=== PATIENT | female | born 1955 | race Caucasian/White ===

== ENCOUNTER → 2017-01-12 | Outpatient (CLI) | payer BC ==
[~2017-01-12] MED LIST: AC325T; ALPR.25T PO; ALPR1T PO; AMIT10TA6 PO; DICL100G18 TP; DICY10CA12 PO; ESTR0.9T PO; ESTR1.256 PO; FEXO180T PO; LEVO50TA6 PO; LEVO75TA6 PO; LORA10TA7 PO; METO-387 PO; METOPROLOL; NITR-65 PO; ONDA-42 SL; PNT40TEC; PNT40TEC PO; POTA10CA43 PO; PROM12.53 RC; SUMA1TAB PO; TRAM-42 PO; [UNRECOGNIZED DRUG - OTHER]
--- NOTE | 2017-01-16 19:01 | Diagnostic Imaging Report ---
EXAMINATION: Digital Mammogram bilateral screening with tomosynthesis. INDICATION: Screening. COMPARISON: This study was compared to the prior exams of 01/14/2016 01/06/2015, and 11/06/2007. At this time, there are no current complaints. The current study was also evaluated with a Computer Aided Detection (CAD) system. FINDINGS: The fibroglandular tissue in both breasts is heterogeneously dense. This does limit the sensitivity of this exam. Overall, there does not appear to have been any significant change when compared to the prior study. No primary or secondary sign of malignancy is noted. 3D tomographic images fail to show any sign of malignancy. IMPRESSION: There is no radiographic evidence for malignancy. ACR BI-RADS Category 1: Negative. Result letter will be mailed to the patient. Note: At least 10% of breast cancer is not imaged by mammography. Dictated by: Dictated on workstation # [id number]
== END ==
LOC: RAD 10:33
PROVIDERS: ATTEND Obstetrics & Gynecology Female Pelvic Medicine and Reconstructive Surgery
DX: Z12.31 Encounter for screening mammogram for malignant neoplasm of breast (principal)
CPT/HCPCS: 77067

== ENCOUNTER → 2017-01-19 | Outpatient (CLI) | payer BC ==
[~2017-01-19] MED LIST changes: +METO-270 PO; -METO-387 PO
--- NOTE | 2017-01-19 20:04 | Diagnostic Imaging Report ---
INDICATION: Screening for osteoporosis. EXAMINATION: DEXA scan. The bone mineral density of the hips and spine was measured. COMPARISON: There are no prior studies available for comparison. FINDINGS: The T-score for the spine is -0.7. The T-score for the left hip is -0.4 and for the right hip is -1.0. All of these T-scores are within normal limits although the T-score for the right hip is at the lowest end of normal. IMPRESSION: The bone mineral density of the hips and spine is within normal limits. Dictated by: Dictated on workstation # [id number]
== END ==
LOC: RAD 10:29
PROVIDERS: ATTEND Obstetrics & Gynecology Female Pelvic Medicine and Reconstructive Surgery
DX: Z13.820 Encounter for screening for osteoporosis (principal)
CPT/HCPCS: 77080

== ENCOUNTER → 2018-01-10 | Outpatient (CLI) | payer BC ==
[~2018-01-10] MED LIST changes: -METO-270 PO; +METO-387 PO
--- NOTE | 2018-01-10 11:40 | Diagnostic Imaging Report ---
INDICATION: Routine screening. Comparison is made with prior exam from 01/12/2017 and 01/14/2016. 2-D and 3-D bilateral screening mammography was performed with a Computer Aided Detection (CAD) system. FINDINGS: Both breasts remain heterogeneously dense, limiting the sensitivity of mammography. The parenchymal pattern is stable. There are benign calcifications bilaterally. No spiculated mass or malignant appearing microcalcifications are seen. Axillae are unremarkable. IMPRESSION: No mammographic features suspicious for malignancy are identified. ACR BI-RADS Category 2: Benign findings. Result letter will be mailed to the patient. Note: At least 10% of breast cancer is not imaged by mammography. Dictated by: Dictated on workstation # [id number]
== END ==
LOC: RAD 09:58
PROVIDERS: ATTEND Obstetrics & Gynecology Female Pelvic Medicine and Reconstructive Surgery
DX: Z12.31 Encounter for screening mammogram for malignant neoplasm of breast (principal)
CPT/HCPCS: 77067

== ENCOUNTER → 2019-02-19 | Outpatient (CLI) | payer MEDICARE, OTHER ==
[2019-02-19 09:18] VITALS: BP 127/88
--- NOTE | 2019-02-20 13:29 | STRESS TEST ---
DATE OF SERVICE: 02/19/2019 RESTING AND POST EXERCISE TECHNETIUM-99M TETROFOSMIN SPECT CT IMAGING ORDERING PHYSICIAN: Dr. Chase. PRIMARY PHYSICIAN: Dr. Johnson. CLINICAL DIAGNOSIS: Chest discomfort. Baseline images were carried out after injection of 10.4 mCi of technetium-99m Tetrofosmin. Subsequently, exercise was carried out on a treadmill. Terry protocol was employed. Heart rate response to exercise was normal. Blood pressure response to exercise was normal. At peak exercise, there was approximately 1.[address] segment depression. The test was stopped on account of fatigue. There was no significant arrhythmia. The patient did not report chest discomfort. After the patient had attained 85% of maximum predicted heart rate, 27.9 mCi of technetium-99m Tetrofosmin were injected and the exercise was continued for another minute. The patient exercised for 9 minutes in the Terry protocol and attained 96% of maximum predicted heart rate and 7.3 METS of workload. Review of images at rest and following stress does not indicate significant perfusion defect consistent with myocardial ischemia or infarction. Gated images show normal global left ventricular systolic function with normal regional wall motion. Left ventricular ejection fraction is calculated to be 71%. Left ventricular end diastolic volume is 25 mL. TID is absent (0.91). CONCLUSIONS: 1. No evidence of any significant myocardial ischemia or infarction is seen. 2. Normal regional wall motion. 3. Normal global left ventricular systolic function with a calculated ejection fraction of 71%. Job ID: [id number] DocumentID: [id number] Dictated Date: 02/20/2019 10:06:02 Production Intern Date: 02/20/2019 13:27:30 Dictated By: SONIA CHASE MD, MA, FACP, FACC,
== END ==
LOC: CARD 07:30
PROVIDERS: ATTEND Internal Medicine Cardiovascular Disease
DX: I10 Essential (primary) hypertension (principal); R73.03 Prediabetes; R07.89 Other chest pain; Z86.79 Personal history of other diseases of the circulatory system
CPT/HCPCS: 78452; 93017

== ENCOUNTER → 2019-02-20 | Outpatient (CLI) | payer MEDICARE, OTHER ==
[~2019-02-20] VITALS: Ht 160 cm; Wt 73.0 kg
[~2019-02-20] MED LIST changes: +CATHETER FLUSH 10 ML SYR IV PRN
== END ==
LOC: CARD 08:56
PROVIDERS: ATTEND Internal Medicine Cardiovascular Disease
DX: I07.1 Rheumatic tricuspid insufficiency (principal); I10 Essential (primary) hypertension; R73.03 Prediabetes; Z86.79 Personal history of other diseases of the circulatory system
CPT/HCPCS: 93306

== ENCOUNTER → 2019-04-01 | Outpatient (CLI) | payer MEDICARE, OTHER ==
[~2019-04-01] MED LIST changes: -CATHETER FLUSH 10 ML SYR IV PRN
--- NOTE | 2019-04-01 10:24 | Diagnostic Imaging Report ---
PATIENT HISTORY: DYSPNEA,UNSPECIFIED,OTHER ABNORMALITIES OF BREATHING. TECHNIQUE: Two views of the chest. COMPARISON: 06/30/2010. FINDINGS: Lung volumes are normal. No focal consolidation is seen. There is no pleural effusion or pneumothorax. The cardiac silhouette is normal in size. IMPRESSION: No acute pulmonary abnormality seen. Dictated by: Dictated on workstation # [id number]
== END ==
LOC: RAD 09:11
PROVIDERS: ATTEND Internal Medicine Critical Care Medicine
DX: R06.00 Dyspnea, unspecified (principal); R06.89 Other abnormalities of breathing
CPT/HCPCS: 71046

== ENCOUNTER 2019-04-22 14:28 | Outpatient (CLI) | payer MEDICARE, OTHER ==
[~2019-04-22 14:28] MED LIST changes: -RT-ALBUTEROL SULF 2.5 MG/3 ML PRE-MIX VIAL INH ONE
== END 2019-04-22 15:05 | disposition home or self-care (01) ==
LOC: SLEEP 14:28
PROVIDERS: ATTEND Internal Medicine Critical Care Medicine
DX: R06.89 Other abnormalities of breathing (principal); R06.83 Snoring; R06.00 Dyspnea, unspecified

== ENCOUNTER → 2019-04-22 | Outpatient (CLI) | payer MEDICARE, OTHER ==
[~2019-04-22] MED LIST changes: +RT-ALBUTEROL SULF 2.5 MG/3 ML PRE-MIX VIAL INH ONE
== END ==
LOC: RT 14:30
PROVIDERS: ATTEND Internal Medicine Critical Care Medicine
DX: R06.00 Dyspnea, unspecified (principal); R06.89 Other abnormalities of breathing
CPT/HCPCS: 94060; 94726; 94729

== ENCOUNTER → 2019-05-08 | Outpatient (CLI) | payer MEDICARE, OTHER ==
[~2019-05-08] MED LIST changes: +CATHETER FLUSH 10 ML SYR IV PRN; +HOLD METFORMIN - RECEIVED CONTRAST 20 ML VIAL IV SCH; +IOHEXOL 350 MG/ML 100 ML (OMNIPAQUE 350) VIAL IV ONE; +NS 100 ML (IVPB) BAG IV ONE
[2019-05-08 11:37] LABS: BUN/CREATININE RATIO 20; CREATININE SERUM 0.71 MG/DL (0.60-1.30); GFR ESTIMATED > 60
--- NOTE | 2019-05-08 12:45 | Diagnostic Imaging Report ---
PROCEDURE: CT angiography of the chest with contrast. TECHNIQUE: Multiple contiguous axial images were obtained through the chest after uneventful bolus administration of intravenous contrast. 3D reconstructed CTA MIP acquisitions were also performed. Auto Exposure Controls were utilized during the CT exam to meet ALARA standards for radiation dose reduction. INDICATION: Chest pain and dyspnea. COMPARISON: No prior studies are available for comparison. FINDINGS: Evaluation of the pulmonary arterial system is without evidence of thromboembolism. No filling defects are seen within central, lobar, or segmental branches. The thoracic aorta is normal caliber. No dissection is seen. No pericardial or pleural fluid is detected. No definite axillary lymphadenopathy is identified. No significant mediastinal lymphadenopathy is seen. There are mildly prominent lymph nodes in the [place] bilaterally, nonspecific, largest on the left measuring 8 mm. Minimal patchy density in the right upper lobe is identified consistent with minimal infiltrate. Dependent atelectasis in both lower lobes is noted. No mass is identified. The upper abdomen is unremarkable apart from low density within the right lobe of the liver measuring 11 mm, too small to characterize. IMPRESSION: 1. No evidence of pulmonary embolism or thoracic aortic dissection. 2. Minimal patchy right upper lobe infiltrate. Dictated by: Dictated on workstation # [id number]
--- NOTE | 2019-05-08 13:21 | Diagnostic Imaging Report ---
PROCEDURE: US Venous Lower Ext Crow. TECHNIQUE: Multiple real-time grayscale images were obtained over the lower extremities in various projections, bilaterally. Additional duplex Doppler and color Doppler images were also obtained. INDICATION: Leg swelling, dyspnea. TECHNIQUE: Grayscale with color-flow and Doppler waveform evaluation of the bilateral lower extremity deep venous systems. CORRELATION STUDY: None FINDINGS: Color and grayscale sonographic images demonstrate no intraluminal defect within the visualized portion of the common femoral, superficial femoral and/or popliteal veins to suggest thrombus formation. These vessels demonstrate normal response to compression and augmentation. No soft tissue fluid collection. IMPRESSION: 1. Negative for deep venous thrombosis of either leg. Dictated by: Dictated on workstation # [id number]
== END ==
LOC: RAD 11:08
PROVIDERS: ATTEND Nurse Practitioner Family
DX: M79.89 Other specified soft tissue disorders (principal); J45.909 Unspecified asthma, uncomplicated; Z86.79 Personal history of other diseases of the circulatory system
CPT/HCPCS: 36415; 71275; 82565; 84520; 93970

== ENCOUNTER → 2019-05-14 | Outpatient (CLI) | payer MEDICARE, OTHER ==
[~2019-05-14] MED LIST changes: -CATHETER FLUSH 10 ML SYR IV PRN; -HOLD METFORMIN - RECEIVED CONTRAST 20 ML VIAL IV SCH; -IOHEXOL 350 MG/ML 100 ML (OMNIPAQUE 350) VIAL IV ONE; -NS 100 ML (IVPB) BAG IV ONE
--- NOTE | 2019-05-14 13:18 | Diagnostic Imaging Report ---
INDICATION: Postmenopausal screening for osteoporosis. COMPARISON: 01/19/2017. FINDINGS: AP Spine L1-L4: [BMD (g/cm2): 1.101] [T-Score: -0.8] [Z-Score: 0.5] [BMD Previous: 1.121] [BMD % Change: -1.8] LT Hip Neck: [BMD (g/cm2): 0.812] [T-Score: -1.6] [Z-Score: -0.3] LT Hip Total: [BMD (g/cm2):0.943] [T-Score:-0.5] [Z-Score: 0.5] [BMD Previous: 0.953] [BMD % Change: -1.0] RT Hip Neck: [BMD (g/cm2):0.865] [T-Score:-1.2] [Z-Score:0.0] RT Hip Total: [BMD (g/cm2):0.880] [T-score:-1.0] [Z-Score:0.0] [BMD Previous:0.877] [BMD % Change:0.3] *Indicates significant change from prior examination based on 95% confidence level. World Health Organization criteria for BMD interpretation classify patients as Normal (T-score at or above -1.0), Osteopenic (T-score between -1.0 and -2.5) or Osteoporotic (T-score at or below -2.5). LIMITATIONS AND MODIFICATION: None. FRACTURE RISK (FRAX SCORE): The ten year probability of (%): Major Osteoporotic Fracture: [NA] Hip Fracture: [NA] IMPRESSION: 1. Normal bone mineral density. 2. No significant change in bone mineral density since prior examination. 3. See below National Osteoporosis Foundation guidelines on when to potentially initiate pharmacologic therapy. Based on the National Osteoporosis Foundation Guidelines, pharmacologic treatment should be initiated in any of the following, unless clinical conditions suggest otherwise: * Any patient with prior fragility fracture of the hip or vertebrae. A spine fracture indicates 5X risk for subsequent spine fracture and 2X risk for subsequent hip fracture. * Osteoporosis (T-score <-2.5). * Postmenopausal women and men age 50 and older with low bone mass/osteopenia (T-score between -1.0 and -2.5) by DXA and 10-year major osteoporotic fracture greater than 20% or a 10-year probability of hip fracture greater than 3%. These fracture risks are supplied above in the FRAX score, if applicable. * Clinician judgement and/or patient preferences may indicate treatment for people with 10-year fracture probabilities above or below these levels. Dictated by: Dictated on workstation # [id number]
== END ==
LOC: RAD 12:12
PROVIDERS: ATTEND Family Medicine
DX: Z13.820 Encounter for screening for osteoporosis (principal); M85.80 Other specified disorders of bone density and structure, unspecified site; Z78.0 Asymptomatic menopausal state
CPT/HCPCS: 77080

== ENCOUNTER 2019-08-12 23:12 | Emergency (ER) | payer MEDICARE, OTHER ==
[~2019-08-12] VITALS: Ht 160 cm; Wt 73.5 kg
[~2019-08-12 23:12] MED LIST changes: -METO-387 PO; +MTP25TSR PO
[2019-08-13 00:22] LABS: BASOPHILS % (AUTO) 1 % (0-10); EOSINOPHILS # (AUTO) 0.3 10^3/uL (0.0-0.3); EOSINOPHILS % (AUTO) 4 % (0-10); HEMATOCRIT 42 % (35-52); HEMOGLOBIN 13.6 G/DL (11.5-16.0); LYMPHOCYTES # (AUTO) 1.8 X 10^3 (1.0-4.0); LYMPHOCYTES % (AUTO) 32 % (12-44); MEAN CORPUSCULAR HEMOGLOBIN 27 PG (25-34); MEAN CORPUSCULAR HGB CONC 33 G/DL (32-36); MEAN CORPUSCULAR VOLUME 82 FL (80-99); MEAN PLATELET VOLUME 10.3 FL (7.4-10.4); MONOCYTES # (AUTO) 0.5 X 10^3 (0.0-1.0); MONOCYTES % (AUTO) 9 % (0-12); NEUTROPHILS # (AUTO) 3.1 X 10^3 (1.8-7.8); NEUTROPHILS % (AUTO) 54 % (42-75); PLATELET COUNT 223 10^3/uL (130-400); RED CELL DISTRIBUTION WIDTH 15.6 % (10.0-14.5); WHITE BLOOD COUNT 5.7 10^3/uL (4.3-11.0)
[2019-08-13 00:26] LABS: BILIRUBIN,URINE NEGATIVE (NEGATIVE); CLARITY,URINE CLEAR; COLOR,URINE YELLOW; GLUCOSE, URINE (UA) NEGATIVE (NEGATIVE); KETONES,URINE NEGATIVE (NEGATIVE); LEUKOCYTE ESTERASE ,URINE 1+ (NEGATIVE); NITRITE,URINE NEGATIVE (NEGATIVE); PH,URINE 5.5 (5-9); PROTEIN,URINE NEGATIVE (NEGATIVE)
[2019-08-13 00:39] LABS: AMORPHOUS SEDIMENT,UR RARE AMOR URATES /LPF; BACTERIA,URINE TRACE /HPF; RBC,URINE 0-2 /HPF
[2019-08-13 00:43] LABS: ALANINE AMINOTRANSFERASE 15 U/L (0-55); ALBUMIN 4.2 GM/DL (3.2-4.5); ALKALINE PHOSPHATASE 65 U/L (40-136); BILIRUBIN,TOTAL 0.2 MG/DL (0.1-1.0); BUN/CREATININE RATIO 22; CALCIUM 9.7 MG/DL (8.5-10.1); CARBON DIOXIDE 26 MMOL/L (21-32); CHLORIDE 105 MMOL/L (98-107); CREATININE SERUM 0.82 MG/DL (0.60-1.30); GFR ESTIMATED > 60; GLUCOSE 103 MG/DL (70-105); POTASSIUM 3.8 MMOL/L (3.6-5.0); SODIUM 142 MMOL/L (135-145); TOTAL PROTEIN 7.3 GM/DL (6.4-8.2)
--- NOTE | 2019-08-13 01:15 | ED Abdominal Pain ---
General Chief Complaint: Abdominal/GI Problems Stated Complaint: POSS ABD HERNIA Nursing Triage Note: Pt ambulates to RM 9 with c/o LLQ pain. Pt states she is aware she has a hernia but was told to seek care if she doesn't have relief. Sepsis Screen: No Definite Risk Source of Information: Patient Exam Limitations: No Limitations History of Present Illness Date Seen by Provider: Aug 12, 2019 Time Seen by Provider: 23:48 Initial Comments This 63-year-old woman presents to the emergency room with left lower quadrant pain that started around 20:00. She has had some less intense pain in the same area bothering her last week. She notes a hernia in this location identified on prior CT. She has been monitoring the hernia and is concerned about the increased pain today. Pain is mild now, especially with lying flat. However, it was worse earlier, especially with standing. She has had 3 soft bowel movements today. She has had some mild nausea without vomiting. She is afebrile. She denies melena or hematochezia. She does have history of colon r esection secondary to diverticulitis. Allergies and Home Medications Allergies Coded Allergies: latex (Unverified Allergy, Mild, HIVES, 05/26/06) Quinolones (Verified Allergy, Unknown, 10/05/06) Home Medications Levothyroxine Sodium 50 Mcg Tablet, 50 MCG PO DAILY, (Reported) Loratadine 10 Mg Tablet, 10 MG PO DAILY, (Reported) Metoprolol Succinate 25 Mg Tab.er.24h, 25 MG PO DAILY, (Reported) Pantoprazole Sod 40 Mg Tab, 40 MG PO DAILY, (Reported) Tramadol HCl 50 Mg Tablet, 50 MG PO Q6H PRN for PAIN Prescribed by: BRYAN TORRES on 04/21/15 1120 Patient Home Medication List Home Medication List Reviewed: Yes Review of Systems Review of Systems Constitutional: no symptoms reported EENTM: No Symptoms Reported Respiratory: No Symptoms Reported Cardiovascular: No Symptoms Reported Gastrointestinal: See HPI Genitourinary: No Symptoms Reported Musculoskeletal: no symptoms reported Skin: no symptoms reported Psychiatric/Neurological: No Symptoms Reported Endocrine: No Symptoms Reported Hematologic/Lymphatic: No Symptoms Reported Past Gzaycwp-Fdzbxo-Bfoetr Hx Past Med/Social Hx: Reviewed Nursing Past Med/Soc Hx Patient Social History Alcohol Use: Denies Use Recreational Drug Use: No Smoking Status: Never a Smoker Recent Foreign Travel: No Contact w/Someone Who Travel: No Recent Infectious Disease Expo: No Recent Hopitalizations: No Physical Abuse: No Sexual Abuse: No Mistreated: No Fear: No Immunizations Up To Date Date of Influenza Vaccine: Mar 09, 2015 Seasonal Allergies Seasonal Allergies: Yes Past Medical History Surgeries: Yes (pelvic repair after hyst) Abdominal, Adenoidectomy, Bowel Surgery (partial colon resection for treatment of diverticulitis), Breast, Cardiac, Gallbladder, Hysterectomy, Orthopedic, Tonsillectomy, Tubal Ligation Respiratory: No Cardiac: Yes (SVT--HAD ABLATION) Neurological: Yes Headaches /Migraines Reproductive Disorders: Yes Gastrointestinal: Yes (CYST ON LIVER AND A BLOOD SPOT ON LIVER) Abdominal Hernia, Gastroesophageal Reflux, Diverticulosis, Hiatal Hernia Musculoskeletal: Yes (spinal stenosis, sees Dr. Johnson) Arthritis Endocrine: Yes Hypothyroidsim Cancer: No Psychosocial: No Integumentary: No Blood Disorders: Yes Family Medical History Heart Disease, Cancer, Psychiatric Problems Physical Exam Vital Signs Vital Signs - First Documented 08/12/19 23:26 Temp 36.6 Pulse 75 Resp 20 B/P (MAP) 152/88 (109) Pulse Ox 99 O2 Delivery Room Air Capillary Refill : Less Than 3 Seconds Height/Weight/BMI Height: 5'3" Weight: 170lbs. oz. 77.435198ml; 28.00 BMI Method:Stated General Appearance: WD/WN, no apparent distress HEENT: PERRL/EOMI, normal ENT inspection Neck: normal inspection Respiratory: lungs clear, normal breath sounds, no respiratory distress, no accessory muscle use Cardiovascular: regular rate, rhythm, no edema Gastrointestinal: normal bowel sounds, soft, tenderness (left lower quadrant), hernia (suspected hernia in the left lower quadrant. Bulge is soft and mildly tender.) Extremities: normal inspection, no pedal edema Neurologic/Psychiatric: dividend clerk II-XII nml as tested, no motor/sensory deficits, alert, normal mood/affect, oriented x 3 Skin: normal color, warm/dry Progress/Results/Core Measures Results/Orders Lab Results Laboratory Tests Test 08/13/19 00:12 08/13/19 00:13 Range/Units Urine Color YELLOW Urine Clarity CLEAR Urine pH 5.5 5-9 Urine Specific [place] 1.015 L 1.016-1.022 Urine Protein NEGATIVE NEGATIVE Urine Glucose (UA) NEGATIVE NEGATIVE Urine Ketones NEGATIVE NEGATIVE Urine Nitrite NEGATIVE NEGATIVE Urine Bilirubin NEGATIVE NEGATIVE Urine Urobilinogen 0.2 < = 1.0 MG/DL Urine Leukocyte Esterase 1+ H NEGATIVE Urine RBC (Auto) TRACE-I NEGATIVE Urine RBC 0-2 /HPF Urine WBC 2-5 /HPF Urine Crystals PRESENT H /LPF Urine Amorphous Sediment RARE [place] URATES H /LPF Urine Bacteria TRACE /HPF Urine Casts NONE /LPF Urine Mucus NEGATIVE /LPF Urine Culture Indicated NO White Blood Count 5.7 4.3-11.0 10^3/uL Red Blood Count 5.14 4.35-5.85 10^6/uL Hemoglobin 13.6 11.5-16.0 G/DL Hematocrit 42 35-52 % Mean Corpuscular Volume 82 80-99 FL Mean Corpuscular Hemoglobin 27 25-34 PG Mean Corpuscular Hemoglobin Concent 33 32-36 G/DL Red Cell Distribution Width 15.6 H 10.0-14.5 % Platelet Count 223 130-400 10^3/uL Mean Platelet Volume 10.3 7.4-10.4 FL Neutrophils (%) (Auto) 54 42-75 % Lymphocytes (%) (Auto) 32 12-44 % Monocytes (%) (Auto) 9 0-12 % Eosinophils (%) (Auto) 4 0-10 % Basophils (%) (Auto) 1 0-10 % Neutrophils # (Auto) 3.1 1.8-7.8 X 10^3 Lymphocytes # (Auto) 1.8 1.0-4.0 X 10^3 Monocytes # (Auto) 0.5 0.0-1.0 X 10^3 Eosinophils # (Auto) 0.3 0.0-0.3 10^3/uL Basophils # (Auto) 0.0 0.0-0.1 10^3/uL Sodium Level 142 135-145 MMOL/L Potassium Level 3.8 3.6-5.0 MMOL/L Chloride Level 105 98-107 MMOL/L Carbon Dioxide Level 26 21-32 MMOL/L Anion Gap 11 5-14 MMOL/L Blood Urea Nitrogen 18 7-18 MG/DL Creatinine 0.82 0.60-1.30 MG/DL Estimat Glomerular Filtration Rate > 60 BUN/Creatinine Ratio 22 Glucose Level 103 70-105 MG/DL Calcium Level 9.7 8.5-10.1 MG/DL Corrected Calcium 9.5 8.5-10.1 MG/DL Total Bilirubin 0.2 0.1-1.0 MG/DL Aspartate Amino Transf (AST/SGOT) 17 5-34 U/L Alanine Aminotransferase (ALT/SGPT) 15 0-55 U/L Alkaline Phosphatase 65 40-136 U/L C-Reactive Protein High Sensitivity 0.52 H 0.00-0.50 MG/DL Total Protein 7.3 6.4-8.2 GM/DL Albumin 4.2 3.2-4.5 GM/DL My Orders Orders - BRYAN SANTIAGO MD Cbc With Automated Diff (08/13/19 00:00) Comprehensive Metabolic Panel (08/13/19 00:00) Hs C Reactive Protein (08/13/19 00:00) Ua Culture If Indicated (08/13/19 00:00) Ed Iv/Invasive Line Start (08/13/19 00:00) Vital Signs/I&O 08/12/19 08/13/19 23:26 01:26 Temp 36.6 36.6 Pulse 75 75 Resp 20 20 B/P (MAP) 152/88 (109) 145/85 (109) Pulse Ox 99 99 O2 Delivery Room Air Blood Pressure Mean: 109 Progress Progress Note : Progress Note Labs were unremarkable. Patient does not have any symptoms of obstruction. Arrangements were made for ultrasound to be obtained tomorrow morning. Departure Impression Primary Impression: Left lower quadrant pain Disposition: HOME, SELF-CARE Condition: Improved Departure-Patient Inst. Decision time for Depature: 01:13 Referrals: ARVIND MORROW DO (PCP/Family) Primary Care Physician Patient Instructions: Abdominal Hernia (DC), Acute Abdomen (Belly Pain), Adult (DC) Add. Discharge Instructions: Observe a clear liquid diet until your ultrasound is performed. Return to the hospital at 7:30 tomorrow morning. Bring your ultrasound order form. Stay at the hospital until you received further instructions after results are called to the ER doctor. Return to care if you have worsening symptoms including inability to produce gas or bowel movements, escalating pain, fever, firmness of your hernia that will not reduce, etc. You may continue taking Tylenol (acetaminophen) as needed for pain. If necessary, you may add ibuprofen up to 400 mg 2 or 3 times a day sparingly to better control your pain. All discharge instructions reviewed with patient and/or family. Voiced understanding. Copy Copies To 1: ARVIND MORROW JOSHUA T MD Aug 13, 2019 01:15
[2019-08-13 01:26] VITALS: BP 145/85
--- OUTSIDE RECORDS SUMMARY | 2019-08-15 06:03 | XMS REPORT | CCD ---
Author Author Fay Johnson D.O. 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 Name Role Phone Yaima Johnson D.O., PP Unavailable CCM Unavailable Summary Purpose Interface Exchange Insurance Providers Payer name Policy type / Coverage type Covered democrat ID Effective Begin Date Effective End Date WPS MEDIC[place] PART B [place] Medicare Part B [id number] 2018 Unknown [facility] Medicare Part B [id number] 2018 Unknown Family History Family History data not found Social History Social History Element Codes Description Effective Dates Marital status Unknown 05/16/[address]: [id number] Never smoker 04/05/2011 Allergies, Adverse Reactions, Alerts Substance Reaction Codes Entered Date Inactivated Date Status _ Unknown 11/23/2009 No Inactive Date Active * NO KNOWN FOOD ALLERGIES Unknown 11/23/2009 No Inactiv e Date Active _ Unknown 11/23/2009 No Inactive Date Active Problems Condition Codes Effective Dates Condition Status Asthma ICD-9: 493.90 ICD-10: J45.909 07/03/2019 Active Hilar lymphadenopathy ICD-9: 785.6 ICD-10: R59.0 07/03/2019 Active Hyperglycemia, unspecified ICD-9: 790.29 ICD-10: R73.9 02/17/2017 Active Hypothyroidism ICD-9: 244.9 ICD-10: E03.9 08/05/2014 Active PNEUMOCOCCAL VACCINE ICD-9: V03.82 ICD-10: Z23 07/03/2019 Active Essential (primary) hypertension ICD-9: 401.9 ICD-10: I10 03/28/2017 Active Osteopenia ICD-9: 733.90 ICD-10: M85.80 04/15/2019 Active Postmenopausal ICD-9: V49.81 ICD-10: Z78.0 04/15/2019 Active Low back pain ICD-9: 724.2 ICD-10: M54.5 01/14/2019 Active Muscle spasm of back ICD-9: 724.8 ICD-10: M62.830 01/16/2019 Active Pain in thoracic spine ICD-9: 724.1 ICD-10: M54.6 03/05/2014 Active Hematuria, unspecified ICD-9: 599.70 ICD-10: R31.9 11/01/2018 Active Left lower quadrant pain ICD-9: 789.04 ICD-10: R10.32 01/09/2019 Active Encounter for general adult medical examination withou t abnormal findings ICD-9: V70.9 ICD-10: Z00.00 11/21/2018 Active Other cervical disc degeneration, unspecified cervical region ICD-9: 722.4 ICD-10: M50.30 10/04/2018 Active Other fatigue ICD-9: 780.79 ICD-10: R53.83 11/22/2016 Active Cervicalgia ICD-9: 723.1 ICD-10: M54.2 03/28/2017 Active Impaired fasting glucose ICD-9: 790.29 ICD-10: R73.01 11/23/2016 Active Abrasion, left lower leg, sequela ICD-9: 906.2 ICD-10: S80.812S 06/21/2018 Active Radiculopathy, lumbosacral region ICD-9: 724.4 ICD-10: M54.17 04/25/2016 Active Urinary tract infection, site not specified ICD-9: 599 .0 ICD-10: N39.0 06/13/2018 Active Other dorsalgia ICD-9: 724.5 ICD-10: M54.89 05/31/2018 Active FLU VACCINE ICD-9: V04.81 ICD-10: Z23 04/21/2016 Active Other seasonal allergic rhinitis ICD-9: 477.9 ICD-10: J30.2 02/06/2018 Active Laceration of blood vessel of right index finger, init ial encounter ICD-9: 903.5 ICD-10: S65.510A 12/28/2017 Active VACCINE FOR TDAP ICD-9: V06.1 ICD-10: Z23 12/28/2017 Active Tinnitus, bilateral ICD-9: 388.31 ICD-10: H93.13 12/18/2017 Active Pulsatile tinnitus, bilateral ICD-9: 388.30 ICD-10: H93.A3 12/11/2017 Active VACCIN FOR DISEASE NEC (HPV or Zostavax) ICD-9: V05.8 ICD-10: Z23 10/04/2017 Active Gastro-esophageal reflux disease without esophagitis I CD-9: 530.81 ICD-10: K21.9 11/04/2014 Active Pain in right knee ICD-9: 719.46 ICD-10: M25.561 07/28/2016 Active Irritant contact dermatitis, unspecified cause ICD-9: 692.9 ICD-10: L24.9 03/28/2017 Active Nonscarring hair loss, unspecified ICD-9: 704.00 ICD-10: L65.9 09/26/2016 Active Other general symptoms and signs ICD-9: 780.99 ICD-10: R68.89 11/22/2016 Active 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 12/08/2015 Active Other specified diseases of liver ICD-9: 573.8 ICD-10: K76.89 12/08/2015 Active Influenza due to identified novel influenza A virus wi th other manifestations ICD-9: 488.09 ICD-10: J09.X9 09/12/2016 Active Dermatitis, unspecified ICD-9: 692.9 ICD-10: L30.9 07/28/2016 Active Incisional hernia without obstruction or gangrene ICD- 9: 553.21 ICD-10: K43.2 04/25/2016 Active Other fecal abnormalities ICD-9: 792.1 ICD-10: R19.5 01/03/2016 Active Irritant contact dermatitis due to detergents ICD-9: 6 92.0 ICD-10: L24.0 12/08/2015 Active Hepatomegaly, not elsewhere classified ICD-9: 789.1 ICD-10: R16.0 11/25/2015 Active Other specified disorders of kidney and ureter ICD-9: 591 ICD-10: N28.89 11/25/2015 Active Precordial pain ICD-9: 786.50 ICD-10: R07.2 09/10/2015 Active Nausea ICD-9: 787.02 ICD-10: R11.0 07/19/2015 Active Pain in left elbow ICD-9: 719.42 ICD-10: M25.522 05/03/2015 Active Contusion of left lower leg, sequela ICD-9: 906.3 ICD-10: S80.12XS 04/22/2015 Active Pleurodynia ICD-9: 786.50 ICD-10: R07.81 04/23/2015 Active Constipation, unspecified ICD-9: 564.00 ICD-10: K59.00 03/20/2013 Active Unspecified abdominal pain ICD-9: 789.00 ICD-10: R10.9 03/24/2015 Active Ventral hernia without obstruction or gangrene ICD-9: 553.20 ICD-10: K43.9 03/23/2015 Active Chondrocostal junction syndrome [Tietze] ICD-9: 733.6 ICD-10: M94.0 03/04/2015 Active Generalized abdominal pain ICD-9: 789.00 ICD-10: R10.84 03/05/2015 Active DISTURBANCE OF SKIN SENSATION (Paresthesia) ICD-9: 782.0 11/2011 Active DIVERTICULITIS, COLONIC ICD-9: 562.11 02/19/2015 Active Diaphoresis ICD-9: 780.8 12/24/2014 Active ABDOMINAL PAIN ICD-9: 789.00 11/26/2014 Active Contusion of leg ICD-9: 924.5 11/25/2014 Active GERD ICD-9: 530.81 11/04/2014 Active IBS ICD-9: 564.1 11/04/2014 Active Headache ICD-9: 784.0 09/01/2014 Active Leg pain ICD-9: 729.5 09/01/2014 Active HYPOTHYROIDISM ICD-9: 244.9 08/05/2014 Active DYSURIA ICD-9: 788.1 07/10/2014 Active Elevated liver enzymes ICD-9: 790.5 07/03/2014 Active SINUSITIS, ACUTE ICD-9: 461.9 06/02/2014 Active VAGINITIS ICD-9: 623.5 06/02/2014 Active Leg cramps ICD-9: 729.82 05/22/2014 Active ALLERGIC RHINITIS ICD-9: 477.9 04/08/2014 Active HYPERTENSION ICD-9: 401.9 04/08/2014 Active PAIN, LOWER BACK ICD-9: 724.2 04/08/2014 Active COUGH ICD-9: 786.2 ICD-10: R05 03/05/2014 Active Thoracic back pain ICD-9: 724.1 03/05/2014 Active Constipation ICD-9: 564.00 03/20/2013 Active Plantar fasciitis ICD-9: 728.71 02/12/2013 Active Muscle spasm ICD-9: 728.85 11/05/2012 Active Skin lesion ICD-9: 709.9 11/05/2012 Active Cervicalgia ICD-9: 723.1 10/04/2012 Active Hypertension Unknown 09/24/2012 Active Lateral epicondylitis ICD-9: 726.32 05/10/2012 Active Wrist pain ICD-9: 719.43 05/10/2012 Active DYSPHAGIA NEC ICD-9: 787.29 03/07/2012 Active Enthesopathy of the wrist and carpus ICD-9: 726.4 03/07/2012 Active MALAISE AND FATIGUE ICD-9: 780.79 12/20/2011 Active INSECT BITE HIP/LEG ICD-9: 916.4 11/22/2011 Active MIGRAINE NOS/NOT INTRCBL ICD-9: 346.90 07/06/2011 Active Rectal fissure ICD-9: 565.0 07/06/2011 Active TMJ arthritis ICD-9: 524.69 07/06/2011 Active Onychomycosis ICD-9: 110.1 05/05/2011 Active PALPITATIONS ICD-9: 785.1 03/02/2011 Active Pulmonary arterial hypertension ICD-9: 416.8 03/02/2011 Active Hyperglycemia ICD-9: 790.29 01/14/2011 Active Chest pain ICD-9: 786.50 01/05/2011 Active HEMATURIA NOS ICD-9: 599.70 11/16/2010 Active LIPOMA ICD-9: 214.9 11/16/2010 Active Greater trochanteric bursitis ICD-9: 726.5 11/04/2010 Ac tive Tachycardia ICD-9: 785.0 11/04/2010 Active BRONCHITIS, ACUTE ICD-9: 466.0 07/23/2010 Active HEMATURIA ICD-9: 599.7 06/28/2010 Active Hoarseness of voice ICD-9: 784.42 05/12/2010 Active ACUTE LARYNGITIS W/OBSTRUCT ICD-9: 464.01 04/19/2010 Acti ve URINARY TRACT INFECTION ICD-9: 599.0 04/08/2010 Active ATROPHIC VAGINITIS ICD-9: 627.3 03/09/2010 Active CYSTITIS ICD-9: 595.9 03/09/2010 Active COUGH ICD-9: 786.2 11/23/2009 Active Medications Medication Codes Instructions Start Date Stop Date Status Fill Instructions Probiotic 10 billion cell capsule RxNorm: 6529610 1 Capsule(s) O ral QD 07/03/2019 No Stop Date Active clotrimazole-betamethasone 1 %-0.05 % topical cream RxNorm: 280729 1 Application Topical two times a day to rash prn--was supposed to be cream not lotion 07/03/2019 07/03/2019 Inactive cetirizine 10 mg tablet RxNorm: 9229111 1 Tablet(s) Oral QD 020 No Stop Date Active levothyroxine 50 mcg tablet RxNorm: 234115 1 Tablet(s) Oral QD 06/0612/20/2019 Active Macrobid 100 mg capsule RxNorm: 419717 1 Capsule(s) Oral two ti mes a day 04/12/2019 04/19/2019 Inactive Toprol XL 25 mg tablet,extended release RxNorm: 565166 1 Tablet (s) PO QD 03/13/2019 09/08/2019 Active Generic For:TOPROL X L 25MG TAB SA 12/21/2015 9:08:41 AM Mobic 7.5 mg tablet RxNorm: 654467 1 Tablet(s) PO QOD opposite days as aleve 11/21/2018 11/21/2018 Inactive dicyclomine 10 mg capsule RxNorm: 563539 1 Capsule(s) P O TID as needed for abdominal pain 08/23/2018 No Stop Date Active alprazolam 0.25 mg tablet RxNorm: 554160 1 Tablet(s) PO Q8H as needed for anxiety 08/10/2018 11/20/2018 Inactive [AttnRPh: Saving apply/adjudicate RxGRP:SG20 RxBIN:[id number] RxPCN: ID#:[id number]] levothyroxine 25 mcg tablet RxNorm: 692214 1 Tablet(s) PO QD replaces 50mcg dose 08/06/2018 10/04/2018 Inactive levothyroxine 25 mcg tablet RxNorm: 615688 1 Tablet(s) PO QD replaces 50mcg dose 08/06/2018 08/05/2018 Inactive levothyroxine 50 mcg tablet RxNorm: 421275 1 Tablet(s) PO QD 201808/05/2018 Inactive Generic For:*SYNTHROID 0.05M G TAB 08/09/2016 8:59:33 AM Mobic 7.5 mg tablet RxNorm: 794624 1 Tablet(s) PO QOD opposite days as aleve 07/10/2018 09/07/2018 Inactive Mobic 7.5 mg tablet RxNorm: 352463 1 Tablet(s) PO QD 07/10/201807/09 Inactive Toprol XL 25 mg tablet,extended release RxNorm: 587490 1 Tablet (s) PO QD 06/18/2018 03/12/2019 Inactive Generic For:TOPROL X L 25MG TAB SA 12/21/2015 9:08:41 AM amoxicillin 500 mg capsule RxNorm: 180498 1 Capsule(s) PO TID 06/0406/10/2018 Inactive amoxicillin 500 mg capsule RxNorm: 249647 1 Capsule(s) PO TID 06/0406/03/2018 Inactive Skelaxin 800 mg tablet RxNorm: 145271 1 Tablet(s) PO BI D as needed for muscle spasm 05/31/2018 No Stop Date Active levothyroxine 50 mcg tablet RxNorm: 462444 1 Tablet(s) PO QD 201707/25/2018 Inactive Generic For:*SYNTHROID 0.05M G TAB 08/09/2016 8:59:33 AM Toprol XL 25 mg tablet,extended release RxNorm: 962950 1 Tablet (s) PO QD 12/19/2017 06/16/2018 Inactive Generic For:TOPROL X L 25MG TAB SA 12/21/2015 9:08:41 AM ranitidine 150 mg tablet RxNorm: 611649 1 Tablet(s) PO BID 12/12/19 05/31/2018 Inactive levothyroxine 50 mcg tablet RxNorm: 797614 1 Tablet(s) PO QD TAKE 1 TABLET BY MOUTH EVERY DAY 08/03/2017 02/02/2018 Inactive Generic For:*SYN THROID 0.05MG TAB 08/09/2016 8:59:33 AM Singulair 10 mg tablet RxNorm: 090782 1 Tablet(s) PO QHS 07/11/2017 0 09/10/2017 Inactive dicyclomine 10 mg capsule RxNorm: 036936 1 Capsule(s) P O TID as needed for abdominal pain 06/08/2017 08/22/2018 Inactive ranitidine 150 mg tablet RxNorm: 031935 1 Tablet(s) PO BID 06/08/19 18 09/05/2017 Inactive Toprol XL 25 mg tablet,extended release RxNorm: 164258 1 Tablet (s) PO QD 06/08/2017 12/19/2017 Inactive Generic For:TOPROL X L 25MG TAB SA 12/21/2015 9:08:41 AM betamethasone dipropionate 0.05 % topical cream RxNorm: 2389 20 1 Application TOP QHS 03/28/2017 10/03/2018 Inactive levothyroxine 50 mcg tablet RxNorm: 458081 1 Tablet(s) PO QD TAKE 1 TABLET BY MOUTH EVERY DAY 02/03/2017 08/01/2017 Inactive Generic For:*SYN THROID 0.05MG TAB 08/09/2016 8:59:33 AM ranitidine 150 mg tablet RxNorm: 963263 1 Tablet(s) PO BID 12/16/19 17 06/08/2017 Inactive Toprol XL 25 mg tablet,extended release RxNorm: 675378 1 Tablet (s) PO QD 12/15/2016 06/08/2017 Inactive Generic For:TOPROL X L 25MG TAB SA 12/21/2015 9:08:41 AM ranitidine 150 mg tablet RxNorm: 808717 1 Tablet(s) PO BID 11/12/19 17 12/10/2016 Inactive ranitidine 75 mg tablet RxNorm: 635516 1 Tablet(s) PO QD 10/21/2016 0 11/10/2016 Inactive ranitidine 75 mg tablet RxNorm: 420039 1 Tablet(s) PO QD 10/21/2016 0 10/20/2016 Inactive Tamiflu 75 mg capsule RxNorm: 022884 1 Capsule(s) PO BID 09/12/2016 0 09/16/2016 Inactive Promethegan 25 mg rectal suppository RxNorm: 240126 1 S uppository RTL Q4H as needed 09/12/2016 03/27/2017 Inactive levothyroxine 50 mcg tablet RxNorm: 049320 TAKE 1 TABLET BY GIDEON EVERY DAY 08/09/2016 02/03/2017 Inactive Generic For:*SYNTHRO ID 0.05MG TAB 08/09/2016 8:59:33 AM famotidine 40 mg tablet RxNorm: 406366 1 Tablet(s) PO BID 07/22/2016 10/20/2016 Inactive clotrimazole-betamethasone 1 %-0.05 % topical cream RxNorm: 833065 1 Application TOP BID to rash prn--was supposed to be cream not lotion 06/23/2016 Inactive famotidine 40 mg tablet RxNorm: 300870 1 Tablet(s) PO BID 06/23/2016 07/21/2016 Inactive Toprol XL 25 mg tablet,extended release RxNorm: 975779 1 Tablet (s) PO QD 06/14/2016 12/15/2016 Inactive Generic For:TOPROL X L 25MG TAB SA 12/21/2015 9:08:41 AM dicyclomine 10 mg capsule RxNorm: 782912 1 Capsule(s) P O TID as needed for abdominal pain 04/26/2016 06/07/2017 Inactive dicyclomine 10 mg capsule RxNorm: 584263 1 Capsule(s) P O TID as needed for abdominal pain 04/26/2016 06/08/2017 Inactive famotidine 40 mg tablet RxNorm: 360175 1 Tablet(s) PO QD 04/26/2016 0 06/22/2016 Inactive Protonix 40 mg tablet,delayed release RxNorm: 744334 1 Tablet(s ) PO QD 02/05/2016 03/27/2017 Inactive levothyroxine 50 mcg tablet RxNorm: 977524 1 Tablet(s) PO QD 201507/22/2016 Inactive Toprol XL 25 mg tablet,extended release RxNorm: 168648 TAKE ONE TABLET BY MOUTH EVERY DAY 12/21/2015 06/14/2016 Inactive Generic For:TOPR OL XL 25MG TAB SA 12/21/2015 9:08:41 AM Protonix 40 mg tablet,delayed release RxNorm: 246826 1 Tablet(s ) PO QD 07/27/2015 01/22/2016 Inactive levothyroxine 50 mcg tablet RxNorm: 239853 1 Tablet(s) PO QD 201501/17/2016 Inactive Phenergan 25 mg rectal suppository RxNorm: 443471 1 Sup pository RTL Q4H as needed for nausea and vomiting 07/20/2015 12/08/2015 Inactive Toprol XL 25 mg tablet,extended release RxNorm: 921916 1 Tablet (s) PO QD 06/15/2015 12/11/2015 Inactive clotrimazole-betamethasone 1 %-0.05 % topical cream RxNorm: 477171 1 Application TOP BID to rash prn--was supposed to be cream not lotion 05/20/2015 Inactive Protonix 40 mg tablet,delayed release RxNorm: 606108 1 Tablet(s) 1 Tablet(s) PO QD 04/23/2015 07/27/2015 Inactive levothyroxine 50 mcg tablet RxNorm: 334153 1 Tablet(s) PO QD 201407/21/2015 Inactive Lidoderm 5 % (700 mg/patch) adhesive patch RxNorm: 4746202 1-2 Unit Dose TOP QD on for 12hrs then off for 12hrs 04/23/2015 03/27/2016 Inactive Miralax 17 gram oral powder packet RxNorm: 515348 1/2 U nit Dose PO every other day 03/24/2015 03/29/2015 Inactive levothyroxine 50 mcg tablet RxNorm: 723739 1 Tablet(s) PO QD 201404/19/2015 Inactive dicyclomine 10 mg capsule RxNorm: 896886 1 Capsule(s) P O TID as needed for abdominal pain 02/19/2015 04/25/2016 Inactive dicyclomine 10 mg capsule RxNorm: 163364 1 Capsule(s) P O TID as needed for abdominal pain 12/25/2014 02/18/2015 Inactive Protonix 40 mg tablet,delayed release RxNorm: 790733 1 Tablet(s ) PO BID 12/25/2014 03/04/2015 Inactive levothyroxine 50 mcg tablet RxNorm: 526552 1 Tablet(s) PO QD 201402/18/2015 Inactive Flonase 50 mcg/actuation nasal spray,suspension RxNorm: 8963 23 2 [place] NASAL QHS 12/25/2014 10/03/2018 Inactive [SAVINGS FOR NON -COVERED DRUGS -- BIN:[id number], PCN: ASPROD1, Group: [id number], ID# [id number], Questions: . THIS IS NOT INSURANCE.] Toprol XL 25 mg tablet,extended release RxNorm: 369493 1 Tablet (s) PO QD 12/01/2014 05/29/2015 Inactive dicyclomine 10 mg capsule RxNorm: 361326 1 Capsule(s) P O TID as needed for abdominal pain 12/01/2014 12/24/2014 Inactive levothyroxine 75 mcg tablet RxNorm: 569627 1 Tablet(s) PO QD 201412/24/2014 Inactive [AttnRPh: Saving apply/adjud icate RxGRP:SG20 RxBIN:[id number] RxPCN: ID#:[id number]] Protonix 40 mg tablet,delayed release RxNorm: 653125 1 Tablet(s) BID 1 Tablet(s) PO QD 11/04/2014 12/24/2014 Inactive dicyclomine 10 mg capsule RxNorm: 433915 1 Capsule(s) P O TID as needed for abdominal pain 11/04/2014 11/30/2014 Inactive Protonix 40 mg tablet,delayed release RxNorm: 559485 Ta blet(s) 1 Tablet(s) PO QD 10/14/2014 11/03/2014 Inactive Flonase 50 mcg/actuation nasal spray,suspension RxNorm: 8963 23 2 [place] NASAL QHS 09/01/2014 12/24/2014 Inactive [SAVINGS FOR NON -COVERED DRUGS -- BIN:[id number], PCN: ASPROD1, Group: XXXXX, ID# [id number], Questions: . THIS IS NOT INSURANCE.] Toprol XL 25 mg tablet,extended release RxNorm: 139983 Tablet(s) 1/2 Tablet(s) PO QD 08/28/2014 11/25/2014 Inactive [SAVINGS FOR UNI NSURED PATIENTS -- BIN:116791, PCN: ASPROD1, Group: [id number], ID# [id number], Process claim through [employer], for questions: . THIS IS NOT INSURANCE.] estradiol 0.01% (0.1 mg/gram) vaginal cream RxNorm: 040988 1 Gram(s) VAG Insert vaginally at bedtime, Monday, Monday and Monday06/26/2014 5 Inactive Toprol XL 25 mg tablet,extended release RxNorm: 775378 1/2 Tabl et(s) PO QD 06/06/2014 08/27/2014 Inactive [SAVINGS FOR UNINSUR ED PATIENTS -- BIN:905094, PCN: [id number], Group: [id number], ID# [id number], Process claim through [employer], for questions: . THIS IS NOT INSURANCE.] estradiol 0.5 mg tablet RxNorm: 762778 1 Tablet(s) VAG Place one tablet in the vagina at bedtime three times a week 06/02/2014 06/25/2014 Inactive Estring 2 mg vaginal RxNorm: 076625 VAG Insert vaginall y and remove after 90 days 05/27/2014 06/01/2014 Inactive Toprol XL 25 mg tablet,extended release RxNorm: 941057 1/2 Tabl et(s) PO QD 04/15/2014 04/14/2014 Inactive Protonix 40 mg tablet,delayed release RxNorm: 809848 1 Tablet(s ) PO QD 04/15/2014 10/14/2014 Inactive estradiol 0.5 mg tablet RxNorm: 634464 1 Tablet(s) VAG Place one tablet in the vagina at bedtime twice a week 04/15/2014 06/01/2014 Inactive Toprol XL 25 mg tablet,extended release RxNorm: 079125 1/2 Tabl et(s) PO QD 04/15/2014 06/05/2014 Inactive [SAVINGS FOR UNINSUR ED PATIENTS -- BIN:915397, PCN: ASPROD1, Group: [id number], ID# [id number], Process claim through [employer], for questions: . THIS IS NOT INSURANCE.] levothyroxine 75 mcg tablet RxNorm: 087491 1 Tablet(s) PO QD 201304/07/2014 Inactive [AttnRPh: Saving apply/adjud icate RxGRP:SG20 RxBIN:[id number] RxPCN: ID#:[id number]] Flonase 50 mcg/actuation nasal spray,suspension RxNorm: 8963 23 1 [place] NASAL BID 04/08/2014 08/31/2014 Inactive levothyroxine 75 mcg tablet RxNorm: 227026 1 Tablet(s) PO QD 201310/04/2014 Inactive [AttnRPh: Saving apply/adjud icate RxGRP:SG20 RxBIN:[id number] RxPCN:HT ID#:[id number]] estradiol 0.5 mg tablet RxNorm: 371794 Tablet(s) PO Debra ce one tablet in the vagina at bedtime one time weekly 04/08/2014 04/07/2014 Inactive levothyroxine 75 mcg tablet RxNorm: 078080 1 Tablet(s) PO QD 201304/07/2014 Inactive [AttnRPh: Saving apply/adjud icate RxGRP:SG20 RxBIN:[id number] RxPCN: ID#:[id number]] Skelaxin 800 mg tablet RxNorm: 656428 1 Tablet(s) PO TI D as needed for muscle spasm 03/05/2014 11/03/2014 Inactive alprazolam 0.25 mg tablet RxNorm: 566655 1 Tablet(s) PO Q8H as needed for anxiety 02/27/2014 08/05/2018 Inactive [AttnRPh: Saving apply/adjudicate RxGRP:SG20 RxBIN:[id number] RxPCN:HT ID#:[id number]] Synthroid 75 mcg tablet RxNorm: 219557 1 Tablet(s) PO QD 11/29/2013 0 11/03/2014 Inactive levothyroxine 75 mcg tablet RxNorm: 102188 1 Tablet(s) PO QD -N eed labs 11/27/2013 03/19/2014 Inactive [AttnRPh: Saving jessica ly/adjudicate RxGRP:SG20 RxBIN:[id number] RxPCN: ID#:[id number]] Protonix 40 mg tablet,delayed release RxNorm: 498113 1 Tablet(s ) PO QD 10/07/2013 04/04/2014 Inactive Synthroid 75 mcg tablet RxNorm: 849967 1 Tablet(s) PO QD 09/02/2013 0 11/28/2013 Inactive Zithromax 500 mg tablet RxNorm: 823334 1 Tablet(s) PO QD 07/29/2013 0 08/04/2013 Inactive prednisone 20 mg tablet RxNorm: 665428 1 Tablet(s) PO QD 07/29/2013 0 08/02/2013 Inactive Synthroid 75 mcg tablet RxNorm: 994075 1 Tablet(s) PO Q D Patient wants it put on hold 05/14/2013 09/02/2013 Inactive Synthroid 75 mcg tablet RxNorm: 346440 1 Tablet(s) PO QD 05/01/2013 1 07/14/2012 Inactive Flagyl 500 mg tablet RxNorm: 522914 1 Tablet(s) PO BID 03/20/2013 Inactive Cipro 500 mg tablet RxNorm: 968499 1 Tablet(s) PO QD 03/20/201304/02 Inactive levothyroxine 75 mcg tablet RxNorm: 729301 1 Tablet(s) PO QD 201205/03/2013 Inactive Septra DS 800 mg-160 mg tablet RxNorm: 305283 1 Tablet(s) PO BI D antibiotic 11/05/2012 11/09/2012 Inactive Bystolic 5 mg tablet RxNorm: 873922 1 Tablet(s) PO QD 10/10/201208/2018 Inactive Bystolic 5 mg tablet RxNorm: 132241 1 Tablet(s) PO QD 10/10/20120 02/2013 Inactive Protonix 40 mg tablet,delayed release RxNorm: 718543 1 Tablet(s ) PO QD 09/24/2012 09/18/2013 Inactive Synthroid 75 mcg tablet RxNorm: 492130 1 Tablet(s) PO QD 08/01/2012 0 09/23/2012 Inactive Synthroid 75 mcg tablet RxNorm: 552517 1 Tablet(s) PO QD Brand name only 07/03/2012 07/31/2012 Inactive Skelaxin 800 mg tablet RxNorm: 664451 1 Tablet(s) PO TID prn spasm 05/02/2012 03/04/2014 Inactive Zithromax Z-Leonel 250 mg tablet RxNorm: 375227 Tablet(s) PO As Di rected 04/12/2012 05/01/2012 Inactive levothyroxine 75 mcg tablet RxNorm: 668116 1 Tablet(s) PO QD 201108/05/2018 Inactive levothyroxine 75 mcg tablet RxNorm: 087924 1 Tablet(s) PO QD 201107/01/2012 Inactive Ultram 50 mg tablet RxNorm: 338997 1-2 Tablet(s) PO TID as need ed for migraine 04/03/2012 11/03/2014 Inactive Vimovo 500 mg-20 mg tablets,immediate & delayed release RxNo rm: 163772 1 Tablet(s) PO BID for pain 03/28/2012 07/25/2012 Inactive levothyroxine 75 mcg tablet RxNorm: 740992 1 Tablet(s) PO QD 201104/02/2012 Inactive levothyroxine 50 mcg tablet RxNorm: 139114 1 Tablet(s) PO QD 201109/23/2012 Inactive levothyroxine 50 mcg tablet RxNorm: 404377 1 Tablet(s) PO QD 201101/31/2012 Inactive Septra DS 800 mg-160 mg Tab RxNorm: 705239 1 Tablet(s) PO BID 11/2111/26/2011 Inactive mupirocin 2 % Ointment RxNorm: 700751 1 Application TOP TID 012 11/28/2011 Inactive Protonix 40 mg tablet,delayed release RxNorm: 031360 1 Tablet(s ) PO QD 09/13/2011 09/24/2012 Inactive hydrocodone-acetaminophen 5 mg-500 mg Tab RxNorm: 786377 1 Tablet(s) PO Q4-6H as needed for pain 07/13/2011 11/21/2011 Inactive Skelaxin 800 mg tablet RxNorm: 951108 1 Tablet(s) PO TID prn spasm 06/30/2011 11/21/2011 Inactive Skelaxin 800 mg Tab RxNorm: 431428 1 Tablet(s) PO TID prn spasm No Stop Date Active potassium chloride ER 10 mEq Cap RxNorm: 6218639 2 Capsule(s) PO QD 12/30/2010 01/30/2011 Inactive potassium chloride ER 10 mEq Cap RxNorm: 5270656 1 Capsule(s) PO QD 12/29/2010 12/29/2010 Inactive Take 2 tablets by mouth on M , Monday, Monday and 1 tablet by mouth on Monday, , Monday and Monday Premarin 0.9 mg Tab RxNorm: 837711 1 Tablet(s) PO QD 12/09/201001/07 Inactive potassium chloride ER 10 mEq Cap RxNorm: 1213367 1 Capsule(s) PO QD 12/07/2010 No Stop Date Active Take 2 tablets by mouth on M , Monday, Monday and 1 tablet by mouth on Monday, , Monday and Monday promethazine 12.5 mg Rectal Suppository RxNorm: 781767 1 Applic ation RTL Q6-8H 12/07/2010 12/16/2010 Inactive prn nausea and vomit ing potassium chloride ER 10 mEq Cap RxNorm: 1732329 1 Capsule(s) PO QD 12/03/2010 No Stop Date Active MWF take 2 tablets daily. T nighat one tablet daily on other days. Protonix 40 mg Tab RxNorm: 539564 1 Tablet(s) PO QD 09/27/20102011 Inactive cefdinir 300 mg Cap RxNorm: 737104 2 Capsule(s) PO QD 08/05/201007/2010 Inactive cefdinir 300 mg Cap RxNorm: 292887 2 Capsule(s) PO QD 08/05/201008/03 Inactive Premarin 1.25 mg Tab RxNorm: 089573 1 Tablet(s) PO QD 06/14/201012/2010 Inactive lisinopril-hydrochlorothiazide 10 mg-12.5 mg Tab RxNorm: 753220 1 Tablet(s) PO 06/07/2010 11/04/2010 Inactive alprazolam 0.25 mg Tab RxNorm: 795191 1 Tablet(s) PO TI D written script provided to patient. 05/24/2010 06/22/2010 Inactive Treximet 85 mg-500 mg Tab RxNorm: 045196 1 Tablet(s) PO PRN 010 09/23/2012 Inactive lisinopril-hydrochlorothiazide 20 mg-12.5 mg Tab RxNorm: 197 886 1 Tablet(s) PO QD 05/12/2010 11/04/2010 Inactive alprazolam 0.25 mg Tab RxNorm: 616063 1 Tablet(s) PO TI D written script provided to patient. 04/19/2010 05/23/2010 Inactive Macrobid 100 mg Cap RxNorm: 3663406 1 Capsule(s) PO BID 04/08/2010 Inactive Premarin 1.25 mg Tab RxNorm: 475856 1 Tablet(s) PO QD 03/22/201002/2011 Inactive Amitriptyline 10 mg Tab RxNorm: 024369 1 Tablet(s) PO QD 03/22/2010 0 06/19/2010 Inactive Protonix 40 mg Tab RxNorm: 732553 1 Tablet(s) PO QD 03/22/20102010 Inactive alprazolam 0.25 mg Tab RxNorm: 432441 1 Tablet(s) PO TID 03/10/2010 1 06/08/2009 Inactive Macrobid 100 mg Cap RxNorm: 3675797 1 Capsule(s) PO QD 03/09/2010 Inactive Bystolic 5 mg Tab RxNorm: 650836 1 Tablet(s) PO QD Fi ll at 30 if insurance will not accept 03/01/2010 11/04/2010 Inactive Protonix 40 mg Tab RxNorm: 716968 1 Tablet(s) PO QD 11/23/20092009 Inactive Premarin 1.25 mg Tab RxNorm: 881528 1 Tablet(s) PO QD 11/23/200912/03 Inactive Bentyl 10 mg Cap RxNorm: 922504 1 Capsule(s) PO QID 11/23/20092010 Inactive Elavil 10 mg Tab RxNorm: 979875 1 Tablet(s) PO QPM 11/19/2009 011 Inactive Estrace 0.01% (0.1 mg/gram) vaginal cream RxNorm: 992601 1 Application VAG weekly No Start Date Active Protonix 40 mg tablet,delayed release RxNorm: 780907 1 Tablet(s ) PO QD No Start Date Active fluticasone propionate 50 mcg/actuation nasal spray,suspensi on RxNorm: 5322353 2 [place] NASAL QD No Start Date Active Vitamin D3 2,000 unit tablet RxNorm: 750630 1 Tablet(s) PO QD No Star t Date Active BIOFREEZE Top RxNorm: Topical No Start Date Active multivitamin chewable tablet RxNorm: 1 Tablet(s) PO QD No Start Date Active Estring 2 mg vaginal RxNorm: 012118 VAG Insert vaginall y and remove after 90 days No Start Date 05/26/2014 Inactive Premarin 0.625 mg tablet RxNorm: 611960 1 Tablet(s) PO QD No Start Date 04/07/2014 Inactive Miralax 17 gram/dose oral powder RxNorm: 887205 1 capful PO QD No S tart Date 08/05/2018 Inactive diazepam 5 mg tablet RxNorm: 213352 2 Tablet(s) PO before MRI No St art Date 10/03/2018 Inactive Protonix 40 mg tablet,delayed release RxNorm: 868819 1 Tablet(s ) PO QD No Start Date 07/26/2015 Inactive B12 sublingual RxNorm: 82331 sublingual No Start Date 03/27/2017 Inact adrian Treximet 85 mg-500 mg Tab RxNorm: 449776 Tablet(s) PO PRN No Start Date 05/11/2010 Inactive Gemma 180 mg Tab RxNorm: 090167 1 Tablet(s) PO QD No Start Date Inactive Cranberry Concentrate capsule RxNorm: 1 Capsule(s) PO QD No St art Date 07/02/2019 Inactive Gemma Allergy 180 mg tablet RxNorm: 283613 1 Tablet(s) PO QD No S tart Date 08/31/2014 Inactive estradiol 0.01% (0.1 mg/gram) vaginal cream RxNorm: 588616 1 Gram(s) VAG Insert vaginally at bedtime, Monday, Monday and Monday No Start Date 5 Inactive Tylenol Ex Str Arthritis Pain 500 mg tablet RxNorm: 008525 2 Ta blet(s) PO TID No Start Date 08/05/2018 Inactive Toprol XL 25 mg tablet,extended release RxNorm: 619093 1 Tablet (s) PO QD No Start Date 11/30/2014 Inactive Ultram 50 mg tablet RxNorm: 553434 1-2 Tablet(s) PO TID as need ed for migraine No Start Date 04/02/2012 Inactive Premarin 0.9 mg Tab RxNorm: 780010 1 Tablet(s) PO QD No Start Date Inactive Xyzal 5 mg tablet RxNorm: 457513 1 Tablet(s) PO QD No Start Date 06/06 Inactive Bystolic 5 mg Tab RxNorm: 087133 1/2 Tablet(s) PO QD No Start Date Inactive Ondansetron HCl 4 mg Tab RxNorm: 888574 1 Tablet(s) PO TID or every 8hrs as needed for nausea No Start Date 11/21/2011 Inactive Protonix 40 mg tablet,delayed release RxNorm: 197393 1 Tablet(s ) PO BID No Start Date 12/24/2014 Inactive potassium chloride ER 10 mEq Cap RxNorm: 4280554 1 Capsule(s) PO QD No Start Date 12/02/2010 Inactive Miralax 17 gram/dose oral powder RxNorm: 160808 1 capful PO QD No S tart Date 03/29/2015 Inactive levothyroxine 75 mcg tablet RxNorm: 318022 1 Tablet(s) PO QD si x days a week No Start Date 12/24/2014 Inactive Cenestin 1.25 mg Tab RxNorm: 836898 1 Tablet(s) PO QD No Start Date 0 01/03/2010 Inactive calcium-vitamin D3 500 mg oral wafer RxNorm: 1 Tablet(s) PO QD No Start Date 12/08/2015 Inactive Vimovo 500 mg-20 mg tablet,immediate & delayed release RxNor m: 978742 1 Tablet(s) PO QD No Start Date 11/03/2014 Inactive alprazolam 0.25 mg tablet RxNorm: 888970 1 Tablet(s) PO Q8H as needed for anxiety/stress No Start Date 12/24/2014 Inactive levothyroxine 50 mcg tablet RxNorm: 340224 1 Tablet(s) PO QD No Sta rt Date 06/23/2019 Inactive betamethasone dipropionate 0.05 % topical cream RxNorm: 2389 20 1 Application TOP QHS No Start Date 03/27/2017 Inactive meloxicam 15 mg tablet RxNorm: 960603 1 Tablet(s) PO QD as needed N o Start Date 04/11/2019 Inactive cetirizine 10 mg capsule RxNorm: 8311475 1 Capsule(s) PO QD No Star t Date 09/10/2017 Inactive Skelaxin 800 mg Tab RxNorm: 237600 Tablet(s) PO PRN No Start Date Inactive Zithromax Z-Leonel 250 mg tablet RxNorm: 646594 Tablet(s) PO As Di rected No Start Date 04/11/2012 Inactive Zithromax Z-Leonel 250 mg Tab RxNorm: 145828 Tablet(s) PO as direc sheridan No Start Date 11/15/2010 Inactive Gemma 180 mg tablet RxNorm: 466773 1 Tablet(s) PO QD No Start Date 12/24/2014 Inactive Anusol-HC 2.5 % Rectal Cream RxNorm: 586280 Application RTL BID for 1wk No Start Date 12/19/2011 Inactive metoprolol succinate ER 25 mg 24 hr Tab RxNorm: 184246 1/2 Tabl et(s) PO QD No Start Date 10/03/2012 Inactive clotrimazole-betamethasone 1 %-0.05 % Lotion RxNorm: 838307 Application TOP BID to rash No Start Date 05/15/2011 Inactive ranitidine 150 mg tablet RxNorm: 408098 1 Tablet(s) PO QD No Start Date 12/06/2018 Inactive ranitidine 150 mg tablet RxNorm: 243535 1 Tablet(s) PO BID No Start Date 11/10/2016 Inactive promethazine 12.5 mg Rectal Suppository RxNorm: 964801 1 Applic ation RTL Q6-8H No Start Date 12/06/2010 Inactive Maxalt-CLOTH DYER 10 mg disintegrating tablet RxNorm: 648768 1 Tablet(s) PO at headache onset--may repeat in 2hrs if needed No Start Date 12/24/2014 Inactive Benadryl 25 mg capsule RxNorm: 8973420 Capsule(s) PO as needed No S tart Date 12/24/2014 Inactive Cranberry Concentrate 500 mg capsule RxNorm: 998932 1 Capsule(s ) PO QD No Start Date 09/10/2017 Inactive Mobic 15 mg tablet RxNorm: 244313 1 Tablet(s) PO on opposite da ys of Victor Manuel No Start Date 11/20/2018 Inactive Bystolic 5 mg tablet RxNorm: 383992 1 Tablet(s) PO QD No Start Date 0 10/09/2012 Inactive Premarin 1.25 mg Tab RxNorm: 401767 1 Tablet(s) PO QD No Start Date 1 Inactive clotrimazole-betamethasone 1 %-0.05 % topical cream RxNorm: 468819 Application TOP BID to rash prn--was supposed to be cream not lotion No Start Date 12/19/2011 Inactive azithromycin 250 mg Tab RxNorm: 772359 2 Tablet(s) PO Q D take 2 tablets (500 mg) by oral route once daily for 1 day then 1 tablet (250 mg) by oral route once daily for 4 days No Start Date 06/06/2010 Inactive hydrocodone-acetaminophen 5 mg-500 mg Tab RxNorm: 172704 1 Tablet(s) PO Q4-6H as needed for pain No Start Date 07/12/2011 Inactive Levbid 0.375 mg 12 hr Tab RxNorm: 3438607 1 Tablet(s) PO BID as needed for stomach cramping No Start Date 11/21/2011 Inactive Phenergan 25 mg rectal suppository RxNorm: 504005 1 Sup pository RTL Q4H as needed for nausea and vomiting No Start Date 07/19/2015 Inactive baclofen 10 mg tablet RxNorm: 060473 1 Tablet(s) PO QHS No Start Da te 11/03/2014 Inactive loratadine 10 mg tablet RxNorm: 495355 1 Tablet(s) PO QD No Start D ate 10/03/2018 Inactive famotidine 40 mg tablet RxNorm: 081789 1 Tablet(s) PO BID No Start Date 06/22/2016 Inactive Zithromax Z-Leonel 250 mg Tab RxNorm: 557060 Tablet(s) PO as direc sheridan No Start Date 11/15/2010 Inactive Singulair 10 mg tablet RxNorm: 640231 1 Tablet(s) PO QHS No Start D ate 07/10/2017 Inactive Premarin 0.625 mg/g Vaginal Cream RxNorm: 587917 1 Gram (s) VAG QHS 2-3 times weekly No Start Date 01/05/2011 Inactive Alprazolam 0.25 mg Tab RxNorm: 115633 1 Tablet(s) PO TID No Start D ate 03/09/2010 Inactive Claritin 10 mg tablet RxNorm: 295477 1 Tablet(s) PO QD No Start Date 11/03/2014 Inactive Medication Administered No Medication Administered data Immunizations Vaccine Codes Date Status Pneumococcal CVX: 133 07/03/2019 Complete Influenza CVX: 141 03/22/2018 Complete Tetanus, Diptheria, Pertussis CVX: 115 12/28/2017 Co mplete Zoster Unknown 10/04/2017 Complete Influenza CVX: 141 03/28/2017 Complete Influenza CVX: 141 04/22/2016 Complete Influenza CVX: 141 03/09/2015 Influenza CVX: 141 06/29/2011 Pediatric Influenza CVX: 141 06/29/2011 Influenza (Adult) CVX: 141 03/09/2010 Results Observation Observation Code Item Item Code Result Date S ervice Location GFR CALC 4197765 GFR AA >60 ML/MIN 01/14/2011 Unknown GFR CALC 4068391 GFR NON-AA >60 ML/MIN 01/14/2011 Unknown COMPREHENSIVE METABOLIC 46879 AST 15 U/L 2010 Unknown COMPREHENSIVE METABOLIC 94750 ALT 17 IU/L 2010 Unknown COMPREHENSIVE METABOLIC 29655 BUN 12 MG/DL 2010 Unknown COMPREHENSIVE METABOLIC 55424 ALBUMIN 4.0 GM/DL 2010 Unknown COMPREHENSIVE METABOLIC 68013 CHLORIDE 101 MMOL/L 01/14 Unknown COMPREHENSIVE METABOLIC 38303 BILI TOT 0.3 MG/DL 2010 Unknown COMPREHENSIVE METABOLIC 34464 ALK PHOS 53 U/L 2010 Unknown COMPREHENSIVE METABOLIC 79900 SODIUM 136 MMOL/L 01/14 Unknown COMPREHENSIVE METABOLIC 52634 CREATININE 0.60 MG/DL 01/03 Unknown COMPREHENSIVE METABOLIC 65579 CALCIUM 9.3 MG/DL 2010 Unknown COMPREHENSIVE METABOLIC 02522 POTASSIUM 4.1 MMOL/L 01/14 Unknown COMPREHENSIVE METABOLIC 59836 PROT TOT 7.0 GM/DL 2010 Unknown COMPREHENSIVE METABOLIC 73648 Glucose 92 MG/DL 2010 Unknown COMPREHENSIVE METABOLIC 35827 BICARB 27 MMOL/L 2010 Unknown COMPREHENSIVE METABOLIC 35910 ANION GAP 8 MEQ/L 2010 Unknown ERYTHROCYTE SEDIMENTATION RATE 92590 ESR 39 MM/HR 01/05/2011 Unknown COMPREHENSIVE METABOLIC 83848 AST 16 U/L 2010 Unknown COMPREHENSIVE METABOLIC 84940 ALT 19 U/L 2010 Unknown COMPREHENSIVE METABOLIC 15494 BUN 15 MG/DL 2010 Unknown COMPREHENSIVE METABOLIC 37261 ALBUMIN 3.8 GM/DL 2010 Unknown COMPREHENSIVE METABOLIC 12569 CHLORIDE 101 MMOL/L 01/05 Unknown COMPREHENSIVE METABOLIC 03114 BILI TOT 0.3 MG/DL 2010 Unknown COMPREHENSIVE METABOLIC 67516 ALK PHOS 55 U/L 2010 Unknown COMPREHENSIVE METABOLIC 07408 SODIUM 139 MMOL/L 01/05 Unknown COMPREHENSIVE METABOLIC 02150 CREATININE 0.59 MG/DL 08/2010 Unknown COMPREHENSIVE METABOLIC 65888 CALCIUM 8.9 MG/DL 2010 Unknown COMPREHENSIVE METABOLIC 32904 POTASSIUM 3.8 MMOL/L 01/05 Unknown COMPREHENSIVE METABOLIC 94360 PROT TOT 6.7 GM/DL 2010 Unknown COMPREHENSIVE METABOLIC 37082 Glucose 121 MG/DL 2010 Unknown COMPREHENSIVE METABOLIC 17473 BICARB 28 MMOL/L 2010 Unknown COMPREHENSIVE METABOLIC 64381 ANION GAP 10 MMOL/L 2010 Unknown GFR CALC 5872499 GFR AA >60 ML/MIN 01/05/2011 Unknown GFR CALC 2623050 GFR NON-AA >60 ML/MIN 01/05/2011 Unknown COMPLETE BLOOD COUNT 73851 WBC 8.7 10e9/L 01/06/20 11 Unknown COMPLETE BLOOD COUNT 45515 RBC 4.78 10e12/L 2010 Unknown COMPLETE BLOOD COUNT 00177 HGB 13.3 g/dL 1 Unknown COMPLETE BLOOD COUNT 27363 HCT DET 40.6 % 1 Unknown COMPLETE BLOOD COUNT 72818 MCV 84.9 fL 1 Unknown COMPLETE BLOOD COUNT 59427 MCH 27.8 pg 1 Unknown COMPLETE BLOOD COUNT 58441 MCHC 32.8 g/dL 1 Unknown COMPLETE BLOOD COUNT 78227 PLT 273 10e9/L 01/06/20 11 Unknown COMPLETE BLOOD COUNT 13838 MPV 9.8 fL 1 Unknown COMPLETE BLOOD COUNT 84614 AMANDA % 65.9 % 1 Unknown COMPLETE BLOOD COUNT 38042 LY % 24.5 % 1 Unknown COMPLETE BLOOD COUNT 67509 MON % 6.9 % 1 Unknown COMPLETE BLOOD COUNT 71487 EOS % 2.1 % 1 Unknown COMPLETE BLOOD COUNT 24694 BASO % 0.6 % 1 Unknown COMPLETE BLOOD COUNT 92938 RDW 14.7 % 1 Unknown COMPLETE BLOOD COUNT 07397 ABS AMANDA 5.73 10e9/L 011 Unknown COMPLETE BLOOD COUNT 29821 ABS LYMPH 2.13 10e9/L 011 Unknown COMPLETE BLOOD COUNT 68594 ABS MONO 0.60 10e9/L 011 Unknown COMPLETE BLOOD COUNT 50667 ABS EOS 0.18 10e9/L 011 Unknown COMPLETE BLOOD COUNT 68986 ABS BASO 0.05 10e9/L 011 Unknown COMPLETE BLOOD COUNT 87897 RDW-SD 44.7 fL 1 Unknown NO UA [id number] NO UA CANCELED 07/08/2010 Unknown Procedures Procedure Codes Date PNEUMOCOCCAL VACC 13 JACKY IM CPT-4: 16000 07/03/2019 ADMIN PNEUMOCOCCAL VACCINE CPT-4: G0009 07/03/2019 URINALYSIS NONAUTO W/O SCOPE CPT-4: 84094 04/12/2019 URINE CULTURE/ COLONY COUNT CPT-4: 64647 04/12/2019 URINE CULTURE/ COLONY COUNT CPT-4: 83847 01/14/2019 URINALYSIS NONAUTO W/O SCOPE CPT-4: 57923 01/14/2019 INITIAL PREVENTIVE EXAM CPT-4: G0402 11/21/2018 URINALYSIS NONAUTO W/O SCOPE CPT-4: 18363 11/01/2018 URINE CULTURE/ COLONY COUNT CPT-4: 50561 11/01/2018 URINE CULTURE/ COLONY COUNT CPT-4: 51249 06/13/2018 URINALYSIS NONAUTO W/O SCOPE CPT-4: 35067 05/31/2018 URINE CULTURE/ COLONY COUNT CPT-4: 05853 05/31/2018 IIV4 VACCINE 3 YRS+ IM AND UP CPT-4: 24233 03/22/2018 IMMUNIZATION ADMIN CPT-4: 43720 03/22/2018 TDAP VACCINE 7 YRS/> IM CPT-4: 77687 12/28/2017 IMMUNIZATION ADMIN CPT-4: 25400 12/28/2017 SHINGRIX HZV VACC RECOMBINANT IM CPT-4: 35848 018 IMMUNIZATION ADMIN CPT-4: 12914 10/04/2017 IIV4 VACCINE 3 YRS+ IM AND UP CPT-4: 94447 03/28/2017 IMMUNIZATION ADMIN CPT-4: 48333 03/28/2017 INFLUENZA ASSAY W/OPTIC CPT-4: 56669 09/12/2016 FLU VACCINE 3 YRS & > IM UP 64 CPT-4: 17973 6 IMMUNIZATION ADMIN CPT-4: 82676 04/22/2016 OCCULT BLOOD FECES CPT-4: 53357 01/04/2016 THER/PROPH/DIAG INJ SC/IM CPT-4: 85549 07/20/2015 PROMETHAZINE HCL INJECTION CPT-4: J2550 07/20/2015 FLU VACCINE 3 YRS & > IM UP 64 CPT-4: 40901 5 IMMUNIZATION ADMIN CPT-4: 59065 03/09/2015 URINALYSIS NONAUTO W/O SCOPE CPT-4: 82652 07/10/2014 URINE CULTURE/ COLONY COUNT CPT-4: 37741 07/10/2014 URINE CULTURE/ COLONY COUNT CPT-4: 96553 07/14/2011 URINALYSIS NONAUTO W/O SCOPE CPT-4: 46692 07/14/2011 FLU VACCINE 3 YRS & > IM UP 64 CPT-4: 93528 2 IMMUNIZATION ADMIN CPT-4: 36479 06/28/2011 URINALYSIS NONAUTO W/O SCOPE CPT-4: 53919 03/23/2011 URINE CULTURE/ COLONY COUNT CPT-4: 93788 03/23/2011 ROUTINE VENIPUNCTURE CPT-4: 00294 01/14/2011 COMPREHEN METABOLIC PANEL CPT-4: 99994 01/14/2011 ROUTINE VENIPUNCTURE CPT-4: 44362 01/05/2011 COMPLETE CBC W/AUTO DIFF WBC CPT-4: 05563 01/05/2011 RBC SED RATE AUTOMATED CPT-4: 53831 01/05/2011 COMPREHEN METABOLIC PANEL CPT-4: 31708 01/05/2011 URINALYSIS NONAUTO W/O SCOPE CPT-4: 70729 11/16/2010 URINE CULTURE/ COLONY COUNT CPT-4: 78266 11/16/2010 DRAIN/INJECT JOINT/BURSA CPT-4: 82307 11/04/2010 TRIAMCINOLONE ACET INJ NOS CPT-4: J3301 11/04/2010 METHYLPREDNISOLONE 80 MG INJ CPT-4: J1040 11/04/2010 URINALYSIS NONAUTO W/O SCOPE CPT-4: 76869 07/05/2010 URINE CULTURE/ COLONY COUNT CPT-4: 66643 07/05/2010 URINALYSIS NONAUTO W/O SCOPE CPT-4: 27686 06/28/2010 URINE CULTURE/ COLONY COUNT CPT-4: 30402 06/28/2010 URINALYSIS NONAUTO W/O SCOPE CPT-4: 04131 06/14/2010 URINE CULTURE/ COLONY COUNT CPT-4: 25342 06/14/2010 URINE CULTURE/ COLONY COUNT CPT-4: 33971 04/19/2010 OCCULT BLOOD FECES CPT-4: 23568 04/12/2010 URINALYSIS NONAUTO W/O SCOPE CPT-4: 11507 04/08/2010 URINE CULTURE/ COLONY COUNT CPT-4: 31805 04/08/2010 ASSAY, GLUCOSE, BLOOD QUANT CPT-4: 95616 03/09/2010 URINALYSIS NONAUTO W/O SCOPE CPT-4: 15491 03/09/2010 FLU VACCINE 3 YRS & > IM UP 64 CPT-4: 46740 0 IMMUNIZATION ADMIN CPT-4: 79029 03/09/2010 URINALYSIS NONAUTO W/O SCOPE CPT-4: 37485 09/29/2009 URINALYSIS NONAUTO W/O SCOPE CPT-4: 96742 08/12/2009 Vital Signs Date Vital 07/03/2019 Blood Pressure 1: 122/68 Code: 8480-6 Heart Rate 1: 88 bpm Respiratory Rate: 20 bpm SpO2: 97% Temperature: 36.6 (C) / 97.9 (F) We ight: 169 lbs 04/12/2019 Blood Pressure 1: 130/84 Code: 8480-6 Heart Rate 1: 65 bpm SpO2: 99% Temperature: 36.2 (C) / 97.1 (F) Weight: 168 lbs 01/16/2019 Blood Pressure 1: 122/68 Code: 8480-6 Heart Rate 1: 76 bpm SpO2: 97% Temperature: 36.6 (C) / 97.8 (F) 01/09/2019 Heart Rate 1: 100 bpm Respiratory Rate: 20 bpm SpO2: 9 8% Temperature: 36.8 (C) / 98.2 (F) Weight: 162 lbs 11/21/2018 Blood Pressure 1: 130/70 Code: 8480-6 BMI: 29.6 Code: 28498-7 Heart Rate 1: 76 bpm Height: 5'2" Respiratory Rate: 20 bpm SpO2: 96% Tempera ture: 36.7 (C) / 98.0 (F) Weight: 162 lbs 10/04/2018 Blood Pressure 1: 124/68 Code: 8480-6 Heart Rate 1: 72 bpm Respiratory Rate: 20 bpm SpO2: 96% Temperature: 36.6 (C) / 97.8 (F) We ight: 168 lbs 08/06/2018 Blood Pressure 1: 128/82 Code: 8480-6 Heart Rate 1: 88 bpm Respiratory Rate: 20 bpm Temperature: 36.9 (C) / 98.4 (F) Weight: 164 lbs 06/21/2018 Blood Pressure 1: 126/62 Code: 8480-6 BMI: 29.6 Code: 78356-4 Heart Rate 1: 88 bpm Height: 5'3" Respiratory Rate: 20 bpm Temperature: 36 .8 (C) / 98.3 (F) Weight: 167 lbs 05/31/2018 Blood Pressure 1: 140/80 Code: 8480-6 Heart Rate 1: 74 bpm Respiratory Rate: 16 bpm SpO2: 97% Temperature: 36.3 (C) / 97.3 (F) We ight: 165 lbs 02/06/2018 Blood Pressure 1: 124/78 Code: 8480-6 BMI: 29.8 Code: 35774-7 Heart Rate 1: 84 bpm Height: 5'3" Respiratory Rate: 20 bpm SpO2: 97% Tempera ture: 36.6 (C) / 97.8 (F) Weight: 168 lbs 12/18/2017 Blood Pressure 1: 116/78 Code: 8480-6 BMI: 29.6 Code: 66055-1 Heart Rate 1: 88 bpm Height: 5'3" Respiratory Rate: 20 bpm Temperature: 36 .6 (C) / 97.9 (F) Weight: 167 lbs 12/11/2017 Blood Pressure 1: 122/76 Code: 8480-6 He art Rate 1: 78 bpm 09/11/2017 Blood Pressure 1: 126/82 Code: 8480-6 BMI: 29.1 Code: 99970-9 Heart Rate 1: 68 bpm Height: 5'3" Respiratory Rate: 20 bpm SpO2: 96% Tempera ture: 36.6 (C) / 97.9 (F) Weight: 164 lbs 03/28/2017 Blood Pressure 1: 114/64 Code: 8480-6 BMI: 27.8 Code: 07800-7 Heart Rate 1: 76 bpm Height: 5'3" Respiratory Rate: 20 bpm SpO2: 98% Tempera ture: 36.4 (C) / 97.6 (F) Weight: 157 lbs 09/12/2016 Blood Pressure 1: 126/70 Code: 8480-6 BMI: 29.9 Code: 84788-1 Heart Rate 1: 92 bpm Height: 5'3" Respiratory Rate: 20 bpm SpO2: 97% Tempera ture: 37.0 (C) / 98.6 (F) Weight: 168 lbs 9 oz 07/28/2016 Blood Pressure 1: 128/74 Code: 8480-6 Heart Rate 1: 92 bpm Respiratory Rate: 24 bpm SpO2: 96% Temperature: 36.4 (C) / 97.6 (F) We ight: 168 lbs 04/26/2016 Blood Pressure 1: 116/74 Code: 8480-6 BMI: 29.9 Code: 80152-9 Heart Rate 1: 92 bpm Height: 5'3" Respiratory Rate: 20 bpm Temperature: 36 .9 (C) / 98.4 (F) Weight: 169 lbs 12/09/2015 Blood Pressure 1: 116/72 Code: 8480-6 BMI: 31.7 Code: 74063-2 Heart Rate 1: 80 bpm Height: 5'3" Respiratory Rate: 20 bpm Temperature: 36 .6 (C) / 97.9 (F) Weight: 179 lbs 09/10/2015 Blood Pressure 1: 122/78 Code: 8480-6 BMI: 32.2 Code: 77333-1 Heart Rate 1: 88 bpm Height: 5'3" Respiratory Rate: 20 bpm Temperature: 37 .3 (C) / 99.1 (F) Weight: 182 lbs 04/23/2015 Blood Pressure 1: 126/70 Code: 8480-6 BMI: 31.2 Code: 70783-9 Heart Rate 1: 92 bpm Height: 5'3" Respiratory Rate: 20 bpm Temperature: 36 .8 (C) / 98.2 (F) Weight: 176 lbs 03/24/2015 Blood Pressure 1: 126/78 Code: 8480-6 BMI: 31.2 Code: 41624-4 Heart Rate 1: 80 bpm Height: 5'3" Respiratory Rate: 22 bpm Temperature: 36 .1 (C) / 96.9 (F) Weight: 176 lbs 03/05/2015 Blood Pressure 1: 132/80 Code: 8480-6 BMI: 31.5 Code: 11981-4 Heart Rate 1: 92 bpm Height: 5'2" Respiratory Rate: 20 bpm Temperature: 36 .4 (C) / 97.6 (F) Weight: 175 lbs 02/19/2015 Blood Pressure 1: 134/80 Code: 8480-6 BMI: 31.5 Code: 58351-7 Heart Rate 1: 88 bpm Height: 5'2" Respiratory Rate: 20 bpm Temperature: 36 .7 (C) / 98.0 (F) Weight: 175 lbs 12/25/2014 Blood Pressure 1: 122/80 Code: 8480-6 BMI: 31.0 Code: 82224-4 Heart Rate 1: 88 bpm Height: 5'2" Respiratory Rate: 20 bpm Temperature: 36 .6 (C) / 97.8 (F) Weight: 172 lbs 11/26/2014 Blood Pressure 1: 116/68 Code: 8480-6 BMI: 30.2 Code: 97561-1 Heart Rate 1: 76 bpm Height: 5'2" Respiratory Rate: 20 bpm Temperature: 36 .5 (C) / 97.7 (F) Weight: 168 lbs 11/04/2014 Blood Pressure 1: 116/64 Code: 8480-6 BMI: 30.8 Code: 13709-9 Heart Rate 1: 92 bpm Height: 5'2" Respiratory Rate: 20 bpm Temperature: 36 .7 (C) / 98.1 (F) Weight: 171 lbs 09/01/2014 Blood Pressure 1: 130/82 Code: 8480-6 BMI: 30.6 Code: 34816-4 Heart Rate 1: 92 bpm Height: 5'2" Respiratory Rate: 20 bpm Temperature: 36 .9 (C) / 98.4 (F) Weight: 170 lbs 06/02/2014 Blood Pressure 1: 126/80 Code: 8480-6 BMI: 30.2 Code: 60476-3 Heart Rate 1: 88 bpm Height: 5'2" Respiratory Rate: 20 bpm Temperature: 36 .7 (C) / 98.1 (F) Weight: 168 lbs 05/26/2014 Blood Pressure 1: 132/78 Code: 8480-6 He art Rate 1: 74 bpm 04/08/2014 Blood Pressure 1: 156/94 Code: 8480-6 BMI: 30.2 Code: 94011-8 Heart Rate 1: 96 bpm Height: 5'2" Respiratory Rate: 20 bpm Temperature: 37 .1 (C) / 98.7 (F) Weight: 168 lbs 03/05/2014 Blood Pressure 1: 144/86 Code: 8480-6 BMI: 29.9 Code: 72156-7 Heart Rate 1: 100 bpm Height: 5'2" Respiratory Rate: 20 bpm Temperature: 36 .7 (C) / 98.1 (F) Weight: 166 lbs 07/29/2013 Blood Pressure 1: 124/80 Code: 8480-6 Heart Rate 1: 92 bpm Respiratory Rate: 20 bpm Temperature: 36.2 (C) / 97.2 (F) Weight: 167 lbs 03/20/2013 Blood Pressure 1: 116/84 Code: 8480-6 BMI: 30.8 Code: 11993-7 Heart Rate 1: 96 bpm Height: 5'3" Respiratory Rate: 20 bpm Temperature: 36 .6 (C) / 97.8 (F) Weight: 174 lbs 02/12/2013 Blood Pressure 1: 122/80 Code: 8480-6 BMI: 30.5 Code: 58732-7 Heart Rate 1: 112 bpm Height: 5'3" Respiratory Rate: 20 bpm Temperature: 36 .9 (C) / 98.4 (F) Weight: 172 lbs 11/05/2012 BMI: 31.2 Code: 65430-9 Height: 5'3" Weight: 176 lbs 10/04/2012 Heart Rate 1: 84 bpm Height: 5'3" Respiratory Rate: 20 bpm Temperature: 36.8 (C) / 98.3 (F) Weight: 09/24/2012 Blood Pressure 1: 122/88 Code: 8480-6 BMI: 30.8 Code: 26806-3 Heart Rate 1: 80 bpm Height: 5'3" Respiratory Rate: 20 bpm Temperature: 36 .8 (C) / 98.2 (F) Weight: 174 lbs 05/10/2012 Blood Pressure 1: 124/68 Code: 8480-6 BMI: 30.1 Code: 21132-2 Heart Rate 1: 64 bpm Height: 5'3" Temperature: 36.6 (C) / 97.8 (F) Weight: 170 lbs 03/07/2012 Blood Pressure 1: 132/78 Code: 8480-6 BMI: 29.2 Code: 18526-6 Heart Rate 1: 92 bpm Height: 5'3" Respiratory Rate: 20 bpm Temperature: 36 .7 (C) / 98.1 (F) Weight: 165 lbs 02/01/2012 Blood Pressure 1: 116/78 Code: 8480-6 BMI: 29.1 Code: 00990-1 Heart Rate 1: 84 bpm Height: 5'3" Respiratory Rate: 20 bpm Temperature: 36 .8 (C) / 98.2 (F) Weight: 164 lbs 12/20/2011 Blood Pressure 1: 128/80 Code: 8480-6 BMI: 29.1 Code: 72134-9 Heart Rate 1: 88 bpm Height: 5'3" Respiratory Rate: 20 bpm Temperature: 36 .4 (C) / 97.6 (F) Weight: 164 lbs 11/22/2011 Blood Pressure 1: 104/60 Code: 8480-6 BMI: 28.5 Code: 31703-3 Heart Rate 1: 78 bpm Height: 5'3" Temperature: 36.6 (C) / 97.9 (F) Weight: 161 lbs 07/11/2011 Blood Pressure 1: 118/72 Code: 8480-6 BMI: 30.6 Code: 51374-7 Heart Rate 1: 92 bpm Height: 5'3" Respiratory Rate: 20 bpm Temperature: 36 .8 (C) / 98.2 (F) Weight: 173 lbs 07/06/2011 Blood Pressure 1: 126/80 Code: 8480-6 BMI: 31.0 Code: 05328-2 Heart Rate 1: 88 bpm Height: 5'3" Respiratory Rate: 20 bpm Temperature: 36 .7 (C) / 98.1 (F) Weight: 175 lbs 05/26/2011 Blood Pressure 1: 100/78 Code: 8480-6 BMI: 31.0 Code: 26381-2 Heart Rate 1: 74 bpm Height: 5'3" Temperature: 36.4 (C) / 97.6 (F) Weight: 175 lbs 05/16/2011 Blood Pressure 1: 116/80 Code: 8480-6 BMI: 31.0 Code: 74314-3 Heart Rate 1: 88 bpm Height: 5'3" Respiratory Rate: 20 bpm Temperature: 36 .8 (C) / 98.2 (F) Weight: 175 lbs 05/05/2011 Blood Pressure 1: 126/80 Code: 8480-6 BMI: 30.6 Code: 53178-8 Heart Rate 1: 96 bpm Height: 5'3" Respiratory Rate: 20 bpm Temperature: 36 .4 (C) / 97.6 (F) Weight: 173 lbs 04/05/2011 Blood Pressure 1: 144/90 Code: 8480-6 BMI: 30.1 Code: 07663-5 Heart Rate 1: 92 bpm Height: 5'3" Respiratory Rate: 20 bpm Temperature: 36 .6 (C) / 97.8 (F) Weight: 170 lbs 03/02/2011 Blood Pressure 1: 136/94 Code: 8480-6 Heart Rate 1: 92 bpm Temperature: 36.6 (C) / 97.8 (F) Weight: 171 lbs 01/05/2011 Blood Pressure 1: 132/86 Code: 8480-6 BMI: 30.6 Code: 07575-8 Heart Rate 1: 98 bpm Height: 5'3" Temperature: 36.3 (C) / 97.4 (F) Weight: 173 lbs 11/16/2010 Blood Pressure 1: 116/82 Code: 8480-6 Heart Rate 1: 100 bpm Temperature: 36.7 (C) / 98.0 (F) Weight: 169 lbs 11/04/2010 Blood Pressure 1: 122/74 Code: 8480-6 Heart Rate 1: 94 bpm Temperature: 36.8 (C) / 98.2 (F) Weight: 172 lbs 08/05/2010 Blood Pressure 1: 118/64 Code: 8480-6 Heart Rate 1: 74 bpm Temperature: 37.4 (C) / 99.4 (F) Weight: 168 lbs 07/23/2010 Blood Pressure 1: 122/68 Code: 8480-6 BMI: 29.8 Code: 99735-9 Height: 5'3" Temperature: 36.3 (C) / 97.4 (F) Weight: 168 lbs 06/28/2010 Blood Pressure 1: 122/68 Code: 8480-6 He art Rate 1: 76 bpm 06/14/2010 Blood Pressure 1: 120/80 Code: 8480-6 He art Rate 1: 96 bpm 06/07/2010 Blood Pressure 1: 106/72 Code: 8480-6 Heart Rate 1: 92 bpm Temperature: 36.2 (C) / 97.2 (F) Weight: 173 lbs 05/12/2010 Blood Pressure 1: 128/96 Code: 8480-6 Heart Rate 1: 84 bpm Temperature: 36.8 (C) / 98.2 (F) Weight: 171 lbs 04/27/2010 Blood Pressure 1: 126/80 Code: 8480-6 Heart Rate 1: 88 bpm Temperature: 36.7 (C) / 98.0 (F) Weight: 174 lbs 04/19/2010 Blood Pressure 1: 126/80 Code: 8480-6 Heart Rate 1: 76 bpm Temperature: 36.4 (C) / 97.5 (F) Weight: 170 lbs 03/09/2010 Blood Pressure 1: 114/80 Code: 8480-6 Heart Rate 1: 96 bpm Temperature: 36.6 (C) / 97.8 (F) Weight: 174 lbs 01/19/2010 Blood Pressure 1: 132/80 Code: 8480-6 He art Rate 1: 88 bpm 01/04/2010 Blood Pressure 1: 116/80 Code: 8480-6 Heart Rate 1: 104 bpm Temperature: 36.8 (C) / 98.2 (F) Weight: 170 lbs 12/21/2009 Blood Pressure 1: 128/90 Code: 8480-6 He art Rate 1: 92 bpm 12/14/2009 Blood Pressure 1: 126/90 Code: 8480-6 Heart Rate 1: 76 bpm Temperature: 36.6 (C) / 97.8 (F) Weight: 170 lbs 11/23/2009 Blood Pressure 1: 142/90 Code: 8480-6 BMI: 30.5 Code: 85744-2 Heart Rate 1: 96 bpm Height: 5'3" Temperature: 36.1 (C) / 97.0 (F) Weight: 172 lbs Functional Status No Functional Status data Reason For Visit Reason For Visit Effective Dates Notes follow up 07/03/2019 back pain 04/12/2019 back pain 01/16/2019 back pain 01/14/2019 abdominal pain 01/09/2019 well woman exam (65+ years) 11/21/2018 Welcome to [facility] Physical painful urination 11/01/2018 follow up 10/04/2018 follow up 08/06/2018 6mo fwup painful urination 06/21/2018 lab draw 06/13/2018 repeat urine culture flank pain 05/31/2018 under rib cage on guero th sides injection(s) 03/22/2018 requesting flu shot follow up 02/06/2018 injection(s) 12/28/2017 TDAP tinnitus 12/18/2017 blood pressure check 12/11/2017 follow up 09/11/2017 lymph node enlargement/mass 03/28/2017 Since patien t had right knee scope in August has had intermittent rash to site sinus pain 09/12/2016 rash 07/28/2016 MRI scheduled for is coming Monday - Currently on XS tylenol prn for pain hernia 04/26/2016 injection(s) 04/22/2016 Flu Vaccine follow up 01/04/2016 Hemoccult Stool follow up 12/09/2015 leg pain/sciatica 09/10/2015 nausea 07/20/2015 follow up 04/23/2015 ER fwup follow up 03/24/[address] injection(s) 03/09/2015 Influenza follow up 03/05/2015 Discuss EGD and poss ible need of CTscan follow up 02/19/2015 hypothyroid 12/25/2014 Patient had recent l abs and wonders if could adjust to help the sweating follow up 11/26/2014 fatigue 11/04/2014 headache 09/01/2014 Having reactions to allergy shots---instructed to take gemma and benadryl painful urination 07/10/2014 menopausal symptoms 06/02/2014 blood pressure check 05/26/2014 sinusitis 04/08/2014 back pain 03/05/2014 follow up 07/29/2013 Urgent care abdominal pain 03/20/2013 heel pain 02/12/2013 sores 11/05/2012 back pain 10/04/2012 ecchymosis 09/24/2012 Thinks may be relate d to metoprolol arm pain 05/10/2012 fatigue 03/07/2012 follow up 02/01/2012 6wk fwup follow up 12/20/2011 discuss labs arthropod bite 11/22/2011 painful urination 07/14/2011 abdominal pain 07/11/2011 started on augmentin 875mg/hydrocodone/flagyl 250/dicyclomine 20mg to cover UTI/diverticulitis skin lesion 07/06/2011 to left knee area wrist pain 05/26/2011 hip pain 05/16/2011 request OMT back pain 05/05/2011 S/P fall on 04/27/11 follow up 04/05/2011 Urgent Care fwup follow up 03/02/2011 Dr Rendon would like to proceed with [facility] [place] draw 01/14/2011 shortness of breath 01/05/2011 urinary urgency 11/16/2010 sore spot to upper l eft leg follow up 11/04/2010 F/U from appointment with Dr. Chase. Starting taking KCl after lab work showed hypokalemia. Pt having a lot of pain in legs, attributes that to starting KCl. ~generic 08/05/2010 F/U [facility] for co ugh, bronchitis, sinus congestions. Continues to have sinus congestion, pain and fullness. Secretions are yellow. Pt states cough is getting better. Finished ABX from [facility]. cough 07/23/2010 painful urination 06/14/2010 high blood pressure 06/07/2010 taking lisinopril HC T 20/12.5 follow up 05/12/2010 still having hoarsen ess and thinks is still related to the bystolic abdominal pain 04/27/2010 ~generic 04/19/2010 having problems with laryngitis, has concerns it may be related to Bystolic anxiety 03/09/2010 wanting a refill of alprazolam follow up 01/04/2010 2wk fwup on Bystolic follow up 12/14/2009 from [facility]/ER follow up 11/23/2009 Encounters Encounter Performer Location Codes Date ([id number]) OFFICE/OUTPATIENT VISIT EST Diagnosis: Hyperglycemia, unspecified[ICD10: R73.9] Diagnosis: Hypothyroidism[ICD10: E03.9] Diagnosis: Asthma[ICD10: J45.909] Diagnosis: Hilar lymphadenopathy[ICD10: R59.0] Diagnosis: PNEUMOCOCCAL VACCINE[ICD10: Z23] Yaima [facility]NSON [facility] CPT-4: 76108 07/03/2019 ([id number]) OFFICE/OUTPATIENT VISIT EST Diagnosis: Low back pain[ICD10: M54.5] Jane WOO [facility] CPT-4: 33645 04/12/2019 ([id number]) OFFICE/OUTPATIENT VISIT EST Diagnosis: Pain in thoracic spine[ICD10: M54.6] Diagnosis: Muscle spasm of back[ICD10: M62.830] [facility] 239[facility] 01/16/2019 ([id number]) NURSE/OUTPATIENT VISIT EST Diagnosis: Low back pain[ICD10: M54.5] Diagnosis: Hematuria, unspecified[ICD10: R31.9] [facility] 63998 01/14/2019 ([id number]) OFFICE/OUTPATIENT VISIT EST Diagnosis: Left lower quadrant pain[ICD10: R10.32] [facility] 58339 01/09/2019 ([id number]) NURSE/OUTPATIENT VISIT EST Diagnosis: Hematuria, unspecified[ICD10: R31.9] Yaima [facility] CPT-4: 97980 11/01/2018 ([id number]) OFFICE/OUTPATIENT VISIT EST Diagnosis: Hypothyroidism, unspecified[ICD10: E03.9] Diagnosis: Other fatigue[ICD10: R53.83] Diagnosis: Other cervical disc degeneration, unspecified cervical region[ICD10: M50.30] Yaima [facility] CPT-4: 98529 10/04/2018 ([id number]) OFFICE/OUTPATIENT VISIT EST Diagnosis: Hypothyroidism, unspecified[ICD10: E03.9] Diagnosis: Impaired fasting glucose[ICD10: R73.01] Diagnosis: Cervicalgia[ICD10: M54.2] Yaima [facility] CPT-4: 62142 08/06/2018 ([id number]) OFFICE/OUTPATIENT VISIT EST Diagnosis: Radiculopathy, lumbosacral region[ICD10: M54.17] Diagnosis: Abrasion, left lower leg, sequela[ICD10: S80.812S] Yaima [facility] CPT-4: 71133 06/21/2018 ([id number]) NURSE/OUTPATIENT VISIT EST Diagnosis: Urinary tract infection, site not specified[ICD10: N39.0] Yaima [facility] CPT-4: 57749 06/13/2018 ([id number]) OFFICE/OUTPATIENT VISIT EST Diagnosis: Other dorsalgia[ICD10: M54.89] [facility] 51203 05/31/2018 ([id number]) NURSE/OUTPATIENT VISIT EST Diagnosis: FLU VACCINE[ICD10: Z23] Yaima [facility] CPT-4: 89336 03/22/2018 ([id number]) OFFICE/OUTPATIENT VISIT EST Diagnosis: Hypothyroidism, unspecified[ICD10: E03.9] Diagnosis: Essential (primary) hypertension[ICD10: I10] Diagnosis: Other seasonal allergic rhinitis[ICD10: J30.2] Yaima [facility] CPT-4: 57024 02/06/2018 ([id number]) NURSE/OUTPATIENT VISIT EST Diagnosis: Laceration of blood vessel of right index finger, initial encounter[ICD10: S65.510A] Diagnosis: VACCINE FOR TDAP[ICD10: Z23] Yaima [facility] CPT-4: 48469 12/28/2017 ([id number]) OFFICE/OUTPATIENT VISIT EST Diagnosis: Tinnitus, bilateral[ICD10: H93.13] [facility]: 31055 12/18/2017 ([id number]) NURSE/OUTPATIENT VISIT EST Diagnosis: VACCIN FOR DISEASE NEC (HPV or Zostavax)[ICD10: Z23] Yaima [facility] [employer] [facility] CPT-4: 61035 10/04/2017 OFFICE/OUTPATIENT VISIT EST Diagnosis: Hypothyroidism, unspecified[ICD10: E03.9] Diagnosis: Essential (primary) hypertension[ICD10: I10] Diagnosis: Gastro-esophageal reflux disease without esophagitis[ICD10: K21.9] Diagnosis: Pain in right knee[ICD10: M25.561] Diagnosis: Hyperglycemia, unspecified[ICD10: R73.9] Yaima GAYTAN [employer] [facility] CPT-4: 15215 09/11/2017 ([id number]) OFFICE/OUTPATIENT VISIT EST Diagnosis: Cervicalgia[ICD10: M54.2] Diagnosis: Hypothyroidism, unspecified[ICD10: E03.9] Diagnosis: Essential (primary) hypertension[ICD10: I10] Diagnosis: Irritant contact dermatitis, unspecified cause[ICD10: L24.9] Diagnosis: FLU VACCINE[ICD10: Z23] Yaima MCCORMACKLINE Jw [facility] [employer] [facility] CPT-4: 52100 03/28/2017 ([id number]) OFFICE/OUTPATIENT VISIT EST Diagnosis: Influenza due to identified novel influenza A virus with other manifestations[ICD10: J09.X9] Yaima [facility]AY[facility]AN [employer] [facility] CPT-4: 61446 09/12/2016 ([id number]) OFFICE/OUTPATIENT VISIT EST Diagnosis: Dermatitis, unspecified[ICD10: L30.9] Diagnosis: Pain in right knee[ICD10: M25.561] Yaima Josuejuliannicole [facility] [employer] [facility] CPT-4: 91531 07/28/2016 ([id number]) OFFICE/OUTPATIENT VISIT EST Diagnosis: Incisional hernia without obstruction or gangrene[ICD10: K43.2] Diagnosis: Gastro-esophageal reflux disease without esophagitis[ICD10: K21.9] Diagnosis: Radiculopathy, lumbosacral region[ICD10: M54.17] Yaima Elizabeth MCCORMACKLINE Jw [facility] [employer] [facility] CPT-4: 82920 04/26/2016 ([id number]) OFFICE/OUTPATIENT VISIT EST Diagnosis: FLU VACCINE[ICD10: Z23] Yaima EUGENE DO [facility] CPT-4: 41597 04/22/2016 ([id number]) OFFICE/OUTPATIENT VISIT EST Diagnosis: Other fecal abnormalities[ICD10: R19.5] Yaima JOHNSON DO [facility] CPT-4: 04224 01/04/2016 ([id number]) OFFICE/OUTPATIENT VISIT EST 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] Diagnosis: Other specified diseases of liver[ICD10: K76.89] Diagnosis: Irritant contact dermatitis due to detergents[ICD10: L24.0] Yaima JOHNSON DO [facility] CPT-4: 96714 12/09/2015 ([id number]) OFFICE/OUTPATIENT VISIT EST Diagnosis: Pain in thoracic spine[ICD10: M54.6] Diagnosis: Radiculopathy, lumbosacral region[ICD10: M54.17] Diagnosis: Precordial pain[ICD10: R07.2] Yaima JOHNSON DO [facility] CPT-4: 58770 09/10/2015 ([id number]) OFFICE/OUTPATIENT VISIT EST Diagnosis: Nausea[ICD10: R11.0] Yaima JOHNSON DO [facility] CPT-4: 58876 07/20/2015 ([id number]) OFFICE/OUTPATIENT VISIT EST Diagnosis: Pain in left elbow[ICD10: M25.522] Diagnosis: Contusion of left lower leg, sequela[ICD10: S80.12XS] Diagnosis: Pleurodynia[ICD10: R07.81] Yaima HOWELL DO [facility] CPT-4: 85649 04/23/2015 ([id number]) OFFICE/OUTPATIENT VISIT EST Diagnosis: Unspecified abdominal pain[ICD10: R10.9] Diagnosis: Ventral hernia without obstruction or gangrene[ICD10: K43.9] Diagnosis: Constipation, unspecified[ICD10: K59.00] Yaima JOHNSON DO [facility] CPT-4: 93859 03/24/2015 ([id number]) OFFICE/OUTPATIENT VISIT EST Diagnosis: FLU VACCINE[ICD10: Z23] Yaima EUGENE DO [facility] CPT-4: 80043 03/09/2015 ([id number]) OFFICE/OUTPATIENT VISIT EST 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] Diagnosis: Generalized abdominal pain[ICD10: R10.84] Yaima JOHNSON DO [facility] CPT-4: 74736 03/05/2015 OFFICE/OUTPATIENT VISIT EST Diagnosis: ABDOMINAL PAIN[ICD9: 789.00] Diagnosis: HYPOTHYROIDISM[ICD9: 244.9] Diagnosis: HYPERTENSION[ICD9: 401.9] Diagnosis: DIVERTICULITIS, COLONIC[ICD9: 562.11] Diagnosis: DISTURBANCE OF SKIN SENSATION (Paresthesia)[ICD9: 782.0] Yaima JOHNSON DO [facility] CPT-4: 07912 02/19/2015 ([id number]) OFFICE/OUTPATIENT VISIT EST Diagnosis: HYPOTHYROIDISM[ICD9: 244.9] Diagnosis: Diaphoresis[ICD9: 780.8] Yaima DUMONT [facility] CPT-4: 24626 12/25/2014 ([id number]) OFFICE/OUTPATIENT VISIT EST Diagnosis: ABDOMINAL PAIN[ICD9: 789.00] Diagnosis: PAIN, LOWER BACK[ICD9: 724.2] Diagnosis: Contusion of leg[ICD9: 924.5] Yaima JOHNSON DO [facility] CPT-4: 72649 11/26/2014 ([id number]) OFFICE/OUTPATIENT VISIT EST Diagnosis: IBS[ICD9: 564.1] Diagnosis: GERD[ICD9: 530.81] Yaima JOHNSON DO [facility] CPT-4: 73115 11/04/2014 ([id number]) OFFICE/OUTPATIENT VISIT EST Diagnosis: Headache[ICD9: 784.0] Diagnosis: Leg pain[ICD9: 729.5] Yaima JOHNSON DO [facility] CPT-4: 31421 09/01/2014 ([id number]) OFFICE/OUTPATIENT VISIT EST Diagnosis: DYSURIA[ICD9: 788.1] Yaima JOHNSON DO [facility] CPT-4: 81109 07/10/2014 OFFICE/OUTPATIENT VISIT EST Diagnosis: VAGINITIS[ICD9: 623.5] Diagnosis: SINUSITIS, ACUTE[ICD9: 461.9] Yaima JOHNSON DO [facility] CPT-4: 36429 06/02/2014 ([id number]) OFFICE/OUTPATIENT VISIT EST Diagnosis: HYPERTENSION[ICD9: 401.9] Diagnosis: ALLERGIC RHINITIS[ICD9: 477.9] Diagnosis: PAIN, LOWER BACK[ICD9: 724.2] Yaima JOHNSON DO [facility] CPT-4: 22536 04/08/2014 ([id number]) OFFICE/OUTPATIENT VISIT EST Diagnosis: COUGH[ICD10: R05] Diagnosis: Thoracic back pain[ICD9: 724.1] Yaima JOHNSON DO [facility] CPT-4: 86741 03/05/2014 ([id number]) OFFICE/OUTPATIENT VISIT EST Diagnosis: SINUSITIS, ACUTE[ICD9: 461.9] Diagnosis: BRONCHITIS, ACUTE[ICD9: 466.0] Yaima JOHNSON DO [facility] CPT-4: 64045 07/29/2013 ([id number]) OFFICE/OUTPATIENT VISIT EST Diagnosis: ABDOMINAL PAIN[ICD9: 789.00] Diagnosis: Constipation[ICD9: 564.00] Diagnosis: DIVERTICULITIS, COLONIC[ICD9: 562.11] Yaima JOHNSON DO [facility] CPT-4: 62441 03/20/2013 ([id number]) OFFICE/OUTPATIENT VISIT EST Diagnosis: Plantar fasciitis[ICD9: 728.71] Diagnosis: ALLERGIC RHINITIS[ICD9: 477.9] Yaima JOHNSON DO [facility] CPT-4: 40664 02/12/2013 OFFICE/OUTPATIENT VISIT EST Diagnosis: Skin lesion[ICD9: 709.9] Diagnosis: Lumbar back pain[ICD9: 724.2] Diagnosis: Muscle spasm[ICD9: 728.85] Diagnosis: Hypothyroid[ICD9: 244.9] Yaima DUMONT DO [facility] CPT-4: 26949 11/05/2012 ([id number]) OFFICE/OUTPATIENT VISIT EST Diagnosis: Cervicalgia[ICD9: 723.1] Diagnosis: Thoracic back pain[ICD9: 724.1] Diagnosis: SPASM OF MUSCLE[ICD9: 728.85] Yaima JOHNSON DO [facility] CPT-4: 88280 10/04/2012 ([id number]) OFFICE/OUTPATIENT VISIT EST Diagnosis: MALAISE AND FATIGUE[ICD9: 780.79] Diagnosis: HYPOTHYROIDISM[ICD9: 244.9] Diagnosis: HYPERTENSION[ICD9: 401.9] Yaima MCWILLIAMS NDEJosr [facility] CPT-4: 12080 09/24/2012 ([id number]) OFFICE/OUTPATIENT VISIT EST Diagnosis: Lateral epicondylitis[ICD9: 726.32] Diagnosis: Wrist pain[ICD9: 719.43] Diagnosis: Numbness and tingling in right hand[ICD9: 782.0] Yaima JOHNSON DO [facility] CPT-4: 70529 05/10/2012 OFFICE/OUTPATIENT VISIT EST Diagnosis: MALAISE AND FATIGUE[ICD9: 780.79] Diagnosis: HYPOTHYROIDISM[ICD9: 244.9] Diagnosis: Enthesopathy of the wrist and carpus[ICD9: 726.4] Diagnosis: Foot pain[ICD9: 729.5] Diagnosis: DYSPHAGIA NEC[ICD9: 787.29] Yaima MCCORMACKLINE S. O RENDER DO [facility] CPT-4: 06988 03/07/2012 ([id number]) OFFICE/OUTPATIENT VISIT EST Diagnosis: HYPOTHYROIDISM[ICD9: 244.9] Yaima SAMUELS S. O RENDER DO [facility] CPT-4: 06265 02/01/2012 ([id number]) OFFICE/OUTPATIENT VISIT EST Diagnosis: MALAISE AND FATIGUE[ICD9: 780.79] Diagnosis: HYPOTHYROIDISM[ICD9: 244.9] Yaima SAMUELS S. O RENDER DO [facility] CPT-4: 41097 12/20/2011 OFFICE/OUTPATIENT VISIT EST Diagnosis: INSECT BITE HIP/LEG[ICD9: 916.4] Lizzette Lozano YAIMA Escalera [facility] CPT-4: 64992 11/22/2011 OFFICE/OUTPATIENT VISIT EST Diagnosis: HEMATURIA NOS[ICD9: 599.70] Yaima Ravi. O RENDER DO [facility] CPT-4: 58946 07/14/2011 OFFICE/OUTPATIENT VISIT EST Diagnosis: URINARY TRACT INFECTION[ICD9: 599.0] Diagnosis: DIVERTICULITIS, COLONIC[ICD9: 562.11] Yaima Escalera [facility] CPT-4: 09406 07/11/2011 OFFICE/OUTPATIENT VISIT EST Diagnosis: TMJ arthritis[ICD9: 524.69] Diagnosis: MIGRAINE NOS/NOT INTRCBL[ICD9: 346.90] Diagnosis: Rectal fissure[ICD9: 565.0] Yaima Escalera O RENDER [facility] CPT-4: 64036 07/06/2011 OFFICE/OUTPATIENT VISIT EST Diagnosis: SPASM OF MUSCLE[ICD9: 728.85] Diagnosis: PAIN, LOWER BACK[ICD9: 724.2] Yaima Escalera [facility] CPT-4: 89742 05/26/2011 OFFICE/OUTPATIENT VISIT EST Diagnosis: PAIN, LOWER BACK[ICD9: 724.2] Diagnosis: SPASM OF MUSCLE[ICD9: 728.85] Yaima JOHNSON [facility] CPT-4: 70998 05/16/2011 OFFICE/OUTPATIENT VISIT EST Diagnosis: PAIN, LOWER BACK[ICD9: 724.2] Diagnosis: ENTHESOPATHY OF HIP[ICD9: 726.5] Diagnosis: Onychomycosis[ICD9: 110.1] [facility]: 97489 05/05/2011 OFFICE/OUTPATIENT VISIT EST Diagnosis: Diverticulitis[ICD9: 562.11] Yaima Escalera [facility] CPT-4: 20943 04/05/2011 OFFICE/OUTPATIENT VISIT EST Diagnosis: CHEST PAIN NOS[ICD9: 786.50] Diagnosis: PALPITATIONS[ICD9: 785.1] Diagnosis: Pulmonary arterial hypertension[ICD9: 416.8] Yaima SAM[facility]ELS [facility] CPT-4: 76382 03/02/2011 OFFICE/OUTPATIENT VISIT EST Yaima SAMUELS [facility] CPT- 4: 70715 01/05/2011 ([id number]) OFFICE/OUTPATIENT VISIT EST Yaima AGUIRER [facility] CPT-4: 80243 11/16/2010 ([id number]) OFFICE/OUTPATIENT VISIT EST Yaima AGUIRRE [facility] CPT-4: 42596 11/04/2010 ([id number]) OFFICE/OUTPATIENT VISIT EST Yaima AGUIRRE [facility] CPT-4: 36554 08/05/2010 ([id number]) OFFICE/OUTPATIENT VISIT EST Yaima AGUIRRE [facility] CPT-4: 21942 07/23/2010 ([id number]) OFFICE/OUTPATIENT VISIT, EST Yaima ZUNIGA [facility] CPT-4: 35390 06/07/2010 ([id number]) OFFICE/OUTPATIENT VISIT, EST Yaima ZUNIGA [facility] CPT-4: 14851 05/12/2010 ([id number]) OFFICE/OUTPATIENT VISIT, EST Yaima ZUNIGA [facility] CPT-4: 19688 04/27/2010 ([id number]) OFFICE/OUTPATIENT VISIT, EST Yaimaperlita ZUNIGA [facility] CPT-4: 33780 04/19/2010 ([id number]) OFFICE/OUTPATIENT VISIT, EST Yaimaperlita ZUNIGA [facility] CPT-4: 16976 03/09/2010 ([id number]) OFFICE/OUTPATIENT VISIT, EST Yaimaperlita ZUNIGA [facility] CPT-4: 38267 01/04/2010 ([id number]) OFFICE/OUTPATIENT VISIT, ANGEL JOHNSON DO [employer] CPT-4: 34835 12/14/2009 ([id number]) OFFICE/OUTPATIENT VISIT, ANGEL Lozano YAIMA JOHNSON DO [employer] CPT-4: 81565 11/23/2009 Plan of Care Planned Activity Notes Codes Status Date Visit Diagnosis Plan: Hilar lymphadenopathy Discussion : Repeat CT scan of chest in August ICD-9 : 785.6 ICD-10 : R59.0 07/03/2019 Visit Diagnosis Plan: Hypothyroidism Discussion: Lab d iscussed ICD-9 : 244.9 ICD-10 : E03.9 07/03/2019 Visit Diagnosis Plan: Hyperglycemia, unspecified Discu ssion: Lifestyle change and repeat HbA1C in 3mos then fwup ICD-9 : 790.29 ICD-10 : R73.9 07/03/2019 Visit Diagnosis Plan: Asthma Discussion: Has proair to use prn Prevnar 13 given ICD-9 : 493.90 ICD-10 : J45.909 07/03/2019 Care Plan: COMPREH[place] : [address]-6 Pending 06/18/2019 Care Plan: LIPID PANEL LOINC : 09222-9 Pending 06/18/2019 Care Plan: A1C HPLC LOINC : 54790-7 Pending 06/18/2019 Care Plan: COMPLETE CBC W/AUTO DIFF WBC LOINC : 67851-6 Pending 06/18/2019 Care Plan: ASSAY THYROID STIM HORMONE Pen ding 06/17/2019 Care Plan: ASSAY OF FREE THYROXINE Pendin g 06/17/2019 Visit Diagnosis Plan: Low back pain Discussion: urine showed trace leukocytes and trace blood. instructed patient to start taking her skelaxin tid prn and to push fluids throughout the day. macrobid prescribed to take tomorrow if symptoms worsen despite fluids and medication. will call patient on monday with results of test. ICD-9 : 724.2 ICD-10 : M54.5 04/12/2019 Appointment: Jane Nettles [address] [place], [place] [id number] ACUTE ILLNESS 04/12/2019 Appointment: Yaima Jonhson WPtel: [facility]8 [id number] US CANCELED 02/05/2019 Visit Diagnosis Plan: Pain in thoracic spine Discussio n: Moist Heat Topical Muscle Rub Towel Stretch Skelaxin with Tylenol Arthritis TID Okay to use lidoderm patches Notify if persists ICD-9 : 724.1 ICD-10 : M54.6 01/16/2019 Appointment: Yaima Johnson WPtel: [address] [place] [address] ACUTE ILLNESS 01/16/2019 Appointment: Yaima Johnson WPtel: [address] [place] [address] UA 01/14/2019 Visit Diagnosis Plan: Left lower quadrant pain Discuss ion: Appears to have a hernia so did discuss surgical evaluation ICD-9 : 789.04 ICD-10 : R10.32 01/09/2019 Appointment: Yaima Johnson WPtel: [address] [place] [address] ACUTE ILLNESS 01/09/2019 Visit Diagnosis Plan: Encounter for [facility] adult medical examination without abnormal findings Discussion: Mediterranean diet Combinati on of cardio and weight bearing exercise Update colonoscopy Tdap up to date Had Shingrix Recommend Prevnar 13 this Fall with Influenza Vaccine Finish PT Mammogram due in January and will do lab then as well Had WWE done this year by Dr. Richards ICD-9 : V70.9 ICD-10 : Z00.00 11/21/2018 Appointment: Yaima Johnson WPtel: [address] [place] [address] WELCOME TO MEDICARE 11/21/2018 Care Plan: Referral Order SNOMED-CT : 30 [id number] Pending 11/21/2018 Appointment: Yaima Johnson WPtel: [address] [place] [address] UA 11/01/2018 Visit Diagnosis Plan: Hypothyroidism, unspecified Disc ussion: Restart synthroid at 50mcg daily and recheck lab in 3mos ICD-9 : 244.9 ICD-10 : E03.9 10/04/2018 Visit Diagnosis Plan: Other cervical dis c degeneration, unspecified cervical region Discussion: MRI results discussed fwup w ith Dr. Johnson ICD-9 : 722.4 ICD-10 : M50.30 10/04/2018 Appointment: Yaima Johnson WPtel: [phone] [id number] [facility] FOLLOW UP 10/04/2018 Care Plan: Referral Order SNOMED-CT : 30 [id number] Pending 10/04/2018 Visit Diagnosis Plan: Hypothyroidism, unspecified Disc ussion: Patient wants to try to come off meds so will decrease levothyroxine to 25mcg for 2mos then check lab and if levels stable then will try to DC levothyroxine ICD-9 : 244.9 ICD-10 : E03.9 08/06/2018 Visit Diagnosis Plan: Impaired fasting glucose Discuss ion: HbA1C has worsened so will focus on lifestyle change with getting back to diet/exercise and recheck in 6mos ICD-9 : 790.29 ICD-10 : R73.01 08/06/2018 Visit Diagnosis Plan: Cervicalgia Discussion: See neur osurgery for updated x-rays/exam--was told in past needed surgery Follow Up: 6 months ICD-9 : 723.1 ICD-10 : M54.2 08/06/2018 Appointment: Yaima Johnson WPtel: [phone] [id number] Schedule medicare annual! FOLLOW UP 2018 Patient Education: levothyroxine- [employer] Coupon [id number] [email or web address] Completed 08/06/2018 Visit Diagnosis Plan: Radiculopathy, lumbosacral regio n Discussion: Daily stretches and see if improves--low dose gabapentin trial q HS if does not improve Lab and fwup in 3mos ICD-9 : 724.4 ICD-10 : M54.17 06/21/2018 Visit Diagnosis Plan: Abrasion, left lower leg, sequel a Discussion: Vitamin E topically for scarring/dryness ICD-9 : 906.2 ICD-10 : S80.812S 06/21/2018 Appointment: Yaima Johnson WPtel: [address] [place] [address] ACUTE ILLNESS 06/21/2018 Appointment: Yaima Johnson WPtel: [address] [place] [address] UA 06/13/2018 Visit Diagnosis Plan: Other dorsalgia Discussion: urin e culture to be sent off to rule out infection as cause of symptoms. skelaxin to be sent to assist with muscle aches. will call monday with culture results. instructed to continue with mobic daily as needed and use heating pad to back. increase fluid intake as well with 6 glasses of water a day. if no improvement or worsening syptoms over the weekend, go to urgent care. ICD-9 : 724.5 ICD-10 : M54.89 05/31/2018 Appointment: Jane Nettles [address] [place] [address] ACUTE ILLNESS 05/31/2018 Appointment: Yaima Johnson WPtel: [address] [place] [address] US INJECTION 03/22/2018 Patient Education: Patient Medication Summary Completed 03/22/2018 Patient Education: INFLUENZA VACCINE CDC Completed 03/22/2018 Appointment: Yaima Johnsontel: [address] [place] [address] RESCHEDULED 02/14/2018 Visit Diagnosis Plan: Hypothyroidism, unspecified Disc ussion: Lab discussed Has had both Shingrix shots Follow Up: 6 months ICD-9 : 244.9 ICD-10 : E03.9 02/06/2018 Visit Diagnosis Plan: Essential (primary) hypertension Discussion: Stable Sees Dr. Chase later this month ICD-9 : 401.9 ICD-10 : I10 02/06/2018 Visit Diagnosis Plan: Other seasonal allergic rhinitis Discussion: Increase claritin to 10mg po BID for 1-2 weeks ICD-9 : 477.9 ICD-10 : J30.2 02/06/2018 Appointment: Yaima Johnson WPtel: [address] [place], [place] [phone] FOLLOW UP 02/06/2018 Patient Education: Patient Medication Summary Completed 02/06/2018 Appointment: Yaima Johnson WPtel: [address] [place], [place] [phone] [place] INJECTION 12/28/2017 Patient Education: Patient Medication Summary Completed 12/28/2017 Appointment: Yaima Johnson WPtel: [address] [place], [place] [phone] RESCHEDULED 12/25/2017 Visit Diagnosis Plan: Tinnitus, bilateral Discussion: See ENT for hearing eval and further workup ICD-9 : 388.31 ICD-10 : H93.13 12/18/2017 Appointment: Yaima Johnson WPtel: [address] [place], [place] [phone] ACUTE ILLNESS 12/18/2017 Patient Education: Patient Medication Summary Completed 12/18/2017 Patient Education: Tinnitus Completed 12/18/2017 Care Plan: Referral Order SNOMED-CT : [id number] Pending 12/18/2017 Appointment: Yaima Johnson WPtel: [address] [place] [address] BP CHECK 12/11/2017 Patient Education: Patient Medication Summary Completed 12/11/2017 Referral: Danyel Hernandez WPtel: [facility] [id number] Referral Initiated 10/11/2017 Appointment: Yaima Johnson WPtel: [address] [place], [place] [phone] [place] INJECTION 10/04/2017 Patient Education: Patient Medication Summary Completed 10/04/2017 Visit Diagnosis Plan: Gastro-esophageal reflux disease without esophagitis Discussion: Stable ICD-9 : 530.81 ICD-10 : K21.9 09/11/2017 Visit Diagnosis Plan: Pain in right knee Discussion: S ee orhto for injection--had surgery 1 year ago ICD-9 : 719.46 ICD-10 : M25.561 09/11/2017 Visit Diagnosis Plan: Essential (primary) hypertension Discussion: Stable Discussed Shingrix Follow Up: As needed ICD-9 : 401.9 ICD-10 : I10 09/11/2017 Visit Diagnosis Plan: Hyperglycemia, unspecified Discu ssion: Lifestyle change and recheck lab with HbA1C in 6mos Follow Up: 6 months ICD-9 : 790.29 ICD-10 : R73.9 09/11/2017 Visit Diagnosis Plan: Hypothyroidism, unspecified Disc ussion: Stable ICD-9 : 244.9 ICD-10 : E03.9 09/11/2017 Appointment: Yaima Johnson WPtel: [phone] [id number] FOLLOW UP 09/11/2017 Patient Education: Patient Medication Summary Completed 09/11/2017 Appointment: Jane Nettles [address] [place], [place] [phone] 08/28/17 1531---issue addressed in phone message (km) CANCELED 08/29/2017 Patient Education: Patient Medication Summary Completed 07/11/2017 Care Plan: A1C HPLC LOINC : 23903-0 Pending 07/11/2017 Care Plan: ASSAY OF FREE THYROXINE Pendin g 07/11/2017 Care Plan: ASSAY THYROID STIM HORMONE Pen ding 07/11/2017 Care Plan: COMPLETE CBC W/AUTO DIFF WBC LOINC : 70637-1 Pending 07/11/2017 Care Plan: COMPRE[place] : [address]-9 Pending 07/11/2017 Visit Diagnosis Plan: Irritant contact dermatitis, uns pecified cause Discussion: Topical Betamethasone ICD-9 : 692.9 ICD-10 : L24.9 03/28/2017 Visit Diagnosis Plan: Cervicalgia Discussion: Daily ne ck stretches Moist Heat ICD-9 : 723.1 ICD-10 : M54.2 03/28/2017 Visit Diagnosis Plan: Essential (primary) hypertension Discussion: Stable Flu shot given ICD-9 : 401.9 ICD-10 : I10 03/28/2017 Visit Diagnosis Plan: Hypothyroidism, unspecified Disc ussion: Lab done in February--will recheck in August and ICD-9 : 244.9 ICD-10 : E03.9 03/28/2017 Appointment: [facility]aim[facility] Johnson [facility]Ptel[facility] [phone] [id number] [facility] 03/28/2017 Patient Education: Patient Medication Summary Completed 03/28/2017 Patient Education: Patient Medication Summary Completed 02/17/2017 Care Plan: ASSAY OF FREE THYROXINE Pendin g 02/17/2017 Care Plan: ASSAY THYROID STIM HORMONE Pen ding 02/17/2017 Care Plan: A1C HPLC LOINC : 03591-6 Pending 02/17/2017 Patient Education: Patient Medication Summary Completed 11/23/2016 Care Plan: A1C HPLC LOINC : 29145-0 Pending 11/23/2016 Patient Education: Patient Medication Summary Completed 11/22/2016 Care Plan: [place] : [address]-4 Pending 11/22/2016 Care Plan: ASSAY THYROID STIM HORMONE Pen [facility] 11/22/2016 Care Plan: ASSAY OF FREE THYROXINE Pendin g 11/22/2016 Care Plan: CBC Pending 11/22/2016 Care Plan: ASSAY TRIIODOTHYRONINE (T3) Pe nding 11/22/2016 Care Plan: ASSAY OF IRON Pending Care Plan: VITAMIN B-12 Pending 11/04 Patient Education: Patient Medication Summary Completed 11/09/2016 Care Plan: US EXAM ABDO BACK WALL COMP L OINC : 49251-9 Pending 11/09/2016 Patient Education: Patient Medication Summary Completed 09/26/2016 Visit Diagnosis Plan: Influenza due to i dentified novel influenza A virus with other manifestations Discussion: Tamiflu for her and ICD-9 : 488.09 ICD-10 : J09.X9 09/12/2016 Visit NOS Plan: Plan Notes: Saline nasal flu shes prn. Tyle... 09/12/2016 Appointment: Yaima Johnson WPtel: [phone] [id number] ACUTE ILLNESS 09/12/2016 Patient Education: Patient Medication Summary Completed 09/12/2016 Visit Diagnosis Plan: Pain in right knee Discussion: M RI of right knee scheduled for this weekend by ortho ICD-9 : 719.46 ICD-10 : M25.561 07/28/2016 Visit Diagnosis Plan: Dermatitis, unspecified Discussi on: Use clotrimazole/betamethasone BID to hand rash ICD-9 : 692.9 ICD-10 : L30.9 07/28/2016 Appointment: Yaima Johnson WPtel: [address] [place], [place] [phone] 07/27 confirmed `sl ACUTE ILLNESS 07/28/2016 Patient Education: Patient Medication Summary Completed 07/28/2016 Visit Plan: Discussed core strengthening for both hernia and low back Keep stools soft so continue fiber and may add 1/4 dose of miralax 3 times a week Discussed incarceration or strangulation of hernia signs Will change protonix to pepcid 40mg daily next month and see how does 04/26/2016 Appointment: Yaima Johnson WPtel: [address] [place] [address] ACUTE ILLNESS 04/26/2016 Patient Education: Patient Medication Summary Completed 04/26/2016 Appointment: Yaima Johnson WPtel: [address] [place], [place] [phone] [place] INJECTION 04/22/2016 Patient Education: Patient Medication Summary Completed 04/22/2016 Appointment: Yaima Johnson WPtel: [address] [place] [address] Stool lab 01/04/2016 Patient Education: Patient Medication Summary Completed 01/04/2016 Visit Plan: Calmoseptine to irritated gr oin area Discussed that liver lesion and right kidney cyst are stable dating back to 2009 so likely benign and will recheck in 1year Check CMP and CBC 12/09/2015 Appointment: Yaima Johnson WPtel: [address] [place], [place] [phone] FOLLOW UP 12/09/2015 Patient Education: Patient Medication Summary Completed 12/09/2015 Patient Education: Patient Medication Summary Completed 11/26/2015 Care Plan: ECHO EXAM OF ABDOMEN LOINC : 98271-4 Pending 11/26/2015 Care Plan: US EXAM ABDO BACK WALL COMP L OINC : 19610-4 Pending 11/26/2015 Patient Education: Patient Medication Summary Completed 11/10/2015 Care Plan: ASSAY THYROID STIM HORMONE Pen ding 11/10/2015 Care Plan: ASSAY OF FREE THYROXINE Pendin g 11/10/2015 Visit Plan: Start PT for both right leg sciatica and thoracics for chest pain 09/10/2015 Appointment: Yiama Johnson WPtel: [address] [place], [place] [phone] ACUTE ILLNESS 09/10/2015 Patient Education: Patient Medication Summary Completed 09/10/2015 Appointment: Yaima Johnson WPtel: [address] [place], [place] [phone] [place] INJECTION 07/20/2015 Patient Education: Patient Medication Summary Completed 07/20/2015 Patient Education: Patient Medication Summary Completed 05/04/2015 Visit Plan: Observe left elbow for next 2 weeks and if not improving let us know Observe left leg bruising Can use voltaren gel to elbow Observe ribs Lidoderm patch for SI joint 04/23/2015 Appointment: Yaima Johnson WPtel: [address] [place], [place] [phone] FOLLOW UP 04/23/2015 Patient Education: Patient Medication Summary Completed 04/23/2015 Patient Education: Patient Medication Summary Completed 04/20/2015 Visit Plan: Discussed CT results Add Milton alax 1/2 cap every other day 03/24/2015 Appointment: Yaima Johnson WPtel: [address] [place], [place] [phone] 03/23 confirmed~sl FOLLOW UP 03/24/2015 Patient Education: Patient Medication Summary Completed 03/24/2015 Appointment: Yaima Johnson WPtel: [address] [place], [place] [phone] [place] INJECTION 03/09/2015 Patient Education: Patient Medication Summary Completed 03/09/2015 Visit Plan: Check CT scan of abdomen and pelvis with oral contrast Thoracic towel stretch 03/05/2015 Appointment: Yaima Johnson WPtel: [address] [place], [place] [phone] [place] FOLLOW UP 03/05/2015 Patient Education: Patient Medication Summary Completed 03/05/2015 Referral: Richmond Berger WPtel: [address] [id number] [place] Referral Initiated 02/23/2015 Visit Plan: Lab discussed--will keep thy roid dose the same Start back daily stretches Start carpal tunnel brace for left hand--for sleep, long drives and repetitive activities Increase protonix back up to BID and see Dr. Berger for EGD due to ongoing problems and history of esophageal stricture May use voltaren gel to right SI joint and left knee 02/19/2015 Appointment: Yaima Johnson WPtel: [address] [place], [place] [phone] 02/18/15 lm confirmed with cb FOLLOW UP Patient Education: Patient Medication Summary Completed 02/19/2015 Patient Education: Patient Medication Summary Completed 02/04/2015 Appointment: Yaima Johnson WPtel: [address] [place], [place] [phone] FOLLOW UP 01/06/2015 Visit Plan: Decrease levothyroxine to 50 mcg daily Recheck TSH and Free T4 in 2mos then fwup 12/25/2014 Appointment: Yaima Johnson WPtel: [address] [place], [place] [phone] ACUTE ILLNESS 12/25/2014 Patient Education: Patient Medication Summary Completed 12/25/2014 Patient Education: [facility] - [employer]aving [employer] - Levothyroxine - 18-64 - Dynamic Portal ID Completed 12/25/2014 Patient Education: Patient Medication Summary Completed 12/15/2014 Visit Plan: Observe left leg keep meds s robert Has scheduled for 2nd epidural Recheck 3-4weeks after next epidural 11/26/2014 Appointment: Yaima Johnson WPtel: [phone] [id number] 11/25 appt confirmed cn FOLLOW UP 11/27/19 15 Patient Education: Patient Medication Summary Completed 11/26/2014 Visit Plan: Increase Protonix to 40mg po BID Add Bentyl 10mg BID and up to TID prn Patient goes for back injection in 3 weeks Fwup 1 week after back injection 11/04/2014 Appointment: Yaima Johnsontel: [address] [place], [place] [phone] 11/03/ / 11/04 appt confirmed ACUTE ILLNESS 0 11/04/2014 Patient Education: Patient Medication Summary Completed 11/04/2014 Appointment: Yaima Johnsontel: [address] [place], [place] [phone] 10/14/14: doing better-canceled appt-lb ACUTE ILL NESS 10/15/2014 Visit Plan: hydration stop benadryl Obse rve and monitor Headaches Leg stretches, going to PT today-have them show stretches Notify if headaches, leg pain return/persist 09/01/2014 Appointment: Yaima Johnsontel: [address] [place] [address] ACUTE ILLNESS 09/01/2014 Patient Education: Patient Medication Summary Completed 09/01/2014 Patient Education: Patient Medication Summary Completed 08/05/2014 Care Plan: ASSAY OF FREE THYROXINE Ordere d 08/05/2014 Care Plan: ASSAY THYROID STIM HORMONE Ord ered 08/05/2014 Appointment: Yaima Johnsontel: [address] [place], [place] [phone] [place] [address] 07/10/2014 Patient Education: Patient Medication Summary Completed 07/10/2014 Patient Education: Patient Medication Summary Completed 07/03/2014 Care Plan: HEPATIC FUNCTION PANEL Ordered 07/03/2014 Visit Plan: Vaginal ring unable to be in serted do will have to stick with pill vaginally as prescribed for at least 6mo trial Saline nasal flushes and restart flonase 06/02/2014 Appointment: Yaima Johnsontel: [address] [place], [place] [phone] FOLLOW UP 06/02/2014 Patient Education: Patient Medication Summary Completed 06/02/2014 Appointment: Yaima Johnsonl: [address] [place] [address] BP CHECK 05/26/2014 Patient Education: Patient Medication Summary Completed 05/26/2014 Patient Education: Patient Medication Summary Completed 05/22/2014 Appointment: Yaima Johnson WPtel: [address] [place] [address] BP CHECK 05/07/2014 Patient Education: Patient Medication Summary Completed 05/07/2014 Referral: Nitesh Avalos WPtel: [address] [address] [id number] MRI Scheduled at [facility], 04/17 3pm Completed 04/30/2014 Appointment: Yaima Johnson WPtel: [address] [place] [address] BP CHECK 04/15/2014 Visit Plan: Decrease premarin to 0.3125m g for 1week then stop Restart estrogen vaginal tabs and Patient requests to see Dr. Restrepo for back but discussed at this time appears to need conservative management such as PT and epidurals Moniter BP 04/08/2014 Appointment: Yaima Johnson WPtel: [address] [place] [address] ACUTE ILLNESS 04/08/2014 Patient Education: Patient Medication Summary Completed 04/08/2014 Appointment: Yaima Johnson WPtel: [address] [place] [address] ACUTE ILLNESS 03/10/2014 Visit Plan: Thoracic stretches daily Ske laxin 800mg BID Use vimovo prn Use gemma prn 03/05/2014 Appointment: Yaima Johnson WPtel: [address] [place] [address] ACUTE ILLNESS 03/05/2014 Patient Education: Patient Medication Summary Completed 03/05/2014 Visit Plan: Saline nasal flushes prn. Ty lenol/Motrin prn headache. Notify if persists/symptoms worsening. Zithromax and Prednisone Supportive care. Rest, Fluids, Tylenol/Motrin prn fever or bodyaches. Notify if worsening symptoms. 07/29/2013 Appointment: Mimi Keenan WPtel: [address] [place], [place] [phone] FOLLOW UP 07/29/2013 Patient Education: Patient Medication Summary Completed 07/29/2013 Appointment: Mimi Keenan WPtel: [address] [place] [address] 05/22 patient called back and reschedule d 05/24 not set up yet ACUTE ILLNESS 05/27/20 13 Visit Plan: Add miralax Cipro/Flagyl Pt has appointment with GI in NOV 03/20/2013 Appointment: Yaima Johnson WPtel: [address] [place] [address] ACUTE ILLNESS 03/20/2013 Patient Education: Patient Medication Summary Completed 03/20/2013 Visit Plan: Tullicups Stretches, ice, vo ltaren gel TID 02/12/2013 Appointment: Yaima Johnson WPtel: [address] [place] [address] ACUTE ILLNESS 02/12/2013 Patient Education: Patient Medication Summary Completed 02/12/2013 Visit Plan: will notify if symtpoms wors en on finger. Septra DS and mupirocin (pt thinks has some from last year) Will keep covered with band aid. Pt to continue Vimovo, skelaxin and biofreeze. Pt. states was unaware she should be taking these despite instructions to do so at Dr. Johnson visit on 05 Oct 2012. 11/05/2012 Appointment: Lizzette Lozano WPtel: [address] [place], [place] [phone] ACUTE ILLNESS 11/05/2012 Patient Education: Patient Medication Summary Completed 11/05/2012 Appointment: Yaima Johnson WPtel: [address] [place], [place] [address] FOLLOW UP 10/04/2012 Patient Education: Patient Medication Summary Completed 10/04/2012 Visit Plan: Change toprol back to bystol ic BP check in 3wks Continue to observe hands--no observed bruising today 09/24/2012 Appointment: Yaima Johnsontel: [address] [place], [place] [id number] 09/21 left message ACUTE ILLNESS 09/24/2012 Patient Education: Patient Medication Summary Completed 09/24/2012 Visit Plan: Proceed with EMG of RUE Cont inue vimovo and skelaxin May use Voltaren gel TID to elbow and wrist 05/10/2012 Appointment: Yaima Johnsontel: [address] [place], [place] [phone] 05/09 left voicemail ACUTE ILLNESS 05/10/2012 Patient Education: Patient Medication Summary Completed 05/10/2012 Visit Plan: Vimovo every other day Spica wrist splint to right hand Increase levothyroxine to 75mcg daily Continue wide width shoes Will obtain most recent scope results and see if EGD was done in Jul of this year--pt has had to have esophageal dilation in past Salin spray to nares--bleeding is improving 03/07/2012 Appointment: Yaima Johnsontel: [address] [place], [place] [phone] FOLLOW UP 03/07/2012 Patient Education: Patient Medication Summary Completed 03/07/2012 Visit Plan: Continue current dose Check TSH, Free T4 in 2mos 02/01/2012 Appointment: Yaima Johnson WPtel: [address] [place], [place] [phone] [place] FOLLOW UP 02/01/2012 Patient Education: Patient Medication Summary Completed 02/01/2012 Visit Plan: Levothyroxine 50mcg po daily 12/20/2011 Appointment: Yamia Johnsontel: [address] [place], [place] [phone] [place] FOLLOW UP 12/20/2011 Patient Education: Patient Medication Summary Completed 12/20/2011 Appointment: Lizzette Lozanol: [address] [place], [place] [phone] ACUTE ILLNESS 11/22/2011 Patient Education: Patient Medication Summary Completed 11/22/2011 Appointment: Yaima Johnson WPtel: [address] [place], [place] [phone] UA 07/14/2011 Patient Education: Patient Medication Summary Completed 07/14/2011 Visit Plan: Finish current abx Clear liq uids to full liquids and then advance as tolerated If worsens will notify immediately Schedule with Dr. Berger for colonoscopy/EGD 07/11/2011 Appointment: Yaima Johnson WPtel: [address] [place] [address] ER Follow UP 07/11/2011 Patient Education: Patient Medication Summary Completed 07/11/2011 Visit Plan: Take treximet today and skel axin at bedtime Add anusol cream for 1wk Discussed if colon continues to flare-up over the next 6mos will repeat colonoscopy 07/06/2011 Appointment: Yaima Johnson WPtel: [address] [place] [address] ACUTE ILLNESS 07/06/2011 Patient Education: Patient Medication Summary Completed 07/06/2011 Appointment: Yaima Johnson WPtel: [address] [place], [place] [phone] INJECTION 06/28/2011 Patient Education: Patient Medication Summary Completed 06/28/2011 Visit Plan: OMT done Increase Skelaxin t o TID Start PT Daily stretches 05/26/2011 Appointment: Yaima Johnson WPtel: [address] [place] [address] ACUTE ILLNESS 05/26/2011 Patient Education: Patient Medication Summary Completed 05/26/2011 Visit Plan: OMT done Daily stretches, bi ofreeze Restart skelaxin 05/16/2011 Appointment: Yaima Johnson WPtel: [address] [place], [place] [address] [place] OMT 05/16/2011 Patient Education: Patient Medication Summary Completed 05/16/2011 Visit Plan: OMT done to back Stretches, moist heat and biofreeze Observe toenails 05/05/2011 Appointment: Yaima Johnson WPtel: [address] [place], [place] [phone] ACUTE ILLNESS 05/05/2011 Patient Education: Patient Medication Summary Completed 05/05/2011 Visit Plan: Finish Flagyl Continue Cultu relle and add Levbid for 1more week 04/05/2011 Appointment: Yaima Johnson WPtel: [address] [place] [address] ER Follow UP 04/05/2011 Patient Education: Patient Medication Summary Completed 04/05/2011 Appointment: Lizzette Lozano WPtel: [address] [place] [address] ACUTE ILLNESS 03/25/2011 Appointment: Yaima Johnson WPtel: [address] [place], [place] [phone] UA 03/23/2011 Patient Education: Patient Medication Summary Completed 03/23/2011 Visit Plan: Recommend proceed with heart cath Will check PFTs 03/02/2011 Appointment: Yaima Johnson WPtel: [address] [place], [place] [phone] [place] FOLLOW UP 03/02/2011 Patient Education: Patient Medication Summary Completed 03/02/2011 Appointment: Yaima Johnson WPtel: [address] [place], [place] [phone] [place] LAB 01/14/2011 Patient Education: Patient Medication Summary Completed 01/14/2011 Appointment: Lizzette Lozano WPtel: [address] [place], [place] [phone] ACUTE ILLNESS 01/05/2011 Patient Education: Patient Medication Summary Completed 01/05/2011 Visit Plan: Once again stressed importan ce of using premarin vaginal cream routinely to see if helps urinary symptoms Will culture urine Will observe lipomas--discussed may see surgery for removal 11/16/2010 Appointment: Yaima Johnson WPtel: [address] [place] [address] ACUTE ILLNESS 11/16/2010 Patient Education: Patient Medication Summary Completed 11/16/2010 Visit Plan: Injection to bursa as above Pt will continue to moniter BP and pulse off meds Repeat potassium level in 1wk 11/04/2010 Appointment: Yaima Johnson WPtel: [address] [place] [address] US FOLLOW UP 11/04/2010 Patient Education: Patient Medication Summary Completed 11/04/2010 Appointment: Yaima Johnson WPtel: [address] [place] [address] US FOLLOW UP 08/05/2010 Patient Education: Patient Medication Summary Completed 08/05/2010 Appointment: Yaima Johnson WPtel: [address] [place] [address] ACUTE ILLNESS 07/23/2010 Patient Education: Patient Medication Summary Completed 07/23/2010 Appointment: Yaima Johnson WPtel: [address] [place] [address] US UA 07/05/2010 Patient Education: Patient Medication Summary Completed 07/05/2010 Appointment: Yaima Johnson WPtel: [address] [place] [address] BP CHECK 06/28/2010 Patient Education: Patient Medication Summary Completed 06/28/2010 Appointment: Yaima Johnson WPtel: [address] [place] [address] US UA 06/14/2010 Appointment: Yaima Johnson WPtel: [address] [place] [address] BP CHECK 06/14/2010 Appointment: Yaima Johnson WPtel: [address] [place], [place] [phone] [place] BP CHECK 06/14/2010 Patient Education: Patient Medication Summary Completed 06/14/2010 Patient Education: Patient Medication Summary Completed 06/14/2010 Appointment: Yaima Johnson WPtel: [address] [place], [place] [phone] [place] BP CHECK 06/10/2010 Visit Plan: Decrease lisinopril hct to 1 0/12.5mg QD and moniter BP BP check in 2-3wks--if pulse is increasing will go back to bystolic See ENT to evaluate hoarseness 06/07/2010 Appointment: Yaima Johnson WPtel: [address] [place], [place] [phone] FOLLOW UP 06/07/2010 Patient Education: Patient Medication Summary Completed 06/07/2010 Visit Plan: BP re-check is 130/90. Will hold Bystolic and take Lisinopril/HCTZ for approx. one month. Pt. is advised to check her blood pressure at least twice weekly at home as she reports that she has a home monitor. Follow up in one month. Pt was just seen at [facility] today for back injury and given several medications for back injury. (See printoff) 05/12/2010 Appointment: Lizzette Lozano WPtel: [address] [place] [address] ACUTE ILLNESS 05/12/2010 Patient Education: Patient Medication Summary Completed 05/12/2010 Visit Plan: Continue Bentyl at QA and H S Continue protonix but increase to BID for 5-7 days If any fever or signs of divertuclitis develop notify 04/27/2010 Appointment: Yaima Johnson WPtel: [address] [place], [place] [address] ACUTE ILLNESS 04/27/2010 Patient Education: Patient Medication Summary Completed 04/27/2010 Visit Plan: flako note. Refils. Alp razolam #90, -written RX 04/19/2010 Appointment: Lizzette Lozano WPtel: [address] [place], [place] [address] ACUTE ILLNESS 04/19/2010 Patient Education: Patient Medication Summary Completed 04/19/2010 Appointment: Yaima Johnsontel: [address] [place] [address] 04/12/2010 Patient Education: Patient Medication Summary Completed 04/12/2010 Appointment: Yaima Johnson WPtel: [address] [place] [address] 04/08/2010 Patient Education: Patient Medication Summary Completed 04/08/2010 Appointment: Yaima Johnson WPtel: [address] [place] [address] FOLLOW UP 03/09/2010 Patient Education: Patient Medication Summary Completed 03/09/2010 Appointment: Yaima Johnson WPtel: [address] [place] [address] BP CHECK 01/19/2010 Patient Education: Patient Medication Summary Completed 01/19/2010 Visit Plan: Check CT head Increase Bysto lic to 5mg QD BP check in 2wks 01/04/2010 Appointment: Yaima Johnsontel: [address] [place] [address] ACUTE ILLNESS 01/04/2010 Patient Education: Patient Medication Summary Completed 01/04/2010 Appointment: Yaima Johnsontel: [address] [place] [address] BP CHECK 12/21/2009 Patient Education: Patient Medication Summary Completed 12/21/2009 Visit Plan: Change cenestin back to Liu emigdio Cont to moniter BP BP check in 1wk 12/14/2009 Appointment: Yaima Johnson WPtel: [address] [place] [address] FOLLOW UP 12/14/2009 Patient Education: Patient Medication Summary Completed 12/14/2009 Appointment: Lizzette Lozano WPtel: [address] [place], [place] [id number] [place] FOLLOW UP 11/23/2009 Patient Education: Patient Medication Summary Completed 11/23/2009 Appointment: Elizabeth Yaima BreonnaRobin WPtel: [phone] [id number] [place] LAB 09/29/2009 Patient Education: Patient Medication Summary Completed 09/29/2009 Appointment: Yaima Johnson BreonnaRobin WPtel: [phone] [id number] [place] LAB 08/12/2009 Patient Education: Patient Medication Summary Completed 08/12/2009 Referral: Richmond Berger WPtel: [phone] [id number] [place] Referral Appointment Requested Referral: Jayce Boyce WPtel: [address] [id number] [place] Referral Appointment Requested Referral: Naldo Johnson WPtel: [address] [id number] [place] Referral Initiated Referral: Naldo Johnson WPtel: [address] [id number] [place] Referral Appointment Requested Instructions Comment . Discussed core strengthening for both hernia and low back Keep stools soft so continue fiber and may add 1/4 dose of miralax 3 times a week Discussed incarceration or strangulation of hernia signs Will change protonix to pepcid 40mg daily next month and see how does . Calmoseptine to irritated groin area Discussed that liver lesion and right kidney cyst are stable dating back to 2009 so likely benign and will recheck in 1year Check CMP and CBC . Start PT for both right leg sciatica a nd thoracics for chest pain . Observe left elbow for next 2 weeks an d if not improving let us know Observe left leg bruising Can use voltaren gel to elbow Observe ribs Lidoderm patch for SI joint . Discussed CT results Add Miralax 1/2 cap every other day . Check CT scan of abdomen and pelvis wi th oral contrast Thoracic towel stretch . Lab discussed--will keep thyroid dose the same Start back daily stretches Start carpal tunnel brace for left hand--for sleep, long drives and repetitive activities Increase protonix back up to BID and see Dr. Berger for EGD due to ongoing problems and history of esophageal stricture May use voltaren gel to right SI joint and left knee . Decrease levothyroxine to 50mcg daily Recheck TSH and Free T4 in 2mos then fwup . Observe left leg keep meds same Has scheduled for 2nd epidural Recheck 3-4weeks after next epidural . Increase Protonix to 40mg po BID Add Bentyl 10mg BID and up to TID prn Patient goes for back injection in 3 weeks Fwup 1 week after back injection . hydration stop benadryl Observe and monitor Headaches Leg stretches, going to PT today-have them show stretches Notify if headaches, leg pain return/persist . Vaginal ring unable to be inserted do will have to stick with pill vaginally as prescribed for at least 6mo trial Saline nasal flushes and restart flonase . Decrease premarin to 0.3125mg for 1wee k then stop Restart estrogen vaginal tabs and Patient requests to see Dr. Restrepo for back but discussed at this time appears to need conservative management such as PT and epidurals Moniter BP . Thoracic stretches daily Skelaxin 800mg BID Use vimovo prn Use gemma prn . Saline nasal flushes prn. Tylenol/Mot rin prn headache. Notify if persists/symptoms worsening. Zithromax and Prednisone Supportive care. Rest, Fluids, Tylenol/Motrin prn fever or bodyaches. Notify if worsening symptoms. . Add miralax Cipro/Flagyl Pt has appointment with GI in APR . ups Stretches, ice, voltaren gel TID . will notify if symtpoms worsen on fing er. Septra DS and mupirocin (pt thinks has some from last year) Will keep covered with band aid. Pt to continue Vimovo, skelaxin and biofreeze. Pt. states was unaware she should be taking these despite instructions to do so at Dr. Johnson visit on 05 Oct 2012. . Change toprol back to bystolic BP check in 3wks Continue to observe hands--no observed bruising today . Proceed with EMG of RUE Continue vimovo and skelaxin May use Voltaren gel TID to elbow and wrist . Vimovo every other day Spica wrist splint to right hand Increase levothyroxine to 75mcg daily Continue wide width shoes Will obtain most recent scope results and see if EGD was done in Jul of this year--pt has had to have esophageal dilation in past Salin spray to nares--bleeding is improving . Continue current dose Check TSH, Free T4 in 2mos . Levothyroxine 50mcg po daily . Finish current abx Clear liquids to full liquids and then advance as tolerated If worsens will notify immediately Schedule with Dr. Berger for colonoscopy/EGD . Take treximet today and skelaxin at be dtime Add anusol cream for 1wk Discussed if colon continues to flare-up over the next 6mos will repeat colonoscopy . OMT done Increase Skelaxin to TID Start PT Daily stretches . OMT done Daily stretches, biofreeze Restart skelaxin . OMT done to back Stretches, moist heat and biofreeze Observe toenails . Finish Flagyl Continue Culturelle and add Levbid for 1more week . Recommend proceed with heart cath Will check PFTs . Once again stressed importance of usin g premarin vaginal cream routinely to see if helps urinary symptoms Will culture urine Will observe lipomas--discussed may see surgery for removal . Injection to bursa as above Pt will continue to moniter BP and pulse off meds Repeat potassium level in 1wk . Decrease lisinopril hct to 10/12.5mg Q D and moniter BP BP check in 2-3wks--if pulse is increasing will go back to bystolic See ENT to evaluate hoarseness . BP re-check is 130/90. Will hold Byst olic and take Lisinopril/HCTZ for approx. one month. Pt. is advised to check her blood pressure at least twice weekly at home as she reports that she has a home monitor. Follow up in one month. Pt was just seen at [facility] today for back injury and given several medications for back injury. (See printoff) . Continue Bentyl at QAC and HS Continue protonix but increase to BID for 5-7 days If any fever or signs of divertuclitis develop notify . culturelle note. Refils. Alprazolam # 90, -written RX . Check CT head Increase Bystolic to 5mg QD BP check in 2wks . Change cenestin back to Premarin Cont to moniter BP BP check in 1wk Medical Equipment No Medical Equipment data Health Concerns Section Health Concerns data not found Goals Section Goals data not found Interventions Section Interventions data not found Health Status Evaluations/Outcomes Section Health Status Evaluations/Outcomes data not found Advance Directives No Advance Directive data
--- OUTSIDE RECORDS SUMMARY | 2019-08-15 06:04 | XMS REPORT | CCD ---
Author Author Fay Johnson D.O. Organization [facility] Address [address] [place] [address] Phone Care Team Providers Care Mental Health Associate Name Role Phone Yaima Johnson D.O., PP Unavailable CCM Unavailable Summary Purpose Interface Exchange Insurance Providers Payer name Policy type / Coverage type Covered alliance party ID Effective Begin Date Effective End Date WPS MEDICARE PART B [place] Medicare Part B [id number] 2018 Unknown [employer] [facility] Medicare Part B [id number] 2018 Unknown Family History Family History data not found Social History Social History Element Codes Description Effective Dates Marital status Unknown 05/16/[address]: 733912641 Never smoker 04/05/2011 Allergies, Adverse Reactions, Alerts [...] Instructions Probiotic 10 billion cell capsule RxNorm: 4856508 1 Capsule(s) O ral QD 07/03/2019 No Stop Date Active cetirizine 10 mg tablet RxNorm: 9816494 1 Tablet(s) Oral QD 020 No Stop Date Active levothyroxine 50 mcg tablet RxNorm: 396064 1 Tablet(s) Oral QD 06/0612/20/2019 Active Macrobid 100 mg capsule RxNorm: 149465 1 Capsule(s) Oral two ti mes a day 04/12/2019 04/19/2019 Inactive Toprol XL 25 mg tablet,extended release RxNorm: 374839 1 Tablet (s) PO QD 03/13/2019 09/08/2019 Active Generic For:TOPROL X L 25MG TAB SA 12/21/2015 9:08:41 AM Mobic 7.5 mg tablet RxNorm: 245155 1 Tablet(s) PO QOD opposite days as aleve 11/21/2018 11/21/2018 Inactive dicyclomine 10 mg capsule RxNorm: 181659 1 Capsule(s) P O TID as needed for abdominal pain 08/23/2018 No Stop Date Active alprazolam 0.25 mg tablet RxNorm: 857063 1 Tablet(s) PO Q8H as needed for anxiety 08/10/2018 11/20/2018 Inactive [AttnRPh: Saving apply/adjudicate RxGRP:SG20 RxBIN:[id number] RxPCN: ID#:[id number]] levothyroxine 25 mcg tablet RxNorm: 451166 1 Tablet(s) PO QD replaces 50mcg dose 08/06/2018 10/04/2018 Inactive levothyroxine 25 mcg tablet RxNorm: 284934 1 Tablet(s) PO QD replaces 50mcg dose 08/06/2018 08/05/2018 Inactive levothyroxine 50 mcg tablet RxNorm: 621595 1 Tablet(s) PO QD 201808/05/2018 Inactive Generic For:*SYNTHROID 0.05M G TAB 08/09/2016 8:59:33 AM Mobic 7.5 mg tablet RxNorm: 545038 1 Tablet(s) PO QOD opposite days as aleve 07/10/2018 09/07/2018 Inactive Mobic 7.5 mg tablet RxNorm: 261938 1 Tablet(s) PO QD 07/10/201807/09 Inactive Toprol XL 25 mg tablet,extended release RxNorm: 616664 1 Tablet (s) PO QD 06/18/2018 03/12/2019 Inactive Generic For:TOPROL X L 25MG TAB SA 12/21/2015 9:08:41 AM amoxicillin 500 mg capsule RxNorm: 272512 1 Capsule(s) PO TID 06/0406/10/2018 Inactive amoxicillin 500 mg capsule RxNorm: 774581 1 Capsule(s) PO TID 06/0406/03/2018 Inactive Skelaxin 800 mg tablet RxNorm: 784175 1 Tablet(s) PO BI D as needed for muscle spasm 05/31/2018 No Stop Date Active levothyroxine 50 mcg tablet RxNorm: 102119 1 Tablet(s) PO QD 201707/25/2018 Inactive Generic For:*SYNTHROID 0.05M G TAB 08/09/2016 8:59:33 AM Toprol XL 25 mg tablet,extended release RxNorm: 958386 1 Tablet (s) PO QD 12/19/2017 06/16/2018 Inactive Generic For:TOPROL X L 25MG TAB SA 12/21/2015 9:08:41 AM ranitidine 150 mg tablet RxNorm: 252560 1 Tablet(s) PO BID 12/12/19 18 05/31/2018 Inactive levothyroxine 50 mcg tablet RxNorm: 948189 1 Tablet(s) PO QD TAKE 1 TABLET BY MOUTH EVERY DAY 08/03/2017 02/02/2018 Inactive Generic For:*SYN THROID 0.05MG TAB 08/09/2016 8:59:33 AM Singulair 10 mg tablet RxNorm: 924443 1 Tablet(s) PO QHS 07/11/2017 0 09/10/2017 Inactive dicyclomine 10 mg capsule RxNorm: 099127 1 Capsule(s) P O TID as needed for abdominal pain 06/08/2017 08/22/2018 Inactive ranitidine 150 mg tablet RxNorm: 613967 1 Tablet(s) PO BID 06/08/19 18 09/05/2017 Inactive Toprol XL 25 mg tablet,extended release RxNorm: 717545 1 Tablet (s) PO QD 06/08/2017 12/19/2017 Inactive Generic For:TOPROL X L 25MG TAB SA 12/21/2015 9:08:41 AM betamethasone dipropionate 0.05 % topical cream RxNorm: 2389 20 1 Application TOP QHS 03/28/2017 10/03/2018 Inactive levothyroxine 50 mcg tablet RxNorm: 148030 1 Tablet(s) PO QD TAKE 1 TABLET BY MOUTH EVERY DAY 02/03/2017 08/01/2017 Inactive Generic For:*SYN THROID 0.05MG TAB 08/09/2016 8:59:33 AM ranitidine 150 mg tablet RxNorm: 248474 1 Tablet(s) PO BID 12/16/19 17 06/08/2017 Inactive Toprol XL 25 mg tablet,extended release RxNorm: 709120 1 Tablet (s) PO QD 12/15/2016 06/08/2017 Inactive Generic For:TOPROL X L 25MG TAB SA 12/21/2015 9:08:41 AM ranitidine 150 mg tablet RxNorm: 173320 1 Tablet(s) PO BID 11/12/19 17 12/10/2016 Inactive ranitidine 75 mg tablet RxNorm: 134292 1 Tablet(s) PO QD 10/21/2016 0 11/10/2016 Inactive ranitidine 75 mg tablet RxNorm: 493325 1 Tablet(s) PO QD 10/21/2016 0 10/20/2016 Inactive Tamiflu 75 mg capsule RxNorm: 790462 1 Capsule(s) PO BID 09/12/2016 0 09/16/2016 Inactive Promethegan 25 mg rectal suppository RxNorm: 705802 1 S uppository RTL Q4H as needed 09/12/2016 03/27/2017 Inactive levothyroxine 50 mcg tablet RxNorm: 024383 TAKE 1 TABLET BY GIDEON TH EVERY DAY 08/09/2016 02/03/2017 Inactive Generic For:*SYNTHRO ID 0.05MG TAB 08/09/2016 8:59:33 AM famotidine 40 mg tablet RxNorm: 639826 1 Tablet(s) PO BID 07/22/2016 10/20/2016 Inactive clotrimazole-betamethasone 1 %-0.05 % topical cream RxNorm: 978414 1 Application TOP BID to rash prn--was supposed to be cream not lotion 06/23/2016 Inactive famotidine 40 mg tablet RxNorm: 002284 1 Tablet(s) PO BID 06/23/2016 07/21/2016 Inactive Toprol XL 25 mg tablet,extended release RxNorm: 019123 1 Tablet (s) PO QD 06/14/2016 12/15/2016 Inactive Generic For:TOPROL X L 25MG TAB SA 12/21/2015 9:08:41 AM dicyclomine 10 mg capsule RxNorm: 351928 1 Capsule(s) P O TID as needed for abdominal pain 04/26/2016 06/07/2017 Inactive dicyclomine 10 mg capsule RxNorm: 011199 1 Capsule(s) P O TID as needed for abdominal pain 04/26/2016 06/08/2017 Inactive famotidine 40 mg tablet RxNorm: 056934 1 Tablet(s) PO QD 04/26/2016 0 06/22/2016 Inactive Protonix 40 mg tablet,delayed release RxNorm: 868526 1 Tablet(s ) PO QD 02/05/2016 03/27/2017 Inactive levothyroxine 50 mcg tablet RxNorm: 069826 1 Tablet(s) PO QD 201507/22/2016 Inactive Toprol XL 25 mg tablet,extended release RxNorm: 801487 TAKE ONE TABLET BY MOUTH EVERY DAY 12/21/2015 06/14/2016 Inactive Generic For:TOPR OL XL 25MG TAB SA 12/21/2015 9:08:41 AM Protonix 40 mg tablet,delayed release RxNorm: 820030 1 Tablet(s ) PO QD 07/27/2015 01/22/2016 Inactive levothyroxine 50 mcg tablet RxNorm: 355787 1 Tablet(s) PO QD 201501/17/2016 Inactive Phenergan 25 mg rectal suppository RxNorm: 346421 1 Sup pository RTL Q4H as needed for nausea and vomiting 07/20/2015 12/08/2015 Inactive Toprol XL 25 mg tablet,extended release RxNorm: 024384 1 Tablet (s) PO QD 06/15/2015 12/11/2015 Inactive clotrimazole-betamethasone 1 %-0.05 % topical cream RxNorm: 019015 1 Application TOP BID to rash prn--was supposed to be cream not lotion 05/20/2015 Inactive Protonix 40 mg tablet,delayed release RxNorm: 762460 1 Tablet(s) 1 Tablet(s) PO QD 04/23/2015 07/27/2015 Inactive levothyroxine 50 mcg tablet RxNorm: 747345 1 Tablet(s) PO QD 201407/21/2015 Inactive Lidoderm 5 % (700 mg/patch) adhesive patch RxNorm: 4888680 1-2 Unit Dose TOP QD on for 12hrs then off for 12hrs 04/23/2015 03/27/2016 Inactive Miralax 17 gram oral powder packet RxNorm: 850426 1/2 U nit Dose PO every other day 03/24/2015 03/29/2015 Inactive levothyroxine 50 mcg tablet RxNorm: 806226 1 Tablet(s) PO QD 201404/19/2015 Inactive dicyclomine 10 mg capsule RxNorm: 757422 1 Capsule(s) P O TID as needed for abdominal pain 02/19/2015 04/25/2016 Inactive dicyclomine 10 mg capsule RxNorm: 278394 1 Capsule(s) P O TID as needed for abdominal pain 12/25/2014 02/18/2015 Inactive Protonix 40 mg tablet,delayed release RxNorm: 473911 1 Tablet(s ) PO BID 12/25/2014 03/04/2015 Inactive levothyroxine 50 mcg tablet RxNorm: 933645 1 Tablet(s) PO QD 201402/18/2015 Inactive Flonase 50 mcg/actuation nasal spray,suspension RxNorm: 8963 23 2 [place] NASAL QHS 12/25/2014 10/03/2018 Inactive [SAVINGS FOR NON -COVERED DRUGS -- BIN:027595, PCN: ASPROD1, Group: XXXXX, ID# [id number], Questions: . THIS IS NOT INSURANCE.] Toprol XL 25 mg tablet,extended release RxNorm: 776681 1 Tablet (s) PO QD 12/01/2014 05/29/2015 Inactive dicyclomine 10 mg capsule RxNorm: 891308 1 Capsule(s) P O TID as needed for abdominal pain 12/01/2014 12/24/2014 Inactive levothyroxine 75 mcg tablet RxNorm: 433596 1 Tablet(s) PO QD 201412/24/2014 Inactive [AttnRPh: Saving apply/adjud icate RxGRP:SG20 RxBIN:[id number] RxPCN: ID#:[id number]] Protonix 40 mg tablet,delayed release RxNorm: 579160 1 Tablet(s) BID 1 Tablet(s) PO QD 11/04/2014 12/24/2014 Inactive dicyclomine 10 mg capsule RxNorm: 750707 1 Capsule(s) P O TID as needed for abdominal pain 11/04/2014 11/30/2014 Inactive Protonix 40 mg tablet,delayed release RxNorm: 794906 Ta blet(s) 1 Tablet(s) PO QD 10/14/2014 11/03/2014 Inactive Flonase 50 mcg/actuation nasal spray,suspension RxNorm: 8963 23 2 [place] NASAL QHS 09/01/2014 12/24/2014 Inactive [SAVINGS FOR NON -COVERED DRUGS -- BIN:095362, PCN: ASPROD1, Group: XXXXX, ID# [id number], Questions: . THIS IS NOT INSURANCE.] Toprol XL 25 mg tablet,extended release RxNorm: 037323 Tablet(s) 1/2 Tablet(s) PO QD 08/28/2014 11/25/2014 Inactive [SAVINGS FOR UNI NSURED PATIENTS -- BIN:617668, PCN: ASPROD1, Group: [id number], ID# [id number], Process claim through [email or web address], for questions: . THIS IS NOT INSURANCE.] estradiol 0.01% (0.1 mg/gram) vaginal cream RxNorm: 167420 1 Gram(s) VAG Insert vaginally at bedtime, Monday, Monday and Monday06/26/2014 5 Inactive Toprol XL 25 mg tablet,extended release RxNorm: 736469 1/2 Tabl et(s) PO QD 06/06/2014 08/27/2014 Inactive [SAVINGS FOR UNINSUR ED PATIENTS -- BIN:440464, PCN: ASPROD1, Group: [id number], ID# [id number], Process claim through [email or web address], for questions: . THIS IS NOT INSURANCE.] estradiol 0.5 mg tablet RxNorm: 374574 1 Tablet(s) VAG Place one tablet in the vagina at bedtime three times a week 06/02/2014 06/25/2014 Inactive Estring 2 mg vaginal RxNorm: 993735 VAG Insert vaginall y and remove after 90 days 05/27/2014 06/01/2014 Inactive Toprol XL 25 mg tablet,extended release RxNorm: 919351 1/2 Tabl et(s) PO QD 04/15/2014 04/14/2014 Inactive Protonix 40 mg tablet,delayed release RxNorm: 126652 1 Tablet(s ) PO QD 04/15/2014 10/14/2014 Inactive estradiol 0.5 mg tablet RxNorm: 730947 1 Tablet(s) VAG Place one tablet in the vagina at bedtime twice a week 04/15/2014 06/01/2014 Inactive Toprol XL 25 mg tablet,extended release RxNorm: 466062 1/2 Tabl et(s) PO QD 04/15/2014 06/05/2014 Inactive [SAVINGS FOR UNINSUR ED PATIENTS -- BIN:633391, PCN: ASPROD1, Group: [id number], ID# [id number], Process claim through [email or web address], for questions: . THIS IS NOT INSURANCE.] levothyroxine 75 mcg tablet RxNorm: 700874 1 Tablet(s) PO QD 201304/07/2014 Inactive [AttnRPh: Saving apply/adjud icate RxGRP:SG20 RxBIN:[id number] RxPCN:HT ID#:[id number]] Flonase 50 mcg/actuation nasal spray,suspension RxNorm: 8963 23 1 [place] NASAL BID 04/08/2014 08/31/2014 Inactive levothyroxine 75 mcg tablet RxNorm: 865584 1 Tablet(s) PO QD 201310/04/2014 Inactive [AttnRPh: Saving apply/adjud icate RxGRP:SG20 RxBIN:[id number] RxPCN:HT ID#:[id number]] estradiol 0.5 mg tablet RxNorm: 617053 Tablet(s) PO Debra ce one tablet in the vagina at bedtime one time weekly 04/08/2014 04/07/2014 Inactive levothyroxine 75 mcg tablet RxNorm: 245302 1 Tablet(s) PO QD 201304/07/2014 Inactive [AttnRPh: Saving apply/adjud icate RxGRP:SG20 RxBIN:[id number] RxPCN:HT ID#:[id number]] Skelaxin 800 mg tablet RxNorm: 193079 1 Tablet(s) PO TI D as needed for muscle spasm 03/05/2014 11/03/2014 Inactive alprazolam 0.25 mg tablet RxNorm: 508952 1 Tablet(s) PO Q8H as needed for anxiety 02/27/2014 08/05/2018 Inactive [AttnRPh: Saving apply/adjudicate RxGRP:SG20 RxBIN:[id number] RxPCN:HT ID#:[id number]] Synthroid 75 mcg tablet RxNorm: 245833 1 Tablet(s) PO QD 11/29/2013 0 11/03/2014 Inactive levothyroxine 75 mcg tablet RxNorm: 858635 1 Tablet(s) PO QD -N eed labs 11/27/2013 03/19/2014 Inactive [AttnRPh: Saving jessica ly/adjudicate RxGRP:SG20 RxBIN:[id number] RxPCN:HT ID#:[id number]] Protonix 40 mg tablet,delayed release RxNorm: 361001 1 Tablet(s ) PO QD 10/07/2013 04/04/2014 Inactive Synthroid 75 mcg tablet RxNorm: 745445 1 Tablet(s) PO QD 09/02/2013 0 11/28/2013 Inactive Zithromax 500 mg tablet RxNorm: 075646 1 Tablet(s) PO QD 07/29/2013 0 08/04/2013 Inactive prednisone 20 mg tablet RxNorm: 780177 1 Tablet(s) PO QD 07/29/2013 0 08/02/2013 Inactive Synthroid 75 mcg tablet RxNorm: 002749 1 Tablet(s) PO Q D Patient wants it put on hold 05/14/2013 09/02/2013 Inactive Synthroid 75 mcg tablet RxNorm: 126908 1 Tablet(s) PO QD 05/01/2013 1 07/14/2012 Inactive Flagyl 500 mg tablet RxNorm: 007421 1 Tablet(s) PO BID 03/20/2013 Inactive Cipro 500 mg tablet RxNorm: 455413 1 Tablet(s) PO QD 03/20/201304/02 Inactive levothyroxine 75 mcg tablet RxNorm: 566946 1 Tablet(s) PO QD 201205/03/2013 Inactive Septra DS 800 mg-160 mg tablet RxNorm: 531116 1 Tablet(s) PO BI D antibiotic 11/05/2012 11/09/2012 Inactive Bystolic 5 mg tablet RxNorm: 796940 1 Tablet(s) PO QD 10/10/201208/2018 Inactive Bystolic 5 mg tablet RxNorm: 348468 1 Tablet(s) PO QD 10/10/20120 02/2013 Inactive Protonix 40 mg tablet,delayed release RxNorm: 606840 1 Tablet(s ) PO QD 09/24/2012 09/18/2013 Inactive Synthroid 75 mcg tablet RxNorm: 008087 1 Tablet(s) PO QD 08/01/2012 0 09/23/2012 Inactive Synthroid 75 mcg tablet RxNorm: 217499 1 Tablet(s) PO QD Brand name only 07/03/2012 07/31/2012 Inactive Skelaxin 800 mg tablet RxNorm: 808110 1 Tablet(s) PO TID prn spasm 05/02/2012 03/04/2014 Inactive Zithromax Z-Leonel 250 mg tablet RxNorm: 400359 Tablet(s) PO As Di rected 04/12/2012 05/01/2012 Inactive levothyroxine 75 mcg tablet RxNorm: 546575 1 Tablet(s) PO QD 201108/05/2018 Inactive levothyroxine 75 mcg tablet RxNorm: 829573 1 Tablet(s) PO QD 201107/01/2012 Inactive Ultram 50 mg tablet RxNorm: 051553 1-2 Tablet(s) PO TID as need ed for migraine 04/03/2012 11/03/2014 Inactive Vimovo 500 mg-20 mg tablets,immediate & delayed release RxNo rm: 749274 1 Tablet(s) PO BID for pain 03/28/2012 07/25/2012 Inactive levothyroxine 75 mcg tablet RxNorm: 428999 1 Tablet(s) PO QD 201104/02/2012 Inactive levothyroxine 50 mcg tablet RxNorm: 999384 1 Tablet(s) PO QD 201109/23/2012 Inactive levothyroxine 50 mcg tablet RxNorm: 019911 1 Tablet(s) PO QD 201101/31/2012 Inactive Septra DS 800 mg-160 mg Tab RxNorm: 978980 1 Tablet(s) PO BID 11/2111/26/2011 Inactive mupirocin 2 % Ointment RxNorm: 837423 1 Application TOP TID 012 11/28/2011 Inactive Protonix 40 mg tablet,delayed release RxNorm: 424534 1 Tablet(s ) PO QD 09/13/2011 09/24/2012 Inactive hydrocodone-acetaminophen 5 mg-500 mg Tab RxNorm: 390159 1 Tablet(s) PO Q4-6H as needed for pain 07/13/2011 11/21/2011 Inactive Skelaxin 800 mg tablet RxNorm: 248069 1 Tablet(s) PO TID prn spasm 06/30/2011 11/21/2011 Inactive Skelaxin 800 mg Tab RxNorm: 225118 1 Tablet(s) PO TID prn spasm No Stop Date Active potassium chloride ER 10 mEq Cap RxNorm: 8132267 2 Capsule(s) PO QD 12/30/2010 01/30/2011 Inactive potassium chloride ER 10 mEq Cap RxNorm: 0422074 1 Capsule(s) PO QD 12/29/2010 12/29/2010 Inactive Take 2 tablets by mouth on M , Monday, Monday and 1 tablet by mouth on Monday, , Monday and Monday Premarin 0.9 mg Tab RxNorm: 996944 1 Tablet(s) PO QD 12/09/201001/07 Inactive potassium chloride ER 10 mEq Cap RxNorm: 2576240 1 Capsule(s) PO QD 12/07/2010 No Stop Date Active Take 2 tablets by mouth on M on, Monday, Monday and 1 tablet by mouth on Monday, , Monday and Monday promethazine 12.5 mg Rectal Suppository RxNorm: 112678 1 Applic ation RTL Q6-8H 12/07/2010 12/16/2010 Inactive prn nausea and vomit ing potassium chloride ER 10 mEq Cap RxNorm: 2925420 1 Capsule(s) PO QD 12/03/2010 No Stop Date Active MWF take 2 tablets daily. T nig[place] one tablet daily on other days. Protonix 40 mg Tab RxNorm: 600407 1 Tablet(s) PO QD 09/27/20102011 Inactive cefdinir 300 mg Cap RxNorm: 306496 2 Capsule(s) PO QD 08/05/201007/2010 Inactive cefdinir 300 mg Cap RxNorm: 030391 2 Capsule(s) PO QD 08/05/201008/03 Inactive Premarin 1.25 mg Tab RxNorm: 192302 1 Tablet(s) PO QD 06/14/201012/2010 Inactive lisinopril-hydrochlorothiazide 10 mg-12.5 mg Tab RxNorm: 042123 1 Tablet(s) PO 06/07/2010 11/04/2010 Inactive alprazolam 0.25 mg Tab RxNorm: 112696 1 Tablet(s) PO TI D written script provided to patient. 05/24/2010 06/22/2010 Inactive Treximet 85 mg-500 mg Tab RxNorm: 900489 1 Tablet(s) PO PRN 010 09/23/2012 Inactive lisinopril-hydrochlorothiazide 20 mg-12.5 mg Tab RxNorm: 197 886 1 Tablet(s) PO QD 05/12/2010 11/04/2010 Inactive alprazolam 0.25 mg Tab RxNorm: 684440 1 Tablet(s) PO TI D written script provided to patient. 04/19/2010 05/23/2010 Inactive Macrobid 100 mg Cap RxNorm: 9627799 1 Capsule(s) PO BID 04/08/2010 Inactive Premarin 1.25 mg Tab RxNorm: 325178 1 Tablet(s) PO QD 03/22/201002/2011 Inactive Amitriptyline 10 mg Tab RxNorm: 334644 1 Tablet(s) PO QD 03/22/2010 0 06/19/2010 Inactive Protonix 40 mg Tab RxNorm: 158486 1 Tablet(s) PO QD 03/22/20102010 Inactive alprazolam 0.25 mg Tab RxNorm: 571408 1 Tablet(s) PO TID 03/10/2010 1 06/08/2009 Inactive Macrobid 100 mg Cap RxNorm: 9894561 1 Capsule(s) PO QD 03/09/2010 Inactive Bystolic 5 mg Tab RxNorm: 052570 1 Tablet(s) PO QD Fi ll at 30 if insurance will not accept 03/01/2010 11/04/2010 Inactive Protonix 40 mg Tab RxNorm: 001574 1 Tablet(s) PO QD 11/23/20092009 Inactive Premarin 1.25 mg Tab RxNorm: 014153 1 Tablet(s) PO QD 11/23/200912/03 Inactive Bentyl 10 mg Cap RxNorm: 118982 1 Capsule(s) PO QID 11/23/20092010 Inactive Elavil 10 mg Tab RxNorm: 109265 1 Tablet(s) PO QPM 11/19/2009 011 Inactive Estrace 0.01% (0.1 mg/gram) vaginal cream RxNorm: 693956 1 Application VAG weekly No Start Date Active Protonix 40 mg tablet,delayed release RxNorm: 100135 1 Tablet(s ) PO QD No Start Date Active fluticasone propionate 50 mcg/actuation nasal spray,suspensi on RxNorm: 0572154 2 [place] NASAL QD No Start Date Active Vitamin D3 2,000 unit tablet RxNorm: 014013 1 Tablet(s) PO QD No t Date Active BIOFREEZE Top RxNorm: Topical No Start Date Active multivitamin chewable tablet RxNorm: 1 Tablet(s) PO QD No Start Date Active Estring 2 mg vaginal RxNorm: 347825 VAG Insert vaginall y and remove after 90 days No Start Date 05/26/2014 Inactive Premarin 0.625 mg tablet RxNorm: 376189 1 Tablet(s) PO QD No Start Date 04/07/2014 Inactive Miralax 17 gram/dose oral powder RxNorm: 657487 1 capful PO QD No S tart Date 08/05/2018 Inactive diazepam 5 mg tablet RxNorm: 089608 2 Tablet(s) PO before MRI No art Date 10/03/2018 Inactive Protonix 40 mg tablet,delayed release RxNorm: 034161 1 Tablet(s ) PO QD No Start Date 07/26/2015 Inactive B12 sublingual RxNorm: 79340 sublingual No Start Date 03/27/2017 Inact adrian Treximet 85 mg-500 mg Tab RxNorm: 674093 Tablet(s) PO PRN No Start Date 05/11/2010 Inactive Gemma 180 mg Tab RxNorm: 924509 1 Tablet(s) PO QD No Start Date Inactive Cranberry Concentrate capsule RxNorm: 1 Capsule(s) PO QD No art Date 07/02/2019 Inactive Gemma Allergy 180 mg tablet RxNorm: 533485 1 Tablet(s) PO QD No S tart Date 08/31/2014 Inactive estradiol 0.01% (0.1 mg/gram) vaginal cream RxNorm: 759811 1 Gram(s) VAG Insert vaginally at bedtime, Monday, Monday and Monday No Start Date 5 Inactive Tylenol Ex Str Arthritis Pain 500 mg tablet RxNorm: 750077 2 Ta blet(s) PO TID No Start Date 08/05/2018 Inactive Toprol XL 25 mg tablet,extended release RxNorm: 540816 1 Tablet (s) PO QD No Start Date 11/30/2014 Inactive Ultram 50 mg tablet RxNorm: 876123 1-2 Tablet(s) PO TID as need ed for migraine No Start Date 04/02/2012 Inactive Premarin 0.9 mg Tab RxNorm: 648939 1 Tablet(s) PO QD No Start Date Inactive Xyzal 5 mg tablet RxNorm: 672149 1 Tablet(s) PO QD No Start Date 06/06 Inactive Bystolic 5 mg Tab RxNorm: 872032 1/2 Tablet(s) PO QD No Start Date Inactive Ondansetron HCl 4 mg Tab RxNorm: 298746 1 Tablet(s) PO TID or every 8hrs as needed for nausea No Start Date 11/21/2011 Inactive Protonix 40 mg tablet,delayed release RxNorm: 364726 1 Tablet(s ) PO BID No Start Date 12/24/2014 Inactive potassium chloride ER 10 mEq Cap RxNorm: 9997555 1 Capsule(s) PO QD No Start Date 12/02/2010 Inactive Miralax 17 gram/dose oral powder RxNorm: 485143 1 capful PO QD No S tart Date 03/29/2015 Inactive levothyroxine 75 mcg tablet RxNorm: 664525 1 Tablet(s) PO QD si x days a week No Start Date 12/24/2014 Inactive Cenestin 1.25 mg Tab RxNorm: 350699 1 Tablet(s) PO QD No Start Date 0 01/03/2010 Inactive calcium-vitamin D3 500 mg oral wafer RxNorm: 1 Tablet(s) PO QD No Start Date 12/08/2015 Inactive Vimovo 500 mg-20 mg tablet,immediate & delayed release RxNor m: 286766 1 Tablet(s) PO QD No Start Date 11/03/2014 Inactive alprazolam 0.25 mg tablet RxNorm: 429703 1 Tablet(s) PO Q8H as needed for anxiety/stress No Start Date 12/24/2014 Inactive levothyroxine 50 mcg tablet RxNorm: 362094 1 Tablet(s) PO QD No Sta rt Date 06/23/2019 Inactive betamethasone dipropionate 0.05 % topical cream RxNorm: 2389 20 1 Application TOP QHS No Start Date 03/27/2017 Inactive meloxicam 15 mg tablet RxNorm: 895256 1 Tablet(s) PO QD as needed N o Start Date 04/11/2019 Inactive cetirizine 10 mg capsule RxNorm: 6734285 1 Capsule(s) PO QD No Star t Date 09/10/2017 Inactive Skelaxin 800 mg Tab RxNorm: 165923 Tablet(s) PO PRN No Start Date Inactive Zithromax Z-Leonel 250 mg tablet RxNorm: 059224 Tablet(s) PO As Di rected No Start Date 04/11/2012 Inactive Zithromax Z-Leonel 250 mg Tab RxNorm: 701223 Tablet(s) PO as direc sheridan No Start Date 11/15/2010 Inactive Gemma 180 mg tablet RxNorm: 266368 1 Tablet(s) PO QD No Start Date 12/24/2014 Inactive Anusol-HC 2.5 % Rectal Cream RxNorm: 857227 Application RTL BID for 1wk No Start Date 12/19/2011 Inactive metoprolol succinate ER 25 mg 24 hr Tab RxNorm: 222772 1/2 Tabl et(s) PO QD No Start Date 10/03/2012 Inactive clotrimazole-betamethasone 1 %-0.05 % Lotion RxNorm: 861253 Application TOP BID to rash No Start Date 05/15/2011 Inactive ranitidine 150 mg tablet RxNorm: 794536 1 Tablet(s) PO QD No Start Date 12/06/2018 Inactive ranitidine 150 mg tablet RxNorm: 529584 1 Tablet(s) PO BID No Start Date 11/10/2016 Inactive promethazine 12.5 mg Rectal Suppository RxNorm: 484950 1 Applic ation RTL Q6-8H No Start Date 12/06/2010 Inactive Maxalt-COPYRIGHT EXPERT 10 mg disintegrating tablet RxNorm: 407397 1 Tablet(s) PO at headache onset--may repeat in 2hrs if needed No Start Date 12/24/2014 Inactive Benadryl 25 mg capsule RxNorm: 3374316 Capsule(s) PO as needed No S tart Date 12/24/2014 Inactive Cranberry Concentrate 500 mg capsule RxNorm: 463350 1 Capsule(s ) PO QD No Start Date 09/10/2017 Inactive Mobic 15 mg tablet RxNorm: 968231 1 Tablet(s) PO on opposite da ys of Aleve No Start Date 11/20/2018 Inactive Bystolic 5 mg tablet RxNorm: 267485 1 Tablet(s) PO QD No Start Date 0 10/09/2012 Inactive Premarin 1.25 mg Tab RxNorm: 541117 1 Tablet(s) PO QD No Start Date 1 Inactive clotrimazole-betamethasone 1 %-0.05 % topical cream RxNorm: 426954 Application TOP BID to rash prn--was supposed to be cream not lotion No Start Date 12/19/2011 Inactive azithromycin 250 mg Tab RxNorm: 273065 2 Tablet(s) PO Q D take 2 tablets (500 mg) by oral route once daily for 1 day then 1 tablet (250 mg) by oral route once daily for 4 days No Start Date 06/06/2010 Inactive hydrocodone-acetaminophen 5 mg-500 mg Tab RxNorm: 442448 1 Tablet(s) PO Q4-6H as needed for pain No Start Date 07/12/2011 Inactive Levbid 0.375 mg 12 hr Tab RxNorm: 4583431 1 Tablet(s) PO BID as needed for stomach cramping No Start Date 11/21/2011 Inactive Phenergan 25 mg rectal suppository RxNorm: 788677 1 Sup pository RTL Q4H as needed for nausea and vomiting No Start Date 07/19/2015 Inactive baclofen 10 mg tablet RxNorm: 929824 1 Tablet(s) PO QHS No Start Da te 11/03/2014 Inactive loratadine 10 mg tablet RxNorm: 098374 1 Tablet(s) PO QD No Start D ate 10/03/2018 Inactive famotidine 40 mg tablet RxNorm: 471621 1 Tablet(s) PO BID No Start Date 06/22/2016 Inactive Zithromax Z-Leonel 250 mg Tab RxNorm: 186028 Tablet(s) PO as direc sheridan No Start Date 11/15/2010 Inactive Singulair 10 mg tablet RxNorm: 354012 1 Tablet(s) PO QHS No Start D ate 07/10/2017 Inactive Premarin 0.625 mg/g Vaginal Cream RxNorm: 211113 1 Gram (s) VAG QHS 2-3 times weekly No Start Date 01/05/2011 Inactive Alprazolam 0.25 mg Tab RxNorm: 324242 1 Tablet(s) PO TID No Start D ate 03/09/2010 Inactive Claritin 10 mg tablet RxNorm: 901869 1 Tablet(s) PO QD No Start Date [...] Code Item Item Code Result Date S vic Location GFR CALC 1666629 GFR AA >60 ML/MIN 01/14/2011 Unknown GFR CALC 1068524 GFR NON-AA >60 ML/MIN 01/14/2011 Unknown COMPREHENSIVE METABOLIC 03990 AST 15 U/L 2010 Unknown COMPREHENSIVE METABOLIC 48707 ALT 17 IU/L 2010 Unknown COMPREHENSIVE METABOLIC 21055 BUN 12 MG/DL 2010 Unknown COMPREHENSIVE METABOLIC 86065 ALBUMIN 4.0 GM/DL 2010 Unknown COMPREHENSIVE METABOLIC 62839 CHLORIDE 101 MMOL/L 01/14 Unknown COMPREHENSIVE METABOLIC 66731 BILI TOT 0.3 MG/DL 2010 Unknown COMPREHENSIVE METABOLIC 47260 ALK PHOS 53 U/L 2010 Unknown COMPREHENSIVE METABOLIC 43623 SODIUM 136 MMOL/L 01/14 Unknown COMPREHENSIVE METABOLIC 34286 CREATININE 0.60 MG/DL 01/03 Unknown COMPREHENSIVE METABOLIC 83724 CALCIUM 9.3 MG/DL 2010 Unknown COMPREHENSIVE METABOLIC 77521 POTASSIUM 4.1 MMOL/L 01/14 Unknown COMPREHENSIVE METABOLIC 47586 PROT TOT 7.0 GM/DL 2010 Unknown COMPREHENSIVE METABOLIC 90217 Glucose 92 MG/DL 2010 Unknown COMPREHENSIVE METABOLIC 68263 BICARB 27 MMOL/L 2010 Unknown COMPREHENSIVE METABOLIC 82484 ANION GAP 8 MEQ/L 2010 Unknown ERYTHROCYTE SEDIMENTATION RATE 14862 ESR 39 MM/HR 01/05/2011 Unknown COMPREHENSIVE METABOLIC 68552 AST 16 U/L 2010 Unknown COMPREHENSIVE METABOLIC 95514 ALT 19 U/L 2010 Unknown COMPREHENSIVE METABOLIC 01492 BUN 15 MG/DL 2010 Unknown COMPREHENSIVE METABOLIC 25070 ALBUMIN 3.8 GM/DL 2010 Unknown COMPREHENSIVE METABOLIC 71614 CHLORIDE 101 MMOL/L 01/05 Unknown COMPREHENSIVE METABOLIC 84391 BILI TOT 0.3 MG/DL 2010 Unknown COMPREHENSIVE METABOLIC 57507 ALK PHOS 55 U/L 2010 Unknown COMPREHENSIVE METABOLIC 44855 SODIUM 139 MMOL/L 01/05 Unknown COMPREHENSIVE METABOLIC 88030 CREATININE 0.59 MG/DL 08/2010 Unknown COMPREHENSIVE METABOLIC 78208 CALCIUM 8.9 MG/DL 2010 Unknown COMPREHENSIVE METABOLIC 00309 POTASSIUM 3.8 MMOL/L 01/05 Unknown COMPREHENSIVE METABOLIC 84343 PROT TOT 6.7 GM/DL 2010 Unknown COMPREHENSIVE METABOLIC 79863 Glucose 121 MG/DL 2010 Unknown COMPREHENSIVE METABOLIC 93735 BICARB 28 MMOL/L 2010 Unknown COMPREHENSIVE METABOLIC 52377 ANION GAP 10 MMOL/L 2010 Unknown GFR CALC 2831763 GFR AA >60 ML/MIN 01/05/2011 Unknown GFR CALC 9872495 GFR NON-AA >60 ML/MIN 01/05/2011 Unknown COMPLETE BLOOD COUNT 62217 WBC 8.7 10e9/L 01/06/20 11 Unknown COMPLETE BLOOD COUNT 42277 RBC 4.78 10e12/L 2010 Unknown COMPLETE BLOOD COUNT 24962 HGB 13.3 g/dL 1 Unknown COMPLETE BLOOD COUNT 36632 HCT DET 40.6 % 1 Unknown COMPLETE BLOOD COUNT 59773 MCV 84.9 fL 1 Unknown COMPLETE BLOOD COUNT 93630 MCH 27.8 pg 1 Unknown COMPLETE BLOOD COUNT 49234 MCHC 32.8 g/dL 1 Unknown COMPLETE BLOOD COUNT 54737 PLT 273 10e9/L 01/06/20 11 Unknown COMPLETE BLOOD COUNT 75205 MPV 9.8 fL 1 Unknown COMPLETE BLOOD COUNT 73317 AMANDA % 65.9 % 1 Unknown COMPLETE BLOOD COUNT 77555 LY % 24.5 % 1 Unknown COMPLETE BLOOD COUNT 65142 MON % 6.9 % 1 Unknown COMPLETE BLOOD COUNT 54571 EOS % 2.1 % 1 Unknown COMPLETE BLOOD COUNT 96697 BASO % 0.6 % 1 Unknown COMPLETE BLOOD COUNT 46107 RDW 14.7 % 1 Unknown COMPLETE BLOOD COUNT 15044 ABS AMANDA 5.73 10e9/L 011 Unknown COMPLETE BLOOD COUNT 46596 ABS LYMPH 2.13 10e9/L 011 Unknown COMPLETE BLOOD COUNT 85580 ABS MONO 0.60 10e9/L 011 Unknown COMPLETE BLOOD COUNT 58904 ABS EOS 0.18 10e9/L 011 Unknown COMPLETE BLOOD COUNT 72390 ABS BASO 0.05 10e9/L 011 Unknown COMPLETE BLOOD COUNT 47088 RDW-SD 44.7 fL 1 Unknown NO UA [id number] NO UA CANCELED 07/08/2010 Unknown Procedures Procedure Codes Date PNEUMOCOCCAL VACC 13 JACKY IM CPT-4: 27751 07/03/2019 ADMIN PNEUMOCOCCAL VACCINE CPT-4: G0009 07/03/2019 URINALYSIS NONAUTO W/O SCOPE CPT-4: 52954 04/12/2019 URINE CULTURE/ COLONY COUNT CPT-4: 57226 04/12/2019 URINE CULTURE/ COLONY COUNT CPT-4: 28711 01/14/2019 URINALYSIS NONAUTO W/O SCOPE CPT-4: 65368 01/14/2019 INITIAL PREVENTIVE EXAM CPT-4: G0402 11/21/2018 URINALYSIS NONAUTO W/O SCOPE CPT-4: 27851 11/01/2018 URINE CULTURE/ COLONY COUNT CPT-4: 49540 11/01/2018 URINE CULTURE/ COLONY COUNT CPT-4: 38631 06/13/2018 URINALYSIS NONAUTO W/O SCOPE CPT-4: 95305 05/31/2018 URINE CULTURE/ COLONY COUNT CPT-4: 19569 05/31/2018 IIV4 VACCINE 3 YRS+ IM AND UP CPT-4: 98099 03/22/2018 IMMUNIZATION ADMIN CPT-4: 23188 03/22/2018 TDAP VACCINE 7 YRS/> IM CPT-4: 00537 12/28/2017 IMMUNIZATION ADMIN CPT-4: 99779 12/28/2017 SHINGRIX HZV VACC RECOMBINANT IM CPT-4: 43268 018 IMMUNIZATION ADMIN CPT-4: 99918 10/04/2017 IIV4 VACCINE 3 YRS+ IM AND UP CPT-4: 31003 03/28/2017 IMMUNIZATION ADMIN CPT-4: 79169 03/28/2017 INFLUENZA ASSAY W/OPTIC CPT-4: 94551 09/12/2016 FLU VACCINE 3 YRS & > IM UP 64 CPT-4: 05182 6 IMMUNIZATION ADMIN CPT-4: 27565 04/22/2016 OCCULT BLOOD FECES CPT-4: 66553 01/04/2016 THER/PROPH/DIAG INJ SC/IM CPT-4: 75861 07/20/2015 PROMETHAZINE HCL INJECTION CPT-4: J2550 07/20/2015 FLU VACCINE 3 YRS & > IM UP 64 CPT-4: 78449 5 IMMUNIZATION ADMIN CPT-4: 17439 03/09/2015 URINALYSIS NONAUTO W/O SCOPE CPT-4: 20916 07/10/2014 URINE CULTURE/ COLONY COUNT CPT-4: 66070 07/10/2014 URINE CULTURE/ COLONY COUNT CPT-4: 94120 07/14/2011 URINALYSIS NONAUTO W/O SCOPE CPT-4: 90247 07/14/2011 FLU VACCINE 3 YRS & > IM UP 64 CPT-4: 86603 2 IMMUNIZATION ADMIN CPT-4: 22964 06/28/2011 URINALYSIS NONAUTO W/O SCOPE CPT-4: 71233 03/23/2011 URINE CULTURE/ COLONY COUNT CPT-4: 48655 03/23/2011 ROUTINE VENIPUNCTURE CPT-4: 56547 01/14/2011 COMPREHEN METABOLIC PANEL CPT-4: 91940 01/14/2011 ROUTINE VENIPUNCTURE CPT-4: 54918 01/05/2011 COMPLETE CBC W/AUTO DIFF WBC CPT-4: 68336 01/05/2011 RBC SED RATE AUTOMATED CPT-4: 64834 01/05/2011 COMPREHEN METABOLIC PANEL CPT-4: 14942 01/05/2011 URINALYSIS NONAUTO W/O SCOPE CPT-4: 33968 11/16/2010 URINE CULTURE/ COLONY COUNT CPT-4: 24898 11/16/2010 DRAIN/INJECT JOINT/BURSA CPT-4: 91972 11/04/2010 TRIAMCINOLONE ACET INJ NOS CPT-4: J3301 11/04/2010 METHYLPREDNISOLONE 80 MG INJ CPT-4: J1040 11/04/2010 URINALYSIS NONAUTO W/O SCOPE CPT-4: 46207 07/05/2010 URINE CULTURE/ COLONY COUNT CPT-4: 86801 07/05/2010 URINALYSIS NONAUTO W/O SCOPE CPT-4: 11993 06/28/2010 URINE CULTURE/ COLONY COUNT CPT-4: 14851 06/28/2010 URINALYSIS NONAUTO W/O SCOPE CPT-4: 58371 06/14/2010 URINE CULTURE/ COLONY COUNT CPT-4: 67617 06/14/2010 URINE CULTURE/ COLONY COUNT CPT-4: 09931 04/19/2010 OCCULT BLOOD FECES CPT-4: 84312 04/12/2010 URINALYSIS NONAUTO W/O SCOPE CPT-4: 11572 04/08/2010 URINE CULTURE/ COLONY COUNT CPT-4: 24930 04/08/2010 ASSAY, GLUCOSE, BLOOD QUANT CPT-4: 87618 03/09/2010 URINALYSIS NONAUTO W/O SCOPE CPT-4: 00424 03/09/2010 FLU VACCINE 3 YRS & > IM UP 64 CPT-4: 33985 0 IMMUNIZATION ADMIN CPT-4: 57744 03/09/2010 URINALYSIS NONAUTO W/O SCOPE CPT-4: 02728 09/29/2009 URINALYSIS NONAUTO W/O SCOPE CPT-4: 05148 08/12/2009 Vital Signs Date Vital 07/03/2019 Blood [...] 1: 130/70 Code: 8480-6 BMI: 29.6 Code: 75463-2 Heart Rate 1: 76 bpm Height: 5'2" [...] 1: 126/62 Code: 8480-6 BMI: 29.6 Code: 87054-7 Heart Rate 1: 88 bpm Height: 5'3" Respiratory Rate: 20 bpm Temperature: 36 .8 (C) / 98.3 (F) Weight: 167 lbs 05/31/2018 Blood Pressure 1: 140/80 Code: 8480-6 Heart Rate 1: 74 bpm Respiratory Rate: 16 bpm SpO2: 97% Temperature: 36.3 (C) / 97.3 (F) We ight: 165 lbs 02/06/2018 Blood Pressure 1: 124/78 Code: 8480-6 BMI: 29.8 Code: 12155-9 Heart Rate 1: 84 bpm Height: 5'3" Respiratory Rate: 20 bpm SpO2: 97% Tempera ture: 36.6 (C) / 97.8 (F) Weight: 168 lbs 12/18/2017 Blood Pressure 1: 116/78 Code: 8480-6 BMI: 29.6 Code: 12992-6 Heart Rate 1: 88 bpm Height: 5'3" Respiratory Rate: 20 bpm Temperature: 36 .6 (C) / 97.9 (F) Weight: 167 lbs 12/11/2017 Blood Pressure 1: 122/76 Code: 8480-6 He art Rate 1: 78 bpm 09/11/2017 Blood Pressure 1: 126/82 Code: 8480-6 BMI: 29.1 Code: 59085-1 Heart Rate 1: 68 bpm Height: 5'3" Respiratory Rate: 20 bpm SpO2: 96% Tempera ture: 36.6 (C) / 97.9 (F) Weight: 164 lbs 03/28/2017 Blood Pressure 1: 114/64 Code: 8480-6 BMI: 27.8 Code: 50700-3 Heart Rate 1: 76 bpm Height: 5'3" Respiratory Rate: 20 bpm SpO2: 98% Tempera ture: 36.4 (C) / 97.6 (F) Weight: 157 lbs 09/12/2016 Blood Pressure 1: 126/70 Code: 8480-6 BMI: 29.9 Code: 49349-0 Heart Rate 1: 92 bpm Height: 5'3" Respiratory Rate: 20 bpm SpO2: 97% Tempera ture: 37.0 (C) / 98.6 (F) Weight: 168 lbs 9 oz 07/28/2016 Blood Pressure 1: 128/74 Code: 8480-6 Heart Rate 1: 92 bpm Respiratory Rate: 24 bpm SpO2: 96% Temperature: 36.4 (C) / 97.6 (F) We ight: 168 lbs 04/26/2016 Blood Pressure 1: 116/74 Code: 8480-6 BMI: 29.9 Code: 18252-4 Heart Rate 1: 92 bpm Height: 5'3" Respiratory Rate: 20 bpm Temperature: 36 .9 (C) / 98.4 (F) Weight: 169 lbs 12/09/2015 Blood Pressure 1: 116/72 Code: 8480-6 BMI: 31.7 Code: 24775-7 Heart Rate 1: 80 bpm Height: 5'3" Respiratory Rate: 20 bpm Temperature: 36 .6 (C) / 97.9 (F) Weight: 179 lbs 09/10/2015 Blood Pressure 1: 122/78 Code: 8480-6 BMI: 32.2 Code: 13486-2 Heart Rate 1: 88 bpm Height: 5'3" Respiratory Rate: 20 bpm Temperature: 37 .3 (C) / 99.1 (F) Weight: 182 lbs 04/23/2015 Blood Pressure 1: 126/70 Code: 8480-6 BMI: 31.2 Code: 13899-8 Heart Rate 1: 92 bpm Height: 5'3" Respiratory Rate: 20 bpm Temperature: 36 .8 (C) / 98.2 (F) Weight: 176 lbs 03/24/2015 Blood Pressure 1: 126/78 Code: 8480-6 BMI: 31.2 Code: 41660-0 Heart Rate 1: 80 bpm Height: 5'3" Respiratory Rate: 22 bpm Temperature: 36 .1 (C) / 96.9 (F) Weight: 176 lbs 03/05/2015 Blood Pressure 1: 132/80 Code: 8480-6 BMI: 31.5 Code: 41417-0 Heart Rate 1: 92 bpm Height: 5'2" Respiratory Rate: 20 bpm Temperature: 36 .4 (C) / 97.6 (F) Weight: 175 lbs 02/19/2015 Blood Pressure 1: 134/80 Code: 8480-6 BMI: 31.5 Code: 56966-1 Heart Rate 1: 88 bpm Height: 5'2" Respiratory Rate: 20 bpm Temperature: 36 .7 (C) / 98.0 (F) Weight: 175 lbs 12/25/2014 Blood Pressure 1: 122/80 Code: 8480-6 BMI: 31.0 Code: 15890-1 Heart Rate 1: 88 bpm Height: 5'2" Respiratory Rate: 20 bpm Temperature: 36 .6 (C) / 97.8 (F) Weight: 172 lbs 11/26/2014 Blood Pressure 1: 116/68 Code: 8480-6 BMI: 30.2 Code: 97170-2 Heart Rate 1: 76 bpm Height: 5'2" Respiratory Rate: 20 bpm Temperature: 36 .5 (C) / 97.7 (F) Weight: 168 lbs 11/04/2014 Blood Pressure 1: 116/64 Code: 8480-6 BMI: 30.8 Code: 55208-7 Heart Rate 1: 92 bpm Height: 5'2" Respiratory Rate: 20 bpm Temperature: 36 .7 (C) / 98.1 (F) Weight: 171 lbs 09/01/2014 Blood Pressure 1: 130/82 Code: 8480-6 BMI: 30.6 Code: 08009-4 Heart Rate 1: 92 bpm Height: 5'2" Respiratory Rate: 20 bpm Temperature: 36 .9 (C) / 98.4 (F) Weight: 170 lbs 06/02/2014 Blood Pressure 1: 126/80 Code: 8480-6 BMI: 30.2 Code: 80785-0 Heart Rate 1: 88 bpm Height: 5'2" Respiratory Rate: 20 bpm Temperature: 36 .7 (C) / 98.1 (F) Weight: 168 lbs 05/26/2014 Blood Pressure 1: 132/78 Code: 8480-6 He art Rate 1: 74 bpm 04/08/2014 Blood Pressure 1: 156/94 Code: 8480-6 BMI: 30.2 Code: 35270-2 Heart Rate 1: 96 bpm Height: 5'2" Respiratory Rate: 20 bpm Temperature: 37 .1 (C) / 98.7 (F) Weight: 168 lbs 03/05/2014 Blood Pressure 1: 144/86 Code: 8480-6 BMI: 29.9 Code: 85328-8 Heart Rate 1: 100 bpm Height: 5'2" Respiratory Rate: 20 bpm Temperature: 36 .7 (C) / 98.1 (F) Weight: 166 lbs 07/29/2013 Blood Pressure 1: 124/80 Code: 8480-6 Heart Rate 1: 92 bpm Respiratory Rate: 20 bpm Temperature: 36.2 (C) / 97.2 (F) Weight: 167 lbs 03/20/2013 Blood Pressure 1: 116/84 Code: 8480-6 BMI: 30.8 Code: 30192-8 Heart Rate 1: 96 bpm Height: 5'3" Respiratory Rate: 20 bpm Temperature: 36 .6 (C) / 97.8 (F) Weight: 174 lbs 02/12/2013 Blood Pressure 1: 122/80 Code: 8480-6 BMI: 30.5 Code: 01489-8 Heart Rate 1: 112 bpm Height: 5'3" Respiratory Rate: 20 bpm Temperature: 36 .9 (C) / 98.4 (F) Weight: 172 lbs 11/05/2012 BMI: 31.2 Code: 97692-9 Height: 5'3" Weight: 176 lbs 10/04/2012 Heart Rate 1: 84 bpm Height: 5'3" Respiratory Rate: 20 bpm Temperature: 36.8 (C) / 98.3 (F) Weight: 09/24/2012 Blood Pressure 1: 122/88 Code: 8480-6 BMI: 30.8 Code: 34452-9 Heart Rate 1: 80 bpm Height: 5'3" Respiratory Rate: 20 bpm Temperature: 36 .8 (C) / 98.2 (F) Weight: 174 lbs 05/10/2012 Blood Pressure 1: 124/68 Code: 8480-6 BMI: 30.1 Code: 79077-2 Heart Rate 1: 64 bpm Height: 5'3" Temperature: 36.6 (C) / 97.8 (F) Weight: 170 lbs 03/07/2012 Blood Pressure 1: 132/78 Code: 8480-6 BMI: 29.2 Code: 28164-0 Heart Rate 1: 92 bpm Height: 5'3" Respiratory Rate: 20 bpm Temperature: 36 .7 (C) / 98.1 (F) Weight: 165 lbs 02/01/2012 Blood Pressure 1: 116/78 Code: 8480-6 BMI: 29.1 Code: 86541-4 Heart Rate 1: 84 bpm Height: 5'3" Respiratory Rate: 20 bpm Temperature: 36 .8 (C) / 98.2 (F) Weight: 164 lbs 12/20/2011 Blood Pressure 1: 128/80 Code: 8480-6 BMI: 29.1 Code: 05698-6 Heart Rate 1: 88 bpm Height: 5'3" Respiratory Rate: 20 bpm Temperature: 36 .4 (C) / 97.6 (F) Weight: 164 lbs 11/22/2011 Blood Pressure 1: 104/60 Code: 8480-6 BMI: 28.5 Code: 13529-6 Heart Rate 1: 78 bpm Height: 5'3" Temperature: 36.6 (C) / 97.9 (F) Weight: 161 lbs 07/11/2011 Blood Pressure 1: 118/72 Code: 8480-6 BMI: 30.6 Code: 83673-5 Heart Rate 1: 92 bpm Height: 5'3" Respiratory Rate: 20 bpm Temperature: 36 .8 (C) / 98.2 (F) Weight: 173 lbs 07/06/2011 Blood Pressure 1: 126/80 Code: 8480-6 BMI: 31.0 Code: 74254-2 Heart Rate 1: 88 bpm Height: 5'3" Respiratory Rate: 20 bpm Temperature: 36 .7 (C) / 98.1 (F) Weight: 175 lbs 05/26/2011 Blood Pressure 1: 100/78 Code: 8480-6 BMI: 31.0 Code: 11571-2 Heart Rate 1: 74 bpm Height: 5'3" Temperature: 36.4 (C) / 97.6 (F) Weight: 175 lbs 05/16/2011 Blood Pressure 1: 116/80 Code: 8480-6 BMI: 31.0 Code: 32330-9 Heart Rate 1: 88 bpm Height: 5'3" Respiratory Rate: 20 bpm Temperature: 36 .8 (C) / 98.2 (F) Weight: 175 lbs 05/05/2011 Blood Pressure 1: 126/80 Code: 8480-6 BMI: 30.6 Code: 89493-8 Heart Rate 1: 96 bpm Height: 5'3" Respiratory Rate: 20 bpm Temperature: 36 .4 (C) / 97.6 (F) Weight: 173 lbs 04/05/2011 Blood Pressure 1: 144/90 Code: 8480-6 BMI: 30.1 Code: 23560-8 Heart Rate 1: 92 bpm Height: 5'3" Respiratory Rate: 20 bpm Temperature: 36 .6 (C) / 97.8 (F) Weight: 170 lbs 03/02/2011 Blood Pressure 1: 136/94 Code: 8480-6 Heart Rate 1: 92 bpm Temperature: 36.6 (C) / 97.8 (F) Weight: 171 lbs 01/05/2011 Blood Pressure 1: 132/86 Code: 8480-6 BMI: 30.6 Code: 23293-9 Heart Rate 1: 98 bpm Height: 5'3" [...] 1: 122/68 Code: 8480-6 BMI: 29.8 Code: 62467-0 Height: 5'3" Temperature: 36.3 (C) / 97.4 [...] 1: 142/90 Code: 8480-6 BMI: 30.5 Code: 78993-5 Heart Rate 1: 96 bpm Height: 5'3" [...] up 09/11/2017 lymph node enlargement/mass 03/28/2017 Since lisbeth linder had right knee scope in August has had intermittent rash to site sinus pain 09/12/2016 rash 07/28/2016 MRI scheduled for th is coming Monday - Currently on XS [...] 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 01/14/2011 shortness of breath 01/05/2011 urinary [...] blood pressure 06/07/2010 taking lisinopril HC T /.5 follow up 05/12/2010 still having hoarsen ess and thinks is still related to the bystolic abdominal pain 04/27/2010 ~generic 04/19/2010 having problems with laryngitis, has concerns it may be related to Bystolic anxiety 03/09/2010 wanting a refill of alprazolam follow up 01/04/2010 2wk fwup on Bystolic follow up 12/14/2009 from [facility] follow up 11/23/2009 Encounters Encounter Performer Location Codes Date ([id number]) OFFICE/OUTPATIENT VISIT EST Diagnosis: Hyperglycemia, unspecified[ICD10: R73.9] Diagnosis: Hypothyroidism[ICD10: E03.9] Diagnosis: Asthma[ICD10: J45.909] Diagnosis: Hilar lymphadenopathy[ICD10: R59.0] Diagnosis: PNEUMOCOCCAL VACCINE[ICD10: Z23] Yaima JOHNSON [facility] CPT-4: 53377 07/03/2019 ([id number]) OFFICE/OUTPATIENT VISIT EST Diagnosis: Low back pain[ICD10: M54.5] Jane WOO DO [facility] CPT-4: 21255 04/12/2019 ([id number]) OFFICE/OUTPATIENT VISIT EST Diagnosis: Pain in thoracic spine[ICD10: M54.6] Diagnosis: Muscle spasm of back[ICD10: M62.830] Yaima JOHNSON [facility] CPT-4: 95640 01/16/2019 ([id number]) NURSE/OUTPATIENT VISIT EST Diagnosis: Low back pain[ICD10: M54.5] Diagnosis: Hematuria, unspecified[ICD10: R31.9] Yaima JOHNSON [facility] CPT-4: 66941 01/14/2019 ([id number]) OFFICE/OUTPATIENT VISIT EST Diagnosis: Left lower quadrant pain[ICD10: R10.32] Yaima JOHNSON [facility] CPT-4: 50968 01/09/2019 ([id number]) NURSE/OUTPATIENT VISIT EST Diagnosis: Hematuria, unspecified[ICD10: R31.9] Yaima JOHNSON [facility] CPT-4: 19545 11/01/2018 ([id number]) OFFICE/OUTPATIENT VISIT EST Diagnosis: Hypothyroidism, unspecified[ICD10: E03.9] Diagnosis: Other fatigue[ICD10: R53.83] Diagnosis: Other cervical disc degeneration, unspecified cervical region[ICD10: M50.30] Yaima JOHNSON [facility] CPT-4: 81716 10/04/2018 ([id number]) OFFICE/OUTPATIENT VISIT EST Diagnosis: Hypothyroidism, unspecified[ICD10: E03.9] Diagnosis: Impaired fasting glucose[ICD10: R73.01] Diagnosis: Cervicalgia[ICD10: M54.2] Yaima SALAS NDER [facility] CPT-4: 34118 08/06/2018 ([id number]) OFFICE/OUTPATIENT VISIT EST Diagnosis: Radiculopathy, lumbosacral region[ICD10: M54.17] Diagnosis: Abrasion, left lower leg, sequela[ICD10: S80.812S] Yaima JOHNSON DO [facility] CPT-4: 54205 06/21/2018 ([id number]) NURSE/OUTPATIENT VISIT EST Diagnosis: Urinary tract infection, site not specified[ICD10: N39.0] Yaima MCCORMACKLINE BreonnaRobin [facility] SM[facility] CPT-4: 87568 06/13/2018 ([id number]) OFFICE/OUTPATIENT VISIT EST Diagnosis: Other dorsalgia[ICD10: M54.89] Jane JOHNSON [facility] CPT-4: 37593 05/31/2018 ([id number]) NURSE/OUTPATIENT VISIT EST Diagnosis: FLU VACCINE[ICD10: Z23] Yaima MCCORMACKLINE Jw EUGENE [facility] CPT-4: 53846 03/22/2018 ([id number]) OFFICE/OUTPATIENT VISIT EST Diagnosis: Hypothyroidism, unspecified[ICD10: E03.9] Diagnosis: Essential (primary) hypertension[ICD10: I10] Diagnosis: Other seasonal allergic rhinitis[ICD10: J30.2] Yaima JOHNSON [facility] CPT-4: 13399 02/06/2018 ([id number]) NURSE/OUTPATIENT VISIT EST Diagnosis: Laceration of blood vessel of right index finger, initial encounter[ICD10: S65.510A] Diagnosis: VACCINE FOR TDAP[ICD10: Z23] Yaima Elizabeth MCCORMACKLINE Jw JOHNSON [facility] CPT-4: 52259 12/28/2017 ([id number]) OFFICE/OUTPATIENT VISIT EST Diagnosis: Tinnitus, bilateral[ICD10: H93.13] Yaima Josueyvesvalorie FEROZ SANDERS [facility]: 10786 12/18/2017 ([id number]) NURSE/OUTPATIENT VISIT EST Diagnosis: VACCIN FOR DISEASE NEC (HPV or Zostavax)[ICD10: Z23] Yaima Josuesara SAMUELS BreonnaRobin [facility] CPT-4: 09403 10/04/2017 OFFICE/OUTPATIENT VISIT EST Diagnosis: Hypothyroidism, unspecified[ICD10: E03.9] Diagnosis: Essential (primary) hypertension[ICD10: I10] Diagnosis: Gastro-esophageal reflux disease without esophagitis[ICD10: K21.9] Diagnosis: Pain in right knee[ICD10: M25.561] Diagnosis: Hyperglycemia, unspecified[ICD10: R73.9] Yaima JOHNSON [facility] CPT-4: 36443 09/11/2017 ([id number]) OFFICE/OUTPATIENT VISIT EST Diagnosis: Cervicalgia[ICD10: M54.2] Diagnosis: Hypothyroidism, unspecified[ICD10: E03.9] Diagnosis: Essential (primary) hypertension[ICD10: I10] Diagnosis: Irritant contact dermatitis, unspecified cause[ICD10: L24.9] Diagnosis: FLU VACCINE[ICD10: Z23] [facility]a [facility] CPT-4: 68249 03/28/2017 ([id number]) OFFICE/OUTPATIENT VISIT EST Diagnosis: Influenza due to identified novel influenza A virus with other manifestations[ICD10: J09.X9] [facility]: 40585 09/12/2016 ([id number]) OFFICE/OUTPATIENT VISIT EST Diagnosis: Dermatitis, unspecified[ICD10: L30.9] Diagnosis: Pain in right knee[ICD10: M25.561] Yaima REDMAN MARILYN [facility] CPT-[facility]: 72313 07/28/2016 ([id number]) OFFICE/OUTPATIENT VISIT EST Diagnosis: Incisional hernia without obstruction or gangrene[ICD10: K43.2] Diagnosis: Gastro-esophageal reflux disease without esophagitis[ICD10: K21.9] Diagnosis: Radiculopathy, lumbosacral region[ICD10: M54.17] Yaima Elizabeth MCCORMACKLINE [facility]w [facility] CPT-[facility]: 43402 04/26/2016 ([id number]) OFFICE/OUTPATIENT VISIT EST Diagnosis: FLU VACCINE[ICD10: Z23] Yaimaperlita MCCORMACKLINE [facility] CPT-4: 92730 04/22/2016 ([id number]) OFFICE/OUTPATIENT VISIT EST Diagnosis: Other fecal abnormalities[ICD10: R19.5] Yaima JOHNSON DO [facility] CPT-4: 72966 01/04/2016 ([id number]) OFFICE/OUTPATIENT VISIT EST 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] Diagnosis: Other specified diseases of liver[ICD10: K76.89] Diagnosis: Irritant contact dermatitis due to detergents[ICD10: L24.0] Yaima JOHNSON DO [facility] CPT-4: 19496 12/09/2015 ([id number]) OFFICE/OUTPATIENT VISIT EST Diagnosis: Pain in thoracic spine[ICD10: M54.6] Diagnosis: Radiculopathy, lumbosacral region[ICD10: M54.17] Diagnosis: Precordial pain[ICD10: R07.2] Yaima JOHNSON DO [facility] CPT-4: 58181 09/10/2015 ([id number]) OFFICE/OUTPATIENT VISIT EST Diagnosis: Nausea[ICD10: R11.0] Yaiam JOHNSON DO [facility] CPT-4: 12474 07/20/2015 ([id number]) OFFICE/OUTPATIENT VISIT EST Diagnosis: Pain in left elbow[ICD10: M25.522] Diagnosis: Contusion of left lower leg, sequela[ICD10: S80.12XS] Diagnosis: Pleurodynia[ICD10: R07.81] Yaima HOWELL DO [facility] CPT-4: 99640 04/23/2015 ([id number]) OFFICE/OUTPATIENT VISIT EST Diagnosis: Unspecified abdominal pain[ICD10: R10.9] Diagnosis: Ventral hernia without obstruction or gangrene[ICD10: K43.9] Diagnosis: Constipation, unspecified[ICD10: K59.00] Yaima JOHNSON DO [facility] CPT-4: 83659 03/24/2015 ([id number]) OFFICE/OUTPATIENT VISIT EST Diagnosis: FLU VACCINE[ICD10: Z23] Yaima EUGENE DO [facility] CPT-4: 88268 03/09/2015 ([id number]) OFFICE/OUTPATIENT VISIT EST 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] Diagnosis: Generalized abdominal pain[ICD10: R10.84] Yaima JOHNSON DO [facility] CPT-4: 45338 03/05/2015 OFFICE/OUTPATIENT VISIT EST Diagnosis: ABDOMINAL PAIN[ICD9: 789.00] Diagnosis: HYPOTHYROIDISM[ICD9: 244.9] Diagnosis: HYPERTENSION[ICD9: 401.9] Diagnosis: DIVERTICULITIS, COLONIC[ICD9: 562.11] Diagnosis: DISTURBANCE OF SKIN SENSATION (Paresthesia)[ICD9: 782.0] Yaima JOHNSON [facility] CPT-4: 00472 02/19/2015 ([id number]) OFFICE/OUTPATIENT VISIT EST Diagnosis: HYPOTHYROIDISM[ICD9: 244.9] Diagnosis: Diaphoresis[ICD9: 780.8] Yaima DUMONT [facility] CPT-4: 77890 12/25/2014 ([id number]) OFFICE/OUTPATIENT VISIT EST Diagnosis: ABDOMINAL PAIN[ICD9: 789.00] Diagnosis: PAIN, LOWER BACK[ICD9: 724.2] Diagnosis: Contusion of leg[ICD9: 924.5] Yaima JOHNSON DO [facility] CPT-4: 87699 11/26/2014 ([id number]) OFFICE/OUTPATIENT VISIT EST Diagnosis: IBS[ICD9: 564.1] Diagnosis: GERD[ICD9: 530.81] Yaima JOHNSON DO [facility] CPT-4: 75168 11/04/2014 ([id number]) OFFICE/OUTPATIENT VISIT EST Diagnosis: Headache[ICD9: 784.0] Diagnosis: Leg pain[ICD9: 729.5] Yaima JOHNSON DO [facility] CPT-4: 46123 09/01/2014 ([id number]) OFFICE/OUTPATIENT VISIT EST Diagnosis: DYSURIA[ICD9: 788.1] Yaima JOHNSON DO [facility] CPT-4: 63091 07/10/2014 OFFICE/OUTPATIENT VISIT EST Diagnosis: VAGINITIS[ICD9: 623.5] Diagnosis: SINUSITIS, ACUTE[ICD9: 461.9] Yaima JOHNSON DO [facility] CPT-4: 42768 06/02/2014 ([id number]) OFFICE/OUTPATIENT VISIT EST Diagnosis: HYPERTENSION[ICD9: 401.9] Diagnosis: ALLERGIC RHINITIS[ICD9: 477.9] Diagnosis: PAIN, LOWER BACK[ICD9: 724.2] Yaima JOHNSON [facility] CPT-4: 82752 04/08/2014 ([id number]) OFFICE/OUTPATIENT VISIT EST Diagnosis: COUGH[ICD10: R05] Diagnosis: Thoracic back pain[ICD9: 724.1] Yaima JOHNSON [facility] CPT-4: 87950 03/05/2014 ([id number]) OFFICE/OUTPATIENT VISIT EST Diagnosis: SINUSITIS, ACUTE[ICD9: 461.9] Diagnosis: BRONCHITIS, ACUTE[ICD9: 466.0] Yaima JOHNSON [facility] CPT-4: 94742 07/29/2013 ([id number]) OFFICE/OUTPATIENT VISIT EST Diagnosis: ABDOMINAL PAIN[ICD9: 789.00] Diagnosis: Constipation[ICD9: 564.00] Diagnosis: DIVERTICULITIS, COLONIC[ICD9: 562.11] [facility] 40263 03/20/2013 ([id number]) OFFICE/OUTPATIENT VISIT EST Diagnosis: Plantar fasciitis[ICD9: 728.71] Diagnosis: ALLERGIC RHINITIS[ICD9: 477.9] [facility] [facility] CPT-[facility] 81069 02/12/2013 OFFICE/OUTPATIENT VISIT EST Diagnosis: Skin lesion[ICD9: 709.9] Diagnosis: Lumbar back pain[ICD9: 724.2] Diagnosis: Muscle spasm[ICD9: 728.85] Diagnosis: Hypothyroid[ICD9: 244.9] Yaima DUMONT [facility] CPT-4: 66764 11/05/2012 ([id number]) OFFICE/OUTPATIENT VISIT EST Diagnosis: Cervicalgia[ICD9: 723.1] Diagnosis: Thoracic back pain[ICD9: 724.1] Diagnosis: SPASM OF MUSCLE[ICD9: 728.85] Yaima JOHNSON [facility] CPT-4: 71042 10/04/2012 ([id number]) OFFICE/OUTPATIENT VISIT EST Diagnosis: MALAISE AND FATIGUE[ICD9: 780.79] Diagnosis: HYPOTHYROIDISM[ICD9: 244.9] Diagnosis: HYPERTENSION[ICD9: 401.9] Yaima [facility] CPT-4: 42699 09/24/2012 ([id number]) OFFICE/OUTPATIENT VISIT EST Diagnosis: Lateral epicondylitis[ICD9: 726.32] Diagnosis: Wrist pain[ICD9: 719.43] Diagnosis: Numbness and tingling in right hand[ICD9: 782.0] Yaima RaviRobin [facility] CPT-4: 59269 05/10/2012 OFFICE/OUTPATIENT VISIT EST Diagnosis: MALAISE AND FATIGUE[ICD9: 780.79] Diagnosis: HYPOTHYROIDISM[ICD9: 244.9] Diagnosis: Enthesopathy of the wrist and carpus[ICD9: 726.4] Diagnosis: Foot pain[ICD9: 729.5] Diagnosis: DYSPHAGIA NEC[ICD9: 787.29] Yaima MCCORMACKLINE S. O RENDER DO [facility] CPT-4: 38982 03/07/2012 ([id number]) OFFICE/OUTPATIENT VISIT EST Diagnosis: HYPOTHYROIDISM[ICD9: 244.9] Yaima Johnson YAIMA S. O RENDER DO [facility] CPT-4: 77690 02/01/2012 ([id number]) OFFICE/OUTPATIENT VISIT EST Diagnosis: MALAISE AND FATIGUE[ICD9: 780.79] Diagnosis: HYPOTHYROIDISM[ICD9: 244.9] Yaima Johnson YAIMA S. O RENDER [facility] CPT-4: 99292 12/20/2011 OFFICE/OUTPATIENT VISIT EST Diagnosis: INSECT BITE HIP/LEG[ICD9: 916.4] Lizzette Escalera [facility] CPT-4: 27345 11/22/2011 OFFICE/OUTPATIENT VISIT EST Diagnosis: HEMATURIA NOS[ICD9: 599.70] Yaima Johnson YAIMA S. O RENDER DO [facility] CPT-4: 96538 07/14/2011 OFFICE/OUTPATIENT VISIT EST Diagnosis: URINARY TRACT INFECTION[ICD9: 599.0] Diagnosis: DIVERTICULITIS, COLONIC[ICD9: 562.11] Yaima BRIGHTMARILYN Escalera [facility] CPT-4: 57501 07/11/2011 OFFICE/OUTPATIENT VISIT EST Diagnosis: TMJ arthritis[ICD9: 524.69] Diagnosis: MIGRAINE NOS/NOT INTRCBL[ICD9: 346.90] Diagnosis: Rectal fissure[ICD9: 565.0] Yaima Oreyvesvalorie YAIMA Ravi. O RENDER [facility] CPT-4: 53958 07/06/2011 OFFICE/OUTPATIENT VISIT EST Diagnosis: SPASM OF MUSCLE[ICD9: 728.85] Diagnosis: PAIN, LOWER BACK[ICD9: 724.2] Yaima Josueyvesvalorie YAMIA Escalera [facility] CPT-4: 14881 05/26/2011 OFFICE/OUTPATIENT VISIT EST Diagnosis: PAIN, LOWER BACK[ICD9: 724.2] Diagnosis: SPASM OF MUSCLE[ICD9: 728.85] Yaima Josueyvesvalorie YAIMA Escalera [facility] CPT-4: 74837 05/16/2011 OFFICE/OUTPATIENT VISIT EST Diagnosis: PAIN, LOWER BACK[ICD9: 724.2] Diagnosis: ENTHESOPATHY OF HIP[ICD9: 726.5] Diagnosis: Onychomycosis[ICD9: 110.1] Yaima Josuesara Escalera [facility] CPT-4: 34704 05/05/2011 OFFICE/OUTPATIENT VISIT EST Diagnosis: Diverticulitis[ICD9: 562.11] Yaima Josueyvesvalorie YAIMA Escalera [facility] CPT-4: 97570 04/05/2011 OFFICE/OUTPATIENT VISIT EST Diagnosis: CHEST PAIN NOS[ICD9: 786.50] Diagnosis: PALPITATIONS[ICD9: 785.1] Diagnosis: Pulmonary arterial hypertension[ICD9: 416.8] Yaima Josuesara Escalera [facility] CPT-4: 71069 03/02/2011 OFFICE/OUTPATIENT VISIT EST Yaimaperlita Gaytaner [facility] CPT- 4: 57501 01/05/2011 ([id number]) OFFICE/OUTPATIENT VISIT EST Yaimaperlita Gaytaner [facility] CPT-4: 78672 11/16/2010 ([id number]) OFFICE/OUTPATIENT VISIT EST Yaimaperlita Salasnder [facility] CPT-4: 76922 11/04/2010 ([id number]) OFFICE/OUTPATIENT VISIT EST Yaimaperlita Gaytaner [facility] CPT-4: 98896 08/05/2010 ([id number]) OFFICE/OUTPATIENT VISIT EST Yaimaperlita Gaytaner [facility] CPT-4: 21793 07/23/2010 ([id number]) OFFICE/OUTPATIENT VISIT, EST Yaimaperlita Gaytaner NADIA [facility] CPT-4: 84076 06/07/2010 ([id number]) OFFICE/OUTPATIENT VISIT, EST Yiamaperlita Gaytaner [facility] CPT-4: 36980 05/12/2010 ([id number]) OFFICE/OUTPATIENT VISIT, EST Yaima Gaytaner [facility] CPT-4: 84605 04/27/2010 ([id number]) OFFICE/OUTPATIENT VISIT, EST Yaimaperlita Gaytaner [facility] CPT-4: 17569 04/19/2010 ([id number]) OFFICE/OUTPATIENT VISIT, EST Yaimaperlita Gaytaner [facility] CPT-4: 16153 03/09/2010 ([id number]) OFFICE/OUTPATIENT VISIT, EST Yaima Lukaser [facility] CPT-4: 00307 01/04/2010 ([id number]) OFFICE/OUTPATIENT VISIT, EST Yaima Lukaser [facility] CPT-4: 04155 12/14/2009 ([id number]) OFFICE/OUTPATIENT VISIT, EST Lizzette Lozano [facility] CPT-4: 89651 11/23/2009 Plan of Care Planned Activity Notes Codes Status Date Visit Diagnosis Plan: Asthma Discussion: Has proair to use prn Prevnar 13 given ICD-9 : 493.90 ICD-10 : J45.909 07/03/2019 Visit Diagnosis Plan: Hyperglycemia, unspecified Discu ssion: Lifestyle change and repeat HbA1C in 3mos then fwup ICD-9 : 790.29 ICD-10 : R73.9 07/03/2019 Visit Diagnosis Plan: Hilar lymphadenopathy Discussion : Repeat CT scan of chest in August ICD-9 : 785.6 ICD-10 : R59.0 07/03/2019 Visit Diagnosis Plan: Hypothyroidism Discussion: Lab d iscussed ICD-9 : 244.9 ICD-10 : E03.9 07/03/2019 Care Plan: COMPREH[place] : [address]-0 Pending 06/18/2019 Care Plan: LIPID PANEL LOINC : 40731-2 Pending 06/18/2019 Care Plan: A1C HPLC LOINC : 69927-6 Pending 06/18/2019 Care Plan: COMPLETE CBC W/AUTO DIFF WBC LOINC : 18072-0 Pending 06/18/2019 Care Plan: ASSAY THYROID STIM [...] ICD-10 : M54.5 04/12/2019 Appointment: Jane Nettles [address] [place], [place] [phone] ACUTE ILLNESS 04/12/2019 Appointment: Yaima Johnson WPtel: [facility] US CANCELED 02/05/2019 Visit Diagnosis Plan: Pain in thoracic spine Discussio n: Moist Heat Topical Muscle Rub Towel Stretch Skelaxin with Tylenol Arthritis TID Okay to use lidoderm patches Notify if persists ICD-9 : 724.1 ICD-10 : M54.6 01/16/2019 Appointment: Yaima Johnson WPtel: [address] [place] [address] ACUTE ILLNESS 01/16/2019 Appointment: Yaima Johnson WPtel: [address] [place] [address] UA 01/14/2019 Visit Diagnosis Plan: Left lower quadrant pain Discuss ion: Appears to have a hernia so did discuss surgical evaluation ICD-9 : 789.04 ICD-10 : R10.32 01/09/2019 Appointment: Yaima Johnson WPtel: [address] [place] [address] ACUTE ILLNESS 01/09/2019 Visit Diagnosis Plan: Encounter for [facility] adult medical examination without abnormal findings Discussion: [...] : Z00.00 11/21/2018 Appointment: Yaima Johnson WPtel: [address] [place] [address] WELCOME TO MEDICARE 11/21/2018 Care Plan: Referral Order SNOMED-CT : 30 [id number] Pending 11/21/2018 Appointment: Yaima Johnson WPtel: [address] [place] [address] 11/01/2018 Visit Diagnosis Plan: Other cervical dis c degeneration, unspecified cervical region Discussion: MRI results discussed fw w [facility] Dr. Johnson ICD-9 : 722.4 ICD-10 : M50.30 10/04/2018 Visit Diagnosis Plan: Hypothyroidism, unspecified Disc ussion: Restart synthroid at 50mcg daily and recheck lab in 3mos ICD-9 : 244.9 ICD-10 : E03.9 10/04/2018 Appointment: Yaima Johnson WPtel: [address] [place], [place] [address] FOLLOW UP 10/04/2018 Care Plan: Referral Order SNOMED-CT : 30 4843131 Pending 10/04/2018 Visit Diagnosis Plan: Hypothyroidism, unspecified [...] : M54.2 08/06/2018 Appointment: Yaima Johnson WPtel: [facility] [facility]are annual! FOLLOW UP 2018 Patient Education: levothyroxine- Optimize[employer] Coupon [phone] [id number] [email or web address]/[email or web address] Completed 08/06/2018 Visit Diagnosis Plan: Radiculopathy, lumbosacral regio n Discussion: Daily stretches and see if improves--low dose gabapentin trial q HS if does not improve Lab and fwup in 3mos ICD-9 : 724.4 ICD-10 : M54.17 06/21/2018 Visit Diagnosis Plan: Abrasion, left lower leg, sequel a Discussion: Vitamin E topically for scarring/dryness ICD-9 : 906.2 ICD-10 : S80.812S 06/21/2018 Appointment: Yaima Johnson WPtel: [facility] [place] [facility] 06/21/2018 Appointment: Yaima Johnsontewilson: [facility] UA 06/13/2018 Visit Diagnosis Plan: Other dorsalgia [...] ICD-10 : M54.89 05/31/2018 Appointment: Jane Nettles [address] [place] [address] ACUTE ILLNESS 05/31/2018 Appointment: Yaima Johnson WPtel: [address] [place] [address] INJECTION 03/22/2018 Patient Education: Patient Medication Summary Completed 03/22/2018 Patient Education: INFLUENZA VACCINE CDC Completed 03/22/2018 Appointment: Yaima Johnson WPtel: [address] [place] [address] RESCHEDULED 02/14/2018 Visit Diagnosis Plan: Hypothyroidism, unspecified Disc ussion: Lab discussed Has had both Shingrix shots Follow Up: 6 months ICD-9 : 244.9 ICD-10 : E03.9 02/06/2018 Visit Diagnosis Plan: Other seasonal allergic rhinitis Discussion: Increase claritin to 10mg po BID for 1-2 weeks ICD-9 : 477.9 ICD-10 : J30.2 02/06/2018 Visit Diagnosis Plan: Essential (primary) hypertension Discussion: Stable Sees Dr. Chase later this month ICD-9 : 401.9 ICD-10 : I10 02/06/2018 Appointment: Yaima Johnson WPtel: [address] FOLLOW UP 02/06/2018 Patient Education: Patient Medication Summary Completed 02/06/2018 Appointment: Yaima Johnson WPtel: [address] [place], [place] [phone] [place] INJECTION 12/28/2017 Patient Education: Patient Medication Summary Completed 12/28/2017 Appointment: Yaima Johnson WPtel: [address] [place], [place] [phone] RESCHEDULED 12/25/2017 Visit Diagnosis Plan: Tinnitus, bilateral Discussion: See ENT for hearing eval and further workup ICD-9 : 388.31 ICD-10 : H93.13 12/18/2017 Appointment: Yaima Johnson WPtel: [address] [place], [place] [address] ACUTE ILLNESS 12/18/2017 Patient Education: Patient Medication Summary Completed 12/18/2017 Patient Education: Tinnitus Completed 12/18/2017 Care Plan: Referral Order SNOMED-CT : 30 [id number] Pending 12/18/2017 Appointment: Yaima Johnson WPtel: [address] [place] [address] BP CHECK 12/11/2017 Patient Education: Patient Medication Summary Completed 12/11/2017 Referral: Danyel Hernandez WPtel: [facility] [address] Referral Initiated 10/11/2017 Appointment: Yaima Johnson WPtel: [address] [place], [place] [phone] [place] INJECTION 10/04/2017 Patient Education: Patient Medication Summary Completed 10/04/2017 Visit Diagnosis Plan: Gastro-esophageal reflux disease without esophagitis Discussion: Stable ICD-9 : 530.81 ICD-10 : K21.9 09/11/2017 Visit Diagnosis Plan: Essential (primary) hypertension [...] ICD-9 : 244.9 ICD-10 : E03.9 09/11/2017 Visit Diagnosis Plan: Pain in right knee Discussion: S thelma rocha for injection--had surgery 1 year ago ICD-9 : 719.46 ICD-10 : M25.561 09/11/2017 Appointment: Yaima Johnson WPtel: [phone] [phone] FOLLOW UP 09/11/2017 Patient Education: Patient Medication Summary Completed 09/11/2017 Appointment: Jane Nettles [address] 08/28/17 [phone]---issue addressed in phone message (km) CANCELED 08/29/2017 Patient Education: Patient Medication Summary Completed 07/11/2017 Care Plan: A1C HPLC LOINC : 40088-9 Pending 07/11/2017 Care Plan: ASSAY OF FREE THYROXINE Pendin g 07/11/2017 Care Plan: ASSAY THYROID STIM HORMONE Pen ding 07/11/2017 Care Plan: COMPLETE CBC W/AUTO DIFF WBC LOINC : 95122-0 Pending 07/11/2017 Care Plan: COMPREH[place] : [address]-4 Pending 07/11/2017 Visit Diagnosis Plan: Cervicalgia Discussion: Daily ne ck stretches Moist Heat ICD-9 : 723.1 ICD-10 : M54.2 03/28/2017 Visit Diagnosis Plan: Hypothyroidism, unspecified Disc ussion: Lab done in February--will recheck in August and ICD-9 : 244.9 ICD-10 : E03.9 03/28/2017 Visit Diagnosis Plan: Essential (primary) hypertension Discussion: Stable Flu shot given ICD-9 : 401.9 ICD-10 : I10 03/28/2017 Visit Diagnosis Plan: Irritant contact dermatitis, uns pecified cause Discussion: Topical Betamethasone ICD-9 : 692.9 ICD-10 : L24.9 03/28/2017 Appointment: Yaima Johnson WPtel: [address] [facility] ACUTE ILLNESS 03/28/2017 Patient Education: Patient Medication Summary Completed 03/28/2017 Patient Education: Patient Medication Summary Completed 02/17/2017 Care Plan: ASSAY OF FREE THYROXINE Pendin g 02/17/2017 Care Plan: ASSAY THYROID STIM HORMONE Pen ding 02/17/2017 Care Plan: A1C HPLC LOINC : 45478-4 Pending 02/17/2017 Patient Education: Patient Medication Summary Completed 11/23/2016 Care Plan: A1C HPLC LOINC : 38808-0 Pending 11/23/2016 Patient Education: Patient Medication Summary Completed 11/22/2016 Care Plan: COMPREH[place] : [address]-0 Pending 11/22/2016 Care Plan: ASSAY THYROID STIM HORMONE Pen ding 11/22/2016 Care Plan: ASSAY OF FREE THYROXINE Pendin g 11/22/2016 Care Plan: CBC Pending 11/22/2016 Care Plan: ASSAY TRIIODOTHYRONINE (T3) Pe nding 11/22/2016 Care Plan: ASSAY OF IRON Pending Care Plan: VITAMIN B-12 Pending 11/04 Patient Education: Patient Medication Summary Completed 11/09/2016 Care Plan: US EXAM ABDO BACK WALL COMP L OINC : 62589-8 Pending 11/09/2016 Patient Education: Patient Medication Summary Completed 09/26/2016 Visit Diagnosis Plan: Influenza due to i dentified novel influenza A virus with other manifestations Discussion: Tamiflu for her and ICD-9 : 488.09 ICD-10 : J09.X9 09/12/2016 Visit NOS Plan: Plan Notes: Saline nasal flu shes prn. Tyle... 09/12/2016 Appointment: Yaima Johnson WPtel: [address] [place], [place] [address] ACUTE ILLNESS 09/12/2016 Patient Education: Patient Medication Summary Completed 09/12/2016 Visit Diagnosis Plan: Pain in right knee Discussion: M RI of right knee scheduled for this weekend by ortho ICD-9 : 719.46 ICD-10 : M25.561 07/28/2016 Visit Diagnosis Plan: Dermatitis, unspecified Discussi on: Use clotrimazole/betamethasone BID to hand rash ICD-9 : 692.9 ICD-10 : L30.9 07/28/2016 Appointment: Yaima Johnson WPtel: [address] [facility] [place] 07/27 confirmed `sl ACUTE ILLNESS 07/28/2016 Patient [...] how does 04/26/2016 Appointment: Yaima Johnson WPtel: [address] [place], [place] [address] ACUTE ILLNESS 04/26/2016 Patient Education: Patient Medication Summary Completed 04/26/2016 Appointment: Yaima Johnson WPtel: [address] [place], [place] [phone] [place] INJECTION 04/22/2016 Patient Education: Patient Medication Summary Completed 04/22/2016 Appointment: Yaima Johnson WPtel: [address] [place], [place] [phone] Stool lab 01/04/2016 Patient Education: Patient Medication Summary Completed 01/04/2016 Visit Plan: Calmoseptine to irritated gr oin area Discussed that liver lesion and right kidney cyst are stable dating back to 2009 so likely benign and will recheck in 1year Check CMP and CBC 12/09/2015 Appointment: Yaima Johnson WPtel: [address] [place], [place] [phone] [place] FOLLOW UP 12/09/2015 Patient Education: Patient Medication Summary Completed 12/09/2015 Patient Education: Patient Medication Summary Completed 11/26/2015 Care Plan: ECHO EXAM OF ABDOMEN LOINC : 45545-7 Pending 11/26/2015 Care Plan: US EXAM ABDO BACK WALL COMP L OINC : 95169-4 Pending 11/26/2015 Patient Education: Patient Medication Summary Completed 11/10/2015 Care Plan: ASSAY THYROID STIM HORMONE Pen ding 11/10/2015 Care Plan: ASSAY OF FREE THYROXINE Pendin g 11/10/2015 Visit Plan: Start PT for both right leg sciatica and thoracics for chest pain 09/10/2015 Appointment: Yaima Johnson WPtel: [address] [place], [place] [phone] ACUTE ILLNESS 09/10/2015 Patient Education: Patient Medication Summary Completed 09/10/2015 Appointment: Yaima Johnson WPtel: [address] [place] [address] [place] INJECTION 07/20/2015 Patient Education: Patient Medication Summary Completed 07/20/2015 Patient Education: Patient Medication Summary Completed 05/04/2015 Visit Plan: Observe left elbow for next 2 weeks and if not improving let us know Observe left leg bruising Can use voltaren gel to elbow Observe ribs Lidoderm patch for SI joint 04/23/2015 Appointment: Yaima Johnson WPtel: [address] [place] [address] FOLLOW UP 04/23/2015 Patient Education: Patient Medication Summary Completed 04/23/2015 Patient Education: Patient Medication Summary Completed 04/20/2015 Visit Plan: Discussed CT results Add Milton alax 1/2 cap every other day 03/24/2015 Appointment: Yaima Johnson WPtel: [address] [place] [address] 03/23 confirmed~sl FOLLOW UP 03/24/2015 Patient Education: Patient Medication Summary Completed 03/24/2015 Appointment: Yaima Johnson WPtel: [address] [place], [place] [phone] [place] INJECTION 03/09/2015 Patient Education: Patient Medication Summary Completed 03/09/2015 Visit Plan: Check CT scan of abdomen and pelvis with oral contrast Thoracic towel stretch 03/05/2015 Appointment: Yaima Johnson WPtel: [address] [place] [address] [place] FOLLOW UP 03/05/2015 Patient Education: Patient Medication Summary Completed 03/05/2015 Referral: Richmond Berger WPtel: [address] [id number] [place] Referral Initiated 02/23/2015 Visit Plan: Lab [...] joint and left knee 02/19/2015 Appointment: Yaima Johnsontel: [address] [place], [place] [phone] 02/18/15 lm confirmed with cb FOLLOW UP Patient Education: Patient Medication Summary Completed 02/19/2015 Patient Education: Patient Medication Summary Completed 02/04/2015 Appointment: Yaima Johnsontel: [address] [facility] FOLLOW UP 01/06/2015 Visit Plan: Decrease levothyroxine to 50 mcg daily Recheck TSH and Free T4 in 2mos then fwup 12/25/2014 Appointment: Yaima Johnson WPtel: [phone] [facility] ACUTE ILLNESS 12/25/2014 Patient Education: Patient Medication Summary Completed 12/25/2014 Patient Education: [facility] - Saving [employer] - Levothyroxine - 18-64 - Dynamic Portal ID Completed 12/25/2014 Patient Education: Patient Medication Summary Completed 12/15/2014 Visit Plan: Observe left leg keep meds s robert Has scheduled for 2nd epidural Recheck 3-4weeks after next epidural 11/26/2014 Appointment: Yaima Johnson WPtel: [facility] 11/25 appt confirmed cn FOLLOW UP 11/27/19 15 Patient Education: Patient Medication Summary Completed 11/26/2014 Visit Plan: Increase Protonix to 40mg po BID Add Bentyl 10mg BID and up to TID prn Patient goes for back injection in 3 weeks Fwup 1 week after back injection 11/04/2014 Appointment: Yaima Johnson WPtel: [phone] [facility] 11/03/ / 11/04 appt confirmed ACUTE ILLNESS 0 11/04/2014 Patient Education: Patient Medication Summary Completed 11/04/2014 Appointment: Yaima Johnson WPtel: [address] [place], [place] [phone] 10/14/14: doing better-canceled appt-lb ACUTE ILL NESS 10/15/2014 Visit Plan: hydration stop benadryl Obse rve and monitor Headaches Leg stretches, going to PT today-have them show stretches Notify if headaches, leg pain return/persist 09/01/2014 Appointment: Yaima Johnson WPtel: [address] [place], [place] [phone] ACUTE ILLNESS 09/01/2014 Patient Education: Patient Medication Summary Completed 09/01/2014 Patient Education: Patient Medication Summary Completed 08/05/2014 Care Plan: ASSAY OF FREE THYROXINE Ordere d 08/05/2014 Care Plan: ASSAY THYROID STIM HORMONE Ord ered 08/05/2014 Appointment: Yaima Johnson WPtel: [address] [place], [place] [phone] [place] [address] 07/10/2014 Patient Education: Patient Medication Summary Completed 07/10/2014 Patient Education: Patient Medication Summary Completed 07/03/2014 Care Plan: HEPATIC FUNCTION PANEL Ordered 07/03/2014 Visit Plan: Vaginal ring unable to be in serted do will have to stick with pill vaginally as prescribed for at least 6mo trial Saline nasal flushes and restart flonase 06/02/2014 Appointment: Yaima Johnson WPtel: [address] [place], [place] [phone] FOLLOW UP 06/02/2014 Patient Education: Patient Medication Summary Completed 06/02/2014 Appointment: Yaima Johnson WPtel: [address] [place], [place] [phone] BP CHECK 05/26/2014 Patient Education: Patient Medication Summary Completed 05/26/2014 Patient Education: Patient Medication Summary Completed 05/22/2014 Appointment: Yaima Johnson WPtel: [address] [place], [place] [phone] BP CHECK 05/07/2014 Patient Education: Patient Medication Summary Completed 05/07/2014 Referral: Nitesh Avalos WPtel: [address] 403 [id number] MRI Scheduled at [place], 04/17 3pm Completed 04/30/2014 Appointment: Yaima Johnson WPtel: [address] [place], [place] [phone] BP CHECK 04/15/2014 Visit Plan: Decrease premarin to 0.3125m g for 1week then stop Restart estrogen vaginal tabs and Patient requests to see Dr. Restrepo for back but discussed at this time appears to need conservative management such as PT and epidurals Moniter BP 04/08/2014 Appointment: Yaima Johnson WPtel: [address] [place], [place] [phone] ACUTE ILLNESS 04/08/2014 Patient Education: Patient Medication Summary Completed 04/08/2014 Appointment: Yaima Johnson WPtel: [address] [place] [address] ACUTE ILLNESS 03/10/2014 Visit Plan: Thoracic stretches daily Ske laxin 800mg BID Use vimovo prn Use gemma prn 03/05/2014 Appointment: Yaima Johnson WPtel: [address] [place] [address] ACUTE ILLNESS 03/05/2014 Patient Education: Patient Medication Summary Completed 03/05/2014 Visit Plan: Saline nasal flushes prn. Ty lenol/Motrin prn headache. Notify if persists/symptoms worsening. Zithromax and Prednisone Supportive care. Rest, Fluids, Tylenol/Motrin prn fever or bodyaches. Notify if worsening symptoms. 07/29/2013 Appointment: Mimi Keenan WPtel: [address] [place], [place] [phone] FOLLOW UP 07/29/2013 Patient Education: Patient Medication Summary Completed 07/29/2013 Appointment: Mimi Keenan WPtel: [address] [place] [address] 05/22 patient called back and reschedule d 05/24 vm not set up yet ACUTE ILLNESS 05/27/20 13 Visit Plan: Add miralax Cipro/Flagyl Pt has appointment with GI in NOV 03/20/2013 Appointment: Yaima Johnson WPtel: [address] [place] [address] ACUTE ILLNESS 03/20/2013 Patient Education: Patient Medication Summary Completed 03/20/2013 Visit Plan: Tullicups Stretches, ice, vo ltaren gel TID 02/12/2013 Appointment: Yaima Johnson WPtel: [address] [place] [address] ACUTE ILLNESS 02/12/2013 Patient Education: Patient Medication [...] Oct 2012. 11/05/2012 Appointment: Lizzette Lozano WPtel: [address] [place], [place] [phone] ACUTE ILLNESS 11/05/2012 Patient Education: Patient Medication Summary Completed 11/05/2012 Appointment: Yaima Johnson WPtel: [address] [place], [place] [address] FOLLOW UP 10/04/2012 Patient Education: Patient Medication Summary Completed 10/04/2012 Visit Plan: Change toprol back to bystol ic BP check in 3wks Continue to observe hands--no observed bruising today 09/24/2012 Appointment: Yaima Johnsontel: [address] [place], [place] [phone] 09/21 left message ACUTE ILLNESS 09/24/2012 Patient Education: Patient Medication Summary Completed 09/24/2012 Visit Plan: Proceed with EMG of RUE Cont inue vimovo and skelaxin May use Voltaren gel TID to elbow and wrist 05/10/2012 Appointment: Yaima Johnson WPtel: [address] [place], [place] [phone] 05/09 left voicemail ACUTE ILLNESS 05/10/2012 Patient [...] to nares--bleeding is improving 03/07/2012 Appointment: Yaima Johnson WPtel: [address] [place] [address] FOLLOW UP 03/07/2012 Patient Education: Patient Medication Summary Completed 03/07/2012 Visit Plan: Continue current dose Check TSH, Free T4 in 2mos 02/01/2012 Appointment: Yaima Johnsontel: [address] [place], [place] [phone] FOLLOW UP 02/01/2012 Patient Education: Patient Medication Summary Completed 02/01/2012 Visit Plan: Levothyroxine 50mcg po daily 12/20/2011 Appointment: Yaima Johnson WPtel: [address] [place], [place] [id number] FOLLOW UP 12/20/2011 Patient Education: Patient Medication Summary Completed 12/20/2011 Appointment: Lizzette Lozano WPtel: [address] [place], [place] [phone] ACUTE ILLNESS 11/22/2011 Patient Education: Patient Medication Summary Completed 11/22/2011 Appointment: Yaima Johnsonl: [address] [place] [address] UA 07/14/2011 Patient Education: Patient Medication Summary Completed 07/14/2011 Visit Plan: Finish current abx Clear liq uids to full liquids and then advance as tolerated If worsens will notify immediately Schedule with Dr. Berger for colonoscopy/EGD 07/11/2011 Appointment: Yaima Johnson WPtel: [address] [place] [address] ER Follow UP 07/11/2011 Patient Education: Patient Medication Summary Completed 07/11/2011 Visit Plan: Take treximet today and skel axin at bedtime Add anusol cream for 1wk Discussed if colon continues to flare-up over the next 6mos will repeat colonoscopy 07/06/2011 Appointment: Yaima Johnson WPtel: [address] [place] [address] ACUTE ILLNESS 07/06/2011 Patient Education: Patient Medication Summary Completed 07/06/2011 Appointment: Yaima Johnson WPtel: [address] [place] [address] INJECTION 06/28/2011 Patient Education: Patient Medication Summary Completed 06/28/2011 Visit Plan: OMT done Increase Skelaxin t o TID Start PT Daily stretches 05/26/2011 Appointment: Yaima Johnson WPtel: [address] [place] [address] ACUTE ILLNESS 05/26/2011 Patient Education: Patient Medication Summary Completed 05/26/2011 Visit Plan: OMT done Daily stretches, bi ofreeze Restart skelaxin 05/16/2011 Appointment: Yaima Johnson WPtel: [address] [place] [address] OMT 05/16/2011 Patient Education: Patient Medication Summary Completed 05/16/2011 Visit Plan: OMT done to back Stretches, moist heat and biofreeze Observe toenails 05/05/2011 Appointment: Yaima Johnson WPtel: [address] [place], [place] [phone] ACUTE ILLNESS 05/05/2011 Patient Education: Patient Medication Summary Completed 05/05/2011 Visit Plan: Finish Flagyl Continue Cultu relle and add Levbid for 1more week 04/05/2011 Appointment: Yaima Johnson WPtel: [address] [place], [place] [address] ER Follow UP 04/05/2011 Patient Education: Patient Medication Summary Completed 04/05/2011 Appointment: Lizzette Lozano WPtel: [address] [place] [address] ACUTE ILLNESS 03/25/2011 Appointment: Yaima Johnson WPtel: [address] [place], [place] [address] UA 03/23/2011 Patient Education: Patient Medication Summary Completed 03/23/2011 Visit Plan: Recommend proceed with heart cath Will check PFTs 03/02/2011 Appointment: Yaima Johnson WPtel: [address] [place] [address] FOLLOW UP 03/02/2011 Patient Education: Patient Medication Summary Completed 03/02/2011 Appointment: Yaima Johnson WPtel: [address] [place], [place] [phone] LAB 01/14/2011 Patient Education: Patient Medication Summary Completed 01/14/2011 Appointment: Lizzette Lozano WPtel: [address] [place], [place] [phone] ACUTE ILLNESS 01/05/2011 Patient Education: Patient Medication Summary Completed 01/05/2011 Visit Plan: Once again stressed importan ce of using premarin vaginal cream routinely to see if helps urinary symptoms Will culture urine Will observe lipomas--discussed may see surgery for removal 11/16/2010 Appointment: Yaima Johnson WPtel: [address] [place], [place] [address] ACUTE ILLNESS 11/16/2010 Patient Education: Patient Medication Summary Completed 11/16/2010 Visit Plan: Injection to bursa as above Pt will continue to moniter BP and pulse off meds Repeat potassium level in 1wk 11/04/2010 Appointment: Yaima Johnsontel: [address] [place], [place] [phone] [place] FOLLOW UP 11/04/2010 Patient Education: Patient Medication Summary Completed 11/04/2010 Appointment: Yaima Johnson WPtel: [address] [place] [address] [place] FOLLOW UP 08/05/2010 Patient Education: Patient Medication Summary Completed 08/05/2010 Appointment: Yaima Johnsontel: [address] [place] [address] ACUTE ILLNESS 07/23/2010 Patient Education: Patient Medication Summary Completed 07/23/2010 Appointment: Yaima Johnson WPtel: [address] [place] [address] [place] UA 07/05/2010 Patient Education: Patient Medication Summary Completed 07/05/2010 Appointment: Yaima Johnsontel: [address] [place] [address] [place] BP CHECK 06/28/2010 Patient Education: Patient Medication Summary Completed 06/28/2010 Appointment: Yaima Johnson WPtel: [address] [place], [place] [phone] [place] UA 06/14/2010 Appointment: Yaima Johnson WPtel: [address] [place] [address] [place] BP CHECK 06/14/2010 Appointment: Yaima Johnson WPtel: [address] [place] [address] [place] BP CHECK 06/14/2010 Patient Education: Patient Medication Summary Completed 06/14/2010 Patient Education: Patient Medication Summary Completed 06/14/2010 Appointment: Yaima Johnson WPtel: [address] [place] [address] [place] BP CHECK 06/10/2010 Visit Plan: Decrease lisinopril hct to 1 0/12.5mg QD and moniter BP BP check in 2-3wks--if pulse is increasing will go back to bystolic See ENT to evaluate hoarseness 06/07/2010 Appointment: Yaima Johnson WPtel: [address] [place] [address] [place] FOLLOW UP 06/07/2010 Patient Education: Patient Medication [...] (See printoff) 05/12/2010 Appointment: Lizzette Lozano WPtel: [address] [place] [address] ACUTE ILLNESS 05/12/2010 Patient Education: Patient Medication Summary Completed 05/12/2010 Visit Plan: Continue Bentyl at QAC and H S Continue protonix but increase to BID for 5-7 days If any fever or signs of divertuclitis develop notify 04/27/2010 Appointment: Yaima Johnson WPtel: [address] [place] [address] ACUTE ILLNESS 04/27/2010 Patient Education: Patient Medication Summary Completed 04/27/2010 Visit Plan: flako barajas. Refils. Kaden razolam #90, -written RX 04/19/2010 Appointment: Lizzette Lozano WPtel: [address] [place] [address] ACUTE ILLNESS 04/19/2010 Patient Education: Patient Medication Summary Completed 04/19/2010 Appointment: Yaima Johnson WPtel: [address] [place] [address] LAB 04/12/2010 Patient Education: Patient Medication Summary Completed 04/12/2010 Appointment: Yaima Johnsontel: [address] [place] [address] UA 04/08/2010 Patient Education: Patient Medication Summary Completed 04/08/2010 Appointment: Yaima Johnson WPtel: [address] [place] [address] FOLLOW UP 03/09/2010 Patient Education: Patient Medication Summary Completed 03/09/2010 Appointment: Yaima Johnson WPtel: [address] [place] [address] BP CHECK 01/19/2010 Patient Education: Patient Medication Summary Completed 01/19/2010 Visit Plan: Check CT head Increase Bysto lic to 5mg QD BP check in 2wks 01/04/2010 Appointment: Yaima Johnsontel: [address] [place] [address] ACUTE ILLNESS 01/04/2010 Patient Education: Patient Medication Summary Completed 01/04/2010 Appointment: Yaima Johnsontel: [address] [place] [address] BP CHECK 12/21/2009 Patient Education: Patient Medication Summary Completed 12/21/2009 Visit Plan: Change cenestin back to Liu emigdio Cont to moniter BP BP check in 1wk 12/14/2009 Appointment: Yaima Johnson WPtel: [address] [place] [address] FOLLOW UP 12/14/2009 Patient Education: Patient Medication Summary Completed 12/14/2009 Appointment: Lizzette Lozano WPtel: [address] [place] [address] FOLLOW UP 11/23/2009 Patient Education: Patient Medication Summary Completed 11/23/2009 Appointment: Yaima Johnson WPtel: [address] [place], [place] [phone] [place] LAB 09/29/2009 Patient Education: Patient Medication Summary Completed 09/29/2009 Appointment: [facility]aim[facility] Johnson [facility]el[facility] [address] [facility] [id number] [place] 08/12/2009 Patient Education: Patient Medication Summary Completed 08/12/2009 Referral: Richmond Berger WPtel: [address] [id number] [place] Referral Appointment Requested Referral: Jayce Boyce WPtel: [address] [id number] [place] Referral Appointment Requested Referral: Naldo Johnson WPtel: [address] [id number] [place] Referral Initiated Referral: Naldo Johnson WPtel: [address] [id number] [place] Referral Appointment Requested Instructions Comment . [...] has appointment with GI in [place] . Tullicups Stretches, ice, voltaren gel TID . will [...]
--- OUTSIDE RECORDS SUMMARY | 2019-08-15 06:05 | XMS REPORT | CCD ---
Author Author Fay Johnson D.O. Organization [facility] Address [address] [place] [address] Phone Care Team Providers Care Oracle Fusion Consultant Name Role Phone Yaima Johnson D.O., PP Unavailable CCM Unavailable Summary Purpose Interface Exchange Insurance Providers Payer name Policy type / Coverage type Covered republican ID Effective Begin Date Effective End Date WPS MEDICARE PART B [place] Medicare Part B [id number] 2018 Unknown [facility] [facility] Medicare Part B [id number] 2018 Unknown Family History Family History data not found Social History Social History Element Codes Description Effective Dates Marital status Unknown 05/16/[address]: [id number] Never smoker 04/05/2011 Allergies, Adverse Reactions, Alerts [...] Instructions Probiotic 10 billion cell capsule RxNorm: 8379662 1 Capsule(s) O ral QD 07/03/2019 No Stop Date Active cetirizine 10 mg tablet RxNorm: 0755493 1 Tablet(s) Oral QD 020 No Stop Date Active levothyroxine 50 mcg tablet RxNorm: 612089 1 Tablet(s) Oral QD 06/0612/20/2019 Active Macrobid 100 mg capsule RxNorm: 075836 1 Capsule(s) Oral two ti mes a day 04/12/2019 04/19/2019 Inactive Toprol XL 25 mg tablet,extended release RxNorm: 401356 1 Tablet (s) PO QD 03/13/2019 09/08/2019 Active Generic For:TOPROL X L 25MG TAB SA 12/21/2015 9:08:41 AM Mobic 7.5 mg tablet RxNorm: 574174 1 Tablet(s) PO QOD opposite days as aleve 11/21/2018 11/21/2018 Inactive dicyclomine 10 mg capsule RxNorm: 516981 1 Capsule(s) P O TID as needed for abdominal pain 08/23/2018 No Stop Date Active alprazolam 0.25 mg tablet RxNorm: 245648 1 Tablet(s) PO Q8H as needed for anxiety 08/10/2018 11/20/2018 Inactive [AttnRPh: Saving apply/adjudicate RxGRP:SG20 RxBIN:[id number] RxPCN: ID#:[id number]] levothyroxine 25 mcg tablet RxNorm: 738665 1 Tablet(s) PO QD replaces 50mcg dose 08/06/2018 10/04/2018 Inactive levothyroxine 25 mcg tablet RxNorm: 519722 1 Tablet(s) PO QD replaces 50mcg dose 08/06/2018 08/05/2018 Inactive levothyroxine 50 mcg tablet RxNorm: 443911 1 Tablet(s) PO QD 201808/05/2018 Inactive Generic For:*SYNTHROID 0.05M G TAB 08/09/2016 8:59:33 AM Mobic 7.5 mg tablet RxNorm: 634472 1 Tablet(s) PO QOD opposite days as aleve 07/10/2018 09/07/2018 Inactive Mobic 7.5 mg tablet RxNorm: 516183 1 Tablet(s) PO QD 07/10/201807/09 Inactive Toprol XL 25 mg tablet,extended release RxNorm: 124006 1 Tablet (s) PO QD 06/18/2018 03/12/2019 Inactive Generic For:TOPROL X L 25MG TAB SA 12/21/2015 9:08:41 AM amoxicillin 500 mg capsule RxNorm: 226191 1 Capsule(s) PO TID 06/0406/10/2018 Inactive amoxicillin 500 mg capsule RxNorm: 205468 1 Capsule(s) PO TID 06/0406/03/2018 Inactive Skelaxin 800 mg tablet RxNorm: 700074 1 Tablet(s) PO BI D as needed for muscle spasm 05/31/2018 No Stop Date Active levothyroxine 50 mcg tablet RxNorm: 469222 1 Tablet(s) PO QD 201707/25/2018 Inactive Generic For:*SYNTHROID 0.05M G TAB 08/09/2016 8:59:33 AM Toprol XL 25 mg tablet,extended release RxNorm: 853875 1 Tablet (s) PO QD 12/19/2017 06/16/2018 Inactive Generic For:TOPROL X L 25MG TAB SA 12/21/2015 9:08:41 AM ranitidine 150 mg tablet RxNorm: 964319 1 Tablet(s) PO BID 12/12/19 18 05/31/2018 Inactive levothyroxine 50 mcg tablet RxNorm: 006809 1 Tablet(s) PO QD TAKE 1 TABLET BY MOUTH EVERY DAY 08/03/2017 02/02/2018 Inactive Generic For:*SYN THROID 0.05MG TAB 08/09/2016 8:59:33 AM Singulair 10 mg tablet RxNorm: 640663 1 Tablet(s) PO QHS 07/11/2017 0 09/10/2017 Inactive dicyclomine 10 mg capsule RxNorm: 358947 1 Capsule(s) P O TID as needed for abdominal pain 06/08/2017 08/22/2018 Inactive ranitidine 150 mg tablet RxNorm: 299655 1 Tablet(s) PO BID 06/08/19 18 09/05/2017 Inactive Toprol XL 25 mg tablet,extended release RxNorm: 423889 1 Tablet (s) PO QD 06/08/2017 12/19/2017 Inactive Generic For:TOPROL X L 25MG TAB SA 12/21/2015 9:08:41 AM betamethasone dipropionate 0.05 % topical cream RxNorm: 2389 20 1 Application TOP QHS 03/28/2017 10/03/2018 Inactive levothyroxine 50 mcg tablet RxNorm: 707096 1 Tablet(s) PO QD TAKE 1 TABLET BY MOUTH EVERY DAY 02/03/2017 08/01/2017 Inactive Generic For:*SYN THROID 0.05MG TAB 08/09/2016 8:59:33 AM ranitidine 150 mg tablet RxNorm: 539306 1 Tablet(s) PO BID 12/16/19 17 06/08/2017 Inactive Toprol XL 25 mg tablet,extended release RxNorm: 054382 1 Tablet (s) PO QD 12/15/2016 06/08/2017 Inactive Generic For:TOPROL X L 25MG TAB SA 12/21/2015 9:08:41 AM ranitidine 150 mg tablet RxNorm: 462917 1 Tablet(s) PO BID 11/12/19 17 12/10/2016 Inactive ranitidine 75 mg tablet RxNorm: 739426 1 Tablet(s) PO QD 10/21/2016 0 11/10/2016 Inactive ranitidine 75 mg tablet RxNorm: 544459 1 Tablet(s) PO QD 10/21/2016 0 10/20/2016 Inactive Tamiflu 75 mg capsule RxNorm: 543825 1 Capsule(s) PO BID 09/12/2016 0 09/16/2016 Inactive Promethegan 25 mg rectal suppository RxNorm: 035490 1 S uppository RTL Q4H as needed 09/12/2016 03/27/2017 Inactive levothyroxine 50 mcg tablet RxNorm: 806611 TAKE 1 TABLET BY GIDEON TH EVERY DAY 08/09/2016 02/03/2017 Inactive Generic For:*SYNTHRO ID 0.05MG TAB 08/09/2016 8:59:33 AM famotidine 40 mg tablet RxNorm: 359106 1 Tablet(s) PO BID 07/22/2016 10/20/2016 Inactive clotrimazole-betamethasone 1 %-0.05 % topical cream RxNorm: 553638 1 Application TOP BID to rash prn--was supposed to be cream not lotion 06/23/2016 Inactive famotidine 40 mg tablet RxNorm: 373782 1 Tablet(s) PO BID 06/23/2016 07/21/2016 Inactive Toprol XL 25 mg tablet,extended release RxNorm: 237515 1 Tablet (s) PO QD 06/14/2016 12/15/2016 Inactive Generic For:TOPROL X L 25MG TAB SA 12/21/2015 9:08:41 AM dicyclomine 10 mg capsule RxNorm: 683175 1 Capsule(s) P O TID as needed for abdominal pain 04/26/2016 06/07/2017 Inactive dicyclomine 10 mg capsule RxNorm: 591510 1 Capsule(s) P O TID as needed for abdominal pain 04/26/2016 06/08/2017 Inactive famotidine 40 mg tablet RxNorm: 603012 1 Tablet(s) PO QD 04/26/2016 0 06/22/2016 Inactive Protonix 40 mg tablet,delayed release RxNorm: 408080 1 Tablet(s ) PO QD 02/05/2016 03/27/2017 Inactive levothyroxine 50 mcg tablet RxNorm: 481053 1 Tablet(s) PO QD 201507/22/2016 Inactive Toprol XL 25 mg tablet,extended release RxNorm: 524354 TAKE ONE TABLET BY MOUTH EVERY DAY 12/21/2015 06/14/2016 Inactive Generic For:TOPR OL XL 25MG TAB SA 12/21/2015 9:08:41 AM Protonix 40 mg tablet,delayed release RxNorm: 466285 1 Tablet(s ) PO QD 07/27/2015 01/22/2016 Inactive levothyroxine 50 mcg tablet RxNorm: 658408 1 Tablet(s) PO QD 201501/17/2016 Inactive Phenergan 25 mg rectal suppository RxNorm: 903636 1 Sup pository RTL Q4H as needed for nausea and vomiting 07/20/2015 12/08/2015 Inactive Toprol XL 25 mg tablet,extended release RxNorm: 154901 1 Tablet (s) PO QD 06/15/2015 12/11/2015 Inactive clotrimazole-betamethasone 1 %-0.05 % topical cream RxNorm: 301617 1 Application TOP BID to rash prn--was supposed to be cream not lotion 05/20/2015 Inactive Protonix 40 mg tablet,delayed release RxNorm: 899253 1 Tablet(s) 1 Tablet(s) PO QD 04/23/2015 07/27/2015 Inactive levothyroxine 50 mcg tablet RxNorm: 888953 1 Tablet(s) PO QD 201407/21/2015 Inactive Lidoderm 5 % (700 mg/patch) adhesive patch RxNorm: 6348251 1-2 Unit Dose TOP QD on for 12hrs then off for 12hrs 04/23/2015 03/27/2016 Inactive Miralax 17 gram oral powder packet RxNorm: 290112 1/2 U nit Dose PO every other day 03/24/2015 03/29/2015 Inactive levothyroxine 50 mcg tablet RxNorm: 532638 1 Tablet(s) PO QD 201404/19/2015 Inactive dicyclomine 10 mg capsule RxNorm: 172654 1 Capsule(s) P O TID as needed for abdominal pain 02/19/2015 04/25/2016 Inactive dicyclomine 10 mg capsule RxNorm: 410733 1 Capsule(s) P O TID as needed for abdominal pain 12/25/2014 02/18/2015 Inactive Protonix 40 mg tablet,delayed release RxNorm: 141380 1 Tablet(s ) PO BID 12/25/2014 03/04/2015 Inactive levothyroxine 50 mcg tablet RxNorm: 248063 1 Tablet(s) PO QD 201402/18/2015 Inactive Flonase 50 mcg/actuation nasal spray,suspension RxNorm: 8963 23 2 [place] NASAL QHS 12/25/2014 10/03/2018 Inactive [SAVINGS FOR NON -COVERED DRUGS -- BIN:[id number], PCN: ASPROD1, Group: XXXXX, ID# [id number], Questions: . THIS IS NOT INSURANCE.] Toprol XL 25 mg tablet,extended release RxNorm: 288151 1 Tablet (s) PO QD 12/01/2014 05/29/2015 Inactive dicyclomine 10 mg capsule RxNorm: 840709 1 Capsule(s) P O TID as needed for abdominal pain 12/01/2014 12/24/2014 Inactive levothyroxine 75 mcg tablet RxNorm: 363302 1 Tablet(s) PO QD 201412/24/2014 Inactive [AttnRPh: Saving apply/adjud icate RxGRP:SG20 RxBIN:[id number] RxPCN: ID#:[id number]] Protonix 40 mg tablet,delayed release RxNorm: 088990 1 Tablet(s) BID 1 Tablet(s) PO QD 11/04/2014 12/24/2014 Inactive dicyclomine 10 mg capsule RxNorm: 850831 1 Capsule(s) P O TID as needed for abdominal pain 11/04/2014 11/30/2014 Inactive Protonix 40 mg tablet,delayed release RxNorm: 219141 Ta blet(s) 1 Tablet(s) PO QD 10/14/2014 11/03/2014 Inactive Flonase 50 mcg/actuation nasal spray,suspension RxNorm: 8963 23 2 [place] NASAL QHS 09/01/2014 12/24/2014 Inactive [SAVINGS FOR NON -COVERED DRUGS -- BIN:281653, PCN: ASPROD1, Group: XXXXX, ID# [id number], Questions: . THIS IS NOT INSURANCE.] Toprol XL 25 mg tablet,extended release RxNorm: 747792 Tablet(s) 1/2 Tablet(s) PO QD 08/28/2014 11/25/2014 Inactive [SAVINGS FOR UNI NSURED PATIENTS -- BIN:403096, PCN: ASPROD1, Group: [id number], ID# [id number], Process claim through [employer], for questions: . THIS IS NOT INSURANCE.] estradiol 0.01% (0.1 mg/gram) vaginal cream RxNorm: 893777 1 Gram(s) VAG Insert vaginally at bedtime, Monday, Monday and Monday06/26/2014 5 Inactive Toprol XL 25 mg tablet,extended release RxNorm: 092079 1/2 Tabl et(s) PO QD 06/06/2014 08/27/2014 Inactive [SAVINGS FOR UNINSUR ED PATIENTS -- BIN:844980, PCN: ASPROD1, Group: [id number], ID# [id number], Process claim through [employer], for questions: . THIS IS NOT INSURANCE.] estradiol 0.5 mg tablet RxNorm: 005431 1 Tablet(s) VAG Place one tablet in the vagina at bedtime three times a week 06/02/2014 06/25/2014 Inactive Estring 2 mg vaginal RxNorm: 924037 VAG Insert vaginall y and remove after 90 days 05/27/2014 06/01/2014 Inactive Toprol XL 25 mg tablet,extended release RxNorm: 759059 1/2 Tabl et(s) PO QD 04/15/2014 04/14/2014 Inactive Protonix 40 mg tablet,delayed release RxNorm: 965565 1 Tablet(s ) PO QD 04/15/2014 10/14/2014 Inactive estradiol 0.5 mg tablet RxNorm: 319424 1 Tablet(s) VAG Place one tablet in the vagina at bedtime twice a week 04/15/2014 06/01/2014 Inactive Toprol XL 25 mg tablet,extended release RxNorm: 453262 1/2 Tabl et(s) PO QD 04/15/2014 06/05/2014 Inactive [SAVINGS FOR UNINSUR ED PATIENTS -- BIN:380100, PCN: ASPROD1, Group: [id number], ID# [id number], Process claim through [employer], for questions: . THIS IS NOT INSURANCE.] levothyroxine 75 mcg tablet RxNorm: 902924 1 Tablet(s) PO QD 201304/07/2014 Inactive [AttnRPh: Saving apply/adjud icate RxGRP:SG20 RxBIN:[id number] RxPCN:HT ID#:[id number]] Flonase 50 mcg/actuation nasal spray,suspension RxNorm: 8963 23 1 [place] NASAL BID 04/08/2014 08/31/2014 Inactive levothyroxine 75 mcg tablet RxNorm: 679717 1 Tablet(s) PO QD 201310/04/2014 Inactive [AttnRPh: Saving apply/adjud icate RxGRP:SG20 RxBIN:[id number] RxPCN:HT ID#:[id number]] estradiol 0.5 mg tablet RxNorm: 393313 Tablet(s) PO Debra ce one tablet in the vagina at bedtime one time weekly 04/08/2014 04/07/2014 Inactive levothyroxine 75 mcg tablet RxNorm: 342250 1 Tablet(s) PO QD 201304/07/2014 Inactive [AttnRPh: Saving apply/adjud icate RxGRP:SG20 RxBIN:[id number] RxPCN:HT ID#:[id number]] Skelaxin 800 mg tablet RxNorm: 899628 1 Tablet(s) PO TI D as needed for muscle spasm 03/05/2014 11/03/2014 Inactive alprazolam 0.25 mg tablet RxNorm: 691093 1 Tablet(s) PO Q8H as needed for anxiety 02/27/2014 08/05/2018 Inactive [AttnRPh: Saving apply/adjudicate RxGRP:SG20 RxBIN:[id number] RxPCN:HT ID#:[id number]] Synthroid 75 mcg tablet RxNorm: 912190 1 Tablet(s) PO QD 11/29/2013 0 11/03/2014 Inactive levothyroxine 75 mcg tablet RxNorm: 843207 1 Tablet(s) PO QD -N eed labs 11/27/2013 03/19/2014 Inactive [AttnRPh: Saving jessica ly/adjudicate RxGRP:SG20 RxBIN:[id number] RxPCN:HT ID#:[id number]] Protonix 40 mg tablet,delayed release RxNorm: 120766 1 Tablet(s ) PO QD 10/07/2013 04/04/2014 Inactive Synthroid 75 mcg tablet RxNorm: 432153 1 Tablet(s) PO QD 09/02/2013 0 11/28/2013 Inactive Zithromax 500 mg tablet RxNorm: 892814 1 Tablet(s) PO QD 07/29/2013 0 08/04/2013 Inactive prednisone 20 mg tablet RxNorm: 282488 1 Tablet(s) PO QD 07/29/2013 0 08/02/2013 Inactive Synthroid 75 mcg tablet RxNorm: 091476 1 Tablet(s) PO Q D Patient wants it put on hold 05/14/2013 09/02/2013 Inactive Synthroid 75 mcg tablet RxNorm: 783923 1 Tablet(s) PO QD 05/01/2013 1 07/14/2012 Inactive Flagyl 500 mg tablet RxNorm: 198837 1 Tablet(s) PO BID 03/20/2013 Inactive Cipro 500 mg tablet RxNorm: 576461 1 Tablet(s) PO QD 03/20/201304/02 Inactive levothyroxine 75 mcg tablet RxNorm: 829919 1 Tablet(s) PO QD 201205/03/2013 Inactive Septra DS 800 mg-160 mg tablet RxNorm: 209798 1 Tablet(s) PO BI D antibiotic 11/05/2012 11/09/2012 Inactive Bystolic 5 mg tablet RxNorm: 091610 1 Tablet(s) PO QD 10/10/201208/2018 Inactive Bystolic 5 mg tablet RxNorm: 164120 1 Tablet(s) PO QD 10/10/20120 02/2013 Inactive Protonix 40 mg tablet,delayed release RxNorm: 251317 1 Tablet(s ) PO QD 09/24/2012 09/18/2013 Inactive Synthroid 75 mcg tablet RxNorm: 862700 1 Tablet(s) PO QD 08/01/2012 0 09/23/2012 Inactive Synthroid 75 mcg tablet RxNorm: 046307 1 Tablet(s) PO QD Brand name only 07/03/2012 07/31/2012 Inactive Skelaxin 800 mg tablet RxNorm: 243962 1 Tablet(s) PO TID prn spasm 05/02/2012 03/04/2014 Inactive Zithromax Z-Leonel 250 mg tablet RxNorm: 199805 Tablet(s) PO As Di rected 04/12/2012 05/01/2012 Inactive levothyroxine 75 mcg tablet RxNorm: 214612 1 Tablet(s) PO QD 201108/05/2018 Inactive levothyroxine 75 mcg tablet RxNorm: 617944 1 Tablet(s) PO QD 201107/01/2012 Inactive Ultram 50 mg tablet RxNorm: 656175 1-2 Tablet(s) PO TID as need ed for migraine 04/03/2012 11/03/2014 Inactive Vimovo 500 mg-20 mg tablets,immediate & delayed release RxNo rm: 536973 1 Tablet(s) PO BID for pain 03/28/2012 07/25/2012 Inactive levothyroxine 75 mcg tablet RxNorm: 969487 1 Tablet(s) PO QD 201104/02/2012 Inactive levothyroxine 50 mcg tablet RxNorm: 765625 1 Tablet(s) PO QD 201109/23/2012 Inactive levothyroxine 50 mcg tablet RxNorm: 715995 1 Tablet(s) PO QD 201101/31/2012 Inactive Septra DS 800 mg-160 mg Tab RxNorm: 970352 1 Tablet(s) PO BID 11/2111/26/2011 Inactive mupirocin 2 % Ointment RxNorm: 668011 1 Application TOP TID 012 11/28/2011 Inactive Protonix 40 mg tablet,delayed release RxNorm: 974309 1 Tablet(s ) PO QD 09/13/2011 09/24/2012 Inactive hydrocodone-acetaminophen 5 mg-500 mg Tab RxNorm: 515994 1 Tablet(s) PO Q4-6H as needed for pain 07/13/2011 11/21/2011 Inactive Skelaxin 800 mg tablet RxNorm: 972770 1 Tablet(s) PO TID prn spasm 06/30/2011 11/21/2011 Inactive Skelaxin 800 mg Tab RxNorm: 833449 1 Tablet(s) PO TID prn spasm No Stop Date Active potassium chloride ER 10 mEq Cap RxNorm: 7532126 2 Capsule(s) PO QD 12/30/2010 01/30/2011 Inactive potassium chloride ER 10 mEq Cap RxNorm: 5770474 1 Capsule(s) PO QD 12/29/2010 12/29/2010 Inactive Take 2 tablets by mouth on M , Monday, Monday and 1 tablet by mouth on Monday, , Monday and Monday Premarin 0.9 mg Tab RxNorm: 539712 1 Tablet(s) PO QD 12/09/201001/07 Inactive potassium chloride ER 10 mEq Cap RxNorm: 9028980 1 Capsule(s) PO QD 12/07/2010 No Stop Date Active Take 2 tablets by mouth on M on, Monday, Monday and 1 tablet by mouth on Monday, , Monday and Monday promethazine 12.5 mg Rectal Suppository RxNorm: 476031 1 Applic ation RTL Q6-8H 12/07/2010 12/16/2010 Inactive prn nausea and vomit ing potassium chloride ER 10 mEq Cap RxNorm: 8847594 1 Capsule(s) PO QD 12/03/2010 No Stop Date Active MWF take 2 tablets daily. T nighat one tablet daily on other days. Protonix 40 mg Tab RxNorm: 342413 1 Tablet(s) PO QD 09/27/20102011 Inactive cefdinir 300 mg Cap RxNorm: 077106 2 Capsule(s) PO QD 08/05/201007/2010 Inactive cefdinir 300 mg Cap RxNorm: 686351 2 Capsule(s) PO QD 08/05/201008/03 Inactive Premarin 1.25 mg Tab RxNorm: 997987 1 Tablet(s) PO QD 06/14/201012/2010 Inactive lisinopril-hydrochlorothiazide 10 mg-12.5 mg Tab RxNorm: 881383 1 Tablet(s) PO 06/07/2010 11/04/2010 Inactive alprazolam 0.25 mg Tab RxNorm: 217485 1 Tablet(s) PO TI D written script provided to patient. 05/24/2010 06/22/2010 Inactive Treximet 85 mg-500 mg Tab RxNorm: 909696 1 Tablet(s) PO PRN 010 09/23/2012 Inactive lisinopril-hydrochlorothiazide 20 mg-12.5 mg Tab RxNorm: 197 886 1 Tablet(s) PO QD 05/12/2010 11/04/2010 Inactive alprazolam 0.25 mg Tab RxNorm: 570219 1 Tablet(s) PO TI D written script provided to patient. 04/19/2010 05/23/2010 Inactive Macrobid 100 mg Cap RxNorm: 6702284 1 Capsule(s) PO BID 04/08/2010 Inactive Premarin 1.25 mg Tab RxNorm: 666200 1 Tablet(s) PO QD 03/22/201002/2011 Inactive Amitriptyline 10 mg Tab RxNorm: 836358 1 Tablet(s) PO QD 03/22/2010 0 06/19/2010 Inactive Protonix 40 mg Tab RxNorm: 727221 1 Tablet(s) PO QD 03/22/20102010 Inactive alprazolam 0.25 mg Tab RxNorm: 061934 1 Tablet(s) PO TID 03/10/2010 1 06/08/2009 Inactive Macrobid 100 mg Cap RxNorm: 5363991 1 Capsule(s) PO QD 03/09/2010 Inactive Bystolic 5 mg Tab RxNorm: 324217 1 Tablet(s) PO QD Fi ll at 30 if insurance will not accept 03/01/2010 11/04/2010 Inactive Protonix 40 mg Tab RxNorm: 167776 1 Tablet(s) PO QD 11/23/20092009 Inactive Premarin 1.25 mg Tab RxNorm: 497757 1 Tablet(s) PO QD 11/23/200912/03 Inactive Bentyl 10 mg Cap RxNorm: 476522 1 Capsule(s) PO QID 11/23/20092010 Inactive Elavil 10 mg Tab RxNorm: 679452 1 Tablet(s) PO QPM 11/19/2009 011 Inactive Estrace 0.01% (0.1 mg/gram) vaginal cream RxNorm: 090169 1 Application VAG weekly No Start Date Active Protonix 40 mg tablet,delayed release RxNorm: 659950 1 Tablet(s ) PO QD No Start Date Active fluticasone propionate 50 mcg/actuation nasal spray,suspensi on RxNorm: 7141339 2 [place] NASAL QD No Start Date Active Vitamin D3 2,000 unit tablet RxNorm: 113766 1 Tablet(s) PO QD No t Date Active BIOFREEZE Top RxNorm: Topical No Start Date Active multivitamin chewable tablet RxNorm: 1 Tablet(s) PO QD No Start Date Active Estring 2 mg vaginal RxNorm: 723704 VAG Insert vaginall y and remove after 90 days No Start Date 05/26/2014 Inactive Premarin 0.625 mg tablet RxNorm: 330964 1 Tablet(s) PO QD No Start Date 04/07/2014 Inactive Miralax 17 gram/dose oral powder RxNorm: 604004 1 capful PO QD No S tart Date 08/05/2018 Inactive diazepam 5 mg tablet RxNorm: 037631 2 Tablet(s) PO before MRI No art Date 10/03/2018 Inactive Protonix 40 mg tablet,delayed release RxNorm: 022103 1 Tablet(s ) PO QD No Start Date 07/26/2015 Inactive B12 sublingual RxNorm: 76931 sublingual No Start Date 03/27/2017 Inact adrian Treximet 85 mg-500 mg Tab RxNorm: 906334 Tablet(s) PO PRN No Start Date 05/11/2010 Inactive Gemma 180 mg Tab RxNorm: 031558 1 Tablet(s) PO QD No Start Date Inactive Cranberry Concentrate capsule RxNorm: 1 Capsule(s) PO QD No art Date 07/02/2019 Inactive Gemma Allergy 180 mg tablet RxNorm: 469706 1 Tablet(s) PO QD No S tart Date 08/31/2014 Inactive estradiol 0.01% (0.1 mg/gram) vaginal cream RxNorm: 212110 1 Gram(s) VAG Insert vaginally at bedtime, Monday, Monday and Monday No Start Date 5 Inactive Tylenol Ex Str Arthritis Pain 500 mg tablet RxNorm: 905320 2 Ta blet(s) PO TID No Start Date 08/05/2018 Inactive Toprol XL 25 mg tablet,extended release RxNorm: 738895 1 Tablet (s) PO QD No Start Date 11/30/2014 Inactive Ultram 50 mg tablet RxNorm: 713330 1-2 Tablet(s) PO TID as need ed for migraine No Start Date 04/02/2012 Inactive Premarin 0.9 mg Tab RxNorm: 602697 1 Tablet(s) PO QD No Start Date Inactive Xyzal 5 mg tablet RxNorm: 640605 1 Tablet(s) PO QD No Start Date 06/06 Inactive Bystolic 5 mg Tab RxNorm: 253181 1/2 Tablet(s) PO QD No Start Date Inactive Ondansetron HCl 4 mg Tab RxNorm: 548368 1 Tablet(s) PO TID or every 8hrs as needed for nausea No Start Date 11/21/2011 Inactive Protonix 40 mg tablet,delayed release RxNorm: 313867 1 Tablet(s ) PO BID No Start Date 12/24/2014 Inactive potassium chloride ER 10 mEq Cap RxNorm: 6759788 1 Capsule(s) PO QD No Start Date 12/02/2010 Inactive Miralax 17 gram/dose oral powder RxNorm: 470382 1 capful PO QD No S tart Date 03/29/2015 Inactive levothyroxine 75 mcg tablet RxNorm: 872999 1 Tablet(s) PO QD si x days a week No Start Date 12/24/2014 Inactive Cenestin 1.25 mg Tab RxNorm: 294746 1 Tablet(s) PO QD No Start Date 0 01/03/2010 Inactive calcium-vitamin D3 500 mg oral wafer RxNorm: 1 Tablet(s) PO QD No Start Date 12/08/2015 Inactive Vimovo 500 mg-20 mg tablet,immediate & delayed release RxNor m: 291716 1 Tablet(s) PO QD No Start Date 11/03/2014 Inactive alprazolam 0.25 mg tablet RxNorm: 272295 1 Tablet(s) PO Q8H as needed for anxiety/stress No Start Date 12/24/2014 Inactive levothyroxine 50 mcg tablet RxNorm: 821234 1 Tablet(s) PO QD No Sta rt Date 06/23/2019 Inactive betamethasone dipropionate 0.05 % topical cream RxNorm: 2389 20 1 Application TOP QHS No Start Date 03/27/2017 Inactive meloxicam 15 mg tablet RxNorm: 748831 1 Tablet(s) PO QD as needed N o Start Date 04/11/2019 Inactive cetirizine 10 mg capsule RxNorm: 0337255 1 Capsule(s) PO QD No Star t Date 09/10/2017 Inactive Skelaxin 800 mg Tab RxNorm: 154930 Tablet(s) PO PRN No Start Date Inactive Zithromax Z-Leonel 250 mg tablet RxNorm: 042718 Tablet(s) PO As Di rected No Start Date 04/11/2012 Inactive Zithromax Z-Leonel 250 mg Tab RxNorm: 085230 Tablet(s) PO as direc sheridan No Start Date 11/15/2010 Inactive Gemma 180 mg tablet RxNorm: 750911 1 Tablet(s) PO QD No Start Date 12/24/2014 Inactive Anusol-HC 2.5 % Rectal Cream RxNorm: 180012 Application RTL BID for 1wk No Start Date 12/19/2011 Inactive metoprolol succinate ER 25 mg 24 hr Tab RxNorm: 876196 1/2 Tabl et(s) PO QD No Start Date 10/03/2012 Inactive clotrimazole-betamethasone 1 %-0.05 % Lotion RxNorm: 990522 Application TOP BID to rash No Start Date 05/15/2011 Inactive ranitidine 150 mg tablet RxNorm: 307565 1 Tablet(s) PO QD No Start Date 12/06/2018 Inactive ranitidine 150 mg tablet RxNorm: 105310 1 Tablet(s) PO BID No Start Date 11/10/2016 Inactive promethazine 12.5 mg Rectal Suppository RxNorm: 692343 1 Applic ation RTL Q6-8H No Start Date 12/06/2010 Inactive Maxalt-[employer] 10 mg disintegrating tablet RxNorm: 964616 1 Tablet(s) PO at headache onset--may repeat in 2hrs if needed No Start Date 12/24/2014 Inactive Benadryl 25 mg capsule RxNorm: 7382536 Capsule(s) PO as needed No S tart Date 12/24/2014 Inactive Cranberry Concentrate 500 mg capsule RxNorm: 516546 1 Capsule(s ) PO QD No Start Date 09/10/2017 Inactive Mobic 15 mg tablet RxNorm: 533284 1 Tablet(s) PO on opposite da ys of Aleve No Start Date 11/20/2018 Inactive Bystolic 5 mg tablet RxNorm: 877454 1 Tablet(s) PO QD No Start Date 0 10/09/2012 Inactive Premarin 1.25 mg Tab RxNorm: 988268 1 Tablet(s) PO QD No Start Date 1 Inactive clotrimazole-betamethasone 1 %-0.05 % topical cream RxNorm: 473839 Application TOP BID to rash prn--was supposed to be cream not lotion No Start Date 12/19/2011 Inactive azithromycin 250 mg Tab RxNorm: 503524 2 Tablet(s) PO Q D take 2 tablets (500 mg) by oral route once daily for 1 day then 1 tablet (250 mg) by oral route once daily for 4 days No Start Date 06/06/2010 Inactive hydrocodone-acetaminophen 5 mg-500 mg Tab RxNorm: 525576 1 Tablet(s) PO Q4-6H as needed for pain No Start Date 07/12/2011 Inactive Levbid 0.375 mg 12 hr Tab RxNorm: 5333967 1 Tablet(s) PO BID as needed for stomach cramping No Start Date 11/21/2011 Inactive Phenergan 25 mg rectal suppository RxNorm: 729563 1 Sup pository RTL Q4H as needed for nausea and vomiting No Start Date 07/19/2015 Inactive baclofen 10 mg tablet RxNorm: 627186 1 Tablet(s) PO QHS No Start Da te 11/03/2014 Inactive loratadine 10 mg tablet RxNorm: 206318 1 Tablet(s) PO QD No Start D ate 10/03/2018 Inactive famotidine 40 mg tablet RxNorm: 799408 1 Tablet(s) PO BID No Start Date 06/22/2016 Inactive Zithromax Z-Leonel 250 mg Tab RxNorm: 323663 Tablet(s) PO as direc sheridan No Start Date 11/15/2010 Inactive Singulair 10 mg tablet RxNorm: 278403 1 Tablet(s) PO QHS No Start D ate 07/10/2017 Inactive Premarin 0.625 mg/g Vaginal Cream RxNorm: 897680 1 Gram (s) VAG QHS 2-3 times weekly No Start Date 01/05/2011 Inactive Alprazolam 0.25 mg Tab RxNorm: 651368 1 Tablet(s) PO TID No Start D ate 03/09/2010 Inactive Claritin 10 mg tablet RxNorm: 581647 1 Tablet(s) PO QD No Start Date [...] Result Date S vic Location GFR CALC 6748016 GFR AA >60 ML/MIN 01/14/2011 Unknown GFR CALC 6351574 GFR NON-AA >60 ML/MIN 01/14/2011 Unknown COMPREHENSIVE METABOLIC 74975 AST 15 U/L 2010 Unknown COMPREHENSIVE METABOLIC 33338 ALT 17 IU/L 2010 Unknown COMPREHENSIVE METABOLIC 71159 BUN 12 MG/DL 2010 Unknown COMPREHENSIVE METABOLIC 43815 ALBUMIN 4.0 GM/DL 2010 Unknown COMPREHENSIVE METABOLIC 87686 CHLORIDE 101 MMOL/L 01/14 Unknown COMPREHENSIVE METABOLIC 75896 BILI TOT 0.3 MG/DL 2010 Unknown COMPREHENSIVE METABOLIC 38104 ALK PHOS 53 U/L 2010 Unknown COMPREHENSIVE METABOLIC 51281 SODIUM 136 MMOL/L 01/14 Unknown COMPREHENSIVE METABOLIC 63217 CREATININE 0.60 MG/DL 01/03 Unknown COMPREHENSIVE METABOLIC 07594 CALCIUM 9.3 MG/DL 2010 Unknown COMPREHENSIVE METABOLIC 15763 POTASSIUM 4.1 MMOL/L 01/14 Unknown COMPREHENSIVE METABOLIC 78200 PROT TOT 7.0 GM/DL 2010 Unknown COMPREHENSIVE METABOLIC 83300 Glucose 92 MG/DL 2010 Unknown COMPREHENSIVE METABOLIC 71349 BICARB 27 MMOL/L 2010 Unknown COMPREHENSIVE METABOLIC 38491 ANION GAP 8 MEQ/L 2010 Unknown ERYTHROCYTE SEDIMENTATION RATE 34557 ESR 39 MM/HR 01/05/2011 Unknown COMPREHENSIVE METABOLIC 18988 AST 16 U/L 2010 Unknown COMPREHENSIVE METABOLIC 48045 ALT 19 U/L 2010 Unknown COMPREHENSIVE METABOLIC 92030 BUN 15 MG/DL 2010 Unknown COMPREHENSIVE METABOLIC 83140 ALBUMIN 3.8 GM/DL 2010 Unknown COMPREHENSIVE METABOLIC 04539 CHLORIDE 101 MMOL/L 01/05 Unknown COMPREHENSIVE METABOLIC 69382 BILI TOT 0.3 MG/DL 2010 Unknown COMPREHENSIVE METABOLIC 36728 ALK PHOS 55 U/L 2010 Unknown COMPREHENSIVE METABOLIC 45909 SODIUM 139 MMOL/L 01/05 Unknown COMPREHENSIVE METABOLIC 93115 CREATININE 0.59 MG/DL 08/2010 Unknown COMPREHENSIVE METABOLIC 48279 CALCIUM 8.9 MG/DL 2010 Unknown COMPREHENSIVE METABOLIC 21988 POTASSIUM 3.8 MMOL/L 01/05 Unknown COMPREHENSIVE METABOLIC 67094 PROT TOT 6.7 GM/DL 2010 Unknown COMPREHENSIVE METABOLIC 53367 Glucose 121 MG/DL 2010 Unknown COMPREHENSIVE METABOLIC 68496 BICARB 28 MMOL/L 2010 Unknown COMPREHENSIVE METABOLIC 26604 ANION GAP 10 MMOL/L 2010 Unknown GFR CALC 9036859 GFR AA >60 ML/MIN 01/05/2011 Unknown GFR CALC 9005827 GFR NON-AA >60 ML/MIN 01/05/2011 Unknown COMPLETE BLOOD COUNT 09676 WBC 8.7 10e9/L 01/06/20 11 Unknown COMPLETE BLOOD COUNT 41414 RBC 4.78 10e12/L 2010 Unknown COMPLETE BLOOD COUNT 50155 HGB 13.3 g/dL 1 Unknown COMPLETE BLOOD COUNT 00256 HCT DET 40.6 % 1 Unknown COMPLETE BLOOD COUNT 00307 MCV 84.9 fL 1 Unknown COMPLETE BLOOD COUNT 19885 MCH 27.8 pg 1 Unknown COMPLETE BLOOD COUNT 13526 MCHC 32.8 g/dL 1 Unknown COMPLETE BLOOD COUNT 94519 PLT 273 10e9/L 01/06/20 11 Unknown COMPLETE BLOOD COUNT 23562 MPV 9.8 fL 1 Unknown COMPLETE BLOOD COUNT 90654 AMANDA % 65.9 % 1 Unknown COMPLETE BLOOD COUNT 88712 LY % 24.5 % 1 Unknown COMPLETE BLOOD COUNT 13601 MON % 6.9 % 1 Unknown COMPLETE BLOOD COUNT 65551 EOS % 2.1 % 1 Unknown COMPLETE BLOOD COUNT 56522 BASO % 0.6 % 1 Unknown COMPLETE BLOOD COUNT 68554 RDW 14.7 % 1 Unknown COMPLETE BLOOD COUNT 02887 ABS AMANDA 5.73 10e9/L 011 Unknown COMPLETE BLOOD COUNT 21742 ABS LYMPH 2.13 10e9/L 011 Unknown COMPLETE BLOOD COUNT 68900 ABS MONO 0.60 10e9/L 011 Unknown COMPLETE BLOOD COUNT 65313 ABS EOS 0.18 10e9/L 011 Unknown COMPLETE BLOOD COUNT 06519 ABS BASO 0.05 10e9/L 011 Unknown COMPLETE BLOOD COUNT 38211 RDW-SD 44.7 fL 1 Unknown NO UA [id number] NO UA CANCELED 07/08/2010 Unknown Procedures Procedure Codes Date PNEUMOCOCCAL VACC 13 JACKY IM CPT-4: 39329 07/03/2019 ADMIN PNEUMOCOCCAL VACCINE CPT-4: G0009 07/03/2019 URINALYSIS NONAUTO W/O SCOPE CPT-4: 78079 04/12/2019 URINE CULTURE/ COLONY COUNT CPT-4: 85741 04/12/2019 URINE CULTURE/ COLONY COUNT CPT-4: 55208 01/14/2019 URINALYSIS NONAUTO W/O SCOPE CPT-4: 70770 01/14/2019 INITIAL PREVENTIVE EXAM CPT-4: G0402 11/21/2018 URINALYSIS NONAUTO W/O SCOPE CPT-4: 89788 11/01/2018 URINE CULTURE/ COLONY COUNT CPT-4: 34939 11/01/2018 URINE CULTURE/ COLONY COUNT CPT-4: 05674 06/13/2018 URINALYSIS NONAUTO W/O SCOPE CPT-4: 43031 05/31/2018 URINE CULTURE/ COLONY COUNT CPT-4: 82928 05/31/2018 IIV4 VACCINE 3 YRS+ IM AND UP CPT-4: 88691 03/22/2018 IMMUNIZATION ADMIN CPT-4: 06011 03/22/2018 TDAP VACCINE 7 YRS/> IM CPT-4: 22817 12/28/2017 IMMUNIZATION ADMIN CPT-4: 23466 12/28/2017 SHINGRIX HZV VACC RECOMBINANT IM CPT-4: 01746 018 IMMUNIZATION ADMIN CPT-4: 49408 10/04/2017 IIV4 VACCINE 3 YRS+ IM AND UP CPT-4: 72513 03/28/2017 IMMUNIZATION ADMIN CPT-4: 64122 03/28/2017 INFLUENZA ASSAY W/OPTIC CPT-4: 95553 09/12/2016 FLU VACCINE 3 YRS & > IM UP 64 CPT-4: 41635 6 IMMUNIZATION ADMIN CPT-4: 28551 04/22/2016 OCCULT BLOOD FECES CPT-4: 68802 01/04/2016 THER/PROPH/DIAG INJ SC/IM CPT-4: 38796 07/20/2015 PROMETHAZINE HCL INJECTION CPT-4: J2550 07/20/2015 FLU VACCINE 3 YRS & > IM UP 64 CPT-4: 97781 5 IMMUNIZATION ADMIN CPT-4: 72392 03/09/2015 URINALYSIS NONAUTO W/O SCOPE CPT-4: 65297 07/10/2014 URINE CULTURE/ COLONY COUNT CPT-4: 75180 07/10/2014 URINE CULTURE/ COLONY COUNT CPT-4: 27697 07/14/2011 URINALYSIS NONAUTO W/O SCOPE CPT-4: 37724 07/14/2011 FLU VACCINE 3 YRS & > IM UP 64 CPT-4: 53989 2 IMMUNIZATION ADMIN CPT-4: 41665 06/28/2011 URINALYSIS NONAUTO W/O SCOPE CPT-4: 10142 03/23/2011 URINE CULTURE/ COLONY COUNT CPT-4: 39593 03/23/2011 ROUTINE VENIPUNCTURE CPT-4: 69580 01/14/2011 COMPREHEN METABOLIC PANEL CPT-4: 42201 01/14/2011 ROUTINE VENIPUNCTURE CPT-4: 66549 01/05/2011 COMPLETE CBC W/AUTO DIFF WBC CPT-4: 40221 01/05/2011 RBC SED RATE AUTOMATED CPT-4: 43724 01/05/2011 COMPREHEN METABOLIC PANEL CPT-4: 66125 01/05/2011 URINALYSIS NONAUTO W/O SCOPE CPT-4: 58918 11/16/2010 URINE CULTURE/ COLONY COUNT CPT-4: 54506 11/16/2010 DRAIN/INJECT JOINT/BURSA CPT-4: 89755 11/04/2010 TRIAMCINOLONE ACET INJ NOS CPT-4: J3301 11/04/2010 METHYLPREDNISOLONE 80 MG INJ CPT-4: J1040 11/04/2010 URINALYSIS NONAUTO W/O SCOPE CPT-4: 79742 07/05/2010 URINE CULTURE/ COLONY COUNT CPT-4: 45784 07/05/2010 URINALYSIS NONAUTO W/O SCOPE CPT-4: 35569 06/28/2010 URINE CULTURE/ COLONY COUNT CPT-4: 22681 06/28/2010 URINALYSIS NONAUTO W/O SCOPE CPT-4: 79082 06/14/2010 URINE CULTURE/ COLONY COUNT CPT-4: 83200 06/14/2010 URINE CULTURE/ COLONY COUNT CPT-4: 17031 04/19/2010 OCCULT BLOOD FECES CPT-4: 66320 04/12/2010 URINALYSIS NONAUTO W/O SCOPE CPT-4: 48458 04/08/2010 URINE CULTURE/ COLONY COUNT CPT-4: 40124 04/08/2010 ASSAY, GLUCOSE, BLOOD QUANT CPT-4: 23413 03/09/2010 URINALYSIS NONAUTO W/O SCOPE CPT-4: 80402 03/09/2010 FLU VACCINE 3 YRS & > IM UP 64 CPT-4: 20064 0 IMMUNIZATION ADMIN CPT-4: 73456 03/09/2010 URINALYSIS NONAUTO W/O SCOPE CPT-4: 60893 09/29/2009 URINALYSIS NONAUTO W/O SCOPE CPT-4: 67368 08/12/2009 Vital Signs Date Vital 07/03/2019 Blood [...] 1: 130/70 Code: 8480-6 BMI: 29.6 Code: 78542-7 Heart Rate 1: 76 bpm Height: 5'2" [...] 1: 126/62 Code: 8480-6 BMI: 29.6 Code: 41005-0 Heart Rate 1: 88 bpm Height: 5'3" Respiratory Rate: 20 bpm Temperature: 36 .8 (C) / 98.3 (F) Weight: 167 lbs 05/31/2018 Blood Pressure 1: 140/80 Code: 8480-6 Heart Rate 1: 74 bpm Respiratory Rate: 16 bpm SpO2: 97% Temperature: 36.3 (C) / 97.3 (F) We ight: 165 lbs 02/06/2018 Blood Pressure 1: 124/78 Code: 8480-6 BMI: 29.8 Code: 49929-0 Heart Rate 1: 84 bpm Height: 5'3" Respiratory Rate: 20 bpm SpO2: 97% Tempera ture: 36.6 (C) / 97.8 (F) Weight: 168 lbs 12/18/2017 Blood Pressure 1: 116/78 Code: 8480-6 BMI: 29.6 Code: 92512-7 Heart Rate 1: 88 bpm Height: 5'3" Respiratory Rate: 20 bpm Temperature: 36 .6 (C) / 97.9 (F) Weight: 167 lbs 12/11/2017 Blood Pressure 1: 122/76 Code: 8480-6 He art Rate 1: 78 bpm 09/11/2017 Blood Pressure 1: 126/82 Code: 8480-6 BMI: 29.1 Code: 50278-6 Heart Rate 1: 68 bpm Height: 5'3" Respiratory Rate: 20 bpm SpO2: 96% Tempera ture: 36.6 (C) / 97.9 (F) Weight: 164 lbs 03/28/2017 Blood Pressure 1: 114/64 Code: 8480-6 BMI: 27.8 Code: 00713-4 Heart Rate 1: 76 bpm Height: 5'3" Respiratory Rate: 20 bpm SpO2: 98% Tempera ture: 36.4 (C) / 97.6 (F) Weight: 157 lbs 09/12/2016 Blood Pressure 1: 126/70 Code: 8480-6 BMI: 29.9 Code: 27452-8 Heart Rate 1: 92 bpm Height: 5'3" Respiratory Rate: 20 bpm SpO2: 97% Tempera ture: 37.0 (C) / 98.6 (F) Weight: 168 lbs 9 oz 07/28/2016 Blood Pressure 1: 128/74 Code: 8480-6 Heart Rate 1: 92 bpm Respiratory Rate: 24 bpm SpO2: 96% Temperature: 36.4 (C) / 97.6 (F) We ight: 168 lbs 04/26/2016 Blood Pressure 1: 116/74 Code: 8480-6 BMI: 29.9 Code: 99191-6 Heart Rate 1: 92 bpm Height: 5'3" Respiratory Rate: 20 bpm Temperature: 36 .9 (C) / 98.4 (F) Weight: 169 lbs 12/09/2015 Blood Pressure 1: 116/72 Code: 8480-6 BMI: 31.7 Code: 39989-8 Heart Rate 1: 80 bpm Height: 5'3" Respiratory Rate: 20 bpm Temperature: 36 .6 (C) / 97.9 (F) Weight: 179 lbs 09/10/2015 Blood Pressure 1: 122/78 Code: 8480-6 BMI: 32.2 Code: 86277-9 Heart Rate 1: 88 bpm Height: 5'3" Respiratory Rate: 20 bpm Temperature: 37 .3 (C) / 99.1 (F) Weight: 182 lbs 04/23/2015 Blood Pressure 1: 126/70 Code: 8480-6 BMI: 31.2 Code: 34998-3 Heart Rate 1: 92 bpm Height: 5'3" Respiratory Rate: 20 bpm Temperature: 36 .8 (C) / 98.2 (F) Weight: 176 lbs 03/24/2015 Blood Pressure 1: 126/78 Code: 8480-6 BMI: 31.2 Code: 59255-3 Heart Rate 1: 80 bpm Height: 5'3" Respiratory Rate: 22 bpm Temperature: 36 .1 (C) / 96.9 (F) Weight: 176 lbs 03/05/2015 Blood Pressure 1: 132/80 Code: 8480-6 BMI: 31.5 Code: 77303-1 Heart Rate 1: 92 bpm Height: 5'2" Respiratory Rate: 20 bpm Temperature: 36 .4 (C) / 97.6 (F) Weight: 175 lbs 02/19/2015 Blood Pressure 1: 134/80 Code: 8480-6 BMI: 31.5 Code: 09460-9 Heart Rate 1: 88 bpm Height: 5'2" Respiratory Rate: 20 bpm Temperature: 36 .7 (C) / 98.0 (F) Weight: 175 lbs 12/25/2014 Blood Pressure 1: 122/80 Code: 8480-6 BMI: 31.0 Code: 48930-9 Heart Rate 1: 88 bpm Height: 5'2" Respiratory Rate: 20 bpm Temperature: 36 .6 (C) / 97.8 (F) Weight: 172 lbs 11/26/2014 Blood Pressure 1: 116/68 Code: 8480-6 BMI: 30.2 Code: 88262-5 Heart Rate 1: 76 bpm Height: 5'2" Respiratory Rate: 20 bpm Temperature: 36 .5 (C) / 97.7 (F) Weight: 168 lbs 11/04/2014 Blood Pressure 1: 116/64 Code: 8480-6 BMI: 30.8 Code: 87857-8 Heart Rate 1: 92 bpm Height: 5'2" Respiratory Rate: 20 bpm Temperature: 36 .7 (C) / 98.1 (F) Weight: 171 lbs 09/01/2014 Blood Pressure 1: 130/82 Code: 8480-6 BMI: 30.6 Code: 18920-0 Heart Rate 1: 92 bpm Height: 5'2" Respiratory Rate: 20 bpm Temperature: 36 .9 (C) / 98.4 (F) Weight: 170 lbs 06/02/2014 Blood Pressure 1: 126/80 Code: 8480-6 BMI: 30.2 Code: 27440-6 Heart Rate 1: 88 bpm Height: 5'2" Respiratory Rate: 20 bpm Temperature: 36 .7 (C) / 98.1 (F) Weight: 168 lbs 05/26/2014 Blood Pressure 1: 132/78 Code: 8480-6 He art Rate 1: 74 bpm 04/08/2014 Blood Pressure 1: 156/94 Code: 8480-6 BMI: 30.2 Code: 25694-2 Heart Rate 1: 96 bpm Height: 5'2" Respiratory Rate: 20 bpm Temperature: 37 .1 (C) / 98.7 (F) Weight: 168 lbs 03/05/2014 Blood Pressure 1: 144/86 Code: 8480-6 BMI: 29.9 Code: 87958-6 Heart Rate 1: 100 bpm Height: 5'2" Respiratory Rate: 20 bpm Temperature: 36 .7 (C) / 98.1 (F) Weight: 166 lbs 07/29/2013 Blood Pressure 1: 124/80 Code: 8480-6 Heart Rate 1: 92 bpm Respiratory Rate: 20 bpm Temperature: 36.2 (C) / 97.2 (F) Weight: 167 lbs 03/20/2013 Blood Pressure 1: 116/84 Code: 8480-6 BMI: 30.8 Code: 37104-5 Heart Rate 1: 96 bpm Height: 5'3" Respiratory Rate: 20 bpm Temperature: 36 .6 (C) / 97.8 (F) Weight: 174 lbs 02/12/2013 Blood Pressure 1: 122/80 Code: 8480-6 BMI: 30.5 Code: 99727-9 Heart Rate 1: 112 bpm Height: 5'3" Respiratory Rate: 20 bpm Temperature: 36 .9 (C) / 98.4 (F) Weight: 172 lbs 11/05/2012 BMI: 31.2 Code: 80714-8 Height: 5'3" Weight: 176 lbs 10/04/2012 Heart Rate 1: 84 bpm Height: 5'3" Respiratory Rate: 20 bpm Temperature: 36.8 (C) / 98.3 (F) Weight: 09/24/2012 Blood Pressure 1: 122/88 Code: 8480-6 BMI: 30.8 Code: 31979-6 Heart Rate 1: 80 bpm Height: 5'3" Respiratory Rate: 20 bpm Temperature: 36 .8 (C) / 98.2 (F) Weight: 174 lbs 05/10/2012 Blood Pressure 1: 124/68 Code: 8480-6 BMI: 30.1 Code: 26312-1 Heart Rate 1: 64 bpm Height: 5'3" Temperature: 36.6 (C) / 97.8 (F) Weight: 170 lbs 03/07/2012 Blood Pressure 1: 132/78 Code: 8480-6 BMI: 29.2 Code: 51858-1 Heart Rate 1: 92 bpm Height: 5'3" Respiratory Rate: 20 bpm Temperature: 36 .7 (C) / 98.1 (F) Weight: 165 lbs 02/01/2012 Blood Pressure 1: 116/78 Code: 8480-6 BMI: 29.1 Code: 57433-9 Heart Rate 1: 84 bpm Height: 5'3" Respiratory Rate: 20 bpm Temperature: 36 .8 (C) / 98.2 (F) Weight: 164 lbs 12/20/2011 Blood Pressure 1: 128/80 Code: 8480-6 BMI: 29.1 Code: 57443-9 Heart Rate 1: 88 bpm Height: 5'3" Respiratory Rate: 20 bpm Temperature: 36 .4 (C) / 97.6 (F) Weight: 164 lbs 11/22/2011 Blood Pressure 1: 104/60 Code: 8480-6 BMI: 28.5 Code: 45860-1 Heart Rate 1: 78 bpm Height: 5'3" Temperature: 36.6 (C) / 97.9 (F) Weight: 161 lbs 07/11/2011 Blood Pressure 1: 118/72 Code: 8480-6 BMI: 30.6 Code: 73247-2 Heart Rate 1: 92 bpm Height: 5'3" Respiratory Rate: 20 bpm Temperature: 36 .8 (C) / 98.2 (F) Weight: 173 lbs 07/06/2011 Blood Pressure 1: 126/80 Code: 8480-6 BMI: 31.0 Code: 96737-2 Heart Rate 1: 88 bpm Height: 5'3" Respiratory Rate: 20 bpm Temperature: 36 .7 (C) / 98.1 (F) Weight: 175 lbs 05/26/2011 Blood Pressure 1: 100/78 Code: 8480-6 BMI: 31.0 Code: 41026-7 Heart Rate 1: 74 bpm Height: 5'3" Temperature: 36.4 (C) / 97.6 (F) Weight: 175 lbs 05/16/2011 Blood Pressure 1: 116/80 Code: 8480-6 BMI: 31.0 Code: 20555-5 Heart Rate 1: 88 bpm Height: 5'3" Respiratory Rate: 20 bpm Temperature: 36 .8 (C) / 98.2 (F) Weight: 175 lbs 05/05/2011 Blood Pressure 1: 126/80 Code: 8480-6 BMI: 30.6 Code: 17016-1 Heart Rate 1: 96 bpm Height: 5'3" Respiratory Rate: 20 bpm Temperature: 36 .4 (C) / 97.6 (F) Weight: 173 lbs 04/05/2011 Blood Pressure 1: 144/90 Code: 8480-6 BMI: 30.1 Code: 01438-4 Heart Rate 1: 92 bpm Height: 5'3" Respiratory Rate: 20 bpm Temperature: 36 .6 (C) / 97.8 (F) Weight: 170 lbs 03/02/2011 Blood Pressure 1: 136/94 Code: 8480-6 Heart Rate 1: 92 bpm Temperature: 36.6 (C) / 97.8 (F) Weight: 171 lbs 01/05/2011 Blood Pressure 1: 132/86 Code: 8480-6 BMI: 30.6 Code: 69387-2 Heart Rate 1: 98 bpm Height: 5'3" [...] 1: 122/68 Code: 8480-6 BMI: 29.8 Code: 91235-1 Height: 5'3" Temperature: 36.3 (C) / 97.4 [...] 1: 142/90 Code: 8480-6 BMI: 30.5 Code: 00573-3 Heart Rate 1: 96 bpm Height: 5'3" [...] Rendon would like to proceed with heart pathology laboratory aide draw 01/14/2011 shortness of breath 01/05/2011 urinary [...] 11/23/2009 Encounters Encounter Performer Location Codes Date ([id number]) OFFICE/OUTPATIENT VISIT EST Diagnosis: Hyperglycemia, unspecified[ICD10: R73.9] Diagnosis: Hypothyroidism[ICD10: E03.9] Diagnosis: Asthma[ICD10: J45.909] Diagnosis: Hilar lymphadenopathy[ICD10: R59.0] Diagnosis: PNEUMOCOCCAL VACCINE[ICD10: Z23] Yaima JOHNSON [facility] CPT-4: 46732 07/03/2019 ([id number]) OFFICE/OUTPATIENT VISIT EST Diagnosis: Low back pain[ICD10: M54.5] Jane WOO DO [facility] CPT-4: 57131 04/12/2019 ([id number]) OFFICE/OUTPATIENT VISIT EST Diagnosis: Pain in thoracic spine[ICD10: M54.6] Diagnosis: Muscle spasm of back[ICD10: M62.830] Yaima JOHNSON [facility] CPT-4: 80991 01/16/2019 ([id number]) NURSE/OUTPATIENT VISIT EST Diagnosis: Low back pain[ICD10: M54.5] Diagnosis: Hematuria, unspecified[ICD10: R31.9] Yaima JOHNSON [facility] CPT-4: 68276 01/14/2019 ([id number]) OFFICE/OUTPATIENT VISIT EST Diagnosis: Left lower quadrant pain[ICD10: R10.32] Yaima JOHNSON [facility] CPT-4: 94748 01/09/2019 ([id number]) NURSE/OUTPATIENT VISIT EST Diagnosis: Hematuria, unspecified[ICD10: R31.9] Yaima JOHNSON [facility] CPT-4: 79610 11/01/2018 ([id number]) OFFICE/OUTPATIENT VISIT EST Diagnosis: Hypothyroidism, unspecified[ICD10: E03.9] Diagnosis: Other fatigue[ICD10: R53.83] Diagnosis: Other cervical disc degeneration, unspecified cervical region[ICD10: M50.30] Yaima JOHNSON [facility] CPT-4: 34437 10/04/2018 ([id number]) OFFICE/OUTPATIENT VISIT EST Diagnosis: Hypothyroidism, unspecified[ICD10: E03.9] Diagnosis: Impaired fasting glucose[ICD10: R73.01] Diagnosis: Cervicalgia[ICD10: M54.2] Yaima SALAS NDER [facility] CPT-4: 37213 08/06/2018 ([id number]) OFFICE/OUTPATIENT VISIT EST Diagnosis: Radiculopathy, lumbosacral region[ICD10: M54.17] Diagnosis: Abrasion, left lower leg, sequela[ICD10: S80.812S] Yaima JOHNSON DO [facility] CPT-4: 81368 06/21/2018 ([id number]) NURSE/OUTPATIENT VISIT EST Diagnosis: Urinary tract infection, site not specified[ICD10: N39.0] Yaima MCCORMACKLINE BreonnaRobin [facility] CPT-4: 46483 06/13/2018 ([id number]) OFFICE/OUTPATIENT VISIT EST Diagnosis: Other dorsalgia[ICD10: M54.89] Jane JOHNSON [facility] CPT-4: 09741 05/31/2018 ([id number]) NURSE/OUTPATIENT VISIT EST Diagnosis: FLU VACCINE[ICD10: Z23] Yaima MCCORMACKLINE Jw [facility] CPT-4: 98761 03/22/2018 ([id number]) OFFICE/OUTPATIENT VISIT EST Diagnosis: Hypothyroidism, unspecified[ICD10: E03.9] Diagnosis: Essential (primary) hypertension[ICD10: I10] Diagnosis: Other seasonal allergic rhinitis[ICD10: J30.2] Yaima JOHNSON [facility] CPT-4: 65952 02/06/2018 ([id number]) NURSE/OUTPATIENT VISIT EST Diagnosis: Laceration of blood vessel of right index finger, initial encounter[ICD10: S65.510A] Diagnosis: VACCINE FOR TDAP[ICD10: Z23] Yaima Elizabeth MCCORMACKLINE Jw JOHNSON [facility] CPT-4: 94238 12/28/2017 ([id number]) OFFICE/OUTPATIENT VISIT EST Diagnosis: Tinnitus, bilateral[ICD10: H93.13] Yaima Josueyvesvalorie FEROZ SANDERS [facility] CPT-4: 34267 12/18/2017 ([id number]) NURSE/OUTPATIENT VISIT EST Diagnosis: VACCIN FOR DISEASE NEC (HPV or Zostavax)[ICD10: Z23] Yaima Josuesara SAMUELS BreonnaRobin [facility] CPT-4: 78509 10/04/2017 OFFICE/OUTPATIENT VISIT EST Diagnosis: Hypothyroidism, unspecified[ICD10: E03.9] Diagnosis: Essential (primary) hypertension[ICD10: I10] Diagnosis: Gastro-esophageal reflux disease without esophagitis[ICD10: K21.9] Diagnosis: Pain in right knee[ICD10: M25.561] Diagnosis: Hyperglycemia, unspecified[ICD10: R73.9] Yaima JOHNSON [facility] CPT-4: 84425 09/11/2017 ([id number]) OFFICE/OUTPATIENT VISIT EST Diagnosis: Cervicalgia[ICD10: M54.2] Diagnosis: Hypothyroidism, unspecified[ICD10: E03.9] Diagnosis: Essential (primary) hypertension[ICD10: I10] Diagnosis: Irritant contact dermatitis, unspecified cause[ICD10: L24.9] Diagnosis: FLU VACCINE[ICD10: Z23] [facility]: 78566 03/28/2017 ([id number]) OFFICE/OUTPATIENT VISIT EST Diagnosis: Influenza due to identified novel influenza A virus with other manifestations[ICD10: J09.X9] [facility] CPT-4: 67896 09/12/2016 ([id number]) OFFICE/OUTPATIENT VISIT EST Diagnosis: Dermatitis, unspecified[ICD10: L30.9] Diagnosis: Pain in right knee[ICD10: M25.561] Yaima REDMAN MARILYN [facility] CPT-4: 30572 07/28/2016 ([id number]) OFFICE/OUTPATIENT VISIT EST Diagnosis: Incisional hernia without obstruction or gangrene[ICD10: K43.2] Diagnosis: Gastro-esophageal reflux disease without esophagitis[ICD10: K21.9] Diagnosis: Radiculopathy, lumbosacral region[ICD10: M54.17] Yaima Elizabeth MCCORMACKLINE Jw [facility] CPT-4: 33826 04/26/2016 ([id number]) OFFICE/OUTPATIENT VISIT EST Diagnosis: FLU VACCINE[ICD10: Z23] Yaimaperlita MCCORMACKLINE [facility] CPT-4: 50550 04/22/2016 ([id number]) OFFICE/OUTPATIENT VISIT EST Diagnosis: Other fecal abnormalities[ICD10: R19.5] Yaima JOHNSON DO [facility] CPT-4: 30764 01/04/2016 ([id number]) OFFICE/OUTPATIENT VISIT EST 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] Diagnosis: Other specified diseases of liver[ICD10: K76.89] Diagnosis: Irritant contact dermatitis due to detergents[ICD10: L24.0] Yaima JOHNSON DO [facility] CPT-4: 28145 12/09/2015 ([id number]) OFFICE/OUTPATIENT VISIT EST Diagnosis: Pain in thoracic spine[ICD10: M54.6] Diagnosis: Radiculopathy, lumbosacral region[ICD10: M54.17] Diagnosis: Precordial pain[ICD10: R07.2] Yaima JOHNSON DO [facility] CPT-4: 99918 09/10/2015 ([id number]) OFFICE/OUTPATIENT VISIT EST Diagnosis: Nausea[ICD10: R11.0] Yaima JOHNSON DO [facility] CPT-4: 97623 07/20/2015 ([id number]) OFFICE/OUTPATIENT VISIT EST Diagnosis: Pain in left elbow[ICD10: M25.522] Diagnosis: Contusion of left lower leg, sequela[ICD10: S80.12XS] Diagnosis: Pleurodynia[ICD10: R07.81] Yaima HOWELL DO [facility] CPT-4: 01851 04/23/2015 ([id number]) OFFICE/OUTPATIENT VISIT EST Diagnosis: Unspecified abdominal pain[ICD10: R10.9] Diagnosis: Ventral hernia without obstruction or gangrene[ICD10: K43.9] Diagnosis: Constipation, unspecified[ICD10: K59.00] Yaima JOHNSON DO [facility] CPT-4: 85081 03/24/2015 ([id number]) OFFICE/OUTPATIENT VISIT EST Diagnosis: FLU VACCINE[ICD10: Z23] Yaima EUGENE DO [facility] CPT-4: 02510 03/09/2015 ([id number]) OFFICE/OUTPATIENT VISIT EST 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] Diagnosis: Generalized abdominal pain[ICD10: R10.84] Yaima JOHNSON DO [facility] CPT-4: 80094 03/05/2015 OFFICE/OUTPATIENT VISIT EST Diagnosis: ABDOMINAL PAIN[ICD9: 789.00] Diagnosis: HYPOTHYROIDISM[ICD9: 244.9] Diagnosis: HYPERTENSION[ICD9: 401.9] Diagnosis: DIVERTICULITIS, COLONIC[ICD9: 562.11] Diagnosis: DISTURBANCE OF SKIN SENSATION (Paresthesia)[ICD9: 782.0] Yaima JOHNSON [facility] CPT-4: 23012 02/19/2015 ([id number]) OFFICE/OUTPATIENT VISIT EST Diagnosis: HYPOTHYROIDISM[ICD9: 244.9] Diagnosis: Diaphoresis[ICD9: 780.8] Yaima [facility] CPT-4: 34557 12/25/2014 ([id number]) OFFICE/OUTPATIENT VISIT EST Diagnosis: ABDOMINAL PAIN[ICD9: 789.00] Diagnosis: PAIN, LOWER BACK[ICD9: 724.2] Diagnosis: Contusion of leg[ICD9: 924.5] Yaima JOHNSON DO [facility] CPT-4: 73374 11/26/2014 ([id number]) OFFICE/OUTPATIENT VISIT EST Diagnosis: IBS[ICD9: 564.1] Diagnosis: GERD[ICD9: 530.81] Yaima JOHNSON DO [facility] CPT-4: 28075 11/04/2014 ([id number]) OFFICE/OUTPATIENT VISIT EST Diagnosis: Headache[ICD9: 784.0] Diagnosis: Leg pain[ICD9: 729.5] Yaima JOHNSON DO [facility] CPT-4: 89421 09/01/2014 ([id number]) OFFICE/OUTPATIENT VISIT EST Diagnosis: DYSURIA[ICD9: 788.1] Yaima JOHNSON DO [facility] CPT-4: 62947 07/10/2014 OFFICE/OUTPATIENT VISIT EST Diagnosis: VAGINITIS[ICD9: 623.5] Diagnosis: SINUSITIS, ACUTE[ICD9: 461.9] Yaima JOHNSON DO [facility] CPT-4: 91437 06/02/2014 ([id number]) OFFICE/OUTPATIENT VISIT EST Diagnosis: HYPERTENSION[ICD9: 401.9] Diagnosis: ALLERGIC RHINITIS[ICD9: 477.9] Diagnosis: PAIN, LOWER BACK[ICD9: 724.2] Yaima JOHNSON [facility] CPT-4: 18933 04/08/2014 ([id number]) OFFICE/OUTPATIENT VISIT EST Diagnosis: COUGH[ICD10: R05] Diagnosis: Thoracic back pain[ICD9: 724.1] Yaima JOHNSON [facility] CPT-4: 24339 03/05/2014 ([id number]) OFFICE/OUTPATIENT VISIT EST Diagnosis: SINUSITIS, ACUTE[ICD9: 461.9] Diagnosis: BRONCHITIS, ACUTE[ICD9: 466.0] Yaima JOHNSON [facility] CPT-4: 57505 07/29/2013 ([id number]) OFFICE/OUTPATIENT VISIT EST Diagnosis: ABDOMINAL PAIN[ICD9: 789.00] Diagnosis: Constipation[ICD9: 564.00] Diagnosis: DIVERTICULITIS, COLONIC[ICD9: 562.11] [facility] CPT-[facility]: 59622 03/20/2013 ([id number]) OFFICE/OUTPATIENT VISIT EST Diagnosis: Plantar fasciitis[ICD9: 728.71] Diagnosis: ALLERGIC RHINITIS[ICD9: 477.9] Yaima JOHNSON [facility] CPT-4: 23781 02/12/2013 OFFICE/OUTPATIENT VISIT EST Diagnosis: Skin lesion[ICD9: 709.9] Diagnosis: Lumbar back pain[ICD9: 724.2] Diagnosis: Muscle spasm[ICD9: 728.85] Diagnosis: Hypothyroid[ICD9: 244.9] Yaima [facility] CPT-4: 67529 11/05/2012 ([id number]) OFFICE/OUTPATIENT VISIT EST Diagnosis: Cervicalgia[ICD9: 723.1] Diagnosis: Thoracic back pain[ICD9: 724.1] Diagnosis: SPASM OF MUSCLE[ICD9: 728.85] Yaima JOHNSON [facility] CPT-4: 41572 10/04/2012 ([id number]) OFFICE/OUTPATIENT VISIT EST Diagnosis: MALAISE AND FATIGUE[ICD9: 780.79] Diagnosis: HYPOTHYROIDISM[ICD9: 244.9] Diagnosis: HYPERTENSION[ICD9: 401.9] Yaima TAYLOR [facility] CPT-4: 33878 09/24/2012 ([id number]) OFFICE/OUTPATIENT VISIT EST Diagnosis: Lateral epicondylitis[ICD9: 726.32] Diagnosis: Wrist pain[ICD9: 719.43] Diagnosis: Numbness and tingling in right hand[ICD9: 782.0] Yaima RaviRobin [facility] CPT-4: 09120 05/10/2012 OFFICE/OUTPATIENT VISIT EST Diagnosis: MALAISE AND FATIGUE[ICD9: 780.79] Diagnosis: HYPOTHYROIDISM[ICD9: 244.9] Diagnosis: Enthesopathy of the wrist and carpus[ICD9: 726.4] Diagnosis: Foot pain[ICD9: 729.5] Diagnosis: DYSPHAGIA NEC[ICD9: 787.29] Yaima MCCORMACKLINE S. O RENDER DO [facility] CPT-4: 20270 03/07/2012 ([id number]) OFFICE/OUTPATIENT VISIT EST Diagnosis: HYPOTHYROIDISM[ICD9: 244.9] Yaima Johnson YAIMA S. O RENDER DO [facility] CPT-4: 63115 02/01/2012 ([id number]) OFFICE/OUTPATIENT VISIT EST Diagnosis: MALAISE AND FATIGUE[ICD9: 780.79] Diagnosis: HYPOTHYROIDISM[ICD9: 244.9] Yaima Johnson YAIMA S. O RENDER [facility] CPT-4: 96698 12/20/2011 OFFICE/OUTPATIENT VISIT EST Diagnosis: INSECT BITE HIP/LEG[ICD9: 916.4] Lizzette Escalera L[facility]VALORIE [facility] CPT-4: 15908 11/22/2011 OFFICE/OUTPATIENT VISIT EST Diagnosis: HEMATURIA NOS[ICD9: 599.70] Yaima Johnson YAIMA S. O RENDER DO [facility] CPT-4: 75037 07/14/2011 OFFICE/OUTPATIENT VISIT EST Diagnosis: URINARY TRACT INFECTION[ICD9: 599.0] Diagnosis: DIVERTICULITIS, COLONIC[ICD9: 562.11] Yaima BRIGHTMARILYN Escalera [facility] CPT-4: 58969 07/11/2011 OFFICE/OUTPATIENT VISIT EST Diagnosis: TMJ arthritis[ICD9: 524.69] Diagnosis: MIGRAINE NOS/NOT INTRCBL[ICD9: 346.90] Diagnosis: Rectal fissure[ICD9: 565.0] Yaima Oreyvesvalorie YAIMA Ravi. O RENDER [facility] CPT-4: 22798 07/06/2011 OFFICE/OUTPATIENT VISIT EST Diagnosis: SPASM OF MUSCLE[ICD9: 728.85] Diagnosis: PAIN, LOWER BACK[ICD9: 724.2] Yaima Josueyvesvalorie YAIMA Escalera [facility] CPT-4: 58383 05/26/2011 OFFICE/OUTPATIENT VISIT EST Diagnosis: PAIN, LOWER BACK[ICD9: 724.2] Diagnosis: SPASM OF MUSCLE[ICD9: 728.85] Yaima Josueyvesvalorie YAIMA Escalera [facility] CPT-4: 69437 05/16/2011 OFFICE/OUTPATIENT VISIT EST Diagnosis: PAIN, LOWER BACK[ICD9: 724.2] Diagnosis: ENTHESOPATHY OF HIP[ICD9: 726.5] Diagnosis: Onychomycosis[ICD9: 110.1] Yaima Josuesara Escalera OR [facility] CPT-4: 36960 05/05/2011 OFFICE/OUTPATIENT VISIT EST Diagnosis: Diverticulitis[ICD9: 562.11] Yaima Josueyvesvalorie YAIMA Escalera [facility] CPT-4: 21011 04/05/2011 OFFICE/OUTPATIENT VISIT EST Diagnosis: CHEST PAIN NOS[ICD9: 786.50] Diagnosis: PALPITATIONS[ICD9: 785.1] Diagnosis: Pulmonary arterial hypertension[ICD9: 416.8] Yaima Josuesara Escalera [facility] CPT-4: 08724 03/02/2011 OFFICE/OUTPATIENT VISIT EST Yaimaperlita Gaytaner [facility] CPT- 4: 29481 01/05/2011 ([id number]) OFFICE/OUTPATIENT VISIT EST Yaimaperlita Gaytaner [facility] CPT-4: 48790 11/16/2010 ([id number]) OFFICE/OUTPATIENT VISIT EST Yaimaperlita Salasnder [facility] CPT-4: 43392 11/04/2010 ([id number]) OFFICE/OUTPATIENT VISIT EST Yaimaperlita Gaytaner [facility] CPT-4: 26122 08/05/2010 ([id number]) OFFICE/OUTPATIENT VISIT EST Yaimaperlita Gaytaner [facility] CPT-4: 52614 07/23/2010 ([id number]) OFFICE/OUTPATIENT VISIT, EST Yaimaperlita Gaytaner NADIA [facility] CPT-4: 15039 06/07/2010 ([id number]) OFFICE/OUTPATIENT VISIT, EST Yaimaperlita Gaytaner [facility] CPT-4: 30326 05/12/2010 ([id number]) OFFICE/OUTPATIENT VISIT, EST Yaima Gaytaner [facility] CPT-4: 16838 04/27/2010 ([id number]) OFFICE/OUTPATIENT VISIT, EST Yaimaperlita Gaytaner [facility] CPT-4: 90822 04/19/2010 ([id number]) OFFICE/OUTPATIENT VISIT, EST Yaimaperlita Gaytaner [facility] CPT-4: 21607 03/09/2010 ([id number]) OFFICE/OUTPATIENT VISIT, EST Yaima Lukaser [facility] CPT-4: 74734 01/04/2010 ([id number]) OFFICE/OUTPATIENT VISIT, EST Yaima Lukaser [facility] CPT-4: 43593 12/14/2009 ([id number]) OFFICE/OUTPATIENT VISIT, EST Lizzette Lozano [facility] CPT-4: 50803 11/23/2009 Plan of Care Planned Activity Notes [...] Plan: COMPREH[place] : [address]-9 Pending 06/18/2019 Care Plan: LIPID PANEL LOINC : 30878-1 Pending 06/18/2019 Care Plan: A1C HPLC LOINC : 51749-9 Pending 06/18/2019 Care Plan: COMPLETE CBC W/AUTO DIFF WBC LOINC : 76497-3 Pending 06/18/2019 Care Plan: ASSAY THYROID STIM [...] ICD-10 : M54.5 04/12/2019 Appointment: Jane Nettles [address] [place], [place] [phone] ACUTE ILLNESS 04/12/2019 Appointment: Yaima Johnson WPtel: [facility] US CANCELED 02/05/2019 Visit Diagnosis Plan: Pain in thoracic spine Discussio n: Moist Heat Topical Muscle Rub Towel Stretch Skelaxin with Tylenol Arthritis TID Okay to use lidoderm patches Notify if persists ICD-9 : 724.1 ICD-10 : M54.6 01/16/2019 Appointment: Yaima Johnson WPtel: [address] [place] [address] ACUTE ILLNESS 01/16/2019 Appointment: Yaima Johnson WPtel: [address] [place] [address] UA 01/14/2019 Visit Diagnosis Plan: Left lower quadrant pain Discuss ion: Appears to have a hernia so did discuss surgical evaluation ICD-9 : 789.04 ICD-10 : R10.32 01/09/2019 Appointment: Yaima Johnson WPtel: [address] [place] [address] ACUTE ILLNESS 01/09/2019 Visit Diagnosis Plan: Encounter for [facility] adult medical examination without abnormal findings [...] : Z00.00 11/21/2018 Appointment: Yaima Johnson WPtel: [address] [place] [address] WELCOME TO MEDICARE 11/21/2018 Care Plan: Referral Order SNOMED-CT : 30 [id number] Pending 11/21/2018 Appointment: Yaima Johnson WPtel: [address] [place] [address] UA 11/01/2018 Visit Diagnosis Plan: Hypothyroidism, unspecified Disc ussion: Restart synthroid at 50mcg daily and recheck lab in 3mos ICD-9 : 244.9 ICD-10 : E03.9 10/04/2018 Visit Diagnosis Plan: Other cervical dis c degeneration, unspecified cervical region Discussion: MRI results discussed fw w [facility] Dr. Johnson ICD-9 : 722.4 ICD-10 : M50.30 10/04/2018 Appointment: Yaima Johnson WPtel: [address] [place], [place] [id number] FOLLOW UP 10/04/2018 Care Plan: Referral Order SNOMED-CT : 30 [id number] Pending 10/04/2018 Visit Diagnosis Plan: Hypothyroidism, unspecified [...] : M54.2 08/06/2018 Appointment: Yaima Johnson WPtel: [facility] [place] Schedule medicare annual! FOLLOW UP 2018 Patient Education: levothyroxine- OptimizeRX Coupon [phone] [id number] [email or web address] Completed 08/06/2018 Visit Diagnosis Plan: Radiculopathy, lumbosacral regio n Discussion: Daily stretches and see if improves--low dose gabapentin trial q HS if does not improve Lab and fwup in 3mos ICD-9 : 724.4 ICD-10 : M54.17 06/21/2018 Visit Diagnosis Plan: Abrasion, left lower leg, sequel a Discussion: Vitamin E topically for scarring/dryness ICD-9 : 906.2 ICD-10 : S80.812S 06/21/2018 Appointment: Yaima Johnson WPtel: [facility] ACUTE ILLNESS 06/21/2018 Appointment: Yaima Johnsontewilson: [facility] [address] UA 06/13/2018 Visit Diagnosis Plan: Other [...] ICD-10 : M54.89 05/31/2018 Appointment: Jane Nettles [address] [place] [address] ACUTE ILLNESS 05/31/2018 Appointment: Yaima Johnson WPtel: [address] [place] [address] INJECTION 03/22/2018 Patient Education: Patient Medication Summary Completed 03/22/2018 Patient Education: INFLUENZA VACCINE CDC Completed 03/22/2018 Appointment: Yaima Johnson WPtel: [address] [place] [address] RESCHEDULED 02/14/2018 Visit Diagnosis Plan: Hypothyroidism, unspecified [...] : J30.2 02/06/2018 Appointment: Yaima Johnson WPtel: [phone] FOLLOW UP 02/06/2018 Patient Education: Patient Medication Summary Completed 02/06/2018 Appointment: Yaima Johnson WPtel: [address] [place], [place] [phone] [place] INJECTION 12/28/2017 Patient Education: Patient Medication Summary Completed 12/28/2017 Appointment: Yaima Johnson WPtel: [address] [place], [place] [phone] RESCHEDULED 12/25/2017 Visit Diagnosis Plan: Tinnitus, bilateral Discussion: See ENT for hearing eval and further workup ICD-9 : 388.31 ICD-10 : H93.13 12/18/2017 Appointment: Yaima Johnson WPtel: [address] [place], [place] [address] ACUTE ILLNESS 12/18/2017 Patient Education: Patient Medication Summary Completed 12/18/2017 Patient Education: Tinnitus Completed 12/18/2017 Care Plan: Referral Order SNOMED-CT : 30 8967416 Pending 12/18/2017 Appointment: Yaima Johnson WPtel: [address] [place] [address] BP CHECK 12/11/2017 Patient Education: Patient Medication Summary Completed 12/11/2017 Referral: Danyel Hernandez WPtel: [facility] [address] Referral Initiated 10/11/2017 Appointment: Yaima Johnson WPtel: [address] [place], [place] [phone] INJECTION 10/04/2017 Patient Education: Patient Medication Summary [...] E03.9 09/11/2017 Appointment: Yaima Johnson WPtel: [phone] FOLLOW UP 09/11/2017 Patient Education: Patient Medication Summary Completed 09/11/2017 Appointment: Jane Nettles [address] [place] [address] 08/28/17 [phone]---issue addressed in phone message (km) CANCELED 08/29/2017 Patient Education: Patient Medication Summary Completed 07/11/2017 Care Plan: A1C HPLC LOINC : 56105-5 Pending 07/11/2017 Care Plan: ASSAY OF FREE THYROXINE Pendin g 07/11/2017 Care Plan: ASSAY THYROID STIM HORMONE Pen ding 07/11/2017 Care Plan: COMPLETE CBC W/AUTO DIFF WBC LOINC : 77154-8 Pending 07/11/2017 Care Plan: COMPREH[place] : [address]-4 Pending 07/11/2017 Visit Diagnosis Plan: Irritant contact [...] E03.9 03/28/2017 Appointment: Yaima Johnson WPtel: [phone] [facility] ACUTE ILLNESS 03/28/2017 Patient Education: Patient Medication Summary Completed 03/28/2017 Patient Education: Patient Medication Summary Completed 02/17/2017 Care Plan: ASSAY OF FREE THYROXINE Pendin g 02/17/2017 Care Plan: ASSAY THYROID STIM HORMONE Pen ding 02/17/2017 Care Plan: A1C HPLC LOINC : 84750-6 Pending 02/17/2017 Patient Education: Patient Medication Summary Completed 11/23/2016 Care Plan: A1C HPLC LOINC : 62021-1 Pending 11/23/2016 Patient Education: Patient Medication Summary Completed 11/22/2016 Care Plan: [place] : [address]-4 Pending 11/22/2016 Care Plan: ASSAY THYROID STIM HORMONE Pen ding 11/22/2016 Care Plan: ASSAY OF FREE THYROXINE Pendin g 11/22/2016 Care Plan: CBC Pending 11/22/2016 Care Plan: ASSAY TRIIODOTHYRONINE (T3) Pe nding 11/22/2016 Care Plan: ASSAY OF IRON Pending Care Plan: VITAMIN B-12 Pending 11/04 Patient Education: Patient Medication Summary Completed 11/09/2016 Care Plan: US EXAM ABDO BACK WALL COMP L OINC : 39566-8 Pending 11/09/2016 Patient Education: Patient Medication Summary Completed 09/26/2016 Visit Diagnosis Plan: Influenza due to i dentified novel influenza A virus with other manifestations Discussion: Tamiflu for her and ICD-9 : 488.09 ICD-10 : J09.X9 09/12/2016 Visit NOS Plan: Plan Notes: Saline nasal flu shes prn. Tyle... 09/12/2016 Appointment: Yaima Johnson WPtel: [address] [place], [place] [id number] ACUTE ILLNESS 09/12/2016 Patient Education: Patient Medication Summary Completed 09/12/2016 Visit Diagnosis Plan: Pain in right knee Discussion: M RI of right knee scheduled for this weekend by ortho ICD-9 : 719.46 ICD-10 : M25.561 07/28/2016 Visit Diagnosis Plan: Dermatitis, unspecified Discussi on: Use clotrimazole/betamethasone BID to hand rash ICD-9 : 692.9 ICD-10 : L30.9 07/28/2016 Appointment: Yaima Johnson WPtel: [phone] [facility] [place] 07/27 confirmed `sl ACUTE ILLNESS 07/28/2016 [...] how does 04/26/2016 Appointment: Yaima Johnson WPtel: [address] [place], [place] [phone] ACUTE ILLNESS 04/26/2016 Patient Education: Patient Medication Summary Completed 04/26/2016 Appointment: Yaima Johnson WPtel: [address] [place], [place] [phone] [place] INJECTION 04/22/2016 Patient Education: Patient Medication Summary Completed 04/22/2016 Appointment: Yaima Johnson WPtel: [address] [place], [place] [phone] Stool lab 01/04/2016 Patient Education: Patient Medication Summary Completed 01/04/2016 Visit Plan: Calmoseptine to irritated gr oin area Discussed that liver lesion and right kidney cyst are stable dating back to 2009 so likely benign and will recheck in 1year Check CMP and CBC 12/09/2015 Appointment: Yaima Johnson WPtel: [address] [place], [place] [phone] [place] FOLLOW UP 12/09/2015 Patient Education: Patient Medication Summary Completed 12/09/2015 Patient Education: Patient Medication Summary Completed 11/26/2015 Care Plan: ECHO EXAM OF ABDOMEN LOINC : 28319-9 Pending 11/26/2015 Care Plan: US EXAM ABDO BACK WALL COMP L OINC : 56198-4 Pending 11/26/2015 Patient Education: Patient Medication Summary Completed 11/10/2015 Care Plan: ASSAY THYROID STIM HORMONE Pen ding 11/10/2015 Care Plan: ASSAY OF FREE THYROXINE Pendin g 11/10/2015 Visit Plan: Start PT for both right leg sciatica and thoracics for chest pain 09/10/2015 Appointment: Yaima Johnson WPtel: [address] [place], [place] [address] ACUTE ILLNESS 09/10/2015 Patient Education: Patient Medication Summary Completed 09/10/2015 Appointment: Yaima Johnson WPtel: [address] [place] [address] [place] INJECTION 07/20/2015 Patient Education: Patient Medication Summary Completed 07/20/2015 Patient Education: Patient Medication Summary Completed 05/04/2015 Visit Plan: Observe left elbow for next 2 weeks and if not improving let us know Observe left leg bruising Can use voltaren gel to elbow Observe ribs Lidoderm patch for SI joint 04/23/2015 Appointment: Yaima Johnson WPtel: [address] [place] [address] FOLLOW UP 04/23/2015 Patient Education: Patient Medication Summary Completed 04/23/2015 Patient Education: Patient Medication Summary Completed 04/20/2015 Visit Plan: Discussed CT results Add Milton alax 1/2 cap every other day 03/24/2015 Appointment: Yaima Johnson WPtel: [address] [place] [address] 03/23 confirmed~sl FOLLOW UP 03/24/2015 Patient Education: Patient Medication Summary Completed 03/24/2015 Appointment: Yaima Johnson WPtel: [address] [place], [place] [phone] [place] INJECTION 03/09/2015 Patient Education: Patient Medication Summary Completed 03/09/2015 Visit Plan: Check CT scan of abdomen and pelvis with oral contrast Thoracic towel stretch 03/05/2015 Appointment: Yaima Johnson WPtel: [address] [place] [address] US FOLLOW UP 03/05/2015 Patient Education: Patient Medication Summary Completed 03/05/2015 Referral: Richmond Berger WPtel: [address] [id number] [place] Referral Initiated 02/23/2015 Visit Plan: Lab [...] and left knee 02/19/2015 Appointment: Yaima Johnsontel: [address] [place], [place] [phone] 02/18/15 lm confirmed with cb FOLLOW UP Patient Education: Patient Medication Summary Completed 02/19/2015 Patient Education: Patient Medication Summary Completed 02/04/2015 Appointment: Yaima Johnsontel: [phone] [facility] FOLLOW UP 01/06/2015 Visit Plan: Decrease levothyroxine to 50 mcg daily Recheck TSH and Free T4 in 2mos then fwup 12/25/2014 Appointment: Yaima Johnson WPtel: [phone] [facility] ACUTE ILLNESS 12/25/2014 Patient Education: Patient Medication Summary Completed 12/25/2014 Patient Education: [facility] - Saving [employer] - Levothyroxine - 18-64 - Dynamic Portal ID Completed 12/25/2014 Patient Education: Patient Medication Summary Completed 12/15/2014 Visit Plan: Observe left leg keep meds s robert Has scheduled for 2nd epidural Recheck 3-4weeks after next epidural 11/26/2014 Appointment: Yaima Johnson WPtel: [facility]8 [facility] 11/25 appt confirmed cn FOLLOW UP 11/27/19 15 Patient Education: Patient Medication Summary Completed 11/26/2014 Visit Plan: Increase Protonix to 40mg po BID Add Bentyl 10mg BID and up to TID prn Patient goes for back injection in 3 weeks Fwup 1 week after back injection 11/04/2014 Appointment: Yaima Johnson WPtel: [phone] [facility] 11/03/ / 11/04 appt confirmed ACUTE ILLNESS 0 11/04/2014 Patient Education: Patient Medication Summary Completed 11/04/2014 Appointment: Yaima Johnson WPtel: [address] [place], [place] [phone] 10/14/14: doing better-canceled appt-lb ACUTE ILL NESS 10/15/2014 Visit Plan: hydration stop benadryl Obse rve and monitor Headaches Leg stretches, going to PT today-have them show stretches Notify if headaches, leg pain return/persist 09/01/2014 Appointment: Yaima Johnson WPtel: [address] [place], [place] [address] ACUTE ILLNESS 09/01/2014 Patient Education: Patient Medication Summary Completed 09/01/2014 Patient Education: Patient Medication Summary Completed 08/05/2014 Care Plan: ASSAY OF FREE THYROXINE Ordere d 08/05/2014 Care Plan: ASSAY THYROID STIM HORMONE Ord ered 08/05/2014 Appointment: Yaima Johnson WPtel: [address] [place], [place] [phone] [place] [address] 07/10/2014 Patient Education: Patient Medication Summary Completed 07/10/2014 Patient Education: Patient Medication Summary Completed 07/03/2014 Care Plan: HEPATIC FUNCTION PANEL Ordered 07/03/2014 Visit Plan: Vaginal ring unable to be in serted do will have to stick with pill vaginally as prescribed for at least 6mo trial Saline nasal flushes and restart flonase 06/02/2014 Appointment: Yaima Johnson WPtel: [address] [place], [place] [phone] FOLLOW UP 06/02/2014 Patient Education: Patient Medication Summary Completed 06/02/2014 Appointment: Yaima Johnson WPtel: [address] [place], [place] [phone] BP CHECK 05/26/2014 Patient Education: Patient Medication Summary Completed 05/26/2014 Patient Education: Patient Medication Summary Completed 05/22/2014 Appointment: Yaima Johnson WPtel: [address] [place], [place] [address] BP CHECK 05/07/2014 Patient Education: Patient Medication Summary Completed 05/07/2014 Referral: Nitesh Avalos WPtel: [address] [address] [id number] MRI Scheduled at [place], 04/17 3pm Completed 04/30/2014 Appointment: Yaima Johnson WPtel: [address] [place], [place] [address] BP CHECK 04/15/2014 Visit Plan: Decrease premarin to 0.3125m g for 1week then stop Restart estrogen vaginal tabs and Patient requests to see Dr. Restrepo for back but discussed at this time appears to need conservative management such as PT and epidurals Moniter BP 04/08/2014 Appointment: Yaima Johnson WPtel: [address] [place], [place] [address] ACUTE ILLNESS 04/08/2014 Patient Education: Patient Medication Summary Completed 04/08/2014 Appointment: Yaima Johnson WPtel: [address] [place] [address] ACUTE ILLNESS 03/10/2014 Visit Plan: Thoracic stretches daily Ske laxin 800mg BID Use vimovo prn Use gemma prn 03/05/2014 Appointment: Yaima Johnson WPtel: [address] [place] [address] ACUTE ILLNESS 03/05/2014 Patient Education: Patient Medication Summary Completed 03/05/2014 Visit Plan: Saline nasal flushes prn. Ty lenol/Motrin prn headache. Notify if persists/symptoms worsening. Zithromax and Prednisone Supportive care. Rest, Fluids, Tylenol/Motrin prn fever or bodyaches. Notify if worsening symptoms. 07/29/2013 Appointment: Mimi Keenan WPtel: [address] [place], [place] [phone] FOLLOW UP 07/29/2013 Patient Education: Patient Medication Summary Completed 07/29/2013 Appointment: Mimi Keenan WPtel: [address] [place] [address] 05/22 patient called back and reschedule d 05/24 vm not set up yet ACUTE ILLNESS 05/27/20 13 Visit Plan: Add miralax Cipro/Flagyl Pt has appointment with GI in NOV 03/20/2013 Appointment: Yaima Johnson WPtel: [address] [place] [address] ACUTE ILLNESS 03/20/2013 Patient Education: Patient Medication Summary Completed 03/20/2013 Visit Plan: Tullicups Stretches, ice, vo ltaren gel TID 02/12/2013 Appointment: Yaima Johnson WPtel: [address] [place] [address] ACUTE ILLNESS 02/12/2013 Patient Education: Patient Medication [...] Oct 2012. 11/05/2012 Appointment: Lizzette Lozano WPtel: [address] [place], [place] [phone] ACUTE ILLNESS 11/05/2012 Patient Education: Patient Medication Summary Completed 11/05/2012 Appointment: Yaima Johnson WPtel: [address] [place], [place] [phone] FOLLOW UP 10/04/2012 Patient Education: Patient Medication Summary Completed 10/04/2012 Visit Plan: Change toprol back to bystol ic BP check in 3wks Continue to observe hands--no observed bruising today 09/24/2012 Appointment: Yaima Johnsontel: [address] [place], [place] [phone] 09/21 left message ACUTE ILLNESS 09/24/2012 Patient Education: Patient Medication Summary Completed 09/24/2012 Visit Plan: Proceed with EMG of RUE Cont inue vimovo and skelaxin May use Voltaren gel TID to elbow and wrist 05/10/2012 Appointment: Yaima Johnson WPtel: [address] [place], [place] [phone] 05/09 left voicemail ACUTE ILLNESS 05/10/2012 Patient [...] is improving 03/07/2012 Appointment: Yaima Johnson WPtel: [address] [place] [address] FOLLOW UP 03/07/2012 Patient Education: Patient Medication Summary Completed 03/07/2012 Visit Plan: Continue current dose Check TSH, Free T4 in 2mos 02/01/2012 Appointment: Yaima Johnsontel: [address] [place], [place] [phone] FOLLOW UP 02/01/2012 Patient Education: Patient Medication Summary Completed 02/01/2012 Visit Plan: Levothyroxine 50mcg po daily 12/20/2011 Appointment: Yaima Johnson WPtel: [address] [place], [place] [address] FOLLOW UP 12/20/2011 Patient Education: Patient Medication Summary Completed 12/20/2011 Appointment: Lizzette Lozano WPtel: [address] [place], [place] [phone] ACUTE ILLNESS 11/22/2011 Patient Education: Patient Medication Summary Completed 11/22/2011 Appointment: Yaima Johnsonl: [address] [place] [address] UA 07/14/2011 Patient Education: Patient Medication Summary Completed 07/14/2011 Visit Plan: Finish current abx Clear liq uids to full liquids and then advance as tolerated If worsens will notify immediately Schedule with Dr. Berger for colonoscopy/EGD 07/11/2011 Appointment: Yaima Johnson WPtel: [address] [place] [address] ER Follow UP 07/11/2011 Patient Education: Patient Medication Summary Completed 07/11/2011 Visit Plan: Take treximet today and skel axin at bedtime Add anusol cream for 1wk Discussed if colon continues to flare-up over the next 6mos will repeat colonoscopy 07/06/2011 Appointment: Yaima Johnson WPtel: [address] [place] [address] ACUTE ILLNESS 07/06/2011 Patient Education: Patient Medication Summary Completed 07/06/2011 Appointment: Yaima Johnson WPtel: [address] [place] [address] INJECTION 06/28/2011 Patient Education: Patient Medication Summary Completed 06/28/2011 Visit Plan: OMT done Increase Skelaxin t o TID Start PT Daily stretches 05/26/2011 Appointment: Yaima Johnson WPtel: [address] [place] [address] ACUTE ILLNESS 05/26/2011 Patient Education: Patient Medication Summary Completed 05/26/2011 Visit Plan: OMT done Daily stretches, bi ofreeze Restart skelaxin 05/16/2011 Appointment: Yaima Johnson WPtel: [address] [place] [address] OMT 05/16/2011 Patient Education: Patient Medication Summary Completed 05/16/2011 Visit Plan: OMT done to back Stretches, moist heat and biofreeze Observe toenails 05/05/2011 Appointment: Yaima Johnson WPtel: [address] [place], [place] [phone] ACUTE ILLNESS 05/05/2011 Patient Education: Patient Medication Summary Completed 05/05/2011 Visit Plan: Finish Flagyl Continue Cultu relle and add Levbid for 1more week 04/05/2011 Appointment: Yaima Johnson WPtel: [address] [place], [place] [address] ER Follow UP 04/05/2011 Patient Education: Patient Medication Summary Completed 04/05/2011 Appointment: Lizzette Lozano WPtel: [address] [place] [address] ACUTE ILLNESS 03/25/2011 Appointment: Yaima Johnson WPtel: [address] [place], [place] [phone] UA 03/23/2011 Patient Education: Patient Medication Summary Completed 03/23/2011 Visit Plan: Recommend proceed with heart cath Will check PFTs 03/02/2011 Appointment: Yaima Johnson WPtel: [address] [place] [address] FOLLOW UP 03/02/2011 Patient Education: Patient Medication Summary Completed 03/02/2011 Appointment: Yaima Johnson WPtel: [address] [place], [place] [phone] LAB 01/14/2011 Patient Education: Patient Medication Summary Completed 01/14/2011 Appointment: Lizzette Lozano WPtel: [address] [place], [place] [id number] ACUTE ILLNESS 01/05/2011 Patient Education: Patient Medication Summary Completed 01/05/2011 Visit Plan: Once again stressed importan ce of using premarin vaginal cream routinely to see if helps urinary symptoms Will culture urine Will observe lipomas--discussed may see surgery for removal 11/16/2010 Appointment: Yaima Johnson WPtel: [address] [place], [place] [phone] ACUTE ILLNESS 11/16/2010 Patient Education: Patient Medication Summary Completed 11/16/2010 Visit Plan: Injection to bursa as above Pt will continue to moniter BP and pulse off meds Repeat potassium level in 1wk 11/04/2010 Appointment: Yaima Johnsontel: [address] [place], [place] [phone] [place] FOLLOW UP 11/04/2010 Patient Education: Patient Medication Summary Completed 11/04/2010 Appointment: Yaima Johnson WPtel: [address] [place] [address] [place] FOLLOW UP 08/05/2010 Patient Education: Patient Medication Summary Completed 08/05/2010 Appointment: Yaima Johnsontel: [address] [place] [address] ACUTE ILLNESS 07/23/2010 Patient Education: Patient Medication Summary Completed 07/23/2010 Appointment: Yaima Johnson WPtel: [address] [place] [address] [place] UA 07/05/2010 Patient Education: Patient Medication Summary Completed 07/05/2010 Appointment: Yaima Johnsontel: [address] [place] [address] [place] BP CHECK 06/28/2010 Patient Education: Patient Medication Summary Completed 06/28/2010 Appointment: Yaima Johnson WPtel: [address] [place], [place] [phone] [place] UA 06/14/2010 Appointment: Yaima Johnson WPtel: [address] [place] [address] US BP CHECK 06/14/2010 Appointment: Yaima Johnson WPtel: [address] [place] [address] US BP CHECK 06/14/2010 Patient Education: Patient Medication Summary Completed 06/14/2010 Patient Education: Patient Medication Summary Completed 06/14/2010 Appointment: Yaima Johnson WPtel: [address] [place] [address] [place] BP CHECK 06/10/2010 Visit Plan: Decrease lisinopril hct to 1 0/12.5mg QD and moniter BP BP check in 2-3wks--if pulse is increasing will go back to bystolic See ENT to evaluate hoarseness 06/07/2010 Appointment: Yaima Johnson WPtel: [address] [place] [address] [place] FOLLOW UP 06/07/2010 Patient Education: Patient [...] (See printoff) 05/12/2010 Appointment: Lizzette Lozano WPtel: [address] [place] [address] ACUTE ILLNESS 05/12/2010 Patient Education: Patient Medication Summary Completed 05/12/2010 Visit Plan: Continue Bentyl at QAC and H S Continue protonix but increase to BID for 5-7 days If any fever or signs of divertuclitis develop notify 04/27/2010 Appointment: Yaima Johnson WPtel: [address] [place] [address] ACUTE ILLNESS 04/27/2010 Patient Education: Patient Medication Summary Completed 04/27/2010 Visit Plan: flako barajas. Refils. Kaden razolam #90, -written RX 04/19/2010 Appointment: Lizzette Lozano WPtel: [address] [place] [address] ACUTE ILLNESS 04/19/2010 Patient Education: Patient Medication Summary Completed 04/19/2010 Appointment: Yaima Johnson WPtel: [address] [place] [address] LAB 04/12/2010 Patient Education: Patient Medication Summary Completed 04/12/2010 Appointment: Yaima Johnsontel: [address] [place] [address] UA 04/08/2010 Patient Education: Patient Medication Summary Completed 04/08/2010 Appointment: Yaima Johnson WPtel: [address] [place] [address] FOLLOW UP 03/09/2010 Patient Education: Patient Medication Summary Completed 03/09/2010 Appointment: Yaima Johnson WPtel: [address] [place] [address] BP CHECK 01/19/2010 Patient Education: Patient Medication Summary Completed 01/19/2010 Visit Plan: Check CT head Increase Bysto lic to 5mg QD BP check in 2wks 01/04/2010 Appointment: Yaima Johnsontel: [address] [place] [address] ACUTE ILLNESS 01/04/2010 Patient Education: Patient Medication Summary Completed 01/04/2010 Appointment: Yaima Johnsontel: [address] [place] [address] BP CHECK 12/21/2009 Patient Education: Patient Medication Summary Completed 12/21/2009 Visit Plan: Change cenestin back to Liu emigdio Cont to moniter BP BP check in 1wk 12/14/2009 Appointment: Yaima Johnson WPtel: [address] [place] [address] FOLLOW UP 12/14/2009 Patient Education: Patient Medication Summary Completed 12/14/2009 Appointment: Lizzette Lozano WPtel: [address] [place] [address] FOLLOW UP 11/23/2009 Patient Education: Patient Medication Summary Completed 11/23/2009 Appointment: Yaima Johnson WPtel: [address] [place], [place] [phone] [place] LAB 09/29/2009 Patient Education: Patient Medication Summary Completed 09/29/2009 Appointment: Yaim[facility] Johnson [facility]Ptel[facility] [phone] [id number] [place] 08/12/2009 Patient Education: Patient Medication Summary Completed 08/12/2009 Referral: Richmond Berger WPtel: [address] [id number] [place] Referral Appointment Requested Referral: Jayce Boyce WPtel: [address] [id number] [place] Referral Appointment Requested Referral: Naldo Johnson WPtel: [address] [id number] [place] Referral Initiated Referral: Naldo Johnson WPtel: [address] [id number] [place] Referral Appointment Requested Instructions Comment . [...]
--- OUTSIDE RECORDS SUMMARY | 2019-08-15 06:06 | XMS REPORT | CCD ---
Author Author Fay Johnson D.O. Organization 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 Name Role Phone Yaima Johnson D.O., PP Unavailable CCM Unavailable Summary Purpose Interface Exchange Insurance Providers Payer name Policy type / Coverage type Covered democrat ID Effective Begin Date Effective End Date WPS [place]IC[place] Part B [id number] 2018 Unknown [facility] Medicare Part B [id number] 2018 Unknown Family History Family History data not found Social History Social History Element Codes Description Effective Dates Marital status Unknown 05/16/[address]: [id number] Never smoker 04/05/2011 Allergies, Adverse Reactions, Alerts [...] Hypothyroidism ICD-9: 244.9 ICD-10: E03.9 08/05/2014 Active Essential (primary) hypertension ICD-9: 401.9 ICD-10: [...] Instructions Probiotic 10 billion cell capsule RxNorm: 2252513 1 Capsule(s) O ral QD 07/03/2019 No Stop Date Active cetirizine 10 mg tablet RxNorm: 2451533 1 Tablet(s) Oral QD 020 No Stop Date Active levothyroxine 50 mcg tablet RxNorm: 255779 1 Tablet(s) Oral QD 06/0612/20/2019 Active Macrobid 100 mg capsule RxNorm: 432312 1 Capsule(s) Oral two ti mes a day 04/12/2019 04/19/2019 Inactive Toprol XL 25 mg tablet,extended release RxNorm: 976610 1 Tablet (s) PO QD 03/13/2019 09/08/2019 Active Generic For:TOPROL X L 25MG TAB SA 12/21/2015 9:08:41 AM Mobic 7.5 mg tablet RxNorm: 983882 1 Tablet(s) PO QOD opposite days as aleve 11/21/2018 11/21/2018 Inactive dicyclomine 10 mg capsule RxNorm: 337538 1 Capsule(s) P O TID as needed for abdominal pain 08/23/2018 No Stop Date Active alprazolam 0.25 mg tablet RxNorm: 623100 1 Tablet(s) PO Q8H as needed for anxiety 08/10/2018 11/20/2018 Inactive [AttnRPh: Saving apply/adjudicate RxGRP:SG20 RxBIN:[id number] RxPCN: ID#:[id number]] levothyroxine 25 mcg tablet RxNorm: 307402 1 Tablet(s) PO QD replaces 50mcg dose 08/06/2018 10/04/2018 Inactive levothyroxine 25 mcg tablet RxNorm: 185915 1 Tablet(s) PO QD replaces 50mcg dose 08/06/2018 08/05/2018 Inactive levothyroxine 50 mcg tablet RxNorm: 295858 1 Tablet(s) PO QD 201808/05/2018 Inactive Generic For:*SYNTHROID 0.05M G TAB 08/09/2016 8:59:33 AM Mobic 7.5 mg tablet RxNorm: 437212 1 Tablet(s) PO QOD opposite days as aleve 07/10/2018 09/07/2018 Inactive Mobic 7.5 mg tablet RxNorm: 973080 1 Tablet(s) PO QD 07/10/201807/09 Inactive Toprol XL 25 mg tablet,extended release RxNorm: 306608 1 Tablet (s) PO QD 06/18/2018 03/12/2019 Inactive Generic For:TOPROL X L 25MG TAB SA 12/21/2015 9:08:41 AM amoxicillin 500 mg capsule RxNorm: 422790 1 Capsule(s) PO TID 06/0406/10/2018 Inactive amoxicillin 500 mg capsule RxNorm: 601371 1 Capsule(s) PO TID 06/0406/03/2018 Inactive Skelaxin 800 mg tablet RxNorm: 229501 1 Tablet(s) PO BI D as needed for muscle spasm 05/31/2018 No Stop Date Active levothyroxine 50 mcg tablet RxNorm: 253116 1 Tablet(s) PO QD 201707/25/2018 Inactive Generic For:*SYNTHROID 0.05M G TAB 08/09/2016 8:59:33 AM Toprol XL 25 mg tablet,extended release RxNorm: 204089 1 Tablet (s) PO QD 12/19/2017 06/16/2018 Inactive Generic For:TOPROL X L 25MG TAB SA 12/21/2015 9:08:41 AM ranitidine 150 mg tablet RxNorm: 514950 1 Tablet(s) PO BID 12/12/19 18 05/31/2018 Inactive levothyroxine 50 mcg tablet RxNorm: 895062 1 Tablet(s) PO QD TAKE 1 TABLET BY MOUTH EVERY DAY 08/03/2017 02/02/2018 Inactive Generic For:*SYN THROID 0.05MG TAB 08/09/2016 8:59:33 AM Singulair 10 mg tablet RxNorm: 534308 1 Tablet(s) PO QHS 07/11/2017 0 09/10/2017 Inactive dicyclomine 10 mg capsule RxNorm: 327870 1 Capsule(s) P O TID as needed for abdominal pain 06/08/2017 08/22/2018 Inactive ranitidine 150 mg tablet RxNorm: 340293 1 Tablet(s) PO BID 06/08/19 18 09/05/2017 Inactive Toprol XL 25 mg tablet,extended release RxNorm: 439018 1 Tablet (s) PO QD 06/08/2017 12/19/2017 Inactive Generic For:TOPROL X L 25MG TAB SA 12/21/2015 9:08:41 AM betamethasone dipropionate 0.05 % topical cream RxNorm: 2389 20 1 Application TOP QHS 03/28/2017 10/03/2018 Inactive levothyroxine 50 mcg tablet RxNorm: 422418 1 Tablet(s) PO QD TAKE 1 TABLET BY MOUTH EVERY DAY 02/03/2017 08/01/2017 Inactive Generic For:*SYN THROID 0.05MG TAB 08/09/2016 8:59:33 AM ranitidine 150 mg tablet RxNorm: 846222 1 Tablet(s) PO BID 12/16/19 17 06/08/2017 Inactive Toprol XL 25 mg tablet,extended release RxNorm: 147683 1 Tablet (s) PO QD 12/15/2016 06/08/2017 Inactive Generic For:TOPROL X L 25MG TAB SA 12/21/2015 9:08:41 AM ranitidine 150 mg tablet RxNorm: 393845 1 Tablet(s) PO BID 11/12/19 17 12/10/2016 Inactive ranitidine 75 mg tablet RxNorm: 951567 1 Tablet(s) PO QD 10/21/2016 0 11/10/2016 Inactive ranitidine 75 mg tablet RxNorm: 163370 1 Tablet(s) PO QD 10/21/2016 0 10/20/2016 Inactive Tamiflu 75 mg capsule RxNorm: 649816 1 Capsule(s) PO BID 09/12/2016 0 09/16/2016 Inactive Promethegan 25 mg rectal suppository RxNorm: 130689 1 S uppository RTL Q4H as needed 09/12/2016 03/27/2017 Inactive levothyroxine 50 mcg tablet RxNorm: 998311 TAKE 1 TABLET BY GIDEON TH EVERY DAY 08/09/2016 02/03/2017 Inactive Generic For:*SYNTHRO ID 0.05MG TAB 08/09/2016 8:59:33 AM famotidine 40 mg tablet RxNorm: 283793 1 Tablet(s) PO BID 07/22/2016 10/20/2016 Inactive clotrimazole-betamethasone 1 %-0.05 % topical cream RxNorm: 251179 1 Application TOP BID to rash prn--was supposed to be cream not lotion 06/23/2016 Inactive famotidine 40 mg tablet RxNorm: 283595 1 Tablet(s) PO BID 06/23/2016 07/21/2016 Inactive Toprol XL 25 mg tablet,extended release RxNorm: 674098 1 Tablet (s) PO QD 06/14/2016 12/15/2016 Inactive Generic For:TOPROL X L 25MG TAB SA 12/21/2015 9:08:41 AM dicyclomine 10 mg capsule RxNorm: 907425 1 Capsule(s) P O TID as needed for abdominal pain 04/26/2016 06/07/2017 Inactive dicyclomine 10 mg capsule RxNorm: 610433 1 Capsule(s) P O TID as needed for abdominal pain 04/26/2016 06/08/2017 Inactive famotidine 40 mg tablet RxNorm: 007080 1 Tablet(s) PO QD 04/26/2016 0 06/22/2016 Inactive Protonix 40 mg tablet,delayed release RxNorm: 101854 1 Tablet(s ) PO QD 02/05/2016 03/27/2017 Inactive levothyroxine 50 mcg tablet RxNorm: 237002 1 Tablet(s) PO QD 201507/22/2016 Inactive Toprol XL 25 mg tablet,extended release RxNorm: 286571 TAKE ONE TABLET BY MOUTH EVERY DAY 12/21/2015 06/14/2016 Inactive Generic For:TOPR OL XL 25MG TAB SA 12/21/2015 9:08:41 AM Protonix 40 mg tablet,delayed release RxNorm: 017502 1 Tablet(s ) PO QD 07/27/2015 01/22/2016 Inactive levothyroxine 50 mcg tablet RxNorm: 869091 1 Tablet(s) PO QD 201501/17/2016 Inactive Phenergan 25 mg rectal suppository RxNorm: 558221 1 Sup pository RTL Q4H as needed for nausea and vomiting 07/20/2015 12/08/2015 Inactive Toprol XL 25 mg tablet,extended release RxNorm: 953930 1 Tablet (s) PO QD 06/15/2015 12/11/2015 Inactive clotrimazole-betamethasone 1 %-0.05 % topical cream RxNorm: 877512 1 Application TOP BID to rash prn--was supposed to be cream not lotion 05/20/2015 Inactive Protonix 40 mg tablet,delayed release RxNorm: 402615 1 Tablet(s) 1 Tablet(s) PO QD 04/23/2015 07/27/2015 Inactive levothyroxine 50 mcg tablet RxNorm: 314570 1 Tablet(s) PO QD 201407/21/2015 Inactive Lidoderm 5 % (700 mg/patch) adhesive patch RxNorm: 5275440 1-2 Unit Dose TOP QD on for 12hrs then off for 12hrs 04/23/2015 03/27/2016 Inactive Miralax 17 gram oral powder packet RxNorm: 871276 1/2 U nit Dose PO every other day 03/24/2015 03/29/2015 Inactive levothyroxine 50 mcg tablet RxNorm: 477421 1 Tablet(s) PO QD 201404/19/2015 Inactive dicyclomine 10 mg capsule RxNorm: 685784 1 Capsule(s) P O TID as needed for abdominal pain 02/19/2015 04/25/2016 Inactive dicyclomine 10 mg capsule RxNorm: 356913 1 Capsule(s) P O TID as needed for abdominal pain 12/25/2014 02/18/2015 Inactive Protonix 40 mg tablet,delayed release RxNorm: 358021 1 Tablet(s ) PO BID 12/25/2014 03/04/2015 Inactive levothyroxine 50 mcg tablet RxNorm: 285267 1 Tablet(s) PO QD 201402/18/2015 Inactive Flonase 50 mcg/actuation nasal spray,suspension RxNorm: 8963 23 2 Broad Top NASAL QHS 12/25/2014 10/03/2018 Inactive [SAVINGS FOR NON -COVERED DRUGS -- BIN:[id number], PCN: ASPROD1, Group: XXXXX, ID# [id number], Questions: . THIS IS NOT INSURANCE.] Toprol XL 25 mg tablet,extended release RxNorm: 522099 1 Tablet (s) PO QD 12/01/2014 05/29/2015 Inactive dicyclomine 10 mg capsule RxNorm: 305222 1 Capsule(s) P O TID as needed for abdominal pain 12/01/2014 12/24/2014 Inactive levothyroxine 75 mcg tablet RxNorm: 865389 1 Tablet(s) PO QD 201412/24/2014 Inactive [AttnRPh: Saving apply/adjud icate RxGRP:SG20 RxBIN:[id number] RxPCN: ID#:[id number]] Protonix 40 mg tablet,delayed release RxNorm: 860419 1 Tablet(s) BID 1 Tablet(s) PO QD 11/04/2014 12/24/2014 Inactive dicyclomine 10 mg capsule RxNorm: 721204 1 Capsule(s) P O TID as needed for abdominal pain 11/04/2014 11/30/2014 Inactive Protonix 40 mg tablet,delayed release RxNorm: 349755 Ta blet(s) 1 Tablet(s) PO QD 10/14/2014 11/03/2014 Inactive Flonase 50 mcg/actuation nasal spray,suspension RxNorm: 8963 23 2 Broad Top NASAL QHS 09/01/2014 12/24/2014 Inactive [SAVINGS FOR NON -COVERED DRUGS -- BIN:[id number], PCN: ASPROD1, Group: XXXXX, ID# [id number], Questions: . THIS IS NOT INSURANCE.] Toprol XL 25 mg tablet,extended release RxNorm: 474799 Tablet(s) 1/2 Tablet(s) PO QD 08/28/2014 11/25/2014 Inactive [SAVINGS FOR UNI NSURED PATIENTS -- BIN:327987, PCN: ASPROD1, Group: [id number], ID# [id number], Process claim through [employer], for questions: . THIS IS NOT INSURANCE.] estradiol 0.01% (0.1 mg/gram) vaginal cream RxNorm: 367419 1 Gram(s) VAG Insert vaginally at bedtime, Monday, Monday and Monday06/26/2014 5 Inactive Toprol XL 25 mg tablet,extended release RxNorm: 029573 1/2 Tabl et(s) PO QD 06/06/2014 08/27/2014 Inactive [SAVINGS FOR UNINSUR ED PATIENTS -- BIN:586690, PCN: ASPROD1, Group: [id number], ID# [id number], Process claim through [employer], for questions: . THIS IS NOT INSURANCE.] estradiol 0.5 mg tablet RxNorm: 977893 1 Tablet(s) VAG Place one tablet in the vagina at bedtime three times a week 06/02/2014 06/25/2014 Inactive Estring 2 mg vaginal RxNorm: 402256 VAG Insert vaginall y and remove after 90 days 05/27/2014 06/01/2014 Inactive Toprol XL 25 mg tablet,extended release RxNorm: 353988 1/2 Tabl et(s) PO QD 04/15/2014 04/14/2014 Inactive Protonix 40 mg tablet,delayed release RxNorm: 944261 1 Tablet(s ) PO QD 04/15/2014 10/14/2014 Inactive estradiol 0.5 mg tablet RxNorm: 509568 1 Tablet(s) VAG Place one tablet in the vagina at bedtime twice a week 04/15/2014 06/01/2014 Inactive Toprol XL 25 mg tablet,extended release RxNorm: 459989 1/2 Tabl et(s) PO QD 04/15/2014 06/05/2014 Inactive [SAVINGS FOR UNINSUR ED PATIENTS -- BIN:445776, PCN: ASPROD1, Group: [id number], ID# [id number], Process claim through [employer], for questions: . THIS IS NOT INSURANCE.] levothyroxine 75 mcg tablet RxNorm: 061070 1 Tablet(s) PO QD 201304/07/2014 Inactive [AttnRPh: Saving apply/adjud icate RxGRP:SG20 RxBIN:[id number] RxPCN:HT ID#:[id number]] Flonase 50 mcg/actuation nasal spray,suspension RxNorm: 8963 23 1 Broad Top NASAL BID 04/08/2014 08/31/2014 Inactive levothyroxine 75 mcg tablet RxNorm: 789067 1 Tablet(s) PO QD 201310/04/2014 Inactive [AttnRPh: Saving apply/adjud icate RxGRP:SG20 RxBIN:[id number] RxPCN:HT ID#:[id number]] estradiol 0.5 mg tablet RxNorm: 539578 Tablet(s) PO Debra ce one tablet in the vagina at bedtime one time weekly 04/08/2014 04/07/2014 Inactive levothyroxine 75 mcg tablet RxNorm: 624210 1 Tablet(s) PO QD 201304/07/2014 Inactive [AttnRPh: Saving apply/adjud icate RxGRP:SG20 RxBIN:[id number] RxPCN:HT ID#:[id number]] Skelaxin 800 mg tablet RxNorm: 140089 1 Tablet(s) PO TI D as needed for muscle spasm 03/05/2014 11/03/2014 Inactive alprazolam 0.25 mg tablet RxNorm: 817137 1 Tablet(s) PO Q8H as needed for anxiety 02/27/2014 08/05/2018 Inactive [AttnRPh: Saving apply/adjudicate RxGRP:SG20 RxBIN:[id number] RxPCN:HT ID#:[id number]] Synthroid 75 mcg tablet RxNorm: 683365 1 Tablet(s) PO QD 11/29/2013 0 11/03/2014 Inactive levothyroxine 75 mcg tablet RxNorm: 744814 1 Tablet(s) PO QD -N eed labs 11/27/2013 03/19/2014 Inactive [AttnRPh: Saving jessica ly/adjudicate RxGRP:SG20 RxBIN:[id number] RxPCN:HT ID#:[id number]] Protonix 40 mg tablet,delayed release RxNorm: 740190 1 Tablet(s ) PO QD 10/07/2013 04/04/2014 Inactive Synthroid 75 mcg tablet RxNorm: 518017 1 Tablet(s) PO QD 09/02/2013 0 11/28/2013 Inactive Zithromax 500 mg tablet RxNorm: 265542 1 Tablet(s) PO QD 07/29/2013 0 08/04/2013 Inactive prednisone 20 mg tablet RxNorm: 744613 1 Tablet(s) PO QD 07/29/2013 0 08/02/2013 Inactive Synthroid 75 mcg tablet RxNorm: 370130 1 Tablet(s) PO Q D Patient wants it put on hold 05/14/2013 09/02/2013 Inactive Synthroid 75 mcg tablet RxNorm: 337704 1 Tablet(s) PO QD 05/01/2013 1 07/14/2012 Inactive Flagyl 500 mg tablet RxNorm: 495599 1 Tablet(s) PO BID 03/20/2013 Inactive Cipro 500 mg tablet RxNorm: 280332 1 Tablet(s) PO QD 03/20/201304/02 Inactive levothyroxine 75 mcg tablet RxNorm: 161271 1 Tablet(s) PO QD 201205/03/2013 Inactive Septra DS 800 mg-160 mg tablet RxNorm: 920495 1 Tablet(s) PO BI D antibiotic 11/05/2012 11/09/2012 Inactive Bystolic 5 mg tablet RxNorm: 055341 1 Tablet(s) PO QD 10/10/20120 08/2018 Inactive Bystolic 5 mg tablet RxNorm: 436078 1 Tablet(s) PO QD 10/10/20120 02/2013 Inactive Protonix 40 mg tablet,delayed release RxNorm: 369389 1 Tablet(s ) PO QD 09/24/2012 09/18/2013 Inactive Synthroid 75 mcg tablet RxNorm: 483991 1 Tablet(s) PO QD 08/01/2012 0 09/23/2012 Inactive Synthroid 75 mcg tablet RxNorm: 956414 1 Tablet(s) PO QD Brand name only 07/03/2012 07/31/2012 Inactive Skelaxin 800 mg tablet RxNorm: 768508 1 Tablet(s) PO TID prn spasm 05/02/2012 03/04/2014 Inactive Zithromax Z-Leonel 250 mg tablet RxNorm: 326079 Tablet(s) PO As Di rected 04/12/2012 05/01/2012 Inactive levothyroxine 75 mcg tablet RxNorm: 237983 1 Tablet(s) PO QD 201108/05/2018 Inactive levothyroxine 75 mcg tablet RxNorm: 534660 1 Tablet(s) PO QD 201107/01/2012 Inactive Ultram 50 mg tablet RxNorm: 940233 1-2 Tablet(s) PO TID as need ed for migraine 04/03/2012 11/03/2014 Inactive Vimovo 500 mg-20 mg tablets,immediate & delayed release RxNo rm: 666711 1 Tablet(s) PO BID for pain 03/28/2012 07/25/2012 Inactive levothyroxine 75 mcg tablet RxNorm: 810675 1 Tablet(s) PO QD 201104/02/2012 Inactive levothyroxine 50 mcg tablet RxNorm: 084268 1 Tablet(s) PO QD 201109/23/2012 Inactive levothyroxine 50 mcg tablet RxNorm: 974877 1 Tablet(s) PO QD 201101/31/2012 Inactive Septra DS 800 mg-160 mg Tab RxNorm: 658086 1 Tablet(s) PO BID 11/2111/26/2011 Inactive mupirocin 2 % Ointment RxNorm: 314682 1 Application TOP TID 012 11/28/2011 Inactive Protonix 40 mg tablet,delayed release RxNorm: 469426 1 Tablet(s ) PO QD 09/13/2011 09/24/2012 Inactive hydrocodone-acetaminophen 5 mg-500 mg Tab RxNorm: 778061 1 Tablet(s) PO Q4-6H as needed for pain 07/13/2011 11/21/2011 Inactive Skelaxin 800 mg tablet RxNorm: 879198 1 Tablet(s) PO TID prn spasm 06/30/2011 11/21/2011 Inactive Skelaxin 800 mg Tab RxNorm: 977142 1 Tablet(s) PO TID prn spasm No Stop Date Active potassium chloride ER 10 mEq Cap RxNorm: 3767856 2 Capsule(s) PO QD 12/30/2010 01/30/2011 Inactive potassium chloride ER 10 mEq Cap RxNorm: 3637515 1 Capsule(s) PO QD 12/29/2010 12/29/2010 Inactive Take 2 tablets by mouth on M , Monday, Monday and 1 tablet by mouth on Monday, , Monday and Monday Premarin 0.9 mg Tab RxNorm: 811913 1 Tablet(s) PO QD 12/09/201001/07 Inactive potassium chloride ER 10 mEq Cap RxNorm: 3378171 1 Capsule(s) PO QD 12/07/2010 No Stop Date Active Take 2 tablets by mouth on M , Monday, Monday and 1 tablet by mouth on Monday, , Monday and Monday promethazine 12.5 mg Rectal Suppository RxNorm: 058001 1 Applic ation RTL Q6-8H 12/07/2010 12/16/2010 Inactive prn nausea and vomit ing potassium chloride ER 10 mEq Cap RxNorm: 8039975 1 Capsule(s) PO QD 12/03/2010 No Stop Date Active MWF take 2 tablets daily. T nighat one tablet daily on other days. Protonix 40 mg Tab RxNorm: 677895 1 Tablet(s) PO QD 09/27/20102011 Inactive cefdinir 300 mg Cap RxNorm: 251127 2 Capsule(s) PO QD 08/05/201007/2010 Inactive cefdinir 300 mg Cap RxNorm: 806391 2 Capsule(s) PO QD 08/05/201008/03 Inactive Premarin 1.25 mg Tab RxNorm: 879124 1 Tablet(s) PO QD 06/14/201012/2010 Inactive lisinopril-hydrochlorothiazide 10 mg-12.5 mg Tab RxNorm: 072354 1 Tablet(s) PO 06/07/2010 11/04/2010 Inactive alprazolam 0.25 mg Tab RxNorm: 476010 1 Tablet(s) PO TI D written script provided to patient. 05/24/2010 06/22/2010 Inactive Treximet 85 mg-500 mg Tab RxNorm: 753500 1 Tablet(s) PO PRN 010 09/23/2012 Inactive lisinopril-hydrochlorothiazide 20 mg-12.5 mg Tab RxNorm: 197 886 1 Tablet(s) PO QD 05/12/2010 11/04/2010 Inactive alprazolam 0.25 mg Tab RxNorm: 940489 1 Tablet(s) PO TI D written script provided to patient. 04/19/2010 05/23/2010 Inactive Macrobid 100 mg Cap RxNorm: 1223824 1 Capsule(s) PO BID 04/08/2010 Inactive Premarin 1.25 mg Tab RxNorm: 620403 1 Tablet(s) PO QD 03/22/201002/2011 Inactive Amitriptyline 10 mg Tab RxNorm: 720736 1 Tablet(s) PO QD 03/22/2010 0 06/19/2010 Inactive Protonix 40 mg Tab RxNorm: 022462 1 Tablet(s) PO QD 03/22/20102010 Inactive alprazolam 0.25 mg Tab RxNorm: 506636 1 Tablet(s) PO TID 03/10/2010 1 06/08/2009 Inactive Macrobid 100 mg Cap RxNorm: 6261693 1 Capsule(s) PO QD 03/09/2010 Inactive Bystolic 5 mg Tab RxNorm: 520070 1 Tablet(s) PO QD Fi ll at 30 if insurance will not accept 03/01/2010 11/04/2010 Inactive Protonix 40 mg Tab RxNorm: 133571 1 Tablet(s) PO QD 11/23/20092009 Inactive Premarin 1.25 mg Tab RxNorm: 271845 1 Tablet(s) PO QD 11/23/200912/03 Inactive Bentyl 10 mg Cap RxNorm: 550946 1 Capsule(s) PO QID 11/23/20092010 Inactive Elavil 10 mg Tab RxNorm: 433648 1 Tablet(s) PO QPM 11/19/2009 011 Inactive Estrace 0.01% (0.1 mg/gram) vaginal cream RxNorm: 649154 1 Application VAG weekly No Start Date Active Protonix 40 mg tablet,delayed release RxNorm: 371674 1 Tablet(s ) PO QD No Start Date Active fluticasone propionate 50 mcg/actuation nasal spray,suspensi on RxNorm: 2810702 2 Broad Top NASAL QD No Start Date Active Vitamin D3 2,000 unit tablet RxNorm: 329757 1 Tablet(s) PO QD No Star t Date Active BIOFREEZE Top RxNorm: Topical No Start Date Active multivitamin chewable tablet RxNorm: 1 Tablet(s) PO QD No Start Date Active Estring 2 mg vaginal RxNorm: 624407 VAG Insert vaginall y and remove after 90 days No Start Date 05/26/2014 Inactive Premarin 0.625 mg tablet RxNorm: 212444 1 Tablet(s) PO QD No Start Date 04/07/2014 Inactive Miralax 17 gram/dose oral powder RxNorm: 935973 1 capful PO QD No S tart Date 08/05/2018 Inactive diazepam 5 mg tablet RxNorm: 960416 2 Tablet(s) PO before MRI No St art Date 10/03/2018 Inactive Protonix 40 mg tablet,delayed release RxNorm: 274938 1 Tablet(s ) PO QD No Start Date 07/26/2015 Inactive B12 sublingual RxNorm: 14756 sublingual No Start Date 03/27/2017 Inact adrian Treximet 85 mg-500 mg Tab RxNorm: 090946 Tablet(s) PO PRN No Start Date 05/11/2010 Inactive Gemma 180 mg Tab RxNorm: 865950 1 Tablet(s) PO QD No Start Date Inactive Cranberry Concentrate capsule RxNorm: 1 Capsule(s) PO QD No St art Date 07/02/2019 Inactive Gemma Allergy 180 mg tablet RxNorm: 506378 1 Tablet(s) PO QD No S tart Date 08/31/2014 Inactive estradiol 0.01% (0.1 mg/gram) vaginal cream RxNorm: 673381 1 Gram(s) VAG Insert vaginally at bedtime, Monday, Monday and Monday No Start Date 5 Inactive Tylenol Ex Str Arthritis Pain 500 mg tablet RxNorm: 821285 2 Ta blet(s) PO TID No Start Date 08/05/2018 Inactive Toprol XL 25 mg tablet,extended release RxNorm: 822816 1 Tablet (s) PO QD No Start Date 11/30/2014 Inactive Ultram 50 mg tablet RxNorm: 963775 1-2 Tablet(s) PO TID as need ed for migraine No Start Date 04/02/2012 Inactive Premarin 0.9 mg Tab RxNorm: 740008 1 Tablet(s) PO QD No Start Date Inactive Xyzal 5 mg tablet RxNorm: 197753 1 Tablet(s) PO QD No Start Date 06/06 Inactive Bystolic 5 mg Tab RxNorm: 246113 1/2 Tablet(s) PO QD No Start Date Inactive Ondansetron HCl 4 mg Tab RxNorm: 355731 1 Tablet(s) PO TID or every 8hrs as needed for nausea No Start Date 11/21/2011 Inactive Protonix 40 mg tablet,delayed release RxNorm: 959414 1 Tablet(s ) PO BID No Start Date 12/24/2014 Inactive potassium chloride ER 10 mEq Cap RxNorm: 6651737 1 Capsule(s) PO QD No Start Date 12/02/2010 Inactive Miralax 17 gram/dose oral powder RxNorm: 680331 1 capful PO QD No S tart Date 03/29/2015 Inactive levothyroxine 75 mcg tablet RxNorm: 691866 1 Tablet(s) PO QD si x days a week No Start Date 12/24/2014 Inactive Cenestin 1.25 mg Tab RxNorm: 326356 1 Tablet(s) PO QD No Start Date 0 01/03/2010 Inactive calcium-vitamin D3 500 mg oral wafer RxNorm: 1 Tablet(s) PO QD No Start Date 12/08/2015 Inactive Vimovo 500 mg-20 mg tablet,immediate & delayed release RxNor m: 238578 1 Tablet(s) PO QD No Start Date 11/03/2014 Inactive alprazolam 0.25 mg tablet RxNorm: 754722 1 Tablet(s) PO Q8H as needed for anxiety/stress No Start Date 12/24/2014 Inactive levothyroxine 50 mcg tablet RxNorm: 241817 1 Tablet(s) PO QD No Sta rt Date 06/23/2019 Inactive betamethasone dipropionate 0.05 % topical cream RxNorm: 2389 20 1 Application TOP QHS No Start Date 03/27/2017 Inactive meloxicam 15 mg tablet RxNorm: 223956 1 Tablet(s) PO QD as needed N o Start Date 04/11/2019 Inactive cetirizine 10 mg capsule RxNorm: 7600972 1 Capsule(s) PO QD No Star t Date 09/10/2017 Inactive Skelaxin 800 mg Tab RxNorm: 649906 Tablet(s) PO PRN No Start Date Inactive Zithromax Z-Leonel 250 mg tablet RxNorm: 383181 Tablet(s) PO As Di rected No Start Date 04/11/2012 Inactive Zithromax Z-Leonel 250 mg Tab RxNorm: 714584 Tablet(s) PO as direc sheridan No Start Date 11/15/2010 Inactive Gemma 180 mg tablet RxNorm: 781169 1 Tablet(s) PO QD No Start Date 12/24/2014 Inactive Anusol-HC 2.5 % Rectal Cream RxNorm: 799161 Application RTL BID for 1wk No Start Date 12/19/2011 Inactive metoprolol succinate ER 25 mg 24 hr Tab RxNorm: 144973 1/2 Tabl et(s) PO QD No Start Date 10/03/2012 Inactive clotrimazole-betamethasone 1 %-0.05 % Lotion RxNorm: 247719 Application TOP BID to rash No Start Date 05/15/2011 Inactive ranitidine 150 mg tablet RxNorm: 793301 1 Tablet(s) PO QD No Start Date 12/06/2018 Inactive ranitidine 150 mg tablet RxNorm: 132543 1 Tablet(s) PO BID No Start Date 11/10/2016 Inactive promethazine 12.5 mg Rectal Suppository RxNorm: 449426 1 Applic ation RTL Q6-8H No Start Date 12/06/2010 Inactive Maxalt-[employer] 10 mg disintegrating tablet RxNorm: 836897 1 Tablet(s) PO at headache onset--may repeat in 2hrs if needed No Start Date 12/24/2014 Inactive Benadryl 25 mg capsule RxNorm: 1575778 Capsule(s) PO as needed No S tart Date 12/24/2014 Inactive Cranberry Concentrate 500 mg capsule RxNorm: 723338 1 Capsule(s ) PO QD No Start Date 09/10/2017 Inactive Mobic 15 mg tablet RxNorm: 960653 1 Tablet(s) PO on opposite da ys of Aleve No Start Date 11/20/2018 Inactive Bystolic 5 mg tablet RxNorm: 896493 1 Tablet(s) PO QD No Start Date 0 10/09/2012 Inactive Premarin 1.25 mg Tab RxNorm: 768205 1 Tablet(s) PO QD No Start Date 1 Inactive clotrimazole-betamethasone 1 %-0.05 % topical cream RxNorm: 269285 Application TOP BID to rash prn--was supposed to be cream not lotion No Start Date 12/19/2011 Inactive azithromycin 250 mg Tab RxNorm: 501789 2 Tablet(s) PO Q D take 2 tablets (500 mg) by oral route once daily for 1 day then 1 tablet (250 mg) by oral route once daily for 4 days No Start Date 06/06/2010 Inactive hydrocodone-acetaminophen 5 mg-500 mg Tab RxNorm: 734408 1 Tablet(s) PO Q4-6H as needed for pain No Start Date 07/12/2011 Inactive Levbid 0.375 mg 12 hr Tab RxNorm: 4694241 1 Tablet(s) PO BID as needed for stomach cramping No Start Date 11/21/2011 Inactive Phenergan 25 mg rectal suppository RxNorm: 044857 1 Sup pository RTL Q4H as needed for nausea and vomiting No Start Date 07/19/2015 Inactive baclofen 10 mg tablet RxNorm: 103789 1 Tablet(s) PO QHS No Start Da te 11/03/2014 Inactive loratadine 10 mg tablet RxNorm: 951057 1 Tablet(s) PO QD No Start D ate 10/03/2018 Inactive famotidine 40 mg tablet RxNorm: 276565 1 Tablet(s) PO BID No Start Date 06/22/2016 Inactive Zithromax Z-Leonel 250 mg Tab RxNorm: 850355 Tablet(s) PO as direc sheridan No Start Date 11/15/2010 Inactive Singulair 10 mg tablet RxNorm: 963857 1 Tablet(s) PO QHS No Start D ate 07/10/2017 Inactive Premarin 0.625 mg/g Vaginal Cream RxNorm: 660411 1 Gram (s) VAG QHS 2-3 times weekly No Start Date 01/05/2011 Inactive Alprazolam 0.25 mg Tab RxNorm: 350978 1 Tablet(s) PO TID No Start D ate 03/09/2010 Inactive Claritin 10 mg tablet RxNorm: 733626 1 Tablet(s) PO QD No Start Date 11/03/2014 Inactive Medication Administered No Medication Administered data Immunizations Vaccine Codes Date Status Influenza CVX: 141 03/22/2018 Complete Tetanus, Diptheria, Pertussis CVX: 115 12/28/2017 Co mplete Zoster Unknown 10/04/2017 Complete Influenza CVX: 141 03/28/2017 Complete Influenza CVX: 141 04/22/2016 Complete Influenza CVX: 141 03/09/2015 Influenza CVX: 141 06/29/2011 Pediatric Influenza CVX: 141 06/29/2011 Influenza (Adult) CVX: 141 03/09/2010 Results Observation Observation Code Item Item Code Result Date S ervice Location GFR CALC 6762135 GFR AA >60 ML/MIN 01/14/2011 Unknown GFR CALC 1118797 GFR NON-AA >60 ML/MIN 01/14/2011 Unknown COMPREHENSIVE METABOLIC 54358 AST 15 U/L 2010 Unknown COMPREHENSIVE METABOLIC 01917 ALT 17 IU/L 2010 Unknown COMPREHENSIVE METABOLIC 68818 BUN 12 MG/DL 2010 Unknown COMPREHENSIVE METABOLIC 06279 ALBUMIN 4.0 GM/DL 2010 Unknown COMPREHENSIVE METABOLIC 59916 CHLORIDE 101 MMOL/L 01/14 Unknown COMPREHENSIVE METABOLIC 67713 BILI TOT 0.3 MG/DL 2010 Unknown COMPREHENSIVE METABOLIC 11737 ALK PHOS 53 U/L 2010 Unknown COMPREHENSIVE METABOLIC 56187 SODIUM 136 MMOL/L 01/14 Unknown COMPREHENSIVE METABOLIC 16496 CREATININE 0.60 MG/DL 01/03 Unknown COMPREHENSIVE METABOLIC 72562 CALCIUM 9.3 MG/DL 2010 Unknown COMPREHENSIVE METABOLIC 07714 POTASSIUM 4.1 MMOL/L 01/14 Unknown COMPREHENSIVE METABOLIC 22836 PROT TOT 7.0 GM/DL 2010 Unknown COMPREHENSIVE METABOLIC 91881 Glucose 92 MG/DL 2010 Unknown COMPREHENSIVE METABOLIC 69455 BICARB 27 MMOL/L 2010 Unknown COMPREHENSIVE METABOLIC 55426 ANION GAP 8 MEQ/L 2010 Unknown ERYTHROCYTE SEDIMENTATION RATE 61479 ESR 39 MM/HR 01/05/2011 Unknown COMPREHENSIVE METABOLIC 60306 AST 16 U/L 2010 Unknown COMPREHENSIVE METABOLIC 46341 ALT 19 U/L 2010 Unknown COMPREHENSIVE METABOLIC 92563 BUN 15 MG/DL 2010 Unknown COMPREHENSIVE METABOLIC 25442 ALBUMIN 3.8 GM/DL 2010 Unknown COMPREHENSIVE METABOLIC 99699 CHLORIDE 101 MMOL/L 01/05 Unknown COMPREHENSIVE METABOLIC 96582 BILI TOT 0.3 MG/DL 2010 Unknown COMPREHENSIVE METABOLIC 83002 ALK PHOS 55 U/L 2010 Unknown COMPREHENSIVE METABOLIC 67947 SODIUM 139 MMOL/L 01/05 Unknown COMPREHENSIVE METABOLIC 29032 CREATININE 0.59 MG/DL 08/2010 Unknown COMPREHENSIVE METABOLIC 64970 CALCIUM 8.9 MG/DL 2010 Unknown COMPREHENSIVE METABOLIC 36146 POTASSIUM 3.8 MMOL/L 01/05 Unknown COMPREHENSIVE METABOLIC 80825 PROT TOT 6.7 GM/DL 2010 Unknown COMPREHENSIVE METABOLIC 18996 Glucose 121 MG/DL 2010 Unknown COMPREHENSIVE METABOLIC 14807 BICARB 28 MMOL/L 2010 Unknown COMPREHENSIVE METABOLIC 58264 ANION GAP 10 MMOL/L 2010 Unknown GFR CALC 9538003 GFR AA >60 ML/MIN 01/05/2011 Unknown GFR CALC 6329169 GFR NON-AA >60 ML/MIN 01/05/2011 Unknown COMPLETE BLOOD COUNT 76504 WBC 8.7 10e9/L 01/06/20 11 Unknown COMPLETE BLOOD COUNT 15699 RBC 4.78 10e12/L 2010 Unknown COMPLETE BLOOD COUNT 54102 HGB 13.3 g/dL 1 Unknown COMPLETE BLOOD COUNT 93077 HCT DET 40.6 % 1 Unknown COMPLETE BLOOD COUNT 10285 MCV 84.9 fL 1 Unknown COMPLETE BLOOD COUNT 36058 MCH 27.8 pg 1 Unknown COMPLETE BLOOD COUNT 56896 MCHC 32.8 g/dL 1 Unknown COMPLETE BLOOD COUNT 75373 PLT 273 10e9/L 01/06/20 11 Unknown COMPLETE BLOOD COUNT 60479 MPV 9.8 fL 1 Unknown COMPLETE BLOOD COUNT 61324 AMANDA % 65.9 % 1 Unknown COMPLETE BLOOD COUNT 74558 LY % 24.5 % 1 Unknown COMPLETE BLOOD COUNT 24954 MON % 6.9 % 1 Unknown COMPLETE BLOOD COUNT 39039 EOS % 2.1 % 1 Unknown COMPLETE BLOOD COUNT 68804 BASO % 0.6 % 1 Unknown COMPLETE BLOOD COUNT 56596 RDW 14.7 % 1 Unknown COMPLETE BLOOD COUNT 57297 ABS AMANDA 5.73 10e9/L 011 Unknown COMPLETE BLOOD COUNT 34077 ABS LYMPH 2.13 10e9/L 011 Unknown COMPLETE BLOOD COUNT 99924 ABS MONO 0.60 10e9/L 011 Unknown COMPLETE BLOOD COUNT 07712 ABS EOS 0.18 10e9/L 011 Unknown COMPLETE BLOOD COUNT 93596 ABS BASO 0.05 10e9/L 011 Unknown COMPLETE BLOOD COUNT 06492 RDW-SD 44.7 fL 1 Unknown NO UA [id number] NO UA CANCELED 07/08/2010 Unknown Procedures Procedure Codes Date URINALYSIS NONAUTO W/O SCOPE CPT-4: 26841 04/12/2019 URINE CULTURE/ COLONY COUNT CPT-4: 05087 04/12/2019 URINE CULTURE/ COLONY COUNT CPT-4: 11893 01/14/2019 URINALYSIS NONAUTO W/O SCOPE CPT-4: 03385 01/14/2019 INITIAL PREVENTIVE EXAM CPT-4: G0402 11/21/2018 URINALYSIS NONAUTO W/O SCOPE CPT-4: 87176 11/01/2018 URINE CULTURE/ COLONY COUNT CPT-4: 47439 11/01/2018 URINE CULTURE/ COLONY COUNT CPT-4: 48664 06/13/2018 URINALYSIS NONAUTO W/O SCOPE CPT-4: 08467 05/31/2018 URINE CULTURE/ COLONY COUNT CPT-4: 27204 05/31/2018 IIV4 VACCINE 3 YRS+ IM AND UP CPT-4: 73264 03/22/2018 IMMUNIZATION ADMIN CPT-4: 89827 03/22/2018 TDAP VACCINE 7 YRS/> IM CPT-4: 74022 12/28/2017 IMMUNIZATION ADMIN CPT-4: 87544 12/28/2017 SHINGRIX HZV VACC RECOMBINANT IM CPT-4: 84766 018 IMMUNIZATION ADMIN CPT-4: 80635 10/04/2017 IIV4 VACCINE 3 YRS+ IM AND UP CPT-4: 65742 03/28/2017 IMMUNIZATION ADMIN CPT-4: 11648 03/28/2017 INFLUENZA ASSAY W/OPTIC CPT-4: 98570 09/12/2016 FLU VACCINE 3 YRS & > IM UP 64 CPT-4: 61341 6 IMMUNIZATION ADMIN CPT-4: 47808 04/22/2016 OCCULT BLOOD FECES CPT-4: 48539 01/04/2016 THER/PROPH/DIAG INJ SC/IM CPT-4: 03245 07/20/2015 PROMETHAZINE HCL INJECTION CPT-4: J2550 07/20/2015 FLU VACCINE 3 YRS & > IM UP 64 CPT-4: 38941 5 IMMUNIZATION ADMIN CPT-4: 85134 03/09/2015 URINALYSIS NONAUTO W/O SCOPE CPT-4: 08450 07/10/2014 URINE CULTURE/ COLONY COUNT CPT-4: 20074 07/10/2014 URINE CULTURE/ COLONY COUNT CPT-4: 07809 07/14/2011 URINALYSIS NONAUTO W/O SCOPE CPT-4: 49563 07/14/2011 FLU VACCINE 3 YRS & > IM UP 64 CPT-4: 23363 2 IMMUNIZATION ADMIN CPT-4: 59621 06/28/2011 URINALYSIS NONAUTO W/O SCOPE CPT-4: 76825 03/23/2011 URINE CULTURE/ COLONY COUNT CPT-4: 39180 03/23/2011 ROUTINE VENIPUNCTURE CPT-4: 81413 01/14/2011 COMPREHEN METABOLIC PANEL CPT-4: 01326 01/14/2011 ROUTINE VENIPUNCTURE CPT-4: 73615 01/05/2011 COMPLETE CBC W/AUTO DIFF WBC CPT-4: 92180 01/05/2011 RBC SED RATE AUTOMATED CPT-4: 94999 01/05/2011 COMPREHEN METABOLIC PANEL CPT-4: 60469 01/05/2011 URINALYSIS NONAUTO W/O SCOPE CPT-4: 16233 11/16/2010 URINE CULTURE/ COLONY COUNT CPT-4: 56564 11/16/2010 DRAIN/INJECT JOINT/BURSA CPT-4: 46420 11/04/2010 TRIAMCINOLONE ACET INJ NOS CPT-4: J3301 11/04/2010 METHYLPREDNISOLONE 80 MG INJ CPT-4: J1040 11/04/2010 URINALYSIS NONAUTO W/O SCOPE CPT-4: 15589 07/05/2010 URINE CULTURE/ COLONY COUNT CPT-4: 09979 07/05/2010 URINALYSIS NONAUTO W/O SCOPE CPT-4: 18759 06/28/2010 URINE CULTURE/ COLONY COUNT CPT-4: 34977 06/28/2010 URINALYSIS NONAUTO W/O SCOPE CPT-4: 50279 06/14/2010 URINE CULTURE/ COLONY COUNT CPT-4: 71387 06/14/2010 URINE CULTURE/ COLONY COUNT CPT-4: 55678 04/19/2010 OCCULT BLOOD FECES CPT-4: 45061 04/12/2010 URINALYSIS NONAUTO W/O SCOPE CPT-4: 04039 04/08/2010 URINE CULTURE/ COLONY COUNT CPT-4: 29463 04/08/2010 ASSAY, GLUCOSE, BLOOD QUANT CPT-4: 89437 03/09/2010 URINALYSIS NONAUTO W/O SCOPE CPT-4: 70215 03/09/2010 FLU VACCINE 3 YRS & > IM UP 64 CPT-4: 11592 0 IMMUNIZATION ADMIN CPT-4: 72740 03/09/2010 URINALYSIS NONAUTO W/O SCOPE CPT-4: 99124 09/29/2009 URINALYSIS NONAUTO W/O SCOPE CPT-4: 41603 08/12/2009 Vital Signs Date Vital 07/03/2019 Blood [...] 1: 130/70 Code: 8480-6 BMI: 29.6 Code: 97264-2 Heart Rate 1: 76 bpm Height: 5'2" [...] 1: 126/62 Code: 8480-6 BMI: 29.6 Code: 52019-8 Heart Rate 1: 88 bpm Height: 5'3" Respiratory Rate: 20 bpm Temperature: 36 .8 (C) / 98.3 (F) Weight: 167 lbs 05/31/2018 Blood Pressure 1: 140/80 Code: 8480-6 Heart Rate 1: 74 bpm Respiratory Rate: 16 bpm SpO2: 97% Temperature: 36.3 (C) / 97.3 (F) We ight: 165 lbs 02/06/2018 Blood Pressure 1: 124/78 Code: 8480-6 BMI: 29.8 Code: 83783-6 Heart Rate 1: 84 bpm Height: 5'3" Respiratory Rate: 20 bpm SpO2: 97% Tempera ture: 36.6 (C) / 97.8 (F) Weight: 168 lbs 12/18/2017 Blood Pressure 1: 116/78 Code: 8480-6 BMI: 29.6 Code: 35695-0 Heart Rate 1: 88 bpm Height: 5'3" Respiratory Rate: 20 bpm Temperature: 36 .6 (C) / 97.9 (F) Weight: 167 lbs 12/11/2017 Blood Pressure 1: 122/76 Code: 8480-6 He art Rate 1: 78 bpm 09/11/2017 Blood Pressure 1: 126/82 Code: 8480-6 BMI: 29.1 Code: 46415-0 Heart Rate 1: 68 bpm Height: 5'3" Respiratory Rate: 20 bpm SpO2: 96% Tempera ture: 36.6 (C) / 97.9 (F) Weight: 164 lbs 03/28/2017 Blood Pressure 1: 114/64 Code: 8480-6 BMI: 27.8 Code: 15592-8 Heart Rate 1: 76 bpm Height: 5'3" Respiratory Rate: 20 bpm SpO2: 98% Tempera ture: 36.4 (C) / 97.6 (F) Weight: 157 lbs 09/12/2016 Blood Pressure 1: 126/70 Code: 8480-6 BMI: 29.9 Code: 40070-5 Heart Rate 1: 92 bpm Height: 5'3" Respiratory Rate: 20 bpm SpO2: 97% Tempera ture: 37.0 (C) / 98.6 (F) Weight: 168 lbs 9 oz 07/28/2016 Blood Pressure 1: 128/74 Code: 8480-6 Heart Rate 1: 92 bpm Respiratory Rate: 24 bpm SpO2: 96% Temperature: 36.4 (C) / 97.6 (F) We ight: 168 lbs 04/26/2016 Blood Pressure 1: 116/74 Code: 8480-6 BMI: 29.9 Code: 96657-6 Heart Rate 1: 92 bpm Height: 5'3" Respiratory Rate: 20 bpm Temperature: 36 .9 (C) / 98.4 (F) Weight: 169 lbs 12/09/2015 Blood Pressure 1: 116/72 Code: 8480-6 BMI: 31.7 Code: 97312-2 Heart Rate 1: 80 bpm Height: 5'3" Respiratory Rate: 20 bpm Temperature: 36 .6 (C) / 97.9 (F) Weight: 179 lbs 09/10/2015 Blood Pressure 1: 122/78 Code: 8480-6 BMI: 32.2 Code: 97667-0 Heart Rate 1: 88 bpm Height: 5'3" Respiratory Rate: 20 bpm Temperature: 37 .3 (C) / 99.1 (F) Weight: 182 lbs 04/23/2015 Blood Pressure 1: 126/70 Code: 8480-6 BMI: 31.2 Code: 34384-1 Heart Rate 1: 92 bpm Height: 5'3" Respiratory Rate: 20 bpm Temperature: 36 .8 (C) / 98.2 (F) Weight: 176 lbs 03/24/2015 Blood Pressure 1: 126/78 Code: 8480-6 BMI: 31.2 Code: 22422-4 Heart Rate 1: 80 bpm Height: 5'3" Respiratory Rate: 22 bpm Temperature: 36 .1 (C) / 96.9 (F) Weight: 176 lbs 03/05/2015 Blood Pressure 1: 132/80 Code: 8480-6 BMI: 31.5 Code: 17495-2 Heart Rate 1: 92 bpm Height: 5'2" Respiratory Rate: 20 bpm Temperature: 36 .4 (C) / 97.6 (F) Weight: 175 lbs 02/19/2015 Blood Pressure 1: 134/80 Code: 8480-6 BMI: 31.5 Code: 11450-1 Heart Rate 1: 88 bpm Height: 5'2" Respiratory Rate: 20 bpm Temperature: 36 .7 (C) / 98.0 (F) Weight: 175 lbs 12/25/2014 Blood Pressure 1: 122/80 Code: 8480-6 BMI: 31.0 Code: 20212-3 Heart Rate 1: 88 bpm Height: 5'2" Respiratory Rate: 20 bpm Temperature: 36 .6 (C) / 97.8 (F) Weight: 172 lbs 11/26/2014 Blood Pressure 1: 116/68 Code: 8480-6 BMI: 30.2 Code: 77642-0 Heart Rate 1: 76 bpm Height: 5'2" Respiratory Rate: 20 bpm Temperature: 36 .5 (C) / 97.7 (F) Weight: 168 lbs 11/04/2014 Blood Pressure 1: 116/64 Code: 8480-6 BMI: 30.8 Code: 62588-1 Heart Rate 1: 92 bpm Height: 5'2" Respiratory Rate: 20 bpm Temperature: 36 .7 (C) / 98.1 (F) Weight: 171 lbs 09/01/2014 Blood Pressure 1: 130/82 Code: 8480-6 BMI: 30.6 Code: 30856-8 Heart Rate 1: 92 bpm Height: 5'2" Respiratory Rate: 20 bpm Temperature: 36 .9 (C) / 98.4 (F) Weight: 170 lbs 06/02/2014 Blood Pressure 1: 126/80 Code: 8480-6 BMI: 30.2 Code: 81026-1 Heart Rate 1: 88 bpm Height: 5'2" Respiratory Rate: 20 bpm Temperature: 36 .7 (C) / 98.1 (F) Weight: 168 lbs 05/26/2014 Blood Pressure 1: 132/78 Code: 8480-6 He art Rate 1: 74 bpm 04/08/2014 Blood Pressure 1: 156/94 Code: 8480-6 BMI: 30.2 Code: 38746-9 Heart Rate 1: 96 bpm Height: 5'2" Respiratory Rate: 20 bpm Temperature: 37 .1 (C) / 98.7 (F) Weight: 168 lbs 03/05/2014 Blood Pressure 1: 144/86 Code: 8480-6 BMI: 29.9 Code: 12371-3 Heart Rate 1: 100 bpm Height: 5'2" Respiratory Rate: 20 bpm Temperature: 36 .7 (C) / 98.1 (F) Weight: 166 lbs 07/29/2013 Blood Pressure 1: 124/80 Code: 8480-6 Heart Rate 1: 92 bpm Respiratory Rate: 20 bpm Temperature: 36.2 (C) / 97.2 (F) Weight: 167 lbs 03/20/2013 Blood Pressure 1: 116/84 Code: 8480-6 BMI: 30.8 Code: 46502-7 Heart Rate 1: 96 bpm Height: 5'3" Respiratory Rate: 20 bpm Temperature: 36 .6 (C) / 97.8 (F) Weight: 174 lbs 02/12/2013 Blood Pressure 1: 122/80 Code: 8480-6 BMI: 30.5 Code: 31070-4 Heart Rate 1: 112 bpm Height: 5'3" Respiratory Rate: 20 bpm Temperature: 36 .9 (C) / 98.4 (F) Weight: 172 lbs 11/05/2012 BMI: 31.2 Code: 51098-3 Height: 5'3" Weight: 176 lbs 10/04/2012 Heart Rate 1: 84 bpm Height: 5'3" Respiratory Rate: 20 bpm Temperature: 36.8 (C) / 98.3 (F) Weight: 09/24/2012 Blood Pressure 1: 122/88 Code: 8480-6 BMI: 30.8 Code: 91378-6 Heart Rate 1: 80 bpm Height: 5'3" Respiratory Rate: 20 bpm Temperature: 36 .8 (C) / 98.2 (F) Weight: 174 lbs 05/10/2012 Blood Pressure 1: 124/68 Code: 8480-6 BMI: 30.1 Code: 76152-8 Heart Rate 1: 64 bpm Height: 5'3" Temperature: 36.6 (C) / 97.8 (F) Weight: 170 lbs 03/07/2012 Blood Pressure 1: 132/78 Code: 8480-6 BMI: 29.2 Code: 22106-5 Heart Rate 1: 92 bpm Height: 5'3" Respiratory Rate: 20 bpm Temperature: 36 .7 (C) / 98.1 (F) Weight: 165 lbs 02/01/2012 Blood Pressure 1: 116/78 Code: 8480-6 BMI: 29.1 Code: 35169-5 Heart Rate 1: 84 bpm Height: 5'3" Respiratory Rate: 20 bpm Temperature: 36 .8 (C) / 98.2 (F) Weight: 164 lbs 12/20/2011 Blood Pressure 1: 128/80 Code: 8480-6 BMI: 29.1 Code: 20456-3 Heart Rate 1: 88 bpm Height: 5'3" Respiratory Rate: 20 bpm Temperature: 36 .4 (C) / 97.6 (F) Weight: 164 lbs 11/22/2011 Blood Pressure 1: 104/60 Code: 8480-6 BMI: 28.5 Code: 45777-2 Heart Rate 1: 78 bpm Height: 5'3" Temperature: 36.6 (C) / 97.9 (F) Weight: 161 lbs 07/11/2011 Blood Pressure 1: 118/72 Code: 8480-6 BMI: 30.6 Code: 62571-3 Heart Rate 1: 92 bpm Height: 5'3" Respiratory Rate: 20 bpm Temperature: 36 .8 (C) / 98.2 (F) Weight: 173 lbs 07/06/2011 Blood Pressure 1: 126/80 Code: 8480-6 BMI: 31.0 Code: 89472-8 Heart Rate 1: 88 bpm Height: 5'3" Respiratory Rate: 20 bpm Temperature: 36 .7 (C) / 98.1 (F) Weight: 175 lbs 05/26/2011 Blood Pressure 1: 100/78 Code: 8480-6 BMI: 31.0 Code: 33125-4 Heart Rate 1: 74 bpm Height: 5'3" Temperature: 36.4 (C) / 97.6 (F) Weight: 175 lbs 05/16/2011 Blood Pressure 1: 116/80 Code: 8480-6 BMI: 31.0 Code: 32364-9 Heart Rate 1: 88 bpm Height: 5'3" Respiratory Rate: 20 bpm Temperature: 36 .8 (C) / 98.2 (F) Weight: 175 lbs 05/05/2011 Blood Pressure 1: 126/80 Code: 8480-6 BMI: 30.6 Code: 11101-8 Heart Rate 1: 96 bpm Height: 5'3" Respiratory Rate: 20 bpm Temperature: 36 .4 (C) / 97.6 (F) Weight: 173 lbs 04/05/2011 Blood Pressure 1: 144/90 Code: 8480-6 BMI: 30.1 Code: 76628-6 Heart Rate 1: 92 bpm Height: 5'3" Respiratory Rate: 20 bpm Temperature: 36 .6 (C) / 97.8 (F) Weight: 170 lbs 03/02/2011 Blood Pressure 1: 136/94 Code: 8480-6 Heart Rate 1: 92 bpm Temperature: 36.6 (C) / 97.8 (F) Weight: 171 lbs 01/05/2011 Blood Pressure 1: 132/86 Code: 8480-6 BMI: 30.6 Code: 60861-4 Heart Rate 1: 98 bpm Height: 5'3" [...] 1: 122/68 Code: 8480-6 BMI: 29.8 Code: 65147-9 Height: 5'3" Temperature: 36.3 (C) / 97.4 [...] 1: 142/90 Code: 8480-6 BMI: 30.5 Code: 51632-8 Heart Rate 1: 96 bpm Height: 5'3" [...] 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 01/14/2011 shortness of breath 01/05/2011 urinary [...] blood pressure 06/07/2010 taking lisinopril HC T 24/05.5 follow up 05/12/2010 still having hoarsen ess and thinks is still related to the bystolic abdominal pain 04/27/2010 ~generic 04/19/2010 having problems with laryngitis, has concerns it may be related to Bystolic anxiety 03/09/2010 wanting a refill of alprazolam follow up 01/04/2010 2wk fwup on Bystolic follow up 12/14/2009 from [facility] follow up 11/23/2009 Encounters Encounter Performer Location Codes Date () OFFICE/OUTPATIENT VISIT EST Diagnosis: Hyperglycemia, unspecified[ICD10: R73.9] Diagnosis: Hypothyroidism[ICD10: E03.9] Diagnosis: Asthma[ICD10: J45.909] Diagnosis: Hilar lymphadenopathy[ICD10: R59.0] Yaima JOHNSON DO [facility] CPT-4: 49625 07/03/2019 ([id number]) OFFICE/OUTPATIENT VISIT EST Diagnosis: Low back pain[ICD10: M54.5] Jane SAMUELS S. Jaqui WOO [facility] CPT-4: 95378 04/12/2019 ([id number]) OFFICE/OUTPATIENT VISIT EST Diagnosis: Pain in thoracic spine[ICD10: M54.6] Diagnosis: Muscle spasm of back[ICD10: M62.830] Yaima JOHNSON DO [facility] CPT-4: 18129 01/16/2019 ([id number]) NURSE/OUTPATIENT VISIT EST Diagnosis: Low back pain[ICD10: M54.5] Diagnosis: Hematuria, unspecified[ICD10: R31.9] Yaima JOHNSON [facility] CPT-4: 54629 01/14/2019 ([id number]) OFFICE/OUTPATIENT VISIT EST Diagnosis: Left lower quadrant pain[ICD10: R10.32] Yaima JOHNSON [facility] CPT-4: 26864 01/09/2019 ([id number]) NURSE/OUTPATIENT VISIT EST Diagnosis: Hematuria, unspecified[ICD10: R31.9] Yaima JOHNSON [facility] CPT-4: 09824 11/01/2018 ([id number]) OFFICE/OUTPATIENT VISIT EST Diagnosis: Hypothyroidism, unspecified[ICD10: E03.9] Diagnosis: Other fatigue[ICD10: R53.83] Diagnosis: Other cervical disc degeneration, unspecified cervical region[ICD10: M50.30] Yaima JOHNSON [facility] CPT-4: 99140 10/04/2018 ([id number]) OFFICE/OUTPATIENT VISIT EST Diagnosis: Hypothyroidism, unspecified[ICD10: E03.9] Diagnosis: Impaired fasting glucose[ICD10: R73.01] Diagnosis: Cervicalgia[ICD10: M54.2] [facility]: 86375 08/06/2018 ([id number]) OFFICE/OUTPATIENT VISIT EST Diagnosis: Radiculopathy, lumbosacral region[ICD10: M54.17] Diagnosis: Abrasion, left lower leg, sequela[ICD10: S80.812S] Yaima JOHNSON [facility] CPT-4: 11978 06/21/2018 ([id number]) NURSE/OUTPATIENT VISIT EST Diagnosis: Urinary tract infection, site not specified[ICD10: N39.0] Yaima JOHNSON [facility] CPT-4: 52458 06/13/2018 ([id number]) OFFICE/OUTPATIENT VISIT EST Diagnosis: Other dorsalgia[ICD10: M54.89] [facility]: 23027 05/31/2018 ([id number]) NURSE/OUTPATIENT VISIT EST Diagnosis: FLU VACCINE[ICD10: Z23] Yaima [facility] CPT-4: 76435 03/22/2018 ([id number]) OFFICE/OUTPATIENT VISIT EST Diagnosis: Hypothyroidism, unspecified[ICD10: E03.9] Diagnosis: Essential (primary) hypertension[ICD10: I10] Diagnosis: Other seasonal allergic rhinitis[ICD10: J30.2] [facility] CPT-4: 32099 02/06/2018 ([id number]) NURSE/OUTPATIENT VISIT EST Diagnosis: Laceration of blood vessel of right index finger, initial encounter[ICD10: S65.510A] Diagnosis: VACCINE FOR TDAP[ICD10: Z23] Yaima JOHNSON [facility] CPT-4: 68827 12/28/2017 ([id number]) OFFICE/OUTPATIENT VISIT EST Diagnosis: Tinnitus, bilateral[ICD10: H93.13] Yaima [facility] CPT-4: 85914 12/18/2017 ([id number]) NURSE/OUTPATIENT VISIT EST Diagnosis: VACCIN FOR DISEASE NEC (HPV or Zostavax)[ICD10: Z23] Yaima JOHNSON [facility] CPT-4: 28381 10/04/2017 OFFICE/OUTPATIENT VISIT EST Diagnosis: Hypothyroidism, unspecified[ICD10: E03.9] Diagnosis: Essential (primary) hypertension[ICD10: I10] Diagnosis: Gastro-esophageal reflux disease without esophagitis[ICD10: K21.9] Diagnosis: Pain in right knee[ICD10: M25.561] Diagnosis: Hyperglycemia, unspecified[ICD10: R73.9] Yaima JOHNSON [facility] CPT-4: 27733 09/11/2017 ([id number]) OFFICE/OUTPATIENT VISIT EST Diagnosis: Cervicalgia[ICD10: M54.2] Diagnosis: Hypothyroidism, unspecified[ICD10: E03.9] Diagnosis: Essential (primary) hypertension[ICD10: I10] Diagnosis: Irritant contact dermatitis, unspecified cause[ICD10: L24.9] Diagnosis: FLU VACCINE[ICD10: Z23] [facility] CPT-4: 85762 03/28/2017 ([id number]) OFFICE/OUTPATIENT VISIT EST Diagnosis: Influenza due to identified novel influenza A virus with other manifestations[ICD10: J09.X9] Yaima JOHNSON [facility] CPT-4: 63218 09/12/2016 ([id number]) OFFICE/OUTPATIENT VISIT EST Diagnosis: Dermatitis, unspecified[ICD10: L30.9] Diagnosis: Pain in right knee[ICD10: M25.561] [facility] CPT-[facility]: 51462 07/28/2016 ([id number]) OFFICE/OUTPATIENT VISIT EST Diagnosis: Incisional hernia without obstruction or gangrene[ICD10: K43.2] Diagnosis: Gastro-esophageal reflux disease without esophagitis[ICD10: K21.9] Diagnosis: Radiculopathy, lumbosacral region[ICD10: M54.17] Yaima JOHNSON [facility] CPT-4: 20605 04/26/2016 ([id number]) OFFICE/OUTPATIENT VISIT EST Diagnosis: FLU VACCINE[ICD10: Z23] Yaima [facility] CPT-4: 92456 04/22/2016 ([id number]) OFFICE/OUTPATIENT VISIT EST Diagnosis: Other fecal abnormalities[ICD10: R19.5] [facility] CPT-[facility]: 19273 01/04/2016 ([id number]) OFFICE/OUTPATIENT VISIT EST 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 CPT-4: 30787 12/09/2015 ([id number]) OFFICE/OUTPATIENT VISIT EST Diagnosis: Pain in thoracic spine[ICD10: M54.6] Diagnosis: Radiculopathy, lumbosacral region[ICD10: M54.17] Diagnosis: Precordial pain[ICD10: R07.2] Yaima JOHNSON DO [facility] CPT-4: 05287 09/10/2015 ([id number]) OFFICE/OUTPATIENT VISIT EST Diagnosis: Nausea[ICD10: R11.0] Yaima JOHNSON DO [facility] CPT-4: 16135 07/20/2015 ([id number]) OFFICE/OUTPATIENT VISIT EST Diagnosis: Pain in left elbow[ICD10: M25.522] Diagnosis: Contusion of left lower leg, sequela[ICD10: S80.12XS] Diagnosis: Pleurodynia[ICD10: R07.81] Yaima HOWELL [employer] CPT-4: 82574 04/23/2015 ([id number]) OFFICE/OUTPATIENT VISIT EST Diagnosis: Unspecified abdominal pain[ICD10: R10.9] Diagnosis: Ventral hernia without obstruction or gangrene[ICD10: K43.9] Diagnosis: Constipation, unspecified[ICD10: K59.00] Yaima JOHNSON DO [employer] CPT-4: 92130 03/24/2015 ([id number]) OFFICE/OUTPATIENT VISIT EST Diagnosis: FLU VACCINE[ICD10: Z23] Yaima EUGENE [employer] CPT-4: 15307 03/09/2015 ([id number]) OFFICE/OUTPATIENT VISIT EST 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 CPT-4: 84483 03/05/2015 OFFICE/OUTPATIENT VISIT EST Diagnosis: ABDOMINAL PAIN[ICD9: 789.00] Diagnosis: HYPOTHYROIDISM[ICD9: 244.9] Diagnosis: HYPERTENSION[ICD9: 401.9] Diagnosis: DIVERTICULITIS, COLONIC[ICD9: 562.11] Diagnosis: DISTURBANCE OF SKIN SENSATION (Paresthesia)[ICD9: 782.0] Yaima JOHNSON DO [facility] CPT-4: 06841 02/19/2015 ([id number]) OFFICE/OUTPATIENT VISIT EST Diagnosis: HYPOTHYROIDISM[ICD9: 244.9] Diagnosis: Diaphoresis[ICD9: 780.8] Yaima DUMONT [facility] CPT-4: 80453 12/25/2014 ([id number]) OFFICE/OUTPATIENT VISIT EST Diagnosis: ABDOMINAL PAIN[ICD9: 789.00] Diagnosis: PAIN, LOWER BACK[ICD9: 724.2] Diagnosis: Contusion of leg[ICD9: 924.5] Yaima JOHNSON [facility] CPT-4: 41185 11/26/2014 ([id number]) OFFICE/OUTPATIENT VISIT EST Diagnosis: IBS[ICD9: 564.1] Diagnosis: GERD[ICD9: 530.81] Yaima JOHNSON [facility] CPT-4: 09782 11/04/2014 ([id number]) OFFICE/OUTPATIENT VISIT EST Diagnosis: Headache[ICD9: 784.0] Diagnosis: Leg pain[ICD9: 729.5] Yaima JOHNSON [facility] CPT-4: 36796 09/01/2014 ([id number]) OFFICE/OUTPATIENT VISIT EST Diagnosis: DYSURIA[ICD9: 788.1] Yaima JOHNSON DO [facility] CPT-4: 19619 07/10/2014 OFFICE/OUTPATIENT VISIT EST Diagnosis: VAGINITIS[ICD9: 623.5] Diagnosis: SINUSITIS, ACUTE[ICD9: 461.9] Yaima JOHNSON DO [facility] CPT-4: 07502 06/02/2014 ([id number]) OFFICE/OUTPATIENT VISIT EST Diagnosis: HYPERTENSION[ICD9: 401.9] Diagnosis: ALLERGIC RHINITIS[ICD9: 477.9] Diagnosis: PAIN, LOWER BACK[ICD9: 724.2] Yaima JOHNSON [facility] CPT-4: 14836 04/08/2014 ([id number]) OFFICE/OUTPATIENT VISIT EST Diagnosis: COUGH[ICD10: R05] Diagnosis: Thoracic back pain[ICD9: 724.1] Yaima JOHNSON [facility] CPT-4: 81697 03/05/2014 ([id number]) OFFICE/OUTPATIENT VISIT EST Diagnosis: SINUSITIS, ACUTE[ICD9: 461.9] Diagnosis: BRONCHITIS, ACUTE[ICD9: 466.0] Yaima JOHNSON [facility] CPT-4: 31421 07/29/2013 ([id number]) OFFICE/OUTPATIENT VISIT EST Diagnosis: ABDOMINAL PAIN[ICD9: 789.00] Diagnosis: Constipation[ICD9: 564.00] Diagnosis: DIVERTICULITIS, COLONIC[ICD9: 562.11] Yaima JOHNSON [facility] CPT-4: 45106 03/20/2013 ([id number]) OFFICE/OUTPATIENT VISIT EST Diagnosis: Plantar fasciitis[ICD9: 728.71] Diagnosis: ALLERGIC RHINITIS[ICD9: 477.9] Yaima J[facility]NSON [facility] CPT-4: 75427 02/12/2013 OFFICE/OUTPATIENT VISIT EST Diagnosis: Skin lesion[ICD9: 709.9] Diagnosis: Lumbar back pain[ICD9: 724.2] Diagnosis: Muscle spasm[ICD9: 728.85] Diagnosis: Hypothyroid[ICD9: 244.9] Yaima DUMONT [facility] CPT-4: 81306 11/05/2012 ([id number]) OFFICE/OUTPATIENT VISIT EST Diagnosis: Cervicalgia[ICD9: 723.1] Diagnosis: Thoracic back pain[ICD9: 724.1] Diagnosis: SPASM OF MUSCLE[ICD9: 728.85] Yaima JOHNSON [facility] CPT-4: 69776 10/04/2012 ([id number]) OFFICE/OUTPATIENT VISIT EST Diagnosis: MALAISE AND FATIGUE[ICD9: 780.79] Diagnosis: HYPOTHYROIDISM[ICD9: 244.9] Diagnosis: HYPERTENSION[ICD9: 401.9] Yaima MCCORMACKPAOLA Ravi. ORE NDER DO [facility] CPT-4: 70328 09/24/2012 ([id number]) OFFICE/OUTPATIENT VISIT EST Diagnosis: Lateral epicondylitis[ICD9: 726.32] Diagnosis: Wrist pain[ICD9: 719.43] Diagnosis: Numbness and tingling in right hand[ICD9: 782.0] Yaima Johnson YAIMA BreonnaRobin JOSUENDVALORIE DO [facility] CPT-4: 86291 05/10/2012 OFFICE/OUTPATIENT VISIT EST Diagnosis: MALAISE AND FATIGUE[ICD9: 780.79] Diagnosis: HYPOTHYROIDISM[ICD9: 244.9] Diagnosis: Enthesopathy of the wrist and carpus[ICD9: 726.4] Diagnosis: Foot pain[ICD9: 729.5] Diagnosis: DYSPHAGIA NEC[ICD9: 787.29] Yaima Gaytanvalorie SAMUELS S. O RENDER DO [facility] CPT-4: 20470 03/07/2012 ([id number]) OFFICE/OUTPATIENT VISIT EST Diagnosis: HYPOTHYROIDISM[ICD9: 244.9] Yaima Johnson YAIMA S. O RENDER DO [facility] CPT-4: 63651 02/01/2012 ([id number]) OFFICE/OUTPATIENT VISIT EST Diagnosis: MALAISE AND FATIGUE[ICD9: 780.79] Diagnosis: HYPOTHYROIDISM[ICD9: 244.9] Yaima Josuebrandon SAMUELS S. O RENDER DO [facility] CPT-4: 31911 12/20/2011 OFFICE/OUTPATIENT VISIT EST Diagnosis: INSECT BITE HIP/LEG[ICD9: 916.4] Lizzette JOHNSON DO [facility] CPT-4: 67713 11/22/2011 OFFICE/OUTPATIENT VISIT EST Diagnosis: HEMATURIA NOS[ICD9: 599.70] Yaima Josuejulianvalorie YAIMA S. O RENDER DO [facility] CPT-4: 69686 07/14/2011 OFFICE/OUTPATIENT VISIT EST Diagnosis: URINARY TRACT INFECTION[ICD9: 599.0] Diagnosis: DIVERTICULITIS, COLONIC[ICD9: 562.11] Yaima Josuebrandon CHAY RaviRobin LUKASVALORIE [facility] CPT-4: 75158 07/11/2011 OFFICE/OUTPATIENT VISIT EST Diagnosis: TMJ arthritis[ICD9: 524.69] Diagnosis: MIGRAINE NOS/NOT INTRCBL[ICD9: 346.90] Diagnosis: Rectal fissure[ICD9: 565.0] Yaima Josuebrandon WOO [facility] CPT-4: 33678 07/06/2011 OFFICE/OUTPATIENT VISIT EST Diagnosis: SPASM OF MUSCLE[ICD9: 728.85] Diagnosis: PAIN, LOWER BACK[ICD9: 724.2] Yaima Josuebrandon SAMUELS BreonnaRobin JOSUEBRANDON [facility] CPT-4: 93062 05/26/2011 OFFICE/OUTPATIENT VISIT EST Diagnosis: PAIN, LOWER BACK[ICD9: 724.2] Diagnosis: SPASM OF MUSCLE[ICD9: 728.85] Yaima Josuebrandon SAMUELS BreonnaRobin JOSUEBRANDON [facility] CPT-4: 84588 05/16/2011 OFFICE/OUTPATIENT VISIT EST Diagnosis: PAIN, LOWER BACK[ICD9: 724.2] Diagnosis: ENTHESOPATHY OF HIP[ICD9: 726.5] Diagnosis: Onychomycosis[ICD9: 110.1] Yaima Josuebrandon [facility]WELL [facility] CPT-4: 30093 05/05/2011 OFFICE/OUTPATIENT VISIT EST Diagnosis: Diverticulitis[ICD9: 562.11] Yaima Josuebrandon Escalera JOSUEBRANDON [facility] CPT-4: 36475 04/05/2011 OFFICE/OUTPATIENT VISIT EST Diagnosis: CHEST PAIN NOS[ICD9: 786.50] Diagnosis: PALPITATIONS[ICD9: 785.1] Diagnosis: Pulmonary arterial hypertension[ICD9: 416.8] Yaima Josuebrandon SAMUELS BreonnaRobin JOSUEBRANDON [facility] CPT-4: 58393 03/02/2011 OFFICE/OUTPATIENT VISIT EST Yaima Josuebrandon SAMUELS BreonnaRobin JOSUE BRANDON [facility] CPT- 4: 79545 01/05/2011 ([id number]) OFFICE/OUTPATIENT VISIT EST Yaima Josuebrandon Escalera [facility] CPT-4: 76305 11/16/2010 ([id number]) OFFICE/OUTPATIENT VISIT EST Yaima AGUIRRE [facility] CPT-4: 01881 11/04/2010 ([id number]) OFFICE/OUTPATIENT VISIT EST Yaima AGUIRRE [facility] CPT-4: 15771 08/05/2010 ([id number]) OFFICE/OUTPATIENT VISIT EST Yaima [facility]ON[facility] CPT-4: 63498 07/23/2010 ([id number]) OFFICE/OUTPATIENT VISIT, EST Yaima ENG[facility]LINE [facility] CPT-4: 33606 06/07/2010 ([id number]) OFFICE/OUTPATIENT VISIT, EST Yaima ZUNIGA [facility] CPT-4: 71979 05/12/2010 ([id number]) OFFICE/OUTPATIENT VISIT, EST Yaima ZUNIGA [facility] CPT-4: 37480 04/27/2010 ([id number]) OFFICE/OUTPATIENT VISIT, EST Yaima ZUNIGA [facility] CPT-4: 37789 04/19/2010 ([id number]) OFFICE/OUTPATIENT VISIT, EST Yaima ZUNIGA [facility] CPT-4: 36551 03/09/2010 ([id number]) OFFICE/OUTPATIENT VISIT, EST Yaima ENG[facility]LINE [facility] CPT-4: 17857 01/04/2010 ([id number]) OFFICE/OUTPATIENT VISIT, EST Yaima ZUNIGA [facility] CPT-4: 50508 12/14/2009 ([id number]) OFFICE/OUTPATIENT VISIT, EST Lizzette Lozano [facility] CPT-4: 33509 11/23/2009 Plan of Care Planned Activity Notes [...] Plan: COMPREH[place] : [address]-0 Pending 06/18/2019 Care Plan: LIPID PANEL LOINC : 77113-6 Pending 06/18/2019 Care Plan: A1C HPLC LOINC : 30405-8 Pending 06/18/2019 Care Plan: COMPLETE CBC W/AUTO DIFF WBC LOINC : 89168-5 Pending 06/18/2019 Care Plan: ASSAY THYROID STIM [...] ICD-10 : M54.5 04/12/2019 Appointment: Jane Nettles [address] [place] [address] ACUTE ILLNESS 04/12/2019 Appointment: Yaima Johnson WPtel: [address] [place] [address] US CANCELED 02/05/2019 Visit Diagnosis Plan: Pain in thoracic spine Discussio n: Moist Heat Topical Muscle Rub Towel Stretch Skelaxin with Tylenol Arthritis TID Okay to use lidoderm patches Notify if persists ICD-9 : 724.1 ICD-10 : M54.6 01/16/2019 Appointment: Yaima Johnson WPtel: [address] [place] [address] ACUTE ILLNESS 01/16/2019 Appointment: Yaima Johnson WPtel: [address] [place], [place] [phone] UA 01/14/2019 Visit Diagnosis Plan: Left lower quadrant pain Discuss ion: Appears to have a hernia so did discuss surgical evaluation ICD-9 : 789.04 ICD-10 : R10.32 01/09/2019 Appointment: Yaima Johnson WPtel: [address] [place] [address] ACUTE ILLNESS 01/09/2019 Visit Diagnosis Plan: Encounter for [facility] adult medical examination without abnormal findings Discussion: Mediterranean diet Combinati on of cardio and weight bearing exercise Update colonoscopy Tdap up to date Had Shingrix Recommend Prevnar 13 this Fall with Influenza Vaccine Finish PT Mammogram due in January and will do lab then as well Had WWE done this year by Dr. Richards ICD-9 : V70.9 ICD-10 : Z00.00 11/21/2018 Appointment: Yaima Johnosn WPtel: [address] [place] [address] WELCOME TO MEDICARE 11/21/2018 Care Plan: Referral Order SNOMED-CT : 30 [id number] Pending 11/21/2018 Appointment: Yaima Johnson WPtel: [address] [place] [address] 11/01/2018 Visit Diagnosis Plan: Hypothyroidism, unspecified Disc ussion: Restart synthroid at 50mcg daily and recheck lab in 3mos ICD-9 : 244.9 ICD-10 : E03.9 10/04/2018 Visit Diagnosis Plan: Other cervical dis c degeneration, unspecified cervical region Discussion: MRI results discussed fw w [facility] Dr. Johnson ICD-9 : 722.4 ICD-10 : M50.30 10/04/2018 Appointment: Yaima Johnson WPtel: [address] [place] [address] FOLLOW UP 10/04/2018 Care Plan: Referral Order SNOMED-CT : 30 [id number] Pending 10/04/2018 Visit Diagnosis Plan: Hypothyroidism, unspecified [...] 723.1 ICD-10 : M54.2 08/06/2018 Appointment: Yaima Johnsontel: [address] [place] [address] Schedule medicare annual! FOLLOW UP 2018 Patient Education: levothyroxine- Optimize[employer] Coupon [id number] [email or web address]/[email or web address] Completed 08/06/2018 Visit Diagnosis Plan: Radiculopathy, lumbosacral regio n Discussion: Daily stretches and see if improves--low dose gabapentin trial q HS if does not improve Lab and fwup in 3mos ICD-9 : 724.4 ICD-10 : M54.17 06/21/2018 Visit Diagnosis Plan: Abrasion, left lower leg, sequel a Discussion: Vitamin E topically for scarring/dryness ICD-9 : 906.2 ICD-10 : S80.812S 06/21/2018 Appointment: Yaima Johnsontel: [address] [place], [place] [phone] ACUTE ILLNESS 06/21/2018 Appointment: Yaima Johnsontel: [address] [place], [place] [phone] UA 06/13/2018 Visit Diagnosis Plan: Other dorsalgia [...] ICD-10 : M54.89 05/31/2018 Appointment: Jane Nettles [address] [place] [address] ACUTE ILLNESS 05/31/2018 Appointment: Yaima Johnson WPtel: [address] [place] [address] US INJECTION 03/22/2018 Patient Education: Patient Medication Summary Completed 03/22/2018 Patient Education: INFLUENZA VACCINE CDC Completed 03/22/2018 Appointment: Yaima Johnson WPtel: [address] [place] [address] US RESCHEDULED 02/14/2018 Visit Diagnosis Plan: Hypothyroidism, unspecified [...] 477.9 ICD-10 : J30.2 02/06/2018 Appointment: Yaima Johnsontel: [address] [place], [place] [phone] US FOLLOW UP 02/06/2018 Patient Education: Patient Medication Summary Completed 02/06/2018 Appointment: Yaima Johnson WPtel: [address] [place], [place] [phone] US INJECTION 12/28/2017 Patient Education: Patient Medication Summary Completed 12/28/2017 Appointment: Yaima Johnsontel: [address] [place], [place] [phone] US RESCHEDULED 12/25/2017 Visit Diagnosis Plan: Tinnitus, bilateral Discussion: See ENT for hearing eval and further workup ICD-9 : 388.31 ICD-10 : H93.13 12/18/2017 Appointment: Yaima Johnson WPtel: [address] [place], [place] [phone] ACUTE ILLNESS 12/18/2017 Patient Education: Patient Medication Summary Completed 12/18/2017 Patient Education: Tinnitus Completed 12/18/2017 Care Plan: Referral Order SNOMED-CT : 30 [id number] Pending 12/18/2017 Appointment: Yaima Johnson WPtel: [address] [place], [place] [id number] BP CHECK 12/11/2017 Patient Education: Patient Medication Summary Completed 12/11/2017 Referral: Danyel Hernandez WPtel: [facility] [address] Referral Initiated 10/11/2017 Appointment: Yaima Johnson WPtel: [address] [place], [place] [phone] INJECTION 10/04/2017 Patient Education: Patient Medication Summary Completed 10/04/2017 Visit Diagnosis Plan: Gastro-esophageal reflux disease without esophagitis Discussion: Stable ICD-9 : 530.81 ICD-10 : K21.9 09/11/2017 Visit Diagnosis Plan: Pain in right knee Discussion: S orhto for injection--had surgery 1 year ago [...] E03.9 09/11/2017 Appointment: Yaima Johnson WPtel: [phone] [phone] FOLLOW UP 09/11/2017 Patient Education: Patient Medication Summary Completed 09/11/2017 Appointment: Jane Nettles [address] [place] [address] 08/28/17 1715---issue addressed in phone message (km) CANCELED 08/29/2017 Patient Education: Patient Medication Summary Completed 07/11/2017 Care Plan: A1C HPLC LOINC : 18739-2 Pending 07/11/2017 Care Plan: ASSAY OF FREE THYROXINE Pendin g 07/11/2017 Care Plan: ASSAY THYROID STIM HORMONE Pen ding 07/11/2017 Care Plan: COMPLETE CBC W/AUTO DIFF WBC LOINC : 38644-9 Pending 07/11/2017 Care Plan: [place] : [address]-9 Pending 07/11/2017 Visit Diagnosis Plan: Irritant contact [...] E03.9 03/28/2017 Appointment: Yaima Johnson WPtel: [phone] [facility] ACUTE ILLNESS 03/28/2017 Patient Education: Patient Medication Summary Completed 03/28/2017 Patient Education: Patient Medication Summary Completed 02/17/2017 Care Plan: ASSAY OF FREE THYROXINE Pendin g 02/17/2017 Care Plan: ASSAY THYROID STIM HORMONE Pen ding 02/17/2017 Care Plan: A1C HPLC LOINC : 22957-4 Pending 02/17/2017 Patient Education: Patient Medication Summary Completed 11/23/2016 Care Plan: A1C HPLC LOINC : 25365-9 Pending 11/23/2016 Patient Education: Patient Medication Summary Completed 11/22/2016 Care Plan: [place] : [address]-7 Pending 11/22/2016 Care Plan: ASSAY THYROID STIM HORMONE Pen ding 11/22/2016 Care Plan: ASSAY OF FREE THYROXINE Pendin g 11/22/2016 Care Plan: CBC Pending 11/22/2016 Care Plan: ASSAY TRIIODOTHYRONINE (T3) Pe nding 11/22/2016 Care Plan: ASSAY OF IRON Pending Care Plan: VITAMIN B-12 Pending 11/04 Patient Education: Patient Medication Summary Completed 11/09/2016 Care Plan: US EXAM ABDO BACK WALL COMP L OINC : 65908-0 Pending 11/09/2016 Patient Education: Patient Medication Summary Completed 09/26/2016 Visit Diagnosis Plan: Influenza due to i dentified novel influenza A virus with other manifestations Discussion: Tamiflu for her and ICD-9 : 488.09 ICD-10 : J09.X9 09/12/2016 Visit NOS Plan: Plan Notes: Saline nasal flu shes prn. Tyle... 09/12/2016 Appointment: Yaima Johnson WPtel: [address] [place], [place] [phone] ACUTE ILLNESS 09/12/2016 Patient Education: Patient Medication Summary Completed 09/12/2016 Visit Diagnosis Plan: Pain in right knee Discussion: M RI of right knee scheduled for this weekend by ortho ICD-9 : 719.46 ICD-10 : M25.561 07/28/2016 Visit Diagnosis Plan: Dermatitis, unspecified Discussi on: Use clotrimazole/betamethasone BID to hand rash ICD-9 : 692.9 ICD-10 : L30.9 07/28/2016 Appointment: Yaima Johnson WPtel: [phone] [facility] 07/27 confirmed `sl ACUTE ILLNESS 07/28/2016 Patient [...] and see how does 04/26/2016 Appointment: Yaima Johnsontel: [address] [place] [address] ACUTE ILLNESS 04/26/2016 Patient Education: Patient Medication Summary Completed 04/26/2016 Appointment: Yaima Johnson WPtel: [address] [place] [address] US INJECTION 04/22/2016 Patient Education: Patient Medication Summary Completed 04/22/2016 Appointment: Yaima Johnson WPtel: [address] [place] [address] Stool lab 01/04/2016 Patient Education: Patient Medication Summary Completed 01/04/2016 Visit Plan: Calmoseptine to irritated gr oin area Discussed that liver lesion and right kidney cyst are stable dating back to 2009 so likely benign and will recheck in 1year Check CMP and CBC 12/09/2015 Appointment: Yaima Johnson WPtel: [address] [place] [address] FOLLOW UP 12/09/2015 Patient Education: Patient Medication Summary Completed 12/09/2015 Patient Education: Patient Medication Summary Completed 11/26/2015 Care Plan: ECHO EXAM OF ABDOMEN LOINC : 36661-3 Pending 11/26/2015 Care Plan: US EXAM ABDO BACK WALL COMP L OINC : 33665-4 Pending 11/26/2015 Patient Education: Patient Medication Summary Completed 11/10/2015 Care Plan: ASSAY THYROID STIM HORMONE Pen ding 11/10/2015 Care Plan: ASSAY OF FREE THYROXINE Pendin g 11/10/2015 Visit Plan: Start PT for both right leg sciatica and thoracics for chest pain 09/10/2015 Appointment: Yaima Johnson WPtel: [address] [place] [address] ACUTE ILLNESS 09/10/2015 Patient Education: Patient Medication Summary Completed 09/10/2015 Appointment: Yaima Johnson WPtel: [address] [place], [place] [phone] [place] INJECTION 07/20/2015 Patient Education: Patient Medication Summary Completed 07/20/2015 Patient Education: Patient Medication Summary Completed 05/04/2015 Visit Plan: Observe left elbow for next 2 weeks and if not improving let us know Observe left leg bruising Can use voltaren gel to elbow Observe ribs Lidoderm patch for SI joint 04/23/2015 Appointment: Yaima Johnson WPtel: [address] [place], [place] [phone] [place] FOLLOW UP 04/23/2015 Patient Education: Patient Medication Summary Completed 04/23/2015 Patient Education: Patient Medication Summary Completed 04/20/2015 Visit Plan: Discussed CT results Add Milton alax 1/2 cap every other day 03/24/2015 Appointment: Yaima Johnson WPtel: [address] [place], [place] [id number] [place] 03/23 confirmed~sl FOLLOW UP 03/24/2015 Patient Education: Patient Medication Summary Completed 03/24/2015 Appointment: Yaima Johnson WPtel: [address] [place], [place] [phone] [place] INJECTION 03/09/2015 Patient Education: Patient Medication Summary Completed 03/09/2015 Visit Plan: Check CT scan of abdomen and pelvis with oral contrast Thoracic towel stretch 03/05/2015 Appointment: Yaima Johnson WPtel: [address] [place], [place] [phone] [place] FOLLOW UP 03/05/2015 Patient Education: Patient Medication Summary Completed 03/05/2015 Referral: Richmond Berger WPtel: [address] [id number] [place] Referral Initiated 02/23/2015 Visit Plan: Lab [...] and left knee 02/19/2015 Appointment: Yaima Johnsontel: [address] [place] [address] 02/18/15 lm confirmed with cb FOLLOW UP Patient Education: Patient Medication Summary Completed 02/19/2015 Patient Education: Patient Medication Summary Completed 02/04/2015 Appointment: Yaima Johnson WPtel: [address] [place] [address] US FOLLOW UP 01/06/2015 Visit Plan: Decrease levothyroxine to 50 mcg daily Recheck TSH and Free T4 in 2mos then fwup 12/25/2014 Appointment: Yaima Johnson WPtel: [address] [place] [address] ACUTE ILLNESS 12/25/2014 Patient Education: Patient Medication Summary Completed 12/25/2014 Patient Education: [facility] - [employer] - Levothyroxine - 18-64 - Dynamic Portal ID Completed 12/25/2014 Patient Education: Patient Medication Summary Completed 12/15/2014 Visit Plan: Observe left leg keep meds s robert Has scheduled for 2nd epidural Recheck 3-4weeks after next epidural 11/26/2014 Appointment: Yaima Johnson WPtel: [address] [place] [address] 11/25 appt confirmed cn FOLLOW UP 11/27/19 15 Patient Education: Patient Medication Summary Completed 11/26/2014 Visit Plan: Increase Protonix to 40mg po BID Add Bentyl 10mg BID and up to TID prn Patient goes for back injection in 3 weeks Fwup 1 week after back injection 11/04/2014 Appointment: Yaima Johnsontel: [address] [place] [address] 11/03/ 11/04 appt confirmed ACUTE ILLNESS 0 11/04/2014 Patient Education: Patient Medication Summary Completed 11/04/2014 Appointment: Yaima Johnson WPtel: [address] [place], [place] [phone] 10/14/14: doing better-canceled appt-lb ACUTE ILL NESS 10/15/2014 Visit Plan: hydration stop benadryl Obse rve and monitor Headaches Leg stretches, going to PT today-have them show stretches Notify if headaches, leg pain return/persist 09/01/2014 Appointment: Yaima Johnson WPtel: [address] [place], [place] [phone] ACUTE ILLNESS 09/01/2014 Patient Education: Patient Medication Summary Completed 09/01/2014 Patient Education: Patient Medication Summary Completed 08/05/2014 Care Plan: ASSAY OF FREE THYROXINE Ordere d 08/05/2014 Care Plan: ASSAY THYROID STIM HORMONE Ord ered 08/05/2014 Appointment: Yaima Johnson WPtel: [address] [place], [place] [phone] UA 07/10/2014 Patient Education: Patient Medication Summary Completed 07/10/2014 Patient Education: Patient Medication Summary Completed 07/03/2014 Care Plan: HEPATIC FUNCTION PANEL Ordered 07/03/2014 Visit Plan: Vaginal ring unable to be in serted do will have to stick with pill vaginally as prescribed for at least 6mo trial Saline nasal flushes and restart flonase 06/02/2014 Appointment: Yaima Johnson WPtel: [address] [place], [place] [phone] FOLLOW UP 06/02/2014 Patient Education: Patient Medication Summary Completed 06/02/2014 Appointment: Yaima Johnson WPtel: [address] [place], [place] [phone] BP CHECK 05/26/2014 Patient Education: Patient Medication Summary Completed 05/26/2014 Patient Education: Patient Medication Summary Completed 05/22/2014 Appointment: Yaima Johnson WPtel: [address] [place], [place] [phone] BP CHECK 05/07/2014 Patient Education: Patient Medication Summary Completed 05/07/2014 Referral: Nitesh Avalos WPtel: [address] [place] 403 [id number] MRI Scheduled at [place], 04/17 3pm Completed 04/30/2014 Appointment: Yaima Johnson WPtel: [address] [place] [address] BP CHECK 04/15/2014 Visit Plan: Decrease premarin to 0.3125m g for 1week then stop Restart estrogen vaginal tabs and Patient requests to see Dr. Restrepo for back but discussed at this time appears to need conservative management such as PT and epidurals Moniter BP 04/08/2014 Appointment: Yaima Johnson WPtel: [address] [place] [address] ACUTE ILLNESS 04/08/2014 Patient Education: Patient Medication Summary Completed 04/08/2014 Appointment: Yaima Johnson WPtel: [address] [place] [address] ACUTE ILLNESS 03/10/2014 Visit Plan: Thoracic stretches daily Ske laxin 800mg BID Use vimovo prn Use gemma prn 03/05/2014 Appointment: Yaima Johnson WPtel: [address] [place] [address] ACUTE ILLNESS 03/05/2014 Patient Education: Patient Medication Summary Completed 03/05/2014 Visit Plan: Saline nasal flushes prn. Ty lenol/Motrin prn headache. Notify if persists/symptoms worsening. Zithromax and Prednisone Supportive care. Rest, Fluids, Tylenol/Motrin prn fever or bodyaches. Notify if worsening symptoms. 07/29/2013 Appointment: Mimi Keenan WPtel: [address] [place] [address] FOLLOW UP 07/29/2013 Patient Education: Patient Medication Summary Completed 07/29/2013 Appointment: Mimi Keenan WPtel: [address] [place] [address] 05/22 patient called back and reschedule d 05/24 vm not set up yet ACUTE ILLNESS 05/27/20 13 Visit Plan: Add miralax Cipro/Flagyl Pt has appointment with GI in NOV 03/20/2013 Appointment: Yaima Johnson WPtel: [address] [place] [address] ACUTE ILLNESS 03/20/2013 Patient Education: Patient Medication Summary Completed 03/20/2013 Visit Plan: Tullicups Stretches, ice, vo ltaren gel TID 02/12/2013 Appointment: Yaima Johnson WPtel: [address] [place] [address] ACUTE ILLNESS 02/12/2013 Patient Education: Patient Medication [...] Oct 2012. 11/05/2012 Appointment: Lizzette Lozano WPtel: [address] [place] [address] ACUTE ILLNESS 11/05/2012 Patient Education: Patient Medication Summary Completed 11/05/2012 Appointment: Yaima Johnson WPtel: [address] [place] [address] FOLLOW UP 10/04/2012 Patient Education: Patient Medication Summary Completed 10/04/2012 Visit Plan: Change toprol back to bystol ic BP check in 3wks Continue to observe hands--no observed bruising today 09/24/2012 Appointment: Yaima Johnson WPtel: [address] [place] [address] 09/21 left message ACUTE ILLNESS 09/24/2012 Patient Education: Patient Medication Summary Completed 09/24/2012 Visit Plan: Proceed with EMG of RUE Cont inue vimovo and skelaxin May use Voltaren gel TID to elbow and wrist 05/10/2012 Appointment: Yaima Johnson WPtel: [address] [place], [place] [address] 05/09 left voicemail ACUTE ILLNESS 05/10/2012 Patient [...] is improving 03/07/2012 Appointment: Yaima Johnson WPtel: [address] [place] [address] FOLLOW UP 03/07/2012 Patient Education: Patient Medication Summary Completed 03/07/2012 Visit Plan: Continue current dose Check TSH, Free T4 in 2mos 02/01/2012 Appointment: Yaima Johnson WPtel: [address] [place] [address] FOLLOW UP 02/01/2012 Patient Education: Patient Medication Summary Completed 02/01/2012 Visit Plan: Levothyroxine 50mcg po daily 12/20/2011 Appointment: Yaima Johnson WPtel: [address] [place], [place] [phone] FOLLOW UP 12/20/2011 Patient Education: Patient Medication Summary Completed 12/20/2011 Appointment: Lizzette Lozano WPtel: [address] [place], [place] [phone] ACUTE ILLNESS 11/22/2011 Patient Education: Patient Medication Summary Completed 11/22/2011 Appointment: Yaima Johnson WPtel: [address] [place], [place] [phone] UA 07/14/2011 Patient Education: Patient Medication Summary Completed 07/14/2011 Visit Plan: Finish current abx Clear liq uids to full liquids and then advance as tolerated If worsens will notify immediately Schedule with Dr. Berger for colonoscopy/EGD 07/11/2011 Appointment: Yaima Johnson WPtel: [address] [place] [address] ER Follow UP 07/11/2011 Patient Education: Patient Medication Summary Completed 07/11/2011 Visit Plan: Take treximet today and skel axin at bedtime Add anusol cream for 1wk Discussed if colon continues to flare-up over the next 6mos will repeat colonoscopy 07/06/2011 Appointment: Yaima Johnson WPtel: [address] [place] [address] ACUTE ILLNESS 07/06/2011 Patient Education: Patient Medication Summary Completed 07/06/2011 Appointment: Yaima Johnson WPtel: [address] [place] [address] INJECTION 06/28/2011 Patient Education: Patient Medication Summary Completed 06/28/2011 Visit Plan: OMT done Increase Skelaxin t o TID Start PT Daily stretches 05/26/2011 Appointment: Yaima Johnson WPtel: [address] [place] [address] ACUTE ILLNESS 05/26/2011 Patient Education: Patient Medication Summary Completed 05/26/2011 Visit Plan: OMT done Daily stretches, bi ofreeze Restart skelaxin 05/16/2011 Appointment: Yaima Johnson WPtel: [address] [place] [address] OMT 05/16/2011 Patient Education: Patient Medication Summary Completed 05/16/2011 Visit Plan: OMT done to back Stretches, moist heat and biofreeze Observe toenails 05/05/2011 Appointment: Yaima Johnson WPtel: [address] [place] [address] ACUTE ILLNESS 05/05/2011 Patient Education: Patient Medication Summary Completed 05/05/2011 Visit Plan: Finish Flagyl Continue Cultu relle and add Levbid for 1more week 04/05/2011 Appointment: Yaima Johnson WPtel: [address] [place], [place] [id number] ER Follow UP 04/05/2011 Patient Education: Patient Medication Summary Completed 04/05/2011 Appointment: Lizzette Lozano WPtel: [address] [place], [place] [id number] ACUTE ILLNESS 03/25/2011 Appointment: Yaima Johnson WPtel: [address] [place], [place] [phone] UA 03/23/2011 Patient Education: Patient Medication Summary Completed 03/23/2011 Visit Plan: Recommend proceed with heart cath Will check PFTs 03/02/2011 Appointment: Yaima Johnson WPtel: [address] [place] [address] FOLLOW UP 03/02/2011 Patient Education: Patient Medication Summary Completed 03/02/2011 Appointment: Yaima Johnson WPtel: [address] [place], [place] [phone] LAB 01/14/2011 Patient Education: Patient Medication Summary Completed 01/14/2011 Appointment: Lizzette Lozano WPtel: [address] [place], [place] [id number] ACUTE ILLNESS 01/05/2011 Patient Education: Patient Medication Summary Completed 01/05/2011 Visit Plan: Once again stressed jcarlosan ce of using premarin vaginal cream routinely to see if helps urinary symptoms Will culture urine Will observe lipomas--discussed may see surgery for removal 11/16/2010 Appointment: Yaima Johnson WPtel: [address] [place] [address] ACUTE ILLNESS 11/16/2010 Patient Education: Patient Medication Summary Completed 11/16/2010 Visit Plan: Injection to bursa as above Pt will continue to moniter BP and pulse off meds Repeat potassium level in 1wk 11/04/2010 Appointment: Yaima Johnson WPtel: [address] [place], [place] [id number] FOLLOW UP 11/04/2010 Patient Education: Patient Medication Summary Completed 11/04/2010 Appointment: Yaima Johsnontel: [address] [place], [place] [id number] FOLLOW UP 08/05/2010 Patient Education: Patient Medication Summary Completed 08/05/2010 Appointment: Yaima Johnson WPtel: [address] [place] [address] ACUTE ILLNESS 07/23/2010 Patient Education: Patient Medication Summary Completed 07/23/2010 Appointment: Yaima Johnsontel: [address] [place] [address] UA 07/05/2010 Patient Education: Patient Medication Summary Completed 07/05/2010 Appointment: Yaima Johnson WPtel: [address] [place] [address] BP CHECK 06/28/2010 Patient Education: Patient Medication Summary Completed 06/28/2010 Appointment: Yaima Johnsontel: [address] [place] [address] UA 06/14/2010 Appointment: Yaima Johnson WPtel: [address] [place] [address] BP CHECK 06/14/2010 Appointment: Yaima Johnson WPtel: [address] [place] [address] BP CHECK 06/14/2010 Patient Education: Patient Medication Summary Completed 06/14/2010 Patient Education: Patient Medication Summary Completed 06/14/2010 Appointment: Yaima Johnsontel: [address] [place] [address] US BP CHECK 06/10/2010 Visit Plan: Decrease lisinopril hct to 1 0/12.5mg QD and moniter BP BP check in 2-3wks--if pulse is increasing will go back to bystolic See ENT to evaluate hoarseness 06/07/2010 Appointment: Yaima Johnson WPtel: [address] [place] [address] FOLLOW UP 06/07/2010 Patient Education: Patient Medication [...] (See printoff) 05/12/2010 Appointment: Lizzette Lozano WPtel: [address] [place] [address] ACUTE ILLNESS 05/12/2010 Patient Education: Patient Medication Summary Completed 05/12/2010 Visit Plan: Continue Bentyl at QA and H S Continue protonix but increase to BID for 5-7 days If any fever or signs of divertuclitis develop notify 04/27/2010 Appointment: Yaima Johnson WPtel: [address] [place] [address] ACUTE ILLNESS 04/27/2010 Patient Education: Patient Medication Summary Completed 04/27/2010 Visit Plan: flako barajas. Refils. Kaden hernandez #90, -written RX 04/19/2010 Appointment: Lizzette Lozano WPtel: [address] [place] [address] ACUTE ILLNESS 04/19/2010 Patient Education: Patient Medication Summary Completed 04/19/2010 Appointment: Yaima Johnson WPtel: [address] [place] [address] 04/12/2010 Patient Education: Patient Medication Summary Completed 04/12/2010 Appointment: Yaima Johnson WPtel: [address] [place], [place] [address] UA 04/08/2010 Patient Education: Patient Medication Summary Completed 04/08/2010 Appointment: Yaima Johnson WPtel: [address] [place] [address] FOLLOW UP 03/09/2010 Patient Education: Patient Medication Summary Completed 03/09/2010 Appointment: Yaima Johnson WPtel: [address] [place] [address] BP CHECK 01/19/2010 Patient Education: Patient Medication Summary Completed 01/19/2010 Visit Plan: Check CT head Increase Bysto lic to 5mg QD BP check in 2wks 01/04/2010 Appointment: Yaima Johnson WPtel: [address] [place] [address] ACUTE ILLNESS 01/04/2010 Patient Education: Patient Medication Summary Completed 01/04/2010 Appointment: Yaima Johnson WPtel: [address] [place] [address] BP CHECK 12/21/2009 Patient Education: Patient Medication Summary Completed 12/21/2009 Visit Plan: Change cenestin back to Liu emigdio Cont to moniter BP BP check in 1wk 12/14/2009 Appointment: Yaima Johnson WPtel: [address] [place] [address] FOLLOW UP 12/14/2009 Patient Education: Patient Medication Summary Completed 12/14/2009 Appointment: Lizzette Lozano WPtel: [address] [place] [address] FOLLOW UP 11/23/2009 Patient Education: Patient Medication Summary Completed 11/23/2009 Appointment: Yaima Johnson WPtel: [address] [place] [address] US LAB 09/29/2009 Patient Education: Patient Medication Summary Completed 09/29/2009 Appointment: Yaima Johnson WPtel: [address] [place] [address] LAB 08/12/2009 Patient Education: Patient Medication Summary Completed 08/12/2009 Referral: Richmond Berger WPtel: [address] [id number] [place] Referral Appointment Requested Referral: Jayce Boyce WPtel: [address] [id number] [place] Referral Appointment Requested Referral: Naldo Johnson WPtel: [address] [id number] [place] Referral Initiated Referral: Naldo Johnson WPtel: [address] [id number] [place] Referral Appointment Requested Instructions Comment . [...] or signs of divertuclitis develop notify . flako note. Refils. Alprazolam # 90, -written RX [...]
--- OUTSIDE RECORDS SUMMARY | 2019-08-15 06:07 | XMS REPORT | CCD ---
Author Author Fay Johnson D.O. 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 Name Role Phone Yaima Johnson D.O., PP Unavailable CCM Unavailable Summary Purpose Interface Exchange Insurance Providers Payer name Policy type / Coverage type Covered democrat ID Effective Begin Date Effective End Date [employer] MEDICARE [place] B [place] Medicare Part B [id number] 2018 Unknown [facility] Medicare Part B [id number] 2018 Unknown Family History Family History data not found Social History Social History Element Codes Description Effective Dates Marital status Unknown 05/16/[address]: [id number] Never smoker 04/05/2011 Allergies, Adverse Reactions, Alerts [...] Instructions Probiotic 10 billion cell capsule RxNorm: 5844354 1 Capsule(s) O ral QD 07/03/2019 No Stop Date Active cetirizine 10 mg tablet RxNorm: 0441127 1 Tablet(s) Oral QD 020 No Stop Date Active levothyroxine 50 mcg tablet RxNorm: 718811 1 Tablet(s) Oral QD 06/0612/20/2019 Active Macrobid 100 mg capsule RxNorm: 621471 1 Capsule(s) Oral two ti mes a day 04/12/2019 04/19/2019 Inactive Toprol XL 25 mg tablet,extended release RxNorm: 698544 1 Tablet (s) PO QD 03/13/2019 09/08/2019 Active Generic For:TOPROL X L 25MG TAB SA 12/21/2015 9:08:41 AM Mobic 7.5 mg tablet RxNorm: 030308 1 Tablet(s) PO QOD opposite days as aleve 11/21/2018 11/21/2018 Inactive dicyclomine 10 mg capsule RxNorm: 980627 1 Capsule(s) P O TID as needed for abdominal pain 08/23/2018 No Stop Date Active alprazolam 0.25 mg tablet RxNorm: 481036 1 Tablet(s) PO Q8H as needed for anxiety 08/10/2018 11/20/2018 Inactive [AttnRPh: Saving apply/adjudicate RxGRP:SG20 RxBIN:[id number] RxPCN: ID#:[id number]] levothyroxine 25 mcg tablet RxNorm: 592062 1 Tablet(s) PO QD replaces 50mcg dose 08/06/2018 10/04/2018 Inactive levothyroxine 25 mcg tablet RxNorm: 911613 1 Tablet(s) PO QD replaces 50mcg dose 08/06/2018 08/05/2018 Inactive levothyroxine 50 mcg tablet RxNorm: 787237 1 Tablet(s) PO QD 201808/05/2018 Inactive Generic For:*SYNTHROID 0.05M G TAB 08/09/2016 8:59:33 AM Mobic 7.5 mg tablet RxNorm: 173938 1 Tablet(s) PO QOD opposite days as aleve 07/10/2018 09/07/2018 Inactive Mobic 7.5 mg tablet RxNorm: 865362 1 Tablet(s) PO QD 07/10/201807/09 Inactive Toprol XL 25 mg tablet,extended release RxNorm: 365032 1 Tablet (s) PO QD 06/18/2018 03/12/2019 Inactive Generic For:TOPROL X L 25MG TAB SA 12/21/2015 9:08:41 AM amoxicillin 500 mg capsule RxNorm: 452454 1 Capsule(s) PO TID 06/0406/10/2018 Inactive amoxicillin 500 mg capsule RxNorm: 498235 1 Capsule(s) PO TID 06/0406/03/2018 Inactive Skelaxin 800 mg tablet RxNorm: 954406 1 Tablet(s) PO BI D as needed for muscle spasm 05/31/2018 No Stop Date Active levothyroxine 50 mcg tablet RxNorm: 446944 1 Tablet(s) PO QD 201707/25/2018 Inactive Generic For:*SYNTHROID 0.05M G TAB 08/09/2016 8:59:33 AM Toprol XL 25 mg tablet,extended release RxNorm: 433303 1 Tablet (s) PO QD 12/19/2017 06/16/2018 Inactive Generic For:TOPROL X L 25MG TAB SA 12/21/2015 9:08:41 AM ranitidine 150 mg tablet RxNorm: 809846 1 Tablet(s) PO BID 12/12/19 18 05/31/2018 Inactive levothyroxine 50 mcg tablet RxNorm: 899549 1 Tablet(s) PO QD TAKE 1 TABLET BY MOUTH EVERY DAY 08/03/2017 02/02/2018 Inactive Generic For:*SYN THROID 0.05MG TAB 08/09/2016 8:59:33 AM Singulair 10 mg tablet RxNorm: 049580 1 Tablet(s) PO QHS 07/11/2017 0 09/10/2017 Inactive dicyclomine 10 mg capsule RxNorm: 835533 1 Capsule(s) P O TID as needed for abdominal pain 06/08/2017 08/22/2018 Inactive ranitidine 150 mg tablet RxNorm: 959522 1 Tablet(s) PO BID 06/08/19 18 09/05/2017 Inactive Toprol XL 25 mg tablet,extended release RxNorm: 384828 1 Tablet (s) PO QD 06/08/2017 12/19/2017 Inactive Generic For:TOPROL X L 25MG TAB SA 12/21/2015 9:08:41 AM betamethasone dipropionate 0.05 % topical cream RxNorm: 2389 20 1 Application TOP QHS 03/28/2017 10/03/2018 Inactive levothyroxine 50 mcg tablet RxNorm: 849957 1 Tablet(s) PO QD TAKE 1 TABLET BY MOUTH EVERY DAY 02/03/2017 08/01/2017 Inactive Generic For:*SYN THROID 0.05MG TAB 08/09/2016 8:59:33 AM ranitidine 150 mg tablet RxNorm: 301099 1 Tablet(s) PO BID 12/16/19 17 06/08/2017 Inactive Toprol XL 25 mg tablet,extended release RxNorm: 840128 1 Tablet (s) PO QD 12/15/2016 06/08/2017 Inactive Generic For:TOPROL X L 25MG TAB SA 12/21/2015 9:08:41 AM ranitidine 150 mg tablet RxNorm: 805452 1 Tablet(s) PO BID 11/12/19 17 12/10/2016 Inactive ranitidine 75 mg tablet RxNorm: 533688 1 Tablet(s) PO QD 10/21/2016 0 11/10/2016 Inactive ranitidine 75 mg tablet RxNorm: 909582 1 Tablet(s) PO QD 10/21/2016 0 10/20/2016 Inactive Tamiflu 75 mg capsule RxNorm: 365089 1 Capsule(s) PO BID 09/12/2016 0 09/16/2016 Inactive Promethegan 25 mg rectal suppository RxNorm: 372801 1 S uppository RTL Q4H as needed 09/12/2016 03/27/2017 Inactive levothyroxine 50 mcg tablet RxNorm: 393823 TAKE 1 TABLET BY GIDEON TH EVERY DAY 08/09/2016 02/03/2017 Inactive Generic For:*SYNTHRO ID 0.05MG TAB 08/09/2016 8:59:33 AM famotidine 40 mg tablet RxNorm: 971207 1 Tablet(s) PO BID 07/22/2016 10/20/2016 Inactive clotrimazole-betamethasone 1 %-0.05 % topical cream RxNorm: 874626 1 Application TOP BID to rash prn--was supposed to be cream not lotion 06/23/2016 Inactive famotidine 40 mg tablet RxNorm: 110366 1 Tablet(s) PO BID 06/23/2016 07/21/2016 Inactive Toprol XL 25 mg tablet,extended release RxNorm: 400814 1 Tablet (s) PO QD 06/14/2016 12/15/2016 Inactive Generic For:TOPROL X L 25MG TAB SA 12/21/2015 9:08:41 AM dicyclomine 10 mg capsule RxNorm: 493926 1 Capsule(s) P O TID as needed for abdominal pain 04/26/2016 06/07/2017 Inactive dicyclomine 10 mg capsule RxNorm: 220850 1 Capsule(s) P O TID as needed for abdominal pain 04/26/2016 06/08/2017 Inactive famotidine 40 mg tablet RxNorm: 587627 1 Tablet(s) PO QD 04/26/2016 0 06/22/2016 Inactive Protonix 40 mg tablet,delayed release RxNorm: 447947 1 Tablet(s ) PO QD 02/05/2016 03/27/2017 Inactive levothyroxine 50 mcg tablet RxNorm: 530470 1 Tablet(s) PO QD 201507/22/2016 Inactive Toprol XL 25 mg tablet,extended release RxNorm: 271600 TAKE ONE TABLET BY MOUTH EVERY DAY 12/21/2015 06/14/2016 Inactive Generic For:TOPR OL XL 25MG TAB SA 12/21/2015 9:08:41 AM Protonix 40 mg tablet,delayed release RxNorm: 080801 1 Tablet(s ) PO QD 07/27/2015 01/22/2016 Inactive levothyroxine 50 mcg tablet RxNorm: 631489 1 Tablet(s) PO QD 201501/17/2016 Inactive Phenergan 25 mg rectal suppository RxNorm: 674241 1 Sup pository RTL Q4H as needed for nausea and vomiting 07/20/2015 12/08/2015 Inactive Toprol XL 25 mg tablet,extended release RxNorm: 758314 1 Tablet (s) PO QD 06/15/2015 12/11/2015 Inactive clotrimazole-betamethasone 1 %-0.05 % topical cream RxNorm: 514493 1 Application TOP BID to rash prn--was supposed to be cream not lotion 05/20/2015 Inactive Protonix 40 mg tablet,delayed release RxNorm: 999178 1 Tablet(s) 1 Tablet(s) PO QD 04/23/2015 07/27/2015 Inactive levothyroxine 50 mcg tablet RxNorm: 990718 1 Tablet(s) PO QD 201407/21/2015 Inactive Lidoderm 5 % (700 mg/patch) adhesive patch RxNorm: 9853938 1-2 Unit Dose TOP QD on for 12hrs then off for 12hrs 04/23/2015 03/27/2016 Inactive Miralax 17 gram oral powder packet RxNorm: 308392 1/2 U nit Dose PO every other day 03/24/2015 03/29/2015 Inactive levothyroxine 50 mcg tablet RxNorm: 824740 1 Tablet(s) PO QD 201404/19/2015 Inactive dicyclomine 10 mg capsule RxNorm: 409879 1 Capsule(s) P O TID as needed for abdominal pain 02/19/2015 04/25/2016 Inactive dicyclomine 10 mg capsule RxNorm: 054858 1 Capsule(s) P O TID as needed for abdominal pain 12/25/2014 02/18/2015 Inactive Protonix 40 mg tablet,delayed release RxNorm: 027449 1 Tablet(s ) PO BID 12/25/2014 03/04/2015 Inactive levothyroxine 50 mcg tablet RxNorm: 284797 1 Tablet(s) PO QD 201402/18/2015 Inactive Flonase 50 mcg/actuation nasal spray,suspension RxNorm: 8963 23 2 [place] NASAL QHS 12/25/2014 10/03/2018 Inactive [SAVINGS FOR NON -COVERED DRUGS -- BIN:[id number], PCN: ASPROD1, Group: XXXXX, ID# [id number], Questions: . THIS IS NOT INSURANCE.] Toprol XL 25 mg tablet,extended release RxNorm: 371509 1 Tablet (s) PO QD 12/01/2014 05/29/2015 Inactive dicyclomine 10 mg capsule RxNorm: 819274 1 Capsule(s) P O TID as needed for abdominal pain 12/01/2014 12/24/2014 Inactive levothyroxine 75 mcg tablet RxNorm: 420012 1 Tablet(s) PO QD 201412/24/2014 Inactive [AttnRPh: Saving apply/adjud icate RxGRP:SG20 RxBIN:[id number] RxPCN: ID#:[id number]] Protonix 40 mg tablet,delayed release RxNorm: 448375 1 Tablet(s) BID 1 Tablet(s) PO QD 11/04/2014 12/24/2014 Inactive dicyclomine 10 mg capsule RxNorm: 523781 1 Capsule(s) P O TID as needed for abdominal pain 11/04/2014 11/30/2014 Inactive Protonix 40 mg tablet,delayed release RxNorm: 416720 Ta blet(s) 1 Tablet(s) PO QD 10/14/2014 11/03/2014 Inactive Flonase 50 mcg/actuation nasal spray,suspension RxNorm: 8963 23 2 [place] NASAL QHS 09/01/2014 12/24/2014 Inactive [SAVINGS FOR NON -COVERED DRUGS -- BIN:[id number], PCN: ASPROD1, Group: XXXXX, ID# [id number], Questions: . THIS IS NOT INSURANCE.] Toprol XL 25 mg tablet,extended release RxNorm: 931885 Tablet(s) 1/2 Tablet(s) PO QD 08/28/2014 11/25/2014 Inactive [SAVINGS FOR UNI NSURED PATIENTS -- BIN:814799, PCN: ASPROD1, Group: [id number], ID# [id number], Process claim through [facility], for questions: . THIS IS NOT INSURANCE.] estradiol 0.01% (0.1 mg/gram) vaginal cream RxNorm: 764019 1 Gram(s) VAG Insert vaginally at bedtime, Monday, Monday and Monday06/26/2014 5 Inactive Toprol XL 25 mg tablet,extended release RxNorm: 638902 1/2 Tabl et(s) PO QD 06/06/2014 08/27/2014 Inactive [SAVINGS FOR UNINSUR ED PATIENTS -- BIN:322057, PCN: ASPROD1, Group: [id number], ID# [id number], Process claim through [employer], for questions: . THIS IS NOT INSURANCE.] estradiol 0.5 mg tablet RxNorm: 646914 1 Tablet(s) VAG Place one tablet in the vagina at bedtime three times a week 06/02/2014 06/25/2014 Inactive Estring 2 mg vaginal RxNorm: 628446 VAG Insert vaginall y and remove after 90 days 05/27/2014 06/01/2014 Inactive Toprol XL 25 mg tablet,extended release RxNorm: 824651 1/2 Tabl et(s) PO QD 04/15/2014 04/14/2014 Inactive Protonix 40 mg tablet,delayed release RxNorm: 731805 1 Tablet(s ) PO QD 04/15/2014 10/14/2014 Inactive estradiol 0.5 mg tablet RxNorm: 365373 1 Tablet(s) VAG Place one tablet in the vagina at bedtime twice a week 04/15/2014 06/01/2014 Inactive Toprol XL 25 mg tablet,extended release RxNorm: 379473 1/2 Tabl et(s) PO QD 04/15/2014 06/05/2014 Inactive [SAVINGS FOR UNINSUR ED PATIENTS -- BIN:686624, PCN: ASPROD1, Group: [id number], ID# [id number], Process claim through [facility], for questions: . THIS IS NOT INSURANCE.] levothyroxine 75 mcg tablet RxNorm: 741223 1 Tablet(s) PO QD 201304/07/2014 Inactive [AttnRPh: Saving apply/adjud icate RxGRP:SG20 RxBIN:[id number] RxPCN:HT ID#:[id number]] Flonase 50 mcg/actuation nasal spray,suspension RxNorm: 8963 23 1 [place] NASAL BID 04/08/2014 08/31/2014 Inactive levothyroxine 75 mcg tablet RxNorm: 351217 1 Tablet(s) PO QD 201310/04/2014 Inactive [AttnRPh: Saving apply/adjud icate RxGRP:SG20 RxBIN:[id number] RxPCN:HT ID#:[id number]] estradiol 0.5 mg tablet RxNorm: 334822 Tablet(s) PO Debra ce one tablet in the vagina at bedtime one time weekly 04/08/2014 04/07/2014 Inactive levothyroxine 75 mcg tablet RxNorm: 538083 1 Tablet(s) PO QD 201304/07/2014 Inactive [AttnRPh: Saving apply/adjud icate RxGRP:SG20 RxBIN:[id number] RxPCN:HT ID#:[id number]] Skelaxin 800 mg tablet RxNorm: 102655 1 Tablet(s) PO TI D as needed for muscle spasm 03/05/2014 11/03/2014 Inactive alprazolam 0.25 mg tablet RxNorm: 766034 1 Tablet(s) PO Q8H as needed for anxiety 02/27/2014 08/05/2018 Inactive [AttnRPh: Saving apply/adjudicate RxGRP:SG20 RxBIN:[id number] RxPCN:HT ID#:[id number]] Synthroid 75 mcg tablet RxNorm: 487656 1 Tablet(s) PO QD 11/29/2013 0 11/03/2014 Inactive levothyroxine 75 mcg tablet RxNorm: 046421 1 Tablet(s) PO QD -N eed labs 11/27/2013 03/19/2014 Inactive [AttnRPh: Saving jessica ly/adjudicate RxGRP:SG20 RxBIN:[id number] RxPCN:HT ID#:[id number]] Protonix 40 mg tablet,delayed release RxNorm: 497617 1 Tablet(s ) PO QD 10/07/2013 04/04/2014 Inactive Synthroid 75 mcg tablet RxNorm: 208849 1 Tablet(s) PO QD 09/02/2013 0 11/28/2013 Inactive Zithromax 500 mg tablet RxNorm: 068712 1 Tablet(s) PO QD 07/29/2013 0 08/04/2013 Inactive prednisone 20 mg tablet RxNorm: 428988 1 Tablet(s) PO QD 07/29/2013 0 08/02/2013 Inactive Synthroid 75 mcg tablet RxNorm: 691954 1 Tablet(s) PO Q D Patient wants it put on hold 05/14/2013 09/02/2013 Inactive Synthroid 75 mcg tablet RxNorm: 001718 1 Tablet(s) PO QD 05/01/2013 1 07/14/2012 Inactive Flagyl 500 mg tablet RxNorm: 402826 1 Tablet(s) PO BID 03/20/2013 Inactive Cipro 500 mg tablet RxNorm: 818039 1 Tablet(s) PO QD 03/20/201304/02 Inactive levothyroxine 75 mcg tablet RxNorm: 731169 1 Tablet(s) PO QD 201205/03/2013 Inactive Septra DS 800 mg-160 mg tablet RxNorm: 185189 1 Tablet(s) PO BI D antibiotic 11/05/2012 11/09/2012 Inactive Bystolic 5 mg tablet RxNorm: 890925 1 Tablet(s) PO QD 10/10/20120 08/2018 Inactive Bystolic 5 mg tablet RxNorm: 455596 1 Tablet(s) PO QD 10/10/20120 02/2013 Inactive Protonix 40 mg tablet,delayed release RxNorm: 385041 1 Tablet(s ) PO QD 09/24/2012 09/18/2013 Inactive Synthroid 75 mcg tablet RxNorm: 150990 1 Tablet(s) PO QD 08/01/2012 0 09/23/2012 Inactive Synthroid 75 mcg tablet RxNorm: 958998 1 Tablet(s) PO QD Brand name only 07/03/2012 07/31/2012 Inactive Skelaxin 800 mg tablet RxNorm: 115876 1 Tablet(s) PO TID prn spasm 05/02/2012 03/04/2014 Inactive Zithromax Z-Leonel 250 mg tablet RxNorm: 560693 Tablet(s) PO As Di rected 04/12/2012 05/01/2012 Inactive levothyroxine 75 mcg tablet RxNorm: 907450 1 Tablet(s) PO QD 201108/05/2018 Inactive levothyroxine 75 mcg tablet RxNorm: 499290 1 Tablet(s) PO QD 201107/01/2012 Inactive Ultram 50 mg tablet RxNorm: 922904 1-2 Tablet(s) PO TID as need ed for migraine 04/03/2012 11/03/2014 Inactive Vimovo 500 mg-20 mg tablets,immediate & delayed release RxNo rm: 902625 1 Tablet(s) PO BID for pain 03/28/2012 07/25/2012 Inactive levothyroxine 75 mcg tablet RxNorm: 518533 1 Tablet(s) PO QD 201104/02/2012 Inactive levothyroxine 50 mcg tablet RxNorm: 467751 1 Tablet(s) PO QD 201109/23/2012 Inactive levothyroxine 50 mcg tablet RxNorm: 954292 1 Tablet(s) PO QD 201101/31/2012 Inactive Septra DS 800 mg-160 mg Tab RxNorm: 642790 1 Tablet(s) PO BID 11/2111/26/2011 Inactive mupirocin 2 % Ointment RxNorm: 031971 1 Application TOP TID 012 11/28/2011 Inactive Protonix 40 mg tablet,delayed release RxNorm: 238044 1 Tablet(s ) PO QD 09/13/2011 09/24/2012 Inactive hydrocodone-acetaminophen 5 mg-500 mg Tab RxNorm: 891093 1 Tablet(s) PO Q4-6H as needed for pain 07/13/2011 11/21/2011 Inactive Skelaxin 800 mg tablet RxNorm: 945908 1 Tablet(s) PO TID prn spasm 06/30/2011 11/21/2011 Inactive Skelaxin 800 mg Tab RxNorm: 015391 1 Tablet(s) PO TID prn spasm No Stop Date Active potassium chloride ER 10 mEq Cap RxNorm: 2563199 2 Capsule(s) PO QD 12/30/2010 01/30/2011 Inactive potassium chloride ER 10 mEq Cap RxNorm: 7806148 1 Capsule(s) PO QD 12/29/2010 12/29/2010 Inactive Take 2 tablets by mouth on M , Monday, Monday and 1 tablet by mouth on Monday, , Monday and Monday Premarin 0.9 mg Tab RxNorm: 226146 1 Tablet(s) PO QD 12/09/201001/07 Inactive potassium chloride ER 10 mEq Cap RxNorm: 7996424 1 Capsule(s) PO QD 12/07/2010 No Stop Date Active Take 2 tablets by mouth on M , Monday, Monday and 1 tablet by mouth on Monday, , Monday and Monday promethazine 12.5 mg Rectal Suppository RxNorm: 423935 1 Applic ation RTL Q6-8H 12/07/2010 12/16/2010 Inactive prn nausea and vomit ing potassium chloride ER 10 mEq Cap RxNorm: 4033053 1 Capsule(s) PO QD 12/03/2010 No Stop Date Active MWF take 2 tablets daily. T nighat one tablet daily on other days. Protonix 40 mg Tab RxNorm: 516458 1 Tablet(s) PO QD 09/27/20102011 Inactive cefdinir 300 mg Cap RxNorm: 849692 2 Capsule(s) PO QD 08/05/201007/2010 Inactive cefdinir 300 mg Cap RxNorm: 988263 2 Capsule(s) PO QD 08/05/201008/03 Inactive Premarin 1.25 mg Tab RxNorm: 835110 1 Tablet(s) PO QD 06/14/201012/2010 Inactive lisinopril-hydrochlorothiazide 10 mg-12.5 mg Tab RxNorm: 707740 1 Tablet(s) PO 06/07/2010 11/04/2010 Inactive alprazolam 0.25 mg Tab RxNorm: 450577 1 Tablet(s) PO TI D written script provided to patient. 05/24/2010 06/22/2010 Inactive Treximet 85 mg-500 mg Tab RxNorm: 966530 1 Tablet(s) PO PRN 010 09/23/2012 Inactive lisinopril-hydrochlorothiazide 20 mg-12.5 mg Tab RxNorm: 197 886 1 Tablet(s) PO QD 05/12/2010 11/04/2010 Inactive alprazolam 0.25 mg Tab RxNorm: 507283 1 Tablet(s) PO TI D written script provided to patient. 04/19/2010 05/23/2010 Inactive Macrobid 100 mg Cap RxNorm: 1031316 1 Capsule(s) PO BID 04/08/2010 Inactive Premarin 1.25 mg Tab RxNorm: 137144 1 Tablet(s) PO QD 03/22/201002/2011 Inactive Amitriptyline 10 mg Tab RxNorm: 074244 1 Tablet(s) PO QD 03/22/2010 0 06/19/2010 Inactive Protonix 40 mg Tab RxNorm: 498499 1 Tablet(s) PO QD 03/22/20102010 Inactive alprazolam 0.25 mg Tab RxNorm: 624315 1 Tablet(s) PO TID 03/10/2010 1 06/08/2009 Inactive Macrobid 100 mg Cap RxNorm: 1377368 1 Capsule(s) PO QD 03/09/2010 Inactive Bystolic 5 mg Tab RxNorm: 905811 1 Tablet(s) PO QD Fi ll at 30 if insurance will not accept 03/01/2010 11/04/2010 Inactive Protonix 40 mg Tab RxNorm: 362024 1 Tablet(s) PO QD 11/23/20092009 Inactive Premarin 1.25 mg Tab RxNorm: 134122 1 Tablet(s) PO QD 11/23/200912/03 Inactive Bentyl 10 mg Cap RxNorm: 564724 1 Capsule(s) PO QID 11/23/20092010 Inactive Elavil 10 mg Tab RxNorm: 585085 1 Tablet(s) PO QPM 11/19/2009 011 Inactive Estrace 0.01% (0.1 mg/gram) vaginal cream RxNorm: 133076 1 Application VAG weekly No Start Date Active Protonix 40 mg tablet,delayed release RxNorm: 935485 1 Tablet(s ) PO QD No Start Date Active fluticasone propionate 50 mcg/actuation nasal spray,suspensi on RxNorm: 5415251 2 [place] NASAL QD No Start Date Active Vitamin D3 2,000 unit tablet RxNorm: 992710 1 Tablet(s) PO QD No Star t Date Active BIOFREEZE Top RxNorm: Topical No Start Date Active multivitamin chewable tablet RxNorm: 1 Tablet(s) PO QD No Start Date Active Estring 2 mg vaginal RxNorm: 679271 VAG Insert vaginall y and remove after 90 days No Start Date 05/26/2014 Inactive Premarin 0.625 mg tablet RxNorm: 657345 1 Tablet(s) PO QD No Start Date 04/07/2014 Inactive Miralax 17 gram/dose oral powder RxNorm: 861861 1 capful PO QD No S tart Date 08/05/2018 Inactive diazepam 5 mg tablet RxNorm: 078681 2 Tablet(s) PO before MRI No St art Date 10/03/2018 Inactive Protonix 40 mg tablet,delayed release RxNorm: 219638 1 Tablet(s ) PO QD No Start Date 07/26/2015 Inactive B12 sublingual RxNorm: 26998 sublingual No Start Date 03/27/2017 Inact adrian Treximet 85 mg-500 mg Tab RxNorm: 485211 Tablet(s) PO PRN No Start Date 05/11/2010 Inactive Gemma 180 mg Tab RxNorm: 518638 1 Tablet(s) PO QD No Start Date Inactive Cranberry Concentrate capsule RxNorm: 1 Capsule(s) PO QD No St art Date 07/02/2019 Inactive Gemma Allergy 180 mg tablet RxNorm: 520624 1 Tablet(s) PO QD No S tart Date 08/31/2014 Inactive estradiol 0.01% (0.1 mg/gram) vaginal cream RxNorm: 021982 1 Gram(s) VAG Insert vaginally at bedtime, Monday, Monday and Monday No Start Date 5 Inactive Tylenol Ex Str Arthritis Pain 500 mg tablet RxNorm: 481561 2 Ta blet(s) PO TID No Start Date 08/05/2018 Inactive Toprol XL 25 mg tablet,extended release RxNorm: 549743 1 Tablet (s) PO QD No Start Date 11/30/2014 Inactive Ultram 50 mg tablet RxNorm: 646705 1-2 Tablet(s) PO TID as need ed for migraine No Start Date 04/02/2012 Inactive Premarin 0.9 mg Tab RxNorm: 809082 1 Tablet(s) PO QD No Start Date Inactive Xyzal 5 mg tablet RxNorm: 129321 1 Tablet(s) PO QD No Start Date 06/06 Inactive Bystolic 5 mg Tab RxNorm: 248099 1/2 Tablet(s) PO QD No Start Date Inactive Ondansetron HCl 4 mg Tab RxNorm: 896050 1 Tablet(s) PO TID or every 8hrs as needed for nausea No Start Date 11/21/2011 Inactive Protonix 40 mg tablet,delayed release RxNorm: 277961 1 Tablet(s ) PO BID No Start Date 12/24/2014 Inactive potassium chloride ER 10 mEq Cap RxNorm: 7380020 1 Capsule(s) PO QD No Start Date 12/02/2010 Inactive Miralax 17 gram/dose oral powder RxNorm: 929058 1 capful PO QD No S tart Date 03/29/2015 Inactive levothyroxine 75 mcg tablet RxNorm: 837989 1 Tablet(s) PO QD si x days a week No Start Date 12/24/2014 Inactive Cenestin 1.25 mg Tab RxNorm: 263547 1 Tablet(s) PO QD No Start Date 0 01/03/2010 Inactive calcium-vitamin D3 500 mg oral wafer RxNorm: 1 Tablet(s) PO QD No Start Date 12/08/2015 Inactive Vimovo 500 mg-20 mg tablet,immediate & delayed release RxNor m: 254943 1 Tablet(s) PO QD No Start Date 11/03/2014 Inactive alprazolam 0.25 mg tablet RxNorm: 559699 1 Tablet(s) PO Q8H as needed for anxiety/stress No Start Date 12/24/2014 Inactive levothyroxine 50 mcg tablet RxNorm: 763542 1 Tablet(s) PO QD No Sta rt Date 06/23/2019 Inactive betamethasone dipropionate 0.05 % topical cream RxNorm: 2389 20 1 Application TOP QHS No Start Date 03/27/2017 Inactive meloxicam 15 mg tablet RxNorm: 791568 1 Tablet(s) PO QD as needed N o Start Date 04/11/2019 Inactive cetirizine 10 mg capsule RxNorm: 3760553 1 Capsule(s) PO QD No Star t Date 09/10/2017 Inactive Skelaxin 800 mg Tab RxNorm: 325373 Tablet(s) PO PRN No Start Date Inactive Zithromax Z-Leonel 250 mg tablet RxNorm: 344270 Tablet(s) PO As Di rected No Start Date 04/11/2012 Inactive Zithromax Z-Leonel 250 mg Tab RxNorm: 917392 Tablet(s) PO as direc sheridan No Start Date 11/15/2010 Inactive Gemma 180 mg tablet RxNorm: 855883 1 Tablet(s) PO QD No Start Date 12/24/2014 Inactive Anusol-HC 2.5 % Rectal Cream RxNorm: 349795 Application RTL BID for 1wk No Start Date 12/19/2011 Inactive metoprolol succinate ER 25 mg 24 hr Tab RxNorm: 872568 1/2 Tabl et(s) PO QD No Start Date 10/03/2012 Inactive clotrimazole-betamethasone 1 %-0.05 % Lotion RxNorm: 625223 Application TOP BID to rash No Start Date 05/15/2011 Inactive ranitidine 150 mg tablet RxNorm: 090074 1 Tablet(s) PO QD No Start Date 12/06/2018 Inactive ranitidine 150 mg tablet RxNorm: 855876 1 Tablet(s) PO BID No Start Date 11/10/2016 Inactive promethazine 12.5 mg Rectal Suppository RxNorm: 233537 1 Applic ation RTL Q6-8H No Start Date 12/06/2010 Inactive Maxalt-[facility] NURSE 10 mg disintegrating tablet RxNorm: 522623 1 Tablet(s) PO at headache onset--may repeat in 2hrs if needed No Start Date 12/24/2014 Inactive Benadryl 25 mg capsule RxNorm: 3795694 Capsule(s) PO as needed No S tart Date 12/24/2014 Inactive Cranberry Concentrate 500 mg capsule RxNorm: 586848 1 Capsule(s ) PO QD No Start Date 09/10/2017 Inactive Mobic 15 mg tablet RxNorm: 880906 1 Tablet(s) PO on opposite da ys of Aleve No Start Date 11/20/2018 Inactive Bystolic 5 mg tablet RxNorm: 803354 1 Tablet(s) PO QD No Start Date 0 10/09/2012 Inactive Premarin 1.25 mg Tab RxNorm: 553415 1 Tablet(s) PO QD No Start Date 1 Inactive clotrimazole-betamethasone 1 %-0.05 % topical cream RxNorm: 860630 Application TOP BID to rash prn--was supposed to be cream not lotion No Start Date 12/19/2011 Inactive azithromycin 250 mg Tab RxNorm: 336445 2 Tablet(s) PO Q D take 2 tablets (500 mg) by oral route once daily for 1 day then 1 tablet (250 mg) by oral route once daily for 4 days No Start Date 06/06/2010 Inactive hydrocodone-acetaminophen 5 mg-500 mg Tab RxNorm: 586853 1 Tablet(s) PO Q4-6H as needed for pain No Start Date 07/12/2011 Inactive Levbid 0.375 mg 12 hr Tab RxNorm: 8928450 1 Tablet(s) PO BID as needed for stomach cramping No Start Date 11/21/2011 Inactive Phenergan 25 mg rectal suppository RxNorm: 207879 1 Sup pository RTL Q4H as needed for nausea and vomiting No Start Date 07/19/2015 Inactive baclofen 10 mg tablet RxNorm: 819043 1 Tablet(s) PO QHS No Start Da te 11/03/2014 Inactive loratadine 10 mg tablet RxNorm: 815218 1 Tablet(s) PO QD No Start D ate 10/03/2018 Inactive famotidine 40 mg tablet RxNorm: 545491 1 Tablet(s) PO BID No Start Date 06/22/2016 Inactive Zithromax Z-Leonel 250 mg Tab RxNorm: 207282 Tablet(s) PO as direc sheridan No Start Date 11/15/2010 Inactive Singulair 10 mg tablet RxNorm: 725296 1 Tablet(s) PO QHS No Start D ate 07/10/2017 Inactive Premarin 0.625 mg/g Vaginal Cream RxNorm: 203752 1 Gram (s) VAG QHS 2-3 times weekly No Start Date 01/05/2011 Inactive Alprazolam 0.25 mg Tab RxNorm: 292628 1 Tablet(s) PO TID No Start D ate 03/09/2010 Inactive Claritin 10 mg tablet RxNorm: 758448 1 Tablet(s) PO QD No Start Date [...] Result Date S ervice Location GFR CALC 5580199 GFR AA >60 ML/MIN 01/14/2011 Unknown GFR CALC 4341692 GFR NON-AA >60 ML/MIN 01/14/2011 Unknown COMPREHENSIVE METABOLIC 38849 AST 15 U/L 2010 Unknown COMPREHENSIVE METABOLIC 64983 ALT 17 IU/L 2010 Unknown COMPREHENSIVE METABOLIC 99973 BUN 12 MG/DL 2010 Unknown COMPREHENSIVE METABOLIC 30571 ALBUMIN 4.0 GM/DL 2010 Unknown COMPREHENSIVE METABOLIC 73106 CHLORIDE 101 MMOL/L 01/14 Unknown COMPREHENSIVE METABOLIC 52490 BILI TOT 0.3 MG/DL 2010 Unknown COMPREHENSIVE METABOLIC 01430 ALK PHOS 53 U/L 2010 Unknown COMPREHENSIVE METABOLIC 27826 SODIUM 136 MMOL/L 01/14 Unknown COMPREHENSIVE METABOLIC 99353 CREATININE 0.60 MG/DL 01/03 Unknown COMPREHENSIVE METABOLIC 37790 CALCIUM 9.3 MG/DL 2010 Unknown COMPREHENSIVE METABOLIC 13363 POTASSIUM 4.1 MMOL/L 01/14 Unknown COMPREHENSIVE METABOLIC 17889 PROT TOT 7.0 GM/DL 2010 Unknown COMPREHENSIVE METABOLIC 85472 Glucose 92 MG/DL 2010 Unknown COMPREHENSIVE METABOLIC 74975 BICARB 27 MMOL/L 2010 Unknown COMPREHENSIVE METABOLIC 87457 ANION GAP 8 MEQ/L 2010 Unknown ERYTHROCYTE SEDIMENTATION RATE 37443 ESR 39 MM/HR 01/05/2011 Unknown COMPREHENSIVE METABOLIC 05994 AST 16 U/L 2010 Unknown COMPREHENSIVE METABOLIC 33090 ALT 19 U/L 2010 Unknown COMPREHENSIVE METABOLIC 70603 BUN 15 MG/DL 2010 Unknown COMPREHENSIVE METABOLIC 86565 ALBUMIN 3.8 GM/DL 2010 Unknown COMPREHENSIVE METABOLIC 17653 CHLORIDE 101 MMOL/L 01/05 Unknown COMPREHENSIVE METABOLIC 14097 BILI TOT 0.3 MG/DL 2010 Unknown COMPREHENSIVE METABOLIC 60024 ALK PHOS 55 U/L 2010 Unknown COMPREHENSIVE METABOLIC 64632 SODIUM 139 MMOL/L 01/05 Unknown COMPREHENSIVE METABOLIC 17210 CREATININE 0.59 MG/DL 08/2010 Unknown COMPREHENSIVE METABOLIC 47313 CALCIUM 8.9 MG/DL 2010 Unknown COMPREHENSIVE METABOLIC 46803 POTASSIUM 3.8 MMOL/L 01/05 Unknown COMPREHENSIVE METABOLIC 92946 PROT TOT 6.7 GM/DL 2010 Unknown COMPREHENSIVE METABOLIC 27056 Glucose 121 MG/DL 2010 Unknown COMPREHENSIVE METABOLIC 28627 BICARB 28 MMOL/L 2010 Unknown COMPREHENSIVE METABOLIC 95933 ANION GAP 10 MMOL/L 2010 Unknown GFR CALC 5157772 GFR AA >60 ML/MIN 01/05/2011 Unknown GFR CALC 4512952 GFR NON-AA >60 ML/MIN 01/05/2011 Unknown COMPLETE BLOOD COUNT 16075 WBC 8.7 10e9/L 01/06/20 11 Unknown COMPLETE BLOOD COUNT 59223 RBC 4.78 10e12/L 2010 Unknown COMPLETE BLOOD COUNT 22323 HGB 13.3 g/dL 1 Unknown COMPLETE BLOOD COUNT 71393 HCT DET 40.6 % 1 Unknown COMPLETE BLOOD COUNT 23957 MCV 84.9 fL 1 Unknown COMPLETE BLOOD COUNT 96576 MCH 27.8 pg 1 Unknown COMPLETE BLOOD COUNT 58882 MCHC 32.8 g/dL 1 Unknown COMPLETE BLOOD COUNT 01673 PLT 273 10e9/L 01/06/20 11 Unknown COMPLETE BLOOD COUNT 65189 MPV 9.8 fL 1 Unknown COMPLETE BLOOD COUNT 21311 AMANDA % 65.9 % 1 Unknown COMPLETE BLOOD COUNT 97159 LY % 24.5 % 1 Unknown COMPLETE BLOOD COUNT 92184 MON % 6.9 % 1 Unknown COMPLETE BLOOD COUNT 86747 EOS % 2.1 % 1 Unknown COMPLETE BLOOD COUNT 34412 BASO % 0.6 % 1 Unknown COMPLETE BLOOD COUNT 52244 RDW 14.7 % 1 Unknown COMPLETE BLOOD COUNT 11446 ABS AMANDA 5.73 10e9/L 011 Unknown COMPLETE BLOOD COUNT 15043 ABS LYMPH 2.13 10e9/L 011 Unknown COMPLETE BLOOD COUNT 87520 ABS MONO 0.60 10e9/L 011 Unknown COMPLETE BLOOD COUNT 45125 ABS EOS 0.18 10e9/L 011 Unknown COMPLETE BLOOD COUNT 11102 ABS BASO 0.05 10e9/L 011 Unknown COMPLETE BLOOD COUNT 76605 RDW-SD 44.7 fL 1 Unknown NO UA [id number] NO UA CANCELED 07/08/2010 Unknown Procedures Procedure Codes Date URINALYSIS NONAUTO W/O SCOPE CPT-4: 85991 04/12/2019 URINE CULTURE/ COLONY COUNT CPT-4: 07038 04/12/2019 URINE CULTURE/ COLONY COUNT CPT-4: 02390 01/14/2019 URINALYSIS NONAUTO W/O SCOPE CPT-4: 30244 01/14/2019 INITIAL PREVENTIVE EXAM CPT-4: G0402 11/21/2018 URINALYSIS NONAUTO W/O SCOPE CPT-4: 31975 11/01/2018 URINE CULTURE/ COLONY COUNT CPT-4: 96919 11/01/2018 URINE CULTURE/ COLONY COUNT CPT-4: 11033 06/13/2018 URINALYSIS NONAUTO W/O SCOPE CPT-4: 15389 05/31/2018 URINE CULTURE/ COLONY COUNT CPT-4: 49070 05/31/2018 IIV4 VACCINE 3 YRS+ IM AND UP CPT-4: 15925 03/22/2018 IMMUNIZATION ADMIN CPT-4: 30543 03/22/2018 TDAP VACCINE 7 YRS/> IM CPT-4: 71162 12/28/2017 IMMUNIZATION ADMIN CPT-4: 29838 12/28/2017 SHINGRIX HZV VACC RECOMBINANT IM CPT-4: 69509 018 IMMUNIZATION ADMIN CPT-4: 69989 10/04/2017 IIV4 VACCINE 3 YRS+ IM AND UP CPT-4: 12766 03/28/2017 IMMUNIZATION ADMIN CPT-4: 24018 03/28/2017 INFLUENZA ASSAY W/OPTIC CPT-4: 36867 09/12/2016 FLU VACCINE 3 YRS & > IM UP 64 CPT-4: 53606 6 IMMUNIZATION ADMIN CPT-4: 10880 04/22/2016 OCCULT BLOOD FECES CPT-4: 87577 01/04/2016 THER/PROPH/DIAG INJ SC/IM CPT-4: 10107 07/20/2015 PROMETHAZINE HCL INJECTION CPT-4: J2550 07/20/2015 FLU VACCINE 3 YRS & > IM UP 64 CPT-4: 44674 5 IMMUNIZATION ADMIN CPT-4: 88146 03/09/2015 URINALYSIS NONAUTO W/O SCOPE CPT-4: 01624 07/10/2014 URINE CULTURE/ COLONY COUNT CPT-4: 01866 07/10/2014 URINE CULTURE/ COLONY COUNT CPT-4: 78403 07/14/2011 URINALYSIS NONAUTO W/O SCOPE CPT-4: 39713 07/14/2011 FLU VACCINE 3 YRS & > IM UP 64 CPT-4: 65769 2 IMMUNIZATION ADMIN CPT-4: 38058 06/28/2011 URINALYSIS NONAUTO W/O SCOPE CPT-4: 44060 03/23/2011 URINE CULTURE/ COLONY COUNT CPT-4: 95065 03/23/2011 ROUTINE VENIPUNCTURE CPT-4: 79237 01/14/2011 COMPREHEN METABOLIC PANEL CPT-4: 52920 01/14/2011 ROUTINE VENIPUNCTURE CPT-4: 38860 01/05/2011 COMPLETE CBC W/AUTO DIFF WBC CPT-4: 34947 01/05/2011 RBC SED RATE AUTOMATED CPT-4: 78958 01/05/2011 COMPREHEN METABOLIC PANEL CPT-4: 72451 01/05/2011 URINALYSIS NONAUTO W/O SCOPE CPT-4: 70726 11/16/2010 URINE CULTURE/ COLONY COUNT CPT-4: 07441 11/16/2010 DRAIN/INJECT JOINT/BURSA CPT-4: 13661 11/04/2010 TRIAMCINOLONE ACET INJ NOS CPT-4: J3301 11/04/2010 METHYLPREDNISOLONE 80 MG INJ CPT-4: J1040 11/04/2010 URINALYSIS NONAUTO W/O SCOPE CPT-4: 77452 07/05/2010 URINE CULTURE/ COLONY COUNT CPT-4: 90092 07/05/2010 URINALYSIS NONAUTO W/O SCOPE CPT-4: 24483 06/28/2010 URINE CULTURE/ COLONY COUNT CPT-4: 32473 06/28/2010 URINALYSIS NONAUTO W/O SCOPE CPT-4: 35417 06/14/2010 URINE CULTURE/ COLONY COUNT CPT-4: 98245 06/14/2010 URINE CULTURE/ COLONY COUNT CPT-4: 23928 04/19/2010 OCCULT BLOOD FECES CPT-4: 93800 04/12/2010 URINALYSIS NONAUTO W/O SCOPE CPT-4: 91921 04/08/2010 URINE CULTURE/ COLONY COUNT CPT-4: 90978 04/08/2010 ASSAY, GLUCOSE, BLOOD QUANT CPT-4: 54249 03/09/2010 URINALYSIS NONAUTO W/O SCOPE CPT-4: 56756 03/09/2010 FLU VACCINE 3 YRS & > IM UP 64 CPT-4: 48457 0 IMMUNIZATION ADMIN CPT-4: 25207 03/09/2010 URINALYSIS NONAUTO W/O SCOPE CPT-4: 38671 09/29/2009 URINALYSIS NONAUTO W/O SCOPE CPT-4: 82637 08/12/2009 Vital Signs Date Vital 07/03/2019 Blood [...] 1: 130/70 Code: 8480-6 BMI: 29.6 Code: 40181-0 Heart Rate 1: 76 bpm Height: 5'2" [...] 1: 126/62 Code: 8480-6 BMI: 29.6 Code: 01844-0 Heart Rate 1: 88 bpm Height: 5'3" Respiratory Rate: 20 bpm Temperature: 36 .8 (C) / 98.3 (F) Weight: 167 lbs 05/31/2018 Blood Pressure 1: 140/80 Code: 8480-6 Heart Rate 1: 74 bpm Respiratory Rate: 16 bpm SpO2: 97% Temperature: 36.3 (C) / 97.3 (F) We ight: 165 lbs 02/06/2018 Blood Pressure 1: 124/78 Code: 8480-6 BMI: 29.8 Code: 99780-5 Heart Rate 1: 84 bpm Height: 5'3" Respiratory Rate: 20 bpm SpO2: 97% Tempera ture: 36.6 (C) / 97.8 (F) Weight: 168 lbs 12/18/2017 Blood Pressure 1: 116/78 Code: 8480-6 BMI: 29.6 Code: 22348-7 Heart Rate 1: 88 bpm Height: 5'3" Respiratory Rate: 20 bpm Temperature: 36 .6 (C) / 97.9 (F) Weight: 167 lbs 12/11/2017 Blood Pressure 1: 122/76 Code: 8480-6 He art Rate 1: 78 bpm 09/11/2017 Blood Pressure 1: 126/82 Code: 8480-6 BMI: 29.1 Code: 53110-1 Heart Rate 1: 68 bpm Height: 5'3" Respiratory Rate: 20 bpm SpO2: 96% Tempera ture: 36.6 (C) / 97.9 (F) Weight: 164 lbs 03/28/2017 Blood Pressure 1: 114/64 Code: 8480-6 BMI: 27.8 Code: 64453-0 Heart Rate 1: 76 bpm Height: 5'3" Respiratory Rate: 20 bpm SpO2: 98% Tempera ture: 36.4 (C) / 97.6 (F) Weight: 157 lbs 09/12/2016 Blood Pressure 1: 126/70 Code: 8480-6 BMI: 29.9 Code: 23085-2 Heart Rate 1: 92 bpm Height: 5'3" Respiratory Rate: 20 bpm SpO2: 97% Tempera ture: 37.0 (C) / 98.6 (F) Weight: 168 lbs 9 oz 07/28/2016 Blood Pressure 1: 128/74 Code: 8480-6 Heart Rate 1: 92 bpm Respiratory Rate: 24 bpm SpO2: 96% Temperature: 36.4 (C) / 97.6 (F) We ight: 168 lbs 04/26/2016 Blood Pressure 1: 116/74 Code: 8480-6 BMI: 29.9 Code: 81627-2 Heart Rate 1: 92 bpm Height: 5'3" Respiratory Rate: 20 bpm Temperature: 36 .9 (C) / 98.4 (F) Weight: 169 lbs 12/09/2015 Blood Pressure 1: 116/72 Code: 8480-6 BMI: 31.7 Code: 24397-1 Heart Rate 1: 80 bpm Height: 5'3" Respiratory Rate: 20 bpm Temperature: 36 .6 (C) / 97.9 (F) Weight: 179 lbs 09/10/2015 Blood Pressure 1: 122/78 Code: 8480-6 BMI: 32.2 Code: 07089-8 Heart Rate 1: 88 bpm Height: 5'3" Respiratory Rate: 20 bpm Temperature: 37 .3 (C) / 99.1 (F) Weight: 182 lbs 04/23/2015 Blood Pressure 1: 126/70 Code: 8480-6 BMI: 31.2 Code: 49234-4 Heart Rate 1: 92 bpm Height: 5'3" Respiratory Rate: 20 bpm Temperature: 36 .8 (C) / 98.2 (F) Weight: 176 lbs 03/24/2015 Blood Pressure 1: 126/78 Code: 8480-6 BMI: 31.2 Code: 58626-2 Heart Rate 1: 80 bpm Height: 5'3" Respiratory Rate: 22 bpm Temperature: 36 .1 (C) / 96.9 (F) Weight: 176 lbs 03/05/2015 Blood Pressure 1: 132/80 Code: 8480-6 BMI: 31.5 Code: 39535-3 Heart Rate 1: 92 bpm Height: 5'2" Respiratory Rate: 20 bpm Temperature: 36 .4 (C) / 97.6 (F) Weight: 175 lbs 02/19/2015 Blood Pressure 1: 134/80 Code: 8480-6 BMI: 31.5 Code: 78973-5 Heart Rate 1: 88 bpm Height: 5'2" Respiratory Rate: 20 bpm Temperature: 36 .7 (C) / 98.0 (F) Weight: 175 lbs 12/25/2014 Blood Pressure 1: 122/80 Code: 8480-6 BMI: 31.0 Code: 12369-1 Heart Rate 1: 88 bpm Height: 5'2" Respiratory Rate: 20 bpm Temperature: 36 .6 (C) / 97.8 (F) Weight: 172 lbs 11/26/2014 Blood Pressure 1: 116/68 Code: 8480-6 BMI: 30.2 Code: 16463-5 Heart Rate 1: 76 bpm Height: 5'2" Respiratory Rate: 20 bpm Temperature: 36 .5 (C) / 97.7 (F) Weight: 168 lbs 11/04/2014 Blood Pressure 1: 116/64 Code: 8480-6 BMI: 30.8 Code: 03843-8 Heart Rate 1: 92 bpm Height: 5'2" Respiratory Rate: 20 bpm Temperature: 36 .7 (C) / 98.1 (F) Weight: 171 lbs 09/01/2014 Blood Pressure 1: 130/82 Code: 8480-6 BMI: 30.6 Code: 88059-4 Heart Rate 1: 92 bpm Height: 5'2" Respiratory Rate: 20 bpm Temperature: 36 .9 (C) / 98.4 (F) Weight: 170 lbs 06/02/2014 Blood Pressure 1: 126/80 Code: 8480-6 BMI: 30.2 Code: 45951-5 Heart Rate 1: 88 bpm Height: 5'2" Respiratory Rate: 20 bpm Temperature: 36 .7 (C) / 98.1 (F) Weight: 168 lbs 05/26/2014 Blood Pressure 1: 132/78 Code: 8480-6 He art Rate 1: 74 bpm 04/08/2014 Blood Pressure 1: 156/94 Code: 8480-6 BMI: 30.2 Code: 07054-9 Heart Rate 1: 96 bpm Height: 5'2" Respiratory Rate: 20 bpm Temperature: 37 .1 (C) / 98.7 (F) Weight: 168 lbs 03/05/2014 Blood Pressure 1: 144/86 Code: 8480-6 BMI: 29.9 Code: 27848-5 Heart Rate 1: 100 bpm Height: 5'2" Respiratory Rate: 20 bpm Temperature: 36 .7 (C) / 98.1 (F) Weight: 166 lbs 07/29/2013 Blood Pressure 1: 124/80 Code: 8480-6 Heart Rate 1: 92 bpm Respiratory Rate: 20 bpm Temperature: 36.2 (C) / 97.2 (F) Weight: 167 lbs 03/20/2013 Blood Pressure 1: 116/84 Code: 8480-6 BMI: 30.8 Code: 39300-5 Heart Rate 1: 96 bpm Height: 5'3" Respiratory Rate: 20 bpm Temperature: 36 .6 (C) / 97.8 (F) Weight: 174 lbs 02/12/2013 Blood Pressure 1: 122/80 Code: 8480-6 BMI: 30.5 Code: 46000-8 Heart Rate 1: 112 bpm Height: 5'3" Respiratory Rate: 20 bpm Temperature: 36 .9 (C) / 98.4 (F) Weight: 172 lbs 11/05/2012 BMI: 31.2 Code: 47476-8 Height: 5'3" Weight: 176 lbs 10/04/2012 Heart Rate 1: 84 bpm Height: 5'3" Respiratory Rate: 20 bpm Temperature: 36.8 (C) / 98.3 (F) Weight: 09/24/2012 Blood Pressure 1: 122/88 Code: 8480-6 BMI: 30.8 Code: 41607-7 Heart Rate 1: 80 bpm Height: 5'3" Respiratory Rate: 20 bpm Temperature: 36 .8 (C) / 98.2 (F) Weight: 174 lbs 05/10/2012 Blood Pressure 1: 124/68 Code: 8480-6 BMI: 30.1 Code: 29095-5 Heart Rate 1: 64 bpm Height: 5'3" Temperature: 36.6 (C) / 97.8 (F) Weight: 170 lbs 03/07/2012 Blood Pressure 1: 132/78 Code: 8480-6 BMI: 29.2 Code: 58990-2 Heart Rate 1: 92 bpm Height: 5'3" Respiratory Rate: 20 bpm Temperature: 36 .7 (C) / 98.1 (F) Weight: 165 lbs 02/01/2012 Blood Pressure 1: 116/78 Code: 8480-6 BMI: 29.1 Code: 76423-8 Heart Rate 1: 84 bpm Height: 5'3" Respiratory Rate: 20 bpm Temperature: 36 .8 (C) / 98.2 (F) Weight: 164 lbs 12/20/2011 Blood Pressure 1: 128/80 Code: 8480-6 BMI: 29.1 Code: 11350-8 Heart Rate 1: 88 bpm Height: 5'3" Respiratory Rate: 20 bpm Temperature: 36 .4 (C) / 97.6 (F) Weight: 164 lbs 11/22/2011 Blood Pressure 1: 104/60 Code: 8480-6 BMI: 28.5 Code: 18491-7 Heart Rate 1: 78 bpm Height: 5'3" Temperature: 36.6 (C) / 97.9 (F) Weight: 161 lbs 07/11/2011 Blood Pressure 1: 118/72 Code: 8480-6 BMI: 30.6 Code: 12769-5 Heart Rate 1: 92 bpm Height: 5'3" Respiratory Rate: 20 bpm Temperature: 36 .8 (C) / 98.2 (F) Weight: 173 lbs 07/06/2011 Blood Pressure 1: 126/80 Code: 8480-6 BMI: 31.0 Code: 57228-3 Heart Rate 1: 88 bpm Height: 5'3" Respiratory Rate: 20 bpm Temperature: 36 .7 (C) / 98.1 (F) Weight: 175 lbs 05/26/2011 Blood Pressure 1: 100/78 Code: 8480-6 BMI: 31.0 Code: 15563-2 Heart Rate 1: 74 bpm Height: 5'3" Temperature: 36.4 (C) / 97.6 (F) Weight: 175 lbs 05/16/2011 Blood Pressure 1: 116/80 Code: 8480-6 BMI: 31.0 Code: 88070-5 Heart Rate 1: 88 bpm Height: 5'3" Respiratory Rate: 20 bpm Temperature: 36 .8 (C) / 98.2 (F) Weight: 175 lbs 05/05/2011 Blood Pressure 1: 126/80 Code: 8480-6 BMI: 30.6 Code: 09098-7 Heart Rate 1: 96 bpm Height: 5'3" Respiratory Rate: 20 bpm Temperature: 36 .4 (C) / 97.6 (F) Weight: 173 lbs 04/05/2011 Blood Pressure 1: 144/90 Code: 8480-6 BMI: 30.1 Code: 91365-7 Heart Rate 1: 92 bpm Height: 5'3" Respiratory Rate: 20 bpm Temperature: 36 .6 (C) / 97.8 (F) Weight: 170 lbs 03/02/2011 Blood Pressure 1: 136/94 Code: 8480-6 Heart Rate 1: 92 bpm Temperature: 36.6 (C) / 97.8 (F) Weight: 171 lbs 01/05/2011 Blood Pressure 1: 132/86 Code: 8480-6 BMI: 30.6 Code: 72554-6 Heart Rate 1: 98 bpm Height: 5'3" [...] 1: 122/68 Code: 8480-6 BMI: 29.8 Code: 87403-9 Height: 5'3" Temperature: 36.3 (C) / 97.4 [...] 1: 142/90 Code: 8480-6 BMI: 30.5 Code: 87490-3 Heart Rate 1: 96 bpm Height: 5'3" [...] Rendon would like to proceed with heart director of cath lab draw 01/14/2011 shortness of breath 01/05/2011 urinary [...] Diagnosis: Hilar lymphadenopathy[ICD10: R59.0] Yaima JOHNSON DO [employer] CPT-4: 05258 07/03/2019 ([id number]) OFFICE/OUTPATIENT VISIT EST Diagnosis: Low back pain[ICD10: M54.5] Jane SAMUELS S. Jaqui WOO [facility] CPT-4: 66811 04/12/2019 ([id number]) OFFICE/OUTPATIENT VISIT EST Diagnosis: Pain in thoracic spine[ICD10: M54.6] Diagnosis: Muscle spasm of back[ICD10: M62.830] Yaima JOHNSON DO [facility] CPT-4: 54880 01/16/2019 ([id number]) NURSE/OUTPATIENT VISIT EST Diagnosis: Low back pain[ICD10: M54.5] Diagnosis: Hematuria, unspecified[ICD10: R31.9] Yaima JOHNSON [facility] CPT-4: 81017 01/14/2019 ([id number]) OFFICE/OUTPATIENT VISIT EST Diagnosis: Left lower quadrant pain[ICD10: R10.32] Yaima JOHNSON [facility] CPT-4: 45261 01/09/2019 ([id number]) NURSE/OUTPATIENT VISIT EST Diagnosis: Hematuria, unspecified[ICD10: R31.9] Yaima JOHNSON [facility] CPT-4: 48795 11/01/2018 ([id number]) OFFICE/OUTPATIENT VISIT EST Diagnosis: Hypothyroidism, unspecified[ICD10: E03.9] Diagnosis: Other fatigue[ICD10: R53.83] Diagnosis: Other cervical disc degeneration, unspecified cervical region[ICD10: M50.30] Yaima JOHNSON [facility] CPT-4: 97977 10/04/2018 ([id number]) OFFICE/OUTPATIENT VISIT EST Diagnosis: Hypothyroidism, unspecified[ICD10: E03.9] Diagnosis: Impaired fasting glucose[ICD10: R73.01] Diagnosis: Cervicalgia[ICD10: M54.2] [facility]: 69609 08/06/2018 ([id number]) OFFICE/OUTPATIENT VISIT EST Diagnosis: Radiculopathy, lumbosacral region[ICD10: M54.17] Diagnosis: Abrasion, left lower leg, sequela[ICD10: S80.812S] Yaima JOHNSON [facility] CPT-4: 58976 06/21/2018 ([id number]) NURSE/OUTPATIENT VISIT EST Diagnosis: Urinary tract infection, site not specified[ICD10: N39.0] Yaima JOHNSON [facility] CPT-4: 50827 06/13/2018 ([id number]) OFFICE/OUTPATIENT VISIT EST Diagnosis: Other dorsalgia[ICD10: M54.89] [facility]: 41874 05/31/2018 ([id number]) NURSE/OUTPATIENT VISIT EST Diagnosis: FLU VACCINE[ICD10: Z23] Y[facility]a [facility] CPT-4: 74904 03/22/2018 ([id number]) OFFICE/OUTPATIENT VISIT EST Diagnosis: Hypothyroidism, unspecified[ICD10: E03.9] Diagnosis: Essential (primary) hypertension[ICD10: I10] Diagnosis: Other seasonal allergic rhinitis[ICD10: J30.2] [facility]: 90938 02/06/2018 ([id number]) NURSE/OUTPATIENT VISIT EST Diagnosis: Laceration of blood vessel of right index finger, initial encounter[ICD10: S65.510A] Diagnosis: VACCINE FOR TDAP[ICD10: Z23] Yaima JOHNSON [facility] CPT-4: 51201 12/28/2017 ([id number]) OFFICE/OUTPATIENT VISIT EST Diagnosis: Tinnitus, bilateral[ICD10: H93.13] [facility]: 95421 12/18/2017 ([id number]) NURSE/OUTPATIENT VISIT EST Diagnosis: VACCIN FOR DISEASE NEC (HPV or Zostavax)[ICD10: Z23] Yaima JOHNSON [facility] CPT-4: 00863 10/04/2017 OFFICE/OUTPATIENT VISIT EST Diagnosis: Hypothyroidism, unspecified[ICD10: E03.9] Diagnosis: Essential (primary) hypertension[ICD10: I10] Diagnosis: Gastro-esophageal reflux disease without esophagitis[ICD10: K21.9] Diagnosis: Pain in right knee[ICD10: M25.561] Diagnosis: Hyperglycemia, unspecified[ICD10: R73.9] Yaima JOHNSON [facility] CPT-4: 58031 09/11/2017 ([id number]) OFFICE/OUTPATIENT VISIT EST Diagnosis: Cervicalgia[ICD10: M54.2] Diagnosis: Hypothyroidism, unspecified[ICD10: E03.9] Diagnosis: Essential (primary) hypertension[ICD10: I10] Diagnosis: Irritant contact dermatitis, unspecified cause[ICD10: L24.9] Diagnosis: FLU VACCINE[ICD10: Z23] Yaima [facility] CPT-4: 62462 03/28/2017 ([id number]) OFFICE/OUTPATIENT VISIT EST Diagnosis: Influenza due to identified novel influenza A virus with other manifestations[ICD10: J09.X9] Yaima JOHNSON [facility] CPT-4: 30971 09/12/2016 ([id number]) OFFICE/OUTPATIENT VISIT EST Diagnosis: Dermatitis, unspecified[ICD10: L30.9] Diagnosis: Pain in right knee[ICD10: M25.561] [facility] CPT[facility]: 32890 07/28/2016 ([id number]) OFFICE/OUTPATIENT VISIT EST Diagnosis: Incisional hernia without obstruction or gangrene[ICD10: K43.2] Diagnosis: Gastro-esophageal reflux disease without esophagitis[ICD10: K21.9] Diagnosis: Radiculopathy, lumbosacral region[ICD10: M54.17] Yaima JOHNSON [facility] CPT-4: 80406 04/26/2016 ([id number]) OFFICE/OUTPATIENT VISIT EST Diagnosis: FLU VACCINE[ICD10: Z23] Yaima [facility] CPT-4: 58777 04/22/2016 ([id number]) OFFICE/OUTPATIENT VISIT EST Diagnosis: Other fecal abnormalities[ICD10: R19.5] [facility]: 80254 01/04/2016 ([id number]) OFFICE/OUTPATIENT VISIT EST 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] Diagnosis: Other specified diseases of liver[ICD10: K76.89] Diagnosis: Irritant contact dermatitis due to detergents[ICD10: L24.0] Yaima JOHNSON DO [facility] CPT-4: 91370 12/09/2015 ([id number]) OFFICE/OUTPATIENT VISIT EST Diagnosis: Pain in thoracic spine[ICD10: M54.6] Diagnosis: Radiculopathy, lumbosacral region[ICD10: M54.17] Diagnosis: Precordial pain[ICD10: R07.2] Yaima JOHNSON DO [facility] CPT-4: 67122 09/10/2015 ([id number]) OFFICE/OUTPATIENT VISIT EST Diagnosis: Nausea[ICD10: R11.0] Yaima JOHNSON DO [employer] CPT-4: 66481 07/20/2015 ([id number]) OFFICE/OUTPATIENT VISIT EST Diagnosis: Pain in left elbow[ICD10: M25.522] Diagnosis: Contusion of left lower leg, sequela[ICD10: S80.12XS] Diagnosis: Pleurodynia[ICD10: R07.81] Yaima HOWELL [employer] CPT-4: 17306 04/23/2015 ([id number]) OFFICE/OUTPATIENT VISIT EST Diagnosis: Unspecified abdominal pain[ICD10: R10.9] Diagnosis: Ventral hernia without obstruction or gangrene[ICD10: K43.9] Diagnosis: Constipation, unspecified[ICD10: K59.00] Yaima JOHNSON DO [employer] CPT-4: 79548 03/24/2015 ([id number]) OFFICE/OUTPATIENT VISIT EST Diagnosis: FLU VACCINE[ICD10: Z23] Yaima EUGENE [employer] CPT-4: 61824 03/09/2015 ([id number]) OFFICE/OUTPATIENT VISIT EST 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] Diagnosis: Generalized abdominal pain[ICD10: R10.84] Yaima JOHNSON DO [facility] CPT-4: 88075 03/05/2015 OFFICE/OUTPATIENT VISIT EST Diagnosis: ABDOMINAL PAIN[ICD9: 789.00] Diagnosis: HYPOTHYROIDISM[ICD9: 244.9] Diagnosis: HYPERTENSION[ICD9: 401.9] Diagnosis: DIVERTICULITIS, COLONIC[ICD9: 562.11] Diagnosis: DISTURBANCE OF SKIN SENSATION (Paresthesia)[ICD9: 782.0] Yaima JOHNSON DO [facility] CPT-4: 95046 02/19/2015 ([id number]) OFFICE/OUTPATIENT VISIT EST Diagnosis: HYPOTHYROIDISM[ICD9: 244.9] Diagnosis: Diaphoresis[ICD9: 780.8] Yaima DUMONT [facility] CPT-4: 24196 12/25/2014 ([id number]) OFFICE/OUTPATIENT VISIT EST Diagnosis: ABDOMINAL PAIN[ICD9: 789.00] Diagnosis: PAIN, LOWER BACK[ICD9: 724.2] Diagnosis: Contusion of leg[ICD9: 924.5] Yaima JOHNSON [facility] CPT-4: 74434 11/26/2014 ([id number]) OFFICE/OUTPATIENT VISIT EST Diagnosis: IBS[ICD9: 564.1] Diagnosis: GERD[ICD9: 530.81] Yaima JOHNSON [facility] CPT-4: 20787 11/04/2014 ([id number]) OFFICE/OUTPATIENT VISIT EST Diagnosis: Headache[ICD9: 784.0] Diagnosis: Leg pain[ICD9: 729.5] Yaima JOHNSON [facility] CPT-4: 44736 09/01/2014 ([id number]) OFFICE/OUTPATIENT VISIT EST Diagnosis: DYSURIA[ICD9: 788.1] Yaima JOHNSON DO [facility] CPT-4: 84890 07/10/2014 OFFICE/OUTPATIENT VISIT EST Diagnosis: VAGINITIS[ICD9: 623.5] Diagnosis: SINUSITIS, ACUTE[ICD9: 461.9] Yaima JOHNSON DO [facility] CPT-4: 96214 06/02/2014 ([id number]) OFFICE/OUTPATIENT VISIT EST Diagnosis: HYPERTENSION[ICD9: 401.9] Diagnosis: ALLERGIC RHINITIS[ICD9: 477.9] Diagnosis: PAIN, LOWER BACK[ICD9: 724.2] Yaima JOHNSON [facility] CPT-4: 36281 04/08/2014 ([id number]) OFFICE/OUTPATIENT VISIT EST Diagnosis: COUGH[ICD10: R05] Diagnosis: Thoracic back pain[ICD9: 724.1] Yaima JOHNSON [facility] CPT-4: 14437 03/05/2014 ([id number]) OFFICE/OUTPATIENT VISIT EST Diagnosis: SINUSITIS, ACUTE[ICD9: 461.9] Diagnosis: BRONCHITIS, ACUTE[ICD9: 466.0] Yaima JOHNSON [facility] CPT-4: 66675 07/29/2013 ([id number]) OFFICE/OUTPATIENT VISIT EST Diagnosis: ABDOMINAL PAIN[ICD9: 789.00] Diagnosis: Constipation[ICD9: 564.00] Diagnosis: DIVERTICULITIS, COLONIC[ICD9: 562.11] Yaima JOHNSON [facility] CPT-4: 39005 03/20/2013 ([id number]) OFFICE/OUTPATIENT VISIT EST Diagnosis: Plantar fasciitis[ICD9: 728.71] Diagnosis: ALLERGIC RHINITIS[ICD9: 477.9] Yaima JOHNSON [facility] CPT-4: 91579 02/12/2013 OFFICE/OUTPATIENT VISIT EST Diagnosis: Skin lesion[ICD9: 709.9] Diagnosis: Lumbar back pain[ICD9: 724.2] Diagnosis: Muscle spasm[ICD9: 728.85] Diagnosis: Hypothyroid[ICD9: 244.9] Yaima DUMONT [facility] CPT-4: 11477 11/05/2012 ([id number]) OFFICE/OUTPATIENT VISIT EST Diagnosis: Cervicalgia[ICD9: 723.1] Diagnosis: Thoracic back pain[ICD9: 724.1] Diagnosis: SPASM OF MUSCLE[ICD9: 728.85] Yaima JOHNSON [facility] CPT-4: 21980 10/04/2012 ([id number]) OFFICE/OUTPATIENT VISIT EST Diagnosis: MALAISE AND FATIGUE[ICD9: 780.79] Diagnosis: HYPOTHYROIDISM[ICD9: 244.9] Diagnosis: HYPERTENSION[ICD9: 401.9] Yaima MCCORMACKPAOLA Ravi. ORE NDER DO [facility] CPT-4: 05671 09/24/2012 ([id number]) OFFICE/OUTPATIENT VISIT EST Diagnosis: Lateral epicondylitis[ICD9: 726.32] Diagnosis: Wrist pain[ICD9: 719.43] Diagnosis: Numbness and tingling in right hand[ICD9: 782.0] Yaima Johnson YAIMA BreonnaRobin JOSUENDVALORIE DO [facility] CPT-4: 90578 05/10/2012 OFFICE/OUTPATIENT VISIT EST Diagnosis: MALAISE AND FATIGUE[ICD9: 780.79] Diagnosis: HYPOTHYROIDISM[ICD9: 244.9] Diagnosis: Enthesopathy of the wrist and carpus[ICD9: 726.4] Diagnosis: Foot pain[ICD9: 729.5] Diagnosis: DYSPHAGIA NEC[ICD9: 787.29] Yaima Gaytanvalorie SAMUELS S. O RENDER DO [facility] CPT-4: [address] 03/07/2012 ([id number]) OFFICE/OUTPATIENT VISIT EST Diagnosis: HYPOTHYROIDISM[ICD9: 244.9] Yaima Johnson YAIMA S. O RENDER DO [facility] CPT-4: 15661 02/01/2012 ([id number]) OFFICE/OUTPATIENT VISIT EST Diagnosis: MALAISE AND FATIGUE[ICD9: 780.79] Diagnosis: HYPOTHYROIDISM[ICD9: 244.9] Yaima Josuebrandon SAMUELS S. O RENDER DO [facility] CPT-4: 36541 12/20/2011 OFFICE/OUTPATIENT VISIT EST Diagnosis: INSECT BITE HIP/LEG[ICD9: 916.4] Lizzette JOHNSON DO [facility] CPT-4: 00178 11/22/2011 OFFICE/OUTPATIENT VISIT EST Diagnosis: HEMATURIA NOS[ICD9: 599.70] Yaima Josuejulianvalorie YAIMA S. O RENDER DO [facility] CPT-4: 58426 07/14/2011 OFFICE/OUTPATIENT VISIT EST Diagnosis: URINARY TRACT INFECTION[ICD9: 599.0] Diagnosis: DIVERTICULITIS, COLONIC[ICD9: 562.11] Yaima Josuebrandon CHAY RaviRobin [facility] CPT-4: 21554 07/11/2011 OFFICE/OUTPATIENT VISIT EST Diagnosis: TMJ arthritis[ICD9: 524.69] Diagnosis: MIGRAINE NOS/NOT INTRCBL[ICD9: 346.90] Diagnosis: Rectal fissure[ICD9: 565.0] Yaima Josuebrandon WOO [facility] CPT-4: 91844 07/06/2011 OFFICE/OUTPATIENT VISIT EST Diagnosis: SPASM OF MUSCLE[ICD9: 728.85] Diagnosis: PAIN, LOWER BACK[ICD9: 724.2] Yaima Josuebrandon SAMUELS BreonnaRobin [facility] CPT-4: 16331 05/26/2011 OFFICE/OUTPATIENT VISIT EST Diagnosis: PAIN, LOWER BACK[ICD9: 724.2] Diagnosis: SPASM OF MUSCLE[ICD9: 728.85] Yaima Josuebrandon SAMUELS BreonnaRobin [facility] CPT-4: 65535 05/16/2011 OFFICE/OUTPATIENT VISIT EST Diagnosis: PAIN, LOWER BACK[ICD9: 724.2] Diagnosis: ENTHESOPATHY OF HIP[ICD9: 726.5] Diagnosis: Onychomycosis[ICD9: 110.1] Yaima Josuebrandon HOWELL [facility] CPT-4: 37137 05/05/2011 OFFICE/OUTPATIENT VISIT EST Diagnosis: Diverticulitis[ICD9: 562.11] Yaima Josuebrandon Escalera [facility] CPT-4: 32507 04/05/2011 OFFICE/OUTPATIENT VISIT EST Diagnosis: CHEST PAIN NOS[ICD9: 786.50] Diagnosis: PALPITATIONS[ICD9: 785.1] Diagnosis: Pulmonary arterial hypertension[ICD9: 416.8] Yaima Josuebrandon SAMUELS BreonnaRobin [facility] CPT-4: 90384 03/02/2011 OFFICE/OUTPATIENT VISIT EST Yaima Josuebrandon SAMUELS BreonnaRobin JOSUE [facility] CPT- 4: 72615 01/05/2011 ([id number]) OFFICE/OUTPATIENT VISIT EST Yaima Josuebrandon Escalera [facility] CPT-4: 14423 11/16/2010 ([id number]) OFFICE/OUTPATIENT VISIT EST Yaima [facility] CPT-4: 88818 11/04/2010 ([id number]) OFFICE/OUTPATIENT VISIT EST Yaima [facility]RE [facility] CPT-4: 36240 08/05/2010 ([id number]) OFFICE/OUTPATIENT VISIT EST Yaima [facility] CPT-4: 70737 07/23/2010 ([id number]) OFFICE/OUTPATIENT VISIT, EST [facility] CPT-4: 15641 06/07/2010 ([id number]) OFFICE/OUTPATIENT VISIT, EST Yaima ZUNIGA [facility] CPT-4: 91232 05/12/2010 ([id number]) OFFICE/OUTPATIENT VISIT, EST Yaima [facility]UN[facility]A [facility] CPT-4: 72693 04/27/2010 ([id number]) OFFICE/OUTPATIENT VISIT, EST Yaima [facility]A [facility] CPT-4: 25772 04/19/2010 ([id number]) OFFICE/OUTPATIENT VISIT, EST Yaima [facility]UNIGA [facility] CPT-4: 88618 03/09/2010 ([id number]) OFFICE/OUTPATIENT VISIT, EST Yaima [facility]LINE [facility] CPT-4: 87434 01/04/2010 ([id number]) OFFICE/OUTPATIENT VISIT, EST Yaima ZUNIGA [facility] CPT-4: 80600 12/14/2009 ([id number]) OFFICE/OUTPATIENT VISIT, EST Lizzette Lozano [facility] CPT-4: 61303 11/23/2009 Plan of Care Planned Activity Notes [...] Plan: COMPREH[place]AB[place] : [address]-9 Pending 06/18/2019 Care Plan: LIPID PANEL LOINC : 11203-4 Pending 06/18/2019 Care Plan: A1C HPLC LOINC : 88870-0 Pending 06/18/2019 Care Plan: COMPLETE CBC W/AUTO DIFF WBC LOINC : 99880-8 Pending 06/18/2019 Care Plan: ASSAY THYROID STIM [...] ICD-10 : M54.5 04/12/2019 Appointment: Jane Nettles [address] [place] [address] ACUTE ILLNESS 04/12/2019 Appointment: Yaima Johnson WPtel: [address] [place] [address] US CANCELED 02/05/2019 Visit Diagnosis Plan: Pain in thoracic spine Discussio n: Moist Heat Topical Muscle Rub Towel Stretch Skelaxin with Tylenol Arthritis TID Okay to use lidoderm patches Notify if persists ICD-9 : 724.1 ICD-10 : M54.6 01/16/2019 Appointment: Yaima Johnson WPtel: [address] [place] [address] ACUTE ILLNESS 01/16/2019 Appointment: Yaima Johnson WPtel: [address] [place], [place] [phone] UA 01/14/2019 Visit Diagnosis Plan: Left lower quadrant pain Discuss ion: Appears to have a hernia so did discuss surgical evaluation ICD-9 : 789.04 ICD-10 : R10.32 01/09/2019 Appointment: Yaima Johnson WPtel: [address] [place] [address] ACUTE ILLNESS 01/09/2019 Visit Diagnosis Plan: Encounter for [facility] adult medical examination without abnormal findings Discussion: [...] : Z00.00 11/21/2018 Appointment: Yaima Johnson WPtel: [address] [place] [address] WELCOME TO MEDICARE 11/21/2018 Care Plan: Referral Order SNOMED-CT : 30 [id number] Pending 11/21/2018 Appointment: Yaima Johnson WPtel: [address] [place] [address] 11/01/2018 Visit Diagnosis Plan: Hypothyroidism, unspecified Disc ussion: Restart synthroid at 50mcg daily and recheck lab in 3mos ICD-9 : 244.9 ICD-10 : E03.9 10/04/2018 Visit Diagnosis Plan: Other cervical dis c degeneration, unspecified cervical region Discussion: MRI results discussed fw w [facility] Dr. Johnson ICD-9 : 722.4 ICD-10 : M50.30 10/04/2018 Appointment: Yaima Johnson WPtel: [address] [place] [address] FOLLOW UP 10/04/2018 Care Plan: Referral Order SNOMED-CT : 30 [id number] Pending 10/04/2018 Visit Diagnosis Plan: Hypothyroidism, unspecified [...] ICD-10 : M54.2 08/06/2018 Appointment: Yaima Johnsontel: [address] [place] [address] Schedule medicare annual! FOLLOW UP 2018 Patient Education: levothyroxine- [employer] Coupon [phone] [id number] [email or web address]/resources/getResource/[email or web address]-[email or web address] Completed 08/06/2018 Visit Diagnosis Plan: Radiculopathy, lumbosacral regio n Discussion: Daily stretches and see if improves--low dose gabapentin trial q HS if does not improve Lab and fwup in 3mos ICD-9 : 724.4 ICD-10 : M54.17 06/21/2018 Visit Diagnosis Plan: Abrasion, left lower leg, sequel a Discussion: Vitamin E topically for scarring/dryness ICD-9 : 906.2 ICD-10 : S80.812S 06/21/2018 Appointment: Yaima Johnsontel: [address] [place], [place] [phone] ACUTE ILLNESS 06/21/2018 Appointment: Yaima Johnsontel: [address] [place], [place] [phone] UA 06/13/2018 Visit Diagnosis Plan: Other dorsalgia [...] ICD-10 : M54.89 05/31/2018 Appointment: Jane Nettles [address] [place] [address] ACUTE ILLNESS 05/31/2018 Appointment: Yaima Johnson WPtel: [address] [place] [address] US INJECTION 03/22/2018 Patient Education: Patient Medication Summary Completed 03/22/2018 Patient Education: INFLUENZA VACCINE CDC Completed 03/22/2018 Appointment: Yaima Johnson WPtel: [address] [place] [address] US RESCHEDULED 02/14/2018 Visit Diagnosis Plan: Hypothyroidism, [...] ICD-10 : J30.2 02/06/2018 Appointment: Yaima Johnsontel: [address] [place], [place] [phone] [place] FOLLOW UP 02/06/2018 Patient Education: Patient Medication Summary Completed 02/06/2018 Appointment: Yaima Johnson WPtel: [address] [place], [place] [phone] [place] INJECTION 12/28/2017 Patient Education: Patient Medication Summary Completed 12/28/2017 Appointment: Yaima Johnsontel: [address] [place], [place] [phone] US RESCHEDULED 12/25/2017 Visit Diagnosis Plan: Tinnitus, bilateral Discussion: See ENT for hearing eval and further workup ICD-9 : 388.31 ICD-10 : H93.13 12/18/2017 Appointment: Yaima Johnson WPtel: [address] [place], [place] [phone] ACUTE ILLNESS 12/18/2017 Patient Education: Patient Medication Summary Completed 12/18/2017 Patient Education: Tinnitus Completed 12/18/2017 Care Plan: Referral Order SNOMED-CT : 30 [id number] Pending 12/18/2017 Appointment: Yaima Johnson WPtel: [address] [place], [place] [phone] BP CHECK 12/11/2017 Patient Education: Patient Medication Summary Completed 12/11/2017 Referral: Danyel Hernandez WPtel: [facility] [address] Referral Initiated 10/11/2017 Appointment: Yaima Johnson WPtel: [address] [place], [place] [phone] INJECTION 10/04/2017 Patient Education: Patient Medication Summary [...] E03.9 09/11/2017 Appointment: Yaima Johnson WPtel: [phone] [phone] FOLLOW UP 09/11/2017 Patient Education: Patient Medication Summary Completed 09/11/2017 Appointment: Jane Nettles [address] [place] [address] 08/28/17 1715---issue addressed in phone message (km) CANCELED 08/29/2017 Patient Education: Patient Medication Summary Completed 07/11/2017 Care Plan: A1C HPLC LOINC : 56782-2 Pending 07/11/2017 Care Plan: ASSAY OF FREE THYROXINE Pendin g 07/11/2017 Care Plan: ASSAY THYROID STIM HORMONE Pen ding 07/11/2017 Care Plan: COMPLETE CBC W/AUTO DIFF WBC LOINC : 07086-5 Pending 07/11/2017 Care Plan: COMPREH[place] : [address]-4 Pending 07/11/2017 Visit Diagnosis Plan: Irritant contact [...] E03.9 03/28/2017 Appointment: Yaima Johnson WPtel: [phone] [facility] ACUTE ILLNESS 03/28/2017 Patient Education: Patient Medication Summary Completed 03/28/2017 Patient Education: Patient Medication Summary Completed 02/17/2017 Care Plan: ASSAY OF FREE THYROXINE Pendin g 02/17/2017 Care Plan: ASSAY THYROID STIM HORMONE Pen ding 02/17/2017 Care Plan: A1C HPLC LOINC : 23381-7 Pending 02/17/2017 Patient Education: Patient Medication Summary Completed 11/23/2016 Care Plan: A1C HPLC LOINC : 51763-8 Pending 11/23/2016 Patient Education: Patient Medication Summary Completed 11/22/2016 Care Plan: COMPREH[place] : [address]-4 Pending 11/22/2016 Care Plan: ASSAY THYROID STIM HORMONE Pen ding 11/22/2016 Care Plan: ASSAY OF FREE THYROXINE Pendin g 11/22/2016 Care Plan: CBC Pending 11/22/2016 Care Plan: ASSAY TRIIODOTHYRONINE (T3) Pe nding 11/22/2016 Care Plan: ASSAY OF IRON Pending Care Plan: VITAMIN B-12 Pending 11/04 Patient Education: Patient Medication Summary Completed 11/09/2016 Care Plan: US EXAM ABDO BACK WALL COMP L OINC : 45068-9 Pending 11/09/2016 Patient Education: Patient Medication Summary Completed 09/26/2016 Visit Diagnosis Plan: Influenza due to i dentified novel influenza A virus with other manifestations Discussion: Tamiflu for her and ICD-9 : 488.09 ICD-10 : J09.X9 09/12/2016 Visit NOS Plan: Plan Notes: Saline nasal flu shes prn. Tyle... 09/12/2016 Appointment: Yaima Johnson WPtel: [address] [place], [place] [phone] ACUTE ILLNESS 09/12/2016 Patient Education: Patient Medication Summary Completed 09/12/2016 Visit Diagnosis Plan: Pain in right knee Discussion: M RI of right knee scheduled for this weekend by ortho ICD-9 : 719.46 ICD-10 : M25.561 07/28/2016 Visit Diagnosis Plan: Dermatitis, unspecified Discussi on: Use clotrimazole/betamethasone BID to hand rash ICD-9 : 692.9 ICD-10 : L30.9 07/28/2016 Appointment: Yaima Johnson WPtel: [phone] [facility] 07/27 confirmed `sl ACUTE ILLNESS 07/28/2016 Patient [...] see how does 04/26/2016 Appointment: Yaima Johnsontel: [address] [place] [address] ACUTE ILLNESS 04/26/2016 Patient Education: Patient Medication Summary Completed 04/26/2016 Appointment: Yaima Johnson WPtel: [address] [place] [address] US INJECTION 04/22/2016 Patient Education: Patient Medication Summary Completed 04/22/2016 Appointment: Yaima Johnson WPtel: [address] [place] [address] Stool lab 01/04/2016 Patient Education: Patient Medication Summary Completed 01/04/2016 Visit Plan: Calmoseptine to irritated gr oin area Discussed that liver lesion and right kidney cyst are stable dating back to 2009 so likely benign and will recheck in 1year Check CMP and CBC 12/09/2015 Appointment: Yaima Johnson WPtel: [address] [place] [address] FOLLOW UP 12/09/2015 Patient Education: Patient Medication Summary Completed 12/09/2015 Patient Education: Patient Medication Summary Completed 11/26/2015 Care Plan: ECHO EXAM OF ABDOMEN LOINC : 69259-0 Pending 11/26/2015 Care Plan: US EXAM ABDO BACK WALL COMP L OINC : 29447-0 Pending 11/26/2015 Patient Education: Patient Medication Summary Completed 11/10/2015 Care Plan: ASSAY THYROID STIM HORMONE Pen ding 11/10/2015 Care Plan: ASSAY OF FREE THYROXINE Pendin g 11/10/2015 Visit Plan: Start PT for both right leg sciatica and thoracics for chest pain 09/10/2015 Appointment: Yaima Johnson WPtel: [address] [place] [address] ACUTE ILLNESS 09/10/2015 Patient Education: Patient Medication Summary Completed 09/10/2015 Appointment: Yaima Johnson WPtel: [address] [place], [place] [phone] [place] INJECTION 07/20/2015 Patient Education: Patient Medication Summary Completed 07/20/2015 Patient Education: Patient Medication Summary Completed 05/04/2015 Visit Plan: Observe left elbow for next 2 weeks and if not improving let us know Observe left leg bruising Can use voltaren gel to elbow Observe ribs Lidoderm patch for SI joint 04/23/2015 Appointment: Yaima Johnson WPtel: [address] [place], [place] [phone] [place] FOLLOW UP 04/23/2015 Patient Education: Patient Medication Summary Completed 04/23/2015 Patient Education: Patient Medication Summary Completed 04/20/2015 Visit Plan: Discussed CT results Add Milton alax 1/2 cap every other day 03/24/2015 Appointment: Yaima Johnson WPtel: [address] [place], [place] [phone] [place] 03/23 confirmed~sl FOLLOW UP 03/24/2015 Patient Education: Patient Medication Summary Completed 03/24/2015 Appointment: Yaima Johnson WPtel: [address] [place], [place] [phone] [place] INJECTION 03/09/2015 Patient Education: Patient Medication Summary Completed 03/09/2015 Visit Plan: Check CT scan of abdomen and pelvis with oral contrast Thoracic towel stretch 03/05/2015 Appointment: Yaima Johnson WPtel: [address] [place], [place] [phone] [place] FOLLOW UP 03/05/2015 Patient Education: Patient Medication Summary Completed 03/05/2015 Referral: Richmond Berger WPtel: [address] [id number] [place] Referral Initiated 02/23/2015 Visit Plan: Lab [...] and left knee 02/19/2015 Appointment: Yaima Johnsontel: [address] [place] [address] 02/18/15 lm confirmed with cb FOLLOW UP Patient Education: Patient Medication Summary Completed 02/19/2015 Patient Education: Patient Medication Summary Completed 02/04/2015 Appointment: Yaima Johnson WPtel: [address] [place] [address] [place] FOLLOW UP 01/06/2015 Visit Plan: Decrease levothyroxine to 50 mcg daily Recheck TSH and Free T4 in 2mos then fwup 12/25/2014 Appointment: Yaima Johnson WPtel: [address] [place] [address] ACUTE ILLNESS 12/25/2014 Patient Education: Patient Medication Summary Completed 12/25/2014 Patient Education: [facility] - Saving [employer] - Levothyroxine - 18-64 - Dynamic Portal ID Completed 12/25/2014 Patient Education: Patient Medication Summary Completed 12/15/2014 Visit Plan: Observe left leg keep meds s robert Has scheduled for 2nd epidural Recheck 3-4weeks after next epidural 11/26/2014 Appointment: Yaima Johnson WPtel: [address] [place] [address] 11/25 appt confirmed cn FOLLOW UP 11/27/19 15 Patient Education: Patient Medication Summary Completed 11/26/2014 Visit Plan: Increase Protonix to 40mg po BID Add Bentyl 10mg BID and up to TID prn Patient goes for back injection in 3 weeks Fwup 1 week after back injection 11/04/2014 Appointment: Yaima Johnsontel: [address] [place] [address] 11/03/ 11/04 appt confirmed ACUTE ILLNESS 0 11/04/2014 Patient Education: Patient Medication Summary Completed 11/04/2014 Appointment: Yaima Johnson WPtel: [address] [place], [place] [phone] 10/14/14: doing better-canceled appt-lb ACUTE ILL NESS 10/15/2014 Visit Plan: hydration stop benadryl Obse rve and monitor Headaches Leg stretches, going to PT today-have them show stretches Notify if headaches, leg pain return/persist 09/01/2014 Appointment: Yaima Johnson WPtel: [address] [place], [place] [phone] ACUTE ILLNESS 09/01/2014 Patient Education: Patient Medication Summary Completed 09/01/2014 Patient Education: Patient Medication Summary Completed 08/05/2014 Care Plan: ASSAY OF FREE THYROXINE Ordere d 08/05/2014 Care Plan: ASSAY THYROID STIM HORMONE Ord ered 08/05/2014 Appointment: Yaima Johnson WPtel: [address] [place], [place] [phone] UA 07/10/2014 Patient Education: Patient Medication Summary Completed 07/10/2014 Patient Education: Patient Medication Summary Completed 07/03/2014 Care Plan: HEPATIC FUNCTION PANEL Ordered 07/03/2014 Visit Plan: Vaginal ring unable to be in serted do will have to stick with pill vaginally as prescribed for at least 6mo trial Saline nasal flushes and restart flonase 06/02/2014 Appointment: Yaima Johnson WPtel: [address] [place], [place] [phone] FOLLOW UP 06/02/2014 Patient Education: Patient Medication Summary Completed 06/02/2014 Appointment: Yaima Johnson WPtel: [address] [place], [place] [phone] BP CHECK 05/26/2014 Patient Education: Patient Medication Summary Completed 05/26/2014 Patient Education: Patient Medication Summary Completed 05/22/2014 Appointment: Yaima Johnson WPtel: [address] [place], [place] [phone] BP CHECK 05/07/2014 Patient Education: Patient Medication Summary Completed 05/07/2014 Referral: iNtesh Avalos WPtel: [address] Dhiraj 403 [id number] MRI Scheduled at [place], 04/17 3pm Completed 04/30/2014 Appointment: Yaima Johnson WPtel: [address] [place] [address] BP CHECK 04/15/2014 Visit Plan: Decrease premarin to 0.3125m g for 1week then stop Restart estrogen vaginal tabs and Patient requests to see Dr. Restrepo for back but discussed at this time appears to need conservative management such as PT and epidurals Moniter BP 04/08/2014 Appointment: Yaima Johnson WPtel: [address] [place] [address] ACUTE ILLNESS 04/08/2014 Patient Education: Patient Medication Summary Completed 04/08/2014 Appointment: Yaima Johnson WPtel: [address] [place] [address] ACUTE ILLNESS 03/10/2014 Visit Plan: Thoracic stretches daily Ske laxin 800mg BID Use vimovo prn Use gemma prn 03/05/2014 Appointment: Yaima Johnson WPtel: [address] [place] [address] ACUTE ILLNESS 03/05/2014 Patient Education: Patient Medication Summary Completed 03/05/2014 Visit Plan: Saline nasal flushes prn. Ty lenol/Motrin prn headache. Notify if persists/symptoms worsening. Zithromax and Prednisone Supportive care. Rest, Fluids, Tylenol/Motrin prn fever or bodyaches. Notify if worsening symptoms. 07/29/2013 Appointment: Mimi Keenan WPtel: [address] [place] [address] FOLLOW UP 07/29/2013 Patient Education: Patient Medication Summary Completed 07/29/2013 Appointment: Mimi Keenan WPtel: [address] [place] [address] 05/22 patient called back and reschedule d 05/24 vm not set up yet ACUTE ILLNESS 05/27/20 13 Visit Plan: Add miralax Cipro/Flagyl Pt has appointment with GI in NOV 03/20/2013 Appointment: Yaima Johnson WPtel: [address] [place] [address] ACUTE ILLNESS 03/20/2013 Patient Education: Patient Medication Summary Completed 03/20/2013 Visit Plan: Tullicups Stretches, ice, vo ltaren gel TID 02/12/2013 Appointment: Yaima Johnson WPtel: [address] [place] [address] ACUTE ILLNESS 02/12/2013 Patient Education: Patient Medication [...] Oct 2012. 11/05/2012 Appointment: Lizzette Lozano WPtel: [address] [place] [address] ACUTE ILLNESS 11/05/2012 Patient Education: Patient Medication Summary Completed 11/05/2012 Appointment: Yaima Johnson WPtel: [address] [place] [address] FOLLOW UP 10/04/2012 Patient Education: Patient Medication Summary Completed 10/04/2012 Visit Plan: Change toprol back to bystol ic BP check in 3wks Continue to observe hands--no observed bruising today 09/24/2012 Appointment: Yaima Johnson WPtel: [address] [place] [address] 09/21 left message ACUTE ILLNESS 09/24/2012 Patient Education: Patient Medication Summary Completed 09/24/2012 Visit Plan: Proceed with EMG of RUE Cont inue vimovo and skelaxin May use Voltaren gel TID to elbow and wrist 05/10/2012 Appointment: Yaima Johnson WPtel: [address] [place], [place] [address] 05/09 left voicemail ACUTE ILLNESS 05/10/2012 Patient [...] is improving 03/07/2012 Appointment: Yaima Johnson WPtel: [address] [place] [address] FOLLOW UP 03/07/2012 Patient Education: Patient Medication Summary Completed 03/07/2012 Visit Plan: Continue current dose Check TSH, Free T4 in 2mos 02/01/2012 Appointment: Yaima Johnson WPtel: [address] [place] [address] FOLLOW UP 02/01/2012 Patient Education: Patient Medication Summary Completed 02/01/2012 Visit Plan: Levothyroxine 50mcg po daily 12/20/2011 Appointment: Yaima Johnson WPtel: [address] [place], [place] [phone] FOLLOW UP 12/20/2011 Patient Education: Patient Medication Summary Completed 12/20/2011 Appointment: Lizzette Lozano WPtel: [address] [place], [place] [phone] ACUTE ILLNESS 11/22/2011 Patient Education: Patient Medication Summary Completed 11/22/2011 Appointment: Yaima Johnson WPtel: [address] [place], [place] [phone] UA 07/14/2011 Patient Education: Patient Medication Summary Completed 07/14/2011 Visit Plan: Finish current abx Clear liq uids to full liquids and then advance as tolerated If worsens will notify immediately Schedule with Dr. Berger for colonoscopy/EGD 07/11/2011 Appointment: Yaima Johnson WPtel: [address] [place] [address] ER Follow UP 07/11/2011 Patient Education: Patient Medication Summary Completed 07/11/2011 Visit Plan: Take treximet today and skel axin at bedtime Add anusol cream for 1wk Discussed if colon continues to flare-up over the next 6mos will repeat colonoscopy 07/06/2011 Appointment: Yaima Johnson WPtel: [address] [place] [address] ACUTE ILLNESS 07/06/2011 Patient Education: Patient Medication Summary Completed 07/06/2011 Appointment: Yaima Johnson WPtel: [address] [place] [address] INJECTION 06/28/2011 Patient Education: Patient Medication Summary Completed 06/28/2011 Visit Plan: OMT done Increase Skelaxin t o TID Start PT Daily stretches 05/26/2011 Appointment: Yaima Johnson WPtel: [address] [place] [address] ACUTE ILLNESS 05/26/2011 Patient Education: Patient Medication Summary Completed 05/26/2011 Visit Plan: OMT done Daily stretches, bi ofreeze Restart skelaxin 05/16/2011 Appointment: Yaima Johnson WPtel: [address] [place] [address] OMT 05/16/2011 Patient Education: Patient Medication Summary Completed 05/16/2011 Visit Plan: OMT done to back Stretches, moist heat and biofreeze Observe toenails 05/05/2011 Appointment: Yaima Johnson WPtel: [address] [place] [address] ACUTE ILLNESS 05/05/2011 Patient Education: Patient Medication Summary Completed 05/05/2011 Visit Plan: Finish Flagyl Continue Cultu relle and add Levbid for 1more week 04/05/2011 Appointment: Yaima Johnson WPtel: [address] [place], [place] [phone] ER Follow UP 04/05/2011 Patient Education: Patient Medication Summary Completed 04/05/2011 Appointment: Lizzette Lozano WPtel: [address] [place], [place] [phone] ACUTE ILLNESS 03/25/2011 Appointment: Yaima Johnson WPtel: [address] [place], [place] [phone] UA 03/23/2011 Patient Education: Patient Medication Summary Completed 03/23/2011 Visit Plan: Recommend proceed with heart cath Will check PFTs 03/02/2011 Appointment: Yaima Johnson WPtel: [address] [place] [address] FOLLOW UP 03/02/2011 Patient Education: Patient Medication Summary Completed 03/02/2011 Appointment: Yaima Johnson WPtel: [address] [place], [place] [id number] LAB 01/14/2011 Patient Education: Patient Medication Summary Completed 01/14/2011 Appointment: Lizzette Lozano WPtel: [address] [place], [place] [id number] ACUTE ILLNESS 01/05/2011 Patient Education: Patient Medication Summary Completed 01/05/2011 Visit Plan: Once again stressed jcarlosan ce of using premarin vaginal cream routinely to see if helps urinary symptoms Will culture urine Will observe lipomas--discussed may see surgery for removal 11/16/2010 Appointment: Yaima Johnson WPtel: [address] [place] [address] ACUTE ILLNESS 11/16/2010 Patient Education: Patient Medication Summary Completed 11/16/2010 Visit Plan: Injection to bursa as above Pt will continue to moniter BP and pulse off meds Repeat potassium level in 1wk 11/04/2010 Appointment: Yaima Johnson WPtel: [address] [place], [place] [id number] FOLLOW UP 11/04/2010 Patient Education: Patient Medication Summary Completed 11/04/2010 Appointment: Yaima Johnsontel: [address] [place], [place] [phone] FOLLOW UP 08/05/2010 Patient Education: Patient Medication Summary Completed 08/05/2010 Appointment: Yaima Johnson WPtel: [address] [place] [address] ACUTE ILLNESS 07/23/2010 Patient Education: Patient Medication Summary Completed 07/23/2010 Appointment: Yaima Johnsontel: [address] [place] [address] UA 07/05/2010 Patient Education: Patient Medication Summary Completed 07/05/2010 Appointment: Yaima Johnson WPtel: [address] [place] [address] BP CHECK 06/28/2010 Patient Education: Patient Medication Summary Completed 06/28/2010 Appointment: Yaima Johnsontel: [address] [place] [address] UA 06/14/2010 Appointment: Yaima Johnson WPtel: [address] [place] [address] BP CHECK 06/14/2010 Appointment: Yaima Johnson WPtel: [address] [place] [address] BP CHECK 06/14/2010 Patient Education: Patient Medication Summary Completed 06/14/2010 Patient Education: Patient Medication Summary Completed 06/14/2010 Appointment: Yaima Johnsontel: [address] [place] [address] [place] BP CHECK 06/10/2010 Visit Plan: Decrease lisinopril hct to 1 0/12.5mg QD and moniter BP BP check in 2-3wks--if pulse is increasing will go back to bystolic See ENT to evaluate hoarseness 06/07/2010 Appointment: Yaima Johnson WPtel: [address] [place] [address] FOLLOW UP 06/07/2010 Patient Education: Patient Medication [...] (See printoff) 05/12/2010 Appointment: Lizzette Lozano WPtel: [address] [place] [address] ACUTE ILLNESS 05/12/2010 Patient Education: Patient Medication Summary Completed 05/12/2010 Visit Plan: Continue Bentyl at QA and H S Continue protonix but increase to BID for 5-7 days If any fever or signs of divertuclitis develop notify 04/27/2010 Appointment: Yaima Johnson WPtel: [address] [place] [address] ACUTE ILLNESS 04/27/2010 Patient Education: Patient Medication Summary Completed 04/27/2010 Visit Plan: flako barajas. Refils. Kaden hernandez #90, -written RX 04/19/2010 Appointment: Lizzette Lozano WPtel: [address] [place] [address] ACUTE ILLNESS 04/19/2010 Patient Education: Patient Medication Summary Completed 04/19/2010 Appointment: Yaima Johnson WPtel: [address] [place] [address] 04/12/2010 Patient Education: Patient Medication Summary Completed 04/12/2010 Appointment: Yaima Johnson WPtel: [address] [place], [place] [address] UA 04/08/2010 Patient Education: Patient Medication Summary Completed 04/08/2010 Appointment: Yaima Johnson WPtel: [address] [place] [address] FOLLOW UP 03/09/2010 Patient Education: Patient Medication Summary Completed 03/09/2010 Appointment: Yaima Johnson WPtel: [address] [place] [address] BP CHECK 01/19/2010 Patient Education: Patient Medication Summary Completed 01/19/2010 Visit Plan: Check CT head Increase Bysto lic to 5mg QD BP check in 2wks 01/04/2010 Appointment: Yaima Johnson WPtel: [address] [place] [address] ACUTE ILLNESS 01/04/2010 Patient Education: Patient Medication Summary Completed 01/04/2010 Appointment: Yaima Johnson WPtel: [address] [place] [address] BP CHECK 12/21/2009 Patient Education: Patient Medication Summary Completed 12/21/2009 Visit Plan: Change cenestin back to Liu emigdio Cont to moniter BP BP check in 1wk 12/14/2009 Appointment: Yaima Johnson WPtel: [address] [place] [address] FOLLOW UP 12/14/2009 Patient Education: Patient Medication Summary Completed 12/14/2009 Appointment: Lizzette Lozano WPtel: [address] [place] [address] FOLLOW UP 11/23/2009 Patient Education: Patient Medication Summary Completed 11/23/2009 Appointment: Yaima Johnson WPtel: [address] [place] [address] [place] LAB 09/29/2009 Patient Education: Patient Medication Summary Completed 09/29/2009 Appointment: Yaima Johnson WPtel: [address] [place] [address] LAB 08/12/2009 Patient Education: Patient Medication Summary Completed 08/12/2009 Referral: Richmond Berger WPtel: [address] [id number] [place] Referral Appointment Requested Referral: Jayce Boyce WPtel: [address] [id number] [place] Referral Appointment Requested Referral: Naldo Johnson WPtel: [address] [id number] [place] Referral Initiated Referral: Naldo Johnson WPtel: [address] [id number] [place] Referral Appointment Requested Instructions Comment . [...]
--- OUTSIDE RECORDS SUMMARY | 2019-08-15 06:09 | XMS REPORT | CCD ---
Author Author Fay Johnson D.O. Organization [facility] Address [address] [place] [address] Phone Care Team Providers Care Crime Scene Investigator Name Role Phone Yaima Johnson D.O., PP Unavailable CCM Unavailable Summary Purpose Interface Exchange Insurance Providers Payer name Policy type / Coverage type Covered constitution party ID Effective Begin Date Effective End Date [place]IC[place] Medicare Part B [id number] 2018 Unknown [facility] Medicare Part B [id number] 2018 Unknown Family History Family History data not found Social History Social History Element Codes Description Effective Dates Marital status Unknown 05/16/[address]: [id number] Never smoker 04/05/2011 Allergies, Adverse Reactions, Alerts [...] Instructions Probiotic 10 billion cell capsule RxNorm: 3410548 1 Capsule(s) O ral QD 07/03/2019 No Stop Date Active cetirizine 10 mg tablet RxNorm: 9246981 1 Tablet(s) Oral QD 020 No Stop Date Active levothyroxine 50 mcg tablet RxNorm: 190496 1 Tablet(s) Oral QD 06/0612/20/2019 Active Macrobid 100 mg capsule RxNorm: 427838 1 Capsule(s) Oral two ti mes a day 04/12/2019 04/19/2019 Inactive Toprol XL 25 mg tablet,extended release RxNorm: 514308 1 Tablet (s) PO QD 03/13/2019 09/08/2019 Active Generic For:TOPROL X L 25MG TAB SA 12/21/2015 9:08:41 AM Mobic 7.5 mg tablet RxNorm: 407726 1 Tablet(s) PO QOD opposite days as aleve 11/21/2018 11/21/2018 Inactive dicyclomine 10 mg capsule RxNorm: 376731 1 Capsule(s) P O TID as needed for abdominal pain 08/23/2018 No Stop Date Active alprazolam 0.25 mg tablet RxNorm: 426727 1 Tablet(s) PO Q8H as needed for anxiety 08/10/2018 11/20/2018 Inactive [AttnRPh: Saving apply/adjudicate RxGRP:SG20 RxBIN:[id number] RxPCN: ID#:[id number]] levothyroxine 25 mcg tablet RxNorm: 595347 1 Tablet(s) PO QD replaces 50mcg dose 08/06/2018 10/04/2018 Inactive levothyroxine 25 mcg tablet RxNorm: 829119 1 Tablet(s) PO QD replaces 50mcg dose 08/06/2018 08/05/2018 Inactive levothyroxine 50 mcg tablet RxNorm: 744711 1 Tablet(s) PO QD 201808/05/2018 Inactive Generic For:*SYNTHROID 0.05M G TAB 08/09/2016 8:59:33 AM Mobic 7.5 mg tablet RxNorm: 906183 1 Tablet(s) PO QOD opposite days as aleve 07/10/2018 09/07/2018 Inactive Mobic 7.5 mg tablet RxNorm: 839491 1 Tablet(s) PO QD 07/10/201807/09 Inactive Toprol XL 25 mg tablet,extended release RxNorm: 134369 1 Tablet (s) PO QD 06/18/2018 03/12/2019 Inactive Generic For:TOPROL X L 25MG TAB SA 12/21/2015 9:08:41 AM amoxicillin 500 mg capsule RxNorm: 881077 1 Capsule(s) PO TID 06/0406/10/2018 Inactive amoxicillin 500 mg capsule RxNorm: 456840 1 Capsule(s) PO TID 06/0406/03/2018 Inactive Skelaxin 800 mg tablet RxNorm: 884602 1 Tablet(s) PO BI D as needed for muscle spasm 05/31/2018 No Stop Date Active levothyroxine 50 mcg tablet RxNorm: 524683 1 Tablet(s) PO QD 201707/25/2018 Inactive Generic For:*SYNTHROID 0.05M G TAB 08/09/2016 8:59:33 AM Toprol XL 25 mg tablet,extended release RxNorm: 121779 1 Tablet (s) PO QD 12/19/2017 06/16/2018 Inactive Generic For:TOPROL X L 25MG TAB SA 12/21/2015 9:08:41 AM ranitidine 150 mg tablet RxNorm: 519647 1 Tablet(s) PO BID 12/12/19 18 05/31/2018 Inactive levothyroxine 50 mcg tablet RxNorm: 306362 1 Tablet(s) PO QD TAKE 1 TABLET BY MOUTH EVERY DAY 08/03/2017 02/02/2018 Inactive Generic For:*SYN THROID 0.05MG TAB 08/09/2016 8:59:33 AM Singulair 10 mg tablet RxNorm: 830910 1 Tablet(s) PO QHS 07/11/2017 0 09/10/2017 Inactive dicyclomine 10 mg capsule RxNorm: 801764 1 Capsule(s) P O TID as needed for abdominal pain 06/08/2017 08/22/2018 Inactive ranitidine 150 mg tablet RxNorm: 321322 1 Tablet(s) PO BID 06/08/19 18 09/05/2017 Inactive Toprol XL 25 mg tablet,extended release RxNorm: 387367 1 Tablet (s) PO QD 06/08/2017 12/19/2017 Inactive Generic For:TOPROL X L 25MG TAB SA 12/21/2015 9:08:41 AM betamethasone dipropionate 0.05 % topical cream RxNorm: 2389 20 1 Application TOP QHS 03/28/2017 10/03/2018 Inactive levothyroxine 50 mcg tablet RxNorm: 954441 1 Tablet(s) PO QD TAKE 1 TABLET BY MOUTH EVERY DAY 02/03/2017 08/01/2017 Inactive Generic For:*SYN THROID 0.05MG TAB 08/09/2016 8:59:33 AM ranitidine 150 mg tablet RxNorm: 896496 1 Tablet(s) PO BID 12/16/19 17 06/08/2017 Inactive Toprol XL 25 mg tablet,extended release RxNorm: 831119 1 Tablet (s) PO QD 12/15/2016 06/08/2017 Inactive Generic For:TOPROL X L 25MG TAB SA 12/21/2015 9:08:41 AM ranitidine 150 mg tablet RxNorm: 997886 1 Tablet(s) PO BID 11/12/19 17 12/10/2016 Inactive ranitidine 75 mg tablet RxNorm: 720281 1 Tablet(s) PO QD 10/21/2016 0 11/10/2016 Inactive ranitidine 75 mg tablet RxNorm: 288537 1 Tablet(s) PO QD 10/21/2016 0 10/20/2016 Inactive Tamiflu 75 mg capsule RxNorm: 278283 1 Capsule(s) PO BID 09/12/2016 0 09/16/2016 Inactive Promethegan 25 mg rectal suppository RxNorm: 282997 1 S uppository RTL Q4H as needed 09/12/2016 03/27/2017 Inactive levothyroxine 50 mcg tablet RxNorm: 569756 TAKE 1 TABLET BY GIDEON TH EVERY DAY 08/09/2016 02/03/2017 Inactive Generic For:*SYNTHRO ID 0.05MG TAB 08/09/2016 8:59:33 AM famotidine 40 mg tablet RxNorm: 303929 1 Tablet(s) PO BID 07/22/2016 10/20/2016 Inactive clotrimazole-betamethasone 1 %-0.05 % topical cream RxNorm: 025700 1 Application TOP BID to rash prn--was supposed to be cream not lotion 06/23/2016 Inactive famotidine 40 mg tablet RxNorm: 359080 1 Tablet(s) PO BID 06/23/2016 07/21/2016 Inactive Toprol XL 25 mg tablet,extended release RxNorm: 204059 1 Tablet (s) PO QD 06/14/2016 12/15/2016 Inactive Generic For:TOPROL X L 25MG TAB SA 12/21/2015 9:08:41 AM dicyclomine 10 mg capsule RxNorm: 441488 1 Capsule(s) P O TID as needed for abdominal pain 04/26/2016 06/07/2017 Inactive dicyclomine 10 mg capsule RxNorm: 957309 1 Capsule(s) P O TID as needed for abdominal pain 04/26/2016 06/08/2017 Inactive famotidine 40 mg tablet RxNorm: 196597 1 Tablet(s) PO QD 04/26/2016 0 06/22/2016 Inactive Protonix 40 mg tablet,delayed release RxNorm: 214758 1 Tablet(s ) PO QD 02/05/2016 03/27/2017 Inactive levothyroxine 50 mcg tablet RxNorm: 345560 1 Tablet(s) PO QD 201507/22/2016 Inactive Toprol XL 25 mg tablet,extended release RxNorm: 061550 TAKE ONE TABLET BY MOUTH EVERY DAY 12/21/2015 06/14/2016 Inactive Generic For:TOPR OL XL 25MG TAB SA 12/21/2015 9:08:41 AM Protonix 40 mg tablet,delayed release RxNorm: 759712 1 Tablet(s ) PO QD 07/27/2015 01/22/2016 Inactive levothyroxine 50 mcg tablet RxNorm: 583076 1 Tablet(s) PO QD 201501/17/2016 Inactive Phenergan 25 mg rectal suppository RxNorm: 084848 1 Sup pository RTL Q4H as needed for nausea and vomiting 07/20/2015 12/08/2015 Inactive Toprol XL 25 mg tablet,extended release RxNorm: 905008 1 Tablet (s) PO QD 06/15/2015 12/11/2015 Inactive clotrimazole-betamethasone 1 %-0.05 % topical cream RxNorm: 284530 1 Application TOP BID to rash prn--was supposed to be cream not lotion 05/20/2015 Inactive Protonix 40 mg tablet,delayed release RxNorm: 992395 1 Tablet(s) 1 Tablet(s) PO QD 04/23/2015 07/27/2015 Inactive levothyroxine 50 mcg tablet RxNorm: 066959 1 Tablet(s) PO QD 201407/21/2015 Inactive Lidoderm 5 % (700 mg/patch) adhesive patch RxNorm: 5344869 1-2 Unit Dose TOP QD on for 12hrs then off for 12hrs 04/23/2015 03/27/2016 Inactive Miralax 17 gram oral powder packet RxNorm: 334212 1/2 U nit Dose PO every other day 03/24/2015 03/29/2015 Inactive levothyroxine 50 mcg tablet RxNorm: 066625 1 Tablet(s) PO QD 201404/19/2015 Inactive dicyclomine 10 mg capsule RxNorm: 204584 1 Capsule(s) P O TID as needed for abdominal pain 02/19/2015 04/25/2016 Inactive dicyclomine 10 mg capsule RxNorm: 445504 1 Capsule(s) P O TID as needed for abdominal pain 12/25/2014 02/18/2015 Inactive Protonix 40 mg tablet,delayed release RxNorm: 162753 1 Tablet(s ) PO BID 12/25/2014 03/04/2015 Inactive levothyroxine 50 mcg tablet RxNorm: 611662 1 Tablet(s) PO QD 201402/18/2015 Inactive Flonase 50 mcg/actuation nasal spray,suspension RxNorm: 8963 23 2 [place] NASAL QHS 12/25/2014 10/03/2018 Inactive [SAVINGS FOR NON -COVERED DRUGS -- BIN:[id number], PCN: ASPROD1, Group: XXXXX, ID# [id number], Questions: . THIS IS NOT INSURANCE.] Toprol XL 25 mg tablet,extended release RxNorm: 696058 1 Tablet (s) PO QD 12/01/2014 05/29/2015 Inactive dicyclomine 10 mg capsule RxNorm: 862833 1 Capsule(s) P O TID as needed for abdominal pain 12/01/2014 12/24/2014 Inactive levothyroxine 75 mcg tablet RxNorm: 199836 1 Tablet(s) PO QD 201412/24/2014 Inactive [AttnRPh: Saving apply/adjud icate RxGRP:SG20 RxBIN:[id number] RxPCN: ID#:[id number]] Protonix 40 mg tablet,delayed release RxNorm: 177337 1 Tablet(s) BID 1 Tablet(s) PO QD 11/04/2014 12/24/2014 Inactive dicyclomine 10 mg capsule RxNorm: 952690 1 Capsule(s) P O TID as needed for abdominal pain 11/04/2014 11/30/2014 Inactive Protonix 40 mg tablet,delayed release RxNorm: 751413 Ta blet(s) 1 Tablet(s) PO QD 10/14/2014 11/03/2014 Inactive Flonase 50 mcg/actuation nasal spray,suspension RxNorm: 8963 23 2 [place] NASAL QHS 09/01/2014 12/24/2014 Inactive [SAVINGS FOR NON -COVERED DRUGS -- BIN:[id number], PCN: ASPROD1, Group: XXXXX, ID# [id number], Questions: . THIS IS NOT INSURANCE.] Toprol XL 25 mg tablet,extended release RxNorm: 716886 Tablet(s) 1/2 Tablet(s) PO QD 08/28/2014 11/25/2014 Inactive [SAVINGS FOR UNI NSURED PATIENTS -- BIN:292014, PCN: ASPROD1, Group: [id number], ID# [id number], Process claim through [employer], for questions: . THIS IS NOT INSURANCE.] estradiol 0.01% (0.1 mg/gram) vaginal cream RxNorm: 965183 1 Gram(s) VAG Insert vaginally at bedtime, Monday, Monday and Monday06/26/2014 5 Inactive Toprol XL 25 mg tablet,extended release RxNorm: 045128 1/2 Tabl et(s) PO QD 06/06/2014 08/27/2014 Inactive [SAVINGS FOR UNINSUR ED PATIENTS -- BIN:875804, PCN: ASPROD1, Group: [id number], ID# [id number], Process claim through [employer], for questions: . THIS IS NOT INSURANCE.] estradiol 0.5 mg tablet RxNorm: 114701 1 Tablet(s) VAG Place one tablet in the vagina at bedtime three times a week 06/02/2014 06/25/2014 Inactive Estring 2 mg vaginal RxNorm: 422148 VAG Insert vaginall y and remove after 90 days 05/27/2014 06/01/2014 Inactive Toprol XL 25 mg tablet,extended release RxNorm: 483039 1/2 Tabl et(s) PO QD 04/15/2014 04/14/2014 Inactive Protonix 40 mg tablet,delayed release RxNorm: 696642 1 Tablet(s ) PO QD 04/15/2014 10/14/2014 Inactive estradiol 0.5 mg tablet RxNorm: 171054 1 Tablet(s) VAG Place one tablet in the vagina at bedtime twice a week 04/15/2014 06/01/2014 Inactive Toprol XL 25 mg tablet,extended release RxNorm: 116369 1/2 Tabl et(s) PO QD 04/15/2014 06/05/2014 Inactive [SAVINGS FOR UNINSUR ED PATIENTS -- BIN:793503, PCN: ASPROD1, Group: [id number], ID# [id number], Process claim through [employer], for questions: . THIS IS NOT INSURANCE.] levothyroxine 75 mcg tablet RxNorm: 155884 1 Tablet(s) PO QD 201304/07/2014 Inactive [AttnRPh: Saving apply/adjud icate RxGRP:SG20 RxBIN:[id number] RxPCN:HT ID#:[id number]] Flonase 50 mcg/actuation nasal spray,suspension RxNorm: 8963 23 1 [place] NASAL BID 04/08/2014 08/31/2014 Inactive levothyroxine 75 mcg tablet RxNorm: 717036 1 Tablet(s) PO QD 201310/04/2014 Inactive [AttnRPh: Saving apply/adjud icate RxGRP:SG20 RxBIN:[id number] RxPCN:HT ID#:[id number]] estradiol 0.5 mg tablet RxNorm: 972880 Tablet(s) PO Debra ce one tablet in the vagina at bedtime one time weekly 04/08/2014 04/07/2014 Inactive levothyroxine 75 mcg tablet RxNorm: 350358 1 Tablet(s) PO QD 201304/07/2014 Inactive [AttnRPh: Saving apply/adjud icate RxGRP:SG20 RxBIN:[id number] RxPCN:HT ID#:[id number]] Skelaxin 800 mg tablet RxNorm: 084168 1 Tablet(s) PO TI D as needed for muscle spasm 03/05/2014 11/03/2014 Inactive alprazolam 0.25 mg tablet RxNorm: 008199 1 Tablet(s) PO Q8H as needed for anxiety 02/27/2014 08/05/2018 Inactive [AttnRPh: Saving apply/adjudicate RxGRP:SG20 RxBIN:[id number] RxPCN:HT ID#:[id number]] Synthroid 75 mcg tablet RxNorm: 883008 1 Tablet(s) PO QD 11/29/2013 0 11/03/2014 Inactive levothyroxine 75 mcg tablet RxNorm: 503754 1 Tablet(s) PO QD -N eed labs 11/27/2013 03/19/2014 Inactive [AttnRPh: Saving jessica ly/adjudicate RxGRP:SG20 RxBIN:[id number] RxPCN:HT ID#:[id number]] Protonix 40 mg tablet,delayed release RxNorm: 308808 1 Tablet(s ) PO QD 10/07/2013 04/04/2014 Inactive Synthroid 75 mcg tablet RxNorm: 039287 1 Tablet(s) PO QD 09/02/2013 0 11/28/2013 Inactive Zithromax 500 mg tablet RxNorm: 832358 1 Tablet(s) PO QD 07/29/2013 0 08/04/2013 Inactive prednisone 20 mg tablet RxNorm: 463593 1 Tablet(s) PO QD 07/29/2013 0 08/02/2013 Inactive Synthroid 75 mcg tablet RxNorm: 401318 1 Tablet(s) PO Q D Patient wants it put on hold 05/14/2013 09/02/2013 Inactive Synthroid 75 mcg tablet RxNorm: 137024 1 Tablet(s) PO QD 05/01/2013 1 07/14/2012 Inactive Flagyl 500 mg tablet RxNorm: 488098 1 Tablet(s) PO BID 03/20/2013 Inactive Cipro 500 mg tablet RxNorm: 339180 1 Tablet(s) PO QD 03/20/201304/02 Inactive levothyroxine 75 mcg tablet RxNorm: 524006 1 Tablet(s) PO QD 201205/03/2013 Inactive Septra DS 800 mg-160 mg tablet RxNorm: 834728 1 Tablet(s) PO BI D antibiotic 11/05/2012 11/09/2012 Inactive Bystolic 5 mg tablet RxNorm: 960537 1 Tablet(s) PO QD 10/10/20120 08/2018 Inactive Bystolic 5 mg tablet RxNorm: 271172 1 Tablet(s) PO QD 10/10/20120 02/2013 Inactive Protonix 40 mg tablet,delayed release RxNorm: 150520 1 Tablet(s ) PO QD 09/24/2012 09/18/2013 Inactive Synthroid 75 mcg tablet RxNorm: 311544 1 Tablet(s) PO QD 08/01/2012 0 09/23/2012 Inactive Synthroid 75 mcg tablet RxNorm: 189087 1 Tablet(s) PO QD Brand name only 07/03/2012 07/31/2012 Inactive Skelaxin 800 mg tablet RxNorm: 325194 1 Tablet(s) PO TID prn spasm 05/02/2012 03/04/2014 Inactive Zithromax Z-Leonel 250 mg tablet RxNorm: 478903 Tablet(s) PO As Di rected 04/12/2012 05/01/2012 Inactive levothyroxine 75 mcg tablet RxNorm: 948205 1 Tablet(s) PO QD 201108/05/2018 Inactive levothyroxine 75 mcg tablet RxNorm: 668409 1 Tablet(s) PO QD 201107/01/2012 Inactive Ultram 50 mg tablet RxNorm: 020589 1-2 Tablet(s) PO TID as need ed for migraine 04/03/2012 11/03/2014 Inactive Vimovo 500 mg-20 mg tablets,immediate & delayed release RxNo rm: 376954 1 Tablet(s) PO BID for pain 03/28/2012 07/25/2012 Inactive levothyroxine 75 mcg tablet RxNorm: 307882 1 Tablet(s) PO QD 201104/02/2012 Inactive levothyroxine 50 mcg tablet RxNorm: 616077 1 Tablet(s) PO QD 201109/23/2012 Inactive levothyroxine 50 mcg tablet RxNorm: 195541 1 Tablet(s) PO QD 201101/31/2012 Inactive Septra DS 800 mg-160 mg Tab RxNorm: 841535 1 Tablet(s) PO BID 11/2111/26/2011 Inactive mupirocin 2 % Ointment RxNorm: 453832 1 Application TOP TID 012 11/28/2011 Inactive Protonix 40 mg tablet,delayed release RxNorm: 120838 1 Tablet(s ) PO QD 09/13/2011 09/24/2012 Inactive hydrocodone-acetaminophen 5 mg-500 mg Tab RxNorm: 802976 1 Tablet(s) PO Q4-6H as needed for pain 07/13/2011 11/21/2011 Inactive Skelaxin 800 mg tablet RxNorm: 554328 1 Tablet(s) PO TID prn spasm 06/30/2011 11/21/2011 Inactive Skelaxin 800 mg Tab RxNorm: 169521 1 Tablet(s) PO TID prn spasm No Stop Date Active potassium chloride ER 10 mEq Cap RxNorm: 3218141 2 Capsule(s) PO QD 12/30/2010 01/30/2011 Inactive potassium chloride ER 10 mEq Cap RxNorm: 6827062 1 Capsule(s) PO QD 12/29/2010 12/29/2010 Inactive Take 2 tablets by mouth on M , Monday, Monday and 1 tablet by mouth on Monday, , Monday and Monday Premarin 0.9 mg Tab RxNorm: 857454 1 Tablet(s) PO QD 12/09/201001/07 Inactive potassium chloride ER 10 mEq Cap RxNorm: 8441300 1 Capsule(s) PO QD 12/07/2010 No Stop Date Active Take 2 tablets by mouth on M , Monday, Monday and 1 tablet by mouth on Monday, , Monday and Monday promethazine 12.5 mg Rectal Suppository RxNorm: 712306 1 Applic ation RTL Q6-8H 12/07/2010 12/16/2010 Inactive prn nausea and vomit ing potassium chloride ER 10 mEq Cap RxNorm: 4971175 1 Capsule(s) PO QD 12/03/2010 No Stop Date Active MWF take 2 tablets daily. T nighat one tablet daily on other days. Protonix 40 mg Tab RxNorm: 440675 1 Tablet(s) PO QD 09/27/20102011 Inactive cefdinir 300 mg Cap RxNorm: 296076 2 Capsule(s) PO QD 08/05/201007/2010 Inactive cefdinir 300 mg Cap RxNorm: 523736 2 Capsule(s) PO QD 08/05/201008/03 Inactive Premarin 1.25 mg Tab RxNorm: 537193 1 Tablet(s) PO QD 06/14/201012/2010 Inactive lisinopril-hydrochlorothiazide 10 mg-12.5 mg Tab RxNorm: 096578 1 Tablet(s) PO 06/07/2010 11/04/2010 Inactive alprazolam 0.25 mg Tab RxNorm: 983135 1 Tablet(s) PO TI D written script provided to patient. 05/24/2010 06/22/2010 Inactive Treximet 85 mg-500 mg Tab RxNorm: 497772 1 Tablet(s) PO PRN 010 09/23/2012 Inactive lisinopril-hydrochlorothiazide 20 mg-12.5 mg Tab RxNorm: 197 886 1 Tablet(s) PO QD 05/12/2010 11/04/2010 Inactive alprazolam 0.25 mg Tab RxNorm: 161472 1 Tablet(s) PO TI D written script provided to patient. 04/19/2010 05/23/2010 Inactive Macrobid 100 mg Cap RxNorm: 2898575 1 Capsule(s) PO BID 04/08/2010 Inactive Premarin 1.25 mg Tab RxNorm: 666215 1 Tablet(s) PO QD 03/22/201002/2011 Inactive Amitriptyline 10 mg Tab RxNorm: 286883 1 Tablet(s) PO QD 03/22/2010 0 06/19/2010 Inactive Protonix 40 mg Tab RxNorm: 771740 1 Tablet(s) PO QD 03/22/20102010 Inactive alprazolam 0.25 mg Tab RxNorm: 361346 1 Tablet(s) PO TID 03/10/2010 1 06/08/2009 Inactive Macrobid 100 mg Cap RxNorm: 9447314 1 Capsule(s) PO QD 03/09/2010 Inactive Bystolic 5 mg Tab RxNorm: 498219 1 Tablet(s) PO QD Fi ll at 30 if insurance will not accept 03/01/2010 11/04/2010 Inactive Protonix 40 mg Tab RxNorm: 860996 1 Tablet(s) PO QD 11/23/20092009 Inactive Premarin 1.25 mg Tab RxNorm: 532991 1 Tablet(s) PO QD 11/23/200912/03 Inactive Bentyl 10 mg Cap RxNorm: 491585 1 Capsule(s) PO QID 11/23/20092010 Inactive Elavil 10 mg Tab RxNorm: 912444 1 Tablet(s) PO QPM 11/19/2009 011 Inactive Estrace 0.01% (0.1 mg/gram) vaginal cream RxNorm: 703304 1 Application VAG weekly No Start Date Active Protonix 40 mg tablet,delayed release RxNorm: 758931 1 Tablet(s ) PO QD No Start Date Active fluticasone propionate 50 mcg/actuation nasal spray,suspensi on RxNorm: 8625120 2 [place] NASAL QD No Start Date Active Vitamin D3 2,000 unit tablet RxNorm: 557443 1 Tablet(s) PO QD No Star t Date Active BIOFREEZE Top RxNorm: Topical No Start Date Active multivitamin chewable tablet RxNorm: 1 Tablet(s) PO QD No Start Date Active Estring 2 mg vaginal RxNorm: 841995 VAG Insert vaginall y and remove after 90 days No Start Date 05/26/2014 Inactive Premarin 0.625 mg tablet RxNorm: 273868 1 Tablet(s) PO QD No Start Date 04/07/2014 Inactive Miralax 17 gram/dose oral powder RxNorm: 868898 1 capful PO QD No S tart Date 08/05/2018 Inactive diazepam 5 mg tablet RxNorm: 715718 2 Tablet(s) PO before MRI No St art Date 10/03/2018 Inactive Protonix 40 mg tablet,delayed release RxNorm: 174256 1 Tablet(s ) PO QD No Start Date 07/26/2015 Inactive B12 sublingual RxNorm: 14963 sublingual No Start Date 03/27/2017 Inact adrian Treximet 85 mg-500 mg Tab RxNorm: 343768 Tablet(s) PO PRN No Start Date 05/11/2010 Inactive Gemma 180 mg Tab RxNorm: 258579 1 Tablet(s) PO QD No Start Date Inactive Cranberry Concentrate capsule RxNorm: 1 Capsule(s) PO QD No St art Date 07/02/2019 Inactive Gemma Allergy 180 mg tablet RxNorm: 599766 1 Tablet(s) PO QD No S tart Date 08/31/2014 Inactive estradiol 0.01% (0.1 mg/gram) vaginal cream RxNorm: 691332 1 Gram(s) VAG Insert vaginally at bedtime, Monday, Monday and Monday No Start Date 5 Inactive Tylenol Ex Str Arthritis Pain 500 mg tablet RxNorm: 070437 2 Ta blet(s) PO TID No Start Date 08/05/2018 Inactive Toprol XL 25 mg tablet,extended release RxNorm: 178749 1 Tablet (s) PO QD No Start Date 11/30/2014 Inactive Ultram 50 mg tablet RxNorm: 319469 1-2 Tablet(s) PO TID as need ed for migraine No Start Date 04/02/2012 Inactive Premarin 0.9 mg Tab RxNorm: 140159 1 Tablet(s) PO QD No Start Date Inactive Xyzal 5 mg tablet RxNorm: 844227 1 Tablet(s) PO QD No Start Date 06/06 Inactive Bystolic 5 mg Tab RxNorm: 318527 1/2 Tablet(s) PO QD No Start Date Inactive Ondansetron HCl 4 mg Tab RxNorm: 903790 1 Tablet(s) PO TID or every 8hrs as needed for nausea No Start Date 11/21/2011 Inactive Protonix 40 mg tablet,delayed release RxNorm: 869542 1 Tablet(s ) PO BID No Start Date 12/24/2014 Inactive potassium chloride ER 10 mEq Cap RxNorm: 4393286 1 Capsule(s) PO QD No Start Date 12/02/2010 Inactive Miralax 17 gram/dose oral powder RxNorm: 027782 1 capful PO QD No S tart Date 03/29/2015 Inactive levothyroxine 75 mcg tablet RxNorm: 614191 1 Tablet(s) PO QD si x days a week No Start Date 12/24/2014 Inactive Cenestin 1.25 mg Tab RxNorm: 627606 1 Tablet(s) PO QD No Start Date 0 01/03/2010 Inactive calcium-vitamin D3 500 mg oral wafer RxNorm: 1 Tablet(s) PO QD No Start Date 12/08/2015 Inactive Vimovo 500 mg-20 mg tablet,immediate & delayed release RxNor m: 676731 1 Tablet(s) PO QD No Start Date 11/03/2014 Inactive alprazolam 0.25 mg tablet RxNorm: 079354 1 Tablet(s) PO Q8H as needed for anxiety/stress No Start Date 12/24/2014 Inactive levothyroxine 50 mcg tablet RxNorm: 273451 1 Tablet(s) PO QD No Sta rt Date 06/23/2019 Inactive betamethasone dipropionate 0.05 % topical cream RxNorm: 2389 20 1 Application TOP QHS No Start Date 03/27/2017 Inactive meloxicam 15 mg tablet RxNorm: 769062 1 Tablet(s) PO QD as needed N o Start Date 04/11/2019 Inactive cetirizine 10 mg capsule RxNorm: 4470184 1 Capsule(s) PO QD No Star t Date 09/10/2017 Inactive Skelaxin 800 mg Tab RxNorm: 941091 Tablet(s) PO PRN No Start Date Inactive Zithromax Z-Leonel 250 mg tablet RxNorm: 363507 Tablet(s) PO As Di rected No Start Date 04/11/2012 Inactive Zithromax Z-Leonel 250 mg Tab RxNorm: 195464 Tablet(s) PO as direc sheridan No Start Date 11/15/2010 Inactive Gemma 180 mg tablet RxNorm: 918473 1 Tablet(s) PO QD No Start Date 12/24/2014 Inactive Anusol-HC 2.5 % Rectal Cream RxNorm: 019931 Application RTL BID for 1wk No Start Date 12/19/2011 Inactive metoprolol succinate ER 25 mg 24 hr Tab RxNorm: 521385 1/2 Tabl et(s) PO QD No Start Date 10/03/2012 Inactive clotrimazole-betamethasone 1 %-0.05 % Lotion RxNorm: 644236 Application TOP BID to rash No Start Date 05/15/2011 Inactive ranitidine 150 mg tablet RxNorm: 467450 1 Tablet(s) PO QD No Start Date 12/06/2018 Inactive ranitidine 150 mg tablet RxNorm: 351792 1 Tablet(s) PO BID No Start Date 11/10/2016 Inactive promethazine 12.5 mg Rectal Suppository RxNorm: 247965 1 Applic ation RTL Q6-8H No Start Date 12/06/2010 Inactive Maxalt-HYDRAULIC DREDGE OPERATOR 10 mg disintegrating tablet RxNorm: 073266 1 Tablet(s) PO at headache onset--may repeat in 2hrs if needed No Start Date 12/24/2014 Inactive Benadryl 25 mg capsule RxNorm: 7129953 Capsule(s) PO as needed No S tart Date 12/24/2014 Inactive Cranberry Concentrate 500 mg capsule RxNorm: 138006 1 Capsule(s ) PO QD No Start Date 09/10/2017 Inactive Mobic 15 mg tablet RxNorm: 880313 1 Tablet(s) PO on opposite da ys of Aleve No Start Date 11/20/2018 Inactive Bystolic 5 mg tablet RxNorm: 000759 1 Tablet(s) PO QD No Start Date 0 10/09/2012 Inactive Premarin 1.25 mg Tab RxNorm: 375325 1 Tablet(s) PO QD No Start Date 1 Inactive clotrimazole-betamethasone 1 %-0.05 % topical cream RxNorm: 953269 Application TOP BID to rash prn--was supposed to be cream not lotion No Start Date 12/19/2011 Inactive azithromycin 250 mg Tab RxNorm: 448957 2 Tablet(s) PO Q D take 2 tablets (500 mg) by oral route once daily for 1 day then 1 tablet (250 mg) by oral route once daily for 4 days No Start Date 06/06/2010 Inactive hydrocodone-acetaminophen 5 mg-500 mg Tab RxNorm: 286363 1 Tablet(s) PO Q4-6H as needed for pain No Start Date 07/12/2011 Inactive Levbid 0.375 mg 12 hr Tab RxNorm: 1280118 1 Tablet(s) PO BID as needed for stomach cramping No Start Date 11/21/2011 Inactive Phenergan 25 mg rectal suppository RxNorm: 556889 1 Sup pository RTL Q4H as needed for nausea and vomiting No Start Date 07/19/2015 Inactive baclofen 10 mg tablet RxNorm: 390326 1 Tablet(s) PO QHS No Start Da te 11/03/2014 Inactive loratadine 10 mg tablet RxNorm: 052771 1 Tablet(s) PO QD No Start D ate 10/03/2018 Inactive famotidine 40 mg tablet RxNorm: 239821 1 Tablet(s) PO BID No Start Date 06/22/2016 Inactive Zithromax Z-Leonel 250 mg Tab RxNorm: 149830 Tablet(s) PO as direc sheridan No Start Date 11/15/2010 Inactive Singulair 10 mg tablet RxNorm: [id number] 1 Tablet(s) PO QHS No Start D ate 07/10/2017 Inactive Premarin 0.625 mg/g Vaginal Cream RxNorm: 428292 1 Gram (s) VAG QHS 2-3 times weekly No Start Date 01/05/2011 Inactive Alprazolam 0.25 mg Tab RxNorm: 101036 1 Tablet(s) PO TID No Start D ate 03/09/2010 Inactive Claritin 10 mg tablet RxNorm: 498734 1 Tablet(s) PO QD No Start Date [...] Result Date S ervice Location GFR CALC 8354596 GFR AA >60 ML/MIN 01/14/2011 Unknown GFR CALC 1898099 GFR NON-AA >60 ML/MIN 01/14/2011 Unknown COMPREHENSIVE METABOLIC 96434 AST 15 U/L 2010 Unknown COMPREHENSIVE METABOLIC 74054 ALT 17 IU/L 2010 Unknown COMPREHENSIVE METABOLIC 68545 BUN 12 MG/DL 2010 Unknown COMPREHENSIVE METABOLIC 88816 ALBUMIN 4.0 GM/DL 2010 Unknown COMPREHENSIVE METABOLIC 99687 CHLORIDE 101 MMOL/L 01/14 Unknown COMPREHENSIVE METABOLIC 08116 BILI TOT 0.3 MG/DL 2010 Unknown COMPREHENSIVE METABOLIC 54849 ALK PHOS 53 U/L 2010 Unknown COMPREHENSIVE METABOLIC 97034 SODIUM 136 MMOL/L 01/14 Unknown COMPREHENSIVE METABOLIC 75401 CREATININE 0.60 MG/DL 01/03 Unknown COMPREHENSIVE METABOLIC 88245 CALCIUM 9.3 MG/DL 2010 Unknown COMPREHENSIVE METABOLIC 80975 POTASSIUM 4.1 MMOL/L 01/14 Unknown COMPREHENSIVE METABOLIC 91045 PROT TOT 7.0 GM/DL 2010 Unknown COMPREHENSIVE METABOLIC 65071 Glucose 92 MG/DL 2010 Unknown COMPREHENSIVE METABOLIC 75007 BICARB 27 MMOL/L 2010 Unknown COMPREHENSIVE METABOLIC 30588 ANION GAP 8 MEQ/L 2010 Unknown ERYTHROCYTE SEDIMENTATION RATE 91105 ESR 39 MM/HR 01/05/2011 Unknown COMPREHENSIVE METABOLIC 25909 AST 16 U/L 2010 Unknown COMPREHENSIVE METABOLIC 64085 ALT 19 U/L 2010 Unknown COMPREHENSIVE METABOLIC 11121 BUN 15 MG/DL 2010 Unknown COMPREHENSIVE METABOLIC 50820 ALBUMIN 3.8 GM/DL 2010 Unknown COMPREHENSIVE METABOLIC 49033 CHLORIDE 101 MMOL/L 01/05 Unknown COMPREHENSIVE METABOLIC 97326 BILI TOT 0.3 MG/DL 2010 Unknown COMPREHENSIVE METABOLIC 58393 ALK PHOS 55 U/L 2010 Unknown COMPREHENSIVE METABOLIC 80726 SODIUM 139 MMOL/L 01/05 Unknown COMPREHENSIVE METABOLIC 53183 CREATININE 0.59 MG/DL 08/2010 Unknown COMPREHENSIVE METABOLIC 77150 CALCIUM 8.9 MG/DL 2010 Unknown COMPREHENSIVE METABOLIC 15525 POTASSIUM 3.8 MMOL/L 01/05 Unknown COMPREHENSIVE METABOLIC 31424 PROT TOT 6.7 GM/DL 2010 Unknown COMPREHENSIVE METABOLIC 03314 Glucose 121 MG/DL 2010 Unknown COMPREHENSIVE METABOLIC 50977 BICARB 28 MMOL/L 2010 Unknown COMPREHENSIVE METABOLIC 19219 ANION GAP 10 MMOL/L 2010 Unknown GFR CALC 1490666 GFR AA >60 ML/MIN 01/05/2011 Unknown GFR CALC 5536408 GFR NON-AA >60 ML/MIN 01/05/2011 Unknown COMPLETE BLOOD COUNT 62371 WBC 8.7 10e9/L 01/06/20 11 Unknown COMPLETE BLOOD COUNT 53050 RBC 4.78 10e12/L 2010 Unknown COMPLETE BLOOD COUNT 92172 HGB 13.3 g/dL 1 Unknown COMPLETE BLOOD COUNT 46276 HCT DET 40.6 % 1 Unknown COMPLETE BLOOD COUNT 34066 MCV 84.9 fL 1 Unknown COMPLETE BLOOD COUNT 67819 MCH 27.8 pg 1 Unknown COMPLETE BLOOD COUNT 92808 MCHC 32.8 g/dL 1 Unknown COMPLETE BLOOD COUNT 60741 PLT 273 10e9/L 01/06/20 11 Unknown COMPLETE BLOOD COUNT 15776 MPV 9.8 fL 1 Unknown COMPLETE BLOOD COUNT 68117 AMANDA % 65.9 % 1 Unknown COMPLETE BLOOD COUNT 75450 LY % 24.5 % 1 Unknown COMPLETE BLOOD COUNT 20223 MON % 6.9 % 1 Unknown COMPLETE BLOOD COUNT 33233 EOS % 2.1 % 1 Unknown COMPLETE BLOOD COUNT 98962 BASO % 0.6 % 1 Unknown COMPLETE BLOOD COUNT 35409 RDW 14.7 % 1 Unknown COMPLETE BLOOD COUNT 14969 ABS AMANDA 5.73 10e9/L 011 Unknown COMPLETE BLOOD COUNT 59886 ABS LYMPH 2.13 10e9/L 011 Unknown COMPLETE BLOOD COUNT 00280 ABS MONO 0.60 10e9/L 011 Unknown COMPLETE BLOOD COUNT 36851 ABS EOS 0.18 10e9/L 011 Unknown COMPLETE BLOOD COUNT 77989 ABS BASO 0.05 10e9/L 011 Unknown COMPLETE BLOOD COUNT 80822 RDW-SD 44.7 fL 1 Unknown NO UA [id number] NO UA CANCELED 07/08/2010 Unknown Procedures Procedure Codes Date URINALYSIS NONAUTO W/O SCOPE CPT-4: 27840 04/12/2019 URINE CULTURE/ COLONY COUNT CPT-4: 36886 04/12/2019 URINE CULTURE/ COLONY COUNT CPT-4: 46167 01/14/2019 URINALYSIS NONAUTO W/O SCOPE CPT-4: 13223 01/14/2019 INITIAL PREVENTIVE EXAM CPT-4: G0402 11/21/2018 URINALYSIS NONAUTO W/O SCOPE CPT-4: 25602 11/01/2018 URINE CULTURE/ COLONY COUNT CPT-4: 57551 11/01/2018 URINE CULTURE/ COLONY COUNT CPT-4: 88584 06/13/2018 URINALYSIS NONAUTO W/O SCOPE CPT-4: 57813 05/31/2018 URINE CULTURE/ COLONY COUNT CPT-4: 75555 05/31/2018 IIV4 VACCINE 3 YRS+ IM AND UP CPT-4: 51952 03/22/2018 IMMUNIZATION ADMIN CPT-4: 91372 03/22/2018 TDAP VACCINE 7 YRS/> IM CPT-4: 93058 12/28/2017 IMMUNIZATION ADMIN CPT-4: 12173 12/28/2017 SHINGRIX HZV VACC RECOMBINANT IM CPT-4: 09804 018 IMMUNIZATION ADMIN CPT-4: 10563 10/04/2017 IIV4 VACCINE 3 YRS+ IM AND UP CPT-4: 33928 03/28/2017 IMMUNIZATION ADMIN CPT-4: 93716 03/28/2017 INFLUENZA ASSAY W/OPTIC CPT-4: 35371 09/12/2016 FLU VACCINE 3 YRS & > IM UP 64 CPT-4: 08527 6 IMMUNIZATION ADMIN CPT-4: 57402 04/22/2016 OCCULT BLOOD FECES CPT-4: 57815 01/04/2016 THER/PROPH/DIAG INJ SC/IM CPT-4: 12094 07/20/2015 PROMETHAZINE HCL INJECTION CPT-4: J2550 07/20/2015 FLU VACCINE 3 YRS & > IM UP 64 CPT-4: 42110 5 IMMUNIZATION ADMIN CPT-4: 50803 03/09/2015 URINALYSIS NONAUTO W/O SCOPE CPT-4: 75347 07/10/2014 URINE CULTURE/ COLONY COUNT CPT-4: 39969 07/10/2014 URINE CULTURE/ COLONY COUNT CPT-4: 92739 07/14/2011 URINALYSIS NONAUTO W/O SCOPE CPT-4: 09438 07/14/2011 FLU VACCINE 3 YRS & > IM UP 64 CPT-4: 62206 2 IMMUNIZATION ADMIN CPT-4: 20642 06/28/2011 URINALYSIS NONAUTO W/O SCOPE CPT-4: 01534 03/23/2011 URINE CULTURE/ COLONY COUNT CPT-4: 19859 03/23/2011 ROUTINE VENIPUNCTURE CPT-4: 39605 01/14/2011 COMPREHEN METABOLIC PANEL CPT-4: 54341 01/14/2011 ROUTINE VENIPUNCTURE CPT-4: 27105 01/05/2011 COMPLETE CBC W/AUTO DIFF WBC CPT-4: 97467 01/05/2011 RBC SED RATE AUTOMATED CPT-4: 36918 01/05/2011 COMPREHEN METABOLIC PANEL CPT-4: 21623 01/05/2011 URINALYSIS NONAUTO W/O SCOPE CPT-4: 58654 11/16/2010 URINE CULTURE/ COLONY COUNT CPT-4: 18008 11/16/2010 DRAIN/INJECT JOINT/BURSA CPT-4: 94742 11/04/2010 TRIAMCINOLONE ACET INJ NOS CPT-4: J3301 11/04/2010 METHYLPREDNISOLONE 80 MG INJ CPT-4: J1040 11/04/2010 URINALYSIS NONAUTO W/O SCOPE CPT-4: 30478 07/05/2010 URINE CULTURE/ COLONY COUNT CPT-4: 04633 07/05/2010 URINALYSIS NONAUTO W/O SCOPE CPT-4: 46820 06/28/2010 URINE CULTURE/ COLONY COUNT CPT-4: 30865 06/28/2010 URINALYSIS NONAUTO W/O SCOPE CPT-4: 22130 06/14/2010 URINE CULTURE/ COLONY COUNT CPT-4: 23926 06/14/2010 URINE CULTURE/ COLONY COUNT CPT-4: 23380 04/19/2010 OCCULT BLOOD FECES CPT-4: 59052 04/12/2010 URINALYSIS NONAUTO W/O SCOPE CPT-4: 73751 04/08/2010 URINE CULTURE/ COLONY COUNT CPT-4: 65343 04/08/2010 ASSAY, GLUCOSE, BLOOD QUANT CPT-4: 90666 03/09/2010 URINALYSIS NONAUTO W/O SCOPE CPT-4: 20112 03/09/2010 FLU VACCINE 3 YRS & > IM UP 64 CPT-4: 03610 0 IMMUNIZATION ADMIN CPT-4: 60910 03/09/2010 URINALYSIS NONAUTO W/O SCOPE CPT-4: 51229 09/29/2009 URINALYSIS NONAUTO W/O SCOPE CPT-4: 72539 08/12/2009 Vital Signs Date Vital 07/03/2019 Blood [...] 1: 130/70 Code: 8480-6 BMI: 29.6 Code: 55203-3 Heart Rate 1: 76 bpm Height: 5'2" [...] 1: 126/62 Code: 8480-6 BMI: 29.6 Code: 74021-3 Heart Rate 1: 88 bpm Height: 5'3" Respiratory Rate: 20 bpm Temperature: 36 .8 (C) / 98.3 (F) Weight: 167 lbs 05/31/2018 Blood Pressure 1: 140/80 Code: 8480-6 Heart Rate 1: 74 bpm Respiratory Rate: 16 bpm SpO2: 97% Temperature: 36.3 (C) / 97.3 (F) We ight: 165 lbs 02/06/2018 Blood Pressure 1: 124/78 Code: 8480-6 BMI: 29.8 Code: 88731-0 Heart Rate 1: 84 bpm Height: 5'3" Respiratory Rate: 20 bpm SpO2: 97% Tempera ture: 36.6 (C) / 97.8 (F) Weight: 168 lbs 12/18/2017 Blood Pressure 1: 116/78 Code: 8480-6 BMI: 29.6 Code: 17923-8 Heart Rate 1: 88 bpm Height: 5'3" Respiratory Rate: 20 bpm Temperature: 36 .6 (C) / 97.9 (F) Weight: 167 lbs 12/11/2017 Blood Pressure 1: 122/76 Code: 8480-6 He art Rate 1: 78 bpm 09/11/2017 Blood Pressure 1: 126/82 Code: 8480-6 BMI: 29.1 Code: 86393-7 Heart Rate 1: 68 bpm Height: 5'3" Respiratory Rate: 20 bpm SpO2: 96% Tempera ture: 36.6 (C) / 97.9 (F) Weight: 164 lbs 03/28/2017 Blood Pressure 1: 114/64 Code: 8480-6 BMI: 27.8 Code: 93564-7 Heart Rate 1: 76 bpm Height: 5'3" Respiratory Rate: 20 bpm SpO2: 98% Tempera ture: 36.4 (C) / 97.6 (F) Weight: 157 lbs 09/12/2016 Blood Pressure 1: 126/70 Code: 8480-6 BMI: 29.9 Code: 39833-0 Heart Rate 1: 92 bpm Height: 5'3" Respiratory Rate: 20 bpm SpO2: 97% Tempera ture: 37.0 (C) / 98.6 (F) Weight: 168 lbs 9 oz 07/28/2016 Blood Pressure 1: 128/74 Code: 8480-6 Heart Rate 1: 92 bpm Respiratory Rate: 24 bpm SpO2: 96% Temperature: 36.4 (C) / 97.6 (F) We ight: 168 lbs 04/26/2016 Blood Pressure 1: 116/74 Code: 8480-6 BMI: 29.9 Code: 38589-3 Heart Rate 1: 92 bpm Height: 5'3" Respiratory Rate: 20 bpm Temperature: 36 .9 (C) / 98.4 (F) Weight: 169 lbs 12/09/2015 Blood Pressure 1: 116/72 Code: 8480-6 BMI: 31.7 Code: 76740-2 Heart Rate 1: 80 bpm Height: 5'3" Respiratory Rate: 20 bpm Temperature: 36 .6 (C) / 97.9 (F) Weight: 179 lbs 09/10/2015 Blood Pressure 1: 122/78 Code: 8480-6 BMI: 32.2 Code: 09053-1 Heart Rate 1: 88 bpm Height: 5'3" Respiratory Rate: 20 bpm Temperature: 37 .3 (C) / 99.1 (F) Weight: 182 lbs 04/23/2015 Blood Pressure 1: 126/70 Code: 8480-6 BMI: 31.2 Code: 53633-2 Heart Rate 1: 92 bpm Height: 5'3" Respiratory Rate: 20 bpm Temperature: 36 .8 (C) / 98.2 (F) Weight: 176 lbs 03/24/2015 Blood Pressure 1: 126/78 Code: 8480-6 BMI: 31.2 Code: 34305-6 Heart Rate 1: 80 bpm Height: 5'3" Respiratory Rate: 22 bpm Temperature: 36 .1 (C) / 96.9 (F) Weight: 176 lbs 03/05/2015 Blood Pressure 1: 132/80 Code: 8480-6 BMI: 31.5 Code: 12771-8 Heart Rate 1: 92 bpm Height: 5'2" Respiratory Rate: 20 bpm Temperature: 36 .4 (C) / 97.6 (F) Weight: 175 lbs 02/19/2015 Blood Pressure 1: 134/80 Code: 8480-6 BMI: 31.5 Code: 44505-5 Heart Rate 1: 88 bpm Height: 5'2" Respiratory Rate: 20 bpm Temperature: 36 .7 (C) / 98.0 (F) Weight: 175 lbs 12/25/2014 Blood Pressure 1: 122/80 Code: 8480-6 BMI: 31.0 Code: 56730-5 Heart Rate 1: 88 bpm Height: 5'2" Respiratory Rate: 20 bpm Temperature: 36 .6 (C) / 97.8 (F) Weight: 172 lbs 11/26/2014 Blood Pressure 1: 116/68 Code: 8480-6 BMI: 30.2 Code: 61045-3 Heart Rate 1: 76 bpm Height: 5'2" Respiratory Rate: 20 bpm Temperature: 36 .5 (C) / 97.7 (F) Weight: 168 lbs 11/04/2014 Blood Pressure 1: 116/64 Code: 8480-6 BMI: 30.8 Code: 76320-2 Heart Rate 1: 92 bpm Height: 5'2" Respiratory Rate: 20 bpm Temperature: 36 .7 (C) / 98.1 (F) Weight: 171 lbs 09/01/2014 Blood Pressure 1: 130/82 Code: 8480-6 BMI: 30.6 Code: 35876-0 Heart Rate 1: 92 bpm Height: 5'2" Respiratory Rate: 20 bpm Temperature: 36 .9 (C) / 98.4 (F) Weight: 170 lbs 06/02/2014 Blood Pressure 1: 126/80 Code: 8480-6 BMI: 30.2 Code: 05390-2 Heart Rate 1: 88 bpm Height: 5'2" Respiratory Rate: 20 bpm Temperature: 36 .7 (C) / 98.1 (F) Weight: 168 lbs 05/26/2014 Blood Pressure 1: 132/78 Code: 8480-6 He art Rate 1: 74 bpm 04/08/2014 Blood Pressure 1: 156/94 Code: 8480-6 BMI: 30.2 Code: 25999-7 Heart Rate 1: 96 bpm Height: 5'2" Respiratory Rate: 20 bpm Temperature: 37 .1 (C) / 98.7 (F) Weight: 168 lbs 03/05/2014 Blood Pressure 1: 144/86 Code: 8480-6 BMI: 29.9 Code: 47162-3 Heart Rate 1: 100 bpm Height: 5'2" Respiratory Rate: 20 bpm Temperature: 36 .7 (C) / 98.1 (F) Weight: 166 lbs 07/29/2013 Blood Pressure 1: 124/80 Code: 8480-6 Heart Rate 1: 92 bpm Respiratory Rate: 20 bpm Temperature: 36.2 (C) / 97.2 (F) Weight: 167 lbs 03/20/2013 Blood Pressure 1: 116/84 Code: 8480-6 BMI: 30.8 Code: 67702-0 Heart Rate 1: 96 bpm Height: 5'3" Respiratory Rate: 20 bpm Temperature: 36 .6 (C) / 97.8 (F) Weight: 174 lbs 02/12/2013 Blood Pressure 1: 122/80 Code: 8480-6 BMI: 30.5 Code: 33387-9 Heart Rate 1: 112 bpm Height: 5'3" Respiratory Rate: 20 bpm Temperature: 36 .9 (C) / 98.4 (F) Weight: 172 lbs 11/05/2012 BMI: 31.2 Code: 79299-7 Height: 5'3" Weight: 176 lbs 10/04/2012 Heart Rate 1: 84 bpm Height: 5'3" Respiratory Rate: 20 bpm Temperature: 36.8 (C) / 98.3 (F) Weight: 09/24/2012 Blood Pressure 1: 122/88 Code: 8480-6 BMI: 30.8 Code: 43253-1 Heart Rate 1: 80 bpm Height: 5'3" Respiratory Rate: 20 bpm Temperature: 36 .8 (C) / 98.2 (F) Weight: 174 lbs 05/10/2012 Blood Pressure 1: 124/68 Code: 8480-6 BMI: 30.1 Code: 31136-1 Heart Rate 1: 64 bpm Height: 5'3" Temperature: 36.6 (C) / 97.8 (F) Weight: 170 lbs 03/07/2012 Blood Pressure 1: 132/78 Code: 8480-6 BMI: 29.2 Code: 57938-7 Heart Rate 1: 92 bpm Height: 5'3" Respiratory Rate: 20 bpm Temperature: 36 .7 (C) / 98.1 (F) Weight: 165 lbs 02/01/2012 Blood Pressure 1: 116/78 Code: 8480-6 BMI: 29.1 Code: 58703-4 Heart Rate 1: 84 bpm Height: 5'3" Respiratory Rate: 20 bpm Temperature: 36 .8 (C) / 98.2 (F) Weight: 164 lbs 12/20/2011 Blood Pressure 1: 128/80 Code: 8480-6 BMI: 29.1 Code: 93732-0 Heart Rate 1: 88 bpm Height: 5'3" Respiratory Rate: 20 bpm Temperature: 36 .4 (C) / 97.6 (F) Weight: 164 lbs 11/22/2011 Blood Pressure 1: 104/60 Code: 8480-6 BMI: 28.5 Code: 41935-9 Heart Rate 1: 78 bpm Height: 5'3" Temperature: 36.6 (C) / 97.9 (F) Weight: 161 lbs 07/11/2011 Blood Pressure 1: 118/72 Code: 8480-6 BMI: 30.6 Code: 20427-3 Heart Rate 1: 92 bpm Height: 5'3" Respiratory Rate: 20 bpm Temperature: 36 .8 (C) / 98.2 (F) Weight: 173 lbs 07/06/2011 Blood Pressure 1: 126/80 Code: 8480-6 BMI: 31.0 Code: 05589-4 Heart Rate 1: 88 bpm Height: 5'3" Respiratory Rate: 20 bpm Temperature: 36 .7 (C) / 98.1 (F) Weight: 175 lbs 05/26/2011 Blood Pressure 1: 100/78 Code: 8480-6 BMI: 31.0 Code: 47767-8 Heart Rate 1: 74 bpm Height: 5'3" Temperature: 36.4 (C) / 97.6 (F) Weight: 175 lbs 05/16/2011 Blood Pressure 1: 116/80 Code: 8480-6 BMI: 31.0 Code: 74048-1 Heart Rate 1: 88 bpm Height: 5'3" Respiratory Rate: 20 bpm Temperature: 36 .8 (C) / 98.2 (F) Weight: 175 lbs 05/05/2011 Blood Pressure 1: 126/80 Code: 8480-6 BMI: 30.6 Code: 82976-2 Heart Rate 1: 96 bpm Height: 5'3" Respiratory Rate: 20 bpm Temperature: 36 .4 (C) / 97.6 (F) Weight: 173 lbs 04/05/2011 Blood Pressure 1: 144/90 Code: 8480-6 BMI: 30.1 Code: 84633-0 Heart Rate 1: 92 bpm Height: 5'3" Respiratory Rate: 20 bpm Temperature: 36 .6 (C) / 97.8 (F) Weight: 170 lbs 03/02/2011 Blood Pressure 1: 136/94 Code: 8480-6 Heart Rate 1: 92 bpm Temperature: 36.6 (C) / 97.8 (F) Weight: 171 lbs 01/05/2011 Blood Pressure 1: 132/86 Code: 8480-6 BMI: 30.6 Code: 00402-1 Heart Rate 1: 98 bpm Height: 5'3" [...] 1: 122/68 Code: 8480-6 BMI: 29.8 Code: 86383-9 Height: 5'3" Temperature: 36.3 (C) / 97.4 [...] 1: 142/90 Code: 8480-6 BMI: 30.5 Code: 45638-5 Heart Rate 1: 96 bpm Height: 5'3" [...] Rendon would like to proceed with heart seed analysis laboratory assistant draw 01/14/2011 shortness of breath 01/05/2011 urinary [...] Diagnosis: Hilar lymphadenopathy[ICD10: R59.0] Yaima JOHNSON DO [facility] CPT-4: 70265 07/03/2019 ([id number]) OFFICE/OUTPATIENT VISIT EST Diagnosis: Low back pain[ICD10: M54.5] Jane SAMUELS S. Jaqui [facility] CPT-4: 44271 04/12/2019 ([id number]) OFFICE/OUTPATIENT VISIT EST Diagnosis: Pain in thoracic spine[ICD10: M54.6] Diagnosis: Muscle spasm of back[ICD10: M62.830] Yaima JOHNSON DO [facility] CPT-4: 42134 01/16/2019 ([id number]) NURSE/OUTPATIENT VISIT EST Diagnosis: Low back pain[ICD10: M54.5] Diagnosis: Hematuria, unspecified[ICD10: R31.9] Yaima [facility]OHNSON [facility] CPT-4: 63255 01/14/2019 ([id number]) OFFICE/OUTPATIENT VISIT EST Diagnosis: Left lower quadrant pain[ICD10: R10.32] Yaima JOHNSON [facility] CPT-4: 30835 01/09/2019 ([id number]) NURSE/OUTPATIENT VISIT EST Diagnosis: Hematuria, unspecified[ICD10: R31.9] Yaima [facility]NSON [facility] CPT-4: 10260 11/01/2018 ([id number]) OFFICE/OUTPATIENT VISIT EST Diagnosis: Hypothyroidism, unspecified[ICD10: E03.9] Diagnosis: Other fatigue[ICD10: R53.83] Diagnosis: Other cervical disc degeneration, unspecified cervical region[ICD10: M50.30] Yaima [facility]OHNSON [facility] CPT-4: 20172 10/04/2018 ([id number]) OFFICE/OUTPATIENT VISIT EST Diagnosis: Hypothyroidism, unspecified[ICD10: E03.9] Diagnosis: Impaired fasting glucose[ICD10: R73.01] Diagnosis: Cervicalgia[ICD10: M54.2] [facility]: 04210 08/06/2018 ([id number]) OFFICE/OUTPATIENT VISIT EST Diagnosis: Radiculopathy, lumbosacral region[ICD10: M54.17] Diagnosis: Abrasion, left lower leg, sequela[ICD10: S80.812S] Yaima [facility]NSON [facility] CPT-4: 45946 06/21/2018 ([id number]) NURSE/OUTPATIENT VISIT EST Diagnosis: Urinary tract infection, site not specified[ICD10: N39.0] Yaima [facility]ON [facility] CPT-4: 50844 06/13/2018 ([id number]) OFFICE/OUTPATIENT VISIT EST Diagnosis: Other dorsalgia[ICD10: M54.89] [facility]: 85016 05/31/2018 ([id number]) NURSE/OUTPATIENT VISIT EST Diagnosis: FLU VACCINE[ICD10: Z23] Yaima [facility] CPT-4: 16067 03/22/2018 ([id number]) OFFICE/OUTPATIENT VISIT EST Diagnosis: Hypothyroidism, unspecified[ICD10: E03.9] Diagnosis: Essential (primary) hypertension[ICD10: I10] Diagnosis: Other seasonal allergic rhinitis[ICD10: J30.2] [facility] C[facility]: 90909 02/06/2018 ([id number]) NURSE/OUTPATIENT VISIT EST Diagnosis: Laceration of blood vessel of right index finger, initial encounter[ICD10: S65.510A] Diagnosis: VACCINE FOR TDAP[ICD10: Z23] Yaima [facility]NSON [facility] CPT-4: 48373 12/28/2017 ([id number]) OFFICE/OUTPATIENT VISIT EST Diagnosis: Tinnitus, bilateral[ICD10: H93.13] [facility] CPT-[facility]: 19200 12/18/2017 ([id number]) NURSE/OUTPATIENT VISIT EST Diagnosis: VACCIN FOR DISEASE NEC (HPV or Zostavax)[ICD10: Z23] Yaima [facility]ON [facility] CPT-4: 60484 10/04/2017 OFFICE/OUTPATIENT VISIT EST Diagnosis: Hypothyroidism, unspecified[ICD10: E03.9] Diagnosis: Essential (primary) hypertension[ICD10: I10] Diagnosis: Gastro-esophageal reflux disease without esophagitis[ICD10: K21.9] Diagnosis: Pain in right knee[ICD10: M25.561] Diagnosis: Hyperglycemia, unspecified[ICD10: R73.9] Yaima [facility]ON [facility] CPT-4: 98008 09/11/2017 ([id number]) OFFICE/OUTPATIENT VISIT EST Diagnosis: Cervicalgia[ICD10: M54.2] Diagnosis: Hypothyroidism, unspecified[ICD10: E03.9] Diagnosis: Essential (primary) hypertension[ICD10: I10] Diagnosis: Irritant contact dermatitis, unspecified cause[ICD10: L24.9] Diagnosis: FLU VACCINE[ICD10: Z23] Yaima [facility] CPT-4: 14574 03/28/2017 ([id number]) OFFICE/OUTPATIENT VISIT EST Diagnosis: Influenza due to identified novel influenza A virus with other manifestations[ICD10: J09.X9] Yaima [facility] CPT-4: 48826 09/12/2016 ([id number]) OFFICE/OUTPATIENT VISIT EST Diagnosis: Dermatitis, unspecified[ICD10: L30.9] Diagnosis: Pain in right knee[ICD10: M25.561] [facility] CPT[facility]: 51589 07/28/2016 ([id number]) OFFICE/OUTPATIENT VISIT EST Diagnosis: Incisional hernia without obstruction or gangrene[ICD10: K43.2] Diagnosis: Gastro-esophageal reflux disease without esophagitis[ICD10: K21.9] Diagnosis: Radiculopathy, lumbosacral region[ICD10: M54.17] Yaima 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] Diagnosis: Other specified diseases of liver[ICD10: K76.89] Diagnosis: Irritant contact dermatitis due to detergents[ICD10: L24.0] Yaima JOHNSON DO [facility] CPT-4: 34287 12/09/2015 ([id number]) OFFICE/OUTPATIENT VISIT EST Diagnosis: Pain in thoracic spine[ICD10: M54.6] Diagnosis: Radiculopathy, lumbosacral region[ICD10: M54.17] Diagnosis: Precordial pain[ICD10: R07.2] Yaima JOHNSON DO [facility] CPT-4: 75507 09/10/2015 ([id number]) OFFICE/OUTPATIENT VISIT EST Diagnosis: Nausea[ICD10: R11.0] Yaima JOHNSON DO [employer] [facility] CPT-4: 14022 07/20/2015 ([id number]) OFFICE/OUTPATIENT VISIT EST Diagnosis: Pain in left elbow[ICD10: M25.522] Diagnosis: Contusion of left lower leg, sequela[ICD10: S80.12XS] Diagnosis: Pleurodynia[ICD10: R07.81] Yaima HOWELL [facility] CPT-4: 85782 04/23/2015 ([id number]) OFFICE/OUTPATIENT VISIT EST Diagnosis: Unspecified abdominal pain[ICD10: R10.9] Diagnosis: Ventral hernia without obstruction or gangrene[ICD10: K43.9] Diagnosis: Constipation, unspecified[ICD10: K59.00] Yaima JOHNSON DO [facility] CPT-4: 53051 03/24/2015 ([id number]) OFFICE/OUTPATIENT VISIT EST Diagnosis: FLU VACCINE[ICD10: Z23] Yaima EUGENE [facility] CPT-4: 52499 03/09/2015 ([id number]) OFFICE/OUTPATIENT VISIT EST 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 CPT-4: 94090 12/25/2014 ([id number]) OFFICE/OUTPATIENT VISIT EST Diagnosis: ABDOMINAL PAIN[ICD9: 789.00] Diagnosis: PAIN, LOWER BACK[ICD9: 724.2] Diagnosis: Contusion of leg[ICD9: 924.5] Yaima [facility] CPT-4: 60159 11/26/2014 ([id number]) OFFICE/OUTPATIENT VISIT EST Diagnosis: IBS[ICD9: 564.1] Diagnosis: GERD[ICD9: 530.81] Yaima [facility] CPT-4: 25605 11/04/2014 ([id number]) OFFICE/OUTPATIENT VISIT EST Diagnosis: Headache[ICD9: 784.0] Diagnosis: Leg pain[ICD9: 729.5] Yiama [facility] CPT-4: 06663 09/01/2014 ([id number]) OFFICE/OUTPATIENT VISIT EST Diagnosis: DYSURIA[ICD9: 788.1] Yaima JOHNSON DO [facility] CPT-4: 71409 07/10/2014 OFFICE/OUTPATIENT VISIT EST Diagnosis: VAGINITIS[ICD9: 623.5] Diagnosis: SINUSITIS, ACUTE[ICD9: 461.9] Yaima JOHNSON DO [facility] CPT-4: 43444 06/02/2014 ([id number]) OFFICE/OUTPATIENT VISIT EST Diagnosis: HYPERTENSION[ICD9: 401.9] Diagnosis: ALLERGIC RHINITIS[ICD9: 477.9] Diagnosis: PAIN, LOWER BACK[ICD9: 724.2] Yaima [facility] CPT-4: 13082 04/08/2014 ([id number]) OFFICE/OUTPATIENT VISIT EST Diagnosis: COUGH[ICD10: R05] Diagnosis: Thoracic back pain[ICD9: 724.1] Yaima [facility] CPT-4: 20874 03/05/2014 ([id number]) OFFICE/OUTPATIENT VISIT EST Diagnosis: SINUSITIS, ACUTE[ICD9: 461.9] Diagnosis: BRONCHITIS, ACUTE[ICD9: 466.0] Yaima [facility] CPT-4: 26224 07/29/2013 ([id number]) OFFICE/OUTPATIENT VISIT EST Diagnosis: ABDOMINAL PAIN[ICD9: 789.00] Diagnosis: Constipation[ICD9: 564.00] Diagnosis: DIVERTICULITIS, COLONIC[ICD9: 562.11] Yaima [facility] CPT-4: 81521 03/20/2013 ([id number]) OFFICE/OUTPATIENT VISIT EST Diagnosis: Plantar fasciitis[ICD9: 728.71] Diagnosis: ALLERGIC RHINITIS[ICD9: 477.9] Yaima [facility] CPT-4: 99136 02/12/2013 OFFICE/OUTPATIENT VISIT EST Diagnosis: Skin lesion[ICD9: 709.9] Diagnosis: Lumbar back pain[ICD9: 724.2] Diagnosis: Muscle spasm[ICD9: 728.85] Diagnosis: Hypothyroid[ICD9: 244.9] Yaima [facility] CPT-4: 92410 11/05/2012 ([id number]) OFFICE/OUTPATIENT VISIT EST Diagnosis: Cervicalgia[ICD9: 723.1] Diagnosis: Thoracic back pain[ICD9: 724.1] Diagnosis: SPASM OF MUSCLE[ICD9: 728.85] Yaima [facility] CPT-4: 72669 10/04/2012 ([id number]) OFFICE/OUTPATIENT VISIT EST Diagnosis: MALAISE AND FATIGUE[ICD9: 780.79] Diagnosis: HYPOTHYROIDISM[ICD9: 244.9] Diagnosis: HYPERTENSION[ICD9: 401.9] Yaima MCCORMACKPAOLA Ravi. ORE NDER DO [facility] CPT-4: 43442 09/24/2012 ([id number]) OFFICE/OUTPATIENT VISIT EST Diagnosis: Lateral epicondylitis[ICD9: 726.32] Diagnosis: Wrist pain[ICD9: 719.43] Diagnosis: Numbness and tingling in right hand[ICD9: 782.0] Yaima Johnson YAIMA BreonnaRobin JOSUENDVALORIE DO [facility] CPT-4: 74699 05/10/2012 OFFICE/OUTPATIENT VISIT EST Diagnosis: MALAISE AND FATIGUE[ICD9: 780.79] Diagnosis: HYPOTHYROIDISM[ICD9: 244.9] Diagnosis: Enthesopathy of the wrist and carpus[ICD9: 726.4] Diagnosis: Foot pain[ICD9: 729.5] Diagnosis: DYSPHAGIA NEC[ICD9: 787.29] Yaima Gaytanvalorie SAMUELS S. O RENDER DO [facility] CPT-4: 48476 03/07/2012 ([id number]) OFFICE/OUTPATIENT VISIT EST Diagnosis: HYPOTHYROIDISM[ICD9: 244.9] Yaima Johnson YAIMA S. O RENDER DO [facility] CPT-4: 17899 02/01/2012 ([id number]) OFFICE/OUTPATIENT VISIT EST Diagnosis: MALAISE AND FATIGUE[ICD9: 780.79] Diagnosis: HYPOTHYROIDISM[ICD9: 244.9] Yaima Josuebrandon SAMUELS S. O RENDER DO [facility] CPT-4: 44891 12/20/2011 OFFICE/OUTPATIENT VISIT EST Diagnosis: INSECT BITE HIP/LEG[ICD9: 916.4] Lizzette JOHNSON DO [facility] CPT-4: 23355 11/22/2011 OFFICE/OUTPATIENT VISIT EST Diagnosis: HEMATURIA NOS[ICD9: 599.70] Yaima Josuejulianvalorie YAIMA S. O RENDER DO [facility] CPT-4: 62146 07/14/2011 OFFICE/OUTPATIENT VISIT EST Diagnosis: URINARY TRACT INFECTION[ICD9: 599.0] Diagnosis: DIVERTICULITIS, COLONIC[ICD9: 562.11] Yaima Josuebrandon CHAY RaviRobin [facility] CPT-4: 90954 07/11/2011 OFFICE/OUTPATIENT VISIT EST Diagnosis: TMJ arthritis[ICD9: 524.69] Diagnosis: MIGRAINE NOS/NOT INTRCBL[ICD9: 346.90] Diagnosis: Rectal fissure[ICD9: 565.0] Yaima Josuebrandon [facility] CPT-4: 64217 07/06/2011 OFFICE/OUTPATIENT VISIT EST Diagnosis: SPASM OF MUSCLE[ICD9: 728.85] Diagnosis: PAIN, LOWER BACK[ICD9: 724.2] Yaima Josuebrandon SAMUELS BreonnaRobin [facility] CPT-4: 35307 05/26/2011 OFFICE/OUTPATIENT VISIT EST Diagnosis: PAIN, LOWER BACK[ICD9: 724.2] Diagnosis: SPASM OF MUSCLE[ICD9: 728.85] Yaima Josuebrandon SAMUELS BreonnaRobin [facility] CPT-4: 76655 05/16/2011 OFFICE/OUTPATIENT VISIT EST Diagnosis: PAIN, LOWER BACK[ICD9: 724.2] Diagnosis: ENTHESOPATHY OF HIP[ICD9: 726.5] Diagnosis: Onychomycosis[ICD9: 110.1] Yaima Josuebrandon [facility] CPT-4: 53000 05/05/2011 OFFICE/OUTPATIENT VISIT EST Diagnosis: Diverticulitis[ICD9: 562.11] Yaima Josuebrandon Escalera [facility] CPT-4: 61644 04/05/2011 OFFICE/OUTPATIENT VISIT EST Diagnosis: CHEST PAIN NOS[ICD9: 786.50] Diagnosis: PALPITATIONS[ICD9: 785.1] Diagnosis: Pulmonary arterial hypertension[ICD9: 416.8] Yaima Josuebrandon SAMUELS BreonnaRobin [facility] CPT-4: 54002 03/02/2011 OFFICE/OUTPATIENT VISIT EST Yaima Josuebrandon SAMUELS BreonnaRobin [facility]UE [facility] CPT- 4: 16592 01/05/2011 ([id number]) OFFICE/OUTPATIENT VISIT EST Yaima Josuebrandon [facility] CPT-4: 88466 11/16/2010 ([id number]) OFFICE/OUTPATIENT VISIT EST Yaima AGUIRRE [facility] CPT-4: 25142 11/04/2010 ([id number]) OFFICE/OUTPATIENT VISIT EST Yaima AGUIRRE [facility] CPT-4: 91390 08/05/2010 ([id number]) OFFICE/OUTPATIENT VISIT EST Yaima AGUIRRE [facility] CPT-4: 16398 07/23/2010 ([id number]) OFFICE/OUTPATIENT VISIT, EST [facility] CPT-4: 71273 06/07/2010 ([id number]) OFFICE/OUTPATIENT VISIT, EST Yaima ZUNIGA [facility] CPT-4: 13321 05/12/2010 ([id number]) OFFICE/OUTPATIENT VISIT, EST Yaima [facility]UNIGA [facility] CPT-4: 88237 04/27/2010 ([id number]) OFFICE/OUTPATIENT VISIT, EST Yaima [facility]UNIGA [facility] CPT-4: 79724 04/19/2010 ([id number]) OFFICE/OUTPATIENT VISIT, EST Yaima [facility]UNIGA [facility] CPT-4: 28653 03/09/2010 ([id number]) OFFICE/OUTPATIENT VISIT, EST Yaima ZUNIGA [facility] CPT-4: 63652 01/04/2010 ([id number]) OFFICE/OUTPATIENT VISIT, EST Yaima [facility]UNIGA [facility] CPT-4: 16865 12/14/2009 ([id number]) OFFICE/OUTPATIENT VISIT, EST Lizzette Lozano [facility] CPT-4: 58741 11/23/2009 Plan of Care Planned Activity Notes [...] Plan: COMPREH[place] : [address]-4 Pending 06/18/2019 Care Plan: LIPID PANEL LOINC : 60255-9 Pending 06/18/2019 Care Plan: A1C HPLC LOINC : 04246-5 Pending 06/18/2019 Care Plan: COMPLETE CBC W/AUTO DIFF WBC LOINC : 89918-3 Pending 06/18/2019 Care Plan: ASSAY THYROID STIM [...] ICD-10 : M54.5 04/12/2019 Appointment: Jane Nettles [address] [place] [address] ACUTE ILLNESS 04/12/2019 Appointment: Yaima Johnson WPtel: [address] [place] [address] US CANCELED 02/05/2019 Visit Diagnosis Plan: Pain in thoracic spine Discussio n: Moist Heat Topical Muscle Rub Towel Stretch Skelaxin with Tylenol Arthritis TID Okay to use lidoderm patches Notify if persists ICD-9 : 724.1 ICD-10 : M54.6 01/16/2019 Appointment: Yaima Johnson WPtel: [address] [place] [address] ACUTE ILLNESS 01/16/2019 Appointment: Yaima Johnson WPtel: [address] [place], [place] [phone] UA 01/14/2019 Visit Diagnosis Plan: Left lower quadrant pain Discuss ion: Appears to have a hernia so did discuss surgical evaluation ICD-9 : 789.04 ICD-10 : R10.32 01/09/2019 Appointment: Yaima Johnson WPtel: [address] [place] [address] ACUTE ILLNESS 01/09/2019 Visit Diagnosis Plan: Encounter for [facility] adult medical examination without abnormal [...] : Z00.00 11/21/2018 Appointment: Yaima Johnson WPtel: [address] [place] [address] WELCOME TO MEDICARE 11/21/2018 Care Plan: Referral Order SNOMED-CT : 30 [id number] Pending 11/21/2018 Appointment: Yaima Johnson WPtel: [address] [place] [address] 11/01/2018 Visit Diagnosis Plan: Hypothyroidism, unspecified Disc ussion: Restart synthroid at 50mcg daily and recheck lab in 3mos ICD-9 : 244.9 ICD-10 : E03.9 10/04/2018 Visit Diagnosis Plan: Other cervical dis c degeneration, unspecified cervical region Discussion: MRI results discussed fw w [facility] [place] [facility] Johnson ICD-9 : 722.4 ICD-10 : M50.30 10/04/2018 Appointment: Yaima Johnson WPtel: [address] [place] [address] FOLLOW UP 10/04/2018 Care Plan: Referral Order SNOMED-CT : 30 [id number] Pending 10/04/2018 Visit Diagnosis Plan: Hypothyroidism, unspecified [...] ICD-10 : M54.2 08/06/2018 Appointment: Yaima Johnsontel: [address] [place] [address] Schedule medicare annual! FOLLOW UP 2018 Patient Education: levothyroxine- [employer] Coupon [phone] [id number] [email or web address] Completed 08/06/2018 Visit Diagnosis Plan: Radiculopathy, lumbosacral regio n Discussion: Daily stretches and see if improves--low dose gabapentin trial q HS if does not improve Lab and fwup in 3mos ICD-9 : 724.4 ICD-10 : M54.17 06/21/2018 Visit Diagnosis Plan: Abrasion, left lower leg, sequel a Discussion: Vitamin E topically for scarring/dryness ICD-9 : 906.2 ICD-10 : S80.812S 06/21/2018 Appointment: Yaima Johnsontel: [address] [place], [place] [phone] ACUTE ILLNESS 06/21/2018 Appointment: Yaima Johnsontel: [address] [place], [place] [phone] UA 06/13/2018 Visit Diagnosis Plan: Other dorsalgia [...] ICD-10 : M54.89 05/31/2018 Appointment: Jane Nettles [address] [place] [address] ACUTE ILLNESS 05/31/2018 Appointment: Yaima Johnson WPtel: [address] [place] [address] US INJECTION 03/22/2018 Patient Education: Patient Medication Summary Completed 03/22/2018 Patient Education: INFLUENZA VACCINE CDC Completed 03/22/2018 Appointment: Yaima Johnson WPtel: [address] [place] [address] US RESCHEDULED 02/14/2018 Visit Diagnosis Plan: Hypothyroidism, [...] ICD-10 : J30.2 02/06/2018 Appointment: Yaima Johnsontel: [address] [place], [place] [phone] US FOLLOW UP 02/06/2018 Patient Education: Patient Medication Summary Completed 02/06/2018 Appointment: Yaima Johnson WPtel: [address] [place], [place] [phone] US INJECTION 12/28/2017 Patient Education: Patient Medication Summary Completed 12/28/2017 Appointment: Yaima Johnsontel: [address] [place], [place] [phone] US RESCHEDULED 12/25/2017 Visit Diagnosis Plan: Tinnitus, bilateral Discussion: See ENT for hearing eval and further workup ICD-9 : 388.31 ICD-10 : H93.13 12/18/2017 Appointment: Yaima Johnson WPtel: [address] [place], [place] [phone] ACUTE ILLNESS 12/18/2017 Patient Education: Patient Medication Summary Completed 12/18/2017 Patient Education: Tinnitus Completed 12/18/2017 Care Plan: Referral Order SNOMED-CT : 30 [id number] Pending 12/18/2017 Appointment: Yaima Johnson WPtel: [address] [place], [place] [phone] BP CHECK 12/11/2017 Patient Education: Patient Medication Summary Completed 12/11/2017 Referral: Danyel Hernandez WPtel: [facility] [address] Referral Initiated 10/11/2017 Appointment: Yaima Johnson WPtel: [address] [place], [place] [phone] INJECTION 10/04/2017 Patient Education: Patient Medication Summary [...] E03.9 09/11/2017 Appointment: Yaima Johnson WPtel: [phone] [phone] FOLLOW UP 09/11/2017 Patient Education: Patient Medication Summary Completed 09/11/2017 Appointment: Jane Nettles [address] [place] [address] 08/28/17 1715---issue addressed in phone message (km) CANCELED 08/29/2017 Patient Education: Patient Medication Summary Completed 07/11/2017 Care Plan: A1C HPLC LOINC : 70502-0 Pending 07/11/2017 Care Plan: ASSAY OF FREE THYROXINE Pendin g 07/11/2017 Care Plan: ASSAY THYROID STIM HORMONE Pen ding 07/11/2017 Care Plan: COMPLETE CBC W/AUTO DIFF WBC LOINC : 74127-6 Pending 07/11/2017 Care Plan: [place] : [address]-6 Pending 07/11/2017 Visit Diagnosis Plan: Irritant contact [...] E03.9 03/28/2017 Appointment: Yaima Johnson WPtel: [phone] [facility] ACUTE ILLNESS 03/28/2017 Patient Education: Patient Medication Summary Completed 03/28/2017 Patient Education: Patient Medication Summary Completed 02/17/2017 Care Plan: ASSAY OF FREE THYROXINE Pendin g 02/17/2017 Care Plan: ASSAY THYROID STIM HORMONE Pen ding 02/17/2017 Care Plan: A1C HPLC LOINC : 05617-4 Pending 02/17/2017 Patient Education: Patient Medication Summary Completed 11/23/2016 Care Plan: A1C HPLC LOINC : 10424-7 Pending 11/23/2016 Patient Education: Patient Medication Summary Completed 11/22/2016 Care Plan: COMPREH[place] : [address]-1 Pending 11/22/2016 Care Plan: ASSAY THYROID STIM HORMONE Pen ding 11/22/2016 Care Plan: ASSAY OF FREE THYROXINE Pendin g 11/22/2016 Care Plan: CBC Pending 11/22/2016 Care Plan: ASSAY TRIIODOTHYRONINE (T3) Pe nding 11/22/2016 Care Plan: ASSAY OF IRON Pending Care Plan: VITAMIN B-12 Pending 11/04 Patient Education: Patient Medication Summary Completed 11/09/2016 Care Plan: US EXAM ABDO BACK WALL COMP L OINC : 69428-8 Pending 11/09/2016 Patient Education: Patient Medication Summary Completed 09/26/2016 Visit Diagnosis Plan: Influenza due to i dentified novel influenza A virus with other manifestations Discussion: Tamiflu for her and ICD-9 : 488.09 ICD-10 : J09.X9 09/12/2016 Visit NOS Plan: Plan Notes: Saline nasal flu shes prn. Tyle... 09/12/2016 Appointment: Yaima Johnson WPtel: [address] [place], [place] [phone] ACUTE ILLNESS 09/12/2016 Patient Education: Patient Medication [...] Johnson WPtel: [phone] [facility] 07/27 confirmed `sl ACUTE ILLNESS 07/28/2016 Patient [...] see how does 04/26/2016 Appointment: Yaima Johnsontel: [address] [place] [address] ACUTE ILLNESS 04/26/2016 Patient Education: Patient Medication Summary Completed 04/26/2016 Appointment: Yaima Johnson WPtel: [address] [place] [address] US INJECTION 04/22/2016 Patient Education: Patient Medication Summary Completed 04/22/2016 Appointment: Yaima Johnson WPtel: [address] [place] [address] Stool lab 01/04/2016 Patient Education: Patient Medication Summary Completed 01/04/2016 Visit Plan: Calmoseptine to irritated gr oin area Discussed that liver lesion and right kidney cyst are stable dating back to 2009 so likely benign and will recheck in 1year Check CMP and CBC 12/09/2015 Appointment: Yaima Johnson WPtel: [address] [place] [address] FOLLOW UP 12/09/2015 Patient Education: Patient Medication Summary Completed 12/09/2015 Patient Education: Patient Medication Summary Completed 11/26/2015 Care Plan: ECHO EXAM OF ABDOMEN LOINC : 46025-8 Pending 11/26/2015 Care Plan: US EXAM ABDO BACK WALL COMP L OINC : 00130-6 Pending 11/26/2015 Patient Education: Patient Medication Summary Completed 11/10/2015 Care Plan: ASSAY THYROID STIM HORMONE Pen ding 11/10/2015 Care Plan: ASSAY OF FREE THYROXINE Pendin g 11/10/2015 Visit Plan: Start PT for both right leg sciatica and thoracics for chest pain 09/10/2015 Appointment: Yaima Johnson WPtel: [address] [place] [address] ACUTE ILLNESS 09/10/2015 Patient Education: Patient Medication Summary Completed 09/10/2015 Appointment: Yaima Johnson WPtel: [address] [place], [place] [id number] [place] INJECTION 07/20/2015 Patient Education: Patient Medication Summary Completed 07/20/2015 Patient Education: Patient Medication Summary Completed 05/04/2015 Visit Plan: Observe left elbow for next 2 weeks and if not improving let us know Observe left leg bruising Can use voltaren gel to elbow Observe ribs Lidoderm patch for SI joint 04/23/2015 Appointment: Yaima Johnson WPtel: [address] [place], [place] [phone] [place] FOLLOW UP 04/23/2015 Patient Education: Patient Medication Summary Completed 04/23/2015 Patient Education: Patient Medication Summary Completed 04/20/2015 Visit Plan: Discussed CT results Add [place] alax 1/2 cap every other day 03/24/2015 Appointment: Yaima Johnson WPtel: [address] [place], [place] [phone] [place] 03/23 confirmed~sl FOLLOW UP 03/24/2015 Patient Education: Patient Medication Summary Completed 03/24/2015 Appointment: Yaima Johnson WPtel: [address] [place], [place] [phone] [place] INJECTION 03/09/2015 Patient Education: Patient Medication Summary Completed 03/09/2015 Visit Plan: Check CT scan of abdomen and pelvis with oral contrast Thoracic towel stretch 03/05/2015 Appointment: Yaima Johnson WPtel: [address] [place], [place] [phone] [place] FOLLOW UP 03/05/2015 Patient Education: Patient Medication Summary Completed 03/05/2015 Referral: Richmond Berger WPtel: [address] [id number] [place] Referral Initiated 02/23/2015 Visit Plan: Lab [...] and left knee 02/19/2015 Appointment: Yaima Johnsontel: [address] [place] [address] 02/18/15 lm confirmed with cb FOLLOW UP Patient Education: Patient Medication Summary Completed 02/19/2015 Patient Education: Patient Medication Summary Completed 02/04/2015 Appointment: Yaima Johnson WPtel: [address] [place] [address] US FOLLOW UP 01/06/2015 Visit Plan: Decrease levothyroxine to 50 mcg daily Recheck TSH and Free T4 in 2mos then fwup 12/25/2014 Appointment: Yaima Johnson WPtel: [address] [place] [address] ACUTE ILLNESS 12/25/2014 Patient Education: Patient Medication Summary Completed 12/25/2014 Patient Education: [facility] - Saving [employer] - Levothyroxine - 18-64 - Dynamic Portal ID Completed 12/25/2014 Patient Education: Patient Medication Summary Completed 12/15/2014 Visit Plan: Observe left leg keep meds s robert Has scheduled for 2nd epidural Recheck 3-4weeks after next epidural 11/26/2014 Appointment: Yaima Johnson WPtel: [address] [place] [address] 11/25 appt confirmed cn FOLLOW UP 11/27/19 15 Patient Education: Patient Medication Summary Completed 11/26/2014 Visit Plan: Increase Protonix to 40mg po BID Add Bentyl 10mg BID and up to TID prn Patient goes for back injection in 3 weeks Fwup 1 week after back injection 11/04/2014 Appointment: Yaima Johnsontel: [address] [place] [address] 11/03/ 11/04 appt confirmed ACUTE ILLNESS 0 11/04/2014 Patient Education: Patient Medication Summary Completed 11/04/2014 Appointment: Yaima Johnson WPtel: [address] [place], [place] [phone] 10/14/14: doing better-canceled appt-lb ACUTE ILL NESS 10/15/2014 Visit Plan: hydration stop benadryl Obse rve and monitor Headaches Leg stretches, going to PT today-have them show stretches Notify if headaches, leg pain return/persist 09/01/2014 Appointment: Yaima Johnson WPtel: [address] [place], [place] [phone] ACUTE ILLNESS 09/01/2014 Patient Education: Patient Medication Summary Completed 09/01/2014 Patient Education: Patient Medication Summary Completed 08/05/2014 Care Plan: ASSAY OF FREE THYROXINE Ordere d 08/05/2014 Care Plan: ASSAY THYROID STIM HORMONE Ord ered 08/05/2014 Appointment: Yaima Johnson WPtel: [address] [place], [place] [phone] UA 07/10/2014 Patient Education: Patient Medication Summary Completed 07/10/2014 Patient Education: Patient Medication Summary Completed 07/03/2014 Care Plan: HEPATIC FUNCTION PANEL Ordered 07/03/2014 Visit Plan: Vaginal ring unable to be in serted do will have to stick with pill vaginally as prescribed for at least 6mo trial Saline nasal flushes and restart flonase 06/02/2014 Appointment: Yaima Johnson WPtel: [address] [place], [place] [phone] FOLLOW UP 06/02/2014 Patient Education: Patient Medication Summary Completed 06/02/2014 Appointment: Yaima Johnson WPtel: [address] [place], [place] [phone] BP CHECK 05/26/2014 Patient Education: Patient Medication Summary Completed 05/26/2014 Patient Education: Patient Medication Summary Completed 05/22/2014 Appointment: Yaima Johnson WPtel: [address] [place], [place] [phone] BP CHECK 05/07/2014 Patient Education: Patient Medication Summary Completed 05/07/2014 Referral: Nitesh Avalos WPtel: [address] [place]aj 403 [id number] MRI Scheduled at [place], 04/17 3pm Completed 04/30/2014 Appointment: Yaima Johnson WPtel: [address] [place] [address] BP CHECK 04/15/2014 Visit Plan: Decrease premarin to 0.3125m g for 1week then stop Restart estrogen vaginal tabs and Patient requests to see Dr. Restrepo for back but discussed at this time appears to need conservative management such as PT and epidurals Moniter BP 04/08/2014 Appointment: Yaima Johnson WPtel: [address] [place] [address] ACUTE ILLNESS 04/08/2014 Patient Education: Patient Medication Summary Completed 04/08/2014 Appointment: Yaima Johnson WPtel: [address] [place] [address] ACUTE ILLNESS 03/10/2014 Visit Plan: Thoracic stretches daily Ske laxin 800mg BID Use vimovo prn Use gemma prn 03/05/2014 Appointment: Yaima Johnson WPtel: [address] [place] [address] ACUTE ILLNESS 03/05/2014 Patient Education: Patient Medication Summary Completed 03/05/2014 Visit Plan: Saline nasal flushes prn. Ty lenol/Motrin prn headache. Notify if persists/symptoms worsening. Zithromax and Prednisone Supportive care. Rest, Fluids, Tylenol/Motrin prn fever or bodyaches. Notify if worsening symptoms. 07/29/2013 Appointment: Mimi Keenan WPtel: [address] [place] [address] FOLLOW UP 07/29/2013 Patient Education: Patient Medication Summary Completed 07/29/2013 Appointment: Mimi Keenan WPtel: [address] [place] [address] 05/22 patient called back and reschedule d 05/24 vm not set up yet ACUTE ILLNESS 05/27/20 13 Visit Plan: Add miralax Cipro/Flagyl Pt has appointment with GI in NOV 03/20/2013 Appointment: Yaima Johnson WPtel: [address] [place] [address] ACUTE ILLNESS 03/20/2013 Patient Education: Patient Medication Summary Completed 03/20/2013 Visit Plan: Tullicups Stretches, ice, vo ltaren gel TID 02/12/2013 Appointment: Yaima Johnson WPtel: [address] [place] [address] ACUTE ILLNESS 02/12/2013 Patient Education: Patient Medication [...] Oct 2012. 11/05/2012 Appointment: Lizzette Lozano WPtel: [address] [place] [address] ACUTE ILLNESS 11/05/2012 Patient Education: Patient Medication Summary Completed 11/05/2012 Appointment: Yaima Johnson WPtel: [address] [place] [address] FOLLOW UP 10/04/2012 Patient Education: Patient Medication Summary Completed 10/04/2012 Visit Plan: Change toprol back to bystol ic BP check in 3wks Continue to observe hands--no observed bruising today 09/24/2012 Appointment: Yaima Johnson WPtel: [address] [place] [address] 09/21 left message ACUTE ILLNESS 09/24/2012 Patient Education: Patient Medication Summary Completed 09/24/2012 Visit Plan: Proceed with EMG of RUE Cont inue vimovo and skelaxin May use Voltaren gel TID to elbow and wrist 05/10/2012 Appointment: Yaima Johnson WPtel: [address] [place], [place] [phone] 05/09 left voicemail ACUTE ILLNESS 05/10/2012 Patient [...] is improving 03/07/2012 Appointment: Yaima Johnson WPtel: [address] [place] [address] FOLLOW UP 03/07/2012 Patient Education: Patient Medication Summary Completed 03/07/2012 Visit Plan: Continue current dose Check TSH, Free T4 in 2mos 02/01/2012 Appointment: Yaima Johnson WPtel: [address] [place] [address] FOLLOW UP 02/01/2012 Patient Education: Patient Medication Summary Completed 02/01/2012 Visit Plan: Levothyroxine 50mcg po daily 12/20/2011 Appointment: Yaima Johnson WPtel: [address] [place], [place] [phone] FOLLOW UP 12/20/2011 Patient Education: Patient Medication Summary Completed 12/20/2011 Appointment: Lizzette Lozano WPtel: [address] [place], [place] [phone] ACUTE ILLNESS 11/22/2011 Patient Education: Patient Medication Summary Completed 11/22/2011 Appointment: Yaima Johnson WPtel: [address] [place], [place] [phone] UA 07/14/2011 Patient Education: Patient Medication Summary Completed 07/14/2011 Visit Plan: Finish current abx Clear liq uids to full liquids and then advance as tolerated If worsens will notify immediately Schedule with Dr. Berger for colonoscopy/EGD 07/11/2011 Appointment: Yaima Johnson WPtel: [address] [place] [address] ER Follow UP 07/11/2011 Patient Education: Patient Medication Summary Completed 07/11/2011 Visit Plan: Take treximet today and skel axin at bedtime Add anusol cream for 1wk Discussed if colon continues to flare-up over the next 6mos will repeat colonoscopy 07/06/2011 Appointment: Yaima Johnson WPtel: [address] [place] [address] ACUTE ILLNESS 07/06/2011 Patient Education: Patient Medication Summary Completed 07/06/2011 Appointment: Yaima Johnson WPtel: [address] [place] [address] INJECTION 06/28/2011 Patient Education: Patient Medication Summary Completed 06/28/2011 Visit Plan: OMT done Increase Skelaxin t o TID Start PT Daily stretches 05/26/2011 Appointment: Yaima Johnson WPtel: [address] [place] [address] ACUTE ILLNESS 05/26/2011 Patient Education: Patient Medication Summary Completed 05/26/2011 Visit Plan: OMT done Daily stretches, bi ofreeze Restart skelaxin 05/16/2011 Appointment: Yaima Johnson WPtel: [address] [place] [address] OMT 05/16/2011 Patient Education: Patient Medication Summary Completed 05/16/2011 Visit Plan: OMT done to back Stretches, moist heat and biofreeze Observe toenails 05/05/2011 Appointment: Yaima Johnson WPtel: [address] [place] [address] ACUTE ILLNESS 05/05/2011 Patient Education: Patient Medication Summary Completed 05/05/2011 Visit Plan: Finish Flagyl Continue Cultu relle and add Levbid for 1more week 04/05/2011 Appointment: Yaima Johnson WPtel: [address] [place], [place] [phone] ER Follow UP 04/05/2011 Patient Education: Patient Medication Summary Completed 04/05/2011 Appointment: Lizzette Lozano WPtel: [address] [place], [place] [phone] ACUTE ILLNESS 03/25/2011 Appointment: Yaima Johnson WPtel: [address] [place], [place] [phone] UA 03/23/2011 Patient Education: Patient Medication Summary Completed 03/23/2011 Visit Plan: Recommend proceed with heart cath Will check PFTs 03/02/2011 Appointment: Yaima Johnson WPtel: [address] [place] [address] FOLLOW UP 03/02/2011 Patient Education: Patient Medication Summary Completed 03/02/2011 Appointment: Yaima Johnson WPtel: [address] [place] [id number] 01/14/2011 Patient Education: Patient Medication Summary Completed 01/14/2011 Appointment: Lizzette Lozano WPtel: [address] [place], [place] [id number] ACUTE ILLNESS 01/05/2011 Patient Education: Patient Medication Summary Completed 01/05/2011 Visit Plan: Once again stressed jcarlosan ce of using premarin vaginal cream routinely to see if helps urinary symptoms Will culture urine Will observe lipomas--discussed may see surgery for removal 11/16/2010 Appointment: Yaima Johnson WPtel: [address] [place] [address] ACUTE ILLNESS 11/16/2010 Patient Education: Patient Medication Summary Completed 11/16/2010 Visit Plan: Injection to bursa as above Pt will continue to moniter BP and pulse off meds Repeat potassium level in 1wk 11/04/2010 Appointment: Yaima Johnson WPtel: [address] [place], [place] [id number] FOLLOW UP 11/04/2010 Patient Education: Patient Medication Summary Completed 11/04/2010 Appointment: Yaima Johnsontel: [address] [place], [place] [id number] FOLLOW [facility] 08/05/2010 Patient Education: Patient Medication Summary Completed 08/05/2010 Appointment: Yaima Johnson WPtel: [address] [place] [address] ACUTE ILLNESS 07/23/2010 Patient Education: Patient Medication Summary Completed 07/23/2010 Appointment: Yaima Johnsontel: [address] [place] [address] UA 07/05/2010 Patient Education: Patient Medication Summary Completed 07/05/2010 Appointment: Yaima Johnson WPtel: [address] [place] [address] BP CHECK 06/28/2010 Patient Education: Patient Medication Summary Completed 06/28/2010 Appointment: Yaima Johnsontel: [address] [place] [address] UA 06/14/2010 Appointment: Yaima Johnson WPtel: [address] [place] [address] BP CHECK 06/14/2010 Appointment: Yaima Johnson WPtel: [address] [place] [address] BP CHECK 06/14/2010 Patient Education: Patient Medication Summary Completed 06/14/2010 Patient Education: Patient Medication Summary Completed 06/14/2010 Appointment: Yaima Johnsontel: [address] [place] [address] [place] BP CHECK 06/10/2010 Visit Plan: Decrease lisinopril hct to 1 0/12.5mg QD and moniter BP BP check in 2-3wks--if pulse is increasing will go back to bystolic See ENT to evaluate hoarseness 06/07/2010 Appointment: Yaima Johnson WPtel: [address] [place] [address] FOLLOW UP 06/07/2010 Patient Education: Patient Medication [...] (See printoff) 05/12/2010 Appointment: Lizzette Lozano WPtel: [address] [place] [address] ACUTE ILLNESS 05/12/2010 Patient Education: Patient Medication Summary Completed 05/12/2010 Visit Plan: Continue Bentyl at QA and H S Continue protonix but increase to BID for 5-7 days If any fever or signs of divertuclitis develop notify 04/27/2010 Appointment: Yaima Johnson WPtel: [address] [place] [address] ACUTE ILLNESS 04/27/2010 Patient Education: Patient Medication Summary Completed 04/27/2010 Visit Plan: flako barajas. Refils. Kaden hernandez #90, -written RX 04/19/2010 Appointment: Lizzette Lozano WPtel: [address] [place] [address] ACUTE ILLNESS 04/19/2010 Patient Education: Patient Medication Summary Completed 04/19/2010 Appointment: Yaima Johnson WPtel: [address] [place] [address] 04/12/2010 Patient Education: Patient Medication Summary Completed 04/12/2010 Appointment: Yaima Johnson WPtel: [address] [place], [place] [id number] UA 04/08/2010 Patient Education: Patient Medication Summary Completed 04/08/2010 Appointment: Yaima Johnson WPtel: [address] [place] [address] FOLLOW UP 03/09/2010 Patient Education: Patient Medication Summary Completed 03/09/2010 Appointment: Yaima Johnson WPtel: [address] [place] [address] BP CHECK 01/19/2010 Patient Education: Patient Medication Summary Completed 01/19/2010 Visit Plan: Check CT head Increase Bysto lic to 5mg QD BP check in 2wks 01/04/2010 Appointment: Yaima Johnson WPtel: [address] [place] [address] ACUTE ILLNESS 01/04/2010 Patient Education: Patient Medication Summary Completed 01/04/2010 Appointment: Yaima Johnson WPtel: [address] [place] [address] BP CHECK 12/21/2009 Patient Education: Patient Medication Summary Completed 12/21/2009 Visit Plan: Change cenestin back to Liu emigdio Cont to moniter BP BP check in 1wk 12/14/2009 Appointment: Yaima Johnson WPtel: [address] [place] [address] FOLLOW UP 12/14/2009 Patient Education: Patient Medication Summary Completed 12/14/2009 Appointment: Lizzette Lozano WPtel: [address] [place] [address] FOLLOW UP 11/23/2009 Patient Education: Patient Medication Summary Completed 11/23/2009 Appointment: Yaima Johnson WPtel: [address] [place] [address] [place] LAB 09/29/2009 Patient Education: Patient Medication Summary Completed 09/29/2009 Appointment: Yaima Johnson WPtel: [address] [place] [address] LAB 08/12/2009 Patient Education: Patient Medication Summary Completed 08/12/2009 Referral: Richmond Berger WPtel: [address] [id number] [place] Referral Appointment Requested Referral: Jayce Boyce WPtel: [address] [id number] [place] Referral Appointment Requested Referral: Naldo Johnson WPtel: [address] [id number] [place] Referral Initiated Referral: Naldo Johnson WPtel: [address] [id number] [place] Referral Appointment Requested Instructions Comment . [...]
--- OUTSIDE RECORDS SUMMARY | 2019-08-15 06:10 | XMS REPORT | CCD ---
Author Author Fay Johnson D.O. 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 Name Role Phone Yaima Johnson D.O., PP Unavailable CCM Unavailable Summary Purpose Interface Exchange Insurance Providers Payer name Policy type / Coverage type Covered green party ID Effective Begin Date Effective End Date WPS MEDICARE PART B [place] Medicare Part B [id number] 2018 Unknown [facility] Medicare Part B [id number] 2018 Unknown Family History Family History data not found Social History Social History Element Codes Description Effective Dates Marital status Unknown 05/16/[address]: [id number] Never smoker 04/05/2011 Allergies, Adverse Reactions, Alerts Substance Reaction Codes Entered Date Inactivated Date Status _ Unknown 11/23/2009 No Inactive Date Active * NO KNOWN FOOD ALLERGIES Unknown 11/23/2009 No Inactiv e Date Active _ Unknown 11/23/2009 No Inactive Date Active Problems Condition Codes Effective Dates Condition Status Essential (primary) hypertension ICD-9: 401.9 ICD-10: I10 03/28/2017 Active Hyperglycemia, unspecified ICD-9: 790.29 ICD-10: R73.9 02/17/2017 Active Hypothyroidism ICD-9: 244.9 ICD-10: E03.9 08/05/2014 Active Osteopenia ICD-9: 733.90 ICD-10: M85.80 04/15/2019 [...] Start Date Stop Date Status Fill Instructions levothyroxine 50 mcg tablet RxNorm: 910945 1 Tablet(s) Oral QD 06/0612/20/2019 Active Macrobid 100 mg capsule RxNorm: 342759 1 Capsule(s) Oral two ti mes a day 04/12/2019 04/19/2019 Inactive Toprol XL 25 mg tablet,extended release RxNorm: 730779 1 Tablet (s) PO QD 03/13/2019 09/08/2019 Active Generic For:TOPROL X L 25MG TAB SA 12/21/2015 9:08:41 AM Mobic 7.5 mg tablet RxNorm: 560771 1 Tablet(s) PO QOD opposite days as aleve 11/21/2018 11/21/2018 Inactive dicyclomine 10 mg capsule RxNorm: 074823 1 Capsule(s) P O TID as needed for abdominal pain 08/23/2018 No Stop Date Active alprazolam 0.25 mg tablet RxNorm: 465797 1 Tablet(s) PO Q8H as needed for anxiety 08/10/2018 11/20/2018 Inactive [AttnRPh: Saving apply/adjudicate RxGRP:SG20 RxBIN:[id number] RxPCN: ID#:[id number]] levothyroxine 25 mcg tablet RxNorm: 879463 1 Tablet(s) PO QD replaces 50mcg dose 08/06/2018 10/04/2018 Inactive levothyroxine 25 mcg tablet RxNorm: 331988 1 Tablet(s) PO QD replaces 50mcg dose 08/06/2018 08/05/2018 Inactive levothyroxine 50 mcg tablet RxNorm: 795128 1 Tablet(s) PO QD 201808/05/2018 Inactive Generic For:*SYNTHROID 0.05M G TAB 08/09/2016 8:59:33 AM Mobic 7.5 mg tablet RxNorm: 786008 1 Tablet(s) PO QOD opposite days as aleve 07/10/2018 09/07/2018 Inactive Mobic 7.5 mg tablet RxNorm: 090460 1 Tablet(s) PO QD 07/10/201807/09 Inactive Toprol XL 25 mg tablet,extended release RxNorm: 821569 1 Tablet (s) PO QD 06/18/2018 03/12/2019 Inactive Generic For:TOPROL X L 25MG TAB SA 12/21/2015 9:08:41 AM amoxicillin 500 mg capsule RxNorm: 370559 1 Capsule(s) PO TID 06/0406/10/2018 Inactive amoxicillin 500 mg capsule RxNorm: 784981 1 Capsule(s) PO TID 06/0406/03/2018 Inactive Skelaxin 800 mg tablet RxNorm: 406911 1 Tablet(s) PO BI D as needed for muscle spasm 05/31/2018 No Stop Date Active levothyroxine 50 mcg tablet RxNorm: 995489 1 Tablet(s) PO QD 201707/25/2018 Inactive Generic For:*SYNTHROID 0.05M G TAB 08/09/2016 8:59:33 AM Toprol XL 25 mg tablet,extended release RxNorm: 700019 1 Tablet (s) PO QD 12/19/2017 06/16/2018 Inactive Generic For:TOPROL X L 25MG TAB SA 12/21/2015 9:08:41 AM ranitidine 150 mg tablet RxNorm: 725209 1 Tablet(s) PO BID 12/12/19 18 05/31/2018 Inactive levothyroxine 50 mcg tablet RxNorm: 406655 1 Tablet(s) PO QD TAKE 1 TABLET BY MOUTH EVERY DAY 08/03/2017 02/02/2018 Inactive Generic For:*SYN THROID 0.05MG TAB 08/09/2016 8:59:33 AM Singulair 10 mg tablet RxNorm: 771623 1 Tablet(s) PO QHS 07/11/2017 0 09/10/2017 Inactive dicyclomine 10 mg capsule RxNorm: 884212 1 Capsule(s) P O TID as needed for abdominal pain 06/08/2017 08/22/2018 Inactive ranitidine 150 mg tablet RxNorm: 790329 1 Tablet(s) PO BID 06/08/19 18 09/05/2017 Inactive Toprol XL 25 mg tablet,extended release RxNorm: 289577 1 Tablet (s) PO QD 06/08/2017 12/19/2017 Inactive Generic For:TOPROL X L 25MG TAB SA 12/21/2015 9:08:41 AM betamethasone dipropionate 0.05 % topical cream RxNorm: 2389 20 1 Application TOP QHS 03/28/2017 10/03/2018 Inactive levothyroxine 50 mcg tablet RxNorm: 175915 1 Tablet(s) PO QD TAKE 1 TABLET BY MOUTH EVERY DAY 02/03/2017 08/01/2017 Inactive Generic For:*SYN THROID 0.05MG TAB 08/09/2016 8:59:33 AM ranitidine 150 mg tablet RxNorm: 657834 1 Tablet(s) PO BID 12/16/19 17 06/08/2017 Inactive Toprol XL 25 mg tablet,extended release RxNorm: 232361 1 Tablet (s) PO QD 12/15/2016 06/08/2017 Inactive Generic For:TOPROL X L 25MG TAB SA 12/21/2015 9:08:41 AM ranitidine 150 mg tablet RxNorm: 309342 1 Tablet(s) PO BID 11/12/19 17 12/10/2016 Inactive ranitidine 75 mg tablet RxNorm: 524991 1 Tablet(s) PO QD 10/21/2016 0 11/10/2016 Inactive ranitidine 75 mg tablet RxNorm: 668781 1 Tablet(s) PO QD 10/21/2016 0 10/20/2016 Inactive Tamiflu 75 mg capsule RxNorm: 160349 1 Capsule(s) PO BID 09/12/2016 0 09/16/2016 Inactive Promethegan 25 mg rectal suppository RxNorm: 440360 1 S uppository RTL Q4H as needed 09/12/2016 03/27/2017 Inactive levothyroxine 50 mcg tablet RxNorm: 610837 TAKE 1 TABLET BY GIDEON TH EVERY DAY 08/09/2016 02/03/2017 Inactive Generic For:*SYNTHRO ID 0.05MG TAB 08/09/2016 8:59:33 AM famotidine 40 mg tablet RxNorm: 229494 1 Tablet(s) PO BID 07/22/2016 10/20/2016 Inactive clotrimazole-betamethasone 1 %-0.05 % topical cream RxNorm: 048016 1 Application TOP BID to rash prn--was supposed to be cream not lotion 06/23/2016 Inactive famotidine 40 mg tablet RxNorm: 565175 1 Tablet(s) PO BID 06/23/2016 07/21/2016 Inactive Toprol XL 25 mg tablet,extended release RxNorm: 326419 1 Tablet (s) PO QD 06/14/2016 12/15/2016 Inactive Generic For:TOPROL X L 25MG TAB SA 12/21/2015 9:08:41 AM dicyclomine 10 mg capsule RxNorm: 771760 1 Capsule(s) P O TID as needed for abdominal pain 04/26/2016 06/07/2017 Inactive dicyclomine 10 mg capsule RxNorm: 325314 1 Capsule(s) P O TID as needed for abdominal pain 04/26/2016 06/08/2017 Inactive famotidine 40 mg tablet RxNorm: 174669 1 Tablet(s) PO QD 04/26/2016 0 06/22/2016 Inactive Protonix 40 mg tablet,delayed release RxNorm: 290870 1 Tablet(s ) PO QD 02/05/2016 03/27/2017 Inactive levothyroxine 50 mcg tablet RxNorm: 459814 1 Tablet(s) PO QD 201507/22/2016 Inactive Toprol XL 25 mg tablet,extended release RxNorm: 720481 TAKE ONE TABLET BY MOUTH EVERY DAY 12/21/2015 06/14/2016 Inactive Generic For:TOPR OL XL 25MG TAB SA 12/21/2015 9:08:41 AM Protonix 40 mg tablet,delayed release RxNorm: 440145 1 Tablet(s ) PO QD 07/27/2015 01/22/2016 Inactive levothyroxine 50 mcg tablet RxNorm: 728277 1 Tablet(s) PO QD 201501/17/2016 Inactive Phenergan 25 mg rectal suppository RxNorm: 495423 1 Sup pository RTL Q4H as needed for nausea and vomiting 07/20/2015 12/08/2015 Inactive Toprol XL 25 mg tablet,extended release RxNorm: 609544 1 Tablet (s) PO QD 06/15/2015 12/11/2015 Inactive clotrimazole-betamethasone 1 %-0.05 % topical cream RxNorm: 046459 1 Application TOP BID to rash prn--was supposed to be cream not lotion 05/20/2015 Inactive Protonix 40 mg tablet,delayed release RxNorm: 850921 1 Tablet(s) 1 Tablet(s) PO QD 04/23/2015 07/27/2015 Inactive levothyroxine 50 mcg tablet RxNorm: 312422 1 Tablet(s) PO QD 201407/21/2015 Inactive Lidoderm 5 % (700 mg/patch) adhesive patch RxNorm: 3522164 1-2 Unit Dose TOP QD on for 12hrs then off for 12hrs 04/23/2015 03/27/2016 Inactive Miralax 17 gram oral powder packet RxNorm: 179127 1/2 U nit Dose PO every other day 03/24/2015 03/29/2015 Inactive levothyroxine 50 mcg tablet RxNorm: 192090 1 Tablet(s) PO QD 201404/19/2015 Inactive dicyclomine 10 mg capsule RxNorm: 331221 1 Capsule(s) P O TID as needed for abdominal pain 02/19/2015 04/25/2016 Inactive dicyclomine 10 mg capsule RxNorm: 556698 1 Capsule(s) P O TID as needed for abdominal pain 12/25/2014 02/18/2015 Inactive Protonix 40 mg tablet,delayed release RxNorm: 767540 1 Tablet(s ) PO BID 12/25/2014 03/04/2015 Inactive levothyroxine 50 mcg tablet RxNorm: 895103 1 Tablet(s) PO QD 201402/18/2015 Inactive Flonase 50 mcg/actuation nasal spray,suspension RxNorm: 8963 23 2 Nicasio NASAL QHS 12/25/2014 10/03/2018 Inactive [SAVINGS FOR NON -COVERED DRUGS -- BIN:[id number], PCN: ASPROD1, Group: XXXXX, ID# [id number], Questions: . THIS IS NOT INSURANCE.] Toprol XL 25 mg tablet,extended release RxNorm: 856181 1 Tablet (s) PO QD 12/01/2014 05/29/2015 Inactive dicyclomine 10 mg capsule RxNorm: 699465 1 Capsule(s) P O TID as needed for abdominal pain 12/01/2014 12/24/2014 Inactive levothyroxine 75 mcg tablet RxNorm: 565282 1 Tablet(s) PO QD 201412/24/2014 Inactive [AttnRPh: Saving apply/adjud icate RxGRP:SG20 RxBIN:[id number] RxPCN: ID#:[id number]] Protonix 40 mg tablet,delayed release RxNorm: 885064 1 Tablet(s) BID 1 Tablet(s) PO QD 11/04/2014 12/24/2014 Inactive dicyclomine 10 mg capsule RxNorm: 000014 1 Capsule(s) P O TID as needed for abdominal pain 11/04/2014 11/30/2014 Inactive Protonix 40 mg tablet,delayed release RxNorm: 145053 Ta blet(s) 1 Tablet(s) PO QD 10/14/2014 11/03/2014 Inactive Flonase 50 mcg/actuation nasal spray,suspension RxNorm: 8963 23 2 Nicasio NASAL QHS 09/01/2014 12/24/2014 Inactive [SAVINGS FOR NON -COVERED DRUGS -- BIN:[id number], PCN: ASPROD1, Group: XXXXX, ID# [id number], Questions: . THIS IS NOT INSURANCE.] Toprol XL 25 mg tablet,extended release RxNorm: 514329 Tablet(s) 1/2 Tablet(s) PO QD 08/28/2014 11/25/2014 Inactive [SAVINGS FOR UNI NSURED PATIENTS -- BIN:063319, PCN: ASPROD1, Group: [id number], ID# [id number], Process claim through [employer], for questions: . THIS IS NOT INSURANCE.] estradiol 0.01% (0.1 mg/gram) vaginal cream RxNorm: 477262 1 Gram(s) VAG Insert vaginally at bedtime, Monday, Monday and Monday06/26/2014 5 Inactive Toprol XL 25 mg tablet,extended release RxNorm: 551040 1/2 Tabl et(s) PO QD 06/06/2014 08/27/2014 Inactive [SAVINGS FOR UNINSUR ED PATIENTS -- BIN:916349, PCN: ASPROD1, Group: [id number], ID# [id number], Process claim through [employer], for questions: . THIS IS NOT INSURANCE.] estradiol 0.5 mg tablet RxNorm: 303000 1 Tablet(s) VAG Place one tablet in the vagina at bedtime three times a week 06/02/2014 06/25/2014 Inactive Estring 2 mg vaginal RxNorm: 061030 VAG Insert vaginall y and remove after 90 days 05/27/2014 06/01/2014 Inactive Toprol XL 25 mg tablet,extended release RxNorm: 753912 1/2 Tabl et(s) PO QD 04/15/2014 04/14/2014 Inactive Protonix 40 mg tablet,delayed release RxNorm: 786889 1 Tablet(s ) PO QD 04/15/2014 10/14/2014 Inactive estradiol 0.5 mg tablet RxNorm: 628138 1 Tablet(s) VAG Place one tablet in the vagina at bedtime twice a week 04/15/2014 06/01/2014 Inactive Toprol XL 25 mg tablet,extended release RxNorm: 857970 1/2 Tabl et(s) PO QD 04/15/2014 06/05/2014 Inactive [SAVINGS FOR UNINSUR ED PATIENTS -- BIN:[id number], PCN: ASPROD1, Group: [id number], ID# [id number], Process claim through [employer], for questions: . THIS IS NOT INSURANCE.] levothyroxine 75 mcg tablet RxNorm: 222185 1 Tablet(s) PO QD 201304/07/2014 Inactive [AttnRPh: Saving apply/adjud icate RxGRP:SG20 RxBIN:[id number] RxPCN: ID#:[id number]] Flonase 50 mcg/actuation nasal spray,suspension RxNorm: 8963 23 1 Nicasio NASAL BID 04/08/2014 08/31/2014 Inactive levothyroxine 75 mcg tablet RxNorm: 321686 1 Tablet(s) PO QD 201310/04/2014 Inactive [AttnRPh: Saving apply/adjud icate RxGRP:SG20 RxBIN:[id number] RxPCN:HT ID#:[id number]] estradiol 0.5 mg tablet RxNorm: 331105 Tablet(s) PO Debra ce one tablet in the vagina at bedtime one time weekly 04/08/2014 04/07/2014 Inactive levothyroxine 75 mcg tablet RxNorm: 948866 1 Tablet(s) PO QD 201304/07/2014 Inactive [AttnRPh: Saving apply/adjud icate RxGRP:SG20 RxBIN:[id number] RxPCN: ID#:[id number]] Skelaxin 800 mg tablet RxNorm: 464105 1 Tablet(s) PO TI D as needed for muscle spasm 03/05/2014 11/03/2014 Inactive alprazolam 0.25 mg tablet RxNorm: 103273 1 Tablet(s) PO Q8H as needed for anxiety 02/27/2014 08/05/2018 Inactive [AttnRPh: Saving apply/adjudicate RxGRP:SG20 RxBIN:[id number] RxPCN: ID#:[id number]] Synthroid 75 mcg tablet RxNorm: 435849 1 Tablet(s) PO QD 11/29/2013 0 11/03/2014 Inactive levothyroxine 75 mcg tablet RxNorm: 918219 1 Tablet(s) PO QD -N eed labs 11/27/2013 03/19/2014 Inactive [AttnRPh: Saving jessica ly/adjudicate RxGRP:SG20 RxBIN:[id number] RxPCN: ID#:[id number]] Protonix 40 mg tablet,delayed release RxNorm: 292304 1 Tablet(s ) PO QD 10/07/2013 04/04/2014 Inactive Synthroid 75 mcg tablet RxNorm: 296347 1 Tablet(s) PO QD 09/02/2013 0 11/28/2013 Inactive Zithromax 500 mg tablet RxNorm: 084486 1 Tablet(s) PO QD 07/29/2013 0 08/04/2013 Inactive prednisone 20 mg tablet RxNorm: 396516 1 Tablet(s) PO QD 07/29/2013 0 08/02/2013 Inactive Synthroid 75 mcg tablet RxNorm: 671632 1 Tablet(s) PO Q D Patient wants it put on hold 05/14/2013 09/02/2013 Inactive Synthroid 75 mcg tablet RxNorm: 075018 1 Tablet(s) PO QD 05/01/2013 1 07/14/2012 Inactive Flagyl 500 mg tablet RxNorm: 998102 1 Tablet(s) PO BID 03/20/2013 Inactive Cipro 500 mg tablet RxNorm: 028483 1 Tablet(s) PO QD 03/20/201304/02 Inactive levothyroxine 75 mcg tablet RxNorm: 846772 1 Tablet(s) PO QD 201205/03/2013 Inactive Septra DS 800 mg-160 mg tablet RxNorm: 176478 1 Tablet(s) PO BI D antibiotic 11/05/2012 11/09/2012 Inactive Bystolic 5 mg tablet RxNorm: 082553 1 Tablet(s) PO QD 10/10/201208/2018 Inactive Bystolic 5 mg tablet RxNorm: 516706 1 Tablet(s) PO QD 10/10/201202/2013 Inactive Protonix 40 mg tablet,delayed release RxNorm: 319930 1 Tablet(s ) PO QD 09/24/2012 09/18/2013 Inactive Synthroid 75 mcg tablet RxNorm: 046107 1 Tablet(s) PO QD 08/01/2012 0 09/23/2012 Inactive Synthroid 75 mcg tablet RxNorm: 845980 1 Tablet(s) PO QD Brand name only 07/03/2012 07/31/2012 Inactive Skelaxin 800 mg tablet RxNorm: 050085 1 Tablet(s) PO TID prn spasm 05/02/2012 03/04/2014 Inactive Zithromax Z-Leonel 250 mg tablet RxNorm: 957179 Tablet(s) PO As Di rected 04/12/2012 05/01/2012 Inactive levothyroxine 75 mcg tablet RxNorm: 349183 1 Tablet(s) PO QD 201108/05/2018 Inactive levothyroxine 75 mcg tablet RxNorm: 305554 1 Tablet(s) PO QD 201107/01/2012 Inactive Ultram 50 mg tablet RxNorm: 712602 1-2 Tablet(s) PO TID as need ed for migraine 04/03/2012 11/03/2014 Inactive Vimovo 500 mg-20 mg tablets,immediate & delayed release RxNo rm: 070070 1 Tablet(s) PO BID for pain 03/28/2012 07/25/2012 Inactive levothyroxine 75 mcg tablet RxNorm: 946507 1 Tablet(s) PO QD 201104/02/2012 Inactive levothyroxine 50 mcg tablet RxNorm: 844824 1 Tablet(s) PO QD 201109/23/2012 Inactive levothyroxine 50 mcg tablet RxNorm: 280588 1 Tablet(s) PO QD 201101/31/2012 Inactive Septra DS 800 mg-160 mg Tab RxNorm: 725464 1 Tablet(s) PO BID 11/2111/26/2011 Inactive mupirocin 2 % Ointment RxNorm: 234268 1 Application TOP TID 012 11/28/2011 Inactive Protonix 40 mg tablet,delayed release RxNorm: 516872 1 Tablet(s ) PO QD 09/13/2011 09/24/2012 Inactive hydrocodone-acetaminophen 5 mg-500 mg Tab RxNorm: 732914 1 Tablet(s) PO Q4-6H as needed for pain 07/13/2011 11/21/2011 Inactive Skelaxin 800 mg tablet RxNorm: 896698 1 Tablet(s) PO TID prn spasm 06/30/2011 11/21/2011 Inactive Skelaxin 800 mg Tab RxNorm: 007812 1 Tablet(s) PO TID prn spasm No Stop Date Active potassium chloride ER 10 mEq Cap RxNorm: 5835129 2 Capsule(s) PO QD 12/30/2010 01/30/2011 Inactive potassium chloride ER 10 mEq Cap RxNorm: 2101178 1 Capsule(s) PO QD 12/29/2010 12/29/2010 Inactive Take 2 tablets by mouth on M , Monday, Monday and 1 tablet by mouth on Monday, , Monday and Monday Premarin 0.9 mg Tab RxNorm: 297863 1 Tablet(s) PO QD 12/09/201001/07 Inactive potassium chloride ER 10 mEq Cap RxNorm: 5400463 1 Capsule(s) PO QD 12/07/2010 No Stop Date Active Take 2 tablets by mouth on M on, Monday, Monday and 1 tablet by mouth on Monday, , Monday and Monday promethazine 12.5 mg Rectal Suppository RxNorm: 838942 1 Applic ation RTL Q6-8H 12/07/2010 12/16/2010 Inactive prn nausea and vomit ing potassium chloride ER 10 mEq Cap RxNorm: 3973414 1 Capsule(s) PO QD 12/03/2010 No Stop Date Active MWF take 2 tablets daily. T nighat one tablet daily on other days. Protonix 40 mg Tab RxNorm: 253733 1 Tablet(s) PO QD 09/27/20102011 Inactive cefdinir 300 mg Cap RxNorm: 669954 2 Capsule(s) PO QD 08/05/201007/2010 Inactive cefdinir 300 mg Cap RxNorm: 660348 2 Capsule(s) PO QD 08/05/201008/03 Inactive Premarin 1.25 mg Tab RxNorm: 160046 1 Tablet(s) PO QD 06/14/201012/2010 Inactive lisinopril-hydrochlorothiazide 10 mg-12.5 mg Tab RxNorm: 383157 1 Tablet(s) PO 06/07/2010 11/04/2010 Inactive alprazolam 0.25 mg Tab RxNorm: 613180 1 Tablet(s) PO TI D written script provided to patient. 05/24/2010 06/22/2010 Inactive Treximet 85 mg-500 mg Tab RxNorm: 574559 1 Tablet(s) PO PRN 010 09/23/2012 Inactive lisinopril-hydrochlorothiazide 20 mg-12.5 mg Tab RxNorm: 197 886 1 Tablet(s) PO QD 05/12/2010 11/04/2010 Inactive alprazolam 0.25 mg Tab RxNorm: 759325 1 Tablet(s) PO TI D written script provided to patient. 04/19/2010 05/23/2010 Inactive Macrobid 100 mg Cap RxNorm: 1321899 1 Capsule(s) PO BID 04/08/2010 Inactive Premarin 1.25 mg Tab RxNorm: 023960 1 Tablet(s) PO QD 03/22/201002/2011 Inactive Amitriptyline 10 mg Tab RxNorm: 266676 1 Tablet(s) PO QD 03/22/2010 0 06/19/2010 Inactive Protonix 40 mg Tab RxNorm: 346224 1 Tablet(s) PO QD 03/22/20102010 Inactive alprazolam 0.25 mg Tab RxNorm: 863245 1 Tablet(s) PO TID 03/10/201006/08/2009 Inactive Macrobid 100 mg Cap RxNorm: 6975271 1 Capsule(s) PO QD 03/09/2010 Inactive Bystolic 5 mg Tab RxNorm: 432723 1 Tablet(s) PO QD Fi ll at 30 if insurance will not accept 03/01/2010 11/04/2010 Inactive Protonix 40 mg Tab RxNorm: 969451 1 Tablet(s) PO QD 11/23/20092009 Inactive Premarin 1.25 mg Tab RxNorm: 215734 1 Tablet(s) PO QD 11/23/200912/03 Inactive Bentyl 10 mg Cap RxNorm: 764355 1 Capsule(s) PO QID 11/23/20092010 Inactive Elavil 10 mg Tab RxNorm: 592682 1 Tablet(s) PO QPM 11/19/2009 011 Inactive Cranberry Concentrate capsule RxNorm: 1 Capsule(s) PO QD No Start Date Active Estrace 0.01% (0.1 mg/gram) vaginal cream RxNorm: 609137 1 Application VAG weekly No Start Date Active Xyzal 5 mg tablet RxNorm: 493977 1 Tablet(s) PO QD No Start Date Active Protonix 40 mg tablet,delayed release RxNorm: 333558 1 Tablet(s ) PO QD No Start Date Active fluticasone propionate 50 mcg/actuation nasal spray,suspensi on RxNorm: 4478315 2 Nicasio NASAL QD No Start Date Active Vitamin D3 2,000 unit tablet RxNorm: 761771 1 Tablet(s) PO QD No Star t Date Active BIOFREEZE Top RxNorm: Topical No Start Date Active multivitamin chewable tablet RxNorm: 1 Tablet(s) PO QD No Start Date Active Estring 2 mg vaginal RxNorm: 530863 VAG Insert vaginall y and remove after 90 days No Start Date 05/26/2014 Inactive Premarin 0.625 mg tablet RxNorm: 521510 1 Tablet(s) PO QD No Start Date 04/07/2014 Inactive Miralax 17 gram/dose oral powder RxNorm: 608692 1 capful PO QD No S tart Date 08/05/2018 Inactive diazepam 5 mg tablet RxNorm: 969509 2 Tablet(s) PO before MRI No St art Date 10/03/2018 Inactive Protonix 40 mg tablet,delayed release RxNorm: 433779 1 Tablet(s ) PO QD No Start Date 07/26/2015 Inactive B12 sublingual RxNorm: 93543 sublingual No Start Date 03/27/2017 Inact adrian Treximet 85 mg-500 mg Tab RxNorm: 913347 Tablet(s) PO PRN No Start Date 05/11/2010 Inactive Gemma 180 mg Tab RxNorm: 041577 1 Tablet(s) PO QD No Start Date Inactive Gemma Allergy 180 mg tablet RxNorm: 593456 1 Tablet(s) PO QD No S tart Date 08/31/2014 Inactive estradiol 0.01% (0.1 mg/gram) vaginal cream RxNorm: 942472 1 Gram(s) VAG Insert vaginally at bedtime, Monday, Monday and Monday No Start Date 5 Inactive Tylenol Ex Str Arthritis Pain 500 mg tablet RxNorm: 871237 2 Ta blet(s) PO TID No Start Date 08/05/2018 Inactive Toprol XL 25 mg tablet,extended release RxNorm: 944402 1 Tablet (s) PO QD No Start Date 11/30/2014 Inactive Ultram 50 mg tablet RxNorm: 442249 1-2 Tablet(s) PO TID as need ed for migraine No Start Date 04/02/2012 Inactive Premarin 0.9 mg Tab RxNorm: 267350 1 Tablet(s) PO QD No Start Date Inactive Bystolic 5 mg Tab RxNorm: 225216 1/2 Tablet(s) PO QD No Start Date Inactive Ondansetron HCl 4 mg Tab RxNorm: 740259 1 Tablet(s) PO TID or every 8hrs as needed for nausea No Start Date 11/21/2011 Inactive Protonix 40 mg tablet,delayed release RxNorm: 515163 1 Tablet(s ) PO BID No Start Date 12/24/2014 Inactive potassium chloride ER 10 mEq Cap RxNorm: 5480449 1 Capsule(s) PO QD No Start Date 12/02/2010 Inactive Miralax 17 gram/dose oral powder RxNorm: 444425 1 capful PO QD No S tart Date 03/29/2015 Inactive levothyroxine 75 mcg tablet RxNorm: 930916 1 Tablet(s) PO QD si x days a week No Start Date 12/24/2014 Inactive Cenestin 1.25 mg Tab RxNorm: 707857 1 Tablet(s) PO QD No Start Date 0 01/03/2010 Inactive calcium-vitamin D3 500 mg oral wafer RxNorm: 1 Tablet(s) PO QD No Start Date 12/08/2015 Inactive Vimovo 500 mg-20 mg tablet,immediate & delayed release RxNor m: 100881 1 Tablet(s) PO QD No Start Date 11/03/2014 Inactive alprazolam 0.25 mg tablet RxNorm: 033813 1 Tablet(s) PO Q8H as needed for anxiety/stress No Start Date 12/24/2014 Inactive levothyroxine 50 mcg tablet RxNorm: 171608 1 Tablet(s) PO QD No Sta rt Date 06/23/2019 Inactive betamethasone dipropionate 0.05 % topical cream RxNorm: 2389 20 1 Application TOP QHS No Start Date 03/27/2017 Inactive meloxicam 15 mg tablet RxNorm: 264926 1 Tablet(s) PO QD as needed N o Start Date 04/11/2019 Inactive cetirizine 10 mg capsule RxNorm: 7330173 1 Capsule(s) PO QD No Star t Date 09/10/2017 Inactive Skelaxin 800 mg Tab RxNorm: 386127 Tablet(s) PO PRN No Start Date Inactive Zithromax Z-Leonel 250 mg tablet RxNorm: 727785 Tablet(s) PO As Di rected No Start Date 04/11/2012 Inactive Zithromax Z-Leonel 250 mg Tab RxNorm: 259197 Tablet(s) PO as direc sheridan No Start Date 11/15/2010 Inactive Gemma 180 mg tablet RxNorm: 563218 1 Tablet(s) PO QD No Start Date 12/24/2014 Inactive Anusol-HC 2.5 % Rectal Cream RxNorm: 177885 Application RTL BID for 1wk No Start Date 12/19/2011 Inactive metoprolol succinate ER 25 mg 24 hr Tab RxNorm: 596533 1/2 Tabl et(s) PO QD No Start Date 10/03/2012 Inactive clotrimazole-betamethasone 1 %-0.05 % Lotion RxNorm: 644015 Application TOP BID to rash No Start Date 05/15/2011 Inactive ranitidine 150 mg tablet RxNorm: 022444 1 Tablet(s) PO QD No Start Date 12/06/2018 Inactive ranitidine 150 mg tablet RxNorm: 345466 1 Tablet(s) PO BID No Start Date 11/10/2016 Inactive promethazine 12.5 mg Rectal Suppository RxNorm: 476303 1 Applic ation RTL Q6-8H No Start Date 12/06/2010 Inactive Maxalt-ANALYTICAL MANAGER 10 mg disintegrating tablet RxNorm: 518505 1 Tablet(s) PO at headache onset--may repeat in 2hrs if needed No Start Date 12/24/2014 Inactive Benadryl 25 mg capsule RxNorm: 8473651 Capsule(s) PO as needed No S tart Date 12/24/2014 Inactive Cranberry Concentrate 500 mg capsule RxNorm: 769222 1 Capsule(s ) PO QD No Start Date 09/10/2017 Inactive Mobic 15 mg tablet RxNorm: 931271 1 Tablet(s) PO on opposite da ys of Aleve No Start Date 11/20/2018 Inactive Bystolic 5 mg tablet RxNorm: 720063 1 Tablet(s) PO QD No Start Date 0 10/09/2012 Inactive Premarin 1.25 mg Tab RxNorm: 802555 1 Tablet(s) PO QD No Start Date 1 Inactive clotrimazole-betamethasone 1 %-0.05 % topical cream RxNorm: 412361 Application TOP BID to rash prn--was supposed to be cream not lotion No Start Date 12/19/2011 Inactive azithromycin 250 mg Tab RxNorm: 730233 2 Tablet(s) PO Q D take 2 tablets (500 mg) by oral route once daily for 1 day then 1 tablet (250 mg) by oral route once daily for 4 days No Start Date 06/06/2010 Inactive hydrocodone-acetaminophen 5 mg-500 mg Tab RxNorm: 019055 1 Tablet(s) PO Q4-6H as needed for pain No Start Date 07/12/2011 Inactive Levbid 0.375 mg 12 hr Tab RxNorm: 1756280 1 Tablet(s) PO BID as needed for stomach cramping No Start Date 11/21/2011 Inactive Phenergan 25 mg rectal suppository RxNorm: 288933 1 Sup pository RTL Q4H as needed for nausea and vomiting No Start Date 07/19/2015 Inactive baclofen 10 mg tablet RxNorm: 781079 1 Tablet(s) PO QHS No Start Da te 11/03/2014 Inactive loratadine 10 mg tablet RxNorm: 134930 1 Tablet(s) PO QD No Start D ate 10/03/2018 Inactive famotidine 40 mg tablet RxNorm: 339378 1 Tablet(s) PO BID No Start Date 06/22/2016 Inactive Zithromax Z-Leonel 250 mg Tab RxNorm: 545182 Tablet(s) PO as direc sheridan No Start Date 11/15/2010 Inactive Singulair 10 mg tablet RxNorm: 272599 1 Tablet(s) PO QHS No Start D ate 07/10/2017 Inactive Premarin 0.625 mg/g Vaginal Cream RxNorm: 135514 1 Gram (s) VAG QHS 2-3 times weekly No Start Date 01/05/2011 Inactive Alprazolam 0.25 mg Tab RxNorm: 368345 1 Tablet(s) PO TID No Start D ate 03/09/2010 Inactive Claritin 10 mg tablet RxNorm: 816296 1 Tablet(s) PO QD No Start Date [...] Result Date S ervice Location GFR CALC 8943852 GFR AA >60 ML/MIN 01/14/2011 Unknown GFR CALC 1533698 GFR NON-AA >60 ML/MIN 01/14/2011 Unknown COMPREHENSIVE METABOLIC 11894 AST 15 U/L 2010 Unknown COMPREHENSIVE METABOLIC 89878 ALT 17 IU/L 2010 Unknown COMPREHENSIVE METABOLIC 71608 BUN 12 MG/DL 2010 Unknown COMPREHENSIVE METABOLIC 09496 ALBUMIN 4.0 GM/DL 2010 Unknown COMPREHENSIVE METABOLIC 79757 CHLORIDE 101 MMOL/L 01/14 Unknown COMPREHENSIVE METABOLIC 67277 BILI TOT 0.3 MG/DL 2010 Unknown COMPREHENSIVE METABOLIC 32756 ALK PHOS 53 U/L 2010 Unknown COMPREHENSIVE METABOLIC 46893 SODIUM 136 MMOL/L 01/14 Unknown COMPREHENSIVE METABOLIC 61309 CREATININE 0.60 MG/DL 01/03 Unknown COMPREHENSIVE METABOLIC 80176 CALCIUM 9.3 MG/DL 2010 Unknown COMPREHENSIVE METABOLIC 19586 POTASSIUM 4.1 MMOL/L 01/14 Unknown COMPREHENSIVE METABOLIC 61581 PROT TOT 7.0 GM/DL 2010 Unknown COMPREHENSIVE METABOLIC 46346 Glucose 92 MG/DL 2010 Unknown COMPREHENSIVE METABOLIC 29327 BICARB 27 MMOL/L 2010 Unknown COMPREHENSIVE METABOLIC 69986 ANION GAP 8 MEQ/L 2010 Unknown ERYTHROCYTE SEDIMENTATION RATE 47709 ESR 39 MM/HR 01/05/2011 Unknown COMPREHENSIVE METABOLIC 82802 AST 16 U/L 2010 Unknown COMPREHENSIVE METABOLIC 82544 ALT 19 U/L 2010 Unknown COMPREHENSIVE METABOLIC 86066 BUN 15 MG/DL 2010 Unknown COMPREHENSIVE METABOLIC 71743 ALBUMIN 3.8 GM/DL 2010 Unknown COMPREHENSIVE METABOLIC 23524 CHLORIDE 101 MMOL/L 01/05 Unknown COMPREHENSIVE METABOLIC 77891 BILI TOT 0.3 MG/DL 2010 Unknown COMPREHENSIVE METABOLIC 63422 ALK PHOS 55 U/L 2010 Unknown COMPREHENSIVE METABOLIC 42774 SODIUM 139 MMOL/L 01/05 Unknown COMPREHENSIVE METABOLIC 17754 CREATININE 0.59 MG/DL 08/2010 Unknown COMPREHENSIVE METABOLIC 72852 CALCIUM 8.9 MG/DL 2010 Unknown COMPREHENSIVE METABOLIC 49918 POTASSIUM 3.8 MMOL/L 01/05 Unknown COMPREHENSIVE METABOLIC 18613 PROT TOT 6.7 GM/DL 2010 Unknown COMPREHENSIVE METABOLIC 02167 Glucose 121 MG/DL 2010 Unknown COMPREHENSIVE METABOLIC 37300 BICARB 28 MMOL/L 2010 Unknown COMPREHENSIVE METABOLIC 02626 ANION GAP 10 MMOL/L 2010 Unknown GFR CALC 7693219 GFR AA >60 ML/MIN 01/05/2011 Unknown GFR CALC 6831549 GFR NON-AA >60 ML/MIN 01/05/2011 Unknown COMPLETE BLOOD COUNT 40379 WBC 8.7 10e9/L 01/06/20 11 Unknown COMPLETE BLOOD COUNT 19116 RBC 4.78 10e12/L 2010 Unknown COMPLETE BLOOD COUNT 70979 HGB 13.3 g/dL 1 Unknown COMPLETE BLOOD COUNT 30616 HCT DET 40.6 % 1 Unknown COMPLETE BLOOD COUNT 45722 MCV 84.9 fL 1 Unknown COMPLETE BLOOD COUNT 08383 MCH 27.8 pg 1 Unknown COMPLETE BLOOD COUNT 53352 MCHC 32.8 g/dL 1 Unknown COMPLETE BLOOD COUNT 16909 PLT 273 10e9/L 01/06/20 11 Unknown COMPLETE BLOOD COUNT 15623 MPV 9.8 fL 1 Unknown COMPLETE BLOOD COUNT 44613 AMANDA % 65.9 % 1 Unknown COMPLETE BLOOD COUNT 42665 LY % 24.5 % 1 Unknown COMPLETE BLOOD COUNT 61389 MON % 6.9 % 1 Unknown COMPLETE BLOOD COUNT 10500 EOS % 2.1 % 1 Unknown COMPLETE BLOOD COUNT 78048 BASO % 0.6 % 1 Unknown COMPLETE BLOOD COUNT 43344 RDW 14.7 % 1 Unknown COMPLETE BLOOD COUNT 12478 ABS AMANDA 5.73 10e9/L 011 Unknown COMPLETE BLOOD COUNT 76850 ABS LYMPH 2.13 10e9/L 011 Unknown COMPLETE BLOOD COUNT 83383 ABS MONO 0.60 10e9/L 011 Unknown COMPLETE BLOOD COUNT 49479 ABS EOS 0.18 10e9/L 011 Unknown COMPLETE BLOOD COUNT 58433 ABS BASO 0.05 10e9/L 011 Unknown COMPLETE BLOOD COUNT 00809 RDW-SD 44.7 fL 1 Unknown NO UA [id number] NO UA CANCELED 07/08/2010 Unknown Procedures Procedure Codes Date URINALYSIS NONAUTO W/O SCOPE CPT-4: 49621 04/12/2019 URINE CULTURE/ COLONY COUNT CPT-4: 66109 04/12/2019 URINE CULTURE/ COLONY COUNT CPT-4: 50716 01/14/2019 URINALYSIS NONAUTO W/O SCOPE CPT-4: 05092 01/14/2019 INITIAL PREVENTIVE EXAM CPT-4: G0402 11/21/2018 URINALYSIS NONAUTO W/O SCOPE CPT-4: 87285 11/01/2018 URINE CULTURE/ COLONY COUNT CPT-4: 19810 11/01/2018 URINE CULTURE/ COLONY COUNT CPT-4: 73658 06/13/2018 URINALYSIS NONAUTO W/O SCOPE CPT-4: 86036 05/31/2018 URINE CULTURE/ COLONY COUNT CPT-4: 14032 05/31/2018 IIV4 VACCINE 3 YRS+ IM AND UP CPT-4: 43281 03/22/2018 IMMUNIZATION ADMIN CPT-4: 97097 03/22/2018 TDAP VACCINE 7 YRS/> IM CPT-4: 93815 12/28/2017 IMMUNIZATION ADMIN CPT-4: 64077 12/28/2017 SHINGRIX HZV VACC RECOMBINANT IM CPT-4: 59962 018 IMMUNIZATION ADMIN CPT-4: 03225 10/04/2017 IIV4 VACCINE 3 YRS+ IM AND UP CPT-4: 80218 03/28/2017 IMMUNIZATION ADMIN CPT-4: 96748 03/28/2017 INFLUENZA ASSAY W/OPTIC CPT-4: 14186 09/12/2016 FLU VACCINE 3 YRS & > IM UP 64 CPT-4: 76035 6 IMMUNIZATION ADMIN CPT-4: 69897 04/22/2016 OCCULT BLOOD FECES CPT-4: 45664 01/04/2016 THER/PROPH/DIAG INJ SC/IM CPT-4: 80106 07/20/2015 PROMETHAZINE HCL INJECTION CPT-4: J2550 07/20/2015 FLU VACCINE 3 YRS & > IM UP 64 CPT-4: 94158 5 IMMUNIZATION ADMIN CPT-4: 09879 03/09/2015 URINALYSIS NONAUTO W/O SCOPE CPT-4: 86938 07/10/2014 URINE CULTURE/ COLONY COUNT CPT-4: 14649 07/10/2014 URINE CULTURE/ COLONY COUNT CPT-4: 91768 07/14/2011 URINALYSIS NONAUTO W/O SCOPE CPT-4: 76573 07/14/2011 FLU VACCINE 3 YRS & > IM UP 64 CPT-4: 02844 2 IMMUNIZATION ADMIN CPT-4: 31494 06/28/2011 URINALYSIS NONAUTO W/O SCOPE CPT-4: 35198 03/23/2011 URINE CULTURE/ COLONY COUNT CPT-4: 62269 03/23/2011 ROUTINE VENIPUNCTURE CPT-4: 06521 01/14/2011 COMPREHEN METABOLIC PANEL CPT-4: 46966 01/14/2011 ROUTINE VENIPUNCTURE CPT-4: 78956 01/05/2011 COMPLETE CBC W/AUTO DIFF WBC CPT-4: 93880 01/05/2011 RBC SED RATE AUTOMATED CPT-4: 40119 01/05/2011 COMPREHEN METABOLIC PANEL CPT-4: 32696 01/05/2011 URINALYSIS NONAUTO W/O SCOPE CPT-4: 66964 11/16/2010 URINE CULTURE/ COLONY COUNT CPT-4: 55023 11/16/2010 DRAIN/INJECT JOINT/BURSA CPT-4: 06757 11/04/2010 TRIAMCINOLONE ACET INJ NOS CPT-4: J3301 11/04/2010 METHYLPREDNISOLONE 80 MG INJ CPT-4: J1040 11/04/2010 URINALYSIS NONAUTO W/O SCOPE CPT-4: 74961 07/05/2010 URINE CULTURE/ COLONY COUNT CPT-4: 17084 07/05/2010 URINALYSIS NONAUTO W/O SCOPE CPT-4: 42578 06/28/2010 URINE CULTURE/ COLONY COUNT CPT-4: 17429 06/28/2010 URINALYSIS NONAUTO W/O SCOPE CPT-4: 05172 06/14/2010 URINE CULTURE/ COLONY COUNT CPT-4: 56081 06/14/2010 URINE CULTURE/ COLONY COUNT CPT-4: 79402 04/19/2010 OCCULT BLOOD FECES CPT-4: 61111 04/12/2010 URINALYSIS NONAUTO W/O SCOPE CPT-4: 39701 04/08/2010 URINE CULTURE/ COLONY COUNT CPT-4: 39295 04/08/2010 ASSAY, GLUCOSE, BLOOD QUANT CPT-4: 47121 03/09/2010 URINALYSIS NONAUTO W/O SCOPE CPT-4: 62001 03/09/2010 FLU VACCINE 3 YRS & > IM UP 64 CPT-4: 28133 0 IMMUNIZATION ADMIN CPT-4: 48669 03/09/2010 URINALYSIS NONAUTO W/O SCOPE CPT-4: 36502 09/29/2009 URINALYSIS NONAUTO W/O SCOPE CPT-4: 61991 08/12/2009 Vital Signs Date Vital 04/12/2019 Blood Pressure 1: 130/84 Code: 8480-6 [...] 1: 130/70 Code: 8480-6 BMI: 29.6 Code: 43266-5 Heart Rate 1: 76 bpm Height: 5'2" [...] 1: 126/62 Code: 8480-6 BMI: 29.6 Code: 41076-0 Heart Rate 1: 88 bpm Height: 5'3" Respiratory Rate: 20 bpm Temperature: 36 .8 (C) / 98.3 (F) Weight: 167 lbs 05/31/2018 Blood Pressure 1: 140/80 Code: 8480-6 Heart Rate 1: 74 bpm Respiratory Rate: 16 bpm SpO2: 97% Temperature: 36.3 (C) / 97.3 (F) We ight: 165 lbs 02/06/2018 Blood Pressure 1: 124/78 Code: 8480-6 BMI: 29.8 Code: 68933-3 Heart Rate 1: 84 bpm Height: 5'3" Respiratory Rate: 20 bpm SpO2: 97% Tempera ture: 36.6 (C) / 97.8 (F) Weight: 168 lbs 12/18/2017 Blood Pressure 1: 116/78 Code: 8480-6 BMI: 29.6 Code: 97080-0 Heart Rate 1: 88 bpm Height: 5'3" Respiratory Rate: 20 bpm Temperature: 36 .6 (C) / 97.9 (F) Weight: 167 lbs 12/11/2017 Blood Pressure 1: 122/76 Code: 8480-6 He art Rate 1: 78 bpm 09/11/2017 Blood Pressure 1: 126/82 Code: 8480-6 BMI: 29.1 Code: 47932-5 Heart Rate 1: 68 bpm Height: 5'3" Respiratory Rate: 20 bpm SpO2: 96% Tempera ture: 36.6 (C) / 97.9 (F) Weight: 164 lbs 03/28/2017 Blood Pressure 1: 114/64 Code: 8480-6 BMI: 27.8 Code: 24509-3 Heart Rate 1: 76 bpm Height: 5'3" Respiratory Rate: 20 bpm SpO2: 98% Tempera ture: 36.4 (C) / 97.6 (F) Weight: 157 lbs 09/12/2016 Blood Pressure 1: 126/70 Code: 8480-6 BMI: 29.9 Code: 75928-2 Heart Rate 1: 92 bpm Height: 5'3" Respiratory Rate: 20 bpm SpO2: 97% Tempera ture: 37.0 (C) / 98.6 (F) Weight: 168 lbs 9 oz 07/28/2016 Blood Pressure 1: 128/74 Code: 8480-6 Heart Rate 1: 92 bpm Respiratory Rate: 24 bpm SpO2: 96% Temperature: 36.4 (C) / 97.6 (F) We ight: 168 lbs 04/26/2016 Blood Pressure 1: 116/ Code: 8480-6 BMI: 29.9 Code: 50699-9 Heart Rate 1: 92 bpm Height: 5'3" Respiratory Rate: 20 bpm Temperature: 36 .9 (C) / 98.4 (F) Weight: 169 lbs 12/09/2015 Blood Pressure 1: 116/72 Code: 8480-6 BMI: 31.7 Code: 93835-3 Heart Rate 1: 80 bpm Height: 5'3" Respiratory Rate: 20 bpm Temperature: 36 .6 (C) / 97.9 (F) Weight: 179 lbs 09/10/2015 Blood Pressure 1: 122/78 Code: 8480-6 BMI: 32.2 Code: 94284-5 Heart Rate 1: 88 bpm Height: 5'3" Respiratory Rate: 20 bpm Temperature: 37 .3 (C) / 99.1 (F) Weight: 182 lbs 04/23/2015 Blood Pressure 1: 126/70 Code: 8480-6 BMI: 31.2 Code: 19731-7 Heart Rate 1: 92 bpm Height: 5'3" Respiratory Rate: 20 bpm Temperature: 36 .8 (C) / 98.2 (F) Weight: 176 lbs 03/24/2015 Blood Pressure 1: 126/78 Code: 8480-6 BMI: 31.2 Code: 70181-0 Heart Rate 1: 80 bpm Height: 5'3" Respiratory Rate: 22 bpm Temperature: 36 .1 (C) / 96.9 (F) Weight: 176 lbs 03/05/2015 Blood Pressure 1: 132/80 Code: 8480-6 BMI: 31.5 Code: 36647-7 Heart Rate 1: 92 bpm Height: 5'2" Respiratory Rate: 20 bpm Temperature: 36 .4 (C) / 97.6 (F) Weight: 175 lbs 02/19/2015 Blood Pressure 1: 134/80 Code: 8480-6 BMI: 31.5 Code: 66901-1 Heart Rate 1: 88 bpm Height: 5'2" Respiratory Rate: 20 bpm Temperature: 36 .7 (C) / 98.0 (F) Weight: 175 lbs 12/25/2014 Blood Pressure 1: 122/80 Code: 8480-6 BMI: 31.0 Code: 82352-3 Heart Rate 1: 88 bpm Height: 5'2" Respiratory Rate: 20 bpm Temperature: 36 .6 (C) / 97.8 (F) Weight: 172 lbs 11/26/2014 Blood Pressure 1: 116/68 Code: 8480-6 BMI: 30.2 Code: 11814-8 Heart Rate 1: 76 bpm Height: 5'2" Respiratory Rate: 20 bpm Temperature: 36 .5 (C) / 97.7 (F) Weight: 168 lbs 11/04/2014 Blood Pressure 1: 116/64 Code: 8480-6 BMI: 30.8 Code: 30262-7 Heart Rate 1: 92 bpm Height: 5'2" Respiratory Rate: 20 bpm Temperature: 36 .7 (C) / 98.1 (F) Weight: 171 lbs 09/01/2014 Blood Pressure 1: 130/82 Code: 8480-6 BMI: 30.6 Code: 00635-3 Heart Rate 1: 92 bpm Height: 5'2" Respiratory Rate: 20 bpm Temperature: 36 .9 (C) / 98.4 (F) Weight: 170 lbs 06/02/2014 Blood Pressure 1: 126/80 Code: 8480-6 BMI: 30.2 Code: 35611-5 Heart Rate 1: 88 bpm Height: 5'2" Respiratory Rate: 20 bpm Temperature: 36 .7 (C) / 98.1 (F) Weight: 168 lbs 05/26/2014 Blood Pressure 1: 132/78 Code: 8480-6 He art Rate 1: 74 bpm 04/08/2014 Blood Pressure 1: 156/94 Code: 8480-6 BMI: 30.2 Code: 84869-6 Heart Rate 1: 96 bpm Height: 5'2" Respiratory Rate: 20 bpm Temperature: 37 .1 (C) / 98.7 (F) Weight: 168 lbs 03/05/2014 Blood Pressure 1: 144/86 Code: 8480-6 BMI: 29.9 Code: 28567-2 Heart Rate 1: 100 bpm Height: 5'2" Respiratory Rate: 20 bpm Temperature: 36 .7 (C) / 98.1 (F) Weight: 166 lbs 07/29/2013 Blood Pressure 1: 124/80 Code: 8480-6 Heart Rate 1: 92 bpm Respiratory Rate: 20 bpm Temperature: 36.2 (C) / 97.2 (F) Weight: 167 lbs 03/20/2013 Blood Pressure 1: 116/84 Code: 8480-6 BMI: 30.8 Code: 73085-7 Heart Rate 1: 96 bpm Height: 5'3" Respiratory Rate: 20 bpm Temperature: 36 .6 (C) / 97.8 (F) Weight: 174 lbs 02/12/2013 Blood Pressure 1: 122/80 Code: 8480-6 BMI: 30.5 Code: 36799-7 Heart Rate 1: 112 bpm Height: 5'3" Respiratory Rate: 20 bpm Temperature: 36 .9 (C) / 98.4 (F) Weight: 172 lbs 11/05/2012 BMI: 31.2 Code: 67867-9 Height: 5'3" Weight: 176 lbs 10/04/2012 Heart Rate 1: 84 bpm Height: 5'3" Respiratory Rate: 20 bpm Temperature: 36.8 (C) / 98.3 (F) Weight: 09/24/2012 Blood Pressure 1: 122/88 Code: 8480-6 BMI: 30.8 Code: 78242-7 Heart Rate 1: 80 bpm Height: 5'3" Respiratory Rate: 20 bpm Temperature: 36 .8 (C) / 98.2 (F) Weight: 174 lbs 05/10/2012 Blood Pressure 1: 124/68 Code: 8480-6 BMI: 30.1 Code: 10659-5 Heart Rate 1: 64 bpm Height: 5'3" Temperature: 36.6 (C) / 97.8 (F) Weight: 170 lbs 03/07/2012 Blood Pressure 1: 132/78 Code: 8480-6 BMI: 29.2 Code: 90365-2 Heart Rate 1: 92 bpm Height: 5'3" Respiratory Rate: 20 bpm Temperature: 36 .7 (C) / 98.1 (F) Weight: 165 lbs 02/01/2012 Blood Pressure 1: 116/78 Code: 8480-6 BMI: 29.1 Code: 61490-6 Heart Rate 1: 84 bpm Height: 5'3" Respiratory Rate: 20 bpm Temperature: 36 .8 (C) / 98.2 (F) Weight: 164 lbs 12/20/2011 Blood Pressure 1: 128/80 Code: 8480-6 BMI: 29.1 Code: 26845-5 Heart Rate 1: 88 bpm Height: 5'3" Respiratory Rate: 20 bpm Temperature: 36 .4 (C) / 97.6 (F) Weight: 164 lbs 11/22/2011 Blood Pressure 1: 104/60 Code: 8480-6 BMI: 28.5 Code: 04442-3 Heart Rate 1: 78 bpm Height: 5'3" Temperature: 36.6 (C) / 97.9 (F) Weight: 161 lbs 07/11/2011 Blood Pressure 1: 118/72 Code: 8480-6 BMI: 30.6 Code: 42379-0 Heart Rate 1: 92 bpm Height: 5'3" Respiratory Rate: 20 bpm Temperature: 36 .8 (C) / 98.2 (F) Weight: 173 lbs 07/06/2011 Blood Pressure 1: 126/80 Code: 8480-6 BMI: 31.0 Code: 20376-9 Heart Rate 1: 88 bpm Height: 5'3" Respiratory Rate: 20 bpm Temperature: 36 .7 (C) / 98.1 (F) Weight: 175 lbs 05/26/2011 Blood Pressure 1: 100/78 Code: 8480-6 BMI: 31.0 Code: 95730-3 Heart Rate 1: 74 bpm Height: 5'3" Temperature: 36.4 (C) / 97.6 (F) Weight: 175 lbs 05/16/2011 Blood Pressure 1: 116/80 Code: 8480-6 BMI: 31.0 Code: 67939-1 Heart Rate 1: 88 bpm Height: 5'3" Respiratory Rate: 20 bpm Temperature: 36 .8 (C) / 98.2 (F) Weight: 175 lbs 05/05/2011 Blood Pressure 1: 126/80 Code: 8480-6 BMI: 30.6 Code: 10427-3 Heart Rate 1: 96 bpm Height: 5'3" Respiratory Rate: 20 bpm Temperature: 36 .4 (C) / 97.6 (F) Weight: 173 lbs 04/05/2011 Blood Pressure 1: 144/90 Code: 8480-6 BMI: 30.1 Code: 08609-5 Heart Rate 1: 92 bpm Height: 5'3" Respiratory Rate: 20 bpm Temperature: 36 .6 (C) / 97.8 (F) Weight: 170 lbs 03/02/2011 Blood Pressure 1: 136/94 Code: 8480-6 Heart Rate 1: 92 bpm Temperature: 36.6 (C) / 97.8 (F) Weight: 171 lbs 01/05/2011 Blood Pressure 1: 132/86 Code: 8480-6 BMI: 30.6 Code: 98483-2 Heart Rate 1: 98 bpm Height: 5'3" [...] 1: 122/68 Code: 8480-6 BMI: 29.8 Code: 44263-7 Height: 5'3" Temperature: 36.3 (C) / 97.4 [...] 1: 142/90 Code: 8480-6 BMI: 30.5 Code: 58852-1 Heart Rate 1: 96 bpm Height: 5'3" Temperature: 36.1 (C) / 97.0 (F) Weight: 172 lbs Functional Status No Functional Status data Reason For Visit Reason For Visit Effective Dates Notes back pain 04/12/2019 back pain 01/16/2019 back [...] 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 Finished ABX from [facility]. cough 07/23/2010 painful urination 06/14/2010 high blood [...] 11/23/2009 Encounters Encounter Performer Location Codes Date ([id number]) OFFICE/OUTPATIENT VISIT EST Diagnosis: Low back pain[ICD10: M54.5] Jane Nettles YAIMA S. O AMNA DO [employer] CPT-4: 43021 04/12/2019 ([id number]) OFFICE/OUTPATIENT VISIT EST Diagnosis: Pain in thoracic spine[ICD10: M54.6] Diagnosis: Muscle spasm of back[ICD10: M62.830] Yaima GUEVARA [employer] [employer] CPT-4: 49806 01/16/2019 ([id number]) NURSE/OUTPATIENT VISIT EST Diagnosis: Low back pain[ICD10: M54.5] Diagnosis: Hematuria, unspecified[ICD10: R31.9] Yaima GUEVARA [facility] [employer] CPT-4: 84665 01/14/2019 ([id number]) OFFICE/OUTPATIENT VISIT EST Diagnosis: Left lower quadrant pain[ICD10: R10.32] Yaima CAMP [facility] CPT-4: 83181 01/09/2019 ([id number]) NURSE/OUTPATIENT VISIT EST Diagnosis: Hematuria, unspecified[ICD10: R31.9] Yaima GUEVARA [facility] [employer] CPT-4: 89394 11/01/2018 ([id number]) OFFICE/OUTPATIENT VISIT EST Diagnosis: Hypothyroidism, unspecified[ICD10: E03.9] Diagnosis: Other fatigue[ICD10: R53.83] Diagnosis: Other cervical disc degeneration, unspecified cervical region[ICD10: M50.30] Yaima [facility] CPT-4: 84915 10/04/2018 ([id number]) OFFICE/OUTPATIENT VISIT EST Diagnosis: Hypothyroidism, unspecified[ICD10: E03.9] Diagnosis: Impaired fasting glucose[ICD10: R73.01] Diagnosis: Cervicalgia[ICD10: M54.2] Yaima [facility] CPT-4: 04062 08/06/2018 ([id number]) OFFICE/OUTPATIENT VISIT EST Diagnosis: Radiculopathy, lumbosacral region[ICD10: M54.17] Diagnosis: Abrasion, left lower leg, sequela[ICD10: S80.812S] [facility]: 58615 06/21/2018 ([id number]) NURSE/OUTPATIENT VISIT EST Diagnosis: Urinary tract infection, site not specified[ICD10: N39.0] Yaima [facility] CPT-4: 54516 06/13/2018 ([id number]) OFFICE/OUTPATIENT VISIT EST Diagnosis: Other dorsalgia[ICD10: M54.89] [facility] CPT-[facility]: 95179 05/31/2018 ([id number]) NURSE/OUTPATIENT VISIT EST Diagnosis: FLU VACCINE[ICD10: Z23] Yaima [facility] CPT-4: 74980 03/22/2018 ([id number]) OFFICE/OUTPATIENT VISIT EST Diagnosis: Hypothyroidism, unspecified[ICD10: E03.9] Diagnosis: Essential (primary) hypertension[ICD10: I10] Diagnosis: Other seasonal allergic rhinitis[ICD10: J30.2] Yaima [facility] CPT-4: 96497 02/06/2018 ([id number]) NURSE/OUTPATIENT VISIT EST Diagnosis: Laceration of blood vessel of right index finger, initial encounter[ICD10: S65.510A] Diagnosis: VACCINE FOR TDAP[ICD10: Z23] Yaima [facility] CPT-4: 57024 12/28/2017 ([id number]) OFFICE/OUTPATIENT VISIT EST Diagnosis: Tinnitus, bilateral[ICD10: H93.13] Yaima [facility]ON DO [facility] CPT-4: 39610 12/18/2017 ([id number]) NURSE/OUTPATIENT VISIT EST Diagnosis: VACCIN FOR DISEASE NEC (HPV or Zostavax)[ICD10: Z23] Yaima JOHNSON DO [facility] CPT-4: 07667 10/04/2017 OFFICE/OUTPATIENT VISIT EST Diagnosis: Hypothyroidism, unspecified[ICD10: E03.9] Diagnosis: Essential (primary) hypertension[ICD10: I10] Diagnosis: Gastro-esophageal reflux disease without esophagitis[ICD10: K21.9] Diagnosis: Pain in right knee[ICD10: M25.561] Diagnosis: Hyperglycemia, unspecified[ICD10: R73.9] [facility] CPT-[facility]: 77459 09/11/2017 ([id number]) OFFICE/OUTPATIENT VISIT EST Diagnosis: Cervicalgia[ICD10: M54.2] Diagnosis: Hypothyroidism, unspecified[ICD10: E03.9] Diagnosis: Essential (primary) hypertension[ICD10: I10] Diagnosis: Irritant contact dermatitis, unspecified cause[ICD10: L24.9] Diagnosis: FLU VACCINE[ICD10: Z23] Yaima [facility] CPT-4: 92846 03/28/2017 ([id number]) OFFICE/OUTPATIENT VISIT EST Diagnosis: Influenza due to identified novel influenza A virus with other manifestations[ICD10: J09.X9] [facility] CPT-[facility]: 72808 09/12/2016 ([id number]) OFFICE/OUTPATIENT VISIT EST Diagnosis: Dermatitis, unspecified[ICD10: L30.9] Diagnosis: Pain in right knee[ICD10: M25.561] aYima JOHNSON [facility] CPT-4: 03290 07/28/2016 ([id number]) OFFICE/OUTPATIENT VISIT EST Diagnosis: Incisional hernia without obstruction or gangrene[ICD10: K43.2] Diagnosis: Gastro-esophageal reflux disease without esophagitis[ICD10: K21.9] Diagnosis: Radiculopathy, lumbosacral region[ICD10: M54.17] Yaima JOHNSON DO [facility] CPT-4: 11370 04/26/2016 ([id number]) OFFICE/OUTPATIENT VISIT EST Diagnosis: FLU VACCINE[ICD10: Z23] Yaima EUGENE DO [facility] CPT-4: 75768 04/22/2016 ([id number]) OFFICE/OUTPATIENT VISIT EST Diagnosis: Other fecal abnormalities[ICD10: R19.5] Yaima JOHNSON DO [facility] CPT-4: 08305 01/04/2016 ([id number]) OFFICE/OUTPATIENT VISIT EST 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] Diagnosis: Other specified diseases of liver[ICD10: K76.89] Diagnosis: Irritant contact dermatitis due to detergents[ICD10: L24.0] Yaima JOHNSON DO [facility] CPT-4: 24386 12/09/2015 ([id number]) OFFICE/OUTPATIENT VISIT EST Diagnosis: Pain in thoracic spine[ICD10: M54.6] Diagnosis: Radiculopathy, lumbosacral region[ICD10: M54.17] Diagnosis: Precordial pain[ICD10: R07.2] Yaima JOHNSON DO [facility] CPT-4: 03609 09/10/2015 ([id number]) OFFICE/OUTPATIENT VISIT EST Diagnosis: Nausea[ICD10: R11.0] Yaima JOHNSON DO [facility] CPT-4: 80264 07/20/2015 ([id number]) OFFICE/OUTPATIENT VISIT EST Diagnosis: Pain in left elbow[ICD10: M25.522] Diagnosis: Contusion of left lower leg, sequela[ICD10: S80.12XS] Diagnosis: Pleurodynia[ICD10: R07.81] Yaima [facility] CPT-4: 34967 04/23/2015 ([id number]) OFFICE/OUTPATIENT VISIT EST Diagnosis: Unspecified abdominal pain[ICD10: R10.9] Diagnosis: Ventral hernia without obstruction or gangrene[ICD10: K43.9] Diagnosis: Constipation, unspecified[ICD10: K59.00] Yaima JOHNSON DO [facility] CPT-4: 33044 03/24/2015 ([id number]) OFFICE/OUTPATIENT VISIT EST Diagnosis: FLU VACCINE[ICD10: Z23] Yaima EUGENE DO [facility] CPT-4: 86446 03/09/2015 ([id number]) OFFICE/OUTPATIENT VISIT EST 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] Diagnosis: Generalized abdominal pain[ICD10: R10.84] Yaima JOHNSON [facility] CPT-4: 30321 03/05/2015 OFFICE/OUTPATIENT VISIT EST Diagnosis: ABDOMINAL PAIN[ICD9: 789.00] Diagnosis: HYPOTHYROIDISM[ICD9: 244.9] Diagnosis: HYPERTENSION[ICD9: 401.9] Diagnosis: DIVERTICULITIS, COLONIC[ICD9: 562.11] Diagnosis: DISTURBANCE OF SKIN SENSATION (Paresthesia)[ICD9: 782.0] Yaima JOHNSON DO [facility] CPT-4: 67552 02/19/2015 ([id number]) OFFICE/OUTPATIENT VISIT EST Diagnosis: HYPOTHYROIDISM[ICD9: 244.9] Diagnosis: Diaphoresis[ICD9: 780.8] Yaima DUMONT [facility] CPT-4: 53913 12/25/2014 ([id number]) OFFICE/OUTPATIENT VISIT EST Diagnosis: ABDOMINAL PAIN[ICD9: 789.00] Diagnosis: PAIN, LOWER BACK[ICD9: 724.2] Diagnosis: Contusion of leg[ICD9: 924.5] Yaima JOHNSON [facility] CPT-4: 28227 11/26/2014 ([id number]) OFFICE/OUTPATIENT VISIT EST Diagnosis: IBS[ICD9: 564.1] Diagnosis: GERD[ICD9: 530.81] Yaima JOHNSON DO [facility] CPT-4: 50661 11/04/2014 ([id number]) OFFICE/OUTPATIENT VISIT EST Diagnosis: Headache[ICD9: 784.0] Diagnosis: Leg pain[ICD9: 729.5] Yaima JOHNSON DO [facility] CPT-4: 39134 09/01/2014 ([id number]) OFFICE/OUTPATIENT VISIT EST Diagnosis: DYSURIA[ICD9: 788.1] Yaima JOHNSON DO [facility] CPT-4: 63854 07/10/2014 OFFICE/OUTPATIENT VISIT EST Diagnosis: VAGINITIS[ICD9: 623.5] Diagnosis: SINUSITIS, ACUTE[ICD9: 461.9] Yaima JOHNSON DO [facility] CPT-4: 31807 06/02/2014 ([id number]) OFFICE/OUTPATIENT VISIT EST Diagnosis: HYPERTENSION[ICD9: 401.9] Diagnosis: ALLERGIC RHINITIS[ICD9: 477.9] Diagnosis: PAIN, LOWER BACK[ICD9: 724.2] Yaima JOHNSON DO [facility] CPT-4: 71041 04/08/2014 ([id number]) OFFICE/OUTPATIENT VISIT EST Diagnosis: COUGH[ICD10: R05] Diagnosis: Thoracic back pain[ICD9: 724.1] Yaima JOHNSON DO [facility] CPT-4: 06211 03/05/2014 ([id number]) OFFICE/OUTPATIENT VISIT EST Diagnosis: SINUSITIS, ACUTE[ICD9: 461.9] Diagnosis: BRONCHITIS, ACUTE[ICD9: 466.0] Yaima JOHNSON DO [facility] CPT-4: 20825 07/29/2013 ([id number]) OFFICE/OUTPATIENT VISIT EST Diagnosis: ABDOMINAL PAIN[ICD9: 789.00] Diagnosis: Constipation[ICD9: 564.00] Diagnosis: DIVERTICULITIS, COLONIC[ICD9: 562.11] Yaima JOHNSON DO [facility] CPT-4: 78106 03/20/2013 ([id number]) OFFICE/OUTPATIENT VISIT EST Diagnosis: Plantar fasciitis[ICD9: 728.71] Diagnosis: ALLERGIC RHINITIS[ICD9: 477.9] Yaima JOHNSON [facility] CPT-4: 36276 02/12/2013 OFFICE/OUTPATIENT VISIT EST Diagnosis: Skin lesion[ICD9: 709.9] Diagnosis: Lumbar back pain[ICD9: 724.2] Diagnosis: Muscle spasm[ICD9: 728.85] Diagnosis: Hypothyroid[ICD9: 244.9] Yaima DUMONT [facility] CPT-4: 30904 11/05/2012 ([id number]) OFFICE/OUTPATIENT VISIT EST Diagnosis: Cervicalgia[ICD9: 723.1] Diagnosis: Thoracic back pain[ICD9: 724.1] Diagnosis: SPASM OF MUSCLE[ICD9: 728.85] Yaima [facility]NSON [facility] CPT-4: 42518 10/04/2012 ([id number]) OFFICE/OUTPATIENT VISIT EST Diagnosis: MALAISE AND FATIGUE[ICD9: 780.79] Diagnosis: HYPOTHYROIDISM[ICD9: 244.9] Diagnosis: HYPERTENSION[ICD9: 401.9] Yaima TAYLOR [facility] CPT-4: 72352 09/24/2012 ([id number]) OFFICE/OUTPATIENT VISIT EST Diagnosis: Lateral epicondylitis[ICD9: 726.32] Diagnosis: Wrist pain[ICD9: 719.43] Diagnosis: Numbness and tingling in right hand[ICD9: 782.0] Yaima JOHNSON [facility] CPT-4: 93575 05/10/2012 OFFICE/OUTPATIENT VISIT EST Diagnosis: MALAISE AND FATIGUE[ICD9: 780.79] Diagnosis: HYPOTHYROIDISM[ICD9: 244.9] Diagnosis: Enthesopathy of the wrist and carpus[ICD9: 726.4] Diagnosis: Foot pain[ICD9: 729.5] Diagnosis: DYSPHAGIA NEC[ICD9: 787.29] Yaima Nails AMNA [facility] CPT-4: 32282 03/07/2012 ([id number]) OFFICE/OUTPATIENT VISIT EST Diagnosis: HYPOTHYROIDISM[ICD9: 244.9] Yaima SAMUELS S. [facility] CPT-4: 70886 02/01/2012 ([id number]) OFFICE/OUTPATIENT VISIT EST Diagnosis: MALAISE AND FATIGUE[ICD9: 780.79] Diagnosis: HYPOTHYROIDISM[ICD9: 244.9] Yaima SAMUELS S. [facility] R[facility]ER [facility] CPT-4: 20898 12/20/2011 OFFICE/OUTPATIENT VISIT EST Diagnosis: INSECT BITE HIP/LEG[ICD9: 916.4] Lizzette [facility]AMSNDER [facility] CPT-4: 15704 11/22/2011 OFFICE/OUTPATIENT VISIT EST Diagnosis: HEMATURIA NOS[ICD9: 599.70] Yaima SAMUELS S. O RENDER [facility] CPT-4: 81201 07/14/2011 OFFICE/OUTPATIENT VISIT EST Diagnosis: URINARY TRACT INFECTION[ICD9: 599.0] Diagnosis: DIVERTICULITIS, COLONIC[ICD9: 562.11] [facility]: 78527 07/11/2011 OFFICE/OUTPATIENT VISIT EST Diagnosis: TMJ arthritis[ICD9: 524.69] Diagnosis: MIGRAINE NOS/NOT INTRCBL[ICD9: 346.90] Diagnosis: Rectal fissure[ICD9: 565.0] Yaima SAMUELS S. O RENDER [facility] CPT-4: 60141 07/06/2011 OFFICE/OUTPATIENT VISIT EST Diagnosis: SPASM OF MUSCLE[ICD9: 728.85] Diagnosis: PAIN, LOWER BACK[ICD9: 724.2] Yaima JOHNSON [facility] CPT-4: 60922 05/26/2011 OFFICE/OUTPATIENT VISIT EST Diagnosis: PAIN, LOWER BACK[ICD9: 724.2] Diagnosis: SPASM OF MUSCLE[ICD9: 728.85] Yaima [facility] CPT-4: 27264 05/16/2011 OFFICE/OUTPATIENT VISIT EST Diagnosis: PAIN, LOWER BACK[ICD9: 724.2] Diagnosis: ENTHESOPATHY OF HIP[ICD9: 726.5] Diagnosis: Onychomycosis[ICD9: 110.1] Yaima [facility] CPT-4: 37479 05/05/2011 OFFICE/OUTPATIENT VISIT EST Diagnosis: Diverticulitis[ICD9: 562.11] Yaima [facility]S [facility] CPT-4: 88364 04/05/2011 OFFICE/OUTPATIENT VISIT EST Diagnosis: CHEST PAIN NOS[ICD9: 786.50] Diagnosis: PALPITATIONS[ICD9: 785.1] Diagnosis: Pulmonary arterial hypertension[ICD9: 416.8] Yaima [facility] CPT-4: 97326 03/02/2011 OFFICE/OUTPATIENT VISIT EST Yaima SAMUELS S. ORE NDER [facility] CPT- 4: 42005 01/05/2011 ([id number]) OFFICE/OUTPATIENT VISIT EST Yaima AGUIRRE UJUAN CARLOS S. [facility] CPT-4: 69414 11/16/2010 ([id number]) OFFICE/OUTPATIENT VISIT EST Yaima AGUIRRE [facility]ELINE [facility] CPT-4: 69698 11/04/2010 ([id number]) OFFICE/OUTPATIENT VISIT EST Yaima AGUIRRE [facility] CPT-4: 32557 08/05/2010 ([id number]) OFFICE/OUTPATIENT VISIT EST Yaima AGUIRRE [facility]INE [facility] CPT-4: 22181 07/23/2010 ([id number]) OFFICE/OUTPATIENT VISIT, EST Yaima [facility]AMP [facility] CPT-4: 12968 06/07/2010 ([id number]) OFFICE/OUTPATIENT VISIT, EST Yaima [facility]AMP [facility] CPT-4: 06424 05/12/2010 ([id number]) OFFICE/OUTPATIENT VISIT, EST Yaima [facility]AMP [facility] CPT-4: 55083 04/27/2010 ([id number]) OFFICE/OUTPATIENT VISIT, EST Yaima [facility]AMP [facility] CPT-4: 37509 04/19/2010 ([id number]) OFFICE/OUTPATIENT VISIT, [facility] CPT-4: 96781 03/09/2010 ([id number]) OFFICE/OUTPATIENT VISIT, [facility] CPT-4: 78906 01/04/2010 ([id number]) OFFICE/OUTPATIENT VISIT, [facility] CPT-4: 98271 12/14/2009 ([id number]) OFFICE/OUTPATIENT VISIT, [facility] CPT-4: 25097 11/23/2009 Plan of Care Planned Activity Notes Codes Status Date Care Plan: COMPREH[place] : [address]-9 Pending 06/18/2019 Care Plan: LIPID PANEL LOINC : 48597-4 Pending 06/18/2019 Care Plan: A1C HPLC LOINC : 17167-6 Pending 06/18/2019 Care Plan: COMPLETE CBC W/AUTO DIFF WBC LOINC : 57778-2 Pending 06/18/2019 Care Plan: ASSAY THYROID STIM [...] ICD-10 : M54.5 04/12/2019 Appointment: Jane Nettles [address] [place], [place] [phone] ACUTE ILLNESS 04/12/2019 Appointment: Yaima Johnson WPtel: [phone] [facility] US CANCELED 02/05/2019 Visit Diagnosis Plan: Pain in thoracic spine Discussio n: Moist Heat Topical Muscle Rub Towel Stretch Skelaxin with Tylenol Arthritis TID Okay to use lidoderm patches Notify if persists ICD-9 : 724.1 ICD-10 : M54.6 01/16/2019 Appointment: Yaima Johnsontel: [address] [place] [address] ACUTE ILLNESS 01/16/2019 Appointment: Yaima Johnson WPtel: [address] [place], [place] [phone] UA 01/14/2019 Visit Diagnosis Plan: Left lower quadrant pain Discuss ion: Appears to have a hernia so did discuss surgical evaluation ICD-9 : 789.04 ICD-10 : R10.32 01/09/2019 Appointment: Yaima Johnson WPtel: [address] [place] [address] ACUTE ILLNESS 01/09/2019 Visit Diagnosis Plan: [facility] adult medical examination without abnormal findings Discussion: Mediterranean diet Combinati on of cardio and weight bearing exercise Update colonoscopy Tdap up to date Had Shingrix Recommend Prevnar 13 this Fall with Influenza Vaccine Finish PT Mammogram due in January and will do lab then as well Had WWE done this year by Dr. Richards ICD-9 : V70.9 ICD-10 : Z00.00 11/21/2018 Appointment: Yaima Johnsontel: [address] [place] [address] WELCOME TO MEDICARE 11/21/2018 Care Plan: Referral Order SNOMED-CT : 30 [id number] Pending 11/21/2018 Appointment: Yaima Johnson WPtel: [address] [place] [address] 11/01/2018 Visit Diagnosis Plan: Other cervical dis c degeneration, unspecified cervical region Discussion: MRI results discussed fw w [facility] Dr. Johnson ICD-9 : 722.4 ICD-10 : M50.30 10/04/2018 Visit Diagnosis Plan: Hypothyroidism, unspecified Disc ussion: Restart synthroid at 50mcg daily and recheck lab in 3mos ICD-9 : 244.9 ICD-10 : E03.9 10/04/2018 Appointment: Yaima Johnson WPtel: [facility] [facility] FOLLOW UP 10/04/2018 Care Plan: Referral Order SNOMED-CT : 30 [id number] Pending 10/04/2018 Visit Diagnosis Plan: Hypothyroidism, unspecified [...] : M54.2 08/06/2018 Appointment: Yaima Johnson WPtel: [address] [place], [place] [phone] Schedule medicare annual! FOLLOW UP 2018 Patient Education: levothyroxine- Optimize[employer] Coupon [phone] [phone] [email or web address] Completed 08/06/2018 Visit Diagnosis Plan: Radiculopathy, lumbosacral regio n Discussion: Daily stretches and see if improves--low dose gabapentin trial q HS if does not improve Lab and fwup in 3mos ICD-9 : 724.4 ICD-10 : M54.17 06/21/2018 Visit Diagnosis Plan: Abrasion, left lower leg, sequel a Discussion: Vitamin E topically for scarring/dryness ICD-9 : 906.2 ICD-10 : S80.812S 06/21/2018 Appointment: Yaima Johnson WPtel: [facility] ACUTE ILLNESS 06/21/2018 Appointment: Yaima Johnson WPtel: [address] [place] [address] UA 06/13/2018 Visit Diagnosis Plan: Other dorsalgia [...] ICD-10 : M54.89 05/31/2018 Appointment: Jane Nettles [address] [place] [address] ACUTE ILLNESS 05/31/2018 Appointment: Yaima Johnson WPtel: [address] [place] [address] INJECTION 03/22/2018 Patient Education: Patient Medication Summary Completed 03/22/2018 Patient Education: INFLUENZA VACCINE CDC Completed 03/22/2018 Appointment: Yaima Johnson WPtel: [address] [place] [address] RESCHEDULED 02/14/2018 Visit Diagnosis Plan: Hypothyroidism, unspecified [...] : I10 02/06/2018 Appointment: Yaima Johnson WPtel: [address] [place] [address] FOLLOW UP 02/06/2018 Patient Education: Patient Medication Summary Completed 02/06/2018 Appointment: Yaima Johnson WPtel: [address] [place], [place] [phone] [place] INJECTION 12/28/2017 Patient Education: Patient Medication Summary Completed 12/28/2017 Appointment: Yaima Johnson WPtel: [address] [place], [place] [phone] RESCHEDULED 12/25/2017 Visit Diagnosis Plan: Tinnitus, bilateral Discussion: See ENT for hearing eval and further workup ICD-9 : 388.31 ICD-10 : H93.13 12/18/2017 Appointment: Yaima Johnson WPtel: [address] [place], [place] [phone] ACUTE ILLNESS 12/18/2017 Patient Education: Patient Medication Summary Completed 12/18/2017 Patient Education: Tinnitus Completed 12/18/2017 Care Plan: Referral Order SNOMED-CT : 30 [id number] Pending 12/18/2017 Appointment: Yaima Johnson WPtel: [address] [place], [place] [phone] BP CHECK 12/11/2017 Patient Education: Patient Medication Summary Completed 12/11/2017 Referral: Danyel Hernandez WPtel: [facility] [address] Referral Initiated 10/11/2017 Appointment: Yaima Johnson WPtel: [address] [place], [place] [phone] [place] INJECTION 10/04/2017 Patient Education: Patient Medication [...] Pain in right knee Discussion: S thelma hernandezo for injection--had surgery 1 year ago ICD-9 : 719.46 ICD-10 : M25.561 09/11/2017 Appointment: Yaima Johnson WPtel: [phone] [phone] FOLLOW UP 09/11/2017 Patient Education: Patient Medication Summary Completed 09/11/2017 Appointment: Jane Nettles [address] 08/28/17 [phone]---issue addressed in phone message (km) CANCELED 08/29/2017 Patient Education: Patient Medication Summary Completed 07/11/2017 Care Plan: A1C HPLC LOINC : 51454-0 Pending 07/11/2017 Care Plan: ASSAY OF FREE THYROXINE Pendin g 07/11/2017 Care Plan: ASSAY THYROID STIM HORMONE Pen ding 07/11/2017 Care Plan: COMPLETE CBC W/AUTO DIFF WBC LOINC : 67878-5 Pending 07/11/2017 Care Plan: COMPREH[place] : [address]-3 Pending 07/11/2017 Visit Diagnosis Plan: Cervicalgia Discussion: [...] L24.9 03/28/2017 Appointment: Yaima Johnson WPtel: [phone] [facility] ACUTE ILLNESS 03/28/2017 Patient Education: Patient Medication Summary Completed 03/28/2017 Patient Education: Patient Medication Summary Completed 02/17/2017 Care Plan: ASSAY OF FREE THYROXINE Pendin g 02/17/2017 Care Plan: ASSAY THYROID STIM HORMONE Pen ding 02/17/2017 Care Plan: A1C HPLC LOINC : 69938-2 Pending 02/17/2017 Patient Education: Patient Medication Summary Completed 11/23/2016 Care Plan: A1C HPLC LOINC : 25849-5 Pending 11/23/2016 Patient Education: Patient Medication Summary Completed 11/22/2016 Care Plan: COMPREH[place] : [address]-2 Pending 11/22/2016 Care Plan: ASSAY THYROID STIM HORMONE Pen ding 11/22/2016 Care Plan: ASSAY OF FREE THYROXINE Pendin g 11/22/2016 Care Plan: CBC Pending 11/22/2016 Care Plan: ASSAY TRIIODOTHYRONINE (T3) Pe nding 11/22/2016 Care Plan: ASSAY OF IRON Pending Care Plan: VITAMIN B-12 Pending 11/04 Patient Education: Patient Medication Summary Completed 11/09/2016 Care Plan: US EXAM ABDO BACK WALL COMP L OINC : 10186-9 Pending 11/09/2016 Patient Education: Patient Medication Summary Completed 09/26/2016 Visit Diagnosis Plan: Influenza due to i dentified novel influenza A virus with other manifestations Discussion: Tamiflu for her and ICD-9 : 488.09 ICD-10 : J09.X9 09/12/2016 Visit NOS Plan: Plan Notes: Saline nasal flu shes prn. Tyle... 09/12/2016 Appointment: Yaima Johnson WPtel: [address] [place], [place] [phone] ACUTE ILLNESS 09/12/2016 Patient Education: Patient Medication Summary Completed 09/12/2016 Visit Diagnosis Plan: Pain in right knee Discussion: M RI of right knee scheduled for this weekend by ortho ICD-9 : 719.46 ICD-10 : M25.561 07/28/2016 Visit Diagnosis Plan: Dermatitis, unspecified Discussi on: Use clotrimazole/betamethasone BID to hand rash ICD-9 : 692.9 ICD-10 : L30.9 07/28/2016 Appointment: Yaima Johnson WPtel: [address] [place] [id number] [place] 07/27 confirmed `sl ACUTE ILLNESS 07/28/2016 [...] how does 04/26/2016 Appointment: Yaima Johnson WPtel: [address] [place] [phone] ACUTE ILLNESS 04/26/2016 Patient Education: Patient Medication Summary Completed 04/26/2016 Appointment: Yaima Johnson WPtel: [address] [place], [place] [phone] [place] INJECTION 04/22/2016 Patient Education: Patient Medication Summary Completed 04/22/2016 Appointment: Yaima Johnson WPtel: [address] [place], [place] [phone] Stool lab 01/04/2016 Patient Education: Patient Medication Summary Completed 01/04/2016 Visit Plan: Calmoseptine to irritated gr oin area Discussed that liver lesion and right kidney cyst are stable dating back to 2009 so likely benign and will recheck in 1year Check CMP and CBC 12/09/2015 Appointment: Yaima Johnson WPtel: [address] [place] [id number] [place] FOLLOW UP 12/09/2015 Patient Education: Patient Medication Summary Completed 12/09/2015 Patient Education: Patient Medication Summary Completed 11/26/2015 Care Plan: ECHO EXAM OF ABDOMEN LOINC : 74095-6 Pending 11/26/2015 Care Plan: US EXAM ABDO BACK WALL COMP L OINC : 56693-8 Pending 11/26/2015 Patient Education: Patient Medication Summary Completed 11/10/2015 Care Plan: ASSAY THYROID STIM HORMONE Pen ding 11/10/2015 Care Plan: ASSAY OF FREE THYROXINE Pendin g 11/10/2015 Visit Plan: Start PT for both right leg sciatica and thoracics for chest pain 09/10/2015 Appointment: Yaima Johnson WPtel: [address] [place], [place] [phone] ACUTE ILLNESS 09/10/2015 Patient Education: Patient Medication Summary Completed 09/10/2015 Appointment: Yaima Johnson WPtel: [address] [place], [place] [phone] [place] INJECTION 07/20/2015 Patient Education: Patient Medication Summary Completed 07/20/2015 Patient Education: Patient Medication Summary Completed 05/04/2015 Visit Plan: Observe left elbow for next 2 weeks and if not improving let us know Observe left leg bruising Can use voltaren gel to elbow Observe ribs Lidoderm patch for SI joint 04/23/2015 Appointment: Yaima Johnson WPtel: [address] [place] [address] FOLLOW UP 04/23/2015 Patient Education: Patient Medication Summary Completed 04/23/2015 Patient Education: Patient Medication Summary Completed 04/20/2015 Visit Plan: Discussed CT results Add Mliton alax 1/2 cap every other day 03/24/2015 Appointment: Yaima Johnson WPtel: [address] [place] [address] 03/23 confirmed~sl FOLLOW UP 03/24/2015 Patient Education: Patient Medication Summary Completed 03/24/2015 Appointment: Yaiam Johnson WPtel: [address] [place], [place] [phone] [place] INJECTION 03/09/2015 Patient Education: Patient Medication Summary Completed 03/09/2015 Visit Plan: Check CT scan of abdomen and pelvis with oral contrast Thoracic towel stretch 03/05/2015 Appointment: Yaima Johnson WPtel: [address] [place] [address] [place] FOLLOW UP 03/05/2015 Patient Education: Patient Medication Summary Completed 03/05/2015 Referral: [place] Berger WPtel: [address] [id number] [place] Referral Initiated 02/23/2015 Visit Plan: Lab [...] left knee 02/19/2015 Appointment: Yaima Johnson WPtel: [address] [place], [place] [phone] 02/18/15 lm confirmed with cb FOLLOW UP Patient Education: Patient Medication Summary Completed 02/19/2015 Patient Education: Patient Medication Summary Completed 02/04/2015 Appointment: Yaima Johnson WPtel: [address] [place], [place] [phone] FOLLOW UP 01/06/2015 Visit Plan: Decrease levothyroxine to 50 mcg daily Recheck TSH and Free T4 in 2mos then fwup 12/25/2014 Appointment: Yaima Johnson WPtel: [address] [place], [place] [phone] ACUTE ILLNESS 12/25/2014 Patient Education: Patient Medication Summary Completed 12/25/2014 Patient Education: [facility] [place] [facility] [employer] [employer] - Levothyroxine - 18-64 - Dynamic Portal ID Completed 12/25/2014 Patient Education: Patient Medication Summary Completed 12/15/2014 Visit Plan: Observe left leg keep meds s robert Has scheduled for 2nd epidural Recheck 3-4weeks after next epidural 11/26/2014 Appointment: Yaima Johnson WPtel: [address] [place], [place] [phone] 11/25 appt confirmed cn FOLLOW UP 11/27/19 15 Patient Education: Patient Medication Summary Completed 11/26/2014 Visit Plan: Increase Protonix to 40mg po BID Add Bentyl 10mg BID and up to TID prn Patient goes for back injection in 3 weeks Fwup 1 week after back injection 11/04/2014 Appointment: Yaima Johnson WPtel: [address] [place] [phone] 11/03/ / 11/04 appt confirmed ACUTE ILLNESS 0 11/04/2014 Patient Education: Patient Medication Summary Completed 11/04/2014 Appointment: Yaima Johnson WPtel: [address] [place] [phone] 10/14/14: doing better-canceled appt-lb ACUTE ILL NESS 10/15/2014 Visit Plan: hydration stop benadryl Obse rve and monitor Headaches Leg stretches, going to PT today-have them show stretches Notify if headaches, leg pain return/persist 09/01/2014 Appointment: Yaima Johnson WPtel: [address] [place], [place] [phone] ACUTE ILLNESS 09/01/2014 Patient Education: Patient Medication Summary Completed 09/01/2014 Patient Education: Patient Medication Summary Completed 08/05/2014 Care Plan: ASSAY OF FREE THYROXINE Ordere d 08/05/2014 Care Plan: ASSAY THYROID STIM HORMONE Ord ered 08/05/2014 Appointment: Yaima Johnson WPtel: [address] [place], [place] [phone] [place] [address] 07/10/2014 Patient Education: Patient Medication Summary Completed 07/10/2014 Patient Education: Patient Medication Summary Completed 07/03/2014 Care Plan: HEPATIC FUNCTION PANEL Ordered 07/03/2014 Visit Plan: Vaginal ring unable to be in serted do will have to stick with pill vaginally as prescribed for at least 6mo trial Saline nasal flushes and restart flonase 06/02/2014 Appointment: Yaima Johnson WPtel: [address] [place], [place] [phone] FOLLOW UP 06/02/2014 Patient Education: Patient Medication Summary Completed 06/02/2014 Appointment: Yaima Johnson WPtel: [address] [place], [place] [phone] BP CHECK 05/26/2014 Patient Education: Patient Medication Summary Completed 05/26/2014 Patient Education: Patient Medication Summary Completed 05/22/2014 Appointment: Yaima Johnson WPtel: [address] [place] [address] BP CHECK 05/07/2014 Patient Education: Patient Medication Summary Completed 05/07/2014 Referral: Nitesh Avalos WPtel: [address] [place] 403 [id number] MRI Scheduled at [place], 04/17 3pm Completed 04/30/2014 Appointment: Yaima Johnson WPtel: [address] [place], [place] [phone] BP CHECK 04/15/2014 Visit Plan: Decrease premarin to 0.3125m g for 1week then stop Restart estrogen vaginal tabs and Patient requests to see Dr. Restrepo for back but discussed at this time appears to need conservative management such as PT and epidurals Moniter BP 04/08/2014 Appointment: Yaima Johnson WPtel: [address] [place] [address] ACUTE ILLNESS 04/08/2014 Patient Education: Patient Medication Summary Completed 04/08/2014 Appointment: Yaima Johnson WPtel: [address] [place] [address] ACUTE ILLNESS 03/10/2014 Visit Plan: Thoracic stretches daily Ske laxin 800mg BID Use vimovo prn Use gemma prn 03/05/2014 Appointment: Yaima Johnson WPtel: [address] [place] [address] ACUTE ILLNESS 03/05/2014 Patient Education: Patient Medication Summary Completed 03/05/2014 Visit Plan: Saline nasal flushes prn. Ty lenol/Motrin prn headache. Notify if persists/symptoms worsening. Zithromax and Prednisone Supportive care. Rest, Fluids, Tylenol/Motrin prn fever or bodyaches. Notify if worsening symptoms. 07/29/2013 Appointment: Mimi Keenan WPtel: [address] [place], [place] [phone] FOLLOW UP 07/29/2013 Patient Education: Patient Medication Summary Completed 07/29/2013 Appointment: Mimi Keenan WPtel: [address] [place] [address] 05/22 patient called back and reschedule d 05/24 vm not set up yet ACUTE ILLNESS 05/27/20 13 Visit Plan: Add miralax Cipro/Flagyl Pt has appointment with GI in NOV 03/20/2013 Appointment: Yaima Johnson WPtel: [address] [place] [address] ACUTE ILLNESS 03/20/2013 Patient Education: Patient Medication Summary Completed 03/20/2013 Visit Plan: Tullicups Stretches, ice, vo ltaren gel TID 02/12/2013 Appointment: Yaima Johnson WPtel: [address] [place] [address] ACUTE ILLNESS 02/12/2013 Patient Education: Patient Medication [...] Oct 2012. 11/05/2012 Appointment: Lizzette Lozano WPtel: [address] [place], [place] [phone] ACUTE ILLNESS 11/05/2012 Patient Education: Patient Medication Summary Completed 11/05/2012 Appointment: Yaima Johnson WPtel: [address] [place], [place] [address] FOLLOW UP 10/04/2012 Patient Education: Patient Medication Summary Completed 10/04/2012 Visit Plan: Change toprol back to bystol ic BP check in 3wks Continue to observe hands--no observed bruising today 09/24/2012 Appointment: Yaima Johnson: [address] [place] [phone] 09/21 left message ACUTE ILLNESS 09/24/2012 Patient Education: Patient Medication Summary Completed 09/24/2012 Visit Plan: Proceed with EMG of RUE Cont inue vimovo and skelaxin May use Voltaren gel TID to elbow and wrist 05/10/2012 Appointment: Yaima Johnson WPtel: [address] [place], [place] [phone] 05/09 left voicemail ACUTE ILLNESS 05/10/2012 Patient [...] is improving 03/07/2012 Appointment: Yaima Johnson WPtel: [address] [place], [place] [phone] FOLLOW UP 03/07/2012 Patient Education: Patient Medication Summary Completed 03/07/2012 Visit Plan: Continue current dose Check TSH, Free T4 in 2mos 02/01/2012 Appointment: Yaima Johnson WPtel: [address] [place], [place] [phone] FOLLOW UP 02/01/2012 Patient Education: Patient Medication Summary Completed 02/01/2012 Visit Plan: Levothyroxine 50mcg po daily 12/20/2011 Appointment: Yaima Johnson WPtel: [address] [place], [place] [phone] FOLLOW UP 12/20/2011 Patient Education: Patient Medication Summary Completed 12/20/2011 Appointment: Lizzette Lozano WPtel: [address] [place], [place] [phone] ACUTE ILLNESS 11/22/2011 Patient Education: Patient Medication Summary Completed 11/22/2011 Appointment: Yaima Johnson WPtel: [address] [place] [address] UA 07/14/2011 Patient Education: Patient Medication Summary Completed 07/14/2011 Visit Plan: Finish current abx Clear liq uids to full liquids and then advance as tolerated If worsens will notify immediately Schedule with Dr. Berger for colonoscopy/EGD 07/11/2011 Appointment: Yaima Johnson WPtel: [address] [place] [address] ER Follow UP 07/11/2011 Patient Education: Patient Medication Summary Completed 07/11/2011 Visit Plan: Take treximet today and skel axin at bedtime Add anusol cream for 1wk Discussed if colon continues to flare-up over the next 6mos will repeat colonoscopy 07/06/2011 Appointment: Yaima Johnson WPtel: [address] [place] [address] ACUTE ILLNESS 07/06/2011 Patient Education: Patient Medication Summary Completed 07/06/2011 Appointment: Yaima Johnson WPtel: [address] [place] [address] INJECTION 06/28/2011 Patient Education: Patient Medication Summary Completed 06/28/2011 Visit Plan: OMT done Increase Skelaxin t o TID Start PT Daily stretches 05/26/2011 Appointment: Yaima Johnson WPtel: [address] [place] [address] ACUTE ILLNESS 05/26/2011 Patient Education: Patient Medication Summary Completed 05/26/2011 Visit Plan: OMT done Daily stretches, bi ofreeze Restart skelaxin 05/16/2011 Appointment: Yaima Johnson WPtel: [address] [place] [address] OMT 05/16/2011 Patient Education: Patient Medication Summary Completed 05/16/2011 Visit Plan: OMT done to back Stretches, moist heat and biofreeze Observe toenails 05/05/2011 Appointment: Yaima Johnsontel: [address] [place], [place] [id number] ACUTE ILLNESS 05/05/2011 Patient Education: Patient Medication Summary Completed 05/05/2011 Visit Plan: Finish Flagyl Continue Cultu relle and add Levbid for 1more week 04/05/2011 Appointment: Yaima Johnson WPtel: [address] [place], [place] [phone] ER Follow UP 04/05/2011 Patient Education: Patient Medication Summary Completed 04/05/2011 Appointment: Lizzette Lozano WPtel: [address] [place] [address] ACUTE ILLNESS 03/25/2011 Appointment: Yaima Johnson WPtel: [address] [place], [place] [phone] UA 03/23/2011 Patient Education: Patient Medication Summary Completed 03/23/2011 Visit Plan: Recommend proceed with heart cath Will check PFTs 03/02/2011 Appointment: Yaima Johnson WPtel: [address] [place] [address] FOLLOW UP 03/02/2011 Patient Education: Patient Medication Summary Completed 03/02/2011 Appointment: Yaima Johnson WPtel: [address] [place], [place] [phone] LAB 01/14/2011 Patient Education: Patient Medication Summary Completed 01/14/2011 Appointment: Lizzette Lozano WPtel: [address] [place], [place] [phone] ACUTE ILLNESS 01/05/2011 Patient Education: Patient Medication Summary Completed 01/05/2011 Visit Plan: Once again stressed jcarlosan ce of using premarin vaginal cream routinely to see if helps urinary symptoms Will culture urine Will observe lipomas--discussed may see surgery for removal 11/16/2010 Appointment: Yaima Johnson WPtel: [address] [place], [place] [phone] ACUTE ILLNESS 11/16/2010 Patient Education: Patient Medication Summary Completed 11/16/2010 Visit Plan: Injection to bursa as above Pt will continue to moniter BP and pulse off meds Repeat potassium level in 1wk 11/04/2010 Appointment: Yaima Johnsontel: [address] [place] [address] [place] FOLLOW UP 11/04/2010 Patient Education: Patient Medication Summary Completed 11/04/2010 Appointment: Yaima Johnson WPtel: [address] [place] [address] FOLLOW UP 08/05/2010 Patient Education: Patient Medication Summary Completed 08/05/2010 Appointment: Yaima Johnsontel: [address] [place] [address] ACUTE ILLNESS 07/23/2010 Patient Education: Patient Medication Summary Completed 07/23/2010 Appointment: Yaima Johnson WPtel: [address] [place] [address] [place] UA 07/05/2010 Patient Education: Patient Medication Summary Completed 07/05/2010 Appointment: Yaima Johnsontel: [address] [place] [address] [place] BP CHECK 06/28/2010 Patient Education: Patient Medication Summary Completed 06/28/2010 Appointment: Yaima Johnsontel: [address] [place] [address] [place] UA 06/14/2010 Appointment: Yaima Johnson WPtel: [address] [place] [address] [place] BP CHECK 06/14/2010 Appointment: Yaima Johnsontel: [address] [place] [address] [place] BP CHECK 06/14/2010 Patient Education: Patient Medication Summary Completed 06/14/2010 Patient Education: Patient Medication Summary Completed 06/14/2010 Appointment: Yaima Johnson WPtel: [address] [place], [place] [phone] [place] BP CHECK 06/10/2010 Visit Plan: Decrease lisinopril hct to 1 0/12.5mg QD and moniter BP BP check in 2-3wks--if pulse is increasing will go back to bystolic See ENT to evaluate hoarseness 06/07/2010 Appointment: Yaima Johnson WPtel: [address] [place] [address] [place], [place] [address] [place] FOLLOW UP 06/07/2010 Patient Education: Patient [...] printoff) 05/12/2010 Appointment: Lizzette Lozano WPtel: [address] [place] [address] ACUTE ILLNESS 05/12/2010 Patient Education: Patient Medication Summary Completed 05/12/2010 Visit Plan: Continue Bentyl at QAC and H S Continue protonix but increase to BID for 5-7 days If any fever or signs of divertuclitis develop notify 04/27/2010 Appointment: Yaima Johnson WPtel: [address] [place], [place] [phone] ACUTE ILLNESS 04/27/2010 Patient Education: Patient Medication Summary Completed 04/27/2010 Visit Plan: flako barajas. Refils. Alp razolam #90, -written RX 04/19/2010 Appointment: Lizzette Lozano WPtel: [address] [place] [address] ACUTE ILLNESS 04/19/2010 Patient Education: Patient Medication Summary Completed 04/19/2010 Appointment: Yaima Johnson WPtel: [address] [place] [address] LAB 04/12/2010 Patient Education: Patient Medication Summary Completed 04/12/2010 Appointment: Yaima Johnsontel: [address] [place] [address] UA 04/08/2010 Patient Education: Patient Medication Summary Completed 04/08/2010 Appointment: Yaima Johnson WPtel: [address] [place] [address] FOLLOW UP 03/09/2010 Patient Education: Patient Medication Summary Completed 03/09/2010 Appointment: Yaima Johnson WPtel: [address] [place] [address] BP CHECK 01/19/2010 Patient Education: Patient Medication Summary Completed 01/19/2010 Visit Plan: Check CT head Increase Bysto lic to 5mg QD BP check in 2wks 01/04/2010 Appointment: Yaima Johnson WPtel: [address] [place] [address] ACUTE ILLNESS 01/04/2010 Patient Education: Patient Medication Summary Completed 01/04/2010 Appointment: Yaima Johnsontel: [address] [place] [address] BP CHECK 12/21/2009 Patient Education: Patient Medication Summary Completed 12/21/2009 Visit Plan: Change cenestin back to Liu emigdio Cont to moniter BP BP check in 1wk 12/14/2009 Appointment: Yaima Johnson WPtel: [address] [place] [address] FOLLOW UP 12/14/2009 Patient Education: Patient Medication Summary Completed 12/14/2009 Appointment: Lizzette Lozano WPtel: [address] [place] [address] FOLLOW UP 11/23/2009 Patient Education: Patient Medication Summary Completed 11/23/2009 Appointment: Yaima Johnson WPtel: [address] [place] [address] [place] LAB 09/29/2009 Patient Education: Patient Medication Summary Completed 09/29/2009 App[facility]ment: [facility] Johnson [facility]el[facility] [phone] [id number] [place] [facility] 08/12/2009 Patient Education: Patient Medication Summary Completed 08/12/2009 Referral: [place] Berger WPtel: [address] [id number] [place] Referral Appointment Requested Referral: Jayce Boyce WPtel: [address] [id number] [place] Referral Appointment Requested Referral: Naldo Johnson WPtel: [address] [id number] [place] Referral Initiated Referral: Naldo Johnson WPtel: [address] [id number] [place] Referral Appointment Requested Instructions Comment . [...]
--- OUTSIDE RECORDS SUMMARY | 2019-08-15 06:11 | XMS REPORT | CCD ---
Author Author Fay Johnson D.O. Organization [facility] Address [address] [place] [address] Phone Care Team Providers Care Brusher And Shearer Name Role Phone Yaima Johnson D.O., PP Unavailable CCM Unavailable Summary Purpose Interface Exchange Insurance Providers Payer name Policy type / Coverage type Covered libertarian ID Effective Begin Date Effective End Date WPS MEDICARE PART B [place] Medicare Part B [id number] 2018 Unknown [employer] [facility] [employer] Medicare Part B [id number] 2018 Unknown Family History Family History data not found Social History Social History Element Codes Description Effective Dates Marital status Unknown 05/16/[address]: 320496902 Never smoker 04/05/2011 Allergies, Adverse Reactions, Alerts Substance Reaction Codes Entered Date Inactivated Date Status _ Unknown 11/23/2009 No Inactive Date Active * NO KNOWN FOOD ALLERGIES Unknown 11/23/2009 No Inactiv e Date Active _ Unknown 11/23/2009 No Inactive Date Active Problems Condition Codes Effective Dates Condition Status Hypothyroidism ICD-9: 244.9 ICD-10: E03.9 08/05/2014 Active [...] VACCINE ICD-9: V04.81 ICD-10: Z23 04/21/2016 Active Essential (primary) hypertension ICD-9: 401.9 ICD-10: I10 03/28/2017 Active Other seasonal allergic rhinitis ICD-9: 477.9 [...] I CD-9: 530.81 ICD-10: K21.9 11/04/2014 Active Hyperglycemia, unspecified ICD-9: 790.29 ICD-10: R73.9 02/17/2017 Active Pain in right knee ICD-9: 719.46 [...] Start Date Stop Date Status Fill Instructions Macrobid 100 mg capsule RxNorm: 213887 1 Capsule(s) Oral two ti mes a day 04/12/2019 04/19/2019 Inactive Toprol XL 25 mg tablet,extended release RxNorm: 286742 1 Tablet (s) PO QD 03/13/2019 09/08/2019 Active Generic For:TOPROL X L 25MG TAB SA 12/21/2015 9:08:41 AM Mobic 7.5 mg tablet RxNorm: 964951 1 Tablet(s) PO QOD opposite days as aleve 11/21/2018 11/21/2018 Inactive dicyclomine 10 mg capsule RxNorm: 771748 1 Capsule(s) P O TID as needed for abdominal pain 08/23/2018 No Stop Date Active alprazolam 0.25 mg tablet RxNorm: 879869 1 Tablet(s) PO Q8H as needed for anxiety 08/10/2018 11/20/2018 Inactive [AttnRPh: Saving apply/adjudicate RxGRP:SG20 RxBIN:[id number] RxPCN: ID#:[id number]] levothyroxine 25 mcg tablet RxNorm: 724633 1 Tablet(s) PO QD replaces 50mcg dose 08/06/2018 10/04/2018 Inactive levothyroxine 25 mcg tablet RxNorm: 030882 1 Tablet(s) PO QD replaces 50mcg dose 08/06/2018 08/05/2018 Inactive levothyroxine 50 mcg tablet RxNorm: 845269 1 Tablet(s) PO QD 201808/05/2018 Inactive Generic For:*SYNTHROID 0.05M G TAB 08/09/2016 8:59:33 AM Mobic 7.5 mg tablet RxNorm: 563082 1 Tablet(s) PO QOD opposite days as aleve 07/10/2018 09/07/2018 Inactive Mobic 7.5 mg tablet RxNorm: 796322 1 Tablet(s) PO QD 07/10/201807/09 Inactive Toprol XL 25 mg tablet,extended release RxNorm: 343598 1 Tablet (s) PO QD 06/18/2018 03/12/2019 Inactive Generic For:TOPROL X L 25MG TAB SA 12/21/2015 9:08:41 AM amoxicillin 500 mg capsule RxNorm: 775711 1 Capsule(s) PO TID 06/0406/10/2018 Inactive amoxicillin 500 mg capsule RxNorm: 893874 1 Capsule(s) PO TID 06/0406/03/2018 Inactive Skelaxin 800 mg tablet RxNorm: 924030 1 Tablet(s) PO BI D as needed for muscle spasm 05/31/2018 No Stop Date Active levothyroxine 50 mcg tablet RxNorm: 054955 1 Tablet(s) PO QD 201707/25/2018 Inactive Generic For:*SYNTHROID 0.05M G TAB 08/09/2016 8:59:33 AM Toprol XL 25 mg tablet,extended release RxNorm: 694448 1 Tablet (s) PO QD 12/19/2017 06/16/2018 Inactive Generic For:TOPROL X L 25MG TAB SA 12/21/2015 9:08:41 AM ranitidine 150 mg tablet RxNorm: 356316 1 Tablet(s) PO BID 12/12/19 18 05/31/2018 Inactive levothyroxine 50 mcg tablet RxNorm: 749467 1 Tablet(s) PO QD TAKE 1 TABLET BY MOUTH EVERY DAY 08/03/2017 02/02/2018 Inactive Generic For:*SYN THROID 0.05MG TAB 08/09/2016 8:59:33 AM Singulair 10 mg tablet RxNorm: 777158 1 Tablet(s) PO QHS 07/11/2017 0 09/10/2017 Inactive dicyclomine 10 mg capsule RxNorm: 696619 1 Capsule(s) P O TID as needed for abdominal pain 06/08/2017 08/22/2018 Inactive ranitidine 150 mg tablet RxNorm: 618973 1 Tablet(s) PO BID 06/08/19 18 09/05/2017 Inactive Toprol XL 25 mg tablet,extended release RxNorm: 038079 1 Tablet (s) PO QD 06/08/2017 12/19/2017 Inactive Generic For:TOPROL X L 25MG TAB SA 12/21/2015 9:08:41 AM betamethasone dipropionate 0.05 % topical cream RxNorm: 2389 20 1 Application TOP QHS 03/28/2017 10/03/2018 Inactive levothyroxine 50 mcg tablet RxNorm: 803914 1 Tablet(s) PO QD TAKE 1 TABLET BY MOUTH EVERY DAY 02/03/2017 08/01/2017 Inactive Generic For:*SYN THROID 0.05MG TAB 08/09/2016 8:59:33 AM ranitidine 150 mg tablet RxNorm: 814719 1 Tablet(s) PO BID 12/16/19 17 06/08/2017 Inactive Toprol XL 25 mg tablet,extended release RxNorm: 288608 1 Tablet (s) PO QD 12/15/2016 06/08/2017 Inactive Generic For:TOPROL X L 25MG TAB SA 12/21/2015 9:08:41 AM ranitidine 150 mg tablet RxNorm: 501791 1 Tablet(s) PO BID 11/12/19 17 12/10/2016 Inactive ranitidine 75 mg tablet RxNorm: 403413 1 Tablet(s) PO QD 10/21/2016 0 11/10/2016 Inactive ranitidine 75 mg tablet RxNorm: 669661 1 Tablet(s) PO QD 10/21/2016 0 10/20/2016 Inactive Tamiflu 75 mg capsule RxNorm: 798018 1 Capsule(s) PO BID 09/12/2016 0 09/16/2016 Inactive Promethegan 25 mg rectal suppository RxNorm: 911966 1 S uppository RTL Q4H as needed 09/12/2016 03/27/2017 Inactive levothyroxine 50 mcg tablet RxNorm: 614608 TAKE 1 TABLET BY GIDEON TH EVERY DAY 08/09/2016 02/03/2017 Inactive Generic For:*SYNTHRO ID 0.05MG TAB 08/09/2016 8:59:33 AM famotidine 40 mg tablet RxNorm: 205360 1 Tablet(s) PO BID 07/22/2016 10/20/2016 Inactive clotrimazole-betamethasone 1 %-0.05 % topical cream RxNorm: 121837 1 Application TOP BID to rash prn--was supposed to be cream not lotion 06/23/2016 Inactive famotidine 40 mg tablet RxNorm: 100024 1 Tablet(s) PO BID 06/23/2016 07/21/2016 Inactive Toprol XL 25 mg tablet,extended release RxNorm: 858432 1 Tablet (s) PO QD 06/14/2016 12/15/2016 Inactive Generic For:TOPROL X L 25MG TAB SA 12/21/2015 9:08:41 AM dicyclomine 10 mg capsule RxNorm: 719485 1 Capsule(s) P O TID as needed for abdominal pain 04/26/2016 06/07/2017 Inactive dicyclomine 10 mg capsule RxNorm: 732298 1 Capsule(s) P O TID as needed for abdominal pain 04/26/2016 06/08/2017 Inactive famotidine 40 mg tablet RxNorm: 409753 1 Tablet(s) PO QD 04/26/2016 0 06/22/2016 Inactive Protonix 40 mg tablet,delayed release RxNorm: 072090 1 Tablet(s ) PO QD 02/05/2016 03/27/2017 Inactive levothyroxine 50 mcg tablet RxNorm: 495584 1 Tablet(s) PO QD 201507/22/2016 Inactive Toprol XL 25 mg tablet,extended release RxNorm: 093178 TAKE ONE TABLET BY MOUTH EVERY DAY 12/21/2015 06/14/2016 Inactive Generic For:TOPR OL XL 25MG TAB SA 12/21/2015 9:08:41 AM Protonix 40 mg tablet,delayed release RxNorm: 095062 1 Tablet(s ) PO QD 07/27/2015 01/22/2016 Inactive levothyroxine 50 mcg tablet RxNorm: 826121 1 Tablet(s) PO QD 201501/17/2016 Inactive Phenergan 25 mg rectal suppository RxNorm: 123096 1 Sup pository RTL Q4H as needed for nausea and vomiting 07/20/2015 12/08/2015 Inactive Toprol XL 25 mg tablet,extended release RxNorm: 076404 1 Tablet (s) PO QD 06/15/2015 12/11/2015 Inactive clotrimazole-betamethasone 1 %-0.05 % topical cream RxNorm: 156585 1 Application TOP BID to rash prn--was supposed to be cream not lotion 05/20/2015 12/ Inactive Protonix 40 mg tablet,delayed release RxNorm: 784463 1 Tablet(s) 1 Tablet(s) PO QD 04/23/2015 07/27/2015 Inactive levothyroxine 50 mcg tablet RxNorm: 387910 1 Tablet(s) PO QD 201407/21/2015 Inactive Lidoderm 5 % (700 mg/patch) adhesive patch RxNorm: 1118073 1-2 Unit Dose TOP QD on for 12hrs then off for 12hrs 04/23/2015 03/27/2016 Inactive Miralax 17 gram oral powder packet RxNorm: 179728 1/2 U nit Dose PO every other day 03/24/2015 03/29/2015 Inactive levothyroxine 50 mcg tablet RxNorm: 943496 1 Tablet(s) PO QD 201404/19/2015 Inactive dicyclomine 10 mg capsule RxNorm: 038223 1 Capsule(s) P O TID as needed for abdominal pain 02/19/2015 04/25/2016 Inactive dicyclomine 10 mg capsule RxNorm: 730344 1 Capsule(s) P O TID as needed for abdominal pain 12/25/2014 02/18/2015 Inactive Protonix 40 mg tablet,delayed release RxNorm: 051839 1 Tablet(s ) PO BID 12/25/2014 03/04/2015 Inactive levothyroxine 50 mcg tablet RxNorm: 797860 1 Tablet(s) PO QD 201402/18/2015 Inactive Flonase 50 mcg/actuation nasal spray,suspension RxNorm: 8963 23 2 [place] NASAL QHS 12/25/2014 10/03/2018 Inactive [SAVINGS FOR NON -COVERED DRUGS -- BIN:[id number], PCN: ASPROD1, Group: XXXXX, ID# [id number], Questions: . THIS IS NOT INSURANCE.] Toprol XL 25 mg tablet,extended release RxNorm: 645510 1 Tablet (s) PO QD 12/01/2014 05/29/2015 Inactive dicyclomine 10 mg capsule RxNorm: 399021 1 Capsule(s) P O TID as needed for abdominal pain 12/01/2014 12/24/2014 Inactive levothyroxine 75 mcg tablet RxNorm: 309518 1 Tablet(s) PO QD 201412/24/2014 Inactive [AttnRPh: Saving apply/adjud icate RxGRP:SG20 RxBIN:[id number] RxPCN:HT ID#:[id number]] Protonix 40 mg tablet,delayed release RxNorm: 525163 1 Tablet(s) BID 1 Tablet(s) PO QD 11/04/2014 12/24/2014 Inactive dicyclomine 10 mg capsule RxNorm: 769457 1 Capsule(s) P O TID as needed for abdominal pain 11/04/2014 11/30/2014 Inactive Protonix 40 mg tablet,delayed release RxNorm: 559312 Ta blet(s) 1 Tablet(s) PO QD 10/14/2014 11/03/2014 Inactive Flonase 50 mcg/actuation nasal spray,suspension RxNorm: 8963 23 2 [place] NASAL QHS 09/01/2014 12/24/2014 Inactive [SAVINGS FOR NON -COVERED DRUGS -- BIN:[id number], PCN: ASPROD1, Group: XXXXX, ID# [id number], Questions: . THIS IS NOT INSURANCE.] Toprol XL 25 mg tablet,extended release RxNorm: 319772 Tablet(s) 1/2 Tablet(s) PO QD 08/28/2014 11/25/2014 Inactive [SAVINGS FOR UNI NSURED PATIENTS -- BIN:938104, PCN: ASPROD1, Group: [id number], ID# [id number], Process claim through [employer], for questions: . THIS IS NOT INSURANCE.] estradiol 0.01% (0.1 mg/gram) vaginal cream RxNorm: 771628 1 Gram(s) VAG Insert vaginally at bedtime, Monday, Monday and Monday06/26/2014 5 Inactive Toprol XL 25 mg tablet,extended release RxNorm: 673933 1/2 Tabl et(s) PO QD 06/06/2014 08/27/2014 Inactive [SAVINGS FOR UNINSUR ED PATIENTS -- BIN:730960, PCN: ASPROD1, Group: [id number], ID# [id number], Process claim through Media[employer], for questions: . THIS IS NOT INSURANCE.] estradiol 0.5 mg tablet RxNorm: 035820 1 Tablet(s) VAG Place one tablet in the vagina at bedtime three times a week 06/02/2014 06/25/2014 Inactive Estring 2 mg vaginal RxNorm: 340519 VAG Insert vaginall y and remove after 90 days 05/27/2014 06/01/2014 Inactive Toprol XL 25 mg tablet,extended release RxNorm: 042083 1/2 Tabl et(s) PO QD 04/15/2014 04/14/2014 Inactive Protonix 40 mg tablet,delayed release RxNorm: 524935 1 Tablet(s ) PO QD 04/15/2014 10/14/2014 Inactive estradiol 0.5 mg tablet RxNorm: 236590 1 Tablet(s) VAG Place one tablet in the vagina at bedtime twice a week 04/15/2014 06/01/2014 Inactive Toprol XL 25 mg tablet,extended release RxNorm: 065780 1/2 Tabl et(s) PO QD 04/15/2014 06/05/2014 Inactive [SAVINGS FOR UNINSUR ED PATIENTS -- BIN:544812, PCN: ASPROD1, Group: [id number], ID# [id number], Process claim through [employer], for questions: . THIS IS NOT INSURANCE.] levothyroxine 75 mcg tablet RxNorm: 312628 1 Tablet(s) PO QD 201304/07/2014 Inactive [AttnRPh: Saving apply/adjud icate RxGRP:SG20 RxBIN:[id number] RxPCN: ID#:[id number]] Flonase 50 mcg/actuation nasal spray,suspension RxNorm: 8963 23 1 [place] NASAL BID 04/08/2014 08/31/2014 Inactive levothyroxine 75 mcg tablet RxNorm: 845892 1 Tablet(s) PO QD 201310/04/2014 Inactive [AttnRPh: Saving apply/adjud icate RxGRP:SG20 RxBIN:[id number] RxPCN:HT ID#:[id number]] estradiol 0.5 mg tablet RxNorm: 370657 Tablet(s) PO Debra ce one tablet in the vagina at bedtime one time weekly 04/08/2014 04/07/2014 Inactive levothyroxine 75 mcg tablet RxNorm: 655692 1 Tablet(s) PO QD 201304/07/2014 Inactive [AttnRPh: Saving apply/adjud icate RxGRP:SG20 RxBIN:[id number] RxPCN:HT ID#:[id number]] Skelaxin 800 mg tablet RxNorm: 434556 1 Tablet(s) PO TI D as needed for muscle spasm 03/05/2014 11/03/2014 Inactive alprazolam 0.25 mg tablet RxNorm: 005981 1 Tablet(s) PO Q8H as needed for anxiety 02/27/2014 08/05/2018 Inactive [AttnRPh: Saving apply/adjudicate RxGRP:SG20 RxBIN:[id number] RxPCN: ID#:[id number]] Synthroid 75 mcg tablet RxNorm: 426607 1 Tablet(s) PO QD 11/29/2013 0 11/03/2014 Inactive levothyroxine 75 mcg tablet RxNorm: 854902 1 Tablet(s) PO QD -N eed labs 11/27/2013 03/19/2014 Inactive [AttnRPh: Saving jessica ly/adjudicate RxGRP:SG20 RxBIN:[id number] RxPCN: ID#:[id number]] Protonix 40 mg tablet,delayed release RxNorm: 602446 1 Tablet(s ) PO QD 10/07/2013 04/04/2014 Inactive Synthroid 75 mcg tablet RxNorm: 613073 1 Tablet(s) PO QD 09/02/2013 0 11/28/2013 Inactive Zithromax 500 mg tablet RxNorm: 485877 1 Tablet(s) PO QD 07/29/2013 0 08/04/2013 Inactive prednisone 20 mg tablet RxNorm: 068336 1 Tablet(s) PO QD 07/29/2013 0 08/02/2013 Inactive Synthroid 75 mcg tablet RxNorm: 129409 1 Tablet(s) PO Q D Patient wants it put on hold 05/14/2013 09/02/2013 Inactive Synthroid 75 mcg tablet RxNorm: 955450 1 Tablet(s) PO QD 05/01/2013 1 07/14/2012 Inactive Flagyl 500 mg tablet RxNorm: 210429 1 Tablet(s) PO BID 03/20/2013 Inactive Cipro 500 mg tablet RxNorm: 806266 1 Tablet(s) PO QD 03/20/201304/02 Inactive levothyroxine 75 mcg tablet RxNorm: 795384 1 Tablet(s) PO QD 201205/03/2013 Inactive Septra DS 800 mg-160 mg tablet RxNorm: 554605 1 Tablet(s) PO BI D antibiotic 11/05/2012 11/09/2012 Inactive Bystolic 5 mg tablet RxNorm: 852240 1 Tablet(s) PO QD 10/10/201208/2018 Inactive Bystolic 5 mg tablet RxNorm: 065420 1 Tablet(s) PO QD 10/10/201202/2013 Inactive Protonix 40 mg tablet,delayed release RxNorm: 506016 1 Tablet(s ) PO QD 09/24/2012 09/18/2013 Inactive Synthroid 75 mcg tablet RxNorm: 969100 1 Tablet(s) PO QD 08/01/2012 0 09/23/2012 Inactive Synthroid 75 mcg tablet RxNorm: 661406 1 Tablet(s) PO QD Brand name only 07/03/2012 07/31/2012 Inactive Skelaxin 800 mg tablet RxNorm: 349027 1 Tablet(s) PO TID prn spasm 05/02/2012 03/04/2014 Inactive Zithromax Z-Leonel 250 mg tablet RxNorm: 285990 Tablet(s) PO As Di rected 04/12/2012 05/01/2012 Inactive levothyroxine 75 mcg tablet RxNorm: 461535 1 Tablet(s) PO QD 201108/05/2018 Inactive levothyroxine 75 mcg tablet RxNorm: 935558 1 Tablet(s) PO QD 201107/01/2012 Inactive Ultram 50 mg tablet RxNorm: 485936 1-2 Tablet(s) PO TID as need ed for migraine 04/03/2012 11/03/2014 Inactive Vimovo 500 mg-20 mg tablets,immediate & delayed release RxNo rm: 034882 1 Tablet(s) PO BID for pain 03/28/2012 07/25/2012 Inactive levothyroxine 75 mcg tablet RxNorm: 347041 1 Tablet(s) PO QD 201104/02/2012 Inactive levothyroxine 50 mcg tablet RxNorm: 104119 1 Tablet(s) PO QD 201109/23/2012 Inactive levothyroxine 50 mcg tablet RxNorm: 762730 1 Tablet(s) PO QD 201101/31/2012 Inactive Septra DS 800 mg-160 mg Tab RxNorm: 698247 1 Tablet(s) PO BID 11/2111/26/2011 Inactive mupirocin 2 % Ointment RxNorm: 974764 1 Application TOP TID 012 11/28/2011 Inactive Protonix 40 mg tablet,delayed release RxNorm: 129363 1 Tablet(s ) PO QD 09/13/2011 09/24/2012 Inactive hydrocodone-acetaminophen 5 mg-500 mg Tab RxNorm: 891698 1 Tablet(s) PO Q4-6H as needed for pain 07/13/2011 11/21/2011 Inactive Skelaxin 800 mg tablet RxNorm: 958289 1 Tablet(s) PO TID prn spasm 06/30/2011 11/21/2011 Inactive Skelaxin 800 mg Tab RxNorm: 906902 1 Tablet(s) PO TID prn spasm No Stop Date Active potassium chloride ER 10 mEq Cap RxNorm: 3255661 2 Capsule(s) PO QD 12/30/2010 01/30/2011 Inactive potassium chloride ER 10 mEq Cap RxNorm: 2866953 1 Capsule(s) PO QD 12/29/2010 12/29/2010 Inactive Take 2 tablets by mouth on M on, Monday, Monday and 1 tablet by mouth on Monday, , Monday and Monday Premarin 0.9 mg Tab RxNorm: 210093 1 Tablet(s) PO QD 12/09/201001/07 Inactive potassium chloride ER 10 mEq Cap RxNorm: 1841877 1 Capsule(s) PO QD 12/07/2010 No Stop Date Active Take 2 tablets by mouth on M on, Monday, Monday and 1 tablet by mouth on Monday, , Monday and Matt promethazine 12.5 mg Rectal Suppository RxNorm: 645154 1 Applic ation RTL Q6-8H 12/07/2010 12/16/2010 Inactive prn nausea and vomit ing potassium chloride ER 10 mEq Cap RxNorm: 5383878 1 Capsule(s) PO QD 12/03/2010 No Stop Date Active MWF take 2 tablets daily. T nighat one tablet daily on other days. Protonix 40 mg Tab RxNorm: 711662 1 Tablet(s) PO QD 09/27/20102011 Inactive cefdinir 300 mg Cap RxNorm: 820589 2 Capsule(s) PO QD 08/05/201007/2010 Inactive cefdinir 300 mg Cap RxNorm: 323397 2 Capsule(s) PO QD 08/05/201008/03 Inactive Premarin 1.25 mg Tab RxNorm: 237481 1 Tablet(s) PO QD 06/14/201012/2010 Inactive lisinopril-hydrochlorothiazide 10 mg-12.5 mg Tab RxNorm: 284709 1 Tablet(s) PO 06/07/2010 11/04/2010 Inactive alprazolam 0.25 mg Tab RxNorm: 531840 1 Tablet(s) PO TI D written script provided to patient. 05/24/2010 06/22/2010 Inactive Treximet 85 mg-500 mg Tab RxNorm: 329056 1 Tablet(s) PO PRN 010 09/23/2012 Inactive lisinopril-hydrochlorothiazide 20 mg-12.5 mg Tab RxNorm: 197 886 1 Tablet(s) PO QD 05/12/2010 11/04/2010 Inactive alprazolam 0.25 mg Tab RxNorm: 726519 1 Tablet(s) PO TI D written script provided to patient. 04/19/2010 05/23/2010 Inactive Macrobid 100 mg Cap RxNorm: 2075071 1 Capsule(s) PO BID 04/08/2010 Inactive Premarin 1.25 mg Tab RxNorm: 774984 1 Tablet(s) PO QD 03/22/201002/2011 Inactive Amitriptyline 10 mg Tab RxNorm: 526667 1 Tablet(s) PO QD 03/22/2010 0 06/19/2010 Inactive Protonix 40 mg Tab RxNorm: 572019 1 Tablet(s) PO QD 03/22/20102010 Inactive alprazolam 0.25 mg Tab RxNorm: 523106 1 Tablet(s) PO TID 03/10/2010 1 06/08/2009 Inactive Macrobid 100 mg Cap RxNorm: 2997486 1 Capsule(s) PO QD 03/09/2010 Inactive Bystolic 5 mg Tab RxNorm: 269885 1 Tablet(s) PO QD Fi ll at 30 if insurance will not accept 03/01/2010 11/04/2010 Inactive Protonix 40 mg Tab RxNorm: 225269 1 Tablet(s) PO QD 11/23/20092009 Inactive Premarin 1.25 mg Tab RxNorm: 181598 1 Tablet(s) PO QD 11/23/200912/03 Inactive Bentyl 10 mg Cap RxNorm: 441375 1 Capsule(s) PO QID 11/23/20092010 Inactive Elavil 10 mg Tab RxNorm: 004578 1 Tablet(s) PO QPM 11/19/2009 011 Inactive Cranberry Concentrate capsule RxNorm: 1 Capsule(s) PO QD No Start Date Active Estrace 0.01% (0.1 mg/gram) vaginal cream RxNorm: 508495 1 Application VAG weekly No Start Date Active Xyzal 5 mg tablet RxNorm: 284774 1 Tablet(s) PO QD No Start Date Active Protonix 40 mg tablet,delayed release RxNorm: 335855 1 Tablet(s ) PO QD No Start Date Active fluticasone propionate 50 mcg/actuation nasal spray,suspensi on RxNorm: 2747019 2 [place] NASAL QD No Start Date Active Vitamin D3 2,000 unit tablet RxNorm: 604299 1 Tablet(s) PO QD No Star t Date Active levothyroxine 50 mcg tablet RxNorm: 049660 1 Tablet(s) PO QD No Start Date Active BIOFREEZE Top RxNorm: Topical No Start Date Active multivitamin chewable tablet RxNorm: 1 Tablet(s) PO QD No Start Date Active Estring 2 mg vaginal RxNorm: 127560 VAG Insert vaginall y and remove after 90 days No Start Date 05/26/2014 Inactive Premarin 0.625 mg tablet RxNorm: 558413 1 Tablet(s) PO QD No Start Date 04/07/2014 Inactive Miralax 17 gram/dose oral powder RxNorm: 453915 1 capful PO QD No S tart Date 08/05/2018 Inactive diazepam 5 mg tablet RxNorm: 409798 2 Tablet(s) PO before MRI No St art Date 10/03/2018 Inactive Protonix 40 mg tablet,delayed release RxNorm: 671728 1 Tablet(s ) PO QD No Start Date 07/26/2015 Inactive B12 sublingual RxNorm: 77450 sublingual No Start Date 03/27/2017 Inact adrian Treximet 85 mg-500 mg Tab RxNorm: 072344 Tablet(s) PO PRN No Start Date 05/11/2010 Inactive Gemma 180 mg Tab RxNorm: 673202 1 Tablet(s) PO QD No Start Date Inactive Gemma Allergy 180 mg tablet RxNorm: 592693 1 Tablet(s) PO QD No S tart Date 08/31/2014 Inactive estradiol 0.01% (0.1 mg/gram) vaginal cream RxNorm: 862096 1 Gram(s) VAG Insert vaginally at bedtime, Monday, Monday and Monday No Start Date 5 Inactive Tylenol Ex Str Arthritis Pain 500 mg tablet RxNorm: 929215 2 Ta blet(s) PO TID No Start Date 08/05/2018 Inactive Toprol XL 25 mg tablet,extended release RxNorm: 731435 1 Tablet (s) PO QD No Start Date 11/30/2014 Inactive Ultram 50 mg tablet RxNorm: 113172 1-2 Tablet(s) PO TID as need ed for migraine No Start Date 04/02/2012 Inactive Premarin 0.9 mg Tab RxNorm: 972610 1 Tablet(s) PO QD No Start Date Inactive Bystolic 5 mg Tab RxNorm: 185058 1/2 Tablet(s) PO QD No Start Date Inactive Ondansetron HCl 4 mg Tab RxNorm: 802011 1 Tablet(s) PO TID or every 8hrs as needed for nausea No Start Date 11/21/2011 Inactive Protonix 40 mg tablet,delayed release RxNorm: 364180 1 Tablet(s ) PO BID No Start Date 12/24/2014 Inactive potassium chloride ER 10 mEq Cap RxNorm: 4626135 1 Capsule(s) PO QD No Start Date 12/02/2010 Inactive Miralax 17 gram/dose oral powder RxNorm: 039585 1 capful PO QD No S tart Date 03/29/2015 Inactive levothyroxine 75 mcg tablet RxNorm: 383480 1 Tablet(s) PO QD si x days a week No Start Date 12/24/2014 Inactive Cenestin 1.25 mg Tab RxNorm: 958988 1 Tablet(s) PO QD No Start Date 0 01/03/2010 Inactive calcium-vitamin D3 500 mg oral wafer RxNorm: 1 Tablet(s) PO QD No Start Date 12/08/2015 Inactive Vimovo 500 mg-20 mg tablet,immediate & delayed release RxNor m: 585290 1 Tablet(s) PO QD No Start Date 11/03/2014 Inactive alprazolam 0.25 mg tablet RxNorm: 714094 1 Tablet(s) PO Q8H as needed for anxiety/stress No Start Date 12/24/2014 Inactive betamethasone dipropionate 0.05 % topical cream RxNorm: 2389 20 1 Application TOP QHS No Start Date 03/27/2017 Inactive meloxicam 15 mg tablet RxNorm: 732896 1 Tablet(s) PO QD as needed N o Start Date 04/11/2019 Inactive cetirizine 10 mg capsule RxNorm: 4064831 1 Capsule(s) PO QD No Star t Date 09/10/2017 Inactive Skelaxin 800 mg Tab RxNorm: 475227 Tablet(s) PO PRN No Start Date Inactive Zithromax Z-Leonel 250 mg tablet RxNorm: 295474 Tablet(s) PO As Di rected No Start Date 04/11/2012 Inactive Zithromax Z-Leonel 250 mg Tab RxNorm: 763943 Tablet(s) PO as direc sheridan No Start Date 11/15/2010 Inactive Gemma 180 mg tablet RxNorm: 107851 1 Tablet(s) PO QD No Start Date 12/24/2014 Inactive Anusol-HC 2.5 % Rectal Cream RxNorm: 625132 Application RTL BID for 1wk No Start Date 12/19/2011 Inactive metoprolol succinate ER 25 mg 24 hr Tab RxNorm: 883897 1/2 Tabl et(s) PO QD No Start Date 10/03/2012 Inactive clotrimazole-betamethasone 1 %-0.05 % Lotion RxNorm: 897111 Application TOP BID to rash No Start Date 05/15/2011 Inactive ranitidine 150 mg tablet RxNorm: 297885 1 Tablet(s) PO QD No Start Date 12/06/2018 Inactive ranitidine 150 mg tablet RxNorm: 592758 1 Tablet(s) PO BID No Start Date 11/10/2016 Inactive promethazine 12.5 mg Rectal Suppository RxNorm: 757767 1 Applic ation RTL Q6-8H No Start Date 12/06/2010 Inactive Maxalt-UNIT LEADER 10 mg disintegrating tablet RxNorm: 432946 1 Tablet(s) PO at headache onset--may repeat in 2hrs if needed No Start Date 12/24/2014 Inactive Benadryl 25 mg capsule RxNorm: 1411838 Capsule(s) PO as needed No S tart Date 12/24/2014 Inactive Cranberry Concentrate 500 mg capsule RxNorm: 236825 1 Capsule(s ) PO QD No Start Date 09/10/2017 Inactive Mobic 15 mg tablet RxNorm: 036634 1 Tablet(s) PO on opposite da ys of Aleve No Start Date 11/20/2018 Inactive Bystolic 5 mg tablet RxNorm: 312971 1 Tablet(s) PO QD No Start Date 0 10/09/2012 Inactive Premarin 1.25 mg Tab RxNorm: 723039 1 Tablet(s) PO QD No Start Date 1 Inactive clotrimazole-betamethasone 1 %-0.05 % topical cream RxNorm: 172126 Application TOP BID to rash prn--was supposed to be cream not lotion No Start Date 12/19/2011 Inactive azithromycin 250 mg Tab RxNorm: 699172 2 Tablet(s) PO Q D take 2 tablets (500 mg) by oral route once daily for 1 day then 1 tablet (250 mg) by oral route once daily for 4 days No Start Date 06/06/2010 Inactive hydrocodone-acetaminophen 5 mg-500 mg Tab RxNorm: 805915 1 Tablet(s) PO Q4-6H as needed for pain No Start Date 07/12/2011 Inactive Levbid 0.375 mg 12 hr Tab RxNorm: 8433561 1 Tablet(s) PO BID as needed for stomach cramping No Start Date 11/21/2011 Inactive Phenergan 25 mg rectal suppository RxNorm: 311797 1 Sup pository RTL Q4H as needed for nausea and vomiting No Start Date 07/19/2015 Inactive baclofen 10 mg tablet RxNorm: 157479 1 Tablet(s) PO QHS No Start Da te 11/03/2014 Inactive loratadine 10 mg tablet RxNorm: 617548 1 Tablet(s) PO QD No Start D ate 10/03/2018 Inactive famotidine 40 mg tablet RxNorm: 936698 1 Tablet(s) PO BID No Start Date 06/22/2016 Inactive Zithromax Z-Leonel 250 mg Tab RxNorm: 440973 Tablet(s) PO as direc sheridan No Start Date 11/15/2010 Inactive Singulair 10 mg tablet RxNorm: 656122 1 Tablet(s) PO QHS No Start D ate 07/10/2017 Inactive Premarin 0.625 mg/g Vaginal Cream RxNorm: 374770 1 Gram (s) VAG QHS 2-3 times weekly No Start Date 01/05/2011 Inactive Alprazolam 0.25 mg Tab RxNorm: 809428 1 Tablet(s) PO TID No Start D ate 03/09/2010 Inactive Claritin 10 mg tablet RxNorm: 345281 1 Tablet(s) PO QD No Start Date [...] Result Date S ervice Location GFR CALC 9021394 GFR AA >60 ML/MIN 01/14/2011 Unknown GFR CALC 1013347 GFR NON-AA >60 ML/MIN 01/14/2011 Unknown COMPREHENSIVE METABOLIC 87996 AST 15 U/L 2010 Unknown COMPREHENSIVE METABOLIC 52661 ALT 17 IU/L 2010 Unknown COMPREHENSIVE METABOLIC 23086 BUN 12 MG/DL 2010 Unknown COMPREHENSIVE METABOLIC 86280 ALBUMIN 4.0 GM/DL 2010 Unknown COMPREHENSIVE METABOLIC 34582 CHLORIDE 101 MMOL/L 01/14 Unknown COMPREHENSIVE METABOLIC 61117 BILI TOT 0.3 MG/DL 2010 Unknown COMPREHENSIVE METABOLIC 73693 ALK PHOS 53 U/L 2010 Unknown COMPREHENSIVE METABOLIC 23535 SODIUM 136 MMOL/L 01/14 Unknown COMPREHENSIVE METABOLIC 16071 CREATININE 0.60 MG/DL 01/03 Unknown COMPREHENSIVE METABOLIC 78320 CALCIUM 9.3 MG/DL 2010 Unknown COMPREHENSIVE METABOLIC 67345 POTASSIUM 4.1 MMOL/L 01/14 Unknown COMPREHENSIVE METABOLIC 91014 PROT TOT 7.0 GM/DL 2010 Unknown COMPREHENSIVE METABOLIC 87431 Glucose 92 MG/DL 2010 Unknown COMPREHENSIVE METABOLIC 58862 BICARB 27 MMOL/L 2010 Unknown COMPREHENSIVE METABOLIC 93384 ANION GAP 8 MEQ/L 2010 Unknown ERYTHROCYTE SEDIMENTATION RATE 50503 ESR 39 MM/HR 01/05/2011 Unknown COMPREHENSIVE METABOLIC 63216 AST 16 U/L 2010 Unknown COMPREHENSIVE METABOLIC 06331 ALT 19 U/L 2010 Unknown COMPREHENSIVE METABOLIC 91442 BUN 15 MG/DL 2010 Unknown COMPREHENSIVE METABOLIC 54153 ALBUMIN 3.8 GM/DL 2010 Unknown COMPREHENSIVE METABOLIC 18668 CHLORIDE 101 MMOL/L 01/05 Unknown COMPREHENSIVE METABOLIC 68449 BILI TOT 0.3 MG/DL 2010 Unknown COMPREHENSIVE METABOLIC 74981 ALK PHOS 55 U/L 2010 Unknown COMPREHENSIVE METABOLIC 95027 SODIUM 139 MMOL/L 01/05 Unknown COMPREHENSIVE METABOLIC 29930 CREATININE 0.59 MG/DL 08/2010 Unknown COMPREHENSIVE METABOLIC 56237 CALCIUM 8.9 MG/DL 2010 Unknown COMPREHENSIVE METABOLIC 22175 POTASSIUM 3.8 MMOL/L 01/05 Unknown COMPREHENSIVE METABOLIC 21507 PROT TOT 6.7 GM/DL 2010 Unknown COMPREHENSIVE METABOLIC 50551 Glucose 121 MG/DL 2010 Unknown COMPREHENSIVE METABOLIC 41371 BICARB 28 MMOL/L 2010 Unknown COMPREHENSIVE METABOLIC 22331 ANION GAP 10 MMOL/L 2010 Unknown GFR CALC 7407989 GFR AA >60 ML/MIN 01/05/2011 Unknown GFR CALC 5164638 GFR NON-AA >60 ML/MIN 01/05/2011 Unknown COMPLETE BLOOD COUNT 04279 WBC 8.7 10e9/L 01/06/20 11 Unknown COMPLETE BLOOD COUNT 98889 RBC 4.78 10e12/L 2010 Unknown COMPLETE BLOOD COUNT 66869 HGB 13.3 g/dL 1 Unknown COMPLETE BLOOD COUNT 40670 HCT DET 40.6 % 1 Unknown COMPLETE BLOOD COUNT 77260 MCV 84.9 fL 1 Unknown COMPLETE BLOOD COUNT 33804 MCH 27.8 pg 1 Unknown COMPLETE BLOOD COUNT 91040 MCHC 32.8 g/dL 1 Unknown COMPLETE BLOOD COUNT 61495 PLT 273 10e9/L 01/06/20 11 Unknown COMPLETE BLOOD COUNT 58333 MPV 9.8 fL 1 Unknown COMPLETE BLOOD COUNT 89440 AMANDA % 65.9 % 1 Unknown COMPLETE BLOOD COUNT 74636 LY % 24.5 % 1 Unknown COMPLETE BLOOD COUNT 25132 MON % 6.9 % 1 Unknown COMPLETE BLOOD COUNT 05281 EOS % 2.1 % 1 Unknown COMPLETE BLOOD COUNT 19372 BASO % 0.6 % 1 Unknown COMPLETE BLOOD COUNT 50114 RDW 14.7 % 1 Unknown COMPLETE BLOOD COUNT 60264 ABS AMANDA 5.73 10e9/L 011 Unknown COMPLETE BLOOD COUNT 64487 ABS LYMPH 2.13 10e9/L 011 Unknown COMPLETE BLOOD COUNT 76162 ABS MONO 0.60 10e9/L 011 Unknown COMPLETE BLOOD COUNT 79257 ABS EOS 0.18 10e9/L 011 Unknown COMPLETE BLOOD COUNT 33665 ABS BASO 0.05 10e9/L 011 Unknown COMPLETE BLOOD COUNT 44334 RDW-SD 44.7 fL 1 Unknown NO UA [id number] NO UA CANCELED 07/08/2010 Unknown Procedures Procedure Codes Date URINALYSIS NONAUTO W/O SCOPE CPT-4: 02671 04/12/2019 URINE CULTURE/ COLONY COUNT CPT-4: 34345 04/12/2019 URINE CULTURE/ COLONY COUNT CPT-4: 84926 01/14/2019 URINALYSIS NONAUTO W/O SCOPE CPT-4: 84111 01/14/2019 INITIAL PREVENTIVE EXAM CPT-4: G0402 11/21/2018 URINALYSIS NONAUTO W/O SCOPE CPT-4: 27975 11/01/2018 URINE CULTURE/ COLONY COUNT CPT-4: 26644 11/01/2018 URINE CULTURE/ COLONY COUNT CPT-4: 83908 06/13/2018 URINALYSIS NONAUTO W/O SCOPE CPT-4: 18655 05/31/2018 URINE CULTURE/ COLONY COUNT CPT-4: 30942 05/31/2018 IIV4 VACCINE 3 YRS+ IM AND UP CPT-4: 36048 03/22/2018 IMMUNIZATION ADMIN CPT-4: 40005 03/22/2018 TDAP VACCINE 7 YRS/> IM CPT-4: 18208 12/28/2017 IMMUNIZATION ADMIN CPT-4: 81453 12/28/2017 SHINGRIX HZV VACC RECOMBINANT IM CPT-4: 20196 018 IMMUNIZATION ADMIN CPT-4: 90563 10/04/2017 IIV4 VACCINE 3 YRS+ IM AND UP CPT-4: 84376 03/28/2017 IMMUNIZATION ADMIN CPT-4: 25131 03/28/2017 INFLUENZA ASSAY W/OPTIC CPT-4: 04697 09/12/2016 FLU VACCINE 3 YRS & > IM UP 64 CPT-4: 83482 6 IMMUNIZATION ADMIN CPT-4: 46918 04/22/2016 OCCULT BLOOD FECES CPT-4: 43014 01/04/2016 THER/PROPH/DIAG INJ SC/IM CPT-4: 47931 07/20/2015 PROMETHAZINE HCL INJECTION CPT-4: J2550 07/20/2015 FLU VACCINE 3 YRS & > IM UP 64 CPT-4: 91421 5 IMMUNIZATION ADMIN CPT-4: 93085 03/09/2015 URINALYSIS NONAUTO W/O SCOPE CPT-4: 67225 07/10/2014 URINE CULTURE/ COLONY COUNT CPT-4: 43701 07/10/2014 URINE CULTURE/ COLONY COUNT CPT-4: 42739 07/14/2011 URINALYSIS NONAUTO W/O SCOPE CPT-4: 86320 07/14/2011 FLU VACCINE 3 YRS & > IM UP 64 CPT-4: 25375 2 IMMUNIZATION ADMIN CPT-4: 99400 06/28/2011 URINALYSIS NONAUTO W/O SCOPE CPT-4: 98414 03/23/2011 URINE CULTURE/ COLONY COUNT CPT-4: 53508 03/23/2011 ROUTINE VENIPUNCTURE CPT-4: 01164 01/14/2011 COMPREHEN METABOLIC PANEL CPT-4: 41695 01/14/2011 ROUTINE VENIPUNCTURE CPT-4: 61871 01/05/2011 COMPLETE CBC W/AUTO DIFF WBC CPT-4: 80712 01/05/2011 RBC SED RATE AUTOMATED CPT-4: 60392 01/05/2011 COMPREHEN METABOLIC PANEL CPT-4: 00481 01/05/2011 URINALYSIS NONAUTO W/O SCOPE CPT-4: 89276 11/16/2010 URINE CULTURE/ COLONY COUNT CPT-4: 33777 11/16/2010 DRAIN/INJECT JOINT/BURSA CPT-4: 06969 11/04/2010 TRIAMCINOLONE ACET INJ NOS CPT-4: J3301 11/04/2010 METHYLPREDNISOLONE 80 MG INJ CPT-4: J1040 11/04/2010 URINALYSIS NONAUTO W/O SCOPE CPT-4: 00935 07/05/2010 URINE CULTURE/ COLONY COUNT CPT-4: 54153 07/05/2010 URINALYSIS NONAUTO W/O SCOPE CPT-4: 97568 06/28/2010 URINE CULTURE/ COLONY COUNT CPT-4: 72112 06/28/2010 URINALYSIS NONAUTO W/O SCOPE CPT-4: 95849 06/14/2010 URINE CULTURE/ COLONY COUNT CPT-4: 88936 06/14/2010 URINE CULTURE/ COLONY COUNT CPT-4: 61130 04/19/2010 OCCULT BLOOD FECES CPT-4: 89980 04/12/2010 URINALYSIS NONAUTO W/O SCOPE CPT-4: 02491 04/08/2010 URINE CULTURE/ COLONY COUNT CPT-4: 43264 04/08/2010 ASSAY, GLUCOSE, BLOOD QUANT CPT-4: 48363 03/09/2010 URINALYSIS NONAUTO W/O SCOPE CPT-4: 52769 03/09/2010 FLU VACCINE 3 YRS & > IM UP 64 CPT-4: 79377 0 IMMUNIZATION ADMIN CPT-4: 90348 03/09/2010 URINALYSIS NONAUTO W/O SCOPE CPT-4: 20047 09/29/2009 URINALYSIS NONAUTO W/O SCOPE CPT-4: 90454 08/12/2009 Vital Signs Date Vital 04/12/2019 Blood [...] 1: 130/70 Code: 8480-6 BMI: 29.6 Code: 59841-1 Heart Rate 1: 76 bpm Height: 5'2" [...] 1: 126/62 Code: 8480-6 BMI: 29.6 Code: 72178-4 Heart Rate 1: 88 bpm Height: 5'3" Respiratory Rate: 20 bpm Temperature: 36 .8 (C) / 98.3 (F) Weight: 167 lbs 05/31/2018 Blood Pressure 1: 140/80 Code: 8480-6 Heart Rate 1: 74 bpm Respiratory Rate: 16 bpm SpO2: 97% Temperature: 36.3 (C) / 97.3 (F) We ight: 165 lbs 02/06/2018 Blood Pressure 1: 124/78 Code: 8480-6 BMI: 29.8 Code: 48041-8 Heart Rate 1: 84 bpm Height: 5'3" Respiratory Rate: 20 bpm SpO2: 97% Tempera ture: 36.6 (C) / 97.8 (F) Weight: 168 lbs 12/18/2017 Blood Pressure 1: 116/78 Code: 8480-6 BMI: 29.6 Code: 51951-4 Heart Rate 1: 88 bpm Height: 5'3" Respiratory Rate: 20 bpm Temperature: 36 .6 (C) / 97.9 (F) Weight: 167 lbs 12/11/2017 Blood Pressure 1: 122/76 Code: 8480-6 He art Rate 1: 78 bpm 09/11/2017 Blood Pressure 1: 126/82 Code: 8480-6 BMI: 29.1 Code: 12168-2 Heart Rate 1: 68 bpm Height: 5'3" Respiratory Rate: 20 bpm SpO2: 96% Tempera ture: 36.6 (C) / 97.9 (F) Weight: 164 lbs 03/28/2017 Blood Pressure 1: 114/64 Code: 8480-6 BMI: 27.8 Code: 71873-4 Heart Rate 1: 76 bpm Height: 5'3" Respiratory Rate: 20 bpm SpO2: 98% Tempera ture: 36.4 (C) / 97.6 (F) Weight: 157 lbs 09/12/2016 Blood Pressure 1: 126/70 Code: 8480-6 BMI: 29.9 Code: 79540-3 Heart Rate 1: 92 bpm Height: 5'3" Respiratory Rate: 20 bpm SpO2: 97% Tempera ture: 37.0 (C) / 98.6 (F) Weight: 168 lbs 9 oz 07/28/2016 Blood Pressure 1: 128/74 Code: 8480-6 Heart Rate 1: 92 bpm Respiratory Rate: 24 bpm SpO2: 96% Temperature: 36.4 (C) / 97.6 (F) We ight: 168 lbs 04/26/2016 Blood Pressure 1: 116/74 Code: 8480-6 BMI: 29.9 Code: 23422-5 Heart Rate 1: 92 bpm Height: 5'3" Respiratory Rate: 20 bpm Temperature: 36 .9 (C) / 98.4 (F) Weight: 169 lbs 12/09/2015 Blood Pressure 1: 116/72 Code: 8480-6 BMI: 31.7 Code: 18931-5 Heart Rate 1: 80 bpm Height: 5'3" Respiratory Rate: 20 bpm Temperature: 36 .6 (C) / 97.9 (F) Weight: 179 lbs 09/10/2015 Blood Pressure 1: 122/78 Code: 8480-6 BMI: 32.2 Code: 52218-2 Heart Rate 1: 88 bpm Height: 5'3" Respiratory Rate: 20 bpm Temperature: 37 .3 (C) / 99.1 (F) Weight: 182 lbs 04/23/2015 Blood Pressure 1: 126/70 Code: 8480-6 BMI: 31.2 Code: 55040-1 Heart Rate 1: 92 bpm Height: 5'3" Respiratory Rate: 20 bpm Temperature: 36 .8 (C) / 98.2 (F) Weight: 176 lbs 03/24/2015 Blood Pressure 1: 126/78 Code: 8480-6 BMI: 31.2 Code: 82743-0 Heart Rate 1: 80 bpm Height: 5'3" Respiratory Rate: 22 bpm Temperature: 36 .1 (C) / 96.9 (F) Weight: 176 lbs 03/05/2015 Blood Pressure 1: 132/80 Code: 8480-6 BMI: 31.5 Code: 82405-2 Heart Rate 1: 92 bpm Height: 5'2" Respiratory Rate: 20 bpm Temperature: 36 .4 (C) / 97.6 (F) Weight: 175 lbs 02/19/2015 Blood Pressure 1: 134/80 Code: 8480-6 BMI: 31.5 Code: 24260-6 Heart Rate 1: 88 bpm Height: 5'2" Respiratory Rate: 20 bpm Temperature: 36 .7 (C) / 98.0 (F) Weight: 175 lbs 12/25/2014 Blood Pressure 1: 122/80 Code: 8480-6 BMI: 31.0 Code: 21934-7 Heart Rate 1: 88 bpm Height: 5'2" Respiratory Rate: 20 bpm Temperature: 36 .6 (C) / 97.8 (F) Weight: 172 lbs 11/26/2014 Blood Pressure 1: 116/68 Code: 8480-6 BMI: 30.2 Code: 23843-9 Heart Rate 1: 76 bpm Height: 5'2" Respiratory Rate: 20 bpm Temperature: 36 .5 (C) / 97.7 (F) Weight: 168 lbs 11/04/2014 Blood Pressure 1: 116/64 Code: 8480-6 BMI: 30.8 Code: 42299-0 Heart Rate 1: 92 bpm Height: 5'2" Respiratory Rate: 20 bpm Temperature: 36 .7 (C) / 98.1 (F) Weight: 171 lbs 09/01/2014 Blood Pressure 1: 130/82 Code: 8480-6 BMI: 30.6 Code: 90930-4 Heart Rate 1: 92 bpm Height: 5'2" Respiratory Rate: 20 bpm Temperature: 36 .9 (C) / 98.4 (F) Weight: 170 lbs 06/02/2014 Blood Pressure 1: 126/80 Code: 8480-6 BMI: 30.2 Code: 17941-9 Heart Rate 1: 88 bpm Height: 5'2" Respiratory Rate: 20 bpm Temperature: 36 .7 (C) / 98.1 (F) Weight: 168 lbs 05/26/2014 Blood Pressure 1: 132/78 Code: 8480-6 He art Rate 1: 74 bpm 04/08/2014 Blood Pressure 1: 156/94 Code: 8480-6 BMI: 30.2 Code: 16816-6 Heart Rate 1: 96 bpm Height: 5'2" Respiratory Rate: 20 bpm Temperature: 37 .1 (C) / 98.7 (F) Weight: 168 lbs 03/05/2014 Blood Pressure 1: 144/86 Code: 8480-6 BMI: 29.9 Code: 84926-9 Heart Rate 1: 100 bpm Height: 5'2" Respiratory Rate: 20 bpm Temperature: 36 .7 (C) / 98.1 (F) Weight: 166 lbs 07/29/2013 Blood Pressure 1: 124/80 Code: 8480-6 Heart Rate 1: 92 bpm Respiratory Rate: 20 bpm Temperature: 36.2 (C) / 97.2 (F) Weight: 167 lbs 03/20/2013 Blood Pressure 1: 116/84 Code: 8480-6 BMI: 30.8 Code: 22199-0 Heart Rate 1: 96 bpm Height: 5'3" Respiratory Rate: 20 bpm Temperature: 36 .6 (C) / 97.8 (F) Weight: 174 lbs 02/12/2013 Blood Pressure 1: 122/80 Code: 8480-6 BMI: 30.5 Code: 55713-1 Heart Rate 1: 112 bpm Height: 5'3" Respiratory Rate: 20 bpm Temperature: 36 .9 (C) / 98.4 (F) Weight: 172 lbs 11/05/2012 BMI: 31.2 Code: 36122-8 Height: 5'3" Weight: 176 lbs 10/04/2012 Heart Rate 1: 84 bpm Height: 5'3" Respiratory Rate: 20 bpm Temperature: 36.8 (C) / 98.3 (F) Weight: 09/24/2012 Blood Pressure 1: 122/88 Code: 8480-6 BMI: 30.8 Code: 17097-4 Heart Rate 1: 80 bpm Height: 5'3" Respiratory Rate: 20 bpm Temperature: 36 .8 (C) / 98.2 (F) Weight: 174 lbs 05/10/2012 Blood Pressure 1: 124/68 Code: 8480-6 BMI: 30.1 Code: 78172-1 Heart Rate 1: 64 bpm Height: 5'3" Temperature: 36.6 (C) / 97.8 (F) Weight: 170 lbs 03/07/2012 Blood Pressure 1: 132/78 Code: 8480-6 BMI: 29.2 Code: 60555-2 Heart Rate 1: 92 bpm Height: 5'3" Respiratory Rate: 20 bpm Temperature: 36 .7 (C) / 98.1 (F) Weight: 165 lbs 02/01/2012 Blood Pressure 1: 116/78 Code: 8480-6 BMI: 29.1 Code: 19239-5 Heart Rate 1: 84 bpm Height: 5'3" Respiratory Rate: 20 bpm Temperature: 36 .8 (C) / 98.2 (F) Weight: 164 lbs 12/20/2011 Blood Pressure 1: 128/80 Code: 8480-6 BMI: 29.1 Code: 09270-2 Heart Rate 1: 88 bpm Height: 5'3" Respiratory Rate: 20 bpm Temperature: 36 .4 (C) / 97.6 (F) Weight: 164 lbs 11/22/2011 Blood Pressure 1: 104/60 Code: 8480-6 BMI: 28.5 Code: 80673-6 Heart Rate 1: 78 bpm Height: 5'3" Temperature: 36.6 (C) / 97.9 (F) Weight: 161 lbs 07/11/2011 Blood Pressure 1: 118/72 Code: 8480-6 BMI: 30.6 Code: 47228-6 Heart Rate 1: 92 bpm Height: 5'3" Respiratory Rate: 20 bpm Temperature: 36 .8 (C) / 98.2 (F) Weight: 173 lbs 07/06/2011 Blood Pressure 1: 126/80 Code: 8480-6 BMI: 31.0 Code: 16157-9 Heart Rate 1: 88 bpm Height: 5'3" Respiratory Rate: 20 bpm Temperature: 36 .7 (C) / 98.1 (F) Weight: 175 lbs 05/26/2011 Blood Pressure 1: 100/78 Code: 8480-6 BMI: 31.0 Code: 03144-4 Heart Rate 1: 74 bpm Height: 5'3" Temperature: 36.4 (C) / 97.6 (F) Weight: 175 lbs 05/16/2011 Blood Pressure 1: 116/80 Code: 8480-6 BMI: 31.0 Code: 23303-3 Heart Rate 1: 88 bpm Height: 5'3" Respiratory Rate: 20 bpm Temperature: 36 .8 (C) / 98.2 (F) Weight: 175 lbs 05/05/2011 Blood Pressure 1: 126/80 Code: 8480-6 BMI: 30.6 Code: 44798-1 Heart Rate 1: 96 bpm Height: 5'3" Respiratory Rate: 20 bpm Temperature: 36 .4 (C) / 97.6 (F) Weight: 173 lbs 04/05/2011 Blood Pressure 1: 144/90 Code: 8480-6 BMI: 30.1 Code: 91241-3 Heart Rate 1: 92 bpm Height: 5'3" Respiratory Rate: 20 bpm Temperature: 36 .6 (C) / 97.8 (F) Weight: 170 lbs 03/02/2011 Blood Pressure 1: 136/94 Code: 8480-6 Heart Rate 1: 92 bpm Temperature: 36.6 (C) / 97.8 (F) Weight: 171 lbs 01/05/2011 Blood Pressure 1: 132/86 Code: 8480-6 BMI: 30.6 Code: 24379-0 Heart Rate 1: 98 bpm Height: 5'3" [...] 1: 122/68 Code: 8480-6 BMI: 29.8 Code: 64056-0 Height: 5'3" Temperature: 36.3 (C) / 97.4 [...] 1: 142/90 Code: 8480-6 BMI: 30.5 Code: 81328-0 Heart Rate 1: 96 bpm Height: 5'3" [...] 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 O AMNA [employer] CPT-4: 29249 04/12/2019 ([id number]) OFFICE/OUTPATIENT VISIT EST Diagnosis: Pain in thoracic spine[ICD10: M54.6] Diagnosis: Muscle spasm of back[ICD10: M62.830] Yaima GUEVARA [employer] CPT-4: 52490 01/16/2019 ([id number]) NURSE/OUTPATIENT VISIT EST Diagnosis: Low back pain[ICD10: M54.5] Diagnosis: Hematuria, unspecified[ICD10: R31.9] Yaima GUEVARA [employer] CPT-4: 39080 01/14/2019 ([id number]) OFFICE/OUTPATIENT VISIT EST Diagnosis: Left lower quadrant pain[ICD10: R10.32] Yaima CAMP SRobin [employer]OSUEND [employer] CPT-4: 04321 01/09/2019 ([id number]) NURSE/OUTPATIENT VISIT EST Diagnosis: Hematuria, unspecified[ICD10: R31.9] Yaima G[employer]VARA [employer] CPT-4: 82975 11/01/2018 ([id number]) OFFICE/OUTPATIENT VISIT EST Diagnosis: Hypothyroidism, unspecified[ICD10: E03.9] Diagnosis: Other fatigue[ICD10: R53.83] Diagnosis: Other cervical disc degeneration, unspecified cervical region[ICD10: M50.30] Yaima JOHNSON DO [facility] CPT-4: 73850 10/04/2018 ([id number]) OFFICE/OUTPATIENT VISIT EST Diagnosis: Hypothyroidism, unspecified[ICD10: E03.9] Diagnosis: Impaired fasting glucose[ICD10: R73.01] Diagnosis: Cervicalgia[ICD10: M54.2] Yaima TAYLOR [facility] CPT-4: 54006 08/06/2018 ([id number]) OFFICE/OUTPATIENT VISIT EST Diagnosis: Radiculopathy, lumbosacral region[ICD10: M54.17] Diagnosis: Abrasion, left lower leg, sequela[ICD10: S80.812S] Yaima JOHNSON DO [facility] CPT-4: 48609 06/21/2018 ([id number]) NURSE/OUTPATIENT VISIT EST Diagnosis: Urinary tract infection, site not specified[ICD10: N39.0] Yaima JOHNSON DO [facility] CPT-4: 92904 06/13/2018 ([id number]) OFFICE/OUTPATIENT VISIT EST Diagnosis: Other dorsalgia[ICD10: M54.89] Jane JOHNSON DO [facility] CPT-4: 55132 05/31/2018 ([id number]) NURSE/OUTPATIENT VISIT EST Diagnosis: FLU VACCINE[ICD10: Z23] Yaima EUGENE [facility] CPT-4: 67048 03/22/2018 ([id number]) OFFICE/OUTPATIENT VISIT EST Diagnosis: Hypothyroidism, unspecified[ICD10: E03.9] Diagnosis: Essential (primary) hypertension[ICD10: I10] Diagnosis: Other seasonal allergic rhinitis[ICD10: J30.2] Yaima JOHNSON DO [facility] CPT-4: 41935 02/06/2018 ([id number]) NURSE/OUTPATIENT VISIT EST Diagnosis: Laceration of blood vessel of right index finger, initial encounter[ICD10: S65.510A] Diagnosis: VACCINE FOR TDAP[ICD10: Z23] Yaima JOHNSON [facility] CPT-4: 62021 12/28/2017 ([id number]) OFFICE/OUTPATIENT VISIT EST Diagnosis: Tinnitus, bilateral[ICD10: H93.13] Yaima GAYTAN [facility] CPT-4: 93774 12/18/2017 ([id number]) NURSE/OUTPATIENT VISIT EST Diagnosis: VACCIN FOR DISEASE NEC (HPV or Zostavax)[ICD10: Z23] [facility] 51359 10/04/2017 OFFICE/OUTPATIENT VISIT EST Diagnosis: Hypothyroidism, unspecified[ICD10: E03.9] Diagnosis: Essential (primary) hypertension[ICD10: I10] Diagnosis: Gastro-esophageal reflux disease without esophagitis[ICD10: K21.9] Diagnosis: Pain in right knee[ICD10: M25.561] Diagnosis: Hyperglycemia, unspecified[ICD10: R73.9] [facility]: 85937 09/11/2017 ([id number]) OFFICE/OUTPATIENT VISIT EST Diagnosis: Cervicalgia[ICD10: M54.2] Diagnosis: Hypothyroidism, unspecified[ICD10: E03.9] Diagnosis: Essential (primary) hypertension[ICD10: I10] Diagnosis: Irritant contact dermatitis, unspecified cause[ICD10: L24.9] Diagnosis: FLU VACCINE[ICD10: Z23] Yaima EUGENE [facility] CPT-4: 96593 03/28/2017 ([id number]) OFFICE/OUTPATIENT VISIT EST Diagnosis: Influenza due to identified novel influenza A virus with other manifestations[ICD10: J09.X9] [facility]: 31820 09/12/2016 ([id number]) OFFICE/OUTPATIENT VISIT EST Diagnosis: Dermatitis, unspecified[ICD10: L30.9] Diagnosis: Pain in right knee[ICD10: M25.561] Yaima GAYTAN [employer] [facility] CPT-4: 70980 07/28/2016 ([id number]) OFFICE/OUTPATIENT VISIT EST Diagnosis: Incisional hernia without obstruction or gangrene[ICD10: K43.2] Diagnosis: Gastro-esophageal reflux disease without esophagitis[ICD10: K21.9] Diagnosis: Radiculopathy, lumbosacral region[ICD10: M54.17] Yaima JOHNSON DO [facility] CPT-4: 65584 04/26/2016 ([id number]) OFFICE/OUTPATIENT VISIT EST Diagnosis: FLU VACCINE[ICD10: Z23] Yaima EUGENE DO [facility] CPT-4: 10800 04/22/2016 ([id number]) OFFICE/OUTPATIENT VISIT EST Diagnosis: Other fecal abnormalities[ICD10: R19.5] Yaima JOHNSON DO [facility] CPT-4: 76196 01/04/2016 ([id number]) OFFICE/OUTPATIENT VISIT EST 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] Diagnosis: Other specified diseases of liver[ICD10: K76.89] Diagnosis: Irritant contact dermatitis due to detergents[ICD10: L24.0] Yaima JOHNSON DO [facility] CPT-4: 37674 12/09/2015 ([id number]) OFFICE/OUTPATIENT VISIT EST Diagnosis: Pain in thoracic spine[ICD10: M54.6] Diagnosis: Radiculopathy, lumbosacral region[ICD10: M54.17] Diagnosis: Precordial pain[ICD10: R07.2] Yaima JOHNSON DO [facility] CPT-4: 64239 09/10/2015 ([id number]) OFFICE/OUTPATIENT VISIT EST Diagnosis: Nausea[ICD10: R11.0] Yaima JOHNSON DO [facility] CPT-4: 59658 07/20/2015 ([id number]) OFFICE/OUTPATIENT VISIT EST Diagnosis: Pain in left elbow[ICD10: M25.522] Diagnosis: Contusion of left lower leg, sequela[ICD10: S80.12XS] Diagnosis: Pleurodynia[ICD10: R07.81] Yaima HOWELL [facility] CPT-4: 04569 04/23/2015 ([id number]) OFFICE/OUTPATIENT VISIT EST Diagnosis: Unspecified abdominal pain[ICD10: R10.9] Diagnosis: Ventral hernia without obstruction or gangrene[ICD10: K43.9] Diagnosis: Constipation, unspecified[ICD10: K59.00] Yaima JOHNSON DO [facility] CPT-4: 45264 03/24/2015 ([id number]) OFFICE/OUTPATIENT VISIT EST Diagnosis: FLU VACCINE[ICD10: Z23] Yaima EUGENE [facility] CPT-4: 94129 03/09/2015 ([id number]) OFFICE/OUTPATIENT VISIT EST 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] Diagnosis: Generalized abdominal pain[ICD10: R10.84] Yaima JOHSNON [facility] CPT-4: 75253 03/05/2015 OFFICE/OUTPATIENT VISIT EST Diagnosis: ABDOMINAL PAIN[ICD9: 789.00] Diagnosis: HYPOTHYROIDISM[ICD9: 244.9] Diagnosis: HYPERTENSION[ICD9: 401.9] Diagnosis: DIVERTICULITIS, COLONIC[ICD9: 562.11] Diagnosis: DISTURBANCE OF SKIN SENSATION (Paresthesia)[ICD9: 782.0] Yaima JOHNSON [facility] CPT-4: 07662 02/19/2015 ([id number]) OFFICE/OUTPATIENT VISIT EST Diagnosis: HYPOTHYROIDISM[ICD9: 244.9] Diagnosis: Diaphoresis[ICD9: 780.8] Yaima DUMONT [facility] CPT-4: 34014 12/25/2014 ([id number]) OFFICE/OUTPATIENT VISIT EST Diagnosis: ABDOMINAL PAIN[ICD9: 789.00] Diagnosis: PAIN, LOWER BACK[ICD9: 724.2] Diagnosis: Contusion of leg[ICD9: 924.5] Yaima JOHNSON [facility] CPT-4: 44424 11/26/2014 ([id number]) OFFICE/OUTPATIENT VISIT EST Diagnosis: IBS[ICD9: 564.1] Diagnosis: GERD[ICD9: 530.81] Yaima JOHNSON [facility] CPT-4: 10689 11/04/2014 ([id number]) OFFICE/OUTPATIENT VISIT EST Diagnosis: Headache[ICD9: 784.0] Diagnosis: Leg pain[ICD9: 729.5] Yaima JOHNSON DO [facility] CPT-4: 20900 09/01/2014 ([id number]) OFFICE/OUTPATIENT VISIT EST Diagnosis: DYSURIA[ICD9: 788.1] Yaima JOHNSON DO [facility] CPT-4: 79457 07/10/2014 OFFICE/OUTPATIENT VISIT EST Diagnosis: VAGINITIS[ICD9: 623.5] Diagnosis: SINUSITIS, ACUTE[ICD9: 461.9] Yaima JOHNSON DO [facility] CPT-4: 61254 06/02/2014 ([id number]) OFFICE/OUTPATIENT VISIT EST Diagnosis: HYPERTENSION[ICD9: 401.9] Diagnosis: ALLERGIC RHINITIS[ICD9: 477.9] Diagnosis: PAIN, LOWER BACK[ICD9: 724.2] Yaima JOHNSON DO [facility] CPT-4: 60007 04/08/2014 ([id number]) OFFICE/OUTPATIENT VISIT EST Diagnosis: COUGH[ICD10: R05] Diagnosis: Thoracic back pain[ICD9: 724.1] Yaima JOHNSON DO [facility] CPT-4: 59976 03/05/2014 ([id number]) OFFICE/OUTPATIENT VISIT EST Diagnosis: SINUSITIS, ACUTE[ICD9: 461.9] Diagnosis: BRONCHITIS, ACUTE[ICD9: 466.0] Yaima JOHNSON DO [facility] CPT-4: 51430 07/29/2013 ([id number]) OFFICE/OUTPATIENT VISIT EST Diagnosis: ABDOMINAL PAIN[ICD9: 789.00] Diagnosis: Constipation[ICD9: 564.00] Diagnosis: DIVERTICULITIS, COLONIC[ICD9: 562.11] Yaima JOHNSON [facility] CPT-4: 68665 03/20/2013 ([id number]) OFFICE/OUTPATIENT VISIT EST Diagnosis: Plantar fasciitis[ICD9: 728.71] Diagnosis: ALLERGIC RHINITIS[ICD9: 477.9] Yaima JOHNSON DO [facility] CPT-4: 10117 02/12/2013 OFFICE/OUTPATIENT VISIT EST Diagnosis: Skin lesion[ICD9: 709.9] Diagnosis: Lumbar back pain[ICD9: 724.2] Diagnosis: Muscle spasm[ICD9: 728.85] Diagnosis: Hypothyroid[ICD9: 244.9] Yaima DUMONT [facility] CPT-4: 87394 11/05/2012 ([id number]) OFFICE/OUTPATIENT VISIT EST Diagnosis: Cervicalgia[ICD9: 723.1] Diagnosis: Thoracic back pain[ICD9: 724.1] Diagnosis: SPASM OF MUSCLE[ICD9: 728.85] Yaima JOHNSON [facility] CPT-4: 60363 10/04/2012 ([id number]) OFFICE/OUTPATIENT VISIT EST Diagnosis: MALAISE AND FATIGUE[ICD9: 780.79] Diagnosis: HYPOTHYROIDISM[ICD9: 244.9] Diagnosis: HYPERTENSION[ICD9: 401.9] Yaima TAYLOR [facility] CPT-4: 39803 09/24/2012 ([id number]) OFFICE/OUTPATIENT VISIT EST Diagnosis: Lateral epicondylitis[ICD9: 726.32] Diagnosis: Wrist pain[ICD9: 719.43] Diagnosis: Numbness and tingling in right hand[ICD9: 782.0] Yaima JOHNSON [facility] CPT-4: 56609 05/10/2012 OFFICE/OUTPATIENT VISIT EST Diagnosis: MALAISE AND FATIGUE[ICD9: 780.79] Diagnosis: HYPOTHYROIDISM[ICD9: 244.9] Diagnosis: Enthesopathy of the wrist and carpus[ICD9: 726.4] Diagnosis: Foot pain[ICD9: 729.5] Diagnosis: DYSPHAGIA NEC[ICD9: 787.29] Yaima SAMUELS S. O RENDER [facility] CPT-4: 30648 03/07/2012 ([id number]) OFFICE/OUTPATIENT VISIT EST Diagnosis: HYPOTHYROIDISM[ICD9: 244.9] Yaima SAMUELS S. O RENDER DO [facility] CPT-4: 24368 02/01/2012 ([id number]) OFFICE/OUTPATIENT VISIT EST Diagnosis: MALAISE AND FATIGUE[ICD9: 780.79] Diagnosis: HYPOTHYROIDISM[ICD9: 244.9] Yaimatee Johnson YAIMA S. O RENDER DO [facility] CPT-4: 36364 12/20/2011 OFFICE/OUTPATIENT VISIT EST Diagnosis: INSECT BITE HIP/LEG[ICD9: 916.4] Lizzette Blake Escalera JOSUENDVALORIE DO [facility] CPT-4: 05600 11/22/2011 OFFICE/OUTPATIENT VISIT EST Diagnosis: HEMATURIA NOS[ICD9: 599.70] Yaima Josuebrandon Ravi. O RENDER DO [facility] CPT-4: 73872 07/14/2011 OFFICE/OUTPATIENT VISIT EST Diagnosis: URINARY TRACT INFECTION[ICD9: 599.0] Diagnosis: DIVERTICULITIS, COLONIC[ICD9: 562.11] Yaima Josuebrandon Escalera JOSUEBRANDON [facility] CPT-4: 67908 07/11/2011 OFFICE/OUTPATIENT VISIT EST Diagnosis: TMJ arthritis[ICD9: 524.69] Diagnosis: MIGRAINE NOS/NOT INTRCBL[ICD9: 346.90] Diagnosis: Rectal fissure[ICD9: 565.0] Yaima SAMUELS SRobin O RENDER DO [facility] CPT-4: 27874 07/06/2011 OFFICE/OUTPATIENT VISIT EST Diagnosis: SPASM OF MUSCLE[ICD9: 728.85] Diagnosis: PAIN, LOWER BACK[ICD9: 724.2] Yaima Josuebrandon Escalera JOSUEYVESVALORIE [facility] CPT-4: 32798 05/26/2011 OFFICE/OUTPATIENT VISIT EST Diagnosis: PAIN, LOWER BACK[ICD9: 724.2] Diagnosis: SPASM OF MUSCLE[ICD9: 728.85] Yaima Josuebrandon Escalera JOSUEYVESVALORIE [facility] CPT-4: 01567 05/16/2011 OFFICE/OUTPATIENT VISIT EST Diagnosis: PAIN, LOWER BACK[ICD9: 724.2] Diagnosis: ENTHESOPATHY OF HIP[ICD9: 726.5] Diagnosis: Onychomycosis[ICD9: 110.1] Yaima SAMUELS SRobin OR DANTE [facility] CPT-4: 18914 05/05/2011 OFFICE/OUTPATIENT VISIT EST Diagnosis: Diverticulitis[ICD9: 562.11] [facility] CPT-4: 89941 04/05/2011 OFFICE/OUTPATIENT VISIT EST Diagnosis: CHEST PAIN NOS[ICD9: 786.50] Diagnosis: PALPITATIONS[ICD9: 785.1] Diagnosis: Pulmonary arterial hypertension[ICD9: 416.8] [facility] CPT-4: 22916 03/02/2011 OFFICE/OUTPATIENT VISIT EST Yaima [facility]S [facility] CPT- 4: 36199 01/05/2011 ([id number]) OFFICE/OUTPATIENT VISIT EST Yaima AGUIRRE [facility] CPT-4: 30515 11/16/2010 ([id number]) OFFICE/OUTPATIENT VISIT EST Yaima AGUIRRE [facility] CPT-4: 00211 11/04/2010 ([id number]) OFFICE/OUTPATIENT VISIT EST Yaima AGUIRRE [facility] CPT-4: 94626 08/05/2010 ([id number]) OFFICE/OUTPATIENT VISIT EST Yaima AGUIRRE [facility] CPT-4: 85913 07/23/2010 ([id number]) OFFICE/OUTPATIENT VISIT, EST Yaima [facility] CPT-4: 87047 06/07/2010 ([id number]) OFFICE/OUTPATIENT VISIT, EST Yaima ZUNIGA QUELINE [facility] CPT-4: 52335 05/12/2010 ([id number]) OFFICE/OUTPATIENT VISIT, EST Yaima ZUNIGA [facility] CPT-4: 44673 04/27/2010 ([id number]) OFFICE/OUTPATIENT VISIT, EST Yaima ZUNIGA [facility] CPT-4: 01486 04/19/2010 ([id number]) OFFICE/OUTPATIENT VISIT, EST Yaima ZUNIGA [facility] CPT-4: 70327 03/09/2010 ([id number]) OFFICE/OUTPATIENT VISIT, EST Yaima JOHNSON DO [facility] CPT-4: 61391 01/04/2010 ([id number]) OFFICE/OUTPATIENT VISIT, EST [facility] CPT-4: 28755 12/14/2009 ([id number]) OFFICE/OUTPATIENT VISIT, ANGEL JOHNSON DO [facility] CPT-4: 43318 11/23/2009 Plan of Care Planned Activity Notes Codes Status Date Care Plan: ASSAY THYROID STIM HORMONE Pen [...] : M54.5 04/12/2019 Appointment: Jane Nettles [address] [place] [address] ACUTE ILLNESS 04/12/2019 Appointment: Yaima Johnson WPtel: [address] [place] [address] US CANCELED 02/05/2019 Visit Diagnosis Plan: Pain in thoracic spine Discussio n: Moist Heat Topical Muscle Rub Towel Stretch Skelaxin with Tylenol Arthritis TID Okay to use lidoderm patches Notify if persists ICD-9 : 724.1 ICD-10 : M54.6 01/16/2019 Appointment: Yaima Johnson WPtel: [address] [place] [address] ACUTE ILLNESS 01/16/2019 Appointment: Yaima Johnson WPtel: [address] [place] [address] UA 01/14/2019 Visit Diagnosis Plan: Left lower quadrant pain Discuss ion: Appears to have a hernia so did discuss surgical evaluation ICD-9 : 789.04 ICD-10 : R10.32 01/09/2019 Appointment: Yaima Johnson WPtel: [address] [place] [address] ACUTE ILLNESS 01/09/2019 Visit Diagnosis Plan: Encounter for [facility] medical examination without abnormal findings [...] : Z00.00 11/21/2018 Appointment: Yaima Johnson WPtel: [address] [place] [address] WELCOME TO MEDICARE 11/21/2018 Care Plan: Referral Order SNOMED-CT : 30 [id number] Pending 11/21/2018 Appointment: Yaima Johnson WPtel: [address] [place] [address] 11/01/2018 Visit Diagnosis Plan: Other cervical dis c degeneration, unspecified cervical region Discussion: MRI results discussed fw w [facility] Dr. Johnson ICD-9 : 722.4 ICD-10 : M50.30 10/04/2018 Visit Diagnosis Plan: Hypothyroidism, unspecified Disc ussion: Restart synthroid at 50mcg daily and recheck lab in 3mos ICD-9 : 244.9 ICD-10 : E03.9 10/04/2018 Appointment: Yaima Johnson WPtel: [address] [place], [place] [address] FOLLOW UP 10/04/2018 Care Plan: Referral Order SNOMED-CT : 30 [id number] Pending 10/04/2018 Visit Diagnosis Plan: Hypothyroidism, unspecified [...] : M54.2 08/06/2018 Appointment: Yaima Johnson WPtel: [address] [place], [place] [phone] Schedule medicare annual! FOLLOW UP 2018 Patient Education: levothyroxine- [employer] Coupon [phone] [email or web address] Completed 08/06/2018 Visit Diagnosis Plan: Radiculopathy, lumbosacral regio n Discussion: Daily stretches and see if improves--low dose gabapentin trial q HS if does not improve Lab and fwup in 3mos ICD-9 : 724.4 ICD-10 : M54.17 06/21/2018 Visit Diagnosis Plan: Abrasion, left lower leg, sequel a Discussion: Vitamin E topically for scarring/dryness ICD-9 : 906.2 ICD-10 : S80.812S 06/21/2018 Appointment: Yaima Johnsontel: [address] [place], [place] [phone] ACUTE ILLNESS 06/21/2018 Appointment: Yaima Johnson WPtel: [address] [place], [place] [phone] UA 06/13/2018 Visit Diagnosis Plan: Other dorsalgia [...] ICD-10 : M54.89 05/31/2018 Appointment: Jane Nettles [address] [place] [address] ACUTE ILLNESS 05/31/2018 Appointment: Yaima Johnson WPtel: [address] [place], [place] [phone] [place] INJECTION 03/22/2018 Patient Education: Patient Medication Summary Completed 03/22/2018 Patient Education: INFLUENZA VACCINE CDC Completed 03/22/2018 Appointment: Yaima Johnson WPtel: [address] [place] [address] US RESCHEDULED 02/14/2018 Visit Diagnosis Plan: Hypothyroidism, [...] : I10 02/06/2018 Appointment: Yaima Johnson WPtel: [address] [place] [address] US FOLLOW UP 02/06/2018 Patient Education: Patient Medication Summary Completed 02/06/2018 Appointment: Yaima Johnson WPtel: [address] [place], [place] [phone] [place] INJECTION 12/28/2017 Patient Education: Patient Medication Summary Completed 12/28/2017 Appointment: Yaima Johnson WPtel: [address] [place], [place] [address] US RESCHEDULED 12/25/2017 Visit Diagnosis Plan: Tinnitus, bilateral Discussion: See ENT for hearing eval and further workup ICD-9 : 388.31 ICD-10 : H93.13 12/18/2017 Appointment: Yaima Johnson WPtel: [address] [place], [place] [phone] ACUTE ILLNESS 12/18/2017 Patient Education: Patient Medication Summary Completed 12/18/2017 Patient Education: Tinnitus Completed 12/18/2017 Care Plan: Referral Order SNOMED-CT : 30 [id number] Pending 12/18/2017 Appointment: Yaima Johnson WPtel: [address] [place], [place] [phone] BP CHECK 12/11/2017 Patient Education: Patient Medication Summary Completed 12/11/2017 Referral: Danyel Hernandez WPtel: [facility] [address] Referral Initiated 10/11/2017 Appointment: Yaima Johnson WPtel: [address] [place], [place] [phone] INJECTION 10/04/2017 Patient Education: Patient Medication Summary Completed 10/04/2017 Visit Diagnosis Plan: Essential (primary) hypertension Discussion: [...] ICD-10 : M25.561 09/11/2017 Visit Diagnosis Plan: Gastro-esophageal reflux disease without esophagitis Discussion: Stable ICD-9 : 530.81 ICD-10 : K21.9 09/11/2017 Appointment: Yaima Johnson WPtel: [address] [place], [place] [phone] FOLLOW UP 09/11/2017 Patient Education: Patient Medication Summary Completed 09/11/2017 Appointment: Jane Nettles [address] [id number] 08/28/17 1715---issue addressed in phone message (km) CANCELED 08/29/2017 Patient Education: Patient Medication Summary Completed 07/11/2017 Care Plan: A1C HPLC LOINC : 46736-9 Pending 07/11/2017 Care Plan: ASSAY OF FREE THYROXINE Pendin g 07/11/2017 Care Plan: ASSAY THYROID STIM HORMONE Pen ding 07/11/2017 Care Plan: COMPLETE CBC W/AUTO DIFF WBC LOINC : 03079-4 Pending 07/11/2017 Care Plan: COMPREH[place] : [address]-6 Pending 07/11/2017 Visit Diagnosis Plan: Cervicalgia Discussion: [...] L24.9 03/28/2017 Appointment: Yaima Johnson WPtel: [phone] [facility] ACUTE ILLNESS 03/28/2017 Patient Education: Patient Medication Summary Completed 03/28/2017 Patient Education: Patient Medication Summary Completed 02/17/2017 Care Plan: ASSAY OF FREE THYROXINE Pendin g 02/17/2017 Care Plan: ASSAY THYROID STIM HORMONE Pen ding 02/17/2017 Care Plan: A1C HPLC LOINC : 18065-2 Pending 02/17/2017 Patient Education: Patient Medication Summary Completed 11/23/2016 Care Plan: A1C HPLC LOINC : 09914-1 Pending 11/23/2016 Patient Education: Patient Medication Summary Completed 11/22/2016 Care Plan: COMPREH[place] : [address]-5 Pending 11/22/2016 Care Plan: ASSAY THYROID STIM HORMONE Pen ding 11/22/2016 Care Plan: ASSAY OF FREE THYROXINE Pendin g 11/22/2016 Care Plan: CBC Pending 11/22/2016 Care Plan: ASSAY TRIIODOTHYRONINE (T3) Pe nding 11/22/2016 Care Plan: ASSAY OF IRON Pending Care Plan: VITAMIN B-12 Pending 11/04 Patient Education: Patient Medication Summary Completed 11/09/2016 Care Plan: US EXAM ABDO BACK WALL COMP L OINC : 30764-5 Pending 11/09/2016 Patient Education: Patient Medication Summary Completed 09/26/2016 Visit Diagnosis Plan: Influenza due to i dentified novel influenza A virus with other manifestations Discussion: Tamiflu for her and ICD-9 : 488.09 ICD-10 : J09.X9 09/12/2016 Visit NOS Plan: Plan Notes: Saline nasal flu shes prn. Tyle... 09/12/2016 Appointment: Yaima Johnson WPtel: [phone] [facility] ACUTE ILLNESS 09/12/2016 Patient Education: Patient Medication Summary Completed 09/12/2016 Visit Diagnosis Plan: Pain in right knee Discussion: M RI of right knee scheduled for this weekend by ortho ICD-9 : 719.46 ICD-10 : M25.561 07/28/2016 Visit Diagnosis Plan: Dermatitis, unspecified Discussi on: Use clotrimazole/betamethasone BID to hand rash ICD-9 : 692.9 ICD-10 : L30.9 07/28/2016 Appointment: Yaima Johnson WPtel: [phone] [facility] 07/27 confirmed `sl ACUTE ILLNESS 07/28/2016 [...] how does 04/26/2016 Appointment: Yaima Johnson WPtel: [address] [place], [place] [id number] [place] ACUTE ILLNESS 04/26/2016 Patient Education: Patient Medication Summary Completed 04/26/2016 Appointment: Yaima Johnson WPtel: [address] [place], [place] [phone] [place] INJECTION 04/22/2016 Patient Education: Patient Medication Summary Completed 04/22/2016 Appointment: Yaima Johnson WPtel: [address] [place], [place] [phone] [place] Stool lab 01/04/2016 Patient Education: Patient Medication Summary Completed 01/04/2016 Visit Plan: Calmoseptine to irritated gr oin area Discussed that liver lesion and right kidney cyst are stable dating back to 2009 so likely benign and will recheck in 1year Check CMP and CBC 12/09/2015 Appointment: Yaima Johnson WPtel: [address] [place], [place] [phone] [place] FOLLOW UP 12/09/2015 Patient Education: Patient Medication Summary Completed 12/09/2015 Patient Education: Patient Medication Summary Completed 11/26/2015 Care Plan: ECHO EXAM OF ABDOMEN LOINC : 75874-6 Pending 11/26/2015 Care Plan: US EXAM ABDO BACK WALL COMP L OINC : 11630-8 Pending 11/26/2015 Patient Education: Patient Medication Summary Completed 11/10/2015 Care Plan: ASSAY THYROID STIM HORMONE Pen ding 11/10/2015 Care Plan: ASSAY OF FREE THYROXINE Pendin g 11/10/2015 Visit Plan: Start PT for both right leg sciatica and thoracics for chest pain 09/10/2015 Appointment: Yaima Johnson WPtel: [address] [place], [place] [phone] [place] ACUTE ILLNESS 09/10/2015 Patient Education: Patient Medication Summary Completed 09/10/2015 Appointment: Yaima Johnson WPtel: [address] [place], [place] [phone] [place] INJECTION 07/20/2015 Patient Education: Patient Medication Summary Completed 07/20/2015 Patient Education: Patient Medication Summary Completed 05/04/2015 Visit Plan: Observe left elbow for next 2 weeks and if not improving let us know Observe left leg bruising Can use voltaren gel to elbow Observe ribs Lidoderm patch for SI joint 04/23/2015 Appointment: Yaima Johnson WPtel: [address] [place], [place] [phone] FOLLOW UP 04/23/2015 Patient Education: Patient Medication Summary Completed 04/23/2015 Patient Education: Patient Medication Summary Completed 04/20/2015 Visit Plan: Discussed CT results Add Milton alax 1/2 cap every other day 03/24/2015 Appointment: Yaima Johnson WPtel: [address] [place] [address] 03/23 confirmed~sl FOLLOW UP 03/24/2015 Patient Education: Patient Medication Summary Completed 03/24/2015 Appointment: Yaima Johnson WPtel: [address] [place] [address] US INJECTION 03/09/2015 Patient Education: Patient Medication Summary Completed 03/09/2015 Visit Plan: Check CT scan of abdomen and pelvis with oral contrast Thoracic towel stretch 03/05/2015 Appointment: Yaima Johnson WPtel: [address] [place] [address] FOLLOW UP 03/05/2015 Patient Education: Patient Medication Summary Completed 03/05/2015 Referral: Richmond Berger WPtel: [address] [place], [place] [id number] [place] Referral Initiated 02/23/2015 Visit Plan: Lab [...] left knee 02/19/2015 Appointment: Yaima Johnson WPtel: [address] [place], [place] [phone] 02/18/15 lm confirmed with cb FOLLOW UP Patient Education: Patient Medication Summary Completed 02/19/2015 Patient Education: Patient Medication Summary Completed 02/04/2015 Appointment: Yaima Johnsontel: [address] [place], [place] [phone] [place] FOLLOW UP 01/06/2015 Visit Plan: Decrease levothyroxine to 50 mcg daily Recheck TSH and Free T4 in 2mos then fwup 12/25/2014 Appointment: Yaima Johnson WPtel: [address] [place], [place] [phone] ACUTE ILLNESS 12/25/2014 Patient Education: Patient Medication Summary Completed 12/25/2014 Patient Education: [facility] - [employer]aving [employer] - Levothyroxine - 18-64 - Dynamic Portal ID Completed 12/25/2014 Patient Education: Patient Medication Summary Completed 12/15/2014 Visit Plan: Observe left leg keep meds s robert Has scheduled for 2nd epidural Recheck 3-4weeks after next epidural 11/26/2014 Appointment: Yaima Johnson WPtel: [address] [place], [place] [phone] 11/25 appt confirmed cn FOLLOW UP 11/27/19 Patient Education: Patient Medication Summary Completed 11/26/2014 Visit Plan: Increase Protonix to 40mg po BID Add Bentyl 10mg BID and up to TID prn Patient goes for back injection in 3 weeks Fwup 1 week after back injection 11/04/2014 Appointment: Yaima Johnson WPtel: [address] [place], [place] [phone] 11/03/ / 11/04 appt confirmed ACUTE ILLNESS 0 11/04/2014 Patient Education: Patient Medication Summary Completed 11/04/2014 Appointment: Yaima Johnson WPtel: [address] [place], [place] [phone] 10/14/14: doing better-canceled appt-lb ACUTE ILL NESS 10/15/2014 Visit Plan: hydration stop benadryl Obse rve and monitor Headaches Leg stretches, going to PT today-have them show stretches Notify if headaches, leg pain return/persist 09/01/2014 Appointment: Yaima Johnson WPtel: [address] [place] [address] ACUTE ILLNESS 09/01/2014 Patient Education: Patient Medication Summary Completed 09/01/2014 Patient Education: Patient Medication Summary Completed 08/05/2014 Care Plan: ASSAY OF FREE THYROXINE Ordere d 08/05/2014 Care Plan: ASSAY THYROID STIM HORMONE Ord ered 08/05/2014 Appointment: Yaima Johnson WPtel: [address] [place], [place] [phone] UA 07/10/2014 Patient Education: Patient Medication Summary Completed 07/10/2014 Patient Education: Patient Medication Summary Completed 07/03/2014 Care Plan: HEPATIC FUNCTION PANEL Ordered 07/03/2014 Visit Plan: Vaginal ring unable to be in serted do will have to stick with pill vaginally as prescribed for at least 6mo trial Saline nasal flushes and restart flonase 06/02/2014 Appointment: Yaima Johnson WPtel: [address] [place] [address] FOLLOW UP 06/02/2014 Patient Education: Patient Medication Summary Completed 06/02/2014 Appointment: Yaima Johnson WPtel: [address] [place] [address] BP CHECK 05/26/2014 Patient Education: Patient Medication Summary Completed 05/26/2014 Patient Education: Patient Medication Summary Completed 05/22/2014 Appointment: Yaima Johnson WPtel: [address] [place] [address] BP CHECK 05/07/2014 Patient Education: Patient Medication Summary Completed 05/07/2014 Referral: Nitesh Avalos WPtel: [id number] MRI Scheduled at [facility] 04/17 3pm Completed 04/30/2014 Appointment: Yaima Johnsonl: [address] [place], [place] [phone] BP CHECK 04/15/2014 Visit Plan: Decrease premarin to 0.3125m g for 1week then stop Restart estrogen vaginal tabs and Patient requests to see Dr. Restrepo for back but discussed at this time appears to need conservative management such as PT and epidurals Moniter BP 04/08/2014 Appointment: Yaima Johnson WPtel: [address] [place], [place] [phone] ACUTE ILLNESS 04/08/2014 Patient Education: Patient Medication Summary Completed 04/08/2014 Appointment: Yaima Johnson WPtel: [address] [place] [address] ACUTE ILLNESS 03/10/2014 Visit Plan: Thoracic stretches daily Ske laxin 800mg BID Use vimovo prn Use gemma prn 03/05/2014 Appointment: Yaima Johnson WPtel: [address] [place] [address] ACUTE ILLNESS 03/05/2014 Patient Education: Patient Medication Summary Completed 03/05/2014 Visit Plan: Saline nasal flushes prn. Ty lenol/Motrin prn headache. Notify if persists/symptoms worsening. Zithromax and Prednisone Supportive care. Rest, Fluids, Tylenol/Motrin prn fever or bodyaches. Notify if worsening symptoms. 07/29/2013 Appointment: Mimi Keenan WPtel: [address] [place], [place] [phone] FOLLOW UP 07/29/2013 Patient Education: Patient Medication Summary Completed 07/29/2013 Appointment: Mimi Keenan WPtel: [address] [place], [place] [phone] 05/22 patient called back and reschedule d 05/24 not set up yet ACUTE ILLNESS 05/27/20 13 Visit Plan: Add miralax Cipro/Flagyl Pt has appointment with GI in 03/20/2013 Appointment: Yaima Johnson WPtel: [address] [place] [address] ACUTE ILLNESS 03/20/2013 Patient Education: Patient Medication Summary Completed 03/20/2013 Visit Plan: Tullicups Stretches, ice, vo ltaren gel TID 02/12/2013 Appointment: Yaima Johnson WPtel: [address] [place] [address] ACUTE ILLNESS 02/12/2013 Patient Education: Patient Medication [...] Oct 2012. 11/05/2012 Appointment: Lizzette Lozano WPtel: [address] [place] [address] ACUTE ILLNESS 11/05/2012 Patient Education: Patient Medication Summary Completed 11/05/2012 Appointment: Yaima Johnson WPtel: [address] [place] [address] FOLLOW UP 10/04/2012 Patient Education: Patient Medication Summary Completed 10/04/2012 Visit Plan: Change toprol back to bystol ic BP check in 3wks Continue to observe hands--no observed bruising today 09/24/2012 Appointment: Yaima Johnson WPtel: [address] [place] [address] 09/21 left message ACUTE ILLNESS 09/24/2012 Patient Education: Patient Medication Summary Completed 09/24/2012 Visit Plan: Proceed with EMG of RUE Cont inue vimovo and skelaxin May use Voltaren gel TID to elbow and wrist 05/10/2012 Appointment: Yaima Johnson WPtel: [address] [place] [address] 05/09 left voicemail ACUTE ILLNESS 05/10/2012 Patient [...] is improving 03/07/2012 Appointment: Yaima Johnson WPtel: [address] [place], [place] [phone] FOLLOW UP 03/07/2012 Patient Education: Patient Medication Summary Completed 03/07/2012 Visit Plan: Continue current dose Check TSH, Free T4 in 2mos 02/01/2012 Appointment: Yaima Johnson WPtel: [address] [place], [place] [phone] FOLLOW UP 02/01/2012 Patient Education: Patient Medication Summary Completed 02/01/2012 Visit Plan: Levothyroxine 50mcg po daily 12/20/2011 Appointment: Yaima Johnson WPtel: [address] [place], [place] [phone] FOLLOW UP 12/20/2011 Patient Education: Patient Medication Summary Completed 12/20/2011 Appointment: Lizzette Lozano WPtel: [address] [place], [place] [phone] ACUTE ILLNESS 11/22/2011 Patient Education: Patient Medication Summary Completed 11/22/2011 Appointment: Yaima Johnson WPtel: [address] [place], [place] [phone] [facility] 07/14/2011 Patient Education: Patient Medication Summary Completed 07/14/2011 Visit Plan: Finish current abx Clear liq uids to full liquids and then advance as tolerated If worsens will notify immediately Schedule with Dr. Berger for colonoscopy/EGD 07/11/2011 Appointment: Yaima Johnson WPtel: [address] [place], [place] [phone] ER Follow UP 07/11/2011 Patient Education: Patient Medication Summary Completed 07/11/2011 Visit Plan: Take treximet today and skel axin at bedtime Add anusol cream for 1wk Discussed if colon continues to flare-up over the next 6mos will repeat colonoscopy 07/06/2011 Appointment: Yaima Johnson WPtel: [address] [place] [address] ACUTE ILLNESS 07/06/2011 Patient Education: Patient Medication Summary Completed 07/06/2011 Appointment: Yaima Johnson WPtel: [address] [place] [address] US INJECTION 06/28/2011 Patient Education: Patient Medication Summary Completed 06/28/2011 Visit Plan: OMT done Increase Skelaxin t o TID Start PT Daily stretches 05/26/2011 Appointment: Yaima Johnson WPtel: [address] [place] [address] ACUTE ILLNESS 05/26/2011 Patient Education: Patient Medication Summary Completed 05/26/2011 Visit Plan: OMT done Daily stretches, bi ofreeze Restart skelaxin 05/16/2011 Appointment: Yaima Johnson WPtel: [address] [place] [address] OMT 05/16/2011 Patient Education: Patient Medication Summary Completed 05/16/2011 Visit Plan: OMT done to back Stretches, moist heat and biofreeze Observe toenails 05/05/2011 Appointment: Yaima Johnson WPtel: [address] [place] [address] ACUTE ILLNESS 05/05/2011 Patient Education: Patient Medication Summary Completed 05/05/2011 Visit Plan: Finish Flagyl Continue Cultu relle and add Levbid for 1more week 04/05/2011 Appointment: Yaima Johnson WPtel: [address] [place] [address] ER Follow UP 04/05/2011 Patient Education: Patient Medication Summary Completed 04/05/2011 Appointment: Lizzette Lozano WPtel: [address] [place] [address] ACUTE ILLNESS 03/25/2011 Appointment: Yaima Johnson WPtel: [address] [place], [place] [phone] UA 03/23/2011 Patient Education: Patient Medication Summary Completed 03/23/2011 Visit Plan: Recommend proceed with heart cath Will check PFTs 03/02/2011 Appointment: Yaima Johnson WPtel: [address] [place] [address] FOLLOW UP 03/02/2011 Patient Education: Patient Medication Summary Completed 03/02/2011 Appointment: Yaima Johnson WPtel: [address] [place] [address] LAB 01/14/2011 Patient Education: Patient Medication Summary Completed 01/14/2011 Appointment: Lizzette Lozano WPtel: [address] [place] [address] ACUTE ILLNESS 01/05/2011 Patient Education: Patient Medication Summary Completed 01/05/2011 Visit Plan: Once again stressed jcarlosan ce of using premarin vaginal cream routinely to see if helps urinary symptoms Will culture urine Will observe lipomas--discussed may see surgery for removal 11/16/2010 Appointment: Yaima Johnson WPtel: [address] [place] [address] ACUTE ILLNESS 11/16/2010 Patient Education: Patient Medication Summary Completed 11/16/2010 Visit Plan: Injection to bursa as above Pt will continue to moniter BP and pulse off meds Repeat potassium level in 1wk 11/04/2010 Appointment: Yaima Johnson WPtel: [address] [place] [address] FOLLOW UP 11/04/2010 Patient Education: Patient Medication Summary Completed 11/04/2010 Appointment: Yaima Johnson WPtel: [address] [place], [place] [phone] [place] FOLLOW UP 08/05/2010 Patient Education: Patient Medication Summary Completed 08/05/2010 Appointment: Yaima Johnsontel: [address] [place], [place] [phone] ACUTE ILLNESS 07/23/2010 Patient Education: Patient Medication Summary Completed 07/23/2010 Appointment: Yaima Johnson WPtel: [address] [place], [place] [phone] UA 07/05/2010 Patient Education: Patient Medication Summary Completed 07/05/2010 Appointment: Yaima Johnson WPtel: [address] [place], [place] [phone] BP CHECK 06/28/2010 Patient Education: Patient Medication Summary Completed 06/28/2010 Appointment: Yaima Johnson WPtel: [address] [place], [place] [phone] UA 06/14/2010 Appointment: Yaima Johnson WPtel: [address] [place], [place] [phone] [place] BP CHECK 06/14/2010 Appointment: Yaima Johnson WPtel: [address] [place], [place] [phone] BP CHECK 06/14/2010 Patient Education: Patient Medication Summary Completed 06/14/2010 Patient Education: Patient Medication Summary Completed 06/14/2010 Appointment: Yaima Johnson WPtel: [address] [place], [place] [phone] [place] BP CHECK 06/10/2010 Visit Plan: Decrease lisinopril hct to 1 0/12.5mg QD and moniter BP BP check in 2-3wks--if pulse is increasing will go back to bystolic See ENT to evaluate hoarseness 06/07/2010 Appointment: Yaima Johnsontel: [address] [place], [place] [phone] [place] FOLLOW UP 06/07/2010 Patient Education: Patient [...] (See printoff) 05/12/2010 Appointment: Lizzette Lozano WPtel: [address] [place], [place] [phone] ACUTE ILLNESS 05/12/2010 Patient Education: Patient Medication Summary Completed 05/12/2010 Visit Plan: Continue Bentyl at QAC and H S Continue protonix but increase to BID for 5-7 days If any fever or signs of divertuclitis develop notify 04/27/2010 Appointment: Yaima Johnson WPtel: [address] [place] [address] ACUTE ILLNESS 04/27/2010 Patient Education: Patient Medication Summary Completed 04/27/2010 Visit Plan: flako barajas. Refils. Kaden hernandez #90, -written RX 04/19/2010 Appointment: Lizzette Lozano WPtel: [address] [place], [place] [phone] ACUTE ILLNESS 04/19/2010 Patient Education: Patient Medication Summary Completed 04/19/2010 Appointment: Yaima Johnson WPtel: [address] [place], [place] [phone] [facility] 04/12/2010 Patient Education: Patient Medication Summary Completed 04/12/2010 Appointment: Yaima Johnson WPtel: [address] [place], [place] [phone] [facility] 04/08/2010 Patient Education: Patient Medication Summary Completed 04/08/2010 Appointment: Yaima Johnson WPtel: [address] [place], [place] [phone] FOLLOW UP 03/09/2010 Patient Education: Patient Medication Summary Completed 03/09/2010 Appointment: Yaima Johnson WPtel: [address] [place] [address] BP CHECK 01/19/2010 Patient Education: Patient Medication Summary Completed 01/19/2010 Visit Plan: Check CT head Increase Bysto lic to 5mg QD BP check in 2wks 01/04/2010 Appointment: Yaima Johnson WPtel: [address] [place] [address] ACUTE ILLNESS 01/04/2010 Patient Education: Patient Medication Summary Completed 01/04/2010 Appointment: Yaima Johnson WPtel: [address] [place] [address] BP CHECK 12/21/2009 Patient Education: Patient Medication Summary Completed 12/21/2009 Visit Plan: Change cenestin back to Liu emigdio Cont to moniter BP BP check in 1wk 12/14/2009 Appointment: Yaima Johnson WPtel: [address] [place] [address] [place] FOLLOW UP 12/14/2009 Patient Education: Patient Medication Summary Completed 12/14/2009 Appointment: Lizzette Lozano WPtel: [address] [place] [address] FOLLOW UP 11/23/2009 Patient Education: Patient Medication Summary Completed 11/23/2009 Appointment: Yaima Johnson WPtel: [address] [place], [place] [phone] [place] LAB 09/29/2009 Patient Education: Patient Medication Summary Completed 09/29/2009 Appointment: Yaima Johnson WPtel: [address] [place], [place] [phone] [place] LAB 08/12/2009 Patient Education: Patient Medication Summary Completed 08/12/2009 Referral: Richmond Berger WPtel: [address] [id number] [place] Referral Appointment Requested Referral: Jayce Boyce WPtel: [address] [id number] [place] Referral Appointment Requested Referral: Naldo Johnson WPtel: [address] [id number] [place] Referral Initiated Referral: Naldo Johnson WPtel: [address] [id number] [place] Referral Appointment Requested Instructions Comment . [...]
--- OUTSIDE RECORDS SUMMARY | 2019-08-15 06:14 | XMS REPORT | CCD ---
Author Author Fay Johnson D.O. Organization [facility] Address [address] [place] [address] Phone Care Team Providers Care Measurement Advisor Name Role Phone Yaima Johnson D.O., PP Unavailable CCM Unavailable Summary Purpose Interface Exchange Insurance Providers Payer name Policy type / Coverage type Covered democrat ID Effective Begin Date Effective End Date WPS MEDICARE PART B [place] Medicare Part B [id number] 2018 Unknown [facility] [facility] Medicare Part B [id number] 2018 Unknown Family History Family History data not found Social History Social History Element Codes Description Effective Dates Marital status Unknown M arried 05/16/[address]: 878707314 Never smoker 04/05/2011 Allergies, Adverse Reactions, Alerts Substance Reaction Codes Entered Date Inactivated Date Status * NO KNOWN FOOD ARMANDO RGIES Unknown 11/23/2009 No Inactive Date Active _ Unknown 11/23/2009 No Inactive Date Active _ Unknown 11/23/2009 No Inactive Date Active Past Medical History Illness Codes Condition Status Onset Date Resolved Date Muscle spasm of back ICD-9: 724.8 ICD-10: M62.830 Active 01/16/2019 Unknown Pain in thoracic spine ICD-9: 724.1 ICD-10: M54.6 Active 03/05/2014 Unknown Hematuria, unspecified ICD-9: 599.70 ICD-10: R31.9 Active 11/01/2018 Unknown Low back pain ICD-9: 724.2 ICD-10: M54.5 Active 01/14/2019 Unknown Left lower quadrant pain ICD-9: 789.04 ICD-10: R10.32 Active 01/09/2019 Unknown Encounter for genera l adult medical examination without abnormal findings ICD-9: V70.9 ICD-10: Z00.00 Active 11/21/2018 Unknown Hypothyroidism, unsp ecified ICD-9: 244.9 ICD-10: E03.9 Active 08/05/2014 Unknown Other cervical disc degeneration, unspecified cervical region ICD-9: 722.4 ICD-10: M50.30 Active 10/04/2018 Unknown Other fatigue ICD-9: 780.79 ICD-10: R53.83 Active 11/22/2016 Unknown Cervicalgia ICD-9: 723.1 ICD-10: M54.2 Active 03/28/2017 Unknown Impaired fasting glu cose ICD-9: 790.29 ICD-10: R73.01 Active 11/23/2016 Unknown Abrasion, left lower leg, sequela ICD-9: 906.2 ICD-10: S80.812S Active 06/21/2018 Unknown Radiculopathy, lumbo sacral region ICD-9: 724.4 ICD-10: M54.17 Active 04/25/2016 Unknown Urinary tract infect ion, site not specified ICD-9: 599.0 ICD-10: N39.0 Active 06/13/2018 Unknown Other dorsalgia ICD-9: 724.5 ICD-10: M54.89 Active 05/31/2018 Unknown FLU VACCINE ICD-9: V04.81 ICD-10: Z23 Active 04/21/2016 Unknown Essential (primary) hypertension ICD-9: 401.9 ICD-10: I10 Active 03/28/2017 Unknown Other seasonal aller gic rhinitis ICD-9: 477.9 ICD-10: J30.2 Active 02/06/2018 Unknown Laceration of blood vessel of right index finger, initial encounter ICD-9: 903.5 ICD-10: S65.510A Active 12/28/2017 Unknown VACCINE FOR TDAP ICD-9: V06.1 ICD-10: Z23 Active 12/28/2017 Unknown Tinnitus, bilateral ICD- 9: 388.31 ICD-10: H93.13 Active 12/18/2017 Unknown Pulsatile tinnitus, bilateral ICD-9: 388.30 ICD-10: H93.A3 Active 12/11/2017 Unknown VACCIN FOR DISEASE N EC (HPV or Zostavax) ICD-9: V05.8 ICD-10: Z23 Active 10/04/2017 Unknown Gastro-esophageal re flux disease without esophagitis ICD-9: 530.81 ICD-10: K21.9 Active 11/04/2014 Unknown Hyperglycemia, unspe cified ICD-9: 790.29 ICD-10: R73.9 Active 02/17/2017 Unknown Pain in right knee ICD- 9: 719.46 ICD-10: M25.561 Active 07/28/2016 Unknown Irritant contact sharon matitis, unspecified cause ICD-9: 692.9 ICD-10: L24.9 Active 03/28/2017 Unknown Nonscarring hair los s, unspecified ICD-9: 704.00 ICD-10: L65.9 Active 09/26/2016 Unknown Other general sympto ms and signs ICD-9: 780.99 ICD-10: R68.89 Active 11/22/2016 Unknown 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.01 Active 12/08/2015 Unknown Other specified dise ases of liver ICD-9: 573.8 ICD-10: K76.89 Active 12/08/2015 Unknown Influenza due to robbin ntified novel influenza A virus with other manifestations ICD-9: 488.09 ICD-10: J09.X9 Active 09/12/2016 Unknown Dermatitis, unspecified ICD-9: 692.9 ICD-10: L30.9 Active 07/28/2016 Unknown Incisional hernia wi thout obstruction or gangrene ICD-9: 553.21 ICD-10: K43.2 Active 04/25/2016 Unknown Other fecal abnormal ities ICD-9: 792.1 ICD-10: R19.5 Active 01/03/2016 Unknown Irritant contact sharon matitis due to detergents ICD-9: 692.0 ICD-10: L24.0 Active 12/08/2015 Unknown Hepatomegaly, not el sewhere classified ICD-9: 789.1 ICD-10: R16.0 Active 11/25/2015 Unknown Other specified diso rders of kidney and ureter ICD-9: 591 ICD-10: N28.89 Active 11/25/2015 Unknown Precordial pain ICD-9: 786.50 ICD-10: R07.2 Active 09/10/2015 Unknown Nausea ICD-9: 787.02 ICD-10: R11.0 Active 07/19/2015 Unknown Pain in left elbow ICD- 9: 719.42 ICD-10: M25.522 Active 05/03/2015 Unknown Contusion of left lo wer leg, sequela ICD-9: 906.3 ICD-10: S80.12XS Active 04/22/2015 Unknown Pleurodynia ICD-9: 786.50 ICD-10: R07.81 Active 04/23/2015 Unknown Constipation, unspec ified ICD-9: 564.00 ICD-10: K59.00 Active 03/20/2013 Unknown Unspecified abdomina l pain ICD-9: 789.00 ICD-10: R10.9 Active 03/24/2015 Unknown Ventral hernia witho ut obstruction or gangrene ICD-9: 553.20 ICD-10: K43.9 Active 03/23/2015 Unknown Chondrocostal juncti on syndrome [Tietze] ICD-9: 733.6 ICD-10: M94.0 Active 03/04/2015 Unknown Generalized abdomina l pain ICD-9: 789.00 ICD-10: R10.84 Active 03/05/2015 Unknown DISTURBANCE OF SKIN SENSATION (Paresthesia) ICD-9: 782.0 Active 05/10/2012 Unknown DIVERTICULITIS, COLONIC ICD-9: 562.11 Active 02/19/2015 Unknown Diaphoresis ICD-9: 780.8 Active 12/24/2014 Unknow n ABDOMINAL PAIN ICD-9: 789.00 Active 11/26/2014 Unknown Contusion of leg ICD-9: 924.5 Active 11/25/2014 Unknown GERD ICD-9: 530.81 Active 11/04/2014 Unknow n IBS ICD-9: 564.1 Active 11/04/2014 Unknow n Headache ICD-9: 784.0 Active 09/01/2014 Unknow n Leg pain ICD-9: 729.5 Active 09/01/2014 Unknow n HYPOTHYROIDISM ICD-9: 244.9 Active 08/05/2014 Unknown DYSURIA ICD-9: 788.1 Active 07/10/2014 Unknow n Elevated liver enzymes ICD-9: 790.5 Active 07/03/2014 Unknown SINUSITIS, ACUTE ICD-9: 461.9 Active 06/02/2014 Unknown VAGINITIS ICD-9: 623.5 Active 06/02/2014 Unknow n Leg cramps ICD-9: 729.82 Active 05/22/2014 Unknow n ALLERGIC RHINITIS ICD-9: 477.9 Active 04/08/2014 Unknown HYPERTENSION ICD-9: 401.9 Active 04/08/2014 Unknown PAIN, LOWER BACK ICD-9: 724.2 Active 04/08/2014 Unknown COUGH ICD-9: 786.2 ICD-10: R05 Active 03/05/2014 Unknown Thoracic back pain ICD- 9: 724.1 Active 03/05/2014 Unknown Constipation ICD-9: 564.00 Active 03/20/2013 Unknown Plantar fasciitis ICD-9: 728.71 Active 02/12/2013 Unknown Muscle spasm ICD-9: 728.85 Active 11/05/2012 Unknown Skin lesion ICD-9: 709.9 Active 11/05/2012 Unknow n Cervicalgia ICD-9: 723.1 Active 10/04/2012 Unknow n Hypertension Unknown Active 09/24/2012 Unknow n Lateral epicondylitis ICD-9: 726.32 Active 05/10/2012 Unknown Wrist pain ICD-9: 719.43 Active 05/10/2012 Unknow n DYSPHAGIA NEC ICD-9: 787.29 Active 03/07/2012 Unknown Enthesopathy of the wrist and carpus ICD-9: 726.4 Active 08/2011 Unknown MALAISE AND FATIGUE ICD- 9: 780.79 Active 12/20/2011 Unknown INSECT BITE HIP/LEG ICD- 9: 916.4 Active 11/22/2011 Unknown MIGRAINE NOS/NOT INT RCBL ICD-9: 346.90 Active 06/2011 Unknown Rectal fissure ICD-9: 565.0 Active 07/06/2011 Unknown TMJ arthritis ICD-9: 524.69 Active 07/06/2011 Unknown Onychomycosis ICD-9: 110.1 Active 05/05/2011 Unknown PALPITATIONS ICD-9: 785.1 Active 03/02/2011 Unknown Pulmonary arterial h ypertension ICD-9: 416.8 Active 02/04 Unknown Hyperglycemia ICD-9: 790.29 Active 01/14/2011 Unknown Chest pain ICD-9: 786.50 Active 01/05/2011 Unknow n HEMATURIA NOS ICD-9: 599.70 Active 11/16/2010 Unknown LIPOMA ICD-9: 214.9 Active 11/16/2010 Unknow n Greater trochanteric bursitis ICD-9: 726.5 Active 07/2010 Unknown Tachycardia ICD-9: 785.0 Active 11/04/2010 Unknow n BRONCHITIS, ACUTE ICD-9: 466.0 Active 07/23/2010 Unknown HEMATURIA ICD-9: 599.7 Active 06/28/2010 Unknow n Hoarseness of voice ICD- 9: 784.42 Active 05/12/2010 Unknown ACUTE LARYNGITIS W/O BSTRUCT ICD-9: 464.01 Active Unknown URINARY TRACT INFECTION ICD-9: 599.0 Active 04/08/2010 Unknown ATROPHIC VAGINITIS ICD- 9: 627.3 Active 03/09/2010 Unknown CYSTITIS ICD-9: 595.9 Active 03/09/2010 Unknow n COUGH ICD-9: 786.2 Active 11/23/2009 Unknow n Problems Condition Codes Effectiv e Dates Condition Status Muscle spasm of back ICD-9: 724.8 ICD-10: M62.830 01/16/2019 Active Pain in thoracic spine ICD-9: 724.1 ICD-10: M54.6 03/05/2014 Active Hematuria, unspecified ICD-9: 599.70 ICD-10: R31.9 11/01/2018 Active Low back pain ICD-9: 724.2 ICD-10: M54.5 01/14/2019 Active Left lower quadrant pain ICD-9: 789.04 ICD-10: R10.32 01/09/2019 Active Encounter for genera l adult medical examination without abnormal findings ICD-9: V70.9 ICD-10: Z00.00 11/21/2018 Active Hypothyroidism, unsp ecified ICD-9: 244.9 ICD-10: E03.9 08/05/2014 Active Other cervical disc degeneration, unspecified cervical region ICD-9: 722.4 ICD-10: M50.30 10/04/2018 Active Other fatigue ICD-9: 780.79 ICD-10: R53.83 11/22/2016 Active Cervicalgia ICD-9: 723.1 ICD-10: M54.2 03/28/2017 Active Impaired fasting glu cose ICD-9: 790.29 ICD-10: R73.01 11/23/2016 Active Abrasion, left lower leg, sequela ICD-9: 906.2 ICD-10: S80.812S 06/21/2018 Active Radiculopathy, lumbo sacral region ICD-9: 724.4 ICD-10: M54.17 04/25/2016 Active Urinary tract infect ion, site not specified ICD-9: 599.0 ICD-10: N39.0 06/13/2018 Active Other dorsalgia ICD-9: 724.5 ICD-10: M54.89 05/31/2018 Active FLU VACCINE ICD-9: V04.81 ICD-10: Z23 04/21/2016 Active Essential (primary) hypertension ICD-9: 401.9 ICD-10: I10 03/28/2017 Active Other seasonal aller gic rhinitis ICD-9: 477.9 ICD-10: J30.2 02/06/2018 Active Laceration of blood vessel of right index finger, initial encounter ICD-9: 903.5 ICD-10: S65.510A 12/28/2017 Active VACCINE FOR TDAP ICD-9: V06.1 ICD-10: Z23 12/28/2017 Active Tinnitus, bilateral ICD- 9: 388.31 ICD-10: H93.13 12/18/2017 Active Pulsatile tinnitus, bilateral ICD-9: 388.30 ICD-10: H93.A3 12/11/2017 Active VACCIN FOR DISEASE N EC (HPV or Zostavax) ICD-9: V05.8 ICD-10: Z23 10/04/2017 Active Gastro-esophageal re flux disease without esophagitis ICD-9: 530.81 ICD-10: K21.9 11/04/2014 Active Hyperglycemia, unspe cified ICD-9: 790.29 ICD-10: R73.9 02/17/2017 Active Pain in right knee ICD- 9: 719.46 ICD-10: M25.561 07/28/2016 Active Irritant contact sharon matitis, unspecified cause ICD-9: 692.9 ICD-10: L24.9 03/28/2017 Active Nonscarring hair los s, unspecified ICD-9: 704.00 ICD-10: L65.9 09/26/2016 Active Other general sympto ms and signs ICD-9: 780.99 ICD-10: R68.89 11/22/2016 Active 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.01 12/08/2015 Active Other specified dise ases of liver ICD-9: 573.8 ICD-10: K76.89 12/08/2015 Active Influenza due to robbin ntified novel influenza A virus with other manifestations ICD-9: 488.09 ICD-10: J09.X9 09/12/2016 Active Dermatitis, unspecified ICD-9: 692.9 ICD-10: L30.9 07/28/2016 Active Incisional hernia wi thout obstruction or gangrene ICD-9: 553.21 ICD-10: K43.2 04/25/2016 Active Other fecal abnormal ities ICD-9: 792.1 ICD-10: R19.5 01/03/2016 Active Irritant contact sharon matitis due to detergents ICD-9: 692.0 ICD-10: L24.0 12/08/2015 Active Hepatomegaly, not el sewhere classified ICD-9: 789.1 ICD-10: R16.0 11/25/2015 Active Other specified diso rders of kidney and ureter ICD-9: 591 ICD-10: N28.89 11/25/2015 Active Precordial pain ICD-9: 786.50 ICD-10: R07.2 09/10/2015 Active Nausea ICD-9: 787.02 ICD-10: R11.0 07/19/2015 Active Pain in left elbow ICD- 9: 719.42 ICD-10: M25.522 05/03/2015 Active Contusion of left lo wer leg, sequela ICD-9: 906.3 ICD-10: S80.12XS 04/22/2015 Active Pleurodynia ICD-9: 786.50 ICD-10: R07.81 04/23/2015 Active Constipation, unspec ified ICD-9: 564.00 ICD-10: K59.00 03/20/2013 Active Unspecified abdomina l pain ICD-9: 789.00 ICD-10: R10.9 03/24/2015 Active Ventral hernia witho ut obstruction or gangrene ICD-9: 553.20 ICD-10: K43.9 03/23/2015 Active Chondrocostal juncti on syndrome [Tietze] ICD-9: 733.6 ICD-10: M94.0 03/04/2015 Active Generalized abdomina l pain ICD-9: 789.00 ICD-10: R10.84 03/05/2015 Active DISTURBANCE OF SKIN SENSATION (Paresthesia) ICD-9: 782.0 05/10/2012 Active DIVERTICULITIS, COLONIC ICD-9: 562.11 02/19/2015 Active [...] ICD-10: R05 03/05/2014 Active Thoracic back pain ICD- 9: 724.1 03/05/2014 Active Constipation ICD-9: 564.00 03/20/2013 [...] ICD-9: 726.4 03/07/2012 Active MALAISE AND FATIGUE ICD- 9: 780.79 12/20/2011 Active INSECT BITE HIP/LEG ICD- 9: 916.4 11/22/2011 Active MIGRAINE NOS/NOT INT RCBL ICD-9: 346.90 07/06/2011 Active Rectal fissure ICD-9: 565.0 07/06/2011 Active TMJ arthritis ICD-9: 524.69 07/06/2011 Active Onychomycosis ICD-9: 110.1 05/05/2011 Active PALPITATIONS ICD-9: 785.1 03/02/2011 Active Pulmonary arterial h ypertension ICD-9: 416.8 03/02/2011 Active Hyperglycemia ICD-9: 790.29 01/14/2011 Active Chest pain ICD-9: 786.50 01/05/2011 Active HEMATURIA NOS ICD-9: 599.70 11/16/2010 Active LIPOMA ICD-9: 214.9 11/16/2010 Active Greater trochanteric bursitis ICD-9: 726.5 11/04/2010 Active Tachycardia ICD-9: 785.0 11/04/2010 Active BRONCHITIS, ACUTE ICD-9: 466.0 07/23/2010 Active HEMATURIA ICD-9: 599.7 06/28/2010 Active Hoarseness of voice ICD- 9: 784.42 05/12/2010 Active ACUTE LARYNGITIS W/O BSTRUCT ICD-9: 464.01 04/19/2010 Active URINARY TRACT INFECTION ICD-9: 599.0 04/08/2010 Active ATROPHIC VAGINITIS ICD- 9: 627.3 03/09/2010 Active CYSTITIS ICD-9: 595.9 03/09/2010 Active COUGH ICD-9: 786.2 11/23/2009 Active Medications Medication Codes Instruc tions Start Date Stop Date Sta tus Fill Instructions Mobic 7.5 mg tablet RxNorm: 636499 1 Tablet(s) PO QOD opposite days as alev e 11/21/2018 11/21/2018 In active dicyclomine 10 mg ca psule RxNorm: 989989 1 Capsule(s) PO TID a s needed for abdominal pain 08/23/2018 No Stop Date Active alprazolam 0.25 mg t ablet RxNorm: 673515 1 Tablet(s) PO Q8H as needed for anxiety 08/10/2018 11/20/2018 In active [AttnRPh: Saving apply/adjudicate RxGRP: SG20 RxBIN:[id number] RxPCN: ID#:[id number]] levothyroxine 25 mcg tablet RxNorm: 112287 1 Tablet(s) PO QD rep laces 50mcg dose 08/06/2018 10/04/2018 In active levothyroxine 25 mcg tablet RxNorm: 012971 1 Tablet(s) PO QD rep laces 50mcg dose 08/06/2018 08/05/2018 In active levothyroxine 50 mcg tablet RxNorm: 179333 1 Tablet(s) PO QD 07/26/2018 08/05/2018 Inactive Generic For:*SYNTHROID 0.05MG TAB 08/09 8:59:33 AM Mobic 7.5 mg tablet RxNorm: 448582 1 Tablet(s) PO QOD opposite days as alev e 07/10/2018 09/07/2018 In active Mobic 7.5 mg tablet RxNorm: 413192 1 Tablet(s) PO QD 07/10/2018 07/09/2018 Inactive Toprol XL 25 mg tabl et,extended release RxNorm: 414020 1 Tablet(s) PO QD 06/18/2018 03/14/2019 Ac tive Generic For:TOPROL XL 25MG TAB SA 2015 9:08:41 AM amoxicillin 500 mg c apsule RxNorm: 797861 1 Capsule(s) PO TID 06/04/2018 06/10/2018 Inactive amoxicillin 500 mg c apsule RxNorm: 030169 1 Capsule(s) PO TID 06/04/2018 06/03/2018 Inactive Skelaxin 800 mg tablet RxNorm: 522925 1 Tablet(s) PO BID as needed for muscle spasm 05/31/2018 No Stop Date Active levothyroxine 50 mcg tablet RxNorm: 975020 1 Tablet(s) PO QD 02/02/2018 07/25/2018 Inactive Generic For:*SYNTHROID 0.05MG TAB 08/09 8:59:33 AM Toprol XL 25 mg tabl et,extended release RxNorm: 505524 1 Tablet(s) PO QD 12/19/2017 06/16/2018 In active Generic For:TOPROL XL 25MG TAB SA 12/20 9:08:41 AM ranitidine 150 mg ta blet RxNorm: 592459 1 Tablet(s) PO BID 12/11/2017 05/31/2018 Inactive levothyroxine 50 mcg tablet RxNorm: 216854 1 Tablet(s) PO QD SHIMON E 1 TABLET BY MOUTH EVERY DAY 08/03/2017 02/02/2018 Inactive Generic For:*SYNTHROID 0.05 MG TAB 08/09/2016 8:59:33 AM Singulair 10 mg tablet RxNorm: 983748 1 Tablet(s) PO QHS 07/11/2017 09/10/2017 Inactive dicyclomine 10 mg ca psule RxNorm: 289162 1 Capsule(s) PO TID a s needed for abdominal pain 06/08/2017 08/22/2018 Inactive ranitidine 150 mg ta blet RxNorm: 929312 1 Tablet(s) PO BID 06/08/2017 09/05/2017 Inactive Toprol XL 25 mg tabl et,extended release RxNorm: 464006 1 Tablet(s) PO QD 06/08/2017 12/19/2017 In active Generic For:TOPROL XL 25MG TAB SA 12/20 9:08:41 AM betamethasone diprop ionate 0.05 % topical cream RxNorm: 143692 1 Application TOP QHS 03/28/2017 10/03/2018 Inactive levothyroxine 50 mcg tablet RxNorm: 386808 1 Tablet(s) PO QD SHIMON E 1 TABLET BY MOUTH EVERY DAY 02/03/2017 08/01/2017 Inactive Generic For:*SYNTHROID 0.05 MG TAB 08/09/2016 8:59:33 AM ranitidine 150 mg ta blet RxNorm: 778772 1 Tablet(s) PO BID 12/15/2016 06/08/2017 Inactive Toprol XL 25 mg tabl et,extended release RxNorm: 222843 1 Tablet(s) PO QD 12/15/2016 06/08/2017 In active Generic For:TOPROL XL 25MG TAB SA 12/20 9:08:41 AM ranitidine 150 mg ta blet RxNorm: 793052 1 Tablet(s) PO BID 11/11/2016 12/10/2016 Inactive ranitidine 75 mg tablet RxNorm: 887771 1 Tablet(s) PO QD 10/21/2016 11/10/2016 Inactive ranitidine 75 mg tablet RxNorm: 076521 1 Tablet(s) PO QD 10/21/2016 10/20/2016 Inactive Tamiflu 75 mg capsule RxNorm: 043530 1 Capsule(s) PO BID 09/12/2016 09/16/2016 Inactive Promethegan 25 mg re ctal suppository RxNorm: 652133 1 Suppository RTL Q4H as needed 09/12/2016 03/27/2017 In active levothyroxine 50 mcg tablet RxNorm: 931651 TAKE 1 TABLET BY MOUT H EVERY DAY 08/09/2016 02/03/2017 In active Generic For:*SYNTHROID 0.05MG TAB 08/09 8:59:33 AM famotidine 40 mg tablet RxNorm: 166034 1 Tablet(s) PO BID 07/22/2016 10/20/2016 Inactive clotrimazole-betamet hasone 1 %-0.05 % topical cream RxNorm: 808767 1 Application TOP BID to rash prn--was supposed to be cream not lotion 06/23/2016 03/27/2017 Inactive famotidine 40 mg tablet RxNorm: 320492 1 Tablet(s) PO BID 06/23/2016 07/21/2016 Inactive Toprol XL 25 mg tabl et,extended release RxNorm: 240923 1 Tablet(s) PO QD 06/14/2016 12/15/2016 In active Generic For:TOPROL XL 25MG TAB SA 12/20 9:08:41 AM dicyclomine 10 mg ca psule RxNorm: 162289 1 Capsule(s) PO TID a s needed for abdominal pain 04/26/2016 06/07/2017 Inactive dicyclomine 10 mg ca psule RxNorm: 877894 1 Capsule(s) PO TID a s needed for abdominal pain 04/26/2016 06/08/2017 Inactive famotidine 40 mg tablet RxNorm: 811672 1 Tablet(s) PO QD 04/26/2016 06/22/2016 Inactive Protonix 40 mg table t,delayed release RxNorm: 990800 1 Tablet(s) PO QD 02/05/2016 03/27/2017 In active levothyroxine 50 mcg tablet RxNorm: 664764 1 Tablet(s) PO QD 01/25/2016 07/22/2016 Inactive Toprol XL 25 mg tabl et,extended release RxNorm: 555157 TAKE ONE TABLET BY [facility] EVERY DAY 12/21/2015 06/14/2016 Inactive Generic For:TOPROL XL 25MG TAB SA 12/20 9:08:41 AM Protonix 40 mg table t,delayed release RxNorm: 606006 1 Tablet(s) PO QD 07/27/2015 01/22/2016 In active levothyroxine 50 mcg tablet RxNorm: 097795 1 Tablet(s) PO QD 07/22/2015 01/17/2016 Inactive Phenergan 25 mg rect al suppository RxNorm: 096184 1 Suppository RTL Q4H as needed for nausea and vomiting 07/20/2015 12/08/2015 Inactive Toprol XL 25 mg tabl et,extended release RxNorm: 381837 1 Tablet(s) PO QD 06/15/2015 12/11/2015 In active clotrimazole-betamet hasone 1 %-0.05 % topical cream RxNorm: 621469 1 Application TOP BID to rash prn--was supposed to be cream not lotion 05/20/2015 05/19/2015 Inactive Protonix 40 mg table t,delayed release RxNorm: 016708 1 Tablet(s) 1 Tablet( s) PO QD 04/23/2015 07/27/2015 In active levothyroxine 50 mcg tablet RxNorm: 817150 1 Tablet(s) PO QD 04/23/2015 07/21/2015 Inactive Lidoderm 5 % (700 mg /patch) adhesive patch RxNorm: 3478397 1-2 Unit Dose TOP QD on for 12hrs then off for 12hrs 04/23/2015 03/27/2016 Inactive Miralax 17 gram oral powder packet RxNorm: 193868 1/2 Unit Dose PO ever y other day 03/24/201503/29/2015 In active levothyroxine 50 mcg tablet RxNorm: 234181 1 Tablet(s) PO QD 02/19/2015 04/19/2015 Inactive dicyclomine 10 mg ca psule RxNorm: 271592 1 Capsule(s) PO TID a s needed for abdominal pain 02/19/2015 04/25/2016 Inactive dicyclomine 10 mg ca psule RxNorm: 668442 1 Capsule(s) PO TID a s needed for abdominal pain 12/25/2014 02/18/2015 Inactive Protonix 40 mg table t,delayed release RxNorm: 553582 1 Tablet(s) PO BID 12/25/2014 03/04/2015 In active levothyroxine 50 mcg tablet RxNorm: 660564 1 Tablet(s) PO QD 12/25/2014 02/18/2015 Inactive Flonase 50 mcg/actua tion nasal spray,suspension RxNorm: 769944 2 Agar NASAL QHS 12/25/2014 10/03/2018 In active [SAVINGS FOR NON-COVERED DRUGS -- BIN:00 3585, PCN: [id number], Group: XXXXX, ID# [id number], Questions: . THIS IS NOT INSURANCE.] Toprol XL 25 mg tabl et,extended release RxNorm: 508685 1 Tablet(s) PO QD 12/01/2014 05/29/2015 In active dicyclomine 10 mg ca psule RxNorm: 381362 1 Capsule(s) PO TID a s needed for abdominal pain 12/01/2014 12/24/2014 Inactive levothyroxine 75 mcg tablet RxNorm: 622535 1 Tablet(s) PO QD 11/10/2014 12/24/2014 Inactive [AttnRPh: Saving apply/adjudicate RxGRP: SG20 RxBIN:[id number] RxPCN: ID#:[id number]] Protonix 40 mg table t,delayed release RxNorm: 592988 1 Tablet(s) BID 1 Tab let(s) PO QD 11/04/2014 12/24/2014 Inactive dicyclomine 10 mg ca psule RxNorm: 307511 1 Capsule(s) PO TID a s needed for abdominal pain 11/04/2014 11/30/2014 Inactive Protonix 40 mg table t,delayed release RxNorm: 543079 Tablet(s) 1 Tablet(s) PO QD 10/14/2014 11/03/2014 In active Flonase 50 mcg/actua tion nasal spray,suspension RxNorm: 935444 2 Agar NASAL QHS 09/01/2014 12/24/2014 In active [SAVINGS FOR NON-COVERED DRUGS -- BIN:00 3585, PCN: [id number], Group: XXXXX, ID# [id number], Questions: . THIS IS NOT INSURANCE.] Toprol XL 25 mg tabl et,extended release RxNorm: 918766 Tablet(s) 1/2 Tablet( s) PO QD 08/28/2014 11/25/2014 Inactive [SAVINGS FOR UNINSURED PATIENTS -- BIN:0 66325, PCN: [id number], Group: [id number], ID# [id number], Process claim through [employer], for questions: . THIS IS NOT INSURANCE.] estradiol 0.01% (0.1 mg/gram) vaginal cream RxNorm: 931765 1 Gram(s) VAG Insert vaginally at bedtime, Monday, Monday and Monday06/26/2014 12/24/2014 Inactive Toprol XL 25 mg tabl et,extended release RxNorm: 518400 1/2 Tablet(s) PO QD 06/06/2014 08/27/2014 In active [SAVINGS FOR UNINSURED PATIENTS -- BIN:0 29270, PCN: [id number], Group: [id number], ID# [id number], Process claim through [employer], for questions: . THIS IS NOT INSURANCE.] estradiol 0.5 mg tablet RxNorm: 627042 1 Tablet(s) VAG Place one tablet in the vagina at bedtime three times a week 06/02/2014 06/25/2014 Inactive Estring 2 mg vaginal RxNorm: 387400 VAG Insert vaginally and remove after 90 days 05/27/2014 06/01/2014 Inactive Toprol XL 25 mg tabl et,extended release RxNorm: 726182 1/2 Tablet(s) PO QD 04/15/2014 04/14/2014 In active Protonix 40 mg table t,delayed release RxNorm: 818061 1 Tablet(s) PO QD 04/15/2014 10/14/2014 In active estradiol 0.5 mg tablet RxNorm: 604312 1 Tablet(s) VAG Place one tablet in the vagina at bedtime twice a week 04/15/2014 06/01/2014 Inactive Toprol XL 25 mg tabl et,extended release RxNorm: 216027 1/2 Tablet(s) PO QD 04/15/2014 06/05/2014 In active [SAVINGS FOR UNINSURED PATIENTS -- BIN:[id number], PCN: [id number], Group: [id number], ID# [id number], Process claim through [employer], for questions: . THIS IS NOT INSURANCE.] levothyroxine 75 mcg tablet RxNorm: 077337 1 Tablet(s) PO QD 04/08/2014 04/07/2014 Inactive [AttnRPh: Saving apply/adjudicate RxGRP: SG20 RxBIN:[id number] RxPCN: ID#:[id number]] Flonase 50 mcg/actua tion nasal spray,suspension RxNorm: 786311 1 Agar NASAL BID 04/08/2014 08/31/2014 In active levothyroxine 75 mcg tablet RxNorm: 165557 1 Tablet(s) PO QD 04/08/2014 10/04/2014 Inactive [AttnRPh: Saving apply/adjudicate RxGRP: SG20 RxBIN:[id number] RxPCN: ID#:[id number]] estradiol 0.5 mg tablet RxNorm: 207999 Tablet(s) PO Place one tablet in the vag bent[place] at bedtime one time weekly 04/08/2014 04/07/2014 Inactive levothyroxine 75 mcg tablet RxNorm: 904510 1 Tablet(s) PO QD 03/20/2014 04/07/2014 Inactive [AttnRPh: Saving apply/adjudicate RxGRP: SG20 RxBIN:[id number] RxPCN: ID#:[id number]] Skelaxin 800 mg tablet RxNorm: 721793 1 Tablet(s) PO TID as needed for muscle spasm 03/05/2014 11/03/2014 Inactive alprazolam 0.25 mg t ablet RxNorm: 440779 1 Tablet(s) PO Q8H as needed for anxiety 02/27/2014 08/05/2018 In active [AttnRPh: Saving apply/adjudicate RxGRP: SG20 RxBIN:[id number] RxPCN: ID#:[id number]] Synthroid 75 mcg tablet RxNorm: 883472 1 Tablet(s) PO QD 11/29/2013 11/03/2014 Inactive levothyroxine 75 mcg tablet RxNorm: 430469 1 Tablet(s) PO QD -Ne ed labs 11/27/2013 03/19/2014 In active [AttnRPh: Saving apply/adjudicate RxGRP: SG20 RxBIN:[id number] RxPCN: ID#:[id number]] Protonix 40 mg table t,delayed release RxNorm: 652891 1 Tablet(s) PO QD 10/07/2013 04/04/2014 In active Synthroid 75 mcg tablet RxNorm: 375680 1 Tablet(s) PO QD 09/02/2013 11/28/2013 Inactive Zithromax 500 mg tablet RxNorm: 257780 1 Tablet(s) PO QD 07/29/2013 08/04/2013 Inactive prednisone 20 mg tablet RxNorm: 906720 1 Tablet(s) PO QD 07/29/2013 08/02/2013 Inactive Synthroid 75 mcg tablet RxNorm: 788330 1 Tablet(s) PO QD Patient wants it put o n hold 05/14/2013 09/02/2013 Inactive Synthroid 75 mcg tablet RxNorm: 294645 1 Tablet(s) PO QD 05/01/2013 05/13/2013 Inactive Flagyl 500 mg tablet RxNorm: 323103 1 Tablet(s) PO BID 03/20/2013 04/02/2013 Inactive Cipro 500 mg tablet RxNorm: 963422 1 Tablet(s) PO QD 03/20/2013 04/02/2013 Inactive levothyroxine 75 mcg tablet RxNorm: 759429 1 Tablet(s) PO QD 11/05/2012 05/03/2013 Inactive Septra DS 800 mg-160 mg tablet RxNorm: 571342 1 Tablet(s) PO BID an tibiotic 11/05/2012 11/09/2012 In active Bystolic 5 mg tablet RxNorm: 370042 1 Tablet(s) PO QD 10/10/2012 08/05/2018 Inactive Bystolic 5 mg tablet RxNorm: 975893 1 Tablet(s) PO QD 10/10/2012 02/11/2013 Inactive Protonix 40 mg table t,delayed release RxNorm: 520384 1 Tablet(s) PO QD 09/24/2012 09/18/2013 In active Synthroid 75 mcg tablet RxNorm: 896173 1 Tablet(s) PO QD 08/01/2012 09/23/2012 Inactive Synthroid 75 mcg tablet RxNorm: 715962 1 Tablet(s) PO QD Brand name only 07/03/2012 07/31/2012 In active Skelaxin 800 mg tablet RxNorm: 242118 1 Tablet(s) PO TID prn spasm 05/02/2012 03/04/2014 Inactive Zithromax Z-Leonel 250 mg tablet RxNorm: 565748 Tablet(s) PO As Direc sheridan 04/12/2012 05/01/2012 In active levothyroxine 75 mcg tablet RxNorm: 653670 1 Tablet(s) PO QD 04/03/2012 08/05/2018 Inactive levothyroxine 75 mcg tablet RxNorm: 949415 1 Tablet(s) PO QD 04/03/2012 07/01/2012 Inactive Ultram 50 mg tablet RxNorm: 444519 1-2 Tablet(s) PO TID as needed for migra ine 04/03/2012 11/03/2014 In active Vimovo 500 mg-20 mg tablets,immediate & delayed release RxNorm: 874236 1 Tablet(s) PO BID for pain 03/28/2012 07/25/2012 Inactive levothyroxine 75 mcg tablet RxNorm: 861991 1 Tablet(s) PO QD 03/07/2012 04/02/2012 Inactive levothyroxine 50 mcg tablet RxNorm: 103000 1 Tablet(s) PO QD 02/01/2012 09/23/2012 Inactive levothyroxine 50 mcg tablet RxNorm: 409523 1 Tablet(s) PO QD 12/20/2011 01/31/2012 Inactive Septra DS 800 mg-160 mg Tab RxNorm: 014048 1 Tablet(s) PO BID 11/22/2011 11/26/2011 Inactive mupirocin 2 % Ointment RxNorm: 483866 1 Application TOP TID 11/22/2011 11/28/2011 Inactive Protonix 40 mg table t,delayed release RxNorm: 290403 1 Tablet(s) PO QD 09/13/2011 09/24/2012 In active hydrocodone-acetamin ophen 5 mg-500 mg Tab RxNorm: 786331 1 Tablet(s) PO Q4-6H as needed for pain 07/13/2011 11/21/2011 Inactive Skelaxin 800 mg tablet RxNorm: 013144 1 Tablet(s) PO TID prn spasm 06/30/2011 11/21/2011 Inactive Skelaxin 800 mg Tab RxNorm: 823794 1 Tablet(s) PO TID prn spasm 05/23/2011 No Stop Date Active potassium chloride E R 10 mEq Cap RxNorm: 0569787 2 Capsule(s) PO QD 12/30/2010 01/30/2011 Inactive potassium chloride E R 10 mEq Cap RxNorm: 3808264 1 Capsule(s) PO QD 12/29/2010 12/29/2010 Inactive Take 2 tablets by mouth on Monday, , Monday and 1 tablet by mouth on Monday, , Monday and Monday Premarin 0.9 mg Tab RxNorm: 686022 1 Tablet(s) PO QD 12/09/2010 01/07/2011 Inactive potassium chloride E R 10 mEq Cap RxNorm: 4311557 1 Capsule(s) PO QD 12/07/2010 No Stop Date Active Take 2 tablets by mouth on Monday, , Monday and 1 tablet by mouth on Monday, , Monday and Monday promethazine 12.5 mg Rectal Suppository RxNorm: 866382 1 Application RTL Q6- 8H 12/07/2010 12/16/2010 In active prn nausea and vomiting potassium chloride E R 10 mEq Cap RxNorm: 4846946 1 Capsule(s) PO QD 12/03/2010 No Stop Date Active MWF take 2 tablets daily. Take one tabl et daily on other days. Protonix 40 mg Tab RxNorm: 875349 1 Tablet(s) PO QD 09/27/2010 09/13/2011 Inactive cefdinir 300 mg Cap RxNorm: 139766 2 Capsule(s) PO QD 08/05/2010 08/04/2010 Inactive cefdinir 300 mg Cap RxNorm: 203151 2 Capsule(s) PO QD 08/05/2010 08/14/2010 Inactive Premarin 1.25 mg Tab RxNorm: 494306 1 Tablet(s) PO QD 06/14/2010 12/09/2010 Inactive lisinopril-hydrochlo rothiazide 10 mg-12.5 mg Tab RxNorm: 133307 1 Tablet(s) PO 06/07/2010 11/04/2010 In active alprazolam 0.25 mg Tab RxNorm: 512470 1 Tablet(s) PO TID written script provid ed to patient. 05/24/2010 06/22/2010 Inactive Treximet 85 mg-500 m g Tab RxNorm: 777513 1 Tablet(s) PO PRN 05/12/2010 09/23/2012 Inactive lisinopril-hydrochlo rothiazide 20 mg-12.5 mg Tab RxNorm: 765508 1 Tablet(s) PO QD 05/12/2010 11/04/2010 In active alprazolam 0.25 mg Tab RxNorm: 373625 1 Tablet(s) PO TID written script provid ed to patient. 04/19/2010 05/23/2010 Inactive Macrobid 100 mg Cap RxNorm: 1304617 1 Capsule(s) PO BID 04/08/2010 04/17/2010 Inactive Premarin 1.25 mg Tab RxNorm: 442981 1 Tablet(s) PO QD 03/22/2010 06/13/2010 Inactive Amitriptyline 10 mg Tab RxNorm: 633652 1 Tablet(s) PO QD 03/22/2010 06/19/2010 Inactive Protonix 40 mg Tab RxNorm: 507538 1 Tablet(s) PO QD 03/22/2010 06/19/2010 Inactive alprazolam 0.25 mg Tab RxNorm: 385581 1 Tablet(s) PO TID 03/10/2010 04/08/2010 Inactive Macrobid 100 mg Cap RxNorm: 6534109 1 Capsule(s) PO QD 03/09/2010 04/26/2010 Inactive Bystolic 5 mg Tab RxNorm: 743994 1 Tablet(s) PO QD Fill at 30 if insuranc e will not accept 03/01/2010 11/04/2010 Inactive Protonix 40 mg Tab RxNorm: 882887 1 Tablet(s) PO QD 11/23/2009 12/22/2009 Inactive Premarin 1.25 mg Tab RxNorm: 085033 1 Tablet(s) PO QD 11/23/2009 12/13/2009 Inactive Bentyl 10 mg Cap RxNorm: 647915 1 Capsule(s) PO QID 11/23/2009 11/15/2010 Inactive Elavil 10 mg Tab RxNorm: 477004 1 Tablet(s) PO QPM 11/19/2009 11/15/2010 Inactive Cranberry Concentrat e capsule RxNorm: 1 Capsule(s) PO QD No Start Date Active Estrace 0.01% (0.1 m g/gram) vaginal cream RxNorm: 532866 1 Application VAG wee kly No Start Date Active Xyzal 5 mg tablet RxNorm: 136824 1 Tablet(s) PO QD No Start Date Active Protonix 40 mg table t,delayed release RxNorm: 998474 1 Tablet(s) PO QD No Start Date Active fluticasone propiona te 50 mcg/actuation nasal spray,suspension RxNorm: 8713709 2 Agar NASAL QD No Start Date Active Vitamin D3 2,000 uni t tablet RxNorm: 967957 1 Tablet(s) PO QD No Start Date Active levothyroxine 50 mcg tablet RxNorm: 659829 1 Tablet(s) PO QD No Start Date Active BIOFREEZE Top RxNorm: Topical No Start Date Active meloxicam 15 mg tablet RxNorm: 122733 1 Tablet(s) PO QD as needed No Start Date Active multivitamin chewabl e tablet RxNorm: 1 Tablet(s) PO QD No Start Date Active Estring 2 mg vaginal RxNorm: 651652 VAG Insert vaginally and remove after 90 days No Start Date 05/26/2014 Inactive Premarin 0.625 mg ta blet RxNorm: 571889 1 Tablet(s) PO QD No Start Date 04/07/2014 Inactive Miralax 17 gram/dose oral powder RxNorm: 438207 1 capful PO QD No Start Date 08/05/2018 Inactive diazepam 5 mg tablet RxNorm: 521307 2 Tablet(s) PO before MRI No Start Date 10/03/2018 Inactive Protonix 40 mg table t,delayed release RxNorm: 605793 1 Tablet(s) PO QD No Start Date 07/26/2015 Inactive B12 sublingual RxNorm: 10316 sublingual No Start Date 03/27/2017 Inactive Treximet 85 mg-500 m g Tab RxNorm: 161906 Tablet(s) PO PRN No Start Date 05/11/2010 Inactive Gemma 180 mg Tab RxNorm: 028234 1 Tablet(s) PO QD No Start Date 12/19/2011 Inactive Gemma Allergy 180 mg tablet RxNorm: 209066 1 Tablet(s) PO QD No Start Date 08/31/2014 Inactive estradiol 0.01% (0.1 mg/gram) vaginal cream RxNorm: 362982 1 Gram(s) VAG Insert vaginally at bedtime, Monday, Monday and Monday No Start Date 06/25/2014 Inactive Tylenol Ex Str Arthr itis Pain 500 mg tablet RxNorm: 133582 2 Tablet(s) PO TID No Start Date 08/05/2018 Inactive Toprol XL 25 mg tabl et,extended release RxNorm: 627617 1 Tablet(s) PO QD No Start Date 11/30/2014 Inactive Ultram 50 mg tablet RxNorm: 117252 1-2 Tablet(s) PO TID as needed for migra ine No Start Date 04/02/2012 Inactive Premarin 0.9 mg Tab RxNorm: 238635 1 Tablet(s) PO QD No Start Date 12/19/2011 Inactive Bystolic 5 mg Tab RxNorm: 850924 1/2 Tablet(s) PO QD No Start Date 02/28/2010 Inactive Ondansetron HCl 4 mg Tab RxNorm: 876248 1 Tablet(s) PO TID or every 8hrs as needed for nausea No Start Date 11/21/2011 Inactive Protonix 40 mg table t,delayed release RxNorm: 281452 1 Tablet(s) PO BID No Start Date 12/24/2014 Inactive potassium chloride E R 10 mEq Cap RxNorm: 7759382 1 Capsule(s) PO QD No Start Date 12/02/2010 Inactive Miralax 17 gram/dose oral powder RxNorm: 927290 1 capful PO QD No Start Date 03/29/2015 Inactive levothyroxine 75 mcg tablet RxNorm: 046453 1 Tablet(s) PO QD six days a week No Start Date 12/24/2014 Inactive Cenestin 1.25 mg Tab RxNorm: 697241 1 Tablet(s) PO QD No Start Date 01/03/2010 Inactive calcium-vitamin D3 5 00 mg oral wafer RxNorm: 1 Tablet(s) PO QD No Start Date 12/08/2015 Inactive Vimovo 500 mg-20 mg tablet,immediate & delayed release RxNorm: 162323 1 Tablet(s) PO QD No Start Date 11/03/2014 Inactive alprazolam 0.25 mg t ablet RxNorm: 032656 1 Tablet(s) PO Q8H as needed for anxiety/stress No Start Date 12/24/2014 Inactive betamethasone diprop ionate 0.05 % topical cream RxNorm: 142689 1 Application TOP QHS No Start Date 03/27/2017 Inactive cetirizine 10 mg cap verito RxNorm: 5351321 1 Capsule(s) PO QD No Start Date 09/10/2017 Inactive Skelaxin 800 mg Tab RxNorm: 832444 Tablet(s) PO PRN No Start Date 11/15/2010 Inactive Zithromax Z-Leonel 250 mg tablet RxNorm: 490705 Tablet(s) PO As Direc sheridan No Start Date 04/11/2012 Inactive Zithromax Z-Leonel 250 mg Tab RxNorm: 257410 Tablet(s) PO as directed No Start Date 11/15/2010 Inactive Gemma 180 mg tablet RxNorm: 305579 1 Tablet(s) PO QD No Start Date 12/24/2014 Inactive Anusol-HC 2.5 % Rect al Cream RxNorm: 832178 Application RTL BID f or 1wk No Start Date 12/19/2011 Inactive metoprolol succinate ER 25 mg 24 hr Tab RxNorm: 231913 1/2 Tablet(s) PO QD No Start Date 10/03/2012 Inactive clotrimazole-betamet hasone 1 %-0.05 % Lotion RxNorm: 002303 Application TOP BID t o rash No Start Date 05/15/2011 Inactive ranitidine 150 mg ta blet RxNorm: 410611 1 Tablet(s) PO QD No Start Date 12/06/2018 Inactive ranitidine 150 mg ta blet RxNorm: 460392 1 Tablet(s) PO BID No Start Date 11/10/2016 Inactive promethazine 12.5 mg Rectal Suppository RxNorm: 463641 1 Application RTL Q6- 8H No Start Date 12/06/2010 Inactive Maxalt-CAMPGROUND CARETAKER 10 mg dis integrating tablet RxNorm: 172992 1 Tablet(s) PO at a dache onset--may repeat in 2hrs if needed No Start Date 12/24/2014 Inactive Benadryl 25 mg capsule RxNorm: 9075965 Capsule(s) PO as needed No Start Date 12/24/2014 Inactive Cranberry Concentrat e 500 mg capsule RxNorm: 032590 1 Capsule(s) PO QD No Start Date 09/10/2017 Inactive Mobic 15 mg tablet RxNorm: 583667 1 Tablet(s) PO on opposite days of Aleve No Start Date 11/20/2018 Inactive Bystolic 5 mg tablet RxNorm: 566722 1 Tablet(s) PO QD No Start Date 10/09/2012 Inactive Premarin 1.25 mg Tab RxNorm: 388429 1 Tablet(s) PO QD No Start Date 03/21/2010 Inactive clotrimazole-betamet hasone 1 %-0.05 % topical cream RxNorm: 814913 Application TOP BID to rash prn--was supposed to be cream not lotion No Start Date 12/19/2011 Inactive azithromycin 250 mg Tab RxNorm: 275226 2 Tablet(s) PO QD take 2 tablets (500 mg ) by oral route once daily for 1 day then 1 tablet (250 mg) by oral route once daily for 4 days No Start Date 06/06/2010 Inactive hydrocodone-acetamin ophen 5 mg-500 mg Tab RxNorm: 687290 1 Tablet(s) PO Q4-6H as needed for pain No Start Date 07/12/2011 Inactive Levbid 0.375 mg 12 h r Tab RxNorm: 8077958 1 Tablet(s) PO BID a s needed for stomach cramping No Start Date 11/21/2011 Inactive Phenergan 25 mg rect al suppository RxNorm: 877980 1 Suppository RTL Q4H as needed for nausea and vomiting No Start Date 07/19/2015 Inactive baclofen 10 mg tablet RxNorm: 986238 1 Tablet(s) PO QHS No Start Date 11/03/2014 Inactive loratadine 10 mg tablet RxNorm: 719396 1 Tablet(s) PO QD No Start Date 10/03/2018 Inactive famotidine 40 mg tablet RxNorm: 094253 1 Tablet(s) PO BID No Start Date 06/22/2016 Inactive Zithromax Z-Leonel 250 mg Tab RxNorm: 303430 Tablet(s) PO as directed No Start Date 11/15/2010 Inactive Singulair 10 mg tablet RxNorm: 912821 1 Tablet(s) PO QHS No Start Date 07/10/2017 Inactive Premarin 0.625 mg/g Vaginal Cream RxNorm: 909496 1 Gram(s) VAG QHS 2-3 times weekly No Start Date 01/05/2011 Inactive Alprazolam 0.25 mg Tab RxNorm: 866938 1 Tablet(s) PO TID No Start Date 03/09/2010 Inactive Claritin 10 mg tablet RxNorm: 360914 1 Tablet(s) PO QD No Start Date 11/03/2014 Inactive Medication Administered No Medication Administered data Immunizations Vaccine Codes Date Status Influenza CVX: 141 03/22 completed Tetanus, Diptheria, Pertussis CVX: 115 12/28/2017 completed Zoster Unknown 10/04/2017 completed Influenza CVX: 141 03/28 completed Influenza CVX: 141 04/22 completed Influenza CVX: 141 03/09 completed Influenza CVX: 141 06/29 completed Pediatric Influenza CVX: 141 06/29/2011 completed Influenza (Adult) CVX: 141 03/09/2010 completed Assessments Condition Codes Effectiv e Dates Pain in thoracic spine ICD-10: M54.6 ICD-9: 724.1 01/16/2019 Muscle spasm of back ICD-10: M62.830 ICD-9: 724.8 01/16/2019 Hematuria, unspecified ICD-10: R31.9 ICD-9: 599.70 01/14/2019 Low back pain ICD-10: M54.5 ICD-9: 724.2 01/14/2019 Left lower quadrant pain ICD-10: R10 .32 ICD-9: 789.04 01/09/2019 Encounter for general adult medical exam ination without abnormal findings ICD-10: Z00.00 ICD-9: V70.9 11/21/2018 Hypothyroidism, unspecified ICD-10: E03.9 ICD-9: 244.9 10/04/2018 Other fatigue ICD-10: R53.83 ICD-9: 780.79 10/04/2018 Other cervical disc degeneration, unspecified cervical region ICD-10: M50.30 ICD-9: 722.4 10/04/2018 Cervicalgia ICD-10: M54.2 ICD-9: 723.1 08/06/2018 Impaired fasting glucose ICD-10: R73 .01 ICD-9: 790.29 08/06/2018 Radiculopathy, lumbosacral region IC D-10: M54.17 ICD-9: 724.4 06/21/2018 Abrasion, left lower leg, sequela IC D-10: S80.812S ICD-9: 906.2 06/21/2018 Urinary tract infection, site not specified ICD-10: N39.0 ICD-9: 599.0 06/13/2018 Other dorsalgia ICD-10: M54.89 ICD-9: 724.5 05/31/2018 FLU VACCINE ICD-10: Z23 ICD-9: V04.81 03/22/2018 Essential (primary) hypertension ICD -10: I10 ICD-9: 401.9 02/06/2018 Other seasonal allergic rhinitis ICD -10: J30.2 ICD-9: 477.9 02/06/2018 VACCINE FOR TDAP ICD-10: Z23 ICD-9: V06.1 12/28/2017 Laceration of blood vessel of right inde x finger, initial encounter ICD-10: S65.510A ICD-9: 903.5 12/28/2017 Tinnitus, bilateral ICD-10: H93.13 ICD-9: 388.31 12/18/2017 Pulsatile tinnitus, bilateral ICD-10 : H93.A3 ICD-9: 388.30 12/11/2017 VACCIN FOR DISEASE NEC (HPV or Zostavax) ICD-10: Z23 ICD-9: V05.8 10/04/2017 Gastro-esophageal reflux disease without esophagitis ICD-10: K21.9 ICD-9: 530.81 09/11/2017 Hyperglycemia, unspecified ICD-10: R 73.9 ICD-9: 790.29 09/11/2017 Pain in right knee ICD-10: M25.561 ICD-9: 719.46 09/11/2017 Irritant contact dermatitis, unspecified cause ICD-10: L24.9 ICD-9: 692.9 03/28/2017 Nonscarring hair loss, unspecified I CD-10: L65.9 ICD-9: 704.00 11/22/2016 Other general symptoms and signs ICD -10: R68.89 ICD-9: 780.99 11/22/2016 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 9 ICD-9: 692.9 07/28/2016 Incisional hernia without obstruction or gangrene ICD-10: K43.2 ICD-9: 553.21 04/26/2016 Other fecal abnormalities ICD-10: R1 9.5 ICD-9: 792.1 01/04/2016 Irritant contact dermatitis due to detergents ICD-10: L24.0 ICD-9: 692.0 12/09/2015 Other specified disorders of kidney and ureter ICD-10: N28.89 ICD-9: 591 11/26/2015 Hepatomegaly, not elsewhere classified ICD-10: R16.0 ICD-9: 789.1 11/26/2015 Precordial pain ICD-10: R07.2 ICD-9: 786.50 09/10/2015 Nausea ICD-10: R11.0 ICD-9: 787.02 07/20/2015 Pain in left elbow ICD-10: M25.522 ICD-9: 719.42 05/04/2015 Pleurodynia ICD-10: R07.81 ICD-9: 786.50 04/23/2015 Contusion of left lower leg, sequela ICD-10: S80.12XS ICD-9: 906.3 04/23/2015 Unspecified abdominal pain ICD-10: R 10.9 ICD-9: 789.00 03/24/2015 Ventral hernia without obstruction or gangrene ICD-10: K43.9 ICD-9: 553.20 03/24/2015 Constipation, unspecified ICD-10: K5 9.00 ICD-9: 564.00 03/24/2015 Chondrocostal junction syndrome [[place]ietze] ICD-10: M94.0 ICD-9: 733.6 03/05/2015 Generalized abdominal pain ICD-10: R 10.84 ICD-9: 789.00 03/05/2015 ABDOMINAL PAIN ICD-9: 789.00 02/19/2015 DISTURBANCE OF SKIN SENSATION (Paresthesia) ICD-9: 782.0 02/19/2015 HYPOTHYROIDISM ICD-9: 244.9 02/19/2015 DIVERTICULITIS, COLONIC ICD-9: 562.11 02/19/2015 HYPERTENSION ICD-9: 401.9 02/19/2015 Diaphoresis ICD-9: 780.8 12/25/2014 PAIN, LOWER BACK ICD-9: 724.2 11/26/2014 Contusion of leg ICD-9: 924.5 11/26/2014 IBS ICD-9: 564.1 015 GERD ICD-9: 530.81 11/04 Leg pain ICD-9: 729.5 Headache ICD-9: 784.0 DYSURIA ICD-9: 788.1 10/2014 Elevated liver enzymes ICD-9: 790.5 07/03/2014 SINUSITIS, ACUTE ICD-9: 461.9 06/02/2014 VAGINITIS ICD-9: 623.5 1 Leg cramps ICD-9: 729.82 05/22/2014 ALLERGIC RHINITIS ICD-9: 477.9 04/08/2014 Thoracic back pain ICD-9: 724.1 03/05/2014 COUGH ICD-10: R05 ICD-9: 786.2 03/05/2014 BRONCHITIS, ACUTE ICD-9: 466.0 07/29/2013 Constipation ICD-9: 564.00 03/20/2013 Plantar fasciitis ICD-9: 728.71 02/12/2013 Muscle spasm ICD-9: 728.85 11/05/2012 Skin lesion ICD-9: 709.9 11/05/2012 Cervicalgia ICD-9: 723.1 10/04/2012 MALAISE AND FATIGUE ICD-9: 780.79 09/24/2012 Wrist pain ICD-9: 719.43 05/10/2012 Lateral epicondylitis ICD-9: 726.32 05/10/2012 Enthesopathy of the wrist and carpus ICD-9: 726.4 03/07/2012 DYSPHAGIA NEC ICD-9: 787.29 03/07/2012 INSECT BITE HIP/LEG ICD-9: 916.4 11/22/2011 HEMATURIA NOS ICD-9: 599.70 07/14/2011 URINARY TRACT INFECTION ICD-9: 599.0 07/11/2011 TMJ arthritis ICD-9: 524.69 07/06/2011 Rectal fissure ICD-9: 565.0 07/06/2011 MIGRAINE NOS/NOT INTRCBL ICD-9: 346.90 07/06/2011 Onychomycosis ICD-9: 110.1 05/05/2011 ENTHESOPATHY OF HIP ICD-9: 726.5 05/05/2011 Pulmonary arterial hypertension ICD- 9: 416.8 03/02/2011 PALPITATIONS ICD-9: 785.1 03/02/2011 CHEST PAIN NOS ICD-9: 786.50 03/02/2011 Hyperglycemia ICD-9: 790.29 01/14/2011 LIPOMA ICD-9: 214.9 11/03 ATROPHIC VAGINITIS ICD-9: 627.3 11/16/2010 Tachycardia ICD-9: 785.0 11/04/2010 HEMATURIA ICD-9: 599.7 0 06/28/2010 Hoarseness ICD-9: 784.42 06/07/2010 COUGH ICD-9: 786.2 04/19 ACUTE LARYNGITIS W/OBSTRUCT ICD-9: 464.01 04/19/2010 CYSTITIS ICD-9: 595.9 Reason For Visit Reason For Visit Effective Dates Notes back pain 01/16/2019 back pain 01/14/2019 abdominal pain 01/09/2019 well woman exam (65+ years) 11/21/2018 Welcome to Medicare Physical painful urination 11/01/2018 follow up 10/04/2018 follow up 08/06/2018 6mo fwup painful urination 06/21/2018 lab draw 06/13/2018 repe at urine culture flank pain 05/31/2018 un sharon rib cage on both sides injection(s) 03/22/2018 requesting flu shot follow up 02/06/2018 injection(s) 12/28/2017 TDAP tinnitus 12/18/2017 blood pressure check 12/11/2017 follow up 09/11/2017 lymph node enlargement/mass 03/28/2017 Since patient had right knee scope in August has had intermittent rash to site sinus pain 09/12/2016 rash 07/28/2016 MRI sche duled for this coming Monday - Currently on XS tylenol prn for pain hernia 04/26/2016 injection(s) 04/22/2016 Flu Vaccine follow up 01/04/2016 Hem occult Stool follow up 12/09/2015 leg pain/sciatica 09/10/2015 nausea 07/20/2015 follow up 04/23/2015 ER fwup follow up 03/24/[address] injection(s) 03/09/2015 Influenza follow up 03/05/2015 Dis cuss EGD and possible need of CTscan follow up 02/19/2015 hypothyroid 12/25/2014 P atient had recent labs and wonders if could adjust to help the sweating follow up 11/26/2014 fatigue 11/04/2014 headache 09/01/2014 Havi dinora reactions to allergy shots---instructed to take gemma and benadryl painful urination 07/10/2014 menopausal symptoms 06/02/2014 blood pressure check 05/26/2014 sinusitis 04/08/2014 back pain 03/05/2014 follow up 07/29/2013 Urg ent care abdominal pain 03/20/2013 heel pain 02/12/2013 sores 11/05/2012 back pain 10/04/2012 ecchymosis 09/24/2012 Th inks may be related to metoprolol arm pain 05/10/2012 fatigue 03/07/2012 follow up 02/01/2012 6wk fwup follow up 12/20/2011 dis cuss labs arthropod bite 11/22/2011 painful urination 07/14/2011 abdominal pain 07/11/2011 started on augmentin 875mg/hydrocodone/flagyl 250/dicyclomine 20mg to cover UTI/diverticulitis skin lesion 07/06/2011 t o left knee area wrist pain 05/26/2011 hip pain 05/16/2011 requ est OMT back pain 05/05/2011 S/P fall on 04/27/11 follow up 04/05/2011 Urg ent Care fwup follow up 03/02/2011 Dr Rendon would 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 Chase. Starting taking KCl after lab work showed hypokalemia. Pt having a lot of pain in legs, attributes that to starting KCl. ~generic 08/05/2010 F/U [facility] for cough, bronchitis, sinus congestions. Continues to have sinus congestion, pain and fullness. Secretions are yellow. Pt states cough is getting better. Finished ABX from [facility]. cough 07/23/2010 painful urination 06/14/2010 high blood pressure 06/07/2010 taking lisinopril HCT 20/12.5 follow up 05/12/2010 sti [address] having hoarseness and thinks is still related to the bystolic abdominal pain 04/27/2010 ~generic 04/19/2010 goldy farias problems with laryngitis, has concerns it may be related to Bystolic anxiety 03/09/2010 tessy farias a refill of alprazolam follow up 01/04/2010 2wk fwup on Bystolic follow up 12/14/2009 fro m [facility]/ER follow up 11/23/2009 Results Observation Observation Code Item Item Code Result Date GFR CALC 8834977 GFR AA >60 ML/MIN 01/14/2011 GFR CALC [id number] GFR NON -AA >60 ML/MIN 01/14/2011 COMPREHENSIVE METABOLIC 06834 AST 15 U/L 01/14/2011 COMPREHENSIVE METABOLIC 18295 ALT 17 IU/L 01/14/2011 COMPREHENSIVE METABOLIC 08444 BUN 12 MG/DL 01/14/2011 COMPREHENSIVE METABOLIC 94413 ALBUMIN 4.0 GM/DL 01/14/2011 COMPREHENSIVE METABOLIC 12504 CHLORIDE 101 MMOL/L 01/14/2011 COMPREHENSIVE METABOLIC 14060 BILI TOT 0.3 MG/DL 01/14/2011 COMPREHENSIVE METABOLIC 55949 ALK PHOS 53 U/L 01/14/2011 COMPREHENSIVE METABOLIC 03058 SODIUM 136 MMOL/L 01/14/2011 COMPREHENSIVE METABOLIC 82913 CREATININE 0.60 MG/DL 01/14/2011 COMPREHENSIVE METABOLIC 03867 CALCIUM 9.3 MG/DL 01/14/2011 COMPREHENSIVE METABOLIC 07890 POTASSIUM 4.1 MMOL/L 01/14/2011 COMPREHENSIVE METABOLIC 68026 PROT TOT 7.0 GM/DL 01/14/2011 COMPREHENSIVE METABOLIC 07896 Glucose 92 MG/DL 01/14/2011 COMPREHENSIVE METABOLIC 06297 BICARB 27 MMOL/L 01/14/2011 COMPREHENSIVE METABOLIC 14325 ANION GAP 8 MEQ/L 01/14/2011 ERYTHROCYTE SEDIMENTATION RATE 05009 ESR 39 MM/HR 01/05/2011 COMPREHENSIVE METABOLIC 25959 AST 16 U/L 01/05/2011 COMPREHENSIVE METABOLIC 09443 ALT 19 U/L 01/05/2011 COMPREHENSIVE METABOLIC 53586 BUN 15 MG/DL 01/05/2011 COMPREHENSIVE METABOLIC 50786 ALBUMIN 3.8 GM/DL 01/05/2011 COMPREHENSIVE METABOLIC 54594 CHLORIDE 101 MMOL/L 01/05/2011 COMPREHENSIVE METABOLIC 38210 BILI TOT 0.3 MG/DL 01/05/2011 COMPREHENSIVE METABOLIC 17565 ALK PHOS 55 U/L 01/05/2011 COMPREHENSIVE METABOLIC 75488 SODIUM 139 MMOL/L 01/05/2011 COMPREHENSIVE METABOLIC 95169 CREATININE 0.59 MG/DL 01/05/2011 COMPREHENSIVE METABOLIC 47863 CALCIUM 8.9 MG/DL 01/05/2011 COMPREHENSIVE METABOLIC 20203 POTASSIUM 3.8 MMOL/L 01/05/2011 COMPREHENSIVE METABOLIC 39703 PROT TOT 6.7 GM/DL 01/05/2011 COMPREHENSIVE METABOLIC 45948 Glucose 121 MG/DL 01/05/2011 COMPREHENSIVE METABOLIC 27496 BICARB 28 MMOL/L 01/05/2011 COMPREHENSIVE METABOLIC 04064 ANION GAP 10 MMOL/L 01/05/2011 GFR CALC 0107333 GFR AA >60 ML/MIN 01/05/2011 GFR CALC [id number] GFR NON -AA >60 ML/MIN 01/05/2011 COMPLETE BLOOD COUNT 63730 WBC 8.7 10e9/L 01/05/2011 COMPLETE BLOOD COUNT [id number] RBC 4.78 10e12/L 1 COMPLETE BLOOD COUNT [id number] HGB 13.3 g/dL 01/05/2011 COMPLETE BLOOD COUNT [id number] HCT DET 40.6 % 01/05/2011 COMPLETE BLOOD COUNT 85121 MCV 84.9 fL 01/05/2011 COMPLETE BLOOD COUNT 16511 MCH 27.8 pg 01/05/2011 COMPLETE BLOOD COUNT 91824 MCHC 32.8 g/dL 01/05/2011 COMPLETE BLOOD COUNT 70362 PLT 273 10e9/L 01/05/2011 COMPLETE BLOOD COUNT 90475 MPV 9.8 fL 01/05/2011 COMPLETE BLOOD COUNT 79512 AMANDA % 65.9 % 01/05/2011 COMPLETE BLOOD COUNT 61596 LY % 24.5 % 01/05/2011 COMPLETE BLOOD COUNT 37666 MON % 6.9 % 01/05/2011 COMPLETE BLOOD COUNT 59567 EOS % 2.1 % 01/05/2011 COMPLETE BLOOD COUNT 64147 BASO % 0.6 % 01/05/2011 COMPLETE BLOOD COUNT 69977 RDW 14.7 % 01/05/2011 COMPLETE BLOOD COUNT 82189 ABS AMANDA 5.73 10e9/L 01/05/2011 COMPLETE BLOOD COUNT 91167 ABS LYMPH 2.13 10e9/L 01/05/2011 COMPLETE BLOOD COUNT 17308 ABS MONO 0.60 10e9/L 01/05/2011 COMPLETE BLOOD COUNT [id number] ABS EOS 0.18 10e9/L 01/05/2011 COMPLETE BLOOD COUNT 95792 ABS BASO 0.05 10e9/L 01/05/2011 COMPLETE BLOOD COUNT 61516 RDW-SD 44.7 fL 01/05/2011 NO UA [id number] NO UA CANCELED 07/08/2010 Review of Systems System Result Effective Dates Musculoskeletal back pain 01/16/2019 Gastrointestinal abdominal pain 01/09/2019 Gastrointestinal No constipation 01/09/2019 Gastrointestinal nausea 01/09/2019 Constitutional No night sweats 11/21/2018 Constitutional No fatigue 11/21/2018 Constitutional No fever 11/21/2018 Constitutional No insomnia 11/21/2018 Constitutional No weight loss 11/21/2018 Eyes No eye pain 019 Eyes No photophobia 11/03 Eyes No vision change Eyes No visual disturbance 11/21/2018 Ears/Nose/Throat/Neck No hearing loss 11/21/2018 Ears/Nose/Throat/Neck No nasal discharge 11/21/2018 Ears/Nose/Throat/Neck No sinus congestion 11/21/2018 Ears/Nose/Throat/Neck No sore throat 11/21/2018 Cardiovascular No arrhythmia 11/21/2018 Cardiovascular No chest pain/pressure 11/21/2018 Cardiovascular No edema 11/21/2018 Cardiovascular No exercise intolerance 11/21/2018 Cardiovascular No orthopnea 11/21/2018 Cardiovascular No palpitations 11/21/2018 Respiratory No asthma Respiratory No cough Respiratory No dyspnea 0 11/21/2018 Respiratory No pleuritic pain 11/21/2018 Respiratory No productive sputum 11/21/2018 Respiratory No wheezing 11/21/2018 Gastrointestinal No hemorrhoids 11/21/2018 Gastrointestinal No hepatitis 11/21/2018 Gastrointestinal No abdominal pain 11/21/2018 Gastrointestinal No constipation 11/21/2018 Gastrointestinal No diarrhea 11/21/2018 Gastrointestinal No gastroesophageal reflu x 11/21/2018 Gastrointestinal No melena 11/21/2018 Gastrointestinal No nausea 11/21/2018 Gastrointestinal No vomiting 11/21/2018 Genitourinary/Nephrology No dysuria 11/21/2018 Genitourinary/Nephrology No nocturia 11/21/2018 Genitourinary/Nephrology No urinary incontinence 11/21/2018 Musculoskeletal No muscle weakness 11/21/2018 Musculoskeletal No myalgias 11/21/2018 Musculoskeletal No stiffness 11/21/2018 Musculoskeletal No swelling 11/21/2018 Dermatologic No rash Dermatologic No scar Neurologic No dizziness 11/21/2018 Neurologic No headache 0 11/21/2018 Neurologic No neck pain 11/21/2018 Neurologic No syncope Psychiatric No anxiety 0 11/21/2018 Psychiatric No depression 11/21/2018 Endocrine No goiter 11/03 Endocrine No hyperglycemia 11/21/2018 Endocrine No hypoglycemia 11/21/2018 Hematologic/Lymphatic No abnormal ec chymoses 11/21/2018 Hematologic/Lymphatic No petechiae 11/21/2018 Hematologic/Lymphatic No abnormal bl eeding and bruising 11/21/2018 Hematologic/Lymphatic No anemia 11/21/2018 Hematologic/Lymphatic No lymph node enlargement/mass 11/21/2018 Allergy/Immunology No food allergy 11/21/2018 Gastrointestinal constipation 10/04/2018 Gastrointestinal abdominal pain 10/04/2018 Constitutional fatigue 0 10/04/2018 Musculoskeletal low back pain 10/04/2018 Musculoskeletal neck pain 10/04/2018 Constitutional No night sweats 08/06/2018 Constitutional No fatigue 08/06/2018 Constitutional No fever 08/06/2018 Constitutional No insomnia 08/06/2018 Constitutional No weight loss 08/06/2018 Eyes No eye pain 019 Eyes No photophobia 09/2018 Eyes No vision change Eyes No visual disturbance 08/06/2018 Ears/Nose/Throat/Neck No hearing loss 08/06/2018 Ears/Nose/Throat/Neck No nasal discharge 08/06/2018 Ears/Nose/Throat/Neck No sinus congestion 08/06/2018 Ears/Nose/Throat/Neck No sore throat 08/06/2018 Cardiovascular No arrhythmia 08/06/2018 Cardiovascular No chest pain/pressure 08/06/2018 Cardiovascular No edema 08/06/2018 Cardiovascular No exercise intolerance 08/06/2018 Cardiovascular No orthopnea 08/06/2018 Cardiovascular No palpitations 08/06/2018 Respiratory No asthma Respiratory No cough 09/2018 Respiratory No dyspnea 0 08/06/2018 Respiratory No pleuritic pain 08/06/2018 Respiratory No productive sputum 08/06/2018 Respiratory No wheezing 08/06/2018 Gastrointestinal No hemorrhoids 08/06/2018 Gastrointestinal No hepatitis 08/06/2018 Gastrointestinal No abdominal pain 08/06/2018 Gastrointestinal No constipation 08/06/2018 Gastrointestinal No diarrhea 08/06/2018 Gastrointestinal No gastroesophageal reflu x 08/06/2018 Gastrointestinal No melena 08/06/2018 Gastrointestinal No nausea 08/06/2018 Gastrointestinal No vomiting 08/06/2018 Genitourinary/Nephrology No dysuria 08/06/2018 Genitourinary/Nephrology No nocturia 08/06/2018 Genitourinary/Nephrology No urinary incontinence 08/06/2018 Musculoskeletal No muscle weakness 08/06/2018 Musculoskeletal No myalgias 08/06/2018 Musculoskeletal No stiffness 08/06/2018 Musculoskeletal No swelling 08/06/2018 Dermatologic No rash 09/2018 Dermatologic No scar 09/2018 Neurologic No dizziness 08/06/2018 Neurologic No headache 0 08/06/2018 Neurologic No neck pain 08/06/2018 Neurologic No syncope Psychiatric No anxiety 0 08/06/2018 Psychiatric No depression 08/06/2018 Endocrine No goiter 03/0 09/2018 Endocrine No hyperglycemia 08/06/2018 Endocrine No hypoglycemia 08/06/2018 Hematologic/Lymphatic No abnormal ec chymoses 08/06/2018 Hematologic/Lymphatic No petechiae 08/06/2018 Hematologic/Lymphatic No abnormal bl eeding and bruising 08/06/2018 Hematologic/Lymphatic No anemia 08/06/2018 Hematologic/Lymphatic No lymph node enlargement/mass 08/06/2018 Allergy/Immunology No food allergy 08/06/2018 Musculoskeletal back pain 08/06/2018 Musculoskeletal neck pain 08/06/2018 Endocrine hypothyroid Musculoskeletal low back pain 06/21/2018 Neurologic pain, limb Musculoskeletal thoracic back pain 06/21/2018 Gastrointestinal No hemorrhoids 06/21/2018 Gastrointestinal No hepatitis 06/21/2018 Gastrointestinal No abdominal pain 06/21/2018 Gastrointestinal No constipation 06/21/2018 Gastrointestinal No diarrhea 06/21/2018 Gastrointestinal No gastroesophageal reflu x 06/21/2018 Gastrointestinal No melena 06/21/2018 Gastrointestinal No nausea 06/21/2018 Gastrointestinal No vomiting 06/21/2018 Dermatologic skin lesion 06/21/2018 Constitutional No fatigue 05/31/2018 Constitutional No fever 05/31/2018 Constitutional No chills 05/31/2018 Respiratory No cough Respiratory No chest congestion 05/31/2018 Respiratory No chest tightness 05/31/2018 Gastrointestinal No abdominal pain 05/31/2018 Gastrointestinal No constipation 05/31/2018 Gastrointestinal No diarrhea 05/31/2018 Musculoskeletal back pain 05/31/2018 Cardiovascular hypertension 02/06/2018 Cardiovascular chest pain/pressure 02/06/2018 Respiratory No asthma Respiratory No cough 09/2017 Respiratory No dyspnea 0 02/06/2018 Respiratory No pleuritic pain 02/06/2018 Respiratory No productive sputum 02/06/2018 Respiratory No wheezing 02/06/2018 Gastrointestinal No hemorrhoids 02/06/2018 Gastrointestinal No hepatitis 02/06/2018 Gastrointestinal No abdominal pain 02/06/2018 Gastrointestinal No constipation 02/06/2018 Gastrointestinal No diarrhea 02/06/2018 Gastrointestinal No gastroesophageal reflu x 02/06/2018 Gastrointestinal No melena 02/06/2018 Gastrointestinal No nausea 02/06/2018 Gastrointestinal No vomiting 02/06/2018 Genitourinary/Nephrology No dysuria 02/06/2018 Genitourinary/Nephrology No nocturia 02/06/2018 Genitourinary/Nephrology No urinary incontinence 02/06/2018 Musculoskeletal No muscle weakness 02/06/2018 Musculoskeletal No myalgias 02/06/2018 Musculoskeletal No stiffness 02/06/2018 Musculoskeletal No swelling 02/06/2018 Dermatologic No rash 09/2017 Dermatologic No scar 09/2017 Neurologic No dizziness 02/06/2018 Neurologic No headache 0 02/06/2018 Neurologic No neck pain 02/06/2018 Neurologic No syncope Psychiatric No anxiety 0 02/06/2018 Psychiatric No depression 02/06/2018 Endocrine No goiter 09/0 09/2017 Endocrine No hyperglycemia 02/06/2018 Endocrine No hypoglycemia 02/06/2018 Endocrine hypothyroid Endocrine hyperlipidemia 02/06/2018 Ears/Nose/Throat/Neck No hearing loss 12/18/2017 Ears/Nose/Throat/Neck No nasal discharge 12/18/2017 Ears/Nose/Throat/Neck No sinus congestion 12/18/2017 Ears/Nose/Throat/Neck No sore throat 12/18/2017 Ears/Nose/Throat/Neck No dizziness 12/18/2017 Ears/Nose/Throat/Neck tinnitus 12/18/2017 Musculoskeletal No muscle weakness 09/11/2017 Musculoskeletal No myalgias 09/11/2017 Musculoskeletal No stiffness 09/11/2017 Musculoskeletal No swelling 09/11/2017 Musculoskeletal joint complaint 09/11/2017 Cardiovascular No arrhythmia 09/11/2017 Cardiovascular No chest pain/pressure 09/11/2017 Cardiovascular No edema 09/11/2017 Cardiovascular No exercise intolerance 09/11/2017 Cardiovascular No orthopnea 09/11/2017 Cardiovascular No palpitations 09/11/2017 Cardiovascular hypertension 09/11/2017 Respiratory No asthma Respiratory No cough 02/2018 Respiratory No dyspnea 0 09/11/2017 Respiratory No pleuritic pain 09/11/2017 Respiratory No productive sputum 09/11/2017 Respiratory No wheezing 09/11/2017 Gastrointestinal No hemorrhoids 09/11/2017 Gastrointestinal No hepatitis 09/11/2017 Gastrointestinal No abdominal pain 09/11/2017 Gastrointestinal No constipation 09/11/2017 Gastrointestinal No diarrhea 09/11/2017 Gastrointestinal No gastroesophageal reflu x 09/11/2017 Gastrointestinal No melena 09/11/2017 Gastrointestinal No nausea 09/11/2017 Gastrointestinal No vomiting 09/11/2017 Genitourinary/Nephrology No dysuria 09/11/2017 Genitourinary/Nephrology No nocturia 09/11/2017 Genitourinary/Nephrology No urinary incontinence 09/11/2017 Dermatologic No rash 02/2018 Dermatologic No scar 02/2018 Neurologic No dizziness 09/11/2017 Neurologic No headache 0 09/11/2017 Neurologic No neck pain 09/11/2017 Neurologic No syncope Psychiatric No anxiety 0 09/11/2017 Psychiatric No depression 09/11/2017 Endocrine No goiter 04/0 02/2018 Endocrine No hyperglycemia 09/11/2017 Endocrine No hypoglycemia 09/11/2017 Endocrine hypothyroid Ears/Nose/Throat/Neck No hearing loss 09/11/2017 Ears/Nose/Throat/Neck No nasal discharge 09/11/2017 Ears/Nose/Throat/Neck No sinus congestion 09/11/2017 Ears/Nose/Throat/Neck No sore throat 09/11/2017 Constitutional No night sweats 09/11/2017 Constitutional No fatigue 09/11/2017 Constitutional No fever 09/11/2017 Constitutional No insomnia 09/11/2017 Constitutional No weight loss 09/11/2017 Constitutional weight gain/obesity 09/11/2017 Genitourinary/Nephrology dysuria 03/28/2017 Cardiovascular No arrhythmia 03/28/2017 Cardiovascular No chest pain/pressure 03/28/2017 Cardiovascular No edema 03/28/2017 Cardiovascular No exercise intolerance 03/28/2017 Cardiovascular No orthopnea 03/28/2017 Cardiovascular No palpitations 03/28/2017 Respiratory No asthma Respiratory No cough Respiratory No dyspnea 1 Respiratory No pleuritic pain 03/28/2017 Respiratory No productive sputum 03/28/2017 Respiratory No wheezing 03/28/2017 Gastrointestinal gastroesophageal reflux 03/28/2017 Ears/Nose/Throat/Neck No hearing loss 03/28/2017 Ears/Nose/Throat/Neck No nasal discharge 03/28/2017 Ears/Nose/Throat/Neck No sinus congestion 03/28/2017 Ears/Nose/Throat/Neck No sore throat 03/28/2017 Musculoskeletal No muscle weakness 03/28/2017 Musculoskeletal No myalgias 03/28/2017 Musculoskeletal No stiffness 03/28/2017 Musculoskeletal No swelling 03/28/2017 Musculoskeletal neck pain 03/28/2017 Endocrine hypothyroid Constitutional fatigue 0 09/12/2016 Ears/Nose/Throat/Neck sinus congestion 09/12/2016 Ears/Nose/Throat/Neck sinusitis 09/12/2016 Respiratory No asthma Respiratory No cough 03/2017 Respiratory No dyspnea 0 09/12/2016 Respiratory No pleuritic pain 09/12/2016 Respiratory No productive sputum 09/12/2016 Respiratory No wheezing 09/12/2016 Neurologic headache 09/03 Constitutional fever 03/2017 Musculoskeletal joint complaint 07/28/2016 Dermatologic rash 2016 Gastrointestinal No hemorrhoids 12/09/2015 Gastrointestinal No hepatitis 12/09/2015 Gastrointestinal abdominal pain 12/09/2015 Gastrointestinal No constipation 12/09/2015 Gastrointestinal No diarrhea 12/09/2015 Gastrointestinal No gastroesophageal reflu x 12/09/2015 Gastrointestinal No melena 12/09/2015 Gastrointestinal No nausea 12/09/2015 Gastrointestinal No vomiting 12/09/2015 Dermatologic rash 2015 Cardiovascular chest pain/pressure 09/10/2015 Musculoskeletal back pain 09/10/2015 Musculoskeletal low back pain 09/10/2015 Musculoskeletal joint complaint 04/23/2015 Dermatologic ecchymosis 04/23/2015 Gastrointestinal abdominal pain 03/24/2015 Gastrointestinal No constipation 03/24/2015 Gastrointestinal No gas and bloating 03/24/2015 Gastrointestinal abdominal pain 03/05/2015 Gastrointestinal gastroesophageal reflux 03/05/2015 Gastrointestinal constipation 03/05/2015 Gastrointestinal diarrhea 03/05/2015 Musculoskeletal back pain 03/05/2015 Endocrine hypothyroid Ears/Nose/Throat/Neck No hearing loss 02/19/2015 Ears/Nose/Throat/Neck No nasal discharge 02/19/2015 Ears/Nose/Throat/Neck No sinus congestion 02/19/2015 Ears/Nose/Throat/Neck No sore throat 02/19/2015 Cardiovascular No arrhythmia 02/19/2015 Cardiovascular No chest pain/pressure 02/19/2015 Cardiovascular No edema 02/19/2015 Cardiovascular No exercise intolerance 02/19/2015 Cardiovascular No orthopnea 02/19/2015 Cardiovascular No palpitations 02/19/2015 Respiratory No asthma Respiratory No cough Respiratory No dyspnea 0 02/19/2015 Respiratory No pleuritic pain 02/19/2015 Respiratory No productive sputum 02/19/2015 Respiratory No wheezing 02/19/2015 Gastrointestinal abdominal pain 02/19/2015 Genitourinary/Nephrology No dysuria 02/19/2015 Genitourinary/Nephrology No nocturia 02/19/2015 Genitourinary/Nephrology No urinary incontinence 02/19/2015 Musculoskeletal No muscle weakness 02/19/2015 Musculoskeletal No myalgias 02/19/2015 Musculoskeletal No stiffness 02/19/2015 Musculoskeletal No swelling 02/19/2015 Dermatologic No rash Dermatologic No scar Neurologic No dizziness 02/19/2015 Neurologic No headache 0 02/19/2015 Neurologic neck pain Neurologic No syncope Psychiatric No anxiety 0 02/19/2015 Psychiatric No depression 02/19/2015 Musculoskeletal low back pain 02/19/2015 Musculoskeletal arthralgia(s) 02/19/2015 Neurologic paresthesia 0 02/19/2015 Hematologic/Lymphatic No abnormal ec chymoses 02/19/2015 Hematologic/Lymphatic No petechiae 02/19/2015 Hematologic/Lymphatic No abnormal bl eeding and bruising 02/19/2015 Hematologic/Lymphatic No anemia 02/19/2015 Hematologic/Lymphatic No lymph node enlargement/mass 02/19/2015 Musculoskeletal back pain 02/19/2015 Gastrointestinal gastroesophageal reflux 02/19/2015 Gastrointestinal gas and bloating 02/19/2015 Eyes No eye pain 015 Eyes No photophobia 02/03 Eyes No vision change Eyes No visual disturbance 02/19/2015 Constitutional diaphoresis 12/25/2014 Gastrointestinal abdominal pain 12/25/2014 Cardiovascular hypertension 11/26/2014 Gastrointestinal abdominal pain 11/26/2014 Gastrointestinal dyspepsia 11/26/2014 Dermatologic ecchymosis 11/26/2014 Constitutional No night sweats 11/04/2014 Constitutional No fatigue 11/04/2014 Constitutional No fever 11/04/2014 Constitutional No insomnia 11/04/2014 Constitutional No weight loss 11/04/2014 Eyes No eye pain 015 Eyes No photophobia 07/2014 Eyes No vision change Eyes No visual disturbance 11/04/2014 Ears/Nose/Throat/Neck No hearing loss 11/04/2014 Ears/Nose/Throat/Neck No nasal discharge 11/04/2014 Ears/Nose/Throat/Neck No sinus congestion 11/04/2014 Ears/Nose/Throat/Neck No sore throat 11/04/2014 Cardiovascular chest pain/pressure 11/04/2014 Cardiovascular fatigue 0 11/04/2014 Respiratory No asthma Respiratory No cough 07/2014 Respiratory No dyspnea 0 11/04/2014 Respiratory No pleuritic pain 11/04/2014 Respiratory No productive sputum 11/04/2014 Respiratory No wheezing 11/04/2014 Gastrointestinal abdominal pain 11/04/2014 Gastrointestinal diarrhea 11/04/2014 Gastrointestinal dyspepsia 11/04/2014 Gastrointestinal gastroesophageal reflux 11/04/2014 Genitourinary/Nephrology No dysuria 11/04/2014 Genitourinary/Nephrology No nocturia 11/04/2014 Genitourinary/Nephrology No urinary incontinence 11/04/2014 Musculoskeletal back pain 11/04/2014 Psychiatric No anxiety 0 11/04/2014 Psychiatric No depression 11/04/2014 Neurologic No dizziness 11/04/2014 Neurologic No headache 0 11/04/2014 Neurologic No neck pain 11/04/2014 Neurologic No syncope Endocrine hypothyroid Hematologic/Lymphatic No abnormal ec chymoses 11/04/2014 Hematologic/Lymphatic No petechiae 11/04/2014 Hematologic/Lymphatic No abnormal bl eeding and bruising 11/04/2014 Hematologic/Lymphatic No anemia 11/04/2014 Hematologic/Lymphatic No lymph node enlargement/mass 11/04/2014 Allergy/Immunology No food allergy 11/04/2014 Constitutional No night sweats 09/01/2014 Constitutional No fatigue 09/01/2014 Constitutional No fever 09/01/2014 Constitutional No insomnia 09/01/2014 Constitutional No weight loss 09/01/2014 Ears/Nose/Throat/Neck No hearing loss 09/01/2014 Ears/Nose/Throat/Neck No nasal discharge 09/01/2014 Ears/Nose/Throat/Neck No sinus congestion 09/01/2014 Ears/Nose/Throat/Neck No sore throat 09/01/2014 Cardiovascular No arrhythmia 09/01/2014 Cardiovascular No chest pain/pressure 09/01/2014 Cardiovascular No edema 09/01/2014 Cardiovascular No exercise intolerance 09/01/2014 Cardiovascular No orthopnea 09/01/2014 Cardiovascular No palpitations 09/01/2014 Respiratory No asthma Respiratory No cough Respiratory No dyspnea 0 09/01/2014 Respiratory No pleuritic pain 09/01/2014 Respiratory No productive sputum 09/01/2014 Respiratory No wheezing 09/01/2014 Musculoskeletal arthralgia(s) 09/01/2014 Neurologic headache 08/05 Psychiatric No anxiety 0 09/01/2014 Psychiatric No depression 09/01/2014 Endocrine No goiter 08/05 Endocrine No hyperglycemia 09/01/2014 Endocrine No hypoglycemia 09/01/2014 Genitourinary/Nephrology vaginal discharge 06/02/2014 Genitourinary/Nephrology vaginal dryness 06/02/2014 Ears/Nose/Throat/Neck sinus congestion 06/02/2014 Ears/Nose/Throat/Neck sinusitis 06/02/2014 Cardiovascular hypertension 04/08/2014 Constitutional fatigue 1 06/08/2013 Musculoskeletal back pain 03/05/2014 Respiratory cough 2013 Constitutional fatigue 0 07/29/2013 Constitutional diaphoresis 07/29/2013 Respiratory cough 2013 Ears/Nose/Throat/Neck sinusitis 07/29/2013 Ears/Nose/Throat/Neck sinus congestion 07/29/2013 Musculoskeletal bone pain 02/12/2013 Musculoskeletal joint complaint 02/12/2013 Ears/Nose/Throat/Neck sinus congestion 02/12/2013 Ears/Nose/Throat/Neck sinusitis 02/12/2013 Dermatologic sores 11/05 Musculoskeletal low back pain 11/05/2012 Musculoskeletal back pain 11/05/2012 Musculoskeletal myalgias 11/05/2012 Constitutional No fever 11/05/2012 Respiratory No cough 08/2012 Ears/Nose/Throat/Neck No nasal discharge 11/05/2012 Ears/Nose/Throat/Neck No sore throat 11/05/2012 Musculoskeletal back pain 10/04/2012 Neurologic pain, limb Cardiovascular fatigue 0 09/24/2012 Cardiovascular hypertension 09/24/2012 Constitutional fatigue 0 09/24/2012 Respiratory No asthma Respiratory No cough Respiratory No dyspnea 0 09/24/2012 Respiratory No pleuritic pain 09/24/2012 Respiratory No productive sputum 09/24/2012 Respiratory No wheezing 09/24/2012 Musculoskeletal arthralgia(s) 05/10/2012 Musculoskeletal joint complaint 05/10/2012 Neurologic paresthesia 1 07/11/2011 Constitutional fatigue 1 Ears/Nose/Throat/Neck sinusitis 03/07/2012 Ears/Nose/Throat/Neck sinus congestion 03/07/2012 Cardiovascular No arrhythmia 03/07/2012 Neurologic No dizziness 03/07/2012 Neurologic No headache 1 Neurologic No neck pain 03/07/2012 Neurologic No syncope Psychiatric No anxiety 1 Psychiatric depression 1 Endocrine No goiter 08/2011 Endocrine No hyperglycemia 03/07/2012 Endocrine No hypoglycemia 03/07/2012 Endocrine hypothyroid Hematologic/Lymphatic No abnormal ec chymoses 03/07/2012 Hematologic/Lymphatic No petechiae 03/07/2012 Hematologic/Lymphatic No abnormal bl eeding and bruising 03/07/2012 Hematologic/Lymphatic No anemia 03/07/2012 Hematologic/Lymphatic No lymph node enlargement/mass 03/07/2012 Cardiovascular No chest pain/pressure 03/07/2012 Cardiovascular No edema 03/07/2012 Cardiovascular No exercise intolerance 03/07/2012 Cardiovascular No orthopnea 03/07/2012 Cardiovascular No palpitations 03/07/2012 Respiratory No asthma Respiratory No cough 08/2011 Respiratory No dyspnea 1 Respiratory No pleuritic pain 03/07/2012 Respiratory No productive sputum 03/07/2012 Respiratory No wheezing 03/07/2012 Gastrointestinal No hemorrhoids 03/07/2012 Gastrointestinal No hepatitis 03/07/2012 Gastrointestinal No abdominal pain 03/07/2012 Gastrointestinal No constipation 03/07/2012 Gastrointestinal No diarrhea 03/07/2012 Gastrointestinal No gastroesophageal reflu x 03/07/2012 Gastrointestinal No melena 03/07/2012 Gastrointestinal No nausea 03/07/2012 Gastrointestinal No vomiting 03/07/2012 Genitourinary/Nephrology No dysuria 03/07/2012 Genitourinary/Nephrology No nocturia 03/07/2012 Genitourinary/Nephrology No urinary incontinence 03/07/2012 Gastrointestinal dysphagia 03/07/2012 Musculoskeletal joint complaint 03/07/2012 Dermatologic No rash 08/2011 Dermatologic No scar 08/2011 Endocrine hypothyroid Constitutional fatigue 0 02/01/2012 Constitutional fatigue 0 12/20/2011 Musculoskeletal arthralgia(s) 12/20/2011 Musculoskeletal joint complaint 12/20/2011 Constitutional No fever 11/22/2011 Ears/Nose/Throat/Neck No nasal discharge 11/22/2011 Ears/Nose/Throat/Neck No otalgia 11/22/2011 Ears/Nose/Throat/Neck No sore throat 11/22/2011 Respiratory No cough Dermatologic rash 2011 Gastrointestinal abdominal pain 07/11/2011 Gastrointestinal nausea 07/11/2011 Ears/Nose/Throat/Neck otalgia 07/06/2011 Cardiovascular No arrhythmia 07/06/2011 Dermatologic No rash 06/2011 Dermatologic No scar 06/2011 Neurologic No dizziness 07/06/2011 Neurologic headache 06/2011 Neurologic No neck pain 07/06/2011 Neurologic No syncope Psychiatric No anxiety 0 07/06/2011 Psychiatric No depression 07/06/2011 Endocrine No goiter 06/2011 Endocrine No hyperglycemia 07/06/2011 Endocrine No hypoglycemia 07/06/2011 Gastrointestinal hematochezia 07/06/2011 Musculoskeletal joint complaint 07/06/2011 Cardiovascular No chest pain/pressure 07/06/2011 Cardiovascular No edema 07/06/2011 Cardiovascular No exercise intolerance 07/06/2011 Cardiovascular No orthopnea 07/06/2011 Cardiovascular No palpitations 07/06/2011 Respiratory No asthma Respiratory No pleuritic pain 07/06/2011 Respiratory No productive sputum 07/06/2011 Respiratory No cough 06/2011 Respiratory No dyspnea 0 07/06/2011 Respiratory No wheezing 07/06/2011 Gastrointestinal No hemorrhoids 07/06/2011 Gastrointestinal No hepatitis 07/06/2011 Gastrointestinal No abdominal pain 07/06/2011 Gastrointestinal No constipation 07/06/2011 Gastrointestinal No diarrhea 07/06/2011 Gastrointestinal No gastroesophageal reflu x 07/06/2011 Gastrointestinal No melena 07/06/2011 Gastrointestinal No nausea 07/06/2011 Gastrointestinal No vomiting 07/06/2011 Genitourinary/Nephrology No dysuria 07/06/2011 Genitourinary/Nephrology No nocturia 07/06/2011 Genitourinary/Nephrology No urinary incontinence 07/06/2011 Musculoskeletal No muscle weakness 07/06/2011 Musculoskeletal No myalgias 07/06/2011 Musculoskeletal No stiffness 07/06/2011 Musculoskeletal No swelling 07/06/2011 Musculoskeletal back pain 05/26/2011 Musculoskeletal low back pain 05/26/2011 Musculoskeletal muscle spasm 05/26/2011 Musculoskeletal joint complaint 05/26/2011 Musculoskeletal joint complaint 05/16/2011 Musculoskeletal low back pain 05/16/2011 Musculoskeletal back pain 05/05/2011 Musculoskeletal joint complaint 05/05/2011 Musculoskeletal No bone fracture 05/05/2011 Gastrointestinal abdominal pain 04/05/2011 Gastrointestinal diarrhea 04/05/2011 Cardiovascular arrhythmia 03/02/2011 Cardiovascular chest pain/pressure 03/02/2011 Cardiovascular palpitations 03/02/2011 Gastrointestinal abdominal pain 03/02/2011 Respiratory No dyspnea on exertion 03/02/2011 Respiratory No dyspnea 0 03/02/2011 Constitutional No fever 01/05/2011 Cardiovascular dyspnea 0 01/05/2011 Cardiovascular No claudication 01/05/2011 Cardiovascular palpitations 01/05/2011 Cardiovascular chest pain/pressure 01/05/2011 Gastrointestinal abdominal pain 01/05/2011 Gastrointestinal No hematochezia 01/05/2011 Gastrointestinal diarrhea 01/05/2011 Gastrointestinal No constipation 01/05/2011 Gastrointestinal No odynophagia 01/05/2011 Gastrointestinal No vomiting 01/05/2011 Gastrointestinal No nausea 01/05/2011 Cardiovascular hypertension 01/05/2011 Musculoskeletal muscle spasm 01/05/2011 Genitourinary/Nephrology urinary urgency 11/16/2010 Musculoskeletal No muscle weakness 11/16/2010 Musculoskeletal No myalgias 11/16/2010 Musculoskeletal No stiffness 11/16/2010 Musculoskeletal No swelling 11/16/2010 Cardiovascular No arrhythmia 11/16/2010 Cardiovascular No chest pain/pressure 11/16/2010 Cardiovascular No edema 11/16/2010 Cardiovascular No exercise intolerance 11/16/2010 Cardiovascular No orthopnea 11/16/2010 Cardiovascular No palpitations 11/16/2010 Musculoskeletal joint complaint 11/04/2010 Musculoskeletal low back pain 11/04/2010 Cardiovascular hypertension 11/04/2010 Cardiovascular palpitations 11/04/2010 Respiratory No asthma Respiratory No pleuritic pain 11/04/2010 Respiratory No productive sputum 11/04/2010 Respiratory No cough 07/2010 Respiratory No dyspnea 0 11/04/2010 Respiratory No wheezing 11/04/2010 Gastrointestinal No hemorrhoids 11/04/2010 Gastrointestinal No hepatitis 11/04/2010 Gastrointestinal No abdominal pain 11/04/2010 Gastrointestinal No constipation 11/04/2010 Gastrointestinal No diarrhea 11/04/2010 Gastrointestinal No gastroesophageal reflu x 11/04/2010 Gastrointestinal No melena 11/04/2010 Gastrointestinal No nausea 11/04/2010 Gastrointestinal No vomiting 11/04/2010 Genitourinary/Nephrology No dysuria 11/04/2010 Genitourinary/Nephrology No nocturia 11/04/2010 Genitourinary/Nephrology No urinary incontinence 11/04/2010 Musculoskeletal back pain 11/04/2010 Ears/Nose/Throat/Neck No hearing loss 11/04/2010 Ears/Nose/Throat/Neck No nasal discharge 11/04/2010 Ears/Nose/Throat/Neck No sinus congestion 11/04/2010 Ears/Nose/Throat/Neck No sore throat 11/04/2010 Dermatologic No rash 07/2010 Dermatologic No scar 07/2010 Constitutional No night sweats 08/05/2010 Constitutional No fatigue 08/05/2010 Constitutional No fever 08/05/2010 Constitutional No insomnia 08/05/2010 Constitutional No weight loss 08/05/2010 Ears/Nose/Throat/Neck sinus congestion 08/05/2010 Respiratory cough 2010 Ears/Nose/Throat/Neck sinus congestion 07/23/2010 Respiratory cough 2010 Respiratory chest tightness 07/23/2010 Constitutional fatigue 0 06/07/2010 Cardiovascular hypertension 06/07/2010 Ears/Nose/Throat/Neck hoarseness 06/07/2010 Respiratory No asthma Respiratory No pleuritic pain 06/07/2010 Respiratory No productive sputum 06/07/2010 Respiratory No cough 08/2010 Respiratory No dyspnea 0 06/07/2010 Respiratory No wheezing 06/07/2010 Gastrointestinal No hemorrhoids 06/07/2010 Gastrointestinal No hepatitis 06/07/2010 Gastrointestinal No abdominal pain 06/07/2010 Gastrointestinal No constipation 06/07/2010 Gastrointestinal No diarrhea 06/07/2010 Gastrointestinal No gastroesophageal reflu x 06/07/2010 Gastrointestinal No melena 06/07/2010 Gastrointestinal No nausea 06/07/2010 Gastrointestinal No vomiting 06/07/2010 Genitourinary/Nephrology No dysuria 06/07/2010 Genitourinary/Nephrology No nocturia 06/07/2010 Genitourinary/Nephrology No urinary incontinence 06/07/2010 Musculoskeletal No muscle weakness 06/07/2010 Musculoskeletal No myalgias 06/07/2010 Musculoskeletal No stiffness 06/07/2010 Musculoskeletal No swelling 06/07/2010 Neurologic No dizziness 06/07/2010 Ears/Nose/Throat/Neck hoarseness 05/12/2010 Ears/Nose/Throat/Neck No otalgia 05/12/2010 Ears/Nose/Throat/Neck No sinusitis 05/12/2010 Ears/Nose/Throat/Neck No sore throat 05/12/2010 Respiratory No cough 01/2010 Dermatologic No rash 01/2010 Dermatologic No sores Constitutional No fever 05/12/2010 Cardiovascular hypertension 05/12/2010 Cardiovascular No chest pain/pressure 05/12/2010 Cardiovascular No arrhythmia 05/12/2010 Cardiovascular No syncope 05/12/2010 Gastrointestinal abdominal pain 04/27/2010 Gastrointestinal No diarrhea 04/27/2010 Gastrointestinal No constipation 04/27/2010 Gastrointestinal nausea 04/27/2010 Gastrointestinal No vomiting 04/27/2010 Musculoskeletal arthralgia(s) 04/27/2010 Constitutional No fever 04/19/2010 Ears/Nose/Throat/Neck No sore throat 04/19/2010 Ears/Nose/Throat/Neck taste change 04/19/2010 Ears/Nose/Throat/Neck No tonsillitis 04/19/2010 Ears/Nose/Throat/Neck sinus congestion 04/19/2010 Ears/Nose/Throat/Neck sinusitis 04/19/2010 Respiratory cough 2009 Gastrointestinal No diarrhea 04/19/2010 Gastrointestinal No constipation 04/19/2010 Gastrointestinal No vomiting 04/19/2010 Dermatologic No rash Dermatologic No sores Neurologic headache 1010/2009 Genitourinary/Nephrology urinary urgency 03/09/2010 Neurologic headache 08/07/2009 Gastrointestinal vomiting 01/04/2010 Cardiovascular hypertension 01/04/2010 Neurologic headache 12/03 Gastrointestinal nausea 12/14/2009 Cardiovascular hypertension 12/14/2009 Constitutional No fever 11/23/2009 Constitutional recent illness 11/23/2009 Ears/Nose/Throat/Neck headache 11/23/2009 Ears/Nose/Throat/Neck No nasal discharge 11/23/2009 Ears/Nose/Throat/Neck No nasal allergies 11/23/2009 Ears/Nose/Throat/Neck otalgia 11/23/2009 Ears/Nose/Throat/Neck sore throat 11/23/2009 Respiratory cough 2009 Respiratory No dyspnea on exertion 11/23/2009 Respiratory No dyspnea 0 11/23/2009 Respiratory No stridor 0 11/23/2009 Respiratory No wheezing 11/23/2009 Gastrointestinal No anorexia 11/23/2009 Gastrointestinal No constipation 11/23/2009 Gastrointestinal No diarrhea 11/23/2009 Gastrointestinal No vomiting 11/23/2009 Dermatologic No rash Dermatologic No sores Physical Exam Exam Name System Name It em Name Status Result Effective Dates Notes Full Exam - General Constitutional general appearance Overall: well nourished 01/16/2019 None Full Exam - General Constitutional general appearance Overall: well developed 01/16/2019 None Full Exam - General Constitutional general appearance Overall: in no acute distress 01/16/2019 None Full Exam - General Neurologic mental status Overall: alert 9 None Full Exam - General Neurologic mental status Overall: oriented 01/16/2019 None Full Exam - General Psychiatric mood and affect Overall: normal mood and affect 01/16/2019 None Full Exam - General Musculoskeletal spine, ribs and pelvis Spine: tender @ thoracic spine 01/16/2019 paraspinal thoracolumbar Full Exam - General Constitutional general appearance Overall: well nourished 01/09/2019 None Full Exam - General Constitutional general appearance Overall: well developed 01/09/2019 None Full Exam - General Constitutional general appearance Overall: in no acute distress 01/09/2019 None Full Exam - General Neurologic mental status Overall: alert 9 None Full Exam - General Neurologic mental status Overall: oriented 01/09/2019 None Full Exam - General Psychiatric mood and affect Overall: normal mood and affect 01/09/2019 None Full Exam - General Abdomen abdominal exam Overall: no masses 01/09/2019 None Full Exam - General Abdomen abdominal exam Overall: normal bowel sounds 01/09/2019 None Full Exam - General Abdomen abdominal exam Overall: soft 01/09/2019 None Full Exam - General Constitutional general appearance Overall: well nourished 11/21/2018 None Full Exam - General Constitutional general appearance Overall: well developed 11/21/2018 None Full Exam - General Constitutional general appearance Overall: in no acute distress 11/21/2018 None Full Exam - General Neurologic mental status Overall: alert 9 None Full Exam - General Neurologic mental status Overall: oriented 11/21/2018 None Full Exam - General Psychiatric mood and affect Overall: normal mood and affect 11/21/2018 None Full Exam - General Abdomen abdominal exam Overall: no masses 11/21/2018 None Full Exam - General Abdomen abdominal exam Overall: no tenderness 11/21/2018 None Full Exam - General Abdomen abdominal exam Overall: normal bowel sounds 11/21/2018 None Full Exam - General Abdomen abdominal exam Overall: soft 11/21/2018 None Full Exam - General Cardiovascular auscultation of heart Overall: regular rate 11/21/2018 None Full Exam - General Cardiovascular auscultation of heart Overall: normal heart sounds 11/21/2018 None Full Exam - General Cardiovascular auscultation of heart S4 (atrial gallop): present 11/21/2018 None Full Exam - General Respiratory auscultation Overall: breath sounds clear bilater ally 11/21/2018 None Full Exam - General Neck inspection of neck Overall: normal size 11/21/2018 None Full Exam - General Neck inspection of neck Overall: no masses 11/21/2018 None Full Exam - General Ears/Nose/Throat otoscopic exam Overall: tympanic membranes clear 11/21/2018 None Full Exam - General Ears/Nose/Throat otoscopic exam Overall: external auditory canals clear 11/21/2018 None Full Exam - General Ears/Nose/Throat internal nose Overall: bilateral nasal cavities clear 11/21/2018 None Full Exam - General Ears/Nose/Throat oral cavity/pharynx/larynx Overall: oral mucosa clear 11/21/2018 None Full Exam - General Musculoskeletal gait and station Station: kyphosis 11/21/2018 None Full Exam - General Cardiovascular extremities Overall: no clubbing 11/21/2018 None Full Exam - General Cardiovascular extremities Overall: No cyanosis 11/21/2018 None Full Exam - General Cardiovascular extremities Edema present: non-pitting 11/21/2018 None Full Exam - General Constitutional general appearance Overall: well nourished 10/04/2018 None Full Exam - General Constitutional general appearance Overall: well developed 10/04/2018 None Full Exam - General Constitutional general appearance Overall: in no acute distress 10/04/2018 None Full Exam - General Neurologic mental status Overall: alert 9 None Full Exam - General Neurologic mental status Overall: oriented 10/04/2018 None Full Exam - General Psychiatric mood and affect Overall: normal mood and affect 10/04/2018 None Full Exam - General Respiratory auscultation Overall: breath sounds clear bilater ally 10/04/2018 None Full Exam - General Cardiovascular auscultation of heart Overall: regular rate 10/04/2018 None Full Exam - General Cardiovascular auscultation of heart Overall: normal heart sounds 10/04/2018 None Full Exam - General Cardiovascular auscultation of heart S4 (atrial gallop): present 10/04/2018 None Full Exam - General Abdomen abdominal exam Overall: no masses 10/04/2018 None Full Exam - General Abdomen abdominal exam Overall: soft 10/04/2018 None Full Exam - General Abdomen abdominal exam Overall: normal bowel sounds 10/04/2018 None Full Exam - General Abdomen abdominal exam Left lower quadrant: tender to palpa tion 10/04/2018 None Full Exam - General Constitutional general appearance Overall: well nourished 08/06/2018 None Full Exam - General Constitutional general appearance Overall: well developed 08/06/2018 None Full Exam - General Constitutional general appearance Overall: in no acute distress 08/06/2018 None Full Exam - General Neurologic mental status Overall: alert 9 None Full Exam - General Neurologic mental status Overall: oriented 08/06/2018 None Full Exam - General Psychiatric mood and affect Overall: normal mood and affect 08/06/2018 None Full Exam - General Abdomen abdominal exam Overall: no masses 08/06/2018 None Full Exam - General Abdomen abdominal exam Overall: no tenderness 08/06/2018 None Full Exam - General Abdomen abdominal exam Overall: normal bowel sounds 08/06/2018 None Full Exam - General Abdomen abdominal exam Overall: soft 08/06/2018 None Full Exam - General Cardiovascular auscultation of heart Overall: regular rate 08/06/2018 None Full Exam - General Cardiovascular auscultation of heart Overall: normal heart sounds 08/06/2018 None Full Exam - General Cardiovascular auscultation of heart Overall: no murmurs 08/06/2018 None Full Exam - General Cardiovascular extremities Overall: no clubbing 08/06/2018 None Full Exam - General Cardiovascular extremities Overall: No edema 08/06/2018 None Full Exam - General Cardiovascular extremities Overall: No cyanosis 08/06/2018 None Full Exam - General Respiratory auscultation Overall: breath sounds clear bilater ally 08/06/2018 None Full Exam - General Neck inspection of neck Overall: normal size 08/06/2018 None Full Exam - General Neck inspection of neck Overall: no masses 08/06/2018 None Full Exam - General Ears/Nose/Throat otoscopic exam Overall: external auditory canals clear 08/06/2018 None Full Exam - General Ears/Nose/Throat otoscopic exam Overall: tympanic membranes clear 08/06/2018 None Full Exam - General Ears/Nose/Throat internal nose Overall: bilateral nasal cavities clear 08/06/2018 None Full Exam - General Ears/Nose/Throat oral cavity/pharynx/larynx Overall: oral mucosa clear 08/06/2018 None Full Exam - General Musculoskeletal gait and station Station: kyphosis 08/06/2018 None Full Exam - General Musculoskeletal spine, ribs and pelvis Spine: tender @ cervical spine 08/06/2018 lateral Full Exam - General Constitutional general appearance Overall: well nourished 06/21/2018 None Full Exam - General Constitutional general appearance Overall: well developed 06/21/2018 None Full Exam - General Constitutional general appearance Overall: in no acute distress 06/21/2018 None Full Exam - General Neurologic mental status Overall: alert 9 None Full Exam - General Neurologic mental status Overall: oriented 06/21/2018 None Full Exam - General Psychiatric mood and affect Overall: normal mood and affect 06/21/2018 None Full Exam - General Respiratory auscultation Overall: breath sounds clear bilater ally 06/21/2018 None Full Exam - General Cardiovascular auscultation of heart Overall: regular rate 06/21/2018 None Full Exam - General Cardiovascular auscultation of heart Overall: normal heart sounds 06/21/2018 None Full Exam - General Neck inspection of neck Overall: normal size 06/21/2018 None Full Exam - General Neck inspection of neck Overall: no masses 06/21/2018 None Full Exam - General Musculoskeletal spine, ribs and pelvis Spine: tender @ lumbar spin e 06/21/2018 None Full Exam - General Constitutional general appearance Overall: well nourished 05/31/2018 None Full Exam - General Constitutional general appearance Overall: in no acute distress 05/31/2018 None Full Exam - General Respiratory respiratory effort/rhythm Overall: no retractions 05/31/2018 None Full Exam - General Respiratory respiratory effort/rhythm Overall: normal rate 05/31/2018 None Full Exam - General Respiratory auscultation Overall: breath sounds clear bilater ally 05/31/2018 None Full Exam - General Cardiovascular auscultation of heart Overall: regular rate 05/31/2018 None Full Exam - General Cardiovascular auscultation of heart Overall: no murmurs 05/31/2018 None Full Exam - General Lymphatic neck nodes Overall: anterior cervical chain chanelle ign 05/31/2018 None Full Exam - General Lymphatic neck nodes Overall: posterior cervical chain be nign 05/31/2018 None Full Exam - General Neurologic mental status Overall: alert 8 None Full Exam - General Constitutional general appearance Overall: well nourished 02/06/2018 None Full Exam - General Constitutional general appearance Overall: well developed 02/06/2018 None Full Exam - General Constitutional general appearance Overall: in no acute distress 02/06/2018 None Full Exam - General Neurologic mental status Overall: alert 8 None Full Exam - General Neurologic mental status Overall: oriented 02/06/2018 None Full Exam - General Psychiatric mood and affect Overall: normal mood and affect 02/06/2018 None Full Exam - General Respiratory auscultation Overall: breath sounds clear bilater ally 02/06/2018 None Full Exam - General Cardiovascular auscultation of heart Overall: regular rate 02/06/2018 None Full Exam - General Cardiovascular auscultation of heart Overall: normal heart sounds 02/06/2018 None Full Exam - General Cardiovascular auscultation of heart S4 (atrial gallop): present 02/06/2018 None Full Exam - General Cardiovascular auscultation of heart Murmur: previously known murmur unchanged 02/06/2018 None Full Exam - General Cardiovascular extremities Overall: no clubbing 02/06/2018 None Full Exam - General Cardiovascular extremities Overall: No cyanosis 02/06/2018 None Full Exam - General Cardiovascular extremities Overall: No edema 02/06/2018 None Full Exam - General Abdomen abdominal exam Overall: no masses 02/06/2018 None Full Exam - General Abdomen abdominal exam Overall: no tenderness 02/06/2018 None Full Exam - General Abdomen abdominal exam Overall: normal bowel sounds 02/06/2018 None Full Exam - General Abdomen abdominal exam Overall: soft 02/06/2018 None Full Exam - General Constitutional general appearance Overall: well nourished 12/18/2017 None Full Exam - General Constitutional general appearance Overall: well developed 12/18/2017 None Full Exam - General Constitutional general appearance Overall: in no acute distress 12/18/2017 None Full Exam - General Neurologic mental status Overall: alert 8 None Full Exam - General Neurologic mental status Overall: oriented 12/18/2017 None Full Exam - General Psychiatric mood and affect Overall: normal mood and affect 12/18/2017 None Full Exam - General Respiratory auscultation Overall: breath sounds clear bilater ally 12/18/2017 None Full Exam - General Cardiovascular auscultation of heart Overall: regular rate 12/18/2017 None Full Exam - General Cardiovascular auscultation of heart Overall: normal heart sounds 12/18/2017 None Full Exam - General Cardiovascular auscultation of heart S4 (atrial gallop): present 12/18/2017 None Full Exam - General Cardiovascular extremities Overall: no clubbing 12/18/2017 None Full Exam - General Cardiovascular extremities Overall: No edema 12/18/2017 None Full Exam - General Cardiovascular extremities Overall: No cyanosis 12/18/2017 None Full Exam - General Neck inspection of neck Overall: normal size 12/18/2017 None Full Exam - General Neck inspection of neck Overall: no masses 12/18/2017 None Full Exam - General Neck inspection of neck Carotid arteries: a normal exam 12/18/2017 None Full Exam - General Constitutional general appearance Overall: well nourished 09/11/2017 None Full Exam - General Constitutional general appearance Overall: well developed 09/11/2017 None Full Exam - General Constitutional general appearance Overall: in no acute distress 09/11/2017 None Full Exam - General Neurologic mental status Overall: alert 8 None Full Exam - General Neurologic mental status Overall: oriented 09/11/2017 None Full Exam - General Psychiatric mood and affect Overall: normal mood and affect 09/11/2017 None Full Exam - General Respiratory auscultation Overall: breath sounds clear bilater ally 09/11/2017 None Full Exam - General Cardiovascular auscultation of heart Overall: regular rate 09/11/2017 None Full Exam - General Cardiovascular auscultation of heart Overall: normal heart sounds 09/11/2017 None Full Exam - General Cardiovascular auscultation of heart S4 (atrial gallop): present 09/11/2017 None Full Exam - General Cardiovascular extremities Overall: no clubbing 09/11/2017 None Full Exam - General Cardiovascular extremities Overall: No edema 09/11/2017 None Full Exam - General Cardiovascular extremities Overall: No cyanosis 09/11/2017 None Full Exam - General Abdomen abdominal exam Overall: no masses 09/11/2017 None Full Exam - General Abdomen abdominal exam Overall: no tenderness 09/11/2017 None Full Exam - General Abdomen abdominal exam Overall: normal bowel sounds 09/11/2017 None Full Exam - General Abdomen abdominal exam Overall: soft 09/11/2017 None Full Exam - General Neck inspection of neck Overall: normal size 09/11/2017 None Full Exam - General Neck inspection of neck Overall: no masses 09/11/2017 None Full Exam - General Musculoskeletal right lower extremity Palpation - right knee: crepitus 09/11/2017 None Full Exam - General Musculoskeletal digits and nails Left First CMC: tender 09/11/2017 with crepitus Full Exam - General Musculoskeletal digits and nails Right First CMC: tender 09/11/2017 with crepitus Full Exam - General Constitutional general appearance Overall: well nourished 03/28/2017 None Full Exam - General Constitutional general appearance Overall: well developed 03/28/2017 None Full Exam - General Constitutional general appearance Overall: in no acute distress 03/28/2017 None Full Exam - General Neurologic mental status Overall: alert 7 None Full Exam - General Neurologic mental status Overall: oriented 03/28/2017 None Full Exam - General Psychiatric mood and affect Overall: normal mood and affect 03/28/2017 None Full Exam - General Abdomen abdominal exam Overall: no masses 03/28/2017 None Full Exam - General Abdomen abdominal exam Overall: no tenderness 03/28/2017 None Full Exam - General Abdomen abdominal exam Overall: normal bowel sounds 03/28/2017 None Full Exam - General Abdomen abdominal exam Overall: soft 03/28/2017 None Full Exam - General Respiratory auscultation Overall: breath sounds clear bilater ally 03/28/2017 None Full Exam - General Cardiovascular auscultation of heart Overall: regular rate 03/28/2017 None Full Exam - General Cardiovascular auscultation of heart Overall: normal heart sounds 03/28/2017 None Full Exam - General Cardiovascular extremities Overall: no clubbing 03/28/2017 None Full Exam - General Cardiovascular extremities Overall: No edema 03/28/2017 None Full Exam - General Cardiovascular extremities Overall: No cyanosis 03/28/2017 None Full Exam - General Neck inspection of neck Overall: normal size 03/28/2017 None Full Exam - General Neck inspection of neck Overall: no masses 03/28/2017 None Full Exam - General Integument inspection of skin Location: right leg 03/28/2017 infrapatellar area with brownish scaling rash Full Exam - General Constitutional general appearance Overall: well nourished 09/12/2016 None Full Exam - General Constitutional general appearance Overall: well developed 09/12/2016 None Full Exam - General Constitutional general appearance Overall: in no acute distress 09/12/2016 None Full Exam - General Ears/Nose/Throat otoscopic exam Overall: external auditory canals clear 09/12/2016 None Full Exam - General Ears/Nose/Throat otoscopic exam Left tympanic membrane: air- fluid level 09/12/2016 None Full Exam - General Ears/Nose/Throat otoscopic exam Right tympanic membrane: air- fluid level 09/12/2016 None Full Exam - General Ears/Nose/Throat internal nose Turbinates: erythema 09/12/2016 None Full Exam - General Ears/Nose/Throat internal nose Turbinates: hypertrophy 09/12/2016 None Full Exam - General Ears/Nose/Throat internal nose Drainage: cloudy 09/12/2016 None Full Exam - General Ears/Nose/Throat oral cavity/pharynx/larynx Oropharynx: postnasal drainage 09/12/2016 None Full Exam - General Neck inspection of neck Overall: normal size 09/12/2016 None Full Exam - General Neck inspection of neck Overall: no masses 09/12/2016 None Full Exam - General Respiratory auscultation Overall: breath sounds clear bilater ally 09/12/2016 None Full Exam - General Cardiovascular auscultation of heart Overall: regular rate 09/12/2016 None Full Exam - General Cardiovascular auscultation of heart Overall: normal heart sounds 09/12/2016 None Full Exam - General Cardiovascular auscultation of heart Overall: no murmurs 09/12/2016 None Full Exam - General Lymphatic neck nodes Left anterior cervical chain: shotty 09/12/2016 None Full Exam - General Lymphatic neck nodes Left anterior cervical chain: tender 09/12/2016 None Full Exam - General Lymphatic neck nodes Right anterior cervical chain: shott y 09/12/2016 None Full Exam - General Lymphatic neck nodes Right anterior cervical chain: tende r 09/12/2016 None Full Exam - General Neurologic mental status Overall: alert 7 None Full Exam - General Neurologic mental status Overall: oriented 09/12/2016 None Full Exam - General Psychiatric mood and affect Overall: normal mood and affect 09/12/2016 None Full Exam - General Constitutional general appearance Overall: well nourished 07/28/2016 None Full Exam - General Constitutional general appearance Overall: well developed 07/28/2016 None Full Exam - General Constitutional general appearance Overall: in no acute distress 07/28/2016 None Full Exam - General Neurologic mental status Overall: alert 7 None Full Exam - General Neurologic mental status Overall: oriented 07/28/2016 None Full Exam - General Psychiatric mood and affect Overall: normal mood and affect 07/28/2016 None Full Exam - General Integument inspection of skin Dermatitis: erythema 07/28/2016 mild to lateral left and right wrist Full Exam - General Constitutional general appearance Overall: well nourished 04/26/2016 None Full Exam - General Constitutional general appearance Overall: well developed 04/26/2016 None Full Exam - General Constitutional general appearance Overall: in no acute distress 04/26/2016 None Full Exam - General Neurologic mental status Overall: alert 6 None Full Exam - General Neurologic mental status Overall: oriented 04/26/2016 None Full Exam - General Psychiatric mood and affect Overall: normal mood and affect 04/26/2016 None Full Exam - General Abdomen abdominal exam Overall: no masses 04/26/2016 None Full Exam - General Abdomen abdominal exam Overall: normal bowel sounds 04/26/2016 None Full Exam - General Abdomen abdominal exam Overall: soft 04/26/2016 None Full Exam - General Abdomen abdominal exam Left lower quadrant: tender to palpa tion 04/26/2016 None Full Exam - General Abdomen hernia exam Abdominal hernia present: reducible 04/26/2016 None Full Exam - General Abdomen hernia exam Abdominal hernia present: tender 04/26/2016 left lower quadrant area Full Exam - General Musculoskeletal spine, ribs and pelvis Spine: tender @ lumbar spin e 04/26/2016 None Full Exam - General Integument inspection of skin Location: face 04/26/2016 right cheek with solar lentigo Full Exam - General Constitutional general appearance Overall: well nourished 12/09/2015 None Full Exam - General Constitutional general appearance Overall: well developed 12/09/2015 None Full Exam - General Constitutional general appearance Overall: in no acute distress 12/09/2015 None Full Exam - General Neurologic mental status Overall: alert 6 None Full Exam - General Neurologic mental status Overall: oriented 12/09/2015 None Full Exam - General Psychiatric mood and affect Overall: normal mood and affect 12/09/2015 None Full Exam - General Abdomen abdominal exam Overall: no masses 12/09/2015 None Full Exam - General Abdomen abdominal exam Overall: normal bowel sounds 12/09/2015 None Full Exam - General Abdomen abdominal exam Overall: soft 12/09/2015 None Full Exam - General Abdomen abdominal exam Left lower quadrant: tender to palpa tion 12/09/2015 None Full Exam - General Integument inspection of skin Location: inguinal area 12/09/2015 erythema Full Exam - General Constitutional general appearance Overall: well nourished 09/10/2015 None Full Exam - General Constitutional general appearance Overall: well developed 09/10/2015 None Full Exam - General Constitutional general appearance Overall: in no acute distress 09/10/2015 None Full Exam - General Neurologic mental status Overall: alert 6 None Full Exam - General Neurologic mental status Overall: oriented 09/10/2015 None Full Exam - General Psychiatric mood and affect Overall: normal mood and affect 09/10/2015 None Full Exam - General Respiratory auscultation Overall: breath sounds clear bilater ally 09/10/2015 None Full Exam - General Cardiovascular auscultation of heart Overall: regular rate 09/10/2015 None Full Exam - General Cardiovascular auscultation of heart Overall: normal heart sounds 09/10/2015 None Full Exam - General Cardiovascular auscultation of heart S3 (ventricular gallop): present 09/10/2015 None Full Exam - General Cardiovascular auscultation of heart Murmur: previously known murmur unchanged 09/10/2015 None Full Exam - General Abdomen abdominal exam Overall: no masses 09/10/2015 None Full Exam - General Abdomen abdominal exam Overall: no tenderness 09/10/2015 None Full Exam - General Abdomen abdominal exam Overall: normal bowel sounds 09/10/2015 None Full Exam - General Abdomen abdominal exam Overall: soft 09/10/2015 None Full Exam - General Musculoskeletal gait and station Station: pelvic tilt 09/10/2015 None Full Exam - General Musculoskeletal spine, ribs and pelvis Spine: tender @ thoracic spine 09/10/2015 None Full Exam - General Musculoskeletal spine, ribs and pelvis Spine: tender @ lumbar spin e 09/10/2015 None Full Exam - General Musculoskeletal spine, ribs and pelvis Sacroiliac joints: tender right sacroiliac joint 09/10/2015 None Full Exam - General Musculoskeletal spine, ribs and pelvis Posture: pelvic tilt 09/10/2015 None Full Exam - General Musculoskeletal spine, ribs and pelvis Ribs: asymmetric 09/10/2015 left sided Full Exam - General Constitutional general appearance Overall: well nourished 03/24/2015 None Full Exam - General Constitutional general appearance Overall: well developed 03/24/2015 None Full Exam - General Constitutional general appearance Overall: in no acute distress 03/24/2015 None Full Exam - General Neurologic mental status Overall: alert 5 None Full Exam - General Neurologic mental status Overall: oriented 03/24/2015 None Full Exam - General Psychiatric mood and affect Overall: normal mood and affect 03/24/2015 None Full Exam - General Abdomen abdominal exam Overall: no masses 03/24/2015 None Full Exam - General Abdomen abdominal exam Left upper quadrant: tender to palpa tion 03/24/2015 None Full Exam - General Constitutional general appearance Overall: in no acute distress 03/05/2015 None Full Exam - General Constitutional general appearance Overall: well developed 03/05/2015 None Full Exam - General Constitutional general appearance Overall: well nourished 03/05/2015 None Full Exam - General Neurologic mental status Overall: alert 5 None Full Exam - General Neurologic mental status Overall: oriented 03/05/2015 None Full Exam - General Psychiatric mood and affect Overall: normal mood and affect 03/05/2015 None Full Exam - General Abdomen abdominal exam Overall: no masses 03/05/2015 None Full Exam - General Abdomen abdominal exam Overall: normal bowel sounds 03/05/2015 None Full Exam - General Abdomen abdominal exam Overall: soft 03/05/2015 None Full Exam - General Abdomen abdominal exam Left upper quadrant: tender to palpa tion 03/05/2015 None Full Exam - General Constitutional general appearance Overall: well nourished 02/19/2015 None Full Exam - General Constitutional general appearance Overall: well developed 02/19/2015 None Full Exam - General Constitutional general appearance Overall: in no acute distress 02/19/2015 None Full Exam - General Neurologic mental status Overall: alert 5 None Full Exam - General Neurologic mental status Overall: oriented 02/19/2015 None Full Exam - General Psychiatric mood and affect Overall: normal mood and affect 02/19/2015 None Full Exam - General Abdomen abdominal exam Overall: no masses 02/19/2015 None Full Exam - General Abdomen abdominal exam Overall: normal bowel sounds 02/19/2015 None Full Exam - General Abdomen abdominal exam Overall: soft 02/19/2015 None Full Exam - General Abdomen abdominal exam Left upper quadrant: tender to palpa tion 02/19/2015 None Full Exam - General Respiratory auscultation Overall: breath sounds clear bilater ally 02/19/2015 None Full Exam - General Cardiovascular auscultation of heart Overall: regular rate 02/19/2015 None Full Exam - General Cardiovascular auscultation of heart Overall: normal heart sounds 02/19/2015 None Full Exam - General Cardiovascular auscultation of heart S3 (ventricular gallop): present 02/19/2015 None Full Exam - General Cardiovascular extremities Overall: no clubbing 02/19/2015 None Full Exam - General Cardiovascular extremities Overall: No edema 02/19/2015 None Full Exam - General Cardiovascular extremities Overall: No cyanosis 02/19/2015 None Full Exam - General Neck inspection of neck Overall: normal size 02/19/2015 None Full Exam - General Neck inspection of neck Overall: no masses 02/19/2015 None Full Exam - General Musculoskeletal gait and station Station: kyphosis 02/19/2015 None Full Exam - General Musculoskeletal spine, ribs and pelvis Spine: tender @ cervical spine 02/19/2015 None Full Exam - General Musculoskeletal spine, ribs and pelvis Spine: tender @ thoracic spine 02/19/2015 None Full Exam - General Musculoskeletal spine, ribs and pelvis Spine: tender @ lumbar spin e 02/19/2015 None Full Exam - General Ears/Nose/Throat otoscopic exam Overall: external auditory canals clear 02/19/2015 None Full Exam - General Ears/Nose/Throat otoscopic exam Overall: tympanic membranes clear 02/19/2015 None Full Exam - General Ears/Nose/Throat internal nose Overall: bilateral nasal cavities clear 02/19/2015 None Full Exam - General Ears/Nose/Throat oral cavity/pharynx/larynx Overall: oral mucosa clear 02/19/2015 None Full Exam - General Constitutional general appearance Overall: well nourished 12/25/2014 None Full Exam - General Constitutional general appearance Overall: well developed 12/25/2014 None Full Exam - General Constitutional general appearance Overall: in no acute distress 12/25/2014 None Full Exam - General Neurologic mental status Overall: alert 5 None Full Exam - General Neurologic mental status Overall: oriented 12/25/2014 None Full Exam - General Psychiatric mood and affect Overall: normal mood and affect 12/25/2014 None Full Exam - General Respiratory auscultation Overall: breath sounds clear bilater ally 12/25/2014 None Full Exam - General Cardiovascular auscultation of heart Overall: regular rate 12/25/2014 None Full Exam - General Cardiovascular auscultation of heart Overall: normal heart sounds 12/25/2014 None Full Exam - General Cardiovascular auscultation of heart S3 (ventricular gallop): present 12/25/2014 None Full Exam - General Cardiovascular auscultation of heart Murmur: previously known murmur unchanged 12/25/2014 None Full Exam - General Cardiovascular extremities Overall: no clubbing 12/25/2014 None Full Exam - General Cardiovascular extremities Overall: No cyanosis 12/25/2014 None Full Exam - General Cardiovascular extremities Edema present: non-pitting 12/25/2014 None Full Exam - General Abdomen abdominal exam Overall: no masses 12/25/2014 None Full Exam - General Abdomen abdominal exam Overall: normal bowel sounds 12/25/2014 None Full Exam - General Abdomen abdominal exam Overall: soft 12/25/2014 None Full Exam - General Abdomen abdominal exam Epigastric: tender to palpation 12/25/2014 None Full Exam - General Abdomen abdominal exam Suprapubic: tender to palpation 12/25/2014 None Full Exam - General Constitutional general appearance Overall: well nourished 11/26/2014 None Full Exam - General Constitutional general appearance Overall: well developed 11/26/2014 None Full Exam - General Constitutional general appearance Overall: in no acute distress 11/26/2014 None Full Exam - General Neurologic mental status Overall: alert 5 None Full Exam - General Neurologic mental status Overall: oriented 11/26/2014 None Full Exam - General Psychiatric mood and affect Overall: normal mood and affect 11/26/2014 None Full Exam - General Respiratory auscultation Overall: breath sounds clear bilater ally 11/26/2014 None Full Exam - General Cardiovascular auscultation of heart Overall: normal heart sounds 11/26/2014 None Full Exam - General Cardiovascular auscultation of heart Overall: regular rate 11/26/2014 None Full Exam - General Cardiovascular auscultation of heart S3 (ventricular gallop): present 11/26/2014 None Full Exam - General Cardiovascular extremities Overall: no clubbing 11/26/2014 None Full Exam - General Cardiovascular extremities Overall: No edema 11/26/2014 None Full Exam - General Cardiovascular extremities Overall: No cyanosis 11/26/2014 None Full Exam - General Abdomen abdominal exam Overall: no masses 11/26/2014 None Full Exam - General Abdomen abdominal exam Overall: normal bowel sounds 11/26/2014 None Full Exam - General Abdomen abdominal exam Overall: soft 11/26/2014 None Full Exam - General Abdomen abdominal exam Epigastric: tender to palpation 11/26/2014 None Full Exam - General Abdomen abdominal exam Left upper quadrant: tender to palpa tion 11/26/2014 None Full Exam - General Integument inspection of skin Location: right leg 11/26/2014 medial softball sized bruise in mid-calf Full Exam - General Constitutional general appearance Overall: well nourished 11/04/2014 None Full Exam - General Constitutional general appearance Overall: well developed 11/04/2014 None Full Exam - General Constitutional general appearance Overall: in no acute distress 11/04/2014 None Full Exam - General Respiratory respiratory effort/rhythm Overall: normal rate 11/04/2014 None Full Exam - General Respiratory respiratory effort/rhythm Overall: no retractions 11/04/2014 None Full Exam - General Respiratory auscultation Overall: breath sounds clear bilater ally 11/04/2014 None Full Exam - General Cardiovascular auscultation of heart Overall: regular rate 11/04/2014 None Full Exam - General Cardiovascular auscultation of heart Overall: normal heart sounds 11/04/2014 None Full Exam - General Cardiovascular auscultation of heart Overall: no murmurs 11/04/2014 None Full Exam - General Cardiovascular extremities Overall: No edema 11/04/2014 None Full Exam - General Cardiovascular extremities Overall: No cyanosis 11/04/2014 None Full Exam - General Cardiovascular inspection of pedal pulses Overall: strong, equal bilaterally 11/04/2014 None Full Exam - General Abdomen abdominal exam Overall: no masses 11/04/2014 None Full Exam - General Abdomen abdominal exam Overall: soft 11/04/2014 None Full Exam - General Abdomen abdominal exam Bowel sounds: hypoactive 11/04/2014 None Full Exam - General Abdomen abdominal exam Right lower quadrant: tender to palp ation 11/04/2014 None Full Exam - General Abdomen abdominal exam Epigastric: tender to palpation 11/04/2014 None Full Exam - General Abdomen abdominal exam Left upper quadrant: non-tender to p alpation 11/04/2014 None Full Exam - General Abdomen abdominal exam Right upper quadrant: non-tender to palpation 11/04/2014 None Full Exam - General Abdomen abdominal exam Left lower quadrant: tender to palpa tion 11/04/2014 None Full Exam - General Neurologic mental status Overall: oriented 11/04/2014 None Full Exam - General Neurologic mental status Overall: alert 5 None Full Exam - General Psychiatric mood and affect Overall: normal mood and affect 11/04/2014 None Full Exam - General Constitutional general appearance Overall: well nourished 09/01/2014 None Full Exam - General Constitutional general appearance Overall: well developed 09/01/2014 None Full Exam - General Constitutional general appearance Overall: in no acute distress 09/01/2014 None Full Exam - General Ears/Nose/Throat otoscopic exam Right tympanic membrane: loss of landmarks 09/01/2014 None Full Exam - General Ears/Nose/Throat otoscopic exam Left tympanic membrane: a normal exam 09/01/2014 None Full Exam - General Ears/Nose/Throat oral cavity/pharynx/larynx Posterior Pharynx: clear post nasal drainage 09/01/2014 None Full Exam - General Respiratory auscultation Overall: breath sounds clear bilater ally 09/01/2014 None Full Exam - General Cardiovascular auscultation of heart Overall: regular rate 09/01/2014 None Full Exam - General Cardiovascular auscultation of heart Overall: normal heart sounds 09/01/2014 None Full Exam - General Cardiovascular auscultation of heart Overall: no murmurs 09/01/2014 None Full Exam - General Musculoskeletal left lower extremity Inspection - left thigh: normal appearance 09/01/2014 None Full Exam - General Musculoskeletal left lower extremity Palpation - left thigh: tenderness 09/01/2014 lateral-posterior aspect Full Exam - General Musculoskeletal left lower extremity ROM - left knee: a normal exam 09/01/2014 None Full Exam - General Neurologic mental status Overall: alert 5 None Full Exam - General Neurologic mental status Overall: oriented 09/01/2014 None Full Exam - General Neurologic gait Overall: no ataxia, no unsteadiness 09/01/2014 None Full Exam - General Psychiatric mood and affect Overall: normal mood and affect 09/01/2014 None Full Exam - General Constitutional general appearance Overall: well developed 06/02/2014 None Full Exam - General Constitutional general appearance Overall: well nourished 06/02/2014 None Full Exam - General Constitutional general appearance Overall: in no acute distress 06/02/2014 None Full Exam - General Neurologic mental status Overall: alert 4 None Full Exam - General Neurologic mental status Overall: oriented 06/02/2014 None Full Exam - General Psychiatric mood and affect Overall: normal mood and affect 06/02/2014 None Full Exam - General Genitourinary labia and vagina Vagina: erythematous 06/02/2014 with very short vaginal c anal Full Exam - General Genitourinary labia and vagina Vaginal discharge: absent 06/02/2014 None Full Exam - General Ears/Nose/Throat otoscopic exam Overall: external auditory canals clear 06/02/2014 None Full Exam - General Ears/Nose/Throat otoscopic exam Left tympanic membrane: air- fluid level 06/02/2014 None Full Exam - General Ears/Nose/Throat otoscopic exam Right tympanic membrane: air- fluid level 06/02/2014 None Full Exam - General Ears/Nose/Throat internal nose Turbinates: hypertrophy 06/02/2014 None Full Exam - General Ears/Nose/Throat internal nose Turbinates: pale 06/02/2014 None Full Exam - General Ears/Nose/Throat oral cavity/pharynx/larynx Overall: oral mucosa clear 06/02/2014 None Full Exam - General Constitutional general appearance Overall: well nourished 04/08/2014 None Full Exam - General Constitutional general appearance Overall: well developed 04/08/2014 None Full Exam - General Constitutional general appearance Overall: in no acute distress 04/08/2014 None Full Exam - General Neurologic mental status Overall: alert 4 None Full Exam - General Neurologic mental status Overall: oriented 04/08/2014 None Full Exam - General Psychiatric mood and affect Overall: normal mood and affect 04/08/2014 None Full Exam - General Respiratory auscultation Overall: breath sounds clear bilater ally 04/08/2014 None Full Exam - General Cardiovascular auscultation of heart Overall: regular rate 04/08/2014 None Full Exam - General Cardiovascular auscultation of heart Overall: normal heart sounds 04/08/2014 None Full Exam - General Cardiovascular auscultation of heart S3 (ventricular gallop): present 04/08/2014 None Full Exam - General Cardiovascular auscultation of heart Murmur: previously known murmur unchanged 04/08/2014 None Full Exam - General Cardiovascular extremities Overall: no clubbing 04/08/2014 None Full Exam - General Cardiovascular extremities Overall: No edema 04/08/2014 None Full Exam - General Cardiovascular extremities Overall: No cyanosis 04/08/2014 None Full Exam - General Abdomen abdominal exam Overall: no masses 04/08/2014 None Full Exam - General Abdomen abdominal exam Overall: no tenderness 04/08/2014 None Full Exam - General Abdomen abdominal exam Overall: normal bowel sounds 04/08/2014 None Full Exam - General Abdomen abdominal exam Overall: soft 04/08/2014 None Full Exam - General Ears/Nose/Throat otoscopic exam Overall: external auditory canals clear 04/08/2014 None Full Exam - General Ears/Nose/Throat otoscopic exam Left tympanic membrane: air- fluid level 04/08/2014 None Full Exam - General Ears/Nose/Throat otoscopic exam Right tympanic membrane: air- fluid level 04/08/2014 None Full Exam - General Ears/Nose/Throat internal nose Turbinates: hypertrophy 04/08/2014 None Full Exam - General Ears/Nose/Throat internal nose Turbinates: pale 04/08/2014 None Full Exam - General Ears/Nose/Throat internal nose Drainage: clear 04/08/2014 None Full Exam - General Ears/Nose/Throat oral cavity/pharynx/larynx Overall: oral mucosa clear 04/08/2014 None Full Exam - General Constitutional general appearance Overall: well nourished 03/05/2014 None Full Exam - General Constitutional general appearance Overall: well developed 03/05/2014 None Full Exam - General Constitutional general appearance Overall: in no acute distress 03/05/2014 None Full Exam - General Neurologic mental status Overall: alert 4 None Full Exam - General Neurologic mental status Overall: oriented 03/05/2014 None Full Exam - General Psychiatric mood and affect Overall: normal mood and affect 03/05/2014 None Full Exam - General Respiratory auscultation Overall: breath sounds clear bilater ally 03/05/2014 None Full Exam - General Cardiovascular auscultation of heart Overall: regular rate 03/05/2014 None Full Exam - General Cardiovascular auscultation of heart Overall: normal heart sounds 03/05/2014 None Full Exam - General Cardiovascular auscultation of heart S3 (ventricular gallop): present 03/05/2014 None Full Exam - General Cardiovascular auscultation of heart Murmur: previously known murmur unchanged 03/05/2014 None Full Exam - General Cardiovascular extremities Overall: no clubbing 03/05/2014 None Full Exam - General Cardiovascular extremities Overall: No edema 03/05/2014 None Full Exam - General Cardiovascular extremities Overall: No cyanosis 03/05/2014 None Full Exam - General Musculoskeletal spine, ribs and pelvis Spine: tender @ thoracic spine 03/05/2014 None Full Exam - General Musculoskeletal spine, ribs and pelvis Spine: tender @ lumbar spin e 03/05/2014 None Full Exam - General Constitutional general appearance Overall: well nourished 07/29/2013 None Full Exam - General Constitutional general appearance Overall: well developed 07/29/2013 None Full Exam - General Constitutional general appearance Overall: in no acute distress 07/29/2013 None Full Exam - General Neurologic mental status Overall: alert 4 None Full Exam - General Neurologic mental status Overall: oriented 07/29/2013 None Full Exam - General Psychiatric mood and affect Overall: normal mood and affect 07/29/2013 None Full Exam - General Respiratory auscultation Overall: breath sounds clear bilater ally 07/29/2013 None Full Exam - General Cardiovascular auscultation of heart Overall: regular rate 07/29/2013 None Full Exam - General Cardiovascular auscultation of heart Overall: normal heart sounds 07/29/2013 None Full Exam - General Cardiovascular auscultation of heart S3 (ventricular gallop): present 07/29/2013 None Full Exam - General Ears/Nose/Throat otoscopic exam Overall: external auditory canals clear 07/29/2013 None Full Exam - General Ears/Nose/Throat otoscopic exam Overall: tympanic membranes clear 07/29/2013 None Full Exam - General Ears/Nose/Throat internal nose Turbinates: hypertrophy 07/29/2013 None Full Exam - General Ears/Nose/Throat internal nose Turbinates: erythema 07/29/2013 None Full Exam - General Ears/Nose/Throat oral cavity/pharynx/larynx Oropharynx: erythema 07/29/2013 None Full Exam - General Constitutional general appearance Overall: well nourished 02/12/2013 None Full Exam - General Constitutional general appearance Overall: well developed 02/12/2013 None Full Exam - General Constitutional general appearance Overall: in no acute distress 02/12/2013 None Full Exam - General Neurologic mental status Overall: alert 3 None Full Exam - General Neurologic mental status Overall: oriented 02/12/2013 None Full Exam - General Psychiatric mood and affect Overall: normal mood and affect 02/12/2013 None Full Exam - General Musculoskeletal spine, ribs and pelvis Overall: good posture 02/12/2013 None Full Exam - General Musculoskeletal spine, ribs and pelvis Overall: ribs benign 02/12/2013 None Full Exam - General Musculoskeletal spine, ribs and pelvis Overall: spine benign 02/12/2013 None Full Exam - General Musculoskeletal right lower extremity Inspection - right foot: a normal exam 02/12/2013 None Full Exam - General Musculoskeletal right lower extremity Palpation - right foot: tender 02/12/2013 heal Full Exam - General Ears/Nose/Throat otoscopic exam Overall: external auditory canals clear 02/12/2013 None Full Exam - General Ears/Nose/Throat otoscopic exam Overall: tympanic membranes clear 02/12/2013 None Full Exam - General Ears/Nose/Throat internal nose Turbinates: hypertrophy 02/12/2013 None Full Exam - General Ears/Nose/Throat internal nose Turbinates: pale 02/12/2013 None Full Exam - General Ears/Nose/Throat oral cavity/pharynx/larynx Overall: oral mucosa clear 02/12/2013 None Full Exam - General Constitutional general appearance Nourishment: obese 11/05/2012 None Full Exam - General Respiratory auscultation Overall: breath sounds clear bilater ally 11/05/2012 None Full Exam - General Respiratory respiratory effort/rhythm Overall: no retractions 11/05/2012 None Full Exam - General Respiratory respiratory effort/rhythm Overall: normal rate 11/05/2012 None Full Exam - General Cardiovascular auscultation of heart Overall: regular rate 11/05/2012 None Full Exam - General Cardiovascular auscultation of heart Overall: normal heart sounds 11/05/2012 None Full Exam - General Musculoskeletal head and neck Overall: head atraumatic 11/05/2012 None Full Exam - General Musculoskeletal head and neck Overall: cervical spine benign 11/05/2012 None Full Exam - General Musculoskeletal spine, ribs and pelvis Spine: tender @ thoracic spine 11/05/2012 None Full Exam - General Musculoskeletal spine, ribs and pelvis Spine: tender @ lumbar spin e 11/05/2012 None Full Exam - General Musculoskeletal spine, ribs and pelvis Spine: normal Camille's ines t 11/05/2012 None Full Exam - General Musculoskeletal spine, ribs and pelvis Spine: normal straight leg raise 11/05/2012 None Full Exam - General Musculoskeletal gait and station Overall: normal gait 11/05/2012 None Full Exam - General Musculoskeletal gait and station Overall: normal station 11/05/2012 None Full Exam - General Psychiatric orientation/consciousness Overall: oriented to person, place and time 11/05/2012 None Full Exam - General Integument inspection of skin Rash/Lesions: papule 11/05/2012 two small papules on left 3rd finger. Denies known bite or trauma. States was pulling weeds yesterday. Pain not itch at site Full Exam - General Constitutional general appearance Overall: well nourished 10/04/2012 None Full Exam - General Constitutional general appearance Overall: well developed 10/04/2012 None Full Exam - General Constitutional general appearance Overall: in no acute distress 10/04/2012 None Full Exam - General Neurologic mental status Overall: alert 3 None Full Exam - General Neurologic mental status Overall: oriented 10/04/2012 None Full Exam - General Psychiatric mood and affect Overall: normal mood and affect 10/04/2012 None Full Exam - General Musculoskeletal spine, ribs and pelvis Spine: tender @ cervical spine 10/04/2012 on right Full Exam - General Musculoskeletal spine, ribs and pelvis Spine: tender @ thoracic spine 10/04/2012 on right Full Exam - General Musculoskeletal gait and station Overall: normal gait 10/04/2012 None Full Exam - General Musculoskeletal gait and station Overall: normal station 10/04/2012 None Full Exam - General Constitutional general appearance Overall: well nourished 09/24/2012 None Full Exam - General Constitutional general appearance Overall: well developed 09/24/2012 None Full Exam - General Constitutional general appearance Overall: in no acute distress 09/24/2012 None Full Exam - General Neurologic mental status Overall: alert 3 None Full Exam - General Neurologic mental status Overall: oriented 09/24/2012 None Full Exam - General Psychiatric mood and affect Overall: normal mood and affect 09/24/2012 None Full Exam - General Respiratory auscultation Overall: breath sounds clear bilater ally 09/24/2012 None Full Exam - General Cardiovascular auscultation of heart Overall: regular rate 09/24/2012 None Full Exam - General Cardiovascular auscultation of heart Overall: normal heart sounds 09/24/2012 None Full Exam - General Cardiovascular auscultation of heart S3 (ventricular gallop): present 09/24/2012 None Full Exam - General Cardiovascular auscultation of heart Murmur: previously known murmur unchanged 09/24/2012 None Full Exam - General Constitutional general appearance Overall: well nourished 05/10/2012 None Full Exam - General Constitutional general appearance Overall: well developed 05/10/2012 None Full Exam - General Constitutional general appearance Overall: in no acute distress 05/10/2012 None Full Exam - General Neurologic mental status Overall: alert 2 None Full Exam - General Neurologic mental status Overall: oriented 05/10/2012 None Full Exam - General Psychiatric mood and affect Overall: normal mood and affect 05/10/2012 None Full Exam - General Musculoskeletal right upper extremity Palpation - right elbow: tender lateral epicondyle 05/10/2012 None Full Exam - General Musculoskeletal right upper extremity Palpation - right wrist: a normal exam 05/10/2012 None Full Exam - General Constitutional general appearance Overall: well nourished 03/07/2012 None Full Exam - General Constitutional general appearance Overall: well developed 03/07/2012 None Full Exam - General Constitutional general appearance Overall: in no acute distress 03/07/2012 None Full Exam - General Neurologic mental status Overall: alert 2 None Full Exam - General Neurologic mental status Overall: oriented 03/07/2012 None Full Exam - General Psychiatric mood and affect Overall: normal mood and affect 03/07/2012 None Full Exam - General Respiratory auscultation Overall: breath sounds clear bilater ally 03/07/2012 None Full Exam - General Cardiovascular auscultation of heart Overall: regular rate 03/07/2012 None Full Exam - General Cardiovascular auscultation of heart Overall: normal heart sounds 03/07/2012 None Full Exam - General Cardiovascular auscultation of heart Overall: no murmurs 03/07/2012 None Full Exam - General Neck inspection of neck Overall: normal size 03/07/2012 None Full Exam - General Neck inspection of neck Overall: no masses 03/07/2012 None Full Exam - General Abdomen abdominal exam Overall: no masses 03/07/2012 None Full Exam - General Abdomen abdominal exam Overall: no tenderness 03/07/2012 None Full Exam - General Abdomen abdominal exam Overall: normal bowel sounds 03/07/2012 None Full Exam - General Abdomen abdominal exam Overall: soft 03/07/2012 None Full Exam - General Ears/Nose/Throat otoscopic exam Overall: external auditory canals clear 03/07/2012 None Full Exam - General Ears/Nose/Throat otoscopic exam Overall: tympanic membranes clear 03/07/2012 None Full Exam - General Ears/Nose/Throat internal nose Turbinates: hypertrophy 03/07/2012 None Full Exam - General Ears/Nose/Throat oral cavity/pharynx/larynx Overall: oral mucosa clear 03/07/2012 None Full Exam - General Musculoskeletal right upper extremity Palpation - right wrist: positive Yayo's test 03/07/2012 None Full Exam - General Musculoskeletal right upper extremity Palpation - right wrist: tender 03/07/2012 None Full Exam - General Musculoskeletal left lower extremity Inspection - left foot: nodule 03/07/2012 left lateral foot at base of 5th tarsal Full Exam - General Musculoskeletal left lower extremity Palpation - left foot: tender 03/07/2012 base of 5th tarsal Full Exam - General Constitutional general appearance Overall: well nourished 02/01/2012 None Full Exam - General Constitutional general appearance Overall: well developed 02/01/2012 None Full Exam - General Constitutional general appearance Overall: in no acute distress 02/01/2012 None Full Exam - General Neurologic mental status Overall: alert 2 None Full Exam - General Neurologic mental status Overall: oriented 02/01/2012 None Full Exam - General Psychiatric mood and affect Overall: normal mood and affect 02/01/2012 None Full Exam - General Abdomen abdominal exam Overall: no masses 02/01/2012 None Full Exam - General Abdomen abdominal exam Overall: no tenderness 02/01/2012 None Full Exam - General Abdomen abdominal exam Overall: normal bowel sounds 02/01/2012 None Full Exam - General Abdomen abdominal exam Overall: soft 02/01/2012 None Full Exam - General Cardiovascular auscultation of heart Overall: regular rate 02/01/2012 None Full Exam - General Cardiovascular auscultation of heart Overall: normal heart sounds 02/01/2012 None Full Exam - General Cardiovascular auscultation of heart Overall: no murmurs 02/01/2012 None Full Exam - General Respiratory auscultation Overall: breath sounds clear bilater ally 02/01/2012 None Full Exam - General Constitutional general appearance Overall: in no acute distress 12/20/2011 None Full Exam - General Neurologic mental status Overall: alert 2 None Full Exam - General Neurologic mental status Overall: oriented 12/20/2011 None Full Exam - General Psychiatric mood and affect Overall: normal mood and affect 12/20/2011 None Full Exam - General Respiratory auscultation Overall: breath sounds clear bilater ally 12/20/2011 None Full Exam - General Cardiovascular auscultation of heart Overall: regular rate 12/20/2011 None Full Exam - General Cardiovascular auscultation of heart Overall: normal heart sounds 12/20/2011 None Full Exam - General Cardiovascular auscultation of heart S3 (ventricular gallop): present 12/20/2011 None Full Exam - General Cardiovascular auscultation of heart Murmur: previously known murmur unchanged 12/20/2011 None Full Exam - General Cardiovascular extremities Overall: no clubbing 12/20/2011 None Full Exam - General Cardiovascular extremities Overall: No cyanosis 12/20/2011 None Full Exam - General Cardiovascular extremities Edema present: severity 1+ - 4+: trace 12/20/2011 None Full Exam - General Musculoskeletal left lower extremity Palpation - left knee: crepitus 12/20/2011 None Full Exam - General Constitutional general appearance Overall: well nourished 12/20/2011 None Full Exam - General Constitutional general appearance Overall: well developed 12/20/2011 None Full Exam - General Constitutional general appearance Overall: well nourished 11/22/2011 None Full Exam - General Constitutional general appearance Overall: well developed 11/22/2011 None Full Exam - General Constitutional general appearance Overall: in no acute distress 11/22/2011 None Full Exam - General Integument inspection of skin Rash/Lesions: papule 11/22/2011 nickel sized area of redn ess. No warmth or streaking. Full Exam - General Psychiatric orientation/consciousness Overall: oriented to person, place and time 11/22/2011 None Full Exam - General Neurologic mental status Overall: alert 2 None Full Exam - General Neurologic mental status Overall: oriented 11/22/2011 None Full Exam - General Constitutional general appearance Overall: well nourished 07/11/2011 None Full Exam - General Constitutional general appearance Overall: well developed 07/11/2011 None Full Exam - General Constitutional general appearance Overall: in no acute distress 07/11/2011 None Full Exam - General Respiratory auscultation Right upper lung field: a normal exa m 07/11/2011 None Full Exam - General Respiratory auscultation Right middle lung field: a normal ex am 07/11/2011 None Full Exam - General Respiratory auscultation Right lower lung field: a normal exa m 07/11/2011 None Full Exam - General Respiratory auscultation Left lower lung field: a normal exam 07/11/2011 None Full Exam - General Respiratory auscultation Overall: breath sounds clear bilater ally 07/11/2011 None Full Exam - General Respiratory auscultation Left upper lung field: a normal exam 07/11/2011 None Full Exam - General Respiratory auscultation Diffuse: a normal exam 07/11/2011 None Full Exam - General Cardiovascular auscultation of heart Overall: regular rate 07/11/2011 None Full Exam - General Cardiovascular auscultation of heart Overall: normal heart sounds 07/11/2011 None Full Exam - General Cardiovascular auscultation of heart Overall: no murmurs 07/11/2011 None Full Exam - General Cardiovascular extremities Overall: no clubbing 07/11/2011 None Full Exam - General Cardiovascular extremities Overall: No edema 07/11/2011 None Full Exam - General Cardiovascular extremities Overall: No cyanosis 07/11/2011 None Full Exam - General Abdomen abdominal exam Overall: no masses 07/11/2011 None Full Exam - General Abdomen abdominal exam Overall: normal bowel sounds 07/11/2011 None Full Exam - General Abdomen abdominal exam Overall: soft 07/11/2011 None Full Exam - General Abdomen abdominal exam Left lower quadrant: tender to palpa tion 07/11/2011 None Full Exam - General Abdomen abdominal exam Suprapubic: tender to palpation 07/11/2011 None Full Exam - General Abdomen abdominal exam Right lower quadrant: tender to palp ation 07/11/2011 None Full Exam - General Neurologic mental status Overall: alert 2 None Full Exam - General Neurologic mental status Overall: oriented 07/11/2011 None Full Exam - General Psychiatric mood and affect Overall: normal mood and affect 07/11/2011 None Full Exam - General Constitutional general appearance Overall: in no acute distress 07/06/2011 None Full Exam - General Constitutional general appearance Overall: well developed 07/06/2011 None Full Exam - General Constitutional general appearance Overall: well nourished 07/06/2011 None Full Exam - General Neurologic mental status Overall: alert 2 None Full Exam - General Neurologic mental status Overall: oriented 07/06/2011 None Full Exam - General Psychiatric mood and affect Overall: normal mood and affect 07/06/2011 None Full Exam - General Respiratory auscultation Right upper lung field: a normal exa m 07/06/2011 None Full Exam - General Respiratory auscultation Right middle lung field: a normal ex am 07/06/2011 None Full Exam - General Respiratory auscultation Right lower lung field: a normal exa m 07/06/2011 None Full Exam - General Respiratory auscultation Left lower lung field: a normal exam 07/06/2011 None Full Exam - General Respiratory auscultation Overall: breath sounds clear bilater ally 07/06/2011 None Full Exam - General Respiratory auscultation Left upper lung field: a normal exam 07/06/2011 None Full Exam - General Respiratory auscultation Diffuse: a normal exam 07/06/2011 None Full Exam - General Cardiovascular auscultation of heart Overall: no murmurs 07/06/2011 None Full Exam - General Cardiovascular auscultation of heart Overall: regular rate 07/06/2011 None Full Exam - General Cardiovascular auscultation of heart Overall: normal heart sounds 07/06/2011 None Full Exam - General Cardiovascular auscultation of heart S1: a normal exam 07/06/2011 None Full Exam - General Cardiovascular auscultation of heart S2: a normal exam 07/06/2011 None Full Exam - General Cardiovascular auscultation of heart Rhythm: regular rhythm 07/06/2011 None Full Exam - General Cardiovascular auscultation of heart Rate: regular rate 07/06/2011 None Full Exam - General Cardiovascular auscultation of heart S3 (ventricular gallop): present 07/06/2011 None Full Exam - General Cardiovascular extremities Overall: no clubbing 07/06/2011 None Full Exam - General Cardiovascular extremities Overall: No edema 07/06/2011 None Full Exam - General Cardiovascular extremities Overall: No cyanosis 07/06/2011 None Full Exam - General Abdomen abdominal exam Overall: no masses 07/06/2011 None Full Exam - General Abdomen abdominal exam Overall: no tenderness 07/06/2011 None Full Exam - General Abdomen abdominal exam Overall: normal bowel sounds 07/06/2011 None Full Exam - General Abdomen abdominal exam Overall: soft 07/06/2011 None Full Exam - General Ears/Nose/Throat otoscopic exam Overall: external auditory canals clear 07/06/2011 None Full Exam - General Ears/Nose/Throat otoscopic exam Overall: tympanic membranes clear 07/06/2011 None Full Exam - General Musculoskeletal head and neck Left TMJ: tender 07/06/2011 None Full Exam - General Constitutional general appearance Overall: in no acute distress 05/26/2011 None Full Exam - General Constitutional general appearance Overall: well developed 05/26/2011 None Full Exam - General Constitutional general appearance Overall: well nourished 05/26/2011 None Full Exam - General Neurologic mental status Overall: alert 1 None Full Exam - General Neurologic mental status Overall: oriented 05/26/2011 None Full Exam - General Psychiatric mood and affect Overall: normal mood and affect 05/26/2011 None Full Exam - General Musculoskeletal spine, ribs and pelvis Spine: tender @ thoracic spine 05/26/2011 None Full Exam - General Musculoskeletal spine, ribs and pelvis Spine: tender @ lumbar spin e 05/26/2011 None Full Exam - General Constitutional general appearance Overall: in no acute distress 05/16/2011 None Full Exam - General Constitutional general appearance Overall: well developed 05/16/2011 None Full Exam - General Constitutional general appearance Overall: well nourished 05/16/2011 None Full Exam - General Neurologic mental status Overall: alert 1 None Full Exam - General Neurologic mental status Overall: oriented 05/16/2011 None Full Exam - General Psychiatric mood and affect Overall: normal mood and affect 05/16/2011 None Full Exam - General Musculoskeletal spine, ribs and pelvis Spine: tender @ thoracic spine 05/16/2011 None Full Exam - General Musculoskeletal spine, ribs and pelvis Spine: tender @ lumbar spin e 05/16/2011 None Full Exam - General Musculoskeletal spine, ribs and pelvis Sacroiliac joints: tender left sacroiliac joint 05/16/2011 None Full Exam - General Constitutional general appearance Overall: in no acute distress 05/05/2011 None Full Exam - General Constitutional general appearance Overall: well developed 05/05/2011 None Full Exam - General Constitutional general appearance Overall: well nourished 05/05/2011 None Full Exam - General Neurologic mental status Overall: alert 1 None Full Exam - General Neurologic mental status Overall: oriented 05/05/2011 None Full Exam - General Psychiatric mood and affect Overall: normal mood and affect 05/05/2011 None Full Exam - General Musculoskeletal spine, ribs and pelvis Spine: tender @ thoracic spine 05/05/2011 None Full Exam - General Musculoskeletal spine, ribs and pelvis Spine: tender @ lumbar spin e 05/05/2011 None Full Exam - General Musculoskeletal right lower extremity ROM - right knee: crepitus 05/05/2011 None Full Exam - General Musculoskeletal left lower extremity ROM - left knee: crepitus 05/05/2011 None Full Exam - General Constitutional general appearance Overall: in no acute distress 04/05/2011 None Full Exam - General Constitutional general appearance Overall: well developed 04/05/2011 None Full Exam - General Constitutional general appearance Overall: well nourished 04/05/2011 None Full Exam - General Respiratory auscultation Right upper lung field: a normal exa m 04/05/2011 None Full Exam - General Respiratory auscultation Right middle lung field: a normal ex am 04/05/2011 None Full Exam - General Respiratory auscultation Right lower lung field: a normal exa m 04/05/2011 None Full Exam - General Respiratory auscultation Left lower lung field: a normal exam 04/05/2011 None Full Exam - General Respiratory auscultation Overall: breath sounds clear bilater ally 04/05/2011 None Full Exam - General Respiratory auscultation Left upper lung field: a normal exam 04/05/2011 None Full Exam - General Respiratory auscultation Diffuse: a normal exam 04/05/2011 None Full Exam - General Cardiovascular auscultation of heart Overall: no murmurs 04/05/2011 None Full Exam - General Cardiovascular auscultation of heart Overall: regular rate 04/05/2011 None Full Exam - General Cardiovascular auscultation of heart Overall: normal heart sounds 04/05/2011 None Full Exam - General Cardiovascular auscultation of heart S1: a normal exam 04/05/2011 None Full Exam - General Cardiovascular auscultation of heart S2: a normal exam 04/05/2011 None Full Exam - General Cardiovascular auscultation of heart Rhythm: regular rhythm 04/05/2011 None Full Exam - General Cardiovascular auscultation of heart Rate: regular rate 04/05/2011 None Full Exam - General Cardiovascular auscultation of heart S3 (ventricular gallop): present 04/05/2011 None Full Exam - General Cardiovascular extremities Overall: no clubbing 04/05/2011 None Full Exam - General Cardiovascular extremities Overall: No edema 04/05/2011 None Full Exam - General Cardiovascular extremities Overall: No cyanosis 04/05/2011 None Full Exam - General Abdomen abdominal exam Overall: no masses 04/05/2011 None Full Exam - General Abdomen abdominal exam Overall: normal bowel sounds 04/05/2011 None Full Exam - General Abdomen abdominal exam Overall: soft 04/05/2011 None Full Exam - General Abdomen abdominal exam Left lower quadrant: tender to palpa tion 04/05/2011 None Full Exam - General Neurologic mental status Overall: alert 1 None Full Exam - General Neurologic mental status Overall: oriented 04/05/2011 None Full Exam - General Psychiatric mood and affect Overall: normal mood and affect 04/05/2011 None Full Exam - General Cardiovascular auscultation of heart Overall: regular rate 03/02/2011 None Full Exam - General Cardiovascular auscultation of heart Overall: normal heart sounds 03/02/2011 None Full Exam - General Cardiovascular auscultation of heart S1: a normal exam 03/02/2011 None Full Exam - General Cardiovascular auscultation of heart S2: a normal exam 03/02/2011 None Full Exam - General Cardiovascular auscultation of heart Rhythm: regular rhythm 03/02/2011 None Full Exam - General Cardiovascular auscultation of heart Rate: regular rate 03/02/2011 None Full Exam - General Cardiovascular auscultation of heart S3 (ventricular gallop): present 03/02/2011 None Full Exam - General Cardiovascular extremities Overall: no clubbing 03/02/2011 None Full Exam - General Cardiovascular extremities Overall: No edema 03/02/2011 None Full Exam - General Cardiovascular extremities Overall: No cyanosis 03/02/2011 None Full Exam - General Constitutional general appearance Overall: in no acute distress 03/02/2011 None Full Exam - General Constitutional general appearance Overall: well developed 03/02/2011 None Full Exam - General Constitutional general appearance Overall: well nourished 03/02/2011 None Full Exam - General Neurologic mental status Overall: alert 1 None Full Exam - General Neurologic mental status Overall: oriented 03/02/2011 None Full Exam - General Psychiatric mood and affect Overall: normal mood and affect 03/02/2011 None Full Exam - General Respiratory auscultation Right upper lung field: a normal exa m 03/02/2011 None Full Exam - General Respiratory auscultation Right middle lung field: a normal ex am 03/02/2011 None Full Exam - General Respiratory auscultation Right lower lung field: a normal exa m 03/02/2011 None Full Exam - General Respiratory auscultation Left lower lung field: a normal exam 03/02/2011 None Full Exam - General Respiratory auscultation Overall: breath sounds clear bilater ally 03/02/2011 None Full Exam - General Respiratory auscultation Left upper lung field: a normal exam 03/02/2011 None Full Exam - General Respiratory auscultation Diffuse: a normal exam 03/02/2011 None Full Exam - General Cardiovascular auscultation of heart Overall: no murmurs 03/02/2011 None Full Exam - General Constitutional general appearance Overall: well nourished 01/05/2011 None Full Exam - General Constitutional general appearance Overall: well developed 01/05/2011 None Full Exam - General Constitutional general appearance Overall: in no acute distress 01/05/2011 sits and calmly relays sy mptoms of chest pain and pressure Full Exam - General Ears/Nose/Throat otoscopic exam Overall: external auditory canals clear 01/05/2011 None Full Exam - General Ears/Nose/Throat otoscopic exam Overall: tympanic membranes clear 01/05/2011 None Full Exam - General Ears/Nose/Throat lips/teeth/gingiva Overall: benign lips 01/05/2011 None Full Exam - General Ears/Nose/Throat lips/teeth/gingiva Overall: normal dentition 01/05/2011 None Full Exam - General Ears/Nose/Throat lips/teeth/gingiva Overall: benign gingiva 01/05/2011 None Full Exam - General Ears/Nose/Throat oral cavity/pharynx/larynx Overall: oral mucosa clear 01/05/2011 None Full Exam - General Ears/Nose/Throat oral cavity/pharynx/larynx Overall: tonsils benign 01/05/2011 None Full Exam - General Ears/Nose/Throat oral cavity/pharynx/larynx Overall: oropharyngeal mucosa clear 01/05/2011 None Full Exam - General Respiratory auscultation Overall: breath sounds clear bilater ally 01/05/2011 None Full Exam - General Respiratory respiratory effort/rhythm Overall: no retractions 01/05/2011 None Full Exam - General Respiratory respiratory effort/rhythm Overall: normal rate 01/05/2011 None Full Exam - General Cardiovascular auscultation of heart Rate: tachycardia 01/05/2011 None Full Exam - General Cardiovascular auscultation of heart Rhythm: regular rhythm 01/05/2011 None Full Exam - General Cardiovascular auscultation of heart Overall: normal heart sounds 01/05/2011 None Full Exam - General Cardiovascular auscultation of heart Overall: no murmurs 01/05/2011 None Full Exam - General Abdomen abdominal exam Left lower quadrant: dull pain 01/05/2011 None Full Exam - General Abdomen abdominal exam Left lower quadrant: no rebound tend erness 01/05/2011 None Full Exam - General Abdomen abdominal exam Left lower quadrant: no mass lesions 01/05/2011 None Full Exam - General Lymphatic neck nodes Overall: anterior cervical chain chanelle ign 01/05/2011 None Full Exam - General Lymphatic neck nodes Overall: posterior cervical chain be nign 01/05/2011 None Full Exam - General Integument inspection of skin Overall: no rash, lesions 01/05/2011 None Full Exam - General Psychiatric orientation/consciousness Overall: oriented to person, place and time 01/05/2011 None Full Exam - General Integument inspection of skin Location: left leg 11/16/2010 posterior thigh with lipoma laterally ap prox 2cm Full Exam - General Cardiovascular auscultation of heart Overall: regular rate 11/16/2010 None Full Exam - General Cardiovascular auscultation of heart Overall: normal heart sounds 11/16/2010 None Full Exam - General Cardiovascular auscultation of heart Overall: no murmurs 11/16/2010 None Full Exam - General Cardiovascular auscultation of heart Rate: regular rate 11/16/2010 None Full Exam - General Neurologic mental status Overall: oriented 11/16/2010 None Full Exam - General Psychiatric mood and affect Overall: normal mood and affect 11/16/2010 None Full Exam - General Respiratory auscultation Overall: breath sounds clear bilater ally 11/16/2010 None Full Exam - General Respiratory auscultation Diffuse: a normal exam 11/16/2010 None Full Exam - General Respiratory auscultation Left upper lung field: a normal exam 11/16/2010 None Full Exam - General Respiratory auscultation Left lower lung field: a normal exam 11/16/2010 None Full Exam - General Respiratory auscultation Right upper lung field: a normal exa m 11/16/2010 None Full Exam - General Respiratory auscultation Right middle lung field: a normal ex am 11/16/2010 None Full Exam - General Respiratory auscultation Right lower lung field: a normal exa m 11/16/2010 None Full Exam - General Cardiovascular auscultation of heart Rhythm: regular rhythm 11/16/2010 None Full Exam - General Cardiovascular auscultation of heart S1: a normal exam 11/16/2010 None Full Exam - General Cardiovascular auscultation of heart S2: a normal exam 11/16/2010 None Full Exam - General Cardiovascular auscultation of heart S3 (ventricular gallop): present 11/16/2010 None Full Exam - General Cardiovascular extremities Overall: no clubbing 11/16/2010 None Full Exam - General Cardiovascular extremities Overall: No edema 11/16/2010 None Full Exam - General Cardiovascular extremities Overall: No cyanosis 11/16/2010 None Full Exam - General Abdomen abdominal exam Overall: no masses 11/16/2010 None Full Exam - General Abdomen abdominal exam Overall: no tenderness 11/16/2010 None Full Exam - General Abdomen abdominal exam Overall: normal bowel sounds 11/16/2010 None Full Exam - General Abdomen abdominal exam Overall: soft 11/16/2010 None Full Exam - General Constitutional general appearance Overall: well nourished 11/16/2010 None Full Exam - General Constitutional general appearance Overall: well developed 11/16/2010 None Full Exam - General Constitutional general appearance Overall: in no acute distress 11/16/2010 None Full Exam - General Neurologic mental status Overall: alert 1 None Full Exam - General Constitutional general appearance Overall: well nourished 11/04/2010 None Full Exam - General Constitutional general appearance Overall: well developed 11/04/2010 None Full Exam - General Constitutional general appearance Overall: in no acute distress 11/04/2010 None Full Exam - General Neurologic mental status Overall: alert 1 None Full Exam - General Neurologic mental status Overall: oriented 11/04/2010 None Full Exam - General Psychiatric mood and affect Overall: normal mood and affect 11/04/2010 None Full Exam - General Abdomen abdominal exam Overall: no masses 11/04/2010 None Full Exam - General Abdomen abdominal exam Overall: no tenderness 11/04/2010 None Full Exam - General Abdomen abdominal exam Overall: normal bowel sounds 11/04/2010 None Full Exam - General Abdomen abdominal exam Overall: soft 11/04/2010 None Full Exam - General Respiratory auscultation Overall: breath sounds clear bilater ally 11/04/2010 None Full Exam - General Respiratory auscultation Diffuse: a normal exam 11/04/2010 None Full Exam - General Respiratory auscultation Left upper lung field: a normal exam 11/04/2010 None Full Exam - General Respiratory auscultation Left lower lung field: a normal exam 11/04/2010 None Full Exam - General Respiratory auscultation Right upper lung field: a normal exa m 11/04/2010 None Full Exam - General Respiratory auscultation Right middle lung field: a normal ex am 11/04/2010 None Full Exam - General Respiratory auscultation Right lower lung field: a normal exa m 11/04/2010 None Full Exam - General Cardiovascular auscultation of heart Overall: regular rate 11/04/2010 None Full Exam - General Cardiovascular auscultation of heart Overall: normal heart sounds 11/04/2010 None Full Exam - General Cardiovascular auscultation of heart Overall: no murmurs 11/04/2010 None Full Exam - General Cardiovascular auscultation of heart Rhythm: regular rhythm 11/04/2010 None Full Exam - General Cardiovascular auscultation of heart S1: a normal exam 11/04/2010 None Full Exam - General Cardiovascular auscultation of heart S2: a normal exam 11/04/2010 None Full Exam - General Cardiovascular auscultation of heart S3 (ventricular gallop): present 11/04/2010 None Full Exam - General Cardiovascular auscultation of heart Rate: tachycardia 11/04/2010 None Full Exam - General Cardiovascular extremities Overall: no clubbing 11/04/2010 None Full Exam - General Cardiovascular extremities Overall: No edema 11/04/2010 None Full Exam - General Cardiovascular extremities Overall: No cyanosis 11/04/2010 None Full Exam - General Constitutional general appearance Overall: well nourished 08/05/2010 None Full Exam - General Constitutional general appearance Overall: well developed 08/05/2010 None Full Exam - General Constitutional general appearance Overall: in no acute distress 08/05/2010 None Full Exam - General Ears/Nose/Throat otoscopic exam Overall: external auditory canals clear 08/05/2010 None Full Exam - General Ears/Nose/Throat otoscopic exam Overall: tympanic membranes clear 08/05/2010 None Full Exam - General Ears/Nose/Throat internal nose Turbinates: hypertrophy 08/05/2010 None Full Exam - General Ears/Nose/Throat internal nose Turbinates: erythema 08/05/2010 None Full Exam - General Ears/Nose/Throat oral cavity/pharynx/larynx Overall: oral mucosa clear 08/05/2010 None Full Exam - General Respiratory auscultation Overall: breath sounds clear bilater ally 08/05/2010 None Full Exam - General Respiratory auscultation Diffuse: a normal exam 08/05/2010 None Full Exam - General Respiratory auscultation Left upper lung field: a normal exam 08/05/2010 None Full Exam - General Respiratory auscultation Left lower lung field: a normal exam 08/05/2010 None Full Exam - General Respiratory auscultation Right upper lung field: a normal exa m 08/05/2010 None Full Exam - General Respiratory auscultation Right middle lung field: a normal ex am 08/05/2010 None Full Exam - General Respiratory auscultation Right lower lung field: a normal exa m 08/05/2010 None Full Exam - General Cardiovascular auscultation of heart Overall: regular rate 08/05/2010 None Full Exam - General Cardiovascular auscultation of heart Overall: normal heart sounds 08/05/2010 None Full Exam - General Cardiovascular auscultation of heart Overall: no murmurs 08/05/2010 None Full Exam - General Cardiovascular auscultation of heart Rate: regular rate 08/05/2010 None Full Exam - General Cardiovascular auscultation of heart Rhythm: regular rhythm 08/05/2010 None Full Exam - General Cardiovascular auscultation of heart S1: a normal exam 08/05/2010 None Full Exam - General Cardiovascular auscultation of heart S2: a normal exam 08/05/2010 None Full Exam - General Cardiovascular auscultation of heart S3 (ventricular gallop): present 08/05/2010 None Full Exam - General Neurologic mental status Overall: alert 1 None Full Exam - General Neurologic mental status Overall: oriented 08/05/2010 None Full Exam - General Psychiatric mood and affect Overall: normal mood and affect 08/05/2010 None Full Exam - General Constitutional general appearance Overall: well nourished 07/23/2010 None Full Exam - General Constitutional general appearance Overall: well developed 07/23/2010 None Full Exam - General Constitutional general appearance Overall: in no acute distress 07/23/2010 None Full Exam - General Neurologic mental status Overall: alert 1 None Full Exam - General Neurologic mental status Overall: oriented 07/23/2010 None Full Exam - General Psychiatric mood and affect Overall: normal mood and affect 07/23/2010 None Full Exam - General Abdomen abdominal exam Overall: no masses 07/23/2010 None Full Exam - General Abdomen abdominal exam Overall: no tenderness 07/23/2010 None Full Exam - General Abdomen abdominal exam Overall: normal bowel sounds 07/23/2010 None Full Exam - General Abdomen abdominal exam Overall: soft 07/23/2010 None Full Exam - General Respiratory auscultation Basilar: crackles 07/23/2010 None Full Exam - General Respiratory auscultation Apical: clear 07/23/2010 None Full Exam - General Cardiovascular auscultation of heart Overall: regular rate 07/23/2010 None Full Exam - General Cardiovascular auscultation of heart Overall: normal heart sounds 07/23/2010 None Full Exam - General Cardiovascular auscultation of heart Overall: no murmurs 07/23/2010 None Full Exam - General Cardiovascular auscultation of heart Rate: regular rate 07/23/2010 None Full Exam - General Cardiovascular auscultation of heart Rhythm: regular rhythm 07/23/2010 None Full Exam - General Cardiovascular auscultation of heart S1: a normal exam 07/23/2010 None Full Exam - General Cardiovascular auscultation of heart S2: a normal exam 07/23/2010 None Full Exam - General Cardiovascular auscultation of heart S3 (ventricular gallop): present 07/23/2010 None Full Exam - General Ears/Nose/Throat otoscopic exam Overall: external auditory canals clear 07/23/2010 None Full Exam - General Ears/Nose/Throat otoscopic exam Overall: tympanic membranes clear 07/23/2010 None Full Exam - General Ears/Nose/Throat internal nose Turbinates: hypertrophy 07/23/2010 None Full Exam - General Ears/Nose/Throat oral cavity/pharynx/larynx Overall: oral mucosa clear 07/23/2010 None Full Exam - General Constitutional general appearance Overall: well nourished 06/07/2010 None Full Exam - General Constitutional general appearance Overall: well developed 06/07/2010 None Full Exam - General Constitutional general appearance Overall: in no acute distress 06/07/2010 None Full Exam - General Neurologic mental status Overall: alert 1 None Full Exam - General Neurologic mental status Overall: oriented 06/07/2010 None Full Exam - General Psychiatric mood and affect Overall: normal mood and affect 06/07/2010 None Full Exam - General Cardiovascular auscultation of heart Overall: regular rate 06/07/2010 None Full Exam - General Cardiovascular auscultation of heart Overall: normal heart sounds 06/07/2010 None Full Exam - General Cardiovascular auscultation of heart Overall: no murmurs 06/07/2010 None Full Exam - General Cardiovascular auscultation of heart Rate: regular rate 06/07/2010 None Full Exam - General Cardiovascular auscultation of heart Rhythm: regular rhythm 06/07/2010 None Full Exam - General Cardiovascular auscultation of heart S1: a normal exam 06/07/2010 None Full Exam - General Cardiovascular auscultation of heart S2: a normal exam 06/07/2010 None Full Exam - General Cardiovascular auscultation of heart S3 (ventricular gallop): present 06/07/2010 None Full Exam - General Cardiovascular extremities Overall: no clubbing 06/07/2010 None Full Exam - General Cardiovascular extremities Overall: No edema 06/07/2010 None Full Exam - General Cardiovascular extremities Overall: No cyanosis 06/07/2010 None Full Exam - General Respiratory auscultation Overall: breath sounds clear bilater ally 06/07/2010 None Full Exam - General Respiratory auscultation Diffuse: a normal exam 06/07/2010 None Full Exam - General Respiratory auscultation Left upper lung field: a normal exam 06/07/2010 None Full Exam - General Respiratory auscultation Left lower lung field: a normal exam 06/07/2010 None Full Exam - General Respiratory auscultation Right upper lung field: a normal exa m 06/07/2010 None Full Exam - General Respiratory auscultation Right middle lung field: a normal ex am 06/07/2010 None Full Exam - General Respiratory auscultation Right lower lung field: a normal exa m 06/07/2010 None Full Exam - General Constitutional general appearance Overall: well nourished 05/12/2010 None Full Exam - General Constitutional general appearance Overall: well developed 05/12/2010 None Full Exam - General Constitutional general appearance Overall: in no acute distress 05/12/2010 None Full Exam - General Eyes conjunctiva/eyelids Overall: conjunctiva clear 05/12/2010 None Full Exam - General Eyes pupils and irises Overall: pupils equal, round, reacti ve to light and accomodation 05/12/2010 None Full Exam - General Ears/Nose/Throat otoscopic exam Overall: external auditory canals clear 05/12/2010 None Full Exam - General Ears/Nose/Throat otoscopic exam Overall: tympanic membranes clear 05/12/2010 None Full Exam - General Ears/Nose/Throat lips/teeth/gingiva Overall: benign lips 05/12/2010 None Full Exam - General Ears/Nose/Throat lips/teeth/gingiva Overall: normal dentition 05/12/2010 None Full Exam - General Ears/Nose/Throat oral cavity/pharynx/larynx Overall: oral mucosa clear 05/12/2010 None Full Exam - General Ears/Nose/Throat oral cavity/pharynx/larynx Overall: tonsils benign 05/12/2010 None Full Exam - General Ears/Nose/Throat oral cavity/pharynx/larynx Overall: oropharyngeal mucosa clear 05/12/2010 None Full Exam - General Respiratory auscultation Overall: breath sounds clear bilater ally 05/12/2010 None Full Exam - General Respiratory respiratory effort/rhythm Overall: no retractions 05/12/2010 None Full Exam - General Respiratory respiratory effort/rhythm Overall: normal rate 05/12/2010 None Full Exam - General Cardiovascular auscultation of heart Overall: regular rate 05/12/2010 None Full Exam - General Cardiovascular auscultation of heart Overall: normal heart sounds 05/12/2010 None Full Exam - General Psychiatric orientation/consciousness Overall: oriented to person, place and time 05/12/2010 None Full Exam - General Abdomen abdominal exam Overall: no masses 04/27/2010 None Full Exam - General Abdomen abdominal exam Overall: normal bowel sounds 04/27/2010 None Full Exam - General Abdomen abdominal exam Overall: soft 04/27/2010 None Full Exam - General Abdomen abdominal exam Right upper quadrant: tender to palp ation 04/27/2010 None Full Exam - General Abdomen abdominal exam Periumbilical: tender to palpation 04/27/2010 None Full Exam - General Constitutional general appearance Overall: well nourished 04/27/2010 None Full Exam - General Constitutional general appearance Overall: well developed 04/27/2010 None Full Exam - General Constitutional general appearance Overall: in no acute distress 04/27/2010 None Full Exam - General Neurologic mental status Overall: alert 0 None Full Exam - General Neurologic mental status Overall: oriented 04/27/2010 None Full Exam - General Psychiatric mood and affect Overall: normal mood and affect 04/27/2010 None Full Exam - General Constitutional general appearance Overall: well nourished 04/19/2010 None Full Exam - General Constitutional general appearance Overall: well developed 04/19/2010 None Full Exam - General Constitutional general appearance Overall: in no acute distress 04/19/2010 None Full Exam - General Eyes conjunctiva/eyelids Overall: conjunctiva clear 04/19/2010 None Full Exam - General Eyes conjunctiva/eyelids Overall: cornea clear 04/19/2010 None Full Exam - General Eyes conjunctiva/eyelids Overall: eyelids normal 04/19/2010 None Full Exam - General Eyes pupils and irises Overall: pupils equal, round, reacti ve to light and accomodation 04/19/2010 None Full Exam - General Ears/Nose/Throat external ear Overall: normal appearance 04/19/2010 None Full Exam - General Ears/Nose/Throat external ear Overall: no masses 04/19/2010 None Full Exam - General Ears/Nose/Throat otoscopic exam Overall: external auditory canals clear 04/19/2010 None Full Exam - General Ears/Nose/Throat otoscopic exam Overall: tympanic membranes clear 04/19/2010 None Full Exam - General Ears/Nose/Throat lips/teeth/gingiva Overall: benign lips 04/19/2010 None Full Exam - General Ears/Nose/Throat lips/teeth/gingiva Overall: normal dentition 04/19/2010 None Full Exam - General Ears/Nose/Throat lips/teeth/gingiva Overall: benign gingiva 04/19/2010 None Full Exam - General Ears/Nose/Throat oral cavity/pharynx/larynx Overall: oral mucosa clear 04/19/2010 None Full Exam - General Ears/Nose/Throat oral cavity/pharynx/larynx Overall: tonsils benign 04/19/2010 None Full Exam - General Ears/Nose/Throat oral cavity/pharynx/larynx Overall: oropharyngeal mucosa clear 04/19/2010 None Full Exam - General Respiratory auscultation Overall: breath sounds clear bilater ally 04/19/2010 None Full Exam - General Respiratory respiratory effort/rhythm Overall: no retractions 04/19/2010 None Full Exam - General Respiratory respiratory effort/rhythm Overall: normal rate 04/19/2010 None Full Exam - General Cardiovascular auscultation of heart Overall: regular rate 04/19/2010 None Full Exam - General Cardiovascular auscultation of heart Overall: normal heart sounds 04/19/2010 None Full Exam - General Psychiatric orientation/consciousness Overall: oriented to person, place and time 04/19/2010 None Full Exam - General Psychiatric mood and affect Overall: normal mood and affect 03/09/2010 None Full Exam - General Respiratory auscultation Overall: breath sounds clear bilater ally 03/09/2010 None Full Exam - General Respiratory auscultation Diffuse: a normal exam 03/09/2010 None Full Exam - General Neurologic mental status Overall: alert 0 None Full Exam - General Neurologic mental status Overall: oriented 03/09/2010 None Full Exam - General Cardiovascular auscultation of heart S3 (ventricular gallop): present 03/09/2010 None Full Exam - General Abdomen abdominal exam Suprapubic: tender to palpation 03/09/2010 None Full Exam - General Abdomen abdominal exam Overall: no masses 03/09/2010 None Full Exam - General Abdomen abdominal exam Overall: normal bowel sounds 03/09/2010 None Full Exam - General Abdomen abdominal exam Overall: soft 03/09/2010 None Full Exam - General Cardiovascular extremities Overall: no clubbing 03/09/2010 None Full Exam - General Cardiovascular extremities Overall: No edema 03/09/2010 None Full Exam - General Cardiovascular extremities Overall: No cyanosis 03/09/2010 None Full Exam - General Respiratory auscultation Left upper lung field: a normal exam 03/09/2010 None Full Exam - General Respiratory auscultation Left lower lung field: a normal exam 03/09/2010 None Full Exam - General Respiratory auscultation Right upper lung field: a normal exa m 03/09/2010 None Full Exam - General Respiratory auscultation Right middle lung field: a normal ex am 03/09/2010 None Full Exam - General Respiratory auscultation Right lower lung field: a normal exa m 03/09/2010 None Full Exam - General Cardiovascular auscultation of heart Overall: regular rate 03/09/2010 None Full Exam - General Cardiovascular auscultation of heart Overall: normal heart sounds 03/09/2010 None Full Exam - General Cardiovascular auscultation of heart Overall: no murmurs 03/09/2010 None Full Exam - General Cardiovascular auscultation of heart Rate: regular rate 03/09/2010 None Full Exam - General Cardiovascular auscultation of heart Rhythm: regular rhythm 03/09/2010 None Full Exam - General Cardiovascular auscultation of heart S1: a normal exam 03/09/2010 None Full Exam - General Cardiovascular auscultation of heart S2: a normal exam 03/09/2010 None Full Exam - General Constitutional general appearance Overall: well nourished 03/09/2010 None Full Exam - General Constitutional general appearance Overall: well developed 03/09/2010 None Full Exam - General Constitutional general appearance Overall: in no acute distress 03/09/2010 None Full Exam - General Constitutional general appearance Overall: well nourished 01/04/2010 None Full Exam - General Constitutional general appearance Overall: well developed 01/04/2010 None Full Exam - General Constitutional general appearance Overall: in no acute distress 01/04/2010 None Full Exam - General Respiratory auscultation Overall: breath sounds clear bilater ally 01/04/2010 None Full Exam - General Respiratory auscultation Diffuse: a normal exam 01/04/2010 None Full Exam - General Respiratory auscultation Left upper lung field: a normal exam 01/04/2010 None Full Exam - General Respiratory auscultation Left lower lung field: a normal exam 01/04/2010 None Full Exam - General Respiratory auscultation Right upper lung field: a normal exa m 01/04/2010 None Full Exam - General Respiratory auscultation Right middle lung field: a normal ex am 01/04/2010 None Full Exam - General Respiratory auscultation Right lower lung field: a normal exa m 01/04/2010 None Full Exam - General Cardiovascular auscultation of heart Overall: regular rate 01/04/2010 None Full Exam - General Cardiovascular auscultation of heart Overall: normal heart sounds 01/04/2010 None Full Exam - General Cardiovascular auscultation of heart Overall: no murmurs 01/04/2010 None Full Exam - General Cardiovascular auscultation of heart Rate: regular rate 01/04/2010 None Full Exam - General Cardiovascular auscultation of heart Rhythm: regular rhythm 01/04/2010 None Full Exam - General Cardiovascular auscultation of heart S1: a normal exam 01/04/2010 None Full Exam - General Cardiovascular auscultation of heart S2: a normal exam 01/04/2010 None Full Exam - General Cardiovascular auscultation of heart S3 (ventricular gallop): present 01/04/2010 None Full Exam - General Neurologic mental status Overall: alert 0 None Full Exam - General Neurologic mental status Overall: oriented 01/04/2010 None Full Exam - General Psychiatric mood and affect Overall: normal mood and affect 01/04/2010 None Full Exam - General Musculoskeletal spine, ribs and pelvis Spine: tender @ cervical spine 01/04/2010 None Full Exam - General Musculoskeletal spine, ribs and pelvis Spine: tender @ thoracic spine 01/04/2010 None Full Exam - General Constitutional general appearance Overall: well nourished 12/14/2009 None Full Exam - General Constitutional general appearance Overall: well developed 12/14/2009 None Full Exam - General Constitutional general appearance Overall: in no acute distress 12/14/2009 None Full Exam - General Cardiovascular auscultation of heart Overall: regular rate 12/14/2009 None Full Exam - General Cardiovascular auscultation of heart Overall: normal heart sounds 12/14/2009 None Full Exam - General Cardiovascular auscultation of heart Overall: no murmurs 12/14/2009 None Full Exam - General Cardiovascular auscultation of heart Rate: regular rate 12/14/2009 None Full Exam - General Cardiovascular auscultation of heart Rhythm: regular rhythm 12/14/2009 None Full Exam - General Cardiovascular auscultation of heart S1: a normal exam 12/14/2009 None Full Exam - General Cardiovascular auscultation of heart S2: a normal exam 12/14/2009 None Full Exam - General Cardiovascular auscultation of heart S3 (ventricular gallop): present 12/14/2009 None Full Exam - General Cardiovascular extremities Overall: no clubbing 12/14/2009 None Full Exam - General Cardiovascular extremities Overall: No edema 12/14/2009 None Full Exam - General Cardiovascular extremities Overall: No cyanosis 12/14/2009 None Full Exam - General Respiratory auscultation Overall: breath sounds clear bilater ally 12/14/2009 None Full Exam - General Respiratory auscultation Diffuse: a normal exam 12/14/2009 None Full Exam - General Respiratory auscultation Left upper lung field: a normal exam 12/14/2009 None Full Exam - General Respiratory auscultation Left lower lung field: a normal exam 12/14/2009 None Full Exam - General Respiratory auscultation Right upper lung field: a normal exa m 12/14/2009 None Full Exam - General Respiratory auscultation Right middle lung field: a normal ex am 12/14/2009 None Full Exam - General Respiratory auscultation Right lower lung field: a normal exa m 12/14/2009 None Full Exam - General Neurologic mental status Overall: alert 0 None Full Exam - General Neurologic mental status Overall: oriented 12/14/2009 None Full Exam - General Psychiatric mood and affect Overall: normal mood and affect 12/14/2009 None Full Exam - General Musculoskeletal spine, ribs and pelvis Spine: tender @ cervical spine 12/14/2009 None Full Exam - General Musculoskeletal spine, ribs and pelvis Spine: tender @ thoracic spine 12/14/2009 None Full Exam - General Constitutional general appearance Overall: well nourished 11/23/2009 None Full Exam - General Constitutional general appearance Overall: well developed 11/23/2009 None Full Exam - General Constitutional general appearance Overall: in no acute distress 11/23/2009 None Full Exam - General Ears/Nose/Throat external ear Overall: normal appearance 11/23/2009 None Full Exam - General Ears/Nose/Throat otoscopic exam Overall: external auditory canals clear 11/23/2009 None Full Exam - General Ears/Nose/Throat otoscopic exam Overall: tympanic membranes clear 11/23/2009 None Full Exam - General Ears/Nose/Throat lips/teeth/gingiva Overall: benign lips 11/23/2009 None Full Exam - General Ears/Nose/Throat lips/teeth/gingiva Overall: normal dentition 11/23/2009 None Full Exam - General Ears/Nose/Throat lips/teeth/gingiva Overall: benign gingiva 11/23/2009 None Full Exam - General Ears/Nose/Throat oral cavity/pharynx/larynx Overall: tonsils benign 11/23/2009 None Full Exam - General Ears/Nose/Throat oral cavity/pharynx/larynx Overall: oropharyngeal mucosa clear 11/23/2009 None Full Exam - General Ears/Nose/Throat oral cavity/pharynx/larynx Overall: oral mucosa clear 11/23/2009 None Full Exam - General Ears/Nose/Throat oral cavity/pharynx/larynx Overall: mobile tongue benign 11/23/2009 None Full Exam - General Ears/Nose/Throat oral cavity/pharynx/larynx Overall: no masses 11/23/2009 None Full Exam - General Respiratory auscultation Overall: breath sounds clear bilater ally 11/23/2009 None Full Exam - General Respiratory respiratory effort/rhythm Overall: no retractions 11/23/2009 None Full Exam - General Respiratory respiratory effort/rhythm Overall: normal rate 11/23/2009 pt reports she is still e xperiencing coughing Full Exam - General Integument inspection of skin Overall: no rash, lesions 11/23/2009 None Full Exam - General Psychiatric orientation/consciousness Overall: oriented to person, place and time 11/23/2009 None Procedures Procedure Codes Date URINE CULTURE/ COLON Y COUNT CPT-4: 93568 01/14/2019 URINALYSIS NONAUTO W /O SCOPE CPT-4: 95954 01/14/2019 INITIAL PREVENTIVE EXAM CPT-4: G0402 11/21/2018 URINALYSIS NONAUTO W /O SCOPE CPT-4: 43785 11/01/2018 URINE CULTURE/ COLON Y COUNT CPT-4: 09509 11/01/2018 URINE CULTURE/ COLON Y COUNT CPT-4: 20762 06/13/2018 URINALYSIS NONAUTO W /O SCOPE CPT-4: 94372 05/31/2018 URINE CULTURE/ COLON Y COUNT CPT-4: 49117 05/31/2018 IIV4 VACCINE 3 YRS+ IM AND UP CPT-4: 37611 03/22/2018 IMMUNIZATION ADMIN CPT- 4: 56240 03/22/2018 TDAP VACCINE 7 YRS/> IM CPT-4: 44575 12/28/2017 IMMUNIZATION ADMIN CPT- 4: 00462 12/28/2017 SHINGRIX HZV VACC RE COMBINANT IM CPT-4: 12441 10/04/2017 IMMUNIZATION ADMIN CPT- 4: 83931 10/04/2017 IIV4 VACCINE 3 YRS+ IM AND UP CPT-4: 76805 03/28/2017 IMMUNIZATION ADMIN CPT- 4: 33880 03/28/2017 INFLUENZA ASSAY W/OPTIC CPT-4: 24210 09/12/2016 FLU VACCINE 3 YRS & > IM UP 64 CPT-4: 90868 04/22/2016 IMMUNIZATION ADMIN CPT- 4: 93438 04/22/2016 OCCULT BLOOD FECES CPT- 4: 55667 01/04/2016 THER/PROPH/DIAG INJ SC/IM CPT-4: 19521 07/20/2015 PROMETHAZINE HCL INJ ECTION CPT-4: J2550 07/20/2015 FLU VACCINE 3 YRS & > IM UP 64 CPT-4: 99937 03/09/2015 IMMUNIZATION ADMIN CPT- 4: 46703 03/09/2015 URINALYSIS NONAUTO W /O SCOPE CPT-4: 37877 07/10/2014 URINE CULTURE/ COLON Y COUNT CPT-4: 69862 07/10/2014 URINE CULTURE/ COLON Y COUNT CPT-4: 62863 07/14/2011 URINALYSIS NONAUTO W /O SCOPE CPT-4: 82221 07/14/2011 FLU VACCINE 3 YRS & > IM UP 64 CPT-4: 78728 06/28/2011 IMMUNIZATION ADMIN CPT- 4: 91544 06/28/2011 URINALYSIS NONAUTO W /O SCOPE CPT-4: 53076 03/23/2011 URINE CULTURE/ COLON Y COUNT CPT-4: 33854 03/23/2011 ROUTINE VENIPUNCTURE CPT-4: 81559 01/14/2011 COMPREHEN METABOLIC PANEL CPT-4: 80099 01/14/2011 ROUTINE VENIPUNCTURE CPT-4: 54819 01/05/2011 COMPLETE CBC W/AUTO DIFF WBC CPT-4: 42202 01/05/2011 RBC SED RATE AUTOMATED CPT-4: 35766 01/05/2011 COMPREHEN METABOLIC PANEL CPT-4: 06912 01/05/2011 URINALYSIS NONAUTO W /O SCOPE CPT-4: 20306 11/16/2010 URINE CULTURE/ COLON Y COUNT CPT-4: 79323 11/16/2010 DRAIN/INJECT JOINT/B URSA CPT-4: 21262 11/04/2010 TRIAMCINOLONE ACET I [place] NOS CPT-4: J3301 11/04/2010 METHYLPREDNISOLONE 8 0 MG INJ CPT-4: J1040 11/04/2010 URINALYSIS NONAUTO W /O SCOPE CPT-4: 69525 07/05/2010 URINE CULTURE/ COLON Y COUNT CPT-4: 41328 07/05/2010 URINALYSIS NONAUTO W /O SCOPE CPT-4: 77070 06/28/2010 URINE CULTURE/ COLON Y COUNT CPT-4: 61942 06/28/2010 URINALYSIS NONAUTO W /O SCOPE CPT-4: 19001 06/14/2010 URINE CULTURE/ COLON Y COUNT CPT-4: 78853 06/14/2010 URINE CULTURE/ COLON Y COUNT CPT-4: 69901 04/19/2010 OCCULT BLOOD FECES CPT- 4: 99758 04/12/2010 URINALYSIS NONAUTO W /O SCOPE CPT-4: 13842 04/08/2010 URINE CULTURE/ COLON Y COUNT CPT-4: 14666 04/08/2010 ASSAY, GLUCOSE, BLOO D QUANT CPT-4: 85676 03/09/2010 URINALYSIS NONAUTO W /O SCOPE CPT-4: 12520 03/09/2010 FLU VACCINE 3 YRS & > IM UP 64 CPT-4: 82419 03/09/2010 IMMUNIZATION ADMIN CPT- 4: 52250 03/09/2010 URINALYSIS NONAUTO W /O SCOPE CPT-4: 70678 09/29/2009 URINALYSIS NONAUTO W /O SCOPE CPT-4: 73337 08/12/2009 Vital Signs Date Vital 01/16/2019 Blood Pressure 1: 122/68 Code: 8480-6 Heart Rate 1: 76 bpm SpO2: 97% Temperature: 36.6 (C ) / 97.8 (F) 01/09/2019 Heart Rate 1: 100 bpm Respiratory Rate: 20 bpm SpO2: 98% Temperature: 36.8 (C ) / 98.2 (F) Weight: 162 lbs 11/21/2018 Blood Pressure 1: 130/70 Code: 8480-6 BMI: 29.6 Code: 80147-2 Heart Rate 1: 76 bpm Height: 5'2" Respiratory Rate: 20 bpm SpO2: 96% Temperature: 36.7 (C ) / 98.0 (F) Weight: 162 lbs 10/04/2018 Blood Pressure 1: 124/68 Code: 8480-6 Heart Rate 1: 72 bpm Respiratory Rate: 20 bpm SpO2: 96% Temperature: 36.6 (C ) / 97.8 (F) Weight: 168 lbs 08/06/2018 Blood Pressure 1: 128/82 Code: 8480-6 Heart Rate 1: 88 bpm Respiratory Rate: 20 bpm Temperature: 36.9 (C) / 98.4 (F) Weight: 164 lbs 06/21/2018 Blood Pressure 1: 126/62 Code: 8480-6 BMI: 29.6 Code: 59059-3 Heart Rate 1: 88 bpm Height: 5'3" Respiratory Rate: 20 bpm Temperature: 36.8 (C ) / 98.3 (F) Weight: 167 lbs 05/31/2018 Blood Pressure 1: 140/80 Code: 8480-6 Heart Rate 1: 74 bpm Respiratory Rate: 16 bpm SpO2: 97% Temperature: 36.3 (C ) / 97.3 (F) Weight: 165 lbs 02/06/2018 Blood Pressure 1: 124/78 Code: 8480-6 BMI: 29.8 Code: 39432-1 Heart Rate 1: 84 bpm Height: 5'3" Respiratory Rate: 20 bpm SpO2: 97% Temperature: 36.6 (C ) / 97.8 (F) Weight: 168 lbs 12/18/2017 Blood Pressure 1: 116/78 Code: 8480-6 BMI: 29.6 Code: 70649-7 Heart Rate 1: 88 bpm Height: 5'3" Respiratory Rate: 20 bpm Temperature: 36.6 (C ) / 97.9 (F) Weight: 167 lbs 12/11/2017 Blood Pressure 1: 122/76 Code: 8480-6 Heart Rate 1: 78 bpm 09/11/2017 Blood Pressure 1: 126/82 Code: 8480-6 BMI: 29.1 Code: 03991-0 Heart Rate 1: 68 bpm Height: 5'3" Respiratory Rate: 20 bpm SpO2: 96% Temperature: 36.6 (C ) / 97.9 (F) Weight: 164 lbs 03/28/2017 Blood Pressure 1: 114/64 Code: 8480-6 BMI: 27.8 Code: 21479-7 Heart Rate 1: 76 bpm Height: 5'3" Respiratory Rate: 20 bpm SpO2: 98% Temperature: 36.4 (C ) / 97.6 (F) Weight: 157 lbs 09/12/2016 Blood Pressure 1: 126/70 Code: 8480-6 BMI: 29.9 Code: 87238-4 Heart Rate 1: 92 bpm Height: 5'3" Respiratory Rate: 20 bpm SpO2: 97% Temperature: 37.0 (C ) / 98.6 (F) Weight: 168 lbs 9 oz 07/28/2016 Blood Pressure 1: 128/74 Code: 8480-6 Heart Rate 1: 92 bpm Respiratory Rate: 24 bpm SpO2: 96% Temperature: 36.4 (C ) / 97.6 (F) Weight: 168 lbs 04/26/2016 Blood Pressure 1: 11674 Code: 8480-6 BMI: 29.9 Code: 74836-5 Heart Rate 1: 92 bpm Height: 5'3" Respiratory Rate: 20 bpm Temperature: 36.9 (C ) / 98.4 (F) Weight: 169 lbs 12/09/2015 Blood Pressure 1: 116/72 Code: 8480-6 BMI: 31.7 Code: 34924-9 Heart Rate 1: 80 bpm Height: 5'3" Respiratory Rate: 20 bpm Temperature: 36.6 (C ) / 97.9 (F) Weight: 179 lbs 09/10/2015 Blood Pressure 1: 122/78 Code: 8480-6 BMI: 32.2 Code: 80527-8 Heart Rate 1: 88 bpm Height: 5'3" Respiratory Rate: 20 bpm Temperature: 37.3 (C ) / 99.1 (F) Weight: 182 lbs 04/23/2015 Blood Pressure 1: 126/70 Code: 8480-6 BMI: 31.2 Code: 17528-1 Heart Rate 1: 92 bpm Height: 5'3" Respiratory Rate: 20 bpm Temperature: 36.8 (C ) / 98.2 (F) Weight: 176 lbs 03/24/2015 Blood Pressure 1: 126/78 Code: 8480-6 BMI: 31.2 Code: 69298-3 Heart Rate 1: 80 bpm Height: 5'3" Respiratory Rate: 22 bpm Temperature: 36.1 (C ) / 96.9 (F) Weight: 176 lbs 03/05/2015 Blood Pressure 1: 132/80 Code: 8480-6 BMI: 31.5 Code: 21447-2 Heart Rate 1: 92 bpm Height: 5'2" Respiratory Rate: 20 bpm Temperature: 36.4 (C ) / 97.6 (F) Weight: 175 lbs 02/19/2015 Blood Pressure 1: 134/80 Code: 8480-6 BMI: 31.5 Code: 55583-1 Heart Rate 1: 88 bpm Height: 5'2" Respiratory Rate: 20 bpm Temperature: 36.7 (C ) / 98.0 (F) Weight: 175 lbs 12/25/2014 Blood Pressure 1: 122/80 Code: 8480-6 BMI: 31.0 Code: 00179-7 Heart Rate 1: 88 bpm Height: 5'2" Respiratory Rate: 20 bpm Temperature: 36.6 (C ) / 97.8 (F) Weight: 172 lbs 11/26/2014 Blood Pressure 1: 116/68 Code: 8480-6 BMI: 30.2 Code: 17830-8 Heart Rate 1: 76 bpm Height: 5'2" Respiratory Rate: 20 bpm Temperature: 36.5 (C ) / 97.7 (F) Weight: 168 lbs 11/04/2014 Blood Pressure 1: 116/64 Code: 8480-6 BMI: 30.8 Code: 86381-0 Heart Rate 1: 92 bpm Height: 5'2" Respiratory Rate: 20 bpm Temperature: 36.7 (C ) / 98.1 (F) Weight: 171 lbs 09/01/2014 Blood Pressure 1: 130/82 Code: 8480-6 BMI: 30.6 Code: 12284-8 Heart Rate 1: 92 bpm Height: 5'2" Respiratory Rate: 20 bpm Temperature: 36.9 (C ) / 98.4 (F) Weight: 170 lbs 06/02/2014 Blood Pressure 1: 126/80 Code: 8480-6 BMI: 30.2 Code: 97066-6 Heart Rate 1: 88 bpm Height: 5'2" Respiratory Rate: 20 bpm Temperature: 36.7 (C ) / 98.1 (F) Weight: 168 lbs 05/26/2014 Blood Pressure 1: 132/78 Code: 8480-6 Heart Rate 1: 74 bpm 04/08/2014 Blood Pressure 1: 156/94 Code: 8480-6 BMI: 30.2 Code: 00000-1 Heart Rate 1: 96 bpm Height: 5'2" Respiratory Rate: 20 bpm Temperature: 37.1 (C ) / 98.7 (F) Weight: 168 lbs 03/05/2014 Blood Pressure 1: 144/86 Code: 8480-6 BMI: 29.9 Code: 16334-5 Heart Rate 1: 100 bpm Height: 5'2" Respiratory Rate: 20 bpm Temperature: 36.7 (C ) / 98.1 (F) Weight: 166 lbs 07/29/2013 Blood Pressure 1: 124/80 Code: 8480-6 Heart Rate 1: 92 bpm Respiratory Rate: 20 bpm Temperature: 36.2 (C) / 97.2 (F) Weight: 167 lbs 03/20/2013 Blood Pressure 1: 116/84 Code: 8480-6 BMI: 30.8 Code: 39349-8 Heart Rate 1: 96 bpm Height: 5'3" Respiratory Rate: 20 bpm Temperature: 36.6 (C ) / 97.8 (F) Weight: 174 lbs 02/12/2013 Blood Pressure 1: 122/80 Code: 8480-6 BMI: 30.5 Code: 53213-3 Heart Rate 1: 112 bpm Height: 5'3" Respiratory Rate: 20 bpm Temperature: 36.9 (C ) / 98.4 (F) Weight: 172 lbs 11/05/2012 BMI: 31.2 Code: 25603-6 Height: 5'3" Weight: 176 lbs 10/04/2012 Heart Rate 1: 84 bpm Height: 5'3" Respiratory Rate: 20 bpm Temperature: 36.8 (C ) / 98.3 (F) Weight: 09/24/2012 Blood Pressure 1: 122/88 Code: 8480-6 BMI: 30.8 Code: 54890-6 Heart Rate 1: 80 bpm Height: 5'3" Respiratory Rate: 20 bpm Temperature: 36.8 (C ) / 98.2 (F) Weight: 174 lbs 05/10/2012 Blood Pressure 1: 124/68 Code: 8480-6 BMI: 30.1 Code: 88001-1 Heart Rate 1: 64 bpm Height: 5'3" Temperature: 36.6 (C ) / 97.8 (F) Weight: 170 lbs 03/07/2012 Blood Pressure 1: 132/78 Code: 8480-6 BMI: 29.2 Code: 52979-1 Heart Rate 1: 92 bpm Height: 5'3" Respiratory Rate: 20 bpm Temperature: 36.7 (C ) / 98.1 (F) Weight: 165 lbs 02/01/2012 Blood Pressure 1: 116/78 Code: 8480-6 BMI: 29.1 Code: 12617-3 Heart Rate 1: 84 bpm Height: 5'3" Respiratory Rate: 20 bpm Temperature: 36.8 (C ) / 98.2 (F) Weight: 164 lbs 12/20/2011 Blood Pressure 1: 128/80 Code: 8480-6 BMI: 29.1 Code: 23044-4 Heart Rate 1: 88 bpm Height: 5'3" Respiratory Rate: 20 bpm Temperature: 36.4 (C ) / 97.6 (F) Weight: 164 lbs 11/22/2011 Blood Pressure 1: 104/60 Code: 8480-6 BMI: 28.5 Code: 30694-9 Heart Rate 1: 78 bpm Height: 5'3" Temperature: 36.6 (C ) / 97.9 (F) Weight: 161 lbs 07/11/2011 Blood Pressure 1: 118/72 Code: 8480-6 BMI: 30.6 Code: 36275-0 Heart Rate 1: 92 bpm Height: 5'3" Respiratory Rate: 20 bpm Temperature: 36.8 (C ) / 98.2 (F) Weight: 173 lbs 07/06/2011 Blood Pressure 1: 126/80 Code: 8480-6 BMI: 31.0 Code: 65517-3 Heart Rate 1: 88 bpm Height: 5'3" Respiratory Rate: 20 bpm Temperature: 36.7 (C ) / 98.1 (F) Weight: 175 lbs 05/26/2011 Blood Pressure 1: 100/78 Code: 8480-6 BMI: 31.0 Code: 29004-9 Heart Rate 1: 74 bpm Height: 5'3" Temperature: 36.4 (C ) / 97.6 (F) Weight: 175 lbs 05/16/2011 Blood Pressure 1: 116/80 Code: 8480-6 BMI: 31.0 Code: 58877-3 Heart Rate 1: 88 bpm Height: 5'3" Respiratory Rate: 20 bpm Temperature: 36.8 (C ) / 98.2 (F) Weight: 175 lbs 05/05/2011 Blood Pressure 1: 126/80 Code: 8480-6 BMI: 30.6 Code: 56322-5 Heart Rate 1: 96 bpm Height: 5'3" Respiratory Rate: 20 bpm Temperature: 36.4 (C ) / 97.6 (F) Weight: 173 lbs 04/05/2011 Blood Pressure 1: 144/90 Code: 8480-6 BMI: 30.1 Code: 37170-2 Heart Rate 1: 92 bpm Height: 5'3" Respiratory Rate: 20 bpm Temperature: 36.6 (C ) / 97.8 (F) Weight: 170 lbs 03/02/2011 Blood Pressure 1: 136/94 Code: 8480-6 Heart Rate 1: 92 bpm Temperature: 36.6 (C) / 97.8 (F) Weight: 171 lbs 01/05/2011 Blood Pressure 1: 132/86 Code: 8480-6 BMI: 30.6 Code: 32863-2 Heart Rate 1: 98 bpm Height: 5'3" Temperature: 36.3 (C ) / 97.4 (F) Weight: 173 lbs 11/16/2010 [...] 1: 122/68 Code: 8480-6 BMI: 29.8 Code: 65633-4 Height: 5'3" Temperature: 36.3 (C ) / 97.4 (F) Weight: 168 lbs 06/28/2010 Blood Pressure 1: 122/68 Code: 8480-6 Heart Rate 1: 76 bpm 06/14/2010 Blood Pressure 1: 120/80 Code: 8480-6 Heart Rate 1: 96 bpm 06/07/2010 Blood Pressure [...] 01/19/2010 Blood Pressure 1: 132/80 Code: 8480-6 Heart Rate 1: 88 bpm 01/04/2010 Blood Pressure 1: 116/80 Code: 8480-6 Heart Rate 1: 104 bpm Temperature: 36.8 (C) / 98.2 (F) Weight: 170 lbs 12/21/2009 Blood Pressure 1: 128/90 Code: 8480-6 Heart Rate 1: 92 bpm 12/14/2009 Blood Pressure 1: 126/90 Code: 8480-6 Heart Rate 1: 76 bpm Temperature: 36.6 (C) / 97.8 (F) Weight: 170 lbs 11/23/2009 Blood Pressure 1: 142/90 Code: 8480-6 BMI: 30.5 Code: 90948-3 Heart Rate 1: 96 bpm Height: 5'3" Temperature: 36.1 (C ) / 97.0 (F) Weight: 172 lbs Functional Status No Functional Status data History of Present Illness Symptom Name Status Resu lt Effective Date Notes Location in the left m iddle back area 01/16/2019 None Location in the right middle back area 01/16/2019 None Quality discomfort. 01/16/2019 Patient has taken tylenol arthritis and skelaxin today with minimal relief Quality acute 01/16/2019 None Onset and Resolution s udden in onset this morning 01/16/2019 None Quality aching 01/16/2019 None Location in the midlin e of in the lower back area 01/14/2019 None Quality discomfort 01/14/2019 None Location in the LLQ 01/09/2019 None Quality dull 01/09/2019 Patient has concerns of it being related to hernia Quality tenderness 01/09/2019 None Quality acute 01/09/2019 None Quality intermittent 01/09/2019 None Quality acute 01/09/2019 None Temperature 100.6 degr ees. 01/09/2019 Patient states she only r an this 4 days ago Lifestyle no history o f physical abuse 11/21/2018 None Lifestyle no history o f sexual abuse 11/21/2018 None Lifestyle no history o f verbal abuse 11/21/2018 None Lifestyle regular seat belt use 11/21/2018 None Lifestyle satisfactory work/long term experience 11/21/2018 None Lifestyle normal sleep patterns 11/21/2018 None Lifestyle normal amoun t of stress 11/21/2018 None Lifestyle satisfactory marriage/partner relationship 11/21/2018 None Sexual Activity is sex ually active 11/21/2018 None Sexual Activity is mon ogamous 11/21/2018 None Nutrition and Exercise overweight 11/21/2018 None Nutrition and Exercise balanced nutrition 11/21/2018 None Nutrition and Exercise minimal exercise 11/21/2018 None Health Guidance fall r isk 11/21/2018 None Health Guidance self-b reast exam 11/21/2018 None Health Guidance regula r mammogram 11/21/2018 None Health Guidance HIV pr ecautions 11/21/2018 None Health Guidance STD pr ecautions 11/21/2018 None Health Guidance tobacc o, drugs and alcohol avoidance 11/21/2018 None Health Guidance nutrit ion counseling 11/21/2018 None Health Guidance regula r exercise 11/21/2018 None Health Guidance safety belt use 11/21/2018 None Health Guidance depres jaclyn symptoms 11/21/2018 None Health Guidance fecal occult blood testing 11/21/2018 None Health Guidance fastin g glucose every 3 years 11/21/2018 None Health Guidance colono scopy/sigmoidoscopy 11/21/2018 has been 6 years Health Guidance hormon e replacement therapy 11/21/2018 None 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 10/04/2018 Patient would like to increase back to 5 0mcg dose Location diffusely 10/04/2018 None Quality discomfort 10/04/2018 None Quality intermittent 10/04/2018 None Location diffusely 10/04/2018 None Quality chronic. 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 08/06/2018 Current A1c is 5.8 Quality dull 06/21/2018 None Onset and Resolution o ngoing 06/21/2018 None Location in the midlin e of in the middle back area 06/21/2018 None Quality discomfort 06/21/2018 None Location-Major on the left lower leg 06/21/2018 None Color pink 06/21/2018 None Quality pruritic 06/21/2018 None Onset and Resolution o ngoing 06/21/2018 Patient has tried both an ti-fungal and antibiotic ointment Location on the left leg 06/21/2018 None Location on the right leg 06/21/2018 None Quality aching 06/21/2018 None Onset and Resolution D enies ongoing 06/21/2018 None Quality intermittent 06/21/2018 None Triggers rest 06/21/2018 comes on at night when lies down Onset of Symptom 1 wee ks ago 05/31/2018 None Onset of Symptom 1 wee ks ago 05/31/2018 None hyperglycemia Quality gl ucose intolerance 02/06/[address] able 02/06/2018 Current A1c is 5.5 hypothyroid 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 02/06/2018 None hypertension Quality chr onic 02/06/2018 None chest pain/pressure Location on the left side of on the chest 02/06/2018 None chest pain/pressure Quality dull 02/06/2018 None chest pain/pressure Quality aching 02/06/2018 None chest pain/pressure Quality intermittent 02/06/2018 Patient does have appoint ment with Dr Chase on 02-22-18 laceration of the finger Location on the index finger 12/28/2017 None laceration of the finger Mechanism o f injury blunt trauma 12/28/2017 None laceration of the finger Onset of Symptom 4- 6 hours ago 12/28/2017 None tinnitus Location in bot h ears 12/18/2017 None tinnitus Quality ringing 12/18/2017 None tinnitus Onset and Resolution ongoing 12/18/2017 None tinnitus Onset of Symptom 7-8 months ago 12/18/2017 None hypertension Quality chr onic 09/11/2017 None hypertension Quality maninder lizzette hypertension 09/11/2017 None hypertension Quality sta ble 09/11/2017 None hypothyroid 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 09/11/2017 None hypothyroid Quality stab le 09/11/2017 None knee pain Location on th e right 09/11/2017 None hypertension Onset of Symptom during adulthood 09/11/2017 None knee pain Severity moder ate 09/11/2017 None knee pain Significant Medical Conditions degenerative joint disease 09/11/2017 None lymph node enlargement/mass Location Bilateral Anterior Cervical Chain 03/28/2017 None lymph node enlargement/mass Quality acute 03/28/2017 None lymph node enlargement/mass Quality tender 03/28/2017 None lymph node enlargement/mass Quality worsening 03/28/2017 None lymph node enlargement/mass Onset an d Resolution ongoing 03/28/2017 None lymph node enlargement/mass Onset of Symptom 2-3 weeks ago 03/28/2017 None rash Quality acute 03/28/2017 None rash Quality dry 03/28/2017 None rash Quality erythematous 03/28/2017 None knee pain Location on th e right 03/28/2017 None knee pain Location super ior to the patella 03/28/2017 None knee pain Quality tender ness 03/28/2017 None knee pain Quality catchi ng 03/28/2017 None knee pain Quality acute 03/28/2017 None knee pain Quality popping 03/28/2017 None knee pain Onset and Resolution gradual in onset 03/28/2017 None knee pain Frequency of Episodes unchanged 03/28/2017 None dysuria Quality acute 03/28/2017 None dysuria Quality aching 03/28/2017 None dysuria Onset and Resolution ongoing 03/28/2017 None sinus pain Location diff usely 09/12/2016 None sinus pain Quality burni ng 09/12/2016 None headache Location diffus litzy 09/12/2016 None headache Quality dull 09/12/2016 None headache Quality constant 09/12/2016 None headache Onset of Symptom 1 days ago 09/12/2016 None sinus pain Quality fulln ess 09/12/2016 None sinus pain Onset and Resolution sudden in onset 09/12/2016 None sinus pain Onset of Symptom 1 days ago 09/12/2016 None fever Quality intermitte nt 09/12/2016 None fever Temperature 101 de grees 09/12/2016 None sinus congestion Location on both sides 09/12/2016 None sinus congestion Quality acute 09/12/2016 None sinus congestion Quality pressure 09/12/2016 None sinus pain Quality acute 09/12/2016 None rash Quality acute 07/28/2016 None rash Location-Extremities Dorsal part of hands 07/28/2016 None rash Color erythematous 07/28/2016 None rash Quality pruritic 07/28/2016 None rash Quality uncomfortab le 07/28/2016 None rash Onset of Symptom 1 month ago 07/28/2016 None knee pain Location on th e right 07/28/2016 None knee pain Location media l to the patella 07/28/2016 None knee pain Quality tender ness 07/28/2016 None knee pain Quality acute 07/28/2016 None knee pain Quality popping 07/28/2016 None hernia Location umbilical 04/26/2016 None hernia Onset and Resolution ongoing 04/26/2016 None hernia Quality non-reduc ible 04/26/2016 None hernia Quality tenderness 04/26/2016 None rash Location-Major on t he right cheek 04/26/2016 None rash Quality chronic 04/26/2016 None rash Color brown 04/26/2016 None rash Onset and Resolution ongoing 04/26/2016 None gastroesophageal reflux Quality chronic 04/26/2016 None gastroesophageal reflux Quality stable. 04/26/2016 [facility] recommended stopping pantoprazole due to side effect of dementia abdominal pain Quality i ntermittent 12/09/2015 Discuss recent abdominal ultrasound rash Location-Extremities on both legs 12/09/2015 None rash Quality pruritic 12/09/2015 None rash Color pink 12/09/2015 None rash Onset of Symptom wh ile wearing certain clothes 12/09/2015 None leg pain/sciatica Location right paralumbar 09/10/2015 None leg pain/sciatica Quality pinching 09/10/2015 None leg pain/sciatica Onset and Resolution ongoing 09/10/2015 None leg pain/sciatica Quality chronic 09/10/2015 None pain, limb Location on t he right leg 09/10/2015 None pain, limb Quality cramp ing 09/10/2015 None pain, limb Exacerbating Factors standing 09/10/2015 None leg pain/sciatica Quality constant. 09/10/2015 Had injection Jul 09 chest pain/pressure Location on the left side of on the chest 09/10/2015 None chest pain/pressure Quality sharp 09/10/2015 None chest pain/pressure Quality intermittent 09/10/2015 None leg pain/sciatica Severity severe 09/10/2015 None nausea Quality constant 07/20/2015 None elbow pain Location on t he left 04/23/2015 None elbow pain Onset and Resolution sudden in onset. 04/23/2015 Fall at home on 04/21/15. She slipped on a towel lying on the floor elbow pain Quality aching 04/23/2015 None rib pain Exacerbating Factors movement 04/23/2015 None rib pain Quality dull 04/23/2015 None rib pain Location Left 04/23/2015 None abdominal pain Location in the epigastric area 03/24/2015 None abdominal pain Location in the RUQ 03/24/2015 None abdominal pain Quality a cute 03/24/2015 None abdominal pain Quality a flores 03/24/2015 None abdominal pain Quality d ull 03/24/2015 None abdominal pain Quality i ntermittent 03/24/2015 None abdominal pain Onset and Resolution ongoing 03/24/2015 None abdominal pain Location in the LUQ 03/05/2015 None abdominal pain Quality i ntermittent 03/05/2015 None abdominal pain Quality s harp 03/05/2015 None abdominal pain Quality a flores 03/05/2015 None hypothyroid Quality stab le 02/19/2015 Discuss decreasing dose back pain Location low b ack/SI joint 02/19/2015 None back pain Onset and Resolution ongoing 02/19/2015 None paresthesia Location on the left hand 02/19/2015 None paresthesia Quality numb ness 02/19/2015 None paresthesia Quality ting ling 02/19/2015 None abdominal pain Location in the LUQ 02/19/2015 None abdominal pain Quality a flores 02/19/2015 None abdominal pain Quality i ntermittent 02/19/2015 None abdominal pain Onset and Resolution ongoing 02/19/2015 None hypothyroid Onset and Resolution ongoing 02/19/2015 None paresthesia Quality inte rmittent 02/19/2015 None abdominal pain Triggers no known associated factors 02/19/2015 None paresthesia Onset and Resolution ongoing 02/19/2015 None paresthesia Triggers rest 02/19/2015 sleeping paresthesia Triggers act ivity 02/19/2015 driving paresthesia Exacerbating Factors activity 02/19/2015 driving back pain Quality chronic 02/19/2015 None back pain Quality consta nt 02/19/2015 None back pain Alleviating Factors stretching 02/19/2015 admits has not been doing her stretches routinely back pain Triggers activ ity 02/19/2015 walking but has been bett er since put orthotics back in shoes diaphoresis Onset and Resolution ongoing 12/25/2014 None diaphoresis Onset of Symptom few weeks ago 12/25/2014 None abdominal pain Location in the LUQ 12/25/2014 None abdominal pain Quality i mproving 12/25/2014 Taking the protonix BID diaphoresis Quality inte rmittent 12/25/2014 None back pain Location sacra l spine 11/26/2014 None back pain Quality improv ing 11/26/2014 Injection helped some back pain Quality pinchi ng 11/26/2014 None ecchymosis Location on t he right leg 11/26/2014 None ecchymosis Onset and Resolution gradual in onset 11/26/2014 Had pipe roll onto leg abdominal pain Location in the RUQ 11/26/2014 None abdominal pain Onset and Resolution resolved 11/26/2014 None hypertension Quality sta ble 11/26/2014 Currently taking Toprol X L 25mg daily fatigue Quality chronic 11/04/2014 None fatigue Onset and Resolution ongoing 11/04/2014 None chest tightness Location on the left 11/04/2014 None chest tightness Quality shooting 11/04/2014 None chest tightness Quality intermittent 11/04/2014 None diarrhea Quality loose 11/04/2014 None diarrhea Onset and Resolution ongoing 11/04/2014 Having up to 10 stools pe r day. Taking probiotics 2 daily diarrhea Onset of Symptom 1 weeks ago 11/04/2014 None skin lesion Location on the chest 11/04/2014 None skin lesion Location in the right armpit 11/04/2014 None skin lesion Onset and Resolution ongoing 11/04/2014 None hoarseness Quality raspy 11/04/2014 None hoarseness Onset and Resolution ongoing 11/04/2014 None headache Quality sharp 09/01/2014 None headache Quality intermi ttent 09/01/2014 Episodes would only last a few seconds headache Location on the right side 09/01/2014 None pain, limb Location on t he left leg 09/01/2014 None pain, limb Quality cramp ing 09/01/2014 None pain, limb Quality inter mittent 09/01/2014 Patients thinks may be re lated to benadryl back pain Location low b ack 09/01/2014 None back pain Quality aching 09/01/2014 None back pain Quality chronic 09/01/2014 Still going to PT dysuria Quality burning 07/10/2014 None dysuria Quality intermit tent 07/10/2014 None menopausal symptoms Quality chronic vaginitis 06/02/2014 None menopausal symptoms Onset and Resolution ongoing 06/02/2014 Having problems with estring vaginal sinusitis Location diffu sely 06/02/2014 None sinusitis Quality fullne ss 06/02/2014 None sinusitis Quality pressu re 06/02/2014 None sinusitis Quality purule nt 06/02/2014 None sinusitis Onset and Resolution ongoing 06/02/2014 Using flonase nose spray and saline mist sinusitis Quality purule nt 04/08/2014 None sinusitis Quality pressu re 04/08/2014 None sinusitis Quality pain 04/08/2014 None sinusitis Quality fullne ss 04/08/2014 None sinusitis Quality green 04/08/2014 None sinusitis Onset and Resolution ongoing 04/08/2014 None sinusitis Onset of Symptom 3 days ago 04/08/2014 None cough Quality productive 04/08/2014 None back pain Location diffu sely 04/08/2014 None back pain Onset and Resolution ongoing 04/08/2014 Still seeing chiropractor back pain Quality dull 04/08/2014 None back pain Quality aching 04/08/2014 None back pain Quality popping 04/08/2014 None hypertension Onset and Resolution ongoing 04/08/[address] Delaney's 1 60/100 and 150/100 sinusitis Location diffu sely 04/08/2014 None chest congestion Quality acute 04/08/2014 None back pain Location diffu sely 03/05/2014 None back pain Onset and Resolution ongoing 03/05/2014 Helped moved mother a lot during the summer back pain Quality aching 03/05/2014 None back pain Quality popping 03/05/2014 None cough Quality dry 03/05/2014 None cough Quality deep 03/05/2014 None sinusitis Location diffu sely 07/29/2013 None sinusitis Quality acute 07/29/2013 None sinusitis Quality pain 07/29/2013 None sinusitis Quality pressu re 07/29/2013 None sinusitis Quality fullne ss 07/29/2013 None sinusitis Quality thick 07/29/2013 None sinusitis Quality yellow 07/29/2013 None sinusitis Onset of Symptom 2 weeks ago 07/29/2013 None cough Location in the th roat 07/29/2013 None cough Quality acute 07/29/2013 None cough Quality productive 07/29/2013 Yellow sputum cough Onset of Symptom 1 week ago 07/29/2013 None chest congestion Quality acute 07/29/2013 None chest congestion Quality thick secretions 07/29/2013 None chest congestion Quality painful 07/29/2013 None chest congestion Onset of Symptom weeks ago 07/29/2013 None otalgia Location on both sides 07/29/2013 None otalgia Quality acute 07/29/2013 None otalgia Quality intermit tent 07/29/2013 None otalgia Quality pressure 07/29/2013 None otalgia Onset of Symptom 1 week ago 07/29/2013 None cough Onset and Resolution ongoing 07/29/2013 None abdominal pain Location in the LLQ 03/20/2013 Thinks she is having a di verticulitis flare up foot pain Location on th e right 03/20/2013 None foot pain Onset and Resolution ongoing 03/20/2013 Doing PT hip pain Location on the right 03/20/2013 None heel pain Location on th e right 02/12/2013 None heel pain Quality worse in morning and after sitting 02/12/2013 None heel pain Onset of Symptom 2 weeks ago 02/12/2013 Diagnosed in past with pl marcello facitis sinus congestion Location on the left 02/12/2013 None sinus congestion Quality pain 02/12/2013 None sinus congestion Quality pressure 02/12/2013 Has blown out yellow phle gm sinus congestion Onset of Symptom 2 weeks ago 02/12/2013 Using mucinex diaphoresis Quality wors e in mornings 02/12/2013 None heel pain Timing of Episodes after sleeping 02/12/2013 None heel pain Timing of Episodes after sitting 02/12/2013 None heel pain Timing of Episodes after rest 02/12/2013 None sores Location-Extremities on the left (middle) finger 11/05/2012 None sores Quality new 11/05/2012 None sores Color pink 11/05/2012 None sores Onset and Resolution sudden in onset 11/05/2012 None sores Onset of Symptom 1 days ago 11/05/2012 None leg pain/sciatica Quality sharp pain 11/05/2012 None leg pain/sciatica Quality constant 11/05/2012 None leg pain/sciatica Onset and Resolution sudden in onset 11/05/2012 None leg pain/sciatica Onset of Symptom 1 weeks ago 11/05/2012 None leg pain/sciatica Limitation on Activities restricts weight bearing activity 11/05/2012 None leg pain/sciatica Limitation on Activities moderately limits activities 11/05/2012 None lower leg pain Location on the right 11/05/2012 None leg pain/sciatica Radiating the right lateral thigh 11/05/2012 None leg pain/sciatica Radiating the right anterior thigh 11/05/2012 None leg pain/sciatica Radiating the right lateral calf 11/05/2012 None leg pain/sciatica Radiating the right medial calf 11/05/2012 None leg pain/sciatica Radiating the right lateral foot 11/05/2012 None leg pain/sciatica Location right leg sciatica 11/05/2012 None lower leg pain Quality d ull pain 11/05/2012 None lower leg pain Quality c onstant 11/05/2012 None back pain Location thora cic spine 10/04/2012 None back pain Location Cervi tripp spine 10/04/2012 None arm pain Location right arm 10/04/2012 None arm pain Onset and Resolution ongoing 10/04/2012 Has seen chiropractor starla dailey very little relief, still using skelaxin/biofreeze/vimovo back pain Onset and Resolution ongoing 10/04/2012 has seen chiropracter kiko stephens arm pain Radiating Left Shoulder 10/04/2012 None arm pain Radiating left trapezius 10/04/2012 None ecchymosis Location on b oth hands 09/24/2012 None ecchymosis Quality inter mittent 09/24/2012 Thinks tiny blood vessels are popping, wonders if related to medications arm pain Location right arm 09/24/2012 None arm pain Quality aching 09/24/2012 None arm pain Onset of Symptom 4-5 days ago 09/24/2012 None fatigue Quality chronic 09/24/2012 None fatigue Quality constant 09/24/2012 None fatigue Onset and Resolution ongoing 09/24/2012 None arm pain Quality numbness 09/24/2012 improving neck pain Quality acute 09/24/2012 None arm pain Location right arm 05/10/2012 None arm pain Radiating to th e elbow 05/10/2012 None arm pain Quality sharp p ain 05/10/2012 None arm pain Quality constant 05/10/2012 None arm pain Quality numbness 05/10/2012 None arm pain Quality tingling 05/10/2012 None arm pain Onset and Resolution ongoing 05/10/2012 None arm pain Onset of Symptom 2 weeks ago 05/10/2012 None arm pain Limitation on Activities moderately limits activities 05/10/2012 None elbow pain Location on t he right 05/10/2012 None elbow pain Radiating savanna jaye 05/10/2012 None elbow pain Radiating rad ial 05/10/2012 None elbow pain Radiating for arm 05/10/2012 None elbow pain Quality dull pain 05/10/2012 None elbow pain Quality numbn ess 05/10/2012 None elbow pain Quality tingl ing 05/10/2012 None elbow pain Quality const ant 05/10/2012 None elbow pain Onset and Resolution sudden in onset 05/10/2012 None elbow pain Onset of Symptom 2 weeks ago 05/10/2012 None elbow pain Frequency of Episodes increasing 05/10/2012 None constipation Quality int ermittent 05/10/2012 None constipation Quality hard 05/10/2012 None constipation Quality bryant ly stools 05/10/2012 None constipation Onset and Resolution ongoing 05/10/2012 None constipation Onset of Symptom 1 months ago 05/10/2012 None fatigue Onset and Resolution ongoing 03/07/2012 None foot pain Location on guero th feet 03/07/2012 None wrist pain Location on t he right 03/07/2012 None dysphagia Quality diffic ulty with thin liquids 03/07/2012 None wrist pain Quality burni ng sensation 03/07/2012 None wrist stiffness Location on the right 03/07/2012 None sinusitis Location diffu sely 03/07/2012 None fatigue Quality improving 02/01/2012 None hypothyroid Quality impr oving 02/01/2012 None joint complaint Location on both hands 12/20/2011 None joint complaint Quality sharp pain 12/20/2011 None knee pain Location on th e left 12/20/2011 None fatigue Onset and Resolution ongoing 12/20/2011 None joint complaint Quality intermittent 12/20/2011 None arthropod bite Location on the left leg 11/22/2011 inner thigh arthropod bite Quality c onstant 11/22/2011 None arthropod bite Quality s wollen 11/22/2011 None arthropod bite Quality w orsening 11/22/2011 None arthropod bite Onset and Resolution ongoing 11/22/2011 None arthropod bite Onset of Symptom 4 days ago 11/22/2011 None abdominal pain Location in the suprapubic area 07/11/2011 None nausea Quality intermitt ent 07/11/2011 None nausea Quality acute 07/11/2011 None abdominal pain Location in the LLQ 07/11/2011 None abdominal pain Location in the RLQ 07/11/2011 None hematochezia Quality valentin ght red blood per rectum 07/06/2011 None hematochezia Quality int ermittent 07/06/2011 None otalgia Location on the left 07/06/2011 None otalgia Quality pressure 07/06/2011 None hematochezia Quality blo od-streaked stool 07/06/2011 generally when constipate d skin lesion Quality acute 07/06/2011 bruising to spider vein headache Quality intermi ttent 07/06/2011 None wrist pain Location on t he left 05/26/2011 None wrist pain Location on t he right 05/26/2011 None wrist pain Quality numbn ess 05/26/2011 None wrist pain Quality dull pain 05/26/2011 None wrist pain Onset and Resolution ongoing 05/26/2011 None back pain Onset and Resolution ongoing 05/26/2011 None back pain Quality consta nt 05/26/2011 None back pain Quality pinchi ng 05/26/2011 None back pain Quality discom fort 05/26/2011 None back pain Quality aching 05/26/2011 None back pain Onset of Symptom 1 months ago 05/26/2011 None back pain Location thora cic spine 05/26/2011 None back pain Location lumba r-sacral spine 05/26/2011 None hip pain Location to bot h hips 05/16/2011 left hip has been worse back pain Onset and Resolution ongoing 05/16/2011 None back pain Onset and Resolution gradual in onset 05/16/2011 None knee pain Location both knees 05/05/2011 None hip pain Location on the right--landed on this side after fall 05/05/2011 None back pain Location lumba r spine 05/05/2011 on right side abdominal pain Location in the LLQ 04/05/2011 None abdominal pain Quality i mproved some 04/05/2011 None diarrhea Quality loose 04/05/2011 None follow up Reason on stre ss test 03/02/2011 None chest pain/pressure Location in the epigastric area 03/02/2011 None chest pain/pressure Location in the substernal area 03/02/2011 None arrhythmia Quality inter mittent 03/02/2011 None shortness of breath Quality acute 01/05/2011 None shortness of breath Quality chest tightness 01/05/2011 None shortness of breath Onset of Symptom 2 days ago 01/05/2011 None varicose veins Location on the left lower leg 01/05/2011 None varicose veins Onset of Symptom 2-3 weeks ago 01/05/2011 None varicose veins Quality a flores/cramping 01/05/2011 None myalgias Quality acute 11/16/2010 knot to leg past couple months urinary urgency Onset and Resolution ongoing 11/16/2010 has not been using premar in vaginal cream high blood pressure Quality stable 11/16/2010 None myalgias Onset and Resolution ongoing 11/04/2010 pains in legs since start ing potassium arrhythmia Quality tachy cardia 11/04/2010 None arrhythmia Quality inter mittent 11/04/2010 None high blood pressure Quality stable 11/04/2010 since been off meds joint complaint Quality worsening 11/04/2010 in right hip and down leg cough Location in the sammy ng 08/05/2010 None chest congestion Onset and Resolution ongoing 08/05/2010 None sinus congestion Quality worsening 08/05/2010 None sinus congestion Location on both sides 07/23/2010 None cough Location in the sammy ng 07/23/2010 None hypertension Quality con stant 06/07/2010 None low blood pressure Quality intermittent 06/07/2010 None hoarseness Onset and Resolution ongoing 06/07/2010 thought was due to Bystol ic but has not resolved since changed BP med abdominal pain Location in the periumbilical area 04/27/2010 None abdominal pain Quality i mproving 04/27/2010 since started taking Bent yl arthralgia(s) Quality in termittent 04/27/2010 to right ankle and bilate ral wrists urinary urgency Quality intermittent 03/09/2010 None headache Quality intermi ttent 03/09/2010 None hypoglycemia Quality hea dache 03/09/2010 None anxiety Quality intermit tent 03/09/2010 None headache Quality aching 01/04/2010 start in back of head and radiate around vomiting Onset and Resolution resolved 01/04/2010 only happens with headach es headache Onset and Resolution sudden in onset 01/04/[address] scan high blood pressure Quality improving 01/04/2010 with bystolic hypertension Quality int ermittent 12/14/2009 None headache Quality intermi ttent 12/14/2009 None menopausal symptoms Frequency of Episodes unchanged 12/14/2009 only changed premarin due to it being made from mare's urine follow up Illness sympto ms improved 11/23/2009 None follow up Illness Contin ues to cough 11/23/2009 Cough is productive in th e morning, has dark greenish sputum. Advance Directives No Advance Directive data Encounters Encounter Performer Loca tion Codes Date ([id number]) OFFICE/OUTPA TIENT VISIT EST Diagnosis: Pain in thoracic spine[ICD10: M54.6] Diagnosis: Muscle spasm of back[ICD10: M62.830] Yaima SAMUELS SRobin MCWILLIAMS NDER [employer] CPT-4: 66234 01/16/2019 ([id number]) NURSE/OUTPAT IENT VISIT EST Diagnosis: Low back pain[ICD10: M54.5] Diagnosis: Hematuria, unspecified[ICD10: R31.9] Yaima Escalera ORE NDER DO [facility] CPT-4: 63857 01/14/2019 ([id number]) OFFICE/OUTPA TIENT VISIT EST Diagnosis: Left lower quadrant pain[ICD10: R10.32] Yaima SAMUELS SRobin ORE NDER DO [facility] CPT-4: 18198 01/09/2019 ([id number]) NURSE/OUTPAT IENT VISIT EST Diagnosis: Hematuria, unspecified[ICD10: R31.9] Yaima TAYLOR [facility] CPT-4: 37686 11/01/2018 ([id number]) OFFICE/OUTPA TIENT VISIT EST Diagnosis: Hypothyroidism, unspecified[ICD10: E03.9] Diagnosis: Other fatigue[ICD10: R53.83] Diagnosis: Other cervical disc degeneration, unspecified cervical region[ICD10: M50.30] Yaima JOHNSON DO [facility] CPT-4: 64310 10/04/2018 ([id number]) OFFICE/OUTPA TIENT VISIT EST Diagnosis: Hypothyroidism, unspecified[ICD10: E03.9] Diagnosis: Impaired fasting glucose[ICD10: R73.01] Diagnosis: Cervicalgia[ICD10: M54.2] Yaima JOHNSON DO [facility] CPT-4: 03407 08/06/2018 ([id number]) OFFICE/OUTPA TIENT VISIT EST Diagnosis: Radiculopathy, lumbosacral region[ICD10: M54.17] Diagnosis: Abrasion, left lower leg, sequela[ICD10: S80.812S] Yaima TAYLOR [facility] CPT-4: 37479 06/21/2018 ([id number]) NURSE/OUTPAT IENT VISIT EST Diagnosis: Urinary tract infection, site not specified[ICD10: N39.0] Yaima JOHNSON [facility] CPT-4: 29555 06/13/2018 ([id number]) OFFICE/OUTPA TIENT VISIT EST Diagnosis: Other dorsalgia[ICD10: M54.89] Jane JOHNSON [facility] CPT-4: 04501 05/31/2018 ([id number]) NURSE/OUTPAT IENT VISIT EST Diagnosis: FLU VACCINE[ICD10: Z23] Yaima JOHNSON [facility] CPT-4: 69085 03/22/2018 ([id number]) OFFICE/OUTPA TIENT VISIT EST Diagnosis: Hypothyroidism, unspecified[ICD10: E03.9] Diagnosis: Essential (primary) hypertension[ICD10: I10] Diagnosis: Other seasonal allergic rhinitis[ICD10: J30.2] Yaima MCWILLIAMS [facility] CPT-4: 27326 02/06/2018 ([id number]) NURSE/OUTPAT IENT VISIT EST Diagnosis: Laceration of blood vessel of right index finger, initial encounter[ICD10: S65.510A] Diagnosis: VACCINE FOR TDAP[ICD10: Z23] Yaima JOHNSON [facility] CPT-4: 97989 12/28/2017 ([id number]) OFFICE/OUTPA TIENT VISIT EST Diagnosis: Tinnitus, bilateral[ICD10: H93.13] [facility] CPT-4: 18641 12/18/2017 ([id number]) NURSE/OUTPAT IENT VISIT EST Diagnosis: VACCIN FOR DISEASE NEC (HPV or Zostavax)[ICD10: Z23] Yaima MCWILLIAMS [facility] CPT-4: 78284 10/04/2017 OFFICE/OUTPATIENT SIT EST Diagnosis: Hypothyroidism, unspecified[ICD10: E03.9] Diagnosis: Essential (primary) hypertension[ICD10: I10] Diagnosis: Gastro-esophageal reflux disease without esophagitis[ICD10: K21.9] Diagnosis: Pain in right knee[ICD10: M25.561] Diagnosis: Hyperglycemia, unspecified[ICD10: R73.9] Yaima MCWILLIAMS [facility] CPT-4: 41902 09/11/2017 ([id number]) OFFICE/OUTPA TIENT VISIT EST Diagnosis: Cervicalgia[ICD10: M54.2] Diagnosis: Hypothyroidism, unspecified[ICD10: E03.9] Diagnosis: Essential (primary) hypertension[ICD10: I10] Diagnosis: Irritant contact dermatitis, unspecified cause[ICD10: L24.9] Diagnosis: FLU VACCINE[ICD10: Z23] [facility] CPT-[facility]: 40108 03/28/2017 ([id number]) OFFICE/OUTPA TIENT VISIT EST Diagnosis: Influenza due to identified novel influenza A virus with other manifestations[ICD10: J09.X9] Yaima MCWILLIAMSNDER [facility] CPT-4: 25852 09/12/2016 ([id number]) OFFICE/OUTPA TIENT VISIT EST Diagnosis: Dermatitis, unspecified[ICD10: L30.9] Diagnosis: Pain in right knee[ICD10: M25.561] Yaima TAYLOR [facility] CPT-4: 76432 07/28/2016 ([id number]) OFFICE/OUTPA TIENT VISIT EST Diagnosis: Incisional hernia without obstruction or gangrene[ICD10: K43.2] Diagnosis: Gastro-esophageal reflux disease without esophagitis[ICD10: K21.9] Diagnosis: Radiculopathy, lumbosacral region[ICD10: M54.17] Yaima TAYLOR [facility] CPT-4: 13323 04/26/2016 ([id number]) OFFICE/OUTPA TIENT VISIT EST Diagnosis: FLU VACCINE[ICD10: Z23] Yaima JOHNSON [facility] CPT-4: 70203 04/22/2016 ([id number]) OFFICE/OUTPA TIENT VISIT EST Diagnosis: Other fecal abnormalities[ICD10: R19.5] Yaima TAYLOR [facility] CPT-4: 98623 01/04/2016 ([id number]) OFFICE/OUTPA TIENT VISIT EST 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] Diagnosis: Other specified diseases of liver[ICD10: K76.89] Diagnosis: Irritant contact dermatitis due to detergents[ICD10: L24.0] Yaima JOHNSON [facility] CPT-4: 80815 12/09/2015 ([id number]) OFFICE/OUTPA TIENT VISIT EST Diagnosis: Pain in thoracic spine[ICD10: M54.6] Diagnosis: Radiculopathy, lumbosacral region[ICD10: M54.17] Diagnosis: Precordial pain[ICD10: R07.2] Yaima JOHNSON [facility] CPT-4: 46273 09/10/2015 ([id number]) OFFICE/OUTPA TIENT VISIT EST Diagnosis: Nausea[ICD10: R11.0] Yaima JOHNSON [facility] CPT-4: 26106 07/20/2015 ([id number]) OFFICE/OUTPA TIENT VISIT EST Diagnosis: Pain in left elbow[ICD10: M25.522] Diagnosis: Contusion of left lower leg, sequela[ICD10: S80.12XS] Diagnosis: Pleurodynia[ICD10: R07.81] Yaima JOHNSON [facility] CPT-4: 86718 04/23/2015 ([id number]) OFFICE/OUTPA TIENT VISIT EST Diagnosis: Unspecified abdominal pain[ICD10: R10.9] Diagnosis: Ventral hernia without obstruction or gangrene[ICD10: K43.9] Diagnosis: Constipation, unspecified[ICD10: K59.00] Yaima TAY[facility]OR [facility] CPT-4: 99060 03/24/2015 ([id number]) OFFICE/OUTPA TIENT VISIT EST Diagnosis: FLU VACCINE[ICD10: Z23] Yaima JOHNSON [facility] CPT-4: 63185 03/09/2015 ([id number]) OFFICE/OUTPA TIENT VISIT EST 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] Diagnosis: Generalized abdominal pain[ICD10: R10.84] Yaima [facility] CPT-4: 82239 03/05/2015 OFFICE/OUTPATIENT SIT EST Diagnosis: ABDOMINAL PAIN[ICD9: 789.00] Diagnosis: HYPOTHYROIDISM[ICD9: 244.9] Diagnosis: HYPERTENSION[ICD9: 401.9] Diagnosis: DIVERTICULITIS, COLONIC[ICD9: 562.11] Diagnosis: DISTURBANCE OF SKIN SENSATION (Paresthesia)[ICD9: 782.0] Yaima JOHNSON DO [facility] CPT-4: 09246 02/19/2015 ([id number]) OFFICE/OUTPA TIENT VISIT EST Diagnosis: HYPOTHYROIDISM[ICD9: 244.9] Diagnosis: Diaphoresis[ICD9: 780.8] Yaima JOHNSON DO [facility] CPT-4: 56608 12/25/2014 ([id number]) OFFICE/OUTPA TIENT VISIT EST Diagnosis: ABDOMINAL PAIN[ICD9: 789.00] Diagnosis: PAIN, LOWER BACK[ICD9: 724.2] Diagnosis: Contusion of leg[ICD9: 924.5] Yaima JOHNSON DO [facility] CPT-4: 31775 11/26/2014 ([id number]) OFFICE/OUTPA TIENT VISIT EST Diagnosis: IBS[ICD9: 564.1] Diagnosis: GERD[ICD9: 530.81] Yaima JOHNSON DO [facility] CPT-4: 11806 11/04/2014 ([id number]) OFFICE/OUTPA TIENT VISIT EST Diagnosis: Headache[ICD9: 784.0] Diagnosis: Leg pain[ICD9: 729.5] Yaima JOHNSON DO [facility] CPT-4: 04993 09/01/2014 ([id number]) OFFICE/OUTPA TIENT VISIT EST Diagnosis: DYSURIA[ICD9: 788.1] Yaima JOHNSON DO [facility] CPT-4: 80365 07/10/2014 OFFICE/OUTPATIENT SIT EST Diagnosis: VAGINITIS[ICD9: 623.5] Diagnosis: SINUSITIS, ACUTE[ICD9: 461.9] Yaima JOHNSON DO [facility] CPT-4: 83023 06/02/2014 ([id number]) OFFICE/OUTPA TIENT VISIT EST Diagnosis: HYPERTENSION[ICD9: 401.9] Diagnosis: ALLERGIC RHINITIS[ICD9: 477.9] Diagnosis: PAIN, LOWER BACK[ICD9: 724.2] Yaima JOHNSON DO [facility] CPT-4: 69735 04/08/2014 ([id number]) OFFICE/OUTPA TIENT VISIT EST Diagnosis: COUGH[ICD10: R05] Diagnosis: Thoracic back pain[ICD9: 724.1] Yaima JOHNSON DO [facility] CPT-4: 04853 03/05/2014 ([id number]) OFFICE/OUTPA TIENT VISIT EST Diagnosis: SINUSITIS, ACUTE[ICD9: 461.9] Diagnosis: BRONCHITIS, ACUTE[ICD9: 466.0] Yaima JOHNSON [facility] CPT-4: 44821 07/29/2013 ([id number]) OFFICE/OUTPA TIENT VISIT EST Diagnosis: ABDOMINAL PAIN[ICD9: 789.00] Diagnosis: Constipation[ICD9: 564.00] Diagnosis: DIVERTICULITIS, COLONIC[ICD9: 562.11] Yaima T[facility]OR [facility] CPT-4: 40087 03/20/2013 ([id number]) OFFICE/OUTPA TIENT VISIT EST Diagnosis: Plantar fasciitis[ICD9: 728.71] Diagnosis: ALLERGIC RHINITIS[ICD9: 477.9] Yaima JOHNSON DO [facility] CPT-4: 89548 02/12/2013 OFFICE/OUTPATIENT SIT EST Diagnosis: Skin lesion[ICD9: 709.9] Diagnosis: Lumbar back pain[ICD9: 724.2] Diagnosis: Muscle spasm[ICD9: 728.85] Diagnosis: Hypothyroid[ICD9: 244.9] Yaima JOHNSON [facility] CPT-4: 56745 11/05/2012 ([id number]) OFFICE/OUTPA TIENT VISIT EST Diagnosis: Cervicalgia[ICD9: 723.1] Diagnosis: Thoracic back pain[ICD9: 724.1] Diagnosis: SPASM OF MUSCLE[ICD9: 728.85] Yaima JOHNSON [facility] CPT-4: 23798 10/04/2012 ([id number]) OFFICE/OUTPA TIENT VISIT EST Diagnosis: MALAISE AND FATIGUE[ICD9: 780.79] Diagnosis: HYPOTHYROIDISM[ICD9: 244.9] Diagnosis: HYPERTENSION[ICD9: 401.9] Yaima JOHNSON DO [facility] CPT-4: 87866 09/24/2012 ([id number]) OFFICE/OUTPA TIENT VISIT EST Diagnosis: Lateral epicondylitis[ICD9: 726.32] Diagnosis: Wrist pain[ICD9: 719.43] Diagnosis: Numbness and tingling in right hand[ICD9: 782.0] Yaima T[facility]OR [facility] CPT-4: 89669 05/10/2012 OFFICE/OUTPATIENT SIT EST Diagnosis: MALAISE AND FATIGUE[ICD9: 780.79] Diagnosis: HYPOTHYROIDISM[ICD9: 244.9] Diagnosis: Enthesopathy of the wrist and carpus[ICD9: 726.4] Diagnosis: Foot pain[ICD9: 729.5] Diagnosis: DYSPHAGIA NEC[ICD9: 787.29] Yaima JOHNSON [facility] CPT-4: 03237 03/07/2012 ([id number]) OFFICE/OUTPA TIENT VISIT EST Diagnosis: HYPOTHYROIDISM[ICD9: 244.9] Yaima RaviRobin [facility] CPT-4: 13142 02/01/2012 ([id number]) OFFICE/OUTPA TIENT VISIT EST Diagnosis: MALAISE AND FATIGUE[ICD9: 780.79] Diagnosis: HYPOTHYROIDISM[ICD9: 244.9] Yaima MCCORMACKLINE BreonnaRobin [facility] CPT-4: 00375 12/20/2011 OFFICE/OUTPATIENT SIT EST Diagnosis: INSECT BITE HIP/LEG[ICD9: 916.4] Lizzette Lozano YAIMA Bre[facility]Robin [facility] CPT-4: 53504 11/22/2011 OFFICE/OUTPATIENT SIT EST Diagnosis: HEMATURIA NOS[ICD9: 599.70] Yaima MCCORMACKLINE BreonnaRobin [facility] CPT-4: 40748 07/14/2011 OFFICE/OUTPATIENT SIT EST Diagnosis: URINARY TRACT INFECTION[ICD9: 599.0] Diagnosis: DIVERTICULITIS, COLONIC[ICD9: 562.11] Yaima Elizabeth MCCORMACKLINE BreonnaRobin JOSUE TAYLOR [facility] CPT-4: 38990 07/11/2011 OFFICE/OUTPATIENT SIT EST Diagnosis: TMJ arthritis[ICD9: 524.69] Diagnosis: MIGRAINE NOS/NOT INTRCBL[ICD9: 346.90] Diagnosis: Rectal fissure[ICD9: 565.0] Yaima Josuejuliannicole MCCORMACKYAIMA BreonnaRobin [facility] CPT-4: 44267 07/06/2011 OFFICE/OUTPATIENT SIT EST Diagnosis: SPASM OF MUSCLE[ICD9: 728.85] Diagnosis: PAIN, LOWER BACK[ICD9: 724.2] Yaima JOHNSON [facility] CPT-4: 63100 05/26/2011 OFFICE/OUTPATIENT SIT EST Diagnosis: PAIN, LOWER BACK[ICD9: 724.2] Diagnosis: SPASM OF MUSCLE[ICD9: 728.85] Yaima JOHNSON [facility] CPT-4: 23435 05/16/2011 OFFICE/OUTPATIENT SIT EST Diagnosis: PAIN, LOWER BACK[ICD9: 724.2] Diagnosis: ENTHESOPATHY OF HIP[ICD9: 726.5] Diagnosis: Onychomycosis[ICD9: 110.1] Yaima JOHNSON [facility] CPT-4: 92278 05/05/2011 OFFICE/OUTPATIENT SIT EST Diagnosis: Diverticulitis[ICD9: 562.11] Yaima JOHNSON [facility] CPT-4: 82451 04/05/2011 OFFICE/OUTPATIENT SIT EST Diagnosis: CHEST PAIN NOS[ICD9: 786.50] Diagnosis: PALPITATIONS[ICD9: 785.1] Diagnosis: Pulmonary arterial hypertension[ICD9: 416.8] Yaima MCWILLIAMS NDER [facility] CPT-4: 84155 03/02/2011 OFFICE/OUTPATIENT SIT EST Yaima MCWILLIAMS NDER DO [facility] CPT-4: 17237 01/05/2011 ([id number]) OFFICE/OUTPA TIENT VISIT EST Yaima MCWILLIAMS NDER DO [facility] CPT-4: 25789 11/16/2010 ([id number]) OFFICE/OUTPA TIENT VISIT EST Yaima MCWILLIAMS NDER DO [facility] CPT-4: 96378 11/04/2010 ([id number]) OFFICE/OUTPA TIENT VISIT EST Yaima MCWILLIAMS NDER DO [facility] CPT-4: 60991 08/05/2010 ([id number]) OFFICE/OUTPA TIENT VISIT EST [facility] CPT-4: 31614 07/23/2010 ([id number]) OFFICE/OUTPA TIENT VISIT, EST Yaima [facility] CPT-4: 62893 06/07/2010 ([id number]) OFFICE/OUTPA TIENT VISIT, EST Yaima [facility] CPT-4: 14472 05/12/2010 ([id number]) OFFICE/OUTPA TIENT VISIT, EST Yaima [facility] CPT-4: 97416 04/27/2010 ([id number]) OFFICE/OUTPA TIENT VISIT, EST Yaima [facility] CPT-4: 99351 04/19/2010 ([id number]) OFFICE/OUTPA TIENT VISIT, EST Yaima [facility] CPT-4: 21001 03/09/2010 ([id number]) OFFICE/OUTPA TIENT VISIT, EST Yaima [facility] CPT-4: 42183 01/04/2010 ([id number]) OFFICE/OUTPA TIENT VISIT, EST Yaiam [facility] CPT-4: 73418 12/14/2009 ([id number]) OFFICE/OUTPA TIENT VISIT, EST [facility]izzette [facility] CPT-4: 84611 11/23/2009 Plan of Care Planned Activity Notes C odes Status Date Visit Diagnosis Plan: Pain in thoracic spine Discussion: Moist Heat Topical Muscle Rub Towel Stretch Skelaxin with Tylenol Arthritis TID Okay to use lidoderm patches Notify if persists ICD-9 : 724.1 ICD-10 : M54.6 01/16/2019 Appointment: [facility] [phone] [facility] [facility] 01/14/2019 Visit Diagnosis Plan: Left lower quadrant pain Discussion: Appears to have a hernia so did discuss surgical evaluation ICD-9 : 789.04 ICD-10 : R10.32 01/09/2019 Appointment: Yaima Johnson WPtel: [address] [place] [address] ACUTE ILLNESS 01/09/2019 Visit Diagnosis Plan: Encounter for gene [facility] adult medical examination without abnormal findings Discussion: Mediterranean diet Combinati on of cardio and weight bearing exercise Update colonoscopy Tdap up to date Had Shingrix Recommend Prevnar 13 this Fall with Influenza Vaccine Finish PT Mammog alessandra due in January and will do lab then as well Had WWE done this year by Dr. Richards ICD-9 : V70.9 ICD-10 : Z00.00 11/21/2018 Appointment: Yaima Johnson WPtel: [address] [place] [address] WELCOME TO MEDICARE 11/21/2018 Care Plan: Referral Order SNOMED-CT : 682218858 Pending 11/21/2018 Appointment: Yaima Johnson WPtel: [address] [place], [place] [phone] UA 11/01/2018 Visit Diagnosis Plan: Hypothyroidism, unspecified Discussion: Restart synthroid at 50mcg daily and recheck lab in 3mos ICD-9 : 244.9 ICD-10 : E03.9 10/04/2018 Visit Diagnosis Plan: Other cervical dis c degeneration, unspecified cervical region Discussion: MRI results discussed [facility] Dr. Johnson ICD-9 : 722.4 ICD-10 : M50.30 10/04/2018 Appointment: Yaima Johnson WPtel: [address] [place], [place] [phone] [place] FOLLOW UP 10/04/2018 Care Plan: Referral Order SNOMED-CT : [id number] Pending 10/04/2018 Visit Diagnosis Plan: Hypothyroidism, unspecified Discussion: Patient wants to try to come off meds so will decrease levothyroxine to 25mcg for 2mos then check lab and if levels stable then will try to DC levothyroxine ICD-9 : 244.9 ICD-10 : E03.9 08/06/2018 Visit Diagnosis Plan: Impaired fasting glucose Discussion: HbA1C has worsened so will focus on lifestyle change with getting back to diet/exercise and recheck in 6mos ICD-9 : 790.29 ICD-10 : R73.01 08/06/2018 Visit Diagnosis Plan: Cervicalgia Di scussion: See neurosurgery for updated x-rays/exam--was told in past needed surgery Follow Up: 6 months ICD-9 : 723.1 ICD-10 : M54.2 08/06/2018 Appointment: Yaima Johnson WPtel: [address] [place], [place] [id number] Schedule medicare annual! FOLLOW UP 08/06/2018 Patient Education: levothyroxine- [employer] Coupon [id number] [email or web address] Completed 08/06/2018 Visit Diagnosis Plan: Radiculopathy, lumbosacral regio n Discussion: Daily stretches and see if improves--low dose gabapentin trial q HS if does not improve Lab and fwup in 3mos ICD-9 : 724.4 ICD-10 : M54.17 06/21/2018 Visit Diagnosis Plan: Abrasion, left lower leg, sequel a Discussion: Vitamin E topically for scarring/dryness ICD-9 : 906.2 ICD-10 : S80.812S 06/21/2018 Appointment: Yaima Johnsontel: [address] [place], [place] [id number] ACUTE ILLNESS 06/21/2018 Appointment: Yaima Johnson WPtel: [address] [place], [place] [id number] UA 06/13/2018 Visit Diagnosis Plan: Other dorsalgia Discussion: urine culture to be sent off to rule [...] ICD-10 : M54.89 05/31/2018 Appointment: Jane Nettles [address] [place] [address] ACUTE ILLNESS 05/31/2018 Appointment: Yaima Johnson WPtel: [address] [place] [address] [place] INJECTION 03/22/2018 Patient Education: Patient Medication Summary Completed 03/22/2018 Patient Education: INFLUENZA VACCINE CDC Completed 03/22/2018 Appointment: Yaima Johnson WPtel: [address] [place] [address] [place] RESCHEDULED 02/14/2018 Visit Diagnosis Plan: Hypothyroidism, unspecified Discussion: Lab discussed Has had both Shingrix shots [...] : J30.2 02/06/2018 Appointment: Yaima Johnson WPtel: [address] [place] [address] [place] FOLLOW UP 02/06/2018 Patient Education: Patient Medication Summary Completed 02/06/2018 Appointment: Yaima Johnson WPtel: [address] [place], [place] [phone] [place] INJECTION 12/28/2017 Patient Education: Patient Medication Summary Completed 12/28/2017 Appointment: Yaima Johnson WPtel: [address] [place], [place] [phone] US RESCHEDULED 12/25/2017 Visit Diagnosis Plan: Tinnitus, bilateral Discussion: See ENT for hearing eval and further workup ICD-9 : 388.31 ICD-10 : H93.13 12/18/2017 Appointment: Yaima Johnson WPtel: [address] [place], [place] [phone] ACUTE ILLNESS 12/18/2017 Patient Education: Patient Medication Summary Completed 12/18/2017 Patient Education: Tinnitus Completed 12/18/2017 Care Plan: Referral Order SNOMED-CT : [id number] Pending 12/18/2017 Appointment: Yaima Johnson WPtel: [address] [place], [place] [phone] BP CHECK 12/11/2017 Patient Education: Patient Medication Summary Completed 12/11/2017 Referral: Danyel Hernandez WPtel: [facility] [address] Referral Initiated 10/11/2017 Appointment: Yaima Johnson WPtel: [address] [place], [place] [phone] INJECTION 10/04/2017 Patient Education: Patient Medication Summary Completed 10/04/2017 Visit Diagnosis Plan: Gastro-esophageal reflux disease without esophagitis Discussion: Stable ICD-9 : 530.81 ICD-10 : K21.9 09/11/2017 Visit Diagnosis Plan: Pain in right knee Discussion: See orhto for injection--had surgery 1 year ago ICD-9 : 719.46 ICD-10 : M25.561 09/11/2017 Visit Diagnosis Plan: Essential (primary) hypertension Discussion: Stable Discussed Shingrix Follow Up: As needed ICD-9 : 401.9 ICD-10 : I10 09/11/2017 Visit Diagnosis Plan: Hyperglycemia, unspecified Discussion: Lifestyle change and recheck lab with HbA1C in 6mos Follow Up: 6 months ICD-9 : 790.29 ICD-10 : R73.9 09/11/2017 Visit Diagnosis Plan: Hypothyroidism, unspecified Discussion: Stable ICD-9 : 244.9 ICD-10 : E03.9 09/11/2017 Appointment: Yaima Johnson WPtel: [address] [place] [id number] FOLLOW UP 09/11/2017 Patient Education: Patient Medication Summary Completed 09/11/2017 Appointment: [facility] [address] [facility] 08/28/17 1239---issue addressed in phone message (km) CANCELED 08/29/2017 Patient Education: Patient Medication Summary Completed 07/11/2017 Care Plan: A1C HPLC LO INC : 27816-5 Pending 07/11/2017 Care Plan: ASSAY OF FREE THYROXINE Pending 07/11/2017 Care Plan: ASSAY THYROID STIM HORMONE Pending 07/11/2017 Care Plan: COMPLETE CBC W/AUTO DIFF WBC LOINC : 29117-4 Pending 07/11/2017 Care Plan: COMPREHEN METABOLIC PANEL LOINC : 89084-6 Pending 07/11/2017 Visit Diagnosis Plan: Irritant contact d ermatitis, unspecified cause Discussion: Topical Betamethasone ICD-9 : 692.9 ICD-10 : L24.9 03/28/2017 Visit Diagnosis Plan: Cervicalgia Di scussion: Daily neck stretches Moist Heat ICD-9 : 723.1 ICD-10 : M54.2 03/28/2017 Visit Diagnosis Plan: Essential (primary) hypertension Discussion: Stable Flu shot given ICD-9 : 401.9 ICD-10 : I10 03/28/2017 Visit Diagnosis Plan: Hypothyroidism, unspecified Discussion: Lab done in February--will recheck in August and fwup ICD-9 : 244.9 ICD-10 : E03.9 03/28/2017 Appointment: [facility] Johnson [facility]el[facility] [phone] [facility] [facility] 03/28/2017 Patient Education: Patient Medication Summary Completed 03/28/2017 Patient Education: Patient Medication Summary Completed 02/17/2017 Care Plan: ASSAY OF FREE THYROXINE Pending 02/17/2017 Care Plan: ASSAY THYROID STIM HORMONE Pending 02/17/2017 Care Plan: A1C HPLC LO INC : 28192-5 Pending 02/17/2017 Patient Education: Patient Medication Summary Completed 11/23/2016 Care Plan: A1C HPLC LO INC : 59058-4 Pending 11/23/2016 Patient Education: Patient Medication Summary Completed 11/22/2016 Care Plan: COMPREHEN METABOLIC PANEL LOINC : 48745-1 Pending 11/22/2016 Care Plan: ASSAY THYROID STIM HORMONE Pending 11/22/2016 Care Plan: ASSAY OF FREE THYROXINE Pending 11/22/2016 Care Plan: CBC Pending 11/22/2016 Care Plan: ASSAY TRIIODOTHYRONINE (T3) Pending 11/22/2016 Care Plan: ASSAY OF IRON Pending 11/22/2016 Care Plan: VITAMIN B-12 Pending 11/22/2016 Patient Education: Patient Medication Summary Completed 11/09/2016 Care Plan: US EXAM ABDO BACK WALL COMP Pending 11/09/2016 Patient Education: Patient Medication Summary Completed 09/26/2016 Visit Plan: Saline nasal flushes pr n. Tylenol/Motrin prn headache. Notify if persists/symptoms worsening. 09/12/2016 Visit Plan: Saline nasal flushes pr n. Tylenol/Motrin prn headache. Notify if persists/symptoms worsening. 09/12/2016 Visit Diagnosis Plan: Influenza due to i dentified novel influenza A virus with other manifestations Discussion: Tamiflu for her and ICD-9 : 488.09 ICD-10 : J09.X9 09/12/2016 Visit NOS Plan: Plan Notes: Saline nasal flushes prn. Tyle... 09/12/2016 Appointment: Yaima Johnson WPtel: [phone] [facility] ACUTE ILLNESS 09/12/2016 Patient Education: Patient Medication Summary Completed 09/12/2016 Visit Diagnosis Plan: Pain in right knee Discussion: MRI of right knee scheduled for this weekend by ortho ICD-9 : 719.46 ICD-10 : M25.561 07/28/2016 Visit Diagnosis Plan: Dermatitis, unspecified Discussion: Use clotrimazole/betamethasone BID to hand rash ICD-9 : 692.9 ICD-10 : L30.9 07/28/2016 Appointment: Yaima Johnson WPtel: [phone] [facility] 07/27 confirmed `sl ACUTE ILLNESS 07/28/2016 Patient Education: Patient Medication Summary Completed 07/28/2016 Visit Plan: Discussed core strength ening for both hernia and low back Keep stools soft so continue fiber and may add 1/4 dose of miralax 3 times a week Discussed incarceration or strangulation of hernia signs Will change protonix to pepcid 40mg daily next month and see how does 04/26/2016 Appointment: Yaima Johnson WPtel: [address] [place], [place] [phone] ACUTE ILLNESS 04/26/2016 Patient Education: Patient Medication Summary Completed 04/26/2016 Appointment: Yaima Johnson WPtel: [address] [place], [place] [phone] [place] INJECTION 04/22/2016 Patient Education: Patient Medication Summary Completed 04/22/2016 Appointment: Yaima Johnson WPtel: [address] [place] [address] Stool lab 01/04/2016 Patient Education: Patient Medication Summary Completed 01/04/2016 Visit Plan: [facility] Discussed that liver lesion and right kidney cyst are stable dating back to 2009 so likely benign and will recheck in 1year Check CMP and CBC 12/09/2015 Visit Plan: [facility] Discussed that liver lesion and right kidney cyst are stable dating back to 2009 so likely benign and will recheck in 1year 12/09/2015 Appointment: Yaima Johnson WPtel: [address] [place], [place] [phone] FOLLOW UP 12/09/2015 Patient Education: Patient Medication Summary Completed 12/09/2015 Patient Education: Patient Medication Summary Completed 11/26/2015 Care Plan: ECHO EXAM OF ABDOMEN Pending 11/26/2015 Care Plan: US EXAM ABDO BACK WALL COMP Pending 11/26/2015 Patient Education: Patient Medication Summary Completed 11/10/2015 Care Plan: ASSAY THYROID STIM HORMONE Pending 11/10/2015 Care Plan: ASSAY OF FREE THYROXINE Pending 11/10/2015 Visit Plan: Start PT for both right leg sciatica and thoracics for chest pain 09/10/2015 Appointment: Yaima Johnson WPtel: [address] [place], [place] [phone] ACUTE ILLNESS 09/10/2015 Patient Education: Patient Medication Summary Completed 09/10/2015 Appointment: Yaima Johnson WPtel: [phone] [facility] US INJECTION 07/20/2015 Patient Education: Patient Medication Summary Completed 07/20/2015 Patient Education: Patient Medication Summary Completed 05/04/2015 Visit Plan: Observe left elbow for next 2 weeks and if not improving let us know Observe left leg bruising Can use voltaren gel to elbow Observe ribs Lidoderm patch for SI joint 04/23/2015 Appointment: Yaima Johnson WPtel: [phone] [facility] US FOLLOW UP 04/23/2015 Patient Education: Patient Medication Summary Completed 04/23/2015 Patient Education: Patient Medication Summary Completed 04/20/2015 Visit Plan: Discussed CT results Ad d Miralax 1/2 cap every other day 03/24/2015 Visit Plan: Discussed CT results Ad d Miralax 1/2 cap every other day 03/24/2015 Appointment: Yaima Johnson WPtel: [phone] [facility] [place] 03/23 confirmed~sl FOLLOW UP 03/24/2015 Patient Education: Patient Medication Summary Completed 03/24/2015 Appointment: Yaima Johnson WPtel: [address] [place], [place] [phone] [place] INJECTION 03/09/2015 Patient Education: Patient Medication Summary Completed 03/09/2015 Visit Plan: Check CT scan of abdome n and pelvis with oral contrast Thoracic towel stretch 03/05/2015 Appointment: [facility] Johnson [facility]Ptel: [phone] [facility] [facility] FOLLOW UP 03/05/2015 Patient Education: Patient Medication Summary Completed 03/05/2015 Referral: Richmond Berger WPtel: [phone] [id number] [place] Referral Initiated 02/23/2015 Visit Plan: Lab discussed--will tonio p thyroid dose the same Start back daily stretches Start carpal tunnel brace for left hand--for sleep, long drives and repetitive activities Increase protonix back up to BID and see Dr. Berger for EGD due to ongoing problems and history of esophageal stricture May use voltaren gel to right SI joint and left knee 02/19/2015 Appointment: Yaima Johnsontel: [address] [place], [place] [phone] 02/18/15 lm confirmed with cb FOLLOW UP 02/19/2015 Patient Education: Patient Medication Summary Completed 02/19/2015 Patient Education: Patient Medication Summary Completed 02/04/2015 Appointment: Yaima Johnson WPtel: [address] [place], [place] [phone] FOLLOW UP 01/06/2015 Visit Plan: Decrease levothyroxine to 50mcg daily Recheck TSH and Free T4 in 2mos then fwup 12/25/2014 Appointment: Yaima Johnson WPtel: [address] [place], [place] [phone] ACUTE ILLNESS 12/25/2014 Patient Education: Patient Medication Summary Completed 12/25/2014 Patient Education: [facility] - [employer] - Levothyroxine - 18-64 - Dynamic Portal ID Completed 12/25/2014 Patient Education: Patient Medication Summary Completed 12/15/2014 Visit Plan: Observe left leg keep m eds same Has scheduled for 2nd epidural Recheck 3-4weeks after next epidural 11/26/2014 Appointment: Yaima Johnson WPtel: [address] [place], [place] [phone] 11/25 appt confirmed cn FOLLOW UP 11/26/2014 Patient Education: Patient Medication Summary Completed 11/26/2014 Visit Plan: Increase Protonix to 40 mg po BID Add Bentyl 10mg BID and up to TID prn Patient goes for back injection in 3 weeks Fwup 1 week after back injection 11/04/2014 Appointment: Yaima Johnson WPtel: [address] [place], [place] [phone] 11/03/ Vm/ 11/04 appt confirmed ACUTE ILLNESS 11/04/2014 Patient Education: Patient Medication Summary Completed 11/04/2014 Appointment: Yaima Johnson WPtel: [address] [place], [place] [phone] 10/14/14: doing better-canceled appt-lb ACUTE ILLNESS 10/15/2014 Visit Plan: hydration stop benadryl Observe and monitor Headaches Leg stretches, going to PT today-have them show stretches Notify if headaches, leg pain return/persist 09/01/2014 Appointment: Yaima Johnson WPtel: [address] [place], [place] [phone] ACUTE ILLNESS 09/01/2014 Patient Education: Patient Medication Summary Completed 09/01/2014 Patient Education: Patient Medication Summary Completed 08/05/2014 Care Plan: ASSAY OF FREE THYROXINE Ordered 08/05/2014 Care Plan: ASSAY THYROID STIM HORMONE Ordered 08/05/2014 Appointment: Yaima Johnson WPtel: [address] [place], [place] [phone] UA 07/10/2014 Patient Education: Patient Medication Summary Completed 07/10/2014 Patient Education: Patient Medication Summary Completed 07/03/2014 Care Plan: HEPATIC FUNCTION PANEL Ordered 07/03/2014 Visit Plan: Vaginal ring unable to be inserted do will have to stick with pill vaginally as prescribed for at least 6mo trial Saline nasal flushes and restart flonase 06/02/2014 Appointment: Yaima Johnson WPtel: [address] [place], [place] [phone] FOLLOW UP 06/02/2014 Patient Education: Patient Medication Summary Completed 06/02/2014 Appointment: Yaima Johnson WPtel: [address] [place], [place] [id number] BP CHECK 05/26/2014 Patient Education: Patient Medication Summary Completed 05/26/2014 Patient Education: Patient Medication Summary Completed 05/22/2014 Appointment: Yaima Johnson WPtel: [address] [place], [place] [phone] BP CHECK 05/07/2014 Patient Education: Patient Medication Summary Completed 05/07/2014 Referral: Nitesh Avalos WPtel: [address] [place] [address] 403 [id number] MRI Scheduled at [place], 04/17 3pm Completed 04/30/2014 Appointment: Yaima Johnson WPtel: [address] [place], [place] [id number] BP CHECK 04/15/2014 Visit Plan: Decrease premarin to 0. 3125mg for 1week then stop Restart estrogen vaginal s and Patient requests to see Dr. Restrepo for back but discussed at this time appears to need conservative management such as PT and epidurals Moniter BP 04/08/2014 Appointment: Yaima Johnson WPtel: [address] [place], [place] [phone] ACUTE ILLNESS 04/08/2014 Patient Education: Patient Medication Summary Completed 04/08/2014 Appointment: Yaima Johnson WPtel: [address] [place], [place] [phone] ACUTE ILLNESS 03/10/2014 Visit Plan: Thoracic stretches get y Skelaxin 800mg BID Use vimovo prn Use gemma prn 03/05/2014 Appointment: Yaima Johnson WPtel: [address] [place], [place] [id number] ACUTE ILLNESS 03/05/2014 Patient Education: Patient Medication Summary Completed 03/05/2014 Visit Plan: Saline nasal flushes pr n. Tylenol/Motrin prn headache. Notify if persists/symptoms worsening. Zithromax and Prednisone Supportive care. Rest, Fluids, Tylenol/Motrin prn fever or bodyaches. Notify if worsening symptoms. 07/29/2013 Appointment: Mimi Keenan WPtel: [address] [place], [place] [phone] FOLLOW UP 07/29/2013 Patient Education: Patient Medication Summary Completed 07/29/2013 Appointment: Mimi Keenan WPtel: [address] [place] [address] 05/22 patient called back and reschedule d 05/24 vm not set up yet ACUTE ILLNESS 05/27/2013 Visit Plan: Add miralax Cipro/Flagy l Pt has appointment with GI in NOV 03/20/2013 Appointment: Yaima Johnson WPtel: [address] [place] [address] ACUTE ILLNESS 03/20/2013 Patient Education: Patient Medication Summary Completed 03/20/2013 Visit Plan: [place] Stretches, ic e, voltaren gel TID 02/12/2013 Appointment: Yaima Johnson WPtel: [address] [place] [address] ACUTE ILLNESS 02/12/2013 Patient Education: Patient Medication Summary Completed 02/12/2013 Visit Plan: will notify if symtpoms worsen on finger. Septra DS and mupirocin (pt thinks has some from last year) Will keep covered with band aid. Pt to continue Vimovo, skelaxin and biofreeze. Pt. states was unaware she should be taking these despite instructions to do so at Dr. Johnson visit on 05 Oct 2012. 11/05/2012 Appointment: Lizzette Lozano WPtel: [address] [place] [address] ACUTE ILLNESS 11/05/2012 Patient Education: Patient Medication Summary Completed 11/05/2012 Visit Plan: Continue vimovo and Ske laxin and topical biofreeze Start PT May need MRI 10/04/2012 Appointment: Yaima Johnson WPtel: [address] [place] [address] FOLLOW UP 10/04/2012 Patient Education: Patient Medication Summary Completed 10/04/2012 Visit Plan: Change toprol back to b ystolic BP check in 3wks Continue to observe hands--no observed bruising today 09/24/2012 Appointment: Yaima Johnson WPtel: [address] [place], [place] [id number] 09/21 left message ACUTE ILLNESS 09/24/2012 Patient Education: Patient Medication Summary Completed 09/24/2012 Visit Plan: Proceed with EMG of RUE Continue vimovo and skelaxin May use Voltaren gel TID to elbow and wrist 05/10/2012 Appointment: Yaima Johnson WPtel: [address] [place], [place] [phone] 05/09 left voicemail ACUTE ILLNESS 05/10/2012 Patient [...] is improving 03/07/2012 Appointment: Yaima Johnson WPtel: [address] [place], [place] [phone] FOLLOW UP 03/07/2012 Patient Education: Patient Medication Summary Completed 03/07/2012 Visit Plan: Continue current dose C heck TSH, Free T4 in 2mos 02/01/2012 Appointment: Yaima Johnson WPtel: [address] [place], [place] [phone] [place] FOLLOW UP 02/01/2012 Patient Education: Patient Medication Summary Completed 02/01/2012 Visit Plan: Levothyroxine 50mcg po daily 12/20/2011 Appointment: Yaima Johnson WPtel: [address] [place], [place] [phone] [place] FOLLOW UP 12/20/2011 Patient Education: Patient Medication Summary Completed 12/20/2011 Visit Plan: Mupirocin topical and S eptra DS. 11/22/2011 Appointment: Lizzette Lozano WPtel: [address] [place], [place] [phone] ACUTE ILLNESS 11/22/2011 Patient Education: Patient Medication Summary Completed 11/22/2011 Appointment: Yaima Johnson WPtel: [address] [place] [address] UA 07/14/2011 Patient Education: Patient Medication Summary Completed 07/14/2011 Visit Plan: Finish current abx Greta r liquids to full liquids and then advance as tolerated If worsens will notify immediately Schedule with Dr. Berger for colonoscopy/EGD 07/11/2011 Appointment: Yaima Johnson WPtel: [address] [place] [address] ER Follow UP 07/11/2011 Patient Education: Patient Medication Summary Completed 07/11/2011 Visit Plan: Take treximet today and skelaxin at bedtime Add anusol cream for 1wk Discussed if colon continues to flare-up over the next 6mos will repeat colonoscopy 07/06/2011 Appointment: Yaima Johnson WPtel: [address] [place] [address] ACUTE ILLNESS 07/06/2011 Patient Education: Patient Medication Summary Completed 07/06/2011 Appointment: Yaima Johnson WPtel: [address] [place] [address] INJECTION 06/28/2011 Patient Education: Patient Medication Summary Completed 06/28/2011 Visit Plan: OMT done Increase Skela johann to TID Start PT Daily stretches 05/26/2011 Appointment: Yaima Johnson WPtel: [address] [place] [address] ACUTE ILLNESS 05/26/2011 Patient Education: Patient Medication Summary Completed 05/26/2011 Visit Plan: OMT done Daily stretche s, biofreeze Restart skelaxin 05/16/2011 Appointment: Yaima Johnson WPtel: [address] [place] [address] OMT 05/16/2011 Patient Education: Patient Medication Summary Completed 05/16/2011 Visit Plan: OMT done to back Stretc hes, moist heat and biofreeze Observe toenails 05/05/2011 Appointment: Yaima Johnson WPtel: [address] [place] [address] ACUTE ILLNESS 05/05/2011 Patient Education: Patient Medication Summary Completed 05/05/2011 Visit Plan: Finish Flagyl Continue Culturelle and add Levbid for 1more week 04/05/2011 Appointment: Yaima Johnson WPtel: [address] [place] [address] ER Follow UP 04/05/2011 Patient Education: Patient Medication Summary Completed 04/05/2011 Appointment: Lizzette Lozano WPtel: [address] [place] [address] ACUTE ILLNESS 03/25/2011 Appointment: Yaima Johnson WPtel: [address] [place] [address] UA 03/23/2011 Patient Education: Patient Medication Summary Completed 03/23/2011 Visit Plan: Recommend proceed with heart cath Will check PFTs 03/02/2011 Appointment: Yaima Johnson WPtel: [address] [place] [address] FOLLOW UP 03/02/2011 Patient Education: Patient Medication Summary Completed 03/02/2011 Appointment: Yaima Johnson WPtel: [address] [place] [address] LAB 01/14/2011 Patient Education: Patient Medication Summary Completed 01/14/2011 Visit Plan: Spoke with Dr. Chase's office and have arranged for an earlier appnt. on Jan 20 at 3:20. Pt. is sent for venous doppler and EKG. Discussed that if her chest pain or abdominal pain worsens she may need to seek re-eval. Pt. should monitor for fever as she reports that she has past history of diverticulitis and has been told she should have surgery because of the condition. Pt. notififed of earlier cardiology appnt. 01/05/2011 Appointment: Lizzette Lozano WPtel: [address] [place], [place] [id number] ACUTE ILLNESS 01/05/2011 Patient Education: Patient Medication Summary Completed 01/05/2011 Visit Plan: Once again stressed imp ortance of using premarin vaginal cream routinely to see if helps urinary symptoms Will culture urine Will observe lipomas--discussed may see surgery for removal 11/16/2010 Appointment: Yaima Johnsontel: [address] [place] [address] ACUTE ILLNESS 11/16/2010 Patient Education: Patient Medication Summary Completed 11/16/2010 Visit Plan: Injection to bursa as a escobar Pt will continue to moniter BP and pulse off meds Repeat potassium level in 1wk 11/04/2010 Appointment: Yaima Johnsontel: [address] [place] [address] FOLLOW UP 11/04/2010 Patient Education: Patient Medication Summary Completed 11/04/2010 Visit Plan: Saline nasal flushes pr n. Tylenol/Motrin prn headache. Notify if persists/symptoms worsening. 08/05/2010 Appointment: Yaima Johnsontel: [address] [place] [address] FOLLOW UP 08/05/2010 Patient Education: Patient Medication Summary Completed 08/05/2010 Visit Plan: Saline nasal flushes pr n. Tylenol/Motrin prn headache. Notify if persists/symptoms worsening. Nasacort AQ 1 spray each nostril BID 07/23/2010 Appointment: Yaiam Johnson WPtel: [address] [place], [place] [phone] ACUTE ILLNESS 07/23/2010 Patient Education: Patient Medication Summary Completed 07/23/2010 Appointment: Yaima Johnsontel: [address] [place], [place] [id number] UA 07/05/2010 Patient Education: Patient Medication Summary Completed 07/05/2010 Appointment: Yaima Johnson WPtel: [address] [place], [place] [id number] [place] BP CHECK 06/28/2010 Patient Education: Patient Medication Summary Completed 06/28/2010 Appointment: Yaima Johnson WPtel: [address] [place], [place] [phone] [place] UA 06/14/2010 Appointment: Yaima Johnson WPtel: [address] [place], [place] [phone] [place] BP CHECK 06/14/2010 Appointment: Yaima Johnson WPtel: [address] [place], [place] [phone] [place] BP CHECK 06/14/2010 Patient Education: Patient Medication Summary Completed 06/14/2010 Patient Education: Patient Medication Summary Completed 06/14/2010 Appointment: Yaima Johnson WPtel: [address] [place], [place] [phone] BP CHECK 06/10/2010 Visit Plan: Decrease lisinopril hct to 10/12.5mg QD and moniter BP BP check in 2-3wks--if pulse is increasing will go back to bystolic See ENT to evaluate hoarseness 06/07/2010 Appointment: Yaima Johnson WPtel: [address] [place], [place] [phone] FOLLOW UP 06/07/2010 Patient Education: Patient Medication Summary Completed 06/07/2010 Visit Plan: BP re-check is 130/90. Will hold Bystolic and take Lisinopril/HCTZ for approx. one month. Pt. 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 Follow up in one month. Pt [facility] just [facility] for [facility] and given several medications for back injury. (See printoff) 05/12/2010 Appointment: Lizzette Lozano WPtel: [address] [place], [place] [phone] ACUTE ILLNESS 05/12/2010 Patient Education: Patient Medication Summary Completed 05/12/2010 Visit Plan: Continue Bentyl at QAC and HS Continue protonix but increase to BID for 5-7 days If any fever or signs of divertuclitis develop notify 04/27/2010 Appointment: Yaima Johnson WPtel: [address] [place] [address] ACUTE ILLNESS 04/27/2010 Patient Education: Patient Medication Summary Completed 04/27/2010 Visit Plan: flako note. Refils . Alprazolam #90, -written RX 04/19/2010 Appointment: Lizzette Lozano WPtel: [address] [place] [address] ACUTE ILLNESS 04/19/2010 Patient Education: Patient Medication Summary Completed 04/19/2010 Appointment: Yaima Johnson WPtel: [address] [place] [address] LAB 04/12/2010 Patient Education: Patient Medication Summary Completed 04/12/2010 Appointment: Yaima Johnson WPtel: [address] [place] [address] UA 04/08/2010 Patient Education: Patient Medication Summary Completed 04/08/2010 Visit Plan: Use Treximet prn Start daily Macrobid Restart premarin vaginal cream Flu shot given 03/09/2010 Appointment: Yaima Johnson WPtel: [address] [place] [address] FOLLOW UP 03/09/2010 Patient Education: Patient Medication Summary Completed 03/09/2010 Appointment: Yaima Johnson WPtel: [address] [place] [address] BP CHECK 01/19/2010 Patient Education: Patient Medication Summary Completed 01/19/2010 Visit Plan: Check CT head Increase Bystolic to 5mg QD BP check in 2wks 01/04/2010 Appointment: Yaima Johnson WPtel: [address] [place] [address] ACUTE ILLNESS 01/04/2010 Patient Education: Patient Medication Summary Completed 01/04/2010 Appointment: Yaima Johnson WPtel: [address] [place], [place] [id number] BP CHECK 12/21/2009 Patient Education: Patient Medication Summary Completed 12/21/2009 Visit Plan: Change cenestin back to Premarin Cont to moniter BP BP check in 1wk 12/14/2009 Appointment: Yaima Johnson WPtel: [address] [place], [place] [phone] FOLLOW UP 12/14/2009 Patient Education: Patient Medication Summary Completed 12/14/2009 Visit Plan: Pt. was given Amoxicill in 500 mg TID for 10 days at the Urgent Care and a Steroid shot. Pt. reports moderate improvement in her ears and throat but that the cough is relatively unchanged. Discussed with the pt. that we should give the antibiotics 3-5 days to work and see if she experiences improvement in her symptoms. Pt. will phone on Monday if her symptoms have not improved or earlier if worsening symptoms. Will most likely try a cephalosporin or Macrolyde if no improvement. Possibly a Z-pack. 11/23/2009 Visit Plan: Pt. was given Amoxicill in 500 mg TID for 10 days at the Urgent Care and a Steroid shot. Pt. reports moderate improvement in her ears and throat but that the cough is relatively unchanged. Discussed with the pt. that we should give the antibiotics 3-5 days to work and see if she experiences improvement in her symptoms. Pt. will phone on Monday if her symptoms have not improved or earlier if worsening symptoms. Will most likely try a cephalosporing or Macrolyde if no improvement. Possibly a Z-pack. 11/23/2009 Appointment: Lizzette Lozano WPtel: [address] [place], [place] [id number] [place] FOLLOW UP 11/23/2009 Patient Education: Patient Medication Summary Completed 11/23/2009 Appointment: Yaima Johnson WPtel: [address] [place], [place] [id number] [place] LAB 09/29/2009 Patient Education: Patient Medication Summary Completed 09/29/2009 Appointment: Yaima Johnson WPtel: [address] [id number] [place] LAB 08/12/2009 Patient Education: Patient Medication Summary Completed 08/12/2009 Referral: Richmond Berger WPtel: [address] [id number] [place] Referral Appointment Requested Referral: Jayce Boyce WPtel: [address] [id number] [place] Referral Appointment Requested Referral: Naldo Johnson WPtel: [address] [id number] [place] Referral Initiated Referral: Naldo Johnson WPtel: [address] [id number] [place] Referral Appointment Requested Instructions Comment . hydration stop benadryl Observe and monitor Headaches Leg stretches, going to PT today-have them show stretches Notify if headaches, leg pain return/persist . Pt. was given Amox icillin 500 mg TID for 10 days at the Urgent Care and a Steroid shot. Pt. reports moderate improvement in her ears and throat but that the cough is relatively unchanged. Discussed with the pt. that we should give the antibiotics 3-5 days to work and see if she experiences improvement in her symptoms. Pt. will phone on Monday if her symptoms have not improved or earlier if worsening symptoms. Will most likely try a cephalosporin or Macrolyde if no improvement. Possibly a Z-pack. . Pt. was given Amox icillin 500 mg TID for 10 days at the Urgent Care and a Steroid shot. Pt. reports moderate improvement in her ears and throat but that the cough is relatively unchanged. Discussed with the pt. that we should give the antibiotics 3-5 days to work and see if she experiences improvement in her symptoms. Pt. will phone on Monday if her symptoms have not improved or earlier if worsening symptoms. Will most likely try a cephalosporing or Macrolyde if no improvement. Possibly a Z-pack. . Observe left elbow for next 2 weeks and if not improving let us know Observe left leg bruising Can use voltaren gel to elbow Observe ribs Lidoderm patch for SI joint . Start PT for both right leg sciatica and thoracics for chest pain . will notify if sym tpoms worsen on finger. Septra DS and mupirocin (pt thinks has some from last year) Will keep covered with band aid. Pt to continue Vimovo, skelaxin and biofreeze. Pt. states was unaware she should be taking these despite instructions to do so at Dr. Johnson visit on 05 Oct 2012. . OMT done Daily stretches, biofreeze Restart skelaxin . Saline nasal flush es prn. Tylenol/Motrin prn headache. Notify if persists/symptoms worsening. Nasacort AQ 1 spray each nostril BID . Saline nasal flush es prn. Tylenol/Motrin prn headache. Notify if persists/symptoms worsening. . Saline nasal flush es prn. Tylenol/Motrin prn headache. Notify if persists/symptoms worsening. . BP re-check is 130 /90. Will hold Bystolic and take Lisinopril/HCTZ for approx. one month. Pt. is advised to check her blood pressure at least twice weekly at home as she reports that she has a home m onitor. Follow up in one month. Pt was just seen [facility] today for [facility] and given several medications for back injury. (See printoff) . Discussed CT resul ts Add Miralax 1/2 cap every other day . Discussed CT resul ts Add Miralax 1/2 cap every other day . Injection to bursa as above Pt will continue to moniter BP and pulse off meds Repeat potassium level in 1wk . Decrease premarin to 0.3125mg for 1week then stop Restart estrogen vaginal tabs and Patient requests to see Dr. Restrepo for back but discussed at this time appears to need conservative management such as PT and epidurals Moniter BP . Decrease levothyro xine to 50mcg daily Recheck TSH and Free T4 in 2mos then fwup . Saline nasal flus hes prn. Tylenol/Motrin prn headache. Notify if persists/symptoms worsening. Zithromax and Prednisone Supportive care. Rest, Fluids, Tylenol/Motrin prn fever or bodyaches. Notify if worsening symptoms. . Calmoseptine to ir ritated groin area Discussed that liver lesion and right kidney cyst are stable dating back to 2009 so likely benign and will recheck in 1year Check CMP and CBC . Calmoseptine to ir ritated groin area Discussed that liver lesion and right kidney cyst are stable dating back to 2009 so likely benign and will recheck in 1year . Continue Bentyl at QAC and HS Continue protonix but increase to BID for 5-7 days If any fever or signs of divertuclitis develop notify . Change cenestin ba ck to Premarin Cont to moniter BP BP check in 1wk . Increase Protonix to 40mg po BID Add Bentyl 10mg BID and up to TID prn Patient goes for back injection in 3 weeks Fwup 1 week after back injection . Spoke with Dr. Sacha banerjee's office and have arranged for an earlier appnt. on Jan 20 at 3:20. Pt. is sent for venous doppler and EKG. Discussed that if her chest pain or abdominal pain worsens she may need to seek re-eval. Pt. should monitor for fever as she reports that she has past history of diverticulitis and has been told she should have surgery because of the condition. Pt. notififed of earlier cardiology appnt. . Discussed core str engthening for both hernia and low back Keep stools soft so continue fiber and may add 1/4 dose of miralax 3 times a week Discussed incarceration or strangulation of hernia signs Will change protonix to pepcid 40mg daily next month and see how does . Once again stresse d importance of using premarin vaginal cream routinely to see if helps urinary symptoms Will culture urine Will observe lipomas--discussed may see surgery for removal . OMT done Increase Skelaxin to TID Start PT Daily stretches . Thoracic stretches daily Skelaxin 800mg BID Use vimovo prn Use gemma prn . Decrease lisinopri l hct to 10/12.5mg QD and moniter BP BP check in 2-3wks--if pulse is increasing will go back to bystolic See ENT to evaluate hoarseness . Add miralax Cipro/Flagyl Pt has appointment with GI in NOV . Recommend proceed with heart cath Will check PFTs . culturelle note. Refils. Alprazolam #90, -written RX . OMT done to back Stretches, moist heat and biofreeze Observe toenails . Levothyroxine 50mc g po daily . Finish current abx Clear liquids to full liquids and then advance as tolerated If worsens will notify immediately Schedule with Dr. Berger for colonoscopy/EGD . Vaginal ring unabl e to be inserted do will have to stick with pill vaginally as prescribed for at least 6mo trial Saline nasal flushes and restart flonase . [place] Stretches, ice, voltaren gel TID . Check CT head Increase Bystolic to 5mg QD BP check in 2wks . Observe left leg keep meds same Has scheduled for 2nd epidural Recheck 3-4weeks after next epidural . Check CT scan of a bdomen and pelvis with oral contrast Thoracic towel stretch . Change toprol back to bystolic BP check in 3wks Continue to observe hands--no observed bruising today . Lab discussed--jens l keep thyroid dose the same Start back daily stretches Start carpal tunnel brace for left hand--for sleep, long drives and repetitive activities Increase protonix back up to BID and see Dr. Berger for EGD due to ongoing problems and history of esophageal stricture May use voltaren gel to right SI joint and left knee . Vimovo every other day Spica wrist splint to right hand Increase levothyroxine to 75mcg daily Continue wide width shoes Will obtain most recent scope results and see if EGD was done in Jul of this year--pt has had to have esophageal dilation in past Salin spray to nares--bleeding is improving . Continue current d ose Check TSH, Free T4 in 2mos . Proceed with EMG o f RUE Continue vimovo and skelaxin May use Voltaren gel TID to elbow and wrist . Mupirocin topical and Septra DS. . Saline nasal flush es prn. Tylenol/Motrin prn headache. Notify if persists/symptoms worsening. . Continue vimovo an d Skelaxin and topical biofreeze Start PT May need MRI . Take treximet toda y and skelaxin at bedtime Add anusol cream for 1wk Discussed if colon continues to flare-up over the next 6mos will repeat colonoscopy . Finish Flagyl Continue Culturelle and add Levbid for 1more week . Use Treximet prn Start daily Macrobid Restart premarin vaginal cream Flu shot given
--- OUTSIDE RECORDS SUMMARY | 2019-08-15 06:17 | XMS REPORT | CCD ---
Author Author Fay Johnson D.O. 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 Name Role Phone Yiama Johnson D.O., PP Unavailable CCM Unavailable Summary Purpose Interface Exchange Insurance Providers Payer name Policy type / Coverage type Covered libertarian ID Effective Begin Date Effective End Date WPS MEDIC[place] Medicare Part B [id number] 2018 Unknown [facility] Medicare Part B [id number] 2018 Unknown Family History Family History data not found Social History Social History Element Codes Description Effective Dates Marital status Unknown M arried 05/16/[address]: 572859402 Never smoker 04/05/2011 Allergies, Adverse Reactions, Alerts Substance Reaction Codes Entered Date Inactivated Date Status * NO KNOWN FOOD ARMANDO RGIES Unknown 11/23/2009 No Inactive Date Active _ Unknown 11/23/2009 No Inactive Date Active _ Unknown 11/23/2009 No Inactive Date Active Past Medical History Illness Codes Condition Status Onset Date Resolved Date Hematuria, unspecified ICD-9: 599.70 ICD-10: R31.9 Active [...] ICD-9: 591 ICD-10: N28.89 Active 11/25/2015 Unknown Pain in thoracic spine ICD-9: 724.1 ICD-10: M54.6 Active 03/05/2014 Unknown Precordial pain ICD-9: 786.50 ICD-10: R07.2 [...] Condition Codes Effectiv e Dates Condition Status Hematuria, unspecified ICD-9: 599.70 ICD-10: R31.9 11/01/2018 [...] ureter ICD-9: 591 ICD-10: N28.89 11/25/2015 Active Pain in thoracic spine ICD-9: 724.1 ICD-10: M54.6 03/05/2014 Active Precordial pain ICD-9: 786.50 ICD-10: R07.2 [...] Fill Instructions Mobic 7.5 mg tablet RxNorm: 015741 1 Tablet(s) PO QOD opposite days as alev e 11/21/2018 11/21/2018 In active dicyclomine 10 mg ca psule RxNorm: 594463 1 Capsule(s) PO TID a s needed for abdominal pain 08/23/2018 No Stop Date Active alprazolam 0.25 mg t ablet RxNorm: 330673 1 Tablet(s) PO Q8H as needed for anxiety 08/10/2018 11/20/2018 In active [AttnRPh: Saving apply/adjudicate RxGRP: SG20 RxBIN:[id number] RxPCN: ID#:[id number]] levothyroxine 25 mcg tablet RxNorm: 335299 1 Tablet(s) PO QD rep laces 50mcg dose 08/06/2018 10/04/2018 In active levothyroxine 25 mcg tablet RxNorm: 025227 1 Tablet(s) PO QD rep laces 50mcg dose 08/06/2018 08/05/2018 In active levothyroxine 50 mcg tablet RxNorm: 897897 1 Tablet(s) PO QD 07/26/2018 08/05/2018 Inactive Generic For:*SYNTHROID 0.05MG TAB 08/09 8:59:33 AM Mobic 7.5 mg tablet RxNorm: 560272 1 Tablet(s) PO QOD opposite days as alev e 07/10/2018 09/07/2018 In active Mobic 7.5 mg tablet RxNorm: 803163 1 Tablet(s) PO QD 07/10/2018 07/09/2018 Inactive Toprol XL 25 mg tabl et,extended release RxNorm: 521704 1 Tablet(s) PO QD 06/18/2018 03/14/2019 Ac tive Generic For:TOPROL XL 25MG TAB SA 2015 9:08:41 AM amoxicillin 500 mg c apsule RxNorm: 043918 1 Capsule(s) PO TID 06/04/2018 06/10/2018 Inactive amoxicillin 500 mg c apsule RxNorm: 500765 1 Capsule(s) PO TID 06/04/2018 06/03/2018 Inactive Skelaxin 800 mg tablet RxNorm: 948925 1 Tablet(s) PO BID as needed for muscle spasm 05/31/2018 No Stop Date Active levothyroxine 50 mcg tablet RxNorm: 980344 1 Tablet(s) PO QD 02/02/2018 07/25/2018 Inactive Generic For:*SYNTHROID 0.05MG TAB 08/09 8:59:33 AM Toprol XL 25 mg tabl et,extended release RxNorm: 807928 1 Tablet(s) PO QD 12/19/2017 06/16/2018 In active Generic For:TOPROL XL 25MG TAB SA 12/20 9:08:41 AM ranitidine 150 mg ta blet RxNorm: 789248 1 Tablet(s) PO BID 12/11/2017 05/31/2018 Inactive levothyroxine 50 mcg tablet RxNorm: 481496 1 Tablet(s) PO QD SHIMON E 1 TABLET BY MOUTH EVERY DAY 08/03/2017 02/02/2018 Inactive Generic For:*SYNTHROID 0.05 MG TAB 08/09/2016 8:59:33 AM Singulair 10 mg tablet RxNorm: 261389 1 Tablet(s) PO QHS 07/11/2017 09/10/2017 Inactive dicyclomine 10 mg ca psule RxNorm: 158170 1 Capsule(s) PO TID a s needed for abdominal pain 06/08/2017 08/22/2018 Inactive ranitidine 150 mg ta blet RxNorm: 530193 1 Tablet(s) PO BID 06/08/2017 09/05/2017 Inactive Toprol XL 25 mg tabl et,extended release RxNorm: 217338 1 Tablet(s) PO QD 06/08/2017 12/19/2017 In active Generic For:TOPROL XL 25MG TAB SA 12/20 9:08:41 AM betamethasone diprop ionate 0.05 % topical cream RxNorm: 726783 1 Application TOP QHS 03/28/2017 10/03/2018 Inactive levothyroxine 50 mcg tablet RxNorm: 319658 1 Tablet(s) PO QD SHIMON E 1 TABLET BY MOUTH EVERY DAY 02/03/2017 08/01/2017 Inactive Generic For:*SYNTHROID 0.05 MG TAB 08/09/2016 8:59:33 AM ranitidine 150 mg ta blet RxNorm: 630402 1 Tablet(s) PO BID 12/15/2016 06/08/2017 Inactive Toprol XL 25 mg tabl et,extended release RxNorm: 510716 1 Tablet(s) PO QD 12/15/2016 06/08/2017 In active Generic For:TOPROL XL 25MG TAB SA 12/20 9:08:41 AM ranitidine 150 mg ta blet RxNorm: 739210 1 Tablet(s) PO BID 11/11/2016 12/10/2016 Inactive ranitidine 75 mg tablet RxNorm: 800812 1 Tablet(s) PO QD 10/21/2016 11/10/2016 Inactive ranitidine 75 mg tablet RxNorm: 677917 1 Tablet(s) PO QD 10/21/2016 10/20/2016 Inactive Tamiflu 75 mg capsule RxNorm: 118673 1 Capsule(s) PO BID 09/12/2016 09/16/2016 Inactive Promethegan 25 mg re ctal suppository RxNorm: 491163 1 Suppository RTL Q4H as needed 09/12/2016 03/27/2017 In active levothyroxine 50 mcg tablet RxNorm: 122264 TAKE 1 TABLET BY MOUT H EVERY DAY 08/09/2016 02/03/2017 In active Generic For:*SYNTHROID 0.05MG TAB 08/09 8:59:33 AM famotidine 40 mg tablet RxNorm: 060553 1 Tablet(s) PO BID 07/22/2016 10/20/2016 Inactive clotrimazole-betamet hasone 1 %-0.05 % topical cream RxNorm: 861687 1 Application TOP BID to rash prn--was supposed to be cream not lotion 06/23/2016 03/27/2017 Inactive famotidine 40 mg tablet RxNorm: 300772 1 Tablet(s) PO BID 06/23/2016 07/21/2016 Inactive Toprol XL 25 mg tabl et,extended release RxNorm: 997574 1 Tablet(s) PO QD 06/14/2016 12/15/2016 In active Generic For:TOPROL XL 25MG TAB SA 12/20 9:08:41 AM dicyclomine 10 mg ca psule RxNorm: 689453 1 Capsule(s) PO TID a s needed for abdominal pain 04/26/2016 06/07/2017 Inactive dicyclomine 10 mg ca psule RxNorm: 727387 1 Capsule(s) PO TID a s needed for abdominal pain 04/26/2016 06/08/2017 Inactive famotidine 40 mg tablet RxNorm: 245320 1 Tablet(s) PO QD 04/26/2016 06/22/2016 Inactive Protonix 40 mg table t,delayed release RxNorm: 862787 1 Tablet(s) PO QD 02/05/2016 03/27/2017 In active levothyroxine 50 mcg tablet RxNorm: 057687 1 Tablet(s) PO QD 01/25/2016 07/22/2016 Inactive Toprol XL 25 mg tabl et,extended release RxNorm: 630768 TAKE ONE TABLET BY [facility] EVERY DAY 12/21/2015 06/14/2016 Inactive Generic For:TOPROL XL 25MG TAB SA 12/20 9:08:41 AM Protonix 40 mg table t,delayed release RxNorm: 418146 1 Tablet(s) PO QD 07/27/2015 01/22/2016 In active levothyroxine 50 mcg tablet RxNorm: 691734 1 Tablet(s) PO QD 07/22/2015 01/17/2016 Inactive Phenergan 25 mg rect al suppository RxNorm: 366752 1 Suppository RTL Q4H as needed for nausea and vomiting 07/20/2015 12/08/2015 Inactive Toprol XL 25 mg tabl et,extended release RxNorm: 064249 1 Tablet(s) PO QD 06/15/2015 12/11/2015 In active clotrimazole-betamet hasone 1 %-0.05 % topical cream RxNorm: 983985 1 Application TOP BID to rash prn--was supposed to be cream not lotion 05/20/2015 05/19/2015 Inactive Protonix 40 mg table t,delayed release RxNorm: 573642 1 Tablet(s) 1 Tablet( s) PO QD 04/23/2015 07/27/2015 In active levothyroxine 50 mcg tablet RxNorm: 645747 1 Tablet(s) PO QD 04/23/2015 07/21/2015 Inactive Lidoderm 5 % (700 mg /patch) adhesive patch RxNorm: 7573476 1-2 Unit Dose TOP QD on for 12hrs then off for 12hrs 04/23/2015 03/27/2016 Inactive Miralax 17 gram oral powder packet RxNorm: 807970 1/2 Unit Dose PO ever y other day 03/24/2015 03/29/2015 In active levothyroxine 50 mcg tablet RxNorm: 571904 1 Tablet(s) PO QD 02/19/2015 04/19/2015 Inactive dicyclomine 10 mg ca psule RxNorm: 321289 1 Capsule(s) PO TID a s needed for abdominal pain 02/19/2015 04/25/2016 Inactive dicyclomine 10 mg ca psule RxNorm: 132734 1 Capsule(s) PO TID a s needed for abdominal pain 12/25/2014 02/18/2015 Inactive Protonix 40 mg table t,delayed release RxNorm: 219051 1 Tablet(s) PO BID 12/25/2014 03/04/2015 In active levothyroxine 50 mcg tablet RxNorm: 198742 1 Tablet(s) PO QD 12/25/2014 02/18/2015 Inactive Flonase 50 mcg/actua tion nasal spray,suspension RxNorm: 246395 2 [place] NASAL QHS 12/25/2014 10/03/2018 In active [SAVINGS FOR NON-COVERED DRUGS -- BIN:00 3585, PCN: ASPROD1, Group: XXXXX, ID# [id number], Questions: . THIS IS NOT INSURANCE.] Toprol XL 25 mg tabl et,extended release RxNorm: 855016 1 Tablet(s) PO QD 12/01/2014 05/29/2015 In active dicyclomine 10 mg ca psule RxNorm: 855152 1 Capsule(s) PO TID a s needed for abdominal pain 12/01/2014 12/24/2014 Inactive levothyroxine 75 mcg tablet RxNorm: 578152 1 Tablet(s) PO QD 11/10/2014 12/24/2014 Inactive [AttnRPh: Saving apply/adjudicate RxGRP: SG20 RxBIN:[id number] RxPCN: ID#:[id number]] Protonix 40 mg table t,delayed release RxNorm: 209442 1 Tablet(s) BID 1 Tab let(s) PO QD 11/04/2014 12/24/2014 Inactive dicyclomine 10 mg ca psule RxNorm: 194348 1 Capsule(s) PO TID a s needed for abdominal pain 11/04/2014 11/30/2014 Inactive Protonix 40 mg table t,delayed release RxNorm: 962449 Tablet(s) 1 Tablet(s) PO QD 10/14/2014 11/03/2014 In active Flonase 50 mcg/actua tion nasal spray,suspension RxNorm: 821407 2 [place] NASAL QHS 09/01/2014 12/24/2014 In active [SAVINGS FOR NON-COVERED DRUGS -- BIN:00 3585, PCN: ASPROD1, Group: XXXXX, ID# [id number], Questions: . THIS IS NOT INSURANCE.] Toprol XL 25 mg tabl et,extended release RxNorm: 163823 Tablet(s) 1/2 Tablet( s) PO QD 08/28/2014 11/25/2014 Inactive [SAVINGS FOR UNINSURED PATIENTS -- BIN:0 53731, PCN: ASPROD1, Group: [id number], ID# [id number], Process claim through [email or web address], for questions: . THIS IS NOT INSURANCE.] estradiol 0.01% (0.1 mg/gram) vaginal cream RxNorm: 175545 1 Gram(s) VAG Insert vaginally at bedtime, Monday, Monday and Monday06/26/2014 12/24/2014 Inactive Toprol XL 25 mg tabl et,extended release RxNorm: 570204 1/2 Tablet(s) PO QD 06/06/2014 08/27/2014 In active [SAVINGS FOR UNINSURED PATIENTS -- BIN:0 34109, PCN: ASPROD1, Group: [id number], ID# [id number], Process claim through [employer] for questions: . THIS IS NOT INSURANCE.] estradiol 0.5 mg tablet RxNorm: 289508 1 Tablet(s) VAG Place one tablet in the vagina at bedtime three times a week 06/02/2014 06/25/2014 Inactive Estring 2 mg vaginal RxNorm: 591670 VAG Insert vaginally and remove after 90 days 05/27/2014 06/01/2014 Inactive Toprol XL 25 mg tabl et,extended release RxNorm: 961255 1/2 Tablet(s) PO QD 04/15/2014 04/14/2014 In active Protonix 40 mg table t,delayed release RxNorm: 157749 1 Tablet(s) PO QD 04/15/2014 10/14/2014 In active estradiol 0.5 mg tablet RxNorm: 856240 1 Tablet(s) VAG Place one tablet in the vagina at bedtime twice a week 04/15/2014 06/01/2014 Inactive Toprol XL 25 mg tabl et,extended release RxNorm: 390416 1/2 Tablet(s) PO QD 04/15/2014 06/05/2014 In active [SAVINGS FOR UNINSURED PATIENTS -- BIN:0 84493, PCN: ASPROD1, Group: [id number], ID# [id number], Process claim through [employer] for questions: . THIS IS NOT INSURANCE.] levothyroxine 75 mcg tablet RxNorm: 733030 1 Tablet(s) PO QD 04/08/2014 04/07/2014 Inactive [AttnRPh: Saving apply/adjudicate RxGRP: SG20 RxBIN:[id number] RxPCN: ID#:[id number]] Flonase 50 mcg/actua tion nasal spray,suspension RxNorm: 175540 1 [place] NASAL BID 04/08/2014 08/31/2014 In active levothyroxine 75 mcg tablet RxNorm: 221769 1 Tablet(s) PO QD 04/08/2014 10/04/2014 Inactive [AttnRPh: Saving apply/adjudicate RxGRP: SG20 RxBIN:[id number] RxPCN: ID#:[id number]] estradiol 0.5 mg tablet RxNorm: 201606 Tablet(s) PO Place one tablet in the vag [place] at bedtime one time weekly 04/08/2014 04/07/2014 Inactive levothyroxine 75 mcg tablet RxNorm: 642091 1 Tablet(s) PO QD 03/20/2014 04/07/2014 Inactive [AttnRPh: Saving apply/adjudicate RxGRP: SG20 RxBIN:[id number] RxPCN: ID#:[id number]] Skelaxin 800 mg tablet RxNorm: 757728 1 Tablet(s) PO TID as needed for muscle spasm 03/05/2014 11/03/2014 Inactive alprazolam 0.25 mg t ablet RxNorm: 309847 1 Tablet(s) PO Q8H as needed for anxiety 02/27/2014 08/05/2018 In active [AttnRPh: Saving apply/adjudicate RxGRP: SG20 RxBIN:[id number] RxPCN:HT ID#:[id number]] Synthroid 75 mcg tablet RxNorm: 580358 1 Tablet(s) PO QD 11/29/2013 11/03/2014 Inactive levothyroxine 75 mcg tablet RxNorm: 874971 1 Tablet(s) PO QD -Ne ed labs 11/27/2013 03/19/2014 In active [AttnRPh: Saving apply/adjudicate RxGRP: SG20 RxBIN:[id number] RxPCN: ID#:[id number]] Protonix 40 mg table t,delayed release RxNorm: 305905 1 Tablet(s) PO QD 10/07/2013 04/04/2014 In active Synthroid 75 mcg tablet RxNorm: 711248 1 Tablet(s) PO QD 09/02/2013 11/28/2013 Inactive Zithromax 500 mg tablet RxNorm: 183104 1 Tablet(s) PO QD 07/29/2013 08/04/2013 Inactive prednisone 20 mg tablet RxNorm: 218966 1 Tablet(s) PO QD 07/29/2013 08/02/2013 Inactive Synthroid 75 mcg tablet RxNorm: 521542 1 Tablet(s) PO QD Patient wants it put o n hold 05/14/2013 09/02/2013 Inactive Synthroid 75 mcg tablet RxNorm: 566154 1 Tablet(s) PO QD 05/01/2013 05/13/2013 Inactive Flagyl 500 mg tablet RxNorm: 592088 1 Tablet(s) PO BID 03/20/2013 04/02/2013 Inactive Cipro 500 mg tablet RxNorm: 972094 1 Tablet(s) PO QD 03/20/2013 04/02/2013 Inactive levothyroxine 75 mcg tablet RxNorm: 115596 1 Tablet(s) PO QD 11/05/2012 05/03/2013 Inactive Septra DS 800 mg-160 mg tablet RxNorm: 099124 1 Tablet(s) PO BID an tibiotic 11/05/2012 11/09/2012 In active Bystolic 5 mg tablet RxNorm: 275430 1 Tablet(s) PO QD 10/10/2012 08/05/2018 Inactive Bystolic 5 mg tablet RxNorm: 524442 1 Tablet(s) PO QD 10/10/2012 02/11/2013 Inactive Protonix 40 mg table t,delayed release RxNorm: 226898 1 Tablet(s) PO QD 09/24/2012 09/18/2013 In active Synthroid 75 mcg tablet RxNorm: 587546 1 Tablet(s) PO QD 08/01/2012 09/23/2012 Inactive Synthroid 75 mcg tablet RxNorm: 131199 1 Tablet(s) PO QD Brand name only 07/03/2012 07/31/2012 In active Skelaxin 800 mg tablet RxNorm: 485763 1 Tablet(s) PO TID prn spasm 05/02/2012 03/04/2014 Inactive Zithromax Z-Leonel 250 mg tablet RxNorm: 635032 Tablet(s) PO As Direc sheridan 04/12/2012 05/01/2012 In active levothyroxine 75 mcg tablet RxNorm: 180342 1 Tablet(s) PO QD 04/03/2012 08/05/2018 Inactive levothyroxine 75 mcg tablet RxNorm: 940813 1 Tablet(s) PO QD 04/03/2012 07/01/2012 Inactive Ultram 50 mg tablet RxNorm: 965769 1-2 Tablet(s) PO TID as needed for migra ine 04/03/2012 11/03/2014 In active Vimovo 500 mg-20 mg tablets,immediate & delayed release RxNorm: 702829 1 Tablet(s) PO BID for pain 03/28/2012 07/25/2012 Inactive levothyroxine 75 mcg tablet RxNorm: 868321 1 Tablet(s) PO QD 03/07/2012 04/02/2012 Inactive levothyroxine 50 mcg tablet RxNorm: 844922 1 Tablet(s) PO QD 02/01/2012 09/23/2012 Inactive levothyroxine 50 mcg tablet RxNorm: 703850 1 Tablet(s) PO QD 12/20/2011 01/31/2012 Inactive Septra DS 800 mg-160 mg Tab RxNorm: 563479 1 Tablet(s) PO BID 11/22/2011 11/26/2011 Inactive mupirocin 2 % Ointment RxNorm: 872521 1 Application TOP TID 11/22/2011 11/28/2011 Inactive Protonix 40 mg table t,delayed release RxNorm: 601333 1 Tablet(s) PO QD 09/13/2011 09/24/2012 In active hydrocodone-acetamin ophen 5 mg-500 mg Tab RxNorm: 820993 1 Tablet(s) PO Q4-6H as needed for pain 07/13/2011 11/21/2011 Inactive Skelaxin 800 mg tablet RxNorm: 519520 1 Tablet(s) PO TID prn spasm 06/30/2011 11/21/2011 Inactive Skelaxin 800 mg Tab RxNorm: 229955 1 Tablet(s) PO TID prn spasm 05/23/2011 No Stop Date Active potassium chloride E R 10 mEq Cap RxNorm: 6756341 2 Capsule(s) PO QD 12/30/2010 01/30/2011 Inactive potassium chloride E R 10 mEq Cap RxNorm: 1354582 1 Capsule(s) PO QD 12/29/2010 12/29/2010 Inactive Take 2 tablets by mouth on Monday, , Monday and 1 tablet by mouth on Monday, , Monday and Monday Premarin 0.9 mg Tab RxNorm: 805876 1 Tablet(s) PO QD 12/09/2010 01/07/2011 Inactive potassium chloride E R 10 mEq Cap RxNorm: 9454151 1 Capsule(s) PO QD 12/07/2010 No Stop Date Active Take 2 tablets by mouth on Monday, , Monday and 1 tablet by mouth on Monday, , Monday and Monday promethazine 12.5 mg Rectal Suppository RxNorm: 100291 1 Application RTL Q6- 8H 12/07/2010 12/16/2010 In active prn nausea and vomiting potassium chloride E R 10 mEq Cap RxNorm: 5832165 1 Capsule(s) PO QD 12/03/2010 No Stop Date Active MWF take 2 tablets daily. Take one tabl et daily on other days. Protonix 40 mg Tab RxNorm: 408042 1 Tablet(s) PO QD 09/27/2010 09/13/2011 Inactive cefdinir 300 mg Cap RxNorm: 747660 2 Capsule(s) PO QD 08/05/2010 08/04/2010 Inactive cefdinir 300 mg Cap RxNorm: 391151 2 Capsule(s) PO QD 08/05/2010 08/14/2010 Inactive Premarin 1.25 mg Tab RxNorm: 642247 1 Tablet(s) PO QD 06/14/2010 12/09/2010 Inactive lisinopril-hydrochlo rothiazide 10 mg-12.5 mg Tab RxNorm: 075142 1 Tablet(s) PO 06/07/2010 11/04/2010 In active alprazolam 0.25 mg Tab RxNorm: 216065 1 Tablet(s) PO TID written script provid ed to patient. 05/24/2010 06/22/2010 Inactive Treximet 85 mg-500 m g Tab RxNorm: 235014 1 Tablet(s) PO PRN 05/12/2010 09/23/2012 Inactive lisinopril-hydrochlo rothiazide 20 mg-12.5 mg Tab RxNorm: 254484 1 Tablet(s) PO QD 05/12/2010 11/04/2010 In active alprazolam 0.25 mg Tab RxNorm: 113762 1 Tablet(s) PO TID written script provid ed to patient. 04/19/2010 05/23/2010 Inactive Macrobid 100 mg Cap RxNorm: 4175928 1 Capsule(s) PO BID 04/08/2010 04/17/2010 Inactive Premarin 1.25 mg Tab RxNorm: 937003 1 Tablet(s) PO QD 03/22/2010 06/13/2010 Inactive Amitriptyline 10 mg Tab RxNorm: 202188 1 Tablet(s) PO QD 03/22/2010 06/19/2010 Inactive Protonix 40 mg Tab RxNorm: 929589 1 Tablet(s) PO QD 03/22/2010 06/19/2010 Inactive alprazolam 0.25 mg Tab RxNorm: 963187 1 Tablet(s) PO TID 03/10/2010 04/08/2010 Inactive Macrobid 100 mg Cap RxNorm: 8636728 1 Capsule(s) PO QD 03/09/2010 04/26/2010 Inactive Bystolic 5 mg Tab RxNorm: 709570 1 Tablet(s) PO QD Fill at 30 if insuranc e will not accept 03/01/2010 11/04/2010 Inactive Protonix 40 mg Tab RxNorm: 219329 1 Tablet(s) PO QD 11/23/2009 12/22/2009 Inactive Premarin 1.25 mg Tab RxNorm: 315101 1 Tablet(s) PO QD 11/23/2009 12/13/2009 Inactive Bentyl 10 mg Cap RxNorm: 578334 1 Capsule(s) PO QID 11/23/2009 11/15/2010 Inactive Elavil 10 mg Tab RxNorm: 583268 1 Tablet(s) PO QPM 11/19/2009 11/15/2010 Inactive Cranberry Concentrat e capsule RxNorm: 1 Capsule(s) PO QD No Start Date Active Estrace 0.01% (0.1 m g/gram) vaginal cream RxNorm: 785678 1 Application VAG wee kly No Start Date Active Xyzal 5 mg tablet RxNorm: 501940 1 Tablet(s) PO QD No Start Date Active Protonix 40 mg table t,delayed release RxNorm: 112569 1 Tablet(s) PO QD No Start Date Active fluticasone propiona te 50 mcg/actuation nasal spray,suspension RxNorm: 7213425 2 [place] NASAL QD No Start Date Active Vitamin D3 2,000 uni t tablet RxNorm: 634589 1 Tablet(s) PO QD No Start Date Active levothyroxine 50 mcg tablet RxNorm: 274587 1 Tablet(s) PO QD No Start Date Active BIOFREEZE Top RxNorm: Topical No Start Date Active meloxicam 15 mg tablet RxNorm: 224495 1 Tablet(s) PO QD as needed No Start Date Active multivitamin chewabl e tablet RxNorm: 1 Tablet(s) PO QD No Start Date Active Estring 2 mg vaginal RxNorm: 911462 VAG Insert vaginally and remove after 90 days No Start Date 05/26/2014 Inactive Premarin 0.625 mg ta blet RxNorm: 135765 1 Tablet(s) PO QD No Start Date 04/07/2014 Inactive Miralax 17 gram/dose oral powder RxNorm: 680680 1 capful PO QD No Start Date 08/05/2018 Inactive diazepam 5 mg tablet RxNorm: 265185 2 Tablet(s) PO before MRI No Start Date 10/03/2018 Inactive Protonix 40 mg table t,delayed release RxNorm: 783843 1 Tablet(s) PO QD No Start Date 07/26/2015 Inactive B12 sublingual RxNorm: 81867 sublingual No Start Date 03/27/2017 Inactive Treximet 85 mg-500 m g Tab RxNorm: 366022 Tablet(s) PO PRN No Start Date 05/11/2010 Inactive Gemma 180 mg Tab RxNorm: 798176 1 Tablet(s) PO QD No Start Date 12/19/2011 Inactive Gemma Allergy 180 mg tablet RxNorm: 200808 1 Tablet(s) PO QD No Start Date 08/31/2014 Inactive estradiol 0.01% (0.1 mg/gram) vaginal cream RxNorm: 591878 1 Gram(s) VAG Insert vaginally at bedtime, Monday, Monday and Monday No Start Date 06/25/2014 Inactive Tylenol Ex Str Arthr itis Pain 500 mg tablet RxNorm: 517782 2 Tablet(s) PO TID No Start Date 08/05/2018 Inactive Toprol XL 25 mg tabl et,extended release RxNorm: 170554 1 Tablet(s) PO QD No Start Date 11/30/2014 Inactive Ultram 50 mg tablet RxNorm: 215025 1-2 Tablet(s) PO TID as needed for migra ine No Start Date 04/02/2012 Inactive Premarin 0.9 mg Tab RxNorm: 296194 1 Tablet(s) PO QD No Start Date 12/19/2011 Inactive Bystolic 5 mg Tab RxNorm: 622105 1/2 Tablet(s) PO QD No Start Date 02/28/2010 Inactive Ondansetron HCl 4 mg Tab RxNorm: 402394 1 Tablet(s) PO TID or every 8hrs as needed for nausea No Start Date 11/21/2011 Inactive Protonix 40 mg table t,delayed release RxNorm: 495976 1 Tablet(s) PO BID No Start Date 12/24/2014 Inactive potassium chloride E R 10 mEq Cap RxNorm: 9469910 1 Capsule(s) PO QD No Start Date 12/02/2010 Inactive Miralax 17 gram/dose oral powder RxNorm: 170645 1 capful PO QD No Start Date 03/29/2015 Inactive levothyroxine 75 mcg tablet RxNorm: 494377 1 Tablet(s) PO QD six days a week No Start Date 12/24/2014 Inactive Cenestin 1.25 mg Tab RxNorm: 734273 1 Tablet(s) PO QD No Start Date 01/03/2010 Inactive calcium-vitamin D3 5 00 mg oral wafer RxNorm: 1 Tablet(s) PO QD No Start Date 12/08/2015 Inactive Vimovo 500 mg-20 mg tablet,immediate & delayed release RxNorm: 676555 1 Tablet(s) PO QD No Start Date 11/03/2014 Inactive alprazolam 0.25 mg t ablet RxNorm: 393543 1 Tablet(s) PO Q8H as needed for anxiety/stress No Start Date 12/24/2014 Inactive betamethasone diprop ionate 0.05 % topical cream RxNorm: 402105 1 Application TOP QHS No Start Date 03/27/2017 Inactive cetirizine 10 mg cap verito RxNorm: 9018374 1 Capsule(s) PO QD No Start Date 09/10/2017 Inactive Skelaxin 800 mg Tab RxNorm: 769562 Tablet(s) PO PRN No Start Date 11/15/2010 Inactive Zithromax Z-Leonel 250 mg tablet RxNorm: 601089 Tablet(s) PO As Direc sheridan No Start Date 04/11/2012 Inactive Zithromax Z-Leonel 250 mg Tab RxNorm: 023668 Tablet(s) PO as directed No Start Date 11/15/2010 Inactive Gemma 180 mg tablet RxNorm: 368816 1 Tablet(s) PO QD No Start Date 12/24/2014 Inactive Anusol-HC 2.5 % Rect al Cream RxNorm: 916431 Application RTL BID f or 1wk No Start Date 12/19/2011 Inactive metoprolol succinate ER 25 mg 24 hr Tab RxNorm: 455698 1/2 Tablet(s) PO QD No Start Date 10/03/2012 Inactive clotrimazole-betamet hasone 1 %-0.05 % Lotion RxNorm: 519331 Application TOP BID t o rash No Start Date 05/15/2011 Inactive ranitidine 150 mg ta blet RxNorm: 010858 1 Tablet(s) PO QD No Start Date 12/06/2018 Inactive ranitidine 150 mg ta blet RxNorm: 948520 1 Tablet(s) PO BID No Start Date 11/10/2016 Inactive promethazine 12.5 mg Rectal Suppository RxNorm: 699008 1 Application RTL Q6- 8H No Start Date 12/06/2010 Inactive Maxalt-TRANSMISSION 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 SUPERVISOR 10 mg dis integrating tablet RxNorm: 209359 1 Tablet(s) PO at [facility] onset--may repeat in 2hrs if needed No Start Date 12/24/2014 Inactive Benadryl 25 mg capsule RxNorm: 8924854 Capsule(s) PO as needed No Start Date 12/24/2014 Inactive Cranberry Concentrat e 500 mg capsule RxNorm: 027359 1 Capsule(s) PO QD No Start Date 09/10/2017 Inactive Mobic 15 mg tablet RxNorm: 547773 1 Tablet(s) PO on opposite days of Aleve No Start Date 11/20/2018 Inactive Bystolic 5 mg tablet RxNorm: 759375 1 Tablet(s) PO QD No Start Date 10/09/2012 Inactive Premarin 1.25 mg Tab RxNorm: 588473 1 Tablet(s) PO QD No Start Date 03/21/2010 Inactive clotrimazole-betamet hasone 1 %-0.05 % topical cream RxNorm: 625384 Application TOP BID to rash prn--was supposed to be cream not lotion No Start Date 12/19/2011 Inactive azithromycin 250 mg Tab RxNorm: 921902 2 Tablet(s) PO QD take 2 tablets (500 mg ) by oral route once daily for 1 day then 1 tablet (250 mg) by oral route once daily for 4 days No Start Date 06/06/2010 Inactive hydrocodone-acetamin ophen 5 mg-500 mg Tab RxNorm: 174251 1 Tablet(s) PO Q4-6H as needed for pain No Start Date 07/12/2011 Inactive Levbid 0.375 mg 12 h r Tab RxNorm: 4478578 1 Tablet(s) PO BID a s needed for stomach cramping No Start Date 11/21/2011 Inactive Phenergan 25 mg rect al suppository RxNorm: 319610 1 Suppository RTL Q4H as needed for nausea and vomiting No Start Date 07/19/2015 Inactive baclofen 10 mg tablet RxNorm: 322249 1 Tablet(s) PO QHS No Start Date 11/03/2014 Inactive loratadine 10 mg tablet RxNorm: 427673 1 Tablet(s) PO QD No Start Date 10/03/2018 Inactive famotidine 40 mg tablet RxNorm: 750112 1 Tablet(s) PO BID No Start Date 06/22/2016 Inactive Zithromax Z-Leonel 250 mg Tab RxNorm: 072130 Tablet(s) PO as directed No Start Date 11/15/2010 Inactive Singulair 10 mg tablet RxNorm: 051154 1 Tablet(s) PO QHS No Start Date 07/10/2017 Inactive Premarin 0.625 mg/g Vaginal Cream RxNorm: 364595 1 Gram(s) VAG QHS 2-3 times weekly No Start Date 01/05/2011 Inactive Alprazolam 0.25 mg Tab RxNorm: 836917 1 Tablet(s) PO TID No Start Date 03/09/2010 Inactive Claritin 10 mg tablet RxNorm: 269086 1 Tablet(s) PO QD No Start Date [...] completed Assessments Condition Codes Effectiv e Dates Hematuria, unspecified ICD-10: R31.9 ICD-9: 599.70 01/14/2019 [...] elsewhere classified ICD-10: R16.0 ICD-9: 789.1 11/26/2015 Pain in thoracic spine ICD-10: M54.6 ICD-9: 724.1 09/10/2015 Precordial pain ICD-10: R07.2 ICD-9: 786.50 09/10/2015 [...] For Visit Effective Dates Notes back pain 01/14/2019 abdominal pain 01/09/2019 well [...] up 11/26/2014 fatigue 11/04/2014 headache 09/01/2014 Havi ng reactions to allergy shots---instructed to take gemma [...] Rendon would like to proceed with heart cardiac cath lab radiology technologist draw 01/14/2011 shortness of breath 01/05/2011 urinary [...] high blood pressure 06/07/2010 taking lisinopril HCT 24/05.5 follow up 05/12/2010 sti [address] having hoarseness [...] Item Item Code Result Date GFR CALC 6390556 GFR AA >60 ML/MIN 01/14/2011 GFR CALC 0880495 GFR NON -AA >60 ML/MIN 01/14/2011 COMPREHENSIVE METABOLIC 93876 AST 15 U/L 01/14/2011 COMPREHENSIVE METABOLIC 24415 ALT 17 IU/L 01/14/2011 COMPREHENSIVE METABOLIC 44037 BUN 12 MG/DL 01/14/2011 COMPREHENSIVE METABOLIC 43077 ALBUMIN 4.0 GM/DL 01/14/2011 COMPREHENSIVE METABOLIC 38584 CHLORIDE 101 MMOL/L 01/14/2011 COMPREHENSIVE METABOLIC 89290 BILI TOT 0.3 MG/DL 01/14/2011 COMPREHENSIVE METABOLIC 79270 ALK PHOS 53 U/L 01/14/2011 COMPREHENSIVE METABOLIC 82028 SODIUM 136 MMOL/L 01/14/2011 COMPREHENSIVE METABOLIC 59164 CREATININE 0.60 MG/DL 01/14/2011 COMPREHENSIVE METABOLIC 94803 CALCIUM 9.3 MG/DL 01/14/2011 COMPREHENSIVE METABOLIC 46368 POTASSIUM 4.1 MMOL/L 01/14/2011 COMPREHENSIVE METABOLIC 87827 PROT TOT 7.0 GM/DL 01/14/2011 COMPREHENSIVE METABOLIC 46203 Glucose 92 MG/DL 01/14/2011 COMPREHENSIVE METABOLIC 62912 BICARB 27 MMOL/L 01/14/2011 COMPREHENSIVE METABOLIC 99720 ANION GAP 8 MEQ/L 01/14/2011 ERYTHROCYTE SEDIMENTATION RATE 42003 ESR 39 MM/HR 01/05/2011 COMPREHENSIVE METABOLIC 33702 AST 16 U/L 01/05/2011 COMPREHENSIVE METABOLIC 18495 ALT 19 U/L 01/05/2011 COMPREHENSIVE METABOLIC 41572 BUN 15 MG/DL 01/05/2011 COMPREHENSIVE METABOLIC 48933 ALBUMIN 3.8 GM/DL 01/05/2011 COMPREHENSIVE METABOLIC 16790 CHLORIDE 101 MMOL/L 01/05/2011 COMPREHENSIVE METABOLIC 51068 BILI TOT 0.3 MG/DL 01/05/2011 COMPREHENSIVE METABOLIC 40654 ALK PHOS 55 U/L 01/05/2011 COMPREHENSIVE METABOLIC 29652 SODIUM 139 MMOL/L 01/05/2011 COMPREHENSIVE METABOLIC 38855 CREATININE 0.59 MG/DL 01/05/2011 COMPREHENSIVE METABOLIC 67166 CALCIUM 8.9 MG/DL 01/05/2011 COMPREHENSIVE METABOLIC 37349 POTASSIUM 3.8 MMOL/L 01/05/2011 COMPREHENSIVE METABOLIC 17124 PROT TOT 6.7 GM/DL 01/05/2011 COMPREHENSIVE METABOLIC 94301 Glucose 121 MG/DL 01/05/2011 COMPREHENSIVE METABOLIC 72365 BICARB 28 MMOL/L 01/05/2011 COMPREHENSIVE METABOLIC 98182 ANION GAP 10 MMOL/L 01/05/2011 GFR CALC 7870920 GFR AA >60 ML/MIN 01/05/2011 GFR CALC 0983689 GFR NON -AA >60 ML/MIN 01/05/2011 COMPLETE BLOOD COUNT 04838 WBC 8.7 10e9/L 01/05/2011 COMPLETE BLOOD COUNT 51209 RBC 4.78 10e12/L 1 COMPLETE BLOOD COUNT 92959 HGB 13.3 g/dL 01/05/2011 COMPLETE BLOOD COUNT 83500 HCT DET 40.6 % 01/05/2011 COMPLETE BLOOD COUNT 95863 MCV 84.9 fL 01/05/2011 COMPLETE BLOOD COUNT 59742 MCH 27.8 pg 01/05/2011 COMPLETE BLOOD COUNT 59215 MCHC 32.8 g/dL 01/05/2011 COMPLETE BLOOD COUNT 07090 PLT 273 10e9/L 01/05/2011 COMPLETE BLOOD COUNT 81714 MPV 9.8 fL 01/05/2011 COMPLETE BLOOD COUNT 55436 AMANDA % 65.9 % 01/05/2011 COMPLETE BLOOD COUNT 34197 LY % 24.5 % 01/05/2011 COMPLETE BLOOD COUNT 23102 MON % 6.9 % 01/05/2011 COMPLETE BLOOD COUNT 82774 EOS % 2.1 % 01/05/2011 COMPLETE BLOOD COUNT 57593 BASO % 0.6 % 01/05/2011 COMPLETE BLOOD COUNT 46826 RDW 14.7 % 01/05/2011 COMPLETE BLOOD COUNT 49043 ABS AMANDA 5.73 10e9/L 01/05/2011 COMPLETE BLOOD COUNT 09070 ABS LYMPH 2.13 10e9/L 01/05/2011 COMPLETE BLOOD COUNT 89913 ABS MONO 0.60 10e9/L 01/05/2011 COMPLETE BLOOD COUNT 73648 ABS EOS 0.18 10e9/L 01/05/2011 COMPLETE BLOOD COUNT 94611 ABS BASO 0.05 10e9/L 01/05/2011 COMPLETE BLOOD COUNT 29969 RDW-SD 44.7 fL 01/05/2011 NO UA [id number] NO UA CANCELED 07/08/2010 Review of Systems System Result Effective Dates Gastrointestinal abdominal pain 01/09/2019 Gastrointestinal No constipation [...] Psychiatric No depression 02/06/2018 Endocrine No goiter 09/09/2017 Endocrine No hyperglycemia 02/06/2018 Endocrine No hypoglycemia [...] 09/12/2016 Respiratory No wheezing 09/12/2016 Neurologic headache 04/1 Constitutional fever 03/2017 Musculoskeletal joint complaint 07/28/2016 [...] 1 Psychiatric depression 1 Endocrine No goiter 1008/2011 Endocrine No hyperglycemia 03/07/2012 Endocrine No hypoglycemia [...] 06/2011 Neurologic No dizziness 07/06/2011 Neurologic headache 02/0 06/2011 Neurologic No neck pain 07/06/2011 Neurologic No syncope Psychiatric No anxiety 0 07/06/2011 Psychiatric No depression 07/06/2011 Endocrine No goiter 02/0 06/2011 Endocrine No hyperglycemia 07/06/2011 Endocrine No [...] No rash Dermatologic No sores Neurologic headache 10/2009 Genitourinary/Nephrology urinary urgency 03/09/2010 Neurologic headache 07/2009 Gastrointestinal vomiting 01/04/2010 Cardiovascular hypertension 01/04/2010 Neurologic [...] - General Neurologic mental status Overall: alert 201 2 None Full Exam - General Neurologic [...] Date URINE CULTURE/ COLON Y COUNT CPT-4: 89274 01/14/2019 URINALYSIS NONAUTO W /O SCOPE CPT-4: 99118 01/14/2019 INITIAL PREVENTIVE EXAM CPT-4: G0402 11/21/2018 URINALYSIS NONAUTO W /O SCOPE CPT-4: 03606 11/01/2018 URINE CULTURE/ COLON Y COUNT CPT-4: 48493 11/01/2018 URINE CULTURE/ COLON Y COUNT CPT-4: 25395 06/13/2018 URINALYSIS NONAUTO W /O SCOPE CPT-4: 72515 05/31/2018 URINE CULTURE/ COLON Y COUNT CPT-4: 66794 05/31/2018 IIV4 VACCINE 3 YRS+ IM AND UP CPT-4: 23114 03/22/2018 IMMUNIZATION ADMIN CPT- 4: 93209 03/22/2018 TDAP VACCINE 7 YRS/> IM CPT-4: 90810 12/28/2017 IMMUNIZATION ADMIN CPT- 4: 07488 12/28/2017 SHINGRIX HZV VACC RE COMBINANT IM CPT-4: 96399 10/04/2017 IMMUNIZATION ADMIN CPT- 4: 93862 10/04/2017 IIV4 VACCINE 3 YRS+ IM AND UP CPT-4: 18745 03/28/2017 IMMUNIZATION ADMIN CPT- 4: 93357 03/28/2017 INFLUENZA ASSAY W/OPTIC CPT-4: 84695 09/12/2016 FLU VACCINE 3 YRS & > IM UP 64 CPT-4: 35244 04/22/2016 IMMUNIZATION ADMIN CPT- 4: 48066 04/22/2016 OCCULT BLOOD FECES CPT- 4: 23826 01/04/2016 THER/PROPH/DIAG INJ SC/IM CPT-4: 15794 07/20/2015 PROMETHAZINE HCL INJ ECTION CPT-4: J2550 07/20/2015 FLU VACCINE 3 YRS & > IM UP 64 CPT-4: 00162 03/09/2015 IMMUNIZATION ADMIN CPT- 4: 29146 03/09/2015 URINALYSIS NONAUTO W /O SCOPE CPT-4: 36046 07/10/2014 URINE CULTURE/ COLON Y COUNT CPT-4: 66942 07/10/2014 URINE CULTURE/ COLON Y COUNT CPT-4: 64653 07/14/2011 URINALYSIS NONAUTO W /O SCOPE CPT-4: 67029 07/14/2011 FLU VACCINE 3 YRS & > IM UP 64 CPT-4: 22192 06/28/2011 IMMUNIZATION ADMIN CPT- 4: 72910 06/28/2011 URINALYSIS NONAUTO W /O SCOPE CPT-4: 12381 03/23/2011 URINE CULTURE/ COLON Y COUNT CPT-4: 56292 03/23/2011 ROUTINE VENIPUNCTURE CPT-4: 22971 01/14/2011 COMPREHEN METABOLIC PANEL CPT-4: 47897 01/14/2011 ROUTINE VENIPUNCTURE CPT-4: 38051 01/05/2011 COMPLETE CBC W/AUTO DIFF WBC CPT-4: 60904 01/05/2011 RBC SED RATE AUTOMATED CPT-4: 86072 01/05/2011 COMPREHEN METABOLIC PANEL CPT-4: 34516 01/05/2011 URINALYSIS NONAUTO W /O SCOPE CPT-4: 86060 11/16/2010 URINE CULTURE/ COLON Y COUNT CPT-4: 94352 11/16/2010 DRAIN/INJECT JOINT/B URSA CPT-4: 96537 11/04/2010 TRIAMCINOLONE ACET I [place] NOS CPT-4: J3301 11/04/2010 METHYLPREDNISOLONE 8 0 MG INJ CPT-4: J1040 11/04/2010 URINALYSIS NONAUTO W /O SCOPE CPT-4: 57356 07/05/2010 URINE CULTURE/ COLON Y COUNT CPT-4: 83540 07/05/2010 URINALYSIS NONAUTO W /O SCOPE CPT-4: 70345 06/28/2010 URINE CULTURE/ COLON Y COUNT CPT-4: 80164 06/28/2010 URINALYSIS NONAUTO W /O SCOPE CPT-4: 45524 06/14/2010 URINE CULTURE/ COLON Y COUNT CPT-4: 33893 06/14/2010 URINE CULTURE/ COLON Y COUNT CPT-4: 21949 04/19/2010 OCCULT BLOOD FECES CPT- 4: 94324 04/12/2010 URINALYSIS NONAUTO W /O SCOPE CPT-4: 68265 04/08/2010 URINE CULTURE/ COLON Y COUNT CPT-4: 41435 04/08/2010 ASSAY, GLUCOSE, BLOO D QUANT CPT-4: 58264 03/09/2010 URINALYSIS NONAUTO W /O SCOPE CPT-4: 93492 03/09/2010 FLU VACCINE 3 YRS & > IM UP 64 CPT-4: 08106 03/09/2010 IMMUNIZATION ADMIN CPT- 4: 47567 03/09/2010 URINALYSIS NONAUTO W /O SCOPE CPT-4: 68666 09/29/2009 URINALYSIS NONAUTO W /O SCOPE CPT-4: 36578 08/12/2009 Vital Signs Date Vital 01/09/2019 Heart Rate 1: 100 bpm Respiratory Rate: 20 bpm SpO2: 98% Temperature: 36.8 (C ) / 98.2 (F) Weight: 162 lbs 11/21/2018 Blood Pressure 1: 130/70 Code: 8480-6 BMI: 29.6 Code: 82739-5 Heart Rate 1: 76 bpm Height: 5'2" [...] 1: 126/62 Code: 8480-6 BMI: 29.6 Code: 52558-6 Heart Rate 1: 88 bpm Height: 5'3" Respiratory Rate: 20 bpm Temperature: 36.8 (C ) / 98.3 (F) Weight: 167 lbs 05/31/2018 Blood Pressure 1: 140/80 Code: 8480-6 Heart Rate 1: 74 bpm Respiratory Rate: 16 bpm SpO2: 97% Temperature: 36.3 (C ) / 97.3 (F) Weight: 165 lbs 02/06/2018 Blood Pressure 1: 124/78 Code: 8480-6 BMI: 29.8 Code: 52725-1 Heart Rate 1: 84 bpm Height: 5'3" Respiratory Rate: 20 bpm SpO2: 97% Temperature: 36.6 (C ) / 97.8 (F) Weight: 168 lbs 12/18/2017 Blood Pressure 1: 116/78 Code: 8480-6 BMI: 29.6 Code: 92217-2 Heart Rate 1: 88 bpm Height: 5'3" Respiratory Rate: 20 bpm Temperature: 36.6 (C ) / 97.9 (F) Weight: 167 lbs 12/11/2017 Blood Pressure 1: 122/76 Code: 8480-6 Heart Rate 1: 78 bpm 09/11/2017 Blood Pressure 1: 126/82 Code: 8480-6 BMI: 29.1 Code: 01418-5 Heart Rate 1: 68 bpm Height: 5'3" Respiratory Rate: 20 bpm SpO2: 96% Temperature: 36.6 (C ) / 97.9 (F) Weight: 164 lbs 03/28/2017 Blood Pressure 1: 114/64 Code: 8480-6 BMI: 27.8 Code: 87630-0 Heart Rate 1: 76 bpm Height: 5'3" Respiratory Rate: 20 bpm SpO2: 98% Temperature: 36.4 (C ) / 97.6 (F) Weight: 157 lbs 09/12/2016 Blood Pressure 1: 126/70 Code: 8480-6 BMI: 29.9 Code: 14997-2 Heart Rate 1: 92 bpm Height: 5'3" Respiratory Rate: 20 bpm SpO2: 97% Temperature: 37.0 (C ) / 98.6 (F) Weight: 168 lbs 9 oz 07/28/2016 Blood Pressure 1: 128/74 Code: 8480-6 Heart Rate 1: 92 bpm Respiratory Rate: 24 bpm SpO2: 96% Temperature: 36.4 (C ) / 97.6 (F) Weight: 168 lbs 04/26/2016 Blood Pressure 1: 116/74 Code: 8480-6 BMI: 29.9 Code: 41906-3 Heart Rate 1: 92 bpm Height: 5'3" Respiratory Rate: 20 bpm Temperature: 36.9 (C ) / 98.4 (F) Weight: 169 lbs 12/09/2015 Blood Pressure 1: 116/72 Code: 8480-6 BMI: 31.7 Code: 21861-5 Heart Rate 1: 80 bpm Height: 5'3" Respiratory Rate: 20 bpm Temperature: 36.6 (C ) / 97.9 (F) Weight: 179 lbs 09/10/2015 Blood Pressure 1: 122/78 Code: 8480-6 BMI: 32.2 Code: 06914-1 Heart Rate 1: 88 bpm Height: 5'3" Respiratory Rate: 20 bpm Temperature: 37.3 (C ) / 99.1 (F) Weight: 182 lbs 04/23/2015 Blood Pressure 1: 126/70 Code: 8480-6 BMI: 31.2 Code: 70491-6 Heart Rate 1: 92 bpm Height: 5'3" Respiratory Rate: 20 bpm Temperature: 36.8 (C ) / 98.2 (F) Weight: 176 lbs 03/24/2015 Blood Pressure 1: 126/78 Code: 8480-6 BMI: 31.2 Code: 48665-9 Heart Rate 1: 80 bpm Height: 5'3" Respiratory Rate: 22 bpm Temperature: 36.1 (C ) / 96.9 (F) Weight: 176 lbs 03/05/2015 Blood Pressure 1: 132/80 Code: 8480-6 BMI: 31.5 Code: 08104-0 Heart Rate 1: 92 bpm Height: 5'2" Respiratory Rate: 20 bpm Temperature: 36.4 (C ) / 97.6 (F) Weight: 175 lbs 02/19/2015 Blood Pressure 1: 134/80 Code: 8480-6 BMI: 31.5 Code: 61118-3 Heart Rate 1: 88 bpm Height: 5'2" Respiratory Rate: 20 bpm Temperature: 36.7 (C ) / 98.0 (F) Weight: 175 lbs 12/25/2014 Blood Pressure 1: 122/80 Code: 8480-6 BMI: 31.0 Code: 08752-6 Heart Rate 1: 88 bpm Height: 5'2" Respiratory Rate: 20 bpm Temperature: 36.6 (C ) / 97.8 (F) Weight: 172 lbs 11/26/2014 Blood Pressure 1: 116/68 Code: 8480-6 BMI: 30.2 Code: 92753-4 Heart Rate 1: 76 bpm Height: 5'2" Respiratory Rate: 20 bpm Temperature: 36.5 (C ) / 97.7 (F) Weight: 168 lbs 11/04/2014 Blood Pressure 1: 116/64 Code: 8480-6 BMI: 30.8 Code: 44960-7 Heart Rate 1: 92 bpm Height: 5'2" Respiratory Rate: 20 bpm Temperature: 36.7 (C ) / 98.1 (F) Weight: 171 lbs 09/01/2014 Blood Pressure 1: 130/82 Code: 8480-6 BMI: 30.6 Code: 53873-5 Heart Rate 1: 92 bpm Height: 5'2" Respiratory Rate: 20 bpm Temperature: 36.9 (C ) / 98.4 (F) Weight: 170 lbs 06/02/2014 Blood Pressure 1: 126/80 Code: 8480-6 BMI: 30.2 Code: 82924-5 Heart Rate 1: 88 bpm Height: 5'2" Respiratory Rate: 20 bpm Temperature: 36.7 (C ) / 98.1 (F) Weight: 168 lbs 05/26/2014 Blood Pressure 1: 132/78 Code: 8480-6 Heart Rate 1: 74 bpm 04/08/2014 Blood Pressure 1: 156/94 Code: 8480-6 BMI: 30.2 Code: 16151-7 Heart Rate 1: 96 bpm Height: 5'2" Respiratory Rate: 20 bpm Temperature: 37.1 (C ) / 98.7 (F) Weight: 168 lbs 03/05/2014 Blood Pressure 1: 144/86 Code: 8480-6 BMI: 29.9 Code: 24545-0 Heart Rate 1: 100 bpm Height: 5'2" Respiratory Rate: 20 bpm Temperature: 36.7 (C ) / 98.1 (F) Weight: 166 lbs 07/29/2013 Blood Pressure 1: 124/80 Code: 8480-6 Heart Rate 1: 92 bpm Respiratory Rate: 20 bpm Temperature: 36.2 (C) / 97.2 (F) Weight: 167 lbs 03/20/2013 Blood Pressure 1: 116/84 Code: 8480-6 BMI: 30.8 Code: 75490-7 Heart Rate 1: 96 bpm Height: 5'3" Respiratory Rate: 20 bpm Temperature: 36.6 (C ) / 97.8 (F) Weight: 174 lbs 02/12/2013 Blood Pressure 1: 122/80 Code: 8480-6 BMI: 30.5 Code: 39234-4 Heart Rate 1: 112 bpm Height: 5'3" Respiratory Rate: 20 bpm Temperature: 36.9 (C ) / 98.4 (F) Weight: 172 lbs 11/05/2012 BMI: 31.2 Code: 31570-6 Height: 5'3" Weight: 176 lbs 10/04/2012 Heart Rate 1: 84 bpm Height: 5'3" Respiratory Rate: 20 bpm Temperature: 36.8 (C ) / 98.3 (F) Weight: 09/24/2012 Blood Pressure 1: 122/88 Code: 8480-6 BMI: 30.8 Code: 32023-0 Heart Rate 1: 80 bpm Height: 5'3" Respiratory Rate: 20 bpm Temperature: 36.8 (C ) / 98.2 (F) Weight: 174 lbs 05/10/2012 Blood Pressure 1: 124/68 Code: 8480-6 BMI: 30.1 Code: 14269-3 Heart Rate 1: 64 bpm Height: 5'3" Temperature: 36.6 (C ) / 97.8 (F) Weight: 170 lbs 03/07/2012 Blood Pressure 1: 132/78 Code: 8480-6 BMI: 29.2 Code: 52248-8 Heart Rate 1: 92 bpm Height: 5'3" Respiratory Rate: 20 bpm Temperature: 36.7 (C ) / 98.1 (F) Weight: 165 lbs 02/01/2012 Blood Pressure 1: 116/78 Code: 8480-6 BMI: 29.1 Code: 66158-6 Heart Rate 1: 84 bpm Height: 5'3" Respiratory Rate: 20 bpm Temperature: 36.8 (C ) / 98.2 (F) Weight: 164 lbs 12/20/2011 Blood Pressure 1: 128/80 Code: 8480-6 BMI: 29.1 Code: 01304-9 Heart Rate 1: 88 bpm Height: 5'3" Respiratory Rate: 20 bpm Temperature: 36.4 (C ) / 97.6 (F) Weight: 164 lbs 11/22/2011 Blood Pressure 1: 104/60 Code: 8480-6 BMI: 28.5 Code: 67692-9 Heart Rate 1: 78 bpm Height: 5'3" Temperature: 36.6 (C ) / 97.9 (F) Weight: 161 lbs 07/11/2011 Blood Pressure 1: 118/72 Code: 8480-6 BMI: 30.6 Code: 41127-4 Heart Rate 1: 92 bpm Height: 5'3" Respiratory Rate: 20 bpm Temperature: 36.8 (C ) / 98.2 (F) Weight: 173 lbs 07/06/2011 Blood Pressure 1: 126/80 Code: 8480-6 BMI: 31.0 Code: 51929-0 Heart Rate 1: 88 bpm Height: 5'3" Respiratory Rate: 20 bpm Temperature: 36.7 (C ) / 98.1 (F) Weight: 175 lbs 05/26/2011 Blood Pressure 1: 100/78 Code: 8480-6 BMI: 31.0 Code: 17763-6 Heart Rate 1: 74 bpm Height: 5'3" Temperature: 36.4 (C ) / 97.6 (F) Weight: 175 lbs 05/16/2011 Blood Pressure 1: 116/80 Code: 8480-6 BMI: 31.0 Code: 71092-6 Heart Rate 1: 88 bpm Height: 5'3" Respiratory Rate: 20 bpm Temperature: 36.8 (C ) / 98.2 (F) Weight: 175 lbs 05/05/2011 Blood Pressure 1: 126/80 Code: 8480-6 BMI: 30.6 Code: 24697-0 Heart Rate 1: 96 bpm Height: 5'3" Respiratory Rate: 20 bpm Temperature: 36.4 (C ) / 97.6 (F) Weight: 173 lbs 04/05/2011 Blood Pressure 1: 144/90 Code: 8480-6 BMI: 30.1 Code: 70967-2 Heart Rate 1: 92 bpm Height: 5'3" Respiratory Rate: 20 bpm Temperature: 36.6 (C ) / 97.8 (F) Weight: 170 lbs 03/02/2011 Blood Pressure 1: 136/94 Code: 8480-6 Heart Rate 1: 92 bpm Temperature: 36.6 (C) / 97.8 (F) Weight: 171 lbs 01/05/2011 Blood Pressure 1: 132/86 Code: 8480-6 BMI: 30.6 Code: 62671-8 Heart Rate 1: 98 bpm Height: 5'3" [...] 1: 122/68 Code: 8480-6 BMI: 29.8 Code: 65384-9 Height: 5'3" Temperature: 36.3 (C ) / [...] 1: 142/90 Code: 8480-6 BMI: 30.5 Code: 06269-6 Heart Rate 1: 96 bpm Height: 5'3" Temperature: 36.1 (C ) / 97.0 (F) Weight: 172 lbs Functional Status No Functional Status data History of Present Illness Symptom Name Status Resu lt Effective Date Notes Location in the midlin e of in [...] Guidance hormon e replacement therapy 11/21/2018 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 due to side effect [...] Patients thinks may be re lated to [facility] back pain Location low b ack 09/01/2014 [...] Encounters Encounter Performer Loca tion Codes Date ([id number]) NURSE/OUTPAT IENT VISIT EST Diagnosis: Low back pain[ICD10: M54.5] Diagnosis: Hematuria, unspecified[ICD10: R31.9] Yaima [facility] CPT-4: 59184 01/14/2019 ([id number]) OFFICE/OUTPA TIENT VISIT EST Diagnosis: Left lower quadrant pain[ICD10: R10.32] Yaima [facility] DO [facility] CPT-4: 37651 01/09/2019 ([id number]) NURSE/OUTPAT IENT VISIT EST Diagnosis: Hematuria, unspecified[ICD10: R31.9] Yaima [facility] DO [facility] CPT-4: 25679 11/01/2018 ([id number]) OFFICE/OUTPA TIENT VISIT EST Diagnosis: Hypothyroidism, unspecified[ICD10: E03.9] Diagnosis: Other fatigue[ICD10: R53.83] Diagnosis: Other cervical disc degeneration, unspecified cervical region[ICD10: M50.30] Yaima [facility] CPT-4: 28621 10/04/2018 ([id number]) OFFICE/OUTPA TIENT VISIT EST Diagnosis: Hypothyroidism, unspecified[ICD10: E03.9] Diagnosis: Impaired fasting glucose[ICD10: R73.01] Diagnosis: Cervicalgia[ICD10: M54.2] Yaima [facility] CPT-4: 13510 08/06/2018 ([id number]) OFFICE/OUTPA TIENT VISIT EST Diagnosis: Radiculopathy, lumbosacral region[ICD10: M54.17] Diagnosis: Abrasion, left lower leg, sequela[ICD10: S80.812S] Yaima [facility] CPT-4: 00435 06/21/2018 ([id number]) NURSE/OUTPAT IENT VISIT EST Diagnosis: Urinary tract infection, site not specified[ICD10: N39.0] Yaima [facility] CPT-4: 22150 06/13/2018 ([id number]) OFFICE/OUTPA TIENT VISIT EST Diagnosis: Other dorsalgia[ICD10: M54.89] Jane [facility] CPT-4: 47705 05/31/2018 ([id number]) NURSE/OUTPAT IENT VISIT EST Diagnosis: FLU VACCINE[ICD10: Z23] Yaima [facility] CPT-4: 77350 03/22/2018 ([id number]) OFFICE/OUTPA TIENT VISIT EST Diagnosis: Hypothyroidism, unspecified[ICD10: E03.9] Diagnosis: Essential (primary) hypertension[ICD10: I10] Diagnosis: Other seasonal allergic rhinitis[ICD10: J30.2] Yaima [facility] CPT-4: 18267 02/06/2018 ([id number]) NURSE/OUTPAT IENT VISIT EST Diagnosis: Laceration of blood vessel of right index finger, initial encounter[ICD10: S65.510A] Diagnosis: VACCINE FOR TDAP[ICD10: Z23] Yaima [facility] CPT-4: 94137 12/28/2017 ([id number]) OFFICE/OUTPA TIENT VISIT EST Diagnosis: Tinnitus, bilateral[ICD10: H93.13] Yaima [facility] CPT-4: 48238 12/18/2017 ([id number]) NURSE/OUTPAT IENT VISIT EST Diagnosis: VACCIN FOR DISEASE NEC (HPV or Zostavax)[ICD10: Z23] Yaima [facility] CPT-4: 83739 10/04/2017 OFFICE/OUTPATIENT SIT EST Diagnosis: Hypothyroidism, unspecified[ICD10: E03.9] Diagnosis: Essential (primary) hypertension[ICD10: I10] Diagnosis: Gastro-esophageal reflux disease without esophagitis[ICD10: K21.9] Diagnosis: Pain in right knee[ICD10: M25.561] Diagnosis: Hyperglycemia, unspecified[ICD10: R73.9] Yaima [facility] CPT-4: 20278 09/11/2017 ([id number]) OFFICE/OUTPA TIENT VISIT EST Diagnosis: Cervicalgia[ICD10: M54.2] Diagnosis: Hypothyroidism, unspecified[ICD10: E03.9] Diagnosis: Essential (primary) hypertension[ICD10: I10] Diagnosis: Irritant contact dermatitis, unspecified cause[ICD10: L24.9] Diagnosis: FLU VACCINE[ICD10: Z23] Yaimaperlita [facility] CPT-4: 71176 03/28/2017 ([id number]) OFFICE/OUTPA TIENT VISIT EST Diagnosis: Influenza due to identified novel influenza A virus with other manifestations[ICD10: J09.X9] Yaima [facility] CPT-4: 48690 09/12/2016 ([id number]) OFFICE/OUTPA TIENT VISIT EST Diagnosis: Dermatitis, unspecified[ICD10: L30.9] Diagnosis: Pain in right knee[ICD10: M25.561] Y[facility] CPT-4: 59647 07/28/2016 ([id number]) OFFICE/OUTPA TIENT VISIT EST Diagnosis: Incisional hernia without obstruction or gangrene[ICD10: K43.2] Diagnosis: Gastro-esophageal reflux disease without esophagitis[ICD10: K21.9] Diagnosis: Radiculopathy, lumbosacral region[ICD10: M54.17] [facility] CPT-4: 94167 04/26/2016 ([id number]) OFFICE/OUTPA TIENT VISIT EST Diagnosis: FLU VACCINE[ICD10: Z23] [facility] CPT-4: 20097 04/22/2016 ([id number]) OFFICE/OUTPA TIENT VISIT EST Diagnosis: Other fecal abnormalities[ICD10: R19.5] [facility] CPT-4: 88516 01/04/2016 ([id number]) OFFICE/OUTPA TIENT VISIT EST 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] Diagnosis: Other specified diseases of liver[ICD10: K76.89] Diagnosis: Irritant contact dermatitis due to detergents[ICD10: L24.0] [facility] CPT-4: 14209 12/09/2015 ([id number]) OFFICE/OUTPA TIENT VISIT EST Diagnosis: Pain in thoracic spine[ICD10: M54.6] Diagnosis: Radiculopathy, lumbosacral region[ICD10: M54.17] Diagnosis: Precordial pain[ICD10: R07.2] [facility] CPT-4: 26936 09/10/2015 ([id number]) OFFICE/OUTPA TIENT VISIT EST Diagnosis: Nausea[ICD10: R11.0] [facility] CPT-4: 32931 07/20/2015 ([id number]) OFFICE/OUTPA TIENT VISIT EST Diagnosis: Pain in left elbow[ICD10: M25.522] Diagnosis: Contusion of left lower leg, sequela[ICD10: S80.12XS] Diagnosis: Pleurodynia[ICD10: R07.81] [facility] CPT-4: 59966 04/23/2015 ([id number]) OFFICE/OUTPA TIENT VISIT EST Diagnosis: Unspecified abdominal pain[ICD10: R10.9] Diagnosis: Ventral hernia without obstruction or gangrene[ICD10: K43.9] Diagnosis: Constipation, unspecified[ICD10: K59.00] [facility] CPT-4: 13293 03/24/2015 ([id number]) OFFICE/OUTPA TIENT VISIT EST Diagnosis: FLU VACCINE[ICD10: Z23] [facility] CPT-4: 18597 03/09/2015 ([id number]) OFFICE/OUTPA TIENT VISIT EST 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] Diagnosis: Generalized abdominal pain[ICD10: R10.84] [facility] CPT-4: 40267 03/05/2015 OFFICE/OUTPATIENT SIT EST Diagnosis: ABDOMINAL PAIN[ICD9: 789.00] Diagnosis: HYPOTHYROIDISM[ICD9: 244.9] Diagnosis: HYPERTENSION[ICD9: 401.9] Diagnosis: DIVERTICULITIS, COLONIC[ICD9: 562.11] Diagnosis: DISTURBANCE OF SKIN SENSATION (Paresthesia)[ICD9: 782.0] Yaima GAYTANER DO [facility] CPT-4: 25289 02/19/2015 ([id number]) OFFICE/OUTPA TIENT VISIT EST Diagnosis: HYPOTHYROIDISM[ICD9: 244.9] Diagnosis: Diaphoresis[ICD9: 780.8] Yaima JOHNSON [facility] CPT-4: 08382 12/25/2014 ([id number]) OFFICE/OUTPA TIENT VISIT EST Diagnosis: ABDOMINAL PAIN[ICD9: 789.00] Diagnosis: PAIN, LOWER BACK[ICD9: 724.2] Diagnosis: Contusion of leg[ICD9: 924.5] Yaima JOHNSON [facility] CPT-4: 30487 11/26/2014 ([id number]) OFFICE/OUTPA TIENT VISIT EST Diagnosis: IBS[ICD9: 564.1] Diagnosis: GERD[ICD9: 530.81] Yaima JOHNSON DO [facility] CPT-4: 65350 11/04/2014 ([id number]) OFFICE/OUTPA TIENT VISIT EST Diagnosis: Headache[ICD9: 784.0] Diagnosis: Leg pain[ICD9: 729.5] Yaima JOHNSON DO [facility] CPT-4: 04319 09/01/2014 ([id number]) OFFICE/OUTPA TIENT VISIT EST Diagnosis: DYSURIA[ICD9: 788.1] Yaima JOHNSON DO [facility] CPT-4: 29239 07/10/2014 OFFICE/OUTPATIENT SIT EST Diagnosis: VAGINITIS[ICD9: 623.5] Diagnosis: SINUSITIS, ACUTE[ICD9: 461.9] Yaima JOHNSON DO [facility] CPT-4: 79143 06/02/2014 ([id number]) OFFICE/OUTPA TIENT VISIT EST Diagnosis: HYPERTENSION[ICD9: 401.9] Diagnosis: ALLERGIC RHINITIS[ICD9: 477.9] Diagnosis: PAIN, LOWER BACK[ICD9: 724.2] Yaima JOHNSON [facility] CPT-4: 76860 04/08/2014 ([id number]) OFFICE/OUTPA TIENT VISIT EST Diagnosis: COUGH[ICD10: R05] Diagnosis: Thoracic back pain[ICD9: 724.1] Yaima JOHNSON [facility] CPT-4: 85794 03/05/2014 ([id number]) OFFICE/OUTPA TIENT VISIT EST Diagnosis: SINUSITIS, ACUTE[ICD9: 461.9] Diagnosis: BRONCHITIS, ACUTE[ICD9: 466.0] Yaima JOHNSON DO [facility] CPT-4: 76737 07/29/2013 ([id number]) OFFICE/OUTPA TIENT VISIT EST Diagnosis: ABDOMINAL PAIN[ICD9: 789.00] Diagnosis: Constipation[ICD9: 564.00] Diagnosis: DIVERTICULITIS, COLONIC[ICD9: 562.11] Yaima [facility] CPT-4: 48736 03/20/2013 ([id number]) OFFICE/OUTPA TIENT VISIT EST Diagnosis: Plantar fasciitis[ICD9: 728.71] Diagnosis: ALLERGIC RHINITIS[ICD9: 477.9] Yaima JOHNSON DO [facility] CPT-4: 30991 02/12/2013 OFFICE/OUTPATIENT SIT EST Diagnosis: Skin lesion[ICD9: 709.9] Diagnosis: Lumbar back pain[ICD9: 724.2] Diagnosis: Muscle spasm[ICD9: 728.85] Diagnosis: Hypothyroid[ICD9: 244.9] Yaima JOHNSON DO [facility] CPT-4: 72983 11/05/2012 ([id number]) OFFICE/OUTPA TIENT VISIT EST Diagnosis: Cervicalgia[ICD9: 723.1] Diagnosis: Thoracic back pain[ICD9: 724.1] Diagnosis: SPASM OF MUSCLE[ICD9: 728.85] Yaima [facility]ON [facility] CPT-4: 40641 10/04/2012 ([id number]) OFFICE/OUTPA TIENT VISIT EST Diagnosis: MALAISE AND FATIGUE[ICD9: 780.79] Diagnosis: HYPOTHYROIDISM[ICD9: 244.9] Diagnosis: HYPERTENSION[ICD9: 401.9] Yaima [facility] CPT-4: 88329 09/24/2012 ([id number]) OFFICE/OUTPA TIENT VISIT EST Diagnosis: Lateral epicondylitis[ICD9: 726.32] Diagnosis: Wrist pain[ICD9: 719.43] Diagnosis: Numbness and tingling in right hand[ICD9: 782.0] Yaima [facility] CPT-4: 07192 05/10/2012 OFFICE/OUTPATIENT SIT EST Diagnosis: MALAISE AND FATIGUE[ICD9: 780.79] Diagnosis: HYPOTHYROIDISM[ICD9: 244.9] Diagnosis: Enthesopathy of the wrist and carpus[ICD9: 726.4] Diagnosis: Foot pain[ICD9: 729.5] Diagnosis: DYSPHAGIA NEC[ICD9: 787.29] Yaima RaviRobin [facility] CPT-4: 21752 03/07/2012 ([id number]) OFFICE/OUTPA TIENT VISIT EST Diagnosis: HYPOTHYROIDISM[ICD9: 244.9] Yaima RaviRobin [facility] CPT-4: 46474 02/01/2012 ([id number]) OFFICE/OUTPA TIENT VISIT EST Diagnosis: MALAISE AND FATIGUE[ICD9: 780.79] Diagnosis: HYPOTHYROIDISM[ICD9: 244.9] Yaima [facility] CPT-4: 20105 12/20/2011 OFFICE/OUTPATIENT SIT EST Diagnosis: INSECT BITE HIP/LEG[ICD9: 916.4] Lizzette ZUNIGAQUELINE BreonnaRobin [facility] CPT-4: 94283 11/22/2011 OFFICE/OUTPATIENT SIT EST Diagnosis: HEMATURIA NOS[ICD9: 599.70] Yaima Elizabeth MCCORMACKLINE BreonnaRobin [facility] CPT-4: 01416 07/14/2011 OFFICE/OUTPATIENT SIT EST Diagnosis: URINARY TRACT INFECTION[ICD9: 599.0] Diagnosis: DIVERTICULITIS, COLONIC[ICD9: 562.11] Yaima Elizabeth MCCORMACKLINE BreonnaRobin JOSUE [facility] CPT-4: 19571 07/11/2011 OFFICE/OUTPATIENT SIT EST Diagnosis: TMJ arthritis[ICD9: 524.69] Diagnosis: MIGRAINE NOS/NOT INTRCBL[ICD9: 346.90] Diagnosis: Rectal fissure[ICD9: 565.0] Yaima Salasjuliannicole YAIMA [facility] CPT-4: 61169 07/06/2011 OFFICE/OUTPATIENT SIT EST Diagnosis: SPASM OF MUSCLE[ICD9: 728.85] Diagnosis: PAIN, LOWER BACK[ICD9: 724.2] Yaima Josuejuliannicole YAIMA [facility] CPT-4: 14283 05/26/2011 OFFICE/OUTPATIENT SIT EST Diagnosis: PAIN, LOWER BACK[ICD9: 724.2] Diagnosis: SPASM OF MUSCLE[ICD9: 728.85] Yaima Gaytannicole YAIMA [facility] CPT-4: 86220 05/16/2011 OFFICE/OUTPATIENT SIT EST Diagnosis: PAIN, LOWER BACK[ICD9: 724.2] Diagnosis: ENTHESOPATHY OF HIP[ICD9: 726.5] Diagnosis: Onychomycosis[ICD9: 110.1] Yaima Orejuliannicole [facility]IMA [facility] CPT-4: 34990 05/05/2011 OFFICE/OUTPATIENT SIT EST Diagnosis: Diverticulitis[ICD9: 562.11] Yaima Josuesara JOHNSON [facility] CPT-4: 00870 04/05/2011 OFFICE/OUTPATIENT SIT EST Diagnosis: CHEST PAIN NOS[ICD9: 786.50] Diagnosis: PALPITATIONS[ICD9: 785.1] Diagnosis: Pulmonary arterial hypertension[ICD9: 416.8] Yaima SHIRLEYR [facility] CPT-4: 56272 03/02/2011 OFFICE/OUTPATIENT SIT EST Yaima Gaytannicole YAIMA SHIRLEYR [facility] CPT-4: 82030 01/05/2011 ([id number]) OFFICE/OUTPA TIENT VISIT EST Yaima Gaytannicole YAIMA [facility] CPT-4: 53055 11/16/2010 ([id number]) OFFICE/OUTPA TIENT VISIT EST [facility] CPT-4: 59955 11/04/2010 ([id number]) OFFICE/OUTPA TIENT VISIT EST Yaima [facility] CPT-4: 63397 08/05/2010 ([id number]) OFFICE/OUTPA TIENT VISIT EST [facility]a [facility] CPT-4: 85053 07/23/2010 ([id number]) OFFICE/OUTPA TIENT VISIT, EST Yaima SAMUELS [facility] CPT-4: 97101 06/07/2010 ([id number]) OFFICE/OUTPA TIENT VISIT, EST Yaima [facility]S [facility] CPT-4: 01725 05/12/2010 ([id number]) OFFICE/OUTPA TIENT VISIT, EST Yaima [facility] CPT-4: 58727 04/27/2010 ([id number]) OFFICE/OUTPA TIENT VISIT, EST Yaima [facility]UELS [facility] CPT-4: 08367 04/19/2010 ([id number]) OFFICE/OUTPA TIENT VISIT, EST Yaima SAMUELS [facility] CPT-4: 31192 03/09/2010 ([id number]) OFFICE/OUTPA TIENT VISIT, EST Yaima [facility] CPT-4: 12614 01/04/2010 ([id number]) OFFICE/OUTPA TIENT VISIT, EST Yaima SAMUELS [facility] CPT-4: 83548 12/14/2009 ([id number]) OFFICE/OUTPA TIENT VISIT, EST Lizzette Blake [facility] CPT-4: 92398 11/23/2009 Plan of Care Planned Activity Notes C odes Status Date Visit Diagnosis Plan: Left lower quadrant pain Discussion: Appears to have a hernia so did discuss surgical evaluation ICD-9 : 789.04 ICD-10 : R10.32 01/09/2019 Appointment: Yaima Johnson WPtel: [address] [place], [place] [id number] ACUTE ILLNESS 01/09/2019 Visit Diagnosis Plan: Encounter for gene [facility] adult medical examination without abnormal findings [...] : Z00.00 11/21/2018 Appointment: Yaima Johnson WPtel: [address] [place], [place] [phone] WELCOME TO MEDICARE 11/21/2018 Care Plan: Referral Order SNOMED-CT : 321311646 Pending 11/21/2018 Appointment: Yaima Johnson WPtel: [address] [place], [place] [phone] [facility] 11/01/2018 Visit Diagnosis Plan: Hypothyroidism, unspecified Discussion: Restart synthroid at 50mcg daily and recheck lab in 3mos ICD-9 : 244.9 ICD-10 : E03.9 10/04/2018 Visit Diagnosis Plan: Other cervical dis c degeneration, unspecified cervical region Discussion: MRI results discussed fwup w [facility] Dr. Johnson ICD-9 : 722.4 ICD-10 : M50.30 10/04/2018 Appointment: Yaima Johnson WPtel: [address] [place], [place] [id number] FOLLOW UP 10/04/2018 Care Plan: Referral Order SNOMED-CT : 639091669 Pending 10/04/2018 Visit Diagnosis Plan: Hypothyroidism, unspecified [...] : M54.2 08/06/2018 Appointment: Yaima Johnson WPtel: [address] [place] [address] Schedule medicare annual! FOLLOW UP 08/06/2018 Patient Education: levothyroxine- Optimize[employer] Coupon [id number] [email or web address] Completed 08/06/2018 Visit Diagnosis Plan: Radiculopathy, lumbosacral regio n Discussion: Daily stretches and see if improves--low dose gabapentin trial q HS if does not improve Lab and fwup in 3mos ICD-9 : 724.4 ICD-10 : M54.17 06/21/2018 Visit Diagnosis Plan: Abrasion, left lower leg, sequel a Discussion: Vitamin E topically for scarring/dryness ICD-9 : 906.2 ICD-10 : S80.812S 06/21/2018 Appointment: Yaima Johnson WPtel: [address] [place] [address] ACUTE ILLNESS 06/21/2018 Appointment: Yaima Johnson WPtel: [address] [place] [address] UA 06/13/2018 Visit Diagnosis Plan: Other dorsalgia [...] : 724.5 ICD-10 : M54.89 05/31/2018 Appointment: Yoon, Jane R. [address] [place] [address] ACUTE ILLNESS 05/31/2018 Appointment: Yaima Johnson WPtel: [address] [place] [address] [place] INJECTION 03/22/2018 Patient Education: Patient Medication Summary Completed 03/22/2018 Patient Education: INFLUENZA VACCINE CDC Completed 03/22/2018 Appointment: Yaima Johnson WPtel: [address] [place] [address] US RESCHEDULED 02/14/2018 Visit Diagnosis Plan: Hypothyroidism, [...] : J30.2 02/06/2018 Appointment: Yaima Johnson WPtel: [address] [place] [address] [place] FOLLOW UP 02/06/2018 Patient Education: Patient Medication Summary Completed 02/06/2018 Appointment: Yaima Johnson WPtel: [address] [place] [address] [place] INJECTION 12/28/2017 Patient Education: Patient Medication Summary Completed 12/28/2017 Appointment: Yaima Johnson WPtel: [address] [place] [address] US RESCHEDULED 12/25/2017 Visit Diagnosis Plan: Tinnitus, bilateral Discussion: See ENT for hearing eval and further workup ICD-9 : 388.31 ICD-10 : H93.13 12/18/2017 Appointment: Yaima Johnson WPtel: [address] [place] [address] ACUTE ILLNESS 12/18/2017 Patient Education: Patient Medication Summary Completed 12/18/2017 Patient Education: Tinnitus Completed 12/18/2017 Care Plan: Referral Order SNOMED-CT : [id number] Pending 12/18/2017 Appointment: Yaima Johnson WPtel: [address] [place], [place] [phone] BP CHECK 12/11/2017 Patient Education: Patient Medication Summary Completed 12/11/2017 Referral: Danyel Hernandez WPtel: [facility] [address] Referral Initiated 10/11/2017 Appointment: Yaima Johnson WPtel: [address] [place] [address] INJECTION 10/04/2017 Patient Education: Patient Medication Summary [...] : E03.9 09/11/2017 Appointment: Yaima Johnson WPtel: [address] [place], [place] [phone] FOLLOW UP 09/11/2017 Patient Education: Patient Medication Summary Completed 09/11/2017 Appointment: Jane Nettles [facility] 08/28/17 3434---issue addressed in phone message (km) CANCELED 08/29/2017 Patient Education: Patient Medication Summary Completed 07/11/2017 Care Plan: A1C HPLC LO INC : 56405-3 Pending 07/11/2017 Care Plan: ASSAY OF FREE THYROXINE Pending 07/11/2017 Care Plan: ASSAY THYROID STIM HORMONE Pending 07/11/2017 Care Plan: COMPLETE CBC W/AUTO DIFF WBC LOINC : 51861-5 Pending 07/11/2017 Care Plan: COMPREHEN METABOLIC PANEL LOINC : 80279-5 Pending 07/11/2017 Visit Diagnosis Plan: Irritant contact [...] E03.9 03/28/2017 App[facility]ment: [phone] [facility] [facility] 03/28/2017 Patient Education: Patient Medication Summary Completed 03/28/2017 Patient Education: Patient Medication Summary Completed 02/17/2017 Care Plan: ASSAY OF FREE THYROXINE Pending 02/17/2017 Care Plan: ASSAY THYROID STIM HORMONE Pending 02/17/2017 Care Plan: A1C HPLC LO INC : 93117-8 Pending 02/17/2017 Patient Education: Patient Medication Summary Completed 11/23/2016 Care Plan: A1C HPLC LO INC : 52647-4 Pending 11/23/2016 Patient Education: Patient Medication Summary Completed 11/22/2016 Care Plan: COMPREHEN METABOLIC PANEL LOINC : 07091-3 Pending 11/22/2016 Care Plan: ASSAY THYROID STIM [...] prn. Tyle... 09/12/2016 Appointment: Yaima Johnson WPtel: [facility] ACUTE ILLNESS 09/12/2016 Patient Education: Patient Medication Summary Completed 09/12/2016 Visit Diagnosis Plan: Pain in right knee Discussion: MRI of right knee scheduled for this weekend by ortho ICD-9 : 719.46 ICD-10 : M25.561 07/28/2016 Visit Diagnosis Plan: Dermatitis, unspecified Discussion: Use clotrimazole/betamethasone BID to hand rash ICD-9 : 692.9 ICD-10 : L30.9 07/28/2016 Appointment: [facility] Johnson [facility] [phone] [facility] 07/27 confirmed `sl ACUTE ILLNESS 07/28/2016 Patient [...] how does 04/26/2016 Appointment: Yaima Johnson WPtel: [address] [place], [place] [phone] ACUTE ILLNESS 04/26/2016 Patient Education: Patient Medication Summary Completed 04/26/2016 Appointment: Yaima Johnson WPtel: [address] [place], [place] [phone] [place] INJECTION 04/22/2016 Patient Education: Patient Medication Summary Completed 04/22/2016 Appointment: Yaima Johnson WPtel: [address] [place], [place] [phone] Stool lab 01/04/2016 Patient Education: Patient Medication Summary Completed 01/04/2016 Visit Plan: Calmoseptine to [facility] [place] [facility] Discussed that liver lesion and right kidney cyst are stable dating back to 2009 so likely benign and will recheck in 1year Check CMP and CBC 12/09/2015 Visit Plan: Calmoseptine to [facility] [facility] Discussed that liver lesion and right kidney cyst are stable dating back to 2009 so likely benign and will recheck in 1year 12/09/2015 Appointment: Yaima Johnson WPtel: [address] [place], [place] [phone] FOLLOW UP 12/09/2015 Patient Education: Patient Medication [...] chest pain 09/10/2015 Appointment: Yaima Johnson WPtel: [address] [place], [place] [phone] ACUTE ILLNESS 09/10/2015 Patient Education: Patient Medication Summary Completed 09/10/2015 Appointment: Yaima Johnson WPtel: [address] [place], [place] [phone] [place] INJECTION 07/20/2015 Patient Education: Patient Medication Summary Completed 07/20/2015 Patient Education: Patient Medication Summary Completed 05/04/2015 Visit Plan: Observe left elbow for next 2 weeks and if not improving let us know Observe left leg bruising Can use voltaren gel to elbow Observe ribs Lidoderm patch for SI joint 04/23/2015 Appointment: Yaima Johnson WPtel: [address] [place], [place] [phone] [place] FOLLOW UP 04/23/2015 Patient Education: Patient Medication Summary Completed 04/23/2015 Patient Education: Patient Medication Summary Completed 04/20/2015 Visit Plan: Discussed CT results Ad d Miralax 1/2 cap every other day 03/24/2015 Visit Plan: Discussed CT results Ad d Miralax 1/2 cap every other day 03/24/2015 Appointment: Yaima Johnson WPtel: [address] [place] [address] 03/23 confirmed~sl FOLLOW UP 03/24/2015 Patient Education: Patient Medication Summary Completed 03/24/2015 Appointment: Yaima Johnson WPtel: [address] [place], [place] [phone] [place] INJECTION 03/09/2015 Patient Education: Patient Medication Summary Completed 03/09/2015 Visit Plan: Check CT scan of abdome n and pelvis with oral contrast Thoracic towel stretch 03/05/2015 Appointment: Yaima Johnson WPtel: [address] [place], [place] [phone] [place] FOLLOW UP 03/05/2015 Patient Education: Patient Medication Summary Completed 03/05/2015 Referral: Richmond Berger WPtel: [address] [id number] [place] Referral Initiated 02/23/2015 Visit Plan: Lab discussed--will tonio p thyroid dose the same Start back daily stretches Start carpal tunnel brace for left hand--for sleep, long drives and repetitive activities Increase protonix back up to BID and see Dr. Celine for EGD due to ongoing problems and history of esophageal stricture May use voltaren gel to right SI joint and left knee 02/19/2015 Appointment: Yaima Johnsontel: [address] [place], [place] [phone] 02/18/15 lm confirmed with cb FOLLOW UP 02/19/2015 Patient Education: Patient Medication Summary Completed 02/19/2015 Patient Education: Patient Medication Summary Completed 02/04/2015 Appointment: Yaima Johnson WPtel: [address] [place], [place] [phone] [place] FOLLOW UP 01/06/2015 Visit Plan: Decrease levothyroxine to 50mcg daily Recheck TSH and Free T4 in 2mos then fwup 12/25/2014 Appointment: Yaima Johnson WPtel: [address] [place] [address] ACUTE ILLNESS 12/25/2014 Patient Education: Patient Medication Summary Completed 12/25/2014 Patient Education: [facility] - [employer] - Levothyroxine - 18-64 - Dynamic Portal ID Completed 12/25/2014 Patient Education: Patient Medication Summary Completed 12/15/2014 Visit Plan: Observe left leg keep m eds same Has scheduled for 2nd epidural Recheck 3-4weeks after next epidural 11/26/2014 Appointment: Yaima Johnsontel: [address] [place], [place] [id number] 11/25 appt confirmed cn FOLLOW UP 11/26/2014 Patient Education: Patient Medication Summary Completed 11/26/2014 Visit Plan: Increase Protonix to 40 mg po BID Add Bentyl 10mg BID and up to TID prn Patient goes for back injection in 3 weeks Fwup 1 week after back injection 11/04/2014 Appointment: Yaima Johnsontel: [address] [place], [place] [phone] 11/03/ / 11/04 appt confirmed ACUTE ILLNESS 11/04/2014 Patient Education: Patient Medication Summary Completed 11/04/2014 Appointment: Yaima Johnson WPtel: [address] [place], [place] [phone] 10/14/14: doing better-canceled appt-lb ACUTE ILLNESS 10/15/2014 Visit Plan: hydration stop benadryl Observe and monitor Headaches Leg stretches, going to PT today-have them show stretches Notify if headaches, leg pain return/persist 09/01/2014 Appointment: Yaima Johnson WPtel: [address] [place], [place] [phone] ACUTE ILLNESS 09/01/2014 Patient Education: Patient Medication Summary Completed 09/01/2014 Patient Education: Patient Medication Summary Completed 08/05/2014 Care Plan: ASSAY OF FREE THYROXINE Ordered 08/05/2014 Care Plan: ASSAY THYROID STIM HORMONE Ordered 08/05/2014 Appointment: Yaima Johnson WPtel: [address] [place] [address] UA 07/10/2014 Patient Education: Patient Medication Summary Completed 07/10/2014 Patient Education: Patient Medication Summary Completed 07/03/2014 Care Plan: HEPATIC FUNCTION PANEL Ordered 07/03/2014 Visit Plan: Vaginal ring unable to be inserted do will have to stick with pill vaginally as prescribed for at least 6mo trial Saline nasal flushes and restart flonase 06/02/2014 Appointment: Yaima Johnson WPtel: [address] [place] [address] FOLLOW UP 06/02/2014 Patient Education: Patient Medication Summary Completed 06/02/2014 Appointment: Yaima Johnson WPtel: [address] [place], [place] [phone] BP CHECK 05/26/2014 Patient Education: Patient Medication Summary Completed 05/26/2014 Patient Education: Patient Medication Summary Completed 05/22/2014 Appointment: aYima Johnson WPtel: [address] [place], [place] [phone] BP CHECK 05/07/2014 Patient Education: Patient Medication Summary Completed 05/07/2014 Referral: Nitesh Avalos WPtel: [address] [place] 403 [id number] MRI Scheduled at [place], 04/17 3pm Completed 04/30/2014 Appointment: Yaima Johnson WPtel: [address] [place] [address] BP CHECK 04/15/2014 Visit Plan: Decrease premarin to 0. 3125mg for 1week then stop Restart estrogen vaginal tabs and Patient requests to see Dr. Restrepo for back but discussed at this time appears to need conservative management such as PT and epidurals Moniter BP 04/08/2014 Appointment: Yaima Johnson WPtel: [address] [place] [address] ACUTE ILLNESS 04/08/2014 Patient Education: Patient Medication Summary Completed 04/08/2014 Appointment: Yaima Johnson WPtel: [address] [place] [address] ACUTE ILLNESS 03/10/2014 Visit Plan: Thoracic stretches get y Skelaxin 800mg BID Use vimovo prn Use gemma prn 03/05/2014 Appointment: Yaima Johnson WPtel: [address] [place] [address] ACUTE ILLNESS 03/05/2014 Patient Education: Patient Medication Summary Completed 03/05/2014 Visit Plan: Saline nasal flushes pr n. Tylenol/Motrin prn headache. Notify if persists/symptoms worsening. Zithromax and Prednisone Supportive care. Rest, Fluids, Tylenol/Motrin prn fever or bodyaches. Notify if worsening symptoms. 07/29/2013 Appointment: Mimi Keenan WPtel: [address] [place] [address] FOLLOW UP 07/29/2013 Patient Education: Patient Medication Summary Completed 07/29/2013 Appointment: Mimi Keenan WPtel: [address] [place], [place] [phone] 05/22 patient called back and reschedule d 05/24 vm not set up yet ACUTE ILLNESS 05/27/2013 Visit Plan: Add miralax Cipro/Flagy l Pt has appointment with GI in NOV 03/20/2013 Appointment: Yaima Johnson WPtel: [address] [place], [place] [phone] ACUTE ILLNESS 03/20/2013 Patient Education: Patient Medication Summary Completed 03/20/2013 Visit Plan: Tullicups Stretches, ic e, voltaren gel TID 02/12/2013 Appointment: Yaima Johnson WPtel: [address] [place], [place] [phone] ACUTE ILLNESS 02/12/2013 Patient Education: Patient Medication [...] Oct 2012. 11/05/2012 Appointment: Lizzette Lozano WPtel: [address] [place], [place] [phone] ACUTE ILLNESS 11/05/2012 Patient Education: Patient Medication Summary Completed 11/05/2012 Visit Plan: Continue vimovo and Ske laxin and topical biofreeze Start PT May need MRI 10/04/2012 Appointment: Yaima Johnson WPtel: [address] [place], [place] [phone] FOLLOW UP 10/04/2012 Patient Education: Patient Medication Summary Completed 10/04/2012 Visit Plan: Change toprol back to b ystolic BP check in 3wks Continue to observe hands--no observed bruising today 09/24/2012 Appointment: Yaima Johnson WPtel: [address] [place], [place] [phone] 09/21 left message ACUTE ILLNESS 09/24/2012 Patient Education: Patient Medication Summary Completed 09/24/2012 Visit Plan: Proceed with EMG of RUE Continue vimovo and skelaxin May use Voltaren gel TID to elbow and wrist 05/10/2012 Appointment: Yaima Johnson WPtel: [address] [place] [address] 12/ left voicemail ACUTE ILLNESS 05/10/2012 Patient Education: [...] is improving 03/07/2012 Appointment: Yaima Johnson WPtel: [address] [place] [address] FOLLOW UP 03/07/2012 Patient Education: Patient Medication Summary Completed 03/07/2012 Visit Plan: Continue current dose C heck TSH, Free T4 in 2mos 02/01/2012 Appointment: Yaima Johnson WPtel: [address] [place] [address] FOLLOW UP 02/01/2012 Patient Education: Patient Medication Summary Completed 02/01/2012 Visit Plan: Levothyroxine 50mcg po daily 12/20/2011 Appointment: Yaima Johnson WPtel: [address] [place] [address] FOLLOW UP 12/20/2011 Patient Education: Patient Medication Summary Completed 12/20/2011 Visit Plan: Mupirocin topical and S eptra DS. 11/22/2011 Appointment: Lizzette Lozano WPtel: [address] [place] [address] ACUTE ILLNESS 11/22/2011 Patient Education: Patient Medication Summary Completed 11/22/2011 Appointment: Yaima Johnson WPtel: [address] [place] [address] 07/14/2011 Patient Education: Patient Medication Summary Completed 07/14/2011 Visit Plan: Finish current abx Greta r liquids to full liquids and then advance as tolerated If worsens will notify immediately Schedule with Dr. Berger for colonoscopy/EGD 07/11/2011 Appointment: Yaima Johnson WPtel: [address] [place] [address] ER Follow UP 07/11/2011 Patient Education: Patient Medication Summary Completed 07/11/2011 Visit Plan: Take treximet today and skelaxin at bedtime Add anusol cream for 1wk Discussed if colon continues to flare-up over the next 6mos will repeat colonoscopy 07/06/2011 Appointment: Yaima Johnson WPtel: [address] [place] [address] ACUTE ILLNESS 07/06/2011 Patient Education: Patient Medication Summary Completed 07/06/2011 Appointment: Yaima Johnson WPtel: [address] [place] [address] INJECTION 06/28/2011 Patient Education: Patient Medication Summary Completed 06/28/2011 Visit Plan: OMT done Increase Skela johann to TID Start PT Daily stretches 05/26/2011 Appointment: Yaima Johnson WPtel: [address] [place] [address] ACUTE ILLNESS 05/26/2011 Patient Education: Patient Medication Summary Completed 05/26/2011 Visit Plan: OMT done Daily stretche s, biofreeze Restart skelaxin 05/16/2011 Appointment: Yaima Johnson WPtel: [address] [place] [address] OMT 05/16/2011 Patient Education: Patient Medication Summary Completed 05/16/2011 Visit Plan: OMT done to back Stretc hes, moist heat and biofreeze Observe toenails 05/05/2011 Appointment: Yaima Johnson WPtel: [address] [place] [address] ACUTE ILLNESS 05/05/2011 Patient Education: Patient Medication Summary Completed 05/05/2011 Visit Plan: Finish Flagyl Continue Culturelle and add Levbid for 1more week 04/05/2011 Appointment: Yaima Johnson WPtel: [address] [place], [place] [phone] ER Follow UP 04/05/2011 Patient Education: Patient Medication Summary Completed 04/05/2011 Appointment: Lizzette Lozano WPtel: [address] [place], [place] [phone] ACUTE ILLNESS 03/25/2011 Appointment: Yaima Johnson WPtel: [address] [place] [address] UA 03/23/2011 Patient Education: Patient Medication Summary Completed 03/23/2011 Visit Plan: Recommend proceed with heart cath Will check PFTs 03/02/2011 Appointment: Yaima Johnson WPtel: [address] [place] [address] FOLLOW UP 03/02/2011 Patient Education: Patient Medication Summary Completed 03/02/2011 Appointment: Yaima Johnson WPtel: [address] [place] [address] LAB 01/14/2011 Patient Education: Patient Medication Summary [...] cardiology appnt. 01/05/2011 Appointment: Lizzette Lozano WPtel: [address] [place], [place] [phone] ACUTE ILLNESS 01/05/2011 Patient Education: Patient Medication Summary Completed 01/05/2011 Visit Plan: Once again stressed imp ortance of using premarin vaginal cream routinely to see if helps urinary symptoms Will culture urine Will observe lipomas--discussed may see surgery for removal 11/16/2010 Appointment: Yaima Johnsontel: [address] [place], [place] [phone] ACUTE ILLNESS 11/16/2010 Patient Education: Patient Medication Summary Completed 11/16/2010 Visit Plan: Injection to remigio as a escobar Pt will continue to moniter BP and pulse off meds Repeat potassium level in 1wk 11/04/2010 Appointment: Yaima Johnsontel: [address] [place] [address] FOLLOW UP 11/04/2010 Patient Education: Patient Medication Summary Completed 11/04/2010 Visit Plan: Saline nasal flushes pr n. Tylenol/Motrin prn headache. Notify if persists/symptoms worsening. 08/05/2010 Appointment: Yaima Johnsontel: [address] [place] [address] FOLLOW UP 08/05/2010 Patient Education: Patient Medication Summary Completed 08/05/2010 Visit Plan: Saline nasal flushes pr n. Tylenol/Motrin prn headache. Notify if persists/symptoms worsening. Nasacort AQ 1 spray each nostril BID 07/23/2010 Appointment: Yaima Johnsontel: [address] [place], [place] [address] ACUTE ILLNESS 07/23/2010 Patient Education: Patient Medication Summary Completed 07/23/2010 Appointment: Yaima Johnsontel: [address] [place], [place] [phone] UA 07/05/2010 Patient Education: Patient Medication Summary Completed 07/05/2010 Appointment: Yaima Johnsontel: [address] [place], [place] [phone] BP CHECK 06/28/2010 Patient Education: Patient Medication Summary Completed 06/28/2010 Appointment: Yaima Johnson: [address] [place], [place] [phone] [place] UA 06/14/2010 Appointment: Yaima Johnson WPtel: [address] [place], [place] [phone] [place] BP CHECK 06/14/2010 Appointment: Yaima Johnson WPtel: [address] [place], [place] [phone] BP CHECK 06/14/2010 Patient Education: Patient Medication Summary Completed 06/14/2010 Patient Education: Patient Medication Summary Completed 06/14/2010 Appointment: Yaima Johnson WPtel: [address] [place], [place] [phone] [place] BP CHECK 06/10/2010 Visit Plan: Decrease lisinopril hct to 10/12.5mg QD and moniter BP BP check in 2-3wks--if pulse is increasing will go back to bystolic See ENT to evaluate hoarseness 06/07/2010 Appointment: Yaima Johnson WPtel: [address] [place], [place] [phone] FOLLOW UP 06/07/2010 Patient Education: Patient Medication [...] (See printoff) 05/12/2010 Appointment: Lizzette Lozano WPtel: [address] [place], [place] [phone] ACUTE ILLNESS 05/12/2010 Patient Education: Patient Medication Summary Completed 05/12/2010 Visit Plan: Continue Bentyl at QAC and HS Continue protonix but increase to BID for 5-7 days If any fever or signs of divertuclitis develop notify 04/27/2010 Appointment: Yaima Johnsontewilson: [address] [place] [address] ACUTE ILLNESS 04/27/2010 Patient Education: Patient Medication Summary Completed 04/27/2010 Visit Plan: flako Chavezils . Reynaldozolam #90, -written RX 04/19/2010 Appointment: Lizzette Lozano WPtel: [address] [place] [address] ACUTE ILLNESS 04/19/2010 Patient Education: Patient Medication Summary Completed 04/19/2010 Appointment: Yaima Johnson WPtel: [address] [place] [address] LAB 04/12/2010 Patient Education: Patient Medication Summary Completed 04/12/2010 Appointment: Yaima Johnson WPtel: [address] [place] [address] 04/08/2010 Patient Education: Patient Medication Summary Completed 04/08/2010 Visit Plan: Use Treximet prn Start daily Macrobid Restart premarin vaginal cream Flu shot given 03/09/2010 Appointment: Yaima Johnson WPtel: [address] [place] [address] FOLLOW UP 03/09/2010 Patient Education: Patient Medication Summary Completed 03/09/2010 Appointment: Yaima Johnson WPtel: [address] [place] [address] BP CHECK 01/19/2010 Patient Education: Patient Medication Summary Completed 01/19/2010 Visit Plan: Check CT head Increase Bystolic to 5mg QD BP check in 2wks 01/04/2010 Appointment: Yaima Johnson WPtel: [address] [place] [address] ACUTE ILLNESS 01/04/2010 Patient Education: Patient Medication Summary Completed 01/04/2010 Appointment: Yaima Johnson WPtel: [address] [place] [address] BP CHECK 12/21/2009 Patient Education: Patient Medication Summary Completed 12/21/2009 Visit Plan: Change cenestin back to Premarin Cont to moniter BP BP check in 1wk 12/14/2009 Appointment: Yaima Johnson WPtel: [address] [place], [place] [phone] FOLLOW UP 12/14/2009 Patient Education: Patient Medication [...] a Z-pack. 11/23/2009 Appointment: Lizzette Lozano WPtel: [address] [place], [place] [id number] FOLLOW UP 11/23/2009 Patient Education: Patient Medication Summary Completed 11/23/2009 Appointment: Yaima Johnson WPtel: [address] [place], [place] [phone] [place] LAB 09/29/2009 Patient Education: Patient Medication Summary Completed 09/29/2009 Appointment: Yaima Johnson WPtel: [address] [place], [place] [id number] [place] LAB 08/12/2009 Patient Education: Patient Medication Summary Completed 08/12/2009 Referral: Richmond Berger WPtel: [address] [id number] [place] Referral Appointment Requested Referral: Jayce Boyce WPtel: [address] [id number] [place] Referral Appointment Requested Referral: Naldo Johnson WPtel: [address] [id number] [place] Referral Initiated Referral: Naldo Johnson WPtel: [address] [id number] [place] Referral Appointment Requested Instructions Comment . [...]
--- OUTSIDE RECORDS SUMMARY | 2019-08-15 06:21 | XMS REPORT | CCD ---
Author Author Fay Johnson D.O. 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 [place] Medicare Part B [id number] 2018 Unknown Family History Family History data not found Social History Social History Element Codes Description Effective Dates Marital status Unknown M arried 05/16/[address]: 718015671 Never smoker 04/05/2011 Allergies, Adverse Reactions, Alerts [...] Fill Instructions Mobic 7.5 mg tablet RxNorm: 330737 1 Tablet(s) PO QOD opposite days as alev e 11/21/2018 11/21/2018 In active dicyclomine 10 mg ca psule RxNorm: 334502 1 Capsule(s) PO TID a s needed for abdominal pain 08/23/2018 No Stop Date Active alprazolam 0.25 mg t ablet RxNorm: 399957 1 Tablet(s) PO Q8H as needed for anxiety 08/10/2018 11/20/2018 In active [AttnRPh: Saving apply/adjudicate RxGRP: SG20 RxBIN:[id number] RxPCN: ID#:[id number]] levothyroxine 25 mcg tablet RxNorm: 208944 1 Tablet(s) PO QD rep laces 50mcg dose 08/06/2018 10/04/2018 In active levothyroxine 25 mcg tablet RxNorm: 744798 1 Tablet(s) PO QD rep laces 50mcg dose 08/06/2018 08/05/2018 In active levothyroxine 50 mcg tablet RxNorm: 337872 1 Tablet(s) PO QD 07/26/2018 08/05/2018 Inactive Generic For:*SYNTHROID 0.05MG TAB 08/09 8:59:33 AM Mobic 7.5 mg tablet RxNorm: 564813 1 Tablet(s) PO QOD opposite days as alev e 07/10/2018 09/07/2018 In active Mobic 7.5 mg tablet RxNorm: 848782 1 Tablet(s) PO QD 07/10/2018 07/09/2018 Inactive Toprol XL 25 mg tabl et,extended release RxNorm: 342379 1 Tablet(s) PO QD 06/18/2018 03/14/2019 Ac tive Generic For:TOPROL XL 25MG TAB SA 2015 9:08:41 AM amoxicillin 500 mg c apsule RxNorm: 013939 1 Capsule(s) PO TID 06/04/2018 06/10/2018 Inactive amoxicillin 500 mg c apsule RxNorm: 080842 1 Capsule(s) PO TID 06/04/2018 06/03/2018 Inactive Skelaxin 800 mg tablet RxNorm: 071261 1 Tablet(s) PO BID as needed for muscle spasm 05/31/2018 No Stop Date Active levothyroxine 50 mcg tablet RxNorm: 313613 1 Tablet(s) PO QD 02/02/2018 07/25/2018 Inactive Generic For:*SYNTHROID 0.05MG TAB 08/09 8:59:33 AM Toprol XL 25 mg tabl et,extended release RxNorm: 155739 1 Tablet(s) PO QD 12/19/2017 06/16/2018 In active Generic For:TOPROL XL 25MG TAB SA 12/20 9:08:41 AM ranitidine 150 mg ta blet RxNorm: 553463 1 Tablet(s) PO BID 12/11/2017 05/31/2018 Inactive levothyroxine 50 mcg tablet RxNorm: 574359 1 Tablet(s) PO QD SHIMON E 1 TABLET BY MOUTH EVERY DAY 08/03/2017 02/02/2018 Inactive Generic For:*SYNTHROID 0.05 MG TAB 08/09/2016 8:59:33 AM Singulair 10 mg tablet RxNorm: 367798 1 Tablet(s) PO QHS 07/11/2017 09/10/2017 Inactive dicyclomine 10 mg ca psule RxNorm: 141041 1 Capsule(s) PO TID a s needed for abdominal pain 06/08/2017 08/22/2018 Inactive ranitidine 150 mg ta blet RxNorm: 121985 1 Tablet(s) PO BID 06/08/2017 09/05/2017 Inactive Toprol XL 25 mg tabl et,extended release RxNorm: 423068 1 Tablet(s) PO QD 06/08/2017 12/19/2017 In active Generic For:TOPROL XL 25MG TAB SA 12/20 9:08:41 AM betamethasone diprop ionate 0.05 % topical cream RxNorm: 436395 1 Application TOP QHS 03/28/2017 10/03/2018 Inactive levothyroxine 50 mcg tablet RxNorm: 488052 1 Tablet(s) PO QD SHIMON E 1 TABLET BY MOUTH EVERY DAY 02/03/2017 08/01/2017 Inactive Generic For:*SYNTHROID 0.05 MG TAB 08/09/2016 8:59:33 AM ranitidine 150 mg ta blet RxNorm: 756929 1 Tablet(s) PO BID 12/15/2016 06/08/2017 Inactive Toprol XL 25 mg tabl et,extended release RxNorm: 295934 1 Tablet(s) PO QD 12/15/2016 06/08/2017 In active Generic For:TOPROL XL 25MG TAB SA 12/20 9:08:41 AM ranitidine 150 mg ta blet RxNorm: 529543 1 Tablet(s) PO BID 11/11/2016 12/10/2016 Inactive ranitidine 75 mg tablet RxNorm: 012367 1 Tablet(s) PO QD 10/21/2016 11/10/2016 Inactive ranitidine 75 mg tablet RxNorm: 182209 1 Tablet(s) PO QD 10/21/2016 10/20/2016 Inactive Tamiflu 75 mg capsule RxNorm: 354082 1 Capsule(s) PO BID 09/12/2016 09/16/2016 Inactive Promethegan 25 mg re ctal suppository RxNorm: 916179 1 Suppository RTL Q4H as needed 09/12/2016 03/27/2017 In active levothyroxine 50 mcg tablet RxNorm: 150323 TAKE 1 TABLET BY MOUT H EVERY DAY 08/09/2016 02/03/2017 In active Generic For:*SYNTHROID 0.05MG TAB 08/09 8:59:33 AM famotidine 40 mg tablet RxNorm: 846704 1 Tablet(s) PO BID 07/22/2016 10/20/2016 Inactive clotrimazole-betamet hasone 1 %-0.05 % topical cream RxNorm: 534465 1 Application TOP BID to rash prn--was supposed to be cream not lotion 06/23/2016 03/27/2017 Inactive famotidine 40 mg tablet RxNorm: 803148 1 Tablet(s) PO BID 06/23/2016 07/21/2016 Inactive Toprol XL 25 mg tabl et,extended release RxNorm: 443701 1 Tablet(s) PO QD 06/14/2016 12/15/2016 In active Generic For:TOPROL XL 25MG TAB SA 12/20 9:08:41 AM dicyclomine 10 mg ca psule RxNorm: 443378 1 Capsule(s) PO TID a s needed for abdominal pain 04/26/2016 06/07/2017 Inactive dicyclomine 10 mg ca psule RxNorm: 391590 1 Capsule(s) PO TID a s needed for abdominal pain 04/26/2016 06/08/2017 Inactive famotidine 40 mg tablet RxNorm: 549426 1 Tablet(s) PO QD 04/26/2016 06/22/2016 Inactive Protonix 40 mg table t,delayed release RxNorm: 034278 1 Tablet(s) PO QD 02/05/2016 03/27/2017 In active levothyroxine 50 mcg tablet RxNorm: 650521 1 Tablet(s) PO QD 01/25/2016 07/22/2016 Inactive Toprol XL 25 mg tabl et,extended release RxNorm: 316992 TAKE ONE TABLET BY [facility] EVERY DAY 12/21/2015 06/14/2016 Inactive Generic For:TOPROL XL 25MG TAB SA 12/20 9:08:41 AM Protonix 40 mg table t,delayed release RxNorm: 956082 1 Tablet(s) PO QD 07/27/2015 01/22/2016 In active levothyroxine 50 mcg tablet RxNorm: 219969 1 Tablet(s) PO QD 07/22/2015 01/17/2016 Inactive Phenergan 25 mg rect al suppository RxNorm: 654016 1 Suppository RTL Q4H as needed for nausea and vomiting 07/20/2015 12/08/2015 Inactive Toprol XL 25 mg tabl et,extended release RxNorm: 114621 1 Tablet(s) PO QD 06/15/2015 12/11/2015 In active clotrimazole-betamet hasone 1 %-0.05 % topical cream RxNorm: 628307 1 Application TOP BID to rash prn--was supposed to be cream not lotion 05/20/2015 05/19/2015 Inactive Protonix 40 mg table t,delayed release RxNorm: 983137 1 Tablet(s) 1 Tablet( s) PO QD 04/23/2015 07/27/2015 In active levothyroxine 50 mcg tablet RxNorm: 920644 1 Tablet(s) PO QD 04/23/2015 07/21/2015 Inactive Lidoderm 5 % (700 mg /patch) adhesive patch RxNorm: 0784707 1-2 Unit Dose TOP QD on for 12hrs then off for 12hrs 04/23/2015 03/27/2016 Inactive Miralax 17 gram oral powder packet RxNorm: 268436 1/2 Unit Dose PO ever y other day 03/24/2015 03/29/2015 In active levothyroxine 50 mcg tablet RxNorm: 034928 1 Tablet(s) PO QD 02/19/2015 04/19/2015 Inactive dicyclomine 10 mg ca psule RxNorm: 955902 1 Capsule(s) PO TID a s needed for abdominal pain 02/19/2015 04/25/2016 Inactive dicyclomine 10 mg ca psule RxNorm: 413671 1 Capsule(s) PO TID a s needed for abdominal pain 12/25/2014 02/18/2015 Inactive Protonix 40 mg table t,delayed release RxNorm: 811012 1 Tablet(s) PO BID 12/25/2014 03/04/2015 In active levothyroxine 50 mcg tablet RxNorm: 619896 1 Tablet(s) PO QD 12/25/2014 02/18/2015 Inactive Flonase 50 mcg/actua tion nasal spray,suspension RxNorm: 226589 2 Earle NASAL QHS 12/25/2014 10/03/2018 In active [SAVINGS FOR NON-COVERED DRUGS -- BIN:00 3585, PCN: ASPROD1, Group: XXXXX, ID# [id number], Questions: . THIS IS NOT INSURANCE.] Toprol XL 25 mg tabl et,extended release RxNorm: 522315 1 Tablet(s) PO QD 12/01/2014 05/29/2015 In active dicyclomine 10 mg ca psule RxNorm: 056883 1 Capsule(s) PO TID a s needed for abdominal pain 12/01/2014 12/24/2014 Inactive levothyroxine 75 mcg tablet RxNorm: 051073 1 Tablet(s) PO QD 11/10/2014 12/24/2014 Inactive [AttnRPh: Saving apply/adjudicate RxGRP: SG20 RxBIN:[id number] RxPCN: ID#:[id number]] Protonix 40 mg table t,delayed release RxNorm: 496438 1 Tablet(s) BID 1 Tab let(s) PO QD 11/04/2014 12/24/2014 Inactive dicyclomine 10 mg ca psule RxNorm: 348606 1 Capsule(s) PO TID a s needed for abdominal pain 11/04/2014 11/30/2014 Inactive Protonix 40 mg table t,delayed release RxNorm: 109249 Tablet(s) 1 Tablet(s) PO QD 10/14/2014 11/03/2014 In active Flonase 50 mcg/actua tion nasal spray,suspension RxNorm: 750912 2 Earle NASAL QHS 09/01/2014 12/24/2014 In active [SAVINGS FOR NON-COVERED DRUGS -- BIN:00 3585, PCN: ASPROD1, Group: XXXXX, ID# [id number], Questions: . THIS IS NOT INSURANCE.] Toprol XL 25 mg tabl et,extended release RxNorm: 393375 Tablet(s) 1/2 Tablet( s) PO QD 08/28/2014 11/25/2014 Inactive [SAVINGS FOR UNINSURED PATIENTS -- BIN:0 41597, PCN: [id number], Group: [id number], ID# [id number], Process claim through [employer], for questions: . THIS IS NOT INSURANCE.] estradiol 0.01% (0.1 mg/gram) vaginal cream RxNorm: 870651 1 Gram(s) VAG Insert vaginally at bedtime, Monday, Monday and Monday06/26/2014 12/24/2014 Inactive Toprol XL 25 mg tabl et,extended release RxNorm: 013603 1/2 Tablet(s) PO QD 06/06/2014 08/27/2014 In active [SAVINGS FOR UNINSURED PATIENTS -- BIN:0 40075, PCN: ASPROD1, Group: [id number], ID# [id number], Process claim through [employer], for questions: . THIS IS NOT INSURANCE.] estradiol 0.5 mg tablet RxNorm: 212883 1 Tablet(s) VAG Place one tablet in the vagina at bedtime three times a week 06/02/2014 06/25/2014 Inactive Estring 2 mg vaginal RxNorm: 907536 VAG Insert vaginally and remove after 90 days 05/27/2014 06/01/2014 Inactive Toprol XL 25 mg tabl et,extended release RxNorm: 219531 1/2 Tablet(s) PO QD 04/15/2014 04/14/2014 In active Protonix 40 mg table t,delayed release RxNorm: 784027 1 Tablet(s) PO QD 04/15/2014 10/14/2014 In active estradiol 0.5 mg tablet RxNorm: 167209 1 Tablet(s) VAG Place one tablet in the vagina at bedtime twice a week 04/15/2014 06/01/2014 Inactive Toprol XL 25 mg tabl et,extended release RxNorm: 054691 1/2 Tablet(s) PO QD 04/15/2014 06/05/2014 In active [SAVINGS FOR UNINSURED PATIENTS -- BIN:0 10197, PCN: ASPROD1, Group: [id number], ID# [id number], Process claim through [employer], for questions: . THIS IS NOT INSURANCE.] levothyroxine 75 mcg tablet RxNorm: 488072 1 Tablet(s) PO QD 04/08/2014 04/07/2014 Inactive [AttnRPh: Saving apply/adjudicate RxGRP: SG20 RxBIN:[id number] RxPCN: ID#:[id number]] Flonase 50 mcg/actua tion nasal spray,suspension RxNorm: 800593 1 Earle NASAL BID 04/08/2014 08/31/2014 In active levothyroxine 75 mcg tablet RxNorm: 286709 1 Tablet(s) PO QD 04/08/2014 10/04/2014 Inactive [AttnRPh: Saving apply/adjudicate RxGRP: SG20 RxBIN:[id number] RxPCN: ID#:[id number]] estradiol 0.5 mg tablet RxNorm: 993573 Tablet(s) PO Place one tablet in the vag bentley at bedtime one time weekly 04/08/2014 04/07/2014 Inactive levothyroxine 75 mcg tablet RxNorm: 323715 1 Tablet(s) PO QD 03/20/2014 04/07/2014 Inactive [AttnRPh: Saving apply/adjudicate RxGRP: SG20 RxBIN:[id number] RxPCN: ID#:[id number]] Skelaxin 800 mg tablet RxNorm: 294635 1 Tablet(s) PO TID as needed for muscle spasm 03/05/2014 11/03/2014 Inactive alprazolam 0.25 mg t ablet RxNorm: 962641 1 Tablet(s) PO Q8H as needed for anxiety 02/27/2014 08/05/2018 In active [AttnRPh: Saving apply/adjudicate RxGRP: SG20 RxBIN:[id number] RxPCN:HT ID#:[id number]] Synthroid 75 mcg tablet RxNorm: 984026 1 Tablet(s) PO QD 11/29/2013 11/03/2014 Inactive levothyroxine 75 mcg tablet RxNorm: 808428 1 Tablet(s) PO QD -Ne ed labs 11/27/2013 03/19/2014 In active [AttnRPh: Saving apply/adjudicate RxGRP: SG20 RxBIN:[id number] RxPCN: ID#:[id number]] Protonix 40 mg table t,delayed release RxNorm: 266468 1 Tablet(s) PO QD 10/07/2013 04/04/2014 In active Synthroid 75 mcg tablet RxNorm: 589371 1 Tablet(s) PO QD 09/02/2013 11/28/2013 Inactive Zithromax 500 mg tablet RxNorm: 480356 1 Tablet(s) PO QD 07/29/2013 08/04/2013 Inactive prednisone 20 mg tablet RxNorm: 732035 1 Tablet(s) PO QD 07/29/2013 08/02/2013 Inactive Synthroid 75 mcg tablet RxNorm: 890322 1 Tablet(s) PO QD Patient wants it put o n hold 05/14/2013 09/02/2013 Inactive Synthroid 75 mcg tablet RxNorm: 956347 1 Tablet(s) PO QD 05/01/2013 05/13/2013 Inactive Flagyl 500 mg tablet RxNorm: 926686 1 Tablet(s) PO BID 03/20/2013 04/02/2013 Inactive Cipro 500 mg tablet RxNorm: 507432 1 Tablet(s) PO QD 03/20/2013 04/02/2013 Inactive levothyroxine 75 mcg tablet RxNorm: 653656 1 Tablet(s) PO QD 11/05/2012 05/03/2013 Inactive Septra DS 800 mg-160 mg tablet RxNorm: 646886 1 Tablet(s) PO BID an tibiotic 11/05/2012 11/09/2012 In active Bystolic 5 mg tablet RxNorm: 871969 1 Tablet(s) PO QD 10/10/2012 08/05/2018 Inactive Bystolic 5 mg tablet RxNorm: 596376 1 Tablet(s) PO QD 10/10/2012 02/11/2013 Inactive Protonix 40 mg table t,delayed release RxNorm: 264520 1 Tablet(s) PO QD 09/24/2012 09/18/2013 In active Synthroid 75 mcg tablet RxNorm: 905635 1 Tablet(s) PO QD 08/01/2012 09/23/2012 Inactive Synthroid 75 mcg tablet RxNorm: 145300 1 Tablet(s) PO QD Brand name only 07/03/2012 07/31/2012 In active Skelaxin 800 mg tablet RxNorm: 983524 1 Tablet(s) PO TID prn spasm 05/02/2012 03/04/2014 Inactive Zithromax Z-Leonel 250 mg tablet RxNorm: 602512 Tablet(s) PO As Direc sheridan 04/12/2012 05/01/2012 In active levothyroxine 75 mcg tablet RxNorm: 912647 1 Tablet(s) PO QD 04/03/2012 08/05/2018 Inactive levothyroxine 75 mcg tablet RxNorm: 210114 1 Tablet(s) PO QD 04/03/2012 07/01/2012 Inactive Ultram 50 mg tablet RxNorm: 576636 1-2 Tablet(s) PO TID as needed for migra ine 04/03/2012 11/03/2014 In active Vimovo 500 mg-20 mg tablets,immediate & delayed release RxNorm: 946088 1 Tablet(s) PO BID for pain 03/28/2012 07/25/2012 Inactive levothyroxine 75 mcg tablet RxNorm: 760862 1 Tablet(s) PO QD 03/07/2012 04/02/2012 Inactive levothyroxine 50 mcg tablet RxNorm: 355510 1 Tablet(s) PO QD 02/01/2012 09/23/2012 Inactive levothyroxine 50 mcg tablet RxNorm: 547684 1 Tablet(s) PO QD 12/20/2011 01/31/2012 Inactive Septra DS 800 mg-160 mg Tab RxNorm: 412105 1 Tablet(s) PO BID 11/22/2011 11/26/2011 Inactive mupirocin 2 % Ointment RxNorm: 111961 1 Application TOP TID 11/22/2011 11/28/2011 Inactive Protonix 40 mg table t,delayed release RxNorm: 324543 1 Tablet(s) PO QD 09/13/2011 09/24/2012 In active hydrocodone-acetamin ophen 5 mg-500 mg Tab RxNorm: 648965 1 Tablet(s) PO Q4-6H as needed for pain 07/13/2011 11/21/2011 Inactive Skelaxin 800 mg tablet RxNorm: 303548 1 Tablet(s) PO TID prn spasm 06/30/2011 11/21/2011 Inactive Skelaxin 800 mg Tab RxNorm: 564649 1 Tablet(s) PO TID prn spasm 05/23/2011 No Stop Date Active potassium chloride E R 10 mEq Cap RxNorm: 1163736 2 Capsule(s) PO QD 12/30/2010 01/30/2011 Inactive potassium chloride E R 10 mEq Cap RxNorm: 3756599 1 Capsule(s) PO QD 12/29/2010 12/29/2010 Inactive Take 2 tablets by mouth on Monday, , Monday and 1 tablet by mouth on Monday, , Monday and Monday Premarin 0.9 mg Tab RxNorm: 915365 1 Tablet(s) PO QD 12/09/2010 01/07/2011 Inactive potassium chloride E R 10 mEq Cap RxNorm: 9017103 1 Capsule(s) PO QD 12/07/2010 No Stop Date Active Take 2 tablets by mouth on Monday, , Monday and 1 tablet by mouth on Monday, , Monday and Monday promethazine 12.5 mg Rectal Suppository RxNorm: 214049 1 Application RTL Q6- 8H 12/07/2010 12/16/2010 In active prn nausea and vomiting potassium chloride E R 10 mEq Cap RxNorm: 3860523 1 Capsule(s) PO QD 12/03/2010 No Stop Date Active MWF take 2 tablets daily. Take one tabl et daily on other days. Protonix 40 mg Tab RxNorm: 572486 1 Tablet(s) PO QD 09/27/2010 09/13/2011 Inactive cefdinir 300 mg Cap RxNorm: 790136 2 Capsule(s) PO QD 08/05/2010 08/04/2010 Inactive cefdinir 300 mg Cap RxNorm: 622307 2 Capsule(s) PO QD 08/05/2010 08/14/2010 Inactive Premarin 1.25 mg Tab RxNorm: 082110 1 Tablet(s) PO QD 06/14/2010 12/09/2010 Inactive lisinopril-hydrochlo rothiazide 10 mg-12.5 mg Tab RxNorm: 535015 1 Tablet(s) PO 06/07/2010 11/04/2010 In active alprazolam 0.25 mg Tab RxNorm: 813549 1 Tablet(s) PO TID written script provid ed to patient. 05/24/2010 06/22/2010 Inactive Treximet 85 mg-500 m g Tab RxNorm: 838302 1 Tablet(s) PO PRN 05/12/2010 09/23/2012 Inactive lisinopril-hydrochlo rothiazide 20 mg-12.5 mg Tab RxNorm: 781979 1 Tablet(s) PO QD 05/12/2010 11/04/2010 In active alprazolam 0.25 mg Tab RxNorm: 777992 1 Tablet(s) PO TID written script provid ed to patient. 04/19/2010 05/23/2010 Inactive Macrobid 100 mg Cap RxNorm: 4811266 1 Capsule(s) PO BID 04/08/2010 04/17/2010 Inactive Premarin 1.25 mg Tab RxNorm: 443068 1 Tablet(s) PO QD 03/22/2010 06/13/2010 Inactive Amitriptyline 10 mg Tab RxNorm: 261425 1 Tablet(s) PO QD 03/22/2010 06/19/2010 Inactive Protonix 40 mg Tab RxNorm: 596045 1 Tablet(s) PO QD 03/22/2010 06/19/2010 Inactive alprazolam 0.25 mg Tab RxNorm: 891568 1 Tablet(s) PO TID 03/10/2010 04/08/2010 Inactive Macrobid 100 mg Cap RxNorm: 9243773 1 Capsule(s) PO QD 03/09/2010 04/26/2010 Inactive Bystolic 5 mg Tab RxNorm: 442742 1 Tablet(s) PO QD Fill at 30 if insuranc e will not accept 03/01/2010 11/04/2010 Inactive Protonix 40 mg Tab RxNorm: 730081 1 Tablet(s) PO QD 11/23/2009 12/22/2009 Inactive Premarin 1.25 mg Tab RxNorm: 830322 1 Tablet(s) PO QD 11/23/2009 12/13/2009 Inactive Bentyl 10 mg Cap RxNorm: 621560 1 Capsule(s) PO QID 11/23/2009 11/15/2010 Inactive Elavil 10 mg Tab RxNorm: 166611 1 Tablet(s) PO QPM 11/19/2009 11/15/2010 Inactive Cranberry Concentrat e capsule RxNorm: 1 Capsule(s) PO QD No Start Date Active Estrace 0.01% (0.1 m g/gram) vaginal cream RxNorm: 019963 1 Application VAG wee kly No Start Date Active Xyzal 5 mg tablet RxNorm: 042121 1 Tablet(s) PO QD No Start Date Active Protonix 40 mg table t,delayed release RxNorm: 514059 1 Tablet(s) PO QD No Start Date Active fluticasone propiona te 50 mcg/actuation nasal spray,suspension RxNorm: 1640530 2 Earle NASAL QD No Start Date Active Vitamin D3 2,000 uni t tablet RxNorm: 171319 1 Tablet(s) PO QD No Start Date Active levothyroxine 50 mcg tablet RxNorm: 242858 1 Tablet(s) PO QD No Start Date Active BIOFREEZE Top RxNorm: Topical No Start Date Active meloxicam 15 mg tablet RxNorm: 829130 1 Tablet(s) PO QD as needed No Start Date Active multivitamin chewabl e tablet RxNorm: 1 Tablet(s) PO QD No Start Date Active Estring 2 mg vaginal RxNorm: 037750 VAG Insert vaginally and remove after 90 days No Start Date 05/26/2014 Inactive Premarin 0.625 mg ta blet RxNorm: 643496 1 Tablet(s) PO QD No Start Date 04/07/2014 Inactive Miralax 17 gram/dose oral powder RxNorm: 191929 1 capful PO QD No Start Date 08/05/2018 Inactive diazepam 5 mg tablet RxNorm: 668891 2 Tablet(s) PO before MRI No Start Date 10/03/2018 Inactive Protonix 40 mg table t,delayed release RxNorm: 282152 1 Tablet(s) PO QD No Start Date 07/26/2015 Inactive B12 sublingual RxNorm: 72706 sublingual No Start Date 03/27/2017 Inactive Treximet 85 mg-500 m g Tab RxNorm: 936902 Tablet(s) PO PRN No Start Date 05/11/2010 Inactive Gemma 180 mg Tab RxNorm: 137631 1 Tablet(s) PO QD No Start Date 12/19/2011 Inactive Gemma Allergy 180 mg tablet RxNorm: 749906 1 Tablet(s) PO QD No Start Date 08/31/2014 Inactive estradiol 0.01% (0.1 mg/gram) vaginal cream RxNorm: 952501 1 Gram(s) VAG Insert vaginally at bedtime, Monday, Monday and Monday No Start Date 06/25/2014 Inactive Tylenol Ex Str Arthr itis Pain 500 mg tablet RxNorm: 734978 2 Tablet(s) PO TID No Start Date 08/05/2018 Inactive Toprol XL 25 mg tabl et,extended release RxNorm: 399130 1 Tablet(s) PO QD No Start Date 11/30/2014 Inactive Ultram 50 mg tablet RxNorm: 809798 1-2 Tablet(s) PO TID as needed for migra ine No Start Date 04/02/2012 Inactive Premarin 0.9 mg Tab RxNorm: 725298 1 Tablet(s) PO QD No Start Date 12/19/2011 Inactive Bystolic 5 mg Tab RxNorm: 850397 1/2 Tablet(s) PO QD No Start Date 02/28/2010 Inactive Ondansetron HCl 4 mg Tab RxNorm: 904373 1 Tablet(s) PO TID or every 8hrs as needed for nausea No Start Date 11/21/2011 Inactive Protonix 40 mg table t,delayed release RxNorm: 567997 1 Tablet(s) PO BID No Start Date 12/24/2014 Inactive potassium chloride E R 10 mEq Cap RxNorm: 1889549 1 Capsule(s) PO QD No Start Date 12/02/2010 Inactive Miralax 17 gram/dose oral powder RxNorm: 158905 1 capful PO QD No Start Date 03/29/2015 Inactive levothyroxine 75 mcg tablet RxNorm: 140272 1 Tablet(s) PO QD six days a week No Start Date 12/24/2014 Inactive Cenestin 1.25 mg Tab RxNorm: 290343 1 Tablet(s) PO QD No Start Date 01/03/2010 Inactive calcium-vitamin D3 5 00 mg oral wafer RxNorm: 1 Tablet(s) PO QD No Start Date 12/08/2015 Inactive Vimovo 500 mg-20 mg tablet,immediate & delayed release RxNorm: 460296 1 Tablet(s) PO QD No Start Date 11/03/2014 Inactive alprazolam 0.25 mg t ablet RxNorm: 169062 1 Tablet(s) PO Q8H as needed for anxiety/stress No Start Date 12/24/2014 Inactive betamethasone diprop ionate 0.05 % topical cream RxNorm: 251274 1 Application TOP QHS No Start Date 03/27/2017 Inactive cetirizine 10 mg cap verito RxNorm: 9448244 1 Capsule(s) PO QD No Start Date 09/10/2017 Inactive Skelaxin 800 mg Tab RxNorm: 618840 Tablet(s) PO PRN No Start Date 11/15/2010 Inactive Zithromax Z-Leonel 250 mg tablet RxNorm: 621871 Tablet(s) PO As Direc sheridan No Start Date 04/11/2012 Inactive Zithromax Z-Leonel 250 mg Tab RxNorm: 996232 Tablet(s) PO as directed No Start Date 11/15/2010 Inactive Gemma 180 mg tablet RxNorm: 420397 1 Tablet(s) PO QD No Start Date 12/24/2014 Inactive Anusol-HC 2.5 % Rect al Cream RxNorm: 588599 Application RTL BID f or 1wk No Start Date 12/19/2011 Inactive metoprolol succinate ER 25 mg 24 hr Tab RxNorm: 027635 1/2 Tablet(s) PO QD No Start Date 10/03/2012 Inactive clotrimazole-betamet hasone 1 %-0.05 % Lotion RxNorm: 889266 Application TOP BID t o rash No Start Date 05/15/2011 Inactive ranitidine 150 mg ta blet RxNorm: 010043 1 Tablet(s) PO QD No Start Date 12/06/2018 Inactive ranitidine 150 mg ta blet RxNorm: 048433 1 Tablet(s) PO BID No Start Date 11/10/2016 Inactive promethazine 12.5 mg Rectal Suppository RxNorm: 684400 1 Application RTL Q6- 8H No Start Date 12/06/2010 Inactive Maxalt-BUILD MASTER 10 mg dis integrating tablet RxNorm: 744074 1 Tablet(s) PO at [facility] onset--may repeat in 2hrs if needed No Start Date 12/24/2014 Inactive Benadryl 25 mg capsule RxNorm: 0899633 Capsule(s) PO as needed No Start Date 12/24/2014 Inactive Cranberry Concentrat e 500 mg capsule RxNorm: 640434 1 Capsule(s) PO QD No Start Date 09/10/2017 Inactive Mobic 15 mg tablet RxNorm: 462483 1 Tablet(s) PO on opposite days of Aleve No Start Date 11/20/2018 Inactive Bystolic 5 mg tablet RxNorm: 036836 1 Tablet(s) PO QD No Start Date 10/09/2012 Inactive Premarin 1.25 mg Tab RxNorm: 004610 1 Tablet(s) PO QD No Start Date 03/21/2010 Inactive clotrimazole-betamet hasone 1 %-0.05 % topical cream RxNorm: 848628 Application TOP BID to rash prn--was supposed to be cream not lotion No Start Date 12/19/2011 Inactive azithromycin 250 mg Tab RxNorm: 780766 2 Tablet(s) PO QD take 2 tablets (500 mg ) by oral route once daily for 1 day then 1 tablet (250 mg) by oral route once daily for 4 days No Start Date 06/06/2010 Inactive hydrocodone-acetamin ophen 5 mg-500 mg Tab RxNorm: 253101 1 Tablet(s) PO Q4-6H as needed for pain No Start Date 07/12/2011 Inactive Levbid 0.375 mg 12 h r Tab RxNorm: 8782473 1 Tablet(s) PO BID a s needed for stomach cramping No Start Date 11/21/2011 Inactive Phenergan 25 mg rect al suppository RxNorm: 782951 1 Suppository RTL Q4H as needed for nausea and vomiting No Start Date 07/19/2015 Inactive baclofen 10 mg tablet RxNorm: 291986 1 Tablet(s) PO QHS No Start Date 11/03/2014 Inactive loratadine 10 mg tablet RxNorm: 836398 1 Tablet(s) PO QD No Start Date 10/03/2018 Inactive famotidine 40 mg tablet RxNorm: 768450 1 Tablet(s) PO BID No Start Date 06/22/2016 Inactive Zithromax Z-Leonel 250 mg Tab RxNorm: 004981 Tablet(s) PO as directed No Start Date 11/15/2010 Inactive Singulair 10 mg tablet RxNorm: 893694 1 Tablet(s) PO QHS No Start Date 07/10/2017 Inactive Premarin 0.625 mg/g Vaginal Cream RxNorm: 224982 1 Gram(s) VAG QHS 2-3 times weekly No Start Date 01/05/2011 Inactive Alprazolam 0.25 mg Tab RxNorm: 587987 1 Tablet(s) PO TID No Start Date 03/09/2010 Inactive Claritin 10 mg tablet RxNorm: 303530 1 Tablet(s) PO QD No Start Date [...] Rendon would like to 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 shortness of breath 01/05/2011 urinary [...] Item Item Code Result Date GFR CALC 1154735 GFR AA >60 ML/MIN 01/14/2011 GFR CALC 3488637 GFR NON -AA >60 ML/MIN 01/14/2011 COMPREHENSIVE METABOLIC 07127 AST 15 U/L 01/14/2011 COMPREHENSIVE METABOLIC 04382 ALT 17 IU/L 01/14/2011 COMPREHENSIVE METABOLIC 50283 BUN 12 MG/DL 01/14/2011 COMPREHENSIVE METABOLIC 84512 ALBUMIN 4.0 GM/DL 01/14/2011 COMPREHENSIVE METABOLIC 81768 CHLORIDE 101 MMOL/L 01/14/2011 COMPREHENSIVE METABOLIC 19574 BILI TOT 0.3 MG/DL 01/14/2011 COMPREHENSIVE METABOLIC 67023 ALK PHOS 53 U/L 01/14/2011 COMPREHENSIVE METABOLIC 33867 SODIUM 136 MMOL/L 01/14/2011 COMPREHENSIVE METABOLIC 33004 CREATININE 0.60 MG/DL 01/14/2011 COMPREHENSIVE METABOLIC 25441 CALCIUM 9.3 MG/DL 01/14/2011 COMPREHENSIVE METABOLIC 69124 POTASSIUM 4.1 MMOL/L 01/14/2011 COMPREHENSIVE METABOLIC 69597 PROT TOT 7.0 GM/DL 01/14/2011 COMPREHENSIVE METABOLIC 51708 Glucose 92 MG/DL 01/14/2011 COMPREHENSIVE METABOLIC 53027 BICARB 27 MMOL/L 01/14/2011 COMPREHENSIVE METABOLIC 50524 ANION GAP 8 MEQ/L 01/14/2011 ERYTHROCYTE SEDIMENTATION RATE 26898 ESR 39 MM/HR 01/05/2011 COMPREHENSIVE METABOLIC 54350 AST 16 U/L 01/05/2011 COMPREHENSIVE METABOLIC 76598 ALT 19 U/L 01/05/2011 COMPREHENSIVE METABOLIC 20027 BUN 15 MG/DL 01/05/2011 COMPREHENSIVE METABOLIC 24467 ALBUMIN 3.8 GM/DL 01/05/2011 COMPREHENSIVE METABOLIC 49383 CHLORIDE 101 MMOL/L 01/05/2011 COMPREHENSIVE METABOLIC 49568 BILI TOT 0.3 MG/DL 01/05/2011 COMPREHENSIVE METABOLIC 39503 ALK PHOS 55 U/L 01/05/2011 COMPREHENSIVE METABOLIC 12567 SODIUM 139 MMOL/L 01/05/2011 COMPREHENSIVE METABOLIC 58493 CREATININE 0.59 MG/DL 01/05/2011 COMPREHENSIVE METABOLIC 45203 CALCIUM 8.9 MG/DL 01/05/2011 COMPREHENSIVE METABOLIC 22088 POTASSIUM 3.8 MMOL/L 01/05/2011 COMPREHENSIVE METABOLIC 29851 PROT TOT 6.7 GM/DL 01/05/2011 COMPREHENSIVE METABOLIC 86969 Glucose 121 MG/DL 01/05/2011 COMPREHENSIVE METABOLIC 95879 BICARB 28 MMOL/L 01/05/2011 COMPREHENSIVE METABOLIC 59244 ANION GAP 10 MMOL/L 01/05/2011 GFR CALC 4321187 GFR AA >60 ML/MIN 01/05/2011 GFR CALC 4604612 GFR NON -AA >60 ML/MIN 01/05/2011 COMPLETE BLOOD COUNT 44646 WBC 8.7 10e9/L 01/05/2011 COMPLETE BLOOD COUNT 52491 RBC 4.78 10e12/L 1 COMPLETE BLOOD COUNT 16190 HGB 13.3 g/dL 01/05/2011 COMPLETE BLOOD COUNT 34073 HCT DET 40.6 % 01/05/2011 COMPLETE BLOOD COUNT 31147 MCV 84.9 fL 01/05/2011 COMPLETE BLOOD COUNT 21772 MCH 27.8 pg 01/05/2011 COMPLETE BLOOD COUNT 72195 MCHC 32.8 g/dL 01/05/2011 COMPLETE BLOOD COUNT 60732 PLT 273 10e9/L 01/05/2011 COMPLETE BLOOD COUNT 92806 MPV 9.8 fL 01/05/2011 COMPLETE BLOOD COUNT 03437 AMANDA % 65.9 % 01/05/2011 COMPLETE BLOOD COUNT 17141 LY % 24.5 % 01/05/2011 COMPLETE BLOOD COUNT 80217 MON % 6.9 % 01/05/2011 COMPLETE BLOOD COUNT 65224 EOS % 2.1 % 01/05/2011 COMPLETE BLOOD COUNT 64918 BASO % 0.6 % 01/05/2011 COMPLETE BLOOD COUNT 33127 RDW 14.7 % 01/05/2011 COMPLETE BLOOD COUNT 23204 ABS AMANDA 5.73 10e9/L 01/05/2011 COMPLETE BLOOD COUNT 90209 ABS LYMPH 2.13 10e9/L 01/05/2011 COMPLETE BLOOD COUNT 82369 ABS MONO 0.60 10e9/L 01/05/2011 COMPLETE BLOOD COUNT 96151 ABS EOS 0.18 10e9/L 01/05/2011 COMPLETE BLOOD COUNT 36909 ABS BASO 0.05 10e9/L 01/05/2011 COMPLETE BLOOD COUNT 68273 RDW-SD 44.7 fL 01/05/2011 NO UA [id number] NO UA CANCELED 07/08/2010 Review of Systems [...] Date URINE CULTURE/ COLON Y COUNT CPT-4: 32847 01/14/2019 URINALYSIS NONAUTO W /O SCOPE CPT-4: 13153 01/14/2019 INITIAL PREVENTIVE EXAM CPT-4: G0402 11/21/2018 URINALYSIS NONAUTO W /O SCOPE CPT-4: 21480 11/01/2018 URINE CULTURE/ COLON Y COUNT CPT-4: 92853 11/01/2018 URINE CULTURE/ COLON Y COUNT CPT-4: 04939 06/13/2018 URINALYSIS NONAUTO W /O SCOPE CPT-4: 80940 05/31/2018 URINE CULTURE/ COLON Y COUNT CPT-4: 51897 05/31/2018 IIV4 VACCINE 3 YRS+ IM AND UP CPT-4: 06748 03/22/2018 IMMUNIZATION ADMIN CPT- 4: 47846 03/22/2018 TDAP VACCINE 7 YRS/> IM CPT-4: 85301 12/28/2017 IMMUNIZATION ADMIN CPT- 4: 74983 12/28/2017 SHINGRIX HZV VACC RE COMBINANT IM CPT-4: 34818 10/04/2017 IMMUNIZATION ADMIN CPT- 4: 33320 10/04/2017 IIV4 VACCINE 3 YRS+ IM AND UP CPT-4: 86591 03/28/2017 IMMUNIZATION ADMIN CPT- 4: 87426 03/28/2017 INFLUENZA ASSAY W/OPTIC CPT-4: 57203 09/12/2016 FLU VACCINE 3 YRS & > IM UP 64 CPT-4: 46261 04/22/2016 IMMUNIZATION ADMIN CPT- 4: 96117 04/22/2016 OCCULT BLOOD FECES CPT- 4: 02495 01/04/2016 THER/PROPH/DIAG INJ SC/IM CPT-4: 08485 07/20/2015 PROMETHAZINE HCL INJ ECTION CPT-4: J2550 07/20/2015 FLU VACCINE 3 YRS & > IM UP 64 CPT-4: 60622 03/09/2015 IMMUNIZATION ADMIN CPT- 4: 65710 03/09/2015 URINALYSIS NONAUTO W /O SCOPE CPT-4: 09901 07/10/2014 URINE CULTURE/ COLON Y COUNT CPT-4: 62122 07/10/2014 URINE CULTURE/ COLON Y COUNT CPT-4: 35210 07/14/2011 URINALYSIS NONAUTO W /O SCOPE CPT-4: 71569 07/14/2011 FLU VACCINE 3 YRS & > IM UP 64 CPT-4: 66678 06/28/2011 IMMUNIZATION ADMIN CPT- 4: 09815 06/28/2011 URINALYSIS NONAUTO W /O SCOPE CPT-4: 03263 03/23/2011 URINE CULTURE/ COLON Y COUNT CPT-4: 02148 03/23/2011 ROUTINE VENIPUNCTURE CPT-4: 33049 01/14/2011 COMPREHEN METABOLIC PANEL CPT-4: 29907 01/14/2011 ROUTINE VENIPUNCTURE CPT-4: 51182 01/05/2011 COMPLETE CBC W/AUTO DIFF WBC CPT-4: 73367 01/05/2011 RBC SED RATE AUTOMATED CPT-4: 70405 01/05/2011 COMPREHEN METABOLIC PANEL CPT-4: 76580 01/05/2011 URINALYSIS NONAUTO W /O SCOPE CPT-4: 57220 11/16/2010 URINE CULTURE/ COLON Y COUNT CPT-4: 90629 11/16/2010 DRAIN/INJECT JOINT/B URSA CPT-4: 23193 11/04/2010 TRIAMCINOLONE ACET I [place] NOS CPT-4: J3301 11/04/2010 METHYLPREDNISOLONE 8 0 MG INJ CPT-4: J1040 11/04/2010 URINALYSIS NONAUTO W /O SCOPE CPT-4: 32515 07/05/2010 URINE CULTURE/ COLON Y COUNT CPT-4: 48831 07/05/2010 URINALYSIS NONAUTO W /O SCOPE CPT-4: 09583 06/28/2010 URINE CULTURE/ COLON Y COUNT CPT-4: 90328 06/28/2010 URINALYSIS NONAUTO W /O SCOPE CPT-4: 35883 06/14/2010 URINE CULTURE/ COLON Y COUNT CPT-4: 21442 06/14/2010 URINE CULTURE/ COLON Y COUNT CPT-4: 62945 04/19/2010 OCCULT BLOOD FECES CPT- 4: 99508 04/12/2010 URINALYSIS NONAUTO W /O SCOPE CPT-4: 59293 04/08/2010 URINE CULTURE/ COLON Y COUNT CPT-4: 98775 04/08/2010 ASSAY, GLUCOSE, BLOO D QUANT CPT-4: 58621 03/09/2010 URINALYSIS NONAUTO W /O SCOPE CPT-4: 79122 03/09/2010 FLU VACCINE 3 YRS & > IM UP 64 CPT-4: 27899 03/09/2010 IMMUNIZATION ADMIN CPT- 4: 05263 03/09/2010 URINALYSIS NONAUTO W /O SCOPE CPT-4: 48445 09/29/2009 URINALYSIS NONAUTO W /O SCOPE CPT-4: 85160 08/12/2009 Vital Signs Date Vital 01/09/2019 Heart Rate 1: 100 bpm Respiratory Rate: 20 bpm SpO2: 98% Temperature: 36.8 (C ) / 98.2 (F) Weight: 162 lbs 11/21/2018 Blood Pressure 1: 130/70 Code: 8480-6 BMI: 29.6 Code: 57044-0 Heart Rate 1: 76 bpm Height: 5'2" [...] 1: 126/62 Code: 8480-6 BMI: 29.6 Code: 17386-0 Heart Rate 1: 88 bpm Height: 5'3" Respiratory Rate: 20 bpm Temperature: 36.8 (C ) / 98.3 (F) Weight: 167 lbs 05/31/2018 Blood Pressure 1: 140/80 Code: 8480-6 Heart Rate 1: 74 bpm Respiratory Rate: 16 bpm SpO2: 97% Temperature: 36.3 (C ) / 97.3 (F) Weight: 165 lbs 02/06/2018 Blood Pressure 1: 124/78 Code: 8480-6 BMI: 29.8 Code: 19928-3 Heart Rate 1: 84 bpm Height: 5'3" Respiratory Rate: 20 bpm SpO2: 97% Temperature: 36.6 (C ) / 97.8 (F) Weight: 168 lbs 12/18/2017 Blood Pressure 1: 116/78 Code: 8480-6 BMI: 29.6 Code: 50563-9 Heart Rate 1: 88 bpm Height: 5'3" Respiratory Rate: 20 bpm Temperature: 36.6 (C ) / 97.9 (F) Weight: 167 lbs 12/11/2017 Blood Pressure 1: 122/76 Code: 8480-6 Heart Rate 1: 78 bpm 09/11/2017 Blood Pressure 1: 126/82 Code: 8480-6 BMI: 29.1 Code: 17192-5 Heart Rate 1: 68 bpm Height: 5'3" Respiratory Rate: 20 bpm SpO2: 96% Temperature: 36.6 (C ) / 97.9 (F) Weight: 164 lbs 03/28/2017 Blood Pressure 1: 114/64 Code: 8480-6 BMI: 27.8 Code: 93936-6 Heart Rate 1: 76 bpm Height: 5'3" Respiratory Rate: 20 bpm SpO2: 98% Temperature: 36.4 (C ) / 97.6 (F) Weight: 157 lbs 09/12/2016 Blood Pressure 1: 126/70 Code: 8480-6 BMI: 29.9 Code: 17291-7 Heart Rate 1: 92 bpm Height: 5'3" Respiratory Rate: 20 bpm SpO2: 97% Temperature: 37.0 (C ) / 98.6 (F) Weight: 168 lbs 9 oz 07/28/2016 Blood Pressure 1: 128/74 Code: 8480-6 Heart Rate 1: 92 bpm Respiratory Rate: 24 bpm SpO2: 96% Temperature: 36.4 (C ) / 97.6 (F) Weight: 168 lbs 04/26/2016 Blood Pressure 1: 116/74 Code: 8480-6 BMI: 29.9 Code: 67997-0 Heart Rate 1: 92 bpm Height: 5'3" Respiratory Rate: 20 bpm Temperature: 36.9 (C ) / 98.4 (F) Weight: 169 lbs 12/09/2015 Blood Pressure 1: 116/72 Code: 8480-6 BMI: 31.7 Code: 64247-3 Heart Rate 1: 80 bpm Height: 5'3" Respiratory Rate: 20 bpm Temperature: 36.6 (C ) / 97.9 (F) Weight: 179 lbs 09/10/2015 Blood Pressure 1: 122/78 Code: 8480-6 BMI: 32.2 Code: 17889-0 Heart Rate 1: 88 bpm Height: 5'3" Respiratory Rate: 20 bpm Temperature: 37.3 (C ) / 99.1 (F) Weight: 182 lbs 04/23/2015 Blood Pressure 1: 126/70 Code: 8480-6 BMI: 31.2 Code: 75884-0 Heart Rate 1: 92 bpm Height: 5'3" Respiratory Rate: 20 bpm Temperature: 36.8 (C ) / 98.2 (F) Weight: 176 lbs 03/24/2015 Blood Pressure 1: 126/78 Code: 8480-6 BMI: 31.2 Code: 16111-6 Heart Rate 1: 80 bpm Height: 5'3" Respiratory Rate: 22 bpm Temperature: 36.1 (C ) / 96.9 (F) Weight: 176 lbs 03/05/2015 Blood Pressure 1: 132/80 Code: 8480-6 BMI: 31.5 Code: 70433-5 Heart Rate 1: 92 bpm Height: 5'2" Respiratory Rate: 20 bpm Temperature: 36.4 (C ) / 97.6 (F) Weight: 175 lbs 02/19/2015 Blood Pressure 1: 134/80 Code: 8480-6 BMI: 31.5 Code: 64617-7 Heart Rate 1: 88 bpm Height: 5'2" Respiratory Rate: 20 bpm Temperature: 36.7 (C ) / 98.0 (F) Weight: 175 lbs 12/25/2014 Blood Pressure 1: 122/80 Code: 8480-6 BMI: 31.0 Code: 20115-1 Heart Rate 1: 88 bpm Height: 5'2" Respiratory Rate: 20 bpm Temperature: 36.6 (C ) / 97.8 (F) Weight: 172 lbs 11/26/2014 Blood Pressure 1: 116/68 Code: 8480-6 BMI: 30.2 Code: 89455-7 Heart Rate 1: 76 bpm Height: 5'2" Respiratory Rate: 20 bpm Temperature: 36.5 (C ) / 97.7 (F) Weight: 168 lbs 11/04/2014 Blood Pressure 1: 116/64 Code: 8480-6 BMI: 30.8 Code: 39352-5 Heart Rate 1: 92 bpm Height: 5'2" Respiratory Rate: 20 bpm Temperature: 36.7 (C ) / 98.1 (F) Weight: 171 lbs 09/01/2014 Blood Pressure 1: 130/82 Code: 8480-6 BMI: 30.6 Code: 31103-4 Heart Rate 1: 92 bpm Height: 5'2" Respiratory Rate: 20 bpm Temperature: 36.9 (C ) / 98.4 (F) Weight: 170 lbs 06/02/2014 Blood Pressure 1: 126/80 Code: 8480-6 BMI: 30.2 Code: 95420-4 Heart Rate 1: 88 bpm Height: 5'2" Respiratory Rate: 20 bpm Temperature: 36.7 (C ) / 98.1 (F) Weight: 168 lbs 05/26/2014 Blood Pressure 1: 132/78 Code: 8480-6 Heart Rate 1: 74 bpm 04/08/2014 Blood Pressure 1: 156/94 Code: 8480-6 BMI: 30.2 Code: 93587-7 Heart Rate 1: 96 bpm Height: 5'2" Respiratory Rate: 20 bpm Temperature: 37.1 (C ) / 98.7 (F) Weight: 168 lbs 03/05/2014 Blood Pressure 1: 144/86 Code: 8480-6 BMI: 29.9 Code: 60210-9 Heart Rate 1: 100 bpm Height: 5'2" Respiratory Rate: 20 bpm Temperature: 36.7 (C ) / 98.1 (F) Weight: 166 lbs 07/29/2013 Blood Pressure 1: 124/80 Code: 8480-6 Heart Rate 1: 92 bpm Respiratory Rate: 20 bpm Temperature: 36.2 (C) / 97.2 (F) Weight: 167 lbs 03/20/2013 Blood Pressure 1: 116/84 Code: 8480-6 BMI: 30.8 Code: 44025-7 Heart Rate 1: 96 bpm Height: 5'3" Respiratory Rate: 20 bpm Temperature: 36.6 (C ) / 97.8 (F) Weight: 174 lbs 02/12/2013 Blood Pressure 1: 122/80 Code: 8480-6 BMI: 30.5 Code: 13447-1 Heart Rate 1: 112 bpm Height: 5'3" Respiratory Rate: 20 bpm Temperature: 36.9 (C ) / 98.4 (F) Weight: 172 lbs 11/05/2012 BMI: 31.2 Code: 88789-6 Height: 5'3" Weight: 176 lbs 10/04/2012 Heart Rate 1: 84 bpm Height: 5'3" Respiratory Rate: 20 bpm Temperature: 36.8 (C ) / 98.3 (F) Weight: 09/24/2012 Blood Pressure 1: 122/88 Code: 8480-6 BMI: 30.8 Code: 21670-8 Heart Rate 1: 80 bpm Height: 5'3" Respiratory Rate: 20 bpm Temperature: 36.8 (C ) / 98.2 (F) Weight: 174 lbs 05/10/2012 Blood Pressure 1: 124/68 Code: 8480-6 BMI: 30.1 Code: 08656-2 Heart Rate 1: 64 bpm Height: 5'3" Temperature: 36.6 (C ) / 97.8 (F) Weight: 170 lbs 03/07/2012 Blood Pressure 1: 132/78 Code: 8480-6 BMI: 29.2 Code: 70149-6 Heart Rate 1: 92 bpm Height: 5'3" Respiratory Rate: 20 bpm Temperature: 36.7 (C ) / 98.1 (F) Weight: 165 lbs 02/01/2012 Blood Pressure 1: 116/78 Code: 8480-6 BMI: 29.1 Code: 66333-3 Heart Rate 1: 84 bpm Height: 5'3" Respiratory Rate: 20 bpm Temperature: 36.8 (C ) / 98.2 (F) Weight: 164 lbs 12/20/2011 Blood Pressure 1: 128/80 Code: 8480-6 BMI: 29.1 Code: 11966-0 Heart Rate 1: 88 bpm Height: 5'3" Respiratory Rate: 20 bpm Temperature: 36.4 (C ) / 97.6 (F) Weight: 164 lbs 11/22/2011 Blood Pressure 1: 104/60 Code: 8480-6 BMI: 28.5 Code: 17439-0 Heart Rate 1: 78 bpm Height: 5'3" Temperature: 36.6 (C ) / 97.9 (F) Weight: 161 lbs 07/11/2011 Blood Pressure 1: 118/72 Code: 8480-6 BMI: 30.6 Code: 91358-9 Heart Rate 1: 92 bpm Height: 5'3" Respiratory Rate: 20 bpm Temperature: 36.8 (C ) / 98.2 (F) Weight: 173 lbs 07/06/2011 Blood Pressure 1: 126/80 Code: 8480-6 BMI: 31.0 Code: 00653-5 Heart Rate 1: 88 bpm Height: 5'3" Respiratory Rate: 20 bpm Temperature: 36.7 (C ) / 98.1 (F) Weight: 175 lbs 05/26/2011 Blood Pressure 1: 100/78 Code: 8480-6 BMI: 31.0 Code: 42597-8 Heart Rate 1: 74 bpm Height: 5'3" Temperature: 36.4 (C ) / 97.6 (F) Weight: 175 lbs 05/16/2011 Blood Pressure 1: 116/80 Code: 8480-6 BMI: 31.0 Code: 52518-6 Heart Rate 1: 88 bpm Height: 5'3" Respiratory Rate: 20 bpm Temperature: 36.8 (C ) / 98.2 (F) Weight: 175 lbs 05/05/2011 Blood Pressure 1: 126/80 Code: 8480-6 BMI: 30.6 Code: 70048-7 Heart Rate 1: 96 bpm Height: 5'3" Respiratory Rate: 20 bpm Temperature: 36.4 (C ) / 97.6 (F) Weight: 173 lbs 04/05/2011 Blood Pressure 1: 144/90 Code: 8480-6 BMI: 30.1 Code: 99202-0 Heart Rate 1: 92 bpm Height: 5'3" Respiratory Rate: 20 bpm Temperature: 36.6 (C ) / 97.8 (F) Weight: 170 lbs 03/02/2011 Blood Pressure 1: 136/94 Code: 8480-6 Heart Rate 1: 92 bpm Temperature: 36.6 (C) / 97.8 (F) Weight: 171 lbs 01/05/2011 Blood Pressure 1: 132/86 Code: 8480-6 BMI: 30.6 Code: 43098-8 Heart Rate 1: 98 bpm Height: 5'3" [...] 1: 122/68 Code: 8480-6 BMI: 29.8 Code: 92787-0 Height: 5'3" Temperature: 36.3 (C ) / [...] 1: 142/90 Code: 8480-6 BMI: 30.5 Code: 73728-8 Heart Rate 1: 96 bpm Height: 5'3" [...] seat belt use 11/21/2018 None Lifestyle satisfactory work/senior living experience 11/21/2018 None Lifestyle normal sleep patterns [...] Guidance hormon e replacement therapy 11/21/2018 None Breast/Regeneration Operator Complaints urinary incontinence 11/21/2018 stress Quality chronic [...] Quality discomfort 08/06/2018 None 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 side effect [...] Patients thinks may be re lated to [facility] back pain Location low b ack [...] Encounters Encounter Performer Loca tion Codes Date ([id number]) NURSE/OUTPAT IENT VISIT EST Diagnosis: Low back pain[ICD10: M54.5] Diagnosis: Hematuria, unspecified[ICD10: R31.9] Yaima TAYLOR DO [facility] CPT-4: 65119 01/14/2019 ([id number]) OFFICE/OUTPA TIENT VISIT EST Diagnosis: Left lower quadrant pain[ICD10: R10.32] Yaima TALYOR DO [facility] CPT-4: 92908 01/09/2019 ([id number]) NURSE/OUTPAT IENT VISIT EST Diagnosis: Hematuria, unspecified[ICD10: R31.9] Yaima TAYLOR DO [facility] CPT-4: 48980 11/01/2018 ([id number]) OFFICE/OUTPA TIENT VISIT EST Diagnosis: Hypothyroidism, unspecified[ICD10: E03.9] Diagnosis: Other fatigue[ICD10: R53.83] Diagnosis: Other cervical disc degeneration, unspecified cervical region[ICD10: M50.30] Yaima JOHNSON DO [facility] CPT-4: 65805 10/04/2018 ([id number]) OFFICE/OUTPA TIENT VISIT EST Diagnosis: Hypothyroidism, unspecified[ICD10: E03.9] Diagnosis: Impaired fasting glucose[ICD10: R73.01] Diagnosis: Cervicalgia[ICD10: M54.2] Yaima JOHNSON [facility] CPT-4: 49841 08/06/2018 ([id number]) OFFICE/OUTPA TIENT VISIT EST Diagnosis: Radiculopathy, lumbosacral region[ICD10: M54.17] Diagnosis: Abrasion, left lower leg, sequela[ICD10: S80.812S] Yaima TAYLOR [facility] CPT-4: 55187 06/21/2018 ([id number]) NURSE/OUTPAT IENT VISIT EST Diagnosis: Urinary tract infection, site not specified[ICD10: N39.0] Yaima JOHNSON DO [facility] CPT-4: 78495 06/13/2018 ([id number]) OFFICE/OUTPA TIENT VISIT EST Diagnosis: Other dorsalgia[ICD10: M54.89] Jane JOHNSON DO [facility] CPT-4: 22122 05/31/2018 ([id number]) NURSE/OUTPAT IENT VISIT EST Diagnosis: FLU VACCINE[ICD10: Z23] Yaima JOHNSON [facility] CPT-4: 36989 03/22/2018 ([id number]) OFFICE/OUTPA TIENT VISIT EST Diagnosis: Hypothyroidism, unspecified[ICD10: E03.9] Diagnosis: Essential (primary) hypertension[ICD10: I10] Diagnosis: Other seasonal allergic rhinitis[ICD10: J30.2] Yaima SALAS [facility] [employer] [facility] CPT-4: 79273 02/06/2018 ([id number]) NURSE/OUTPAT IENT VISIT EST Diagnosis: Laceration of blood vessel of right index finger, initial encounter[ICD10: S65.510A] Diagnosis: VACCINE FOR TDAP[ICD10: Z23] Yaima JOHNSON [facility] CPT-4: 88722 12/28/2017 ([id number]) OFFICE/OUTPA TIENT VISIT EST Diagnosis: Tinnitus, bilateral[ICD10: H93.13] Yaima SALAS [facility] [employer] [facility] CPT-4: 22448 12/18/2017 ([id number]) NURSE/OUTPAT IENT VISIT EST Diagnosis: VACCIN FOR DISEASE NEC (HPV or Zostavax)[ICD10: Z23] Yaima SALAS [facility] [employer] [facility] CPT-4: 40774 10/04/2017 OFFICE/OUTPATIENT SIT EST Diagnosis: Hypothyroidism, unspecified[ICD10: E03.9] Diagnosis: Essential (primary) hypertension[ICD10: I10] Diagnosis: Gastro-esophageal reflux disease without esophagitis[ICD10: K21.9] Diagnosis: Pain in right knee[ICD10: M25.561] Diagnosis: Hyperglycemia, unspecified[ICD10: R73.9] Yaima SALAS [facility] [employer] [facility] CPT-4: 19775 09/11/2017 ([id number]) OFFICE/OUTPA TIENT VISIT EST Diagnosis: Cervicalgia[ICD10: M54.2] Diagnosis: Hypothyroidism, unspecified[ICD10: E03.9] Diagnosis: Essential (primary) hypertension[ICD10: I10] Diagnosis: Irritant contact dermatitis, unspecified cause[ICD10: L24.9] Diagnosis: FLU VACCINE[ICD10: Z23] Yaimaperlita JOHNSON [facility] CPT-4: 59641 03/28/2017 ([id number]) OFFICE/OUTPA TIENT VISIT EST Diagnosis: Influenza due to identified novel influenza A virus with other manifestations[ICD10: J09.X9] Yaima JOHNSON [facility] CPT-4: 36934 09/12/2016 ([id number]) OFFICE/OUTPA TIENT VISIT EST Diagnosis: Dermatitis, unspecified[ICD10: L30.9] Diagnosis: Pain in right knee[ICD10: M25.561] Yaima TAYLOR [facility] CPT-4: 15323 07/28/2016 ([id number]) OFFICE/OUTPA TIENT VISIT EST Diagnosis: Incisional hernia without obstruction or gangrene[ICD10: K43.2] Diagnosis: Gastro-esophageal reflux disease without esophagitis[ICD10: K21.9] Diagnosis: Radiculopathy, lumbosacral region[ICD10: M54.17] Yaima TAYLOR [facility] CPT-4: 48945 04/26/2016 ([id number]) OFFICE/OUTPA TIENT VISIT EST Diagnosis: FLU VACCINE[ICD10: Z23] Yaima JOHNSON [facility] CPT-4: 53849 04/22/2016 ([id number]) OFFICE/OUTPA TIENT VISIT EST Diagnosis: Other fecal abnormalities[ICD10: R19.5] Yaima TAYLOR [facility] CPT-4: 16720 01/04/2016 ([id number]) OFFICE/OUTPA TIENT VISIT EST 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] Diagnosis: Other specified diseases of liver[ICD10: K76.89] Diagnosis: Irritant contact dermatitis due to detergents[ICD10: L24.0] Yaima JOHNSON [facility] CPT-4: 21282 12/09/2015 ([id number]) OFFICE/OUTPA TIENT VISIT EST Diagnosis: Pain in thoracic spine[ICD10: M54.6] Diagnosis: Radiculopathy, lumbosacral region[ICD10: M54.17] Diagnosis: Precordial pain[ICD10: R07.2] Yaima JOHNSON DO [facility] CPT-4: 98903 09/10/2015 ([id number]) OFFICE/OUTPA TIENT VISIT EST Diagnosis: Nausea[ICD10: R11.0] Yaima JOHNSON DO [facility] CPT-4: 62299 07/20/2015 ([id number]) OFFICE/OUTPA TIENT VISIT EST Diagnosis: Pain in left elbow[ICD10: M25.522] Diagnosis: Contusion of left lower leg, sequela[ICD10: S80.12XS] Diagnosis: Pleurodynia[ICD10: R07.81] Yaima JOHNSON DO [facility] CPT-4: 81996 04/23/2015 ([id number]) OFFICE/OUTPA TIENT VISIT EST Diagnosis: Unspecified abdominal pain[ICD10: R10.9] Diagnosis: Ventral hernia without obstruction or gangrene[ICD10: K43.9] Diagnosis: Constipation, unspecified[ICD10: K59.00] Yaima TAYLOR [facility] CPT-4: 11986 03/24/2015 ([id number]) OFFICE/OUTPA TIENT VISIT EST Diagnosis: FLU VACCINE[ICD10: Z23] Yaima JOHNSON DO [facility] CPT-4: 20018 03/09/2015 ([id number]) OFFICE/OUTPA TIENT VISIT EST 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] Diagnosis: Generalized abdominal pain[ICD10: R10.84] Yaima T[facility] CPT-4: 19392 03/05/2015 OFFICE/OUTPATIENT SIT EST Diagnosis: ABDOMINAL PAIN[ICD9: 789.00] Diagnosis: HYPOTHYROIDISM[ICD9: 244.9] Diagnosis: HYPERTENSION[ICD9: 401.9] Diagnosis: DIVERTICULITIS, COLONIC[ICD9: 562.11] Diagnosis: DISTURBANCE OF SKIN SENSATION (Paresthesia)[ICD9: 782.0] Yaima GAYTANER DO [facility] CPT-4: 06078 02/19/2015 ([id number]) OFFICE/OUTPA TIENT VISIT EST Diagnosis: HYPOTHYROIDISM[ICD9: 244.9] Diagnosis: Diaphoresis[ICD9: 780.8] Yaima JOHNSON DO [facility] CPT-4: 77300 12/25/2014 ([id number]) OFFICE/OUTPA TIENT VISIT EST Diagnosis: ABDOMINAL PAIN[ICD9: 789.00] Diagnosis: PAIN, LOWER BACK[ICD9: 724.2] Diagnosis: Contusion of leg[ICD9: 924.5] Yaima JOHNSON DO [facility] CPT-4: 89911 11/26/2014 ([id number]) OFFICE/OUTPA TIENT VISIT EST Diagnosis: IBS[ICD9: 564.1] Diagnosis: GERD[ICD9: 530.81] Yaima JOHNSON DO [facility] CPT-4: 65647 11/04/2014 ([id number]) OFFICE/OUTPA TIENT VISIT EST Diagnosis: Headache[ICD9: 784.0] Diagnosis: Leg pain[ICD9: 729.5] Yaiam JOHNSON DO [facility] CPT-4: 72429 09/01/2014 ([id number]) OFFICE/OUTPA TIENT VISIT EST Diagnosis: DYSURIA[ICD9: 788.1] Yaima JOHNSON DO [facility] CPT-4: 71577 07/10/2014 OFFICE/OUTPATIENT SIT EST Diagnosis: VAGINITIS[ICD9: 623.5] Diagnosis: SINUSITIS, ACUTE[ICD9: 461.9] Yaima JOHNSON DO [facility] CPT-4: 77806 06/02/2014 ([id number]) OFFICE/OUTPA TIENT VISIT EST Diagnosis: HYPERTENSION[ICD9: 401.9] Diagnosis: ALLERGIC RHINITIS[ICD9: 477.9] Diagnosis: PAIN, LOWER BACK[ICD9: 724.2] Yaima JOHNSON DO [facility] CPT-4: 75985 04/08/2014 ([id number]) OFFICE/OUTPA TIENT VISIT EST Diagnosis: COUGH[ICD10: R05] Diagnosis: Thoracic back pain[ICD9: 724.1] Yaima JOHNSON DO [facility] CPT-4: 63636 03/05/2014 ([id number]) OFFICE/OUTPA TIENT VISIT EST Diagnosis: SINUSITIS, ACUTE[ICD9: 461.9] Diagnosis: BRONCHITIS, ACUTE[ICD9: 466.0] Yaima JOHNSON DO [facility] CPT-4: 37809 07/29/2013 ([id number]) OFFICE/OUTPA TIENT VISIT EST Diagnosis: ABDOMINAL PAIN[ICD9: 789.00] Diagnosis: Constipation[ICD9: 564.00] Diagnosis: DIVERTICULITIS, COLONIC[ICD9: 562.11] Yaima [facility] CPT-4: 18938 03/20/2013 ([id number]) OFFICE/OUTPA TIENT VISIT EST Diagnosis: Plantar fasciitis[ICD9: 728.71] Diagnosis: ALLERGIC RHINITIS[ICD9: 477.9] Yaima JOHNSON DO [facility] CPT-4: 35453 02/12/2013 OFFICE/OUTPATIENT SIT EST Diagnosis: Skin lesion[ICD9: 709.9] Diagnosis: Lumbar back pain[ICD9: 724.2] Diagnosis: Muscle spasm[ICD9: 728.85] Diagnosis: Hypothyroid[ICD9: 244.9] Yaima JOHNSON DO [facility] CPT-4: 31250 11/05/2012 ([id number]) OFFICE/OUTPA TIENT VISIT EST Diagnosis: Cervicalgia[ICD9: 723.1] Diagnosis: Thoracic back pain[ICD9: 724.1] Diagnosis: SPASM OF MUSCLE[ICD9: 728.85] Yaima JOHNSON DO [facility] CPT-4: 93772 10/04/2012 ([id number]) OFFICE/OUTPA TIENT VISIT EST Diagnosis: MALAISE AND FATIGUE[ICD9: 780.79] Diagnosis: HYPOTHYROIDISM[ICD9: 244.9] Diagnosis: HYPERTENSION[ICD9: 401.9] Yaima J[facility]NS[facility] CPT-4: 87495 09/24/2012 ([id number]) OFFICE/OUTPA TIENT VISIT EST Diagnosis: Lateral epicondylitis[ICD9: 726.32] Diagnosis: Wrist pain[ICD9: 719.43] Diagnosis: Numbness and tingling in right hand[ICD9: 782.0] Yaima TAYLOR [facility] CPT-4: 33645 05/10/2012 OFFICE/OUTPATIENT SIT EST Diagnosis: MALAISE AND FATIGUE[ICD9: 780.79] Diagnosis: HYPOTHYROIDISM[ICD9: 244.9] Diagnosis: Enthesopathy of the wrist and carpus[ICD9: 726.4] Diagnosis: Foot pain[ICD9: 729.5] Diagnosis: DYSPHAGIA NEC[ICD9: 787.29] Yaima RaviRobin [facility] CPT-4: 28347 03/07/2012 ([id number]) OFFICE/OUTPA TIENT VISIT EST Diagnosis: HYPOTHYROIDISM[ICD9: 244.9] Yaima RaviRobin [facility] CPT-4: 77316 02/01/2012 ([id number]) OFFICE/OUTPA TIENT VISIT EST Diagnosis: MALAISE AND FATIGUE[ICD9: 780.79] Diagnosis: HYPOTHYROIDISM[ICD9: 244.9] Yaima JOHNSON [facility] CPT-4: 46082 12/20/2011 OFFICE/OUTPATIENT SIT EST Diagnosis: INSECT BITE HIP/LEG[ICD9: 916.4] Lizzette ZUNIGAQUELINE BreonnaRobin [facility] CPT-4: 31112 11/22/2011 OFFICE/OUTPATIENT SIT EST Diagnosis: HEMATURIA NOS[ICD9: 599.70] Yaima Elizabeth MCCORMACKLINE BreonnaRobin [facility] CPT-4: 17396 07/14/2011 OFFICE/OUTPATIENT SIT EST Diagnosis: URINARY TRACT INFECTION[ICD9: 599.0] Diagnosis: DIVERTICULITIS, COLONIC[ICD9: 562.11] Yaima Elizabeth MCCORMACKLINE BreonnaRobin JOSUE [facility]AYLOR [facility] CPT-4: 60572 07/11/2011 OFFICE/OUTPATIENT SIT EST Diagnosis: TMJ arthritis[ICD9: 524.69] Diagnosis: MIGRAINE NOS/NOT INTRCBL[ICD9: 346.90] Diagnosis: Rectal fissure[ICD9: 565.0] Yaima Salasjuliannicole YAIMA JOHNSON [facility] CPT-4: 22746 07/06/2011 OFFICE/OUTPATIENT SIT EST Diagnosis: SPASM OF MUSCLE[ICD9: 728.85] Diagnosis: PAIN, LOWER BACK[ICD9: 724.2] Yaima Josuejuliannicole YAIMA JOHNSON [facility] CPT-4: 54074 05/26/2011 OFFICE/OUTPATIENT SIT EST Diagnosis: PAIN, LOWER BACK[ICD9: 724.2] Diagnosis: SPASM OF MUSCLE[ICD9: 728.85] Yaima Gaytannicole YAIMA JOHNSON [facility] CPT-4: 33373 05/16/2011 OFFICE/OUTPATIENT SIT EST Diagnosis: PAIN, LOWER BACK[ICD9: 724.2] Diagnosis: ENTHESOPATHY OF HIP[ICD9: 726.5] Diagnosis: Onychomycosis[ICD9: 110.1] Yaima Orejuliannicole YAIMA JOHNSON [facility] CPT-4: 11190 05/05/2011 OFFICE/OUTPATIENT SIT EST Diagnosis: Diverticulitis[ICD9: 562.11] Yaima Josuesara JOHNSON DO [facility] CPT-4: 36337 04/05/2011 OFFICE/OUTPATIENT SIT EST Diagnosis: CHEST PAIN NOS[ICD9: 786.50] Diagnosis: PALPITATIONS[ICD9: 785.1] Diagnosis: Pulmonary arterial hypertension[ICD9: 416.8] Yaima SHIRLEYR [facility] CPT-4: 70369 03/02/2011 OFFICE/OUTPATIENT SIT EST Yaima Gaytannicole YAIMA SHIRLEYR [facility] CPT-4: 22805 01/05/2011 ([id number]) OFFICE/OUTPA TIENT VISIT EST Yaima Gaytannicole YAIMA SHIRLEYR [facility] CPT-4: 64669 11/16/2010 ([id number]) OFFICE/OUTPA TIENT VISIT EST [facility]a [facility] CPT-4: 84910 11/04/2010 ([id number]) OFFICE/OUTPA TIENT VISIT EST Yaima [facility]UELS [facility] CPT-4: 44705 08/05/2010 ([id number]) OFFICE/OUTPA TIENT VISIT EST [facility]a [facility] CPT-4: 27543 07/23/2010 ([id number]) OFFICE/OUTPA TIENT VISIT, EST Yaima SAMUELS SR[facility]in [facility] CPT-4: 62509 06/07/2010 ([id number]) OFFICE/OUTPA TIENT VISIT, EST Yaima SAMUELS SRobin [facility] CPT-4: 56367 05/12/2010 ([id number]) OFFICE/OUTPA TIENT VISIT, EST Yaima [facility] CPT-4: 09843 04/27/2010 ([id number]) OFFICE/OUTPA TIENT VISIT, EST Yaima SAMUELS [facility] CPT-4: 88394 04/19/2010 ([id number]) OFFICE/OUTPA TIENT VISIT, EST Yaima SAMUELS [facility] CPT-4: 97393 03/09/2010 ([id number]) OFFICE/OUTPA TIENT VISIT, EST Yaima [facility] CPT-4: 55670 01/04/2010 ([id number]) OFFICE/OUTPA TIENT VISIT, EST Yaima SAMUELS [facility] CPT-4: 60557 12/14/2009 ([id number]) OFFICE/OUTPA TIENT VISIT, EST Lizzette Blake [facility] CPT-4: 65191 11/23/2009 Plan of Care Planned Activity Notes C odes Status Date Visit Diagnosis Plan: Left lower quadrant pain Discussion: Appears to have a hernia so did discuss surgical evaluation ICD-9 : 789.04 ICD-10 : R10.32 01/09/2019 Appointment: Yaima Johnson WPtel: [address] [place], [place] [id number] ACUTE ILLNESS 01/09/2019 Visit Diagnosis Plan: Encounter for gene [facility] adult medical examination without abnormal findings [...] : Z00.00 11/21/2018 Appointment: Yaima Johnson WPtel: [address] [place], [place] [phone] WELCOME TO MEDICARE 11/21/2018 Care Plan: Referral Order SNOMED-CT : [id number] Pending 11/21/2018 Appointment: Yaima Johnson WPtel: [address] [place], [place] [phone] [facility] 11/01/2018 Visit Diagnosis Plan: Hypothyroidism, unspecified Discussion: Restart synthroid at 50mcg daily and recheck lab in 3mos ICD-9 : 244.9 ICD-10 : E03.9 10/04/2018 Visit Diagnosis Plan: Other cervical dis c degeneration, unspecified cervical region Discussion: MRI results discussed fwup w [facility] Dr. Johnson ICD-9 : 722.4 ICD-10 : M50.30 10/04/2018 Appointment: Yaima Johnson WPtel: [address] [place], [place] [id number] FOLLOW UP 10/04/2018 Care Plan: Referral Order SNOMED-CT : [id number] Pending 10/04/2018 Visit Diagnosis Plan: Hypothyroidism, unspecified [...] : M54.2 08/06/2018 Appointment: Yaima Johnson WPtel: [address] [place] [address] Schedule medicare annual! FOLLOW UP 08/06/2018 Patient Education: levothyroxine- [employer] Coupon [phone] [phone] [email or web address] Completed 08/06/2018 Visit Diagnosis Plan: Radiculopathy, lumbosacral regio n Discussion: Daily stretches and see if improves--low dose gabapentin trial q HS if does not improve Lab and fwup in 3mos ICD-9 : 724.4 ICD-10 : M54.17 06/21/2018 Visit Diagnosis Plan: Abrasion, left lower leg, sequel a Discussion: Vitamin E topically for scarring/dryness ICD-9 : 906.2 ICD-10 : S80.812S 06/21/2018 Appointment: Yaima Johnson WPtel: [address] [place] [address] ACUTE ILLNESS 06/21/2018 Appointment: Yaima Johnson WPtel: [address] [place] [address] UA 06/13/2018 Visit Diagnosis Plan: Other dorsalgia [...] : M54.89 05/31/2018 Appointment: Yoon, Jane R. [address] [place] [address] ACUTE ILLNESS 05/31/2018 Appointment: Yaima Johnson WPtel: [address] [place] [address] [place] INJECTION 03/22/2018 Patient Education: Patient Medication Summary Completed 03/22/2018 Patient Education: INFLUENZA VACCINE CDC Completed 03/22/2018 Appointment: Yaima Johnson WPtel: [address] [place] [address] [place] RESCHEDULED 02/14/2018 Visit Diagnosis Plan: Hypothyroidism, [...] : J30.2 02/06/2018 Appointment: Yaima Johnson WPtel: [address] [place] [address] [place] FOLLOW UP 02/06/2018 Patient Education: Patient Medication Summary Completed 02/06/2018 Appointment: Yaima Johnson WPtel: [address] [place] [address] [place] INJECTION 12/28/2017 Patient Education: Patient Medication Summary Completed 12/28/2017 Appointment: Yaima Johnson WPtel: [address] [place] [address] [place] RESCHEDULED 12/25/2017 Visit Diagnosis Plan: Tinnitus, bilateral Discussion: See ENT for hearing eval and further workup ICD-9 : 388.31 ICD-10 : H93.13 12/18/2017 Appointment: Yaima Johnson WPtel: [address] [place] [address] ACUTE ILLNESS 12/18/2017 Patient Education: Patient Medication Summary Completed 12/18/2017 Patient Education: Tinnitus Completed 12/18/2017 Care Plan: Referral Order SNOMED-CT : [id number] Pending 12/18/2017 Appointment: Yaima Johnson WPtel: [address] [place], [place] [phone] BP CHECK 12/11/2017 Patient Education: Patient Medication Summary Completed 12/11/2017 Referral: Danyel Hernandez WPtel: [facility] [address] Referral Initiated 10/11/2017 Appointment: Yaima Johnson WPtel: [address] [place] [address] INJECTION 10/04/2017 Patient Education: Patient Medication Summary [...] : E03.9 09/11/2017 Appointment: Yaima Johnson WPtel: [address] [place], [place] [phone] FOLLOW UP 09/11/2017 Patient Education: Patient Medication Summary Completed 09/11/2017 Appointment: Jane Nettles [address] [facility]66[facility] 08/28/17 [phone]---issue addressed in phone message (km) CANCELED 08/29/2017 Patient Education: Patient Medication Summary Completed 07/11/2017 Care Plan: A1C HPLC LO INC : 35182-7 Pending 07/11/2017 Care Plan: ASSAY OF FREE THYROXINE Pending 07/11/2017 Care Plan: ASSAY THYROID STIM HORMONE Pending 07/11/2017 Care Plan: COMPLETE CBC W/AUTO DIFF WBC LOINC : 02369-7 Pending 07/11/2017 Care Plan: COMPREHEN METABOLIC PANEL LOINC : 99133-7 Pending 07/11/2017 Visit Diagnosis Plan: Irritant contact [...] E03.9 03/28/2017 [facility]ment: [facility] [phone] [facility] [facility] 03/28/2017 Patient Education: Patient Medication Summary Completed 03/28/2017 Patient Education: Patient Medication Summary Completed 02/17/2017 Care Plan: ASSAY OF FREE THYROXINE Pending 02/17/2017 Care Plan: ASSAY THYROID STIM HORMONE Pending 02/17/2017 Care Plan: A1C HPLC LO INC : 60339-3 Pending 02/17/2017 Patient Education: Patient Medication Summary Completed 11/23/2016 Care Plan: A1C HPLC LO INC : 38733-5 Pending 11/23/2016 Patient Education: Patient Medication Summary Completed 11/22/2016 Care Plan: COMPREHEN METABOLIC PANEL LOINC : 65717-6 Pending 11/22/2016 Care Plan: ASSAY THYROID STIM [...] prn. Tyle... 09/12/2016 Appointment: Yaima Johnson WPtel: [facility] ACUTE ILLNESS 09/12/2016 Patient Education: Patient Medication Summary Completed 09/12/2016 Visit Diagnosis Plan: Pain in right knee Discussion: MRI of right knee scheduled for this weekend by ortho ICD-9 : 719.46 ICD-10 : M25.561 07/28/2016 Visit Diagnosis Plan: Dermatitis, unspecified Discussion: Use clotrimazole/betamethasone BID to hand rash ICD-9 : 692.9 ICD-10 : L30.9 07/28/2016 Appointment: [facility] Johnson [facility]el[facility] [phone] [facility] 07/27 confirmed `sl ACUTE ILLNESS 07/28/2016 [...] how does 04/26/2016 Appointment: Yaima Johnson WPtel: [address] [place], [place] [phone] ACUTE ILLNESS 04/26/2016 Patient Education: Patient Medication Summary Completed 04/26/2016 Appointment: Yaima Johnson WPtel: [phone] [place], [place] [phone] [place] INJECTION 04/22/2016 Patient Education: Patient Medication Summary Completed 04/22/2016 Appointment: Yaima Johnson WPtel: [address] [place] [phone] Stool lab 01/04/2016 Patient Education: Patient Medication Summary Completed 01/04/2016 Visit Plan: [facility] Discussed that liver lesion and right kidney cyst are stable dating back to 2009 so likely benign and will recheck in 1year Check CMP and CBC 12/09/2015 Visit Plan: [facility] Discussed that liver lesion and right kidney cyst are stable dating back to 2009 so likely benign and will recheck in 1year 12/09/2015 Appointment: Yaima Johnson WPtel: [address] [place], [place] [phone] FOLLOW UP 12/09/2015 Patient Education: Patient Medication [...] pain 09/10/2015 Appointment: Yaima Johnson WPtel: [address] [place] [phone] ACUTE ILLNESS 09/10/2015 Patient Education: Patient Medication Summary Completed 09/10/2015 Appointment: Yaima Johnson WPtel: [address] [place], [place] [phone] [place] INJECTION 07/20/2015 Patient Education: Patient Medication Summary Completed 07/20/2015 Patient Education: Patient Medication Summary Completed 05/04/2015 Visit Plan: Observe left elbow for next 2 weeks and if not improving let us know Observe left leg bruising Can use voltaren gel to elbow Observe ribs Lidoderm patch for SI joint 04/23/2015 Appointment: Yaima Johnson WPtel: [address] [place], [place] [phone] [place] FOLLOW UP 04/23/2015 Patient Education: Patient Medication Summary Completed 04/23/2015 Patient Education: Patient Medication Summary Completed 04/20/2015 Visit Plan: Discussed CT results Ad d Miralax 1/2 cap every other day 03/24/2015 Visit Plan: Discussed CT results Ad d Miralax 1/2 cap every other day 03/24/2015 Appointment: Yaima Johnson WPtel: [address] [place] [address] 03/23 confirmed~sl FOLLOW UP 03/24/2015 Patient Education: Patient Medication Summary Completed 03/24/2015 Appointment: Yaima Johnson WPtel: [address] [place], [place] [phone] [place] INJECTION 03/09/2015 Patient Education: Patient Medication Summary Completed 03/09/2015 Visit Plan: Check CT scan of abdome n and pelvis with oral contrast Thoracic towel stretch 03/05/2015 Appointment: Yaima Johnson WPtel: [address] [place], [place] [phone] [place] FOLLOW UP 03/05/2015 Patient Education: Patient Medication Summary Completed 03/05/2015 Referral: Richmond Berger WPtel: [address] [id number] [place] Referral Initiated 02/23/2015 Visit Plan: Lab [...] and left knee 02/19/2015 Appointment: Yaima Johnsontel: [address] [place], [place] [phone] 02/18/15 lm confirmed with cb FOLLOW UP 02/19/2015 Patient Education: Patient Medication Summary Completed 02/19/2015 Patient Education: Patient Medication Summary Completed 02/04/2015 Appointment: Yaima Johnson WPtel: [address] [place], [place] [phone] [place] FOLLOW UP 01/06/2015 Visit Plan: Decrease levothyroxine to 50mcg daily Recheck TSH and Free T4 in 2mos then fwup 12/25/2014 Appointment: Yaima Johnson WPtel: [address] [place] [address] ACUTE ILLNESS 12/25/2014 Patient Education: Patient Medication Summary Completed 12/25/2014 Patient Education: [facility] - [employer]aving [employer] - Levothyroxine - 18-64 - Dynamic Portal ID Completed 12/25/2014 Patient Education: Patient Medication Summary Completed 12/15/2014 Visit Plan: Observe left leg keep m eds same Has scheduled for 2nd epidural Recheck 3-4weeks after next epidural 11/26/2014 Appointment: Yaima Johnsontel: [address] [place], [place] [phone] 11/25 appt confirmed cn FOLLOW UP 11/26/2014 Patient Education: Patient Medication Summary Completed 11/26/2014 Visit Plan: Increase Protonix to 40 mg po BID Add Bentyl 10mg BID and up to TID prn Patient goes for back injection in 3 weeks Fwup 1 week after back injection 11/04/2014 Appointment: Yaima Johnsontel: [address] [place], [place] [phone] 11/03/ / 11/04 appt confirmed ACUTE ILLNESS 11/04/2014 Patient Education: Patient Medication Summary Completed 11/04/2014 Appointment: Yaima Johnson WPtel: [address] [place], [place] [phone] 10/14/14: doing better-canceled appt-lb ACUTE ILLNESS 10/15/2014 Visit Plan: hydration stop benadryl Observe and monitor Headaches Leg stretches, going to PT today-have them show stretches Notify if headaches, leg pain return/persist 09/01/2014 Appointment: Yaima Johnson WPtel: [address] [place], [place] [phone] ACUTE ILLNESS 09/01/2014 Patient Education: Patient Medication Summary Completed 09/01/2014 Patient Education: Patient Medication Summary Completed 08/05/2014 Care Plan: ASSAY OF FREE THYROXINE Ordered 08/05/2014 Care Plan: ASSAY THYROID STIM HORMONE Ordered 08/05/2014 Appointment: Yaima Johnsno WPtel: [address] [place] [address] UA 07/10/2014 Patient Education: Patient Medication Summary Completed 07/10/2014 Patient Education: Patient Medication Summary Completed 07/03/2014 Care Plan: HEPATIC FUNCTION PANEL Ordered 07/03/2014 Visit Plan: Vaginal ring unable to be inserted do will have to stick with pill vaginally as prescribed for at least 6mo trial Saline nasal flushes and restart flonase 06/02/2014 Appointment: Yaima Johnson WPtel: [address] [place] [address] FOLLOW UP 06/02/2014 Patient Education: Patient Medication Summary Completed 06/02/2014 Appointment: Yaima Johnson WPtel: [address] [place], [place] [phone] BP CHECK 05/26/2014 Patient Education: Patient Medication Summary Completed 05/26/2014 Patient Education: Patient Medication Summary Completed 05/22/2014 Appointment: Yaima Johnson WPtel: [address] [place], [place] [phone] BP CHECK 05/07/2014 Patient Education: Patient Medication Summary Completed 05/07/2014 Referral: Nitesh Avalos WPtel: [address] [place] 403 [id number] MRI Scheduled at [facility], 04/17 3pm Completed 04/30/2014 Appointment: Yaima Johnson WPtel: [address] [place] [address] BP CHECK 04/15/2014 Visit Plan: Decrease premarin to 0. 3125mg for 1week then stop Restart estrogen vaginal tabs and Patient requests to see Dr. Restrepo for back but discussed at this time appears to need conservative management such as PT and epidurals Moniter BP 04/08/2014 Appointment: Yaima Johnson WPtel: [address] [place] [address] ACUTE ILLNESS 04/08/2014 Patient Education: Patient Medication Summary Completed 04/08/2014 Appointment: Yaima Johnson WPtel: [address] [place] [address] ACUTE ILLNESS 03/10/2014 Visit Plan: Thoracic stretches get y Skelaxin 800mg BID Use vimovo prn Use gemma prn 03/05/2014 Appointment: Yaima Johnson WPtel: [address] [place] [address] ACUTE ILLNESS 03/05/2014 Patient Education: Patient Medication Summary Completed 03/05/2014 Visit Plan: Saline nasal flushes pr n. Tylenol/Motrin prn headache. Notify if persists/symptoms worsening. Zithromax and Prednisone Supportive care. Rest, Fluids, Tylenol/Motrin prn fever or bodyaches. Notify if worsening symptoms. 07/29/2013 Appointment: Mimi Keenan WPtel: [address] [place] [address] FOLLOW UP 07/29/2013 Patient Education: Patient Medication Summary Completed 07/29/2013 Appointment: Mimi Keenan WPtel: [address] [place], [place] [phone] 05/22 patient called back and reschedule d 05/24 vm not set up yet ACUTE ILLNESS 05/27/2013 Visit Plan: Add miralax Cipro/Flagy l Pt has appointment with GI in NOV 03/20/2013 Appointment: Yaima Johnson WPtel: [address] [place] [phone] ACUTE ILLNESS 03/20/2013 Patient Education: Patient Medication Summary Completed 03/20/2013 Visit Plan: Tullicups Stretches, ic e, voltaren gel TID 02/12/2013 Appointment: Yaima Johnson WPtel: [address] [place], [place] [phone] ACUTE ILLNESS 02/12/2013 Patient Education: Patient Medication [...] Oct 2012. 11/05/2012 Appointment: Lizzette Lozano WPtel: [address] [place], [place] [phone] ACUTE ILLNESS 11/05/2012 Patient Education: Patient Medication Summary Completed 11/05/2012 Visit Plan: Continue vimovo and Ske laxin and topical biofreeze Start PT May need MRI 10/04/2012 Appointment: Yaima Johnson WPtel: [address] [place], [place] [phone] FOLLOW UP 10/04/2012 Patient Education: Patient Medication Summary Completed 10/04/2012 Visit Plan: Change toprol back to b ystolic BP check in 3wks Continue to observe hands--no observed bruising today 09/24/2012 Appointment: Yaima Johnson WPtel: [address] [place] [phone] 09/21 left message ACUTE ILLNESS 09/24/2012 Patient Education: Patient Medication Summary Completed 09/24/2012 Visit Plan: Proceed with EMG of RUE Continue vimovo and skelaxin May use Voltaren gel TID to elbow and wrist 05/10/2012 Appointment: Yaima Johnson WPtel: [address] [place] [address] 12/ left voicemail ACUTE ILLNESS 05/10/2012 Patient [...] is improving 03/07/2012 Appointment: Yaima Johnson WPtel: [address] [place] [address] FOLLOW UP 03/07/2012 Patient Education: Patient Medication Summary Completed 03/07/2012 Visit Plan: Continue current dose C heck TSH, Free T4 in 2mos 02/01/2012 Appointment: Yaima Johnson WPtel: [address] [place] [address] FOLLOW UP 02/01/2012 Patient Education: Patient Medication Summary Completed 02/01/2012 Visit Plan: Levothyroxine 50mcg po daily 12/20/2011 Appointment: Yaima Johnson WPtel: [address] [place] [address] FOLLOW UP 12/20/2011 Patient Education: Patient Medication Summary Completed 12/20/2011 Visit Plan: Mupirocin topical and S eptra DS. 11/22/2011 Appointment: Lizzette Lozano WPtel: [address] [place] [address] ACUTE ILLNESS 11/22/2011 Patient Education: Patient Medication Summary Completed 11/22/2011 Appointment: Yaima Johnson WPtel: [address] [place] [address] 07/14/2011 Patient Education: Patient Medication Summary Completed 07/14/2011 Visit Plan: Finish current abx Greta r liquids to full liquids and then advance as tolerated If worsens will notify immediately Schedule with Dr. Berger for colonoscopy/EGD 07/11/2011 Appointment: Yaima Johnson WPtel: [address] [place] [address] ER Follow UP 07/11/2011 Patient Education: Patient Medication Summary Completed 07/11/2011 Visit Plan: Take treximet today and skelaxin at bedtime Add anusol cream for 1wk Discussed if colon continues to flare-up over the next 6mos will repeat colonoscopy 07/06/2011 Appointment: Yaima Johnson WPtel: [address] [place] [address] ACUTE ILLNESS 07/06/2011 Patient Education: Patient Medication Summary Completed 07/06/2011 Appointment: Yaima Johnson WPtel: [address] [place] [address] INJECTION 06/28/2011 Patient Education: Patient Medication Summary Completed 06/28/2011 Visit Plan: OMT done Increase Skela johann to TID Start PT Daily stretches 05/26/2011 Appointment: Yaima Johnson WPtel: [address] [place] [address] ACUTE ILLNESS 05/26/2011 Patient Education: Patient Medication Summary Completed 05/26/2011 Visit Plan: OMT done Daily stretche s, biofreeze Restart skelaxin 05/16/2011 Appointment: Yaima Johnson WPtel: [address] [place] [address] OMT 05/16/2011 Patient Education: Patient Medication Summary Completed 05/16/2011 Visit Plan: OMT done to back Stretc hes, moist heat and biofreeze Observe toenails 05/05/2011 Appointment: Yaima Johnson WPtel: [address] [place] [address] ACUTE ILLNESS 05/05/2011 Patient Education: Patient Medication Summary Completed 05/05/2011 Visit Plan: Finish Flagyl Continue Culturelle and add Levbid for 1more week 04/05/2011 Appointment: Yaima Johnson WPtel: [address] [place], [place] [phone] ER Follow UP 04/05/2011 Patient Education: Patient Medication Summary Completed 04/05/2011 Appointment: Lizzette Lozano WPtel: [address] [place], [place] [phone] ACUTE ILLNESS 03/25/2011 Appointment: Yaima Johnson WPtel: [address] [place] [address] UA 03/23/2011 Patient Education: Patient Medication Summary Completed 03/23/2011 Visit Plan: Recommend proceed with heart cath Will check PFTs 03/02/2011 Appointment: Yaima Johnson WPtel: [address] [place] [address] FOLLOW UP 03/02/2011 Patient Education: Patient Medication Summary Completed 03/02/2011 Appointment: Yaima Johnson WPtel: [address] [place] [address] LAB 01/14/2011 Patient Education: Patient Medication Summary [...] appnt. 01/05/2011 Appointment: Lizzette Lozano WPtel: [address] [place], [place] [phone] ACUTE ILLNESS 01/05/2011 Patient Education: Patient Medication Summary Completed 01/05/2011 Visit Plan: Once again stressed imp ortance of using premarin vaginal cream routinely to see if helps urinary symptoms Will culture urine Will observe lipomas--discussed may see surgery for removal 11/16/2010 Appointment: Yaima Johnsontel: [address] [place], [place] [phone] ACUTE ILLNESS 11/16/2010 Patient Education: Patient Medication Summary Completed 11/16/2010 Visit Plan: Injection to remigio as a escobar Pt will continue to moniter BP and pulse off meds Repeat potassium level in 1wk 11/04/2010 Appointment: Yaima Johnsontel: [address] [place] [address] FOLLOW UP 11/04/2010 Patient Education: Patient Medication Summary Completed 11/04/2010 Visit Plan: Saline nasal flushes pr n. Tylenol/Motrin prn headache. Notify if persists/symptoms worsening. 08/05/2010 Appointment: Yaima Johnsontel: [address] [place] [address] FOLLOW UP 08/05/2010 Patient Education: Patient Medication Summary Completed 08/05/2010 Visit Plan: Saline nasal flushes pr n. Tylenol/Motrin prn headache. Notify if persists/symptoms worsening. Nasacort AQ 1 spray each nostril BID 07/23/2010 Appointment: Yaima Johnsontel: [address] [place], [place] [address] ACUTE ILLNESS 07/23/2010 Patient Education: Patient Medication Summary Completed 07/23/2010 Appointment: Yaima Johnsontel: [address] [place], [place] [phone] UA 07/05/2010 Patient Education: Patient Medication Summary Completed 07/05/2010 Appointment: Yaima Johnsontel: [address] [place], [place] [phone] BP CHECK 06/28/2010 Patient Education: Patient Medication Summary Completed 06/28/2010 Appointment: Yaima Johnson: [address] [place], [place] [id number] [place] UA 06/14/2010 Appointment: Yaima Johnson WPtel: [address] [place], [place] [phone] [place] BP CHECK 06/14/2010 Appointment: Yaima Johnson WPtel: [address] [place], [place] [phone] BP CHECK 06/14/2010 Patient Education: Patient Medication Summary Completed 06/14/2010 Patient Education: Patient Medication Summary Completed 06/14/2010 Appointment: Yaima Johnson WPtel: [address] [place], [place] [phone] [place] BP CHECK 06/10/2010 Visit Plan: Decrease lisinopril hct to 10/12.5mg QD and moniter BP BP check in 2-3wks--if pulse is increasing will go back to bystolic See ENT to evaluate hoarseness 06/07/2010 Appointment: Yaima Johnson WPtel: [address] [place], [place] [phone] FOLLOW UP 06/07/2010 Patient Education: Patient Medication [...] printoff) 05/12/2010 Appointment: Lizzette Lozano WPtel: [address] [place], [place] [phone] ACUTE ILLNESS 05/12/2010 Patient Education: Patient Medication Summary Completed 05/12/2010 Visit Plan: Continue Bentyl at QAC and HS Continue protonix but increase to BID for 5-7 days If any fever or signs of divertuclitis develop notify 04/27/2010 Appointment: Yaima Johnsontewilson: [address] [place] [address] ACUTE ILLNESS 04/27/2010 Patient Education: Patient Medication Summary Completed 04/27/2010 Visit Plan: flako Chavezils . Reynaldo[address]am #90, -written RX 04/19/2010 Appointment: Lizzette Lozano WPtel: [address] [place] [address] ACUTE ILLNESS 04/19/2010 Patient Education: Patient Medication Summary Completed 04/19/2010 Appointment: Yaima Johnson WPtel: [address] [place] [address] LAB 04/12/2010 Patient Education: Patient Medication Summary Completed 04/12/2010 Appointment: Yaima Johnson WPtel: [address] [place] [address] 04/08/2010 Patient Education: Patient Medication Summary Completed 04/08/2010 Visit Plan: Use Treximet prn Start daily Macrobid Restart premarin vaginal cream Flu shot given 03/09/2010 Appointment: Yaima Johnson WPtel: [address] [place] [address] FOLLOW UP 03/09/2010 Patient Education: Patient Medication Summary Completed 03/09/2010 Appointment: Yaima Johnson WPtel: [address] [place] [address] BP CHECK 01/19/2010 Patient Education: Patient Medication Summary Completed 01/19/2010 Visit Plan: Check CT head Increase Bystolic to 5mg QD BP check in 2wks 01/04/2010 Appointment: Yaima Johnson WPtel: [address] [place] [address] ACUTE ILLNESS 01/04/2010 Patient Education: Patient Medication Summary Completed 01/04/2010 Appointment: Yaima Johnson WPtel: [address] [place] [address] BP CHECK 12/21/2009 Patient Education: Patient Medication Summary Completed 12/21/2009 Visit Plan: Change cenestin back to Premarin Cont to moniter BP BP check in 1wk 12/14/2009 Appointment: Yaima Johnson WPtel: [address] [place], [place] [id number] FOLLOW UP 12/14/2009 Patient Education: Patient Medication [...] a Z-pack. 11/23/2009 Appointment: Lizzette Lozano WPtel: [address] [place], [place] [phone] FOLLOW UP 11/23/2009 Patient Education: Patient Medication Summary Completed 11/23/2009 Appointment: Yaima Johnson WPtel: [address] [place], [place] [id number] [place] LAB 09/29/2009 Patient Education: Patient Medication Summary Completed 09/29/2009 Appointment: Yaima Johnson WPtel: [address] [place], [place] [id number] [place] LAB 08/12/2009 Patient Education: Patient Medication Summary Completed 08/12/2009 Referral: Richmond Berger WPtel: [address] [id number] [place] Referral Appointment Requested Referral: Jayce Boyce WPtel: [address] [id number] [place] Referral Appointment Requested Referral: Naldo Johnson WPtel: [address] [id number] [place] Referral Initiated Referral: Naldo Johnson WPtel: [address] [id number] [place] Referral Appointment Requested Instructions Comment . [...]
--- OUTSIDE RECORDS SUMMARY | 2019-08-15 06:24 | XMS REPORT | CCD ---
Author Author Fay Johnson D.O. Organization [facility] Address [address] [place] [address] Phone Care Team Providers Care [employer] Name Role Phone Yaima Johnson D.O., PP Unavailable CCM Unavailable Summary Purpose Interface Exchange Insurance Providers Payer name Policy type / Coverage type Covered alliance party ID Effective Begin Date Effective End Date WPS MEDIC[place] Medicare Part B [id number] 2018 Unknown [facility] [facility] Medicare Part B [id number] 2018 Unknown Family History Family History data not found Social History Social History Element Codes Description Effective Dates Marital status Unknown M arried 05/16/[address]: 486753656 Never smoker 04/05/2011 Allergies, Adverse Reactions, Alerts Substance Reaction Codes Entered Date Inactivated Date Status * NO KNOWN FOOD ARMANDO RGIES Unknown 11/23/2009 No Inactive Date Active _ Unknown 11/23/2009 No Inactive Date Active _ Unknown 11/23/2009 No Inactive Date Active Past Medical History Illness Codes Condition Status Onset Date Resolved Date Left lower quadrant pain ICD-9: 789.04 ICD-10: R10.32 Active 01/09/2019 Unknown Encounter for genera l adult medical examination without abnormal findings ICD-9: V70.9 ICD-10: Z00.00 Active 11/21/2018 Unknown Hematuria, unspecified ICD-9: 599.70 ICD-10: R31.9 Active 11/01/2018 Unknown Hypothyroidism, unsp ecified ICD-9: 244.9 ICD-10: [...] Condition Codes Effectiv e Dates Condition Status Left lower quadrant pain ICD-9: 789.04 ICD-10: R10.32 01/09/2019 Active Encounter for genera l adult medical examination without abnormal findings ICD-9: V70.9 ICD-10: Z00.00 11/21/2018 Active Hematuria, unspecified ICD-9: 599.70 ICD-10: R31.9 11/01/2018 Active Hypothyroidism, unsp ecified ICD-9: 244.9 ICD-10: [...] Fill Instructions Mobic 7.5 mg tablet RxNorm: 608994 1 Tablet(s) PO QOD opposite days as alev e 11/21/2018 11/21/2018 In active dicyclomine 10 mg ca psule RxNorm: 400185 1 Capsule(s) PO TID a s needed for abdominal pain 08/23/2018 No Stop Date Active alprazolam 0.25 mg t ablet RxNorm: 699451 1 Tablet(s) PO Q8H as needed for anxiety 08/10/2018 11/20/2018 In active [AttnRPh: Saving apply/adjudicate RxGRP: SG20 RxBIN:[id number] RxPCN:HT ID#:[id number]] levothyroxine 25 mcg tablet RxNorm: 631454 1 Tablet(s) PO QD rep laces 50mcg dose 08/06/2018 10/04/2018 In active levothyroxine 25 mcg tablet RxNorm: 080974 1 Tablet(s) PO QD rep laces 50mcg dose 08/06/2018 08/05/2018 In active levothyroxine 50 mcg tablet RxNorm: 160846 1 Tablet(s) PO QD 07/26/2018 08/05/2018 Inactive Generic For:*SYNTHROID 0.05MG TAB 08/09 8:59:33 AM Mobic 7.5 mg tablet RxNorm: 239990 1 Tablet(s) PO QOD opposite days as alev e 07/10/2018 09/07/2018 In active Mobic 7.5 mg tablet RxNorm: 969101 1 Tablet(s) PO QD 07/10/2018 07/09/2018 Inactive Toprol XL 25 mg tabl et,extended release RxNorm: 020648 1 Tablet(s) PO QD 06/18/2018 03/14/2019 Ac tive Generic For:TOPROL XL 25MG TAB SA 2015 9:08:41 AM amoxicillin 500 mg c apsule RxNorm: 904754 1 Capsule(s) PO TID 06/04/2018 06/10/2018 Inactive amoxicillin 500 mg c apsule RxNorm: 857382 1 Capsule(s) PO TID 06/04/2018 06/03/2018 Inactive Skelaxin 800 mg tablet RxNorm: 964051 1 Tablet(s) PO BID as needed for muscle spasm 05/31/2018 No Stop Date Active levothyroxine 50 mcg tablet RxNorm: 991277 1 Tablet(s) PO QD 02/02/2018 07/25/2018 Inactive Generic For:*SYNTHROID 0.05MG TAB 08/09 8:59:33 AM Toprol XL 25 mg tabl et,extended release RxNorm: 070775 1 Tablet(s) PO QD 12/19/2017 06/16/2018 In active Generic For:TOPROL XL 25MG TAB SA 12/20 9:08:41 AM ranitidine 150 mg ta blet RxNorm: 210340 1 Tablet(s) PO BID 12/11/2017 05/31/2018 Inactive levothyroxine 50 mcg tablet RxNorm: 406904 1 Tablet(s) PO QD SHIMON E 1 TABLET BY MOUTH EVERY DAY 08/03/2017 02/02/2018 Inactive Generic For:*SYNTHROID 0.05 MG TAB 08/09/2016 8:59:33 AM Singulair 10 mg tablet RxNorm: 253183 1 Tablet(s) PO QHS 07/11/2017 09/10/2017 Inactive dicyclomine 10 mg ca psule RxNorm: 635755 1 Capsule(s) PO TID a s needed for abdominal pain 06/08/2017 08/22/2018 Inactive ranitidine 150 mg ta blet RxNorm: 359211 1 Tablet(s) PO BID 06/08/2017 09/05/2017 Inactive Toprol XL 25 mg tabl et,extended release RxNorm: 425161 1 Tablet(s) PO QD 06/08/2017 12/19/2017 In active Generic For:TOPROL XL 25MG TAB SA 12/20 9:08:41 AM betamethasone diprop ionate 0.05 % topical cream RxNorm: 114643 1 Application TOP QHS 03/28/2017 10/03/2018 Inactive levothyroxine 50 mcg tablet RxNorm: 271588 1 Tablet(s) PO QD SHIMON E 1 TABLET BY MOUTH EVERY DAY 02/03/2017 08/01/2017 Inactive Generic For:*SYNTHROID 0.05 MG TAB 08/09/2016 8:59:33 AM ranitidine 150 mg ta blet RxNorm: 495519 1 Tablet(s) PO BID 12/15/2016 06/08/2017 Inactive Toprol XL 25 mg tabl et,extended release RxNorm: 590717 1 Tablet(s) PO QD 12/15/2016 06/08/2017 In active Generic For:TOPROL XL 25MG TAB SA 12/20 9:08:41 AM ranitidine 150 mg ta blet RxNorm: 271124 1 Tablet(s) PO BID 11/11/2016 12/10/2016 Inactive ranitidine 75 mg tablet RxNorm: 819937 1 Tablet(s) PO QD 10/21/2016 11/10/2016 Inactive ranitidine 75 mg tablet RxNorm: 793744 1 Tablet(s) PO QD 10/21/2016 10/20/2016 Inactive Tamiflu 75 mg capsule RxNorm: 244002 1 Capsule(s) PO BID 09/12/2016 09/16/2016 Inactive Promethegan 25 mg re ctal suppository RxNorm: 142773 1 Suppository RTL Q4H as needed 09/12/2016 03/27/2017 In active levothyroxine 50 mcg tablet RxNorm: 134361 TAKE 1 TABLET BY MOUT H EVERY DAY 08/09/2016 02/03/2017 In active Generic For:*SYNTHROID 0.05MG TAB 08/09 8:59:33 AM famotidine 40 mg tablet RxNorm: 156914 1 Tablet(s) PO BID 07/22/2016 10/20/2016 Inactive clotrimazole-betamet hasone 1 %-0.05 % topical cream RxNorm: 316555 1 Application TOP BID to rash prn--was supposed to be cream not lotion 06/23/2016 03/27/2017 Inactive famotidine 40 mg tablet RxNorm: 079645 1 Tablet(s) PO BID 06/23/2016 07/21/2016 Inactive Toprol XL 25 mg tabl et,extended release RxNorm: 996929 1 Tablet(s) PO QD 06/14/2016 12/15/2016 In active Generic For:TOPROL XL 25MG TAB SA 12/20 9:08:41 AM dicyclomine 10 mg ca psule RxNorm: 092458 1 Capsule(s) PO TID a s needed for abdominal pain 04/26/2016 06/07/2017 Inactive dicyclomine 10 mg ca psule RxNorm: 219063 1 Capsule(s) PO TID a s needed for abdominal pain 04/26/2016 06/08/2017 Inactive famotidine 40 mg tablet RxNorm: 754992 1 Tablet(s) PO QD 04/26/2016 06/22/2016 Inactive Protonix 40 mg table t,delayed release RxNorm: 365901 1 Tablet(s) PO QD 02/05/2016 03/27/2017 In active levothyroxine 50 mcg tablet RxNorm: 554850 1 Tablet(s) PO QD 01/25/2016 07/22/2016 Inactive Toprol XL 25 mg tabl et,extended release RxNorm: 354762 TAKE ONE TABLET BY [facility] EVERY DAY 12/21/2015 06/14/2016 Inactive Generic For:TOPROL XL 25MG TAB SA 12/20 9:08:41 AM Protonix 40 mg table t,delayed release RxNorm: 781061 1 Tablet(s) PO QD 07/27/2015 01/22/2016 In active levothyroxine 50 mcg tablet RxNorm: 460409 1 Tablet(s) PO QD 07/22/2015 01/17/2016 Inactive Phenergan 25 mg rect al suppository RxNorm: 111704 1 Suppository RTL Q4H as needed for nausea and vomiting 07/20/2015 12/08/2015 Inactive Toprol XL 25 mg tabl et,extended release RxNorm: 627120 1 Tablet(s) PO QD 06/15/2015 12/11/2015 In active clotrimazole-betamet hasone 1 %-0.05 % topical cream RxNorm: 301577 1 Application TOP BID to rash prn--was supposed to be cream not lotion 05/20/2015 05/19/2015 Inactive Protonix 40 mg table t,delayed release RxNorm: 373019 1 Tablet(s) 1 Tablet( s) PO QD 04/23/2015 07/27/2015 In active levothyroxine 50 mcg tablet RxNorm: 960401 1 Tablet(s) PO QD 04/23/2015 07/21/2015 Inactive Lidoderm 5 % (700 mg /patch) adhesive patch RxNorm: 3742164 1-2 Unit Dose TOP QD on for 12hrs then off for 12hrs 04/23/2015 03/27/2016 Inactive Miralax 17 gram oral powder packet RxNorm: 841500 1/2 Unit Dose PO ever y other day 03/24/2015 03/29/2015 In active levothyroxine 50 mcg tablet RxNorm: 576591 1 Tablet(s) PO QD 02/19/2015 04/19/2015 Inactive dicyclomine 10 mg ca psule RxNorm: 611587 1 Capsule(s) PO TID a s needed for abdominal pain 02/19/2015 04/25/2016 Inactive dicyclomine 10 mg ca psule RxNorm: 697045 1 Capsule(s) PO TID a s needed for abdominal pain 12/25/2014 02/18/2015 Inactive Protonix 40 mg table t,delayed release RxNorm: 423100 1 Tablet(s) PO BID 12/25/2014 03/04/2015 In active levothyroxine 50 mcg tablet RxNorm: 847936 1 Tablet(s) PO QD 12/25/2014 02/18/2015 Inactive Flonase 50 mcg/actua tion nasal spray,suspension RxNorm: 615573 2 [place] NASAL QHS 12/25/2014 10/03/2018 In active [SAVINGS FOR NON-COVERED DRUGS -- BIN:00 3585, PCN: ASPROD1, Group: XXXXX, ID# [id number], Questions: . THIS IS NOT INSURANCE.] Toprol XL 25 mg tabl et,extended release RxNorm: 868547 1 Tablet(s) PO QD 12/01/2014 05/29/2015 In active dicyclomine 10 mg ca psule RxNorm: 153131 1 Capsule(s) PO TID a s needed for abdominal pain 12/01/2014 12/24/2014 Inactive levothyroxine 75 mcg tablet RxNorm: 988167 1 Tablet(s) PO QD 11/10/2014 12/24/2014 Inactive [AttnRPh: Saving apply/adjudicate RxGRP: SG20 RxBIN:[id number] RxPCN: ID#:[id number]] Protonix 40 mg table t,delayed release RxNorm: 524341 1 Tablet(s) BID 1 Tab let(s) PO QD 11/04/2014 12/24/2014 Inactive dicyclomine 10 mg ca psule RxNorm: 106456 1 Capsule(s) PO TID a s needed for abdominal pain 11/04/2014 11/30/2014 Inactive Protonix 40 mg table t,delayed release RxNorm: 080441 Tablet(s) 1 Tablet(s) PO QD 10/14/2014 11/03/2014 In active Flonase 50 mcg/actua tion nasal spray,suspension RxNorm: 465078 2 [place] NASAL QHS 09/01/2014 12/24/2014 In active [SAVINGS FOR NON-COVERED DRUGS -- BIN:00 3585, PCN: ASPROD1, Group: XXXXX, ID# [id number], Questions: . THIS IS NOT INSURANCE.] Toprol XL 25 mg tabl et,extended release RxNorm: 672962 Tablet(s) 1/2 Tablet( s) PO QD 08/28/2014 11/25/2014 Inactive [SAVINGS FOR UNINSURED PATIENTS -- BIN:0 54224, PCN: ASPROD1, Group: [id number], ID# [id number], Process claim through [employer], for questions: . THIS IS NOT INSURANCE.] estradiol 0.01% (0.1 mg/gram) vaginal cream RxNorm: 934669 1 Gram(s) VAG Insert vaginally at bedtime, Monday, Monday and Monday06/26/2014 12/24/2014 Inactive Toprol XL 25 mg tabl et,extended release RxNorm: 587223 1/2 Tablet(s) PO QD 06/06/2014 08/27/2014 In active [SAVINGS FOR UNINSURED PATIENTS -- BIN:0 10013, PCN: ASPROD1, Group: [id number], ID# [id number], Process claim through [employer], for questions: . THIS IS NOT INSURANCE.] estradiol 0.5 mg tablet RxNorm: 254218 1 Tablet(s) VAG Place one tablet in the vagina at bedtime three times a week 06/02/2014 06/25/2014 Inactive Estring 2 mg vaginal RxNorm: 412973 VAG Insert vaginally and remove after 90 days 05/27/2014 06/01/2014 Inactive Toprol XL 25 mg tabl et,extended release RxNorm: 139664 1/2 Tablet(s) PO QD 04/15/2014 04/14/2014 In active Protonix 40 mg table t,delayed release RxNorm: 060744 1 Tablet(s) PO QD 04/15/2014 10/14/2014 In active estradiol 0.5 mg tablet RxNorm: 706912 1 Tablet(s) VAG Place one tablet in the vagina at bedtime twice a week 04/15/2014 06/01/2014 Inactive Toprol XL 25 mg tabl et,extended release RxNorm: 754836 1/2 Tablet(s) PO QD 04/15/2014 06/05/2014 In active [SAVINGS FOR UNINSURED PATIENTS -- BIN:0 41707, PCN: ASPROD1, Group: [id number], ID# [id number], Process claim through [employer], for questions: . THIS IS NOT INSURANCE.] levothyroxine 75 mcg tablet RxNorm: 704620 1 Tablet(s) PO QD 04/08/2014 04/07/2014 Inactive [AttnRPh: Saving apply/adjudicate RxGRP: SG20 RxBIN:[id number] RxPCN: ID#:[id number]] Flonase 50 mcg/actua tion nasal spray,suspension RxNorm: 757528 1 [place] NASAL BID 04/08/2014 08/31/2014 In active levothyroxine 75 mcg tablet RxNorm: 486098 1 Tablet(s) PO QD 04/08/2014 10/04/2014 Inactive [AttnRPh: Saving apply/adjudicate RxGRP: SG20 RxBIN:[id number] RxPCN: ID#:[id number]] estradiol 0.5 mg tablet RxNorm: 142719 Tablet(s) PO Place one tablet in the vag [place] at bedtime one time weekly 04/08/2014 04/07/2014 Inactive levothyroxine 75 mcg tablet RxNorm: 621755 1 Tablet(s) PO QD 03/20/2014 04/07/2014 Inactive [AttnRPh: Saving apply/adjudicate RxGRP: SG20 RxBIN:[id number] RxPCN:HT ID#:[id number]] Skelaxin 800 mg tablet RxNorm: 983478 1 Tablet(s) PO TID as needed for muscle spasm 03/05/2014 11/03/2014 Inactive alprazolam 0.25 mg t ablet RxNorm: 683405 1 Tablet(s) PO Q8H as needed for anxiety 02/27/2014 08/05/2018 In active [AttnRPh: Saving apply/adjudicate RxGRP: SG20 RxBIN:[id number] RxPCN:HT ID#:[id number]] Synthroid 75 mcg tablet RxNorm: 010857 1 Tablet(s) PO QD 11/29/2013 11/03/2014 Inactive levothyroxine 75 mcg tablet RxNorm: 255244 1 Tablet(s) PO QD -Ne ed labs 11/27/2013 03/19/2014 In active [AttnRPh: Saving apply/adjudicate RxGRP: SG20 RxBIN:[id number] RxPCN: ID#:[id number]] Protonix 40 mg table t,delayed release RxNorm: 561982 1 Tablet(s) PO QD 10/07/2013 04/04/2014 In active Synthroid 75 mcg tablet RxNorm: 069814 1 Tablet(s) PO QD 09/02/2013 11/28/2013 Inactive Zithromax 500 mg tablet RxNorm: 638757 1 Tablet(s) PO QD 07/29/2013 08/04/2013 Inactive prednisone 20 mg tablet RxNorm: 664352 1 Tablet(s) PO QD 07/29/2013 08/02/2013 Inactive Synthroid 75 mcg tablet RxNorm: 125999 1 Tablet(s) PO QD Patient wants it put o n hold 05/14/2013 09/02/2013 Inactive Synthroid 75 mcg tablet RxNorm: 089119 1 Tablet(s) PO QD 05/01/2013 05/13/2013 Inactive Flagyl 500 mg tablet RxNorm: 584495 1 Tablet(s) PO BID 03/20/2013 04/02/2013 Inactive Cipro 500 mg tablet RxNorm: 456922 1 Tablet(s) PO QD 03/20/2013 04/02/2013 Inactive levothyroxine 75 mcg tablet RxNorm: 053293 1 Tablet(s) PO QD 11/05/2012 05/03/2013 Inactive Septra DS 800 mg-160 mg tablet RxNorm: 896594 1 Tablet(s) PO BID an tibiotic 11/05/2012 11/09/2012 In active Bystolic 5 mg tablet RxNorm: 532393 1 Tablet(s) PO QD 10/10/2012 08/05/2018 Inactive Bystolic 5 mg tablet RxNorm: 516856 1 Tablet(s) PO QD 10/10/2012 02/11/2013 Inactive Protonix 40 mg table t,delayed release RxNorm: 448749 1 Tablet(s) PO QD 09/24/2012 09/18/2013 In active Synthroid 75 mcg tablet RxNorm: 115672 1 Tablet(s) PO QD 08/01/2012 09/23/2012 Inactive Synthroid 75 mcg tablet RxNorm: 110933 1 Tablet(s) PO QD Brand name only 07/03/2012 07/31/2012 In active Skelaxin 800 mg tablet RxNorm: 521802 1 Tablet(s) PO TID prn spasm 05/02/2012 03/04/2014 Inactive Zithromax Z-Leonel 250 mg tablet RxNorm: 234084 Tablet(s) PO As Direc sheridan 04/12/2012 05/01/2012 In active levothyroxine 75 mcg tablet RxNorm: 561659 1 Tablet(s) PO QD 04/03/2012 08/05/2018 Inactive levothyroxine 75 mcg tablet RxNorm: 099936 1 Tablet(s) PO QD 04/03/2012 07/01/2012 Inactive Ultram 50 mg tablet RxNorm: 036955 1-2 Tablet(s) PO TID as needed for migra ine 04/03/2012 11/03/2014 In active Vimovo 500 mg-20 mg tablets,immediate & delayed release RxNorm: 052123 1 Tablet(s) PO BID for pain 03/28/2012 07/25/2012 Inactive levothyroxine 75 mcg tablet RxNorm: 971817 1 Tablet(s) PO QD 03/07/2012 04/02/2012 Inactive levothyroxine 50 mcg tablet RxNorm: 669222 1 Tablet(s) PO QD 02/01/2012 09/23/2012 Inactive levothyroxine 50 mcg tablet RxNorm: 789662 1 Tablet(s) PO QD 12/20/2011 01/31/2012 Inactive Septra DS 800 mg-160 mg Tab RxNorm: 884843 1 Tablet(s) PO BID 11/22/2011 11/26/2011 Inactive mupirocin 2 % Ointment RxNorm: 799674 1 Application TOP TID 11/22/2011 11/28/2011 Inactive Protonix 40 mg table t,delayed release RxNorm: 600384 1 Tablet(s) PO QD 09/13/2011 09/24/2012 In active hydrocodone-acetamin ophen 5 mg-500 mg Tab RxNorm: 179457 1 Tablet(s) PO Q4-6H as needed for pain 07/13/2011 11/21/2011 Inactive Skelaxin 800 mg tablet RxNorm: 190946 1 Tablet(s) PO TID prn spasm 06/30/2011 11/21/2011 Inactive Skelaxin 800 mg Tab RxNorm: 886988 1 Tablet(s) PO TID prn spasm 05/23/2011 No Stop Date Active potassium chloride E R 10 mEq Cap RxNorm: 0424741 2 Capsule(s) PO QD 12/30/2010 01/30/2011 Inactive potassium chloride E R 10 mEq Cap RxNorm: 9906224 1 Capsule(s) PO QD 12/29/2010 12/29/2010 Inactive Take 2 tablets by mouth on Monday, , Monday and 1 tablet by mouth on Monday, , Monday and Monday Premarin 0.9 mg Tab RxNorm: 758856 1 Tablet(s) PO QD 12/09/2010 01/07/2011 Inactive potassium chloride E R 10 mEq Cap RxNorm: 1902021 1 Capsule(s) PO QD 12/07/2010 No Stop Date Active Take 2 tablets by mouth on Monday, , Monday and 1 tablet by mouth on Monday, , Monday and Monday promethazine 12.5 mg Rectal Suppository RxNorm: 165291 1 Application RTL Q6- 8H 12/07/2010 12/16/2010 In active prn nausea and vomiting potassium chloride E R 10 mEq Cap RxNorm: 9272525 1 Capsule(s) PO QD 12/03/2010 No Stop Date Active MWF take 2 tablets daily. Take one tabl et daily on other days. Protonix 40 mg Tab RxNorm: 186148 1 Tablet(s) PO QD 09/27/2010 09/13/2011 Inactive cefdinir 300 mg Cap RxNorm: 265916 2 Capsule(s) PO QD 08/05/2010 08/04/2010 Inactive cefdinir 300 mg Cap RxNorm: 633826 2 Capsule(s) PO QD 08/05/2010 08/14/2010 Inactive Premarin 1.25 mg Tab RxNorm: 076367 1 Tablet(s) PO QD 06/14/2010 12/09/2010 Inactive lisinopril-hydrochlo rothiazide 10 mg-12.5 mg Tab RxNorm: 217150 1 Tablet(s) PO 06/07/2010 11/04/2010 In active alprazolam 0.25 mg Tab RxNorm: 182925 1 Tablet(s) PO TID written script provid ed to patient. 05/24/2010 06/22/2010 Inactive Treximet 85 mg-500 m g Tab RxNorm: 234677 1 Tablet(s) PO PRN 05/12/2010 09/23/2012 Inactive lisinopril-hydrochlo rothiazide 20 mg-12.5 mg Tab RxNorm: 809135 1 Tablet(s) PO QD 05/12/2010 11/04/2010 In active alprazolam 0.25 mg Tab RxNorm: 407450 1 Tablet(s) PO TID written script provid ed to patient. 04/19/2010 05/23/2010 Inactive Macrobid 100 mg Cap RxNorm: 7311166 1 Capsule(s) PO BID 04/08/2010 04/17/2010 Inactive Premarin 1.25 mg Tab RxNorm: 867329 1 Tablet(s) PO QD 03/22/2010 06/13/2010 Inactive Amitriptyline 10 mg Tab RxNorm: 238210 1 Tablet(s) PO QD 03/22/2010 06/19/2010 Inactive Protonix 40 mg Tab RxNorm: 708728 1 Tablet(s) PO QD 03/22/2010 06/19/2010 Inactive alprazolam 0.25 mg Tab RxNorm: 902344 1 Tablet(s) PO TID 03/10/2010 04/08/2010 Inactive Macrobid 100 mg Cap RxNorm: 4951311 1 Capsule(s) PO QD 03/09/2010 04/26/2010 Inactive Bystolic 5 mg Tab RxNorm: 471773 1 Tablet(s) PO QD Fill at 30 if insuranc e will not accept 03/01/2010 11/04/2010 Inactive Protonix 40 mg Tab RxNorm: 227965 1 Tablet(s) PO QD 11/23/2009 12/22/2009 Inactive Premarin 1.25 mg Tab RxNorm: 942717 1 Tablet(s) PO QD 11/23/2009 12/13/2009 Inactive Bentyl 10 mg Cap RxNorm: 781291 1 Capsule(s) PO QID 11/23/2009 11/15/2010 Inactive Elavil 10 mg Tab RxNorm: 076129 1 Tablet(s) PO QPM 11/19/2009 11/15/2010 Inactive Cranberry Concentrat e capsule RxNorm: 1 Capsule(s) PO QD No Start Date Active Estrace 0.01% (0.1 m g/gram) vaginal cream RxNorm: 865502 1 Application VAG wee kly No Start Date Active Xyzal 5 mg tablet RxNorm: 931254 1 Tablet(s) PO QD No Start Date Active Protonix 40 mg table t,delayed release RxNorm: 988066 1 Tablet(s) PO QD No Start Date Active fluticasone propiona te 50 mcg/actuation nasal spray,suspension RxNorm: 7469874 2 [place] NASAL QD No Start Date Active Vitamin D3 2,000 uni t tablet RxNorm: 859155 1 Tablet(s) PO QD No Start Date Active levothyroxine 50 mcg tablet RxNorm: 468846 1 Tablet(s) PO QD No Start Date Active BIOFREEZE Top RxNorm: Topical No Start Date Active meloxicam 15 mg tablet RxNorm: 344152 1 Tablet(s) PO QD as needed No Start Date Active multivitamin chewabl e tablet RxNorm: 1 Tablet(s) PO QD No Start Date Active Estring 2 mg vaginal RxNorm: 878583 VAG Insert vaginally and remove after 90 days No Start Date 05/26/2014 Inactive Premarin 0.625 mg ta blet RxNorm: 001211 1 Tablet(s) PO QD No Start Date 04/07/2014 Inactive Miralax 17 gram/dose oral powder RxNorm: 308503 1 capful PO QD No Start Date 08/05/2018 Inactive diazepam 5 mg tablet RxNorm: 127417 2 Tablet(s) PO before MRI No Start Date 10/03/2018 Inactive Protonix 40 mg table t,delayed release RxNorm: 022132 1 Tablet(s) PO QD No Start Date 07/26/2015 Inactive B12 sublingual RxNorm: 57237 sublingual No Start Date 03/27/2017 Inactive Treximet 85 mg-500 m g Tab RxNorm: 084208 Tablet(s) PO PRN No Start Date 05/11/2010 Inactive Gemma 180 mg Tab RxNorm: 381762 1 Tablet(s) PO QD No Start Date 12/19/2011 Inactive Gemma Allergy 180 mg tablet RxNorm: 800526 1 Tablet(s) PO QD No Start Date 08/31/2014 Inactive estradiol 0.01% (0.1 mg/gram) vaginal cream RxNorm: 649429 1 Gram(s) VAG Insert vaginally at bedtime, Monday, Monday and Monday No Start Date 06/25/2014 Inactive Tylenol Ex Str Arthr itis Pain 500 mg tablet RxNorm: 308242 2 Tablet(s) PO TID No Start Date 08/05/2018 Inactive Toprol XL 25 mg tabl et,extended release RxNorm: 964062 1 Tablet(s) PO QD No Start Date 11/30/2014 Inactive Ultram 50 mg tablet RxNorm: 422197 1-2 Tablet(s) PO TID as needed for migra ine No Start Date 04/02/2012 Inactive Premarin 0.9 mg Tab RxNorm: 804441 1 Tablet(s) PO QD No Start Date 12/19/2011 Inactive Bystolic 5 mg Tab RxNorm: 851048 1/2 Tablet(s) PO QD No Start Date 02/28/2010 Inactive Ondansetron HCl 4 mg Tab RxNorm: 515930 1 Tablet(s) PO TID or every 8hrs as needed for nausea No Start Date 11/21/2011 Inactive Protonix 40 mg table t,delayed release RxNorm: 440737 1 Tablet(s) PO BID No Start Date 12/24/2014 Inactive potassium chloride E R 10 mEq Cap RxNorm: 0567137 1 Capsule(s) PO QD No Start Date 12/02/2010 Inactive Miralax 17 gram/dose oral powder RxNorm: 847262 1 capful PO QD No Start Date 03/29/2015 Inactive levothyroxine 75 mcg tablet RxNorm: 484221 1 Tablet(s) PO QD six days a week No Start Date 12/24/2014 Inactive Cenestin 1.25 mg Tab RxNorm: 993263 1 Tablet(s) PO QD No Start Date 01/03/2010 Inactive calcium-vitamin D3 5 00 mg oral wafer RxNorm: 1 Tablet(s) PO QD No Start Date 12/08/2015 Inactive Vimovo 500 mg-20 mg tablet,immediate & delayed release RxNorm: 102963 1 Tablet(s) PO QD No Start Date 11/03/2014 Inactive alprazolam 0.25 mg t ablet RxNorm: 627185 1 Tablet(s) PO Q8H as needed for anxiety/stress No Start Date 12/24/2014 Inactive betamethasone diprop ionate 0.05 % topical cream RxNorm: 084606 1 Application TOP QHS No Start Date 03/27/2017 Inactive cetirizine 10 mg cap verito RxNorm: 7105248 1 Capsule(s) PO QD No Start Date 09/10/2017 Inactive Skelaxin 800 mg Tab RxNorm: 863970 Tablet(s) PO PRN No Start Date 11/15/2010 Inactive Zithromax Z-Leonel 250 mg tablet RxNorm: 691112 Tablet(s) PO As Direc sheridan No Start Date 04/11/2012 Inactive Zithromax Z-Leonel 250 mg Tab RxNorm: 371237 Tablet(s) PO as directed No Start Date 11/15/2010 Inactive Gemma 180 mg tablet RxNorm: 590038 1 Tablet(s) PO QD No Start Date 12/24/2014 Inactive Anusol-HC 2.5 % Rect al Cream RxNorm: 227175 Application RTL BID f or 1wk No Start Date 12/19/2011 Inactive metoprolol succinate ER 25 mg 24 hr Tab RxNorm: 592471 1/2 Tablet(s) PO QD No Start Date 10/03/2012 Inactive clotrimazole-betamet hasone 1 %-0.05 % Lotion RxNorm: 401734 Application TOP BID t o rash No Start Date 05/15/2011 Inactive ranitidine 150 mg ta blet RxNorm: 838440 1 Tablet(s) PO QD No Start Date 12/06/2018 Inactive ranitidine 150 mg ta blet RxNorm: 167944 1 Tablet(s) PO BID No Start Date 11/10/2016 Inactive promethazine 12.5 mg Rectal Suppository RxNorm: 878935 1 Application RTL Q6- 8H No Start Date 12/06/2010 Inactive Maxalt-BAR STEWARD 10 mg dis integrating tablet RxNorm: 635791 1 Tablet(s) PO at hea dache onset--may repeat in 2hrs if needed No Start Date 12/24/2014 Inactive Benadryl 25 mg capsule RxNorm: 2532043 Capsule(s) PO as needed No Start Date 12/24/2014 Inactive Cranberry Concentrat e 500 mg capsule RxNorm: 829043 1 Capsule(s) PO QD No Start Date 09/10/2017 Inactive Mobic 15 mg tablet RxNorm: 931881 1 Tablet(s) PO on opposite days of Aleve No Start Date 11/20/2018 Inactive Bystolic 5 mg tablet RxNorm: 288257 1 Tablet(s) PO QD No Start Date 10/09/2012 Inactive Premarin 1.25 mg Tab RxNorm: 832881 1 Tablet(s) PO QD No Start Date 03/21/2010 Inactive clotrimazole-betamet hasone 1 %-0.05 % topical cream RxNorm: 206174 Application TOP BID to rash prn--was supposed to be cream not lotion No Start Date 12/19/2011 Inactive azithromycin 250 mg Tab RxNorm: 331267 2 Tablet(s) PO QD take 2 tablets (500 mg ) by oral route once daily for 1 day then 1 tablet (250 mg) by oral route once daily for 4 days No Start Date 06/06/2010 Inactive hydrocodone-acetamin ophen 5 mg-500 mg Tab RxNorm: 875545 1 Tablet(s) PO Q4-6H as needed for pain No Start Date 07/12/2011 Inactive Levbid 0.375 mg 12 h r Tab RxNorm: 8552889 1 Tablet(s) PO BID a s needed for stomach cramping No Start Date 11/21/2011 Inactive Phenergan 25 mg rect al suppository RxNorm: 195496 1 Suppository RTL Q4H as needed for nausea and vomiting No Start Date 07/19/2015 Inactive baclofen 10 mg tablet RxNorm: 629677 1 Tablet(s) PO QHS No Start Date 11/03/2014 Inactive loratadine 10 mg tablet RxNorm: 223945 1 Tablet(s) PO QD No Start Date 10/03/2018 Inactive famotidine 40 mg tablet RxNorm: 609445 1 Tablet(s) PO BID No Start Date 06/22/2016 Inactive Zithromax Z-Leonel 250 mg Tab RxNorm: 842511 Tablet(s) PO as directed No Start Date 11/15/2010 Inactive Singulair 10 mg tablet RxNorm: 472404 1 Tablet(s) PO QHS No Start Date 07/10/2017 Inactive Premarin 0.625 mg/g Vaginal Cream RxNorm: 110326 1 Gram(s) VAG QHS 2-3 times weekly No Start Date 01/05/2011 Inactive Alprazolam 0.25 mg Tab RxNorm: 161667 1 Tablet(s) PO TID No Start Date 03/09/2010 Inactive Claritin 10 mg tablet RxNorm: 327180 1 Tablet(s) PO QD No Start Date [...] completed Assessments Condition Codes Effectiv e Dates Left lower quadrant pain ICD-10: R10 .32 ICD-9: 789.04 01/09/2019 Encounter for general adult medical exam ination without abnormal findings ICD-10: Z00.00 ICD-9: V70.9 11/21/2018 Hematuria, unspecified ICD-10: R31.9 ICD-9: 599.70 11/01/2018 Hypothyroidism, unspecified ICD-10: E03.9 ICD-9: 244.9 10/04/2018 [...] Visit Reason For Visit Effective Dates Notes abdominal pain 01/09/2019 well woman exam (65+ [...] follow up 11/26/2014 fatigue 11/04/2014 headache 09/01/2014 Goldy farias reactions to allergy shots---instructed to take gemma [...] Rendon would like to proceed with heart laboratory coordinator draw 01/14/2011 shortness of breath 01/05/2011 urinary [...] Item Item Code Result Date GFR CALC 5726317 GFR AA >60 ML/MIN 01/14/2011 GFR CALC 8761466 GFR NON -AA >60 ML/MIN 01/14/2011 COMPREHENSIVE METABOLIC 33905 AST 15 U/L 01/14/2011 COMPREHENSIVE METABOLIC 02628 ALT 17 IU/L 01/14/2011 COMPREHENSIVE METABOLIC 83505 BUN 12 MG/DL 01/14/2011 COMPREHENSIVE METABOLIC 48456 ALBUMIN 4.0 GM/DL 01/14/2011 COMPREHENSIVE METABOLIC 08213 CHLORIDE 101 MMOL/L 01/14/2011 COMPREHENSIVE METABOLIC 54605 BILI TOT 0.3 MG/DL 01/14/2011 COMPREHENSIVE METABOLIC 80469 ALK PHOS 53 U/L 01/14/2011 COMPREHENSIVE METABOLIC 75570 SODIUM 136 MMOL/L 01/14/2011 COMPREHENSIVE METABOLIC 42054 CREATININE 0.60 MG/DL 01/14/2011 COMPREHENSIVE METABOLIC 91735 CALCIUM 9.3 MG/DL 01/14/2011 COMPREHENSIVE METABOLIC 71865 POTASSIUM 4.1 MMOL/L 01/14/2011 COMPREHENSIVE METABOLIC 00317 PROT TOT 7.0 GM/DL 01/14/2011 COMPREHENSIVE METABOLIC 29415 Glucose 92 MG/DL 01/14/2011 COMPREHENSIVE METABOLIC 80540 BICARB 27 MMOL/L 01/14/2011 COMPREHENSIVE METABOLIC 26260 ANION GAP 8 MEQ/L 01/14/2011 ERYTHROCYTE SEDIMENTATION RATE 60968 ESR 39 MM/HR 01/05/2011 COMPREHENSIVE METABOLIC 73854 AST 16 U/L 01/05/2011 COMPREHENSIVE METABOLIC 61737 ALT 19 U/L 01/05/2011 COMPREHENSIVE METABOLIC 66477 BUN 15 MG/DL 01/05/2011 COMPREHENSIVE METABOLIC 55665 ALBUMIN 3.8 GM/DL 01/05/2011 COMPREHENSIVE METABOLIC 73413 CHLORIDE 101 MMOL/L 01/05/2011 COMPREHENSIVE METABOLIC 17366 BILI TOT 0.3 MG/DL 01/05/2011 COMPREHENSIVE METABOLIC 58485 ALK PHOS 55 U/L 01/05/2011 COMPREHENSIVE METABOLIC 71485 SODIUM 139 MMOL/L 01/05/2011 COMPREHENSIVE METABOLIC 79432 CREATININE 0.59 MG/DL 01/05/2011 COMPREHENSIVE METABOLIC 75159 CALCIUM 8.9 MG/DL 01/05/2011 COMPREHENSIVE METABOLIC 83208 POTASSIUM 3.8 MMOL/L 01/05/2011 COMPREHENSIVE METABOLIC 44689 PROT TOT 6.7 GM/DL 01/05/2011 COMPREHENSIVE METABOLIC 89341 Glucose 121 MG/DL 01/05/2011 COMPREHENSIVE METABOLIC 49583 BICARB 28 MMOL/L 01/05/2011 COMPREHENSIVE METABOLIC 21483 ANION GAP 10 MMOL/L 01/05/2011 GFR CALC 3111613 GFR AA >60 ML/MIN 01/05/2011 GFR CALC 0162527 GFR NON -AA >60 ML/MIN 01/05/2011 COMPLETE BLOOD COUNT 74519 WBC 8.7 10e9/L 01/05/2011 COMPLETE BLOOD COUNT 92027 RBC 4.78 10e12/L 1 COMPLETE BLOOD COUNT 89595 HGB 13.3 g/dL 01/05/2011 COMPLETE BLOOD COUNT 94022 HCT DET 40.6 % 01/05/2011 COMPLETE BLOOD COUNT 20545 MCV 84.9 fL 01/05/2011 COMPLETE BLOOD COUNT 67703 MCH 27.8 pg 01/05/2011 COMPLETE BLOOD COUNT 44090 MCHC 32.8 g/dL 01/05/2011 COMPLETE BLOOD COUNT 54186 PLT 273 10e9/L 01/05/2011 COMPLETE BLOOD COUNT 91049 MPV 9.8 fL 01/05/2011 COMPLETE BLOOD COUNT 19731 AMANDA % 65.9 % 01/05/2011 COMPLETE BLOOD COUNT 52002 LY % 24.5 % 01/05/2011 COMPLETE BLOOD COUNT 09616 MON % 6.9 % 01/05/2011 COMPLETE BLOOD COUNT 92214 EOS % 2.1 % 01/05/2011 COMPLETE BLOOD COUNT 06107 BASO % 0.6 % 01/05/2011 COMPLETE BLOOD COUNT 45548 RDW 14.7 % 01/05/2011 COMPLETE BLOOD COUNT 77488 ABS AMANDA 5.73 10e9/L 01/05/2011 COMPLETE BLOOD COUNT 88598 ABS LYMPH 2.13 10e9/L 01/05/2011 COMPLETE BLOOD COUNT 06706 ABS MONO 0.60 10e9/L 01/05/2011 COMPLETE BLOOD COUNT 73164 ABS EOS 0.18 10e9/L 01/05/2011 COMPLETE BLOOD COUNT 14603 ABS BASO 0.05 10e9/L 01/05/2011 COMPLETE BLOOD COUNT 71358 RDW-SD 44.7 fL 01/05/2011 NO UA [id number] NO UA CANCELED 07/08/2010 Review of Systems [...] Psychiatric No depression 02/06/2018 Endocrine No goiter 09/2017 Endocrine No hyperglycemia 02/06/2018 Endocrine No [...] 09/12/2016 Respiratory No wheezing 09/12/2016 Neurologic headache /1 Constitutional fever 03/2017 Musculoskeletal joint complaint 07/28/2016 [...] 1010/2009 Genitourinary/Nephrology urinary urgency 03/09/2010 Neurologic headache 0807/2009 Gastrointestinal vomiting 01/04/2010 Cardiovascular hypertension 01/04/2010 Neurologic [...] time 11/23/2009 None Procedures Procedure Codes Date INITIAL PREVENTIVE EXAM CPT-4: G0402 11/21/2018 URINALYSIS NONAUTO W /O SCOPE CPT-4: 64722 11/01/2018 URINE CULTURE/ COLON Y COUNT CPT-4: 12845 11/01/2018 URINE CULTURE/ COLON Y COUNT CPT-4: 42175 06/13/2018 URINALYSIS NONAUTO W /O SCOPE CPT-4: 18135 05/31/2018 URINE CULTURE/ COLON Y COUNT CPT-4: 65544 05/31/2018 IIV4 VACCINE 3 YRS+ IM AND UP CPT-4: 47509 03/22/2018 IMMUNIZATION ADMIN CPT- 4: 44257 03/22/2018 TDAP VACCINE 7 YRS/> IM CPT-4: 83287 12/28/2017 IMMUNIZATION ADMIN CPT- 4: 99893 12/28/2017 SHINGRIX HZV VACC RE COMBINANT IM CPT-4: 77643 10/04/2017 IMMUNIZATION ADMIN CPT- 4: 92132 10/04/2017 IIV4 VACCINE 3 YRS+ IM AND UP CPT-4: 45024 03/28/2017 IMMUNIZATION ADMIN CPT- 4: 89663 03/28/2017 INFLUENZA ASSAY W/OPTIC CPT-4: 08905 09/12/2016 FLU VACCINE 3 YRS & > IM UP 64 CPT-4: 91289 04/22/2016 IMMUNIZATION ADMIN CPT- 4: 06449 04/22/2016 OCCULT BLOOD FECES CPT- 4: 19669 01/04/2016 THER/PROPH/DIAG INJ SC/IM CPT-4: 36746 07/20/2015 PROMETHAZINE HCL INJ ECTION CPT-4: J2550 07/20/2015 FLU VACCINE 3 YRS & > IM UP 64 CPT-4: 64637 03/09/2015 IMMUNIZATION ADMIN CPT- 4: 08408 03/09/2015 URINALYSIS NONAUTO W /O SCOPE CPT-4: 26000 07/10/2014 URINE CULTURE/ COLON Y COUNT CPT-4: 70665 07/10/2014 URINE CULTURE/ COLON Y COUNT CPT-4: 90873 07/14/2011 URINALYSIS NONAUTO W /O SCOPE CPT-4: 46126 07/14/2011 FLU VACCINE 3 YRS & > IM UP 64 CPT-4: 93662 06/28/2011 IMMUNIZATION ADMIN CPT- 4: 31606 06/28/2011 URINALYSIS NONAUTO W /O SCOPE CPT-4: 77637 03/23/2011 URINE CULTURE/ COLON Y COUNT CPT-4: 49770 03/23/2011 ROUTINE VENIPUNCTURE CPT-4: 21487 01/14/2011 COMPREHEN METABOLIC PANEL CPT-4: 60057 01/14/2011 ROUTINE VENIPUNCTURE CPT-4: 38789 01/05/2011 COMPLETE CBC W/AUTO DIFF WBC CPT-4: 24901 01/05/2011 RBC SED RATE AUTOMATED CPT-4: 43052 01/05/2011 COMPREHEN METABOLIC PANEL CPT-4: 27981 01/05/2011 URINALYSIS NONAUTO W /O SCOPE CPT-4: 02174 11/16/2010 URINE CULTURE/ COLON Y COUNT CPT-4: 76661 11/16/2010 DRAIN/INJECT JOINT/B URSA CPT-4: 14092 11/04/2010 TRIAMCINOLONE ACET I [place] NOS CPT-4: J3301 11/04/2010 METHYLPREDNISOLONE 8 0 MG INJ CPT-4: J1040 11/04/2010 URINALYSIS NONAUTO W /O SCOPE CPT-4: 92251 07/05/2010 URINE CULTURE/ COLON Y COUNT CPT-4: 21992 07/05/2010 URINALYSIS NONAUTO W /O SCOPE CPT-4: 57956 06/28/2010 URINE CULTURE/ COLON Y COUNT CPT-4: 43353 06/28/2010 URINALYSIS NONAUTO W /O SCOPE CPT-4: 28060 06/14/2010 URINE CULTURE/ COLON Y COUNT CPT-4: 16605 06/14/2010 URINE CULTURE/ COLON Y COUNT CPT-4: 70889 04/19/2010 OCCULT BLOOD FECES CPT- 4: 81029 04/12/2010 URINALYSIS NONAUTO W /O SCOPE CPT-4: 43074 04/08/2010 URINE CULTURE/ COLON Y COUNT CPT-4: 91020 04/08/2010 ASSAY, GLUCOSE, BLOO D QUANT CPT-4: 10616 03/09/2010 URINALYSIS NONAUTO W /O SCOPE CPT-4: 76658 03/09/2010 FLU VACCINE 3 YRS & > IM UP 64 CPT-4: 73013 03/09/2010 IMMUNIZATION ADMIN CPT- 4: 38446 03/09/2010 URINALYSIS NONAUTO W /O SCOPE CPT-4: 93336 09/29/2009 URINALYSIS NONAUTO W /O SCOPE CPT-4: 97631 08/12/2009 Vital Signs Date Vital 01/09/2019 Heart Rate 1: 100 bpm Respiratory Rate: 20 bpm SpO2: 98% Temperature: 36.8 (C ) / 98.2 (F) Weight: 162 lbs 11/21/2018 Blood Pressure 1: 130/70 Code: 8480-6 BMI: 29.6 Code: 37958-8 Heart Rate 1: 76 bpm Height: 5'2" [...] 1: 126/62 Code: 8480-6 BMI: 29.6 Code: 03567-9 Heart Rate 1: 88 bpm Height: 5'3" Respiratory Rate: 20 bpm Temperature: 36.8 (C ) / 98.3 (F) Weight: 167 lbs 05/31/2018 Blood Pressure 1: 140/80 Code: 8480-6 Heart Rate 1: 74 bpm Respiratory Rate: 16 bpm SpO2: 97% Temperature: 36.3 (C ) / 97.3 (F) Weight: 165 lbs 02/06/2018 Blood Pressure 1: 124/78 Code: 8480-6 BMI: 29.8 Code: 66077-1 Heart Rate 1: 84 bpm Height: 5'3" Respiratory Rate: 20 bpm SpO2: 97% Temperature: 36.6 (C ) / 97.8 (F) Weight: 168 lbs 12/18/2017 Blood Pressure 1: 116/78 Code: 8480-6 BMI: 29.6 Code: 53562-6 Heart Rate 1: 88 bpm Height: 5'3" Respiratory Rate: 20 bpm Temperature: 36.6 (C ) / 97.9 (F) Weight: 167 lbs 12/11/2017 Blood Pressure 1: 122/76 Code: 8480-6 Heart Rate 1: 78 bpm 09/11/2017 Blood Pressure 1: 126/82 Code: 8480-6 BMI: 29.1 Code: 13302-8 Heart Rate 1: 68 bpm Height: 5'3" Respiratory Rate: 20 bpm SpO2: 96% Temperature: 36.6 (C ) / 97.9 (F) Weight: 164 lbs 03/28/2017 Blood Pressure 1: 114/64 Code: 8480-6 BMI: 27.8 Code: 57050-3 Heart Rate 1: 76 bpm Height: 5'3" Respiratory Rate: 20 bpm SpO2: 98% Temperature: 36.4 (C ) / 97.6 (F) Weight: 157 lbs 09/12/2016 Blood Pressure 1: 126/70 Code: 8480-6 BMI: 29.9 Code: 29443-4 Heart Rate 1: 92 bpm Height: 5'3" Respiratory Rate: 20 bpm SpO2: 97% Temperature: 37.0 (C ) / 98.6 (F) Weight: 168 lbs 9 oz 07/28/2016 Blood Pressure 1: 128/74 Code: 8480-6 Heart Rate 1: 92 bpm Respiratory Rate: 24 bpm SpO2: 96% Temperature: 36.4 (C ) / 97.6 (F) Weight: 168 lbs 04/26/2016 Blood Pressure 1: 116/74 Code: 8480-6 BMI: 29.9 Code: 41482-3 Heart Rate 1: 92 bpm Height: 5'3" Respiratory Rate: 20 bpm Temperature: 36.9 (C ) / 98.4 (F) Weight: 169 lbs 12/09/2015 Blood Pressure 1: 116/72 Code: 8480-6 BMI: 31.7 Code: 61254-4 Heart Rate 1: 80 bpm Height: 5'3" Respiratory Rate: 20 bpm Temperature: 36.6 (C ) / 97.9 (F) Weight: 179 lbs 09/10/2015 Blood Pressure 1: 122/78 Code: 8480-6 BMI: 32.2 Code: 34286-5 Heart Rate 1: 88 bpm Height: 5'3" Respiratory Rate: 20 bpm Temperature: 37.3 (C ) / 99.1 (F) Weight: 182 lbs 04/23/2015 Blood Pressure 1: 126/70 Code: 8480-6 BMI: 31.2 Code: 49865-3 Heart Rate 1: 92 bpm Height: 5'3" Respiratory Rate: 20 bpm Temperature: 36.8 (C ) / 98.2 (F) Weight: 176 lbs 03/24/2015 Blood Pressure 1: 126/78 Code: 8480-6 BMI: 31.2 Code: 27721-3 Heart Rate 1: 80 bpm Height: 5'3" Respiratory Rate: 22 bpm Temperature: 36.1 (C ) / 96.9 (F) Weight: 176 lbs 03/05/2015 Blood Pressure 1: 132/80 Code: 8480-6 BMI: 31.5 Code: 57908-3 Heart Rate 1: 92 bpm Height: 5'2" Respiratory Rate: 20 bpm Temperature: 36.4 (C ) / 97.6 (F) Weight: 175 lbs 02/19/2015 Blood Pressure 1: 134/80 Code: 8480-6 BMI: 31.5 Code: 96642-1 Heart Rate 1: 88 bpm Height: 5'2" Respiratory Rate: 20 bpm Temperature: 36.7 (C ) / 98.0 (F) Weight: 175 lbs 12/25/2014 Blood Pressure 1: 122/80 Code: 8480-6 BMI: 31.0 Code: 24444-2 Heart Rate 1: 88 bpm Height: 5'2" Respiratory Rate: 20 bpm Temperature: 36.6 (C ) / 97.8 (F) Weight: 172 lbs 11/26/2014 Blood Pressure 1: 116/68 Code: 8480-6 BMI: 30.2 Code: 78682-9 Heart Rate 1: 76 bpm Height: 5'2" Respiratory Rate: 20 bpm Temperature: 36.5 (C ) / 97.7 (F) Weight: 168 lbs 11/04/2014 Blood Pressure 1: 116/64 Code: 8480-6 BMI: 30.8 Code: 87746-3 Heart Rate 1: 92 bpm Height: 5'2" Respiratory Rate: 20 bpm Temperature: 36.7 (C ) / 98.1 (F) Weight: 171 lbs 09/01/2014 Blood Pressure 1: 130/82 Code: 8480-6 BMI: 30.6 Code: 38882-5 Heart Rate 1: 92 bpm Height: 5'2" Respiratory Rate: 20 bpm Temperature: 36.9 (C ) / 98.4 (F) Weight: 170 lbs 06/02/2014 Blood Pressure 1: 126/80 Code: 8480-6 BMI: 30.2 Code: 76548-0 Heart Rate 1: 88 bpm Height: 5'2" Respiratory Rate: 20 bpm Temperature: 36.7 (C ) / 98.1 (F) Weight: 168 lbs 05/26/2014 Blood Pressure 1: 132/78 Code: 8480-6 Heart Rate 1: 74 bpm 04/08/2014 Blood Pressure 1: 156/94 Code: 8480-6 BMI: 30.2 Code: 79713-2 Heart Rate 1: 96 bpm Height: 5'2" Respiratory Rate: 20 bpm Temperature: 37.1 (C ) / 98.7 (F) Weight: 168 lbs 03/05/2014 Blood Pressure 1: 144/86 Code: 8480-6 BMI: 29.9 Code: 81498-7 Heart Rate 1: 100 bpm Height: 5'2" Respiratory Rate: 20 bpm Temperature: 36.7 (C ) / 98.1 (F) Weight: 166 lbs 07/29/2013 Blood Pressure 1: 124/80 Code: 8480-6 Heart Rate 1: 92 bpm Respiratory Rate: 20 bpm Temperature: 36.2 (C) / 97.2 (F) Weight: 167 lbs 03/20/2013 Blood Pressure 1: 116/84 Code: 8480-6 BMI: 30.8 Code: 45002-6 Heart Rate 1: 96 bpm Height: 5'3" Respiratory Rate: 20 bpm Temperature: 36.6 (C ) / 97.8 (F) Weight: 174 lbs 02/12/2013 Blood Pressure 1: 122/80 Code: 8480-6 BMI: 30.5 Code: 42653-8 Heart Rate 1: 112 bpm Height: 5'3" Respiratory Rate: 20 bpm Temperature: 36.9 (C ) / 98.4 (F) Weight: 172 lbs 11/05/2012 BMI: 31.2 Code: 97065-0 Height: 5'3" Weight: 176 lbs 10/04/2012 Heart Rate 1: 84 bpm Height: 5'3" Respiratory Rate: 20 bpm Temperature: 36.8 (C ) / 98.3 (F) Weight: 09/24/2012 Blood Pressure 1: 122/88 Code: 8480-6 BMI: 30.8 Code: 41996-3 Heart Rate 1: 80 bpm Height: 5'3" Respiratory Rate: 20 bpm Temperature: 36.8 (C ) / 98.2 (F) Weight: 174 lbs 05/10/2012 Blood Pressure 1: 124/68 Code: 8480-6 BMI: 30.1 Code: 75007-8 Heart Rate 1: 64 bpm Height: 5'3" Temperature: 36.6 (C ) / 97.8 (F) Weight: 170 lbs 03/07/2012 Blood Pressure 1: 132/78 Code: 8480-6 BMI: 29.2 Code: 24296-3 Heart Rate 1: 92 bpm Height: 5'3" Respiratory Rate: 20 bpm Temperature: 36.7 (C ) / 98.1 (F) Weight: 165 lbs 02/01/2012 Blood Pressure 1: 116/78 Code: 8480-6 BMI: 29.1 Code: 37331-4 Heart Rate 1: 84 bpm Height: 5'3" Respiratory Rate: 20 bpm Temperature: 36.8 (C ) / 98.2 (F) Weight: 164 lbs 12/20/2011 Blood Pressure 1: 128/80 Code: 8480-6 BMI: 29.1 Code: 33620-6 Heart Rate 1: 88 bpm Height: 5'3" Respiratory Rate: 20 bpm Temperature: 36.4 (C ) / 97.6 (F) Weight: 164 lbs 11/22/2011 Blood Pressure 1: 104/60 Code: 8480-6 BMI: 28.5 Code: 94186-5 Heart Rate 1: 78 bpm Height: 5'3" Temperature: 36.6 (C ) / 97.9 (F) Weight: 161 lbs 07/11/2011 Blood Pressure 1: 118/72 Code: 8480-6 BMI: 30.6 Code: 14480-8 Heart Rate 1: 92 bpm Height: 5'3" Respiratory Rate: 20 bpm Temperature: 36.8 (C ) / 98.2 (F) Weight: 173 lbs 07/06/2011 Blood Pressure 1: 126/80 Code: 8480-6 BMI: 31.0 Code: 53016-0 Heart Rate 1: 88 bpm Height: 5'3" Respiratory Rate: 20 bpm Temperature: 36.7 (C ) / 98.1 (F) Weight: 175 lbs 05/26/2011 Blood Pressure 1: 100/78 Code: 8480-6 BMI: 31.0 Code: 44690-8 Heart Rate 1: 74 bpm Height: 5'3" Temperature: 36.4 (C ) / 97.6 (F) Weight: 175 lbs 05/16/2011 Blood Pressure 1: 116/80 Code: 8480-6 BMI: 31.0 Code: 61760-9 Heart Rate 1: 88 bpm Height: 5'3" Respiratory Rate: 20 bpm Temperature: 36.8 (C ) / 98.2 (F) Weight: 175 lbs 05/05/2011 Blood Pressure 1: 126/80 Code: 8480-6 BMI: 30.6 Code: 52180-5 Heart Rate 1: 96 bpm Height: 5'3" Respiratory Rate: 20 bpm Temperature: 36.4 (C ) / 97.6 (F) Weight: 173 lbs 04/05/2011 Blood Pressure 1: 144/90 Code: 8480-6 BMI: 30.1 Code: 96227-4 Heart Rate 1: 92 bpm Height: 5'3" Respiratory Rate: 20 bpm Temperature: 36.6 (C ) / 97.8 (F) Weight: 170 lbs 03/02/2011 Blood Pressure 1: 136/94 Code: 8480-6 Heart Rate 1: 92 bpm Temperature: 36.6 (C) / 97.8 (F) Weight: 171 lbs 01/05/2011 Blood Pressure 1: 132/86 Code: 8480-6 BMI: 30.6 Code: 89176-0 Heart Rate 1: 98 bpm Height: 5'3" [...] 1: 122/68 Code: 8480-6 BMI: 29.8 Code: 59372-6 Height: 5'3" Temperature: 36.3 (C ) / [...] 1: 142/90 Code: 8480-6 BMI: 30.5 Code: 13438-7 Heart Rate 1: 96 bpm Height: 5'3" Temperature: 36.1 (C ) / 97.0 (F) Weight: 172 lbs Functional Status No Functional Status data History of Present Illness Symptom Name Status Resu lt Effective Date Notes Location in the LLQ 01/09/2019 None Quality [...] seat belt use 11/21/2018 None Lifestyle satisfactory work/custodial experience 11/21/2018 None Lifestyle normal sleep patterns [...] Guidance hormon e replacement therapy 11/21/2018 None Breast/Top Icer Complaints urinary incontinence 11/21/2018 stress Quality chronic [...] Quality discomfort 08/06/2018 None Location in the lens hardener ior area 08/06/2018 None Quality stiffness 08/06/2018 [...] 02/06/2018 Current A1c is 5.5 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 due to side effect [...] Encounters Encounter Performer Loca tion Codes Date ([id number]) OFFICE/OUTPA TIENT VISIT EST Diagnosis: Left lower quadrant pain[ICD10: R10.32] Yaima TAYLOR Rapportive CPT-4: 90566 01/09/2019 ([id number]) NURSE/OUTPAT IENT VISIT EST Diagnosis: Hematuria, unspecified[ICD10: R31.9] Yaima TAYLOR Rapportive CPT-4: 01207 11/01/2018 ([id number]) OFFICE/OUTPA TIENT VISIT EST Diagnosis: Hypothyroidism, unspecified[ICD10: E03.9] Diagnosis: Other fatigue[ICD10: R53.83] Diagnosis: Other cervical disc degeneration, unspecified cervical region[ICD10: M50.30] Yaima JOHNSON Rapportive CPT-4: 75453 10/04/2018 ([id number]) OFFICE/OUTPA TIENT VISIT EST Diagnosis: Hypothyroidism, unspecified[ICD10: E03.9] Diagnosis: Impaired fasting glucose[ICD10: R73.01] Diagnosis: Cervicalgia[ICD10: M54.2] Yaima JOHNSON [facility] CPT-4: 97705 08/06/2018 ([id number]) OFFICE/OUTPA TIENT VISIT EST Diagnosis: Radiculopathy, lumbosacral region[ICD10: M54.17] Diagnosis: Abrasion, left lower leg, sequela[ICD10: S80.812S] Yaima TAYLOR [facility] CPT-4: 55545 06/21/2018 ([id number]) NURSE/OUTPAT IENT VISIT EST Diagnosis: Urinary tract infection, site not specified[ICD10: N39.0] Yaima JOHNSON [facility] CPT-4: 61312 06/13/2018 ([id number]) OFFICE/OUTPA TIENT VISIT EST Diagnosis: Other dorsalgia[ICD10: M54.89] Jane JOHNSON [facility] CPT-4: 60675 05/31/2018 ([id number]) NURSE/OUTPAT IENT VISIT EST Diagnosis: FLU VACCINE[ICD10: Z23] Yaima JOHNSON [facility] CPT-4: 64364 03/22/2018 ([id number]) OFFICE/OUTPA TIENT VISIT EST Diagnosis: Hypothyroidism, unspecified[ICD10: E03.9] Diagnosis: Essential (primary) hypertension[ICD10: I10] Diagnosis: Other seasonal allergic rhinitis[ICD10: J30.2] Yaima TAYLOR [facility] CPT-4: 03815 02/06/2018 ([id number]) NURSE/OUTPAT IENT VISIT EST Diagnosis: Laceration of blood vessel of right index finger, initial encounter[ICD10: S65.510A] Diagnosis: VACCINE FOR TDAP[ICD10: Z23] Yaima JOHNSON [facility] CPT-4: 84875 12/28/2017 ([id number]) OFFICE/OUTPA TIENT VISIT EST Diagnosis: Tinnitus, bilateral[ICD10: H93.13] Yaima TAYLOR [facility] CPT-4: 54959 12/18/2017 ([id number]) NURSE/OUTPAT IENT VISIT EST Diagnosis: VACCIN FOR DISEASE NEC (HPV or Zostavax)[ICD10: Z23] [facility] CPT-4: 57177 10/04/2017 OFFICE/OUTPATIENT SIT EST Diagnosis: Hypothyroidism, unspecified[ICD10: E03.9] Diagnosis: Essential (primary) hypertension[ICD10: I10] Diagnosis: Gastro-esophageal reflux disease without esophagitis[ICD10: K21.9] Diagnosis: Pain in right knee[ICD10: M25.561] Diagnosis: Hyperglycemia, unspecified[ICD10: R73.9] Yaima Elizabeth MCCORMACKLINE Jw [facility] CPT-4: 21969 09/11/2017 ([id number]) OFFICE/OUTPA TIENT VISIT EST Diagnosis: Cervicalgia[ICD10: M54.2] Diagnosis: Hypothyroidism, unspecified[ICD10: E03.9] Diagnosis: Essential (primary) hypertension[ICD10: I10] Diagnosis: Irritant contact dermatitis, unspecified cause[ICD10: L24.9] Diagnosis: FLU VACCINE[ICD10: Z23] Yaima Elizabeth YAIMA Jw [facility] CPT-4: 63471 03/28/2017 ([id number]) OFFICE/OUTPA TIENT VISIT EST Diagnosis: Influenza due to identified novel influenza A virus with other manifestations[ICD10: J09.X9] Yaima Elizabeth YAIMA Jw [facility] CPT-4: 70625 09/12/2016 ([id number]) OFFICE/OUTPA TIENT VISIT EST Diagnosis: Dermatitis, unspecified[ICD10: L30.9] Diagnosis: Pain in right knee[ICD10: M25.561] Yaima Josuejuliannicole YAIMA Jw [facility] CPT-4: 35221 07/28/2016 ([id number]) OFFICE/OUTPA TIENT VISIT EST Diagnosis: Incisional hernia without obstruction or gangrene[ICD10: K43.2] Diagnosis: Gastro-esophageal reflux disease without esophagitis[ICD10: K21.9] Diagnosis: Radiculopathy, lumbosacral region[ICD10: M54.17] Yaima TAYLOR DO [facility] CPT-4: 59790 04/26/2016 ([id number]) OFFICE/OUTPA TIENT VISIT EST Diagnosis: FLU VACCINE[ICD10: Z23] Yaima JOHNSON DO [facility] CPT-4: 72114 04/22/2016 ([id number]) OFFICE/OUTPA TIENT VISIT EST Diagnosis: Other fecal abnormalities[ICD10: R19.5] Yaima TAYLOR DO [facility] CPT-4: 49196 01/04/2016 ([id number]) OFFICE/OUTPA TIENT VISIT EST 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] Diagnosis: Other specified diseases of liver[ICD10: K76.89] Diagnosis: Irritant contact dermatitis due to detergents[ICD10: L24.0] Yaima JOHNSON DO [facility] CPT-4: 19268 12/09/2015 ([id number]) OFFICE/OUTPA TIENT VISIT EST Diagnosis: Pain in thoracic spine[ICD10: M54.6] Diagnosis: Radiculopathy, lumbosacral region[ICD10: M54.17] Diagnosis: Precordial pain[ICD10: R07.2] Yaima JOHNSON DO [facility] CPT-4: 90472 09/10/2015 ([id number]) OFFICE/OUTPA TIENT VISIT EST Diagnosis: Nausea[ICD10: R11.0] Yaima JOHNSON DO [facility] CPT-4: 12570 07/20/2015 ([id number]) OFFICE/OUTPA TIENT VISIT EST Diagnosis: Pain in left elbow[ICD10: M25.522] Diagnosis: Contusion of left lower leg, sequela[ICD10: S80.12XS] Diagnosis: Pleurodynia[ICD10: R07.81] Yaima JOHNSON DO [facility] CPT-4: 20542 04/23/2015 ([id number]) OFFICE/OUTPA TIENT VISIT EST Diagnosis: Unspecified abdominal pain[ICD10: R10.9] Diagnosis: Ventral hernia without obstruction or gangrene[ICD10: K43.9] Diagnosis: Constipation, unspecified[ICD10: K59.00] Yaima TAYLOR [facility] CPT-4: 85407 03/24/2015 ([id number]) OFFICE/OUTPA TIENT VISIT EST Diagnosis: FLU VACCINE[ICD10: Z23] Yaima JOHNSON DO [facility] CPT-4: 12801 03/09/2015 ([id number]) OFFICE/OUTPA TIENT VISIT EST 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] Diagnosis: Generalized abdominal pain[ICD10: R10.84] Yaima TAYLOR [facility] CPT-4: 41969 03/05/2015 OFFICE/OUTPATIENT SIT EST Diagnosis: ABDOMINAL PAIN[ICD9: 789.00] Diagnosis: HYPOTHYROIDISM[ICD9: 244.9] Diagnosis: HYPERTENSION[ICD9: 401.9] Diagnosis: DIVERTICULITIS, COLONIC[ICD9: 562.11] Diagnosis: DISTURBANCE OF SKIN SENSATION (Paresthesia)[ICD9: 782.0] Yaima JOHNSON [facility] CPT-4: 88178 02/19/2015 ([id number]) OFFICE/OUTPA TIENT VISIT EST Diagnosis: HYPOTHYROIDISM[ICD9: 244.9] Diagnosis: Diaphoresis[ICD9: 780.8] Yaima JOHNSON [facility] CPT-4: 23208 12/25/2014 ([id number]) OFFICE/OUTPA TIENT VISIT EST Diagnosis: ABDOMINAL PAIN[ICD9: 789.00] Diagnosis: PAIN, LOWER BACK[ICD9: 724.2] Diagnosis: Contusion of leg[ICD9: 924.5] Yaima JOHNSON [facility] CPT-4: 60113 11/26/2014 ([id number]) OFFICE/OUTPA TIENT VISIT EST Diagnosis: IBS[ICD9: 564.1] Diagnosis: GERD[ICD9: 530.81] Yaima JOHNSON [facility] CPT-4: 71973 11/04/2014 ([id number]) OFFICE/OUTPA TIENT VISIT EST Diagnosis: Headache[ICD9: 784.0] Diagnosis: Leg pain[ICD9: 729.5] Yaima JOHNSON DO [facility] CPT-4: 60802 09/01/2014 ([id number]) OFFICE/OUTPA TIENT VISIT EST Diagnosis: DYSURIA[ICD9: 788.1] Yaima JOHNSON DO [facility] CPT-4: 39241 07/10/2014 OFFICE/OUTPATIENT SIT EST Diagnosis: VAGINITIS[ICD9: 623.5] Diagnosis: SINUSITIS, ACUTE[ICD9: 461.9] [facility]NS[facility] [facility] CPT[facility] 39416 06/02/2014 ([id number]) OFFICE/OUTPA TIENT VISIT EST Diagnosis: HYPERTENSION[ICD9: 401.9] Diagnosis: ALLERGIC RHINITIS[ICD9: 477.9] Diagnosis: PAIN, LOWER BACK[ICD9: 724.2] Yaima JOHNSON [facility] CPT-4: 07766 04/08/2014 ([id number]) OFFICE/OUTPA TIENT VISIT EST Diagnosis: COUGH[ICD10: R05] Diagnosis: Thoracic back pain[ICD9: 724.1] Yaima JOHNSON [facility] CPT-4: 56932 03/05/2014 ([id number]) OFFICE/OUTPA TIENT VISIT EST Diagnosis: SINUSITIS, ACUTE[ICD9: 461.9] Diagnosis: BRONCHITIS, ACUTE[ICD9: 466.0] Yaima JOHNSON [facility] CPT-4: 11267 07/29/2013 ([id number]) OFFICE/OUTPA TIENT VISIT EST Diagnosis: ABDOMINAL PAIN[ICD9: 789.00] Diagnosis: Constipation[ICD9: 564.00] Diagnosis: DIVERTICULITIS, COLONIC[ICD9: 562.11] Yaima TAYLOR [facility] CPT-4: 07574 03/20/2013 ([id number]) OFFICE/OUTPA TIENT VISIT EST Diagnosis: Plantar fasciitis[ICD9: 728.71] Diagnosis: ALLERGIC RHINITIS[ICD9: 477.9] Yaima JOHNSON [facility] CPT-4: 11607 02/12/2013 OFFICE/OUTPATIENT SIT EST Diagnosis: Skin lesion[ICD9: 709.9] Diagnosis: Lumbar back pain[ICD9: 724.2] Diagnosis: Muscle spasm[ICD9: 728.85] Diagnosis: Hypothyroid[ICD9: 244.9] Yaima JOHNSON DO [facility] CPT-4: 70129 11/05/2012 ([id number]) OFFICE/OUTPA TIENT VISIT EST Diagnosis: Cervicalgia[ICD9: 723.1] Diagnosis: Thoracic back pain[ICD9: 724.1] Diagnosis: SPASM OF MUSCLE[ICD9: 728.85] Yaima JOHNSON DO [facility] CPT-4: 27197 10/04/2012 ([id number]) OFFICE/OUTPA TIENT VISIT EST Diagnosis: MALAISE AND FATIGUE[ICD9: 780.79] Diagnosis: HYPOTHYROIDISM[ICD9: 244.9] Diagnosis: HYPERTENSION[ICD9: 401.9] Yaima JOHNSON [facility] CPT-4: 16812 09/24/2012 ([id number]) OFFICE/OUTPA TIENT VISIT EST Diagnosis: Lateral epicondylitis[ICD9: 726.32] Diagnosis: Wrist pain[ICD9: 719.43] Diagnosis: Numbness and tingling in right hand[ICD9: 782.0] Yaima TAYLOR [facility] CPT-4: 04293 05/10/2012 OFFICE/OUTPATIENT SIT EST Diagnosis: MALAISE AND FATIGUE[ICD9: 780.79] Diagnosis: HYPOTHYROIDISM[ICD9: 244.9] Diagnosis: Enthesopathy of the wrist and carpus[ICD9: 726.4] Diagnosis: Foot pain[ICD9: 729.5] Diagnosis: DYSPHAGIA NEC[ICD9: 787.29] Yaima JOHNSON [facility] CPT-4: 34723 03/07/2012 ([id number]) OFFICE/OUTPA TIENT VISIT EST Diagnosis: HYPOTHYROIDISM[ICD9: 244.9] Yaima JOHNSON [facility] CPT-4: 14191 02/01/2012 ([id number]) OFFICE/OUTPA TIENT VISIT EST Diagnosis: MALAISE AND FATIGUE[ICD9: 780.79] Diagnosis: HYPOTHYROIDISM[ICD9: 244.9] Yaima JOHNSON [facility] CPT-4: 77617 12/20/2011 OFFICE/OUTPATIENT SIT EST Diagnosis: INSECT BITE HIP/LEG[ICD9: 916.4] Lizzette JOHNSON [facility] CPT-4: 97069 11/22/2011 OFFICE/OUTPATIENT SIT EST Diagnosis: HEMATURIA NOS[ICD9: 599.70] Yaima JOHNSON [facility] CPT-4: 99299 07/14/2011 OFFICE/OUTPATIENT SIT EST Diagnosis: URINARY TRACT INFECTION[ICD9: 599.0] Diagnosis: DIVERTICULITIS, COLONIC[ICD9: 562.11] Yaima TAYLOR [facility] CPT-4: 69036 07/11/2011 OFFICE/OUTPATIENT SIT EST Diagnosis: TMJ arthritis[ICD9: 524.69] Diagnosis: MIGRAINE NOS/NOT INTRCBL[ICD9: 346.90] Diagnosis: Rectal fissure[ICD9: 565.0] Yaima JOHNSON [facility] CPT-4: 38809 07/06/2011 OFFICE/OUTPATIENT SIT EST Diagnosis: SPASM OF MUSCLE[ICD9: 728.85] Diagnosis: PAIN, LOWER BACK[ICD9: 724.2] Yaima JOHNSON [facility] CPT-4: 07125 05/26/2011 OFFICE/OUTPATIENT SIT EST Diagnosis: PAIN, LOWER BACK[ICD9: 724.2] Diagnosis: SPASM OF MUSCLE[ICD9: 728.85] Yaima JOHNSON [facility] CPT-4: 50484 05/16/2011 OFFICE/OUTPATIENT SIT EST Diagnosis: PAIN, LOWER BACK[ICD9: 724.2] Diagnosis: ENTHESOPATHY OF HIP[ICD9: 726.5] Diagnosis: Onychomycosis[ICD9: 110.1] Yaima [facility] CPT-4: 95481 05/05/2011 OFFICE/OUTPATIENT SIT EST Diagnosis: Diverticulitis[ICD9: 562.11] Yaima JOHNSON DO [facility] CPT-4: 98407 04/05/2011 OFFICE/OUTPATIENT SIT EST Diagnosis: CHEST PAIN NOS[ICD9: 786.50] Diagnosis: PALPITATIONS[ICD9: 785.1] Diagnosis: Pulmonary arterial hypertension[ICD9: 416.8] Yaima MCWILLIAMS NDER [facility] CPT-4: 27367 03/02/2011 OFFICE/OUTPATIENT SIT EST Yaima SAMUELS SRobin [facility] CPT-4: 92106 01/05/2011 ([id number]) OFFICE/OUTPA TIENT VISIT EST Yaima SAMUELS [facility] CPT-4: 34040 11/16/2010 ([id number]) OFFICE/OUTPA TIENT VISIT EST Yaima SAMUELS [facility] CPT-4: 11699 11/04/2010 ([id number]) OFFICE/OUTPA TIENT VISIT EST Yaima SAMUELS [facility] CPT-4: 74465 08/05/2010 ([id number]) OFFICE/OUTPA TIENT VISIT EST Yaima SAMUELS [facility] CPT-4: 01894 07/23/2010 ([id number]) OFFICE/OUTPA TIENT VISIT, EST Yaima SAMUELS [facility] CPT-4: 31016 06/07/2010 ([id number]) OFFICE/OUTPA TIENT VISIT, EST Yaima SAMUELS [facility] CPT-4: 33534 05/12/2010 ([id number]) OFFICE/OUTPA TIENT VISIT, EST [facility] CPT-4: 19884 04/27/2010 ([id number]) OFFICE/OUTPA TIENT VISIT, EST [facility] CPT-4: 92777 04/19/2010 ([id number]) OFFICE/OUTPA TIENT VISIT, EST Yaima Escalera [facility] CPT-4: 21682 03/09/2010 ([id number]) OFFICE/OUTPA TIENT VISIT, EST Yaima [facility] CPT-4: 24495 01/04/2010 ([id number]) OFFICE/OUTPA TIENT VISIT, EST [facility] CPT-4: 61703 12/14/2009 ([id number]) OFFICE/OUTPA TIENT VISIT, EST [facility] CPT-4: 20983 11/23/2009 Plan of Care Planned Activity Notes C odes Status Date Visit Diagnosis Plan: Left lower quadrant pain Discussion: Appears to have a hernia so did discuss surgical evaluation ICD-9 : 789.04 ICD-10 : R10.32 01/09/2019 Visit Diagnosis Plan: Encounter for [facility] without abnormal findings [...] : Z00.00 11/21/2018 App[facility]ment: [facility] [phone] [facility] [facility] 11/21/2018 Care Plan: Referral Order SNOMED-CT : 521895902 Pending 11/21/2018 Appointment: [facility] Johnson [facility]el[facility] [phone] [facility] [facility] 11/01/2018 Visit Diagnosis Plan: Other cervical dis c degeneration, unspecified cervical region Discussion: MRI results discussed fwup w [facility] Dr. Johnson ICD-9 : 722.4 ICD-10 : M50.30 10/04/2018 Visit Diagnosis Plan: Hypothyroidism, unspecified Discussion: Restart synthroid at 50mcg daily and recheck lab in 3mos ICD-9 : 244.9 ICD-10 : E03.9 10/04/2018 Appointment: [facility] Johnson [facility]el[facility] [phone] [facility] [place] FOLLOW [facility] 10/04/2018 Care Plan: Referral Order SNOMED-CT : [id number] Pending 10/04/2018 Visit Diagnosis Plan: Hypothyroidism, unspecified [...] M54.2 08/06/2018 Appointment: [facility] Johnson [facility]Ptel[facility] [phone] [facility] Schedule medicare annual! FOLLOW UP 08/06/2018 Patient Education: levothyroxine- [employer] Coupon [id number] [email or web address] Completed 08/06/2018 Visit Diagnosis Plan: Radiculopathy, lumbosacral regio n Discussion: Daily stretches and see if improves--low dose gabapentin trial q HS if does not improve Lab and fwup in 3mos ICD-9 : 724.4 ICD-10 : M54.17 06/21/2018 Visit Diagnosis Plan: Abrasion, left lower leg, sequel a Discussion: Vitamin E topically for scarring/dryness ICD-9 : 906.2 ICD-10 : S80.812S 06/21/2018 Appointment: Yaima Johnson WPtel: [address] [place] [address] ACUTE ILLNESS 06/21/2018 Appointment: Yaima Johnson WPtel: [address] [place] [address] UA 06/13/2018 Visit Diagnosis Plan: Other dorsalgia [...] ICD-10 : M54.89 05/31/2018 Appointment: Jane Nettles [address] [place] [address] ACUTE ILLNESS 05/31/2018 Appointment: Yaima Johnson WPtel: [address] [place] [address] INJECTION 03/22/2018 Patient Education: Patient Medication Summary Completed 03/22/2018 Patient Education: INFLUENZA VACCINE CDC Completed 03/22/2018 Appointment: Yaima Johnson WPtel: [address] [place] [address] RESCHEDULED 02/14/2018 Visit Diagnosis Plan: Other seasonal allergic rhinitis Discussion: Increase claritin to 10mg po BID for 1-2 weeks ICD-9 : 477.9 ICD-10 : J30.2 02/06/2018 Visit Diagnosis Plan: Essential (primary) hypertension Discussion: Stable Sees Dr. Chase later this month ICD-9 : 401.9 ICD-10 : I10 02/06/2018 Visit Diagnosis Plan: Hypothyroidism, unspecified Discussion: Lab discussed Has had both Shingrix shots Follow Up: 6 months ICD-9 : 244.9 ICD-10 : E03.9 02/06/2018 Appointment: Yaima Johnson WPtel: [address] [place], [place] [phone] [place] FOLLOW UP 02/06/2018 Patient Education: Patient Medication Summary Completed 02/06/2018 Appointment: Yaima Johnson WPtel: [address] [place], [place] [phone] [place] INJECTION 12/28/2017 Patient Education: Patient Medication Summary Completed 12/28/2017 Appointment: Yaima Johnson WPtel: [address] [place], [place] [phone] [place] RESCHEDULED 12/25/2017 Visit Diagnosis Plan: Tinnitus, bilateral Discussion: See ENT for hearing eval and further workup ICD-9 : 388.31 ICD-10 : H93.13 12/18/2017 Appointment: Yaima Johnson WPtel: [address] [place] [address] ACUTE ILLNESS 12/18/2017 Patient Education: Patient Medication Summary Completed 12/18/2017 Patient Education: Tinnitus Completed 12/18/2017 Care Plan: Referral Order SNOMED-CT : [id number] Pending 12/18/2017 Appointment: Yaima Johnson WPtel: [address] [place] [address] BP CHECK 12/11/2017 Patient Education: Patient Medication Summary Completed 12/11/2017 Referral: Danyel Hernandez WPtel: [facility] [address] Referral Initiated 10/11/2017 Appointment: Yaima Johnson WPtel: [address] [place], [place] [phone] [place] INJECTION 10/04/2017 Patient Education: Patient Medication [...] M25.561 09/11/2017 Appointment: Yaima Johnson WPtel: [phone] [facility] FOLLOW UP 09/11/2017 Patient Education: Patient Medication Summary Completed 09/11/2017 Appointment: Jane Nettles [address] [place], [place] [phone] 08/28/17 9670---issue addressed in phone message (km) CANCELED 08/29/2017 Patient Education: Patient Medication Summary Completed 07/11/2017 Care Plan: A1C HPLC LO INC : 44209-5 Pending 07/11/2017 Care Plan: ASSAY OF FREE THYROXINE Pending 07/11/2017 Care Plan: ASSAY THYROID STIM HORMONE Pending 07/11/2017 Care Plan: COMPLETE CBC W/AUTO DIFF WBC LOINC : 66179-4 Pending 07/11/2017 Care Plan: COMPREHEN METABOLIC PANEL LOINC : 95898-7 Pending 07/11/2017 Visit Diagnosis Plan: Irritant contact d ermatitis, unspecified cause Discussion: Topical Betamethasone ICD-9 : 692.9 ICD-10 : L24.9 03/28/2017 Visit Diagnosis Plan: Essential (primary) hypertension Discussion: Stable Flu shot given ICD-9 : 401.9 ICD-10 : I10 03/28/2017 Visit Diagnosis Plan: Hypothyroidism, unspecified Discussion: Lab done in February--will recheck in August and ICD-9 : 244.9 ICD-10 : E03.9 03/28/2017 Visit Diagnosis Plan: Cervicalgia Di scussion: Daily neck stretches Moist Heat ICD-9 : 723.1 ICD-10 : M54.2 03/28/2017 Appointment: Yaima Johnson WPtel: [phone] [facility] ACUTE ILLNESS 03/28/2017 Patient Education: Patient Medication Summary Completed 03/28/2017 Patient Education: Patient Medication Summary Completed 02/17/2017 Care Plan: ASSAY OF FREE THYROXINE Pending 02/17/2017 Care Plan: ASSAY THYROID STIM HORMONE Pending 02/17/2017 Care Plan: A1C HPLC LO INC : 53153-5 Pending 02/17/2017 Patient Education: Patient Medication Summary Completed 11/23/2016 Care Plan: A1C HPLC LO INC : 55357-7 Pending 11/23/2016 Patient Education: Patient Medication Summary Completed 11/22/2016 Care Plan: COMPREHEN METABOLIC PANEL LOINC : 35761-3 Pending 11/22/2016 Care Plan: ASSAY THYROID STIM [...] Tyle... 09/12/2016 Appointment: [facility] Johnson [facility]Ptel[facility] [phone] [facility] [facility] 09/12/2016 Patient Education: Patient Medication Summary Completed 09/12/2016 Visit Diagnosis Plan: Pain in right knee Discussion: MRI of right knee scheduled for this weekend by ortho ICD-9 : 719.46 ICD-10 : M25.561 07/28/2016 Visit Diagnosis Plan: Dermatitis, unspecified Discussion: Use clotrimazole/betamethasone BID to hand rash ICD-9 : 692.9 ICD-10 : L30.9 07/28/2016 Appointment: Yaima Johnson WPtel: [address] [place], [place] [phone] 07/27 confirmed `sl ACUTE ILLNESS 07/28/2016 Patient [...] how does 04/26/2016 Appointment: Yaima Johnson WPtel: [address] [place], [place] [phone] ACUTE ILLNESS 04/26/2016 Patient Education: Patient Medication Summary Completed 04/26/2016 Appointment: Yaima Johnsontel: [address] [place], [place] [phone] [place] INJECTION 04/22/2016 Patient Education: Patient Medication Summary Completed 04/22/2016 Appointment: Yaima Johnson WPtel: [address] [place], [place] [phone] Stool lab 01/04/2016 Patient Education: Patient Medication Summary Completed 01/04/2016 Visit Plan[facility] Discussed that liver lesion and right kidney cyst are stable dating back to 2009 so likely benign and will recheck in 1year Check CMP and CBC 12/09/2015 Visit Plan[facility] Discussed that liver lesion and right kidney cyst are stable dating back to 2009 so likely benign and will recheck in 1year 12/09/2015 Appointment: Yaima Johnson WPtel: [address] [place], [place] [phone] [place] FOLLOW UP 12/09/2015 Patient Education: Patient [...] chest pain 09/10/2015 Appointment: Yaima Johnson WPtel: [address] [place], [place] [phone] ACUTE ILLNESS 09/10/2015 Patient Education: Patient Medication Summary Completed 09/10/2015 Appointment: Yaima Johnson WPtel: [address] [place], [place] [phone] [place] INJECTION 07/20/2015 Patient Education: Patient Medication Summary Completed 07/20/2015 Patient Education: Patient Medication Summary Completed 05/04/2015 Visit Plan: Observe left elbow for next 2 weeks and if not improving let us know Observe left leg bruising Can use voltaren gel to elbow Observe ribs Lidoderm patch for SI joint 04/23/2015 Appointment: Yaima Johnson WPtel: [address] [place], [place] [phone] [place] FOLLOW UP 04/23/2015 Patient Education: Patient Medication Summary Completed 04/23/2015 Patient Education: Patient Medication Summary Completed 04/20/2015 Visit Plan: Discussed CT results Ad d Miralax 1/2 cap every other day 03/24/2015 Visit Plan: Discussed CT results Ad d Miralax 1/2 cap every other day 03/24/2015 Appointment: Yaima Johnson WPtel: [address] [place], [place] [phone] 03/23 confirmed~sl FOLLOW UP 03/24/2015 Patient Education: Patient Medication Summary Completed 03/24/2015 Appointment: Yaima Johnson WPtel: [address] [place], [place] [phone] [place] INJECTION 03/09/2015 Patient Education: Patient Medication Summary Completed 03/09/2015 Visit Plan: Check CT scan of abdome n and pelvis with oral contrast Thoracic towel stretch 03/05/2015 Appointment: Yaima Johnson WPtel: [address] [place] [address] FOLLOW UP 03/05/2015 Patient Education: Patient Medication Summary Completed 03/05/2015 Referral: Richmond Berger WPtel: [phone] [id number] Referral Initiated 02/23/2015 Visit Plan: Lab discussed--will [...] left knee 02/19/2015 Appointment: Yaima Johnson WPtel: [address] [place] [address] 02/18/15 lm confirmed with cb FOLLOW UP 02/19/2015 Patient Education: Patient Medication Summary Completed 02/19/2015 Patient Education: Patient Medication Summary Completed 02/04/2015 Appointment: Yaima Johnson WPtel: [address] [place] [address] FOLLOW UP 01/06/2015 Visit Plan: Decrease levothyroxine to 50mcg daily Recheck TSH and Free T4 in 2mos then fwup 12/25/2014 Appointment: Yaima Johnson WPtel: [address] [place] [address] ACUTE ILLNESS 12/25/2014 Patient Education: Patient Medication Summary Completed 12/25/2014 Patient Education: [facility] - [employer] - Levothyroxine - 18-64 - Dynamic Portal ID Completed 12/25/2014 Patient Education: Patient Medication Summary Completed 12/15/2014 Visit Plan: Observe left leg keep m eds same Has scheduled for 2nd epidural Recheck 3-4weeks after next epidural 11/26/2014 Appointment: Yaima Johnson WPtel: [address] [place], [place] [phone] 11/25 appt confirmed cn FOLLOW UP 11/26/2014 Patient Education: Patient Medication Summary Completed 11/26/2014 Visit Plan: Increase Protonix to 40 mg po BID Add Bentyl 10mg BID and up to TID prn Patient goes for back injection in 3 weeks Fwup 1 week after back injection 11/04/2014 Appointment: Yaima Johnson WPtel: [address] [place] [address] 11/03/ / 11/04 appt confirmed ACUTE ILLNESS 11/04/2014 Patient Education: Patient Medication Summary Completed 11/04/2014 Appointment: Yaima Johnson WPtel: [address] [place], [place] [phone] 10/14/14: doing better-canceled appt-lb ACUTE ILLNESS 10/15/2014 Visit Plan: hydration stop benadryl Observe and monitor Headaches Leg stretches, going to PT today-have them show stretches Notify if headaches, leg pain return/persist 09/01/2014 Appointment: Yaima Johnson WPtel: [address] [place] [address] ACUTE ILLNESS 09/01/2014 Patient Education: Patient Medication Summary Completed 09/01/2014 Patient Education: Patient Medication Summary Completed 08/05/2014 Care Plan: ASSAY OF FREE THYROXINE Ordered 08/05/2014 Care Plan: ASSAY THYROID STIM HORMONE Ordered 08/05/2014 Appointment: Yaima Johnson WPtel: [address] [place], [place] [phone] UA 07/10/2014 Patient Education: Patient Medication Summary Completed 07/10/2014 Patient Education: Patient Medication Summary Completed 07/03/2014 Care Plan: HEPATIC FUNCTION PANEL Ordered 07/03/2014 Visit Plan: Vaginal ring unable to be inserted do will have to stick with pill vaginally as prescribed for at least 6mo trial Saline nasal flushes and restart flonase 06/02/2014 Appointment: Yaima Johnson WPtel: [address] [place], [place] [phone] FOLLOW UP 06/02/2014 Patient Education: Patient Medication Summary Completed 06/02/2014 Appointment: Yaima Johnson WPtel: [address] [place], [place] [phone] BP CHECK 05/26/2014 Patient Education: Patient Medication Summary Completed 05/26/2014 Patient Education: Patient Medication Summary Completed 05/22/2014 Appointment: Yaima Johnson WPtel: [address] [place] [address] BP CHECK 05/07/2014 Patient Education: Patient Medication Summary Completed 05/07/2014 Referral: Nitesh Avalos WPtel: [address] [place], [place] [phone] MRI Scheduled at [facility] 04/17 3pm Completed 04/30/2014 Appointment: Yaima Johnson WPtel: [address] [place], [place] [phone] BP CHECK 04/15/2014 Visit Plan: Decrease premarin to 0. 3125mg for 1week then stop Restart estrogen vaginal tabs and Patient requests to see Dr. Restrepo for back but discussed at this time appears to need conservative management such as PT and epidurals Moniter BP 04/08/2014 Appointment: Yaima Johnson WPtel: [address] [place], [place] [phone] ACUTE ILLNESS 04/08/2014 Patient Education: Patient Medication Summary Completed 04/08/2014 Appointment: Yaima Johnson WPtel: [address] [place], [place] [phone] ACUTE ILLNESS 03/10/2014 Visit Plan: Thoracic stretches get y Skelaxin 800mg BID Use vimovo prn Use gemma prn 03/05/2014 Appointment: Yaima Johnson WPtel: [address] [place] [address] ACUTE ILLNESS 03/05/2014 Patient Education: Patient Medication Summary Completed 03/05/2014 Visit Plan: Saline nasal flushes pr n. Tylenol/Motrin prn headache. Notify if persists/symptoms worsening. Zithromax and Prednisone Supportive care. Rest, Fluids, Tylenol/Motrin prn fever or bodyaches. Notify if worsening symptoms. 07/29/2013 Appointment: Mimi Keenan WPtel: [address] [place] [address] FOLLOW UP 07/29/2013 Patient Education: Patient Medication Summary Completed 07/29/2013 Appointment: Mimi Keenan WPtel: [address] [place] [address] 05/22 patient called back and reschedule d 05/24 not set up yet ACUTE ILLNESS 05/27/2013 Visit Plan: Add miralax Cipro/Flagy l Pt has appointment with GI in NOV 03/20/2013 Appointment: Yaima Johnson WPtel: [address] [place] [address] ACUTE ILLNESS 03/20/2013 Patient Education: Patient Medication Summary Completed 03/20/2013 Visit Plan: Sary Mederos, ic e, voltaren gel TID 02/12/2013 Appointment: Yaima Johnson WPtel: [address] [place] [address] ACUTE ILLNESS 02/12/2013 Patient Education: Patient Medication [...] Oct 2012. 11/05/2012 Appointment: Lizzette Lozano WPtel: [address] [place] [address] ACUTE ILLNESS 11/05/2012 Patient Education: Patient Medication Summary Completed 11/05/2012 Visit Plan: Continue vimovo and Ske laxin and topical biofreeze Start PT May need MRI 10/04/2012 Appointment: Yaima Johnson WPtel: [address] [place] [address] FOLLOW UP 10/04/2012 Patient Education: Patient Medication Summary Completed 10/04/2012 Visit Plan: Change toprol back to b ystolic BP check in 3wks Continue to observe hands--no observed bruising today 09/24/2012 Appointment: Yaima Johnson WPtel: [address] [place] [address] 09/21 left message ACUTE ILLNESS 09/24/2012 Patient Education: Patient Medication Summary Completed 09/24/2012 Visit Plan: Proceed with EMG of RUE Continue vimovo and skelaxin May use Voltaren gel TID to elbow and wrist 05/10/2012 Appointment: Yaima Johnson WPtel: [address] [place] [address] 05/09 left voicemail ACUTE ILLNESS 05/10/2012 Patient [...] is improving 03/07/2012 Appointment: Yaima Johnson WPtel: [address] [place] [address] FOLLOW UP 03/07/2012 Patient Education: Patient Medication Summary Completed 03/07/2012 Visit Plan: Continue current dose C heck TSH, Free T4 in 2mos 02/01/2012 Appointment: Yaima Johnson WPtel: [address] [place] [address] FOLLOW UP 02/01/2012 Patient Education: Patient Medication Summary Completed 02/01/2012 Visit Plan: Levothyroxine 50mcg po daily 12/20/2011 Appointment: Yaima Johnson WPtel: [address] [place] [address] FOLLOW UP 12/20/2011 Patient Education: Patient Medication Summary Completed 12/20/2011 Visit Plan: Mupirocin topical and S eptra DS. 11/22/2011 Appointment: Lizzette Lozano WPtel: [address] [place] [address] ACUTE ILLNESS 11/22/2011 Patient Education: Patient Medication Summary Completed 11/22/2011 Appointment: Yaima Johnson WPtel: [address] [place] [address] 07/14/2011 Patient Education: Patient Medication Summary Completed 07/14/2011 Visit Plan: Finish current abx Greta r liquids to full liquids and then advance as tolerated If worsens will notify immediately Schedule with Dr. Berger for colonoscopy/EGD 07/11/2011 Appointment: Yaima Johnson WPtel: [address] [place] [address] ER Follow UP 07/11/2011 Patient Education: Patient Medication Summary Completed 07/11/2011 Visit Plan: Take treximet today and skelaxin at bedtime Add anusol cream for 1wk Discussed if colon continues to flare-up over the next 6mos will repeat colonoscopy 07/06/2011 Appointment: Yaima Johnson WPtel: [address] [place] [address] ACUTE ILLNESS 07/06/2011 Patient Education: Patient Medication Summary Completed 07/06/2011 Appointment: Yaima Johnson WPtel: [address] [place] [address] INJECTION 06/28/2011 Patient Education: Patient Medication Summary Completed 06/28/2011 Visit Plan: OMT done Increase Skela johann to TID Start PT Daily stretches 05/26/2011 Appointment: Yaima Johnson WPtel: [address] [place] [address] ACUTE ILLNESS 05/26/2011 Patient Education: Patient Medication Summary Completed 05/26/2011 Visit Plan: OMT done Daily stretche s, biofreeze Restart skelaxin 05/16/2011 Appointment: Yaima Johnson WPtel: [address] [place] [address] OMT 05/16/2011 Patient Education: Patient Medication Summary Completed 05/16/2011 Visit Plan: OMT done to back Stretc hes, moist heat and biofreeze Observe toenails 05/05/2011 Appointment: Yaima Johnson WPtel: [address] [place] [address] ACUTE ILLNESS 05/05/2011 Patient Education: Patient Medication Summary Completed 05/05/2011 Visit Plan: Finish Flagyl Continue Culturelle and add Levbid for 1more week 04/05/2011 Appointment: Yaima Jonhson WPtel: [address] [place] [address] ER Follow UP 04/05/2011 Patient Education: Patient Medication Summary Completed 04/05/2011 Appointment: Lizzette Lozano WPtel: [address] [place] [address] ACUTE ILLNESS 03/25/2011 Appointment: Yaima Johnson WPtel: [address] [place] [address] UA 03/23/2011 Patient Education: Patient Medication Summary Completed 03/23/2011 Visit Plan: Recommend proceed with heart cath Will check PFTs 03/02/2011 Appointment: Yaima Johnson WPtel: [address] [place] [address] [place] FOLLOW UP 03/02/2011 Patient Education: Patient Medication Summary Completed 03/02/2011 Appointment: Yaima Johnson WPtel: [address] [place] [address] LAB 01/14/2011 Patient Education: Patient Medication Summary [...] cardiology appnt. 01/05/2011 Appointment: Lizzette Lozano WPtel: [address] [place] [address] ACUTE ILLNESS 01/05/2011 Patient Education: Patient Medication Summary Completed 01/05/2011 Visit Plan: Once again stressed imp ortance of using premarin vaginal cream routinely to see if helps urinary symptoms Will culture urine Will observe lipomas--discussed may see surgery for removal 11/16/2010 Appointment: Yaima Johnson WPtel: [address] [place] [address] ACUTE ILLNESS 11/16/2010 Patient Education: Patient Medication Summary Completed 11/16/2010 Visit Plan: Injection to bursa as a escobar Pt will continue to moniter BP and pulse off meds Repeat potassium level in 1wk 11/04/2010 Appointment: Yaima Johnson WPtel: [address] [place], [place] [phone] FOLLOW UP 11/04/2010 Patient Education: Patient Medication Summary Completed 11/04/2010 Visit Plan: Saline nasal flushes pr n. Tylenol/Motrin prn headache. Notify if persists/symptoms worsening. 08/05/2010 Appointment: Yaima Johnson WPtel: [address] [place], [place] [phone] [place] FOLLOW UP 08/05/2010 Patient Education: Patient Medication Summary Completed 08/05/2010 Visit Plan: Saline nasal flushes pr n. Tylenol/Motrin prn headache. Notify if persists/symptoms worsening. Nasacort AQ 1 spray each nostril BID 07/23/2010 Appointment: Yaima Johnsontel: [address] [place] [address] ACUTE ILLNESS 07/23/2010 Patient Education: Patient Medication Summary Completed 07/23/2010 Appointment: Yaima Johnson WPtel: [address] [place] [address] UA 07/05/2010 Patient Education: Patient Medication Summary Completed 07/05/2010 Appointment: Yaima Johnson WPtel: [address] [place] [address] BP CHECK 06/28/2010 Patient Education: Patient Medication Summary Completed 06/28/2010 Appointment: Yaima Johnson WPtel: [address] [place] [address] UA 06/14/2010 Appointment: Yaima Johnsontel: [address] [place] [address] BP CHECK 06/14/2010 Appointment: Yaima Johnson WPtel: [address] [place] [address] BP CHECK 06/14/2010 Patient Education: Patient Medication Summary Completed 06/14/2010 Patient Education: Patient Medication Summary Completed 06/14/2010 Appointment: Yaima Johnson WPtel: [address] [place] [address] BP CHECK 06/10/2010 Visit Plan: Decrease lisinopril hct to 10/12.5mg QD and moniter BP BP check in 2-3wks--if pulse is increasing will go back to bystolic See ENT to evaluate hoarseness 06/07/2010 Appointment: Yaima Johnsontel: [address] [place], [place] [phone] FOLLOW UP 06/07/2010 Patient Education: Patient Medication [...] (See printoff) 05/12/2010 Appointment: Lizzette Lozano WPtel: [address] [place] [address] ACUTE ILLNESS 05/12/2010 Patient Education: Patient Medication Summary Completed 05/12/2010 Visit Plan: Continue Bentyl at QA and HS Continue protonix but increase to BID for 5-7 days If any fever or signs of divertuclitis develop notify 04/27/2010 Appointment: Yaima Johnson WPtel: [address] [place], [place] [phone] ACUTE ILLNESS 04/27/2010 Patient Education: Patient Medication Summary Completed 04/27/2010 Visit Plan: flako barajas. Refils . Alprazolam #90, -written RX 04/19/2010 Appointment: Lizzette Lozano WPtel: [address] [place], [place] [phone] ACUTE ILLNESS 04/19/2010 Patient Education: Patient Medication Summary Completed 04/19/2010 Appointment: Yaima Johnson WPtel: [address] [place], [place] [phone] [place] LAB 04/12/2010 Patient Education: Patient Medication Summary Completed 04/12/2010 Appointment: Yaima Johnson WPtel: [address] [place], [place] [phone] [place] UA 04/08/2010 Patient Education: Patient Medication Summary Completed 04/08/2010 Visit Plan: Use Treximet prn Start daily Macrobid Restart premarin vaginal cream Flu shot given 03/09/2010 Appointment: Yaima Johnson WPtel: [address] [place] [address] FOLLOW UP 03/09/2010 Patient Education: Patient Medication Summary Completed 03/09/2010 Appointment: Yaima Johnson WPtel: [address] [place] [address] BP CHECK 01/19/2010 Patient Education: Patient Medication Summary Completed 01/19/2010 Visit Plan: Check CT head Increase Bystolic to 5mg QD BP check in 2wks 01/04/2010 Appointment: Yaima Johnson WPtel: [address] [place] [address] ACUTE ILLNESS 01/04/2010 Patient Education: Patient Medication Summary Completed 01/04/2010 Appointment: Yaima Johnson WPtel: [address] [place] [address] BP CHECK 12/21/2009 Patient Education: Patient Medication Summary Completed 12/21/2009 Visit Plan: Change cenestin back to Premarin Cont to moniter BP BP check in 1wk 12/14/2009 Appointment: Yaima Johnson WPtel: [address] [place] [address] FOLLOW UP 12/14/2009 Patient Education: Patient Medication [...] no improvement. Possibly a Z-pack. 11/23/2009 Appointment: Lizztete Lozano WPtel: [phone] [facility] [place] FOLLOW UP 11/23/2009 Patient Education: Patient Medication Summary Completed 11/23/2009 Appointment: Yaima Johnson WPtel: [phone] [facility] [place] LAB 09/29/2009 Patient Education: Patient Medication Summary Completed 09/29/2009 App[facility]ment: [facility]el[facility] [phone] [id number] [place] [facility] 08/12/2009 Patient Education: Patient Medication Summary Completed 08/12/2009 Referral: Richmond Berger WPtel: [address] [id number] [place] Referral Appointment Requested Referral: Jayce Boyce WPtel: [address] [id number] [place] Referral Appointment Requested Referral: Naldo Johnson WPtel: [address] [id number] [place] Referral Initiated Referral: Naldo Johnson WPtel: [address] [id number] [place] Referral Appointment Requested Instructions Comment . [...] has appointment with GI in [place] . Recommend proceed with heart cath Will [...]
--- OUTSIDE RECORDS SUMMARY | 2019-08-15 06:27 | XMS REPORT | CCD ---
Author Author Fay Johnson D.O. Organization [facility] Address [address] [place] [address] Phone Care Team Providers Care Fruit Sprayer Name Role Phone Yaima Johnson D.O., PP Unavailable CCM Unavailable Summary Purpose Interface Exchange Insurance Providers Payer name Policy type / Coverage type Covered libertarian ID Effective Begin Date Effective End Date WPS MEDICARE PART B [place] Medicare Part B [id number] 2018 Unknown [facility] Medicare Part B [id number] 2018 Unknown Family History Family History data not found Social History Social History Element Codes Description Effective Dates Marital status Unknown M arried 05/16/[address]: [id number] Never smoker 04/05/2011 Allergies, Adverse Reactions, Alerts [...] ICD-10: K76.89 12/08/2015 Active Influenza due to robbni ntified novel influenza A virus with other [...] Fill Instructions Mobic 7.5 mg tablet RxNorm: 031205 1 Tablet(s) PO QOD opposite days as alev e 11/21/2018 11/21/2018 In active dicyclomine 10 mg ca psule RxNorm: 087627 1 Capsule(s) PO TID a s needed for abdominal pain 08/23/2018 No Stop Date Active alprazolam 0.25 mg t ablet RxNorm: 708925 1 Tablet(s) PO Q8H as needed for anxiety 08/10/2018 11/20/2018 In active [AttnRPh: Saving apply/adjudicate RxGRP: SG20 RxBIN:[id number] RxPCN:HT ID#:[id number]] levothyroxine 25 mcg tablet RxNorm: 809372 1 Tablet(s) PO QD rep laces 50mcg dose 08/06/2018 10/04/2018 In active levothyroxine 25 mcg tablet RxNorm: 849671 1 Tablet(s) PO QD rep laces 50mcg dose 08/06/2018 08/05/2018 In active levothyroxine 50 mcg tablet RxNorm: 995209 1 Tablet(s) PO QD 07/26/2018 08/05/2018 Inactive Generic For:*SYNTHROID 0.05MG TAB 08/09 8:59:33 AM Mobic 7.5 mg tablet RxNorm: 985449 1 Tablet(s) PO QOD opposite days as alev e 07/10/2018 09/07/2018 In active Mobic 7.5 mg tablet RxNorm: 886477 1 Tablet(s) PO QD 07/10/2018 07/09/2018 Inactive Toprol XL 25 mg tabl et,extended release RxNorm: 535073 1 Tablet(s) PO QD 06/18/2018 03/14/2019 Ac tive Generic For:TOPROL XL 25MG TAB SA 2015 9:08:41 AM amoxicillin 500 mg c apsule RxNorm: 215897 1 Capsule(s) PO TID 06/04/2018 06/10/2018 Inactive amoxicillin 500 mg c apsule RxNorm: 716663 1 Capsule(s) PO TID 06/04/2018 06/03/2018 Inactive Skelaxin 800 mg tablet RxNorm: 195105 1 Tablet(s) PO BID as needed for muscle spasm 05/31/2018 No Stop Date Active levothyroxine 50 mcg tablet RxNorm: 710559 1 Tablet(s) PO QD 02/02/2018 07/25/2018 Inactive Generic For:*SYNTHROID 0.05MG TAB 08/09 8:59:33 AM Toprol XL 25 mg tabl et,extended release RxNorm: 946680 1 Tablet(s) PO QD 12/19/2017 06/16/2018 In active Generic For:TOPROL XL 25MG TAB SA 12/20 9:08:41 AM ranitidine 150 mg ta blet RxNorm: 851384 1 Tablet(s) PO BID 12/11/2017 05/31/2018 Inactive levothyroxine 50 mcg tablet RxNorm: 338896 1 Tablet(s) PO QD SHIMON E 1 TABLET BY MOUTH EVERY DAY 08/03/2017 02/02/2018 Inactive Generic For:*SYNTHROID 0.05 MG TAB 08/09/2016 8:59:33 AM Singulair 10 mg tablet RxNorm: 774428 1 Tablet(s) PO QHS 07/11/2017 09/10/2017 Inactive dicyclomine 10 mg ca psule RxNorm: 271702 1 Capsule(s) PO TID a s needed for abdominal pain 06/08/2017 08/22/2018 Inactive ranitidine 150 mg ta blet RxNorm: 255928 1 Tablet(s) PO BID 06/08/2017 09/05/2017 Inactive Toprol XL 25 mg tabl et,extended release RxNorm: 466060 1 Tablet(s) PO QD 06/08/2017 12/19/2017 In active Generic For:TOPROL XL 25MG TAB SA 12/20 9:08:41 AM betamethasone diprop ionate 0.05 % topical cream RxNorm: 648144 1 Application TOP QHS 03/28/2017 10/03/2018 Inactive levothyroxine 50 mcg tablet RxNorm: 348896 1 Tablet(s) PO QD SHIMON E 1 TABLET BY MOUTH EVERY DAY 02/03/2017 08/01/2017 Inactive Generic For:*SYNTHROID 0.05 MG TAB 08/09/2016 8:59:33 AM ranitidine 150 mg ta blet RxNorm: 311954 1 Tablet(s) PO BID 12/15/2016 06/08/2017 Inactive Toprol XL 25 mg tabl et,extended release RxNorm: 192722 1 Tablet(s) PO QD 12/15/2016 06/08/2017 In active Generic For:TOPROL XL 25MG TAB SA 12/20 9:08:41 AM ranitidine 150 mg ta blet RxNorm: 691206 1 Tablet(s) PO BID 11/11/2016 12/10/2016 Inactive ranitidine 75 mg tablet RxNorm: 899863 1 Tablet(s) PO QD 10/21/2016 11/10/2016 Inactive ranitidine 75 mg tablet RxNorm: 389326 1 Tablet(s) PO QD 10/21/2016 10/20/2016 Inactive Tamiflu 75 mg capsule RxNorm: 977494 1 Capsule(s) PO BID 09/12/2016 09/16/2016 Inactive Promethegan 25 mg re ctal suppository RxNorm: 141467 1 Suppository RTL Q4H as needed 09/12/2016 03/27/2017 In active levothyroxine 50 mcg tablet RxNorm: 235647 TAKE 1 TABLET BY MOUT H EVERY DAY 08/09/2016 02/03/2017 In active Generic For:*SYNTHROID 0.05MG TAB 08/09 8:59:33 AM famotidine 40 mg tablet RxNorm: 422145 1 Tablet(s) PO BID 07/22/2016 10/20/2016 Inactive clotrimazole-betamet hasone 1 %-0.05 % topical cream RxNorm: 007411 1 Application TOP BID to rash prn--was supposed to be cream not lotion 06/23/2016 03/27/2017 Inactive famotidine 40 mg tablet RxNorm: 226394 1 Tablet(s) PO BID 06/23/2016 07/21/2016 Inactive Toprol XL 25 mg tabl et,extended release RxNorm: 376685 1 Tablet(s) PO QD 06/14/2016 12/15/2016 In active Generic For:TOPROL XL 25MG TAB SA 12/20 9:08:41 AM dicyclomine 10 mg ca psule RxNorm: 506977 1 Capsule(s) PO TID a s needed for abdominal pain 04/26/2016 06/07/2017 Inactive dicyclomine 10 mg ca psule RxNorm: 032739 1 Capsule(s) PO TID a s needed for abdominal pain 04/26/2016 06/08/2017 Inactive famotidine 40 mg tablet RxNorm: 156711 1 Tablet(s) PO QD 04/26/2016 06/22/2016 Inactive Protonix 40 mg table t,delayed release RxNorm: 165316 1 Tablet(s) PO QD 02/05/2016 03/27/2017 In active levothyroxine 50 mcg tablet RxNorm: 305723 1 Tablet(s) PO QD 01/25/2016 07/22/2016 Inactive Toprol XL 25 mg tabl et,extended release RxNorm: 598499 TAKE ONE TABLET BY [facility] EVERY DAY 12/21/2015 06/14/2016 Inactive Generic For:TOPROL XL 25MG TAB SA 12/20 9:08:41 AM Protonix 40 mg table t,delayed release RxNorm: 929546 1 Tablet(s) PO QD 07/27/2015 01/22/2016 In active levothyroxine 50 mcg tablet RxNorm: 361903 1 Tablet(s) PO QD 07/22/2015 01/17/2016 Inactive Phenergan 25 mg rect al suppository RxNorm: 735322 1 Suppository RTL Q4H as needed for nausea and vomiting 07/20/2015 12/08/2015 Inactive Toprol XL 25 mg tabl et,extended release RxNorm: 462231 1 Tablet(s) PO QD 06/15/2015 12/11/2015 In active clotrimazole-betamet hasone 1 %-0.05 % topical cream RxNorm: 428196 1 Application TOP BID to rash prn--was supposed to be cream not lotion 05/20/2015 05/19/2015 Inactive Protonix 40 mg table t,delayed release RxNorm: 129490 1 Tablet(s) 1 Tablet( s) PO QD 04/23/2015 07/27/2015 In active levothyroxine 50 mcg tablet RxNorm: 089213 1 Tablet(s) PO QD 04/23/2015 07/21/2015 Inactive Lidoderm 5 % (700 mg /patch) adhesive patch RxNorm: 6634622 1-2 Unit Dose TOP QD on for 12hrs then off for 12hrs 04/23/2015 03/27/2016 Inactive Miralax 17 gram oral powder packet RxNorm: 557178 1/2 Unit Dose PO ever y other day 03/24/2015 03/29/2015 In active levothyroxine 50 mcg tablet RxNorm: 910227 1 Tablet(s) PO QD 02/19/2015 04/19/2015 Inactive dicyclomine 10 mg ca psule RxNorm: 993628 1 Capsule(s) PO TID a s needed for abdominal pain 02/19/2015 04/25/2016 Inactive dicyclomine 10 mg ca psule RxNorm: 914731 1 Capsule(s) PO TID a s needed for abdominal pain 12/25/2014 02/18/2015 Inactive Protonix 40 mg table t,delayed release RxNorm: 123686 1 Tablet(s) PO BID 12/25/2014 03/04/2015 In active levothyroxine 50 mcg tablet RxNorm: 170361 1 Tablet(s) PO QD 12/25/2014 02/18/2015 Inactive Flonase 50 mcg/actua tion nasal spray,suspension RxNorm: 860799 2 [place] NASAL QHS 12/25/2014 10/03/2018 In active [SAVINGS FOR NON-COVERED DRUGS -- BIN:00 3585, PCN: ASPROD1, Group: XXXXX, ID# [id number], Questions: . THIS IS NOT INSURANCE.] Toprol XL 25 mg tabl et,extended release RxNorm: 551230 1 Tablet(s) PO QD 12/01/2014 05/29/2015 In active dicyclomine 10 mg ca psule RxNorm: 789130 1 Capsule(s) PO TID a s needed for abdominal pain 12/01/2014 12/24/2014 Inactive levothyroxine 75 mcg tablet RxNorm: 425060 1 Tablet(s) PO QD 11/10/2014 12/24/2014 Inactive [AttnRPh: Saving apply/adjudicate RxGRP: SG20 RxBIN:[id number] RxPCN: ID#:[id number]] Protonix 40 mg table t,delayed release RxNorm: 021273 1 Tablet(s) BID 1 Tab let(s) PO QD 11/04/2014 12/24/2014 Inactive dicyclomine 10 mg ca psule RxNorm: 544110 1 Capsule(s) PO TID a s needed for abdominal pain 11/04/2014 11/30/2014 Inactive Protonix 40 mg table t,delayed release RxNorm: 340956 Tablet(s) 1 Tablet(s) PO QD 10/14/2014 11/03/2014 In active Flonase 50 mcg/actua tion nasal spray,suspension RxNorm: 896964 2 [place] NASAL QHS 09/01/2014 12/24/2014 In active [SAVINGS FOR NON-COVERED DRUGS -- BIN:00 3585, PCN: ASPROD1, Group: XXXXX, ID# [id number], Questions: . THIS IS NOT INSURANCE.] Toprol XL 25 mg tabl et,extended release RxNorm: 374048 Tablet(s) 1/2 Tablet( s) PO QD 08/28/2014 11/25/2014 Inactive [SAVINGS FOR UNINSURED PATIENTS -- BIN:0 01996, PCN: ASPROD1, Group: [id number], ID# [id number], Process claim through [employer], for questions: . THIS IS NOT INSURANCE.] estradiol 0.01% (0.1 mg/gram) vaginal cream RxNorm: 614185 1 Gram(s) VAG Insert vaginally at bedtime, Monday, Monday and Monday06/26/2014 12/24/2014 Inactive Toprol XL 25 mg tabl et,extended release RxNorm: 087028 1/2 Tablet(s) PO QD 06/06/2014 08/27/2014 In active [SAVINGS FOR UNINSURED PATIENTS -- BIN:0 85187, PCN: ASPROD1, Group: [id number], ID# [id number], Process claim through [employer], for questions: . THIS IS NOT INSURANCE.] estradiol 0.5 mg tablet RxNorm: 712696 1 Tablet(s) VAG Place one tablet in the vagina at bedtime three times a week 06/02/2014 06/25/2014 Inactive Estring 2 mg vaginal RxNorm: 103875 VAG Insert vaginally and remove after 90 days 05/27/2014 06/01/2014 Inactive Toprol XL 25 mg tabl et,extended release RxNorm: 629682 1/2 Tablet(s) PO QD 04/15/2014 04/14/2014 In active Protonix 40 mg table t,delayed release RxNorm: 124130 1 Tablet(s) PO QD 04/15/2014 10/14/2014 In active estradiol 0.5 mg tablet RxNorm: 394402 1 Tablet(s) VAG Place one tablet in the vagina at bedtime twice a week 04/15/2014 06/01/2014 Inactive Toprol XL 25 mg tabl et,extended release RxNorm: 663665 1/2 Tablet(s) PO QD 04/15/2014 06/05/2014 In active [SAVINGS FOR UNINSURED PATIENTS -- BIN:0 83507, PCN: ASPROD1, Group: [id number], ID# [id number], Process claim through [employer], for questions: . THIS IS NOT INSURANCE.] levothyroxine 75 mcg tablet RxNorm: 903236 1 Tablet(s) PO QD 04/08/2014 04/07/2014 Inactive [AttnRPh: Saving apply/adjudicate RxGRP: SG20 RxBIN:[id number] RxPCN: ID#:[id number]] Flonase 50 mcg/actua tion nasal spray,suspension RxNorm: 895852 1 [place] NASAL BID 04/08/2014 08/31/2014 In active levothyroxine 75 mcg tablet RxNorm: 339176 1 Tablet(s) PO QD 04/08/2014 10/04/2014 Inactive [AttnRPh: Saving apply/adjudicate RxGRP: SG20 RxBIN:[id number] RxPCN: ID#:[id number]] estradiol 0.5 mg tablet RxNorm: 832788 Tablet(s) PO Place one tablet in the vag [place] at bedtime one time weekly 04/08/2014 04/07/2014 Inactive levothyroxine 75 mcg tablet RxNorm: 043995 1 Tablet(s) PO QD 03/20/2014 04/07/2014 Inactive [AttnRPh: Saving apply/adjudicate RxGRP: SG20 RxBIN:[id number] RxPCN:HT ID#:[id number]] Skelaxin 800 mg tablet RxNorm: 386601 1 Tablet(s) PO TID as needed for muscle spasm 03/05/2014 11/03/2014 Inactive alprazolam 0.25 mg t ablet RxNorm: 013217 1 Tablet(s) PO Q8H as needed for anxiety 02/27/2014 08/05/2018 In active [AttnRPh: Saving apply/adjudicate RxGRP: SG20 RxBIN:[id number] RxPCN:HT ID#:[id number]] Synthroid 75 mcg tablet RxNorm: 387519 1 Tablet(s) PO QD 11/29/2013 11/03/2014 Inactive levothyroxine 75 mcg tablet RxNorm: 355922 1 Tablet(s) PO QD -Ne ed labs 11/27/2013 03/19/2014 In active [AttnRPh: Saving apply/adjudicate RxGRP: SG20 RxBIN:[id number] RxPCN: ID#:[id number]] Protonix 40 mg table t,delayed release RxNorm: 265304 1 Tablet(s) PO QD 10/07/2013 04/04/2014 In active Synthroid 75 mcg tablet RxNorm: 254084 1 Tablet(s) PO QD 09/02/2013 11/28/2013 Inactive Zithromax 500 mg tablet RxNorm: 559584 1 Tablet(s) PO QD 07/29/2013 08/04/2013 Inactive prednisone 20 mg tablet RxNorm: 922415 1 Tablet(s) PO QD 07/29/2013 08/02/2013 Inactive Synthroid 75 mcg tablet RxNorm: 121331 1 Tablet(s) PO QD Patient wants it put o n hold 05/14/2013 09/02/2013 Inactive Synthroid 75 mcg tablet RxNorm: 180590 1 Tablet(s) PO QD 05/01/2013 05/13/2013 Inactive Flagyl 500 mg tablet RxNorm: 804984 1 Tablet(s) PO BID 03/20/2013 04/02/2013 Inactive Cipro 500 mg tablet RxNorm: 165235 1 Tablet(s) PO QD 03/20/2013 04/02/2013 Inactive levothyroxine 75 mcg tablet RxNorm: 616911 1 Tablet(s) PO QD 11/05/2012 05/03/2013 Inactive Septra DS 800 mg-160 mg tablet RxNorm: 477715 1 Tablet(s) PO BID an tibiotic 11/05/2012 11/09/2012 In active Bystolic 5 mg tablet RxNorm: 336590 1 Tablet(s) PO QD 10/10/2012 08/05/2018 Inactive Bystolic 5 mg tablet RxNorm: 873463 1 Tablet(s) PO QD 10/10/2012 02/11/2013 Inactive Protonix 40 mg table t,delayed release RxNorm: 517154 1 Tablet(s) PO QD 09/24/2012 09/18/2013 In active Synthroid 75 mcg tablet RxNorm: 067720 1 Tablet(s) PO QD 08/01/2012 09/23/2012 Inactive Synthroid 75 mcg tablet RxNorm: 833952 1 Tablet(s) PO QD Brand name only 07/03/2012 07/31/2012 In active Skelaxin 800 mg tablet RxNorm: 820972 1 Tablet(s) PO TID prn spasm 05/02/2012 03/04/2014 Inactive Zithromax Z-Leonel 250 mg tablet RxNorm: 723720 Tablet(s) PO As Direc sheridan 04/12/2012 05/01/2012 In active levothyroxine 75 mcg tablet RxNorm: 270147 1 Tablet(s) PO QD 04/03/2012 08/05/2018 Inactive levothyroxine 75 mcg tablet RxNorm: 726139 1 Tablet(s) PO QD 04/03/2012 07/01/2012 Inactive Ultram 50 mg tablet RxNorm: 784703 1-2 Tablet(s) PO TID as needed for migra ine 04/03/2012 11/03/2014 In active Vimovo 500 mg-20 mg tablets,immediate & delayed release RxNorm: 157143 1 Tablet(s) PO BID for pain 03/28/2012 07/25/2012 Inactive levothyroxine 75 mcg tablet RxNorm: 864797 1 Tablet(s) PO QD 03/07/2012 04/02/2012 Inactive levothyroxine 50 mcg tablet RxNorm: 871803 1 Tablet(s) PO QD 02/01/2012 09/23/2012 Inactive levothyroxine 50 mcg tablet RxNorm: 476133 1 Tablet(s) PO QD 12/20/2011 01/31/2012 Inactive Septra DS 800 mg-160 mg Tab RxNorm: 711340 1 Tablet(s) PO BID 11/22/2011 11/26/2011 Inactive mupirocin 2 % Ointment RxNorm: 095924 1 Application TOP TID 11/22/2011 11/28/2011 Inactive Protonix 40 mg table t,delayed release RxNorm: 735107 1 Tablet(s) PO QD 09/13/2011 09/24/2012 In active hydrocodone-acetamin ophen 5 mg-500 mg Tab RxNorm: 691594 1 Tablet(s) PO Q4-6H as needed for pain 07/13/2011 11/21/2011 Inactive Skelaxin 800 mg tablet RxNorm: 344644 1 Tablet(s) PO TID prn spasm 06/30/2011 11/21/2011 Inactive Skelaxin 800 mg Tab RxNorm: 539505 1 Tablet(s) PO TID prn spasm 05/23/2011 No Stop Date Active potassium chloride E R 10 mEq Cap RxNorm: 7058643 2 Capsule(s) PO QD 12/30/2010 01/30/2011 Inactive potassium chloride E R 10 mEq Cap RxNorm: 3520540 1 Capsule(s) PO QD 12/29/2010 12/29/2010 Inactive Take 2 tablets by mouth on Monday, , Monday and 1 tablet by mouth on Monday, , Monday and Monday Premarin 0.9 mg Tab RxNorm: 643294 1 Tablet(s) PO QD 12/09/2010 01/07/2011 Inactive potassium chloride E R 10 mEq Cap RxNorm: 5343641 1 Capsule(s) PO QD 12/07/2010 No Stop Date Active Take 2 tablets by mouth on Monday, , Monday and 1 tablet by mouth on Monday, , Monday and Monday promethazine 12.5 mg Rectal Suppository RxNorm: 597031 1 Application RTL Q6- 8H 12/07/2010 12/16/2010 In active prn nausea and vomiting potassium chloride E R 10 mEq Cap RxNorm: 4522499 1 Capsule(s) PO QD 12/03/2010 No Stop Date Active MWF take 2 tablets daily. Take one tabl et daily on other days. Protonix 40 mg Tab RxNorm: 356435 1 Tablet(s) PO QD 09/27/2010 09/13/2011 Inactive cefdinir 300 mg Cap RxNorm: 953430 2 Capsule(s) PO QD 08/05/2010 08/04/2010 Inactive cefdinir 300 mg Cap RxNorm: 706232 2 Capsule(s) PO QD 08/05/2010 08/14/2010 Inactive Premarin 1.25 mg Tab RxNorm: 181465 1 Tablet(s) PO QD 06/14/2010 12/09/2010 Inactive lisinopril-hydrochlo rothiazide 10 mg-12.5 mg Tab RxNorm: 082357 1 Tablet(s) PO 06/07/2010 11/04/2010 In active alprazolam 0.25 mg Tab RxNorm: 087090 1 Tablet(s) PO TID written script provid ed to patient. 05/24/2010 06/22/2010 Inactive Treximet 85 mg-500 m g Tab RxNorm: 801112 1 Tablet(s) PO PRN 05/12/2010 09/23/2012 Inactive lisinopril-hydrochlo rothiazide 20 mg-12.5 mg Tab RxNorm: 058309 1 Tablet(s) PO QD 05/12/2010 11/04/2010 In active alprazolam 0.25 mg Tab RxNorm: 605085 1 Tablet(s) PO TID written script provid ed to patient. 04/19/2010 05/23/2010 Inactive Macrobid 100 mg Cap RxNorm: 1220507 1 Capsule(s) PO BID 04/08/2010 04/17/2010 Inactive Premarin 1.25 mg Tab RxNorm: 193315 1 Tablet(s) PO QD 03/22/2010 06/13/2010 Inactive Amitriptyline 10 mg Tab RxNorm: 953902 1 Tablet(s) PO QD 03/22/2010 06/19/2010 Inactive Protonix 40 mg Tab RxNorm: 349617 1 Tablet(s) PO QD 03/22/2010 06/19/2010 Inactive alprazolam 0.25 mg Tab RxNorm: 328097 1 Tablet(s) PO TID 03/10/2010 04/08/2010 Inactive Macrobid 100 mg Cap RxNorm: 0395651 1 Capsule(s) PO QD 03/09/2010 04/26/2010 Inactive Bystolic 5 mg Tab RxNorm: 426946 1 Tablet(s) PO QD Fill at 30 if insuranc e will not accept 03/01/2010 11/04/2010 Inactive Protonix 40 mg Tab RxNorm: 398731 1 Tablet(s) PO QD 11/23/2009 12/22/2009 Inactive Premarin 1.25 mg Tab RxNorm: 411017 1 Tablet(s) PO QD 11/23/2009 12/13/2009 Inactive Bentyl 10 mg Cap RxNorm: 124946 1 Capsule(s) PO QID 11/23/2009 11/15/2010 Inactive Elavil 10 mg Tab RxNorm: 938230 1 Tablet(s) PO QPM 11/19/2009 11/15/2010 Inactive Cranberry Concentrat e capsule RxNorm: 1 Capsule(s) PO QD No Start Date Active Estrace 0.01% (0.1 m g/gram) vaginal cream RxNorm: 128557 1 Application VAG wee kly No Start Date Active Xyzal 5 mg tablet RxNorm: 543712 1 Tablet(s) PO QD No Start Date Active Protonix 40 mg table t,delayed release RxNorm: 528335 1 Tablet(s) PO QD No Start Date Active fluticasone propiona te 50 mcg/actuation nasal spray,suspension RxNorm: 6539617 2 [place] NASAL QD No Start Date Active Vitamin D3 2,000 uni t tablet RxNorm: 992212 1 Tablet(s) PO QD No Start Date Active levothyroxine 50 mcg tablet RxNorm: 850507 1 Tablet(s) PO QD No Start Date Active BIOFREEZE Top RxNorm: Topical No Start Date Active meloxicam 15 mg tablet RxNorm: 405994 1 Tablet(s) PO QD as needed No Start Date Active multivitamin chewabl e tablet RxNorm: 1 Tablet(s) PO QD No Start Date Active Estring 2 mg vaginal RxNorm: 404119 VAG Insert vaginally and remove after 90 days No Start Date 05/26/2014 Inactive Premarin 0.625 mg ta blet RxNorm: 419214 1 Tablet(s) PO QD No Start Date 04/07/2014 Inactive Miralax 17 gram/dose oral powder RxNorm: 597295 1 capful PO QD No Start Date 08/05/2018 Inactive diazepam 5 mg tablet RxNorm: 620305 2 Tablet(s) PO before MRI No Start Date 10/03/2018 Inactive Protonix 40 mg table t,delayed release RxNorm: 961462 1 Tablet(s) PO QD No Start Date 07/26/2015 Inactive B12 sublingual RxNorm: 62207 sublingual No Start Date 03/27/2017 Inactive Treximet 85 mg-500 m g Tab RxNorm: 757287 Tablet(s) PO PRN No Start Date 05/11/2010 Inactive Gemma 180 mg Tab RxNorm: 558964 1 Tablet(s) PO QD No Start Date 12/19/2011 Inactive Gemma Allergy 180 mg tablet RxNorm: 499669 1 Tablet(s) PO QD No Start Date 08/31/2014 Inactive estradiol 0.01% (0.1 mg/gram) vaginal cream RxNorm: 756972 1 Gram(s) VAG Insert vaginally at bedtime, Monday, Monday and Monday No Start Date 06/25/2014 Inactive Tylenol Ex Str Arthr itis Pain 500 mg tablet RxNorm: 929284 2 Tablet(s) PO TID No Start Date 08/05/2018 Inactive Toprol XL 25 mg tabl et,extended release RxNorm: 858694 1 Tablet(s) PO QD No Start Date 11/30/2014 Inactive Ultram 50 mg tablet RxNorm: 501153 1-2 Tablet(s) PO TID as needed for migra ine No Start Date 04/02/2012 Inactive Premarin 0.9 mg Tab RxNorm: 575028 1 Tablet(s) PO QD No Start Date 12/19/2011 Inactive Bystolic 5 mg Tab RxNorm: 196380 1/2 Tablet(s) PO QD No Start Date 02/28/2010 Inactive Ondansetron HCl 4 mg Tab RxNorm: 176316 1 Tablet(s) PO TID or every 8hrs as needed for nausea No Start Date 11/21/2011 Inactive Protonix 40 mg table t,delayed release RxNorm: 511997 1 Tablet(s) PO BID No Start Date 12/24/2014 Inactive potassium chloride E R 10 mEq Cap RxNorm: 2305280 1 Capsule(s) PO QD No Start Date 12/02/2010 Inactive Miralax 17 gram/dose oral powder RxNorm: 710594 1 capful PO QD No Start Date 03/29/2015 Inactive levothyroxine 75 mcg tablet RxNorm: 517693 1 Tablet(s) PO QD six days a week No Start Date 12/24/2014 Inactive Cenestin 1.25 mg Tab RxNorm: 040066 1 Tablet(s) PO QD No Start Date 01/03/2010 Inactive calcium-vitamin D3 5 00 mg oral wafer RxNorm: 1 Tablet(s) PO QD No Start Date 12/08/2015 Inactive Vimovo 500 mg-20 mg tablet,immediate & delayed release RxNorm: 826442 1 Tablet(s) PO QD No Start Date 11/03/2014 Inactive alprazolam 0.25 mg t ablet RxNorm: 441926 1 Tablet(s) PO Q8H as needed for anxiety/stress No Start Date 12/24/2014 Inactive betamethasone diprop ionate 0.05 % topical cream RxNorm: 068272 1 Application TOP QHS No Start Date 03/27/2017 Inactive cetirizine 10 mg cap verito RxNorm: 9216367 1 Capsule(s) PO QD No Start Date 09/10/2017 Inactive Skelaxin 800 mg Tab RxNorm: 024267 Tablet(s) PO PRN No Start Date 11/15/2010 Inactive Zithromax Z-Leonel 250 mg tablet RxNorm: 368641 Tablet(s) PO As Direc sheridan No Start Date 04/11/2012 Inactive Zithromax Z-Leonel 250 mg Tab RxNorm: 252804 Tablet(s) PO as directed No Start Date 11/15/2010 Inactive Gemma 180 mg tablet RxNorm: 772799 1 Tablet(s) PO QD No Start Date 12/24/2014 Inactive Anusol-HC 2.5 % Rect al Cream RxNorm: 147560 Application RTL BID f or 1wk No Start Date 12/19/2011 Inactive metoprolol succinate ER 25 mg 24 hr Tab RxNorm: 645534 1/2 Tablet(s) PO QD No Start Date 10/03/2012 Inactive clotrimazole-betamet hasone 1 %-0.05 % Lotion RxNorm: 737444 Application TOP BID t o rash No Start Date 05/15/2011 Inactive ranitidine 150 mg ta blet RxNorm: 368850 1 Tablet(s) PO QD No Start Date 12/06/2018 Inactive ranitidine 150 mg ta blet RxNorm: 260785 1 Tablet(s) PO BID No Start Date 11/10/2016 Inactive promethazine 12.5 mg Rectal Suppository RxNorm: 238903 1 Application RTL Q6- 8H No Start Date 12/06/2010 Inactive Maxalt-BRICK CATCHER 10 mg dis integrating tablet RxNorm: 221757 1 Tablet(s) PO at hea dache onset--may repeat in 2hrs if needed No Start Date 12/24/2014 Inactive Benadryl 25 mg capsule RxNorm: 7196795 Capsule(s) PO as needed No Start Date 12/24/2014 Inactive Cranberry Concentrat e 500 mg capsule RxNorm: 462139 1 Capsule(s) PO QD No Start Date 09/10/2017 Inactive Mobic 15 mg tablet RxNorm: 250727 1 Tablet(s) PO on opposite days of Aleve No Start Date 11/20/2018 Inactive Bystolic 5 mg tablet RxNorm: 432533 1 Tablet(s) PO QD No Start Date 10/09/2012 Inactive Premarin 1.25 mg Tab RxNorm: 549412 1 Tablet(s) PO QD No Start Date 03/21/2010 Inactive clotrimazole-betamet hasone 1 %-0.05 % topical cream RxNorm: 416350 Application TOP BID to rash prn--was supposed to be cream not lotion No Start Date 12/19/2011 Inactive azithromycin 250 mg Tab RxNorm: 312714 2 Tablet(s) PO QD take 2 tablets (500 mg ) by oral route once daily for 1 day then 1 tablet (250 mg) by oral route once daily for 4 days No Start Date 06/06/2010 Inactive hydrocodone-acetamin ophen 5 mg-500 mg Tab RxNorm: 536254 1 Tablet(s) PO Q4-6H as needed for pain No Start Date 07/12/2011 Inactive Levbid 0.375 mg 12 h r Tab RxNorm: 9131083 1 Tablet(s) PO BID a s needed for stomach cramping No Start Date 11/21/2011 Inactive Phenergan 25 mg rect al suppository RxNorm: 049314 1 Suppository RTL Q4H as needed for nausea and vomiting No Start Date 07/19/2015 Inactive baclofen 10 mg tablet RxNorm: 405676 1 Tablet(s) PO QHS No Start Date 11/03/2014 Inactive loratadine 10 mg tablet RxNorm: 959018 1 Tablet(s) PO QD No Start Date 10/03/2018 Inactive famotidine 40 mg tablet RxNorm: 204473 1 Tablet(s) PO BID No Start Date 06/22/2016 Inactive Zithromax Z-Leonel 250 mg Tab RxNorm: 121446 Tablet(s) PO as directed No Start Date 11/15/2010 Inactive Singulair 10 mg tablet RxNorm: 973188 1 Tablet(s) PO QHS No Start Date 07/10/2017 Inactive Premarin 0.625 mg/g Vaginal Cream RxNorm: 821655 1 Gram(s) VAG QHS 2-3 times weekly No Start Date 01/05/2011 Inactive Alprazolam 0.25 mg Tab RxNorm: 013941 1 Tablet(s) PO TID No Start Date 03/09/2010 Inactive Claritin 10 mg tablet RxNorm: 535734 1 Tablet(s) PO QD No Start Date [...] 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 01/14/2011 shortness of breath 01/05/2011 urinary [...] Item Item Code Result Date GFR CALC 4136654 GFR AA >60 ML/MIN 01/14/2011 GFR CALC 2282204 GFR NON -AA >60 ML/MIN 01/14/2011 COMPREHENSIVE METABOLIC 65641 AST 15 U/L 01/14/2011 COMPREHENSIVE METABOLIC 00195 ALT 17 IU/L 01/14/2011 COMPREHENSIVE METABOLIC 69762 BUN 12 MG/DL 01/14/2011 COMPREHENSIVE METABOLIC 94181 ALBUMIN 4.0 GM/DL 01/14/2011 COMPREHENSIVE METABOLIC 16675 CHLORIDE 101 MMOL/L 01/14/2011 COMPREHENSIVE METABOLIC 01826 BILI TOT 0.3 MG/DL 01/14/2011 COMPREHENSIVE METABOLIC 17555 ALK PHOS 53 U/L 01/14/2011 COMPREHENSIVE METABOLIC 56965 SODIUM 136 MMOL/L 01/14/2011 COMPREHENSIVE METABOLIC 74057 CREATININE 0.60 MG/DL 01/14/2011 COMPREHENSIVE METABOLIC 21155 CALCIUM 9.3 MG/DL 01/14/2011 COMPREHENSIVE METABOLIC 45139 POTASSIUM 4.1 MMOL/L 01/14/2011 COMPREHENSIVE METABOLIC 10537 PROT TOT 7.0 GM/DL 01/14/2011 COMPREHENSIVE METABOLIC 74995 Glucose 92 MG/DL 01/14/2011 COMPREHENSIVE METABOLIC 89676 BICARB 27 MMOL/L 01/14/2011 COMPREHENSIVE METABOLIC 10700 ANION GAP 8 MEQ/L 01/14/2011 ERYTHROCYTE SEDIMENTATION RATE 92221 ESR 39 MM/HR 01/05/2011 COMPREHENSIVE METABOLIC 98662 AST 16 U/L 01/05/2011 COMPREHENSIVE METABOLIC 14187 ALT 19 U/L 01/05/2011 COMPREHENSIVE METABOLIC 33651 BUN 15 MG/DL 01/05/2011 COMPREHENSIVE METABOLIC 52315 ALBUMIN 3.8 GM/DL 01/05/2011 COMPREHENSIVE METABOLIC 48853 CHLORIDE 101 MMOL/L 01/05/2011 COMPREHENSIVE METABOLIC 22109 BILI TOT 0.3 MG/DL 01/05/2011 COMPREHENSIVE METABOLIC 96322 ALK PHOS 55 U/L 01/05/2011 COMPREHENSIVE METABOLIC 55840 SODIUM 139 MMOL/L 01/05/2011 COMPREHENSIVE METABOLIC 35984 CREATININE 0.59 MG/DL 01/05/2011 COMPREHENSIVE METABOLIC 20244 CALCIUM 8.9 MG/DL 01/05/2011 COMPREHENSIVE METABOLIC 94488 POTASSIUM 3.8 MMOL/L 01/05/2011 COMPREHENSIVE METABOLIC 65763 PROT TOT 6.7 GM/DL 01/05/2011 COMPREHENSIVE METABOLIC 36611 Glucose 121 MG/DL 01/05/2011 COMPREHENSIVE METABOLIC 32415 BICARB 28 MMOL/L 01/05/2011 COMPREHENSIVE METABOLIC 08385 ANION GAP 10 MMOL/L 01/05/2011 GFR CALC 3235022 GFR AA >60 ML/MIN 01/05/2011 GFR CALC 9870656 GFR NON -AA >60 ML/MIN 01/05/2011 COMPLETE BLOOD COUNT 03882 WBC 8.7 10e9/L 01/05/2011 COMPLETE BLOOD COUNT 12035 RBC 4.78 10e12/L 1 COMPLETE BLOOD COUNT 95065 HGB 13.3 g/dL 01/05/2011 COMPLETE BLOOD COUNT 29529 HCT DET 40.6 % 01/05/2011 COMPLETE BLOOD COUNT 29150 MCV 84.9 fL 01/05/2011 COMPLETE BLOOD COUNT 71784 MCH 27.8 pg 01/05/2011 COMPLETE BLOOD COUNT 48896 MCHC 32.8 g/dL 01/05/2011 COMPLETE BLOOD COUNT 25115 PLT 273 10e9/L 01/05/2011 COMPLETE BLOOD COUNT 81156 MPV 9.8 fL 01/05/2011 COMPLETE BLOOD COUNT 69495 AMANDA % 65.9 % 01/05/2011 COMPLETE BLOOD COUNT 44130 LY % 24.5 % 01/05/2011 COMPLETE BLOOD COUNT 79239 MON % 6.9 % 01/05/2011 COMPLETE BLOOD COUNT 66877 EOS % 2.1 % 01/05/2011 COMPLETE BLOOD COUNT 15048 BASO % 0.6 % 01/05/2011 COMPLETE BLOOD COUNT 00810 RDW 14.7 % 01/05/2011 COMPLETE BLOOD COUNT 26608 ABS AMANDA 5.73 10e9/L 01/05/2011 COMPLETE BLOOD COUNT 72041 ABS LYMPH 2.13 10e9/L 01/05/2011 COMPLETE BLOOD COUNT 24597 ABS MONO 0.60 10e9/L 01/05/2011 COMPLETE BLOOD COUNT 67157 ABS EOS 0.18 10e9/L 01/05/2011 COMPLETE BLOOD COUNT 34660 ABS BASO 0.05 10e9/L 01/05/2011 COMPLETE BLOOD COUNT 06601 RDW-SD 44.7 fL 01/05/2011 NO UA [id number] NO UA CANCELED 07/08/2010 Review of Systems [...] 11/21/2018 URINALYSIS NONAUTO W /O SCOPE CPT-4: 95233 11/01/2018 URINE CULTURE/ COLON Y COUNT CPT-4: 45994 11/01/2018 URINE CULTURE/ COLON Y COUNT CPT-4: 99131 06/13/2018 URINALYSIS NONAUTO W /O SCOPE CPT-4: 71148 05/31/2018 URINE CULTURE/ COLON Y COUNT CPT-4: 55582 05/31/2018 IIV4 VACCINE 3 YRS+ IM AND UP CPT-4: 18918 03/22/2018 IMMUNIZATION ADMIN CPT- 4: 83813 03/22/2018 TDAP VACCINE 7 YRS/> IM CPT-4: 47833 12/28/2017 IMMUNIZATION ADMIN CPT- 4: 22589 12/28/2017 SHINGRIX HZV VACC RE COMBINANT IM CPT-4: 05517 10/04/2017 IMMUNIZATION ADMIN CPT- 4: 32896 10/04/2017 IIV4 VACCINE 3 YRS+ IM AND UP CPT-4: 37294 03/28/2017 IMMUNIZATION ADMIN CPT- 4: 48191 03/28/2017 INFLUENZA ASSAY W/OPTIC CPT-4: 42351 09/12/2016 FLU VACCINE 3 YRS & > IM UP 64 CPT-4: 68009 04/22/2016 IMMUNIZATION ADMIN CPT- 4: 05265 04/22/2016 OCCULT BLOOD FECES CPT- 4: 09510 01/04/2016 THER/PROPH/DIAG INJ SC/IM CPT-4: 04329 07/20/2015 PROMETHAZINE HCL INJ ECTION CPT-4: J2550 07/20/2015 FLU VACCINE 3 YRS & > IM UP 64 CPT-4: 81664 03/09/2015 IMMUNIZATION ADMIN CPT- 4: 53505 03/09/2015 URINALYSIS NONAUTO W /O SCOPE CPT-4: 99755 07/10/2014 URINE CULTURE/ COLON Y COUNT CPT-4: 48150 07/10/2014 URINE CULTURE/ COLON Y COUNT CPT-4: 22009 07/14/2011 URINALYSIS NONAUTO W /O SCOPE CPT-4: 39594 07/14/2011 FLU VACCINE 3 YRS & > IM UP 64 CPT-4: 51422 06/28/2011 IMMUNIZATION ADMIN CPT- 4: 48354 06/28/2011 URINALYSIS NONAUTO W /O SCOPE CPT-4: 54550 03/23/2011 URINE CULTURE/ COLON Y COUNT CPT-4: 90195 03/23/2011 ROUTINE VENIPUNCTURE CPT-4: 13779 01/14/2011 COMPREHEN METABOLIC PANEL CPT-4: 86068 01/14/2011 ROUTINE VENIPUNCTURE CPT-4: 71990 01/05/2011 COMPLETE CBC W/AUTO DIFF WBC CPT-4: 54923 01/05/2011 RBC SED RATE AUTOMATED CPT-4: 05654 01/05/2011 COMPREHEN METABOLIC PANEL CPT-4: 77581 01/05/2011 URINALYSIS NONAUTO W /O SCOPE CPT-4: 90069 11/16/2010 URINE CULTURE/ COLON Y COUNT CPT-4: 17267 11/16/2010 DRAIN/INJECT JOINT/B URSA CPT-4: 80380 11/04/2010 TRIAMCINOLONE ACET I [place] NOS CPT-4: J3301 11/04/2010 METHYLPREDNISOLONE 8 0 MG INJ CPT-4: J1040 11/04/2010 URINALYSIS NONAUTO W /O SCOPE CPT-4: 96519 07/05/2010 URINE CULTURE/ COLON Y COUNT CPT-4: 48475 07/05/2010 URINALYSIS NONAUTO W /O SCOPE CPT-4: 66272 06/28/2010 URINE CULTURE/ COLON Y COUNT CPT-4: 83195 06/28/2010 URINALYSIS NONAUTO W /O SCOPE CPT-4: 85107 06/14/2010 URINE CULTURE/ COLON Y COUNT CPT-4: 72971 06/14/2010 URINE CULTURE/ COLON Y COUNT CPT-4: 62514 04/19/2010 OCCULT BLOOD FECES CPT- 4: 30056 04/12/2010 URINALYSIS NONAUTO W /O SCOPE CPT-4: 77148 04/08/2010 URINE CULTURE/ COLON Y COUNT CPT-4: 82874 04/08/2010 ASSAY, GLUCOSE, BLOO D QUANT CPT-4: 04719 03/09/2010 URINALYSIS NONAUTO W /O SCOPE CPT-4: 75814 03/09/2010 FLU VACCINE 3 YRS & > IM UP 64 CPT-4: 44120 03/09/2010 IMMUNIZATION ADMIN CPT- 4: 54475 03/09/2010 URINALYSIS NONAUTO W /O SCOPE CPT-4: 20353 09/29/2009 URINALYSIS NONAUTO W /O SCOPE CPT-4: 99745 08/12/2009 Vital Signs Date Vital 01/09/2019 Heart Rate 1: 100 bpm Respiratory Rate: 20 bpm SpO2: 98% Temperature: 36.8 (C ) / 98.2 (F) Weight: 162 lbs 11/21/2018 Blood Pressure 1: 130/70 Code: 8480-6 BMI: 29.6 Code: 22929-0 Heart Rate 1: 76 bpm Height: 5'2" [...] 1: 126/62 Code: 8480-6 BMI: 29.6 Code: 11828-1 Heart Rate 1: 88 bpm Height: 5'3" Respiratory Rate: 20 bpm Temperature: 36.8 (C ) / 98.3 (F) Weight: 167 lbs 05/31/2018 Blood Pressure 1: 140/80 Code: 8480-6 Heart Rate 1: 74 bpm Respiratory Rate: 16 bpm SpO2: 97% Temperature: 36.3 (C ) / 97.3 (F) Weight: 165 lbs 02/06/2018 Blood Pressure 1: 124/78 Code: 8480-6 BMI: 29.8 Code: 99477-4 Heart Rate 1: 84 bpm Height: 5'3" Respiratory Rate: 20 bpm SpO2: 97% Temperature: 36.6 (C ) / 97.8 (F) Weight: 168 lbs 12/18/2017 Blood Pressure 1: 116/78 Code: 8480-6 BMI: 29.6 Code: 57660-2 Heart Rate 1: 88 bpm Height: 5'3" Respiratory Rate: 20 bpm Temperature: 36.6 (C ) / 97.9 (F) Weight: 167 lbs 12/11/2017 Blood Pressure 1: 122/76 Code: 8480-6 Heart Rate 1: 78 bpm 09/11/2017 Blood Pressure 1: 126/82 Code: 8480-6 BMI: 29.1 Code: 22571-1 Heart Rate 1: 68 bpm Height: 5'3" Respiratory Rate: 20 bpm SpO2: 96% Temperature: 36.6 (C ) / 97.9 (F) Weight: 164 lbs 03/28/2017 Blood Pressure 1: 114/64 Code: 8480-6 BMI: 27.8 Code: 35247-9 Heart Rate 1: 76 bpm Height: 5'3" Respiratory Rate: 20 bpm SpO2: 98% Temperature: 36.4 (C ) / 97.6 (F) Weight: 157 lbs 09/12/2016 Blood Pressure 1: 126/70 Code: 8480-6 BMI: 29.9 Code: 21392-4 Heart Rate 1: 92 bpm Height: 5'3" Respiratory Rate: 20 bpm SpO2: 97% Temperature: 37.0 (C ) / 98.6 (F) Weight: 168 lbs 9 oz 07/28/2016 Blood Pressure 1: 128/74 Code: 8480-6 Heart Rate 1: 92 bpm Respiratory Rate: 24 bpm SpO2: 96% Temperature: 36.4 (C ) / 97.6 (F) Weight: 168 lbs 04/26/2016 Blood Pressure 1: 116/74 Code: 8480-6 BMI: 29.9 Code: 65211-5 Heart Rate 1: 92 bpm Height: 5'3" Respiratory Rate: 20 bpm Temperature: 36.9 (C ) / 98.4 (F) Weight: 169 lbs 12/09/2015 Blood Pressure 1: 116/72 Code: 8480-6 BMI: 31.7 Code: 16038-3 Heart Rate 1: 80 bpm Height: 5'3" Respiratory Rate: 20 bpm Temperature: 36.6 (C ) / 97.9 (F) Weight: 179 lbs 09/10/2015 Blood Pressure 1: 122/78 Code: 8480-6 BMI: 32.2 Code: 10289-0 Heart Rate 1: 88 bpm Height: 5'3" Respiratory Rate: 20 bpm Temperature: 37.3 (C ) / 99.1 (F) Weight: 182 lbs 04/23/2015 Blood Pressure 1: 126/70 Code: 8480-6 BMI: 31.2 Code: 40355-4 Heart Rate 1: 92 bpm Height: 5'3" Respiratory Rate: 20 bpm Temperature: 36.8 (C ) / 98.2 (F) Weight: 176 lbs 03/24/2015 Blood Pressure 1: 126/78 Code: 8480-6 BMI: 31.2 Code: 89526-1 Heart Rate 1: 80 bpm Height: 5'3" Respiratory Rate: 22 bpm Temperature: 36.1 (C ) / 96.9 (F) Weight: 176 lbs 03/05/2015 Blood Pressure 1: 132/80 Code: 8480-6 BMI: 31.5 Code: 17924-3 Heart Rate 1: 92 bpm Height: 5'2" Respiratory Rate: 20 bpm Temperature: 36.4 (C ) / 97.6 (F) Weight: 175 lbs 02/19/2015 Blood Pressure 1: 134/80 Code: 8480-6 BMI: 31.5 Code: 39308-0 Heart Rate 1: 88 bpm Height: 5'2" Respiratory Rate: 20 bpm Temperature: 36.7 (C ) / 98.0 (F) Weight: 175 lbs 12/25/2014 Blood Pressure 1: 122/80 Code: 8480-6 BMI: 31.0 Code: 24381-0 Heart Rate 1: 88 bpm Height: 5'2" Respiratory Rate: 20 bpm Temperature: 36.6 (C ) / 97.8 (F) Weight: 172 lbs 11/26/2014 Blood Pressure 1: 116/68 Code: 8480-6 BMI: 30.2 Code: 40359-2 Heart Rate 1: 76 bpm Height: 5'2" Respiratory Rate: 20 bpm Temperature: 36.5 (C ) / 97.7 (F) Weight: 168 lbs 11/04/2014 Blood Pressure 1: 116/64 Code: 8480-6 BMI: 30.8 Code: 89686-7 Heart Rate 1: 92 bpm Height: 5'2" Respiratory Rate: 20 bpm Temperature: 36.7 (C ) / 98.1 (F) Weight: 171 lbs 09/01/2014 Blood Pressure 1: 130/82 Code: 8480-6 BMI: 30.6 Code: 63927-7 Heart Rate 1: 92 bpm Height: 5'2" Respiratory Rate: 20 bpm Temperature: 36.9 (C ) / 98.4 (F) Weight: 170 lbs 06/02/2014 Blood Pressure 1: 126/80 Code: 8480-6 BMI: 30.2 Code: 08952-2 Heart Rate 1: 88 bpm Height: 5'2" Respiratory Rate: 20 bpm Temperature: 36.7 (C ) / 98.1 (F) Weight: 168 lbs 05/26/2014 Blood Pressure 1: 132/78 Code: 8480-6 Heart Rate 1: 74 bpm 04/08/2014 Blood Pressure 1: 156/94 Code: 8480-6 BMI: 30.2 Code: 54051-8 Heart Rate 1: 96 bpm Height: 5'2" Respiratory Rate: 20 bpm Temperature: 37.1 (C ) / 98.7 (F) Weight: 168 lbs 03/05/2014 Blood Pressure 1: 144/86 Code: 8480-6 BMI: 29.9 Code: 59422-9 Heart Rate 1: 100 bpm Height: 5'2" Respiratory Rate: 20 bpm Temperature: 36.7 (C ) / 98.1 (F) Weight: 166 lbs 07/29/2013 Blood Pressure 1: 124/80 Code: 8480-6 Heart Rate 1: 92 bpm Respiratory Rate: 20 bpm Temperature: 36.2 (C) / 97.2 (F) Weight: 167 lbs 03/20/2013 Blood Pressure 1: 116/84 Code: 8480-6 BMI: 30.8 Code: 69910-7 Heart Rate 1: 96 bpm Height: 5'3" Respiratory Rate: 20 bpm Temperature: 36.6 (C ) / 97.8 (F) Weight: 174 lbs 02/12/2013 Blood Pressure 1: 122/80 Code: 8480-6 BMI: 30.5 Code: 16093-4 Heart Rate 1: 112 bpm Height: 5'3" Respiratory Rate: 20 bpm Temperature: 36.9 (C ) / 98.4 (F) Weight: 172 lbs 11/05/2012 BMI: 31.2 Code: 95235-0 Height: 5'3" Weight: 176 lbs 10/04/2012 Heart Rate 1: 84 bpm Height: 5'3" Respiratory Rate: 20 bpm Temperature: 36.8 (C ) / 98.3 (F) Weight: 09/24/2012 Blood Pressure 1: 122/88 Code: 8480-6 BMI: 30.8 Code: 18235-2 Heart Rate 1: 80 bpm Height: 5'3" Respiratory Rate: 20 bpm Temperature: 36.8 (C ) / 98.2 (F) Weight: 174 lbs 05/10/2012 Blood Pressure 1: 124/68 Code: 8480-6 BMI: 30.1 Code: 18687-1 Heart Rate 1: 64 bpm Height: 5'3" Temperature: 36.6 (C ) / 97.8 (F) Weight: 170 lbs 03/07/2012 Blood Pressure 1: 132/78 Code: 8480-6 BMI: 29.2 Code: 38792-8 Heart Rate 1: 92 bpm Height: 5'3" Respiratory Rate: 20 bpm Temperature: 36.7 (C ) / 98.1 (F) Weight: 165 lbs 02/01/2012 Blood Pressure 1: 116/78 Code: 8480-6 BMI: 29.1 Code: 45037-6 Heart Rate 1: 84 bpm Height: 5'3" Respiratory Rate: 20 bpm Temperature: 36.8 (C ) / 98.2 (F) Weight: 164 lbs 12/20/2011 Blood Pressure 1: 128/80 Code: 8480-6 BMI: 29.1 Code: 82332-9 Heart Rate 1: 88 bpm Height: 5'3" Respiratory Rate: 20 bpm Temperature: 36.4 (C ) / 97.6 (F) Weight: 164 lbs 11/22/2011 Blood Pressure 1: 104/60 Code: 8480-6 BMI: 28.5 Code: 28322-3 Heart Rate 1: 78 bpm Height: 5'3" Temperature: 36.6 (C ) / 97.9 (F) Weight: 161 lbs 07/11/2011 Blood Pressure 1: 118/72 Code: 8480-6 BMI: 30.6 Code: 44352-8 Heart Rate 1: 92 bpm Height: 5'3" Respiratory Rate: 20 bpm Temperature: 36.8 (C ) / 98.2 (F) Weight: 173 lbs 07/06/2011 Blood Pressure 1: 126/80 Code: 8480-6 BMI: 31.0 Code: 69349-6 Heart Rate 1: 88 bpm Height: 5'3" Respiratory Rate: 20 bpm Temperature: 36.7 (C ) / 98.1 (F) Weight: 175 lbs 05/26/2011 Blood Pressure 1: 100/78 Code: 8480-6 BMI: 31.0 Code: 23566-0 Heart Rate 1: 74 bpm Height: 5'3" Temperature: 36.4 (C ) / 97.6 (F) Weight: 175 lbs 05/16/2011 Blood Pressure 1: 116/80 Code: 8480-6 BMI: 31.0 Code: 33295-7 Heart Rate 1: 88 bpm Height: 5'3" Respiratory Rate: 20 bpm Temperature: 36.8 (C ) / 98.2 (F) Weight: 175 lbs 05/05/2011 Blood Pressure 1: 126/80 Code: 8480-6 BMI: 30.6 Code: 34078-9 Heart Rate 1: 96 bpm Height: 5'3" Respiratory Rate: 20 bpm Temperature: 36.4 (C ) / 97.6 (F) Weight: 173 lbs 04/05/2011 Blood Pressure 1: 144/90 Code: 8480-6 BMI: 30.1 Code: 17216-2 Heart Rate 1: 92 bpm Height: 5'3" Respiratory Rate: 20 bpm Temperature: 36.6 (C ) / 97.8 (F) Weight: 170 lbs 03/02/2011 Blood Pressure 1: 136/94 Code: 8480-6 Heart Rate 1: 92 bpm Temperature: 36.6 (C) / 97.8 (F) Weight: 171 lbs 01/05/2011 Blood Pressure 1: 132/86 Code: 8480-6 BMI: 30.6 Code: 86943-5 Heart Rate 1: 98 bpm Height: 5'3" [...] 1: 122/68 Code: 8480-6 BMI: 29.8 Code: 60524-1 Height: 5'3" Temperature: 36.3 (C ) / [...] 1: 142/90 Code: 8480-6 BMI: 30.5 Code: 43884-1 Heart Rate 1: 96 bpm Height: 5'3" [...] seat belt use 11/21/2018 None Lifestyle satisfactory work/residential experience 11/21/2018 None Lifestyle normal sleep patterns [...] Guidance hormon e replacement therapy 11/21/2018 None Breast/Rn Traveling Complaints urinary incontinence 11/21/2018 stress Quality chronic [...] Quality discomfort 08/06/2018 None Location in the community relations coordinator ior area 08/06/2018 None Quality stiffness 08/06/2018 [...] 02/06/2018 Current A1c is 5.5 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 04/26/2016 [employer]ULT [employer] recommended stopping pantoprazole due to side effect [...] ago 01/05/2011 None varicose veins Quality a lfores/cramping 01/05/2011 None myalgias Quality acute 11/16/2010 knot [...] Encounters Encounter Performer Loca tion Codes Date ([id number]) OFFICE/OUTPA TIENT VISIT EST Diagnosis: Left lower quadrant pain[ICD10: R10.32] Yaima TAYLOR We CPT-4: 55334 01/09/2019 ([id number]) NURSE/OUTPAT IENT VISIT EST Diagnosis: Hematuria, unspecified[ICD10: R31.9] Yaima TAYLOR We CPT-4: 60909 11/01/2018 ([id number]) OFFICE/OUTPA TIENT VISIT EST Diagnosis: Hypothyroidism, unspecified[ICD10: E03.9] Diagnosis: Other fatigue[ICD10: R53.83] Diagnosis: Other cervical disc degeneration, unspecified cervical region[ICD10: M50.30] Yaima JOHNSON We CPT-4: 24726 10/04/2018 ([id number]) OFFICE/OUTPA TIENT VISIT EST Diagnosis: Hypothyroidism, unspecified[ICD10: E03.9] Diagnosis: Impaired fasting glucose[ICD10: R73.01] Diagnosis: Cervicalgia[ICD10: M54.2] Yaima JOHNSON [facility] CPT-4: 20346 08/06/2018 ([id number]) OFFICE/OUTPA TIENT VISIT EST Diagnosis: Radiculopathy, lumbosacral region[ICD10: M54.17] Diagnosis: Abrasion, left lower leg, sequela[ICD10: S80.812S] Yaima TAYLOR [facility] CPT-4: 24148 06/21/2018 ([id number]) NURSE/OUTPAT IENT VISIT EST Diagnosis: Urinary tract infection, site not specified[ICD10: N39.0] Yaima JOHNSON [facility] CPT-4: 30312 06/13/2018 ([id number]) OFFICE/OUTPA TIENT VISIT EST Diagnosis: Other dorsalgia[ICD10: M54.89] Jane JOHNSON [facility] CPT-4: 47051 05/31/2018 ([id number]) NURSE/OUTPAT IENT VISIT EST Diagnosis: FLU VACCINE[ICD10: Z23] Yaima JOHNSON [facility] CPT-4: 60360 03/22/2018 ([id number]) OFFICE/OUTPA TIENT VISIT EST Diagnosis: Hypothyroidism, unspecified[ICD10: E03.9] Diagnosis: Essential (primary) hypertension[ICD10: I10] Diagnosis: Other seasonal allergic rhinitis[ICD10: J30.2] Yaima TAYLOR [facility] CPT-4: 07386 02/06/2018 ([id number]) NURSE/OUTPAT IENT VISIT EST Diagnosis: Laceration of blood vessel of right index finger, initial encounter[ICD10: S65.510A] Diagnosis: VACCINE FOR TDAP[ICD10: Z23] Yaima JOHNSON [facility] CPT-4: 04661 12/28/2017 ([id number]) OFFICE/OUTPA TIENT VISIT EST Diagnosis: Tinnitus, bilateral[ICD10: H93.13] Yaima TAYLOR [facility] CPT-4: 07466 12/18/2017 ([id number]) NURSE/OUTPAT IENT VISIT EST Diagnosis: VACCIN FOR DISEASE NEC (HPV or Zostavax)[ICD10: Z23] [facility] CPT-4: 98994 10/04/2017 OFFICE/OUTPATIENT SIT EST Diagnosis: Hypothyroidism, unspecified[ICD10: E03.9] Diagnosis: Essential (primary) hypertension[ICD10: I10] Diagnosis: Gastro-esophageal reflux disease without esophagitis[ICD10: K21.9] Diagnosis: Pain in right knee[ICD10: M25.561] Diagnosis: Hyperglycemia, unspecified[ICD10: R73.9] Yaima Elizabeth MCCORMACKLINE Jw [facility] CPT-4: 56578 09/11/2017 ([id number]) OFFICE/OUTPA TIENT VISIT EST Diagnosis: Cervicalgia[ICD10: M54.2] Diagnosis: Hypothyroidism, unspecified[ICD10: E03.9] Diagnosis: Essential (primary) hypertension[ICD10: I10] Diagnosis: Irritant contact dermatitis, unspecified cause[ICD10: L24.9] Diagnosis: FLU VACCINE[ICD10: Z23] Yaima Elizabeth YAIMA Jw [facility] CPT-4: 96730 03/28/2017 ([id number]) OFFICE/OUTPA TIENT VISIT EST Diagnosis: Influenza due to identified novel influenza A virus with other manifestations[ICD10: J09.X9] Yaima Elizabeth YAIMA Jw [facility] CPT-4: 25058 09/12/2016 ([id number]) OFFICE/OUTPA TIENT VISIT EST Diagnosis: Dermatitis, unspecified[ICD10: L30.9] Diagnosis: Pain in right knee[ICD10: M25.561] Yaima Josuejuliannicole YAIMA Jw [facility] CPT-4: 57040 07/28/2016 ([id number]) OFFICE/OUTPA TIENT VISIT EST Diagnosis: Incisional hernia without obstruction or gangrene[ICD10: K43.2] Diagnosis: Gastro-esophageal reflux disease without esophagitis[ICD10: K21.9] Diagnosis: Radiculopathy, lumbosacral region[ICD10: M54.17] Yaima TAYLOR DO [facility] CPT-4: 47213 04/26/2016 ([id number]) OFFICE/OUTPA TIENT VISIT EST Diagnosis: FLU VACCINE[ICD10: Z23] Yaima JOHNSON DO [facility] [facility] [employer] CPT-4: 35840 04/22/2016 ([id number]) OFFICE/OUTPA TIENT VISIT EST Diagnosis: Other fecal abnormalities[ICD10: R19.5] Yaima TAYLOR DO [facility] [facility] [employer] CPT-4: 30327 01/04/2016 ([id number]) OFFICE/OUTPA TIENT VISIT EST 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] Diagnosis: Other specified diseases of liver[ICD10: K76.89] Diagnosis: Irritant contact dermatitis due to detergents[ICD10: L24.0] Yaima JOHNSON DO [facility] [employer] CPT-4: 06483 12/09/2015 ([id number]) OFFICE/OUTPA TIENT VISIT EST Diagnosis: Pain in thoracic spine[ICD10: M54.6] Diagnosis: Radiculopathy, lumbosacral region[ICD10: M54.17] Diagnosis: Precordial pain[ICD10: R07.2] Yaima JOHNSON DO [facility] CPT-4: 29998 09/10/2015 ([id number]) OFFICE/OUTPA TIENT VISIT EST Diagnosis: Nausea[ICD10: R11.0] Yaima JOHNSON DO [facility] CPT-4: 90182 07/20/2015 ([id number]) OFFICE/OUTPA TIENT VISIT EST Diagnosis: Pain in left elbow[ICD10: M25.522] Diagnosis: Contusion of left lower leg, sequela[ICD10: S80.12XS] Diagnosis: Pleurodynia[ICD10: R07.81] Yaima JOHNSON DO [employer] CPT-4: 05413 04/23/2015 ([id number]) OFFICE/OUTPA TIENT VISIT EST Diagnosis: Unspecified abdominal pain[ICD10: R10.9] Diagnosis: Ventral hernia without obstruction or gangrene[ICD10: K43.9] Diagnosis: Constipation, unspecified[ICD10: K59.00] Yaima TAYLOR [facility] CPT-4: 41222 03/24/2015 ([id number]) OFFICE/OUTPA TIENT VISIT EST Diagnosis: FLU VACCINE[ICD10: Z23] Yaima JOHNSON DO [facility] CPT-4: 48863 03/09/2015 ([id number]) OFFICE/OUTPA TIENT VISIT EST 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] Diagnosis: Generalized abdominal pain[ICD10: R10.84] Yaima TAYLOR [facility] CPT-4: 44033 03/05/2015 OFFICE/OUTPATIENT SIT EST Diagnosis: ABDOMINAL PAIN[ICD9: 789.00] Diagnosis: HYPOTHYROIDISM[ICD9: 244.9] Diagnosis: HYPERTENSION[ICD9: 401.9] Diagnosis: DIVERTICULITIS, COLONIC[ICD9: 562.11] Diagnosis: DISTURBANCE OF SKIN SENSATION (Paresthesia)[ICD9: 782.0] Yaima JOHNSON [facility] CPT-4: 60201 02/19/2015 ([id number]) OFFICE/OUTPA TIENT VISIT EST Diagnosis: HYPOTHYROIDISM[ICD9: 244.9] Diagnosis: Diaphoresis[ICD9: 780.8] Yaima JOHNSON [facility] CPT-4: 98750 12/25/2014 ([id number]) OFFICE/OUTPA TIENT VISIT EST Diagnosis: ABDOMINAL PAIN[ICD9: 789.00] Diagnosis: PAIN, LOWER BACK[ICD9: 724.2] Diagnosis: Contusion of leg[ICD9: 924.5] Yaima JOHNSON [facility] CPT-4: 72353 11/26/2014 ([id number]) OFFICE/OUTPA TIENT VISIT EST Diagnosis: IBS[ICD9: 564.1] Diagnosis: GERD[ICD9: 530.81] Yaima JOHNSON [facility] CPT-4: 38925 11/04/2014 ([id number]) OFFICE/OUTPA TIENT VISIT EST Diagnosis: Headache[ICD9: 784.0] Diagnosis: Leg pain[ICD9: 729.5] Yaima JOHNSON DO [facility] CPT-4: 68931 09/01/2014 ([id number]) OFFICE/OUTPA TIENT VISIT EST Diagnosis: DYSURIA[ICD9: 788.1] Yaima JOHNSON DO [facility] CPT-4: 13601 07/10/2014 OFFICE/OUTPATIENT SIT EST Diagnosis: VAGINITIS[ICD9: 623.5] Diagnosis: SINUSITIS, ACUTE[ICD9: 461.9] Yaima JOHNSON [facility] CPT-4: 23042 06/02/2014 ([id number]) OFFICE/OUTPA TIENT VISIT EST Diagnosis: HYPERTENSION[ICD9: 401.9] Diagnosis: ALLERGIC RHINITIS[ICD9: 477.9] Diagnosis: PAIN, LOWER BACK[ICD9: 724.2] Yaima JOHNSON [facility] CPT-4: 41455 04/08/2014 ([id number]) OFFICE/OUTPA TIENT VISIT EST Diagnosis: COUGH[ICD10: R05] Diagnosis: Thoracic back pain[ICD9: 724.1] Yaima [facility] CPT-4: 21446 03/05/2014 ([id number]) OFFICE/OUTPA TIENT VISIT EST Diagnosis: SINUSITIS, ACUTE[ICD9: 461.9] Diagnosis: BRONCHITIS, ACUTE[ICD9: 466.0] Yaima JOHNSON [facility] CPT-4: 10866 07/29/2013 ([id number]) OFFICE/OUTPA TIENT VISIT EST Diagnosis: ABDOMINAL PAIN[ICD9: 789.00] Diagnosis: Constipation[ICD9: 564.00] Diagnosis: DIVERTICULITIS, COLONIC[ICD9: 562.11] Yaima TAYLOR [facility] CPT-4: 87806 03/20/2013 ([id number]) OFFICE/OUTPA TIENT VISIT EST Diagnosis: Plantar fasciitis[ICD9: 728.71] Diagnosis: ALLERGIC RHINITIS[ICD9: 477.9] Yaima JOHNSON [facility] CPT-4: 50217 02/12/2013 OFFICE/OUTPATIENT SIT EST Diagnosis: Skin lesion[ICD9: 709.9] Diagnosis: Lumbar back pain[ICD9: 724.2] Diagnosis: Muscle spasm[ICD9: 728.85] Diagnosis: Hypothyroid[ICD9: 244.9] Yaima JOHNSON DO [facility] CPT-4: 90969 11/05/2012 ([id number]) OFFICE/OUTPA TIENT VISIT EST Diagnosis: Cervicalgia[ICD9: 723.1] Diagnosis: Thoracic back pain[ICD9: 724.1] Diagnosis: SPASM OF MUSCLE[ICD9: 728.85] Yaima JOHNSON DO [facility] CPT-4: 16720 10/04/2012 ([id number]) OFFICE/OUTPA TIENT VISIT EST Diagnosis: MALAISE AND FATIGUE[ICD9: 780.79] Diagnosis: HYPOTHYROIDISM[ICD9: 244.9] Diagnosis: HYPERTENSION[ICD9: 401.9] Yaima JOHNSON [facility] CPT-4: 14657 09/24/2012 ([id number]) OFFICE/OUTPA TIENT VISIT EST Diagnosis: Lateral epicondylitis[ICD9: 726.32] Diagnosis: Wrist pain[ICD9: 719.43] Diagnosis: Numbness and tingling in right hand[ICD9: 782.0] Yaima TAYLOR [facility] CPT-4: 43037 05/10/2012 OFFICE/OUTPATIENT SIT EST Diagnosis: MALAISE AND FATIGUE[ICD9: 780.79] Diagnosis: HYPOTHYROIDISM[ICD9: 244.9] Diagnosis: Enthesopathy of the wrist and carpus[ICD9: 726.4] Diagnosis: Foot pain[ICD9: 729.5] Diagnosis: DYSPHAGIA NEC[ICD9: 787.29] Yaima JOHNSON [facility] CPT-4: 57780 03/07/2012 ([id number]) OFFICE/OUTPA TIENT VISIT EST Diagnosis: HYPOTHYROIDISM[ICD9: 244.9] Yaima JOHNSON [facility] CPT-4: 62203 02/01/2012 ([id number]) OFFICE/OUTPA TIENT VISIT EST Diagnosis: MALAISE AND FATIGUE[ICD9: 780.79] Diagnosis: HYPOTHYROIDISM[ICD9: 244.9] Yaima JOHNSON [facility] CPT-4: 51960 12/20/2011 OFFICE/OUTPATIENT SIT EST Diagnosis: INSECT BITE HIP/LEG[ICD9: 916.4] Lizzette JOHNSON [facility] CPT-4: 11568 11/22/2011 OFFICE/OUTPATIENT SIT EST Diagnosis: HEMATURIA NOS[ICD9: 599.70] Yaima JOHNSON [facility] CPT-4: 70829 07/14/2011 OFFICE/OUTPATIENT SIT EST Diagnosis: URINARY TRACT INFECTION[ICD9: 599.0] Diagnosis: DIVERTICULITIS, COLONIC[ICD9: 562.11] Yaima TAYLOR [facility] CPT-4: 09489 07/11/2011 OFFICE/OUTPATIENT SIT EST Diagnosis: TMJ arthritis[ICD9: 524.69] Diagnosis: MIGRAINE NOS/NOT INTRCBL[ICD9: 346.90] Diagnosis: Rectal fissure[ICD9: 565.0] Yaima JOHNSON [facility] CPT-4: 68282 07/06/2011 OFFICE/OUTPATIENT SIT EST Diagnosis: SPASM OF MUSCLE[ICD9: 728.85] Diagnosis: PAIN, LOWER BACK[ICD9: 724.2] Yaima JOHNSON [facility] CPT-4: 17373 05/26/2011 OFFICE/OUTPATIENT SIT EST Diagnosis: PAIN, LOWER BACK[ICD9: 724.2] Diagnosis: SPASM OF MUSCLE[ICD9: 728.85] Yaima JOHNSON [facility] CPT-4: 90332 05/16/2011 OFFICE/OUTPATIENT SIT EST Diagnosis: PAIN, LOWER BACK[ICD9: 724.2] Diagnosis: ENTHESOPATHY OF HIP[ICD9: 726.5] Diagnosis: Onychomycosis[ICD9: 110.1] Yaima MCWILLIAMSNDER [facility] CPT-4: 42065 05/05/2011 OFFICE/OUTPATIENT SIT EST Diagnosis: Diverticulitis[ICD9: 562.11] Yaima JOHNSON DO [facility] CPT-4: 80871 04/05/2011 OFFICE/OUTPATIENT SIT EST Diagnosis: CHEST PAIN NOS[ICD9: 786.50] Diagnosis: PALPITATIONS[ICD9: 785.1] Diagnosis: Pulmonary arterial hypertension[ICD9: 416.8] Yaima MCWILLIAMS NDER DO [facility] CPT-4: 15667 03/02/2011 OFFICE/OUTPATIENT SIT EST Yaima SAMUELS SRobin MCWILLIAMS N[facility] CPT-4: 34264 01/05/2011 ([id number]) OFFICE/OUTPA TIENT VISIT EST Yaima SAMUELS S. [facility]RE N[facility] CPT-4: 14268 11/16/2010 ([id number]) OFFICE/OUTPA TIENT VISIT EST Yaima SAMUELS [facility]. [facility] CPT-4: 49522 11/04/2010 ([id number]) OFFICE/OUTPA TIENT VISIT EST Yaima SAMUELS S. [facility] CPT-4: 37822 08/05/2010 ([id number]) OFFICE/OUTPA TIENT VISIT EST Yaima SAMUELS S. [facility] CPT-4: 29651 07/23/2010 ([id number]) OFFICE/OUTPA TIENT VISIT, EST Yaima SAMUELS S[facility] CPT-4: 29318 06/07/2010 ([id number]) OFFICE/OUTPA TIENT VISIT, EST Yaima SAMUELS S. [facility] CPT-4: 34250 05/12/2010 ([id number]) OFFICE/OUTPA TIENT VISIT, EST [facility] CPT-4: 28781 04/27/2010 ([id number]) OFFICE/OUTPA TIENT VISIT, EST [facility] CPT-4: 05757 04/19/2010 ([id number]) OFFICE/OUTPA TIENT VISIT, EST Yaima [facility] CPT-4: 18932 03/09/2010 ([id number]) OFFICE/OUTPA TIENT VISIT, EST Yaima [facility] CPT-4: 79262 01/04/2010 ([id number]) OFFICE/OUTPA TIENT VISIT, EST [facility] CPT-4: 28407 12/14/2009 ([id number]) OFFICE/OUTPA TIENT VISIT, EST Lizzette [facility] CPT-4: 48549 11/23/2009 Plan of Care Planned Activity Notes C odes Status Date Visit Diagnosis Plan: Left lower quadrant pain Discussion: Appears to have a hernia so did discuss surgical evaluation ICD-9 : 789.04 ICD-10 : R10.32 01/09/2019 Visit Diagnosis Plan: Encounter for [facility] adult medical examination without abnormal findings [...] Z00.00 11/21/2018 [facility]ment[facility] [phone] [facility] [facility] 11/21/2018 Care Plan: Referral Order SNOMED-CT : [id number] Pending 11/21/2018 Appointment: [facility] [phone] [facility] [facility] 11/01/2018 Visit Diagnosis Plan: Other cervical dis c degeneration, unspecified cervical region Discussion: MRI results discussed fwup w [facility] Dr. Johnson ICD-9 : 722.4 ICD-10 : M50.30 10/04/2018 Visit Diagnosis Plan: Hypothyroidism, unspecified Discussion: Restart synthroid at 50mcg daily and recheck lab in 3mos ICD-9 : 244.9 ICD-10 : E03.9 10/04/2018 Appointment: [facility] [phone] [facility] [facility] FOLLOW [facility] 10/04/2018 Care Plan: Referral Order SNOMED-CT : [id number] Pending 10/04/2018 Visit Diagnosis Plan: Hypothyroidism, unspecified [...] M54.2 08/06/2018 Appointment: [facility]el[facility] [phone] [facility] [facility]are annual! FOLLOW UP 08/06/2018 Patient Education: levothyroxine- Optimize[employer] Coupon 59 [id number] [email or web address] Completed 08/06/2018 Visit Diagnosis Plan: Radiculopathy, lumbosacral regio n Discussion: Daily stretches and see if improves--low dose gabapentin trial q HS if does not improve Lab and fwup in 3mos ICD-9 : 724.4 ICD-10 : M54.17 06/21/2018 Visit Diagnosis Plan: Abrasion, left lower leg, sequel a Discussion: Vitamin E topically for scarring/dryness ICD-9 : 906.2 ICD-10 : S80.812S 06/21/2018 Appointment: Yaima Johnson WPtel: [address] [place] [address] ACUTE ILLNESS 06/21/2018 Appointment: Yaima Johnson WPtel: [address] [place] [address] UA 06/13/2018 Visit Diagnosis Plan: Other dorsalgia [...] ICD-10 : M54.89 05/31/2018 Appointment: Jane Nettles [address] [place] [address] ACUTE ILLNESS 05/31/2018 Appointment: Yaima Johnson WPtel: [address] [place] [address] INJECTION 03/22/2018 Patient Education: Patient Medication Summary Completed 03/22/2018 Patient Education: INFLUENZA VACCINE CDC Completed 03/22/2018 Appointment: Yaima Johnson WPtel: [address] [place] [address] RESCHEDULED 02/14/2018 Visit Diagnosis Plan: Other seasonal [...] : E03.9 02/06/2018 Appointment: Yaima Johnson WPtel: [address] [place], [place] [phone] [place] FOLLOW UP 02/06/2018 Patient Education: Patient Medication Summary Completed 02/06/2018 Appointment: Yaima Johnson WPtel: [address] [place], [place] [phone] [place] INJECTION 12/28/2017 Patient Education: Patient Medication Summary Completed 12/28/2017 Appointment: Yaima Johnson WPtel: [address] [place], [place] [phone] [place] RESCHEDULED 12/25/2017 Visit Diagnosis Plan: Tinnitus, bilateral Discussion: See ENT for hearing eval and further workup ICD-9 : 388.31 ICD-10 : H93.13 12/18/2017 Appointment: Yaima Johnson WPtel: [address] [place] [address] ACUTE ILLNESS 12/18/2017 Patient Education: Patient Medication Summary Completed 12/18/2017 Patient Education: Tinnitus Completed 12/18/2017 Care Plan: Referral Order SNOMED-CT : [id number] Pending 12/18/2017 Appointment: Yaima Johnson WPtel: [address] [place] [address] BP CHECK 12/11/2017 Patient Education: Patient Medication Summary Completed 12/11/2017 Referral: Danyel Hernandez WPtel: [facility] [address] Referral Initiated 10/11/2017 Appointment: Yaima Johnson WPtel: [address] [place], [place] [phone] [place] INJECTION 10/04/2017 Patient Education: Patient Medication [...] M25.561 09/11/2017 Appointment: Yaima Johnson WPtel: [phone] [facility] FOLLOW UP 09/11/2017 Patient Education: Patient Medication Summary Completed 09/11/2017 Appointment: Jane Nettles [address] [place], [place] [id number] 08/28/17 5569---issue addressed in phone message (km) CANCELED 08/29/2017 Patient Education: Patient Medication Summary Completed 07/11/2017 Care Plan: A1C HPLC LO INC : 38537-5 Pending 07/11/2017 Care Plan: ASSAY OF FREE THYROXINE Pending 07/11/2017 Care Plan: ASSAY THYROID STIM HORMONE Pending 07/11/2017 Care Plan: COMPLETE CBC W/AUTO DIFF WBC LOINC : 63204-2 Pending 07/11/2017 Care Plan: COMPREHEN METABOLIC PANEL LOINC : 81636-1 Pending 07/11/2017 Visit Diagnosis Plan: Irritant contact [...] M54.2 03/28/2017 Appointment: Yaima Johnson WPtel: [phone] [facility] ACUTE ILLNESS 03/28/2017 Patient Education: Patient Medication Summary Completed 03/28/2017 Patient Education: Patient Medication Summary Completed 02/17/2017 Care Plan: ASSAY OF FREE THYROXINE Pending 02/17/2017 Care Plan: ASSAY THYROID STIM HORMONE Pending 02/17/2017 Care Plan: A1C HPLC LO INC : 34096-5 Pending 02/17/2017 Patient Education: Patient Medication Summary Completed 11/23/2016 Care Plan: A1C HPLC LO INC : 98492-0 Pending 11/23/2016 Patient Education: Patient Medication Summary Completed 11/22/2016 Care Plan: COMPREHEN METABOLIC PANEL LOINC : 62319-2 Pending 11/22/2016 Care Plan: ASSAY THYROID STIM [...] Tyle... 09/12/2016 Appointment: [facility] [phone] [facility] [facility] 09/12/2016 Patient Education: Patient Medication Summary Completed 09/12/2016 Visit Diagnosis Plan: Pain in right knee Discussion: MRI of right knee scheduled for this weekend by ortho ICD-9 : 719.46 ICD-10 : M25.561 07/28/2016 Visit Diagnosis Plan: Dermatitis, unspecified Discussion: Use clotrimazole/betamethasone BID to hand rash ICD-9 : 692.9 ICD-10 : L30.9 07/28/2016 Appointment: Yaima Johnson WPtel: [address] [place], [place] [phone] 07/27 confirmed `sl ACUTE ILLNESS 07/28/2016 Patient [...] how does 04/26/2016 Appointment: Yaima Johnson WPtel: [address] [place], [place] [phone] ACUTE ILLNESS 04/26/2016 Patient Education: Patient Medication Summary Completed 04/26/2016 Appointment: Yaima Johnsontel: [address] [place], [place] [phone] [place] INJECTION 04/22/2016 Patient Education: Patient Medication Summary Completed 04/22/2016 Appointment: Yaima Johnson WPtel: [address] [place], [place] [phone] Stool lab 01/04/2016 Patient Education: Patient Medication Summary Completed 01/04/2016 [facility] Discussed that liver lesion and right kidney cyst are stable dating back to 2009 so likely benign and will recheck in 1year Check CMP and CBC 12/09/2015 Visit Plan[facility] Discussed that liver lesion and right kidney cyst are stable dating back to 2009 so likely benign and will recheck in 1year 12/09/2015 Appointment: Yaima Johnson WPtel: [address] [place], [place] [phone] [place] FOLLOW UP 12/09/2015 Patient Education: Patient [...] chest pain 09/10/2015 Appointment: Yaima Johnson WPtel: [address] [place], [place] [phone] ACUTE ILLNESS 09/10/2015 Patient Education: Patient Medication Summary Completed 09/10/2015 Appointment: Yaima Johnson WPtel: [address] [place], [place] [phone] [place] INJECTION 07/20/2015 Patient Education: Patient Medication Summary Completed 07/20/2015 Patient Education: Patient Medication Summary Completed 05/04/2015 Visit Plan: Observe left elbow for next 2 weeks and if not improving let us know Observe left leg bruising Can use voltaren gel to elbow Observe ribs Lidoderm patch for SI joint 04/23/2015 Appointment: Yaima Johnson WPtel: [address] [place], [place] [phone] [place] FOLLOW UP 04/23/2015 Patient Education: Patient Medication Summary Completed 04/23/2015 Patient Education: Patient Medication Summary Completed 04/20/2015 Visit Plan: Discussed CT results Ad d Miralax 1/2 cap every other day 03/24/2015 Visit Plan: Discussed CT results Ad d Miralax 1/2 cap every other day 03/24/2015 Appointment: Yaima Johnson WPtel: [address] [place], [place] [phone] 03/23 confirmed~sl FOLLOW UP 03/24/2015 Patient Education: Patient Medication Summary Completed 03/24/2015 Appointment: Yaima Johnson WPtel: [address] [place], [place] [phone] [place] INJECTION 03/09/2015 Patient Education: Patient Medication Summary Completed 03/09/2015 Visit Plan: Check CT scan of abdome n and pelvis with oral contrast Thoracic towel stretch 03/05/2015 Appointment: Yaima Johnson WPtel: [address] [place] [address] FOLLOW UP 03/05/2015 Patient Education: Patient Medication Summary Completed 03/05/2015 Referral: Richmond Berger WPtel: [address] [id number] Referral Initiated 02/23/2015 Visit Plan: Lab discussed--will [...] knee 02/19/2015 Appointment: Yaima Johnson WPtel: [address] [place] [address] 02/18/15 lm confirmed with cb FOLLOW UP 02/19/2015 Patient Education: Patient Medication Summary Completed 02/19/2015 Patient Education: Patient Medication Summary Completed 02/04/2015 Appointment: Yaima Johnson WPtel: [address] [place] [address] FOLLOW UP 01/06/2015 Visit Plan: Decrease levothyroxine to 50mcg daily Recheck TSH and Free T4 in 2mos then fwup 12/25/2014 Appointment: Yaima Johnson WPtel: [address] [place] [address] ACUTE ILLNESS 12/25/2014 Patient Education: Patient Medication Summary Completed 12/25/2014 Patient Education: [facility] - Saving [employer] - Levothyroxine - 18-64 - Dynamic Portal ID Completed 12/25/2014 Patient Education: Patient Medication Summary Completed 12/15/2014 Visit Plan: Observe left leg keep m eds same Has scheduled for 2nd epidural Recheck 3-4weeks after next epidural 11/26/2014 Appointment: Yaima Johnson WPtel: [address] [place], [place] [phone] 11/25 appt confirmed cn FOLLOW UP 11/26/2014 Patient Education: Patient Medication Summary Completed 11/26/2014 Visit Plan: Increase Protonix to 40 mg po BID Add Bentyl 10mg BID and up to TID prn Patient goes for back injection in 3 weeks Fwup 1 week after back injection 11/04/2014 Appointment: Yaima Johnson WPtel: [address] [place] [address] 11/03/ / 11/04 appt confirmed ACUTE ILLNESS 11/04/2014 Patient Education: Patient Medication Summary Completed 11/04/2014 Appointment: Yaima Johnson WPtel: [address] [place], [place] [phone] 10/14/14: doing better-canceled appt-lb ACUTE ILLNESS 10/15/2014 Visit Plan: hydration stop benadryl Observe and monitor Headaches Leg stretches, going to PT today-have them show stretches Notify if headaches, leg pain return/persist 09/01/2014 Appointment: Yaima Johnson WPtel: [address] [place] [address] ACUTE ILLNESS 09/01/2014 Patient Education: Patient Medication Summary Completed 09/01/2014 Patient Education: Patient Medication Summary Completed 08/05/2014 Care Plan: ASSAY OF FREE THYROXINE Ordered 08/05/2014 Care Plan: ASSAY THYROID STIM HORMONE Ordered 08/05/2014 Appointment: Yaima Johnson WPtel: [address] [place], [place] [phone] UA 07/10/2014 Patient Education: Patient Medication Summary Completed 07/10/2014 Patient Education: Patient Medication Summary Completed 07/03/2014 Care Plan: HEPATIC FUNCTION PANEL Ordered 07/03/2014 Visit Plan: Vaginal ring unable to be inserted do will have to stick with pill vaginally as prescribed for at least 6mo trial Saline nasal flushes and restart flonase 06/02/2014 Appointment: Yaima Johnson WPtel: [address] [place], [place] [phone] FOLLOW UP 06/02/2014 Patient Education: Patient Medication Summary Completed 06/02/2014 Appointment: Yaima Johnson WPtel: [address] [place], [place] [address] BP CHECK 05/26/2014 Patient Education: Patient Medication Summary Completed 05/26/2014 Patient Education: Patient Medication Summary Completed 05/22/2014 Appointment: Yaima Johnson WPtel: [address] [place] [address] BP CHECK 05/07/2014 Patient Education: Patient Medication Summary Completed 05/07/2014 Referral: Nitesh Avalos WPtel: [address] [place], [place] [phone] MRI Scheduled at [facility] 04/17 3pm Completed 04/30/2014 Appointment: Yaima Johnson WPtel: [address] [place], [place] [address] BP CHECK 04/15/2014 Visit Plan: Decrease premarin to 0. 3125mg for 1week then stop Restart estrogen vaginal tabs and Patient requests to see Dr. Restrepo for back but discussed at this time appears to need conservative management such as PT and epidurals Moniter BP 04/08/2014 Appointment: Yaima Johnson WPtel: [address] [place] [address] ACUTE ILLNESS 04/08/2014 Patient Education: Patient Medication Summary Completed 04/08/2014 Appointment: Yaima Johnson WPtel: [address] [place], [place] [phone] ACUTE ILLNESS 03/10/2014 Visit Plan: Thoracic stretches get y Skelaxin 800mg BID Use vimovo prn Use gemma prn 03/05/2014 Appointment: Yaima Johnson WPtel: [address] [place] [address] ACUTE ILLNESS 03/05/2014 Patient Education: Patient Medication Summary Completed 03/05/2014 Visit Plan: Saline nasal flushes pr n. Tylenol/Motrin prn headache. Notify if persists/symptoms worsening. Zithromax and Prednisone Supportive care. Rest, Fluids, Tylenol/Motrin prn fever or bodyaches. Notify if worsening symptoms. 07/29/2013 Appointment: Mimi Keenan WPtel: [address] [place] [address] FOLLOW UP 07/29/2013 Patient Education: Patient Medication Summary Completed 07/29/2013 Appointment: Mimi Keenan WPtel: [address] [place] [address] 05/22 patient called back and reschedule d 05/24 not set up yet ACUTE ILLNESS 05/27/2013 Visit Plan: Add miralax Cipro/Flagy l Pt has appointment with GI in NOV 03/20/2013 Appointment: Yaima Johnson WPtel: [address] [place] [address] ACUTE ILLNESS 03/20/2013 Patient Education: Patient Medication Summary Completed 03/20/2013 Visit Plan: Sary Mederos, ic e, voltaren gel TID 02/12/2013 Appointment: Yaima Johnson WPtel: [address] [place] [address] ACUTE ILLNESS 02/12/2013 Patient Education: Patient Medication [...] Oct 2012. 11/05/2012 Appointment: Lizzette Lozano WPtel: [address] [place] [address] ACUTE ILLNESS 11/05/2012 Patient Education: Patient Medication Summary Completed 11/05/2012 Visit Plan: Continue vimovo and Ske laxin and topical biofreeze Start PT May need MRI 10/04/2012 Appointment: Yaima Johnson WPtel: [address] [place] [address] FOLLOW UP 10/04/2012 Patient Education: Patient Medication Summary Completed 10/04/2012 Visit Plan: Change toprol back to b ystolic BP check in 3wks Continue to observe hands--no observed bruising today 09/24/2012 Appointment: Yaima Johnson WPtel: [address] [place] [address] 09/21 left message ACUTE ILLNESS 09/24/2012 Patient Education: Patient Medication Summary Completed 09/24/2012 Visit Plan: Proceed with EMG of RUE Continue vimovo and skelaxin May use Voltaren gel TID to elbow and wrist 05/10/2012 Appointment: Yaima Johnson WPtel: [address] [place] [address] 05/09 left voicemail ACUTE ILLNESS 05/10/2012 Patient [...] is improving 03/07/2012 Appointment: Yaima Johnson WPtel: [address] [place] [address] FOLLOW UP 03/07/2012 Patient Education: Patient Medication Summary Completed 03/07/2012 Visit Plan: Continue current dose C heck TSH, Free T4 in 2mos 02/01/2012 Appointment: Yaima Johnson WPtel: [address] [place] [address] FOLLOW UP 02/01/2012 Patient Education: Patient Medication Summary Completed 02/01/2012 Visit Plan: Levothyroxine 50mcg po daily 12/20/2011 Appointment: Yaima Johnson WPtel: [address] [place] [address] FOLLOW UP 12/20/2011 Patient Education: Patient Medication Summary Completed 12/20/2011 Visit Plan: Mupirocin topical and S eptra DS. 11/22/2011 Appointment: Lizzette Lozano WPtel: [address] [place] [address] ACUTE ILLNESS 11/22/2011 Patient Education: Patient Medication Summary Completed 11/22/2011 Appointment: Yaima Johnson WPtel: [address] [place] [address] 07/14/2011 Patient Education: Patient Medication Summary Completed 07/14/2011 Visit Plan: Finish current abx Greta r liquids to full liquids and then advance as tolerated If worsens will notify immediately Schedule with Dr. Berger for colonoscopy/EGD 07/11/2011 Appointment: Yaima Johnson WPtel: [address] [place] [address] ER Follow UP 07/11/2011 Patient Education: Patient Medication Summary Completed 07/11/2011 Visit Plan: Take treximet today and skelaxin at bedtime Add anusol cream for 1wk Discussed if colon continues to flare-up over the next 6mos will repeat colonoscopy 07/06/2011 Appointment: Yaima Johnson WPtel: [address] [place] [address] ACUTE ILLNESS 07/06/2011 Patient Education: Patient Medication Summary Completed 07/06/2011 Appointment: Yaima Johnson WPtel: [address] [place] [address] INJECTION 06/28/2011 Patient Education: Patient Medication Summary Completed 06/28/2011 Visit Plan: OMT done Increase Skela johann to TID Start PT Daily stretches 05/26/2011 Appointment: Yaima Johnson WPtel: [address] [place] [address] ACUTE ILLNESS 05/26/2011 Patient Education: Patient Medication Summary Completed 05/26/2011 Visit Plan: OMT done Daily stretche s, biofreeze Restart skelaxin 05/16/2011 Appointment: Yaima Johnson WPtel: [address] [place] [address] OMT 05/16/2011 Patient Education: Patient Medication Summary Completed 05/16/2011 Visit Plan: OMT done to back Stretc hes, moist heat and biofreeze Observe toenails 05/05/2011 Appointment: Yaima Johnson WPtel: [address] [place] [address] ACUTE ILLNESS 05/05/2011 Patient Education: Patient Medication Summary Completed 05/05/2011 Visit Plan: Finish Flagyl Continue Culturelle and add Levbid for 1more week 04/05/2011 Appointment: Yaima Johnson WPtel: [address] [place] [address] ER Follow UP 04/05/2011 Patient Education: Patient Medication Summary Completed 04/05/2011 Appointment: Lizzette Lozano WPtel: [address] [place] [address] ACUTE ILLNESS 03/25/2011 Appointment: Yaima Johnson WPtel: [address] [place] [address] UA 03/23/2011 Patient Education: Patient Medication Summary Completed 03/23/2011 Visit Plan: Recommend proceed with heart cath Will check PFTs 03/02/2011 Appointment: Yaima Johnson WPtel: [address] [place] [address] [place] FOLLOW UP 03/02/2011 Patient Education: Patient Medication Summary Completed 03/02/2011 Appointment: Yaima Johnson WPtel: [address] [place] [address] LAB 01/14/2011 Patient Education: Patient Medication Summary [...] cardiology appnt. 01/05/2011 Appointment: Lizzette Lozano WPtel: [address] [place] [address] ACUTE ILLNESS 01/05/2011 Patient Education: Patient Medication Summary Completed 01/05/2011 Visit Plan: Once again stressed imp ortance of using premarin vaginal cream routinely to see if helps urinary symptoms Will culture urine Will observe lipomas--discussed may see surgery for removal 11/16/2010 Appointment: Yaima Johnson WPtel: [address] [place] [address] ACUTE ILLNESS 11/16/2010 Patient Education: Patient Medication Summary Completed 11/16/2010 Visit Plan: Injection to bursa as a escobar Pt will continue to moniter BP and pulse off meds Repeat potassium level in 1wk 11/04/2010 Appointment: Yaima Johnson WPtel: [address] [place], [place] [phone] FOLLOW UP 11/04/2010 Patient Education: Patient Medication Summary Completed 11/04/2010 Visit Plan: Saline nasal flushes pr n. Tylenol/Motrin prn headache. Notify if persists/symptoms worsening. 08/05/2010 Appointment: Yaima Johnson WPtel: [address] [place], [place] [phone] [place] FOLLOW UP 08/05/2010 Patient Education: Patient Medication Summary Completed 08/05/2010 Visit Plan: Saline nasal flushes pr n. Tylenol/Motrin prn headache. Notify if persists/symptoms worsening. Nasacort AQ 1 spray each nostril BID 07/23/2010 Appointment: Yaima Johnsontel: [address] [place] [address] ACUTE ILLNESS 07/23/2010 Patient Education: Patient Medication Summary Completed 07/23/2010 Appointment: Yaima Johnson WPtel: [address] [place] [address] UA 07/05/2010 Patient Education: Patient Medication Summary Completed 07/05/2010 Appointment: Yaima Johnson WPtel: [address] [place] [address] BP CHECK 06/28/2010 Patient Education: Patient Medication Summary Completed 06/28/2010 Appointment: Yaima Johnson WPtel: [address] [place] [address] UA 06/14/2010 Appointment: Yaima Johnsontel: [address] [place] [address] BP CHECK 06/14/2010 Appointment: Yaima Johnson WPtel: [address] [place] [address] BP CHECK 06/14/2010 Patient Education: Patient Medication Summary Completed 06/14/2010 Patient Education: Patient Medication Summary Completed 06/14/2010 Appointment: Yaima Johnson WPtel: [address] [place] [address] BP CHECK 06/10/2010 Visit Plan: Decrease lisinopril hct to 10/12.5mg QD and moniter BP BP check in 2-3wks--if pulse is increasing will go back to bystolic See ENT to evaluate hoarseness 06/07/2010 Appointment: Yaima Johnsontel: [address] [place], [place] [phone] FOLLOW UP 06/07/2010 Patient Education: Patient Medication [...] (See printoff) 05/12/2010 Appointment: Lizzette Lozano WPtel: [address] [place] [address] ACUTE ILLNESS 05/12/2010 Patient Education: Patient Medication Summary Completed 05/12/2010 Visit Plan: Continue Bentyl at QA and HS Continue protonix but increase to BID for 5-7 days If any fever or signs of divertuclitis develop notify 04/27/2010 Appointment: Yaima Johnson WPtel: [address] [place], [place] [id number] 04/27/2010 Patient Education: Patient Medication Summary Completed 04/27/2010 Visit Plan: flako barajas. Refils . Alprazolam #90, -written RX 04/19/2010 Appointment: Lizzette Lozano WPtel: [address] [place], [place] [phone] ACUTE ILLNESS 04/19/2010 Patient Education: Patient Medication Summary Completed 04/19/2010 Appointment: Yaima Johnson WPtel: [address] [place], [place] [phone] US LAB 04/12/2010 Patient Education: Patient Medication Summary Completed 04/12/2010 Appointment: Yaima Johnson WPtel: [address] [place], [place] [phone] [place] UA 04/08/2010 Patient Education: Patient Medication Summary Completed 04/08/2010 Visit Plan: Use Treximet prn Start daily Macrobid Restart premarin vaginal cream Flu shot given 03/09/2010 Appointment: Yaima Johnson WPtel: [address] [place] [address] FOLLOW UP 03/09/2010 Patient Education: Patient Medication Summary Completed 03/09/2010 Appointment: Yaima Johnson WPtel: [address] [place] [address] BP CHECK 01/19/2010 Patient Education: Patient Medication Summary Completed 01/19/2010 Visit Plan: Check CT head Increase Bystolic to 5mg QD BP check in 2wks 01/04/2010 Appointment: Yaima Johnson WPtel: [address] [place] [address] ACUTE ILLNESS 01/04/2010 Patient Education: Patient Medication Summary Completed 01/04/2010 Appointment: Yaima Johnson WPtel: [address] [place] [address] BP CHECK 12/21/2009 Patient Education: Patient Medication Summary Completed 12/21/2009 Visit Plan: Change cenestin back to Premarin Cont to moniter BP BP check in 1wk 12/14/2009 Appointment: Yaima Johnson WPtel: [address] [place] [address] FOLLOW UP 12/14/2009 Patient Education: Patient Medication [...] a Z-pack. 11/23/2009 Appointment: [facility] [phone] [id number] [facility] FO[facility] UP 11/23/2009 Patient Education: Patient Medication Summary Completed 11/23/2009 [facility]ment[facility] [phone] [id number] [facility] 09/29/2009 Patient Education: Patient Medication Summary Completed 09/29/2009 App[facility]ment: [facility] [phone] [id number] [facility] 08/12/2009 Patient Education: Patient Medication Summary Completed 08/12/2009 Referral: Richmond Berger WPtel: [address] [id number] [place] Referral Appointment Requested Referral: Jayce Boyce WPtel: [address] [id number] [place] Referral Appointment Requested Referral: Naldo Johnson WPtel: [address] [id number] [place] Referral Initiated Referral: Naldo Johnson WPtel: [address] [id number] [place] Referral Appointment Requested Instructions Comment . BP re-check is 130 /90. Will [...] medications for back injury. (See printoff) . will notify if sym tpoms worsen on finger. Septra DS and mupirocin (pt thinks has some from last year) Will keep covered with band aid. Pt to continue Vimovo, skelaxin and biofreeze. Pt. states was unaware she should be taking these despite instructions to do so at Dr. Johnson visit on 05 Oct 2012. . Pt. was given Amox icillin 500 [...] if no improvement. Possibly a Z-pack. . hydration stop benadryl Observe and monitor Headaches Leg stretches, going to PT today-have them show stretches Notify if headaches, leg pain return/persist . Discussed CT resul ts Add Miralax 1/2 cap every other day . Saline nasal flush es prn. Tylenol/Motrin prn headache. Notify if persists/symptoms worsening. . Saline nasal flush es prn. Tylenol/Motrin prn headache. Notify if persists/symptoms worsening. . Saline nasal flush es prn. Tylenol/Motrin prn headache. Notify if persists/symptoms worsening. Nasacort AQ 1 spray each nostril BID . Spoke with Dr. Sacha banerjee's office [...] Pt. notififed of earlier cardiology appnt. . OMT done Daily stretches, biofreeze Restart skelaxin . Discussed CT resul ts Add Miralax 1/2 cap every other day . Injection to bursa as above Pt will continue to moniter BP and pulse off meds Repeat potassium level in 1wk . Start PT for both right leg sciatica and thoracics for chest pain . Observe left elbow for next 2 weeks and if not improving let us know Observe left leg bruising Can use voltaren gel to elbow Observe ribs Lidoderm patch for SI joint . Pt. was given Amox icillin 500 [...] if no improvement. Possibly a Z-pack. . Calmoseptine to ir ritated groin area [...] moniter BP BP check in 1wk . Add miralax Cipro/Flagyl Pt has appointment with GI in APR . Increase Protonix to 40mg po BID Add Bentyl 10mg BID and up to TID prn Patient goes for back injection in 3 weeks Fwup 1 week after back injection . Discussed core str engthening for both [...] lipomas--discussed may see surgery for removal . Decrease premarin to 0.3125mg for 1week [...] or bodyaches. Notify if worsening symptoms. . Thoracic stretches daily Skelaxin 800mg BID Use vimovo prn Use gemma prn . Decrease lisinopri l hct to 10/12.5mg QD and moniter BP BP check in 2-3wks--if pulse is increasing will go back to bystolic See ENT to evaluate hoarseness . Recommend proceed with heart cath Will check PFTs . culturelle note. Refils. Alprazolam #90, -written RX . OMT done to back Stretches, moist heat and biofreeze Observe toenails . Levothyroxine 50mc g po daily . Continue current d ose Check TSH, Free T4 in 2mos . Finish current abx Clear liquids to full liquids and then advance as tolerated If worsens will notify immediately Schedule with Dr. Berger for colonoscopy/EGD . Vaginal ring unabl e to be inserted do will have to stick with pill vaginally as prescribed for at least 6mo trial Saline nasal flushes and restart flonase . Tullicups Stretches, ice, voltaren gel TID . OMT done Increase Skelaxin to TID Start PT Daily stretches . Check CT head Increase Bystolic to 5mg QD BP check in 2wks . Check CT scan of a bdomen [...] Salin spray to nares--bleeding is improving . Proceed with EMG o f RUE Continue vimovo and skelaxin May use Voltaren gel TID to elbow and wrist . Mupirocin topical and Septra DS. . Saline nasal flush es prn. Tylenol/Motrin prn headache. Notify if persists/symptoms worsening. . Continue vimovo an d Skelaxin and topical biofreeze Start PT May need MRI . Observe left leg keep meds same Has scheduled for 2nd epidural Recheck 3-4weeks after next epidural . Use Treximet prn Start daily Macrobid Restart premarin vaginal cream Flu shot given . Take treximet toda y and skelaxin at bedtime Add anusol cream for 1wk Discussed if colon continues to flare-up over the next 6mos will repeat colonoscopy . Finish Flagyl Continue Culturelle and add Levbid for 1more week
--- OUTSIDE RECORDS SUMMARY | 2019-08-15 06:28 | XMS REPORT | Continuity of Care Document ---
Author Organization Unknown Address Unknown Phone Unavailable Allergies Active Description Code Type Severity Reaction Onset Reported/Identified Relationship to Patient Clinical Status Yes latex [id number] Drug Allergy Mild HIVES 05/26/2006 Yes Quinolones [id number] Drug Allerg y Unknown N/A 10/05/2006 Medications There is no data. Problems Date Dx Coded Attending Type Code Diagnosis Diagnosed By 12/13/2009 Ot 784.0 12/13/2009 Ot 786.50 12/13/2009 Ot 787.03 04/10/2010 Ot 883.0 04/10/2010 Ot E000.8 04/10/2010 Ot E849.0 04/10/2010 Ot E920.8 04/10/2010 Ot V06.1 03/08/2011 Ot 346.90 03/08/2011 Ot 401.9 03/08/2011 Ot 416.8 03/08/2011 Ot 530.81 03/08/2011 Ot 729.81 03/08/2011 Ot 786.09 03/08/2011 Ot 786.59 03/08/2011 Ot 790.29 03/08/2011 Ot V07.4 03/08/2011 Ot V58.69 03/12/2012 ABDOUL FLAHERTY APRN V04.81 FLU DX (3 YRS AND ABOVE, IM) 03/12/2012 ABDOUL FLAHERTY APRN V04.81 FLU DX (3 YRS AND ABOVE, IM) 03/18/2013 YAIMA JOHNSON DO Ot 787.91 DIARRHEA 06/08/2014 Ot 397.0 06/08/2014 Ot 414.01 06/08/2014 Ot 424.0 06/08/2014 Ot 785.1 06/08/2014 Ot 416.8 06/08/2014 Ot 784.0 06/08/2014 Ot 787.03 06/08/2014 Ot V81.5 06/08/2014 Ot 573.8 06/08/2014 Ot 786.09 06/08/2014 Ot 786.2 06/08/2014 Ot 473.9 06/08/2014 Ot 478.19 06/08/2014 Ot 729.82 06/08/2014 Ot V58.69 06/08/2014 Ot 276.8 06/08/2014 Ot V58.69 06/08/2014 Ot 401.9 06/08/2014 Ot V58.69 06/08/2014 Ot 729.82 06/08/2014 Ot 729.5 06/08/2014 Ot 786.50 06/08/2014 Ot 789.00 06/08/2014 Ot 397.0 06/08/2014 Ot 416.8 06/08/2014 Ot 786.50 06/08/2014 Ot 416.8 06/08/2014 Ot 785.1 06/08/2014 Ot 242.90 06/08/2014 Ot 780.79 06/08/2014 Ot 787.91 06/08/2014 CELE STEVENSON DO Ot 558.9 NONINF GASTROENTERIT NEC 06/08/2014 CELE STEVENSON DO Ot 787.01 NAUSEA WITH VOMITING 06/08/2014 CELE STEVENSON DO Ot 790.5 ABN SERUM ENZY LEVEL NEC 07/27/2014 Ot 397.0 07/27/2014 Ot 414.01 07/27/2014 Ot 424.0 07/27/2014 Ot 785.1 07/27/2014 Ot 416.8 07/27/2014 Ot 784.0 07/27/2014 Ot 787.03 07/27/2014 Ot V81.5 07/27/2014 Ot 573.8 07/27/2014 Ot 786.09 07/27/2014 Ot 786.2 07/27/2014 Ot 473.9 07/27/2014 Ot 478.19 07/27/2014 Ot 729.82 07/27/2014 Ot V58.69 07/27/2014 Ot 276.8 07/27/2014 Ot V58.69 07/27/2014 Ot 401.9 07/27/2014 Ot V58.69 07/27/2014 Ot 729.82 07/27/2014 Ot 729.5 07/27/2014 Ot 786.50 07/27/2014 Ot 789.00 07/27/2014 Ot 397.0 07/27/2014 Ot 416.8 07/27/2014 Ot 786.50 07/27/2014 Ot 416.8 07/27/2014 Ot 785.1 07/27/2014 Ot 242.90 07/27/2014 Ot 780.79 07/27/2014 Ot 787.91 07/27/2014 Ot 401.9 07/27/2014 Ot 780.79 07/27/2014 Ot 785.1 07/27/2014 Ot 786.50 07/27/2014 Ot V12.59 04/21/2015 JACK SHOOK, BRYAN Mena Ot S50.02XA CONTUSION OF LEFT ELBOW, INITIAL ENCOUNT 04/21/2015 JACK SHOOK, BRYAN Mena Ot S80.12XA CONTUSION OF LEFT LOWER LEG, INITIAL ENC 04/21/2015 JACK SHOOK, BRYAN Mena Ot W01.0XXA FALL SAME LEV FROM SLIP/TRIP W/O STRIKE 04/21/2015 JACK SHOOK, BRYAN Mena Ot Y92.012 BATHROOM OF SINGLE-FAMILY (PRIVATE) HOUS 04/21/2015 JACK SHOOK, BRYAN Mena Ot Y99.8 OTHER EXTERNAL CAUSE STATUS 04/22/2015 Ot 784.0 04/22/2015 Ot 787.03 04/22/2015 Ot V81.5 04/22/2015 Ot 573.8 04/22/2015 Ot 786.09 04/22/2015 Ot 786.2 04/22/2015 Ot 473.9 04/22/2015 Ot 478.19 04/22/2015 Ot 729.82 04/22/2015 Ot V58.69 04/22/2015 Ot 276.8 04/22/2015 Ot V58.69 04/22/2015 Ot 401.9 04/22/2015 Ot V58.69 04/22/2015 Ot 729.82 04/22/2015 Ot 729.5 04/22/2015 Ot 786.50 04/22/2015 Ot 789.00 04/22/2015 Ot 397.0 04/22/2015 Ot 416.8 04/22/2015 Ot 786.50 04/22/2015 Ot 416.8 04/22/2015 Ot 785.1 04/22/2015 Ot 242.90 04/22/2015 Ot 780.79 04/22/2015 Ot 787.91 04/22/2015 Ot 401.9 04/22/2015 Ot 780.79 04/22/2015 Ot 785.1 04/22/2015 Ot 786.50 04/22/2015 Ot V12.59 12/04/2015 YAIMA JOHNSON DO S Ot R16.0 HEPATOMEGALY, NOT ELSEWHERE CLASSIFIED 12/09/2015 EASTON JOHNSON DOLINE S Ot R16.0 HEPATOMEGALY, NOT ELSEWHERE CLASSIFIED 12/25/2015 EASTON JOHNSON DOLINE S Ot R16.0 HEPATOMEGALY, NOT ELSEWHERE CLASSIFIED 10/16/2016 Ot 242.90 THY ROTOX NOS NO CRISIS 10/16/2016 Ot 780.79 OTH MALAISE FATIGUE 10/16/2016 Ot 787.91 LUZ MARIA RRHEA 10/16/2016 Ot 401.9 HYPE RTENSION NOS 10/16/2016 Ot 780.79 OTH MALAISE FATIGUE 10/16/2016 Ot 785.1 PALP ITATIONS 10/16/[address] PAIN NOS 10/16/2016 Ot V12.59 HX- CIRCULATORY SYST DIS,NEC 10/16/2016 YAIMA JOHNSON DO S Ot R16.0 HEPATOMEGALY, NOT ELSEWHERE CLASSIFIED 01/11/2017 Ot 242.90 THY ROTOX NOS NO CRISIS 01/11/2017 Ot 780.79 OTH MALAISE FATIGUE 01/11/2017 Ot 787.91 LUZ MARIA RRHEA 01/11/2017 Ot 401.9 HYPE RTENSION NOS 01/11/2017 Ot 780.79 OTH MALAISE FATIGUE 01/11/2017 Ot 785.1 PALP ITATIONS 01/11/[address] PAIN NOS 01/11/2017 Ot V12.59 HX- CIRCULATORY SYST DIS,NEC 01/11/2017 EASTON JOHNSON DOLINE S Ot R16.0 HEPATOMEGALY, NOT ELSEWHERE CLASSIFIED 01/12/2017 Ot 242.90 THY ROTOX NOS NO CRISIS 01/12/2017 Ot 780.79 OTH MALAISE FATIGUE 01/12/2017 Ot 787.91 LUZ MARIA RRHEA 01/12/2017 Ot 401.9 HYPE RTENSION NOS 01/12/2017 Ot 780.79 OTH MALAISE FATIGUE 01/12/2017 Ot 785.1 PALP ITATIONS 01/12/[address] PAIN NOS 01/12/2017 Ot V12.59 HX- CIRCULATORY SYST DIS,NEC 01/12/2017 ORENDER DO, YAIMA S Ot R16.0 HEPATOMEGALY, NOT ELSEWHERE CLASSIFIED 01/13/2017 REBEL WILSON MD Ot Z12.31 ENCNTR SCREEN MAMMOGRAM FOR MALIGNANT NE 01/20/2017 REBEL WILSON MD Ot Z13.820 ENCOUNTER FOR SCREENING FOR OSTEOPOROSIS 01/25/2017 REBEL WILSON MD Ot Z13.820 ENCOUNTER FOR SCREENING FOR OSTEOPOROSIS 01/30/2017 REBEL WILSON MD, Ot Z12.31 ENCNTR SCREEN MAMMOGRAM FOR MALIGNANT NE 02/08/2017 REBEL WILSON MD, Ot Z13.820 ENCOUNTER FOR SCREENING FOR OSTEOPOROSIS 09/15/2017 Ot 787.91 LUZ MARIA RRHEA 09/15/2017 Ot 401.9 HYPE RTENSION NOS 09/15/2017 Ot 780.79 OTH MALAISE FATIGUE 09/15/2017 Ot 785.1 PALP ITATIONS 09/15/[address] PAIN NOS 09/15/2017 Ot V12.59 HX- CIRCULATORY SYST DIS,NEC 09/15/2017 ORENDVALORIE DO, YAIMA S Ot R16.0 HEPATOMEGALY, NOT ELSEWHERE CLASSIFIED 09/15/2017 REBEL WILSON MD Ot Z12.31 ENCNTR SCREEN MAMMOGRAM FOR MALIGNANT NE 09/15/2017 REBEL WILSON MD Ot Z13.820 ENCOUNTER FOR SCREENING FOR OSTEOPOROSIS 09/15/2017 Ot 787.91 LUZ MARIA RRHEA 09/15/2017 Ot 401.9 HYPE RTENSION NOS 09/15/2017 Ot 780.79 OTH MALAISE FATIGUE 09/15/2017 Ot 785.1 PALP ITATIONS 09/15/[address] PAIN NOS 09/15/2017 Ot V12.59 HX- CIRCULATORY SYST DIS,NEC 09/15/2017 ORENDER DO, YAIMA S Ot R16.0 HEPATOMEGALY, NOT ELSEWHERE CLASSIFIED 09/15/2017 REBEL WILSON MD Ot Z12.31 ENCNTR SCREEN MAMMOGRAM FOR MALIGNANT NE 09/15/2017 REBEL WILSON MD Ot Z13.820 ENCOUNTER FOR SCREENING FOR OSTEOPOROSIS 09/15/2017 Ot 787.91 LUZ MARIA RRHEA 09/15/2017 Ot 401.9 HYPE RTENSION NOS 09/15/2017 Ot 780.79 OTH MALAISE FATIGUE 09/15/2017 Ot 785.1 PALP ITATIONS 09/15/[address] PAIN NOS 09/15/2017 Ot V12.59 HX- CIRCULATORY SYST DIS,NEC 09/15/2017 ORENDER DO, YAIMA S Ot R16.0 HEPATOMEGALY, NOT ELSEWHERE CLASSIFIED 09/15/2017 REBEL WILSON MD Ot Z12.31 ENCNTR SCREEN MAMMOGRAM FOR MALIGNANT NE 09/15/2017 REBEL WILSON MD Ot Z13.820 ENCOUNTER FOR SCREENING FOR OSTEOPOROSIS 09/19/2017 Ot 787.91 LUZ MARIA RRHEA 09/19/2017 Ot 401.9 HYPE RTENSION NOS 09/19/2017 Ot 780.79 OTH MALAISE FATIGUE 09/19/2017 Ot 785.1 PALP ITATIONS 09/19/[address] PAIN NOS 09/19/2017 Ot V12.59 HX- CIRCULATORY SYST DIS,NEC 09/19/2017 ORENDER DO, YAIMA S Ot R16.0 HEPATOMEGALY, NOT ELSEWHERE CLASSIFIED 09/19/2017 REBEL WILSON MD Ot Z12.31 ENCNTR SCREEN MAMMOGRAM FOR MALIGNANT NE 09/19/2017 REBEL WILSON MD Ot Z13.820 ENCOUNTER FOR SCREENING FOR OSTEOPOROSIS 02/19/2019 Ot 401.9 HYPE RTENSION NOS 02/19/2019 Ot 780.79 OTH MALAISE FATIGUE 02/19/2019 Ot 785.1 PALP ITATIONS 02/19/[address] PAIN NOS 02/19/2019 Ot V12.59 HX- CIRCULATORY SYST DIS,NEC 02/19/2019 ORENDER DO, YAIMA S Ot R16.0 HEPATOMEGALY, NOT ELSEWHERE CLASSIFIED 02/19/2019 REBEL WILSON MD Ot Z12.31 ENCNTR SCREEN MAMMOGRAM FOR MALIGNANT NE 02/19/2019 REBEL WILSON MD Ot Z13.820 ENCOUNTER FOR SCREENING FOR OSTEOPOROSIS 02/19/2019 Ot Z12.31 ENC NTR SCREEN MAMMOGRAM FOR MALIGNANT NE 03/08/2019 FRAN SHOOK FACC, SONIA ALMANZAP CCDS Ot I07.1 RHEUMATIC TRICUSPID INSUFFICIENCY 03/08/2019 FRAN SHOOK FACC, SONIA ALMANZAP CCDS Ot I10 ESSENTIAL (PRIMARY) HYPERTENSION 03/08/2019 FRAN ALMANZAC, ALI FACP CCDS Ot R73.03 PREDIABETES 03/08/2019 FRAN SHOOK FACC, ALI FACP CCDS Ot Z86.79 PERSONAL HISTORY OF OTHER DISEASES OF 03/15/2019 FRAN SHOOK FACC, ALI FACP CCDS Ot I10 ESSENTIAL (PRIMARY) HYPERTENSION 03/15/2019 FRAN SHOOK FACC, ALI FACP CCDS Ot R07.89 OTHER CHEST PAIN 03/15/2019 FRAN SHOOK FACC, ALI FACP CCDS Ot R73.03 PREDIABETES 03/15/2019 FRAN SHOOK FACC, ALI FACP CCDS Ot Z86.79 PERSONAL HISTORY OF OTHER DISEASES OF 03/15/2019 FRAN SHOOK FACC, ALI FACP CCDS Ot I10 ESSENTIAL (PRIMARY) HYPERTENSION 03/15/2019 FRAN SHOOK FACC, ALI FACP CCDS Ot R07.89 OTHER CHEST PAIN 03/15/2019 FRAN SHOOK FACC, ALI FACP CCDS Ot R73.03 PREDIABETES 03/15/2019 [facility] F[facility] CCDS Ot Z86.79 PERSONAL HISTORY OF OTHER DISEASES OF 03/29/2019 FRAN SHOOK FACC, ALI FACP CCDS Ot I07.1 RHEUMATIC TRICUSPID INSUFFICIENCY 03/29/2019 FRAN SHOOK FACC, ALI FACP CCDS Ot I10 ESSENTIAL (PRIMARY) HYPERTENSION 03/29/2019 FRAN SHOOK FACC, ALI FACP CCDS Ot R73.03 PREDIABETES 03/29/2019 FRAN SHOOK FACC, ALI FACP CCDS Ot Z86.79 PERSONAL HISTORY OF OTHER DISEASES OF 04/01/2019 FRAN ALMANZAC, ALI FACP CCDS Ot I07.1 RHEUMATIC TRICUSPID INSUFFICIENCY 04/01/2019 FRAN SHOOK FACC, ALI FACP CCDS Ot I10 ESSENTIAL (PRIMARY) HYPERTENSION 04/01/2019 FRAN SHOOK FACC, ALI FACP CCDS Ot R73.03 PREDIABETES 04/01/2019 FRAN SHOOK FACC, ALI FACP CCDS Ot Z86.79 PERSONAL HISTORY OF OTHER DISEASES OF 04/03/2019 VIRGINIA GONSALVES DO Ot R06. 00 DYSPNEA, UNSPECIFIED 04/03/2019 VIRGINIA GONSALVES DO Ot R06. 89 OTHER ABNORMALITIES OF BREATHING 04/19/2019 MAJOR DO, VIRGINIA M Ot R06. 89 OTHER ABNORMALITIES OF BREATHING 04/22/2019 MAJOR DO, VIRGINIA M Ot R06. 00 DYSPNEA, UNSPECIFIED 04/22/2019 MAJOR DO, VIRGINIA M Ot R06. 83 SNORING 04/22/2019 VIRGINIA GONSALVES DO M Ot R06. 89 OTHER ABNORMALITIES OF BREATHING 04/25/2019 MAJOR DOVIRGINIA M Ot R06. 00 DYSPNEA, UNSPECIFIED 04/25/2019 MAJOR DO, VIRGINIA M Ot R06. 89 OTHER ABNORMALITIES OF BREATHING 04/26/2019 POPPYNDER , YAIMA S Ot Z78.0 ASYMPTOMATIC MENOPAUSAL STATE 04/29/2019 MAJOR DOVIRGINIA M Ot R06. 00 DYSPNEA, UNSPECIFIED 04/29/2019 MAJOR DO, VIRGINIA M Ot R06. 89 OTHER ABNORMALITIES OF BREATHING 05/14/2019 LUKASER DO YAIMA S Ot Z78.0 ASYMPTOMATIC MENOPAUSAL STATE 05/15/2019 VIRGINIA GONSALVES DO M Ot R06. 00 DYSPNEA, UNSPECIFIED 05/15/2019 MAJOR DO, VIRGINIA M Ot R06. 89 OTHER ABNORMALITIES OF BREATHING 05/16/2019 ODALYS SMITH YAIMA S Ot M85.80 OTH DISRD OF BONE DENSITY AND STRUCTURE, 05/16/2019 POPPYNDER , YAIMA S Ot Z13.820 ENCOUNTER FOR SCREENING FOR OSTEOPOROSIS 05/16/2019 LUKASER , YAIMA S Ot Z78.0 ASYMPTOMATIC MENOPAUSAL STATE 05/17/2019 VIRGINIA GONSALVES DO M Ot R06. 00 DYSPNEA, UNSPECIFIED 05/17/2019 MAJOR SMITH VIRGINIA M Ot R06. 89 OTHER ABNORMALITIES OF BREATHING 05/31/2019 ONELIA TRAN APRN Ot J45.909 UNSPECIFIED ASTHMA, UNCOMPLICATED 05/31/2019 ONELIA TRAN APRN Ot M79.89 OTHER SPECIFIED SOFT TISSUE DISORDERS 05/31/2019 ONELIA TRAN APRN Ot Z86.79 PERSONAL HISTORY OF OTHER DISEASES OF TH 06/04/2019 POPPYNDER , YAIMA S Ot M85.80 OTH DISRD OF BONE DENSITY AND STRUCTURE, 06/04/2019 POPPYNDER , YAIMA S Ot Z13.820 ENCOUNTER FOR SCREENING FOR OSTEOPOROSIS 06/04/2019 POPPYNDER DO, YAIMA S Ot Z78.0 ASYMPTOMATIC MENOPAUSAL STATE 06/06/2019 MARC ONELIA Tony APRN Ot J45.909 UNSPECIFIED ASTHMA, UNCOMPLICATED 06/06/2019 ONELIA TRAN APRN Ot M79.89 OTHER SPECIFIED SOFT TISSUE DISORDERS 06/06/2019 ONELIA TRAN APRN Ot Z86.79 PERSONAL HISTORY OF OTHER DISEASES OF TH 08/02/2019 W E03.9 Hypo thyroidism Orender, Yaima S. 08/02/2019 W I10 Essent ial (primary) hypertension Orender, Yaima S. 08/02/2019 W R73.9 Hype rglycemia, unspecified Orender, Yaima S. 08/02/2019 W E03.9 Hypo thyroidism Orender, Yaima S. 08/02/2019 W J45.909 Asthma Orender, Yaima S. 08/02/2019 W R59.0 Ivonne r lymphadenopathy Orender, Yaima S. 08/02/2019 W R73.9 Hype rglycemia, unspecified Orender, Yaima S. 08/02/2019 W Z23 PNEUMO COCCAL VACCINE Orender, Yaima S. Procedures There is no data. Results Test Result Range [id number] - 05/08/19 11:10 Serum or plasma urea nitrogen measurement (mass/volume ) 14 mg/dL 7-18 Serum or plasma creatinine measurement (mass/volume) 0.71 mg/dL 0.60-1.30 Serum or plasma urea nitrogen/creatinine mass ratio 20 NRG Serum or plasma creatinine measurement w ith calculation of estimated glomerular filtration rate > NRG Complete urinalysis with reflex to cultu re - 08/13/19 00:12 Urine color determination YELLOW NRG Urine clarity determination CLEAR NR G Urine pH measurement by test strip 5.5 5-9 Specific gravity of urine by test strip 1.015 1.016-1.022 Urine protein assay by test strip, semi-quantitative NEGATIVE NEGATIVE Urine glucose detection by automated test strip NE GATIVE NEGATIVE Erythrocytes detection in urine sediment by light micr oscopy TRACE-I NEGATIVE Urine ketones detection by automated test strip NE GATIVE NEGATIVE Urine nitrite detection by test strip NEGATIVE NEGATIVE Urine total bilirubin detection by test strip NEGA TIVE NEGATIVE Urine urobilinogen measurement by automated test strip (mass/volume) 0.2 mg/dL < = 1.0 Urine leukocyte esterase detection by dipstick 1+ NEGATIVE Automated urine sediment erythrocyte cou nt by microscopy (number/high power field) [HPF] NRG Automated urine sediment leukocyte count by microscopy (number/high power field) [HPF] NRG Bacteria detection in urine sediment by light microsco py TRACE NRG Crystals detection in urine sediment by light microsco py PRESENT NRG Casts detection in urine sediment by light microscopy NONE NRG Mucus detection in urine sediment by light microscopy NEGATIVE NRG Complete urinalysis with reflex to culture NO NRG Amorphous sediment detection in urine sediment by ligh t microscopy RARE BRODERICK URATES NRG Complete blood count (CBC) with automate d white blood cell (WBC) differential - 08/13/19 00:13 Blood leukocytes automated count (number/volume) 5.7 10*3/uL 4.3-11.0 Blood erythrocytes automated count (number/volume) 5.14 10*6/uL 4.35-5.85 Venous blood hemoglobin measurement (mass/volume) 13.6 g/dL 11.5-16.0 Blood hematocrit (volume fraction) 42 % 35-52 Automated erythrocyte mean corpuscular volume 82 [ foz_us] 80-99 Automated erythrocyte mean corpuscular h emoglobin (mass per erythrocyte) 27 pg 25-34 Automated erythrocyte mean corpuscular h emoglobin concentration measurement (mass/volume) 33 g/dL 32-36 Automated erythrocyte distribution width ratio 15. 6 % 10.0- 14.5 Automated blood platelet count (count/volume) 223 10*3/uL 130-400 Automated blood platelet mean volume measurement 10.3 [foz_us] 7.4-10.4 Automated blood neutrophils/100 leukocytes 54 % 42-75 Automated blood lymphocytes/100 leukocytes 32 % 12-44 Blood monocytes/100 leukocytes 9 % 0-12 Automated blood eosinophils/100 leukocytes 4 % 0-10 Automated blood basophils/100 leukocytes 1 % 0-10 Blood neutrophils automated count (number/volume) 3.1 10*3 1.8-7.8 Blood lymphocytes automated count (number/volume) 1.8 10*3 1.0-4.0 Blood monocytes automated count (number/volume) 0. 5 10*3 0.0-1.0 Automated eosinophil count 0.3 10*3/uL 0 .0-0.3 Automated blood basophil count (count/volume) 0.0 10*3/uL 0.0-0.1 Comprehensive metabolic panel - 08/13/19 00:13 Serum or plasma sodium measurement (moles/volume) 142 mmol/L 135-145 Serum or plasma potassium measurement (moles/volume) 3.8 mmol/L 3.6-5.0 Serum or plasma chloride measurement (moles/volume) 105 mmol/L 98-107 Carbon dioxide 26 mmol/L 21-32 Serum or plasma anion gap determination (moles/volume) 11 mmol/L 5-14 Serum or plasma urea nitrogen measurement (mass/volume ) 18 mg/dL 7-18 Serum or plasma creatinine measurement (mass/volume) 0.82 mg/dL 0.60-1.30 Serum or plasma urea nitrogen/creatinine mass ratio 22 NRG Serum or plasma creatinine measurement w ith calculation of estimated glomerular filtration rate > NRG Serum or plasma glucose measurement (mass/volume) 103 mg/dL 70-105 Serum or plasma calcium measurement (mass/volume) 9.7 mg/dL 8.5-10.1 Serum or plasma total bilirubin measurement (mass/volu me) 0.2 mg/dL 0.1-1.0 Serum or plasma alkaline phosphatase silvio surement (enzymatic activity/volume) 65 U/L 40-136 Serum or plasma aspartate aminotransfera se measurement (enzymatic activity/volume) 17 U/L 5-34 Serum or plasma alanine aminotransferase measurement (enzymatic activity/volume) 15 U/L 0-55 Serum or plasma protein measurement (mass/volume) 7.3 g/dL 6.4-8.2 Serum or plasma albumin measurement (mass/volume) 4.2 g/dL 3.2-4.5 CALCIUM CORRECTED 9.5 mg/dL 8.5-10.1 Serum or plasma C reactive protein measu rement (mass/volume) - 08/13/19 00:13 Serum or plasma C reactive protein measurement (mass/v olume) 0.52 mg/dL 0.00-0.50 Encounters ACCT No. Visit Date/Time Discharge Status Pt. Type Provider Facility Loc./Unit Complaint [id number] 03/14/2014 11:04:00 03/14/2014 23:59: 59 CLS Outpatient ABDOUL FLAHERTY APRN [id number] 04/22/2013 11:32:00 04/22/2013 23:59: 59 CLS Outpatient REYNOLD ROSEMARY ABDOUL Schaefer [id number] 08/12/2019 23:14:00 01:32:00 DIS Emergency JACK SHOOK, BRYAN Mena [facility] ER POSS ABD HERNIA [id number] 05/14/2019 12:12:00 23:59:59 CLS Outpatient YAIMA JOHNSON DO [facility] RAD ASYMPTOMATIC ME NOPAUSAL STATE [id number] 05/08/2019 11:08:00 23:59:59 CLS Outpatient ONELIA TRAN APRN [facility] RAD DYSPNEA [id number] 04/30/2019 13:26:00 23:59:59 CLS Preadmit ONELIA TRAN APRN [facility] RAD DYSPNEA [id number] 04/22/2019 14:30:00 23:59:59 CLS Outpatient VIRGINIA GONSALVES DO [facility] RT DYSPNEA,OTHER ABN OF BR EATHING [id number] 04/22/2019 14:28:00 15:05:00 DIS Outpatient VIRGINIA GONSALVES DO [facility] SLEEP DYSPNEA,ABNORMALITIES O F BREATHING [id number] 04/01/2019 09:11:00 23:59:59 CLS Outpatient VIRGINIA GONSALVES DO [facility] RAD DYSPNEA [id number] 02/20/2019 08:56:00 23:59:59 CLS Outpatient SONIA PETERS MD, FACC, FACP CC DS [facility] CARD CHEST DISCO MFORT [id number] 02/19/2019 07:30:00 23:59:59 CLS Outpatient SONIA PETERS MD, FACC, FACP CC DS [facility] CARD CHEST DISCO MFORT [id number] 01/19/2017 10:29:00 23:59:59 CLS Outpatient REBEL WILSON MD [facility] RAD Z13.820 [id number] 01/12/2017 10:33:00 017 23:59:59 CLS Outpatient REBEL WILSON MD [facility] RAD Z13.820 [id number] 12/03/2015 07:18:00 016 23:59:59 CLS Outpatient YAIMA JOHNSON DO [facility] RAD HEPATOMEGALY,PE LVIECTASIS [id number] 04/21/2015 10:27:00 015 11:30:00 DIS Emergency BRYAN SANTIAGO MD [facility] ER LEFT ARM PAIN [id number] 06/08/2014 17:58:00 015 20:53:00 DIS Emergency CELE STEVENSON DO Vi [facility] ER V/D [id number] 12/25/2012 09:22:00 013 00:01:00 DIS Outpatient YAIMA JOHNSON DO [facility] LAB DIARRHEA [id number] 09/06/2019 09:15:00 P ONELIA Farmer APRN [facility] RAD DYSPNEA,SLEEP DISORDER,HYPER SOMNIA [id number] 08/13/2019 07:38:[address] Outpatient BRYAN SANTIAGO MD [facility] RAD LLQ PAIN,ABD HERNIA [id number] 01/10/2018 09:58:00 Document Registration [id number] 07/24/2014 08:31:00 Document Registration [id number] 03/19/2013 00:00:00 Document Registration [id number] 12/16/2011 14:48:00 Document Registration [id number] 04/08/2011 12:54:00 Document Registration [id number] 03/16/2011 17:51:00 Document Registration [id number] 03/08/2011 08:11:00 Document Registration [id number] 02/21/2011 09:57:00 Document Registration [id number] 01/05/2011 14:59:00 Document Registration [id number] 12/21/2010 14:28:00 Document Registration [id number] 11/09/2010 06:49:00 Document Registration [id number] 10/21/2010 06:39:00 Document Registration [id number] 10/13/2010 17:58:00 Document Registration [id number] 08/27/2010 10:11:00 Document Registration [id number] 06/30/2010 12:44:00 Document Registration [id number] 04/28/2010 08:34:00 Document Registration [id number] 04/10/2010 22:24:00 Document Registration [id number] 01/06/2010 11:37:00 Document Registration [id number] 12/13/2009 14:35:00 Document Registration [id number] 03/23/2009 11:51:00 Document Registration [id number] 03/20/2009 12:31:00 Document Registration 10/18/15 04/12/2019 07:55:52 04/12/2019 23:5 9:59 [facility] Outpatient Yaima Johnson [id number] 08/02/2019 10:27:30 Document Registration
== END 2019-08-13 01:32 | disposition home or self-care (01) ==
LOC: EDUNIT# 23:12 → ER 23:14
DX: R10.32 Left lower quadrant pain (principal); K21.9 Gastro-esophageal reflux disease without esophagitis; E03.9 Hypothyroidism, unspecified; Z91.040 Latex allergy status; Z88.8 Allergy status to other drugs, medicaments and biological substances; Z82.49 Family history of ischemic heart disease and other diseases of the circulatory system
CPT/HCPCS: 36415; 80053; 81000; 85025; 86141

== ENCOUNTER → 2019-08-13 | Outpatient (CLI) | payer MEDICARE, OTHER ==
--- NOTE | 2019-08-13 09:13 | Diagnostic Imaging Report ---
PROCEDURE: Ultrasound abdomen complete. TECHNIQUE: Multiple real-time grayscale images were obtained of the abdomen in various projections. INDICATION: Left lower quadrant pain, abdominal hernia. COMPARISON: Abdominal ultrasound of 12/03/2015 FINDINGS: The liver is borderline enlarged measuring 18.6 cm in length. It demonstrates mild diffuse increased echogenicity without focal lesion. Portal vein is patent with normal direction of flow. Cholecystectomy. The common bile duct measures up to 0.3 cm in diameter. No intrahepatic biliary dilation. The visualized portions of the pancreas are normal. Portions of the head and tail are obscured by overlying bowel gas. The kidneys are normal in size. No hydronephrosis, shadowing calculi, or suspicious mass lesion. The spleen is normal in size measuring 11 cm in length and without focal lesion. The aorta and IVC are normal in caliber where seen. In the left lower quadrant, there is potential defect rectus musculature/abdominal wall that may represent hernia. IMPRESSION: 1. Potential small hernia within the left lower quadrant anterior abdominal wall. There is no fluid within the potential hernia sac. If there are clinical concerns for bowel obstruction, CT of the abdomen with IV contrast is the study of choice for best characterization. 2. Borderline hepatomegaly with mild diffuse hepatic steatosis. 3. Cholecystectomy. Dictated by: Dictated on workstation # [id number]
== END ==
LOC: RAD 07:38
PROVIDERS: ATTEND Family Medicine
DX: K43.9 Ventral hernia without obstruction or gangrene (principal); Z90.49 Acquired absence of other specified parts of digestive tract
CPT/HCPCS: 76700

== ENCOUNTER → 2019-09-06 | Outpatient (CLI) | payer MEDICARE, OTHER ==
[~2019-09-06] MED LIST changes: +HOLD METFORMIN - RECEIVED CONTRAST 20 ML VIAL IV SCH; +IOHEXOL 350 MG/ML 100 ML (OMNIPAQUE 350) VIAL IV ONE; +NS 100 ML (IVPB) BAG IV ONE
[2019-09-06 08:44] LABS: BUN/CREATININE RATIO 16; CREATININE SERUM 0.73 MG/DL (0.60-1.30); GFR ESTIMATED > 60
--- NOTE | 2019-09-06 09:12 | Diagnostic Imaging Report ---
PROCEDURE: CT chest with contrast only. TECHNIQUE: Multiple contiguous axial images were obtained through the chest after administration of intravenous contrast. Auto Exposure Controls were utilized during the CT exam to meet ALARA standards for radiation dose reduction. INDICATION: Dyspnea, sleep disorder, hypersomnia. COMPARISON: 05/08/2019 and 10/05/2006 FINDINGS: No pathologically enlarged lymph nodes within the chest. No aneurysmal dilatation or dissection associated with the thoracic aorta. The heart is within normal limits in size. No pericardial effusion. No pleural effusion. No pneumothorax. Minimal dependent atelectasis. Mild groundglass opacity within the right upper lobe is again identified, appearing unchanged since the prior examination, though new since 2006. The lungs are otherwise clear of focal pulmonary opacity. The trachea is patent. Cholecystectomy. Hypodensity within the right hepatic lobe is noted, which was present in 2007, therefore, benign. The visualized upper abdomen is otherwise unremarkable. Scattered osseous degenerative changes without acute osseous abnormality. IMPRESSION: Persistent groundglass opacity within the right upper lobe, unchanged from the prior exam. This is favored to relate to minimal scarring versus pneumonitis. Low-grade neoplasm such as bronchoalveolar cell carcinoma not totally excluded though felt less likely. Recommend a follow-up CT of the chest in one year to ensure stability. No new pulmonary nodules or opacities. Additional findings as above. Dictated by: Dictated on workstation # [id number]
== END ==
LOC: RAD 08:14
PROVIDERS: ATTEND Nurse Practitioner Family
DX: J45.909 Unspecified asthma, uncomplicated (principal); G47.10 Hypersomnia, unspecified; R91.8 Other nonspecific abnormal finding of lung field
CPT/HCPCS: 36415; 71260; 82565; 84520

== ENCOUNTER → 2020-09-10 | Outpatient (CLI) | payer MEDICARE, OTHER ==
[~2020-09-10] MED LIST changes: -HOLD METFORMIN - RECEIVED CONTRAST 20 ML VIAL IV SCH; -IOHEXOL 350 MG/ML 100 ML (OMNIPAQUE 350) VIAL IV ONE; -NS 100 ML (IVPB) BAG IV ONE
[2020-09-10 08:43] LABS: BUN/CREATININE RATIO 21; CREATININE SERUM 0.72 MG/DL (0.60-1.30); GFR ESTIMATED > 60
[2020-09-10 08:44] LABS: BASOPHILS # (AUTO) 0.1 10^3/uL (0.0-0.1); BASOPHILS % (AUTO) 1 % (0-10); EOSINOPHILS # (AUTO) 0.4 10^3/uL (0.0-0.3); EOSINOPHILS % (AUTO) 6 % (0-10); HEMATOCRIT 45 % (35-52); HEMOGLOBIN 14.4 g/dL (11.5-16.0); LYMPHOCYTES # (AUTO) 1.3 10^3/uL (1.0-4.0); LYMPHOCYTES % (AUTO) 22 % (12-44); MEAN CORPUSCULAR HEMOGLOBIN 28 pg (25-34); MEAN CORPUSCULAR HGB CONC 32 g/dL (32-36); MEAN CORPUSCULAR VOLUME 86 fL (80-99); MEAN PLATELET VOLUME 10.4 fL (9.0-12.2); MONOCYTES # (AUTO) 0.5 10^3/uL (0.0-1.0); MONOCYTES % (AUTO) 8 % (0-12); NEUTROPHILS # (AUTO) 3.9 10^3/uL (1.8-7.8); NEUTROPHILS % (AUTO) 63 % (42-75); PLATELET COUNT 235 10^3/uL (130-400); WHITE BLOOD COUNT 6.1 10^3/uL (4.3-11.0)
[2020-09-10 09:01] LABS: ALANINE AMINOTRANSFERASE 27 U/L (0-55); ALBUMIN 4.2 GM/DL (3.2-4.5); ALKALINE PHOSPHATASE 64 U/L (40-136); BILIRUBIN,TOTAL 0.3 MG/DL (0.1-1.0); CALCIUM 9.3 MG/DL (8.5-10.1); CARBON DIOXIDE 22 MMOL/L (21-32); CHLORIDE 107 MMOL/L (98-107); CHOLESTEROL 153 MG/DL (< 200); GLUCOSE 118 MG/DL (70-105); HDL CHOLESTEROL 55 MG/DL (40-60); POTASSIUM 3.8 MMOL/L (3.6-5.0); SODIUM 142 MMOL/L (135-145); TOTAL PROTEIN 7.4 GM/DL (6.4-8.2); TRIGLYCERIDES 63 MG/DL (<150); VLDL CHOLESTEROL 13 MG/DL (5-40)
[2020-09-10 09:22] LABS: FREE T4 (FREE THYROXINE) 1.03 NG/DL (0.70-1.48)
== END ==
LOC: LABNPT 08:34
PROVIDERS: ATTEND Family Medicine
DX: E03.9 Hypothyroidism, unspecified (principal); I10 Essential (primary) hypertension; R73.9 Hyperglycemia, unspecified
CPT/HCPCS: 36415; 80053; 80061; 83036; 84439; 84443; 85025

== ENCOUNTER → 2020-09-10 | Outpatient (CLI) | payer MEDICARE, OTHER ==
[~2020-09-10] MED LIST changes: +HOLD METFORMIN - RECEIVED CONTRAST 20 ML VIAL IV SCH; +IOHEXOL 350 MG/ML 100 ML (OMNIPAQUE 350) VIAL IV ONE; +NS 100 ML (IVPB) BAG IV ONE
[2020-09-10 07:36] LABS: CREATININE SERUM 0.72 MG/DL (0.60-1.30); GFR ESTIMATED > 60
[2020-09-10 07:37] LABS: BUN/CREATININE RATIO 21
--- NOTE | 2020-09-10 08:29 | Diagnostic Imaging Report ---
EXAMINATION: CT Chest with intravenous contrast. TECHNIQUE: Multiple contiguous axial images were obtained through the chest after the uneventful administration of intravenous contrast. All CT scans use one or more of the following dose optimizing techniques: automated exposure control, MA and/or KvP adjustment based on a patient size and exam type, or iterative reconstruction. HISTORY: ABN FINDINGS ON DIAGNOSTIC IMAGING OF LUNG COMPARISON: CT chest 09/06/2019 FINDINGS: Thyroid: The thyroid is normal. Mediastinum: Heart size is normal without significant pericardial effusion. The aorta is normal in caliber. There are a few prominent mediastinal lymph nodes which are not pathologically enlarged and not appears minimally changed from 09/06/2019. Lungs and airways: The lungs are clear without consolidation, pleural effusion, or pneumothorax. A stable peripheral wedge-shaped groundglass opacity along the posterolateral right upper lobe is unchanged from 09/06/2019 and this may represent atelectasis or scarring. No new suspicious pulmonary lesion. There is bibasilar atelectasis or scarring. The airways are normal. Upper abdomen: The subphrenic structures are normal. Musculoskeletal: Degenerative changes of the spine without suspicious osseous lesion or compression fracture. IMPRESSION: 1. Persistent groundglass opacity within the posterior lateral right upper lobe is favor to represent atelectasis or scarring in this long-term stability. No further follow-up is indicated. 2. No other acute abnormality in the chest. Dictated by: Dictated on workstation # [id number]
== END ==
LOC: RAD 07:45
PROVIDERS: ATTEND Nurse Practitioner Family
DX: R91.8 Other nonspecific abnormal finding of lung field (principal)
CPT/HCPCS: 71260; 82565; 84520

== ENCOUNTER 2020-09-25 12:46 | Outpatient (CLI) | payer MEDICARE, OTHER ==
[~2020-09-25 12:46] MED LIST changes: -HOLD METFORMIN - RECEIVED CONTRAST 20 ML VIAL IV SCH; -IOHEXOL 350 MG/ML 100 ML (OMNIPAQUE 350) VIAL IV ONE; -NS 100 ML (IVPB) BAG IV ONE
== END 2020-09-25 13:17 | disposition home or self-care (01) ==
LOC: SLEEP 12:46
PROVIDERS: ATTEND Nurse Practitioner Family
DX: G47.30 Sleep apnea, unspecified (principal); G47.50 Parasomnia, unspecified; G47.10 Hypersomnia, unspecified; J45.909 Unspecified asthma, uncomplicated; E03.9 Hypothyroidism, unspecified; I10 Essential (primary) hypertension; K21.9 Gastro-esophageal reflux disease without esophagitis; R91.8 Other nonspecific abnormal finding of lung field
CPT/HCPCS: G0399

== ENCOUNTER → 2021-08-13 | Outpatient (CLI) | payer MEDICARE, OTHER | LOC: CARD 11:16 | PROVIDERS: ATTEND Nurse Practitioner Family | DX: I27.21 Secondary pulmonary arterial hypertension (principal); I36.1 Nonrheumatic tricuspid (valve) insufficiency | CPT/HCPCS: 93306 ==

== ENCOUNTER → 2021-08-13 | Outpatient (CLI) | payer MEDICARE, OTHER ==
--- NOTE | 2021-08-13 13:34 | Diagnostic Imaging Report ---
INDICATION: Routine screening Comparison is made with prior mammogram 01/17/2020 and 01/11/2019. 2-D and 3-D bilateral screening mammography was performed with CAD. Both breasts are heterogeneously dense, limiting the sensitivity of mammography. The overall parenchymal pattern appears stable. No dominant mass or malignant-appearing microcalcifications are seen. Occasional benign calcifications. Axillae are unremarkable. IMPRESSION: No mammographic features suspicious for malignancy are identified. ACR BI-RADS Category 2: Benign findings. Result letter will be mailed to the patient. Note: At least 10% of breast cancer is not imaged by mammography. BI-RADS Category 2 Dictated by: Dictated on workstation # [id number]
== END ==
LOC: RAD 11:15
PROVIDERS: ATTEND Family Medicine
DX: Z12.31 Encounter for screening mammogram for malignant neoplasm of breast (principal)
CPT/HCPCS: 77063; 77067

== ENCOUNTER → 2021-09-24 | Outpatient (CLI) | payer MEDICARE ==
[~2021-09-24] MED LIST changes: +CATHETER FLUSH 10 ML SYR IVP PRN; +REGADENOSON 0.4 MG/5 ML SYR (LEXISCAN) IV ONE
[2021-09-24 09:25] VITALS: BP 163/97
[2021-09-24 09:30] VITALS: BP 169/95
--- NOTE | 2021-09-24 17:09 | STRESS TEST ---
DATE OF SERVICE: 09/24/2021 RESTING AND POST REGADENOSON TECHNETIUM-99M TETROFOSMIN SPECT CT IMAGING ORDERING PHYSICIAN: Reyna Joy APRN. PRIMARY PHYSICIAN: Dr. Johnson. CLINICAL DIAGNOSIS: Chest discomfort. Baseline images were carried out after injection of 9.98 mCi of technetium-99m Tetrofosmin. This was followed by 0.4 mg Regadenoson and 28.6 mCi of technetium-99m Tetrofosmin for stress imaging. The electrocardiogram showed sinus rhythm at baseline. It did not change significantly with the Regadenoson infusion. Review of images at rest and following stress does not indicate any distinct perfusion defects consistent with significant myocardial ischemia or infarction. Gated images show a normal to hyperdynamic left ventricular systolic function without any regional wall motion abnormality. Left ventricular ejection fraction is calculated to be 79%. CONCLUSIONS: 1. No evidence of any significant myocardial ischemia or infarction on this study. 2. Normal to hyperdynamic left ventricular systolic function with a calculated ejection fraction of 79%. Job ID: [id number] DocumentID: [id number] Dictated Date: 09/24/2021 14:52:10 Dental Equipment Installer And Servicer Date: 09/24/2021 17:08:45 Dictated By: SONIA PETERS MD, MA, FACP, FACC,
== END ==
LOC: CARD 07:29
PROVIDERS: ATTEND Nurse Practitioner Family
DX: R07.89 Other chest pain (principal)
CPT/HCPCS: 78452; 93017; A9502

== ENCOUNTER 2021-11-09 09:00 | Day surgery (SDC) | payer MEDICARE ==
[2021-11-09] VITALS (10 sets, daily range): BP systolic 135–153; BP diastolic 70–90
[~2021-11-09] VITALS: Ht 160 cm; Wt 81.4 kg
[2021-11-09 08:17] LABS: HEMATOCRIT 44 % (35-52); HEMOGLOBIN 14.2 g/dL (11.5-16.0); MEAN CORPUSCULAR HEMOGLOBIN 28 pg (25-34); MEAN CORPUSCULAR HGB CONC 33 g/dL (32-36); MEAN CORPUSCULAR VOLUME 85 fL (80-99); MEAN PLATELET VOLUME 9.9 fL (9.0-12.2); PLATELET COUNT 217 10^3/uL (130-400); WHITE BLOOD COUNT 5.5 10^3/uL (4.3-11.0)
[2021-11-09 08:34] LABS: PROTHROMBIN TIME PATIENT 13.1 SEC (12.2-14.7)
[2021-11-09 08:43] LABS: ALBUMIN 4.2 GM/DL (3.2-4.5); BILIRUBIN,TOTAL 0.3 MG/DL (0.1-1.0); CREATININE SERUM 0.68 MG/DL (0.60-1.30); POTASSIUM 3.7 MMOL/L (3.6-5.0); TOTAL PROTEIN 7.4 GM/DL (6.4-8.2)
[~2021-11-09 09:00] MED LIST changes: -CATHETER FLUSH 10 ML SYR IVP PRN; +FLUT16SP22 NSEACH; +HEParin (CATH LAB) 2,000 ML IV ONE; +LEVO5TAB12 PO; +LIDOCAINE 1% INJ 20 ML VIAL ONE; +NS IV 1000 ML 1,000 ML IV SCH; +NS IV 1000 ML 1,000 ML ONE; -REGADENOSON 0.4 MG/5 ML SYR (LEXISCAN) IV ONE
[2021-11-09] MEDS ORDERED: MIDAZOLAM 5 MG/5 ML (VERSED) VIAL ONE (09:51)
[2021-11-09] MEDS ORDERED: fentaNYL INJ 100 MCG/2 ML AMP ONE (09:51)
--- NOTE | 2021-11-09 10:13 | Cardiac Procedure Note-CS/ASA ---
Pre-Procedure Note Pre-Op Procedure Note H&P Reviewed The H&P was reviewed, patient examined and no changes noted. Date H&P Reviewed: Nov 09, 2021 Time H&P Reviewed: 10:13 Conscious Sedation Pre-Proced Time 10:13 ASA Score 3 For ASA 3 and 4: Consider anesthesia and medical clearance. Also, for patients with a history of failed moderate sedation consider anesthesia. Airway Lungs Heart ASA score ASA 1: a normal healthy patient ASA 2: a patient with a mild systemic disease (mid diabetes, controlled hypertension, obesity ASA 3: a patient with a severe systemic disease that limits activity (angina, COPD, prior Myocardial infarction) ASA 4: a patient with an incapacitating disease that is a constant threat to life (CHF, renal failure) ASA 5: a moribund patient not expected to survive 24 hrs. (ruptured aneurysm) ASA 6: a declared brain- patient whose organs are being harvested. For emergent operations, add the letter E after the classification Mallampati Classification Grade 2 Sedation Plan Analgesia, Amnesia, Plan communicated to team members, Discussed options with patient/fam, Discussed risks with patient/fam The patient is an appropriate candidate to undergo the planned procedure, sedation, and anesthesia. The patient immediately re-assessed prior to indication. SONIA PETERS MD FACP FAC CCDS Nov 09, 2021 10:13
--- NOTE | 2021-11-09 11:41 | Discharge Inst-Cardiology ---
Discharge Inst-Cardiac Discharge Medications Continued Medications: Fluticasone Propionate (Fluticasone Propionate) 50 Mcg/Actuation [place].susp 2 SPRAY NSEACH DAILY, EA Levocetirizine Dihydrochloride (Levocetirizine Dihydrochloride) 5 Mg Tablet 5 MG PO EVENING, TAB Levothyroxine Sodium (Levothyroxine Sodium) 50 Mcg Tablet 50 MCG PO DAILY, TAB Metoprolol Succinate (Metoprolol Succinate) 25 Mg Tab.er.24h 25 MG PO DAILY, TAB Pantoprazole Sod (Protonix Tab) 40 Mg Tab 40 MG PO DAILY SONIA PETERS MD [facility] CCDS Nov 09, 2021 11:41
--- NOTE | 2021-11-09 11:42 | Discharge Inst-Post CATH ---
Discharge Inst-CATH/EP Post Cardiac Cath/EP D/C Inst Follow Up/Plan F/u with Dr Chase in 2 weeks ACTIVITY * Go Home directly and rest. * Limit activity of the leg (or wrist if it was used) for 7 days including aerobics, swimming, jogging, bicycling, etc. * Restrict stair-climbing for 7 days if possible, if not, climb up with your n on-cath leg, then bring together on the same step. * Avoid lifting, pushing, pulling or excessive movement of the affected ex tremity for 7 days. * Customary sexual activity may be resumed after 2 days-use caution not to use a position that strains or causes pain to the affected extremity. * No driving for 24 hours. * NO SMOKING. * Avoid straining for bowel movements for 7 days. * Gentle walking on level ground is allowed. * Returning to work will depend on the type of procedure and the results. Your doctor will discuss this with you. CALL YOUR DOCTOR FOR ANY OF THE FOLLOWING: *If bleeding from the puncture site occurs- Apply gentle pressure to site with clean cloth and call your doctor or EMS. * If a knot or lump forms under the skin, increases in size, or causes pain. * If bruising appears to be worsening or moving further down your leg instead of disappearing. * Temperature above 101 F. CARE OF YOUR GROIN INCISION; * Bruising or purple discoloration of the skin near the puncture site is common. * You may shower only, no bathtub bathing for 5 days. Be careful to avoid slipping as your leg may feel stiff. * If a closure device was used on your femoral artery, please see the attached guide regarding care of the device and your leg. * Leave dressing on FOR 24 hours. CARE OF YOUR WRIST INCISION; * Bruising or purple discoloration of the skin near the puncture site is common. * You may shower. * DO NOT submerge wrist. * Leave dressing on FOR 24 hours. SONIA CHASE MD [facility] CCDS Nov 09, 2021 11:42
[2021-11-09] MEDS ORDERED: NS IV 1000 ML 1,000 ML IV SCH (11:45)
[2021-11-09] MEDS ORDERED: PATIENT MAY USE OWN MEDS, ALL PO SCH (11:45)
--- NOTE | 2021-11-09 13:59 | CARDIAC CATHETERIZATION ---
DATE OF SERVICE: 11/09/2021 RIGHT HEART CATHETERIZATION REPORT HISTORY OF PRESENT ILLNESS: The patient is a 66-year-old lady who has pulmonary hypertension that was seen on echocardiography. Her manager of software, Dr. Beebe has recommended right heart catheterization. Informed consent was obtained. PROCEDURE IN DETAIL: [facility] in a fasting state. Right groin was prepared and draped in the usual sterile fashion. Lidocaine 1% was used for local anesthesia. Modified Seldinger technique was used to advance a 7-Arabic sheath into the right femoral vein. A 7-Arabic Sweeny-Jerry catheter was used for right heart catheterization and for measurement of oxygen saturation in various heart chambers. Mean pulmonary capillary wedge pressure was 12 mmHg. Pulmonary artery pressure was 41/17 with a mean of 27 mmHg. Right ventricular pressure was 39/13. Mean right atrial pressure was 8 mmHg. Cardiac output by thermodilution was 5.37. Cardiac index by thermodilution was 2.91. Pulmonary vascular resistance was calculated to be 4.34 Wood units. There was no evidence of any significant intracardiac shunt, based on oxygen saturation measurements in the right heart chambers. Following removal of the Sweeny-Jerry catheter, manual pressure was used to achieve hemostasis after the sheath was removed. She tolerated the procedure well. CONCLUSION: 1. Pulmonary wedge pressure 12 mmHg. 2. Pulmonary artery pressure 41/17 with mean 27 mmHg. 3. Mean right atrial pressure 8 mmHg. 4. Pulmonary vascular resistance 4.34 Wood units. 5. Cardiac index by thermodilution 2.91. Job ID: [id number] DocumentID: [id number] Dictated Date: 11/09/2021 11:26:07 Machine Repair Person Date: 11/09/2021 13:58:39 Dictated By: SONIA PETERS MD, MA, FACP, FACC,
== END 2021-11-09 13:40 | disposition home or self-care (01) ==
LOC: CATH 09:00 → SDC 11:00 → CATH 13:40
PROVIDERS: ATTEND Internal Medicine Cardiovascular Disease
DX: I27.21 Secondary pulmonary arterial hypertension (principal); R07.89 Other chest pain; I10 Essential (primary) hypertension; G47.33 Obstructive sleep apnea (adult) (pediatric); K21.9 Gastro-esophageal reflux disease without esophagitis; E11.65 Type 2 diabetes mellitus with hyperglycemia; E03.9 Hypothyroidism, unspecified; I49.3 Ventricular premature depolarization; I49.1 Atrial premature depolarization; R60.0 Localized edema; I47.1 Supraventricular tachycardia; Z98.890 Other specified postprocedural states; Z79.899 Other long term (current) drug therapy; Z99.89 Dependence on other enabling machines and devices; Z79.890 Hormone replacement therapy
CPT/HCPCS: 80053; 80061; 85027; 85610; 85730; 87081; 93005; 93451; C1894; 36415

== ENCOUNTER 2021-12-10 16:42 | Emergency (ER) | payer MEDICARE ==
[~2021-12-10] VITALS: Ht 160 cm; Wt 80.3 kg
[~2021-12-10 16:42] MED LIST changes: -HEParin (CATH LAB) 2,000 ML IV ONE; -LIDOCAINE 1% INJ 20 ML VIAL ONE; -NS IV 1000 ML 1,000 ML IV SCH; -NS IV 1000 ML 1,000 ML ONE
[2021-12-10] MEDS ORDERED: ONDANSETRON 4 MG/2 ML (SDV) Z0FRAN IVP ONE (17:15)
[2021-12-10 17:20] LABS: BASOPHILS # (AUTO) 0.1 10^3/uL (0.0-0.1); BASOPHILS % (AUTO) 1 % (0-10); EOSINOPHILS # (AUTO) 0.1 10^3/uL (0.0-0.3); EOSINOPHILS % (AUTO) 1 % (0-10); HEMATOCRIT 50 % (35-52); HEMOGLOBIN 15.8 g/dL (11.5-16.0); LYMPHOCYTES # (AUTO) 1.1 10^3/uL (1.0-4.0); LYMPHOCYTES % (AUTO) 15 % (12-44); MEAN CORPUSCULAR HEMOGLOBIN 27 pg (25-34); MEAN CORPUSCULAR HGB CONC 32 g/dL (32-36); MEAN CORPUSCULAR VOLUME 85 fL (80-99); MONOCYTES # (AUTO) 0.5 10^3/uL (0.0-1.0); MONOCYTES % (AUTO) 6 % (0-12); NEUTROPHILS # (AUTO) 5.7 10^3/uL (1.8-7.8); NEUTROPHILS % (AUTO) 77 % (42-75); PLATELET COUNT 307 10^3/uL (130-400); WHITE BLOOD COUNT 7.5 10^3/uL (4.3-11.0)
[2021-12-10 17:24] LABS: ALBUMIN 4.8 GM/DL (3.2-4.5)
[2021-12-10] MEDS ORDERED: PROM12.566 RC (17:24)
[2021-12-10 17:25] LABS: CHLORIDE 101 MMOL/L (98-107); POTASSIUM 3.8 MMOL/L (3.6-5.0); SODIUM 139 MMOL/L (135-145)
--- NOTE | 2021-12-10 17:25 | ED GI ---
General Chief Complaint: Abdominal/GI Problems Stated Complaint: V, STOMACH PAIN Nursing Triage Note: PT AMBULATE TO ROOM 08 WITH C/O ABD PAIN, N/V. PT REPORTS VOMITING BLUE VOMIT AT 1330 TODAY AND GREEN VOMIT IN THE ED WAITING ROOM BATHROOM. PT STATES THAT SHE IS CONCERNED THAT IT MAY BE RELATED TO A MEDICATION INTERACTION REACTION BETWEEN SINGULAIR AND SILDENAFIL. Source of Information: Patient Exam Limitations: No Limitations (IVORY CRANE APRN) History of Present Illness Date Seen by Provider: Dec 10, 2021 Time Seen by Provider: 17:21 Initial Comments To ER with reports of an episode of blue emesis today at about 1 PM. She then vomited a second time in the waiting room here. She has some abdominal cramping. She is concerned this may be related to an interaction between Singulair which she had formerly been off of and then restarted last night in conjunction with sildenafil which she was prescribed for pulmonary hypertension in November of this year. She denies fevers or chills or diarrhea. She also drink milk from a new carton last night and thinks maybe that is the cause of her symptoms. Timing/Duration: 1-2 Days Severity/Quality: Moderate Location: Generalized Abdomen Radiation: No Radiation Activities at Onset: None Associated Symptoms: Nausea/Vomiting (IVORY CRANE APRN) Allergies and Home Medications Allergies Coded Allergies: latex (Unverified Allergy, Mild, HIVES, 05/26/06) Quinolones (Verified Allergy, Unknown, 10/05/06) gemifloxacin (Verified Allergy, Unknown, 11/09/21) peanut (Verified Allergy, Unknown, 11/09/21) pseudoephedrine (Verified Allergy, Unknown, 11/09/21) strawberry (Verified Allergy, Unknown, 11/09/21) Patient Home Medication List Home Medication List Reviewed: Yes (IVORY CRANE APRN) Fluticasone Propionate (Fluticasone Propionate) 50 Mcg/Actuation [place].susp, 2 SPRAY NSEACH DAILY, (Reported) Entered as Reported by: SARABJIT ROMO on 11/09/21822 Levocetirizine Dihydrochloride (Levocetirizine Dihydrochloride) 5 Mg Tablet, 5 MG PO EVENING, (Reported) Entered as Reported by: SARABJIT ROMO on 11/09/21822 Levothyroxine Sodium (Levothyroxine Sodium) 50 Mcg Tablet, 50 MCG PO DAILY, (Reported) Entered as Reported by: RANJANA COOL on 04/21/15 1039 Metoprolol Succinate (Metoprolol Succinate) 25 Mg Tab.er.24h, 25 MG PO DAILY, (Reported) Entered as Reported by: RANJANA COOL on 04/21/15 1039 Pantoprazole Sod (Protonix Tab) 40 Mg Tab, 40 MG PO DAILY, (Reported) Entered as Reported by: OFELIA SHERWOOD on 03/08/11 1402 Promethazine HCl (Promethazine Suppository) 12.5 Mg Supp.rect, 12.5 MG RC TID PRN for NAUSEA/VOMITING Prescribed by: IVORY CRANE on 12/10/21 1724 Review of Systems Review of Systems Constitutional: see HPI EENTM: No Symptoms Reported Respiratory: No Symptoms Reported Cardiovascular: No Symptoms Reported Gastrointestinal: See HPI, Abdominal Pain Genitourinary: No Symptoms Reported Musculoskeletal: no symptoms reported Skin: no symptoms reported Psychiatric/Neurological: No Symptoms Reported Endocrine: No Symptoms Reported Hematologic/Lymphatic: No Symptoms Reported (IVORY CRANE APRN) Past Lkskwfz-Gcaksr-Radjvy Hx Patient Social History Tobacco Use?: No Smoking Status: Never a Smoker Smokeless Tobacco Frequency: Never a User Use of E-Cig and/or Vaping dev: No Use of E-Cig and/or Vaping Italo: Never a User Substance use?: No Alcohol Use?: No Pt feels they are or have been: No (IVORY CRANE APRN) Seasonal Allergies Seasonal Allergies: Yes (IVORY CRANE APRN) Past Medical History Surgeries: Yes (pelvic repair after hyst) Abdominal, Adenoidectomy, Bowel Surgery, Breast, Cardiac, Gallbladder, Hysterectomy, Orthopedic, Tonsillectomy, Tubal Ligation Respiratory: No Cardiac: Yes (SVT--HAD ABLATION) Neurological: Yes Headaches /Migraines Reproductive Disorders: Yes Gastrointestinal: Yes (CYST ON LIVER AND A BLOOD SPOT ON LIVER) Abdominal Hernia, Gastroesophageal Reflux, Diverticulosis, Hiatal Hernia Musculoskeletal: Yes (spinal stenosis, sees Dr. Johnson) Arthritis Endocrine: Yes Hypothyroidsim Cancer: No Psychosocial: No Integumentary: No Blood Disorders: Yes (IVORY CRANE APRN) Family Medical History Heart Disease, Cancer, Psychiatric Problems (IVORY CRANE APRN) Physical Exam Vital Signs Vital Signs - First Documented 12/10/21 16:48 Temp 36.2 Pulse 109 Resp 17 B/P (MAP) 159/114 (129) O2 Delivery Room Air (BRYAN SANTIAGO MD) Vital Signs Capillary Refill : Less Than 3 Seconds (IVORY CRANE APRN) Height/Weight/BMI Height: 5'3" Weight: 170lbs. oz. 77.734953sd; 31.00 BMI Method:Stated General Appearance: WD/WN, no apparent distress HEENT: PERRL/EOMI, normal ENT inspection Respiratory: no respiratory distress, no accessory muscle use Cardiovascular: regular rate, rhythm, no murmur Gastrointestinal: normal bowel sounds, non tender, soft Extremities: normal range of motion, non-tender Neurologic/Psychiatric: alert, normal mood/affect, oriented x 3 Skin: normal color, warm/dry (IVORY CRANE APRN) Progress/Results/Core Measures Results/Orders Lab Results Laboratory Tests Test 12/10/21 16:54 12/10/21 17:14 12/10/21 17:28 Range/Units White Blood Count 7.5 4.3-11.0 10^3/uL Red Blood Count 5.82 H 3.80-5.11 10^6/uL Hemoglobin 15.8 11.5-16.0 g/dL Hematocrit 50 35-52 % Mean Corpuscular Volume 85 80-99 fL Mean Corpuscular Hemoglobin 27 25-34 pg Mean Corpuscular Hemoglobin Concent 32 32-36 g/dL Red Cell Distribution Width 14.3 10.0-14.5 % Platelet Count 307 130-400 10^3/uL Mean Platelet Volume 10.0 9.0-12.2 fL Immature Granulocyte % (Auto) 1 % Neutrophils (%) (Auto) 77 H 42-75 % Lymphocytes (%) (Auto) 15 12-44 % Monocytes (%) (Auto) 6 0-12 % Eosinophils (%) (Auto) 1 0-10 % Basophils (%) (Auto) 1 0-10 % Neutrophils # (Auto) 5.7 1.8-7.8 10^3/uL Lymphocytes # (Auto) 1.1 1.0-4.0 10^3/uL Monocytes # (Auto) 0.5 0.0-1.0 10^3/uL Eosinophils # (Auto) 0.1 0.0-0.3 10^3/uL Basophils # (Auto) 0.1 0.0-0.1 10^3/uL Immature Granulocyte # (Auto) 0.1 0.0-0.1 10^3/uL Sodium Level 139 135-145 MMOL/L Potassium Level 3.8 3.6-5.0 MMOL/L Chloride Level 101 98-107 MMOL/L Carbon Dioxide Level 24 21-32 MMOL/L Anion Gap 14 5-14 MMOL/L Blood Urea Nitrogen 10 7-18 MG/DL Creatinine 0.75 0.60-1.30 MG/DL Estimat Glomerular Filtration Rate 87 BUN/Creatinine Ratio 13 Glucose Level 124 H 70-105 MG/DL Calcium Level 10.3 H 8.5-10.1 MG/DL Corrected Calcium 8.5-10.1 MG/DL Total Bilirubin 0.7 0.1-1.0 MG/DL Aspartate Amino Transf (AST/SGOT) 27 5-34 U/L Alanine Aminotransferase (ALT/SGPT) 35 0-55 U/L Alkaline Phosphatase 72 40-136 U/L Total Protein 8.5 H 6.4-8.2 GM/DL Albumin 4.8 H 3.2-4.5 GM/DL Urine Color YELLOW Urine Clarity CLEAR Urine pH 5.5 5-9 Urine Specific [place] >=1.030 1.016-1.022 Urine Protein 1+ H NEGATIVE Urine Glucose (UA) NEGATIVE NEGATIVE Urine Ketones 1+ H NEGATIVE Urine Nitrite NEGATIVE NEGATIVE Urine Bilirubin NEGATIVE NEGATIVE Urine Urobilinogen 0.2 < = 1.0 MG/DL Urine Leukocyte Esterase 1+ H NEGATIVE Urine RBC (Auto) 1+ H NEGATIVE Urine RBC 0-2 /HPF Urine WBC 2-5 /HPF Urine Squamous Epithelial Cells 2-5 /HPF Urine Crystals NONE /LPF Urine Bacteria NEGATIVE /HPF Urine Casts NONE /LPF Urine Mucus NEGATIVE /LPF Urine Culture Indicated NO (BRYAN SANTIAGO MD) Medications Given in ED Current Medications Medications Dose Ordered Sig/Bailee Route Start Time Stop Time Status Last Admin Dose Admin Ondansetron HCl 8 mg ONCE ONCE IVP 12/10/21 17:15 12/10/21 17:16 DC 12/10/21 17:20 8 MG Promethazine HCl 12.5 mg ONCE ONCE IVP 12/10/21 18:15 12/10/21 18:16 DC 12/10/21 18:14 12.5 MG (BRYAN SANTIAGO MD) Vital Signs/I&O 12/10/21 16:48 Temp 36.2 Pulse 109 Resp 17 B/P (MAP) 159/114 (129) O2 Delivery Room Air (BRYAN SANTIAGO MD) Blood Pressure Mean: 129 Departure Communication (Admissions) 1724-patient specifically requests Tigan suppositories for nausea control at home. Looks like these have been taken off of the market quite some time ago. I will prescribe promethazine suppository. (IVORY CRANE APRN) Impression Primary Impression: Nausea and vomiting Disposition: HOME, SELF-CARE Condition: Stable Departure-Patient Inst. Decision time for Depature: 17:23 (IVORY CRANE APRN) Referrals: ARVIND MORROW DO (PCP/Family) Primary Care Physician Patient Instructions: No Instuctions Given Add. Discharge Instructions: All discharge instructions reviewed with patient and/or family. Voiced understanding. Scripts Promethazine HCl (Promethazine Suppository) 12.5 Mg Supp.rect 12.5 MG RC TID PRN for NAUSEA/VOMITING, #10 SUPP.RECT Prov: IVORY CRANE APRN 12/10/21 ATTENDING PHYSICIAN NOTE: I was physically present as attending physician in the emergency department during the care of this patient, but I was not directly involved in the decision making or delivery of care for this patient. (BRYAN SANTIAGO MD) IVORY CRANE APRN Dec 10, 2021 17:24 BRYAN SANTIAGO MD Dec 10, 2021 18:34
[2021-12-10 17:26] LABS: CALCIUM 10.3 MG/DL (8.5-10.1)
[2021-12-10 17:27] LABS: GLUCOSE 124 MG/DL (70-105); TOTAL PROTEIN 8.5 GM/DL (6.4-8.2)
[2021-12-10 17:28] LABS: CARBON DIOXIDE 24 MMOL/L (21-32)
[2021-12-10 17:29] LABS: BILIRUBIN,TOTAL 0.7 MG/DL (0.1-1.0)
[2021-12-10 17:30] LABS: ALKALINE PHOSPHATASE 72 U/L (40-136)
[2021-12-10 17:31] LABS: CREATININE SERUM 0.75 MG/DL (0.60-1.30); GFR ESTIMATED 87
[2021-12-10 17:32] LABS: BUN/CREATININE RATIO 13
[2021-12-10 17:34] LABS: ALANINE AMINOTRANSFERASE 35 U/L (0-55)
[2021-12-10 17:34] LABS: BILIRUBIN,URINE NEGATIVE (NEGATIVE); CLARITY,URINE CLEAR; COLOR,URINE YELLOW; GLUCOSE, URINE (UA) NEGATIVE (NEGATIVE); KETONES,URINE 1+ (NEGATIVE); LEUKOCYTE ESTERASE ,URINE 1+ (NEGATIVE); NITRITE,URINE NEGATIVE (NEGATIVE); PH,URINE 5.5 (5-9); PROTEIN,URINE 1+ (NEGATIVE)
[2021-12-10 17:46] LABS: BACTERIA,URINE NEGATIVE /HPF; RBC,URINE 0-2 /HPF
[2021-12-10] MEDS ORDERED: PROMETHAZINE INJ 25 MG/ML (PHENERGAN) AMP IVP ONE (18:15)
[2021-12-10 18:18] VITALS: BP 137/84
== END 2021-12-10 18:18 | disposition home or self-care (01) ==
LOC: EDUNIT# 16:42 → ER 16:45
DX: R11.2 Nausea with vomiting, unspecified (principal); Z91.040 Latex allergy status
CPT/HCPCS: 36415; 80053; 81000; 85025

== ENCOUNTER → 2022-08-19 | Outpatient (CLI) | payer MEDICARE ==
[~2022-08-19] MED LIST changes: +PROM12.566 RC
--- NOTE | 2022-08-19 16:49 | Diagnostic Imaging Report ---
INDICATION: Routine screening. COMPARISON: Prior mammograms from 08/13/2021 and 01/17/2020. EXAMINATION: 2D and 3D bilateral screening mammography was performed with CAD. The current study was also evaluated with a Computer Aided Detection (CAD) system. FINDINGS: Both breasts are heterogeneously dense, limiting the sensitivity of mammography. The parenchymal pattern is stable. There are benign calcifications. No mass or malignant-appearing microcalcifications are seen. Axillae are unremarkable. IMPRESSION: No mammographic features suspicious for malignancy are identified. ACR BI-RADS Category 2: Benign findings. Result letter will be mailed to the patient. Note: At least 10% of breast cancer is not imaged by mammography. Dictated by: Dictated on workstation # [id number]
== END ==
LOC: RAD 11:21
PROVIDERS: ATTEND Nurse Practitioner Family
DX: Z12.31 Encounter for screening mammogram for malignant neoplasm of breast (principal)
CPT/HCPCS: 77063; 77067